=== PATIENT | female | born 1970 | race Caucasian/White ===

== ENCOUNTER 2016-11-11 06:48 | Emergency (ER) | payer OTHER ==
[2016-11-11] MEDS ORDERED: SODIUM CHLORIDE 0.9% 500 ML IV STA (07:19)
[2016-11-11] MEDS ORDERED: SODIUM CHLORIDE 0.9% 1,000 ML IV STA (07:19)
[2016-11-11 07:26] LABS: Glucose,Whole Blood 245 mg/dL (75-99)
--- NOTE | 2016-11-11 07:35 | ED ---
General Adult HPI - General Chief complaint: Altered Mental Status Stated complaint: confusion Time Seen by Provider: 11/11/16 07:14 Source: patient, RN notes reviewed, old records reviewed Mode of arrival: wheelchair Limitations: altered mental status - History of Present Illness Initial comments: This is a 46-year-old female to the ER for evaluation of altered mental status, weakness. Patient's history of CVA, new CVA versus CVA systems symptoms are greater than 2 days old patient. Patient's main complaint appears to be dizziness, lightheadedness and weakness. She states she saw her family doctor 2 days ago, symptoms persisted, she was prescribed an antibiotic but not getting a varix still complaining of drainage and pain in her ears, and just overall weakness. Episodic fevers no chills, no travel history no nausea vomiting or diarrhea. No new specific neurological deficits, no cough congestion, mild sore throat - Related Data Home Medications Medication Instructions Recorded Confirmed metFORMIN HCL 1,000 mg PO BID 05/12/14 07/30/16 Fenofibrate [Lofibra] 160 mg PO HS 03/02/15 07/30/16 Pregabalin [Lyrica] 150 mg PO BID 06/25/15 07/30/16 Atenolol [Tenormin] 50 mg PO HS 01/15/16 07/30/16 Cholecalciferol [Vitamin D3] 5,000 unit PO DAILY 01/15/16 07/30/16 INSULIN LISPRO (humaLOG) [humaLOG See Protocol SQ AC-TID 01/15/16 07/30/16 (formulary)] Insulin Glargine [Lantus] 22 unit SQ HS 01/15/16 07/30/16 ALPRAZolam 1 - 2 mg PO HS 03/24/16 07/30/16 Folic Acid 1 mg PO HS 03/24/16 07/30/16 Aspirin 81 mg PO HS 03/25/16 07/30/16 Atorvastatin [Lipitor] 20 mg PO HS 03/25/16 07/30/16 DULoxetine HCL [Cymbalta] 60 mg PO DAILY 04/13/16 07/30/16 Clopidogrel [Plavix] 75 mg PO HS 07/30/16 07/30/16 HYDROcodone/APAP 10-325MG [[place] 1 tab PO HS PRN 07/30/16 07/30/16 10-325] HYDROcodone/APAP 5-325MG [[place] 5] 1 tab PO TID PRN 07/30/16 07/30/16 Hydrochlorothiazide 25 mg PO DAILY 07/30/16 07/30/16 lamoTRIgine 200 mg PO BID 07/30/16 07/30/16 Previous Rx's Medication Instructions Recorded Citalopram Hydrobromide [CeleXA] 40 mg PO DAILY #1 tab 03/10/15 Lisinopril [Zestril] 5 mg PO DAILY #30 tablet 04/18/16 Amoxic-Pot Clav 875-125Mg 1 tab PO Q12HR #14 tablet 11/11/16 [Augmentin 875-125] Allergies Allergy/AdvReac Type Severity Reaction Status Date / Time Fish Containing Products Allergy Unknown Verified 11/11/16 06:59 Iodinated Contrast Media - Allergy throat Verified 11/11/16 06:59 Oral and swelling [Iodinated Contrast Media - IV Dye] Sulfa (Sulfonamide Allergy throat Verified 11/11/16 06:59 Antibiotics) swelling sulfamethoxazole Allergy throat Verified 11/11/16 06:59 [From Septra] swelling trimethoprim [From Junra] Allergy throat Verified 11/11/16 06:59 swelling NUTS Allergy Unknown Uncoded 11/11/16 06:59 Review of Systems ROS Statement: Those systems with pertinent positive or pertinent negative responses have been documented in the HPI. ROS Other: All systems not noted in ROS Statement are negative. 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 and the patient apparently has been ambulatory, diabetes mellitus insulin-dependent, hypertension, hyperlipidemia, fibromyalgia, obstructive sleep apnea, MS, questionable hypercoagulable disease, anxiety, depression, obesity History of Any Multi-Drug Resistant Organisms: None Reported Past Surgical History: Section, Cholecystectomy, Heart Catheterization With Stent, Hysterectomy, Tubal Ligation, Uterine Ablation Additional Past Surgical History / Comment(s): vein stripping right leg, radio frequency ablation of right back-02/22/2015, four stents on 04/03/16 and one on march 05 Past Anesthesia/Blood Transfusion Reactions: No Reported Reaction Date of Last Stent Placement:: 2003 Past Psychological History: Anxiety, Depression Additional Psychological History / Comment(s): pt. states that she sees a counselor for her depression Smoking Status: Current every day smoker Past Alcohol Use History: None Reported Additional Past Alcohol Use History / Comment(s): Patient is a smoker of a half a pack of cigarettes per day for 25 years. She denies any medical marijuana, marijuana, street drug or alcohol use. Patient is on disability. She lives at home with her and 2 children. She does have a dog in the home. No recent travel. Past Drug Use History: None Reported - Past Family History Father Family Medical History: Congestive Heart Failure (CHF), Coronary Artery Disease (CAD), Diabetes Mellitus Mother Family Medical History: Cancer, Hypertension, Respiratory Disorder Additional Family Medical History / Comment(s): emphysema, colon CA General Exam Limitations: altered mental status General appearance: alert, in no apparent distress Head exam: Present: atraumatic, normocephalic, normal inspection Eye exam: Present: normal appearance, PERRL, EOMI. Absent: scleral icterus, conjunctival injection, periorbital swelling ENT exam: Present: normal exam, mucous membranes moist Neck exam: Present: normal inspection. Absent: tenderness, meningismus, lymphadenopathy Respiratory exam: Present: normal lung sounds bilaterally. Absent: respiratory distress, wheezes, rales, rhonchi, stridor Cardiovascular Exam: Present: regular rate, normal rhythm, normal heart sounds. Absent: systolic murmur, diastolic murmur, rubs, gallop, clicks GI/Abdominal exam: Present: soft, normal bowel sounds. Absent: distended, tenderness, guarding, rebound, rigid Extremities exam: Present: normal inspection, full ROM, normal capillary refill. Absent: tenderness, pedal edema, joint swelling, calf tenderness Back exam: Present: normal inspection Neurological exam: Present: alert, oriented X3, CN II-XII intact Psychiatric exam: Present: normal affect, normal mood Skin exam: Present: warm, dry, intact, normal color. Absent: rash Course Vital Signs 11/11/16 11/11/16 11/11/16 06:53 07:10 08:08 Temperature 98.4 F Pulse Rate 69 64 62 Respiratory 16 18 16 Rate Blood Pressure 180/89 176/86 162/86 O2 Sat by Pulse 99 95 96 Oximetry - Reevaluation(s) Reevaluation #1: 11/11/16 07:35 Patient is not candidate for TPA secondary to CVA symptoms greater than one day Reevaluation #2: 11/11/16 08:55 Patient this time is feeling better EKG Findings - EKG Comments: EKG Findings:: EKG shows normal sinus rhythm rate 67, IN 136; QRS 134, QTc 458 Medical Decision Making - Medical Decision Making 46 female here for evaluation regarding multiple nonspecific symptoms. Patient appears to viral versus possible upper respiratory infection. No new neurological deficit. Patient be discharged home - Lab Data Result diagrams: 11/11/16 07:20 11/11/16 07:20 Lab Results 11/11/16 11/11/16 11/11/16 Range/Units 07:20 07:20 07:20 WBC 11.4 H (3.8-10.6) k/uL RBC 4.73 (3.80-5.40) m/uL Hgb 15.1 (11.4-16.0) gm/dL Hct 44.4 (34.0-46.0) % MCV 93.8 (80.0-100.0) fL MCH 32.0 (25.0-35.0) pg MCHC 34.1 (31.0-37.0) g/dL RDW 13.4 (11.5-15.5) % Plt Count 204 (150-450) k/uL Neutrophils % 64 % Lymphocytes % 27 % Monocytes % 4 % Eosinophils % 1 % Basophils % 2 % Neutrophils # 7.3 (1.3-7.7) k/uL Lymphocytes # 3.1 (1.0-4.8) k/uL Monocytes # 0.5 (0-1.0) k/uL Eosinophils # 0.2 (0-0.7) k/uL Basophils # 0.2 (0-0.2) k/uL PT (9.0-12.0) sec INR (<1.1) APTT (22.0-30.0) sec Sodium 138 (137-145) mmol/L Potassium 4.2 (3.5-5.1) mmol/L Chloride 100 (98-107) mmol/L Carbon Dioxide 23 (22-30) mmol/L Anion Gap 15 mmol/L BUN 18 H (7-17) mg/dL Creatinine 0.88 (0.52-1.04) mg/dL Est GFR (MDRD) Af Amer >60 (>60 ml/min/1.73 sqM) Est GFR (MDRD) Non-Af >60 (>60 ml/min/1.73 sqM) Glucose 258 H (74-99) mg/dL POC Glucose (mg/dL) (75-99) mg/dL POC Glu Rag [place]ow Operator ID Calcium 10.2 (8.4-10.2) mg/dL Phosphorus 3.3 (2.5-4.5) mg/dL Magnesium 1.4 L (1.6-2.3) mg/dL Total Bilirubin 0.4 (0.2-1.3) mg/dL AST 20 (14-36) U/L ALT 27 (9-52) U/L Alkaline Phosphatase 112 (38-126) U/L Total Creatine Kinase 56 (30-135) U/L CK-MB (CK-2) 1.2 (0.0-2.4) ng/mL CK-MB (CK-2) Rel Index 2.1 Troponin I <0.012 (0.000-0.034) ng/mL Total Protein 7.2 (6.3-8.2) g/dL Albumin 4.5 (3.5-5.0) g/dL Urine Color Urine Appearance (Clear) Urine pH (5.0-8.0) Ur Specific [place] (1.001-1.035) Urine Protein (Negative) Urine Glucose (UA) (Negative) Urine Ketones (Negative) Urine Blood (Negative) Urine Nitrate (Negative) Urine Bilirubin (Negative) Urine Urobilinogen (<2.0) mg/dL Ur Leukocyte Esterase (Negative) Urine RBC (0-5) /hpf Urine WBC (0-5) /hpf Ur Squamous Epith Cells (0-4) /hpf Urine Bacteria (None) /hpf Urine Mucus (None) /hpf 11/11/16 11/11/16 11/11/16 Range/Units 07:20 07:21 08:10 WBC (3.8-10.6) k/uL RBC (3.80-5.40) m/uL Hgb (11.4-16.0) gm/dL Hct (34.0-46.0) % MCV (80.0-100.0) fL MCH (25.0-35.0) pg MCHC (31.0-37.0) g/dL RDW (11.5-15.5) % Plt Count (150-450) k/uL Neutrophils % % Lymphocytes % % Monocytes % % Eosinophils % % Basophils % % Neutrophils # (1.3-7.7) k/uL Lymphocytes # (1.0-4.8) k/uL Monocytes # (0-1.0) k/uL Eosinophils # (0-0.7) k/uL Basophils # (0-0.2) k/uL PT 10.8 (9.0-12.0) sec INR 1.1 (<1.1) APTT 29.0 (22.0-30.0) sec Sodium (137-145) mmol/L Potassium (3.5-5.1) mmol/L Chloride (98-107) mmol/L Carbon Dioxide (22-30) mmol/L Anion Gap mmol/L BUN (7-17) mg/dL Creatinine (0.52-1.04) mg/dL Est GFR (MDRD) Af Amer (>60 ml/min/1.73 sqM) Est GFR (MDRD) Non-Af (>60 ml/min/1.73 sqM) Glucose (74-99) mg/dL POC Glucose (mg/dL) 245 H (75-99) mg/dL POC Glu Rag Willow Operator ID Fela, Veronica Calcium (8.4-10.2) mg/dL Phosphorus (2.5-4.5) mg/dL Magnesium (1.6-2.3) mg/dL Total Bilirubin (0.2-1.3) mg/dL AST (14-36) U/L ALT (9-52) U/L Alkaline Phosphatase (38-126) U/L Total Creatine Kinase (30-135) U/L CK-MB (CK-2) (0.0-2.4) ng/mL CK-MB (CK-2) Rel Index Troponin I (0.000-0.034) ng/mL Total Protein (6.3-8.2) g/dL Albumin (3.5-5.0) g/dL Urine Color Yellow Urine Appearance Cloudy H (Clear) Urine pH 5.5 (5.0-8.0) Ur Specific [place] 1.017 (1.001-1.035) Urine Protein Trace H (Negative) Urine Glucose (UA) 4+ H (Negative) Urine Ketones Negative (Negative) Urine Blood Moderate H (Negative) Urine Nitrate Negative (Negative) Urine Bilirubin Negative (Negative) Urine Urobilinogen <2.0 (<2.0) mg/dL Ur Leukocyte Esterase Large H (Negative) Urine RBC 164 H (0-5) /hpf Urine WBC >182 H (0-5) /hpf Ur Squamous Epith Cells 3 (0-4) /hpf Urine Bacteria Rare H (None) /hpf Urine Mucus Rare H (None) /hpf - Radiology Data Radiology results: report reviewed (CT brain, chest x-ray 2 view negative for acute disease), image reviewed Disposition Clinical Impression: URI (upper respiratory infection), Altered mental status, Weakness Disposition: HOME SELF-CARE Condition: Good Instructions: Weakness (ED), Upper Respiratory Infection (ED), Dizziness (ED) Prescriptions: Amoxic-Pot Clav 875-125Mg [Augmentin 875-125] 1 tab PO Q12HR #14 tablet Referrals: Dagmar Hennessy MD [Primary Care Provider] - 1-2 days
[2016-11-11 07:36] LABS: Basophils # (A) 0.2 k/uL (0-0.2); Basophils % (A) 2 %; CH 32.2; CHCM 34.5; Eosinophils # (A) 0.2 k/uL (0-0.7); Eosinophils % (A) 1 %; HCT 44.4 % (34.0-46.0); HDW 2.57; HGB 15.1 gm/dL (11.4-16.0); Luc # (Auto) 0.09; Luc % (Auto) 1; Lymphocytes # (A) 3.1 k/uL (1.0-4.8); Lymphocytes % (A) 27 %; MCHC 34.1 g/dL (31.0-37.0); MCV 93.8 fL (80.0-100.0); Mean Platelet Volume 8.3; Monocytes # (A) 0.5 k/uL (0-1.0); Monocytes % (A) 4 %; Neutrophils # (A) 7.3 k/uL (1.3-7.7); Neutrophils % (A) 64 %; RBC 4.73 m/uL (3.80-5.40); RDW 13.4 % (11.5-15.5); WBC 11.4 k/uL (3.8-10.6); WBC (Perox) 11.42
[2016-11-11 07:44] LABS: INR 1.1 (<1.1); Prothrombin Time 10.8 sec (9.0-12.0)
[2016-11-11 07:46] LABS: ALT 27 U/L (9-52); AST 20 U/L (14-36); Alkaline Phosphatase 112 U/L (38-126); Anion Gap 15 mmol/L; Blood Urea Nitrogen 18 mg/dL (7-17); Calcium 10.2 mg/dL (8.4-10.2); Carbon Dioxide 23 mmol/L (22-30); Chloride 100 mmol/L (98-107); Glucose 258 mg/dL (74-99); Magnesium 1.4 mg/dL (1.6-2.3); Non-African American GFR(MDRD) >60 (>60 ml/min/1.73 sqM); Phosphorous 3.3 mg/dL (2.5-4.5); Potassium 4.2 mmol/L (3.5-5.1); Sodium 138 mmol/L (137-145); Total Bilirubin 0.4 mg/dL (0.2-1.3); Total Protein 7.2 g/dL (6.3-8.2)
--- NOTE | 2016-11-11 07:54 | CT ---
EXAMINATION TYPE: CT brain wo con DATE OF EXAM: 11/11/2016 7:48 AM COMPARISON: 04/13/2016 HISTORY: 46-year-old female with weakness and Confusion TECHNIQUE: Examination was done in axial plane without intravenous contrast. Coronal and sagittal reconstructio ns performed. CT DLP: 1121 mGycm Automated exposure control for dose reduction was used. FINDINGS: There is no evidence of acute intracranial hemorrhage, acute ischemic changes, mass, mass-effect, or extra-axial fluid collection. There is no effacement of cerebral sulci or basal subarachnoid cister ns. There is no hydrocephalus. There is no midline shift. Castro-white matter distinction is preserv ed. Redemonstrated empty sella and slight ex vacuo enlargement of the left lateral ventricle secondary to previous deep white matter infarct on the left. Paranasal sinuses and mastoid air cells are well pneumatized. Orbits and globes are intact. IMPRESSION: No acute intracranial abnormality seen. Old deep white matter infarct on the left.
[2016-11-11 07:55] LABS: Creatine Kinase 56 U/L (30-135)
--- NOTE | 2016-11-11 07:55 | XR ---
EXAMINATION TYPE: XR chest 2V DATE OF EXAM: 11/11/2016 7:48 AM COMPARISON: 04/16/2016 HISTORY: 46-year-old female with weakness TECHNIQUE: Frontal and lateral views FINDINGS: Heart remains upper limits of normal in size. Aorta is within normal limits. Mild interstitial promin ence appears chronic. Some strandy atelectasis of the left base. No consolidation or pleural effusion . IMPRESSION: Chronic changes without acute cardiopulmonary process.
[2016-11-11 08:07] LABS: Creatine Kinase MB 1.2 ng/mL (0.0-2.4); Troponin I <0.012 ng/mL (0.000-0.034)
[2016-11-11 08:50] LABS: Appearance,Urine Cloudy (Clear); Bacteria,Urine Rare /hpf; Bilirubin,Urine Negative (Negative); Glucose,Urine (UA) 4+ (Negative); Ketones,Urine Negative (Negative); Leukocyte Esterase,Urine Large (Negative); Mucus,Urine Rare /hpf; Nitrite,Urine Negative (Negative); PH, Urine 5.5 (5.0-8.0); Particle Count 2017; Protein,Urine Trace (Negative); RBC,Urine 164 /hpf (0-5); Specific Gravity,Urine 1.017 (1.001-1.035); Squamous Epithelial Cell,Urine 3 /hpf (0-4); UA Billing (MACRO vs. MICRO) MICRO; Urobilinogen,Urine <2.0 mg/dL (<2.0); WBC,Urine >182 /hpf (0-5)
[2016-11-11] MEDS ORDERED: AMOXIC-POT CLAV 875-125MG 1 EACH TAB PO STA (08:53)
[2016-11-11] MEDS ORDERED: AMOXIC-POT CLAV 875MG STARTER 2 EACH TABLET PO STA (09:00)
[2016-11-11 09:04] VITALS: BP 180/99; PULSE 68; RESP 17; TEMP 97.4
== END 2016-11-11 09:07 | disposition home or self-care (01) ==
LOC: EC 06:48
DX: J06.9 Acute upper respiratory infection, unspecified (principal); R41.82 Altered mental status, unspecified; R53.1 Weakness; F17.210 Nicotine dependence, cigarettes, uncomplicated; I10 Essential (primary) hypertension; E11.9 Type 2 diabetes mellitus without complications; G35 Multiple sclerosis; I69.351 Hemiplegia and hemiparesis following cerebral infarction affecting right dominant side; M79.7 Fibromyalgia; G25.81 Restless legs syndrome; E78.5 Hyperlipidemia, unspecified; G47.33 Obstructive sleep apnea (adult) (pediatric); I25.10 Atherosclerotic heart disease of native coronary artery without angina pectoris; F32.9 Major depressive disorder, single episode, unspecified; F41.9 Anxiety disorder, unspecified; Z95.5 Presence of coronary angioplasty implant and graft; Z99.89 Dependence on other enabling machines and devices; Z79.02 Long term (current) use of antithrombotics/antiplatelets; Z79.82 Long term (current) use of aspirin; Z79.4 Long term (current) use of insulin; Z79.84 Long term (current) use of oral hypoglycemic drugs; Z88.2 Allergy status to sulfonamides; Z88.1 Allergy status to other antibiotic agents; Z91.041 Radiographic dye allergy status
CPT/HCPCS: 36415; 70450; 71020; 80053; 81001; 82550; 82553; 83735; 84100; 84484; 85025; 85610; 85730; 87086; 93005; 96360; 99285

== ENCOUNTER 2016-11-25 01:49 | Emergency (ER) | payer OTHER ==
[2016-11-25] MEDS ORDERED: FAMOTIDINE 20 MG/2 ML VIAL IV STA (02:00)
[2016-11-25 02:08] VITALS: RESP 16; TEMP 97
[2016-11-25] MEDS ORDERED: RX INFO: IV CONTRAST WAS GIVEN 1 EACH MISC MISCELLANE PRN (02:09)
[2016-11-25 02:10] LABS: Glucose,Whole Blood 197 mg/dL (75-99)
[2016-11-25] MEDS ORDERED: tPA (Alteplase) PER PHARMACY 1 EACH MISC MISCELLANE PRN (02:10)
--- NOTE | 2016-11-25 02:30 | CT ---
EXAMINATION TYPE: CT brain wo con DATE OF EXAM: 11/25/2016 2:23 AM COMPARISON: 11/11/2016 HISTORY: code stroke CT DLP: mGycm Automated exposure control for dose reduction was used. FINDINGS: The ventricles are of normal size. There is no mass effect or midline shift. There is no sign of intr acranial hemorrhage. There is mild hypodensity in the left internal capsule. Calvarium is intact. IMPRESSION: There is evidence of some chronic small vessel ischemia with hypodensity in the left internal capsule that is similar to old exam. No hemorrhage.
[2016-11-25 02:33] LABS: ALT 36 U/L (9-52); AST 39 U/L (14-36); Alkaline Phosphatase 90 U/L (38-126); Anion Gap 13 mmol/L; Blood Urea Nitrogen 13 mg/dL (7-17); Calcium 9.6 mg/dL (8.4-10.2); Carbon Dioxide 22 mmol/L (22-30); Chloride 104 mmol/L (98-107); Glucose 207 mg/dL (74-99); Non-African American GFR(MDRD) >60 (>60 ml/min/1.73 sqM); Potassium 4.7 mmol/L (3.5-5.1); Sodium 139 mmol/L (137-145); Total Bilirubin 0.6 mg/dL (0.2-1.3); Total Protein 7.3 g/dL (6.3-8.2)
--- NOTE | 2016-11-25 02:33 | ED ---
Neuro HPI - General Chief Complaint: Neuro Symptoms/Deficit Stated Complaint: stroke symptoms Time Seen by Provider: 11/25/16 01:49 Source: patient, family, RN notes reviewed Mode of arrival: EMS Limitations: physical limitation - History of Present Illness Is the patient presenting with stroke symptoms?: Yes Last Known Well Date: 11/24/16 Last Known Well Time: 23:45 Initial Comments: This is a 46-year-old female with a prior history of strokes this past year the last one being in June 2016 who had a sudden onset at around 11:45 PM past evening of some left facial droop and right upper or lower extremity weakness. No headache she also did have some chest pain. No other complaints at this time. No trauma no fevers chills sweats - Related Data Home Medications: Home Medications Medication Instructions Recorded Confirmed metFORMIN HCL 1,000 mg PO BID 05/12/14 07/30/16 Fenofibrate [Lofibra] 160 mg PO HS 03/02/15 07/30/16 Pregabalin [Lyrica] 150 mg PO BID 06/25/15 07/30/16 Atenolol [Tenormin] 50 mg PO HS 01/15/16 07/30/16 Cholecalciferol [Vitamin D3] 5,000 unit PO DAILY 01/15/16 07/30/16 INSULIN LISPRO (humaLOG) [humaLOG See Protocol SQ AC-TID 01/15/16 07/30/16 (formulary)] Insulin Glargine [Lantus] 22 unit SQ HS 01/15/16 07/30/16 ALPRAZolam 1 - 2 mg PO HS 03/24/16 07/30/16 Folic Acid 1 mg PO HS 03/24/16 07/30/16 Aspirin 81 mg PO HS 03/25/16 07/30/16 Atorvastatin [Lipitor] 20 mg PO HS 03/25/16 07/30/16 DULoxetine HCL [Cymbalta] 60 mg PO DAILY 04/13/16 07/30/16 Clopidogrel [Plavix] 75 mg PO HS 07/30/16 07/30/16 HYDROcodone/APAP 10-325MG [[place] 1 tab PO HS PRN 07/30/16 07/30/16 10-325] HYDROcodone/APAP 5-325MG [[place] 5] 1 tab PO TID PRN 07/30/16 07/30/16 Hydrochlorothiazide 25 mg PO DAILY 07/30/16 07/30/16 lamoTRIgine 200 mg PO BID 07/30/16 07/30/16 Previous Rx's Medication Instructions Recorded Citalopram Hydrobromide [CeleXA] 40 mg PO DAILY #1 tab 03/10/15 Lisinopril [Zestril] 5 mg PO DAILY #30 tablet 04/18/16 Amoxic-Pot Clav 875-125Mg 1 tab PO Q12HR #14 tablet 11/11/16 [Augmentin 875-125] Allergies/Adverse Reactions: Allergies Allergy/AdvReac Type Severity Reaction Status Date / Time Fish Containing Products Allergy Unknown Verified 11/11/16 06:59 Iodinated Contrast Media - Allergy throat Verified 11/11/16 06:59 Oral and swelling [Iodinated Contrast Media - IV Dye] Sulfa (Sulfonamide Allergy throat Verified 11/11/16 06:59 Antibiotics) swelling sulfamethoxazole Allergy throat Verified 11/11/16 06:59 [From Septra] swelling trimethoprim [From Junra] Allergy throat Verified 11/11/16 06:59 swelling NUTS Allergy Unknown Uncoded 11/11/16 06:59 Review of Systems ROS Statement: Those systems with pertinent positive or pertinent negative responses have been documented in the HPI. ROS Other: All systems not noted in ROS Statement are negative. General Exam - General Exam Comments Initial Comments: This is a well-developed well-nourished awake alert oriented 3 female Limitations: physical limitation General appearance: alert, anxious Head exam: Present: atraumatic, normocephalic Eye exam: Present: normal appearance, PERRL, EOMI. Absent: scleral icterus, conjunctival injection, periorbital swelling ENT exam: Present: TM's normal bilaterally, other Neck exam: Present: normal inspection. Absent: tenderness, meningismus, lymphadenopathy Respiratory exam: Present: normal lung sounds bilaterally. Absent: respiratory distress, wheezes, rales, rhonchi, stridor Cardiovascular Exam: Present: regular rate, normal rhythm, normal heart sounds. Absent: systolic murmur, diastolic murmur, rubs, gallop, clicks GI/Abdominal exam: Present: soft, normal bowel sounds. Absent: distended, tenderness, guarding, rebound, rigid Back exam: Present: normal inspection Neurological exam: Present: alert, oriented X3, motor sensory deficit. Absent: CN II-XII intact Psychiatric exam: Present: normal affect, normal mood Skin exam: Present: warm, dry, intact, normal color. Absent: rash Stroke MDM - Lab Data Result diagrams: 11/25/16 01:58 11/25/16 01:58 Lab Results 11/25/16 11/25/16 11/25/16 Range/Units 01:58 01:58 01:58 WBC 10.8 H (3.8-10.6) k/uL RBC 5.01 (3.80-5.40) m/uL Hgb 15.9 (11.4-16.0) gm/dL Hct 47.2 H (34.0-46.0) % MCV 94.3 (80.0-100.0) fL MCH 31.8 (25.0-35.0) pg MCHC 33.7 (31.0-37.0) g/dL RDW 13.3 (11.5-15.5) % Plt Count 245 (150-450) k/uL Neutrophils % 65 % Lymphocytes % 28 % Monocytes % 4 % Eosinophils % 1 % Basophils % 0 % Neutrophils # 7.0 (1.3-7.7) k/uL Lymphocytes # 3.1 (1.0-4.8) k/uL Monocytes # 0.4 (0-1.0) k/uL Eosinophils # 0.1 (0-0.7) k/uL Basophils # 0.0 (0-0.2) k/uL PT (9.0-12.0) sec INR (<1.1) APTT (22.0-30.0) sec Sodium 139 (137-145) mmol/L Potassium 4.7 (3.5-5.1) mmol/L Chloride 104 (98-107) mmol/L Carbon Dioxide 22 (22-30) mmol/L Anion Gap 13 mmol/L BUN 13 (7-17) mg/dL Creatinine 0.70 (0.52-1.04) mg/dL Est GFR (MDRD) Af Amer >60 (>60 ml/min/1.73 sqM) Est GFR (MDRD) Non-Af >60 (>60 ml/min/1.73 sqM) Glucose 207 H (74-99) mg/dL POC Glucose (mg/dL) (75-99) mg/dL POC Glu Percolator Operator ID Calcium 9.6 (8.4-10.2) mg/dL Total Bilirubin 0.6 (0.2-1.3) mg/dL AST 39 H (14-36) U/L ALT 36 (9-52) U/L Alkaline Phosphatase 90 (38-126) U/L Total Creatine Kinase 71 (30-135) U/L CK-MB (CK-2) 1.1 (0.0-2.4) ng/mL CK-MB (CK-2) Rel Index 1.5 Troponin I 0.019 (0.000-0.034) ng/mL Total Protein 7.3 (6.3-8.2) g/dL Albumin 4.5 (3.5-5.0) g/dL 11/25/16 11/25/16 Range/Units 01:58 02:09 WBC (3.8-10.6) k/uL RBC (3.80-5.40) m/uL Hgb (11.4-16.0) gm/dL Hct (34.0-46.0) % MCV (80.0-100.0) fL MCH (25.0-35.0) pg MCHC (31.0-37.0) g/dL RDW (11.5-15.5) % Plt Count (150-450) k/uL Neutrophils % % Lymphocytes % % Monocytes % % Eosinophils % % Basophils % % Neutrophils # (1.3-7.7) k/uL Lymphocytes # (1.0-4.8) k/uL Monocytes # (0-1.0) k/uL Eosinophils # (0-0.7) k/uL Basophils # (0-0.2) k/uL PT 11.3 (9.0-12.0) sec INR 1.1 (<1.1) APTT 27.0 (22.0-30.0) sec Sodium (137-145) mmol/L Potassium (3.5-5.1) mmol/L Chloride (98-107) mmol/L Carbon Dioxide (22-30) mmol/L Anion Gap mmol/L BUN (7-17) mg/dL Creatinine (0.52-1.04) mg/dL Est GFR (MDRD) Af Amer (>60 ml/min/1.73 sqM) Est GFR (MDRD) Non-Af (>60 ml/min/1.73 sqM) Glucose (74-99) mg/dL POC Glucose (mg/dL) 197 H (75-99) mg/dL POC Glu Percolator Operator ID Maribell Wiggins Calcium (8.4-10.2) mg/dL Total Bilirubin (0.2-1.3) mg/dL AST (14-36) U/L ALT (9-52) U/L Alkaline Phosphatase (38-126) U/L Total Creatine Kinase (30-135) U/L CK-MB (CK-2) (0.0-2.4) ng/mL CK-MB (CK-2) Rel Index Troponin I (0.000-0.034) ng/mL Total Protein (6.3-8.2) g/dL Albumin (3.5-5.0) g/dL - NIH Stroke Scale 1a. Level of Consciousness: (0) alert 1b. LOC Questions: (0) answers correctly 1c. LOC Commands: (1) performs 1 task correctly 2. Best Gaze: (0) normal 3. Visual: (0) no visual loss 4. Facial Palsy: (0) normal symmetrical movement 5a. Motor Arm Left: (0) no drift 5b. Motor Arm Right: (3) no gravity effort 6a. Motor Leg Left: (0) no drift 6b. Motor Leg Right: (3) no gravity effort 7. Limb Ataxia: (1) present 1 limb 8. Sensory: (1) mild/moderate sensory loss 9. Best Language: (0) no aphasia 10. Dysarthria: (0) normal 11. Extinction/Inattention: (0) no abnormality - Thrombolytic Inclusion/Exclusion Thrombolytic Inclusion Criteria: Ischemic Stroke Onset< 3h, Age 18 or Older - Medical Decision Making Patient was a candidate for TPA we did discuss the findings and the patient was evaluated by Dr. Pickard. Patient will be transferred to [facility]. I did discuss the case with Dr. Cabrera who is the accepting ER physician. - EKG Data -: EKG Interpreted by Me EKG shows normal: sinus rhythm (Sinus rhythm a rate of 58 [place] interval 176. 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 and the patient apparently has been ambulatory, diabetes mellitus insulin-dependent, hypertension, hyperlipidemia, fibromyalgia, obstructive sleep apnea, MS, questionable hypercoagulable disease, anxiety, depression, obesity History of Any Multi-Drug Resistant Organisms: None Reported Past Surgical History: Section, Cholecystectomy, Heart Catheterization With Stent, Hysterectomy, Tubal Ligation, Uterine Ablation Additional Past Surgical History / Comment(s): vein stripping right leg, radio frequency ablation of right back-02/22/2015, four stents on 04/03/16 and one on march 05 Past Anesthesia/Blood Transfusion Reactions: No Reported Reaction Date of Last Stent Placement:: 2003 Past Psychological History: Anxiety, Depression Additional Psychological History / Comment(s): pt. states that she sees a counselor for her depression Smoking Status: Current every day smoker Past Alcohol Use History: None Reported Additional Past Alcohol Use History / Comment(s): Patient is a smoker of a half a pack of cigarettes per day for 25 years. She denies any medical marijuana, marijuana, street drug or alcohol use. Patient is on disability. She lives at home with her and 2 children. She does have a dog in the home. No recent travel. Past Drug Use History: None Reported - Past Family History Father Family Medical History: Congestive Heart Failure (CHF), Coronary Artery Disease (CAD), Diabetes Mellitus Mother Family Medical History: Cancer, Hypertension, Respiratory Disorder Additional Family Medical History / Comment(s): emphysema, colon CA Course Vital Signs 11/25/16 02:05 Temperature 97 F L Pulse Rate 62 Respiratory 16 Rate Blood Pressure 213/100 - Reevaluation(s) Reevaluation #1: 11/25/16 03:23 CT showed no major obstruction no evidence of bleed. Patient initially had uncontrolled hypertension which needed IV medication to improve. There is some delay and TPA secondary to the blood pressure. Critical Care Time Critical Care Time: Yes Critical Care Time: 43 minutes which included the initial EMS prehospital report and discussed with paramedics. History physical lab and x-rays as well as CAT scans on the patient. Reevaluation of the patient after returning from CAT scan. Discussion with the patient family regarding the findings and the need for TPA. Discussion with the interventional neurologist. Discussion with the receiving facility. Documentation of the above. Disposition Clinical Impression: Cerebrovascular accident Disposition: OTHER INSTITUTION NOT DEFINED Condition: Serious - Out of Hospital Transfer - Req. Specs Out of Hospital Transfer - Requested Specifics: Other Emergency Center
[2016-11-25 02:36] LABS: INR 1.1 (<1.1); Prothrombin Time 11.3 sec (9.0-12.0)
[2016-11-25 02:39] LABS: Basophils % (A) 0 %; CH 32.3; CHCM 34.4; Eosinophils # (A) 0.1 k/uL (0-0.7); Eosinophils % (A) 1 %; HCT 47.2 % (34.0-46.0); HDW 2.52; HGB 15.9 gm/dL (11.4-16.0); Luc # (Auto) 0.15; Luc % (Auto) 1; Lymphocytes # (A) 3.1 k/uL (1.0-4.8); Lymphocytes % (A) 28 %; MCH 31.8 pg (25.0-35.0); MCHC 33.7 g/dL (31.0-37.0); MCV 94.3 fL (80.0-100.0); Mean Platelet Volume 7.6; Monocytes # (A) 0.4 k/uL (0-1.0); Monocytes % (A) 4 %; Neutrophils % (A) 65 %; RBC 5.01 m/uL (3.80-5.40); RDW 13.3 % (11.5-15.5); WBC 10.8 k/uL (3.8-10.6); WBC (Perox) 10.68
[2016-11-25] MEDS ORDERED: ALTEPLASE BOLUS 9 MG in EMPTY BAG 1 BAG IV STA (02:47)
[2016-11-25] MEDS ORDERED: ALTEPLASE 81 MG in EMPTY BAG 1 BAG IV STA (02:47)
[2016-11-25 02:49] LABS: Creatine Kinase MB 1.1 ng/mL (0.0-2.4); Troponin I 0.019 ng/mL (0.000-0.034)
[2016-11-25] MEDS ORDERED: LABETALOL SYRINGE 5 MG/ML IVP STA (03:00)
--- NOTE | 2016-11-25 03:13 | CT ---
EXAMINATION TYPE: CT angio head neck DATE OF EXAM: 11/25/2016 3:02 AM COMPARISON: NONE HISTORY: code stroke CT DLP: head:1098.80 body:401.20 mGycm Automated exposure control for dose reduction was used. TECHNIQUE: Performed with IV Contrast, patient injected with 100 mL of Omnipaque 350. . Multiple axial sections were obtained from the aortic arch to the vertex of the brain with intraven ous contrast. There are 3-D post processed images. FINDINGS: There is bilateral contrast opacification of the vertebral arteries. There is normal branching patter n of the great vessels on the aortic arch. There is bilateral patency of the common internal and exte rnal carotid arteries. There is patency of the vertebral arteries. There is 25% stenosis at the origi n of the left internal carotid artery. The right internal carotid artery is widely patent. There is patency of the vertebrobasilar artery system. There is arterial flow in the anterior middle and posterior cerebral arteries. There is no evidence of an aneurysm. There is no mass effect. There is normal appearance of the venous sinuses. IMPRESSION: NO SIGNIFICANT ABNORMALITY. THERE IS 25% STENOSIS AT THE ORIGIN OF THE LEFT INTERNAL CAROTID ARTERY. NO DEMONSTRATED INTRACRANIAL ABNORMALITY.
[2016-11-25] MEDS ORDERED: methylPREDNISolone SOD SUCCI 125 MG/2 ML VIAL IV STA (03:14)
[2016-11-25] MEDS ORDERED: diphenhydrAMINE 50 MG/ML 1 ML VIAL IVP STA (03:15)
[2016-11-25 03:48] VITALS: BP 179/87; PULSE 69
--- NOTE | 2016-11-25 03:54 | XR ---
EXAMINATION TYPE: XR chest 1V portable DATE OF EXAM: 11/25/2016 3:24 AM COMPARISON: 11/11/2016 HISTORY: Cough TECHNIQUE: Single frontal view of the chest is obtained. FINDINGS: Heart and mediastinum are normal. Lungs are clear. Diaphragm is normal. There are chest le ads. IMPRESSION: Normal chest. No change.
== END 2016-11-25 04:05 | disposition other institution (70) ==
LOC: EC 01:49
DX: I63.9 Cerebral infarction, unspecified (principal); R53.1 Weakness; R29.810 Facial weakness; I10 Essential (primary) hypertension; Z79.899 Other long term (current) drug therapy; Z79.4 Long term (current) use of insulin; Z91.041 Radiographic dye allergy status; Z85.41 Personal history of malignant neoplasm of cervix uteri; Z95.5 Presence of coronary angioplasty implant and graft; M79.7 Fibromyalgia; I25.10 Atherosclerotic heart disease of native coronary artery without angina pectoris; G47.33 Obstructive sleep apnea (adult) (pediatric); G25.81 Restless legs syndrome; E78.5 Hyperlipidemia, unspecified; E11.9 Type 2 diabetes mellitus without complications; F17.210 Nicotine dependence, cigarettes, uncomplicated; F41.9 Anxiety disorder, unspecified; F32.9 Major depressive disorder, single episode, unspecified; Z86.73 Personal history of transient ischemic attack (TIA), and cerebral infarction without residual deficits; Z79.82 Long term (current) use of aspirin; Z88.2 Allergy status to sulfonamides; Z88.1 Allergy status to other antibiotic agents
CPT/HCPCS: 36415; 93005; 80053; 82550; 82553; 84484; 85025; 85610; 85730; 71010; 70496; 70450; 70498; 99291; 96374; 96375; 96376; J2997; J1200; J2930; Q9967

== ENCOUNTER → 2016-12-17 | Outpatient (CLI) | payer OTHER ==
[2016-12-17 11:16] LABS: Appearance,Urine Clear (Clear); Bilirubin,Urine Negative (Negative); Glucose,Urine (UA) Trace (Negative); Ketones,Urine Negative (Negative); Leukocyte Esterase,Urine Negative (Negative); Nitrite,Urine Negative (Negative); PH, Urine 5.5 (5.0-8.0); Protein,Urine Negative (Negative); Specific Gravity,Urine 1.008 (1.001-1.035); UA Billing (MACRO vs. MICRO) CHEM; Urobilinogen,Urine <2.0 mg/dL (<2.0)
[2016-12-17 11:17] LABS: CH 32.4; HCT 48.5 % (34.0-46.0); HDW 2.76; HGB 15.8 gm/dL (11.4-16.0); MCH 31.3 pg (25.0-35.0); MCHC 32.6 g/dL (31.0-37.0); MCV 95.8 fL (80.0-100.0); Mean Platelet Volume 7.8; RBC 5.07 m/uL (3.80-5.40); RDW 13.4 % (11.5-15.5); WBC 9.6 k/uL (3.8-10.6)
[2016-12-17 11:56] LABS: Anion Gap 13 mmol/L; Blood Urea Nitrogen 16 mg/dL (7-17); Calcium 10.1 mg/dL (8.4-10.2); Carbon Dioxide 25 mmol/L (22-30); Chloride 102 mmol/L (98-107); Glucose 206 mg/dL (74-99); Iron 98 ug/dL (37-170); Magnesium 1.5 mg/dL (1.6-2.3); Non-African American GFR(MDRD) >60 (>60 ml/min/1.73 sqM); Phosphorous 3.8 mg/dL (2.5-4.5); Potassium 4.6 mmol/L (3.5-5.1); Sodium 140 mmol/L (137-145); Uric Acid 3.4 mg/dL (3.7-7.4)
[2016-12-17 12:05] LABS: % Iron Saturation 24.9 % (20-50); Total Iron Binding Capacity 394 ug/dL (265-497)
== END | disposition home or self-care (01) ==
LOC: LABWHC1 10:54
PROVIDERS: ATTEND Nurse Practitioner Family
DX: N17.9 Acute kidney failure, unspecified (principal); G81.91 Hemiplegia, unspecified affecting right dominant side; D64.9 Anemia, unspecified; N39.0 Urinary tract infection, site not specified; E83.42 Hypomagnesemia; E21.3 Hyperparathyroidism, unspecified; E55.9 Vitamin D deficiency, unspecified; M10.9 Gout, unspecified; I67.9 Cerebrovascular disease, unspecified; E11.9 Type 2 diabetes mellitus without complications; R73.9 Hyperglycemia, unspecified; I10 Essential (primary) hypertension
CPT/HCPCS: 36415; 80048; 81003; 82306; 82728; 83540; 83550; 83735; 83970; 84100; 84550; 84681; 85027

== ENCOUNTER 2017-03-27 10:49 | Observation (INO) | payer OTHER ==
[2017-03-27] MEDS ORDERED: ASPIRIN 81 MG CHEW PO STA (11:30)
[2017-03-27] MEDS ORDERED: NITROGLYCERIN OINT 1 INCH/GM PACKET TOPICAL STA (11:30)
--- NOTE | 2017-03-27 12:00 | XR ---
EXAMINATION TYPE: XR chest 2V DATE OF EXAM: 03/27/2017 COMPARISON: Chest x-ray November 25, 2016 HISTORY: Chest pain and shortness of breath TECHNIQUE: Frontal and lateral views of the chest are obtained. FINDINGS: There is no focal air space opacity, pleural effusion, or pneumothorax seen. The cardiac silhouette size is upper limits of normal. The osseous structures are intact. IMPRESSION: No acute cardiopulmonary process.
--- NOTE | 2017-03-27 12:05 | ED ---
General Adult HPI - General Chief complaint: Chest Pain Stated complaint: CHEST PAIN Time Seen by Provider: 03/27/17 10:50 Source: patient, RN notes reviewed Mode of arrival: wheelchair Limitations: no limitations - History of Present Illness Initial comments: This is a 46-year-old female who presents to the emergency department with past medical history significant for diabetes hypertension high cholesterol. Patient also has a history of coronary artery disease to heart attacks and 5 stents. Patient presents today with 45 minutes of chest pain. Patient states it radiates down the left arm. Patient states that she also had some soreness shortness of breath and nausea. Patient denies any diaphoresis patient denies any vomiting. Patient denies abdominal pain patient denies any recent history of fever chills or cough. Patient denies being lightheaded dizzy or having a near-syncopal episode. Patient denies headache patient denies numbness weakness. Patient denies any back pain or neck pain. Patient denies any swelling to her legs or calf pain. - Related Data Home Medications Medication Instructions Recorded Confirmed metFORMIN HCL 1,000 mg PO BID 05/12/14 03/27/17 Fenofibrate [Lofibra] 160 mg PO HS 03/02/15 03/27/17 Pregabalin [Lyrica] 150 mg PO BID 06/25/15 03/27/17 Atenolol [Tenormin] 50 mg PO HS 01/15/16 03/27/17 Cholecalciferol [Vitamin D3] 5,000 unit PO DAILY 01/15/16 03/27/17 INSULIN LISPRO (humaLOG) [humaLOG See Protocol SQ AC-TID 01/15/16 03/27/17 (formulary)] Insulin Glargine [Lantus] 22 unit SQ HS 01/15/16 03/27/17 Folic Acid 1 mg PO HS 03/24/16 03/27/17 Atorvastatin [Lipitor] 20 mg PO HS 03/25/16 03/27/17 DULoxetine HCL [Cymbalta] 60 mg PO DAILY 04/13/16 03/27/17 Clopidogrel [Plavix] 75 mg PO HS 07/30/16 03/27/17 lamoTRIgine 200 mg PO BID 07/30/16 03/27/17 ALPRAZolam [Xanax] 0.5 mg PO DAILY PRN 03/27/17 03/27/17 Albuterol Nebulized [Ventolin 2.5 mg INHALATION RT-Q4H PRN 03/27/17 03/27/17 Nebulized] Aspirin EC [Ecotrin] 325 mg PO DAILY 03/27/17 03/27/17 Cyanocobalamin (Vitamin B-12) 1,000 mcg PO DAILY 03/27/17 03/27/17 [Vitamin B-12] Hydrocodone/Acetaminophen [[place] 1 tab PO Q6H PRN 03/27/17 03/27/17 7.5-325 Tablet] Isosorbide Mononitrate ER [Imdur] 30 mg PO DAILY 03/27/17 03/27/17 Lisinopril [Prinivil] 20 mg PO DAILY 03/27/17 03/27/17 Magnesium Gluconate [Magonate] 500 mg PO DAILY 03/27/17 03/27/17 Vitamin B Complex 1 cap PO DAILY 03/27/17 03/27/17 Previous Rx's Medication Instructions Recorded Citalopram Hydrobromide [CeleXA] 40 mg PO DAILY #1 tab 03/10/15 Allergies Allergy/AdvReac Type Severity Reaction Status Date / Time Fish Containing Products Allergy Unknown Verified 03/27/17 12:08 Iodinated Contrast Media - Allergy throat Verified 03/27/17 12:08 Oral and swelling [Iodinated Contrast Media - IV Dye] Sulfa (Sulfonamide Allergy throat Verified 03/27/17 12:08 Antibiotics) swelling sulfamethoxazole Allergy throat Verified 03/27/17 12:08 [From Septra] swelling trimethoprim [From Junra] Allergy throat Verified 03/27/17 12:08 swelling NUTS Allergy Unknown Uncoded 03/27/17 11:09 Review of Systems ROS Statement: Those systems with pertinent positive or pertinent negative responses have been documented in the HPI. ROS Other: All systems not noted in ROS Statement are negative. 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 and the patient apparently has been ambulatory, diabetes mellitus insulin-dependent, hypertension, hyperlipidemia, fibromyalgia, obstructive sleep apnea, MS, questionable hypercoagulable disease, anxiety, depression, obesity History of Any Multi-Drug Resistant Organisms: None Reported Past Surgical History: Section, Cholecystectomy, Heart Catheterization With Stent, Hysterectomy, Tubal Ligation, Uterine Ablation Additional Past Surgical History / Comment(s): vein stripping right leg, radio frequency ablation of right back-02/22/2015, four stents on 04/03/16 and one on march 05 Past Anesthesia/Blood Transfusion Reactions: No Reported Reaction Date of Last Stent Placement:: 2003 Past Psychological History: Anxiety, Depression Additional Psychological History / Comment(s): pt. states that she sees a counselor for her depression Smoking Status: Current every day smoker Past Alcohol Use History: None Reported Additional Past Alcohol Use History / Comment(s): Patient is a smoker of a half a pack of cigarettes per day for 25 years. She denies any medical marijuana, marijuana, street drug or alcohol use. Patient is on disability. She lives at home with her and 2 children. She does have a dog in the home. No recent travel. Past Drug Use History: None Reported - Past Family History Father Family Medical History: Congestive Heart Failure (CHF), Coronary Artery Disease (CAD), Diabetes Mellitus Mother Family Medical History: Cancer, Hypertension, Respiratory Disorder Additional Family Medical History / Comment(s): emphysema, colon CA General Exam - General Exam Comments Initial Comments: GENERAL: Patient is well-developed and well-nourished. Patient is nontoxic and well- hydrated and is in mild distress. ENT: Neck is soft and supple. No significant lymphadenopathy is noted. Oropharynx is clear. Moist mucous membranes. Neck has full range of motion without eliciting any pain. EYES: The sclera were anicteric and conjunctiva were pink and moist. Extraocular movements were intact and pupils were equal round and reactive to light. Eyelids were unremarkable. PULMONARY: Unlabored respirations. Good breath sounds bilaterally. No audible rales rhonchi or wheezing was noted. CARDIOVASCULAR: There is a regular rate and rhythm without any murmurs gallops or rubs. ABDOMEN: Soft and nontender with normal bowel sounds. No palpable organomegaly was noted. There is no palpable pulsatile mass. SKIN: Skin is clear with no lesions or rashes and otherwise unremarkable. NEUROLOGIC: Patient is alert and oriented x3. Cranial nerves II through XII are grossly intact. Motor and sensory are also intact. Normal speech, volume and content. Symmetrical smile. MUSCULOSKELETAL: Normal extremities with adequate strength and full range of motion. LYMPHATICS: No significant lymphadenopathy is noted PSYCHIATRIC: Normal psychiatric evaluation. Normal interpersonal interactions appears functionally intact in deals appropriately with others. No signs of depression. No signs of anxiety. Limitations: no limitations Course Vital Signs 03/27/17 03/27/17 03/27/17 11:08 12:14 12:50 Temperature 98.6 F Pulse Rate 74 63 72 Respiratory 20 18 18 Rate Blood Pressure 138/77 139/78 135/66 O2 Sat by Pulse 99 95 98 Oximetry Medical Decision Making - Medical Decision Making EKG shows normal sinus rhythm at 72 bpm OR interval is 186 QRS is under 26 QT interval 4:30 QTC is 470. Patient's EKG compared to an old EKG shows no acute changes. Patient has a left bundle branch block. Patient's chest x-ray shows no acute abnormality. I started the patient on heparin because of her significant symptoms past medical history in the diagnosis of unstable angina. I spoke with Dr. Sanchez admitted the patient I wrote a being orders consult for cardiology and continue the heparin Nitropaste and aspirin on the floor. - Lab Data Result diagrams: 03/27/17 11:35 Lab Results 03/27/17 03/27/17 03/27/17 Range/Units 11:35 11:35 11:35 PT 12.0 (9.0-12.0) sec INR 1.2 (<1.1) APTT 27.8 (22.0-30.0) sec Sodium 136 L (137-145) mmol/L Potassium 5.0 (3.5-5.1) mmol/L Chloride 102 (98-107) mmol/L Carbon Dioxide 22 (22-30) mmol/L Anion Gap 12 mmol/L BUN 15 (7-17) mg/dL Creatinine 0.70 (0.52-1.04) mg/dL Est GFR (MDRD) Af Amer >60 (>60 ml/min/1.73 sqM) Est GFR (MDRD) Non-Af >60 (>60 ml/min/1.73 sqM) Glucose 261 H (74-99) mg/dL Calcium 10.0 (8.4-10.2) mg/dL Magnesium 1.3 L (1.6-2.3) mg/dL Total Bilirubin 0.9 (0.2-1.3) mg/dL AST 41 H (14-36) U/L ALT 33 (9-52) U/L Alkaline Phosphatase 96 (38-126) U/L Total Creatine Kinase 71 (30-135) U/L CK-MB (CK-2) 1.3 (0.0-2.4) ng/mL CK-MB (CK-2) Rel Index 1.8 Troponin I <0.012 (0.000-0.034) ng/mL Total Protein 7.4 (6.3-8.2) g/dL Albumin 4.6 (3.5-5.0) g/dL Critical Care Time Critical Care Time: Yes Total Critical Care Time: 35 Disposition Clinical Impression: Unstable angina Disposition: ADMITTED IP TO THIS HOSP Referrals: Dagmar Hennessy MD [Primary Care Provider] - 1-2 days Time of Disposition: 13:44
[2017-03-27 12:06] LABS: ALT 33 U/L (9-52); AST 41 U/L (14-36); Alkaline Phosphatase 96 U/L (38-126); Anion Gap 12 mmol/L; Blood Urea Nitrogen 15 mg/dL (7-17); Carbon Dioxide 22 mmol/L (22-30); Chloride 102 mmol/L (98-107); Glucose 261 mg/dL (74-99); Magnesium 1.3 mg/dL (1.6-2.3); Non-African American GFR(MDRD) >60 (>60 ml/min/1.73 sqM); Sodium 136 mmol/L (137-145); Total Bilirubin 0.9 mg/dL (0.2-1.3); Total Protein 7.4 g/dL (6.3-8.2)
[2017-03-27 12:27] LABS: Creatine Kinase 71 U/L (30-135)
[2017-03-27 12:38] LABS: Creatine Kinase MB 1.3 ng/mL (0.0-2.4); Troponin I <0.012 ng/mL (0.000-0.034)
[2017-03-27 13:14] LABS: INR 1.2 (<1.1); Partial Thromboplastin Time 27.8 sec (22.0-30.0)
[2017-03-27] MEDS ORDERED: HEPARIN SODIUM,PORCINE 5,000 UNIT/ML 1 ML VIAL IV ONE (13:42)
[2017-03-27] MEDS ORDERED: NITROGLYCERIN SL TABS 0.4 MG TAB SUBLINGUAL PRN (13:44)
[2017-03-27] MEDS ORDERED: HEPARIN SODIUM,PORCINE/D5W PMX 25,000 UNIT in DEXTROSE/WATER 1 500ML.BAG IV SCH (13:45)
[2017-03-27 14:19] LABS: Basophils # (A) 0.1 k/uL (0-0.2); Basophils % (A) 1 %; CH 32.7; CHCM 34.9; Eosinophils # (A) 0.1 k/uL (0-0.7); Eosinophils % (A) 1 %; HCT 42.5 % (34.0-46.0); HDW 2.66; HGB 14.7 gm/dL (11.4-16.0); Luc # (Auto) 0.13; Luc % (Auto) 1; Lymphocytes % (A) 26 %; MCH 32.7 pg (25.0-35.0); MCHC 34.7 g/dL (31.0-37.0); MCV 94.2 fL (80.0-100.0); Monocytes # (A) 0.4 k/uL (0-1.0); Monocytes % (A) 4 %; Neutrophils # (A) 7.6 k/uL (1.3-7.7); Neutrophils % (A) 67 %; RBC 4.51 m/uL (3.80-5.40); RDW 13.7 % (11.5-15.5); WBC 11.4 k/uL (3.8-10.6); WBC (Perox) 10.88
[2017-03-27] MEDS ORDERED: ALPRAZolam 0.5 MG TAB PO PRN (16:03)
[2017-03-27] MEDS ORDERED: HYDROcodone/APAP 7.5-325MG 1 EACH TAB PO PRN (16:03)
[2017-03-27] MEDS ORDERED: ALBUTEROL NEBULIZED 2.5 MG/3 ML INHALATION PRN (16:03)
[2017-03-27] MEDS: INSULIN LISPRO (humaLOG) 300 UNIT/3 ML VIAL SQ SCH ×2 (17:39→21:17)
[2017-03-27] MEDS: metFORMIN 500 MG TAB PO SCH (18:01)
[2017-03-27] MEDS: NITROGLYCERIN OINT 1 INCH/GM PACKET TOPICAL SCH (18:02)
[2017-03-27 18:18] LABS: Creatine Kinase 53 U/L (30-135)
[2017-03-27 18:31] LABS: Creatine Kinase MB 0.9 ng/mL (0.0-2.4); Troponin I <0.012 ng/mL (0.000-0.034)
[2017-03-27] MEDS: FOLIC ACID 1 MG TAB PO SCH (20:05)
[2017-03-27] MEDS: ATENOLOL 50 MG TAB PO SCH (20:05)
[2017-03-27] MEDS: FENOFIBRATE 160 MG TAB PO SCH (20:06)
[2017-03-27] MEDS: CLOPIDOGREL 75 MG TAB PO SCH (20:06)
[2017-03-27] MEDS: lamoTRIgine 100 MG TAB PO SCH (20:06)
[2017-03-27 20:43] LABS: Glucose,Whole Blood 179 mg/dL (75-99)
[2017-03-27] MEDS ORDERED: INSULIN GLARGINE 100 UNIT/ML 10 ML VIAL SQ SCH ×2 (21:00→21:44)
[2017-03-27] MEDS ORDERED: ATORVASTATIN 20 MG TAB PO SCH (21:00)
[2017-03-27] MEDS: PREGABALIN 75 MG CAP PO SCH (21:17)
[2017-03-27 23:22] LABS: Creatine Kinase 57 U/L (30-135)
[2017-03-27 23:33] LABS: Creatine Kinase MB 1.1 ng/mL (0.0-2.4); Troponin I <0.012 ng/mL (0.000-0.034)
[2017-03-28] MEDS: NITROGLYCERIN OINT 1 INCH/GM PACKET TOPICAL SCH ×4 (00:22→18:33)
[2017-03-28 07:01] LABS: Glucose,Whole Blood 130 mg/dL (75-99)
[2017-03-28 07:44] LABS: Cholesterol 130 mg/dL (<200); HDL Cholesterol 32 mg/dL (40-60); Triglycerides 300 mg/dL (<150)
[2017-03-28] MEDS ORDERED: DOBUTamine DRIP for NUC MED 500 MG in DEXTROSE/WATER 1 250ML.BAG IV ONE (08:15)
--- NOTE | 2017-03-28 08:45 | CONS ---
DATE OF CONSULTATION: CHIEF COMPLAINT: Chest pain. Leticia is a 46-year-old lady with history of coronary artery disease, status post prior angioplasty, hypertension, dyslipidemia, insulin-requiring diabetes, who sees a internal controls manager in [place], came to hospital complaining of chest pain. She describes it as a precordial chest pressure that did not radiate to neck, arm or back, was somewhat short of breath, but did not have any diaphoresis. Since admission, the pain had gradually resolved. EKG does not reveal ischemic changes and cardiac enzymes have been negative. Given the known CAD and her symptoms, I advised her to undergo invasive angiography for further evaluation. Understanding risks and benefits, she wishes to have a stress test done and if the stress test is abnormal, then consider cardiac catheterization. Past medical history is significant for CAD, status post angioplasty, hypertension, dyslipidemia, [id number] diabetes. Medications at home include aspirin, Tenormin, Lipitor, Celexa, Plavix, Cymbalta, Lofibra, insulin, Imdur, Prinivil, Lyrica, metformin, vitamin B, Xanax, Ventolin, [place], insulin. MULTIPLE ALLERGIES: They are charted and I noted them. FAMILY HISTORY: Significant for premature coronary artery disease. SOCIAL HISTORY: Negative for current smoking, EtOH abuse, or drug abuse. REVIEW OF SYSTEMS: HEENT is unremarkable. CARDIAC: As described above. RESPIRATORY: Negative. GI: Negative. GENITOURINARY: Negative. ALLERGY/IMMUNOLOGY: Negative. MUSCULOSKELETAL: Significant for arthritis. PSYCHOSOCIAL: Negative. DERMATOLOGY: Negative. CONSTITUTIONAL: Negative. ONCOLOGICAL: Negative. The rest of the system review is not relevant. On exam, patient is comfortable at rest. Vital signs are stable. There is no jugular venous distention. Carotid upstroke is normal. There is no bruit. Her blood pressure is elevated at 185/89. There is no jugular venous distension, carotid upstroke is normal. There is no bruit. Chest exam reveals good air entry bilaterally. Heart exam reveals first and second heart sounds. No gallop. No murmur. Abdomen is soft. Exam of the extremities did not reveal any edema. Peripheral pulses are palpable. ASSESSMENT: 1. Chest pain, rule out ischemia in a patient with known coronary artery disease, status post prior angioplasty. 2. Uncontrolled hypertension. 3. Insulin-requiring diabetes. PLAN: I am going to add Norvasc 10 mg daily and Catapres 0.5 t.i.d. for more optimal control of her blood pressure and do a stress test on her as per her wishes.
[2017-03-28] MEDS ORDERED: ISOSORBIDE MONONITRATE ER 30 MG TAB.ER.24H PO SCH (09:00)
[2017-03-28] MEDS ORDERED: ASPIRIN 325 MG TAB PO SCH (09:00)
[2017-03-28] MEDS: INSULIN LISPRO (humaLOG) 300 UNIT/3 ML VIAL SQ SCH ×4 (09:11→20:59)
[2017-03-28] MEDS: amLODIPine 10 MG TAB PO SCH (09:12)
[2017-03-28] MEDS: hydrALAZINE HCL 50 MG TAB PO SCH ×3 (09:12→19:41)
--- NOTE | 2017-03-28 10:24 | ECHOF ---
Referral Reason:cp MEASUREMENTS -------- HEIGHT: 167.6 cm WEIGHT: 103.9 kg BP: 144/84 RVIDd: 3.1 cm (< 3.3) IVSd: 1.9 cm (0.6 - 1.1) LVIDd: 5.0 cm (3.9 - 5.3) LVPWd: 1.5 cm (0.6 - 1.1) IVSs: 2.2 cm LVIDs: 4.2 cm LVPWs: 1.7 cm LA Diam: 3.6 cm (2.7 - 3.8) LAESV Index (A-L): 35.23 ml/m Ao Diam: 3.8 cm (2.0 - 3.7) AV Cusp: 2.6 cm (1.5 - 2.6) MV EXCURSION: 16.312 mm (> 18.000) MV EF SLOPE: 69 mm/s (70 - 150) EPSS: 1.1 cm MV E Cali: 0.79 m/s MV DecT: 318 ms MV A Cali: 0.84 m/s MV E/A Ratio: 0.94 FINDINGS -------- Sinus rhythm. This was a technically good study. The left ventricular size is normal. There is severe concentric left ventricular hypertrophy. Overall left ventricular systolic function is normal with, an EF between 60 - 65 %. The right ventricle is normal in size and function. LA is midly dilated 29-33ml/m2. The right atrium is normal in size. The aortic valve is trileaflet and appears structurally normal. There is trace mitral regurgitation. Trace tricuspid regurgitation present. The pulmonic valve was not well visualized. The aortic root is dilated measuring 3.8cm. Normal inferior vena cava with normal inspiratory collapse consistent with estimated right atrial pressure of 5 mmHg. The pericardium is normal. CONCLUSIONS -------- 1. Sinus rhythm. 2. There is trace mitral regurgitation. 3. Trace tricuspid regurgitation present. 4. The pulmonic valve was not well visualized. 5. The aortic root is dilated measuring 3.8cm. 6. Normal inferior vena cava with normal inspiratory collapse consistent with estimated right atrial pressure of 5 mmHg. 7. The pericardium is normal. 8. This was a technically good study. 9. The left ventricular size is normal. 10. There is severe concentric left ventricular hypertrophy. 11. Overall left ventricular systolic function is normal with, an EF between 60 - 65 %. 12. The right ventricle is normal in size and function. 13. LA is midly dilated 29-33ml/m2. 14. The right atrium is normal in size. 15. The aortic valve is trileaflet and appears structurally normal. LOCAL SALES ASSOCIATE: Reema Crow RDCS
[2017-03-28] MEDS ORDERED: ATROPINE SULFATE 0.1 MG/ML 10ML SYRINGE ONE ×2 (12:39→12:45)
[2017-03-28] MEDS ORDERED: METOPROLOL TARTRATE 5 MG/5 ML VIAL IVP ONE (12:45)
[2017-03-28 13:04] LABS: Glucose,Whole Blood 146 mg/dL (75-99)
--- NOTE | 2017-03-28 13:23 | P.HPIM ---
History of Present Illness H&P Date: 03/28/17 Chief Complaint: Chest pain This is a 46-year-old female with past medical history significant for underlying coronary artery disease with prior angioplasty and stent placement last in April 2016, essential hypertension, type 2 diabetes mellitus, and hyperlipidemia who presented to the emergency room with chest pain. Patient said that the pain was mostly on the left side of her chest radiating to her neck and arm. Her pain started all of a sudden. She felt slightly short of breath. She was evaluated in the emergency room and 12-lead EKG showed no acute ischemic changes. Initial troponin was negative. She was noted to have uncontrolled blood pressure. She was seen and evaluated by cardiology and her regimen was adjusted. Plan is to obtain stress test. She is currently chest pain-free Review of Systems Review of system: 14 points review of systems were obtained and were negative except to what were mentioned in the HPI. 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 andper pt' s spouse- slight foot drag when tired.diabetes mellitus insulin-dependent, hypertension, hyperlipidemia, fibromyalgia, obstructive sleep apnea, MS, questionable hypercoagulable disease, anxiety, depression, obesity Last Myocardial Infarction Date:: unk History of Any Multi-Drug Resistant Organisms: None Reported Past Surgical History: Section, Cholecystectomy, Heart Catheterization With Stent, Hysterectomy, Tubal Ligation, Uterine Ablation Additional Past Surgical History / Comment(s): vein stripping right leg, radio frequency ablation of right back-02/22/2015, four stents on 04/03/16 and one on march 05 Past Anesthesia/Blood Transfusion Reactions: Motion Sickness Additional Past Anesthesia/Blood Transfusion Reaction / Comment(s): mild clausterphobia Date of Last Stent Placement:: 2003 Past Psychological History: Anxiety, Depression Additional Psychological History / Comment(s): at time of s charting pt denies any thoughts of wanting to harm self. pt lives with her spouse. pets: 1 dog. lives in a single story home that has 3 front steps , 2 back steps. pt has a cane.walker, w/c uses as needed. denies any recent falls. Smoking Status: Current every day smoker Past Alcohol Use History: None Reported Additional Past Alcohol Use History / Comment(s): Patient is a smoker of a half a pack of cigarettes per day for 25 years. She denies any medical marijuana, marijuana, street drug or alcohol use. Patient is on disability. She lives at home with her and 2 children. She does have a dog in the home. No recent travel. Past Drug Use History: None Reported - Past Family History Father Family Medical History: Congestive Heart Failure (CHF), Coronary Artery Disease (CAD), Diabetes Mellitus Mother Family Medical History: Cancer, Hypertension, Respiratory Disorder Additional Family Medical History / Comment(s): emphysema, colon CA Medications and Allergies Home Medications Medication Instructions Recorded Confirmed Type metFORMIN HCL 1,000 mg PO BID 05/12/14 03/27/17 History Fenofibrate [Lofibra] 160 mg PO HS 03/02/15 03/27/17 History Pregabalin [Lyrica] 150 mg PO BID 06/25/15 03/27/17 History Atenolol [Tenormin] 50 mg PO HS 01/15/16 03/27/17 History Cholecalciferol [Vitamin D3] 5,000 unit PO DAILY 01/15/16 03/27/17 History INSULIN LISPRO (humaLOG) [humaLOG See Protocol SQ AC-TID 01/15/16 03/27/17 History (formulary)] Insulin Glargine [Lantus] 38 unit SQ HS 01/15/16 03/27/17 History Folic Acid 1 mg PO HS 03/24/16 03/27/17 History Atorvastatin [Lipitor] 20 mg PO HS 03/25/16 03/27/17 History DULoxetine HCL [Cymbalta] 60 mg PO DAILY 04/13/16 03/27/17 History Clopidogrel [Plavix] 75 mg PO HS 07/30/16 03/27/17 History lamoTRIgine 200 mg PO BID 07/30/16 03/27/17 History ALPRAZolam [Xanax] 0.5 mg PO DAILY PRN 03/27/17 03/27/17 History Albuterol Nebulized [Ventolin 2.5 mg INHALATION RT-Q4H PRN 03/27/17 03/27/17 History Nebulized] Aspirin EC [Ecotrin] 325 mg PO DAILY 03/27/17 03/27/17 History Cyanocobalamin (Vitamin B-12) 1,000 mcg PO DAILY 03/27/17 03/27/17 History [Vitamin B-12] Hydrocodone/Acetaminophen [[place] 1 tab PO Q6H PRN 03/27/17 03/27/17 History 7.5-325 Tablet] Isosorbide Mononitrate ER [Imdur] 30 mg PO DAILY 03/27/17 03/27/17 History Lisinopril [Prinivil] 20 mg PO DAILY 03/27/17 03/27/17 History Magnesium Gluconate [Magonate] 500 mg PO DAILY 03/27/17 03/27/17 History Vitamin B Complex 1 cap PO DAILY 03/27/17 03/27/17 History Allergies Allergy/AdvReac Type Severity Reaction Status Date / Time Fish Containing Products Allergy Unknown Verified 03/27/17 12:08 Iodinated Contrast Media - Allergy throat Verified 03/27/17 12:08 Oral and swelling [Iodinated Contrast Media - IV Dye] Sulfa (Sulfonamide Allergy throat Verified 03/27/17 12:08 Antibiotics) swelling sulfamethoxazole Allergy throat Verified 03/27/17 12:08 [From ] swelling trimethoprim [From ] Allergy throat Verified 03/27/17 12:08 swelling NUTS Allergy Unknown Uncoded 03/27/17 11:09 Physical Exam Vitals: Vital Signs Temp Pulse Pulse Pulse Resp BP BP 03/28/17 12:00 97.5 F L 68 16 142/71 03/28/17 08:00 97.9 F 65 18 185/89 03/28/17 04:00 97.8 F 65 18 144/84 03/28/17 03:02 67 18 03/27/17 23:49 98 F 68 18 161/79 03/27/17 23:40 65 18 03/27/17 20:00 66 18 03/27/17 19:42 97.9 F 79 18 142/80 03/27/17 18:08 71 18 03/27/17 17:47 97.9 F 71 18 137/78 03/27/17 17:34 98.3 F 72 18 140/73 03/27/17 15:02 68 18 127/71 03/27/17 14:15 97.7 F 66 16 137/80 Pulse Ox 03/28/17 12:00 91 L 03/28/17 08:00 93 L 03/28/17 04:00 98 03/28/17 03:02 03/27/17 23:49 95 03/27/17 23:40 03/27/17 20:00 03/27/17 19:42 97 03/27/17 18:08 03/27/17 17:47 93 L 03/27/17 17:34 99 03/27/17 15:02 97 03/27/17 14:15 92 L Intake and Output 03/27/17 03/28/17 03/28/17 22:59 06:59 14:59 Intake Total 154 Balance 154 Intake: Intake, IV Titration 154 Amount Heparin Sodium,Porcine/ 154 D5w Pmx 25,000 unit In Dextrose/Water 1 500ml. bag @ 8.9 UNITS/KG/HR 20. 02 mls/hr IV .Q24H [facility] Rx #:[id number] Other: Voiding Method Toilet Toilet Toilet # Voids 2 Weight 104.2 kg General: The patient is awake and alert, in no distress Eye: there is normal conjunctiva bilaterally. Neck: The neck is supple, there is no JVD. Cardiovascular: Normal S1-S2, no S3-S4, no murmurs. Respiratory: Lungs clear to auscultation bilaterally Gastrointestinal: Abdomen is soft, nontender Musculoskeletal: There is no pedal edema. Neurological:. Speech is normal. Skin: Skin is warm and dry Results CBC & Chem 7: 03/27/17 14:05 03/27/17 11:35 Labs: Abnormal Lab Results - Last 24 Hours (Table) 03/27/17 03/27/17 03/27/17 Range/Units 14:05 20:36 22:22 WBC 11.4 H (3.8-10.6) k/uL APTT 32.3 H (22.0-30.0) sec POC Glucose (mg/dL) 179 H (75-99) mg/dL Triglycerides (<150) mg/dL HDL Cholesterol (40-60) mg/dL 03/28/17 03/28/17 03/28/17 Range/Units 06:58 06:58 06:59 WBC (3.8-10.6) k/uL APTT 36.6 H (22.0-30.0) sec POC Glucose (mg/dL) 130 H (75-99) mg/dL Triglycerides 300 H (<150) mg/dL HDL Cholesterol 32 L (40-60) mg/dL 03/28/17 Range/Units 13:00 WBC (3.8-10.6) k/uL APTT (22.0-30.0) sec POC Glucose (mg/dL) 146 H (75-99) mg/dL Triglycerides (<150) mg/dL HDL Cholesterol (40-60) mg/dL Thrombosis Risk Factor Assmnt - Choose All That Apply Any of the Below Risk Factors Present?: Yes Each Factor Represents 1 point: Age 41-60 years, Obesity (BMI >25) Other Risk Factors: Yes Each Risk Factor Represents 2 Points: Malignancy Other congenital or acquired thrombophilia - If yes, enter type in comment: No Thrombosis Risk Factor Assessment Total Risk Factor Score: 4 Thrombosis Risk Factor Assessment Level: Moderate Risk Assessment and Plan Plan: This is a 46-year-old female with past medical history significant for underlying coronary artery disease with prior angioplasty and stent placement last in April 2016, essential hypertension, type 2 diabetes mellitus, and hyperlipidemia who presented to the emergency room with chest pain. Patient said that the pain was mostly on the left side of her chest radiating to her neck and arm. Her pain started all of a sudden. She felt slightly short of breath. She was evaluated in the emergency room and 12-lead EKG showed no acute ischemic changes. Initial troponin was negative. She was noted to have uncontrolled blood pressure. She was seen and evaluated by cardiology and her regimen was adjusted. Plan is to obtain stress test. She is currently chest pain-free
[2017-03-28] MEDS ORDERED: ASPIRIN 325 MG TAB PO STA (13:42)
[2017-03-28] MEDS ORDERED: ALPRAZolam 0.5 MG TAB PO PRN (13:42)
[2017-03-28] MEDS ORDERED: NITROGLYCERIN SL TABS 0.4 MG TAB SUBLINGUAL PRN (13:42)
[2017-03-28] MEDS ORDERED: SODIUM CHLORIDE 0.9% 1,000 ML in EMPTY BAG 1 BAG IV ONE (13:42)
[2017-03-28] MEDS ORDERED: ATORVASTATIN 80 MG TAB PO STA (13:42)
[2017-03-28] MEDS ORDERED: ALPRAZolam 0.25 MG TAB PO PRN (13:42)
[2017-03-28] MEDS: CITALOPRAM HYDROBROMIDE 20 MG TAB PO SCH (13:49)
[2017-03-28] MEDS: DULoxetine HCL 60 MG CAPSULE.DR PO SCH (13:49)
[2017-03-28] MEDS: CYANOCOBALAMIN 500 MCG TAB PO SCH (13:49)
[2017-03-28] MEDS: lamoTRIgine 100 MG TAB PO SCH ×2 (13:49→19:40)
[2017-03-28] MEDS: MAGNESIUM OXIDE 400 MG TAB PO SCH (13:49)
[2017-03-28] MEDS: B COMPLEX-VIT C-VIT E-ZINC 1 EACH TAB PO SCH (13:50)
[2017-03-28] MEDS: CHOLECALCIFEROL 1,000 UNIT TAB PO SCH (13:50)
[2017-03-28] MEDS: ASPIRIN 325 MG TAB PO SCH (13:50)
[2017-03-28] MEDS: LISINOPRIL 20 MG TAB PO SCH (13:50)
--- NOTE | 2017-03-28 14:13 | ECHOS ---
DATE OF SERVICE: 03/28/2017 AGE: 46Y SEX: F HT: 66" WT: 229 lbs. Protocol Dave: Others: Dobutamine Stress Echo Stage: 4 Dur. of Exercise: 10:00 *Heart Rate Blood Pressure *Rest: 69 Rest: 121/69 * *Max. Achieved: 130 Maximum BP: 178/91 85% PMHR: 149 100% PMHR: 175 *METS: - INDICATIONS: Chest pain. MEDICATIONS: - STRESS DATA: Pretesting physical examination showed a heart rate of 69, pressure is 121/69 mmHg. Baseline EKG showed sinus rhythm. Dobutamine infusion at the dose of 10 mcg/kg per minute was initiated and increased to 40 mcg/kg per minute. We gave the patient 2 mg of atropine to enhance the heart rate. With dobutamine and Atropine, the patient achieved a max heart rate of 130, which is 74% of maximum predicted heart rate. Maximum blood pressure was 178/91 mmHg. Clinically, the patient did not report any symptoms of chest pain or discomfort during the testing or in the recovery time. The EKG did not show any significant ST or T-wave abnormalities consistent with ischemia or meeting the criteria for ischemia. ECHOCARDIOGRAM IMAGES: On echocardiogram images from parasternal long axis view, parasternal short axis view, apical 4 chamber view, apical 2 chamber view were obtained as the baseline images, at low-dose dobutamine infusion, at peak heart rate, as well as on recovery. The echocardiogram images showed that the basal septal seems to be slightly hypokinetic at the peak of the heart rate, as well as on the recovery. CONCLUSION: 1. Nondiagnostic dobutamine stress echocardiogram due to the patient not achieving 74% of maximum predicted heart. 2. To the level of the heart rate was achieved, the patient had some wall motion abnormalities in the basal septum. 3. Clinical correlation is recommended and the patient might benefit from different modality of stress testing or coronary angiogram.
[2017-03-28] MEDS ORDERED: diphenhydrAMINE 50 MG/ML 1 ML VIAL ONE (14:22)
[2017-03-28] MEDS ORDERED: methylPREDNISolone SOD SUCCI 125 MG/2 ML VIAL ONE (14:22)
[2017-03-28] MEDS ORDERED: diphenhydrAMINE 50 MG/ML 1 ML VIAL IVP ONE (14:24)
[2017-03-28] MEDS ORDERED: methylPREDNISolone SOD SUCCI 125 MG/2 ML VIAL IV ONE (14:25)
[2017-03-28] MEDS ORDERED: LIDOCAINE 2% INJ 20 MG/ML SQ ONE (14:26)
[2017-03-28 14:27] VITALS: BMI 37.0
[2017-03-28] MEDS ORDERED: IODIXANOL 320 MG/ML 100 ML INTRAARTER ONE (14:35)
[2017-03-28] MEDS ORDERED: SODIUM CHLORIDE 0.9% 1,000 ML IV ONE (14:35)
[2017-03-28] MEDS ORDERED: NITROGLYCERIN OINT 1 INCH/GM PACKET TOPICAL ONE ×2 (14:38→14:42)
[2017-03-28] MEDS ORDERED: ENALAPRILAT 1.25 MG/ML 1 ML VIAL ONE (14:41)
[2017-03-28] MEDS ORDERED: RX INFO: IV CONTRAST WAS GIVEN 1 EACH MISC MISCELLANE PRN (14:42)
[2017-03-28] MEDS ORDERED: ENALAPRILAT 1.25 MG/ML 1 ML VIAL IV ONE (14:43)
[2017-03-28] MEDS ORDERED: SODIUM CHLORIDE 0.9% 1,000 ML IV SCH (14:45)
[2017-03-28] MEDS ORDERED: hydrALAZINE HCL 20 MG/ML 1 ML VIAL ONE (14:46)
[2017-03-28] MEDS ORDERED: predniSONE 10 MG TAB PO STA (14:47)
[2017-03-28] MEDS ORDERED: hydrALAZINE HCL 20 MG/ML 1 ML VIAL IV ONE (14:48)
[2017-03-28] MEDS ORDERED: LABETALOL SYRINGE 5 MG/ML IV ONE (15:07)
[2017-03-28] MEDS ORDERED: NITROGLYCERIN-D5W PMX 50 MG in DEXTROSE/WATER 1 250ML.BAG IV ONE (15:11)
--- NOTE | 2017-03-28 15:12 | CC ---
DATE OF SERVICE: A 46-year-old lady with known case of coronary artery disease, status post multivessel angioplasty, who presented to hospital with unstable angina, ruled out for myocardial infarction, had a dobutamine echo that was abnormal due to which was advised to undergo cardiac catheterization. The patient has a history of IV DYE ALLERGY. We prepped her with Solu-Medrol and Benadryl, tolerated the procedure well without any obvious problems. FINDINGS: 1. HEMODYNAMICS: Left ventricular end-diastolic pressure is 14 mm. There is no significant gradient across the aortic valve. 2. ANGIOGRAPHIC DATA: LEFT MAIN CORONARY ARTERY: Left main coronary artery is a normal-sized vessel with a history of stenosis. It divides into left anterior descending coronary artery and circumflex coronary artery. Circumflex coronary artery is a nondominant vessel, shows mild atherosclerotic plaque. LAD gives off a large-caliber diagonal branch. There is a stent both within the LAD and the diag. Ostial diag shows a 40% to 50% stenosis. Right coronary artery is a large dominant vessel and was previously stented. The stent appears patent and the proximal RCA shows mild atherosclerotic plaque about 30% to 40% stenosis. CONCLUSION: Patent stents within the left anterior descending artery, diagonal and right coronary artery with a 30% to 40% stenosis involving proximal right coronary artery. PLAN: I reviewed angiographic data with the patient and advised her on medical therapy.
[2017-03-28] MEDS: metFORMIN 500 MG TAB PO SCH ×2 (16:08→17:32)
[2017-03-28] MEDS: PREGABALIN 75 MG CAP PO SCH ×2 (16:11→19:40)
[2017-03-28 16:12] LABS: Glucose,Whole Blood 199 mg/dL (75-99)
[2017-03-28 16:55] LABS: Glucose,Whole Blood 202 mg/dL (75-99)
[2017-03-28] MEDS: cloNIDine HCL 0.2 MG TAB PO SCH ×2 (17:24→23:09)
[2017-03-28] MEDS: FOLIC ACID 1 MG TAB PO SCH (19:40)
[2017-03-28] MEDS: CLOPIDOGREL 75 MG TAB PO SCH (19:40)
[2017-03-28] MEDS: ATENOLOL 50 MG TAB PO SCH (19:40)
[2017-03-28] MEDS: FENOFIBRATE 160 MG TAB PO SCH (19:40)
[2017-03-28 20:56] LABS: Glucose,Whole Blood 265 mg/dL (75-99)
[2017-03-29] MEDS: NITROGLYCERIN OINT 1 INCH/GM PACKET TOPICAL SCH ×3 (03:48→11:22)
[2017-03-29 07:04] LABS: Glucose,Whole Blood 251 mg/dL (75-99)
[2017-03-29] MEDS: metFORMIN 500 MG TAB PO SCH (07:39)
[2017-03-29] MEDS: INSULIN LISPRO (humaLOG) 300 UNIT/3 ML VIAL SQ SCH ×2 (07:51→12:36)
[2017-03-29] MEDS: CHOLECALCIFEROL 1,000 UNIT TAB PO SCH (07:54)
[2017-03-29] MEDS: CYANOCOBALAMIN 500 MCG TAB PO SCH (07:55)
[2017-03-29] MEDS: DULoxetine HCL 60 MG CAPSULE.DR PO SCH (07:55)
[2017-03-29] MEDS: hydrALAZINE HCL 50 MG TAB PO SCH (07:55)
[2017-03-29] MEDS: CITALOPRAM HYDROBROMIDE 20 MG TAB PO SCH (07:55)
[2017-03-29] MEDS: amLODIPine 10 MG TAB PO SCH (07:55)
[2017-03-29] MEDS: B COMPLEX-VIT C-VIT E-ZINC 1 EACH TAB PO SCH (07:55)
[2017-03-29] MEDS: PREGABALIN 75 MG CAP PO SCH (07:56)
[2017-03-29] MEDS: cloNIDine HCL 0.2 MG TAB PO SCH (07:56)
[2017-03-29] MEDS: MAGNESIUM OXIDE 400 MG TAB PO SCH (07:57)
[2017-03-29] MEDS: LISINOPRIL 20 MG TAB PO SCH (07:57)
[2017-03-29] MEDS: lamoTRIgine 100 MG TAB PO SCH (07:57)
--- NOTE | 2017-03-29 08:39 | PN ---
Leticia is a 46-year-old lady with a history of coronary artery disease, status post multivessel angioplasty, who presented to hospital with unstable angina. Underwent stress echo that was abnormal due to which she was advised to undergo cardiac catheterization. Her cardiac catheterization revealed patent stents and she was advised optimal medical therapy. On exam this morning, she is comfortable at rest. Blood pressure is elevated at 167/84. Respiratory rate is 18. Chest exam reveals good air entry bilaterally. Heart exam reveals first and second heart sounds. No gallop. Groin is free of bleeding, bruit, hematoma. Foot pulses are intact. Blood pressure is somewhat poorly controlled on amlodipine 10 mg daily, Tenormin 50 mg daily, Apresoline 50 mg t.i.d. and Catapres. ASSESSMENT: 1. Uncontrolled hypertension. I increased the dose of hydralazine to 75 t.i.d. 2. Status post cath. I advised medical therapy. PLAN: Patient is stable to be discharged home. Please hold the metformin for 48 hours.
[2017-03-29] MEDS: ASPIRIN 325 MG TAB PO SCH (11:22)
[2017-03-29 12:02] LABS: Glucose,Whole Blood 320 mg/dL (75-99)
[2017-03-29 12:15] VITALS: BP 112/61; PULSE 64; RESP 16; TEMP 97.9
[2017-03-29 14:15] LABS: Hemoglobin A1C 9.1 % (4.2-6.1)
--- NOTE | 2017-03-29 14:32 | P.DS ---
Providers Date of admission: 03/27/17 13:46 Expected date of discharge: 03/29/17 Attending physician: Evin Sanchez Consults: 03/27/17 13:44 Consult Physician Urgent Consulting Provider: [facility] Reason/Comments: Unstable angina Do you want consulting provider notified?: Yes Primary care physician: Dagmar Hennessy Hospital Course: Discharge diagnosis 1. Chest pain: RI ruled out. 12-lead EKG no acute changes. Troponins negative 3 sets. Patient had abnormal stress test. Therefore, underwent heart catheterization yesterday which showed patent stents and a 30-40% stenosis in the proximal RCA. Cardiology recommended medical treatment. I have cleared her for discharge. 2. Uncontrolled blood pressure with episodes of accelerated hypertension: Blood pressure medications adjusted during this admission Norvasc, Catapres and hydralazine 3. Diabetes mellitus type 2: Slightly elevated blood sugars due to holding metformin. Metformin has to be held for a total 48 hours after heart catheterization 4. History of coronary artery disease with previous cardiac stents placed in April 2016 Hospital course This is a 46-year-old female with past medical history significant for underlying coronary artery disease with prior angioplasty and stent placement last in April 2016, essential hypertension, type 2 diabetes mellitus, and hyperlipidemia who presented to the emergency room with chest pain. Patient said that the pain was mostly on the left side of her chest radiating to her neck and arm. Her pain started all of a sudden. She felt slightly short of breath. She was evaluated in the emergency room and 12-lead EKG showed no acute ischemic changes. Troponins negative 3 sets. She was noted to have uncontrolled blood pressure. She was seen and evaluated by cardiology and her regimen was adjusted. Patient underwent stress test which came back abnormal. Therefore she proceeded to have a heart catheterization. Heart catheterization had shown patent stents with a 30-40% stenosis in the proximal RCA. Cardiology recommended medical treatment and cleared her for discharge. They've also recommended hydralazine at 75 mg 3 times a day the Norvasc and Catapres. Patient's blood pressures have shown improvement in the chest pain has resolved. Patient was complaining of some pain in the right foot and this AM leg that she had the heart cath procedure completed. She was reevaluated by cardiology and again they have cleared her for discharge. After the reevaluation patient has now stated the pain has been chronically there and it' s old pain no new pain no bruising or discoloration to that leg or foot. She has good pulses 2+ dorsalis pedis pulse. She is medically in cardiac cleared for discharge. She'll follow-up with her PCP in 1 week. Also have her follow- up with cardiology in 1 week. Patient Condition at Discharge: Stable Plan - Discharge Summary New Discharge Prescriptions: New amLODIPine [Norvasc] 10 mg PO DAILY #30 tab cloNIDine HCL [Catapres] 0.2 mg PO TID #90 tab hydrALAZINE HCL [Apresoline] 50 mg PO TID #90 tab Continue Fenofibrate [Lofibra] 160 mg PO HS Citalopram Hydrobromide [CeleXA] 40 mg PO DAILY #1 tab Pregabalin [Lyrica] 150 mg PO BID Insulin Glargine [Lantus] 38 unit SQ HS INSULIN LISPRO (humaLOG) [humaLOG (formulary)] See Protocol SQ AC-TID Cholecalciferol [Vitamin D3] 5,000 unit PO DAILY Atenolol [Tenormin] 50 mg PO HS Folic Acid 1 mg PO HS Atorvastatin [Lipitor] 20 mg PO HS DULoxetine HCL [Cymbalta] 60 mg PO DAILY Clopidogrel [Plavix] 75 mg PO HS lamoTRIgine 200 mg PO BID Vitamin B Complex 1 cap PO DAILY Magnesium Gluconate [Magonate] 500 mg PO DAILY Lisinopril [Prinivil] 20 mg PO DAILY Isosorbide Mononitrate ER [Imdur] 30 mg PO DAILY Hydrocodone/Acetaminophen [[place] 7.5-325 Tablet] 1 tab PO Q6H PRN PRN Reason: Pain Aspirin EC [Ecotrin] 325 mg PO DAILY Albuterol Nebulized [Ventolin Nebulized] 2.5 mg INHALATION RT-Q4H PRN PRN Reason: Shortness Of Breath ALPRAZolam [Xanax] 0.5 mg PO DAILY PRN PRN Reason: Anxiety Cyanocobalamin (Vitamin B-12) [Vitamin B-12] 1,000 mcg PO DAILY metFORMIN HCL 1,000 mg PO BID #0 Discharge Medication List Fenofibrate [Lofibra] 160 mg PO HS 03/02/15 [History] Citalopram Hydrobromide [CeleXA] 40 mg PO DAILY #1 tab 05/14/15 [Rx] Pregabalin [Lyrica] 150 mg PO BID 06/25/15 [History] Atenolol [Tenormin] 50 mg PO HS 01/15/16 [History] Cholecalciferol [Vitamin D3] 5,000 unit PO DAILY 01/15/16 [History] INSULIN LISPRO (humaLOG) [humaLOG (formulary)] See Protocol SQ AC-TID 01/15/16 [ History] Insulin Glargine [Lantus] 38 unit SQ HS 01/15/16 [History] Folic Acid 1 mg PO HS 03/24/16 [History] Atorvastatin [Lipitor] 20 mg PO HS 03/25/16 [History] DULoxetine HCL [Cymbalta] 60 mg PO DAILY 04/13/16 [History] Clopidogrel [Plavix] 75 mg PO HS 07/30/16 [History] lamoTRIgine 200 mg PO BID 07/30/16 [History] ALPRAZolam [Xanax] 0.5 mg PO DAILY PRN 03/27/17 [History] Albuterol Nebulized [Ventolin Nebulized] 2.5 mg INHALATION RT-Q4H PRN 03/27/17 [ History] Aspirin EC [Ecotrin] 325 mg PO DAILY 03/27/17 [History] Cyanocobalamin (Vitamin B-12) [Vitamin B-12] 1,000 mcg PO DAILY 03/27/17 [ History] Hydrocodone/Acetaminophen [[place] 7.5-325 Tablet] 1 tab PO Q6H PRN 03/27/17 [ History] Isosorbide Mononitrate ER [Imdur] 30 mg PO DAILY 03/27/17 [History] Lisinopril [Prinivil] 20 mg PO DAILY 03/27/17 [History] Magnesium Gluconate [Magonate] 500 mg PO DAILY 03/27/17 [History] Vitamin B Complex 1 cap PO DAILY 03/27/17 [History] amLODIPine [Norvasc] 10 mg PO DAILY #30 tab 03/29/17 [Rx] cloNIDine HCL [Catapres] 0.2 mg PO TID #90 tab 03/29/17 [Rx] hydrALAZINE HCL [Apresoline] 50 mg PO TID #90 tab 03/29/17 [Rx] metFORMIN HCL 1,000 mg PO BID #0 03/29/17 [Rx] Follow up Appointment(s)/Referral(s): Jax Jean DO [REFERRING] - 1 Week Dagmar Hennessy MD [Primary Care Provider] - 1 Week Activity/Diet/Wound Care/Special Instructions: Diet: Cardiac, diabetic Activity as tolerated Patient is to hold taking metformin for 48 hours Discharge Disposition: HOME SELF-CARE
[2017-03-29] MEDS ORDERED: ATORVASTATIN 20 MG TAB PO SCH (21:00)
== END 2017-03-29 14:45 | disposition home or self-care (01) ==
LOC: EC 10:49 → 3OBS 13:46
PROVIDERS: ADMIT Internal Medicine; ATTEND Internal Medicine
DX: I25.110 Atherosclerotic heart disease of native coronary artery with unstable angina pectoris (principal); I10 Essential (primary) hypertension; E11.65 Type 2 diabetes mellitus with hyperglycemia; E78.5 Hyperlipidemia, unspecified; G47.33 Obstructive sleep apnea (adult) (pediatric); G25.81 Restless legs syndrome; F41.9 Anxiety disorder, unspecified; F32.9 Major depressive disorder, single episode, unspecified; Z82.49 Family history of ischemic heart disease and other diseases of the circulatory system; F17.210 Nicotine dependence, cigarettes, uncomplicated; E66.9 Obesity, unspecified; G35 Multiple sclerosis; M79.7 Fibromyalgia; I25.2 Old myocardial infarction; I69.351 Hemiplegia and hemiparesis following cerebral infarction affecting right dominant side; Z85.41 Personal history of malignant neoplasm of cervix uteri; Z91.041 Radiographic dye allergy status; Z95.5 Presence of coronary angioplasty implant and graft; Z79.84 Long term (current) use of oral hypoglycemic drugs; Z79.4 Long term (current) use of insulin; Z79.899 Other long term (current) drug therapy; Z79.02 Long term (current) use of antithrombotics/antiplatelets; Z79.82 Long term (current) use of aspirin; Z88.2 Allergy status to sulfonamides; Z88.8 Allergy status to other drugs, medicaments and biological substances; Z91.018 Allergy to other foods; Z91.013 Allergy to seafood; Z68.37 Body mass index [BMI] 37.0-37.9, adult
CPT/HCPCS: 96366 ×3; 96376; 96365; 99291; 36415; 93005; 93017; 93306; 93350; 93458; 80061; 80053; 83036; 82550; 82553; 83735; 84484; 85025; 85610; 85730 ×2; 71020; G0378 ×3; C1894; C1769; J2001; J1250; J0360; J1200; J1644 ×2; J2930; Q9967; J0461

== ENCOUNTER → 2017-06-18 | Outpatient (CLI) | payer OTHER ==
[2017-06-18 11:55] LABS: CH 33.4; CHCM 34.6; HCT 46.2 % (34.0-46.0); HDW 2.78; HGB 15.6 gm/dL (11.4-16.0); MCH 32.8 pg (25.0-35.0); MCHC 33.7 g/dL (31.0-37.0); MCV 97.4 fL (80.0-100.0); Mean Platelet Volume 8.8; RBC 4.74 m/uL (3.80-5.40); RDW 14.7 % (11.5-15.5); WBC 11.9 k/uL (3.8-10.6)
[2017-06-18 12:10] LABS: Anion Gap 12 mmol/L; Blood Urea Nitrogen 13 mg/dL (7-17); Calcium 10.3 mg/dL (8.4-10.2); Carbon Dioxide 25 mmol/L (22-30); Chloride 102 mmol/L (98-107); Glucose 170 mg/dL (74-99); Iron 69 ug/dL (37-170); Magnesium 1.5 mg/dL (1.6-2.3); Non-African American GFR(MDRD) >60 (>60 ml/min/1.73 sqM); Phosphorous 3.2 mg/dL (2.5-4.5); Potassium 4.5 mmol/L (3.5-5.1); Sodium 139 mmol/L (137-145); Uric Acid 3.6 mg/dL (3.7-7.4)
[2017-06-18 12:19] LABS: % Iron Saturation 19.1 % (20-50); Total Iron Binding Capacity 362 ug/dL (265-497)
[2017-06-18 12:21] LABS: Appearance,Urine Clear (Clear); Bacteria,Urine Rare /hpf; Bilirubin,Urine Negative (Negative); Glucose,Urine (UA) 4+ (Negative); Ketones,Urine Negative (Negative); Leukocyte Esterase,Urine Negative (Negative); Nitrite,Urine Negative (Negative); PH, Urine 5.5 (5.0-8.0); Particle Count 4409; Protein,Urine 1+ (Negative); RBC,Urine <1 /hpf (0-5); Specific Gravity,Urine 1.022 (1.001-1.035); Squamous Epithelial Cell,Urine 5 /hpf (0-4); UA Billing (MACRO vs. MICRO) MICRO; Urobilinogen,Urine <2.0 mg/dL (<2.0); WBC,Urine 2 /hpf (0-5)
== END | disposition home or self-care (01) ==
LOC: LABWHC1 11:34
PROVIDERS: ATTEND Psychiatry & Neurology Pain Medicine
DX: E55.9 Vitamin D deficiency, unspecified (principal); E21.3 Hyperparathyroidism, unspecified; M10.9 Gout, unspecified; D50.9 Iron deficiency anemia, unspecified; N17.9 Acute kidney failure, unspecified
CPT/HCPCS: 36415; 80048; 81001; 82306; 82728; 83540; 83550; 83735; 83970; 84100; 84550; 85027

== ENCOUNTER → 2017-06-27 | Outpatient (CLI) | payer OTHER ==
--- NOTE | 2017-06-28 08:10 | MR ---
EXAMINATION TYPE: MR brain wo con DATE OF EXAM: 06/27/2017 COMPARISON: CT brain 11/25/2016, MRI brain 01/12/2016 HISTORY: Poss TIA, hx stroke 2 years ago T1-weighted sagittal, T2, FLAIR, and diffusion axial, and T2 coronal coronal views of the brain are s ubmitted. There is no evidence of acute ischemia. The ventricles, basal cisterns, and sulci overlying the conv exities are consistent with the patient's age. There is no mass effect. Craniocervical junction maintained. Sella turcica has a normal appearance. No cerebellopontine angle mass. Changes of chronic sinusitis noted. Abnormal signal within the basal ganglia and thalamus may be on the basis of previous infarct. Abnormal signal throughout the nieves is noted. This is stable. Benign-appearing cyst within the nasopharynx. There is an area of abnormal signal within the left estevez radiata stable compatible with previous in farct. White matter: Approximately 40 white matter lesions which are stable. A couple lesions may be perpend icular to the ventricular system. Abnormal signal within the corpus callosum suggested. IMPRESSION: 1. Diffuse white matter changes. Differential diagnosis would include demyelinating process such as M S, vasculitis, remote microvascular ischemia, or sarcoidosis. 2. Abnormal signal within the nieves is nonspecific could be on the basis of remote ischemia. Demyelina ting process also in the differential. Correlate clinically.
== END | disposition home or self-care (01) ==
LOC: RADMRIMAIN 20:40
PROVIDERS: ATTEND Psychiatry & Neurology Pain Medicine
DX: R90.89 Other abnormal findings on diagnostic imaging of central nervous system (principal); Z88.8 Allergy status to other drugs, medicaments and biological substances; Z91.041 Radiographic dye allergy status; Z91.013 Allergy to seafood
CPT/HCPCS: 70551

== ENCOUNTER → 2017-07-26 | Outpatient (CLI) | payer OTHER ==
[2017-07-26 10:29] LABS: ALT 37 U/L (9-52); AST 20 U/L (14-36); Alkaline Phosphatase 104 U/L (38-126); Anion Gap 12 mmol/L; Blood Urea Nitrogen 17 mg/dL (7-17); Calcium 10.1 mg/dL (8.4-10.2); Carbon Dioxide 21 mmol/L (22-30); Chloride 104 mmol/L (98-107); Cholesterol 118 mg/dL (<200); Glucose 271 mg/dL (74-99); HDL Cholesterol 31 mg/dL (40-60); Non-African American GFR(MDRD) >60 (>60 ml/min/1.73 sqM); Potassium 4.7 mmol/L (3.5-5.1); Sodium 137 mmol/L (137-145); Total Bilirubin 0.4 mg/dL (0.2-1.3); Total Protein 6.9 g/dL (6.3-8.2)
[2017-07-26 11:18] LABS: Vitamin B12 406 pg/mL (239-931)
[2017-07-26 14:07] LABS: Hemoglobin A1C 8.3 % (4.2-6.1)
== END | disposition home or self-care (01) ==
LOC: LABWHC1 09:33
PROVIDERS: ATTEND Psychiatry & Neurology Pain Medicine
DX: E78.2 Mixed hyperlipidemia (principal); I82.90 Acute embolism and thrombosis of unspecified vein; E72.11 Homocystinuria; E72.12 Methylenetetrahydrofolate reductase deficiency; E11.9 Type 2 diabetes mellitus without complications; I63.30 Cerebral infarction due to thrombosis of unspecified cerebral artery; I10 Essential (primary) hypertension; I25.118 Atherosclerotic heart disease of native coronary artery with other forms of angina pectoris; E83.52 Hypercalcemia; R90.82 White matter disease, unspecified; Z79.4 Long term (current) use of insulin
CPT/HCPCS: 36415; 80053; 80061; 82607; 82746; 83036; 83090

== ENCOUNTER → 2017-09-26 | Outpatient (CLI) | payer OTHER ==
[2017-09-26 12:43] LABS: Anion Gap 15 mmol/L; Blood Urea Nitrogen 25 mg/dL (7-17); Calcium 10.4 mg/dL (8.4-10.2); Carbon Dioxide 22 mmol/L (22-30); Chloride 96 mmol/L (98-107); Glucose 293 mg/dL (74-99); Non-African American GFR(MDRD) 60 (>60 ml/min/1.73 sqM); Potassium 4.9 mmol/L (3.5-5.1); Sodium 133 mmol/L (137-145)
== END | disposition home or self-care (01) ==
LOC: LABWHC1 11:24
PROVIDERS: ATTEND Nurse Practitioner Family
DX: I10 Essential (primary) hypertension (principal)
CPT/HCPCS: 36415; 80048

== ENCOUNTER → 2017-10-25 | Outpatient (CLI) | payer OTHER ==
--- NOTE | 2017-10-29 09:45 | MM ---
Reason for exam: screening (asymptomatic). Last mammogram was performed 2 years and 10 months ago. History: Patient has history of endometrial cancer at age 37. Family history of breast cancer in paternal grandmother. Physical Findings: A clinical breast exam by your physician is recommended on an annual basis and results should be correlated with mammographic findings. MG Screening Mammo w CAD Bilateral CC and MLO view(s) were taken. Prior study comparison: December 15, 2014, bilateral MG screening mammo w CAD. December 14, 2013, bilateral digital screening mammo w/CAD. The breast tissue is heterogeneously dense. This may lower the sensitivity of mammography. Stable benign calcifications. There is no discrete abnormality. No significant changes when compared with prior studies. ASSESSMENT: Benign, BI-RAD 2 RECOMMENDATION: Routine screening mammogram of both breasts in 1 year.
== END | disposition home or self-care (01) ==
LOC: RADMAMWWP 09:24
PROVIDERS: ATTEND Family Medicine
DX: Z12.31 Encounter for screening mammogram for malignant neoplasm of breast (principal)

== ENCOUNTER → 2017-11-19 | Outpatient (CLI) | payer OTHER | END | disposition home or self-care (01) | LOC: LABWHC1 10:43 | PROVIDERS: ATTEND Psychiatry & Neurology Pain Medicine | DX: Z01.818 Encounter for other preprocedural examination (principal) | CPT/HCPCS: 36415; 93005 ==

== ENCOUNTER 2017-11-26 21:39 | Emergency (ER) | payer OTHER ==
--- NOTE | 2017-11-26 22:43 | ED ---
Abdominal Pain HPI - General Chief Complaint: Abdominal Pain Stated Complaint: lower right abdominal pain Time Seen by Provider: 11/26/17 22:20 Source: patient Mode of arrival: ambulatory Limitations: no limitations - History of Present Illness Initial Comments: This patient is a 47-year-old woman who presents to be a value for right upper quadrant pain that developed 4 days ago. She states that since the pain developed it seems to have migrated towards the right lower quadrant and it has been there for the past day. She is not able to characterize the pain well as to what type pain, but she indicates that it is moderate intensity. She has not noted any worsening or relieving factors. No associated symptoms. She does have constipation but states this is been a long standing problem. The patient had started taking Metamucil a couple of days prior to the onset of the pain and wondered if this was contributing. She did stop the Metamucil to 3 days ago but did not notice improvement. No change in urination. MD Complaint: abdominal pain Onset/Timin -: days(s) Location: RUQ Radiation: none Migration to: RLQ Severity: moderate Quality: other (Unable to characterize) Consistency: constant Improves With: nothing Worsens With: nothing Associated Symptoms: constipation - Related Data LMP (females 10-50): other (Hysterectomy) Home Medications Medication Instructions Recorded Confirmed Fenofibrate [Lofibra] 160 mg PO DAILY 03/02/15 11/26/17 Pregabalin [Lyrica] 150 mg PO BID 06/25/15 11/26/17 Cholecalciferol [Vitamin D3] 2,000 unit PO DAILY 01/15/16 11/26/17 INSULIN LISPRO (humaLOG) [humaLOG] See Protocol SQ AC-TID 01/15/16 11/26/17 Insulin Glargine [Lantus] 45 unit SQ DAILY 01/15/16 11/26/17 Folic Acid 1 mg PO DAILY 03/24/16 11/26/17 DULoxetine HCL [Cymbalta] 60 mg PO DAILY 04/13/16 11/26/17 Clopidogrel [Plavix] 75 mg PO HS 07/30/16 11/26/17 lamoTRIgine 200 mg PO BID 07/30/16 11/26/17 Albuterol Nebulized [Ventolin 2.5 mg INHALATION RT-Q4H PRN 03/27/17 11/26/17 Nebulized] Hydrocodone/Acetaminophen [[place] 1 tab PO Q6H PRN 03/27/17 11/26/17 7.5-325 Tablet] Isosorbide Mononitrate ER [Imdur] 30 mg PO DAILY 03/27/17 11/26/17 Magnesium Gluconate [Magonate] 250 mg PO DAILY 03/27/17 11/26/17 Vitamin B Complex 1 cap PO DAILY 03/27/17 11/26/17 ALPRAZolam [Xanax] 2 mg PO HS 11/26/17 11/26/17 Aspirin [Adult Low Dose Aspirin EC] 81 mg PO DAILY 11/26/17 11/26/17 Atorvastatin [Lipitor] 80 mg PO DAILY 11/26/17 11/26/17 Carvedilol [Coreg] 12.5 mg PO BID 11/26/17 11/26/17 Dapagliflozin Propanediol [Farxiga] 5 mg PO DAILY 11/26/17 11/26/17 Enalapril [Vasotec] 10 mg PO BID 11/26/17 11/26/17 Nitroglycerin Sl Tabs [Nitrostat] 0.4 mg SUBLINGUAL Q5M PRN 11/26/17 11/26/17 Varenicline [Chantix Continuing 1 mg PO BID 11/26/17 11/26/17 Pack] Previous Rx's Medication Instructions Recorded Citalopram Hydrobromide [CeleXA] 40 mg PO DAILY #1 tab 03/10/15 metFORMIN HCL 1,000 mg PO BID #0 03/29/17 Allergies Allergy/AdvReac Type Severity Reaction Status Date / Time Fish Containing Products Allergy Unknown Verified 11/26/17 22:24 Iodinated Contrast- Oral and Allergy throat Verified 11/26/17 22:24 IV Dye swelling [Iodinated Contrast Media - IV Dye] Sulfa (Sulfonamide Allergy throat Verified 11/26/17 22:24 Antibiotics) swelling sulfamethoxazole Allergy throat Verified 11/26/17 22:24 [From Junra] swelling trimethoprim [From ] Allergy throat Verified 11/26/17 22:24 swelling NUTS Allergy Unknown Uncoded 11/26/17 21:46 Review of Systems ROS Statement: Those systems with pertinent positive or pertinent negative responses have been documented in the HPI. ROS Other: All systems not noted in ROS Statement are negative. Constitutional: Denies: fever, chills, weakness Respiratory: Denies: cough, dyspnea Cardiovascular: Denies: chest pain, palpitations, edema, syncope Gastrointestinal: Reports: abdominal pain, constipation. 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 andper pt' s spouse- slight foot drag when tired.diabetes mellitus insulin-dependent, hypertension, hyperlipidemia, fibromyalgia, obstructive sleep apnea, MS, questionable hypercoagulable disease, anxiety, depression, obesity Last Myocardial Infarction Date:: unk History of Any Multi-Drug Resistant Organisms: None Reported Past Surgical History: Section, Cholecystectomy, Heart Catheterization With Stent, Hysterectomy, Tubal Ligation, Uterine Ablation Additional Past Surgical History / Comment(s): vein stripping right leg, radio frequency ablation of right back-02/22/2015, four stents on 04/03/16 and one on march 05 Past Anesthesia/Blood Transfusion Reactions: Motion Sickness Additional Past Anesthesia/Blood Transfusion Reaction / Comment(s): mild clausterphobia Date of Last Stent Placement:: 2003 Past Psychological History: Anxiety, Depression Smoking Status: Current every day smoker Past Alcohol Use History: None Reported Past Drug Use History: None Reported - Past Family History Father Family Medical History: Congestive Heart Failure (CHF), Coronary Artery Disease (CAD), Diabetes Mellitus Mother Family Medical History: Cancer, Hypertension, Respiratory Disorder Additional Family Medical History / Comment(s): emphysema, colon CA General Exam Limitations: no limitations General appearance: alert, in no apparent distress Head exam: Present: atraumatic, normocephalic Eye exam: Present: normal appearance. Absent: scleral icterus, conjunctival injection ENT exam: Present: normal oropharynx Respiratory exam: Present: normal lung sounds bilaterally. Absent: respiratory distress, wheezes, rales, rhonchi, stridor Cardiovascular Exam: Present: regular rate, normal rhythm, normal heart sounds. Absent: systolic murmur, diastolic murmur, rubs, gallop GI/Abdominal exam: Present: soft, tenderness (There is mild right sided tenderness without rebound or guarding), diminished bowel sounds. Absent: distended, guarding, rebound, rigid, mass, pulsatile mass, hernia Extremities exam: Present: normal inspection, normal capillary refill. Absent: pedal edema, calf tenderness Back exam: Present: normal inspection. Absent: CVA tenderness (R), CVA tenderness (L) Neurological exam: Present: alert, motor sensory deficit (Patient has right upper extremity weakness with flexion contracture of the right hand.) Skin exam: Present: warm, dry, intact, normal color. Absent: rash Course Vital Signs 11/26/17 11/26/17 21:42 23:59 Temperature 98.0 F 97.4 F L Pulse Rate 76 60 Respiratory 18 18 Rate Blood Pressure 186/97 166/84 O2 Sat by Pulse 96 95 Oximetry Medical Decision Making - Lab Data Result diagrams: 11/26/17 22:55 11/26/17 22:55 Lab Results 11/26/17 11/26/17 11/26/17 Range/Units 22:55 22:55 23:10 WBC 11.3 H (3.8-10.6) k/uL RBC 5.12 (3.80-5.40) m/uL Hgb 16.3 H (11.4-16.0) gm/dL Hct 48.7 H (34.0-46.0) % MCV 95.0 (80.0-100.0) fL MCH 31.9 (25.0-35.0) pg MCHC 33.5 (31.0-37.0) g/dL RDW 13.4 (11.5-15.5) % Plt Count 219 (150-450) k/uL Neutrophils % 68 % Lymphocytes % 25 % Monocytes % 4 % Eosinophils % 1 % Basophils % 1 % Neutrophils # 7.7 (1.3-7.7) k/uL Lymphocytes # 2.8 (1.0-4.8) k/uL Monocytes # 0.4 (0-1.0) k/uL Eosinophils # 0.1 (0-0.7) k/uL Basophils # 0.1 (0-0.2) k/uL Sodium 138 (137-145) mmol/L Potassium 4.3 (3.5-5.1) mmol/L Chloride 104 (98-107) mmol/L Carbon Dioxide 23 (22-30) mmol/L Anion Gap 11 mmol/L BUN 17 (7-17) mg/dL Creatinine 0.80 (0.52-1.04) mg/dL Est GFR (MDRD) Af Amer >60 (>60 ml/min/1.73 sqM) Est GFR (MDRD) Non-Af >60 (>60 ml/min/1.73 sqM) Glucose 196 H (74-99) mg/dL Calcium 10.6 H (8.4-10.2) mg/dL Total Bilirubin 0.4 (0.2-1.3) mg/dL AST 17 (14-36) U/L ALT 23 (9-52) U/L Alkaline Phosphatase 86 (38-126) U/L Total Protein 7.6 (6.3-8.2) g/dL Albumin 4.7 (3.5-5.0) g/dL Amylase 44 (30-110) U/L Lipase 246 (23-300) U/L Urine Color Urine Appearance (Clear) Urine pH (5.0-8.0) Ur Specific [place] (1.001-1.035) Urine Protein (Negative) Urine Glucose (UA) (Negative) Urine Ketones (Negative) Urine Blood (Negative) Urine Nitrite (Negative) Urine Bilirubin (Negative) Urine Urobilinogen (<2.0) mg/dL Ur Leukocyte Esterase (Negative) Urine RBC (0-5) /hpf Urine WBC (0-5) /hpf Ur Squamous Epith Cells (0-4) /hpf Urine Mucus (None) /hpf Urine HCG, Qual Not Detected (Not Detectd) 11/26/17 Range/Units 23:10 WBC (3.8-10.6) k/uL RBC (3.80-5.40) m/uL Hgb (11.4-16.0) gm/dL Hct (34.0-46.0) % MCV (80.0-100.0) fL MCH (25.0-35.0) pg MCHC (31.0-37.0) g/dL RDW (11.5-15.5) % Plt Count (150-450) k/uL Neutrophils % % Lymphocytes % % Monocytes % % Eosinophils % % Basophils % % Neutrophils # (1.3-7.7) k/uL Lymphocytes # (1.0-4.8) k/uL Monocytes # (0-1.0) k/uL Eosinophils # (0-0.7) k/uL Basophils # (0-0.2) k/uL Sodium (137-145) mmol/L Potassium (3.5-5.1) mmol/L Chloride (98-107) mmol/L Carbon Dioxide (22-30) mmol/L Anion Gap mmol/L BUN (7-17) mg/dL Creatinine (0.52-1.04) mg/dL Est GFR (MDRD) Af Amer (>60 ml/min/1.73 sqM) Est GFR (MDRD) Non-Af (>60 ml/min/1.73 sqM) Glucose (74-99) mg/dL Calcium (8.4-10.2) mg/dL Total Bilirubin (0.2-1.3) mg/dL AST (14-36) U/L ALT (9-52) U/L Alkaline Phosphatase (38-126) U/L Total Protein (6.3-8.2) g/dL Albumin (3.5-5.0) g/dL Amylase (30-110) U/L Lipase (23-300) U/L Urine Color Yellow Urine Appearance Cloudy H (Clear) Urine pH 5.5 (5.0-8.0) Ur Specific [place] 1.021 (1.001-1.035) Urine Protein 1+ H (Negative) Urine Glucose (UA) 4+ H (Negative) Urine Ketones Negative (Negative) Urine Blood Negative (Negative) Urine Nitrite Negative (Negative) Urine Bilirubin Negative (Negative) Urine Urobilinogen <2.0 (<2.0) mg/dL Ur Leukocyte Esterase Negative (Negative) Urine RBC 1 (0-5) /hpf Urine WBC 2 (0-5) /hpf Ur Squamous Epith Cells 6 H (0-4) /hpf Urine Mucus Rare H (None) /hpf Urine HCG, Qual (Not Detectd) Disposition Clinical Impression: Abdominal pain, Ovarian cyst Disposition: HOME SELF-CARE Condition: Good Instructions: Ovarian Cyst (ED), Abdominal Pain (ED) Referrals: Dagmar Hennessy MD [Primary Care Provider] - 1-2 days Cassandra Winslow DO [Doctor of Osteopathic Medicine] - 1-2 days
[2017-11-26 23:17] LABS: Basophils # (A) 0.1 k/uL (0-0.2); Basophils % (A) 1 %; Eosinophils # (A) 0.1 k/uL (0-0.7); Eosinophils % (A) 1 %; HCT 48.7 % (34.0-46.0); HGB 16.3 gm/dL (11.4-16.0); Lymphocytes # (A) 2.8 k/uL (1.0-4.8); Lymphocytes % (A) 25 %; MCH 31.9 pg (25.0-35.0); MCHC 33.5 g/dL (31.0-37.0); Mean Platelet Volume 7.5; Monocytes # (A) 0.4 k/uL (0-1.0); Monocytes % (A) 4 %; Neutrophils # (A) 7.7 k/uL (1.3-7.7); Neutrophils % (A) 68 %; Platelet Count 219 k/uL (150-450); RBC 5.12 m/uL (3.80-5.40); RDW 13.4 % (11.5-15.5); WBC 11.3 k/uL (3.8-10.6)
[2017-11-26 23:24] LABS: Appearance,Urine Cloudy (Clear); Bilirubin,Urine Negative (Negative); Blood,Urine Negative (Negative); Color,Urine Yellow; Glucose,Urine (UA) 4+ (Negative); Ketones,Urine Negative (Negative); Leukocyte Esterase,Urine Negative (Negative); Mucus,Urine Rare /hpf; Nitrite,Urine Negative (Negative); PH, Urine 5.5 (5.0-8.0); Protein,Urine 1+ (Negative); RBC,Urine 1 /hpf (0-5); Specific Gravity,Urine 1.021 (1.001-1.035); Squamous Epithelial Cell,Urine 6 /hpf (0-4); Urobilinogen,Urine <2.0 mg/dL (<2.0); WBC,Urine 2 /hpf (0-5)
[2017-11-26 23:27] LABS: ALT 23 U/L (9-52); AST 17 U/L (14-36); Albumin 4.7 g/dL (3.5-5.0); Alkaline Phosphatase 86 U/L (38-126); Amylase 44 U/L (30-110); Anion Gap 11 mmol/L; Blood Urea Nitrogen 17 mg/dL (7-17); Calcium 10.6 mg/dL (8.4-10.2); Carbon Dioxide 23 mmol/L (22-30); Chloride 104 mmol/L (98-107); Glucose 196 mg/dL (74-99); Lipase 246 U/L (23-300); Potassium 4.3 mmol/L (3.5-5.1); Sodium 138 mmol/L (137-145); Total Bilirubin 0.4 mg/dL (0.2-1.3); Total Protein 7.6 g/dL (6.3-8.2)
--- NOTE | 2017-11-26 23:56 | CT ---
EXAMINATION TYPE: CT abdomen pelvis wo con DATE OF EXAM: 11/26/2017 COMPARISON: 04/13/2016 HISTORY: Right side abdominal pain. CT DLP: 1186 mGycm Automated exposure control for dose reduction was used. TECHNIQUE: Helical acquisition of images was performed from the lung bases through the pelvis. FINDINGS: The lung bases are clear of consolidation. There is no pleural effusion. Heart size is normal. Liver and spleen appear normal. There is no evidence of a pancreatic mass. There are clips from esvin cystectomy. Bile ducts are not dilated. There is no adrenal mass. Kidneys have normal size and contou r. There is no hydronephrosis. There are bilateral tiny renal calculi that measure up to 4 to 5 mm. T he ureters are not dilated. There is no retroperitoneal adenopathy. Hysterectomy is noted. There is a 4 cm cyst in the pelvis on the right side. There is no ascites. There is no sign of free air. Append ix appears normal. I see no intestinal wall thickening. Urinary bladder is almost empty. IMPRESSION: 4 CM RIGHT-SIDED PELVIC CYST IS PROBABLY OVARIAN CYST. MULTIPLE NONOBSTRUCTING SMALL RENAL CALCULI. A THEROSCLEROTIC VASCULAR DISEASE. NORMAL APPENDIX. THE PELVIC CYST IS NEW COMPARED TO OLD CT SCAN. THERE IS CLEARING OF THE BILATERAL LOWER LOBE PNEUMON IA COMPARED TO OLD EXAM.
[2017-11-27 00:43] VITALS: BP 175/84; PULSE 65; RESP 17; TEMP 98.7
== END 2017-11-27 00:43 | disposition home or self-care (01) ==
LOC: EC 21:39
DX: N83.209 Unspecified ovarian cyst, unspecified side (principal); K59.00 Constipation, unspecified; R53.1 Weakness; E78.5 Hyperlipidemia, unspecified; I10 Essential (primary) hypertension; G47.33 Obstructive sleep apnea (adult) (pediatric); F32.9 Major depressive disorder, single episode, unspecified; F41.9 Anxiety disorder, unspecified; I25.2 Old myocardial infarction; E66.9 Obesity, unspecified; F17.200 Nicotine dependence, unspecified, uncomplicated; Z79.02 Long term (current) use of antithrombotics/antiplatelets; Z79.4 Long term (current) use of insulin; Z79.82 Long term (current) use of aspirin; Z79.899 Other long term (current) drug therapy; Z88.1 Allergy status to other antibiotic agents; Z88.2 Allergy status to sulfonamides; Z91.013 Allergy to seafood; Z91.018 Allergy to other foods; Z91.041 Radiographic dye allergy status; Z86.73 Personal history of transient ischemic attack (TIA), and cerebral infarction without residual deficits; Z86.79 Personal history of other diseases of the circulatory system; Z85.41 Personal history of malignant neoplasm of cervix uteri; Z90.49 Acquired absence of other specified parts of digestive tract; Z99.89 Dependence on other enabling machines and devices; Z80.0 Family history of malignant neoplasm of digestive organs; Z90.710 Acquired absence of both cervix and uterus; Z68.35 Body mass index [BMI] 35.0-35.9, adult
CPT/HCPCS: 36415; 74176; 80053; 81001; 81025; 82150; 83690; 85025; 99284

== ENCOUNTER 2017-12-16 15:59 | Emergency (ER) | payer OTHER ==
[2017-12-16 16:50] VITALS: TEMP 98.8
[2017-12-16] MEDS ORDERED: SODIUM CHLORIDE 0.9% 500 ML IV STA (17:19)
[2017-12-16] MEDS ORDERED: HYDROmorphone 0.5 MG/0.5 ML SYRINGE IVP STA ×2 (17:25→18:55)
[2017-12-16] MEDS ORDERED: ONDANSETRON 4 MG/2 ML VIAL IVP STA (17:25)
--- NOTE | 2017-12-16 17:35 | ED ---
Abdominal Pain HPI - General Chief Complaint: Abdominal Pain Stated Complaint: Abd Pain Time Seen by Provider: 12/16/17 17:15 Source: patient, family, RN notes reviewed Mode of arrival: wheelchair Limitations: no limitations - History of Present Illness Initial Comments: This a 47 year old female presents emergency Department chief complaint right- sided abdominal pain. Patient states she was seen here approximately 3 weeks ago for similar her pain. She states is seen. Going away but last 24 are she' s had worsening pain. She states it's in same spot. Patient denies fever, chills, chest pain, shortness breath, vomiting, diarrhea constipation. She's had slight nausea. Denies any dysuria, hematuria. She's had a prior hysterectomy, and cholecystectomy. - Related Data Home Medications Medication Instructions Recorded Confirmed Fenofibrate [Lofibra] 160 mg PO DAILY 03/02/15 12/16/17 Pregabalin [Lyrica] 150 mg PO BID 06/25/15 12/16/17 Cholecalciferol [Vitamin D3] 2,000 unit PO DAILY 01/15/16 12/16/17 INSULIN LISPRO (humaLOG) [humaLOG] See Protocol SQ AC-TID 01/15/16 12/16/17 Insulin Glargine [Lantus] 45 unit SQ DAILY 01/15/16 12/16/17 Folic Acid 1 mg PO DAILY 03/24/16 12/16/17 DULoxetine HCL [Cymbalta] 60 mg PO DAILY 04/13/16 12/16/17 Clopidogrel [Plavix] 75 mg PO HS 07/30/16 12/16/17 lamoTRIgine 200 mg PO BID 07/30/16 12/16/17 Albuterol Nebulized [Ventolin 2.5 mg INHALATION RT-Q4H PRN 03/27/17 12/16/17 Nebulized] Hydrocodone/Acetaminophen [[place] 1 tab PO DAILY PRN 03/27/17 12/16/17 7.5-325 Tablet] Isosorbide Mononitrate ER [Imdur] 30 mg PO DAILY 03/27/17 12/16/17 Magnesium Gluconate [Magonate] 250 mg PO DAILY 03/27/17 12/16/17 Vitamin B Complex 1 cap PO DAILY 03/27/17 12/16/17 ALPRAZolam [Xanax] 2 mg PO HS 11/26/17 12/16/17 Aspirin [Adult Low Dose Aspirin EC] 81 mg PO DAILY 11/26/17 12/16/17 Atorvastatin [Lipitor] 80 mg PO DAILY 11/26/17 12/16/17 Carvedilol [Coreg] 12.5 mg PO BID 11/26/17 12/16/17 Dapagliflozin Propanediol [Farxiga] 5 mg PO DAILY 11/26/17 12/16/17 Enalapril [Vasotec] 10 mg PO BID 11/26/17 12/16/17 Nitroglycerin Sl Tabs [Nitrostat] 0.4 mg SUBLINGUAL Q5M PRN 11/26/17 12/16/17 Varenicline [Chantix Continuing 1 mg PO BID 11/26/17 12/16/17 Pack] Previous Rx's Medication Instructions Recorded Citalopram Hydrobromide [CeleXA] 40 mg PO DAILY #1 tab 03/10/15 metFORMIN HCL 1,000 mg PO BID #0 03/29/17 Allergies Allergy/AdvReac Type Severity Reaction Status Date / Time Fish Containing Products Allergy Unknown Verified 12/16/17 17:35 Iodinated Contrast- Oral and Allergy throat Verified 12/16/17 17:35 IV Dye swelling [Iodinated Contrast Media - IV Dye] Sulfa (Sulfonamide Allergy throat Verified 12/16/17 17:35 Antibiotics) swelling sulfamethoxazole Allergy throat Verified 12/16/17 17:35 [From Septra] swelling trimethoprim [From Junra] Allergy throat Verified 12/16/17 17:35 swelling NUTS Allergy Unknown Uncoded 12/16/17 16:50 Review of Systems ROS Statement: Those systems with pertinent positive or pertinent negative responses have been documented in the HPI. ROS Other: All systems not noted in ROS Statement are negative. 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 andper pt' s spouse- slight foot drag when tired.diabetes mellitus insulin-dependent, hypertension, hyperlipidemia, fibromyalgia, obstructive sleep apnea, MS, questionable hypercoagulable disease, anxiety, depression, obesity, ovarian cyst Last Myocardial Infarction Date:: unk History of Any Multi-Drug Resistant Organisms: None Reported Past Surgical History: Section, Cholecystectomy, Heart Catheterization With Stent, Hysterectomy, Tubal Ligation, Uterine Ablation Additional Past Surgical History / Comment(s): vein stripping right leg, radio frequency ablation of right back-02/22/2015, four stents on 04/03/16 and one on march 05 Past Anesthesia/Blood Transfusion Reactions: Motion Sickness Additional Past Anesthesia/Blood Transfusion Reaction / Comment(s): mild clausterphobia Date of Last Stent Placement:: 2003 Past Psychological History: Anxiety, Depression Smoking Status: Current every day smoker Past Alcohol Use History: None Reported Past Drug Use History: None Reported - Past Family History Father Family Medical History: Congestive Heart Failure (CHF), Coronary Artery Disease (CAD), Diabetes Mellitus Mother Family Medical History: Cancer, Hypertension, Respiratory Disorder Additional Family Medical History / Comment(s): emphysema, colon CA General Exam Limitations: no limitations General appearance: alert, in no apparent distress Head exam: Present: atraumatic, normocephalic, normal inspection Respiratory exam: Present: normal lung sounds bilaterally. Absent: respiratory distress, wheezes, rales, rhonchi, stridor Cardiovascular Exam: Present: regular rate, normal rhythm, normal heart sounds. Absent: systolic murmur, diastolic murmur, rubs, gallop, clicks GI/Abdominal exam: Present: soft, tenderness (Mild to moderate right-sided), normal bowel sounds. Absent: distended, guarding, rebound, rigid Back exam: Absent: CVA tenderness (R), CVA tenderness (L) Skin exam: Present: warm, dry, intact, normal color. Absent: rash Course Vital Signs 12/16/17 16:47 Temperature 98.8 F Pulse Rate 75 Respiratory 18 Rate Blood Pressure 117/73 O2 Sat by Pulse 98 Oximetry Medical Decision Making - Medical Decision Making 47-year-old female presented emergency Department for right-sided abdominal pain. Patient had similar pain a few weeks ago at CT which showed ovarian cyst 4 cm. She does have 5.4 cm ovarian cyst with septation. Is no evidence of torsion. Patient's labwork is unremarkable. Patient was given pain medication emergency from she states she did feel better. She is advised to try and contact her transportation services representative again for follow-up for this cyst. - Lab Data Result diagrams: 12/16/17 17:35 12/16/17 17:35 Lab Results 12/16/17 12/16/17 12/16/17 Range/Units 17:35 17:35 17:35 WBC 12.0 H (3.8-10.6) k/uL RBC 4.86 (3.80-5.40) m/uL Hgb 15.3 (11.4-16.0) gm/dL Hct 47.1 H (34.0-46.0) % MCV 96.8 (80.0-100.0) fL MCH 31.4 (25.0-35.0) pg MCHC 32.4 (31.0-37.0) g/dL RDW 13.1 (11.5-15.5) % Plt Count 254 (150-450) k/uL Neutrophils % 68 % Lymphocytes % 26 % Monocytes % 3 % Eosinophils % 1 % Basophils % 0 % Neutrophils # 8.2 H (1.3-7.7) k/uL Lymphocytes # 3.1 (1.0-4.8) k/uL Monocytes # 0.4 (0-1.0) k/uL Eosinophils # 0.2 (0-0.7) k/uL Basophils # 0.0 (0-0.2) k/uL Sodium 138 (137-145) mmol/L Potassium 4.3 (3.5-5.1) mmol/L Chloride 100 (98-107) mmol/L Carbon Dioxide 24 (22-30) mmol/L Anion Gap 14 mmol/L BUN 16 (7-17) mg/dL Creatinine 0.97 (0.52-1.04) mg/dL Est GFR (MDRD) Af Amer >60 (>60 ml/min/1.73 sqM) Est GFR (MDRD) Non-Af >60 (>60 ml/min/1.73 sqM) Glucose 151 H (74-99) mg/dL Calcium 10.3 H (8.4-10.2) mg/dL Total Bilirubin 0.5 (0.2-1.3) mg/dL AST 25 (14-36) U/L ALT 29 (9-52) U/L Alkaline Phosphatase 77 (38-126) U/L Total Protein 7.0 (6.3-8.2) g/dL Albumin 4.4 (3.5-5.0) g/dL Amylase 31 (30-110) U/L Lipase 71 (23-300) U/L Urine Color Yellow Urine Appearance Clear (Clear) Urine pH 5.0 (5.0-8.0) Ur Specific [place] 1.016 (1.001-1.035) Urine Protein Negative (Negative) Urine Glucose (UA) 4+ H (Negative) Urine Ketones Negative (Negative) Urine Blood Negative (Negative) Urine Nitrite Negative (Negative) Urine Bilirubin Negative (Negative) Urine Urobilinogen <2.0 (<2.0) mg/dL Ur Leukocyte Esterase Negative (Negative) Disposition Clinical Impression: Right ovarian cyst Disposition: HOME SELF-CARE Condition: Stable Instructions: Ovarian Cyst (ED) Additional Instructions: Please return to the Emergency Department if symptoms worsen or any other concerns. Referrals: Dagmar Hennessy MD [Primary Care Provider] - 1-2 days Time of Disposition: 19:00
[2017-12-16 17:44] LABS: Appearance,Urine Clear (Clear); Basophils % (A) 0 %; Bilirubin,Urine Negative (Negative); Blood,Urine Negative (Negative); Color,Urine Yellow; Eosinophils # (A) 0.2 k/uL (0-0.7); Eosinophils % (A) 1 %; Glucose,Urine (UA) 4+ (Negative); HCT 47.1 % (34.0-46.0); HGB 15.3 gm/dL (11.4-16.0); Ketones,Urine Negative (Negative); Leukocyte Esterase,Urine Negative (Negative); Lymphocytes # (A) 3.1 k/uL (1.0-4.8); Lymphocytes % (A) 26 %; MCH 31.4 pg (25.0-35.0); MCHC 32.4 g/dL (31.0-37.0); MCV 96.8 fL (80.0-100.0); Mean Platelet Volume 8.2; Monocytes # (A) 0.4 k/uL (0-1.0); Monocytes % (A) 3 %; Neutrophils # (A) 8.2 k/uL (1.3-7.7); Neutrophils % (A) 68 %; Nitrite,Urine Negative (Negative); Platelet Count 254 k/uL (150-450); Protein,Urine Negative (Negative); RBC 4.86 m/uL (3.80-5.40); RDW 13.1 % (11.5-15.5); Specific Gravity,Urine 1.016 (1.001-1.035); Urobilinogen,Urine <2.0 mg/dL (<2.0)
[2017-12-16 17:53] LABS: ALT 29 U/L (9-52); AST 25 U/L (14-36); Albumin 4.4 g/dL (3.5-5.0); Alkaline Phosphatase 77 U/L (38-126); Amylase 31 U/L (30-110); Anion Gap 14 mmol/L; Blood Urea Nitrogen 16 mg/dL (7-17); Calcium 10.3 mg/dL (8.4-10.2); Carbon Dioxide 24 mmol/L (22-30); Chloride 100 mmol/L (98-107); Glucose 151 mg/dL (74-99); Lipase 71 U/L (23-300); Potassium 4.3 mmol/L (3.5-5.1); Sodium 138 mmol/L (137-145); Total Bilirubin 0.5 mg/dL (0.2-1.3)
--- NOTE | 2017-12-16 18:54 | US ---
EXAMINATION TYPE: US transvaginal DATE OF EXAM: 12/16/2017 COMPARISON: NONE CLINICAL HISTORY: Pain. Pain, partial hysterectomy 2006. TECHNIQUE: Transvaginal (TV). EXAM MEASUREMENTS: Uterus: Surgically absent cm Endometrial Stripe: Surgically absent cm Right Ovary: 6.8 x 3.0 x 5.3 cm Left Ovary: Obscured by overlying bowel gas. cm 1. Uterus: Surgically absent 2. Endometrium: Surgically absent 3. Right Ovary: Two cystic areas largest measuring 5.4 x 2.5 x 3.7 cm with a septation seen. Ovary i s enlarged. 4. Left Ovary: Obscured by overlying bowel gas Spectral, color and waveform doppler imaging shows good arterial and venous flow within the right o vary; there is no evidence for right ovarian torsion. 5. Bilateral Adnexa: wnl 6. Posterior cul-de-sac: wnl Enlarged right ovary. Two cystic areas seen largest with a septation seen measuring 5.5 x 2.5 x 3.7 c m. IMPRESSION: Hysterectomy. Cystic enlargement of the right ovary with multiple cysts. No solid adnexal mass. No free fluid. No evidence of right ovarian torsion on the color Doppler images. Left ovary is not identified.
[2017-12-16 19:21] VITALS: BP 135/80; PULSE 18; RESP 116
== END 2017-12-16 19:21 | disposition home or self-care (01) ==
LOC: EC 15:59
DX: N83.201 Unspecified ovarian cyst, right side (principal); E11.9 Type 2 diabetes mellitus without complications; E78.5 Hyperlipidemia, unspecified; I25.2 Old myocardial infarction; I10 Essential (primary) hypertension; M79.7 Fibromyalgia; G25.81 Restless legs syndrome; I25.10 Atherosclerotic heart disease of native coronary artery without angina pectoris; G47.33 Obstructive sleep apnea (adult) (pediatric); E66.9 Obesity, unspecified; F32.9 Major depressive disorder, single episode, unspecified; F41.9 Anxiety disorder, unspecified; F17.200 Nicotine dependence, unspecified, uncomplicated; Z85.41 Personal history of malignant neoplasm of cervix uteri; Z86.73 Personal history of transient ischemic attack (TIA), and cerebral infarction without residual deficits; Z99.89 Dependence on other enabling machines and devices; Z90.49 Acquired absence of other specified parts of digestive tract; Z98.890 Other specified postprocedural states; Z68.34 Body mass index [BMI] 34.0-34.9, adult; Z91.041 Radiographic dye allergy status; Z88.2 Allergy status to sulfonamides; Z91.018 Allergy to other foods; Z91.013 Allergy to seafood; Z79.4 Long term (current) use of insulin; Z79.82 Long term (current) use of aspirin; Z79.02 Long term (current) use of antithrombotics/antiplatelets; Z79.899 Other long term (current) drug therapy
CPT/HCPCS: 99284; 96374; 96376; 96375; 96361; 36415; 80053; 82150; 83690; 85025; 81003; 93976; 76830; J2405; J1170

== ENCOUNTER 2017-12-28 18:20 | Observation (INO) | payer OTHER ==
[2017-12-28] MEDS ORDERED: NITROGLYCERIN OINT 1 INCH/GM PACKET TOPICAL STA (18:44)
[2017-12-28] MEDS ORDERED: MORPHINE SULFATE 4 MG/ML SYRINGE IV STA (18:44)
[2017-12-28] MEDS ORDERED: ASPIRIN 81 MG PO STA (18:44)
[2017-12-28] MEDS ORDERED: SODIUM CHLORIDE 0.9% 1,000 ML IV STA (18:44)
[2017-12-28] MEDS ORDERED: ONDANSETRON 4 MG/2 ML VIAL IVP STA (18:44)
--- NOTE | 2017-12-28 18:52 | ED ---
Chest Pain HPI - General Chief Complaint: Chest Pain Stated Complaint: CHEST PAIN, TOOK 2 NITRO Time Seen by Provider: 12/28/17 18:27 Source: patient Mode of arrival: wheelchair Limitations: no limitations - History of Present Illness Initial Comments: 37 years old female with multiple multiple comorbidities she has a history of heart disease he otherwise stents in place unfortunately she has diabetes hypertension and had a sever strokes according to her presents with the chest pain which started about 2 hours ago she tried a nitro nitro that didn't help with the pain and now pain is up to 8/10 she is short-winded deep breaths worsen the pain she denies any fever no chills she is not coughing up any phlegm. Denies any headaches no migraines no abdominal pain no frequency urgency urgency dysuria no symptoms of TIA or CVA - Related Data Home Medications Medication Instructions Recorded Confirmed Fenofibrate [Lofibra] 160 mg PO DAILY 03/02/15 12/28/17 Pregabalin [Lyrica] 150 mg PO BID 06/25/15 12/28/17 Cholecalciferol [Vitamin D3] 2,000 unit PO DAILY 01/15/16 12/28/17 INSULIN LISPRO (humaLOG) [humaLOG] See Protocol SQ AC-TID 01/15/16 12/28/17 Insulin Glargine [Lantus] 45 unit SQ DAILY 01/15/16 12/28/17 Folic Acid 1 mg PO DAILY 03/24/16 12/28/17 DULoxetine HCL [Cymbalta] 60 mg PO DAILY 04/13/16 12/28/17 Clopidogrel [Plavix] 75 mg PO HS 07/30/16 12/28/17 lamoTRIgine 200 mg PO BID 07/30/16 12/28/17 Albuterol Nebulized [Ventolin 2.5 mg INHALATION RT-Q4H PRN 03/27/17 12/28/17 Nebulized] Hydrocodone/Acetaminophen [[place] 1 tab PO DAILY PRN 03/27/17 12/28/17 7.5-325 Tablet] Isosorbide Mononitrate ER [Imdur] 30 mg PO DAILY 03/27/17 12/28/17 Magnesium Gluconate [Magonate] 250 mg PO DAILY 03/27/17 12/28/17 Vitamin B Complex 1 cap PO DAILY 03/27/17 12/28/17 ALPRAZolam [Xanax] 2 mg PO HS 11/26/17 12/28/17 Aspirin [Adult Low Dose Aspirin EC] 81 mg PO DAILY 11/26/17 12/28/17 Atorvastatin [Lipitor] 80 mg PO DAILY 11/26/17 12/28/17 Carvedilol [Coreg] 12.5 mg PO BID 11/26/17 12/28/17 Dapagliflozin Propanediol [Farxiga] 5 mg PO DAILY 11/26/17 12/28/17 Enalapril [Vasotec] 10 mg PO BID 11/26/17 12/28/17 Nitroglycerin Sl Tabs [Nitrostat] 0.4 mg SUBLINGUAL Q5M PRN 11/26/17 12/28/17 Varenicline [Chantix Continuing 1 mg PO BID 11/26/17 12/28/17 Pack] Previous Rx's Medication Instructions Recorded Citalopram Hydrobromide [CeleXA] 40 mg PO DAILY #1 tab 03/10/15 metFORMIN HCL 1,000 mg PO BID #0 03/29/17 Allergies Allergy/AdvReac Type Severity Reaction Status Date / Time Fish Containing Products Allergy Unknown Verified 12/28/17 18:52 Iodinated Contrast- Oral and Allergy throat Verified 12/28/17 18:52 IV Dye swelling [Iodinated Contrast Media - IV Dye] Sulfa (Sulfonamide Allergy throat Verified 12/28/17 18:52 Antibiotics) swelling sulfamethoxazole Allergy throat Verified 12/28/17 18:52 [From Septra] swelling trimethoprim [From Septra] Allergy throat Verified 12/28/17 18:52 swelling NUTS Allergy Unknown Uncoded 12/28/17 18:52 Review of Systems ROS Statement: Those systems with pertinent positive or pertinent negative responses have been documented in the HPI. ROS Other: All systems not noted in ROS Statement are negative. EKG Findings - EKG Comments: EKG Findings:: EKG is sinus rhythm and with ventricular rate is 72 ID interval is 170 QRS duration is 150 QT/QTc is 442/483. 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 andper pt' s spouse- slight foot drag when tired.diabetes mellitus insulin-dependent, hypertension, hyperlipidemia, fibromyalgia, obstructive sleep apnea, MS, questionable hypercoagulable disease, anxiety, depression, obesity, ovarian cyst Last Myocardial Infarction Date:: unk History of Any Multi-Drug Resistant Organisms: None Reported Past Surgical History: Section, Cholecystectomy, Heart Catheterization With Stent, Hysterectomy, Tubal Ligation, Uterine Ablation Additional Past Surgical History / Comment(s): vein stripping right leg, radio frequency ablation of right back-02/22/2015, four stents on 04/03/16 and one on march 05 Past Anesthesia/Blood Transfusion Reactions: Motion Sickness Additional Past Anesthesia/Blood Transfusion Reaction / Comment(s): mild clausterphobia Date of Last Stent Placement:: 2003 Past Psychological History: Anxiety, Depression Smoking Status: Current every day smoker Past Alcohol Use History: None Reported Past Drug Use History: None Reported - Past Family History Father Family Medical History: Congestive Heart Failure (CHF), Coronary Artery Disease (CAD), Diabetes Mellitus Mother Family Medical History: Cancer, Hypertension, Respiratory Disorder Additional Family Medical History / Comment(s): emphysema, colon CA General Exam - General Exam Comments Initial Comments: General: The patient is awake and alert, in moderate to severe distress Skin: Skin is warm and dry and no rashes or lesions are noted. Eye: Pupils are equal, round and reactive to light, extra-ocular movements are intact; there is normal conjunctiva bilaterally. Ears, nose, mouth and throat: There are moist mucous membranes and no oral lesions. Neck: The neck is supple, there is no tenderness or JVD. Cardiovascular: There is a regular rate and rhythm. No murmur, rub or gallop is appreciated. Respiratory: To auscultation bilateral, no wheezing no rhonchi no distress respiratory benitez noticed Gastrointestinal: Soft, non-distended, non-tender abdomen without masses or organomegaly noted. There is no rebound or guarding present. Bowel sounds are unremarkable. Back: There is no tenderness to palpation in the midline. There is no obvious deformity. Musculoskeletal: Normal ROM, no tenderness, There is no pedal edema. There is no calf tenderness or swelling. No cords were appreciated. Neurological: CN II-XII intact, Cranial nerves III through XII are intact. There are no obvious motor or sensory deficits. Coordination appears grossly intact. Speech is normal. Psychiatric: Cooperative, appropriate mood & affect, normal judgment. Limitations: no limitations Course Vital Signs 12/28/17 18:22 Temperature 98.3 F Pulse Rate 71 Respiratory 20 Rate Blood Pressure 147/76 O2 Sat by Pulse 99 Oximetry Critical Care Time Total Critical Care Time: 30 Critical Care Time: Patient is a 47 years O female she has a very extensive history of heart disease her showed me her stent card she had [address] and a chest pain showed up from nowhere about towards ago and it's 06/06 and she said this pain is very similar to pains pain she had in the past and she also has diabetes and history of hypertension and history of hyperlipidemia and TIA and CVAs considering this I discussed that the with the Dr. galicia, he went ahead and heparinized her this was discussed with the family as well they agreed and she be admitted as acute coronary syndrome/unstable angina to the hospital and cardiology be consulted, she had nitro she had of morphine that took the edge off but she continued to have a pain but it's better Disposition Clinical Impression: Chest pain, History of ischemic heart disease, Unstable angina Disposition: TRANSFER TO PSYCH HOSP/UNIT Condition: Good Referrals: Dagmar Hennessy MD [Primary Care Provider] - 1-2 days
[2017-12-28] MEDS ORDERED: HEPARIN SODIUM,PORCINE 5,000 UNIT/ML 1 ML VIAL IV PRN (18:53)
[2017-12-28] MEDS ORDERED: HEPARIN SODIUM,PORCINE 5,000 UNIT/ML 1 ML VIAL IV ONE (18:53)
[2017-12-28] MEDS ORDERED: HEPARIN SOD,PORK IN 0.45% NACL 25,000 UNIT in 0.45% NACL 1 500ML.BAG IV SCH (19:00)
[2017-12-28 19:05] LABS: Basophils % (A) 0 %; Eosinophils # (A) 0.1 k/uL (0-0.7); Eosinophils % (A) 1 %; HCT 44.8 % (34.0-46.0); HGB 15.1 gm/dL (11.4-16.0); Lymphocytes # (A) 3.7 k/uL (1.0-4.8); Lymphocytes % (A) 33 %; MCH 31.2 pg (25.0-35.0); MCHC 33.7 g/dL (31.0-37.0); MCV 92.7 fL (80.0-100.0); Mean Platelet Volume 8.5; Monocytes # (A) 0.5 k/uL (0-1.0); Monocytes % (A) 4 %; Neutrophils # (A) 6.6 k/uL (1.3-7.7); Neutrophils % (A) 60 %; Platelet Count 218 k/uL (150-450); RBC 4.83 m/uL (3.80-5.40); RDW 13.3 % (11.5-15.5); WBC 11.1 k/uL (3.8-10.6)
[2017-12-28 19:15] LABS: ALT 29 U/L (9-52); AST 26 U/L (14-36); Albumin 4.6 g/dL (3.5-5.0); Alkaline Phosphatase 84 U/L (38-126); Amylase 45 U/L (30-110); Anion Gap 14 mmol/L; Blood Urea Nitrogen 19 mg/dL (7-17); Calcium 10.3 mg/dL (8.4-10.2); Carbon Dioxide 22 mmol/L (22-30); Chloride 101 mmol/L (98-107); Glucose 196 mg/dL (74-99); Lipase 150 U/L (23-300); Magnesium 1.5 mg/dL (1.6-2.3); Potassium 4.4 mmol/L (3.5-5.1); Sodium 137 mmol/L (137-145); Total Bilirubin 0.6 mg/dL (0.2-1.3); Total Protein 7.2 g/dL (6.3-8.2)
[2017-12-28 19:16] LABS: D-Dimer 0.26 mg/L FEU (<0.60)
[2017-12-28 19:21] LABS: INR 1.1 (<1.2); Prothrombin Time 11.1 sec (9.0-12.0)
--- NOTE | 2017-12-28 19:28 | XR ---
EXAMINATION TYPE: XR chest 2V DATE OF EXAM: 12/28/2017 COMPARISON: 03/27/2017 INDICATION: Chest pain TECHNIQUE: Frontal and lateral views of the chest are obtained. FINDINGS: The heart size is normal. The pulmonary vasculature is normal. The lungs are clear. IMPRESSION: 1. No acute pulmonary process.
[2017-12-28 19:34] LABS: Creatine Kinase 55 U/L (30-135)
[2017-12-28 19:47] LABS: Creatine Kinase MB 0.9 ng/mL (0.0-2.4); Troponin I <0.012 ng/mL (0.000-0.034)
[2017-12-28] MEDS ORDERED: MORPHINE SULFATE 4 MG/ML SYRINGE IV PRN (19:56)
[2017-12-28] MEDS ORDERED: NITROGLYCERIN SL TABS 0.4 MG TAB SUBLINGUAL PRN (19:56)
[2017-12-28] MEDS ORDERED: ALBUTEROL NEBULIZED 2.5 MG/3 ML INHALATION PRN (20:01)
[2017-12-28 21:16] LABS: Glucose,Whole Blood 158 mg/dL (75-99)
[2017-12-28] MEDS: CLOPIDOGREL 75 MG TAB PO SCH ×2 (21:39→21:48)
[2017-12-28] MEDS: CARVEDILOL 12.5 MG TAB PO SCH (21:45)
[2017-12-28] MEDS: lamoTRIgine 100 MG TAB PO SCH (21:45)
[2017-12-28] MEDS: ALPRAZolam 1 MG TAB PO SCH (21:45)
[2017-12-28] MEDS: VARENICLINE 1 MG TAB PO SCH (21:46)
[2017-12-28] MEDS: PREGABALIN 75 MG CAP PO SCH (21:46)
[2017-12-28] MEDS: metFORMIN 500 MG TAB PO SCH (21:46)
[2017-12-28] MEDS: LISINOPRIL 20 MG TAB PO SCH (21:46)
[2017-12-29 01:53] LABS: Creatine Kinase 47 U/L (30-135)
[2017-12-29 02:07] LABS: Troponin I <0.012 ng/mL (0.000-0.034)
[2017-12-29 02:12] LABS: Creatine Kinase MB 0.7 ng/mL (0.0-2.4)
[2017-12-29 06:02] LABS: Glucose,Whole Blood 241 mg/dL (75-99)
[2017-12-29] MEDS: metFORMIN 500 MG TAB PO SCH ×2 (06:24→17:28)
[2017-12-29] MEDS: INSULIN ASPART 100 UNIT/ML 1 ML 10 ML VIAL SQ SCH ×4 (06:30→20:42)
[2017-12-29] MEDS: CARVEDILOL 12.5 MG TAB PO SCH ×2 (06:30→17:28)
[2017-12-29 08:10] LABS: Basophils # (A) 0.1 k/uL (0-0.2); Basophils % (A) 1 %; Eosinophils # (A) 0.2 k/uL (0-0.7); Eosinophils % (A) 2 %; HCT 43.1 % (34.0-46.0); HGB 14.6 gm/dL (11.4-16.0); Lymphocytes # (A) 3.3 k/uL (1.0-4.8); Lymphocytes % (A) 34 %; MCH 32.2 pg (25.0-35.0); MCHC 33.8 g/dL (31.0-37.0); MCV 95.4 fL (80.0-100.0); Mean Platelet Volume 7.8; Monocytes # (A) 0.4 k/uL (0-1.0); Monocytes % (A) 4 %; Neutrophils # (A) 5.7 k/uL (1.3-7.7); Neutrophils % (A) 58 %; Platelet Count 183 k/uL (150-450); RBC 4.52 m/uL (3.80-5.40); RDW 13.4 % (11.5-15.5); WBC 9.7 k/uL (3.8-10.6)
[2017-12-29 08:29] LABS: Creatine Kinase 44 U/L (30-135)
[2017-12-29 08:42] LABS: Creatine Kinase MB 0.6 ng/mL (0.0-2.4); Troponin I <0.012 ng/mL (0.000-0.034)
[2017-12-29 08:43] LABS: Anion Gap 11 mmol/L; Blood Urea Nitrogen 18 mg/dL (7-17); Calcium 9.8 mg/dL (8.4-10.2); Carbon Dioxide 23 mmol/L (22-30); Chloride 103 mmol/L (98-107); Cholesterol 124 mg/dL (<200); Glucose 180 mg/dL (74-99); HDL Cholesterol 28 mg/dL (40-60); Potassium 3.7 mmol/L (3.5-5.1); Sodium 137 mmol/L (137-145); Triglycerides 478 mg/dL (<150)
[2017-12-29] MEDS ORDERED: ATORVASTATIN 80 MG TAB PO SCH (09:00)
--- NOTE | 2017-12-29 09:21 | P.CRDCN ---
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 Subsequent to her stent placement the patient did undergo a cardiac catheterization in February 2017 which revealed patent stents within the LAD, diagonal and right coronary artery with 30-40% stenosis involving the proximal right. Patient states they were driving home from [place] last evening when she developed a dull ache in her chest, as the drive continued the ache in the chest and tightness significantly worsened and patient became quite short of breath. She did take 2 sublingual nitroglycerin on route here. According to the patient she has been using nitroglycerin off and on at home for intermittent chest discomfort. Her EKG on arrival here showed a normal sinus rhythm with minimal ST-T wave changes in the lateral leads. Chest x-ray does not reveal any acute pulmonary process. Blood pressure 128/78, heart rate in the 60s, 92% on room air. White blood cell count on admission 11.1, hemoglobin 14.6, platelet count 183. D-dimer 0.26. Troponins have been negative 3. Magnesium level on admission 1.5. Cholesterol 124, triglycerides 478, HDL 28. Patient was initiated on IV heparin on arrival here, continues to be on IV heparin along with aspirin, Lipitor 80, Coreg, Plavix, Fenofibrate, lisinopril 20 mg twice a day Chantix. At the time of my examination this morning she is currently chest pain-free. 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 andper pt' s spouse- slight foot drag when tired.diabetes mellitus insulin-dependent, hypertension, hyperlipidemia, fibromyalgia, obstructive sleep apnea, MS, questionable hypercoagulable disease, anxiety, depression, obesity, ovarian cyst Last Myocardial Infarction Date:: unk History of Any Multi-Drug Resistant Organisms: None Reported Past Surgical History: Section, Cholecystectomy, Heart Catheterization With Stent, Hysterectomy, Tubal Ligation, Uterine Ablation Additional Past Surgical History / Comment(s): vein stripping right leg, radio frequency ablation of right back-02/22/2015, four stents on 04/03/16 and one on march 05 Past Anesthesia/Blood Transfusion Reactions: Motion Sickness Additional Past Anesthesia/Blood Transfusion Reaction / Comment(s): mild clausterphobia Date of Last Stent Placement:: 2003 Past Psychological History: Anxiety, Depression Smoking Status: Current every day smoker Past Alcohol Use History: None Reported Additional Past Alcohol Use History / Comment(s): Patient is a smoker of a half a pack of cigarettes per day for 25 years. She denies any medical marijuana, marijuana, street drug or alcohol use. Patient is on disability. She lives at home with her and 2 children. She does have a dog in the home. No recent travel. Past Drug Use History: None Reported - Past Family History Father Family Medical History: Congestive Heart Failure (CHF), Coronary Artery Disease (CAD), Diabetes Mellitus Mother Family Medical History: Cancer, Hypertension, Respiratory Disorder Additional Family Medical History / Comment(s): emphysema, colon CA Medications and Allergies Home Medications Medication Instructions Recorded Confirmed Type Fenofibrate [Lofibra] 160 mg PO DAILY 03/02/15 12/28/17 History Citalopram Hydrobromide [CeleXA] 40 mg PO DAILY #1 tab 03/10/15 12/28/17 Rx Pregabalin [Lyrica] 150 mg PO BID 06/25/15 12/28/17 History Cholecalciferol [Vitamin D3] 2,000 unit PO DAILY 01/15/16 12/28/17 History INSULIN LISPRO (humaLOG) [humaLOG] See Protocol SQ AC-TID 01/15/16 12/28/17 History Insulin Glargine [Lantus] 45 unit SQ DAILY 01/15/16 12/28/17 History Folic Acid 1 mg PO DAILY 03/24/16 12/28/17 History DULoxetine HCL [Cymbalta] 60 mg PO DAILY 04/13/16 12/28/17 History Clopidogrel [Plavix] 75 mg PO HS 07/30/16 12/28/17 History lamoTRIgine 200 mg PO BID 07/30/16 12/28/17 History Albuterol Nebulized [Ventolin 2.5 mg INHALATION RT-Q4H PRN 03/27/17 12/28/17 History Nebulized] Hydrocodone/Acetaminophen [[place] 1 tab PO DAILY PRN 03/27/17 12/28/17 History 7.5-325 Tablet] Isosorbide Mononitrate ER [Imdur] 30 mg PO DAILY 03/27/17 12/28/17 History Magnesium Gluconate [Magonate] 250 mg PO DAILY 03/27/17 12/28/17 History Vitamin B Complex 1 cap PO DAILY 03/27/17 12/28/17 History metFORMIN HCL 1,000 mg PO BID #0 03/29/17 12/28/17 Rx ALPRAZolam [Xanax] 2 mg PO HS 11/26/17 12/28/17 History Aspirin [Adult Low Dose Aspirin EC] 81 mg PO DAILY 11/26/17 12/28/17 History Atorvastatin [Lipitor] 80 mg PO DAILY 11/26/17 12/28/17 History Carvedilol [Coreg] 12.5 mg PO BID 11/26/17 12/28/17 History Dapagliflozin Propanediol [Farxiga] 5 mg PO DAILY 11/26/17 12/28/17 History Enalapril [Vasotec] 10 mg PO BID 11/26/17 12/28/17 History Nitroglycerin Sl Tabs [Nitrostat] 0.4 mg SUBLINGUAL Q5M PRN 11/26/17 12/28/17 History Varenicline [Chantix Continuing 1 mg PO BID 11/26/17 12/28/17 History Pack] Insulin Aspart [NovoLOG] 5 units SQ HS 12/29/17 12/29/17 History Insulin Aspart [NovoLOG] 11 units SQ AC-BRKFST 12/29/17 12/29/17 History Insulin Aspart [NovoLOG] 22 units SQ AC-LUNCH 12/29/17 12/29/17 History Insulin Aspart [NovoLOG] 25 units SQ AC-SUPPER 12/29/17 12/29/17 History Allergies Allergy/AdvReac Type Severity Reaction Status Date / Time Fish Containing Products Allergy Unknown Verified 12/28/17 18:52 Iodinated Contrast- Oral and Allergy throat Verified 12/28/17 18:52 IV Dye swelling [Iodinated Contrast Media - IV Dye] Sulfa (Sulfonamide Allergy throat Verified 12/28/17 18:52 Antibiotics) swelling sulfamethoxazole Allergy throat Verified 12/28/17 18:52 [From ] swelling trimethoprim [From ] Allergy throat Verified 12/28/17 18:52 swelling NUTS Allergy Unknown Uncoded 12/28/17 18:52 Physical Exam Vitals: Vital Signs Temp Pulse Pulse Resp BP BP Pulse Ox 12/29/17 03:21 97.6 F 68 16 128/78 92 L 12/29/17 00:00 97.2 F L 62 16 110/58 91 L 12/28/17 19:55 97.9 F 67 18 148/83 97 12/28/17 18:22 98.3 F 71 20 147/76 99 Intake and Output 12/28/17 12/29/17 12/29/17 22:59 06:59 14:59 Intake Total 481.484 169.376 Balance 481.484 169.376 Intake: IV 360 Heparin Sod,Pork in 0.45% 200 NaCl 25,000 unit In 0.45 % NaCl 1 500ml.bag @ 10.9 UNITS/KG/HR 19.97 mls/hr IV .Q24H SARAH[facility] Rx#: [id number] Sodium Chloride 0.9% 1, 160 000 ml @ 100 mls/hr IV . Q10H STA Rx#:[id number] Intake, IV Titration 121.484 169.376 Amount Heparin Sod,Pork in 0.45% 121.484 169.376 NaCl 25,000 unit In 0.45 % NaCl 1 500ml.bag @ 10.9 UNITS/KG/HR 19.97 mls/hr IV .Q24H SARAH[facility] Rx#: [id number] Other: Weight 91.626 kg 100.1 kg PHYSICAL EXAMINATION: HEENT: Head is atraumatic, normocephalic. Pupils equal, round. Neck is supple. There is no elevated jugular venous pressure. HEART EXAMINATION: Heart S1, S2 normal. No murmur or gallop heard. CHEST EXAMINATION: Lungs are clear to auscultation and precussion. No chest wall tenderness is noted on palpation or with deep breathing. ABDOMEN: Soft, nontender. Bowel sounds are heard. No organomegaly noted. EXTREMITIES: 2+ peripheral pulses with no evidence of peripheral edema and no calf tenderness noted. NEUROLOGIC patient is awake, alert and oriented -3. . Results 12/29/17 07:52 12/29/17 07:52 Cardiac Enzymes 12/28/17 12/28/17 12/29/17 Range/Units 18:53 18:53 01:13 AST 26 (14-36) U/L CK-MB (CK-2) 0.9 0.7 (0.0-2.4) ng/mL Troponin I <0.012 <0.012 (0.000-0.034) ng/mL 12/29/17 Range/Units 07:52 AST (14-36) U/L CK-MB (CK-2) 0.6 (0.0-2.4) ng/mL Troponin I <0.012 (0.000-0.034) ng/mL Coagulation 12/28/17 12/29/17 12/29/17 Range/Units 18:53 01:13 07:52 PT 11.1 (9.0-12.0) sec APTT 31.0 H 35.0 H 41.0 H (22.0-30.0) sec Lipids 12/29/17 Range/Units 07:52 Triglycerides 478 H (<150) mg/dL Cholesterol 124 (<200) mg/dL HDL Cholesterol 28 L (40-60) mg/dL CBC 12/28/17 12/29/17 Range/Units 18:53 07:52 WBC 11.1 H 9.7 (3.8-10.6) k/uL RBC 4.83 4.52 (3.80-5.40) m/uL Hgb 15.1 14.6 (11.4-16.0) gm/dL Hct 44.8 43.1 (34.0-46.0) % Plt Count 218 183 (150-450) k/uL Comprehensive Metabolic Panel 12/28/17 12/29/17 Range/Units 18:53 07:52 Sodium 137 137 (137-145) mmol/L Potassium 4.4 3.7 (3.5-5.1) mmol/L Chloride 101 103 (98-107) mmol/L Carbon Dioxide 22 23 (22-30) mmol/L BUN 19 H 18 H (7-17) mg/dL Creatinine 0.81 0.80 (0.52-1.04) mg/dL Glucose 196 H 180 H (74-99) mg/dL Calcium 10.3 H 9.8 (8.4-10.2) mg/dL AST 26 (14-36) U/L ALT 29 (9-52) U/L Alkaline Phosphatase 84 (38-126) U/L Total Protein 7.2 (6.3-8.2) g/dL Albumin 4.6 (3.5-5.0) g/dL Current Medications Generic Name Dose Route Start Last Admin Trade Name Freq PRN Reason Stop Dose Admin Hydrocodone Bitart/Acetaminophen 1 each 12/28/17 20:01 [place] 7.5-325 PO DAILY PRN Moderate Pain Albuterol Sulfate 2.5 mg 12/28/17 20:01 Ventolin Nebulized INHALATION RT-Q4H PRN Shortness Of Breath Alprazolam 2 mg 12/28/17 21:00 12/28/17 21:45 Xanax PO 2 mg HS [facility] Administration Aspirin 325 mg 12/29/17 09:00 Aspirin PO DAILY [facility] Atorvastatin Calcium 80 mg 12/29/17 09:00 Lipitor PO DAILY [facility] Carvedilol 12.5 mg 12/28/17 21:00 12/29/17 06:30 Coreg PO 12.5 mg BID-W/MEALS [facility] Administration Cholecalciferol 2,000 unit 12/29/17 12:00 Vitamin D3 PO 1200 [facility] Citalopram Hydrobromide 40 mg 12/29/17 09:00 Celexa PO DAILY [facility] Clopidogrel Bisulfate 75 mg 12/28/17 21:00 12/28/17 21:48 Plavix PO 75 mg HS [facility] Administration Duloxetine HCl 60 mg 12/29/17 09:00 Cymbalta PO DAILY [facility] Fenofibrate 160 mg 12/29/17 09:00 Lofibra PO DAILY [facility] Folic Acid 1 mg 12/29/17 12:00 Folic Acid PO 1200 [facility] Heparin Sodium (Porcine) 0 unit 12/28/17 18:53 12/29/17 02:06 Heparin IV 4,000 unit PER PROTOCOL PRN Administration Low PTT Protocol Heparin Sodium/Sodium Chloride 500 mls @ 19.97 mls/hr 12/28/17 19:00 08:43 25,000 unit/ Sodium Chloride IV 15.9 units/kg/hr .Q24H SARAH[facility] 29.13 mls/hr Protocol Titration 10.9 UNITS/KG/HR Insulin Aspart 0 unit 12/29/17 07:30 12/29/17 06:30 Novolog SQ 3 unit ACHS [facility] Administration Protocol Insulin Detemir 45 unit 12/29/17 09:00 Levemir SQ DAILY [facility] Isosorbide Mononitrate 30 mg 12/29/17 09:00 Imdur PO DAILY [facility] Lamotrigine 200 mg 12/28/17 21:00 12/28/17 21:45 Lamictal PO 200 mg BID [facility] Administration Lisinopril 20 mg 12/28/17 21:00 12/28/17 21:46 Zestril PO 20 mg BID [facility] Administration Magnesium Oxide 400 mg 12/29/17 09:00 Mag-Ox PO DAILY [facility] Metformin HCl 1,000 mg 12/28/17 21:00 12/29/17 06:24 Glucophage PO Not Given BID-W/MEALS [facility] Morphine Sulfate 4 mg 12/28/17 19:56 Morphine Sulfate (Inj) IV Q5M PRN Chest Pain Nitroglycerin 0.4 mg 12/28/17 19:56 Nitrostat SUBLINGUAL Q5M PRN Chest Pain Non-Formulary Medication 5 mg 12/29/17 09:00 Dapagliflozin Propanediol [Farxiga] PO DAILY [facility] Pregabalin 150 mg 12/28/17 21:00 12/28/17 21:46 Lyrica PO 150 mg BID [facility] Administration Varenicline 1 mg 12/28/17 21:00 12/28/17 21:46 Chantix PO 1 mg BID [facility] Administration Vitamin B Complex/Vit C/Vit E/Zinc 1 each 12/29/17 12:00 Z-Bec PO DAILY@1200 [facility] Intake and Output 12/28/17 12/29/17 12/29/17 22:59 06:59 14:59 Intake Total 481.484 169.376 Balance 481.484 169.376 Intake: IV 360 Heparin Sod,Pork in 0.45% 200 NaCl 25,000 unit In 0.45 % NaCl 1 500ml.bag @ 10.9 UNITS/KG/HR 19.97 mls/hr IV .Q24H [facility] Rx#: [id number] Sodium Chloride 0.9% 1, 160 000 ml @ 100 mls/hr IV . Q10H [facility] Rx#:[id number] Intake, IV Titration 121.484 169.376 Amount Heparin Sod,Pork in 0.45% 121.484 169.376 NaCl 25,000 unit In 0.45 % NaCl 1 500ml.bag @ 10.9 UNITS/KG/HR 19.97 mls/hr IV .Q24H [facility] Rx#: [id number] Other: Weight 91.626 kg 100.1 kg 12/29/17 07:52 12/29/17 07:52 EKG Interpretations (text) EKG shows normal sinus rhythm with minimal ST-T wave changes in the lateral leads. Assessment and Plan Plan: Assessment and plan #1 Atypical chest pain. Troponins negative 3. EKG shows normal sinus rhythm with no acute changes. #2 history of coronary artery disease with prior stent placement of the LAD, RCA , and diagonal in 2015. Patient did have a heart cath performed in February 2017 which revealed patent stents within the LAD diagonal and RCA with a 30-40% stenosis in the proximal RCA #3 hypertension #4 hyperlipidemia #5 diabetes #6 nicotine dependence Plan Patient had a stress test a couple of weeks ago at [facility], we will obtain a record of that. Discontinue IV heparin. Further recommendations will be based on that. DNP note has been reviewed, I agree with a documented findings and plan of care. Patient was seen and examined.
[2017-12-29] MEDS: DULoxetine HCL 60 MG CAPSULE.DR PO SCH (10:12)
[2017-12-29] MEDS: FENOFIBRATE 160 MG TAB PO SCH (10:12)
[2017-12-29] MEDS: MAGNESIUM OXIDE 400 MG TAB PO SCH (10:12)
[2017-12-29] MEDS: ASPIRIN 325 MG TAB PO SCH (10:12)
[2017-12-29] MEDS: CITALOPRAM HYDROBROMIDE 20 MG TAB PO SCH (10:12)
[2017-12-29] MEDS: lamoTRIgine 100 MG TAB PO SCH ×2 (10:12→20:28)
[2017-12-29] MEDS: LISINOPRIL 20 MG TAB PO SCH ×2 (10:13→20:28)
[2017-12-29] MEDS: ISOSORBIDE MONONITRATE ER 30 MG TAB.ER.24H PO SCH (10:13)
[2017-12-29] MEDS: VARENICLINE 1 MG TAB PO SCH ×2 (10:13→20:28)
[2017-12-29] MEDS: INSULIN DETEMIR 100 UNIT/ML 10 ML VIAL SQ SCH (10:20)
[2017-12-29] MEDS: PREGABALIN 75 MG CAP PO SCH ×2 (10:20→20:41)
[2017-12-29] MEDS ORDERED: CHOLECALCIFEROL 1,000 UNIT TAB PO SCH (12:00)
[2017-12-29] MEDS ORDERED: FOLIC ACID 1 MG TAB PO SCH (12:00)
[2017-12-29] MEDS ORDERED: B COMPLEX-VIT C-VIT E-ZINC 1 EACH TAB PO SCH (12:00)
[2017-12-29 12:03] LABS: Glucose,Whole Blood 201 mg/dL (75-99)
[2017-12-29] MEDS: NON-FORMULARY DRUG (Dapagliflozin Propanediol [Farxiga] 5 MG) PO SCH (12:25)
--- NOTE | 2017-12-29 13:51 | P.HPIM ---
History of Present Illness H&P Date: 12/29/17 This is a 47-year-old female with complex past medical history noted below significant for coronary artery disease with prior stent placement who presented to the emergency room with chest pain. Patient said that the pain was achy in nature and felt like a tightness across her chest. She felt also short of breath. She took 2 sublingual nitroglycerin with some relief. She was evaluated in the emergency room and 12 leads EKG showed no acute ischemic changes. Serial troponin are negative. Patient was admitted to telemetry floor. She was seen and evaluated by cardiology. She is currently chest pain- free. Review of Systems Review of system: 14 points review of systems were obtained and were negative except to what were mentioned in the HPI. 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 andper pt' s spouse- slight foot drag when tired.diabetes mellitus insulin-dependent, hypertension, hyperlipidemia, fibromyalgia, obstructive sleep apnea, MS, questionable hypercoagulable disease, anxiety, depression, obesity, ovarian cyst Last Myocardial Infarction Date:: unk History of Any Multi-Drug Resistant Organisms: None Reported Past Surgical History: Section, Cholecystectomy, Heart Catheterization With Stent, Hysterectomy, Tubal Ligation, Uterine Ablation Additional Past Surgical History / Comment(s): vein stripping right leg, radio frequency ablation of right back-02/22/2015, four stents on 04/03/16 and one on march 05 Past Anesthesia/Blood Transfusion Reactions: Motion Sickness Additional Past Anesthesia/Blood Transfusion Reaction / Comment(s): mild clausterphobia Date of Last Stent Placement:: 2003 Past Psychological History: Anxiety, Depression Smoking Status: Current every day smoker Past Alcohol Use History: None Reported Additional Past Alcohol Use History / Comment(s): Patient is a smoker of a half a pack of cigarettes per day for 25 years. She denies any medical marijuana, marijuana, street drug or alcohol use. Patient is on disability. She lives at home with her and 2 children. She does have a dog in the home. No recent travel. Past Drug Use History: None Reported - Past Family History Father Family Medical History: Congestive Heart Failure (CHF), Coronary Artery Disease (CAD), Diabetes Mellitus Mother Family Medical History: Cancer, Hypertension, Respiratory Disorder Additional Family Medical History / Comment(s): emphysema, colon CA Medications and Allergies Home Medications Medication Instructions Recorded Confirmed Type Fenofibrate [Lofibra] 160 mg PO DAILY 03/02/15 12/28/17 History Citalopram Hydrobromide [CeleXA] 40 mg PO DAILY #1 tab 03/10/15 12/28/17 Rx Pregabalin [Lyrica] 150 mg PO BID 06/25/15 12/28/17 History Cholecalciferol [Vitamin D3] 2,000 unit PO DAILY 01/15/16 12/28/17 History INSULIN LISPRO (humaLOG) [humaLOG] See Protocol SQ AC-TID 01/15/16 12/28/17 History Insulin Glargine [Lantus] 45 unit SQ DAILY 01/15/16 12/28/17 History Folic Acid 1 mg PO DAILY 03/24/16 12/28/17 History DULoxetine HCL [Cymbalta] 60 mg PO DAILY 04/13/16 12/28/17 History Clopidogrel [Plavix] 75 mg PO HS 07/30/16 12/28/17 History lamoTRIgine 200 mg PO BID 07/30/16 12/28/17 History Albuterol Nebulized [Ventolin 2.5 mg INHALATION RT-Q4H PRN 03/27/17 12/28/17 History Nebulized] Hydrocodone/Acetaminophen [[place] 1 tab PO DAILY PRN 03/27/17 12/28/17 History 7.5-325 Tablet] Isosorbide Mononitrate ER [Imdur] 30 mg PO DAILY 03/27/17 12/28/17 History Magnesium Gluconate [Magonate] 250 mg PO DAILY 03/27/17 12/28/17 History Vitamin B Complex 1 cap PO DAILY 03/27/17 12/28/17 History metFORMIN HCL 1,000 mg PO BID #0 03/29/17 12/28/17 Rx ALPRAZolam [Xanax] 2 mg PO HS 11/26/17 12/28/17 History Aspirin [Adult Low Dose Aspirin EC] 81 mg PO DAILY 11/26/17 12/28/17 History Atorvastatin [Lipitor] 80 mg PO DAILY 11/26/17 12/28/17 History Carvedilol [Coreg] 12.5 mg PO BID 11/26/17 12/28/17 History Dapagliflozin Propanediol [Farxiga] 5 mg PO DAILY 11/26/17 12/28/17 History Enalapril [Vasotec] 10 mg PO BID 11/26/17 12/28/17 History Nitroglycerin Sl Tabs [Nitrostat] 0.4 mg SUBLINGUAL Q5M PRN 11/26/17 12/28/17 History Varenicline [Chantix Continuing 1 mg PO BID 11/26/17 12/28/17 History Pack] Insulin Aspart [NovoLOG] 5 units SQ HS 12/29/17 12/29/17 History Insulin Aspart [NovoLOG] 11 units SQ AC-BRKFST 12/29/17 12/29/17 History Insulin Aspart [NovoLOG] 22 units SQ AC-LUNCH 12/29/17 12/29/17 History Insulin Aspart [NovoLOG] 25 units SQ AC-SUPPER 12/29/17 12/29/17 History Allergies Allergy/AdvReac Type Severity Reaction Status Date / Time Fish Containing Products Allergy Unknown Verified 12/28/17 18:52 Iodinated Contrast- Oral and Allergy throat Verified 12/28/17 18:52 IV Dye swelling [Iodinated Contrast Media - IV Dye] Sulfa (Sulfonamide Allergy throat Verified 12/28/17 18:52 Antibiotics) swelling sulfamethoxazole Allergy throat Verified 12/28/17 18:52 [From ] swelling trimethoprim [From ] Allergy throat Verified 12/28/17 18:52 swelling NUTS Allergy Unknown Uncoded 12/28/17 18:52 Physical Exam Vitals: Vital Signs Temp Pulse Pulse Resp BP BP Pulse Ox 12/29/17 12:00 97.0 F L 72 16 123/75 95 12/29/17 08:00 97.0 F L 80 16 126/72 92 L 12/29/17 03:21 97.6 F 68 16 128/78 92 L 12/29/17 00:00 97.2 F L 62 16 110/58 91 L 12/28/17 19:55 97.9 F 67 18 148/83 97 03/03/18 18:22 98.3 F 71 20 147/76 99 Intake and Output 12/28/17 12/29/17 12/29/17 22:59 06:59 14:59 Intake Total 481.484 809.376 Balance 481.484 809.376 Intake: IV 360 440 Heparin Sod,Pork in 0.45% 200 40 NaCl 25,000 unit In 0.45 % NaCl 1 500ml.bag @ 10.9 UNITS/KG/HR 19.97 mls/hr IV .Q24H SARAHY Rx#: [id number] Sodium Chloride 0.9% 1, 160 400 000 ml @ 100 mls/hr IV . Q10H STA Rx#:[id number] Intake, IV Titration 121.484 169.376 Amount Heparin Sod,Pork in 0.45% 121.484 169.376 NaCl 25,000 unit In 0.45 % NaCl 1 500ml.bag @ 10.9 UNITS/KG/HR 19.97 mls/hr IV .Q24H SARAHY Rx#: [id number] Oral 200 Other: Weight 91.626 kg 100.1 kg General: The patient is awake and alert, in no distress Eye: there is normal conjunctiva bilaterally. Neck: The neck is supple, there is no JVD. Cardiovascular: Normal S1-S2, no S3-S4, no murmurs. Respiratory: Lungs clear to auscultation bilaterally Gastrointestinal: Abdomen is soft, nontender Musculoskeletal: There is no pedal edema. Neurological:. Speech is normal. Skin: Skin is warm and dry Results CBC & Chem 7: 12/29/17 07:52 12/29/17 07:52 Labs: Abnormal Lab Results - Last 24 Hours (Table) 12/28/17 12/28/17 12/28/17 Range/Units 18:53 18:53 18:53 WBC 11.1 H (3.8-10.6) k/uL APTT 31.0 H (22.0-30.0) sec BUN 19 H (7-17) mg/dL Glucose 196 H (74-99) mg/dL POC Glucose (mg/dL) (75-99) mg/dL Calcium 10.3 H (8.4-10.2) mg/dL Magnesium 1.5 L (1.6-2.3) mg/dL Triglycerides (<150) mg/dL HDL Cholesterol (40-60) mg/dL 12/28/17 12/29/17 12/29/17 Range/Units 21:06 01:13 06:00 WBC (3.8-10.6) k/uL APTT 35.0 H (22.0-30.0) sec BUN (7-17) mg/dL Glucose (74-99) mg/dL POC Glucose (mg/dL) 158 H 241 H (75-99) mg/dL Calcium (8.4-10.2) mg/dL Magnesium (1.6-2.3) mg/dL Triglycerides (<150) mg/dL HDL Cholesterol (40-60) mg/dL 12/29/17 12/29/17 12/29/17 Range/Units 07:52 07:52 11:11 WBC (3.8-10.6) k/uL APTT 41.0 H (22.0-30.0) sec BUN 18 H (7-17) mg/dL Glucose 180 H (74-99) mg/dL POC Glucose (mg/dL) 201 H (75-99) mg/dL Calcium (8.4-10.2) mg/dL Magnesium (1.6-2.3) mg/dL Triglycerides 478 H (<150) mg/dL HDL Cholesterol 28 L (40-60) mg/dL Thrombosis Risk Factor Assmnt - Choose All That Apply Any of the Below Risk Factors Present?: Yes Each Factor Represents 1 point: Age 41-60 years, Medical pt on bed rest, Obesity (BMI >25) Thrombosis Risk Factor Assessment Total Risk Factor Score: 3 Thrombosis Risk Factor Assessment Level: Moderate Risk Assessment and Plan Assessment: 1. Chest pain, with typical and atypical features. 12 leads EKG showed no acute ischemic changes. Serial troponin are negative 3 sets. Patient was seen and evaluated by cardiology. Plan for possible stress test in the morning. 2. Coronary artery disease with prior stent placement to LAD and RCA. Patient follow-up with a breastfeeding program coordinator out of town. 3. Essential hypertension, blood pressure well-controlled 4. Type 2 diabetes we will continue home insulin regimen Patient was seen and evaluated by cardiology. Awaiting further recommendations.
[2017-12-29 17:15] LABS: Glucose,Whole Blood 241 mg/dL (75-99)
[2017-12-29] MEDS: CLOPIDOGREL 75 MG TAB PO SCH (20:27)
[2017-12-29] MEDS: ALPRAZolam 1 MG TAB PO SCH (20:41)
[2017-12-29] MEDS: HYDROcodone/APAP 7.5-325MG 1 EACH TAB PO PRN (20:42)
[2017-12-29 20:47] LABS: Glucose,Whole Blood 240 mg/dL (75-99)
[2017-12-30 06:13] LABS: Glucose,Whole Blood 138 mg/dL (75-99)
[2017-12-30 06:39] LABS: Basophils % (A) 0 %; Eosinophils # (A) 0.1 k/uL (0-0.7); Eosinophils % (A) 1 %; HCT 45.9 % (34.0-46.0); Lymphocytes # (A) 2.9 k/uL (1.0-4.8); Lymphocytes % (A) 33 %; MCH 31.3 pg (25.0-35.0); MCHC 32.6 g/dL (31.0-37.0); MCV 96.2 fL (80.0-100.0); Mean Platelet Volume 7.8; Monocytes # (A) 0.3 k/uL (0-1.0); Monocytes % (A) 4 %; Neutrophils # (A) 5.4 k/uL (1.3-7.7); Neutrophils % (A) 61 %; Platelet Count 193 k/uL (150-450); RBC 4.77 m/uL (3.80-5.40); RDW 13.3 % (11.5-15.5); WBC 8.8 k/uL (3.8-10.6)
[2017-12-30] MEDS: metFORMIN 500 MG TAB PO SCH (06:48)
[2017-12-30] MEDS: CARVEDILOL 12.5 MG TAB PO SCH (06:48)
[2017-12-30] MEDS: INSULIN ASPART 100 UNIT/ML 1 ML 10 ML VIAL SQ SCH ×2 (06:48→13:23)
[2017-12-30] MEDS: ASPIRIN 325 MG TAB PO SCH (08:29)
[2017-12-30] MEDS: CITALOPRAM HYDROBROMIDE 20 MG TAB PO SCH (08:29)
[2017-12-30] MEDS: DULoxetine HCL 60 MG CAPSULE.DR PO SCH (08:30)
[2017-12-30] MEDS: LISINOPRIL 20 MG TAB PO SCH (08:31)
[2017-12-30] MEDS: MAGNESIUM OXIDE 400 MG TAB PO SCH (08:31)
[2017-12-30] MEDS: lamoTRIgine 100 MG TAB PO SCH (08:31)
[2017-12-30] MEDS: ISOSORBIDE MONONITRATE ER 30 MG TAB.ER.24H PO SCH (08:31)
[2017-12-30] MEDS: FENOFIBRATE 160 MG TAB PO SCH (08:31)
[2017-12-30] MEDS: PREGABALIN 75 MG CAP PO SCH (08:34)
[2017-12-30] MEDS: INSULIN DETEMIR 100 UNIT/ML 10 ML VIAL SQ SCH (08:34)
[2017-12-30] MEDS: NON-FORMULARY DRUG (Dapagliflozin Propanediol [Farxiga] 5 MG) PO SCH (08:38)
[2017-12-30] MEDS: VARENICLINE 1 MG TAB PO SCH (09:10)
[2017-12-30 10:02] VITALS: BP 132/84; PULSE 72; RESP 18; TEMP 97.4
[2017-12-30] MEDS: HYDROcodone/APAP 7.5-325MG 1 EACH TAB PO PRN (10:46)
--- NOTE | 2017-12-30 11:40 | P.PN ---
Subjective Progress Note Date: 12/30/17 This is a pleasant 47-year-old female with known history of coronary artery disease and prior LAD, RCA and diag stenting in 2015, she also has history of hypertension, diabetes, hyperlipidemia, she follows with Dr. Jean as her educational program assistant. Subsequent to her stent placement the patient did undergo a cardiac catheterization in February 2017 which revealed patent stents within the LAD, diagonal and right coronary artery with 30-40% stenosis involving the proximal right. Patient states they were driving home from [place] last evening when she developed a dull ache in her chest, as the drive continued the ache in the chest and tightness significantly worsened and patient became quite short of breath. She did take 2 sublingual nitroglycerin on route here. According to the patient she has been using nitroglycerin off and on at home for intermittent chest discomfort. Her EKG on arrival here showed a normal sinus rhythm with minimal ST-T wave changes in the lateral leads. Chest x-ray does not reveal any acute pulmonary process. Blood pressure 128/78, heart rate in the 60s, 92% on room air. White blood cell count on admission 11.1, hemoglobin 14.6, platelet count 183. D-dimer 0.26. Troponins have been negative 3. Magnesium level on admission 1.5. Cholesterol 124, triglycerides 478, HDL 28. Patient was initiated on IV heparin on arrival here, continues to be on IV heparin along with aspirin, Lipitor 80, Coreg, Plavix, Fenofibrate, lisinopril 20 mg twice a day Chantix. At the time of my examination this morning she is currently chest pain-free. 12/30/2017 Patient was seen and examined this morning, denies any further chest discomfort. Recent stress test done as an outpatient was reviewed and did not reveal any evidence of reversible ischemia. The pressure 132/80 with a heart rate in the 70s, pain was very pleuritic in nature overall. Troponins negative. She may be able to be discharged home today from cardiology's perspective, she can follow-up with her educational program assistant discharge. Objective - Vital Signs Vital signs: Vital Signs Temp 97.4 F L 12/30/17 10:01 Pulse 72 12/30/17 10:01 Resp 18 12/30/17 10:01 BP 132/84 12/30/17 10:01 Pulse Ox 98 12/30/17 10:01 Intake & Output 12/29/17 12/30/17 12/30/17 18:59 06:59 18:59 Intake Total 809.376 20 Balance 809.376 20 Weight 103.2 kg Intake: IV 440 20 0.9 20 Heparin Sod,Pork in 0.45% 40 NaCl 25,000 unit In 0.45 % NaCl 1 500ml.bag @ 10.9 UNITS/KG/HR 19.97 mls/hr IV .Q24H SARAHY Rx#: [id number] Sodium Chloride 0.9% 1, 400 000 ml @ 100 mls/hr IV . Q10H STA Rx#:[id number] Intake, IV Titration 169.376 Amount Heparin Sod,Pork in 0.45% 169.376 NaCl 25,000 unit In 0.45 % NaCl 1 500ml.bag @ 10.9 UNITS/KG/HR 19.97 mls/hr IV .Q24H SARAHY Rx#: [id number] Oral 200 Other: # Voids 2 - Exam PHYSICAL EXAMINATION: HEENT: Head is atraumatic, normocephalic. Pupils equal, round. Neck is supple. There is no elevated jugular venous pressure. HEART EXAMINATION: Heart S1, S2 normal. No murmur or gallop heard. CHEST EXAMINATION: Lungs are clear to auscultation and precussion. No chest wall tenderness is noted on palpation or with deep breathing. ABDOMEN: Soft, nontender. Bowel sounds are heard. No organomegaly noted. EXTREMITIES: 2+ peripheral pulses with no evidence of peripheral edema and no calf tenderness noted. NEUROLOGIC patient is awake, alert and oriented -3. - Labs CBC & Chem 7: 12/30/17 05:10 12/29/17 07:52 Labs: Abnormal Lab Results - Last 24 Hours (Table) 12/29/17 12/29/17 12/29/17 Range/Units 01:13 11:11 17:03 POC Glucose (mg/dL) 201 H 241 H (75-99) mg/dL Hemoglobin A1c 9.0 H (4.0-6.0) % 12/29/17 12/30/17 Range/Units 20:35 06:06 POC Glucose (mg/dL) 240 H 138 H (75-99) mg/dL Hemoglobin A1c (4.0-6.0) % Assessment and Plan Plan: Assessment and plan #1 Atypical chest pain. Troponins negative 3. EKG shows normal sinus rhythm with no acute changes. #2 history of coronary artery disease with prior stent placement of the LAD, RCA , and diagonal in 2015. Patient did have a heart cath performed in February 2017 which revealed patent stents within the LAD diagonal and RCA with a 30-40% stenosis in the proximal RCA #3 hypertension #4 hyperlipidemia #5 diabetes #6 nicotine dependence Plan Recent stress test performed at [facility] was negative for any reversible ischemia. From cardiology's perspective, she may be able to be discharged home today to follow-up with her educational program assistant, Dr. Jean, post discharge. DNP note has been reviewed, I agree with a documented findings and plan of care. Patient was seen and examined.
[2017-12-30 12:04] LABS: Glucose,Whole Blood 188 mg/dL (75-99)
--- NOTE | 2017-12-30 12:25 | P.DS ---
Providers Date of admission: 12/28/17 20:01 Expected date of discharge: 12/30/17 Attending physician: Melquiades Lee Consults: 12/28/17 19:56 Consult Physician Urgent Consulting Provider: Royce Becerra Consult Reason/Comments: Chest pain Do you want consulting provider notified?: Yes Primary care physician: Dagmar Hennessy Hospital Course: 1. Chest pain, with typical and atypical features. 12 leads EKG showed no acute ischemic changes. Serial troponin are negative 3 sets. Patient was seen and evaluated by cardiology. She had a recent stress test performed with coughing and hospital that was reviewed by cardiology and was negative. Patient was cleared for discharge. She is not having any chest pain anymore. 2. Coronary artery disease with prior stent placement to LAD and RCA. Patient follow-up with a armature varnisher out of town. 3. Essential hypertension, blood pressure well-controlled 4. Type 2 diabetes we will continue home insulin regimen Patient Condition at Discharge: Good Plan - Discharge Summary Discharge Rx Participant: No New Discharge Prescriptions: No Action Fenofibrate [Lofibra] 160 mg PO DAILY Citalopram Hydrobromide [CeleXA] 40 mg PO DAILY #1 tab Pregabalin [Lyrica] 150 mg PO BID Insulin Glargine [Lantus] 45 unit SQ DAILY INSULIN LISPRO (humaLOG) [humaLOG] See Protocol SQ AC-TID Cholecalciferol [Vitamin D3] 2,000 unit PO DAILY Folic Acid 1 mg PO DAILY DULoxetine HCL [Cymbalta] 60 mg PO DAILY Clopidogrel [Plavix] 75 mg PO HS lamoTRIgine 200 mg PO BID Vitamin B Complex 1 cap PO DAILY Magnesium Gluconate [Magonate] 250 mg PO DAILY Isosorbide Mononitrate ER [Imdur] 30 mg PO DAILY Hydrocodone/Acetaminophen [[place] 7.5-325 Tablet] 1 tab PO DAILY PRN PRN Reason: Pain Albuterol Nebulized [Ventolin Nebulized] 2.5 mg INHALATION RT-Q4H PRN PRN Reason: Shortness Of Breath metFORMIN HCL 1,000 mg PO BID #0 Varenicline [Chantix Continuing Pack] 1 mg PO BID Nitroglycerin Sl Tabs [Nitrostat] 0.4 mg SUBLINGUAL Q5M PRN PRN Reason: Chest Pain Enalapril [Vasotec] 10 mg PO BID ALPRAZolam [Xanax] 2 mg PO HS Atorvastatin [Lipitor] 80 mg PO DAILY Dapagliflozin Propanediol [Farxiga] 5 mg PO DAILY Carvedilol [Coreg] 12.5 mg PO BID Aspirin [Adult Low Dose Aspirin EC] 81 mg PO DAILY Insulin Aspart [NovoLOG] 5 units SQ HS Insulin Aspart [NovoLOG] 25 units SQ AC-SUPPER Insulin Aspart [NovoLOG] 22 units SQ AC-LUNCH Insulin Aspart [NovoLOG] 11 units SQ AC-BRKFST Discharge Medication List Fenofibrate [Lofibra] 160 mg PO DAILY 03/02/15 [History] Citalopram Hydrobromide [CeleXA] 40 mg PO DAILY #1 tab 03/10/15 [Rx] Pregabalin [Lyrica] 150 mg PO BID 06/25/15 [History] Cholecalciferol [Vitamin D3] 2,000 unit PO DAILY 01/15/16 [History] INSULIN LISPRO (humaLOG) [humaLOG] See Protocol SQ AC-TID 01/15/16 [History] Insulin Glargine [Lantus] 45 unit SQ DAILY 01/15/16 [History] Folic Acid 1 mg PO DAILY 03/24/16 [History] DULoxetine HCL [Cymbalta] 60 mg PO DAILY 04/13/16 [History] Clopidogrel [Plavix] 75 mg PO HS 07/30/16 [History] lamoTRIgine 200 mg PO BID 07/30/16 [History] Albuterol Nebulized [Ventolin Nebulized] 2.5 mg INHALATION RT-Q4H PRN 03/27/17 [ History] Hydrocodone/Acetaminophen [[place] 7.5-325 Tablet] 1 tab PO DAILY PRN 03/27/17 [ History] Isosorbide Mononitrate ER [Imdur] 30 mg PO DAILY 03/27/17 [History] Magnesium Gluconate [Magonate] 250 mg PO DAILY 03/27/17 [History] Vitamin B Complex 1 cap PO DAILY 03/27/17 [History] metFORMIN HCL 1,000 mg PO BID #0 03/29/17 [Rx] ALPRAZolam [Xanax] 2 mg PO HS 11/26/17 [History] Aspirin [Adult Low Dose Aspirin EC] 81 mg PO DAILY 11/26/17 [History] Atorvastatin [Lipitor] 80 mg PO DAILY 11/26/17 [History] Carvedilol [Coreg] 12.5 mg PO BID 11/26/17 [History] Dapagliflozin Propanediol [Farxiga] 5 mg PO DAILY 11/26/17 [History] Enalapril [Vasotec] 10 mg PO BID 11/26/17 [History] Nitroglycerin Sl Tabs [Nitrostat] 0.4 mg SUBLINGUAL Q5M PRN 11/26/17 [History] Varenicline [Chantix Continuing Pack] 1 mg PO BID 11/26/17 [History] Insulin Aspart [NovoLOG] 5 units SQ HS 12/29/17 [History] Insulin Aspart [NovoLOG] 11 units SQ AC-BRKFST 12/29/17 [History] Insulin Aspart [NovoLOG] 22 units SQ AC-LUNCH 12/29/17 [History] Insulin Aspart [NovoLOG] 25 units SQ AC-SUPPER 12/29/17 [History] Follow up Appointment(s)/Referral(s): Dagmar Hennessy MD [Primary Care Provider] - 1-2 days Discharge Disposition: HOME SELF-CARE
--- NOTE | 2017-12-30 19:06 | ECHOF ---
Referral Reason:chest pain MEASUREMENTS -------- HEIGHT: 167.6 cm WEIGHT: 99.8 kg BP: 162/81 RVIDd: 3.3 cm (< 3.3) IVSd: 1.4 cm (0.6 - 1.1) LVIDd: 4.7 cm (3.9 - 5.3) LVPWd: 1.4 cm (0.6 - 1.1) IVSs: 1.9 cm LVIDs: 3.3 cm LVPWs: 1.8 cm LA Diam: 3.6 cm (2.7 - 3.8) LAESV Index (A-L): 20.38 ml/m Ao Diam: 3.5 cm (2.0 - 3.7) AV Cusp: 2.2 cm (1.5 - 2.6) MV EXCURSION: 17.245 mm (> 18.000) MV EF SLOPE: 68 mm/s (70 - 150) EPSS: 0.6 cm MV E [place]: 0.67 m/s MV DecT: 309 ms MV A [place]: 0.70 m/s MV E/A Ratio: 0.97 FINDINGS -------- Sinus rhythm. This was a technically adequate study. The left ventricular size is normal. There is moderate concentric left ventricular hypertrophy. O verall left ventricular systolic function is normal with, an EF between 60 - 65 %. The right ventricle is mildly enlarged. Normal LA size by volume 22+/-6 ml/m2. The right atrium is normal in size. There is mild aortic valve sclerosis. The mitral valve leaflets are mildly thickened. Mild mitral annular calcification present. The tricuspid valve appears structurally normal. There is no pulmonic regurgitation present. The aortic root size is normal. Normal inferior vena cava with normal inspiratory collapse consistent with estimated right atrial pre ssure of 5 mmHg. There is no pericardial effusion. CONCLUSIONS -------- 1. Sinus rhythm. 2. This was a technically adequate study. 3. The left ventricular size is normal. 4. There is moderate concentric left ventricular hypertrophy. 5. Overall left ventricular systolic function is normal with, an EF between 60 - 65 %. 6. The right ventricle is mildly enlarged. 7. Normal LA size by volume 22+/-6 ml/m2. 8. The right atrium is normal in size. 9. There is mild aortic valve sclerosis. 10. The mitral valve leaflets are mildly thickened. 11. Mild mitral annular calcification present. 12. The tricuspid valve appears structurally normal. 13. There is no pulmonic regurgitation present. 14. The aortic root size is normal. 15. Normal inferior vena cava with normal inspiratory collapse consistent with estimated right atrial pressure of 5 mmHg. 16. There is no pericardial effusion. HAND STRIPER: Reema Crow RDCS
== END 2017-12-30 13:50 | disposition home or self-care (01) ==
LOC: EC 18:20 → 6SEL 20:01 → 3OBS 12-30 09:44
PROVIDERS: ADMIT Internal Medicine; ATTEND Internal Medicine
DX: R07.89 Other chest pain (principal); I25.10 Atherosclerotic heart disease of native coronary artery without angina pectoris; Z95.5 Presence of coronary angioplasty implant and graft; I10 Essential (primary) hypertension; E11.9 Type 2 diabetes mellitus without complications; E78.5 Hyperlipidemia, unspecified; R06.02 Shortness of breath; E66.9 Obesity, unspecified; Z68.36 Body mass index [BMI] 36.0-36.9, adult; F17.210 Nicotine dependence, cigarettes, uncomplicated; F41.9 Anxiety disorder, unspecified; F32.9 Major depressive disorder, single episode, unspecified; I69.351 Hemiplegia and hemiparesis following cerebral infarction affecting right dominant side; M79.7 Fibromyalgia; I25.2 Old myocardial infarction; Z88.1 Allergy status to other antibiotic agents; Z88.2 Allergy status to sulfonamides; Z91.013 Allergy to seafood; Z91.041 Radiographic dye allergy status; Z91.018 Allergy to other foods; Z82.5 Family history of asthma and other chronic lower respiratory diseases; Z80.0 Family history of malignant neoplasm of digestive organs; Z79.899 Other long term (current) drug therapy; Z79.4 Long term (current) use of insulin; Z79.84 Long term (current) use of oral hypoglycemic drugs; Z79.82 Long term (current) use of aspirin; Z79.02 Long term (current) use of antithrombotics/antiplatelets; Z99.89 Dependence on other enabling machines and devices; Z85.41 Personal history of malignant neoplasm of cervix uteri; G25.81 Restless legs syndrome; G47.33 Obstructive sleep apnea (adult) (pediatric); G35 Multiple sclerosis
CPT/HCPCS: 99291; 96375 ×3; 96361 ×2; 96376 ×3; 96365 ×2; 96366 ×2; 36415; 93005; 93306; 85379; 83880; 80061; 80053; 80048; 82150; 82550 ×2; 82553 ×2; 83690; 83735; 84484 ×2; 85025 ×3; 85610; 85730 ×2; 83036; 71046; G0378 ×3; J2270; J1644 ×3; J2405

== ENCOUNTER 2018-03-25 01:29 | Observation (INO) | payer OTHER ==
--- NOTE | 2018-03-25 02:14 | ED ---
Chest Pain HPI - General Chief Complaint: Chest Pain Stated Complaint: Chest Pain Time Seen by Provider: 03/25/18 01:41 Source: patient Mode of arrival: EMS Limitations: no limitations - History of Present Illness Initial Comments: This patient is a 47-year-old woman who presents to be evaluated for chest pain and a feeling that her right side is heavy. She states that the symptoms came on at 3 PM. After few minutes she took a nitroglycerin, followed by another which did relieve the symptoms and she remained at home area after she had eaten her dinner the symptoms came back tonight, and as they were not fully resolving she decided to be seen here. MD Complaint: chest pain Onset/Timin -: hour(s) Onset: during rest Pain Location: right chest Pain Radiation: RUE Severity: moderate Quality: heaviness Consistency: intermittent Improves With: nitroglycerin Worsens With: nothing Anginal Symptoms: nausea Treatments Prior to Arrival: nitroglycerin - Related Data Home Medications Medication Instructions Recorded Confirmed Fenofibrate [Lofibra] 160 mg PO DAILY 03/02/15 03/25/18 Pregabalin [Lyrica] 150 mg PO BID 06/25/15 03/25/18 Cholecalciferol [Vitamin D3] 2,000 unit PO DAILY 01/15/16 03/25/18 INSULIN LISPRO (humaLOG) [humaLOG] See Protocol SQ AC-TID 01/15/16 03/25/18 Insulin Glargine [Lantus] 45 unit SQ DAILY 01/15/16 03/25/18 Folic Acid 1 mg PO DAILY 03/24/16 03/25/18 DULoxetine HCL [Cymbalta] 60 mg PO DAILY 04/13/16 03/25/18 Clopidogrel [Plavix] 75 mg PO HS 07/30/16 03/25/18 lamoTRIgine 200 mg PO BID 07/30/16 03/25/18 Albuterol Nebulized [Ventolin 2.5 mg INHALATION RT-Q4H PRN 03/27/17 03/25/18 Nebulized] Hydrocodone/Acetaminophen [[place] 1 tab PO DAILY PRN 03/27/17 03/25/18 7.5-325 Tablet] Magnesium Gluconate [Magonate] 250 mg PO DAILY 03/27/17 03/25/18 Vitamin B Complex 1 cap PO DAILY 03/27/17 03/25/18 ALPRAZolam [Xanax] 2 mg PO HS 11/26/17 03/25/18 Aspirin [Adult Low Dose Aspirin EC] 81 mg PO DAILY 11/26/17 03/25/18 Atorvastatin [Lipitor] 80 mg PO DAILY 11/26/17 03/25/18 Carvedilol [Coreg*] 12.5 mg PO BID 11/26/17 03/25/18 Dapagliflozin Propanediol [Farxiga] 5 mg PO DAILY 11/26/17 03/25/18 Enalapril [Vasotec] 10 mg PO BID 11/26/17 03/25/18 Nitroglycerin Sl Tabs [Nitrostat] 0.4 mg SUBLINGUAL Q5M PRN 11/26/17 03/25/18 Varenicline [Chantix Continuing 1 mg PO BID 11/26/17 03/25/18 Pack] Previous Rx's Medication Instructions Recorded Citalopram Hydrobromide [CeleXA] 40 mg PO DAILY #1 tab 03/10/15 metFORMIN HCL 1,000 mg PO BID #0 03/29/17 Isosorbide Mononitrate ER [Imdur] 60 mg PO DAILY #30 tab.er.24h 03/25/18 Allergies Allergy/AdvReac Type Severity Reaction Status Date / Time Fish Containing Products Allergy Unknown Verified 03/25/18 09:18 Iodinated Contrast- Oral and Allergy throat Verified 03/25/18 09:18 IV Dye swelling [Iodinated Contrast Media - IV Dye] Sulfa (Sulfonamide Allergy throat Verified 03/25/18 09:18 Antibiotics) swelling sulfamethoxazole Allergy throat Verified 03/25/18 09:18 [From ] swelling trimethoprim [From Junra] Allergy throat Verified 03/25/18 09:18 swelling NUTS Allergy Unknown Uncoded 03/25/18 06:59 Review of Systems ROS Statement: Those systems with pertinent positive or pertinent negative responses have been documented in the HPI. ROS Other: All systems not noted in ROS Statement are negative. Constitutional: Denies: fever, chills, weakness Respiratory: Denies: cough, dyspnea, wheezes Cardiovascular: Reports: chest pain Gastrointestinal: Reports: nausea. Denies: abdominal pain, vomiting Genitourinary: Denies: dysuria, hematuria Musculoskeletal: Denies: back pain Skin: Denies: rash Neurological: Reports: weakness (Right arm). Denies: headache, numbness EKG Findings - EKG Results: EKG: interpreted by ERMD, sinus rhythm (Rate proximal to 72 bpm), normal ST/T - Blocks, [place], Hypertrophy, ST Abn: AV and intraventricular conduction: left bundle branch block (fixed/intermittent , complete/incomplete) QRS axis and voltage: left axis deviation (-30 to -90) Past Medical History Past Medical History: Cancer, Chest Pain / Angina, CVA/TIA, Diabetes Mellitus, Fibromyalgia, Hyperlipidemia, Hypertension, Myocardial Infarction ([place]), Musculoskeletal Disorder, Sleep Apnea/CPAP/BIPAP Additional Past Medical History / Comment(s): 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, 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 andper pt' s spouse- slight foot drag when tired.diabetes mellitus insulin-dependent, hypertension, hyperlipidemia, fibromyalgia, obstructive sleep apnea, MS, questionable hypercoagulable disease, anxiety, depression, obesity, ovarian cyst Last Myocardial Infarction Date:: unk History of Any Multi-Drug Resistant Organisms: None Reported Past Surgical History: Section, Cholecystectomy, Heart Catheterization With Stent, Hysterectomy, Tubal Ligation, Uterine Ablation Additional Past Surgical History / Comment(s): vein stripping right leg, radio frequency ablation of right back-02/22/2015, four stents on 04/03/16 and one on march 05 Past Anesthesia/Blood Transfusion Reactions: Motion Sickness Additional Past Anesthesia/Blood Transfusion Reaction / Comment(s): mild clausterphobia Date of Last Stent Placement:: 2003 Past Psychological History: Anxiety, Depression Smoking Status: Current every day smoker Past Alcohol Use History: None Reported Past Drug Use History: None Reported - Past Family History Father Family Medical History: Congestive Heart Failure (CHF), Coronary Artery Disease (CAD), Diabetes Mellitus Mother Family Medical History: Cancer, Hypertension, Respiratory Disorder Additional Family Medical History / Comment(s): emphysema, colon CA General Exam Limitations: no limitations General appearance: alert, in no apparent distress Head exam: Present: atraumatic, normocephalic Eye exam: Present: normal appearance. Absent: scleral icterus, conjunctival injection ENT exam: Present: normal oropharynx Neck exam: Present: normal inspection Respiratory exam: Present: normal lung sounds bilaterally. Absent: respiratory distress, wheezes, rales, rhonchi, stridor, chest wall tenderness Cardiovascular Exam: Present: regular rate, normal rhythm, systolic murmur. Absent: diastolic murmur, rubs, gallop GI/Abdominal exam: Present: soft. Absent: distended, tenderness, guarding, rebound, mass Extremities exam: Present: normal inspection, normal capillary refill. Absent: pedal edema, calf tenderness Neurological exam: Present: alert, oriented X3, motor sensory deficit (Patient does have some right sided weakness versus a contralateral side, but states that some of this is a residual of previous stroke) Skin exam: Present: warm, dry, intact, normal color. Absent: rash Course Vital Signs 03/25/18 03/25/18 03/25/18 01:38 02:05 03:33 Temperature 98.0 F Pulse Rate 72 75 Respiratory 18 20 17 Rate Blood Pressure 181/86 160/82 O2 Sat by Pulse 92 L 96 Oximetry 03/25/18 03/25/18 04:00 05:36 Temperature 98.5 F Pulse Rate 69 88 Respiratory 20 18 Rate Blood Pressure 158/75 154/79 O2 Sat by Pulse 97 97 Oximetry Disposition Clinical Impression: Chest pain Disposition: ADMITTED IP TO THIS HOSP Condition: Fair
[2018-03-25 02:57] LABS: Basophils # (A) 0.1 k/uL (0-0.2); Basophils % (A) 1 %; Eosinophils # (A) 0.1 k/uL (0-0.7); Eosinophils % (A) 1 %; HCT 45.7 % (34.0-46.0); HGB 15.5 gm/dL (11.4-16.0); Lymphocytes % (A) 29 %; MCH 31.7 pg (25.0-35.0); MCV 93.2 fL (80.0-100.0); Mean Platelet Volume 7.5; Monocytes # (A) 0.4 k/uL (0-1.0); Monocytes % (A) 4 %; Neutrophils # (A) 6.6 k/uL (1.3-7.7); Neutrophils % (A) 64 %; Platelet Count 217 k/uL (150-450); RDW 13.2 % (11.5-15.5); WBC 10.3 k/uL (3.8-10.6)
[2018-03-25 03:06] LABS: ALT 29 U/L (9-52); AST 22 U/L (14-36); Albumin 4.3 g/dL (3.5-5.0); Alkaline Phosphatase 141 U/L (38-126); Anion Gap 17 mmol/L; Blood Urea Nitrogen 18 mg/dL (7-17); Calcium 10.1 mg/dL (8.4-10.2); Carbon Dioxide 21 mmol/L (22-30); Chloride 98 mmol/L (98-107); Glucose 343 mg/dL (74-99); Magnesium 1.5 mg/dL (1.6-2.3); Potassium 4.2 mmol/L (3.5-5.1); Sodium 136 mmol/L (137-145); Total Bilirubin 0.4 mg/dL (0.2-1.3); Total Protein 6.6 g/dL (6.3-8.2)
[2018-03-25 03:09] LABS: D-Dimer 0.3 mg/L FEU (<0.60); INR 1.1 (<1.2); Partial Thromboplastin Time 30.6 sec (22.0-30.0); Prothrombin Time 10.5 sec (9.0-12.0)
[2018-03-25 03:16] LABS: Creatine Kinase 48 U/L (30-135)
--- NOTE | 2018-03-25 03:21 | XR ---
EXAMINATION TYPE: XR chest 1V portable DATE OF EXAM: 03/25/2018 COMPARISON: 12/28/2017 HISTORY: Chest pain TECHNIQUE: Single frontal view of the chest is obtained. FINDINGS: Heart and mediastinum are normal. Lungs are clear. Diaphragm is normal. There are chest le ads. Bony thorax is intact. IMPRESSION: Normal chest. No change.
[2018-03-25] MEDS ORDERED: ONDANSETRON 4 MG/2 ML VIAL IVP STA (03:28)
[2018-03-25 03:29] LABS: Troponin I <0.012 ng/mL (0.000-0.034)
[2018-03-25] MEDS ORDERED: NITROGLYCERIN SL TABS 0.4 MG TAB SUBLINGUAL PRN (04:20)
[2018-03-25] MEDS ORDERED: ALBUTEROL NEBULIZED 2.5 MG/3 ML INHALATION PRN (04:22)
[2018-03-25] MEDS ORDERED: HYDROcodone/APAP 7.5-325MG 1 EACH TAB PO PRN (04:22)
[2018-03-25] MEDS ORDERED: INSULIN REGULAR 100 UNIT/ML VIAL SQ STA (04:24)
[2018-03-25 07:14] LABS: Glucose,Whole Blood 277 mg/dL (75-99)
[2018-03-25] MEDS ORDERED: metFORMIN 500 MG TAB PO SCH (07:30)
[2018-03-25] MEDS ORDERED: CARVEDILOL 12.5 MG TAB PO SCH (07:30)
[2018-03-25 07:58] LABS: Creatine Kinase 49 U/L (30-135)
--- NOTE | 2018-03-25 08:04 | CONS ---
CONSULTATION CHIEF COMPLAINT: Chest pain. Leticia is a 47-year-old lady with history of known coronary artery disease, status post multivessel angioplasty, who presented to hospital complaining of chest pain. She describes it as precordial chest pain that she has had 2 of these episodes yesterday. Took nitroglycerin following which became pain-free. She was here with similar symptoms back in December and was discharged home. Just prior to December, she was at [facility] and had a negative stress test. The patient came in with symptoms of unstable angina in March of last year and underwent cardiac catheterization by me and I reviewed the records. She had patent stent within the LAD and mild disease involving right coronary artery. EKG on this admission does not reveal acute ischemic changes. One set of troponin is negative. Patient's symptoms are somewhat atypical. PAST MEDICAL HISTORY: Past medical history is significant for coronary artery disease, status post multivessel angioplasty, hypertension, diabetes, dyslipidemia, and COPD. MEDICATIONS: Medications at home include aspirin, albuterol, Xanax, Cymbalta, Plavix, Celexa, Coreg, Lipitor, insulin, [place], Lofibra, Vasotec, insulin, Imdur, and metformin. ALLERGIES: She has multiple drug allergies including BACTRIM, IV DYE and FISH. FAMILY HISTORY: Negative for premature coronary artery disease. SOCIAL HISTORY: Negative for smoking, EtOH abuse, or drug abuse. REVIEW OF SYSTEMS: HEENT is unremarkable. CARDIAC: As described above. RESPIRATORY: Negative. GI: Negative. GENITOURINARY: Negative. ALLERGY/IMMUNOLOGY: Negative. SKIN: Negative. MUSCULOSKELETAL: Significant for arthritis. PSYCHOSOCIAL: Negative. ENDOCRINE: Negative. HEMATOLOGICAL: Negative. DERM: Negative. CONSTITUTIONAL: Negative. ONCOLOGICAL: Negative. CUT AND PRINT MACHINE OPERATOR: Negative. The rest of the system review is not relevant. PHYSICAL EXAMINATION: ENDOCRINE: Negative. Allergy none skin negative. Musculoskeletal significant for arthritis psychosocial negative. ONCOLOGICAL: Negative. CONSTITUTIONAL: Negative. ONCOLOGICAL: Negative. CUT AND PRINT MACHINE OPERATOR negative rest of the system review is not relevant. PHYSICAL EXAMINATION: On exam, comfortable at rest. Vital signs are stable. There is no jugular venous distention. Carotid upstroke is normal. There is no bruit. Chest exam reveals good air entry bilaterally. Heart exam reveals first and second heart sounds. No gallop. No murmur. No rub. Abdomen is soft, nontender. Exam of extremities did not reveal any edema. Peripheral pulses are palpable. Onset of troponin is negative. D-dimer is normal at 0.3. EKG shows sinus rhythm with left bundle branch block. Prior cardiac catheterization data had been reviewed. ASSESSMENT: 1. Precordial chest pain. 2. Coronary artery disease, status post prior angioplasty. 3. Hypertension. 4. Dyslipidemia. PLAN: The patient's chest discomfort is atypical. She is pain-free now. We will obtain further troponins. If they are negative given the negative stress test within the last 6 months and within the negative cardiac cath within the last 1 year, we can continue to treat her with medical therapy. Blood pressure is somewhat elevated. Will keep an eye on her. If necessary, we will adjust the antihypertensive she is on. The patient is currently on Imdur 30 mg daily. I will increase it to 60 mg to deal with possible vasospasm. MMODL / IJN: [id number] /
[2018-03-25 08:10] LABS: Creatine Kinase MB 0.9 ng/mL (0.0-2.4); Troponin I <0.012 ng/mL (0.000-0.034)
[2018-03-25] MEDS ORDERED: DULoxetine HCL 60 MG CAPSULE.DR PO SCH (09:00)
[2018-03-25] MEDS ORDERED: ATORVASTATIN 80 MG TAB PO SCH (09:00)
[2018-03-25] MEDS ORDERED: lamoTRIgine 100 MG TAB PO SCH (09:00)
[2018-03-25] MEDS ORDERED: ISOSORBIDE MONONITRATE ER 30 MG TAB.ER.24H PO SCH ×2 (09:00)
[2018-03-25] MEDS ORDERED: LISINOPRIL 20 MG TAB PO SCH (09:00)
[2018-03-25] MEDS ORDERED: NON-FORMULARY DRUG (Dapagliflozin Propanediol [Farxiga] 5 MG) PO SCH (09:00)
[2018-03-25] MEDS ORDERED: MAGNESIUM OXIDE 400 MG TAB PO SCH (09:00)
[2018-03-25] MEDS ORDERED: FOLIC ACID 1 MG TAB PO SCH (09:00)
[2018-03-25] MEDS ORDERED: PREGABALIN 75 MG CAP PO SCH (09:00)
[2018-03-25] MEDS ORDERED: CHOLECALCIFEROL 1,000 UNIT TAB PO SCH (09:00)
[2018-03-25] MEDS ORDERED: ASPIRIN 325 MG TAB PO SCH (09:00)
[2018-03-25] MEDS ORDERED: FENOFIBRATE 160 MG TAB PO SCH (09:00)
[2018-03-25] MEDS ORDERED: CITALOPRAM HYDROBROMIDE 20 MG TAB PO SCH (09:00)
[2018-03-25] MEDS ORDERED: VARENICLINE 1 MG TAB PO SCH (09:00)
[2018-03-25] MEDS ORDERED: INSULIN DETEMIR 100 UNIT/ML 10 ML VIAL SQ SCH (09:00)
[2018-03-25] MEDS: INSULIN ASPART 100 UNIT/ML 1 ML 10 ML VIAL SQ SCH ×2 (09:18→13:42)
[2018-03-25 09:23] VITALS: RESP 16; TEMP 97.6
[2018-03-25 11:18] VITALS: BP 95/48; PULSE 61
[2018-03-25 12:12] LABS: Glucose,Whole Blood 257 mg/dL (75-99)
[2018-03-25] MEDS ORDERED: MAGNESIUM OXIDE 400 MG TAB PO STA (12:15)
--- NOTE | 2018-03-25 12:18 | P.HPIM ---
History of Present Illness H&P Date: 03/25/18 Chief Complaint: Chest pain This is a 47-year-old female with past medical history significant for coronary artery disease, essential hypertension, hyperlipidemia, and type 2 diabetes who presented to the emergency room with chest pain. Patient said that she had 2 episodes of chest pain last night for which she took nitroglycerin. She said that her pain is mostly in the middle of her chest. No radiation. No nausea or shortness of breath associated with her pain. Since he presented to the emergency room she has been chest pain-free. Repeat EKG showed no acute ischemic changes. Troponins negative 2 sets. Patient usually follow-up in [place] and she had the stress test in December of this year that was reported negative. Last March, patient had a left heart catheterization showing evidence of patent LAD stent. Patient was placed on observation and was seen and evaluated by cardiology. Her chest pain with thought to be atypical in nature. She was cleared for discharge home. Continue medical management. Follow-up with her fly worker in the office as directed. Review of Systems Review of system: 14 points review of systems were obtained and were negative except to what were mentioned in the HPI. 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 and paralysis in right arm per pt's spouse- slight foot drag when tired.diabetes mellitus insulin -dependent, hypertension, hyperlipidemia, fibromyalgia, obstructive sleep apnea , MS, questionable hypercoagulable disease, anxiety, depression, obesity, ovarian cyst Last Myocardial Infarction Date:: unk History of Any Multi-Drug Resistant Organisms: None Reported Past Surgical History: Section, Cholecystectomy, Heart Catheterization With Stent, Hysterectomy, Tubal Ligation, Uterine Ablation Additional Past Surgical History / Comment(s): vein stripping right leg, radio frequency ablation of right back-02/22/2015, four stents on 04/03/16 and one on mar 05 2016 Past Anesthesia/Blood Transfusion Reactions: Motion Sickness Additional Past Anesthesia/Blood Transfusion Reaction / Comment(s): mild clausterphobia Date of Last Stent Placement:: 6/7/16 Past Psychological History: Anxiety, Depression Smoking Status: Current every day smoker Past Alcohol Use History: None Reported Past Drug Use History: None Reported - Past Family History Father Family Medical History: Congestive Heart Failure (CHF), Coronary Artery Disease (CAD), Diabetes Mellitus Mother Family Medical History: Cancer, Hypertension, Respiratory Disorder Additional Family Medical History / Comment(s): emphysema, colon CA Medications and Allergies Home Medications Medication Instructions Recorded Confirmed Type Fenofibrate [Lofibra] 160 mg PO DAILY 03/02/15 03/25/18 History Citalopram Hydrobromide [CeleXA] 40 mg PO DAILY #1 tab 03/10/15 03/25/18 Rx Pregabalin [Lyrica] 150 mg PO BID 06/25/15 03/25/18 History Cholecalciferol [Vitamin D3] 2,000 unit PO DAILY 01/15/16 03/25/18 History INSULIN LISPRO (humaLOG) [humaLOG] See Protocol SQ AC-TID 01/15/16 03/25/18 History Insulin Glargine [Lantus] 45 unit SQ DAILY 01/15/16 03/25/18 History Folic Acid 1 mg PO DAILY 03/24/16 03/25/18 History DULoxetine HCL [Cymbalta] 60 mg PO DAILY 04/13/16 03/25/18 History Clopidogrel [Plavix] 75 mg PO HS 07/30/16 03/25/18 History lamoTRIgine 200 mg PO BID 07/30/16 03/25/18 History Albuterol Nebulized [Ventolin 2.5 mg INHALATION RT-Q4H PRN 03/27/17 03/25/18 History Nebulized] Hydrocodone/Acetaminophen [[place] 1 tab PO DAILY PRN 03/27/17 03/25/18 History 7.5-325 Tablet] Magnesium Gluconate [Magonate] 250 mg PO DAILY 03/27/17 03/25/18 History Vitamin B Complex 1 cap PO DAILY 03/27/17 03/25/18 History metFORMIN HCL 1,000 mg PO BID #0 03/29/17 03/25/18 Rx ALPRAZolam [Xanax] 2 mg PO HS 11/26/17 03/25/18 History Aspirin [Adult Low Dose Aspirin EC] 81 mg PO DAILY 11/26/17 03/25/18 History Atorvastatin [Lipitor] 80 mg PO DAILY 11/26/17 03/25/18 History Carvedilol [Coreg] 12.5 mg PO BID 11/26/17 03/25/18 History Dapagliflozin Propanediol [Farxiga] 5 mg PO DAILY 11/26/17 03/25/18 History Enalapril [Vasotec] 10 mg PO BID 11/26/17 03/25/18 History Nitroglycerin Sl Tabs [Nitrostat] 0.4 mg SUBLINGUAL Q5M PRN 11/26/17 03/25/18 History Varenicline [Chantix Continuing 1 mg PO BID 11/26/17 03/25/18 History Pack] Isosorbide Mononitrate ER [Imdur] 60 mg PO DAILY #30 tab.er.24h 03/25/18 Rx Allergies Allergy/AdvReac Type Severity Reaction Status Date / Time Fish Containing Products Allergy Unknown Verified 03/25/18 09:18 Iodinated Contrast- Oral and Allergy throat Verified 03/25/18 09:18 IV Dye swelling [Iodinated Contrast Media - IV Dye] Sulfa (Sulfonamide Allergy throat Verified 03/25/18 09:18 Antibiotics) swelling sulfamethoxazole Allergy throat Verified 03/25/18 09:18 [From ] swelling trimethoprim [From ] Allergy throat Verified 03/25/18 09:18 swelling NUTS Allergy Unknown Uncoded 03/25/18 06:59 Physical Exam Vitals: Vital Signs Temp Pulse Pulse Resp BP BP Pulse Ox 03/25/18 11:17 61 16 95/48 90 L 03/25/18 08:00 97.6 F 74 16 154/80 97 03/25/18 05:36 98.5 F 88 18 154/79 97 03/25/18 04:00 69 20 158/75 97 03/25/18 03:33 75 17 160/82 96 03/25/18 02:05 20 03/25/18 01:38 98.0 F 72 18 181/86 92 L Intake and Output 03/24/18 03/25/18 03/25/18 22:59 06:59 14:59 Intake Total 236 Balance 236 Intake: Oral 236 Other: Voiding Method Toilet Weight 89.811 kg General: The patient is awake and alert, in no distress Eye: there is normal conjunctiva bilaterally. Neck: The neck is supple, there is no JVD. Cardiovascular: Normal S1-S2, no S3-S4, no murmurs. Respiratory: Lungs clear to auscultation bilaterally Gastrointestinal: Abdomen is soft, nontender Musculoskeletal: There is no pedal edema. Neurological:. Speech is normal. Skin: Skin is warm and dry Results CBC & Chem 7: 03/25/18 01:45 03/25/18 01:45 Labs: Abnormal Lab Results - Last 24 Hours (Table) 03/25/18 03/25/18 03/25/18 Range/Units 01:45 01:45 07:12 APTT 30.6 H (22.0-30.0) sec Sodium 136 L (137-145) mmol/L Carbon Dioxide 21 L (22-30) mmol/L BUN 18 H (7-17) mg/dL Glucose 343 H (74-99) mg/dL POC Glucose (mg/dL) 277 H (75-99) mg/dL Magnesium 1.5 L (1.6-2.3) mg/dL Alkaline Phosphatase 141 H (38-126) U/L 03/25/18 Range/Units 11:59 APTT (22.0-30.0) sec Sodium (137-145) mmol/L Carbon Dioxide (22-30) mmol/L BUN (7-17) mg/dL Glucose (74-99) mg/dL POC Glucose (mg/dL) 257 H (75-99) mg/dL Magnesium (1.6-2.3) mg/dL Alkaline Phosphatase (38-126) U/L Thrombosis Risk Factor Assmnt - Choose All That Apply Any of the Below Risk Factors Present?: Yes Each Factor Represents 1 point: Age 41-60 years, Obesity (BMI >25), Swollen legs (current), Varicose veins Other Risk Factors: Yes (unknown clotting disorder) Other congenital or acquired thrombophilia - If yes, enter type in comment: No Thrombosis Risk Factor Assessment Total Risk Factor Score: 4 Thrombosis Risk Factor Assessment Level: Moderate Risk Assessment and Plan Assessment: This is a 47-year-old female with past medical history significant for coronary artery disease, essential hypertension, hyperlipidemia, and type 2 diabetes who presented to the emergency room with chest pain. Patient said that she had 2 episodes of chest pain last night for which she took nitroglycerin. She said that her pain is mostly in the middle of her chest. No radiation. No nausea or shortness of breath associated with her pain. Since he presented to the emergency room she has been chest pain-free. Repeat EKG showed no acute ischemic changes. Troponins negative 2 sets. Patient usually follow-up in [place] and she had the stress test in December of this year that was reported negative. Last March, patient had a left heart catheterization showing evidence of patent LAD stent. Patient was placed on observation and was seen and evaluated by cardiology. Her chest pain with thought to be atypical in nature. She was cleared for discharge home. Continue medical management. Follow-up with her fly worker in the office as directed.
--- NOTE | 2018-03-25 12:21 | P.DS ---
Providers Date of admission: 03/25/18 04:20 Expected date of discharge: 03/25/18 Attending physician: Melquiades Lee Consults: 03/25/18 04:20 Consult Physician Routine Consulting Provider: Curt Jasso Consult Reason/Comments: chest pain Do you want consulting provider notified?: Yes Primary care physician: [facility] Course: This is a 47-year-old female with past medical history significant for coronary artery disease, essential hypertension, hyperlipidemia, and type 2 diabetes who presented to the emergency room with chest pain. Patient said that she had 2 episodes of chest pain last night for which she took nitroglycerin. She said that her pain is mostly in the middle of her chest. No radiation. No nausea or shortness of breath associated with her pain. Since he presented to the emergency room she has been chest pain-free. Repeat EKG showed no acute ischemic changes. Troponins negative 2 sets. Patient usually follow-up in [place] and she had the stress test in December of this year that was reported negative. Last March, patient had a left heart catheterization showing evidence of patent LAD stent. Patient was placed on observation and was seen and evaluated by cardiology. Her chest pain with thought to be atypical in nature. She was cleared for discharge home. Continue medical management. Imdur dose was increased to 60 mg daily. Follow-up with her stockroom supervisor in the office as directed. Patient Condition at Discharge: Fair Plan - Discharge Summary New Discharge Prescriptions: New Isosorbide Mononitrate ER [Imdur] 60 mg PO DAILY #30 tab.er.24h Continue Fenofibrate [Lofibra] 160 mg PO DAILY Citalopram Hydrobromide [CeleXA] 40 mg PO DAILY #1 tab Pregabalin [Lyrica] 150 mg PO BID Insulin Glargine [Lantus] 45 unit SQ DAILY INSULIN LISPRO (humaLOG) [humaLOG] See Protocol SQ AC-TID Cholecalciferol [Vitamin D3] 2,000 unit PO DAILY Folic Acid 1 mg PO DAILY DULoxetine HCL [Cymbalta] 60 mg PO DAILY Clopidogrel [Plavix] 75 mg PO HS lamoTRIgine 200 mg PO BID Vitamin B Complex 1 cap PO DAILY Magnesium Gluconate [Magonate] 250 mg PO DAILY Hydrocodone/Acetaminophen [[place] 7.5-325 Tablet] 1 tab PO DAILY PRN PRN Reason: Pain Albuterol Nebulized [Ventolin Nebulized] 2.5 mg INHALATION RT-Q4H PRN PRN Reason: Shortness Of Breath metFORMIN HCL 1,000 mg PO BID #0 Varenicline [Chantix Continuing Pack] 1 mg PO BID Nitroglycerin Sl Tabs [Nitrostat] 0.4 mg SUBLINGUAL Q5M PRN PRN Reason: Chest Pain Enalapril [Vasotec] 10 mg PO BID ALPRAZolam [Xanax] 2 mg PO HS Atorvastatin [Lipitor] 80 mg PO DAILY Dapagliflozin Propanediol [Farxiga] 5 mg PO DAILY Carvedilol [Coreg*] 12.5 mg PO BID Aspirin [Adult Low Dose Aspirin EC] 81 mg PO DAILY Discontinued Isosorbide Mononitrate ER [Imdur] 30 mg PO DAILY Discharge Medication List Fenofibrate [Lofibra] 160 mg PO DAILY 03/02/15 [History] Citalopram Hydrobromide [CeleXA] 40 mg PO DAILY #1 tab 03/10/15 [Rx] Pregabalin [Lyrica] 150 mg PO BID 06/25/15 [History] Cholecalciferol [Vitamin D3] 2,000 unit PO DAILY 01/15/16 [History] INSULIN LISPRO (humaLOG) [humaLOG] See Protocol SQ AC-TID 01/15/16 [History] Insulin Glargine [Lantus] 45 unit SQ DAILY 01/15/16 [History] Folic Acid 1 mg PO DAILY 03/24/16 [History] DULoxetine HCL [Cymbalta] 60 mg PO DAILY 04/13/16 [History] Clopidogrel [Plavix] 75 mg PO HS 07/30/16 [History] lamoTRIgine 200 mg PO BID 07/30/16 [History] Albuterol Nebulized [Ventolin Nebulized] 2.5 mg INHALATION RT-Q4H PRN 03/27/17 [ History] Hydrocodone/Acetaminophen [[place] 7.5-325 Tablet] 1 tab PO DAILY PRN 03/27/17 [ History] Magnesium Gluconate [Magonate] 250 mg PO DAILY 03/27/17 [History] Vitamin B Complex 1 cap PO DAILY 03/27/17 [History] metFORMIN HCL 1,000 mg PO BID #0 03/29/17 [Rx] ALPRAZolam [Xanax] 2 mg PO HS 11/26/17 [History] Aspirin [Adult Low Dose Aspirin EC] 81 mg PO DAILY 11/26/17 [History] Atorvastatin [Lipitor] 80 mg PO DAILY 11/26/17 [History] Carvedilol [Coreg*] 12.5 mg PO BID 11/26/17 [History] Dapagliflozin Propanediol [Farxiga] 5 mg PO DAILY 11/26/17 [History] Enalapril [Vasotec] 10 mg PO BID 11/26/17 [History] Nitroglycerin Sl Tabs [Nitrostat] 0.4 mg SUBLINGUAL Q5M PRN 11/26/17 [History] Varenicline [Chantix Continuing Pack] 1 mg PO BID 11/26/17 [History] Isosorbide Mononitrate ER [Imdur] 60 mg PO DAILY #30 tab.er.24h 03/25/18 [Rx] Follow up Appointment(s)/Referral(s): Dagmar Hennessy MD [Primary Care Provider] - 1-2 days Curt Jasso MD [STAFF PHYSICIAN] - 2 Weeks Discharge Disposition: HOME SELF-CARE
[2018-03-25] MEDS ORDERED: ALPRAZolam 1 MG TAB PO SCH (21:00)
[2018-03-25] MEDS ORDERED: CLOPIDOGREL 75 MG TAB PO SCH (21:00)
== END 2018-03-25 13:48 | disposition home or self-care (01) ==
LOC: EC 01:29 → 3OBS 04:20
PROVIDERS: ADMIT Internal Medicine; ATTEND Internal Medicine
DX: R07.89 Other chest pain (principal); R11.0 Nausea; R07.2 Precordial pain; I25.10 Atherosclerotic heart disease of native coronary artery without angina pectoris; E11.9 Type 2 diabetes mellitus without complications; E78.5 Hyperlipidemia, unspecified; I10 Essential (primary) hypertension; J44.9 Chronic obstructive pulmonary disease, unspecified; Z95.5 Presence of coronary angioplasty implant and graft; M19.90 Unspecified osteoarthritis, unspecified site; F41.9 Anxiety disorder, unspecified; F17.200 Nicotine dependence, unspecified, uncomplicated; F32.9 Major depressive disorder, single episode, unspecified; Z79.899 Other long term (current) drug therapy; E66.9 Obesity, unspecified; Z68.32 Body mass index [BMI] 32.0-32.9, adult; I83.90 Asymptomatic varicose veins of unspecified lower extremity; M79.89 Other specified soft tissue disorders; M79.7 Fibromyalgia; I25.2 Old myocardial infarction; Z99.89 Dependence on other enabling machines and devices; G47.33 Obstructive sleep apnea (adult) (pediatric); G35 Multiple sclerosis; I69.351 Hemiplegia and hemiparesis following cerebral infarction affecting right dominant side; G25.81 Restless legs syndrome; Z79.4 Long term (current) use of insulin; Z79.02 Long term (current) use of antithrombotics/antiplatelets; Z79.82 Long term (current) use of aspirin; Z79.84 Long term (current) use of oral hypoglycemic drugs; Z88.2 Allergy status to sulfonamides; Z88.1 Allergy status to other antibiotic agents; Z91.041 Radiographic dye allergy status; Z91.018 Allergy to other foods; Z91.013 Allergy to seafood; Z80.0 Family history of malignant neoplasm of digestive organs; Z85.41 Personal history of malignant neoplasm of cervix uteri; Z85.42 Personal history of malignant neoplasm of other parts of uterus
CPT/HCPCS: 99285; 96374 ×2; 36415; 93005; 85379; 80053; 82550; 82553; 83735; 84484; 85025; 85610; 85730; 71045; G0378; J2405

== ENCOUNTER 2018-06-10 16:33 | Observation (INO) | payer OTHER ==
[2018-06-10] MEDS ORDERED: diphenhydrAMINE 50 MG/ML 1 ML VIAL IVP STA (17:03)
[2018-06-10] MEDS ORDERED: methylPREDNISolone SOD SUCCI 125 MG/2 ML VIAL IV STA (17:03)
[2018-06-10] MEDS ORDERED: FAMOTIDINE 20 MG/2 ML VIAL IV STA (17:03)
[2018-06-10] MEDS ORDERED: SODIUM CHLORIDE 0.9% 500 ML IV STA (17:03)
[2018-06-10] MEDS ORDERED: SODIUM CHLORIDE 0.9% 1,000 ML IV STA (17:03)
--- NOTE | 2018-06-10 17:05 | ED ---
General Adult HPI - General Chief complaint: Chest Pain Stated complaint: Chest Pain Time Seen by Provider: 06/10/18 16:57 Source: patient, RN notes reviewed, old records reviewed Mode of arrival: ambulatory Limitations: no limitations - History of Present Illness Initial comments: This is a 47-year-old female the ER for evaluation. Patient resents today for evaluation of increased fatigue increased chest pain. Patient is calm. Medical history including CVA CVA CAD. Patient has no recent travel history no known sick contacts. No fevers no cough or congestion. Patient states that she is feels very fatigued. states patient did not get so tired and lethargic and somnolent to coming to the emergency room today. He does admit that she is complaining of chest pain all day. - Related Data Home Medications Medication Instructions Recorded Confirmed Fenofibrate [Lofibra] 160 mg PO DAILY 03/02/15 06/10/18 Pregabalin [Lyrica] 150 mg PO BID 06/25/15 06/10/18 Cholecalciferol [Vitamin D3] 2,000 unit PO DAILY 01/15/16 06/10/18 INSULIN LISPRO (humaLOG) [humaLOG] See Protocol SQ AC-TID 01/15/16 06/10/18 Insulin Glargine [Lantus] 45 unit SQ DAILY 01/15/16 06/10/18 Folic Acid 1 mg PO DAILY 03/24/16 06/10/18 Clopidogrel [Plavix] 75 mg PO HS 07/30/16 06/10/18 lamoTRIgine 200 mg PO BID 07/30/16 06/10/18 Albuterol Nebulized [Ventolin 2.5 mg INHALATION RT-Q4H PRN 03/27/17 06/10/18 Nebulized] Magnesium Gluconate [Magonate] 250 mg PO DAILY 03/27/17 06/10/18 ALPRAZolam [Xanax] 2 mg PO HS 11/26/17 06/10/18 Aspirin [Adult Low Dose Aspirin EC] 81 mg PO DAILY 11/26/17 06/10/18 Atorvastatin [Lipitor] 80 mg PO DAILY 11/26/17 06/10/18 Carvedilol [Coreg*] 12.5 mg PO BID 11/26/17 06/10/18 Dapagliflozin Propanediol [Farxiga] 5 mg PO DAILY 11/26/17 06/10/18 Enalapril [Vasotec] 10 mg PO BID 11/26/17 06/10/18 Nitroglycerin Sl Tabs [Nitrostat] 0.4 mg SUBLINGUAL Q5M PRN 11/26/17 06/10/18 Varenicline [Chantix Continuing 1 mg PO BID 11/26/17 06/10/18 Pack] Previous Rx's Medication Instructions Recorded Citalopram Hydrobromide [CeleXA] 40 mg PO DAILY #1 tab 03/10/15 metFORMIN HCL 1,000 mg PO BID #0 03/29/17 Isosorbide Mononitrate ER [Imdur] 60 mg PO DAILY #30 tab.er.24h 03/25/18 Allergies Allergy/AdvReac Type Severity Reaction Status Date / Time Fish Containing Products Allergy Unknown Verified 06/10/18 17:41 Iodinated Contrast- Oral and Allergy throat Verified 06/10/18 17:41 IV Dye swelling [Iodinated Contrast Media - IV Dye] Sulfa (Sulfonamide Allergy throat Verified 06/10/18 17:41 Antibiotics) swelling sulfamethoxazole Allergy throat Verified 06/10/18 17:41 [From Septra] swelling trimethoprim [From Septra] Allergy throat Verified 06/10/18 17:41 swelling NUTS Allergy Unknown Uncoded 03/25/18 06:59 Review of Systems ROS Statement: Those systems with pertinent positive or pertinent negative responses have been documented in the HPI. ROS Other: All systems not noted in ROS Statement are negative. 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 andper pt' s spouse- slight foot drag when tired.diabetes mellitus insulin-dependent, hypertension, hyperlipidemia, fibromyalgia, obstructive sleep apnea, MS, questionable hypercoagulable disease, anxiety, depression, obesity, ovarian cyst Last Myocardial Infarction Date:: unk History of Any Multi-Drug Resistant Organisms: None Reported Past Surgical History: Section, Cholecystectomy, Heart Catheterization With Stent, Hysterectomy, Tubal Ligation, Uterine Ablation Additional Past Surgical History / Comment(s): vein stripping right leg, radio frequency ablation of right back-02/22/2015, four stents on 04/03/16 and one on march 05 Past Anesthesia/Blood Transfusion Reactions: Motion Sickness Additional Past Anesthesia/Blood Transfusion Reaction / Comment(s): mild clausterphobia Date of Last Stent Placement:: 2003 Past Psychological History: Anxiety, Depression Smoking Status: Current every day smoker Past Alcohol Use History: None Reported Past Drug Use History: None Reported - Past Family History Father Family Medical History: Congestive Heart Failure (CHF), Coronary Artery Disease (CAD), Diabetes Mellitus Mother Family Medical History: Cancer, Hypertension, Respiratory Disorder Additional Family Medical History / Comment(s): emphysema, colon CA General Exam Limitations: no limitations General appearance: alert, in no apparent distress Head exam: Present: atraumatic, normocephalic, normal inspection Eye exam: Present: normal appearance, PERRL, EOMI. Absent: scleral icterus, conjunctival injection, periorbital swelling ENT exam: Present: normal exam, mucous membranes moist Neck exam: Present: normal inspection. Absent: tenderness, meningismus, lymphadenopathy Respiratory exam: Present: normal lung sounds bilaterally. Absent: respiratory distress, wheezes, rales, rhonchi, stridor Cardiovascular Exam: Present: regular rate, normal rhythm, normal heart sounds. Absent: systolic murmur, diastolic murmur, rubs, gallop, clicks GI/Abdominal exam: Present: soft, normal bowel sounds. Absent: distended, tenderness, guarding, rebound, rigid Extremities exam: Present: normal inspection, full ROM, normal capillary refill. Absent: tenderness, pedal edema, joint swelling, calf tenderness Back exam: Present: normal inspection Neurological exam: Present: alert, oriented X3, CN II-XII intact Psychiatric exam: Present: normal affect, normal mood Skin exam: Present: warm, dry, intact, normal color. Absent: rash Course Vital Signs 06/10/18 06/10/18 16:43 18:46 Temperature 97.9 F Pulse Rate 74 68 Respiratory 16 18 Rate Blood Pressure 174/91 187/84 O2 Sat by Pulse 96 94 L Oximetry - Reevaluation(s) Reevaluation #1: 06/10/18 19:54 Medical records thoroughly reviewed Reevaluation #2: 06/10/18 19:54 Patient remains fatigued with chest pain EKG Findings - EKG Comments: EKG Findings:: EKG shows sinus rhythm rate of 71, WI 166, QRS 140, QTc 465 Medical Decision Making - Medical Decision Making 47 female the ER for evaluation chest pain. History of significant heart disease coming in with continued chest pain and fatigue. Patient has normal CAT scan of chest and will be admitted for cardiac observation - Lab Data Result diagrams: 06/10/18 17:00 06/10/18 17:00 Lab Results 06/10/18 06/10/18 06/10/18 Range/Units 17:00 17:00 17:00 WBC 9.8 (3.8-10.6) k/uL RBC 4.78 (3.80-5.40) m/uL Hgb 15.2 (11.4-16.0) gm/dL Hct 43.1 (34.0-46.0) % MCV 90.2 (80.0-100.0) fL MCH 31.7 (25.0-35.0) pg MCHC 35.2 (31.0-37.0) g/dL RDW 13.4 (11.5-15.5) % Plt Count 254 (150-450) k/uL Neutrophils % 63 % Lymphocytes % 30 % Monocytes % 4 % Eosinophils % 1 % Basophils % 0 % Neutrophils # 6.2 (1.3-7.7) k/uL Lymphocytes # 3.0 (1.0-4.8) k/uL Monocytes # 0.4 (0-1.0) k/uL Eosinophils # 0.1 (0-0.7) k/uL Basophils # 0.0 (0-0.2) k/uL PT (9.0-12.0) sec INR (<1.2) APTT (22.0-30.0) sec D-Dimer (<0.60) mg/L FEU Sodium 135 L (137-145) mmol/L Potassium 4.1 (3.5-5.1) mmol/L Chloride 101 (98-107) mmol/L Carbon Dioxide 23 (22-30) mmol/L Anion Gap 11 mmol/L BUN 14 (7-17) mg/dL Creatinine 0.64 (0.52-1.04) mg/dL Est GFR (CKD-EPI)AfAm >90 (>60 ml/min/1.73 sqM) Est GFR (CKD-EPI)NonAf >90 (>60 ml/min/1.73 sqM) Glucose 320 H (74-99) mg/dL Calcium 9.8 (8.4-10.2) mg/dL Magnesium 1.4 L (1.6-2.3) mg/dL Total Bilirubin 0.6 (0.2-1.3) mg/dL AST 14 (14-36) U/L ALT 23 (9-52) U/L Alkaline Phosphatase 131 H (38-126) U/L Total Creatine Kinase 72 (30-135) U/L CK-MB (CK-2) 1.5 (0.0-2.4) ng/mL CK-MB (CK-2) Rel Index 2.1 Troponin I <0.012 (0.000-0.034) ng/mL Total Protein 6.7 (6.3-8.2) g/dL Albumin 4.2 (3.5-5.0) g/dL Lipase 68 (23-300) U/L 06/10/18 Range/Units 17:00 WBC (3.8-10.6) k/uL RBC (3.80-5.40) m/uL Hgb (11.4-16.0) gm/dL Hct (34.0-46.0) % MCV (80.0-100.0) fL MCH (25.0-35.0) pg MCHC (31.0-37.0) g/dL RDW (11.5-15.5) % Plt Count (150-450) k/uL Neutrophils % % Lymphocytes % % Monocytes % % Eosinophils % % Basophils % % Neutrophils # (1.3-7.7) k/uL Lymphocytes # (1.0-4.8) k/uL Monocytes # (0-1.0) k/uL Eosinophils # (0-0.7) k/uL Basophils # (0-0.2) k/uL PT 10.8 (9.0-12.0) sec INR 1.1 (<1.2) APTT 30.5 H (22.0-30.0) sec D-Dimer 0.30 (<0.60) mg/L FEU Sodium (137-145) mmol/L Potassium (3.5-5.1) mmol/L Chloride (98-107) mmol/L Carbon Dioxide (22-30) mmol/L Anion Gap mmol/L BUN (7-17) mg/dL Creatinine (0.52-1.04) mg/dL Est GFR (CKD-EPI)AfAm (>60 ml/min/1.73 sqM) Est GFR (CKD-EPI)NonAf (>60 ml/min/1.73 sqM) Glucose (74-99) mg/dL Calcium (8.4-10.2) mg/dL Magnesium (1.6-2.3) mg/dL Total Bilirubin (0.2-1.3) mg/dL AST (14-36) U/L ALT (9-52) U/L Alkaline Phosphatase (38-126) U/L Total Creatine Kinase (30-135) U/L CK-MB (CK-2) (0.0-2.4) ng/mL CK-MB (CK-2) Rel Index Troponin I (0.000-0.034) ng/mL Total Protein (6.3-8.2) g/dL Albumin (3.5-5.0) g/dL Lipase (23-300) U/L - Radiology Data Radiology results: report reviewed (CTA chest is negative), image reviewed Critical Care Time Critical Care Time: Yes Total Critical Care Time: 31 Disposition Clinical Impression: Unstable angina pectoris, Chest pain Disposition: ADMITTED IP TO THIS [facility] Condition: Undetermined Instructions: Chest Pain (ED) Is patient prescribed a controlled substance at d/c from ED?: No Referrals: Dagmar Hennessy MD [Primary Care Provider] - 1-2 days
[2018-06-10 17:11] LABS: Basophils % (A) 0 %; Eosinophils # (A) 0.1 k/uL (0-0.7); Eosinophils % (A) 1 %; HCT 43.1 % (34.0-46.0); HGB 15.2 gm/dL (11.4-16.0); Lymphocytes % (A) 30 %; MCH 31.7 pg (25.0-35.0); MCHC 35.2 g/dL (31.0-37.0); MCV 90.2 fL (80.0-100.0); Mean Platelet Volume 8.1; Monocytes # (A) 0.4 k/uL (0-1.0); Monocytes % (A) 4 %; Neutrophils # (A) 6.2 k/uL (1.3-7.7); Neutrophils % (A) 63 %; Platelet Count 254 k/uL (150-450); RBC 4.78 m/uL (3.80-5.40); RDW 13.4 % (11.5-15.5); WBC 9.8 k/uL (3.8-10.6)
[2018-06-10 17:20] LABS: ALT 23 U/L (9-52); AST 14 U/L (14-36); Albumin 4.2 g/dL (3.5-5.0); Alkaline Phosphatase 131 U/L (38-126); Anion Gap 11 mmol/L; Blood Urea Nitrogen 14 mg/dL (7-17); Calcium 9.8 mg/dL (8.4-10.2); Carbon Dioxide 23 mmol/L (22-30); Chloride 101 mmol/L (98-107); Glucose 320 mg/dL (74-99); Lipase 68 U/L (23-300); Magnesium 1.4 mg/dL (1.6-2.3); Potassium 4.1 mmol/L (3.5-5.1); Sodium 135 mmol/L (137-145); Total Bilirubin 0.6 mg/dL (0.2-1.3); Total Protein 6.7 g/dL (6.3-8.2)
[2018-06-10 17:29] LABS: D-Dimer 0.3 mg/L FEU (<0.60); INR 1.1 (<1.2); Prothrombin Time 10.8 sec (9.0-12.0)
[2018-06-10 17:30] LABS: Partial Thromboplastin Time 30.5 sec (22.0-30.0)
[2018-06-10 17:34] LABS: Creatine Kinase 72 U/L (30-135)
[2018-06-10 17:48] LABS: Creatine Kinase MB 1.5 ng/mL (0.0-2.4); Troponin I <0.012 ng/mL (0.000-0.034)
--- NOTE | 2018-06-10 18:55 | CT ---
EXAMINATION TYPE: CT angio chest DATE OF EXAM: 06/10/2018 6:39 PM COMPARISON: None HISTORY: Left sided chest pain. CT DLP: 506.7 mGycm Automated exposure control for dose reduction was used. CONTRAST: CTA scan of the thorax is performed with IV Contrast, patient injected with 70 mL of Isovue 370, pulm onary embolism protocol. There are 3-D post processed images.. FINDINGS: The lungs are clear of consolidation. There is no evidence of a pulmonary mass. There is wedge-shaped area of interstitial infiltrate in the superior segment left lower lobe. There is coarse interstitia l infiltrate at the posterior lung bases. Heart size is normal. There is no pericardial effusion. There is mild aneurysm of the ascending aorta.. The ascending aorta measures 4.1 cm. There are no filling defects in the pulmonary arteries. There is no mediastinal adenopathy. There are no hilar masses. IMPRESSION: INTERSTITIAL PULMONARY INFILTRATES. NO EVIDENCE OF PULMONARY EMBOLISM. MILD THORACIC AORTIC ANEURYSM.
[2018-06-10] MEDS ORDERED: HEPARIN SODIUM,PORCINE 5,000 UNIT/ML 1 ML VIAL IV PRN (19:52)
[2018-06-10] MEDS ORDERED: HEPARIN SODIUM,PORCINE 5,000 UNIT/ML 1 ML VIAL IV ONE (19:52)
[2018-06-10] MEDS ORDERED: ASPIRIN 81 MG PO STA (19:52)
[2018-06-10] MEDS ORDERED: NITROGLYCERIN SL TABS 0.4 MG TAB SUBLINGUAL PRN (19:52)
[2018-06-10] MEDS ORDERED: HEPARIN SOD,PORK IN 0.45% NACL 25,000 UNIT in 0.45% NACL 1 500ML.BAG IV SCH (20:00)
[2018-06-10 20:14] VITALS: RESP 16
[2018-06-10] MEDS ORDERED: METOPROLOL TARTRATE 25 MG TAB PO SCH (21:00)
[2018-06-10 22:08] VITALS: BMI 31.9
[2018-06-10 23:44] LABS: Creatine Kinase 61 U/L (30-135)
[2018-06-10] MEDS ORDERED: ENALAPRILAT 1.25 MG/ML 1 ML VIAL IVP PRN (23:50)
[2018-06-10 23:58] LABS: Creatine Kinase MB 1.5 ng/mL (0.0-2.4); Troponin I <0.012 ng/mL (0.000-0.034)
[2018-06-11] MEDS: CARVEDILOL 12.5 MG TAB PO SCH ×2 (01:02→08:43)
[2018-06-11 04:44] LABS: Mean Platelet Volume 7.4; Platelet Count 225 k/uL (150-450)
[2018-06-11 05:03] LABS: Cholesterol 143 mg/dL (<200); HDL Cholesterol 44 mg/dL (40-60); LDL Cholesterol,Calculated 58 mg/dL (0-99); Triglycerides 204 mg/dL (<150)
[2018-06-11 05:05] LABS: Creatine Kinase 65 U/L (30-135)
[2018-06-11 05:18] LABS: Creatine Kinase MB 1.4 ng/mL (0.0-2.4); Troponin I <0.012 ng/mL (0.000-0.034)
[2018-06-11 07:44] LABS: Glucose,Whole Blood 351 mg/dL (75-99)
[2018-06-11] MEDS ORDERED: ASPIRIN 81 MG PO SCH (09:00)
[2018-06-11] MEDS ORDERED: ATORVASTATIN 80 MG TAB PO SCH (09:00)
[2018-06-11] MEDS ORDERED: ISOSORBIDE MONONITRATE ER 60 MG TAB.ER.24H PO SCH (09:00)
[2018-06-11] MEDS ORDERED: FENOFIBRATE 160 MG TAB PO SCH (09:00)
[2018-06-11] MEDS ORDERED: LISINOPRIL 20 MG TAB PO SCH (09:00)
[2018-06-11] MEDS ORDERED: ASPIRIN 325 MG TAB PO SCH (09:00)
[2018-06-11 09:22] LABS: Basophils % (A) 0 %; Eosinophils # (A) 0.2 k/uL (0-0.7); Eosinophils % (A) 2 %; HCT 49.5 % (34.0-46.0); HGB 16.7 gm/dL (11.4-16.0); Lymphocytes # (A) 1.3 k/uL (1.0-4.8); Lymphocytes % (A) 9 %; MCH 30.8 pg (25.0-35.0); MCHC 33.6 g/dL (31.0-37.0); MCV 91.5 fL (80.0-100.0); Mean Platelet Volume 7.5; Monocytes # (A) 0.2 k/uL (0-1.0); Monocytes % (A) 1 %; Neutrophils % (A) 88 %; Platelet Count 256 k/uL (150-450); RBC 5.41 m/uL (3.80-5.40); RDW 13.5 % (11.5-15.5); WBC 14.8 k/uL (3.8-10.6)
[2018-06-11 09:52] LABS: ALT 27 U/L (9-52); AST 27 U/L (14-36); Albumin 4.5 g/dL (3.5-5.0); Alkaline Phosphatase 118 U/L (38-126); Anion Gap 13 mmol/L; Blood Urea Nitrogen 16 mg/dL (7-17); Carbon Dioxide 22 mmol/L (22-30); Chloride 101 mmol/L (98-107); Glucose 384 mg/dL (74-99); Potassium 4.4 mmol/L (3.5-5.1); Sodium 136 mmol/L (137-145); Total Bilirubin 0.8 mg/dL (0.2-1.3); Total Protein 7.2 g/dL (6.3-8.2)
[2018-06-11] MEDS ORDERED: ALBUTEROL NEBULIZED 2.5 MG/3 ML INHALATION PRN (10:34)
[2018-06-11] MEDS ORDERED: INSULIN DETEMIR 100 UNIT/ML 10 ML VIAL SQ SCH (10:38)
[2018-06-11] MEDS ORDERED: CITALOPRAM HYDROBROMIDE 20 MG TAB PO SCH (10:45)
[2018-06-11] MEDS ORDERED: PREGABALIN 75 MG CAP PO SCH (10:45)
--- NOTE | 2018-06-11 11:02 | P.CRDCN ---
History of Present Illness History of present illness: Mrs. Langley is a pleasant 47-year-old female past medical history significant for coronary artery disease, hypertension, dyslipidemia, diabetes mellitus, obstructive sleep apnea and chronic nicotine dependence. She follows with Dr. Jasso in the office. We have been asked to see her in consultation for chest pain. She states she has been feeling discomfort in the left precordial region starting in the mid-sternal region and radiating under her left breast. The discomfort is associated with deep inspiration and mild shortness of breath. She feels as though she can't take a deep breath due to the pain. She denies palpitations, nausea, vomiting, dizziness or diaphoresis. She is seen resting comfortably and laying flat in bed. She denies PND, orthopnea, fever/ chills or cough. Most recent cardiac catheterization February 2017 revealed patent stents within the LAD and diagonal branch. RCA with a 30-40% stenosis proximally. Since then she has undergone stress testing and [facility] in June 2017 which was negative for stress-induced cardiac ischemia. EKG reveals sinus mechanism with non-specific abnormalities. No acute findings when compared to old EKG's. CTA reveals interstitial pulmonary infiltrates with no evidence of pulmonary embolism and a mild thoracic aortic aneurysm measuring 4.1 cm. Laboratory data reviewed, WBC 14.8, hemoglobin 16.7, platelets 256, d-dimer 0.3 , sodium 136, potassium 4.4, magnesium 1.4, creatinine 0.64, cardiac enzymes negative 3, LDL 58, HDL 44. Current cardiac medications include Imdur 60 mg daily, enalapril 10 mg twice a day, Plavix 75 mg daily, carvedilol 12.5 mg twice a day, atorvastatin 80 mg daily and aspirin 81 mg daily. She also takes metformin, Lamictal, Lyrica, Lantus, Humalog, Celexa, Ventolin and Xanax. Review of Systems At the time of my exam: CONSTITUTIONAL: Denies fever. Denies chills. EYES: Denies blurred vision. Denies vision changes. Denies eye pain. EARS, NOSE, MOUTH & THROAT: Denies headache. Denies sore throat. Denies ear pain. CARDIOVASCULAR: Denies chest pain. Denies shortness of breath. Denies orthopnea. Denies PND. Denies palpitations. RESPIRATORY: Denies cough. GASTROINTESTINAL: Denies abdominal pain. Denies diarrhea. Denies constipation. Denies nausea. Denies vomiting. MUSCULOSKELETAL: Complains of pleuritic chest pain. INTEGUMENTARY: Denies pruitis. Denies rash. NEUROLOGIC: Denies numbness. Denies tingling. Denies weakness. PSYCHIATRIC: Denies anxiety. Denies depression. ENDOCRINE: Denies fatigue. Denies weight change. Denies polydipsia. Denies polyurina. GENITOURINARY: Denies burning, hematuria or urgency with micturation. HEMATOLOGIC: Denies history of anemia. Denies bleeding. Past Medical History Past Medical History: Cancer, Chest Pain / Angina, CVA/TIA, Diabetes Mellitus, Fibromyalgia, Hyperlipidemia, Hypertension, Myocardial Infarction (PR), Musculoskeletal Disorder, Sleep Apnea/CPAP/BIPAP Additional Past Medical History / Comment(s): 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 andper pt' s spouse- slight foot drag when tired.diabetes mellitus insulin-dependent, hypertension, hyperlipidemia, fibromyalgia, obstructive sleep apnea, MS, questionable hypercoagulable disease, anxiety, depression, obesity, ovarian cyst , MIX5 Last Myocardial Infarction Date:: unk History of Any Multi-Drug Resistant Organisms: None Reported Past Surgical History: Section, Cholecystectomy, Heart Catheterization With Stent, Hysterectomy, Tubal Ligation, Uterine Ablation Additional Past Surgical History / Comment(s): vein stripping right leg, radio frequency ablation of right back-02/22/2015, four stents on 04/03/16 and one on march 05 Past Anesthesia/Blood Transfusion Reactions: Motion Sickness Additional Past Anesthesia/Blood Transfusion Reaction / Comment(s): mild clausterphobia Date of Last Stent Placement:: 2003 Smoking Status: Current every day smoker - Past Family History Father Family Medical History: Congestive Heart Failure (CHF), Coronary Artery Disease (CAD), Diabetes Mellitus Mother Family Medical History: Cancer, Hypertension, Respiratory Disorder Additional Family Medical History / Comment(s): emphysema, colon CA Medications and Allergies Home Medications Medication Instructions Recorded Confirmed Type Fenofibrate [Lofibra] 160 mg PO DAILY 03/02/15 06/10/18 History Citalopram Hydrobromide [CeleXA] 40 mg PO DAILY #1 tab 03/10/15 06/10/18 Rx Pregabalin [Lyrica] 150 mg PO BID 06/25/15 06/10/18 History Cholecalciferol [Vitamin D3] 2,000 unit PO DAILY 01/15/16 06/10/18 History INSULIN LISPRO (humaLOG) [humaLOG] See Protocol SQ AC-TID 01/15/16 06/10/18 History Insulin Glargine [Lantus] 45 unit SQ DAILY 01/15/16 06/10/18 History Folic Acid 2 mg PO DAILY 03/24/16 06/10/18 History Clopidogrel [Plavix] 75 mg PO HS 07/30/16 06/10/18 History lamoTRIgine 200 mg PO BID 07/30/16 06/10/18 History Albuterol Nebulized [Ventolin 2.5 mg INHALATION RT-Q4H PRN 03/27/17 06/10/18 History Nebulized] Magnesium Gluconate [Magonate] 250 mg PO DAILY 03/27/17 06/10/18 History metFORMIN HCL 1,000 mg PO BID #0 03/29/17 06/10/18 Rx ALPRAZolam [Xanax] 2 mg PO HS 11/26/17 06/10/18 History Aspirin [Adult Low Dose Aspirin EC] 81 mg PO DAILY 11/26/17 06/10/18 History Atorvastatin [Lipitor] 80 mg PO DAILY 11/26/17 06/10/18 History Carvedilol [Coreg*] 12.5 mg PO BID 11/26/17 06/10/18 History Enalapril [Vasotec] 10 mg PO BID 11/26/17 06/10/18 History Nitroglycerin Sl Tabs [Nitrostat] 0.4 mg SUBLINGUAL Q5M PRN 11/26/17 06/10/18 History Varenicline [Chantix Continuing 1 mg PO BID 11/26/17 06/10/18 History Pack] Isosorbide Mononitrate ER [Imdur] 60 mg PO DAILY #30 tab.er.24h 03/25/18 Rx Allergies Allergy/AdvReac Type Severity Reaction Status Date / Time Fish Containing Products Allergy Unknown Verified 06/10/18 21:53 Iodinated Contrast- Oral and Allergy throat Verified 06/10/18 21:53 IV Dye swelling [Iodinated Contrast Media - IV Dye] Sulfa (Sulfonamide Allergy throat Verified 06/10/18 21:53 Antibiotics) swelling sulfamethoxazole Allergy throat Verified 06/10/18 21:53 [From ] swelling trimethoprim [From ] Allergy throat Verified 06/10/18 21:53 swelling NUTS Allergy Unknown Uncoded 06/10/18 21:53 Physical Exam Vitals: Vital Signs Temp Pulse Pulse Resp BP BP Pulse Ox 06/11/18 08:00 69 16 06/11/18 07:53 98.4 F 69 16 170/80 93 L 06/11/18 04:00 16 06/11/18 03:58 98.0 F 65 16 191/96 94 L 06/10/18 23:56 16 06/10/18 23:25 63 16 195/89 97 06/10/18 22:00 16 06/10/18 21:55 98.2 F 65 16 174/97 94 L 06/10/18 20:14 67 16 174/82 92 L 06/10/18 18:46 68 18 187/84 94 L 06/10/18 16:43 97.9 F 74 16 174/91 96 Intake and Output 06/10/18 06/11/18 06/11/18 22:59 06:59 14:59 Intake Total 165 Balance 165 Intake: Intake, IV Titration 165 Amount Heparin Sod,Pork in 0.45% 165 NaCl 25,000 unit In 0.45 % NaCl 1 500ml.bag @ 11. 14 UNITS/KG/HR 20 mls/hr IV .Q24H [facility] Rx#: [id number] Other: Voiding Method Toilet # Voids 1 Weight 89.9 kg Blood pressure 170/80 heart rate 69 afebrile maintaining oxygen saturation on room air GENERAL: This is a 47-year-old female in no apparent distress at the time of my examination. Obese. HEENT: Head is atraumatic, normocephalic. Pupils are equal, round. Sclerae anicteric. Conjunctivae are clear. Mucous membranes of the mouth are moist. Neck is supple. There is no jugular venous distention. No carotid bruit is heard. LUNGS: Clear to auscultation no wheezes, rales or rhonchi. No chest wall tenderness is noted on palpation or with deep breathing. HEART: Regular rate and rhythm without murmurs, rubs or gallops. S1 and S2 heard. ABDOMEN: Soft, nontender. Bowel sounds are heard. No organomegaly noted. EXTREMITIES: No evidence of peripheral edema and no calf tenderness noted. VASCULAR: Radial and dorsalis pedis pulses palpated, no evidence of clubbing. NEUROLOGIC: Patient is awake, alert and oriented x3. Results 06/11/18 09:09 06/11/18 09:09 Cardiac Enzymes 06/10/18 06/10/18 06/10/18 Range/Units 17:00 17:00 23:11 AST 14 (14-36) U/L CK-MB (CK-2) 1.5 1.5 (0.0-2.4) ng/mL Troponin I <0.012 <0.012 (0.000-0.034) ng/mL 06/11/18 06/11/18 Range/Units 04:31 09:09 AST 27 (14-36) U/L CK-MB (CK-2) 1.4 (0.0-2.4) ng/mL Troponin I <0.012 (0.000-0.034) ng/mL Coagulation 06/10/18 06/11/18 Range/Units 17:00 04:31 PT 10.8 (9.0-12.0) sec APTT 30.5 H 37.7 H (22.0-30.0) sec Lipids 06/11/18 Range/Units 04:31 Triglycerides 204 H (<150) mg/dL Cholesterol 143 (<200) mg/dL HDL Cholesterol 44 (40-60) mg/dL CBC 06/10/18 06/11/18 06/11/18 Range/Units 17:00 04:31 09:09 WBC 9.8 14.8 H (3.8-10.6) k/uL RBC 4.78 5.41 H (3.80-5.40) m/uL Hgb 15.2 16.7 H (11.4-16.0) gm/dL Hct 43.1 49.5 H (34.0-46.0) % Plt Count 254 225 256 (150-450) k/uL Comprehensive Metabolic Panel 06/10/18 06/11/18 Range/Units 17:00 09:09 Sodium 135 L 136 L (137-145) mmol/L Potassium 4.1 4.4 (3.5-5.1) mmol/L Chloride 101 101 (98-107) mmol/L Carbon Dioxide 23 22 (22-30) mmol/L BUN 14 16 (7-17) mg/dL Creatinine 0.64 0.64 (0.52-1.04) mg/dL Glucose 320 H 384 H (74-99) mg/dL Calcium 9.8 10.0 (8.4-10.2) mg/dL AST 14 27 (14-36) U/L ALT 23 27 (9-52) U/L Alkaline Phosphatase 131 H 118 (38-126) U/L Total Protein 6.7 7.2 (6.3-8.2) g/dL Albumin 4.2 4.5 (3.5-5.0) g/dL Current Medications Generic Name Dose Route Start Last Admin Trade Name Freq PRN Reason Stop Dose Admin Albuterol Sulfate 2.5 mg 06/11/18 10:34 Ventolin Nebulized INHALATION RT-Q4H PRN Shortness Of Breath Alprazolam 2 mg 06/11/18 21:00 Xanax PO HS [facility] Aspirin 81 mg 06/11/18 09:00 06/11/18 08:42 Aspirin PO 81 mg DAILY [facility] Administration Atorvastatin Calcium 80 mg 06/11/18 09:00 06/11/18 08:42 Lipitor PO 80 mg DAILY [facility] Administration Carvedilol 12.5 mg 06/10/18 23:45 06/11/18 08:43 Coreg PO 12.5 mg BID [facility] Administration Cholecalciferol 2,000 unit 06/12/18 09:00 Vitamin D3 PO DAILY [facility] Citalopram Hydrobromide 40 mg 06/11/18 10:45 Celexa PO DAILY [facility] Clopidogrel Bisulfate 75 mg 06/11/18 21:00 Plavix PO HS [facility] Enalaprilat 1.25 mg 06/10/18 23:50 06/11/18 03:57 Vasotec IVP 1.25 mg Q6HR PRN Administration Blood Pressure - High Fenofibrate 160 mg 06/11/18 09:00 Lofibra PO DAILY [facility] Folic Acid 2 mg 06/12/18 09:00 Folic Acid PO DAILY [facility] Heparin Sodium (Porcine) 0 unit 06/10/18 19:52 Heparin IV Q6HR PRN Low PTT Protocol Insulin Aspart 0 unit 06/11/18 12:30 Novolog SQ ACHS [facility] Protocol Insulin Detemir 45 unit 06/11/18 10:38 Levemir SQ DAILY [facility] Isosorbide Mononitrate 60 mg 06/11/18 09:00 Imdur PO DAILY [facility] Lisinopril 40 mg 06/11/18 09:00 06/11/18 08:43 Zestril PO 40 mg DAILY [facility] Administration Magnesium Oxide 400 mg 06/12/18 09:00 Mag-Ox PO DAILY [facility] Metformin HCl 1,000 mg 06/11/18 21:00 Glucophage PO BID [facility] Nitroglycerin 0.4 mg 06/10/18 19:52 Nitrostat SUBLINGUAL Q5M PRN Chest Pain Pregabalin 150 mg 06/11/18 10:45 Lyrica PO BID [facility] Intake and Output 06/10/18 06/11/18 06/11/18 22:59 06:59 14:59 Intake Total 165 Balance 165 Intake: Intake, IV Titration 165 Amount Heparin Sod,Pork in 0.45% 165 NaCl 25,000 unit In 0.45 % NaCl 1 500ml.bag @ 11. 14 UNITS/KG/HR 20 mls/hr IV .Q24H [facility] Rx#: [id number] Other: Voiding Method Toilet # Voids 1 Weight 89.9 kg 06/11/18 09:09 06/11/18 09:09 Assessment and Plan Assessment: ASSESSMENT Pleuritic chest pain. Acute coronary event has been ruled out. History of coronary artery disease, most recent catheterization performed February 2017 revealed patent stents of the LAD and diagonal branch. Mild 30-40% proximal RCA disease noted at that time. Hypertension, uncontrolled Dyslipidemia Diabetes mellitus Chronic nicotine dependence Obesity PLAN Obtain 2D echocardiogram and doppler study to assess for pericardial effusion or pericarditis. If normal she is stable from a cardiac perspective. Increase carvedilol to 25 mg BID for better blood pressure control. An acute coronary event has been ruled out with negative cardiac enzymes and no EKG evidence of acute ischemia. Ongoing medical management of possible underlying pulmonary disease. Follow up with Dr. Jasso in 2-3 weeks. Thank you kindly for this consultation. Nurse Practitioner note has been reviewed, I agree with a documented findings and plan of care. Patient was seen and examined.
--- NOTE | 2018-06-11 11:22 | P.HPIM ---
History of Present Illness H&P Date: 06/11/18 Chief Complaint: chest pain This is a 48-year-old patient of Dr. so. Patient presented to the emergency room with complaints of increased chest pain and fatigue. The known past medical history of chest pain, CVA with right residual, fibromyalgia, hyperlipidemia, hypertension, myocardial infarction, musculoskeletal disorder, sleep apnea, uterine and cervical cancer, diabetes mellitus, anxiety, depression and obesity. Patient does state that she often gets chest pain that seems to correlate with anxiety and that she usually smokes cigarettes but hopes to alleviate her pain. Patient stated that chest pain occurred and she had 2 cigarettes and the pain did not diminish and patient was brought into the hospital by her spouse. The chest completed showing interstitial pulmonary infiltrates. No evidence of pulmonary embolism. Mild thoracic aortic aneurysm. EKG completed showing normal sinus rhythm. Left axis deviation. Left ventricular hypertrophy with QRS widening. [facility] Cardiology services have been consulted. Denies shortness of breath at this time. Patient does state she still has minimal chest pain. Patient denies nausea vomiting or diarrhea. Denies any urinary symptoms. Review of Systems please refer to HPI otherwise unremarkable Past Medical History Past Medical History: Cancer, Chest Pain / Angina, CVA/TIA, Diabetes Mellitus, Fibromyalgia, Hyperlipidemia, Hypertension, Myocardial Infarction (PR), Musculoskeletal Disorder, Sleep Apnea/CPAP/BIPAP Additional Past Medical History / Comment(s): 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 andper pt' s spouse- slight foot drag when tired.diabetes mellitus insulin-dependent, hypertension, hyperlipidemia, fibromyalgia, obstructive sleep apnea, MS, questionable hypercoagulable disease, anxiety, depression, obesity, ovarian cyst , [id number] Last Myocardial Infarction Date:: unk History of Any Multi-Drug Resistant Organisms: None Reported Past Surgical History: Section, Cholecystectomy, Heart Catheterization With Stent, Hysterectomy, Tubal Ligation, Uterine Ablation Additional Past Surgical History / Comment(s): vein stripping right leg, radio frequency ablation of right back-02/22/2015, four stents on 04/03/16 and one on march 05 Past Anesthesia/Blood Transfusion Reactions: Motion Sickness Additional Past Anesthesia/Blood Transfusion Reaction / Comment(s): mild clausterphobia Date of Last Stent Placement:: 2003 Smoking Status: Current every day smoker - Past Family History Father Family Medical History: Congestive Heart Failure (CHF), Coronary Artery Disease (CAD), Diabetes Mellitus Mother Family Medical History: Cancer, Hypertension, Respiratory Disorder Additional Family Medical History / Comment(s): emphysema, colon CA Medications and Allergies Home Medications Medication Instructions Recorded Confirmed Type Fenofibrate [Lofibra] 160 mg PO DAILY 03/02/15 06/10/18 History Citalopram Hydrobromide [CeleXA] 40 mg PO DAILY #1 tab 03/10/15 06/10/18 Rx Pregabalin [Lyrica] 150 mg PO BID 06/25/15 06/10/18 History Cholecalciferol [Vitamin D3] 2,000 unit PO DAILY 01/15/16 06/10/18 History INSULIN LISPRO (humaLOG) [humaLOG] See Protocol SQ AC-TID 01/15/16 06/10/18 History Insulin Glargine [Lantus] 45 unit SQ DAILY 01/15/16 06/10/18 History Folic Acid 2 mg PO DAILY 03/24/16 06/10/18 History Clopidogrel [Plavix] 75 mg PO HS 07/30/16 06/10/18 History lamoTRIgine 200 mg PO BID 07/30/16 06/10/18 History Albuterol Nebulized [Ventolin 2.5 mg INHALATION RT-Q4H PRN 03/27/17 06/10/18 History Nebulized] Magnesium Gluconate [Magonate] 250 mg PO DAILY 03/27/17 06/10/18 History metFORMIN HCL 1,000 mg PO BID #0 03/29/17 06/10/18 Rx ALPRAZolam [Xanax] 2 mg PO HS 11/26/17 06/10/18 History Aspirin [Adult Low Dose Aspirin EC] 81 mg PO DAILY 11/26/17 06/10/18 History Atorvastatin [Lipitor] 80 mg PO DAILY 11/26/17 06/10/18 History Carvedilol [Coreg*] 12.5 mg PO BID 11/26/17 06/10/18 History Enalapril [Vasotec] 10 mg PO BID 11/26/17 06/10/18 History Nitroglycerin Sl Tabs [Nitrostat] 0.4 mg SUBLINGUAL Q5M PRN 11/26/17 06/10/18 History Varenicline [Chantix Continuing 1 mg PO BID 11/26/17 06/10/18 History Pack] Isosorbide Mononitrate ER [Imdur] 60 mg PO DAILY #30 tab.er.24h 03/25/18 Rx Allergies Allergy/AdvReac Type Severity Reaction Status Date / Time Fish Containing Products Allergy Unknown Verified 06/10/18 21:53 Iodinated Contrast- Oral and Allergy throat Verified 06/10/18 21:53 IV Dye swelling [Iodinated Contrast Media - IV Dye] Sulfa (Sulfonamide Allergy throat Verified 06/10/18 21:53 Antibiotics) swelling sulfamethoxazole Allergy throat Verified 06/10/18 21:53 [From ] swelling trimethoprim [From ] Allergy throat Verified 06/10/18 21:53 swelling NUTS Allergy Unknown Uncoded 06/10/18 21:53 Physical Exam Vitals: Vital Signs Temp Pulse Pulse Resp BP BP Pulse Ox 06/11/18 08:00 69 16 06/11/18 07:53 98.4 F 69 16 170/80 93 L 06/11/18 04:00 16 06/11/18 03:58 98.0 F 65 16 191/96 94 L 06/10/18 23:56 16 06/10/18 23:25 63 16 195/89 97 06/10/18 22:00 16 06/10/18 21:55 98.2 F 65 16 174/97 94 L 06/10/18 20:14 67 16 174/82 92 L 06/10/18 18:46 68 18 187/84 94 L 06/10/18 16:43 97.9 F 74 16 174/91 96 Intake and Output 06/10/18 06/11/18 06/11/18 22:59 06:59 14:59 Intake Total 165 Balance 165 Intake: Intake, IV Titration 165 Amount Heparin Sod,Pork in 0.45% 165 NaCl 25,000 unit In 0.45 % NaCl 1 500ml.bag @ 11. 14 UNITS/KG/HR 20 mls/hr IV .Q24H [facility] Rx#: [id number] Other: Voiding Method Toilet # Voids 1 Weight 89.9 kg Head normocephalic Neck supple Lungs dimished bilaterally Heart regular rate and rhythm S1-S2, no rub or gallop Abdomen is soft nontender nondistended positive bowel sounds no hepatosplenomegaly. Extremities no edema Neuro alert and orientated to 3 Results CBC & Chem 7: 06/11/18 09:09 06/11/18 09:09 Labs: Abnormal Lab Results - Last 24 Hours (Table) 06/10/18 06/10/18 06/11/18 Range/Units 17:00 17:00 04:31 WBC (3.8-10.6) k/uL RBC (3.80-5.40) m/uL Hgb (11.4-16.0) gm/dL Hct (34.0-46.0) % Neutrophils # (1.3-7.7) k/uL APTT 30.5 H (22.0-30.0) sec Sodium 135 L (137-145) mmol/L Glucose 320 H (74-99) mg/dL POC Glucose (mg/dL) (75-99) mg/dL Magnesium 1.4 L (1.6-2.3) mg/dL Alkaline Phosphatase 131 H (38-126) U/L Triglycerides 204 H (<150) mg/dL 06/11/18 06/11/18 06/11/18 Range/Units 04:31 07:21 09:09 WBC 14.8 H (3.8-10.6) k/uL RBC 5.41 H (3.80-5.40) m/uL Hgb 16.7 H (11.4-16.0) gm/dL Hct 49.5 H (34.0-46.0) % Neutrophils # 13.0 H (1.3-7.7) k/uL APTT 37.7 H (22.0-30.0) sec Sodium (137-145) mmol/L Glucose (74-99) mg/dL POC Glucose (mg/dL) 351 H (75-99) mg/dL Magnesium (1.6-2.3) mg/dL Alkaline Phosphatase (38-126) U/L Triglycerides (<150) mg/dL 06/11/18 Range/Units 09:09 WBC (3.8-10.6) k/uL RBC (3.80-5.40) m/uL Hgb (11.4-16.0) gm/dL Hct (34.0-46.0) % Neutrophils # (1.3-7.7) k/uL APTT (22.0-30.0) sec Sodium 136 L (137-145) mmol/L Glucose 384 H (74-99) mg/dL POC Glucose (mg/dL) (75-99) mg/dL Magnesium (1.6-2.3) mg/dL Alkaline Phosphatase (38-126) U/L Triglycerides (<150) mg/dL Thrombosis Risk Factor Assmnt - Choose All That Apply Each Factor Represents 1 point: Age 41-60 years Thrombosis Risk Factor Assessment Total Risk Factor Score: 1 Thrombosis Risk Factor Assessment Level: Low Risk Assessment and Plan Assessment: 1. Chest pain. CTA completed in emergency room showing interstitial pulmonary infiltrates. No evidence of pulmonary embolism. Mild thoracic aortic aneurysm. EKG completed showing normal sinus rhythm. Left axis deviation. Left ventricular hypertrophy with QRS widening. Troponin levels have been negative. Cardiology services have been consulted. 2-D echo has been ordered. 2. History of coronary artery disease 3. History of essential hypertension. Home medication of Imdur, Coreg 4. History of hyperlipidemia. Continue Lipitor and Lofibra 5. History of type 2 diabetes mellitus. Continue Home medication and sliding scale insulin. 11 A1c has been ordered 6. History of CVA. Right-sided residual from previous stroke. Continue Plavix 7. History of depression and anxiety continue Celexa and lyrica 8. History of myocardial infarction. DVT prophylaxis Lovenox. GI prophylaxis Pepcid Time with Patient: Greater than 30 (Greater than 60% of the total time spent in counseling and coordination of care. I have reviewed the Nurse Practitioner's notes and agree with the documented findings and plan of care.)
[2018-06-11 11:59] LABS: Glucose,Whole Blood 451 mg/dL (75-99)
[2018-06-11] MEDS ORDERED: INSULIN ASPART 100 UNIT/ML 1 ML 10 ML VIAL SQ SCH (12:30)
--- NOTE | 2018-06-11 14:01 | ECHOF ---
Referral Reason:cp, assess for effusion MEASUREMENTS -------- HEIGHT: 167.6 cm WEIGHT: 89.8 kg BP: 170/80 IVSd: 1.9 cm (0.6 - 1.1) LVIDd: 4.3 cm (3.9 - 5.3) LVPWd: 1.9 cm (0.6 - 1.1) IVSs: 2.5 cm LVIDs: 2.2 cm LVPWs: 2.2 cm Ao Diam: 4.0 cm (2.0 - 3.7) AV Cusp: 2.6 cm (1.5 - 2.6) LA Diam: 3.6 cm (2.7 - 3.8) MV EXCURSION: 17.701 mm (> 18.000) MV EF SLOPE: 60 mm/s (70 - 150) EPSS: 0.6 cm MV E Cali: 0.90 m/s MV DecT: 233 ms MV A Cali: 0.86 m/s MV E/A Ratio: 1.05 RAP: 5.00 mmHg RVSP: 13.38 mmHg FINDINGS -------- Sinus rhythm. This was a technically difficult study with suboptimal views. The left ventricular size is normal. There is severe concentric left ventricular hypertrophy. Ove rall left ventricular systolic function is normal with, an EF between 60 - 65 %. The right ventricle is normal in size and function. The left atrium is normal in size. The right atrium is normal in size. Lumason used The aortic valve is trileaflet, and appears structurally normal. No aortic stenosis or regurgitation. There is trace mitral regurgitation. Trace tricuspid regurgitation present. The right ventricular systolic pressure, as measured by Dopp ler, is 13.38mmHg. Pulmonic valve appears structurally normal. The aortic root is dilated measuring 4.0 cm The pericardium is normal. CONCLUSIONS -------- 1. Sinus rhythm. 2. This was a technically difficult study with suboptimal views. 3. The left ventricular size is normal. 4. There is severe concentric left ventricular hypertrophy. 5. Overall left ventricular systolic function is normal with, an EF between 60 - 65 %. 6. The right ventricle is normal in size and function. 7. The left atrium is normal in size. 8. The right atrium is normal in size. 9. Lumason used 10. The aortic valve is trileaflet, and appears structurally normal. No aortic stenosis or regurgitat ion. 11. There is trace mitral regurgitation. 12. Trace tricuspid regurgitation present. 13. The right ventricular systolic pressure, as measured by Doppler, is 13.38mmHg. 14. Pulmonic valve appears structurally normal. 15. The aortic root is dilated measuring 4.0 cm 16. The pericardium is normal. MECHANICAL OPERATOR: Griselda Graf RDCS
[2018-06-11 17:29] LABS: Glucose,Whole Blood 468 mg/dL (75-99)
[2018-06-11] MEDS ORDERED: CARVEDILOL 12.5 MG TAB PO SCH (17:30)
[2018-06-11] MEDS ORDERED: INSULIN REGULAR BOLUS (FROM DRIP BAG) IV ONE ×2 (17:35→17:49)
[2018-06-11] MEDS ORDERED: INSULIN REGULAR 100 UNIT in SODIUM CHLORIDE 0.9% 100 ML IV SCH (18:00)
[2018-06-11 19:06] LABS: Glucose,Whole Blood 478 mg/dL (75-99)
[2018-06-11 19:28] VITALS: BP 134/64; PULSE 64; TEMP 97.8
[2018-06-11] MEDS ORDERED: metFORMIN 500 MG TAB PO SCH (21:00)
[2018-06-11] MEDS ORDERED: ALPRAZolam 1 MG TAB PO SCH (21:00)
[2018-06-11] MEDS ORDERED: lamoTRIgine 100 MG TAB PO SCH (21:00)
[2018-06-11] MEDS ORDERED: CLOPIDOGREL 75 MG TAB PO SCH (21:00)
[2018-06-12] MEDS ORDERED: INSULIN ASPART 100 UNIT/ML 1 ML 10 ML VIAL SQ SCH ×2 (07:30)
[2018-06-12] MEDS ORDERED: MAGNESIUM OXIDE 400 MG TAB PO SCH (09:00)
[2018-06-12] MEDS ORDERED: ENOXAPARIN 40 MG/0.4 ML SYRINGE SQ SCH (09:00)
[2018-06-12] MEDS ORDERED: FAMOTIDINE 20 MG TAB PO SCH (09:00)
[2018-06-12] MEDS ORDERED: NON-FORMULARY DRUG (Insulin Glargine 45 UNIT) SQ SCH (09:00)
[2018-06-12] MEDS ORDERED: CHOLECALCIFEROL 1,000 UNIT TAB PO SCH (09:00)
[2018-06-12] MEDS ORDERED: FOLIC ACID 1 MG TAB PO SCH (09:00)
--- NOTE | 2018-06-12 15:20 | P.DS ---
Providers Date of admission: 06/10/18 19:52 Expected date of discharge: 06/11/18 Attending physician: Evin Sanchez Consults: 06/10/18 19:52 Consult Physician Urgent Consulting Provider: Iraida Gusman Consult Reason/Comments: cp Do you want consulting provider notified?: Yes 06/11/18 15:48 Consult Physician Routine Consulting Provider: Jose Figueredo Consult Reason/Comments: Intersitial pulmonary infiltrates Do you want consulting provider notified?: Yes Primary care physician: Dagmar Hennessy Hospital Course: Patient left AGAINST MEDICAL ADVICE Discharge diagnosis 1. Chest pain. CTA completed in emergency room showing interstitial pulmonary infiltrates. No evidence of pulmonary embolism. Mild thoracic aortic aneurysm. EKG completed showing normal sinus rhythm. Left axis deviation. Left ventricular hypertrophy with QRS widening. Troponin levels have been negative. Cardiology services have been consulted. 2-D echo has been ordered. Cardiology services requesting follow-up outpatient 2-3 weeks. Pulmonary services were ordered for further workup from pulmonary standpoint the patient left AGAINST MEDICAL ADVICE before further workup could be completed. 2. History of coronary artery disease 3. History of essential hypertension. Home medication of Imdur, Coreg 4. History of hyperlipidemia. Continue Lipitor and Lofibra 5. History of type 2 diabetes mellitus. Continue Home medication and sliding scale insulin. 11 A1c has been ordered. Blood sugars remained quite elevated. Patient was placed on insulin drip but decided to leave AGAINST MEDICAL ADVICE. 6. History of CVA. Right-sided residual from previous stroke. Continue Plavix 7. History of depression and anxiety continue Celexa and lyrica 8. Nicotine dependence. Counseled patient greater than 3 minutes on smoking cessation. Patient declined any assistance with quitting at this time Hospital course This is a 48-year-old patient of Dr. hennessy. Patient presented to the emergency room with complaints of increased chest pain and fatigue. The known past medical history of chest pain, CVA with right residual, fibromyalgia, hyperlipidemia, hypertension, myocardial infarction, musculoskeletal disorder, sleep apnea, uterine and cervical cancer, diabetes mellitus, anxiety, depression and obesity. Patient does state that she often gets chest pain that seems to correlate with anxiety and that she usually smokes cigarettes but hopes to alleviate her pain. Patient stated that chest pain occurred and she had 2 cigarettes and the pain did not diminish and patient was brought into the hospital by her spouse. The chest completed showing interstitial pulmonary infiltrates. No evidence of pulmonary embolism. Mild thoracic aortic aneurysm. EKG completed showing normal sinus rhythm. Left axis deviation. Left ventricular hypertrophy with QRS widening. Homans negative Cardiology services have been consulted. Denies shortness of breath at this time. Patient does state she still has minimal chest pain. Patient denies nausea vomiting or diarrhea. Denies any urinary symptoms. patient had been cleared for discharge from cardiology standpoint but request for pulmonary consult was requested for further workup. Patient was on an insulin drip due to elevated blood sugars. Patient left AGAINST MEDICAL ADVICE. I performed an examination of the patient and discussed their management with the Nurse Practitioner. I have reviewed the Nurse Practitioner's notes and agree with the documented findings and plan of care Patient Condition at Discharge: Undetermined Plan - Discharge Summary New Discharge Prescriptions: No Action Fenofibrate [Lofibra] 160 mg PO DAILY Citalopram Hydrobromide [CeleXA] 40 mg PO DAILY #1 tab Pregabalin [Lyrica] 150 mg PO BID Insulin Glargine [Lantus] 45 unit SQ DAILY INSULIN LISPRO (humaLOG) [humaLOG] See Protocol SQ AC-TID Cholecalciferol [Vitamin D3] 2,000 unit PO DAILY Folic Acid 2 mg PO DAILY Clopidogrel [Plavix] 75 mg PO HS lamoTRIgine 200 mg PO BID Magnesium Gluconate [Magonate] 250 mg PO DAILY Albuterol Nebulized [Ventolin Nebulized] 2.5 mg INHALATION RT-Q4H PRN PRN Reason: Shortness Of Breath metFORMIN HCL 1,000 mg PO BID #0 Varenicline [Chantix Continuing Pack] 1 mg PO BID Nitroglycerin Sl Tabs [Nitrostat] 0.4 mg SUBLINGUAL Q5M PRN PRN Reason: Chest Pain Enalapril [Vasotec] 10 mg PO BID ALPRAZolam [Xanax] 2 mg PO HS Atorvastatin [Lipitor] 80 mg PO DAILY Carvedilol [Coreg*] 12.5 mg PO BID Aspirin [Adult Low Dose Aspirin EC] 81 mg PO DAILY Isosorbide Mononitrate ER [Imdur] 60 mg PO DAILY #30 tab.er.24h Discharge Medication List Fenofibrate [Lofibra] 160 mg PO DAILY 03/02/15 [History] Citalopram Hydrobromide [CeleXA] 40 mg PO DAILY #1 tab 05/14/15 [Rx] Pregabalin [Lyrica] 150 mg PO BID 06/25/15 [History] Cholecalciferol [Vitamin D3] 2,000 unit PO DAILY 01/15/16 [History] INSULIN LISPRO (humaLOG) [humaLOG] See Protocol SQ AC-TID 01/15/16 [History] Insulin Glargine [Lantus] 45 unit SQ DAILY 01/15/16 [History] Folic Acid 2 mg PO DAILY 03/24/16 [History] Clopidogrel [Plavix] 75 mg PO HS 07/30/16 [History] lamoTRIgine 200 mg PO BID 07/30/16 [History] Albuterol Nebulized [Ventolin Nebulized] 2.5 mg INHALATION RT-Q4H PRN 03/27/17 [ History] Magnesium Gluconate [Magonate] 250 mg PO DAILY 03/27/17 [History] metFORMIN HCL 1,000 mg PO BID #0 03/29/17 [Rx] ALPRAZolam [Xanax] 2 mg PO HS 11/26/17 [History] Aspirin [Adult Low Dose Aspirin EC] 81 mg PO DAILY 11/26/17 [History] Atorvastatin [Lipitor] 80 mg PO DAILY 11/26/17 [History] Carvedilol [Coreg*] 12.5 mg PO BID 11/26/17 [History] Enalapril [Vasotec] 10 mg PO BID 11/26/17 [History] Nitroglycerin Sl Tabs [Nitrostat] 0.4 mg SUBLINGUAL Q5M PRN 11/26/17 [History] Varenicline [Chantix Continuing Pack] 1 mg PO BID 11/26/17 [History] Isosorbide Mononitrate ER [Imdur] 60 mg PO DAILY #30 tab.er.24h 03/25/18 [Rx] Follow up Appointment(s)/Referral(s): Dagmar Hennessy MD [Primary Care Provider] - 1-2 days Curt Jasso MD [STAFF PHYSICIAN] - 07/02/18 3:00 pm Patient Instructions/Handouts: Chest Pain (ED) Discharge Disposition: Left Against Medical Advice
== END 2018-06-11 19:38 | disposition left against medical advice (07) ==
LOC: EC 16:33 → 3OBS 19:52
PROVIDERS: ADMIT Internal Medicine; ATTEND Internal Medicine
DX: R07.89 Other chest pain (principal); R91.8 Other nonspecific abnormal finding of lung field; R07.81 Pleurodynia; E11.65 Type 2 diabetes mellitus with hyperglycemia; I11.9 Hypertensive heart disease without heart failure; I25.10 Atherosclerotic heart disease of native coronary artery without angina pectoris; G35 Multiple sclerosis; I69.351 Hemiplegia and hemiparesis following cerebral infarction affecting right dominant side; I71.2 Thoracic aortic aneurysm, without rupture; M79.7 Fibromyalgia; I25.2 Old myocardial infarction; G47.33 Obstructive sleep apnea (adult) (pediatric); E78.5 Hyperlipidemia, unspecified; G25.81 Restless legs syndrome; F41.9 Anxiety disorder, unspecified; F32.9 Major depressive disorder, single episode, unspecified; F17.210 Nicotine dependence, cigarettes, uncomplicated; E66.9 Obesity, unspecified; Z68.32 Body mass index [BMI] 32.0-32.9, adult; Z99.89 Dependence on other enabling machines and devices; Z95.5 Presence of coronary angioplasty implant and graft; Z79.82 Long term (current) use of aspirin; Z79.899 Other long term (current) drug therapy; Z79.4 Long term (current) use of insulin; Z79.02 Long term (current) use of antithrombotics/antiplatelets; Z88.1 Allergy status to other antibiotic agents; Z91.041 Radiographic dye allergy status; Z91.018 Allergy to other foods; Z88.2 Allergy status to sulfonamides; Z90.49 Acquired absence of other specified parts of digestive tract; Z90.710 Acquired absence of both cervix and uterus; Z85.41 Personal history of malignant neoplasm of cervix uteri; Z82.49 Family history of ischemic heart disease and other diseases of the circulatory system; Z83.3 Family history of diabetes mellitus; Z82.5 Family history of asthma and other chronic lower respiratory diseases; Z80.0 Family history of malignant neoplasm of digestive organs
CPT/HCPCS: 99291 ×2; 96365 ×2; 96375 ×5; 96376 ×2; 96361 ×4; 96366 ×2; 36415; 93005; 85379; 80061; 80053 ×2; 82550 ×2; 82553 ×2; 83690; 83735; 84484 ×2; 85025 ×2; 85049; 85610; 85730 ×2; 71275; G0378 ×2; C8929; J1200; J1644 ×2; J2930; Q9950; Q9967; 93306

== ENCOUNTER 2018-08-02 11:42 | Emergency (ER) | payer OTHER ==
[2018-08-02] MEDS ORDERED: SODIUM CHLORIDE 0.9% 500 ML 500 ML IV ONE (12:02)
--- NOTE | 2018-08-02 12:04 | ED ---
General Adult HPI - General Chief complaint: Neuro Symptoms/Deficit Stated complaint: Chest pain Time Seen by Provider: 08/02/18 11:45 Source: patient, RN notes reviewed Mode of arrival: wheelchair Limitations: no limitations - History of Present Illness Initial comments: This is a 47-year-old female who presents to the emergency department complaining of feeling foggy and tired. Patient states she was fine when she woke up and she was playing games and then she just all of a sudden started feeling foggy. Patient knows where she is who she is and everybody around her she just states she doesn't feel like she is thinking as quickly as normal. Patient denies any headache patient denies any numbness or weakness. Patient denies any blurred vision or slurred speech. Patient denies any lightheadedness or dizziness. Patient denies chest pain difficulty breathing or shortness of breath. Patient denies any abdominal pain patient denies nausea vomiting diarrhea. Patient denies any recent fever chills or cough. Patient is a very poor historian. - Related Data Home Medications Medication Instructions Recorded Confirmed Fenofibrate [Lofibra] 160 mg PO DAILY 03/02/15 08/02/18 Pregabalin [Lyrica] 150 mg PO BID 06/25/15 08/02/18 Cholecalciferol [Vitamin D3] 2,000 unit PO DAILY 01/15/16 08/02/18 INSULIN LISPRO (humaLOG) [humaLOG] See Protocol SQ AC-TID 01/15/16 08/02/18 Insulin Glargine [Lantus] 45 unit SQ DAILY 01/15/16 08/02/18 Folic Acid 2 mg PO DAILY 03/24/16 08/02/18 Clopidogrel [Plavix] 75 mg PO HS 07/30/16 08/02/18 lamoTRIgine 200 mg PO BID 07/30/16 08/02/18 Albuterol Nebulized [Ventolin 2.5 mg INHALATION RT-Q4H PRN 03/27/17 08/02/18 Nebulized] Magnesium Gluconate [Magonate] 250 mg PO DAILY 03/27/17 08/02/18 ALPRAZolam [Xanax] 2 mg PO HS 11/26/17 08/02/18 Aspirin [Adult Low Dose Aspirin EC] 81 mg PO DAILY 11/26/17 08/02/18 Atorvastatin [Lipitor] 80 mg PO DAILY 11/26/17 08/02/18 Carvedilol [Coreg*] 12.5 mg PO BID 11/26/17 08/02/18 Enalapril [Vasotec] 10 mg PO BID 11/26/17 08/02/18 Nitroglycerin Sl Tabs [Nitrostat] 0.4 mg SUBLINGUAL Q5M PRN 11/26/17 08/02/18 Umeclidinium Brm/Vilanterol Tr 2 puff INHALATION RT-BID 08/02/18 08/02/18 [Anoro Ellipta 62.5-25 Mcg INH] Previous Rx's Medication Instructions Recorded Citalopram Hydrobromide [CeleXA] 40 mg PO DAILY #1 tab 03/10/15 metFORMIN HCL 1,000 mg PO BID #0 03/29/17 Isosorbide Mononitrate ER [Imdur] 60 mg PO DAILY #30 tab.er.24h 03/25/18 Allergies Allergy/AdvReac Type Severity Reaction Status Date / Time Fish Containing Products Allergy Unknown Verified 08/02/18 13:36 Iodinated Contrast- Oral and Allergy throat Verified 08/02/18 13:36 IV Dye swelling [Iodinated Contrast Media - IV Dye] Sulfa (Sulfonamide Allergy throat Verified 08/02/18 13:36 Antibiotics) swelling sulfamethoxazole Allergy throat Verified 08/02/18 13:36 [From Septra] swelling trimethoprim [From Junra] Allergy throat Verified 08/02/18 13:36 swelling NUTS Allergy Unknown Uncoded 08/02/18 11:46 Review of Systems ROS Statement: Those systems with pertinent positive or pertinent negative responses have been documented in the HPI. ROS Other: All systems not noted in ROS Statement are negative. 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 andper pt' s spouse- slight foot drag when tired.diabetes mellitus insulin-dependent, hypertension, hyperlipidemia, fibromyalgia, obstructive sleep apnea, MS, questionable hypercoagulable disease, anxiety, depression, obesity, ovarian cyst , MIX5 Last Myocardial Infarction Date:: unk History of Any Multi-Drug Resistant Organisms: None Reported Past Surgical History: Section, Cholecystectomy, Heart Catheterization With Stent, Hysterectomy, Tubal Ligation, Uterine Ablation Additional Past Surgical History / Comment(s): vein stripping right leg, radio frequency ablation of right back-02/22/2015, four stents on 04/03/16 and one on march 05 Past Anesthesia/Blood Transfusion Reactions: Motion Sickness Additional Past Anesthesia/Blood Transfusion Reaction / Comment(s): mild clausterphobia Date of Last Stent Placement:: 2003 Past Psychological History: Anxiety, Depression Smoking Status: Current every day smoker Past Alcohol Use History: None Reported Past Drug Use History: None Reported - Past Family History Father Family Medical History: Congestive Heart Failure (CHF), Coronary Artery Disease (CAD), Diabetes Mellitus Mother Family Medical History: Cancer, Hypertension, Respiratory Disorder Additional Family Medical History / Comment(s): emphysema, colon CA General Exam - General Exam Comments Initial Comments: GENERAL: Patient is well-developed and well-nourished. Patient is nontoxic and well- hydrated and is in no acute distress. ENT: Neck is soft and supple. No significant lymphadenopathy is noted. Oropharynx is clear. Moist mucous membranes. Neck has full range of motion without eliciting any pain. EYES: The sclera were anicteric and conjunctiva were pink and moist. Extraocular movements were intact and pupils were equal round and reactive to light. Eyelids were unremarkable. PULMONARY: Unlabored respirations. Good breath sounds bilaterally. No audible rales rhonchi or wheezing was noted. CARDIOVASCULAR: There is a regular rate and rhythm without any murmurs gallops or rubs. Femoral pulses are equal bilaterally ABDOMEN: Soft and nontender with normal bowel sounds. No palpable organomegaly was noted. There is no palpable pulsatile mass. SKIN: Skin is clear with no lesions or rashes and otherwise unremarkable. NEUROLOGIC: Patient is alert and oriented x3. Cranial nerves II through XII are grossly intact. His right side is slightly weaker and crit and leg raise but patient states this is completely normal for her. Normal speech, volume and content. Symmetrical smile. MUSCULOSKELETAL: Normal extremities with adequate strength and full range of motion. No lower extremity swelling or edema. No calf tenderness. LYMPHATICS: No significant lymphadenopathy is noted PSYCHIATRIC: Normal psychiatric evaluation. Limitations: no limitations Course Vital Signs 08/02/18 08/02/18 11:44 12:30 Temperature 98.0 F Pulse Rate 75 71 Respiratory 20 18 Rate Blood Pressure 129/76 141/68 O2 Sat by Pulse 98 92 L Oximetry Medical Decision Making - Medical Decision Making EKG shows normal sinus rhythm at 73 bpm SC interval 207 2 QRS is 144 QTC is 446 QTC is 491. Patient's EKG shows no ST segment elevation or depression or T wave abnormalities are noted. Patient was in no distress throughout the ED stay. Patient was resting comfortably throughout ED stay. Patient received NovoLog in the emergency department prior to discharge - Lab Data Result diagrams: 08/02/18 12:24 08/02/18 12:24 Lab Results 08/02/18 08/02/18 08/02/18 Range/Units 12:03 12:24 12:24 WBC 9.1 (3.8-10.6) k/uL RBC 4.68 (3.80-5.40) m/uL Hgb 14.7 (11.4-16.0) gm/dL Hct 43.6 (34.0-46.0) % MCV 93.2 (80.0-100.0) fL MCH 31.4 (25.0-35.0) pg MCHC 33.7 (31.0-37.0) g/dL RDW 13.4 (11.5-15.5) % Plt Count 198 (150-450) k/uL Neutrophils % 65 % Lymphocytes % 28 % Monocytes % 4 % Eosinophils % 2 % Basophils % 1 % Neutrophils # 5.9 (1.3-7.7) k/uL Lymphocytes # 2.5 (1.0-4.8) k/uL Monocytes # 0.3 (0-1.0) k/uL Eosinophils # 0.2 (0-0.7) k/uL Basophils # 0.0 (0-0.2) k/uL PT (9.0-12.0) sec INR (<1.2) APTT (22.0-30.0) sec Sodium (137-145) mmol/L Potassium (3.5-5.1) mmol/L Chloride (98-107) mmol/L Carbon Dioxide (22-30) mmol/L Anion Gap mmol/L BUN (7-17) mg/dL Creatinine (0.52-1.04) mg/dL Est GFR (CKD-EPI)AfAm (>60 ml/min/1.73 sqM) Est GFR (CKD-EPI)NonAf (>60 ml/min/1.73 sqM) Glucose (74-99) mg/dL POC Glucose (mg/dL) 417 H (75-99) mg/dL POC Glu Agent Producer ID Salgat, Felicia Calcium (8.4-10.2) mg/dL Total Bilirubin (0.2-1.3) mg/dL AST (14-36) U/L ALT (9-52) U/L Alkaline Phosphatase (38-126) U/L Total Creatine Kinase 29 L (30-135) U/L CK-MB (CK-2) 0.8 (0.0-2.4) ng/mL CK-MB (CK-2) Rel Index 2.8 Troponin I <0.012 (0.000-0.034) ng/mL NT-Pro-B Natriuret Pep pg/mL Total Protein (6.3-8.2) g/dL Albumin (3.5-5.0) g/dL Urine Color Urine Appearance (Clear) Urine pH (5.0-8.0) Ur Specific Woodman (1.001-1.035) Urine Protein (Negative) Urine Glucose (UA) (Negative) Urine Ketones (Negative) Urine Blood (Negative) Urine Nitrite (Negative) Urine Bilirubin (Negative) Urine Urobilinogen (<2.0) mg/dL Ur Leukocyte Esterase (Negative) Urine Opiates Screen (NotDetected) Ur Oxycodone Screen (NotDetected) Urine Methadone Screen (NotDetected) Ur Propoxyphene Screen (NotDetected) Ur Barbiturates Screen (NotDetected) U Tricyclic Antidepress (NotDetected) Ur Phencyclidine Scrn (NotDetected) Ur Amphetamines Screen (NotDetected) U Methamphetamines Scrn (NotDetected) U Benzodiazepines Scrn (NotDetected) Urine Cocaine Screen (NotDetected) U Marijuana (THC) Screen (NotDetected) Acetone, Qual (Negative) 08/02/18 08/02/18 08/02/18 Range/Units 12:24 12:24 12:24 WBC (3.8-10.6) k/uL RBC (3.80-5.40) m/uL Hgb (11.4-16.0) gm/dL Hct (34.0-46.0) % MCV (80.0-100.0) fL MCH (25.0-35.0) pg MCHC (31.0-37.0) g/dL RDW (11.5-15.5) % Plt Count (150-450) k/uL Neutrophils % % Lymphocytes % % Monocytes % % Eosinophils % % Basophils % % Neutrophils # (1.3-7.7) k/uL Lymphocytes # (1.0-4.8) k/uL Monocytes # (0-1.0) k/uL Eosinophils # (0-0.7) k/uL Basophils # (0-0.2) k/uL PT 10.7 (9.0-12.0) sec INR 1.1 (<1.2) APTT 29.0 (22.0-30.0) sec Sodium 134 L (137-145) mmol/L Potassium 4.0 (3.5-5.1) mmol/L Chloride 99 (98-107) mmol/L Carbon Dioxide 23 (22-30) mmol/L Anion Gap 12 mmol/L BUN 15 (7-17) mg/dL Creatinine 0.54 (0.52-1.04) mg/dL Est GFR (CKD-EPI)AfAm >90 (>60 ml/min/1.73 sqM) Est GFR (CKD-EPI)NonAf >90 (>60 ml/min/1.73 sqM) Glucose 433 H (74-99) mg/dL POC Glucose (mg/dL) (75-99) mg/dL POC Glu Agent Producer ID Calcium 9.4 (8.4-10.2) mg/dL Total Bilirubin 0.5 (0.2-1.3) mg/dL AST 17 (14-36) U/L ALT 19 (9-52) U/L Alkaline Phosphatase 116 (38-126) U/L Total Creatine Kinase (30-135) U/L CK-MB (CK-2) (0.0-2.4) ng/mL CK-MB (CK-2) Rel Index Troponin I (0.000-0.034) ng/mL NT-Pro-B Natriuret Pep 62 pg/mL Total Protein 6.2 L (6.3-8.2) g/dL Albumin 3.7 (3.5-5.0) g/dL Urine Color Urine Appearance (Clear) Urine pH (5.0-8.0) Ur Specific Woodman (1.001-1.035) Urine Protein (Negative) Urine Glucose (UA) (Negative) Urine Ketones (Negative) Urine Blood (Negative) Urine Nitrite (Negative) Urine Bilirubin (Negative) Urine Urobilinogen (<2.0) mg/dL Ur Leukocyte Esterase (Negative) Urine Opiates Screen (NotDetected) Ur Oxycodone Screen (NotDetected) Urine Methadone Screen (NotDetected) Ur Propoxyphene Screen (NotDetected) Ur Barbiturates Screen (NotDetected) U Tricyclic Antidepress (NotDetected) Ur Phencyclidine Scrn (NotDetected) Ur Amphetamines Screen (NotDetected) U Methamphetamines Scrn (NotDetected) U Benzodiazepines Scrn (NotDetected) Urine Cocaine Screen (NotDetected) U Marijuana (THC) Screen (NotDetected) Acetone, Qual Negative (Negative) 08/02/18 08/02/18 Range/Units 13:36 14:06 WBC (3.8-10.6) k/uL RBC (3.80-5.40) m/uL Hgb (11.4-16.0) gm/dL Hct (34.0-46.0) % MCV (80.0-100.0) fL MCH (25.0-35.0) pg MCHC (31.0-37.0) g/dL RDW (11.5-15.5) % Plt Count (150-450) k/uL Neutrophils % % Lymphocytes % % Monocytes % % Eosinophils % % Basophils % % Neutrophils # (1.3-7.7) k/uL Lymphocytes # (1.0-4.8) k/uL Monocytes # (0-1.0) k/uL Eosinophils # (0-0.7) k/uL Basophils # (0-0.2) k/uL PT (9.0-12.0) sec INR (<1.2) APTT (22.0-30.0) sec Sodium (137-145) mmol/L Potassium (3.5-5.1) mmol/L Chloride (98-107) mmol/L Carbon Dioxide (22-30) mmol/L Anion Gap mmol/L BUN (7-17) mg/dL Creatinine (0.52-1.04) mg/dL Est GFR (CKD-EPI)AfAm (>60 ml/min/1.73 sqM) Est GFR (CKD-EPI)NonAf (>60 ml/min/1.73 sqM) Glucose (74-99) mg/dL POC Glucose (mg/dL) 389 H (75-99) mg/dL POC Glu Agent Producer ID January Calcium (8.4-10.2) mg/dL Total Bilirubin (0.2-1.3) mg/dL AST (14-36) U/L ALT (9-52) U/L Alkaline Phosphatase (38-126) U/L Total Creatine Kinase (30-135) U/L CK-MB (CK-2) (0.0-2.4) ng/mL CK-MB (CK-2) Rel Index Troponin I (0.000-0.034) ng/mL NT-Pro-B Natriuret Pep pg/mL Total Protein (6.3-8.2) g/dL Albumin (3.5-5.0) g/dL Urine Color Yellow Urine Appearance Clear (Clear) Urine pH 5.5 (5.0-8.0) Ur Specific Woodman 1.028 (1.001-1.035) Urine Protein Trace H (Negative) Urine Glucose (UA) 4+ H (Negative) Urine Ketones Negative (Negative) Urine Blood Negative (Negative) Urine Nitrite Negative (Negative) Urine Bilirubin Negative (Negative) Urine Urobilinogen <2.0 (<2.0) mg/dL Ur Leukocyte Esterase Negative (Negative) Urine Opiates Screen Detected H (NotDetected) Ur Oxycodone Screen Not Detected (NotDetected) Urine Methadone Screen Not Detected (NotDetected) Ur Propoxyphene Screen Not Detected (NotDetected) Ur Barbiturates Screen Not Detected (NotDetected) U Tricyclic Antidepress Not Detected (NotDetected) Ur Phencyclidine Scrn Not Detected (NotDetected) Ur Amphetamines Screen Not Detected (NotDetected) U Methamphetamines Scrn Not Detected (NotDetected) U Benzodiazepines Scrn Detected H (NotDetected) Urine Cocaine Screen Not Detected (NotDetected) U Marijuana (THC) Screen Not Detected (NotDetected) Acetone, Qual (Negative) Disposition Clinical Impression: Fatigue, Hyperglycemia Disposition: HOME SELF-CARE Instructions: Fatigue (ED), Diabetic Hyperglycemia (ED) Is patient prescribed a controlled substance at d/c from ED?: No Referrals: Dagmar Hennessy MD [Primary Care Provider] - 1-2 days Time of Disposition: 15:18
[2018-08-02 12:14] LABS: Glucose,Whole Blood 417 mg/dL (75-99)
[2018-08-02 12:31] VITALS: RESP 18
[2018-08-02 12:39] LABS: Basophils % (A) 1 %; Eosinophils # (A) 0.2 k/uL (0-0.7); Eosinophils % (A) 2 %; HCT 43.6 % (34.0-46.0); HGB 14.7 gm/dL (11.4-16.0); Lymphocytes # (A) 2.5 k/uL (1.0-4.8); Lymphocytes % (A) 28 %; MCH 31.4 pg (25.0-35.0); MCHC 33.7 g/dL (31.0-37.0); MCV 93.2 fL (80.0-100.0); Mean Platelet Volume 8.1; Monocytes # (A) 0.3 k/uL (0-1.0); Monocytes % (A) 4 %; Neutrophils # (A) 5.9 k/uL (1.3-7.7); Neutrophils % (A) 65 %; Platelet Count 198 k/uL (150-450); RBC 4.68 m/uL (3.80-5.40); RDW 13.4 % (11.5-15.5); WBC 9.1 k/uL (3.8-10.6)
[2018-08-02 12:46] LABS: INR 1.1 (<1.2); Prothrombin Time 10.7 sec (9.0-12.0)
--- NOTE | 2018-08-02 13:06 | XR ---
EXAMINATION TYPE: XR chest 2V DATE OF EXAM: 08/02/2018 HISTORY: altered mental status. REFERENCE: Previous study dated 03/25/2018. FINDINGS: The heart is not enlarged. There is mild vascular congestion and mild interstitial change. Pleural spaces are clear. IMPRESSION: I CANNOT EXCLUDE SOME EARLY HEART FAILURE.
[2018-08-02 13:08] LABS: ALT 19 U/L (9-52); AST 17 U/L (14-36); Albumin 3.7 g/dL (3.5-5.0); Alkaline Phosphatase 116 U/L (38-126); Anion Gap 12 mmol/L; Blood Urea Nitrogen 15 mg/dL (7-17); Calcium 9.4 mg/dL (8.4-10.2); Carbon Dioxide 23 mmol/L (22-30); Chloride 99 mmol/L (98-107); Glucose 433 mg/dL (74-99); Sodium 134 mmol/L (137-145); Total Bilirubin 0.5 mg/dL (0.2-1.3); Total Protein 6.2 g/dL (6.3-8.2)
[2018-08-02 13:28] LABS: Creatine Kinase 29 U/L (30-135)
[2018-08-02 13:40] LABS: Creatine Kinase MB 0.8 ng/mL (0.0-2.4); Troponin I <0.012 ng/mL (0.000-0.034)
[2018-08-02] MEDS ORDERED: INSULIN ASPART 100 UNIT/ML 1 ML 10 ML VIAL SQ ONE (13:45)
[2018-08-02 13:52] LABS: Glucose,Whole Blood 389 mg/dL (75-99)
[2018-08-02 14:27] LABS: Appearance,Urine Clear (Clear); Bilirubin,Urine Negative (Negative); Blood,Urine Negative (Negative); Color,Urine Yellow; Glucose,Urine (UA) 4+ (Negative); Ketones,Urine Negative (Negative); Leukocyte Esterase,Urine Negative (Negative); Nitrite,Urine Negative (Negative); PH, Urine 5.5 (5.0-8.0); Protein,Urine Trace (Negative); Specific Gravity,Urine 1.028 (1.001-1.035); Urobilinogen,Urine <2.0 mg/dL (<2.0)
[2018-08-02 14:36] LABS: Amphetamine Screen,Urine Not Detected (NotDetected); Barbiturate Screen,Urine Not Detected (NotDetected); Benzodiazepines Screen,Urine Detected (NotDetected); Cocaine Screen,Urine Not Detected (NotDetected); Methadone Screen, Urine Not Detected (NotDetected); Opiate Screen,Urine Detected (NotDetected); Oxycodone Screen, Urine Not Detected (NotDetected); Phencyclidine Screen,Urine Not Detected (NotDetected); Tricyclic Antidepressant,Urine Not Detected (NotDetected); Urn Cannabinoid Scrn Not Detected (NotDetected)
[2018-08-02 15:19] LABS: Glucose,Whole Blood 385 mg/dL (75-99)
[2018-08-02 16:21] VITALS: BP 175/89; PULSE 68; TEMP 97.5
== END 2018-08-02 16:21 | disposition home or self-care (01) ==
LOC: EC 11:42
DX: E11.65 Type 2 diabetes mellitus with hyperglycemia (principal); E78.5 Hyperlipidemia, unspecified; I10 Essential (primary) hypertension; I25.10 Atherosclerotic heart disease of native coronary artery without angina pectoris; I69.351 Hemiplegia and hemiparesis following cerebral infarction affecting right dominant side; M79.7 Fibromyalgia; G47.33 Obstructive sleep apnea (adult) (pediatric); F32.9 Major depressive disorder, single episode, unspecified; F41.9 Anxiety disorder, unspecified; I25.2 Old myocardial infarction; F17.200 Nicotine dependence, unspecified, uncomplicated; Z88.2 Allergy status to sulfonamides; Z91.013 Allergy to seafood; Z91.018 Allergy to other foods; Z91.041 Radiographic dye allergy status; Z79.02 Long term (current) use of antithrombotics/antiplatelets; Z79.4 Long term (current) use of insulin; Z79.82 Long term (current) use of aspirin; Z79.899 Other long term (current) drug therapy; Z99.89 Dependence on other enabling machines and devices; Z95.5 Presence of coronary angioplasty implant and graft; Z83.3 Family history of diabetes mellitus; Z85.41 Personal history of malignant neoplasm of cervix uteri; Z90.710 Acquired absence of both cervix and uterus
CPT/HCPCS: 36415; 71046; 80053; 80306; 81003; 82009; 82550; 82553; 83880; 84484; 85025; 85610; 85730; 93005; 99285

== ENCOUNTER 2018-08-25 19:44 | Emergency (ER) | payer OTHER ==
[2018-08-25 19:49] VITALS: TEMP 98.2
[2018-08-25] MEDS ORDERED: SODIUM CHLORIDE 0.9% 1,000 ML IV STA ×2 (20:10)
[2018-08-25] MEDS ORDERED: IPRATROPIUM-ALBUTEROL 3 ML NEB INHALATION STA (20:10)
--- NOTE | 2018-08-25 20:12 | ED ---
SOB HPI - General Chief Complaint: Shortness of Breath Stated Complaint: SOB/Chest tightness Time Seen by Provider: 08/25/18 20:01 Source: patient, RN notes reviewed, old records reviewed Mode of arrival: wheelchair Limitations: no limitations - History of Present Illness Initial Comments: 48-year-old female presents emergency department today with chief complaint of shortness of breath for the past 2 days and complains of chest tightness heaviness for the past 2 days. Patient reports that she had an outpatient CT of her chest scheduled for tomorrow due to abdominal wall finding when she was last year. Patient has been admitted multiple times for chest pain within seen multiple times past few months for this. She does report that she is coughing. She's been using an inhaler. She denies any abdominal pain nausea or vomiting. - Related Data Home Medications Medication Instructions Recorded Confirmed Fenofibrate [Lofibra] 160 mg PO DAILY 03/02/15 08/25/18 Pregabalin [Lyrica] 150 mg PO BID 06/25/15 08/25/18 Cholecalciferol [Vitamin D3] 2,000 unit PO DAILY 01/15/16 08/25/18 INSULIN LISPRO (humaLOG) [humaLOG] See Protocol SQ AC-TID 01/15/16 08/25/18 Insulin Glargine [Lantus] 45 unit SQ DAILY 01/15/16 08/25/18 Folic Acid 2 mg PO DAILY 03/24/16 08/25/18 Clopidogrel [Plavix] 75 mg PO HS 07/30/16 08/25/18 lamoTRIgine 200 mg PO BID 07/30/16 08/25/18 Albuterol Nebulized [Ventolin 2.5 mg INHALATION RT-Q4H PRN 03/27/17 08/25/18 Nebulized] Magnesium Gluconate [Magonate] 250 mg PO DAILY 03/27/17 08/25/18 ALPRAZolam [Xanax] 2 mg PO HS 11/26/17 08/25/18 Aspirin [Adult Low Dose Aspirin EC] 81 mg PO DAILY 11/26/17 08/25/18 Atorvastatin [Lipitor] 80 mg PO DAILY 11/26/17 08/25/18 Carvedilol [Coreg*] 12.5 mg PO BID 11/26/17 08/25/18 Enalapril [Vasotec] 10 mg PO BID 11/26/17 08/25/18 Nitroglycerin Sl Tabs [Nitrostat] 0.4 mg SUBLINGUAL Q5M PRN 11/26/17 08/25/18 Umeclidinium Brm/Vilanterol Tr 2 puff INHALATION RT-BID 08/02/18 08/25/18 [Anoro Ellipta 62.5-25 Mcg INH] B Complex-Vit C-Vit E-Zinc [Z-Bec] 1 tab PO DAILY 08/25/18 08/25/18 DULoxetine HCL [Cymbalta] 60 mg PO DAILY 08/25/18 08/25/18 INSULIN LISPRO (humaLOG) [humaLOG] 5 unit SQ HS 08/25/18 08/25/18 INSULIN LISPRO (humaLOG) [humaLOG] 11 unit SQ AC-BRKFST 08/25/18 08/25/18 INSULIN LISPRO (humaLOG) [humaLOG] 22 unit SQ AC-LUNCH 08/25/18 08/25/18 INSULIN LISPRO (humaLOG) [humaLOG] 25 unit SQ AC-SUPPER 08/25/18 08/25/18 Previous Rx's Medication Instructions Recorded Citalopram Hydrobromide [CeleXA] 40 mg PO DAILY #1 tab 03/10/15 metFORMIN HCL 1,000 mg PO BID #0 03/29/17 predniSONE 10 mg PO DAILY #15 tab 08/25/18 Allergies Allergy/AdvReac Type Severity Reaction Status Date / Time Fish Containing Products Allergy Unknown Verified 08/25/18 20:25 Iodinated Contrast- Oral and Allergy throat Verified 08/25/18 20:25 IV Dye swelling [Iodinated Contrast Media - IV Dye] Sulfa (Sulfonamide Allergy throat Verified 08/25/18 20:25 Antibiotics) swelling sulfamethoxazole Allergy throat Verified 08/25/18 20:25 [From Septra] swelling trimethoprim [From Junra] Allergy throat Verified 08/25/18 20:25 swelling NUTS Allergy Unknown Uncoded 08/25/18 19:49 Review of Systems ROS Statement: Those systems with pertinent positive or pertinent negative responses have been documented in the HPI. ROS Other: All systems not noted in ROS Statement are negative. 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 andper pt' s spouse- slight foot drag when tired.diabetes mellitus insulin-dependent, hypertension, hyperlipidemia, fibromyalgia, obstructive sleep apnea, MS, questionable hypercoagulable disease, anxiety, depression, obesity, ovarian cyst , MIX5 Last Myocardial Infarction Date:: unk History of Any Multi-Drug Resistant Organisms: None Reported Past Surgical History: Section, Cholecystectomy, Heart Catheterization With Stent, Hysterectomy, Tubal Ligation, Uterine Ablation Additional Past Surgical History / Comment(s): vein stripping right leg, radio frequency ablation of right back-02/22/2015, four stents on 04/03/16 and one on march 05 Past Anesthesia/Blood Transfusion Reactions: Motion Sickness Additional Past Anesthesia/Blood Transfusion Reaction / Comment(s): mild clausterphobia Date of Last Stent Placement:: 2003 Past Psychological History: Anxiety, Depression Smoking Status: Former smoker Past Alcohol Use History: None Reported Past Drug Use History: None Reported - Past Family History Father Family Medical History: Congestive Heart Failure (CHF), Coronary Artery Disease (CAD), Diabetes Mellitus Mother Family Medical History: Cancer, Hypertension, Respiratory Disorder Additional Family Medical History / Comment(s): emphysema, colon CA General Exam - General Exam Comments Initial Comments: 48-year-old female. Alert and oriented 3. Patient appears in no acute distress. Limitations: no limitations General appearance: alert Head exam: Present: atraumatic Eye exam: Present: normal appearance, PERRL, EOMI. Absent: scleral icterus, conjunctival injection, periorbital swelling ENT exam: Present: normal exam, mucous membranes moist Neck exam: Present: normal inspection. Absent: tenderness, meningismus, lymphadenopathy Respiratory exam: Present: wheezes. Absent: normal lung sounds bilaterally, respiratory distress, rales, rhonchi, stridor Cardiovascular Exam: Present: regular rate, normal rhythm, normal heart sounds. Absent: systolic murmur, diastolic murmur, rubs, gallop, clicks GI/Abdominal exam: Present: soft Extremities exam: Present: normal inspection, full ROM, normal capillary refill. Absent: tenderness, pedal edema, joint swelling, calf tenderness Back exam: Present: normal inspection Neurological exam: Present: alert, oriented X3, CN II-XII intact Psychiatric exam: Present: normal affect, normal mood Skin exam: Present: warm, dry, intact, normal color. Absent: rash Course Vital Signs 08/25/18 08/25/18 08/25/18 19:46 20:42 20:49 Temperature 98.2 F Pulse Rate 72 62 52 L Respiratory 18 14 14 Rate Blood Pressure 142/88 O2 Sat by Pulse 99 Oximetry Medical Decision Making - Medical Decision Making Patient is a 48-year-old female who presents the emergency department today with chief complaint of shortness of breath and chest discomfort for the past 2 days. She has history of COPD. She reports she is scheduled to have an outpatient CAT scan tomorrow but was unable to make it. She didn't get it done today. Patient reports that she has had a cough. She has been doing a lot of work around her house lately and exposed to dust and pains. Patient did have some wheezing on exam. Given DuoNeb treatment. At this time patient's labwork was reviewed and unremarkable. EKG shows no significant change at this time. Chest x-ray was clear. She is have her outpatient CT with contrast today which was clearing of the previous infiltrate. There is evidence of chronic interstitial lung disease noted. Patient is likely having a acute COPD exacerbation. We'll do a short burst of steroids and continuing her at-home inhalers. Discussed following up with pulmonology. She also relates that some of her chest pain is likely related to anxiety. I discussed with 2 days of pain and normal troponin and no significant changes in EKG and not concerned for cardiac origin at this time. Patient agrees to treatment plan will comply. Return parameters were discussed. - Lab Data Result diagrams: 08/25/18 20:29 08/25/18 20:29 Lab Results 08/25/18 08/25/18 08/25/18 Range/Units 20: 20: 20:29 WBC 9.7 (3.8-10.6) k/uL RBC 5.11 (3.80-5.40) m/uL Hgb 15.9 (11.4-16.0) gm/dL Hct 47.5 H (34.0-46.0) % MCV 93.1 (80.0-100.0) fL MCH 31.2 (25.0-35.0) pg MCHC 33.5 (31.0-37.0) g/dL RDW 13.1 (11.5-15.5) % Plt Count 213 (150-450) k/uL Neutrophils % 64 % Lymphocytes % 30 % Monocytes % 3 % Eosinophils % 1 % Basophils % 1 % Neutrophils # 6.3 (1.3-7.7) k/uL Lymphocytes # 2.9 (1.0-4.8) k/uL Monocytes # 0.3 (0-1.0) k/uL Eosinophils # 0.1 (0-0.7) k/uL Basophils # 0.1 (0-0.2) k/uL PT (9.0-12.0) sec INR (<1.2) APTT (22.0-30.0) sec Sodium 136 L (137-145) mmol/L Potassium 4.5 (3.5-5.1) mmol/L Chloride 102 (98-107) mmol/L Carbon Dioxide 23 (22-30) mmol/L Anion Gap 11 mmol/L BUN 15 (7-17) mg/dL Creatinine 0.69 (0.52-1.04) mg/dL Est GFR (CKD-EPI)AfAm >90 (>60 ml/min/1.73 sqM) Est GFR (CKD-EPI)NonAf >90 (>60 ml/min/1.73 sqM) Glucose 380 H (74-99) mg/dL Calcium 10.0 (8.4-10.2) mg/dL Total Bilirubin 0.5 (0.2-1.3) mg/dL AST 20 (14-36) U/L ALT 21 (9-52) U/L Alkaline Phosphatase 127 H (38-126) U/L Total Creatine Kinase 41 (30-135) U/L CK-MB (CK-2) 0.9 (0.0-2.4) ng/mL CK-MB (CK-2) Rel Index 2.2 Troponin I <0.012 (0.000-0.034) ng/mL Total Protein 7.1 (6.3-8.2) g/dL Albumin 4.3 (3.5-5.0) g/dL 08/25/18 Range/Units 20:29 WBC (3.8-10.6) k/uL RBC (3.80-5.40) m/uL Hgb (11.4-16.0) gm/dL Hct (34.0-46.0) % MCV (80.0-100.0) fL MCH (25.0-35.0) pg MCHC (31.0-37.0) g/dL RDW (11.5-15.5) % Plt Count (150-450) k/uL Neutrophils % % Lymphocytes % % Monocytes % % Eosinophils % % Basophils % % Neutrophils # (1.3-7.7) k/uL Lymphocytes # (1.0-4.8) k/uL Monocytes # (0-1.0) k/uL Eosinophils # (0-0.7) k/uL Basophils # (0-0.2) k/uL PT 11.1 (9.0-12.0) sec INR 1.2 H (<1.2) APTT 30.7 H (22.0-30.0) sec Sodium (137-145) mmol/L Potassium (3.5-5.1) mmol/L Chloride (98-107) mmol/L Carbon Dioxide (22-30) mmol/L Anion Gap mmol/L BUN (7-17) mg/dL Creatinine (0.52-1.04) mg/dL Est GFR (CKD-EPI)AfAm (>60 ml/min/1.73 sqM) Est GFR (CKD-EPI)NonAf (>60 ml/min/1.73 sqM) Glucose (74-99) mg/dL Calcium (8.4-10.2) mg/dL Total Bilirubin (0.2-1.3) mg/dL AST (14-36) U/L ALT (9-52) U/L Alkaline Phosphatase (38-126) U/L Total Creatine Kinase (30-135) U/L CK-MB (CK-2) (0.0-2.4) ng/mL CK-MB (CK-2) Rel Index Troponin I (0.000-0.034) ng/mL Total Protein (6.3-8.2) g/dL Albumin (3.5-5.0) g/dL 08/25/18 22:59 EKG shows normal sinus rhythm left axis deviation left bundle branch block. Abnormal EKG noted. Ventricular rate of 66 bpm. LA interval is 162 ms. QRS duration 144 ms. QT QTc is 440/461 ms. - Radiology Data Radiology results: report reviewed Minimal interstitial density at the left lung base. Pulmonary infiltrates are mostly cleared compared old exam. Disposition Clinical Impression: COPD exacerbation Disposition: HOME SELF-CARE Condition: Stable Instructions: Bronchiectasis in Children (ED) Additional Instructions: Patient advised to rest, increase fluid intake. Follow-up with primary care provider. Return to emergency department if any alarming signs or symptoms occur. Prescriptions: predniSONE 10 mg PO DAILY #15 tab Is patient prescribed a controlled substance at d/c from ED?: No Referrals: Dagmar Hennessy MD [Primary Care Provider] - 1-2 days Time of Disposition: 23:02
[2018-08-25 20:45] LABS: Basophils # (A) 0.1 k/uL (0-0.2); Basophils % (A) 1 %; Eosinophils # (A) 0.1 k/uL (0-0.7); Eosinophils % (A) 1 %; HCT 47.5 % (34.0-46.0); HGB 15.9 gm/dL (11.4-16.0); Lymphocytes # (A) 2.9 k/uL (1.0-4.8); Lymphocytes % (A) 30 %; MCH 31.2 pg (25.0-35.0); MCHC 33.5 g/dL (31.0-37.0); MCV 93.1 fL (80.0-100.0); Mean Platelet Volume 7.4; Monocytes # (A) 0.3 k/uL (0-1.0); Monocytes % (A) 3 %; Neutrophils # (A) 6.3 k/uL (1.3-7.7); Neutrophils % (A) 64 %; Platelet Count 213 k/uL (150-450); RBC 5.11 m/uL (3.80-5.40); RDW 13.1 % (11.5-15.5); WBC 9.7 k/uL (3.8-10.6)
[2018-08-25 20:54] LABS: INR 1.2 (<1.2); Partial Thromboplastin Time 30.7 sec (22.0-30.0); Prothrombin Time 11.1 sec (9.0-12.0)
[2018-08-25 20:56] LABS: ALT 21 U/L (9-52); AST 20 U/L (14-36); Albumin 4.3 g/dL (3.5-5.0); Alkaline Phosphatase 127 U/L (38-126); Anion Gap 11 mmol/L; Blood Urea Nitrogen 15 mg/dL (7-17); Carbon Dioxide 23 mmol/L (22-30); Chloride 102 mmol/L (98-107); Glucose 380 mg/dL (74-99); Potassium 4.5 mmol/L (3.5-5.1); Sodium 136 mmol/L (137-145); Total Bilirubin 0.5 mg/dL (0.2-1.3); Total Protein 7.1 g/dL (6.3-8.2)
[2018-08-25 21:13] LABS: Creatine Kinase 41 U/L (30-135)
[2018-08-25 21:26] LABS: Creatine Kinase MB 0.9 ng/mL (0.0-2.4); Troponin I <0.012 ng/mL (0.000-0.034)
--- NOTE | 2018-08-25 21:27 | XR ---
EXAMINATION: XR chest 2V DATE AND TIME: 08/25/2018 9:03 PM CLINICAL INDICATION: difficulty breathing TECHNIQUE: PA and lateral COMPARISON: 08/02/2018 FINDINGS: The lungs are clear. The pleural spaces are negative. The cardiac silhouette is not enlarged. The remainder of the mediastinal silhouette is unremarkable. The skeletal structures and soft tissues are negative for acute findings. IMPRESSION: NO ACUTE PROCESS.
--- NOTE | 2018-08-25 22:37 | CT ---
EXAMINATION TYPE: CT chest wo con DATE OF EXAM: 08/25/2018 COMPARISON: 06/10/2018 HISTORY: Short of breath and chest pain CT DLP: mGycm. Automated Exposure Control for Dose Reduction was Utilized. TECHNIQUE: CT scan of the thorax is performed without IV contrast. FINDINGS: There is minimal groundglass interstitial density in the left lung base. The other lung li are cl ear. Heart size is normal. There is apparent coronary artery calcification. Correlate for stents. The re is no pericardial effusion. There are no hilar masses. There is no mediastinal adenopathy. There i s no evidence of thoracic aortic aneurysm. There is no pleural effusion. There are some spondylotic c hanges in the thoracic spine. IMPRESSION: Minimal interstitial density at the left lung base. Pulmonary infiltrates are mostly diana red compared to old exam.
[2018-08-25 23:07] VITALS: BP 191/88; PULSE 65; RESP 18
== END 2018-08-25 23:18 | disposition home or self-care (01) ==
LOC: EC 19:44
DX: J44.1 Chronic obstructive pulmonary disease with (acute) exacerbation (principal); E11.9 Type 2 diabetes mellitus without complications; M79.7 Fibromyalgia; E78.5 Hyperlipidemia, unspecified; I10 Essential (primary) hypertension; I25.2 Old myocardial infarction; G25.81 Restless legs syndrome; I25.10 Atherosclerotic heart disease of native coronary artery without angina pectoris; F41.9 Anxiety disorder, unspecified; F32.9 Major depressive disorder, single episode, unspecified; G47.33 Obstructive sleep apnea (adult) (pediatric); Z99.89 Dependence on other enabling machines and devices; Z86.73 Personal history of transient ischemic attack (TIA), and cerebral infarction without residual deficits; Z85.42 Personal history of malignant neoplasm of other parts of uterus; Z85.41 Personal history of malignant neoplasm of cervix uteri; Z95.5 Presence of coronary angioplasty implant and graft; Z87.891 Personal history of nicotine dependence; Z82.49 Family history of ischemic heart disease and other diseases of the circulatory system; Z79.4 Long term (current) use of insulin; Z79.02 Long term (current) use of antithrombotics/antiplatelets; Z79.82 Long term (current) use of aspirin; Z79.899 Other long term (current) drug therapy; Z91.013 Allergy to seafood; Z91.041 Radiographic dye allergy status; Z88.2 Allergy status to sulfonamides; Z91.018 Allergy to other foods
CPT/HCPCS: 36415; 71046; 71250; 80053; 82550; 82553; 84484; 85025; 85610; 85730; 93005; 94640; 96360; 96361; 99285

== ENCOUNTER → 2018-09-05 | Outpatient (CLI) | payer OTHER | LOC: LABPAT 11:28 | PROVIDERS: ATTEND Psychiatry & Neurology Pain Medicine | DX: Z01.818 Encounter for other preprocedural examination (principal) | CPT/HCPCS: 93005 ==

== ENCOUNTER → 2018-10-08 | Outpatient (CLI) | payer OTHER | END | disposition home or self-care (01) | LOC: LABWHC1 12:45 | PROVIDERS: ATTEND Family Medicine | DX: E11.40 Type 2 diabetes mellitus with diabetic neuropathy, unspecified (principal) | CPT/HCPCS: 36415; 84681 ==

== ENCOUNTER → 2018-11-18 | Outpatient (CLI) | payer OTHER ==
--- NOTE | 2018-11-22 09:31 | MM ---
Reason for exam: screening (asymptomatic). Last mammogram was performed 1 year and 1 month ago. History: Patient has history of endometrial cancer at age 37. Family history of breast cancer in paternal grandmother. Took hormonal contraceptives for 7 years. MG Screening Mammo w CAD Bilateral CC and MLO view(s) were taken. Prior study comparison: October 25, 2017, bilateral MG screening mammo w CAD. December 15, 2014, bilateral MG screening mammo w CAD. The breast tissue is heterogeneously dense. This may lower the sensitivity of mammography. Stable benign calcifications. No discrete abnormality. No significant changes when compared with prior studies. ASSESSMENT: Benign, BI-RAD 2 RECOMMENDATION: Routine screening mammogram of both breasts in 1 year.
== END ==
LOC: RADMAMWWP 13:06
PROVIDERS: ATTEND Family Medicine
DX: Z12.31 Encounter for screening mammogram for malignant neoplasm of breast (principal)
CPT/HCPCS: 77067

== ENCOUNTER 2018-12-28 02:12 | Emergency (ER) | payer OTHER ==
[2018-12-28] MEDS ORDERED: SODIUM CHLORIDE 0.9% 1,000 ML IV STA (02:25)
[2018-12-28 02:56] LABS: Basophils # (A) 0.1 k/uL (0-0.2); Basophils % (A) 1 %; Eosinophils # (A) 0.2 k/uL (0-0.7); Eosinophils % (A) 2 %; HCT 47.8 % (34.0-46.0); HGB 15.9 gm/dL (11.4-16.0); Lymphocytes # (A) 3.4 k/uL (1.0-4.8); Lymphocytes % (A) 28 %; MCH 31.3 pg (25.0-35.0); MCHC 33.2 g/dL (31.0-37.0); MCV 94.1 fL (80.0-100.0); Mean Platelet Volume 7.1; Monocytes # (A) 0.6 k/uL (0-1.0); Monocytes % (A) 5 %; Neutrophils # (A) 7.8 k/uL (1.3-7.7); Neutrophils % (A) 64 %; Platelet Count 243 k/uL (150-450); RBC 5.08 m/uL (3.80-5.40); RDW 13.4 % (11.5-15.5); WBC 12.1 k/uL (3.8-10.6)
[2018-12-28 02:58] LABS: ALT 27 U/L (9-52); AST 14 U/L (14-36); Albumin 4.4 g/dL (3.5-5.0); Alkaline Phosphatase 129 U/L (38-126); Amylase 53 U/L (30-110); Anion Gap 16 mmol/L; Blood Urea Nitrogen 16 mg/dL (7-17); Calcium 10.6 mg/dL (8.4-10.2); Carbon Dioxide 23 mmol/L (22-30); Chloride 98 mmol/L (98-107); Glucose 496 mg/dL (74-99); Lipase 365 U/L (23-300); Potassium 4.3 mmol/L (3.5-5.1); Sodium 137 mmol/L (137-145); Total Bilirubin 0.6 mg/dL (0.2-1.3); Total Protein 7.2 g/dL (6.3-8.2)
--- NOTE | 2018-12-28 02:58 | XR ---
EXAM: XR Abdomen, 1 View CLINICAL HISTORY: ITS.REASON XR Reason: abdominal pain TECHNIQUE: Frontal supine view of the abdomen/pelvis. COMPARISON: No relevant prior studies available. FINDINGS: Gastrointestinal tract: Unremarkable. No dilation. Bones/joints: No acute fracture. No dislocation. IMPRESSION: No acute findings.
[2018-12-28 03:03] LABS: Appearance,Urine Clear (Clear); Bacteria,Urine Rare /hpf; Bilirubin,Urine Negative (Negative); Blood,Urine Trace (Negative); Color,Urine Light Yellow; Glucose,Urine (UA) 4+ (Negative); Ketones,Urine Negative (Negative); Leukocyte Esterase,Urine Negative (Negative); Nitrite,Urine Negative (Negative); PH, Urine 6.5 (5.0-8.0); Protein,Urine 1+ (Negative); RBC,Urine 1 /hpf (0-5); Specific Gravity,Urine 1.023 (1.001-1.035); Squamous Epithelial Cell,Urine <1 /hpf (0-4); Urobilinogen,Urine <2.0 mg/dL (<2.0)
[2018-12-28] MEDS ORDERED: INSULIN REGULAR 100 UNIT/ML VIAL SQ ONE (03:16)
[2018-12-28] MEDS ORDERED: SODIUM CHLORIDE 0.9% 1,000 ML IV ONE (03:17)
--- NOTE | 2018-12-28 03:17 | ED ---
Abdominal Pain HPI - General Chief Complaint: Abdominal Pain Stated Complaint: ABD PAIN Time Seen by Provider: 12/28/18 02:25 Source: patient, family Mode of arrival: ambulatory Limitations: no limitations - History of Present Illness Initial Comments: Leticia is a 48-year-old female with extensive past medical history most significant for poorly controlled diabetes and chronic constipation. Patient presents the emergency department this morning for evaluation of abdominal pain , constipation. Patient reports that for the past week she's had intermittent epigastric abdominal pain and fullness. She reports she's had decreased appetite. She reports she has not had a good bowel movement and number of days. She states that she is on a stool softener but despite being compliant with this medication she is continued to have persistent constipation. Patient denies any history of pancreatitis she denies any alcohol use she does not have gallbladder placed. She denies any associated fevers, chills, nausea, vomiting, chest pain or palpitations. Patient states that because she was not feeling well she ate this evening she has not taken her [place] insulin. - Related Data Home Medications Medication Instructions Recorded Confirmed Fenofibrate [Lofibra] 160 mg PO DAILY 03/02/15 09/08/18 Pregabalin [Lyrica] 150 mg PO BID 06/25/15 09/08/18 Cholecalciferol [Vitamin D3] 5,000 unit PO DAILY 01/15/16 09/08/18 Folic Acid 2 mg PO DAILY 03/24/16 09/08/18 Clopidogrel [Plavix] 75 mg PO DAILY 07/30/16 09/08/18 lamoTRIgine 200 mg PO BID 07/30/16 09/08/18 Albuterol Nebulized [Ventolin 2.5 mg INHALATION RT-QID PRN 03/27/17 09/08/18 Nebulized] Magnesium Gluconate [Magonate] 500 mg PO DAILY 03/27/17 09/08/18 Aspirin [Adult Low Dose Aspirin EC] 81 mg PO DAILY 11/26/17 09/08/18 Atorvastatin [Lipitor] 80 mg PO DAILY 11/26/17 09/08/18 Enalapril [Vasotec] 10 mg PO BID 11/26/17 09/08/18 Nitroglycerin Sl Tabs [Nitrostat] 0.4 mg SUBLINGUAL Q5M PRN 11/26/17 09/08/18 DULoxetine HCL [Cymbalta] 60 mg PO DAILY 08/25/18 09/08/18 INSULIN LISPRO (humaLOG) [humaLOG] 11 unit SQ AC-BRKFST 08/25/18 09/08/18 INSULIN LISPRO (humaLOG) [humaLOG] 22 unit SQ AC-LUNCH 08/25/18 09/08/18 INSULIN LISPRO (humaLOG) [humaLOG] 25 unit SQ AC-SUPPER 08/25/18 09/08/18 ALPRAZolam [Xanax] 1 mg PO HS 09/08/18 09/08/18 Dapagliflozin Propanediol [Farxiga] 5 mg PO DAILY 09/08/18 09/08/18 Hydrocodone/Acetaminophen [[place] 1 tab PO HS 09/08/18 09/08/18 7.5-325] Isosorbide Mononitrate ER [Imdur] 60 mg PO DAILY 09/08/18 09/08/18 Thiamine [Vitamin B-1] 100 mg PO DAILY 09/08/18 09/08/18 Varenicline [Chantix Continuing 1 mg PO BID 09/08/18 09/08/18 Pack] Previous Rx's Medication Instructions Recorded Citalopram Hydrobromide [CeleXA] 40 mg PO DAILY #1 tab 03/10/15 Carvedilol [Coreg*] 25 mg PO BID-W/MEALS #60 tab 09/09/18 Insulin Glargine [Lantus] 60 unit SQ DAILY #0 09/09/18 Pantoprazole [Protonix] 40 mg PO -[facility] #30 tablet. 09/09/18 metFORMIN HCL 1,000 mg PO BID #0 09/09/18 Polyethylene Glycol 3350 [Miralax] 17 gm PO BID #527 gm 12/28/18 Allergies Allergy/AdvReac Type Severity Reaction Status Date / Time Fish Containing Products Allergy Unknown Verified 12/28/18 02:20 Iodinated Contrast- Oral and Allergy throat Verified 12/28/18 02:20 IV Dye swelling [Iodinated Contrast Media - IV Dye] Sulfa (Sulfonamide Allergy throat Verified 12/28/18 02:20 Antibiotics) swelling sulfamethoxazole Allergy throat Verified 12/28/18 02:20 [From ] swelling trimethoprim [From ] Allergy throat Verified 12/28/18 02:20 swelling NUTS Allergy Unknown Uncoded 12/28/18 02:20 Review of Systems ROS Statement: Those systems with pertinent positive or pertinent negative responses have been documented in the HPI. ROS Other: All systems not noted in ROS Statement are negative. 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 andper pt' s spouse- slight foot drag when tired.diabetes mellitus insulin-dependent, hypertension, hyperlipidemia, fibromyalgia, obstructive sleep apnea, MS, questionable hypercoagulable disease, anxiety, depression, obesity, ovarian cyst , MIX5 Last Myocardial Infarction Date:: unk History of Any Multi-Drug Resistant Organisms: None Reported Past Surgical History: Section, Cholecystectomy, Heart Catheterization With Stent, Hysterectomy, Tubal Ligation, Uterine Ablation Additional Past Surgical History / Comment(s): vein stripping right leg, radio frequency ablation of right back-02/22/2015, four stents on 04/03/16 and one on march 05 Past Anesthesia/Blood Transfusion Reactions: Motion Sickness Additional Past Anesthesia/Blood Transfusion Reaction / Comment(s): mild clausterphobia Date of Last Stent Placement:: 2003 Past Psychological History: Anxiety, Depression Smoking Status: Former smoker Past Alcohol Use History: None Reported Past Drug Use History: None Reported - Past Family History Father Family Medical History: Congestive Heart Failure (CHF), Coronary Artery Disease (CAD), Diabetes Mellitus Mother Family Medical History: Cancer, Hypertension, Respiratory Disorder Additional Family Medical History / Comment(s): emphysema, colon CA General Exam - General Exam Comments Initial Comments: Physical Exam GENERAL: Patient is well-developed and well-nourished. Patient is nontoxic and well- hydrated and is in no distress. HENT: Normocephalic, Atraumatic. EYES: PERRL, EOMI PULMONARY: Unlabored respirations. No audible rales rhonchi or wheezing was noted. CARDIOVASCULAR: There is a regular rate and rhythm without any murmurs gallops or rubs. ABDOMEN: Obese, Soft and nontender with normal bowel sounds. SKIN: Skin is clear with no lesions or rashes and otherwise unremarkable. : Deferred NEUROLOGIC: Patient is alert and oriented x3. Moving all extremities spontaneously MUSCULOSKELETAL: Normal extremities with adequate strength and full range of motion. No lower extremity swelling or edema. No calf tenderness. PSYCHIATRIC: Normal psychiatric evaluation. Limitations: no limitations Limitations: no limitations Course Vital Signs 12/28/18 12/28/18 12/28/18 02:15 04:46 05:40 Temperature 97.9 F Pulse Rate 81 67 70 Respiratory 20 18 18 Rate Blood Pressure 199/102 189/93 153/70 O2 Sat by Pulse 95 96 97 Oximetry 12/28/18 06:03 Temperature 97.8 F Pulse Rate Respiratory Rate Blood Pressure O2 Sat by Pulse Oximetry Medical Decision Making - Medical Decision Making Patient was seen and evaluated, history is obtained from patient Patient with abdominal pain, decreased appetite and constipation Labs and imaging were ordered X-ray with no acute findings no free air, no overwhelming stool. Labs were reviewed, lipase is minimally elevated, glucose elevated labs otherwise unremarkable Discussed the minimal lipase elevation of the patient this could be related to alcohol the patient denies, unlikely to be related to gallstones as patient has no other transaminitis and elevated bilirubin and she has no gallbladder in place, I advised the patient this could be related to medications. I recommended that she maintain hydration and follow up outpatient for reevaluation or if her pain worsens she should return to the ER for reevaluation. Patient's breast understanding of this plan. Patient was noted to be for glycemic and insulin was ordered. Patient received IV fluids. X-ray reveals no acute findings and these results were discussed with patient who expresses relief. Patient was reevaluated her glucose is improving. Advised the patient will give her additional insulin at this time. Patient states that her morning dose of insulin is both Lantus 60 units and sliding scale NovoLog. Patient states that her sliding scales much higher than hours that she takes 11 units at baseline and she would feel comfortable administering her own home insulin if she could be discharged this time. All questions pertaining to care were answered I had a long discussion with the patient regarding her constipation I did advise her to start MiraLAX as I do feel this would benefit her significantly. All questions pertaining care were answered return parameters were discussed the patient was discharged home in stable condition - Lab Data Result diagrams: 12/28/18 02:27 12/28/18 02:27 Lab Results 12/28/18 12/28/18 12/28/18 Range/Units 02:27 02:27 02:27 WBC 12.1 H (3.8-10.6) k/uL RBC 5.08 (3.80-5.40) m/uL Hgb 15.9 (11.4-16.0) gm/dL Hct 47.8 H (34.0-46.0) % MCV 94.1 (80.0-100.0) fL MCH 31.3 (25.0-35.0) pg MCHC 33.2 (31.0-37.0) g/dL RDW 13.4 (11.5-15.5) % Plt Count 243 (150-450) k/uL Neutrophils % 64 % Lymphocytes % 28 % Monocytes % 5 % Eosinophils % 2 % Basophils % 1 % Neutrophils # 7.8 H (1.3-7.7) k/uL Lymphocytes # 3.4 (1.0-4.8) k/uL Monocytes # 0.6 (0-1.0) k/uL Eosinophils # 0.2 (0-0.7) k/uL Basophils # 0.1 (0-0.2) k/uL Sodium 137 (137-145) mmol/L Potassium 4.3 (3.5-5.1) mmol/L Chloride 98 (98-107) mmol/L Carbon Dioxide 23 (22-30) mmol/L Anion Gap 16 mmol/L BUN 16 (7-17) mg/dL Creatinine 0.69 (0.52-1.04) mg/dL Est GFR (CKD-EPI)AfAm >90 (>60 ml/min/1.73 sqM) Est GFR (CKD-EPI)NonAf >90 (>60 ml/min/1.73 sqM) Glucose 496 H (74-99) mg/dL POC Glucose (mg/dL) (75-99) mg/dL POC Glu Baby Formula Mixer ID Calcium 10.6 H (8.4-10.2) mg/dL Total Bilirubin 0.6 (0.2-1.3) mg/dL AST 14 (14-36) U/L ALT 27 (9-52) U/L Alkaline Phosphatase 129 H (38-126) U/L Total Protein 7.2 (6.3-8.2) g/dL Albumin 4.4 (3.5-5.0) g/dL Amylase 53 (30-110) U/L Lipase 365 H (23-300) U/L Urine Color Urine Appearance (Clear) Urine pH (5.0-8.0) Ur Specific [place] (1.001-1.035) Urine Protein (Negative) Urine Glucose (UA) (Negative) Urine Ketones (Negative) Urine Blood (Negative) Urine Nitrite (Negative) Urine Bilirubin (Negative) Urine Urobilinogen (<2.0) mg/dL Ur Leukocyte Esterase (Negative) Urine RBC (0-5) /hpf Urine WBC (0-5) /hpf Ur Squamous Epith Cells (0-4) /hpf Urine Bacteria (None) /hpf Urine HCG, Qual Not Detected (Not Detectd) 12/28/18 12/28/18 Range/Units 02:27 04:19 WBC (3.8-10.6) k/uL RBC (3.80-5.40) m/uL Hgb (11.4-16.0) gm/dL Hct (34.0-46.0) % MCV (80.0-100.0) fL MCH (25.0-35.0) pg MCHC (31.0-37.0) g/dL RDW (11.5-15.5) % Plt Count (150-450) k/uL Neutrophils % % Lymphocytes % % Monocytes % % Eosinophils % % Basophils % % Neutrophils # (1.3-7.7) k/uL Lymphocytes # (1.0-4.8) k/uL Monocytes # (0-1.0) k/uL Eosinophils # (0-0.7) k/uL Basophils # (0-0.2) k/uL Sodium (137-145) mmol/L Potassium (3.5-5.1) mmol/L Chloride (98-107) mmol/L Carbon Dioxide (22-30) mmol/L Anion Gap mmol/L BUN (7-17) mg/dL Creatinine (0.52-1.04) mg/dL Est GFR (CKD-EPI)AfAm (>60 ml/min/1.73 sqM) Est GFR (CKD-EPI)NonAf (>60 ml/min/1.73 sqM) Glucose (74-99) mg/dL POC Glucose (mg/dL) 409 H (75-99) mg/dL POC Glu Baby Formula Mixer ID Maribell Wiggins Calcium (8.4-10.2) mg/dL Total Bilirubin (0.2-1.3) mg/dL AST (14-36) U/L ALT (9-52) U/L Alkaline Phosphatase (38-126) U/L Total Protein (6.3-8.2) g/dL Albumin (3.5-5.0) g/dL Amylase (30-110) U/L Lipase (23-300) U/L Urine Color Light Yellow Urine Appearance Clear (Clear) Urine pH 6.5 (5.0-8.0) Ur Specific [place] 1.023 (1.001-1.035) Urine Protein 1+ H (Negative) Urine Glucose (UA) 4+ H (Negative) Urine Ketones Negative (Negative) Urine Blood Trace H (Negative) Urine Nitrite Negative (Negative) Urine Bilirubin Negative (Negative) Urine Urobilinogen <2.0 (<2.0) mg/dL Ur Leukocyte Esterase Negative (Negative) Urine RBC 1 (0-5) /hpf Urine WBC <1 (0-5) /hpf Ur Squamous Epith Cells <1 (0-4) /hpf Urine Bacteria Rare H (None) /hpf Urine HCG, Qual (Not Detectd) Disposition Clinical Impression: Abdominal pain, Elevated lipase, Hyperglycemia due to type 2 diabetes mellitus Disposition: ADMITTED IP TO THIS [facility] Condition: Critical Instructions (If sedation given, give patient instructions): Abdominal Pain in Children (ED) Prescriptions: Polyethylene Glycol 3350 [Miralax] 17 gm PO BID #527 gm Referrals: Dagmar Hennessy MD [Primary Care Provider] - 1-2 days
[2018-12-28 04:21] LABS: Glucose,Whole Blood 409 mg/dL (75-99)
[2018-12-28 04:47] VITALS: RESP 18
[2018-12-28 05:41] VITALS: BP 153/70; PULSE 70
[2018-12-28 06:08] VITALS: TEMP 97.8
== END 2018-12-28 06:08 | disposition home or self-care (01) ==
LOC: EC 02:12
DX: E11.65 Type 2 diabetes mellitus with hyperglycemia (principal); R10.13 Epigastric pain; R74.8 Abnormal levels of other serum enzymes; M79.7 Fibromyalgia; E78.5 Hyperlipidemia, unspecified; I10 Essential (primary) hypertension; I25.2 Old myocardial infarction; K59.09 Other constipation; G47.33 Obstructive sleep apnea (adult) (pediatric); Z99.89 Dependence on other enabling machines and devices; F32.9 Major depressive disorder, single episode, unspecified; F41.9 Anxiety disorder, unspecified; I25.119 Atherosclerotic heart disease of native coronary artery with unspecified angina pectoris; G25.81 Restless legs syndrome; E66.9 Obesity, unspecified; Z68.32 Body mass index [BMI] 32.0-32.9, adult; Z86.73 Personal history of transient ischemic attack (TIA), and cerebral infarction without residual deficits; Z87.891 Personal history of nicotine dependence; Z85.41 Personal history of malignant neoplasm of cervix uteri; Z79.4 Long term (current) use of insulin; Z79.01 Long term (current) use of anticoagulants; Z79.891 Long term (current) use of opiate analgesic; Z79.82 Long term (current) use of aspirin; Z91.013 Allergy to seafood; Z91.041 Radiographic dye allergy status; Z88.2 Allergy status to sulfonamides; Z91.018 Allergy to other foods; Z88.1 Allergy status to other antibiotic agents; Z95.5 Presence of coronary angioplasty implant and graft; Z90.49 Acquired absence of other specified parts of digestive tract; Z82.49 Family history of ischemic heart disease and other diseases of the circulatory system; Z79.899 Other long term (current) drug therapy
CPT/HCPCS: 36415; 74018; 80053; 81001; 81025; 82150; 83690; 85025; 96360; 96361; 99284

== ENCOUNTER 2019-01-16 00:37 | Emergency (ER) | payer OTHER ==
[2019-01-16 00:44] VITALS: TEMP 98.3
--- NOTE | 2019-01-16 01:29 | ED ---
Abdominal Pain HPI - General Source: patient Mode of arrival: ambulatory Limitations: no limitations <Kim Marshall - Last Filed: 01/16/19 03:35> <Khushboo Maravilla - Last Filed: 01/17/19 21:11> - General Chief Complaint: Abdominal Pain Stated Complaint: Constipation Time Seen by Provider: 01/16/19 00:52 - History of Present Illness Initial Comments: 48-year-old female patient with multiple chronic medical conditions presents to the emergency department today for evaluation of constipation. Patient states that she does have chronic constipation for which she takes a stool softener. Patient states that she was seen and evaluated in the emergency department 2 weeks ago for constipation. States that she has not had a bowel movement since prior to that visit. States that she occasionally will pass gas but has had no stool output at all. Patient states that her abdomen is becoming more 4. Patient states she is having a lot of rectal pain and pressure. States she feels that she cannot sit down because of this. She is also reporting nausea and she's had 3 episodes of vomiting today. Patient states she has been taking MiraLAX, stool softeners, and has tried an enema which has not helped. Patient does admit to taking an opiate pain medication on a nightly basis. Patient denies any recent rash, fever, chills, shortness breath, chest pain, back pain, numbness, tingling, dizziness, weakness, hematuria, dysuria, urinary urgency, urinary frequency, headache, visual changes, or any other complaints. (Kim Marshall) - Related Data Home Medications Medication Instructions Recorded Confirmed Fenofibrate [Lofibra] 160 mg PO DAILY 03/02/15 09/08/18 Pregabalin [Lyrica] 150 mg PO BID 06/25/15 09/08/18 Cholecalciferol [Vitamin D3] 5,000 unit PO DAILY 01/15/16 09/08/18 Folic Acid 2 mg PO DAILY 03/24/16 09/08/18 Clopidogrel [Plavix] 75 mg PO DAILY 07/30/16 09/08/18 lamoTRIgine 200 mg PO BID 07/30/16 09/08/18 Albuterol Nebulized [Ventolin 2.5 mg INHALATION RT-QID PRN 03/27/17 09/08/18 Nebulized] Magnesium Gluconate [Magonate] 500 mg PO DAILY 03/27/17 09/08/18 Aspirin [Adult Low Dose Aspirin EC] 81 mg PO DAILY 11/26/17 09/08/18 Atorvastatin [Lipitor] 80 mg PO DAILY 11/26/17 09/08/18 Enalapril [Vasotec] 10 mg PO BID 11/26/17 09/08/18 Nitroglycerin Sl Tabs [Nitrostat] 0.4 mg SUBLINGUAL Q5M PRN 11/26/17 09/08/18 DULoxetine HCL [Cymbalta] 60 mg PO DAILY 08/25/18 09/08/18 INSULIN LISPRO (humaLOG) [humaLOG] 11 unit SQ AC-BRKFST 08/25/18 09/08/18 INSULIN LISPRO (humaLOG) [humaLOG] 22 unit SQ AC-LUNCH 08/25/18 09/08/18 INSULIN LISPRO (humaLOG) [humaLOG] 25 unit SQ AC-SUPPER 08/25/18 09/08/18 ALPRAZolam [Xanax] 1 mg PO HS 09/08/18 09/08/18 Dapagliflozin Propanediol [Farxiga] 5 mg PO DAILY 09/08/18 09/08/18 Hydrocodone/Acetaminophen [[place] 1 tab PO HS 09/08/18 09/08/18 7.5-325] Isosorbide Mononitrate ER [Imdur] 60 mg PO DAILY 09/08/18 09/08/18 Thiamine [Vitamin B-1] 100 mg PO DAILY 09/08/18 09/08/18 Varenicline [Chantix Continuing 1 mg PO BID 09/08/18 09/08/18 Pack] Previous Rx's Medication Instructions Recorded Citalopram Hydrobromide [CeleXA] 40 mg PO DAILY #1 tab 03/10/15 Carvedilol [Coreg*] 25 mg PO BID-W/MEALS #60 tab 09/09/18 Insulin Glargine [Lantus] 60 unit SQ DAILY #0 09/09/18 Pantoprazole [Protonix] 40 mg PO AC-BRKFST #30 tablet. 09/09/18 metFORMIN HCL 1,000 mg PO BID #0 09/09/18 Polyethylene Glycol 3350 [Miralax] 17 gm PO BID #527 gm 12/28/18 Allergies Allergy/AdvReac Type Severity Reaction Status Date / Time Fish Containing Products Allergy Unknown Verified 01/16/19 00:44 Iodinated Contrast- Oral and Allergy throat Verified 01/16/19 00:44 IV Dye swelling [Iodinated Contrast Media - IV Dye] Sulfa (Sulfonamide Allergy throat Verified 01/16/19 00:44 Antibiotics) swelling sulfamethoxazole Allergy throat Verified 01/16/19 00:44 [From Junra] swelling trimethoprim [From Junra] Allergy throat Verified 01/16/19 00:44 swelling NUTS Allergy Unknown Uncoded 01/16/19 00:44 Review of Systems ROS Other: All systems not noted in ROS Statement are negative. <Kim Marshall - Last Filed: 01/16/19 03:35> ROS Other: All systems not noted in ROS Statement are negative. <Khushboo Maravilla - Last Filed: 01/17/19 21:11> ROS Statement: Those systems with pertinent positive or pertinent negative responses have been documented in the HPI. 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 andper pt's spouse- slight foot drag when tired.diabetes mellitus insulin-dependent, hypertension, hyperlipidemia, fibromyalgia, obstructive sleep apnea, MS, questionable hypercoagulable disease, anxiety, depression, obesity, ovarian cyst, MIX5 Last Myocardial Infarction Date:: unk History of Any Multi-Drug Resistant Organisms: None Reported Past Surgical History: Section, Cholecystectomy, Heart Catheterization With Stent, Hysterectomy, Tubal Ligation, Uterine Ablation Additional Past Surgical History / Comment(s): vein stripping right leg, radio frequency ablation of right back-02/22/2015, four stents on 04/03/16 and one on march 05 Past Anesthesia/Blood Transfusion Reactions: Motion Sickness Additional Past Anesthesia/Blood Transfusion Reaction / Comment(s): mild clausterphobia Date of Last Stent Placement:: 2003 Past Psychological History: Anxiety, Depression Smoking Status: Current every day smoker Past Alcohol Use History: None Reported Past Drug Use History: None Reported - Past Family History Father Family Medical History: Congestive Heart Failure (CHF), Coronary Artery Disease (CAD), Diabetes Mellitus Mother Family Medical History: Cancer, Hypertension, Respiratory Disorder Additional Family Medical History / Comment(s): emphysema, colon CA <Kim Marshall - Last Filed: 01/16/19 03:35> General Exam Limitations: no limitations General appearance: alert, in no apparent distress, other (This is a well- developed, well-nourished adult female patient in no acute distress. Vital signs upon presentation are temperature 98.3F, pulse 72, respirations 18, blood pressure 195/93, pulse ox 97% on room air.) Eye exam: Present: normal appearance, PERRL, EOMI. Absent: scleral icterus, conjunctival injection, periorbital swelling ENT exam: Present: normal exam, normal oropharynx, mucous membranes moist Respiratory exam: Present: normal lung sounds bilaterally. Absent: respiratory distress, wheezes, rales, rhonchi, stridor Cardiovascular Exam: Present: regular rate, normal rhythm, normal heart sounds. Absent: systolic murmur, diastolic murmur, rubs, gallop, clicks GI/Abdominal exam: Present: soft, tenderness (Generalized), normal bowel sounds. Absent: distended, guarding, rebound, rigid Neurological exam: Present: alert, oriented X3, CN II-XII intact Psychiatric exam: Present: normal affect, normal mood Skin exam: Present: warm, dry, intact, normal color. Absent: rash <Kim Marshall M - Last Filed: 01/16/19 03:35> Course Vital Signs 01/16/19 01/16/19 00:42 03:48 Temperature 98.3 F Pulse Rate 72 74 Respiratory 18 16 Rate Blood Pressure 195/93 201/115 O2 Sat by Pulse 97 95 Oximetry Medical Decision Making - Radiology Data Radiology results: report reviewed, image reviewed <Kim Marshall M - Last Filed: 01/16/19 03:35> <Khushboo Maravilla - Last Filed: 01/17/19 21:11> - Medical Decision Making 48-year-old female patient presents to the emergency department today for evaluation of constipation. Patient is reporting abdominal fullness and rectal pressure. Patient states she is not had a bowel movement in 14 days. Physical examination does reveal mildly tender lower abdomen. KUB x-ray did show evidence for stool burden. I did attempt to perform digital disimpaction, there was a large amount of stool in the colon however no soft. We did perform a milk of molasses enema. Upon reevaluation patient states she did have 7 large bowel movements since receiving enema. States she feels much better. Patient denies any current abdominal pain. She'll be discharged at this time to continue home medications. She is instructed to follow-up with her primary care physician for recheck in 1-2 days. Return parameters were discussed in detail. She verbalizes understanding and agrees with this plan. (Kim Marshall) I was available for consultation in the emergency department. The history and physical exam were done by the midlevel provider. I was consulted for this patient's care. I reviewed the case with the midlevel provider and based on t heir presentation of the patient, I agree with the assessment, medical decision making and plan of care as documented. (Khushboo Maravilla) - Radiology Data 3 views of the abdomen are obtained. Report was reviewed in its entirety. Impression by Dr. Talley shows no acute findings. (Kim aMrshall) Disposition Is patient prescribed a controlled substance at d/c from ED?: No Time of Disposition: 03:34 <Kim Marshall - Last Filed: 01/16/19 03:35> <Khushboo Maravilla - Last Filed: 01/17/19 21:11> Clinical Impression: Abdominal pain Disposition: HOME SELF-CARE Condition: Good Instructions (If sedation given, give patient instructions): Constipation (ED), Abdominal Pain (ED) Additional Instructions: Continue stool softeners. Follow up with your primary care physician for recheck in 1-2 days. Return to the emergency department for any new, worsening, or concerning symptoms. Referrals: Dagmar Hennessy MD [Primary Care Provider] - 1-2 days
--- NOTE | 2019-01-16 01:42 | XR ---
EXAM: XR Abdomen, 3 or More Views CLINICAL HISTORY: Pain TECHNIQUE: Frontal view of the abdomen/pelvis with upright view of the abdomen and one or more additional views. COMPARISON: Abdominal x-rays dated 12/28/2017 FINDINGS: Intraperitoneal space: No free air. Gastrointestinal tract: Unremarkable. No dilation. Organs: Evidence of prior cholecystectomy. Bones/joints: Unremarkable. IMPRESSION: No acute findings.
[2019-01-16] MEDS ORDERED: MAGNESIUM CITRATE 296 ML BOTTLE PO ONE (03:32)
[2019-01-16] MEDS ORDERED: cloNIDine HCL 0.1 MG TAB PO STA (03:56)
[2019-01-16 03:57] VITALS: BP 201/115; PULSE 74; RESP 16
== END 2019-01-16 04:00 | disposition home or self-care (01) ==
LOC: EC 00:37
DX: K59.00 Constipation, unspecified (principal); R11.2 Nausea with vomiting, unspecified; E11.9 Type 2 diabetes mellitus without complications; M79.7 Fibromyalgia; E78.5 Hyperlipidemia, unspecified; I10 Essential (primary) hypertension; I25.2 Old myocardial infarction; G25.81 Restless legs syndrome; I25.10 Atherosclerotic heart disease of native coronary artery without angina pectoris; F41.9 Anxiety disorder, unspecified; F32.9 Major depressive disorder, single episode, unspecified; F17.200 Nicotine dependence, unspecified, uncomplicated; G47.33 Obstructive sleep apnea (adult) (pediatric); Z99.89 Dependence on other enabling machines and devices; E66.9 Obesity, unspecified; Z68.32 Body mass index [BMI] 32.0-32.9, adult; Z85.41 Personal history of malignant neoplasm of cervix uteri; Z85.42 Personal history of malignant neoplasm of other parts of uterus; Z86.73 Personal history of transient ischemic attack (TIA), and cerebral infarction without residual deficits; Z95.5 Presence of coronary angioplasty implant and graft; Z90.49 Acquired absence of other specified parts of digestive tract; Z90.710 Acquired absence of both cervix and uterus; Z98.51 Tubal ligation status; Z98.890 Other specified postprocedural states; Z79.02 Long term (current) use of antithrombotics/antiplatelets; Z79.82 Long term (current) use of aspirin; Z79.4 Long term (current) use of insulin; Z79.891 Long term (current) use of opiate analgesic; Z79.899 Other long term (current) drug therapy; Z91.013 Allergy to seafood; Z91.041 Radiographic dye allergy status; Z88.2 Allergy status to sulfonamides; Z91.018 Allergy to other foods
CPT/HCPCS: 74018; 99283

== ENCOUNTER 2019-01-22 21:04 | Emergency (ER) | payer OTHER ==
[2019-01-22 21:29] VITALS: RESP 18
[2019-01-22] MEDS ORDERED: SODIUM CHLORIDE 0.9% 500 ML 500 ML IV STA (22:04)
[2019-01-22 22:58] LABS: Basophils % (A) 0 %; Eosinophils # (A) 0.1 k/uL (0-0.7); Eosinophils % (A) 1 %; HCT 46.9 % (34.0-46.0); HGB 16.1 gm/dL (11.4-16.0); Lymphocytes # (A) 2.4 k/uL (1.0-4.8); Lymphocytes % (A) 26 %; MCH 31.2 pg (25.0-35.0); MCHC 34.4 g/dL (31.0-37.0); MCV 90.5 fL (80.0-100.0); Mean Platelet Volume 7.6; Monocytes # (A) 0.4 k/uL (0-1.0); Monocytes % (A) 4 %; Neutrophils # (A) 6.2 k/uL (1.3-7.7); Neutrophils % (A) 66 %; Platelet Count 207 k/uL (150-450); RBC 5.18 m/uL (3.80-5.40); WBC 9.4 k/uL (3.8-10.6)
[2019-01-22 23:07] LABS: ALT 28 U/L (9-52); AST 17 U/L (14-36); Albumin 4.2 g/dL (3.5-5.0); Alkaline Phosphatase 131 U/L (38-126); Amylase 39 U/L (30-110); Anion Gap 11 mmol/L; Blood Urea Nitrogen 15 mg/dL (7-17); Calcium 10.2 mg/dL (8.4-10.2); Carbon Dioxide 24 mmol/L (22-30); Chloride 99 mmol/L (98-107); Glucose 407 mg/dL (74-99); Lipase 132 U/L (23-300); Potassium 4.7 mmol/L (3.5-5.1); Sodium 134 mmol/L (137-145); Total Bilirubin 0.7 mg/dL (0.2-1.3); Total Protein 6.9 g/dL (6.3-8.2)
[2019-01-22] MEDS ORDERED: diphenhydrAMINE 50 MG/ML 1 ML VIAL IVP STA (23:39)
[2019-01-22] MEDS ORDERED: FAMOTIDINE 20 MG/2 ML VIAL IV STA (23:39)
[2019-01-22] MEDS ORDERED: methylPREDNISolone SOD SUCCI 125 MG/2 ML VIAL IV STA (23:39)
[2019-01-23 00:10] LABS: Appearance,Urine Clear (Clear); Bilirubin,Urine Negative (Negative); Blood,Urine Negative (Negative); Budding Yeast,Urine Moderate /hpf; Color,Urine Light Yellow; Glucose,Urine (UA) 4+ (Negative); Ketones,Urine Negative (Negative); Leukocyte Esterase,Urine Negative (Negative); Mucus,Urine Rare /hpf; Nitrite,Urine Negative (Negative); PH, Urine 5.5 (5.0-8.0); Protein,Urine 1+ (Negative); RBC,Urine 2 /hpf (0-5); Specific Gravity,Urine 1.036 (1.001-1.035); Squamous Epithelial Cell,Urine 1 /hpf (0-4); Urobilinogen,Urine <2.0 mg/dL (<2.0); WBC,Urine <1 /hpf (0-5)
[2019-01-23] MEDS ORDERED: INSULIN REGULAR 100 UNIT/ML VIAL SQ ONE ×2 (00:31→02:04)
--- NOTE | 2019-01-23 01:49 | ED ---
Abdominal Pain HPI - General Source: patient Mode of arrival: ambulatory Limitations: no limitations <Rochelle Cosby - Last Filed: 01/23/19 02:31> <Khushboo Maravilla - Last Filed: 01/23/19 02:50> - General Chief Complaint: Abdominal Pain Stated Complaint: Abd pain Time Seen by Provider: 01/22/19 22:04 - History of Present Illness Initial Comments: 48-year-old female with insulin lives independent type 2 diabetes, hypertension presents today for abdominal pain. Patient states that she was seen on for abdominal pain, she states she was constipated that time and given enema, she states that since discharge she has had normal bowel movements. Patient states she has had continuous abdominal and occasional episodes of vomiting. Patient denies melena hematochezia. Patient states she discussed concerns with primary doctor who recommended evaluation emergency department with possible CT imaging study. Patient denies any chest pain, dyspnea, dyspnea on exertion she denies any leg swelling recent travel history of cancer. Remaining review of systems negative, patient denies any recent fever, chills, back pain, numbness or tingling, dysuria or hematuria, diarrhea, headaches or visual changes, or any other complaints. (Rochelle Cosby) - Related Data Home Medications Medication Instructions Recorded Confirmed Fenofibrate [Lofibra] 160 mg PO DAILY 03/02/15 01/22/19 Pregabalin [Lyrica] 150 mg PO BID 06/25/15 01/22/19 Cholecalciferol [Vitamin D3] 5,000 unit PO DAILY 01/15/16 01/22/19 Folic Acid 2 mg PO DAILY 03/24/16 01/22/19 Clopidogrel [Plavix] 75 mg PO DAILY 07/30/16 01/22/19 lamoTRIgine 200 mg PO BID 07/30/16 01/22/19 Albuterol Nebulized [Ventolin 2.5 mg INHALATION RT-QID PRN 03/27/17 01/22/19 Nebulized] Magnesium Gluconate [Magonate] 500 mg PO DAILY 03/27/17 01/22/19 Aspirin [Adult Low Dose Aspirin EC] 81 mg PO DAILY 11/26/17 01/22/19 Atorvastatin [Lipitor] 80 mg PO DAILY 11/26/17 01/22/19 Enalapril [Vasotec] 10 mg PO BID 11/26/17 01/22/19 Nitroglycerin Sl Tabs [Nitrostat] 0.4 mg SUBLINGUAL Q5M PRN 11/26/17 01/22/19 DULoxetine HCL [Cymbalta] 60 mg PO DAILY 08/25/18 01/22/19 ALPRAZolam [Xanax] 1 mg PO HS 09/08/18 01/22/19 Hydrocodone/Acetaminophen [Metaline 1 tab PO HS 09/08/18 01/22/19 7.5-325] Isosorbide Mononitrate ER [Imdur] 60 mg PO DAILY 09/08/18 01/22/19 Thiamine [Vitamin B-1] 100 mg PO DAILY 09/08/18 01/22/19 Carvedilol [Coreg] 25 mg PO BID 01/22/19 01/22/19 Docusate [Colace] 100 mg PO Q48H 01/22/19 01/22/19 Insulin Lispro [Admelog] 5 unit SQ HS 01/22/19 01/22/19 Insulin Lispro [Admelog] 11 unit SQ AC-BRKFST 01/22/19 01/22/19 Insulin Lispro [Admelog] 22 unit SQ AC-LUNCH 01/22/19 01/22/19 Insulin Lispro [Admelog] 25 unit SQ AC-SUPPER 01/22/19 01/22/19 Insulin Lispro [Admelog] See Protocol SQ ACHS 01/22/19 01/22/19 Psyllium Husk [Metamucil] 0.4 mg PO DAILY 01/22/19 01/22/19 Previous Rx's Medication Instructions Recorded Citalopram Hydrobromide [CeleXA] 40 mg PO DAILY #1 tab 03/10/15 Insulin Glargine [Lantus] 60 unit SQ DAILY #0 09/09/18 Pantoprazole [Protonix] 40 mg PO AC-BRKFST #30 tablet. 09/09/18 metFORMIN HCL 1,000 mg PO BID #0 09/09/18 Allergies Allergy/AdvReac Type Severity Reaction Status Date / Time Fish Containing Products Allergy Unknown Verified 01/22/19 22:14 Iodinated Contrast- Oral and Allergy throat Verified 01/22/19 22:14 IV Dye swelling [Iodinated Contrast Media - IV Dye] Sulfa (Sulfonamide Allergy throat Verified 01/22/19 22:14 Antibiotics) swelling sulfamethoxazole Allergy throat Verified 01/22/19 22:14 [From Septra] swelling trimethoprim [From Septra] Allergy throat Verified 01/22/19 22:14 swelling NUTS Allergy Unknown Uncoded 01/22/19 21:29 Review of Systems ROS Other: All systems not noted in ROS Statement are negative. <Rochelle Cosby L - Last Filed: 01/23/19 02:31> ROS Other: All systems not noted in ROS Statement are negative. <Khushboo Maravilla P - Last Filed: 01/23/19 02:50> ROS Statement: Those systems with pertinent positive or pertinent negative responses have been documented in the HPI. 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 andper pt's spouse- slight foot drag when tired.diabetes mellitus insulin-dependent, hypertension, hyperlipidemia, fibromyalgia, obstructive sleep apnea, MS, questionable hypercoagulable disease, anxiety, depression, obesity, ovarian cyst, MIX5 Last Myocardial Infarction Date:: unk History of Any Multi-Drug Resistant Organisms: None Reported Past Surgical History: Section, Cholecystectomy, Heart Catheterization With Stent, Hysterectomy, Tubal Ligation, Uterine Ablation Additional Past Surgical History / Comment(s): vein stripping right leg, radio frequency ablation of right back-02/22/2015, four stents on 04/03/16 and one on march 05 Past Anesthesia/Blood Transfusion Reactions: Motion Sickness Additional Past Anesthesia/Blood Transfusion Reaction / Comment(s): mild clausterphobia Date of Last Stent Placement:: 2003 Past Psychological History: Anxiety, Depression Smoking Status: Current every day smoker Past Alcohol Use History: None Reported Past Drug Use History: None Reported - Past Family History Father Family Medical History: Congestive Heart Failure (CHF), Coronary Artery Disease (CAD), Diabetes Mellitus Mother Family Medical History: Cancer, Hypertension, Respiratory Disorder Additional Family Medical History / Comment(s): emphysema, colon CA <Rochelle Cosby - Last Filed: 01/23/19 02:31> General Exam Limitations: no limitations <Rochelle Cosby - Last Filed: 01/23/19 02:31> - General Exam Comments Initial Comments: General: The patient is awake and alert, in no distress, and does not appear a cutely ill. Eye: Pupils are equal, round and reactive to light, extra-ocular movements are intact. No nystagmus. There is normal conjunctiva bilaterally. No signs of icterus. Ears, nose, mouth and throat: There are moist mucous membranes and no oral lesions. Neck: The neck is supple, there is no tenderness or JVD. Cardiovascular: There is a regular rate and rhythm. No murmur, rub or gallop is appreciated. Respiratory: Lungs are clear to auscultation, respirations are non-labored, breath sounds are equal. No wheezes, stridor, rales, or rhonchi. Gastrointestinal: Soft, non-distended, mild diffuse tenderness to palpation of abdomen without masses or organomegaly noted. There is no rebound or guarding present. No CVA tenderness. Bowel sounds are unremarkable. Musculoskeletal: Normal ROM, no tenderness. Strength 5/5. Sensation intact. Pulses equal bilaterally 2+. Neurological: A&O x 3. CN II-XII intact, There are no obvious motor or sensory deficits. Coordination appears grossly intact. Speech is normal. Skin: Skin is warm and dry and no rashes or lesions are noted. Psychiatric: Cooperative, appropriate mood & affect, normal judgment. (Rochelle Cosby) Course Vital Signs 01/22/19 01/23/19 21:26 02:48 Temperature 98.6 F 98.3 F Pulse Rate 78 70 Respiratory 18 18 Rate Blood Pressure 169/96 149/87 O2 Sat by Pulse 96 98 Oximetry Medical Decision Making - Lab Data Result diagrams: 01/22/19 22:03 01/22/19 22:03 <Rochelle Cosby - Last Filed: 01/23/19 02:31> - Lab Data Result diagrams: 01/22/19 22:03 01/22/19 22:03 <Khushboo Maravilla - Last Filed: 01/23/19 02:50> - Medical Decision Making 48-year-old feel presenting for diffuse abdominal pain. Patient cannot point localized pain. No rigidity guarding. Heel jar negative. No signs of peritoneal irritation. Patient recently discharged for constipation. Patient states she has had regular bowel movements. There were noted moderate retention of fecal matter on KUB. CT revealed no acute intra-abdominal process at this time. Patient appears well to acute distress. repeat serial abdominal exams continue to be benign no signs of peritoneal irritation or significant pain. patient's blood glucose elevated, patient given subcutaneous insulin. patient usually on a sliding scale at home. in addition patient is getting iv fluids. after 8 mg subcutaneous regular insulin patient glucose remains elevated, negative ketones in urine. anion gap within normal limits no signs concerning for DKA at this time. patient was given additional 5 mg subcutaneously. Patient states she will repeat glucose at home. At this time it is unclear the exact etiology of abdominal pain however at this time I do not feel there is life threatening etiology. Patient states she is ready for discharge. I discussed the case the time provider Dr. Maravilla at this time we feel patient is stable for discharge with strict return parameters for increasing or worsening abdominal pain. Patient verbalized understanding patient is to follow-up with primary care provider in the next 1-2 days. (Rochelle Cosby) I was available for consultation in the emergency department. The history and physical exam were done by the midlevel provider. I was consulted for this patient's care. I reviewed the case with the midlevel provider and based on their presentation of the patient, I agree with the assessment, medical decision making and plan of care as documented. (Khushboo Maravilla) - Lab Data Lab Results 01/22/19 01/22/19 01/22/19 Range/Units 22:03 22:03 23:20 WBC 9.4 (3.8-10.6) k/uL RBC 5.18 (3.80-5.40) m/uL Hgb 16.1 H (11.4-16.0) gm/dL Hct 46.9 H (34.0-46.0) % MCV 90.5 (80.0-100.0) fL MCH 31.2 (25.0-35.0) pg MCHC 34.4 (31.0-37.0) g/dL RDW 13.0 (11.5-15.5) % Plt Count 207 (150-450) k/uL Neutrophils % 66 % Lymphocytes % 26 % Monocytes % 4 % Eosinophils % 1 % Basophils % 0 % Neutrophils # 6.2 (1.3-7.7) k/uL Lymphocytes # 2.4 (1.0-4.8) k/uL Monocytes # 0.4 (0-1.0) k/uL Eosinophils # 0.1 (0-0.7) k/uL Basophils # 0.0 (0-0.2) k/uL Sodium 134 L (137-145) mmol/L Potassium 4.7 (3.5-5.1) mmol/L Chloride 99 (98-107) mmol/L Carbon Dioxide 24 (22-30) mmol/L Anion Gap 11 mmol/L BUN 15 (7-17) mg/dL Creatinine 0.60 (0.52-1.04) mg/dL Est GFR (CKD-EPI)AfAm >90 (>60 ml/min/1.73 sqM) Est GFR (CKD-EPI)NonAf >90 (>60 ml/min/1.73 sqM) Glucose 407 H (74-99) mg/dL POC Glucose (mg/dL) (75-99) mg/dL POC Glu Computer Networker ID Calcium 10.2 (8.4-10.2) mg/dL Total Bilirubin 0.7 (0.2-1.3) mg/dL AST 17 (14-36) U/L ALT 28 (9-52) U/L Alkaline Phosphatase 131 H (38-126) U/L Total Protein 6.9 (6.3-8.2) g/dL Albumin 4.2 (3.5-5.0) g/dL Amylase 39 (30-110) U/L Lipase 132 (23-300) U/L Urine Color Light Yellow Urine Appearance Clear (Clear) Urine pH 5.5 (5.0-8.0) Ur Specific [place] 1.036 H (1.001-1.035) Urine Protein 1+ H (Negative) Urine Glucose (UA) 4+ H (Negative) Urine Ketones Negative (Negative) Urine Blood Negative (Negative) Urine Nitrite Negative (Negative) Urine Bilirubin Negative (Negative) Urine Urobilinogen <2.0 (<2.0) mg/dL Ur Leukocyte Esterase Negative (Negative) Urine RBC 2 (0-5) /hpf Urine WBC <1 (0-5) /hpf Ur Squamous Epith Cells 1 (0-4) /hpf Urine Mucus Rare H (None) /hpf Urine Yeast (Budding) Moderate H (None) /hpf 01/23/19 Range/Units 02:01 WBC (3.8-10.6) k/uL RBC (3.80-5.40) m/uL Hgb (11.4-16.0) gm/dL Hct (34.0-46.0) % MCV (80.0-100.0) fL MCH (25.0-35.0) pg MCHC (31.0-37.0) g/dL RDW (11.5-15.5) % Plt Count (150-450) k/uL Neutrophils % % Lymphocytes % % Monocytes % % Eosinophils % % Basophils % % Neutrophils # (1.3-7.7) k/uL Lymphocytes # (1.0-4.8) k/uL Monocytes # (0-1.0) k/uL Eosinophils # (0-0.7) k/uL Basophils # (0-0.2) k/uL Sodium (137-145) mmol/L Potassium (3.5-5.1) mmol/L Chloride (98-107) mmol/L Carbon Dioxide (22-30) mmol/L Anion Gap mmol/L BUN (7-17) mg/dL Creatinine (0.52-1.04) mg/dL Est GFR (CKD-EPI)AfAm (>60 ml/min/1.73 sqM) Est GFR (CKD-EPI)NonAf (>60 ml/min/1.73 sqM) Glucose (74-99) mg/dL POC Glucose (mg/dL) 317 H (75-99) mg/dL POC Glu Computer Networker ID Santiago, Birgit Calcium (8.4-10.2) mg/dL Total Bilirubin (0.2-1.3) mg/dL AST (14-36) U/L ALT (9-52) U/L Alkaline Phosphatase (38-126) U/L Total Protein (6.3-8.2) g/dL Albumin (3.5-5.0) g/dL Amylase (30-110) U/L Lipase (23-300) U/L Urine Color Urine Appearance (Clear) Urine pH (5.0-8.0) Ur Specific [place] (1.001-1.035) Urine Protein (Negative) Urine Glucose (UA) (Negative) Urine Ketones (Negative) Urine Blood (Negative) Urine Nitrite (Negative) Urine Bilirubin (Negative) Urine Urobilinogen (<2.0) mg/dL Ur Leukocyte Esterase (Negative) Urine RBC (0-5) /hpf Urine WBC (0-5) /hpf Ur Squamous Epith Cells (0-4) /hpf Urine Mucus (None) /hpf Urine Yeast (Budding) (None) /hpf Disposition Is patient prescribed a controlled substance at d/c from ED?: No Time of Disposition: 01:49 <Rochelle Cosby L - Last Filed: 01/23/19 02:31> <Khushboo Maravilla P - Last Filed: 01/23/19 02:50> Clinical Impression: Abdominal pain Disposition: HOME SELF-CARE Condition: Good Instructions (If sedation given, give patient instructions): Abdominal Pain (ED) Additional Instructions: Please use medication as discussed. Please follow-up with family doctor in the next 2 days of symptoms have not improved. Please return to emergency room if the symptoms increase or worsen or for any other concerns. Referrals: Dagmar Hennessy MD [Primary Care Provider] - 1-2 days
[2019-01-23 02:27] LABS: Glucose,Whole Blood 317 mg/dL (75-99)
[2019-01-23 02:48] VITALS: BP 149/87; PULSE 70; TEMP 98.3
--- NOTE | 2019-01-23 07:42 | XR ---
EXAMINATION TYPE: XR KUB DATE OF EXAM: 01/23/2019 2:22 AM CLINICAL HISTORY: Abdominal pain TECHNIQUE: Single upright image of the abdomen is obtained. COMPARISON: None. FINDINGS: Scattered gas is seen in nondilated small bowel loops. Gas and fecal material is seen in no ndilated colon. Liver is elongated extending to the iliac crest suggesting hepatomegaly. Cholecystect nicolasa clips are seen. No pneumoperitoneum is noted. Degenerative changes are seen of the lumbar spine o verall mild to moderate degree. The lung bases are clear and the osseous structures are intact. IMPRESSION: Nonobstructive bowel gas pattern.
--- NOTE | 2019-01-23 09:29 | CT ---
EXAMINATION TYPE: CT abdomen pelvis w con DATE OF EXAM: 01/23/2019 HISTORY: Abdominal Pain not further specified. CT DLP: 1371mGycm Automated Exposure Control for Dose Reduction was Utilized. CONTRAST: CT scan of the abdomen and pelvis is performed without oral but with IV Contrast, patient injected wi th 100 mL mL of Isovue 300. COMPARISON: CT abdomen and pelvis November 26, 2017 FINDINGS: LUNG BASES: Three-vessel Coronary artery calcification and/or stents are present. LIVER/GB: Cholecystectomy clips are redemonstrated. Liver is heterogeneously hypodense suggesting dif fuse fatty infiltration. PANCREAS: No significant abnormality is seen. SPLEEN: There is 1.3 cm splenule in splenic hilum redemonstrated. Splenomegaly is seen measuring 16.1 cm long axis coronal image 59 similar to prior. ADRENALS: Low dense thickening to both adrenal glands favors benign hyperplasia. KIDNEYS: Small bilateral renal calculi measuring 3 mm or smaller are redemonstrated bilaterally. They are seen better on prior noncontrast CT with 2-4 in both kidneys redemonstrated. BOWEL: Evaluation of bowel is suboptimal secondary to lack of enteric contrast. Stomach is poorly dis tended and thus suboptimally evaluated. No suspicious small or large bowel dilatation is seen. A 1.0 cm diverticulum medial second portion of duodenum coronal image 45 is redemonstrated. UTERUS/ADNEXA: Uterus is surgically absent or markedly atrophic. Previously visualized 4 cm right pel benigno cystic lesion is not clearly seen is either diminish in size or resolved since prior CT. It is di fficult to identify adjacent to nonopacified bowel loops. LYMPH NODES: No greater than 1cm abdominal or pelvic lymph nodes are appreciated. OSSEOUS STRUCTURES: No significant abnormality is seen. OTHER: Moderate calcified plaque of aortic stents into branch vessels. Small fat-containing umbilical hernia is redemonstrated IMPRESSION: No significant acute finding is seen to account for patient's clinical symptoms. Preliminary report for this study was provided by [employer]
== END 2019-01-23 02:48 | disposition home or self-care (01) ==
LOC: EC 21:04
DX: R10.84 Generalized abdominal pain (principal); R11.10 Vomiting, unspecified; E11.9 Type 2 diabetes mellitus without complications; M79.7 Fibromyalgia; E78.5 Hyperlipidemia, unspecified; I10 Essential (primary) hypertension; I25.2 Old myocardial infarction; G47.33 Obstructive sleep apnea (adult) (pediatric); Z99.89 Dependence on other enabling machines and devices; F32.9 Major depressive disorder, single episode, unspecified; F41.9 Anxiety disorder, unspecified; G25.81 Restless legs syndrome; I25.119 Atherosclerotic heart disease of native coronary artery with unspecified angina pectoris; F17.200 Nicotine dependence, unspecified, uncomplicated; Z86.73 Personal history of transient ischemic attack (TIA), and cerebral infarction without residual deficits; Z85.41 Personal history of malignant neoplasm of cervix uteri; E66.9 Obesity, unspecified; Z68.32 Body mass index [BMI] 32.0-32.9, adult; Z79.4 Long term (current) use of insulin; Z79.891 Long term (current) use of opiate analgesic; Z79.01 Long term (current) use of anticoagulants; Z79.899 Other long term (current) drug therapy; Z79.82 Long term (current) use of aspirin; Z91.013 Allergy to seafood; Z91.041 Radiographic dye allergy status; Z88.2 Allergy status to sulfonamides; Z91.010 Allergy to peanuts; Z88.1 Allergy status to other antibiotic agents; Z88.8 Allergy status to other drugs, medicaments and biological substances; Z95.5 Presence of coronary angioplasty implant and graft; Z90.49 Acquired absence of other specified parts of digestive tract; Z98.51 Tubal ligation status; Z53.8 Procedure and treatment not carried out for other reasons
CPT/HCPCS: 36415; 74018; 74177; 80053; 81001; 82150; 83690; 85025; 96374; 96375; 99284

== ENCOUNTER 2019-03-03 14:52 | Emergency (ER) | payer OTHER ==
[2019-03-03] MEDS ORDERED: SODIUM CHLORIDE 0.9% 1,000 ML IV ONE (15:32)
[2019-03-03] MEDS ORDERED: MORPHINE SULFATE 4 MG/ML SYRINGE IVP STA (15:37)
--- NOTE | 2019-03-03 16:50 | US ---
EXAMINATION TYPE: US pelvis complete transvag DATE OF EXAM: 03/03/2019 COMPARISON: CT scan 01/23/2019 CLINICAL HISTORY: Pain. Severe pelvic pain; patient stated has known ovarian cysts; hysterectomy due to CA TECHNIQUE: Transabdominal sonographic images of the pelvis were acquired. Transvaginal sonographic images were medically necessary to better assess the following anatomy: ovary characteristics Date of LMP: 2006 EXAM MEASUREMENTS: Uterus: surgically removed Endometrial Stripe: surgically removed Right Ovary: 6.9 x 4.5 x 3.6 cm Left Ovary: 5.2 x 3.6 x 3.3 cm 1. Right Ovary: abnormally enlarged with multiple follicular cysts with largest simple cyst = 1.9 x 2.0 x 1.8cm and largest complex cyst = 3.7 x 2.7 x 3.2cm. 2. Left Ovary: enlarged with couple of follicular cysts and largest =3.0 x 2.2 x 2.3cm. Spectral, color and waveform Doppler imaging shows good arterial and venous flow within the ovaries ; there is no evidence for ovarian torsion. 3. Bilateral Adnexa: free fluid noted medial to rt ovary = 4.4 x 2.2 x 1.6cm 4. Posterior cul-de-sac: wnl IMPRESSION: Hysterectomy. Multiple bilateral ovarian cysts and some are complex. No evidence of ovari an torsion. Ovarian cysts appear increased compared to the CT scan of 01/23/2019. Free fluid appears n ew compared to old CT scan.
[2019-03-03 16:51] LABS: Basophils # (A) 0.1 k/uL (0-0.2); Basophils % (A) 1 %; Eosinophils # (A) 0.1 k/uL (0-0.7); Eosinophils % (A) 1 %; HCT 46.7 % (34.0-46.0); HGB 15.7 gm/dL (11.4-16.0); Lymphocytes # (A) 2.6 k/uL (1.0-4.8); Lymphocytes % (A) 28 %; MCH 31.8 pg (25.0-35.0); MCHC 33.6 g/dL (31.0-37.0); MCV 94.5 fL (80.0-100.0); Mean Platelet Volume 7.6; Monocytes # (A) 0.4 k/uL (0-1.0); Monocytes % (A) 4 %; Neutrophils % (A) 65 %; Platelet Count 208 k/uL (150-450); RBC 4.94 m/uL (3.80-5.40); RDW 13.7 % (11.5-15.5); WBC 9.3 k/uL (3.8-10.6)
[2019-03-03 17:02] LABS: ALT 26 U/L (9-52); AST 14 U/L (14-36); Albumin 4.5 g/dL (3.5-5.0); Alkaline Phosphatase 128 U/L (38-126); Anion Gap 11 mmol/L; Blood Urea Nitrogen 11 mg/dL (7-17); Calcium 10.1 mg/dL (8.4-10.2); Carbon Dioxide 24 mmol/L (22-30); Chloride 101 mmol/L (98-107); Glucose 372 mg/dL (74-99); Potassium 4.3 mmol/L (3.5-5.1); Sodium 136 mmol/L (137-145); Total Bilirubin 0.7 mg/dL (0.2-1.3); Total Protein 7.1 g/dL (6.3-8.2)
[2019-03-03] MEDS ORDERED: hydrALAZINE HCL 20 MG/ML 1 ML VIAL IVP STA (17:38)
[2019-03-03] MEDS ORDERED: INSULIN REGULAR 100 UNIT/ML VIAL SQ ONE (17:47)
[2019-03-03 18:08] VITALS: RESP 20
[2019-03-03 18:22] LABS: Appearance,Urine Clear (Clear); Bilirubin,Urine Negative (Negative); Blood,Urine Negative (Negative); Color,Urine Light Yellow; Glucose,Urine (UA) 4+ (Negative); Ketones,Urine Negative (Negative); Leukocyte Esterase,Urine Negative (Negative); Nitrite,Urine Negative (Negative); PH, Urine 6.5 (5.0-8.0); Protein,Urine Trace (Negative); Specific Gravity,Urine 1.013 (1.001-1.035); Urobilinogen,Urine <2.0 mg/dL (<2.0)
--- NOTE | 2019-03-03 18:37 | ED ---
Abdominal Pain HPI - General Chief Complaint: Abdominal Pain Stated Complaint: Abd pain Source: patient Mode of arrival: ambulatory Limitations: no limitations - History of Present Illness Initial Comments: 48-year-old female with past medical history of recent diagnosis of left-sided ovarian mass presenting today for chief complaint of left pelvic pain. She states she has had pelvic pain on and off for the past few months. She states she was diagnosed with ovarian masses following [employer]ARD [employer]TER. States pain comes and goes and is sharp in nature. She states she is awaiting a CEA 125. Patient states the pain increased today and she presented for dilation. Patient denies nausea vomiting diarrhea fever chills night sweats chest pain shortness of breath. Patient states she takes [place] at home and has not been helping. Patient presents for pain management. Patient states she believes this is related to the left sided ovarian mass. Remaining ROS (-). - Related Data Home Medications Medication Instructions Recorded Confirmed Fenofibrate [Lofibra] 160 mg PO DAILY 03/02/15 03/03/19 Pregabalin [Lyrica] 150 mg PO BID 06/25/15 03/03/19 Cholecalciferol [Vitamin D3 (25 5,000 unit PO DAILY 01/15/16 03/03/19 Mcg = 1000 Iu)] Folic Acid 2 mg PO DAILY 03/24/16 03/03/19 Clopidogrel [Plavix] 75 mg PO DAILY 07/30/16 03/03/19 lamoTRIgine 200 mg PO BID 07/30/16 03/03/19 Albuterol Nebulized [Ventolin 2.5 mg INHALATION RT-QID PRN 03/27/17 03/03/19 Nebulized] Magnesium Gluconate [Magonate] 500 mg PO DAILY 03/27/17 03/03/19 Aspirin [Adult Low Dose Aspirin EC] 81 mg PO DAILY 11/26/17 03/03/19 Atorvastatin [Lipitor] 80 mg PO DAILY 11/26/17 03/03/19 Enalapril [Vasotec] 10 mg PO BID 11/26/17 03/03/19 Nitroglycerin Sl Tabs [Nitrostat] 0.4 mg SUBLINGUAL Q5M PRN 11/26/17 03/03/19 DULoxetine HCL [Cymbalta] 60 mg PO DAILY 08/25/18 03/03/19 ALPRAZolam [Xanax] 1 mg PO HS 11/12/18 05/07/19 Hydrocodone/Acetaminophen [[place] 1 tab PO HS 09/08/18 03/03/19 7.5-325] Isosorbide Mononitrate ER [Imdur] 60 mg PO DAILY 09/08/18 03/03/19 Thiamine [Vitamin B-1] 100 mg PO DAILY 09/08/18 03/03/19 Carvedilol [Coreg] 25 mg PO BID 01/22/19 03/03/19 Insulin Lispro [Admelog] 5 unit SQ HS 01/22/19 03/03/19 Insulin Lispro [Admelog] 11 unit SQ AC-BRKFST 01/22/19 03/03/19 Insulin Lispro [Admelog] 22 unit SQ AC-LUNCH 01/22/19 03/03/19 Insulin Lispro [Admelog] 25 unit SQ AC-SUPPER 01/22/19 03/03/19 Insulin Lispro [Admelog] See Protocol SQ ACHS 01/22/19 03/03/19 Previous Rx's Medication Instructions Recorded Citalopram Hydrobromide [CeleXA] 40 mg PO DAILY #1 tab 03/10/15 Insulin Glargine [Lantus] 60 unit SQ DAILY #0 09/09/18 Pantoprazole [Protonix] 40 mg PO AC-BRKFST #30 tablet. 09/09/18 metFORMIN HCL 1,000 mg PO BID #0 09/09/18 Allergies Allergy/AdvReac Type Severity Reaction Status Date / Time Fish Containing Products Allergy Unknown Verified 03/03/19 15:22 Iodinated Contrast- Oral and Allergy throat Verified 03/03/19 15:22 IV Dye swelling [Iodinated Contrast Media - IV Dye] Sulfa (Sulfonamide Allergy throat Verified 03/03/19 15:22 Antibiotics) swelling sulfamethoxazole Allergy throat Verified 03/03/19 15:22 [From ] swelling trimethoprim [From ] Allergy throat Verified 03/03/19 15:22 swelling NUTS Allergy Unknown Uncoded 03/03/19 14:58 Review of Systems ROS Statement: Those systems with pertinent positive or pertinent negative responses have been documented in the HPI. ROS Other: All systems not noted in ROS Statement are negative. 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 andper pt's spouse- slight foot drag when tired.diabetes mellitus insulin-dependent, hypertension, hyperlipidemia, fibromyalgia, obstructive sleep apnea, MS, questionable hypercoagulable disease, anxiety, depression, obesity, ovarian cyst, MIX5 Last Myocardial Infarction Date:: unk History of Any Multi-Drug Resistant Organisms: None Reported Past Surgical History: Section, Cholecystectomy, Heart Catheterization With Stent, Hysterectomy, Tubal Ligation, Uterine Ablation Additional Past Surgical History / Comment(s): vein stripping right leg, radio frequency ablation of right back-02/22/2015, four stents on 04/03/16 and one on march 05 Past Anesthesia/Blood Transfusion Reactions: Motion Sickness Additional Past Anesthesia/Blood Transfusion Reaction / Comment(s): mild clausterphobia Date of Last Stent Placement:: 2003 Past Psychological History: Anxiety, Depression Smoking Status: Current every day smoker Past Alcohol Use History: None Reported Past Drug Use History: None Reported - Past Family History Father Family Medical History: Congestive Heart Failure (CHF), Coronary Artery Disease (CAD), Diabetes Mellitus Mother Family Medical History: Cancer, Hypertension, Respiratory Disorder Additional Family Medical History / Comment(s): emphysema, colon CA General Exam - General Exam Comments Initial Comments: General: The patient is awake and alert, in no distress, and does not appear acutely ill. Eye: Pupils are equal, round and reactive to light, extra-ocular movements are intact. No nystagmus. There is normal conjunctiva bilaterally. No signs of icterus. Ears, nose, mouth and throat: There are moist mucous membranes and no oral lesions. Neck: The neck is supple, there is no tenderness or JVD. Cardiovascular: There is a regular rate and rhythm. No murmur, rub or gallop is appreciated. Respiratory: Lungs are clear to auscultation, respirations are non-labored, breath sounds are equal. No wheezes, stridor, rales, or rhonchi. Gastrointestinal: Soft, non-distended, left lowe pelvic pain to deep palpation abdomen without masses or organomegaly noted. There is no rebound or guarding present. Musculoskeletal: Normal ROM, no tenderness. Strength 5/5. Sensation intact. Pulses equal bilaterally 2+. Neurological: A&O x 3. CN II-XII intact, There are no obvious motor or sensory deficits. Coordination appears grossly intact. Speech is normal. Skin: Skin is warm and dry and no rashes or lesions are noted. Psychiatric: Cooperative, appropriate mood & affect, normal judgment. Limitations: no limitations Course Vital Signs 03/03/19 03/03/19 03/03/19 14:56 15:30 17:30 Temperature 98.3 F Pulse Rate 71 77 62 Respiratory 20 20 18 Rate Blood Pressure 181/94 165/99 204/101 O2 Sat by Pulse 99 99 96 Oximetry 03/03/19 03/03/19 18:00 18:30 Temperature Pulse Rate 76 71 Respiratory 20 20 Rate Blood Pressure 177/74 168/56 O2 Sat by Pulse 99 Oximetry Medical Decision Making - Medical Decision Making 48-year-old female presenting today for chief complaint of left lower pelvic pain. Patient states she is recently diagnosed with left ovarian mass. Patient's history of hysterectomy however this was partial not total. Patient states pain increased today however it has been ongoing on and off for weeks. Patient denies vaginal bleeding. Patient denies fever or other symptoms. Patient denies any upper abdominal pain or left-sided abdominal pain. Patient states it feels like it is in the pelvis. Patient is tender in the left pelvic region on examination no rigidity no guarding. Patient shows no signs of peritoneal irritation. She laboratory studies reveal elevated blood glucose. There is no evidence of DKA. Patient given SQ insulin regular. Pain had subsided upon reevaluation. At this time feel patient is symptom-free, with stable laboratory vital signs. The patient still for discharge. Patient does not take blood pressure medications today she is instructed to do so and follow up with primary care provider. Discussed case with attending provider Dr. Stein was agreeable to plan discharge today. - Lab Data Result diagrams: 03/03/19 16:30 03/03/19 16:30 Lab Results 03/03/19 03/03/19 03/03/19 Range/Units 16:28 16:30 16:30 WBC 9.3 (3.8-10.6) k/uL RBC 4.94 (3.80-5.40) m/uL Hgb 15.7 (11.4-16.0) gm/dL Hct 46.7 H (34.0-46.0) % MCV 94.5 (80.0-100.0) fL MCH 31.8 (25.0-35.0) pg MCHC 33.6 (31.0-37.0) g/dL RDW 13.7 (11.5-15.5) % Plt Count 208 (150-450) k/uL Neutrophils % 65 % Lymphocytes % 28 % Monocytes % 4 % Eosinophils % 1 % Basophils % 1 % Neutrophils # 6.0 (1.3-7.7) k/uL Lymphocytes # 2.6 (1.0-4.8) k/uL Monocytes # 0.4 (0-1.0) k/uL Eosinophils # 0.1 (0-0.7) k/uL Basophils # 0.1 (0-0.2) k/uL Sodium 136 L (137-145) mmol/L Potassium 4.3 (3.5-5.1) mmol/L Chloride 101 (98-107) mmol/L Carbon Dioxide 24 (22-30) mmol/L Anion Gap 11 mmol/L BUN 11 (7-17) mg/dL Creatinine 0.53 (0.52-1.04) mg/dL Est GFR (CKD-EPI)AfAm >90 (>60 ml/min/1.73 sqM) Est GFR (CKD-EPI)NonAf >90 (>60 ml/min/1.73 sqM) Glucose 372 H (74-99) mg/dL Plasma Lactic Acid Faheem (0.7-2.0) mmol/L Calcium 10.1 (8.4-10.2) mg/dL Total Bilirubin 0.7 (0.2-1.3) mg/dL AST 14 (14-36) U/L ALT 26 (9-52) U/L Alkaline Phosphatase 128 H (38-126) U/L Total Protein 7.1 (6.3-8.2) g/dL Albumin 4.5 (3.5-5.0) g/dL Urine Color Urine Appearance (Clear) Urine pH (5.0-8.0) Ur Specific [place] (1.001-1.035) Urine Protein (Negative) Urine Glucose (UA) (Negative) Urine Ketones (Negative) Urine Blood (Negative) Urine Nitrite (Negative) Urine Bilirubin (Negative) Urine Urobilinogen (<2.0) mg/dL Ur Leukocyte Esterase (Negative) Acetone, Qual Negative (Negative) 03/03/19 03/03/19 Range/Units 16:30 18:00 WBC (3.8-10.6) k/uL RBC (3.80-5.40) m/uL Hgb (11.4-16.0) gm/dL Hct (34.0-46.0) % MCV (80.0-100.0) fL MCH (25.0-35.0) pg MCHC (31.0-37.0) g/dL RDW (11.5-15.5) % Plt Count (150-450) k/uL Neutrophils % % Lymphocytes % % Monocytes % % Eosinophils % % Basophils % % Neutrophils # (1.3-7.7) k/uL Lymphocytes # (1.0-4.8) k/uL Monocytes # (0-1.0) k/uL Eosinophils # (0-0.7) k/uL Basophils # (0-0.2) k/uL Sodium (137-145) mmol/L Potassium (3.5-5.1) mmol/L Chloride (98-107) mmol/L Carbon Dioxide (22-30) mmol/L Anion Gap mmol/L BUN (7-17) mg/dL Creatinine (0.52-1.04) mg/dL Est GFR (CKD-EPI)AfAm (>60 ml/min/1.73 sqM) Est GFR (CKD-EPI)NonAf (>60 ml/min/1.73 sqM) Glucose (74-99) mg/dL Plasma Lactic Acid Faheem 1.7 (0.7-2.0) mmol/L Calcium (8.4-10.2) mg/dL Total Bilirubin (0.2-1.3) mg/dL AST (14-36) U/L ALT (9-52) U/L Alkaline Phosphatase (38-126) U/L Total Protein (6.3-8.2) g/dL Albumin (3.5-5.0) g/dL Urine Color Light Yellow Urine Appearance Clear (Clear) Urine pH 6.5 (5.0-8.0) Ur Specific [place] 1.013 (1.001-1.035) Urine Protein Trace H (Negative) Urine Glucose (UA) 4+ H (Negative) Urine Ketones Negative (Negative) Urine Blood Negative (Negative) Urine Nitrite Negative (Negative) Urine Bilirubin Negative (Negative) Urine Urobilinogen <2.0 (<2.0) mg/dL Ur Leukocyte Esterase Negative (Negative) Acetone, Qual (Negative) Disposition Clinical Impression: Pelvic pain Disposition: HOME SELF-CARE Condition: Good Additional Instructions: Please use medication as discussed. Please follow-up with family doctor in the next 2 days, and OBGYN as scheduled. Please return to emergency room if the symptoms increase or worsen or for any other concerns. Is patient prescribed a controlled substance at d/c from ED?: No Referrals: Dagmar Hennessy MD [Primary Care Provider] - 1-2 days Time of Disposition: 18:37
[2019-03-03] MEDS ORDERED: MORPHINE SULFATE 2 MG/ML SYRINGE IVP STA (19:02)
[2019-03-03 19:40] VITALS: BP 166/78; PULSE 81; TEMP 97.8
== END 2019-03-03 19:15 | disposition home or self-care (01) ==
LOC: EC 14:52
DX: R10.2 Pelvic and perineal pain (principal); R10.9 Unspecified abdominal pain; N83.201 Unspecified ovarian cyst, right side; N83.202 Unspecified ovarian cyst, left side; E11.9 Type 2 diabetes mellitus without complications; E78.5 Hyperlipidemia, unspecified; I10 Essential (primary) hypertension; I25.2 Old myocardial infarction; I25.10 Atherosclerotic heart disease of native coronary artery without angina pectoris; G47.33 Obstructive sleep apnea (adult) (pediatric); M79.7 Fibromyalgia; F41.9 Anxiety disorder, unspecified; F32.9 Major depressive disorder, single episode, unspecified; F17.200 Nicotine dependence, unspecified, uncomplicated; Z79.82 Long term (current) use of aspirin; Z79.02 Long term (current) use of antithrombotics/antiplatelets; Z79.4 Long term (current) use of insulin; Z79.899 Other long term (current) drug therapy; Z91.013 Allergy to seafood; Z88.2 Allergy status to sulfonamides; Z91.041 Radiographic dye allergy status; Z91.018 Allergy to other foods; Z90.710 Acquired absence of both cervix and uterus; Z90.49 Acquired absence of other specified parts of digestive tract; Z95.5 Presence of coronary angioplasty implant and graft
CPT/HCPCS: 99284; 96374; 96375; 96376; 96361; 36415; 80053; 82009; 83605; 85025; 81003; 93975; 76856; 76830; J2270 ×2; J0360

== ENCOUNTER 2019-06-09 18:12 | Emergency (ER) | payer OTHER ==
[2019-06-09] MEDS ORDERED: SODIUM CHLORIDE 0.9% 500 ML 500 ML IV STA (18:35)
[2019-06-09] MEDS ORDERED: ONDANSETRON 4 MG/2 ML VIAL IVP STA (18:35)
[2019-06-09] MEDS ORDERED: MORPHINE SULFATE 4 MG/ML SYRINGE IV STA (18:35)
[2019-06-09] MEDS ORDERED: diphenhydrAMINE 50 MG/ML 1 ML VIAL IVP STA (18:36)
[2019-06-09] MEDS ORDERED: methylPREDNISolone SOD SUCCI 125 MG/2 ML VIAL IV STA (18:36)
[2019-06-09] MEDS ORDERED: FAMOTIDINE 20 MG/2 ML VIAL IV STA (18:36)
--- NOTE | 2019-06-09 18:53 | ED ---
Abdominal Pain HPI - General Chief Complaint: Abdominal Pain Stated Complaint: Female /pain Time Seen by Provider: 06/09/19 18:23 Source: patient Mode of arrival: ambulatory Limitations: no limitations - History of Present Illness Initial Comments: 48-year-old female patient who is status post removal of ovaries and fallopian tubes 2 weeks ago presents to the emergency department today for evaluation of periumbilical abdominal pain. Patient states that for the last 3 days she has been having increasing pain over the periumbilical region. Patient states this started when she turned over in bed. Patient states the pain is radiating through to her back. States she is having hot and cold flashes however is menopausal. States that she has been nauseated since her procedure. She denies any constipation with states she has been having frequent loose bowel movements after taking milk of magnesia. She denies any hematochezia or melena with this. Patient has had several other abdominal surgeries including and hysterectomy. Patient denies any pain or drainage around her incision sites. Patient denies any recent rash, shortness breath, chest pain, nausea, vomiting, diarrhea, constipation, back pain, numbness, tingling, dizziness, weakness, hematuria, dysuria, urinary urgency, urinary frequency, headache, visual changes, or any other complaints. - Related Data Home Medications Medication Instructions Recorded Confirmed Fenofibrate [Lofibra] 160 mg PO DAILY 03/02/15 03/03/19 Pregabalin [Lyrica] 150 mg PO BID 06/25/15 03/03/19 Cholecalciferol [Vitamin D3 (25 5,000 unit PO DAILY 01/15/16 03/03/19 Mcg = 1000 Iu)] Folic Acid 2 mg PO DAILY 03/24/16 03/03/19 Clopidogrel [Plavix] 75 mg PO DAILY 07/30/16 03/03/19 lamoTRIgine 200 mg PO BID 07/30/16 03/03/19 Albuterol Nebulized [Ventolin 2.5 mg INHALATION RT-QID PRN 03/27/17 03/03/19 Nebulized] Magnesium Gluconate [Magonate] 500 mg PO DAILY 03/27/17 03/03/19 Aspirin [Adult Low Dose Aspirin EC] 81 mg PO DAILY 11/26/17 03/03/19 Atorvastatin [Lipitor] 80 mg PO DAILY 11/26/17 03/03/19 Enalapril [Vasotec] 10 mg PO BID 11/26/17 03/03/19 Nitroglycerin Sl Tabs [Nitrostat] 0.4 mg SUBLINGUAL Q5M PRN 11/26/17 03/03/19 DULoxetine HCL [Cymbalta] 60 mg PO DAILY 08/25/18 03/03/19 ALPRAZolam [Xanax] 1 mg PO HS 09/08/18 03/03/19 Hydrocodone/Acetaminophen [[place] 1 tab PO HS 09/08/18 03/03/19 7.5-325] Isosorbide Mononitrate ER [Imdur] 60 mg PO DAILY 09/08/18 03/03/19 Thiamine [Vitamin B-1] 100 mg PO DAILY 09/08/18 03/03/19 Carvedilol [Coreg] 25 mg PO BID 01/22/19 03/03/19 Insulin Lispro [Admelog] 5 unit SQ HS 01/22/19 03/03/19 Insulin Lispro [Admelog] 11 unit SQ AC-BRKFST 01/22/19 03/03/19 Insulin Lispro [Admelog] 22 unit SQ AC-LUNCH 01/22/19 03/03/19 Insulin Lispro [Admelog] 25 unit SQ AC-SUPPER 01/22/19 03/03/19 Insulin Lispro [Admelog] See Protocol SQ ACHS 01/22/19 03/03/19 Previous Rx's Medication Instructions Recorded Citalopram Hydrobromide [CeleXA] 40 mg PO DAILY #1 tab 03/10/15 Insulin Glargine [Lantus] 60 unit SQ DAILY #0 09/09/18 Pantoprazole [Protonix] 40 mg PO AC-BRKFST #30 tablet. 09/09/18 metFORMIN HCL 1,000 mg PO BID #0 09/09/18 Allergies Allergy/AdvReac Type Severity Reaction Status Date / Time Fish Containing Products Allergy Unknown Verified 06/09/19 18:18 Iodinated Contrast- Oral and Allergy throat Verified 06/09/19 18:18 IV Dye swelling [Iodinated Contrast Media - IV Dye] Sulfa (Sulfonamide Allergy throat Verified 06/09/19 18:18 Antibiotics) swelling sulfamethoxazole Allergy throat Verified 06/09/19 18:18 [From ] swelling trimethoprim [From ] Allergy throat Verified 06/09/19 18:18 swelling NUTS Allergy Unknown Uncoded 06/09/19 18:18 Review of Systems ROS Statement: Those systems with pertinent positive or pertinent negative responses have been documented in the HPI. ROS Other: All systems not noted in ROS Statement are negative. 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 andper pt's spouse- slight foot drag when tired.diabetes mellitus insulin-dependent, hypertension, hyperlipidemia, fibromyalgia, obstructive sleep apnea, MS, questionable hypercoagulable disease, anxiety, depression, obesity, ovarian cyst, MIX5 Last Myocardial Infarction Date:: unk History of Any Multi-Drug Resistant Organisms: None Reported Past Surgical History: Section, Cholecystectomy, Heart Catheterization With Stent, Hysterectomy, Tubal Ligation, Uterine Ablation Additional Past Surgical History / Comment(s): vein stripping right leg, radio frequency ablation of right back-02/22/2015, four stents on 04/03/16 and one on march 05 Past Anesthesia/Blood Transfusion Reactions: Motion Sickness Additional Past Anesthesia/Blood Transfusion Reaction / Comment(s): mild clausterphobia Date of Last Stent Placement:: 2003 Past Psychological History: Anxiety, Depression Smoking Status: Current every day smoker Past Alcohol Use History: None Reported Past Drug Use History: None Reported - Past Family History Father Family Medical History: Congestive Heart Failure (CHF), Coronary Artery Disease (CAD), Diabetes Mellitus Mother Family Medical History: Cancer, Hypertension, Respiratory Disorder Additional Family Medical History / Comment(s): emphysema, colon CA General Exam Limitations: no limitations General appearance: alert, in no apparent distress, other (Physical well- developed, well-nourished adult female patient in no acute distress. Vital signs upon presentation are temperature 98.4F, pulse 74, respiration 16, blood pressure 177/98, pulse ox 98% on room air.) Eye exam: Present: normal appearance, PERRL, EOMI. Absent: scleral icterus, conjunctival injection, periorbital swelling ENT exam: Present: normal exam, normal oropharynx, mucous membranes moist Respiratory exam: Present: normal lung sounds bilaterally. Absent: respiratory distress, wheezes, rales, rhonchi, stridor Cardiovascular Exam: Present: regular rate, normal rhythm, normal heart sounds. Absent: systolic murmur, diastolic murmur, rubs, gallop, clicks GI/Abdominal exam: Present: soft, tenderness (Parent periumbilical tenderness), normal bowel sounds, other (Several small incisions, right lower quadrant she does have some mild surrounding erythema and warmth. No drainage.). Absent: distended, guarding, rebound, rigid Neurological exam: Present: alert, oriented X3, CN II-XII intact Psychiatric exam: Present: normal affect, normal mood Skin exam: Present: warm, dry, intact, normal color. Absent: rash Course Vital Signs 06/09/19 06/09/19 06/09/19 18:15 19:14 20:01 Temperature 98.4 F 97.8 F Pulse Rate 74 67 68 Respiratory 16 18 18 Rate Blood Pressure 177/98 176/91 200/96 O2 Sat by Pulse 98 97 97 Oximetry 06/09/19 06/09/19 21:18 22:14 Temperature 98.3 F 97.9 F Pulse Rate 62 66 Respiratory 16 17 Rate Blood Pressure 207/102 196/98 O2 Sat by Pulse 95 93 L Oximetry Medical Decision Making - Medical Decision Making 48-year-old female patient presents to the emergency department today for ev aluation of abdominal pain. She is status post removal of fallopian tubes and ovaries two weeks ago. Physical examination did reveal some mild periumbilical tenderness. Labs reviewed and were unremarkable. CT abdomen and pelvis was obtained and showed no acute abnormalities. I did discuss findings and results with the patient. We did discuss that her CT scan does show excessive colonic stool burden. She has milk of magnesia from her doctor. She is instructed take this as directed. She is instructed to increase fluids. She is instructed to follow-up with her surgeon for recheck as soon as possible. She is instructed to follow-up with her primary care physician for recheck in 1-2 days. Return parameters were discussed in detail. She verbalizes understanding and agrees with this plan. - Lab Data Result diagrams: 06/09/19 18:49 06/09/19 18:49 Lab Results 06/09/19 06/09/19 06/09/19 Range/Units 18:49 18:49 18:49 WBC 8.9 (3.8-10.6) k/uL RBC 4.94 (3.80-5.40) m/uL Hgb 15.7 (11.4-16.0) gm/dL Hct 46.0 (34.0-46.0) % MCV 93.1 (80.0-100.0) fL MCH 31.8 (25.0-35.0) pg MCHC 34.1 (31.0-37.0) g/dL RDW 13.3 (11.5-15.5) % Plt Count 222 (150-450) k/uL Neutrophils % 59 % Lymphocytes % 31 % Monocytes % 3 % Eosinophils % 4 % Basophils % 1 % Neutrophils # 5.3 (1.3-7.7) k/uL Lymphocytes # 2.8 (1.0-4.8) k/uL Monocytes # 0.3 (0-1.0) k/uL Eosinophils # 0.4 (0-0.7) k/uL Basophils # 0.1 (0-0.2) k/uL Sodium 136 L (137-145) mmol/L Potassium 4.2 (3.5-5.1) mmol/L Chloride 101 (98-107) mmol/L Carbon Dioxide 27 (22-30) mmol/L Anion Gap 8 mmol/L BUN 12 (7-17) mg/dL Creatinine 0.59 (0.52-1.04) mg/dL Est GFR (CKD-EPI)AfAm >90 (>60 ml/min/1.73 sqM) Est GFR (CKD-EPI)NonAf >90 (>60 ml/min/1.73 sqM) Glucose 335 H (74-99) mg/dL Plasma Lactic Acid Faheem 1.5 (0.7-2.0) mmol/L Calcium 9.8 (8.4-10.2) mg/dL Total Bilirubin 0.5 (0.2-1.3) mg/dL AST 13 L (14-36) U/L ALT 24 (9-52) U/L Alkaline Phosphatase 163 H (38-126) U/L Total Protein 6.7 (6.3-8.2) g/dL Albumin 4.0 (3.5-5.0) g/dL Amylase 39 (30-110) U/L Lipase 48 (23-300) U/L Urine Color Urine Appearance (Clear) Urine pH (5.0-8.0) Ur Specific [place] (1.001-1.035) Urine Protein (Negative) Urine Glucose (UA) (Negative) Urine Ketones (Negative) Urine Blood (Negative) Urine Nitrite (Negative) Urine Bilirubin (Negative) Urine Urobilinogen (<2.0) mg/dL Ur Leukocyte Esterase (Negative) Urine RBC (0-5) /hpf Urine WBC (0-5) /hpf Ur Squamous Epith Cells (0-4) /hpf Amorphous Sediment (None) /hpf Urine Bacteria (None) /hpf Urine Yeast (Budding) (None) /hpf 06/09/19 Range/Units 19:15 WBC (3.8-10.6) k/uL RBC (3.80-5.40) m/uL Hgb (11.4-16.0) gm/dL Hct (34.0-46.0) % MCV (80.0-100.0) fL MCH (25.0-35.0) pg MCHC (31.0-37.0) g/dL RDW (11.5-15.5) % Plt Count (150-450) k/uL Neutrophils % % Lymphocytes % % Monocytes % % Eosinophils % % Basophils % % Neutrophils # (1.3-7.7) k/uL Lymphocytes # (1.0-4.8) k/uL Monocytes # (0-1.0) k/uL Eosinophils # (0-0.7) k/uL Basophils # (0-0.2) k/uL Sodium (137-145) mmol/L Potassium (3.5-5.1) mmol/L Chloride (98-107) mmol/L Carbon Dioxide (22-30) mmol/L Anion Gap mmol/L BUN (7-17) mg/dL Creatinine (0.52-1.04) mg/dL Est GFR (CKD-EPI)AfAm (>60 ml/min/1.73 sqM) Est GFR (CKD-EPI)NonAf (>60 ml/min/1.73 sqM) Glucose (74-99) mg/dL Plasma Lactic Acid Faheem (0.7-2.0) mmol/L Calcium (8.4-10.2) mg/dL Total Bilirubin (0.2-1.3) mg/dL AST (14-36) U/L ALT (9-52) U/L Alkaline Phosphatase (38-126) U/L Total Protein (6.3-8.2) g/dL Albumin (3.5-5.0) g/dL Amylase (30-110) U/L Lipase (23-300) U/L Urine Color Yellow Urine Appearance Clear (Clear) Urine pH 7.0 (5.0-8.0) Ur Specific [place] 1.031 (1.001-1.035) Urine Protein 2+ H (Negative) Urine Glucose (UA) 4+ H (Negative) Urine Ketones Negative (Negative) Urine Blood Negative (Negative) Urine Nitrite Negative (Negative) Urine Bilirubin Negative (Negative) Urine Urobilinogen <2.0 (<2.0) mg/dL Ur Leukocyte Esterase Negative (Negative) Urine RBC 2 (0-5) /hpf Urine WBC 3 (0-5) /hpf Ur Squamous Epith Cells 1 (0-4) /hpf Amorphous Sediment Rare H (None) /hpf Urine Bacteria Rare H (None) /hpf Urine Yeast (Budding) Few H (None) /hpf - Radiology Data Radiology results: report reviewed, image reviewed CT abdomen and pelvis with contrast was obtained. Report was reviewed in its entirety. Impression by Dr. Martin Simmons shows no definite acute process, excessive colonic stool noted. Mild splenomegaly. Prominent left and right coronary calcifications noted. Disposition Clinical Impression: Abdominal pain Disposition: HOME SELF-CARE Condition: Good Instructions (If sedation given, give patient instructions): Abdominal Pain (ED) Additional Instructions: Increase clear fluids. Follow-up with her primary care physician for recheck in 1-2 days. Follow-up with your surgeon for recheck as soon as possible. Keep a log of your blood pressures to take with you to your next appointment. Return to the emergency department immediately for any new, worsening, or concerning symptoms. Is patient prescribed a controlled substance at d/c from ED?: No Referrals: Dagmar Hennessy MD [Primary Care Provider] - 1-2 days Time of Disposition: 22:35
[2019-06-09 19:04] LABS: Basophils # (A) 0.1 k/uL (0-0.2); Basophils % (A) 1 %; Eosinophils # (A) 0.4 k/uL (0-0.7); Eosinophils % (A) 4 %; HGB 15.7 gm/dL (11.4-16.0); Lymphocytes # (A) 2.8 k/uL (1.0-4.8); Lymphocytes % (A) 31 %; MCH 31.8 pg (25.0-35.0); MCHC 34.1 g/dL (31.0-37.0); MCV 93.1 fL (80.0-100.0); Monocytes # (A) 0.3 k/uL (0-1.0); Monocytes % (A) 3 %; Neutrophils # (A) 5.3 k/uL (1.3-7.7); Neutrophils % (A) 59 %; Platelet Count 222 k/uL (150-450); RBC 4.94 m/uL (3.80-5.40); RDW 13.3 % (11.5-15.5); WBC 8.9 k/uL (3.8-10.6)
[2019-06-09 19:12] LABS: ALT 24 U/L (9-52); AST 13 U/L (14-36); African American GFR (CKD) >90 (>60 ml/min/1.73 sqM); Alkaline Phosphatase 163 U/L (38-126); Amylase 39 U/L (30-110); Anion Gap 8 mmol/L; Blood Urea Nitrogen 12 mg/dL (7-17); Calcium 9.8 mg/dL (8.4-10.2); Carbon Dioxide 27 mmol/L (22-30); Chloride 101 mmol/L (98-107); Glucose 335 mg/dL (74-99); Potassium 4.2 mmol/L (3.5-5.1); Sodium 136 mmol/L (137-145); Total Bilirubin 0.5 mg/dL (0.2-1.3); Total Protein 6.7 g/dL (6.3-8.2)
[2019-06-09 19:39] LABS: Amorphous Sediment,Urine Rare /hpf; Appearance,Urine Clear (Clear); Bacteria,Urine Rare /hpf; Bilirubin,Urine Negative (Negative); Blood,Urine Negative (Negative); Budding Yeast,Urine Few /hpf; Color,Urine Yellow; Glucose,Urine (UA) 4+ (Negative); Ketones,Urine Negative (Negative); Leukocyte Esterase,Urine Negative (Negative); Nitrite,Urine Negative (Negative); Protein,Urine 2+ (Negative); RBC,Urine 2 /hpf (0-5); Specific Gravity,Urine 1.031 (1.001-1.035); Squamous Epithelial Cell,Urine 1 /hpf (0-4); Urobilinogen,Urine <2.0 mg/dL (<2.0); WBC,Urine 3 /hpf (0-5)
[2019-06-09] MEDS ORDERED: SODIUM CHLORIDE 0.9% 1,000 ML IV ONE (19:42)
[2019-06-09] MEDS ORDERED: CARVEDILOL 12.5 MG TAB PO STA (20:05)
[2019-06-09] MEDS ORDERED: LISINOPRIL 20 MG TAB PO STA (20:06)
--- NOTE | 2019-06-09 21:33 | CT ---
EXAMINATION TYPE: CT abdomen pelvis w con DATE OF EXAM: 06/09/2019 COMPARISON: 01/23/2019 HISTORY: abdominal pain 2 weeks post op hysterectomy CT DLP: 1295.5 mGycm Automated exposure control for dose reduction was used. TECHNIQUE: Helical acquisition of images was performed from the lung bases through the pelvis. CONTRAST: Performed without Oral Contrast and with IV Contrast, patient injected with 100 mL of Isovu e 300. FINDINGS: LUNG BASES: No acute findings. However, prominent left and right coronary calcifications are noted. LIVER/GB: No significant abnormality is appreciated. PANCREAS: No significant abnormality is seen. SPLEEN: Spleen measures 16 x 13 x 6 cm. No focal findings. ADRENALS: No significant abnormality is seen. KIDNEYS AND URETERS AND URINARY BLADDER: There are bilateral 1-2 mm nonobstructing renal calcificatio ns. Otherwise, the kidneys and ureters and bladder are unremarkable. FREE AIR: No free air is visualized. RETROPERITONEAL ADENOPATHY: None visualized REPRODUCTIVE ORGANS: No significant abnormality is seen PELVIC ADENOPATHY: None visualized. OSSEOUS STRUCTURES: No significant abnormality is seen. BOWEL: No acute findings, but abundant volume of stool is seen throughout the colon. OTHER: No acute vascular findings. IMPRESSION: 1. No definite acute process, though excessive colonic stool noted. 2. Mild splenomegaly. 3. Prominent left and right coronary calcifications noted.
[2019-06-09 22:15] VITALS: BP 196/98; PULSE 66; RESP 17; TEMP 97.9
== END 2019-06-09 22:53 | disposition home or self-care (01) ==
LOC: EC 18:12
DX: R10.33 Periumbilical pain (principal); R10.815 Periumbilic abdominal tenderness; E11.9 Type 2 diabetes mellitus without complications; E78.5 Hyperlipidemia, unspecified; I10 Essential (primary) hypertension; I25.2 Old myocardial infarction; I25.10 Atherosclerotic heart disease of native coronary artery without angina pectoris; G47.33 Obstructive sleep apnea (adult) (pediatric); F41.9 Anxiety disorder, unspecified; F32.9 Major depressive disorder, single episode, unspecified; E66.9 Obesity, unspecified; Z68.31 Body mass index [BMI] 31.0-31.9, adult; F17.200 Nicotine dependence, unspecified, uncomplicated; Z79.02 Long term (current) use of antithrombotics/antiplatelets; Z79.4 Long term (current) use of insulin; Z79.82 Long term (current) use of aspirin; Z79.899 Other long term (current) drug therapy; Z91.013 Allergy to seafood; Z91.041 Radiographic dye allergy status; Z88.1 Allergy status to other antibiotic agents; Z88.2 Allergy status to sulfonamides; Z91.018 Allergy to other foods; Z95.5 Presence of coronary angioplasty implant and graft; Z85.41 Personal history of malignant neoplasm of cervix uteri; Z90.710 Acquired absence of both cervix and uterus; Z86.73 Personal history of transient ischemic attack (TIA), and cerebral infarction without residual deficits
CPT/HCPCS: 36415; 80053; 82150; 83605; 83690; 85025; 81001; 74177; 99284; 96374; 96375 ×4; 96361; J2270; J1200; J2930; J2405; Q9967

== ENCOUNTER 2019-06-23 17:29 | Emergency (ER) | payer OTHER ==
[2019-06-23] MEDS ORDERED: FAMOTIDINE 20 MG/2 ML VIAL IV STA (17:37)
[2019-06-23] MEDS ORDERED: methylPREDNISolone SOD SUCCI 125 MG/2 ML VIAL IV STA (17:37)
[2019-06-23] MEDS ORDERED: diphenhydrAMINE 50 MG/ML 1 ML VIAL IVP STA (17:37)
[2019-06-23 18:02] LABS: Basophils # (A) 0.1 k/uL (0-0.2); Basophils % (A) 1 %; Eosinophils # (A) 0.2 k/uL (0-0.7); Eosinophils % (A) 3 %; HCT 44.8 % (34.0-46.0); HGB 15.6 gm/dL (11.4-16.0); Lymphocytes # (A) 2.7 k/uL (1.0-4.8); Lymphocytes % (A) 34 %; MCH 32.1 pg (25.0-35.0); MCHC 34.7 g/dL (31.0-37.0); MCV 92.5 fL (80.0-100.0); Mean Platelet Volume 7.9; Monocytes # (A) 0.3 k/uL (0-1.0); Monocytes % (A) 4 %; Neutrophils # (A) 4.6 k/uL (1.3-7.7); Neutrophils % (A) 58 %; Platelet Count 189 k/uL (150-450); RBC 4.85 m/uL (3.80-5.40); RDW 15.1 % (11.5-15.5)
--- NOTE | 2019-06-23 18:08 | ED ---
General Adult HPI - General Stated complaint: Stroke symptoms Time Seen by Provider: 06/23/19 17:31 Source: patient, EMS, RN notes reviewed Mode of arrival: EMS Limitations: no limitations - History of Present Illness Initial comments: Patient is a pleasant 48-year-old female presenting to the emergency department with concerns for possible stroke. Patient has had 3 previous strokes. Patient took a nap around 2:00 and that was last known well. Patient complains of on sensation of her right face and difficulty walking. Patient originally denied any right arm weakness than later stated that her arm is actually weaker than normal. No headache or pain. Patient denies any confusion or speech problems. Patient did have surgery for ovarian cancer 6 weeks ago. Patient did have her ovaries and tubes removed. Patient had previous hysterectomy. Last stroke was approximately one year ago. - Related Data Home Medications Medication Instructions Recorded Confirmed Fenofibrate [Lofibra] 160 mg PO DAILY 03/02/15 06/23/19 Pregabalin [Lyrica] 150 mg PO BID 06/25/15 06/23/19 Cholecalciferol [Vitamin D3 (25 5,000 unit PO DAILY 01/15/16 06/23/19 Mcg = 1000 Iu)] Folic Acid 2 mg PO DAILY 03/24/16 06/23/19 lamoTRIgine 200 mg PO BID 07/30/16 06/23/19 Albuterol Nebulized [Ventolin 2.5 mg INHALATION RT-QID PRN 03/27/17 06/23/19 Nebulized] Magnesium Gluconate [Magonate] 500 mg PO DAILY 03/27/17 06/23/19 Aspirin [Adult Low Dose Aspirin EC] 81 mg PO DAILY 11/26/17 06/23/19 Atorvastatin [Lipitor] 80 mg PO DAILY 11/26/17 06/23/19 Enalapril [Vasotec] 10 mg PO BID 11/26/17 06/23/19 Nitroglycerin Sl Tabs [Nitrostat] 0.4 mg SUBLINGUAL Q5M PRN 11/26/17 06/23/19 DULoxetine HCL [Cymbalta] 60 mg PO DAILY 08/25/18 06/23/19 ALPRAZolam [Xanax] 1 mg PO HS 09/08/18 06/23/19 Hydrocodone/Acetaminophen [[place] 1 tab PO HS 09/08/18 06/23/19 7.5-325] Isosorbide Mononitrate ER [Imdur] 60 mg PO DAILY 09/08/18 06/23/19 Carvedilol [Coreg] 25 mg PO BID 01/22/19 06/23/19 Insulin Lispro [Admelog] 5 unit SQ HS 01/22/19 06/23/19 Insulin Lispro [Admelog] 11 unit SQ AC-BRKFST 01/22/19 06/23/19 Insulin Lispro [Admelog] 22 unit SQ AC-LUNCH 01/22/19 06/23/19 Insulin Lispro [Admelog] 25 unit SQ AC-SUPPER 01/22/19 06/23/19 Insulin Lispro [Admelog] See Protocol SQ ACHS 01/22/19 06/23/19 Cephalexin [Keflex] 500 mg PO BID 06/23/19 06/23/19 Ondansetron [Zofran] 4 mg PO TID PRN 06/23/19 06/23/19 Vitamin B Complex 1 cap PO DAILY 06/23/19 06/23/19 Previous Rx's Medication Instructions Recorded Citalopram Hydrobromide [CeleXA] 40 mg PO DAILY #1 tab 03/10/15 Insulin Glargine [Lantus] 60 unit SQ DAILY #0 09/09/18 Pantoprazole [Protonix] 40 mg PO AC-BRKFST #30 tablet. 09/09/18 metFORMIN HCL 1,000 mg PO BID #0 09/09/18 Allergies Allergy/AdvReac Type Severity Reaction Status Date / Time Fish Containing Products Allergy Unknown Verified 06/23/19 18:53 Iodinated Contrast- Oral and Allergy throat Verified 06/23/19 18:53 IV Dye swelling [Iodinated Contrast Media - IV Dye] Sulfa (Sulfonamide Allergy throat Verified 06/23/19 18:53 Antibiotics) swelling sulfamethoxazole Allergy throat Verified 06/23/19 18:53 [From ] swelling trimethoprim [From ] Allergy throat Verified 06/23/19 18:53 swelling NUTS Allergy Unknown Uncoded 06/23/19 18:53 Review of Systems ROS Statement: Those systems with pertinent positive or pertinent negative responses have been documented in the HPI. ROS Other: All systems not noted in ROS Statement are negative. Constitutional: Denies: fever Eyes: Denies: eye pain ENT: Denies: ear pain Respiratory: Denies: cough Cardiovascular: Denies: chest pain Endocrine: Denies: fatigue Gastrointestinal: Denies: abdominal pain Genitourinary: Denies: dysuria Musculoskeletal: Denies: back pain Skin: Denies: rash Neurological: Reports: as per HPI, weakness, paresthesias, abnormal gait. 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 andper pt's spouse- slight foot drag when tired.diabetes mellitus insulin-dependent, hy pertension, hyperlipidemia, fibromyalgia, obstructive sleep apnea, MS, questionable hypercoagulable disease, anxiety, depression, obesity, ovarian cyst, MIX5 Last Myocardial Infarction Date:: unk History of Any Multi-Drug Resistant Organisms: None Reported Past Surgical History: Section, Cholecystectomy, Heart Catheterization With Stent, Hysterectomy, Tubal Ligation, Uterine Ablation Additional Past Surgical History / Comment(s): vein stripping right leg, radio frequency ablation of right back-02/22/2015, four stents on 04/03/16 and one on march 05 Past Anesthesia/Blood Transfusion Reactions: Motion Sickness Additional Past Anesthesia/Blood Transfusion Reaction / Comment(s): mild clausterphobia Date of Last Stent Placement:: 2003 Past Psychological History: Anxiety, Depression Smoking Status: Current every day smoker Past Alcohol Use History: None Reported Past Drug Use History: None Reported - Past Family History Father Family Medical History: Congestive Heart Failure (CHF), Coronary Artery Disease (CAD), Diabetes Mellitus Mother Family Medical History: Cancer, Hypertension, Respiratory Disorder Additional Family Medical History / Comment(s): emphysema, colon CA General Exam Limitations: no limitations General appearance: alert, in no apparent distress Head exam: Present: atraumatic Eye exam: Present: normal appearance, PERRL, EOMI ENT exam: Present: normal oropharynx Neck exam: Present: normal inspection Respiratory exam: Present: normal lung sounds bilaterally Cardiovascular Exam: Present: regular rate, normal rhythm GI/Abdominal exam: Present: soft. Absent: tenderness Extremities exam: Present: normal inspection Neurological exam: Present: alert, oriented X3 Expanded Neurological exam: Present: protecting the airway Patient oriented to: Present: person, place, time Speech: Present: fluid speech Cranial nerves: EOM's Intact: Normal, Facial Sensation: Abnormal Right Sensory exam: Upper Extremity Light Touch: Normal, Lower Extremity Light Touch: Normal Motor strength exam: RUE: 0, LUE: 5, RLE: 2/1, LLE: 5 Eye Response: (4) open spontaneously Motor Response: (6) obeys commands Verbal Response: (5) oriented Psychiatric exam: Present: normal affect, normal mood Skin exam: Present: normal color Course Vital Signs 06/23/19 06/23/19 06/23/19 17:30 17:45 18:00 Temperature 98.3 F Pulse Rate 63 60 67 Respiratory 16 18 18 Rate Blood Pressure 199/90 189/90 191/99 O2 Sat by Pulse 96 99 99 Oximetry 06/23/19 19:00 Temperature Pulse Rate 61 Respiratory 14 Rate Blood Pressure 199/97 O2 Sat by Pulse 95 Oximetry - Reevaluation(s) Reevaluation #1: 06/23/19 17:53 Case was discussed with Dr. Alonso, who will review the films. Patient is not felt to be a TPA candidate secondary to last known well 2 PM. No addition patient does have recent surgery and diagnosis of questionable metastatic ovarian cancer. Surgery was 6 weeks ago. Patient does not qualify for 4.5 hour window secondary to history of both diabetes and stroke based on hospital guidelines. EKG Findings - EKG Comments: EKG Findings:: Normal sinus rhythm 64. ID 168. QRS 146. QT 436. QTc 449. Left axis. Left bundle branch block. No acute ST change. Medical Decision Making - Medical Decision Making Patient reevaluated and slightly improved. Patient is able to move her toes mo re than previously. Patient updated on results and plan. Case was discussed in detail with Dr. Sanchez, who will admit For Dr. gee. - Lab Data Result diagrams: 06/23/19 17:48 06/23/19 17:48 Lab Results 06/23/19 06/23/19 06/23/19 Range/Units 17:48 17:48 17:48 WBC 8.0 (3.8-10.6) k/uL RBC 4.85 (3.80-5.40) m/uL Hgb 15.6 (11.4-16.0) gm/dL Hct 44.8 (34.0-46.0) % MCV 92.5 (80.0-100.0) fL MCH 32.1 (25.0-35.0) pg MCHC 34.7 (31.0-37.0) g/dL RDW 15.1 (11.5-15.5) % Plt Count 189 (150-450) k/uL Neutrophils % 58 % Lymphocytes % 34 % Monocytes % 4 % Eosinophils % 3 % Basophils % 1 % Neutrophils # 4.6 (1.3-7.7) k/uL Lymphocytes # 2.7 (1.0-4.8) k/uL Monocytes # 0.3 (0-1.0) k/uL Eosinophils # 0.2 (0-0.7) k/uL Basophils # 0.1 (0-0.2) k/uL PT 10.7 (9.0-12.0) sec INR 1.0 (<1.2) APTT 31.5 H (22.0-30.0) sec Sodium 136 L (137-145) mmol/L Potassium 4.5 (3.5-5.1) mmol/L Chloride 101 (98-107) mmol/L Carbon Dioxide 24 (22-30) mmol/L Anion Gap 11 mmol/L BUN 18 H (7-17) mg/dL Creatinine 0.59 (0.52-1.04) mg/dL Est GFR (CKD-EPI)AfAm >90 (>60 ml/min/1.73 sqM) Est GFR (CKD-EPI)NonAf >90 (>60 ml/min/1.73 sqM) Glucose 402 H (74-99) mg/dL Calcium 10.1 (8.4-10.2) mg/dL Total Bilirubin 0.6 (0.2-1.3) mg/dL AST 21 (14-36) U/L ALT 31 (9-52) U/L Alkaline Phosphatase 152 H (38-126) U/L Troponin I (0.000-0.034) ng/mL Total Protein 7.1 (6.3-8.2) g/dL Albumin 4.4 (3.5-5.0) g/dL 06/23/19 Range/Units 17:48 WBC (3.8-10.6) k/uL RBC (3.80-5.40) m/uL Hgb (11.4-16.0) gm/dL Hct (34.0-46.0) % MCV (80.0-100.0) fL MCH (25.0-35.0) pg MCHC (31.0-37.0) g/dL RDW (11.5-15.5) % Plt Count (150-450) k/uL Neutrophils % % Lymphocytes % % Monocytes % % Eosinophils % % Basophils % % Neutrophils # (1.3-7.7) k/uL Lymphocytes # (1.0-4.8) k/uL Monocytes # (0-1.0) k/uL Eosinophils # (0-0.7) k/uL Basophils # (0-0.2) k/uL PT (9.0-12.0) sec INR (<1.2) APTT (22.0-30.0) sec Sodium (137-145) mmol/L Potassium (3.5-5.1) mmol/L Chloride (98-107) mmol/L Carbon Dioxide (22-30) mmol/L Anion Gap mmol/L BUN (7-17) mg/dL Creatinine (0.52-1.04) mg/dL Est GFR (CKD-EPI)AfAm (>60 ml/min/1.73 sqM) Est GFR (CKD-EPI)NonAf (>60 ml/min/1.73 sqM) Glucose (74-99) mg/dL Calcium (8.4-10.2) mg/dL Total Bilirubin (0.2-1.3) mg/dL AST (14-36) U/L ALT (9-52) U/L Alkaline Phosphatase (38-126) U/L Troponin I <0.012 (0.000-0.034) ng/mL Total Protein (6.3-8.2) g/dL Albumin (3.5-5.0) g/dL - Radiology Data Radiology results: report reviewed (T scan of the brain and CTA show no acute process) Disposition Clinical Impression: Cerebrovascular accident Disposition: ADMITTED IP TO THIS [facility] Is patient prescribed a controlled substance at d/c from ED?: No Referrals: Dagmar Hennessy MD [Primary Care Provider] - 1-2 days Decision Time: 19:27
[2019-06-23 18:11] LABS: Partial Thromboplastin Time 31.5 sec (22.0-30.0); Prothrombin Time 10.7 sec (9.0-12.0)
[2019-06-23 18:16] LABS: ALT 31 U/L (9-52); AST 21 U/L (14-36); African American GFR (CKD) >90 (>60 ml/min/1.73 sqM); Albumin 4.4 g/dL (3.5-5.0); Alkaline Phosphatase 152 U/L (38-126); Anion Gap 11 mmol/L; Blood Urea Nitrogen 18 mg/dL (7-17); Calcium 10.1 mg/dL (8.4-10.2); Carbon Dioxide 24 mmol/L (22-30); Chloride 101 mmol/L (98-107); Glucose 402 mg/dL (74-99); Potassium 4.5 mmol/L (3.5-5.1); Sodium 136 mmol/L (137-145); Total Bilirubin 0.6 mg/dL (0.2-1.3); Total Protein 7.1 g/dL (6.3-8.2)
--- NOTE | 2019-06-23 18:34 | CT ---
EXAMINATION: CT brain wo con for TPA DATE AND TIME: 06/23/2019 6:02 PM CLINICAL INDICATION: PHH; Neuro Deficits TECHNIQUE: Standard departmental protocol.; 1088; COMPARISON: 11/25/2016 FINDINGS: The calvarium is intact. There is no intracranial hemorrhage. There is no intracranial mass or mass effect. No definite new intra-axial attenuation defect. The previously seen left estevez radiata low attenuati on is redemonstrated, lateral to the left lateral ventricle. The paranasal sinuses, middle ear cavities, and mastoid sinus air cells are clear. The orbits are unremarkable. IMPRESSION: No acute CT process.
--- NOTE | 2019-06-23 18:39 | CT ---
EXAMINATION TYPE: CT angio head neck contrast and with 3-D reconstruction renderings. DATE OF EXAM: 06/23/2019 HISTORY: Right sided weakness COMPARISON: CT 11/25/2016 CT DLP: 566.5 mGycm. Automated Exposure Control for Dose Reduction was Utilized. TECHNIQUE: CTA scan of the neck is performed with IV Contrast, patient injected with 50 mL of Isovue 370, axial images are obtained, coronal and sagittal reformatted images are reviewed. Three-D recons tructed images are created on an independent workstation and reviewed. FINDINGS: The bilateral carotid and vertebral arterial systems are patent throughout their cervical c ourse, without hemodynamically significant stenoses. There is prominent left ICA tortuosity. Intracranial anterior circulation and posterior circulation are widely patent and symmetric, without significant stenoses. The dural venous sinuses and the venous structures of the neck are unremarkable. No incidental intracranial or soft tissue neck findings. No focal skeletal lesions. IMPRESSION: No significant abnormality is seen.
[2019-06-23] MEDS ORDERED: ASPIRIN 325 MG TAB PO STA (19:27)
[2019-06-23] MEDS ORDERED: SODIUM CHLORIDE 0.9% 1,000 ML IV SCH (19:30)
--- NOTE | 2019-06-23 20:16 | XR ---
EXAMINATION: XR chest 1V portable DATE AND TIME: 06/23/2019 7:28 PM CLINICAL INDICATION: PHH; altered mental status TECHNIQUE: AP upright portable COMPARISON: 09/08/2018 FINDINGS: The lungs are clear. The pleural spaces are negative. The cardiac silhouette is not enlarged. The remainder of the mediastinal silhouette is unremarkable. The skeletal structures and soft tissues are negative for acute findings. IMPRESSION: NO ACUTE PROCESS.
--- NOTE | 2019-06-23 20:29 | P.CNNES ---
History of Present Illness Consult date: 06/23/19 Requesting physician: Myron Saeed Reason for Consult: CVA Chief complaint: worsened right-sided weakness History of Present Illness: This is a 48 RH female h/o copious vascular risk factors including suboptimally controlled HTN, DMII (most recent hga1c 12) and HL. Patient states she had 4 strokes since 02/2015. All affected her right arm and leg with motor and sensory symptoms. She did develop spasticity that has not been successfully treated despite muscle relaxants and Botox that she gets at Dr. [facility]. Also h/o ovarian cancer s/p surgery 6 weeks ago. Her last MRI Brain done within our system was on 06/27/17 that showed severe vascular burden, almost confluent in the subcortical white matter extending into the nieves. Her LKN today was at 2pm. She presented with worsening right-sided numbness and weakness. Teleneurology was consulted and did not deem her an acute intervention candidate based on ECASSIII exclusion of DM+h/o CVA. t-PA was not administered. CTA did not show LVO for acute endovascular intervention. Her BS in the ER was 402. Patient was once on DAPT, but she recently saw her shipping services sales representative who told her her heart was doing better and that she could go off of Plavix, and she did. She does remain compliant with aspirin monotherapy. Review of Systems 14-point ROS performed and as per HPI. Neurologically, patient denies decreased level or loss of consciousness, headache, seizure, changes in vision, diplopia, amaurosis, changes in hearing, facial droop, ptosis, vertigo, hearing loss, tinnitus, dysarthria, dysphagia, aphasia, other focal numbness/weakness not mentioned above, tremors, bowel/bladder incontinence or ataxia. 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 andper p t's spouse- slight foot drag when tired.diabetes mellitus insulin-dependent, hypertension, hyperlipidemia, fibromyalgia, obstructive sleep apnea, MS, questionable hypercoagulable disease, anxiety, depression, obesity, ovarian cyst, MIX5 Last Myocardial Infarction Date:: unk History of Any Multi-Drug Resistant Organisms: None Reported Past Surgical History: Section, Cholecystectomy, Heart Catheterization With Stent, Hysterectomy, Tubal Ligation, Uterine Ablation Additional Past Surgical History / Comment(s): vein stripping right leg, radio frequency ablation of right back-02/22/2015, four stents on 04/03/16 and one on march 05 Past Anesthesia/Blood Transfusion Reactions: Motion Sickness Additional Past Anesthesia/Blood Transfusion Reaction / Comment(s): mild clausterphobia Date of Last Stent Placement:: 2003 Past Psychological History: Anxiety, Depression Smoking Status: Current every day smoker Past Alcohol Use History: None Reported Past Drug Use History: None Reported - Past Family History Father Family Medical History: Congestive Heart Failure (CHF), Coronary Artery Disease (CAD), Diabetes Mellitus Mother Family Medical History: Cancer, Hypertension, Respiratory Disorder Additional Family Medical History / Comment(s): emphysema, colon CA Medications and Allergies Home Medications Medication Instructions Recorded Confirmed Type Fenofibrate [Lofibra] 160 mg PO DAILY 03/02/15 06/23/19 History Citalopram Hydrobromide [CeleXA] 40 mg PO DAILY #1 tab 03/10/15 06/23/19 Rx Pregabalin [Lyrica] 150 mg PO BID 06/25/15 06/23/19 History Cholecalciferol [Vitamin D3 (25 5,000 unit PO DAILY 01/15/16 06/23/19 History Mcg = 1000 Iu)] Folic Acid 2 mg PO DAILY 03/24/16 06/23/19 History lamoTRIgine 200 mg PO BID 07/30/16 06/23/19 History Albuterol Nebulized [Ventolin 2.5 mg INHALATION RT-QID PRN 03/27/17 06/23/19 History Nebulized] Magnesium Gluconate [Magonate] 500 mg PO DAILY 03/27/17 06/23/19 History Aspirin [Adult Low Dose Aspirin EC] 81 mg PO DAILY 11/26/17 06/23/19 History Atorvastatin [Lipitor] 80 mg PO DAILY 11/26/17 06/23/19 History Enalapril [Vasotec] 10 mg PO BID 11/26/17 06/23/19 History Nitroglycerin Sl Tabs [Nitrostat] 0.4 mg SUBLINGUAL Q5M PRN 11/26/17 06/23/19 History DULoxetine HCL [Cymbalta] 60 mg PO DAILY 08/25/18 06/23/19 History ALPRAZolam [Xanax] 1 mg PO HS 09/08/18 06/23/19 History Hydrocodone/Acetaminophen [[place] 1 tab PO HS 09/08/18 06/23/19 History 7.5-325] Isosorbide Mononitrate ER [Imdur] 60 mg PO DAILY 09/08/18 06/23/19 History Insulin Glargine [Lantus] 60 unit SQ DAILY #0 09/09/18 06/23/19 Rx Pantoprazole [Protonix] 40 mg PO AC-BRKFST #30 tablet. 09/09/18 06/23/19 Rx metFORMIN HCL 1,000 mg PO BID #0 09/09/18 06/23/19 Rx Carvedilol [Coreg] 25 mg PO BID 01/22/19 06/23/19 History Insulin Lispro [Admelog] 5 unit SQ HS 01/22/19 06/23/19 History Insulin Lispro [Admelog] 11 unit SQ AC-BRKFST 01/22/19 06/23/19 History Insulin Lispro [Admelog] 22 unit SQ AC-LUNCH 01/22/19 06/23/19 History Insulin Lispro [Admelog] 25 unit SQ AC-SUPPER 01/22/19 06/23/19 History Insulin Lispro [Admelog] See Protocol SQ ACHS 01/22/19 06/23/19 History Cephalexin [Keflex] 500 mg PO BID 06/23/19 06/23/19 History Ondansetron [Zofran] 4 mg PO TID PRN 06/23/19 06/23/19 History Vitamin B Complex 1 cap PO DAILY 06/23/19 06/23/19 History Allergies Allergy/AdvReac Type Severity Reaction Status Date / Time Fish Containing Products Allergy Unknown Verified 06/23/19 18:53 Iodinated Contrast- Oral and Allergy throat Verified 06/23/19 18:53 IV Dye swelling [Iodinated Contrast Media - IV Dye] Sulfa (Sulfonamide Allergy throat Verified 06/23/19 18:53 Antibiotics) swelling sulfamethoxazole Allergy throat Verified 06/23/19 18:53 [From ] swelling trimethoprim [From ] Allergy throat Verified 06/23/19 18:53 swelling NUTS Allergy Unknown Uncoded 06/23/19 18:53 Physical Examination - Vital Signs Vital Signs: Vital Signs Temp Pulse Resp BP Pulse Ox 06/23/19 19:28 66 18 195/99 98 06/23/19 19:00 61 14 199/97 95 06/23/19 18:00 67 18 191/99 99 06/23/19 17:45 60 18 189/90 99 06/23/19 17:30 98.3 F 63 16 199/90 96 Intake and Output 06/23/19 06/23/19 06/23/19 06:59 14:59 22:59 Other: Weight 83.915 kg Gen NAD Pleasant and cooperative HEENT NCAT Sclera without icterus O/P clear Neck Supple No carotid bruit Cor RRR no m/r/g Lungs CTAB Abd Soft NTND +BS Ext Warm to touch No edema Neuro MS A+Ox4 Normal fluency Able to follow all commands Able to articulate a detailed medical history without semantic or phonemic paraphasia CN PERRL VFF no APD EOMI no nystagmus or SANDY No facial asymmetry Masseter's sy mmetric Hearing intact to normal voice bilaterally Speech not dysarthric Equal elevation of palate Tongue midline Sym shrug and SCM bilaterally Motor Normal bulk Spasticity in RU&LE Cannot lift RUE RLE with drift does not hit bed No tremors Strength 2/5 in RUE 2-3/5 in RLE 5/5 left throughout Sens Diminished to LT throughout right No neglect or extinction Coord No dysmetria on FTN on the left; cannot test right due to motor weakness DTRs 3+/4 right 2+/4 left Right Babinski Left toes downgoing no ankle clonus Gait Deferred NIHSS 5b=36b=18=1 total 5 Results - Laboratory Findings CBC and BMP: 06/23/19 17:48 06/23/19 17:48 Abnormal Lab Findings: Abnormal Labs 06/23/19 06/23/19 17:48 17:48 APTT 31.5 H Sodium 136 L BUN 18 H Glucose 402 H Alkaline Phosphatase 152 H - Diagnostic Findings Additional findings: CT Head wo cont 06/23/19. No ICH. Nil acute. CTA Head/Neck 06/23/19. No LVO or stenosis. I have reviewed neuroimages myself. Assessment and Plan Assessment: Worsened right-sided numbness and weakness h/o CVA in same distribution. 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 All questions answered. Thank you for this consultation. Please call with ?. Time with Patient: Greater than 30 (Time spent in direct patient care, greater than 50% of which was spent in [id number] counseling and coordination of care: 70 minutes)
[2019-06-23] MEDS ORDERED: CLOPIDOGREL 75 MG TAB PO SCH (20:30)
[2019-06-23] MEDS ORDERED: ATORVASTATIN 80 MG TAB PO SCH (21:00)
[2019-06-23] MEDS ORDERED: INSULIN ASPART (NovoLOG) 100 UNIT/ML VIAL SQ SCH (21:00)
[2019-06-23 22:09] LABS: Glucose,Whole Blood 399 mg/dL (75-99)
[2019-06-23 23:22] VITALS: BP 176/89; PULSE 98; RESP 18; TEMP 98.2
[2019-06-24 02:58] LABS: Cholesterol 122 mg/dL (<200)
[2019-06-24 05:35] LABS: HDL Cholesterol 29 mg/dL (40-60); LDL Cholesterol,Calculated 36 mg/dL (0-99); Triglycerides 285 mg/dL (<150)
[2019-06-24] MEDS ORDERED: ASPIRIN 325 MG TAB PO SCH (09:00)
[2019-06-24] MEDS ORDERED: ASPIRIN 81 MG PO SCH (09:00)
== END 2019-06-23 23:22 | disposition left against medical advice (07) ==
LOC: EC 17:29 → 3SCARD 19:29 → UNDOADMIN 19:29 → 3SCARD 23:06 → UNDODISIN 23:22 → EC 23:22
DX: I63.9 Cerebral infarction, unspecified (principal); R29.706 NIHSS score 6; E11.9 Type 2 diabetes mellitus without complications; M79.7 Fibromyalgia; E78.5 Hyperlipidemia, unspecified; I10 Essential (primary) hypertension; I25.2 Old myocardial infarction; I25.10 Atherosclerotic heart disease of native coronary artery without angina pectoris; F41.9 Anxiety disorder, unspecified; F32.9 Major depressive disorder, single episode, unspecified; F17.200 Nicotine dependence, unspecified, uncomplicated; G47.33 Obstructive sleep apnea (adult) (pediatric); Z99.89 Dependence on other enabling machines and devices; E66.9 Obesity, unspecified; Z68.31 Body mass index [BMI] 31.0-31.9, adult; Z85.41 Personal history of malignant neoplasm of cervix uteri; Z85.43 Personal history of malignant neoplasm of ovary; Z95.5 Presence of coronary angioplasty implant and graft; Z90.710 Acquired absence of both cervix and uterus; Z79.82 Long term (current) use of aspirin; Z79.891 Long term (current) use of opiate analgesic; Z79.4 Long term (current) use of insulin; Z79.899 Other long term (current) drug therapy; Z91.013 Allergy to seafood; Z91.041 Radiographic dye allergy status; Z88.2 Allergy status to sulfonamides; Z91.018 Allergy to other foods; Z53.8 Procedure and treatment not carried out for other reasons
CPT/HCPCS: 36415; 93005; 80061; 80053; 84484; 85025; 85610; 85730; 71045; 70496; 70450; 70498; 99285; 96374; 96375 ×2; 96361; J1200; J2930; Q9967

== ENCOUNTER 2019-08-11 12:55 | Emergency (ER) | payer OTHER ==
[2019-08-11 14:16] LABS: Basophils % (A) 0 %; Eosinophils # (A) 0.1 k/uL (0-0.7); Eosinophils % (A) 1 %; HCT 42.4 % (34.0-46.0); HGB 14.8 gm/dL (11.4-16.0); Lymphocytes # (A) 2.7 k/uL (1.0-4.8); Lymphocytes % (A) 29 %; MCH 32.6 pg (25.0-35.0); MCHC 34.9 g/dL (31.0-37.0); MCV 93.5 fL (80.0-100.0); Mean Platelet Volume 6.8; Monocytes # (A) 0.3 k/uL (0-1.0); Monocytes % (A) 3 %; Neutrophils # (A) 5.9 k/uL (1.3-7.7); Neutrophils % (A) 65 %; Platelet Count 216 k/uL (150-450); RBC 4.54 m/uL (3.80-5.40); RDW 13.3 % (11.5-15.5); WBC 9.2 k/uL (3.8-10.6)
--- NOTE | 2019-08-11 14:18 | ED ---
Abdominal Pain HPI - General Chief Complaint: Abdominal Pain Stated Complaint: poss bowel obstruction-sent by Time Seen by Provider: 08/11/19 13:15 Source: patient Mode of arrival: wheelchair Limitations: no limitations - History of Present Illness Initial Comments: The patient is a 48 year old female who presents emergency room with reported abdominal pain. States that last month she did have surgery [place] for ovarian cancer. States the [employer] did mention that she had twisting of her bowels intraoperative. Because of this she did recommend that she follow up in a GI physician's office. She was in Dr. Ye's office today and she told him she hasn't had a bowel movement in 32 days. She did have small "mckayla" approximately 2 weeks ago however no other further bowel movements. She denies any melanotic stools. Does admit to chronic on however this is the worst it's ever been. Admits to nausea without vomiting. States that she is able to hold down food. Denies any urinary changes to include dysuria, hematuria or difficulty voiding. No fevers or chills. There are no other alleviating, precipitating or modifying factors - Related Data Home Medications Medication Instructions Recorded Confirmed Fenofibrate [Lofibra] 160 mg PO HS 03/02/15 08/11/19 Pregabalin [Lyrica] 150 mg PO BID 06/25/15 08/11/19 Cholecalciferol [Vitamin D3 (25 5,000 unit PO HS 01/15/16 08/11/19 Mcg = 1000 Iu)] Folic Acid 2 mg PO DAILY 03/24/16 08/11/19 lamoTRIgine 200 mg PO BID 07/30/16 08/11/19 Albuterol Nebulized [Ventolin 2.5 mg INHALATION RT-QID PRN 03/27/17 08/11/19 Nebulized] Magnesium Gluconate [Magonate] 500 mg PO HS 03/27/17 08/11/19 Aspirin [Adult Low Dose Aspirin EC] 81 mg PO HS 11/26/17 08/11/19 Atorvastatin [Lipitor] 80 mg PO HS 11/26/17 08/11/19 Enalapril [Vasotec] 10 mg PO BID 11/26/17 08/11/19 Nitroglycerin Sl Tabs [Nitrostat] 0.4 mg SUBLINGUAL Q5M PRN 11/26/17 08/11/19 DULoxetine HCL [Cymbalta] 60 mg PO DAILY 08/25/18 08/11/19 Isosorbide Mononitrate ER [Imdur] 60 mg PO DAILY 09/08/18 08/11/19 Carvedilol [Coreg] 25 mg PO BID 01/22/19 08/11/19 Insulin Lispro [Admelog] 5 unit SQ HS 01/22/19 08/11/19 Insulin Lispro [Admelog] 11 unit SQ AC-BRKFST 01/22/19 08/11/19 Insulin Lispro [Admelog] 22 unit SQ AC-LUNCH 01/22/19 08/11/19 Insulin Lispro [Admelog] 25 unit SQ AC-SUPPER 01/22/19 08/11/19 Insulin Lispro [Admelog] See Protocol SQ ACHS 01/22/19 08/11/19 Ondansetron [Zofran] 4 mg PO TID PRN 06/23/19 08/11/19 Vitamin B Complex 1 cap PO DAILY 06/23/19 08/11/19 ALPRAZolam [Xanax] 0.5 mg PO AC-LUNCH 08/11/19 08/11/19 ALPRAZolam [Xanax] 0.5 mg PO DAILY 08/11/19 08/11/19 ALPRAZolam [Xanax] 2 mg PO HS 08/11/19 08/11/19 HYDROcodone/APAP 5-325MG [[place] 1 tab PO TID PRN 08/11/19 08/11/19 5-325] Morphine Sulfate [Ms Contin] 15 mg PO Q12HR PRN 08/11/19 08/11/19 Previous Rx's Medication Instructions Recorded Citalopram Hydrobromide [CeleXA] 40 mg PO DAILY #1 tab 03/10/15 Insulin Glargine [Lantus] 60 unit SQ DAILY #0 09/09/18 Pantoprazole [Protonix] 40 mg PO [facility] #30 tablet. 09/09/18 metFORMIN HCL 1,000 mg PO BID #0 09/09/18 Peg 3350-Na Sulf,Bicarb,Cl/KCl 4,000 ml PO DIRECTED #1 bottle 08/11/19 [Golytely Lavage] Allergies Allergy/AdvReac Type Severity Reaction Status Date / Time Fish Containing Products Allergy Unknown Verified 06/23/19 18:53 Iodinated Contrast Media Allergy throat Verified 06/23/19 18:53 [Iodinated Contrast Media - swelling IV Dye] Sulfa (Sulfonamide Allergy throat Verified 06/23/19 18:53 Antibiotics) swelling sulfamethoxazole Allergy throat Verified 06/23/19 18:53 [From Septra] swelling trimethoprim [From Junra] Allergy throat Verified 06/23/19 18:53 swelling NUTS Allergy Unknown Uncoded 06/23/19 18:53 Review of Systems ROS Statement: Those systems with pertinent positive or pertinent negative responses have been documented in the HPI. ROS Other: All systems not noted in ROS Statement are negative. 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 andper pt's spouse- slight foot drag when tired.diabetes mellitus insulin-dependent, hypertension, hyperlipidemia, fibromyalgia, obstructive sleep apnea, MS, questionable hypercoagulable disease, anxiety, depression, obesity, ovarian cyst, MIX5 Last Myocardial Infarction Date:: unk History of Any Multi-Drug Resistant Organisms: None Reported Past Surgical History: Section, Cholecystectomy, Heart Catheterization With Stent, Hysterectomy, Tubal Ligation, Uterine Ablation Additional Past Surgical History / Comment(s): vein stripping right leg, radio frequency ablation of right back-02/22/2015, four stents on 04/03/16 and one on march 05 Past Anesthesia/Blood Transfusion Reactions: Motion Sickness Additional Past Anesthesia/Blood Transfusion Reaction / Comment(s): mild clausterphobia Date of Last Stent Placement:: 2003 Past Psychological History: Anxiety, Depression Smoking Status: Current every day smoker Past Alcohol Use History: None Reported Past Drug Use History: None Reported - Past Family History Father Family Medical History: Congestive Heart Failure (CHF), Coronary Artery Disease (CAD), Diabetes Mellitus Mother Family Medical History: Cancer, Hypertension, Respiratory Disorder Additional Family Medical History / Comment(s): emphysema, colon CA General Exam Limitations: no limitations General appearance: alert, in no apparent distress Head exam: Present: atraumatic, normocephalic, normal inspection Eye exam: Present: normal appearance, PERRL, EOMI. Absent: scleral icterus, conjunctival injection, periorbital swelling ENT exam: Present: normal exam, mucous membranes moist Neck exam: Present: normal inspection. Absent: tenderness, meningismus, lymphadenopathy Respiratory exam: Present: normal lung sounds bilaterally. Absent: respiratory distress, wheezes, rales, rhonchi, stridor Cardiovascular Exam: Present: regular rate, normal rhythm, normal heart sounds. Absent: systolic murmur, diastolic murmur, rubs, gallop, clicks GI/Abdominal exam: Present: soft, distended (fullness to the abdomen with palpable stool), normal bowel sounds. Absent: tenderness, guarding, rebound, rigid Extremities exam: Present: normal inspection, full ROM, normal capillary refill. Absent: tenderness, pedal edema, joint swelling, calf tenderness Back exam: Present: normal inspection Neurological exam: Present: alert, oriented X3, CN II-XII intact Psychiatric exam: Present: normal affect, normal mood Skin exam: Present: warm, dry, intact, normal color. Absent: rash Course Vital Signs 08/11/19 08/11/19 13:10 17:56 Temperature 97.8 F 98.4 F Pulse Rate 81 89 Respiratory 20 18 Rate Blood Pressure 124/78 127/77 O2 Sat by Pulse 97 98 Oximetry Medical Decision Making - Medical Decision Making Upon arrival the patient is placed into room 15. A thorough history and physical exam was performed. Laboratory studies were conducted. CMP shows a sodium of 134. Glucose is 377. The patient is a diabetic. No signs of DKA. I did request a urine sample however the patient did not give one. CT the patient's abdomen demonstrates findings compatible with fecal stasis. I discussed these results with the patient. I attempted to call Dr. Hahn however I did not receive a call back. At this time I did recommended treating the patient with Eber. The patient agreed to this. She is to use medications as directed at home. She is to follow with Dr. Hahn for her chronic constipation and to get on a regimen. The patient does not have relief with the GoLYTELY she should come back to emergency room. The patient agreed to the treatment plan and was discharged home in stable condition - Lab Data Result diagrams: 08/11/19 14:03 08/11/19 14:03 Lab Results 08/11/19 08/11/19 08/11/19 Range/Units 14:03 14:03 14:03 WBC 9.2 (3.8-10.6) k/uL RBC 4.54 (3.80-5.40) m/uL Hgb 14.8 (11.4-16.0) gm/dL Hct 42.4 (34.0-46.0) % MCV 93.5 (80.0-100.0) fL MCH 32.6 (25.0-35.0) pg MCHC 34.9 (31.0-37.0) g/dL RDW 13.3 (11.5-15.5) % Plt Count 216 (150-450) k/uL Neutrophils % 65 % Lymphocytes % 29 % Monocytes % 3 % Eosinophils % 1 % Basophils % 0 % Neutrophils # 5.9 (1.3-7.7) k/uL Lymphocytes # 2.7 (1.0-4.8) k/uL Monocytes # 0.3 (0-1.0) k/uL Eosinophils # 0.1 (0-0.7) k/uL Basophils # 0.0 (0-0.2) k/uL Sodium 134 L (137-145) mmol/L Potassium 4.5 (3.5-5.1) mmol/L Chloride 99 (98-107) mmol/L Carbon Dioxide 24 (22-30) mmol/L Anion Gap 11 mmol/L BUN 14 (7-17) mg/dL Creatinine 0.59 (0.52-1.04) mg/dL Est GFR (CKD-EPI)AfAm >90 (>60 ml/min/1.73 sqM) Est GFR (CKD-EPI)NonAf >90 (>60 ml/min/1.73 sqM) Glucose 377 H (74-99) mg/dL Plasma Lactic Acid Faheem 1.8 (0.7-2.0) mmol/L Calcium 9.8 (8.4-10.2) mg/dL Total Bilirubin 0.7 (0.2-1.3) mg/dL AST 15 (14-36) U/L ALT 27 (9-52) U/L Alkaline Phosphatase 115 (38-126) U/L Total Protein 6.4 (6.3-8.2) g/dL Albumin 3.9 (3.5-5.0) g/dL Lipase 49 (23-300) U/L Disposition Clinical Impression: Constipation, Abdominal pain Disposition: HOME SELF-CARE Condition: Stable Instructions (If sedation given, give patient instructions): Constipation (DC) Additional Instructions: Please follow-up with Dr. Broussard regarding your chronic constipation. Take the GoLYTELY as directed. Return to the emergency room for any new or worsening symptoms Prescriptions: Peg 3350-Na Sulf,Bicarb,Cl/KCl [Golytely Lavage] 4,000 ml PO DIRECTED #1 bottle Is patient prescribed a controlled substance at d/c from ED?: No Referrals: Dagmar Hennessy MD [Primary Care Provider] - 1-2 days Time of Disposition: 17:20
[2019-08-11 14:44] LABS: Albumin 3.9 g/dL (3.5-5.0); Chloride 99 mmol/L (98-107); Glucose 377 mg/dL (74-99); Potassium 4.5 mmol/L (3.5-5.1); Sodium 134 mmol/L (137-145); Total Protein 6.4 g/dL (6.3-8.2)
[2019-08-11 14:46] LABS: ALT 27 U/L (9-52); AST 15 U/L (14-36); African American GFR (CKD) >90 (>60 ml/min/1.73 sqM); Alkaline Phosphatase 115 U/L (38-126); Anion Gap 11 mmol/L; Blood Urea Nitrogen 14 mg/dL (7-17); Calcium 9.8 mg/dL (8.4-10.2); Carbon Dioxide 24 mmol/L (22-30); Total Bilirubin 0.7 mg/dL (0.2-1.3)
[2019-08-11] MEDS ORDERED: FAMOTIDINE 20 MG/2 ML VIAL IV STA (15:50)
[2019-08-11] MEDS ORDERED: methylPREDNISolone SOD SUCCI 125 MG/2 ML VIAL IV STA (15:50)
[2019-08-11] MEDS ORDERED: diphenhydrAMINE 50 MG/ML 1 ML VIAL IVP STA (15:50)
--- NOTE | 2019-08-11 16:52 | CT ---
EXAMINATION TYPE: CT abdomen pelvis w con DATE OF EXAM: 08/11/2019 COMPARISON: Prior CT 06/09/2019 HISTORY: constipation CT DLP: 1514 mGycm Automated exposure control for dose reduction was used. TECHNIQUE: Helical acquisition of images from the lung bases through the pelvis have been completed. CONTRAST: Performed without Oral Contrast and with IV Contrast, patient injected with 100 mL of Isovue 300. FINDINGS: There are coronary artery calcifications present. Small umbilical hernia contains fat. LUNG BASES: No significant abnormality is appreciated. AORTA: Dense atheromatous calcification present within the aorta, mesenteric vessels. LIVER/GB: Patient is post cholecystectomy. Liver shows no mass, liver is enlarged. PANCREAS: No significant abnormality is seen. SPLEEN: Enlarged, cephalad to caudal dimension 16 cm. ADRENALS: No significant abnormality is seen. KIDNEYS: Probable vascular calcifications present within the kidneys. No evident hydronephrosis or ur eteral calcification. REPRODUCTIVE ORGANS: Not seen. BOWEL: Retained fecal debris present throughout the distribution of the colon. No oral contrast was administered. Appendix is normal. FREE AIR: No Free Air visible. ASCITES: None visible. PELVIC ADENOPATHY: None visualized. RETROPERITONEAL ADENOPATHY: No Retroperitoneal Adenopathy visible. URINARY BLADDER: No significant abnormality is seen. OSSEOUS STRUCTURES: Degenerative disc changes in the visualized spine, there is associated facet art hropathy.. IMPRESSION: FINDINGS COMPATIBLE WITH FECAL STASIS. HEPATOMEGALY. POSTOP CHANGES.
[2019-08-11 17:57] VITALS: BP 127/77; PULSE 89; RESP 18; TEMP 98.4
== END 2019-08-11 17:56 | disposition home or self-care (01) ==
LOC: EC 12:55
DX: K59.00 Constipation, unspecified (principal); E11.9 Type 2 diabetes mellitus without complications; I10 Essential (primary) hypertension; E78.5 Hyperlipidemia, unspecified; I25.2 Old myocardial infarction; I25.10 Atherosclerotic heart disease of native coronary artery without angina pectoris; F41.9 Anxiety disorder, unspecified; F32.9 Major depressive disorder, single episode, unspecified; G47.33 Obstructive sleep apnea (adult) (pediatric); E66.9 Obesity, unspecified; Z68.30 Body mass index [BMI] 30.0-30.9, adult; F17.200 Nicotine dependence, unspecified, uncomplicated; Z79.82 Long term (current) use of aspirin; Z79.02 Long term (current) use of antithrombotics/antiplatelets; Z79.4 Long term (current) use of insulin; Z79.899 Other long term (current) drug therapy; Z91.013 Allergy to seafood; Z91.041 Radiographic dye allergy status; Z88.2 Allergy status to sulfonamides; Z88.1 Allergy status to other antibiotic agents; Z91.018 Allergy to other foods; Z95.5 Presence of coronary angioplasty implant and graft; Z86.73 Personal history of transient ischemic attack (TIA), and cerebral infarction without residual deficits; Z85.41 Personal history of malignant neoplasm of cervix uteri
CPT/HCPCS: 36415; 80053; 83605; 83690; 85025; 74177; 99284; 96374; 96375 ×2; J1200; J2930; Q9967

== ENCOUNTER 2019-10-11 15:25 | Emergency (ER) | payer OTHER ==
[2019-10-11 15:36] VITALS: RESP 18
[2019-10-11] MEDS ORDERED: SODIUM CHLORIDE 0.9% 1,000 ML IV STA ×2 (16:11)
[2019-10-11] MEDS ORDERED: ONDANSETRON 4 MG/2 ML VIAL IVP STA (16:11)
[2019-10-11] MEDS ORDERED: KETOROLAC 30 MG/ML 1 ML VIAL IVP STA (16:11)
[2019-10-11 16:26] LABS: Basophils % (A) 1 %; Eosinophils # (A) 0.2 k/uL (0-0.7); Eosinophils % (A) 2 %; HCT 46.6 % (34.0-46.0); HGB 15.7 gm/dL (11.4-16.0); Lymphocytes # (A) 2.8 k/uL (1.0-4.8); Lymphocytes % (A) 31 %; MCH 31.4 pg (25.0-35.0); MCHC 33.7 g/dL (31.0-37.0); MCV 93.3 fL (80.0-100.0); Mean Platelet Volume 8.4; Monocytes # (A) 0.4 k/uL (0-1.0); Monocytes % (A) 4 %; Neutrophils # (A) 5.5 k/uL (1.3-7.7); Neutrophils % (A) 61 %; Platelet Count 183 k/uL (150-450); RBC 4.99 m/uL (3.80-5.40); RDW 12.9 % (11.5-15.5)
[2019-10-11 16:36] LABS: ALT 20 U/L (4-34); AST 20 U/L (14-36); African American GFR (CKD) >90 (>60 ml/min/1.73 sqM); Albumin 4.3 g/dL (3.5-5.0); Alkaline Phosphatase 132 U/L (38-126); Amylase 36 U/L (30-110); Anion Gap 10 mmol/L; Blood Urea Nitrogen 14 mg/dL (7-17); Calcium 9.9 mg/dL (8.4-10.2); Carbon Dioxide 24 mmol/L (22-30); Chloride 99 mmol/L (98-107); Glucose 339 mg/dL (74-99); Non-African American GFR(CKD) >90 (>60 ml/min/1.73 sqM); Sodium 133 mmol/L (137-145); Total Bilirubin 0.8 mg/dL (0.2-1.3)
[2019-10-11 17:03] LABS: Appearance,Urine Clear (Clear); Bilirubin,Urine Negative (Negative); Blood,Urine Negative (Negative); Color,Urine Light Yellow; Glucose,Urine (UA) 4+ (Negative); Hyaline Casts,Urine 1 /lpf (0-2); Ketones,Urine Negative (Negative); Leukocyte Esterase,Urine Negative (Negative); Nitrite,Urine Negative (Negative); Protein,Urine 1+ (Negative); RBC,Urine 1 /hpf (0-5); Specific Gravity,Urine 1.011 (1.001-1.035); Squamous Epithelial Cell,Urine 11 /hpf (0-4); Urobilinogen,Urine <2.0 mg/dL (<2.0); WBC,Urine 1 /hpf (0-5)
[2019-10-11 17:10] LABS: Partial Thromboplastin Time 30.4 sec (22.0-30.0); Prothrombin Time 10.8 sec (9.0-12.0)
--- NOTE | 2019-10-11 17:11 | XR ---
EXAMINATION TYPE: XR KUB DATE OF EXAM: 10/11/2019 COMPARISON: 01/14/2019 HISTORY: Abdominal pain TECHNIQUE: 2 views upright FINDINGS: There is no sign of intestinal obstruction or pneumoperitoneum. Fecal pattern is normal. Th ere are clips from cholecystectomy. Lung bases are clear. There is a faint 2 mm calcification over th e left kidney. IMPRESSION: Possible left renal calculus. Nonacute abdomen.
--- NOTE | 2019-10-11 17:18 | ED ---
Abdominal Pain HPI - General Source: patient, RN notes reviewed, old records reviewed Mode of arrival: wheelchair Limitations: physical limitation <Samanta Waterman - Last Filed: 10/11/19 17:43> <Gem Ortega - Last Filed: 10/12/19 14:39> - General Chief Complaint: Abdominal Pain Stated Complaint: Right Side Pain Time Seen by Provider: 10/11/19 15:48 - History of Present Illness Initial Comments: This patient's a 49-year-old female. She presents emergency Department today with chief complaint of diffuse abdominal pain worse on the right upper quadrant. She reports that she's been having hard time having bowel movements. She states that she had a colonoscopy completed approximately one to 2 weeks ago and states that since that time she's been having hard time with passing bowel movements. She reports that she had a few small stools today. She denies any fever. Patient reports that she has no changes in urination. She does have history of right-sided paralysis related to previous stroke. She denies any chest pain or shortness.vertical history includes C-sections, cholecystectomy. She states that she is concerned she is having an obstruction. She reports she's had some episodes of vomiting. (Samanta Waterman) - Related Data Home Medications Medication Instructions Recorded Confirmed Fenofibrate [Lofibra] 160 mg PO HS 03/02/15 08/11/19 Pregabalin [Lyrica] 150 mg PO BID 06/25/15 08/11/19 Cholecalciferol [Vitamin D3 (25 5,000 unit PO HS 01/15/16 08/11/19 Mcg = 1000 Iu)] Folic Acid 2 mg PO DAILY 03/24/16 08/11/19 lamoTRIgine 200 mg PO BID 07/30/16 08/11/19 Albuterol Nebulized [Ventolin 2.5 mg INHALATION RT-QID PRN 03/27/17 08/11/19 Nebulized] Magnesium Gluconate [Magonate] 500 mg PO HS 03/27/17 08/11/19 Aspirin [Adult Low Dose Aspirin EC] 81 mg PO HS 11/26/17 08/11/19 Atorvastatin [Lipitor] 80 mg PO HS 11/26/17 08/11/19 Enalapril [Vasotec] 10 mg PO BID 11/26/17 08/11/19 Nitroglycerin Sl Tabs [Nitrostat] 0.4 mg SUBLINGUAL Q5M PRN 11/26/17 08/11/19 DULoxetine HCL [Cymbalta] 60 mg PO DAILY 08/25/18 08/11/19 Isosorbide Mononitrate ER [Imdur] 60 mg PO DAILY 09/08/18 08/11/19 Carvedilol [Coreg] 25 mg PO BID 01/22/19 08/11/19 Insulin Lispro [Admelog] 5 unit SQ HS 01/22/19 08/11/19 Insulin Lispro [Admelog] 11 unit SQ AC-BRKFST 01/22/19 08/11/19 Insulin Lispro [Admelog] 22 unit SQ AC-LUNCH 01/22/19 08/11/19 Insulin Lispro [Admelog] 25 unit SQ AC-SUPPER 01/22/19 08/11/19 Insulin Lispro [Admelog] See Protocol SQ ACHS 01/22/19 08/11/19 Ondansetron [Zofran] 4 mg PO TID PRN 06/23/19 08/11/19 Vitamin B Complex 1 cap PO DAILY 06/23/19 08/11/19 ALPRAZolam [Xanax] 0.5 mg PO AC-LUNCH 08/11/19 08/11/19 ALPRAZolam [Xanax] 0.5 mg PO DAILY 08/11/19 08/11/19 ALPRAZolam [Xanax] 2 mg PO HS 08/11/19 08/11/19 HYDROcodone/APAP 5-325MG [[place] 1 tab PO TID PRN 08/11/19 08/11/19 5-325] Morphine Sulfate [Ms Contin] 15 mg PO Q12HR PRN 08/11/19 08/11/19 Previous Rx's Medication Instructions Recorded Citalopram Hydrobromide [CeleXA] 40 mg PO DAILY #1 tab 03/10/15 Insulin Glargine [Lantus] 60 unit SQ DAILY #0 09/09/18 Pantoprazole [Protonix] 40 mg PO [facility] #30 tablet. 09/09/18 metFORMIN HCL 1,000 mg PO BID #0 09/09/18 Peg 3350-Na Sulf,Bicarb,Cl/KCl 4,000 ml PO DIRECTED #1 bottle 08/11/19 [Golytely Lavage] Allergies Allergy/AdvReac Type Severity Reaction Status Date / Time Fish Containing Products Allergy Unknown Verified 06/23/19 18:53 Iodinated Contrast Media Allergy throat Verified 06/23/19 18:53 [Iodinated Contrast Media - swelling IV Dye] Sulfa (Sulfonamide Allergy throat Verified 06/23/19 18:53 Antibiotics) swelling sulfamethoxazole Allergy throat Verified 06/23/19 18:53 [From Septra] swelling trimethoprim [From ] Allergy throat Verified 06/23/19 18:53 swelling NUTS Allergy Unknown Uncoded 06/23/19 18:53 Review of Systems ROS Other: All systems not noted in ROS Statement are negative. <Samanta Waterman - Last Filed: 10/11/19 17:43> ROS Other: All systems not noted in ROS Statement are negative. <Gem Ortega - Last Filed: 10/12/19 14:39> ROS Statement: Those systems with pertinent positive or pertinent negative responses have been documented in the HPI. 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 andper pt's spouse- slight foot drag when tired.diabetes mellitus insulin-dependent, hypertension, hyperlipidemia, fibromyalgia, obstructive sleep apnea, MS, questionable hypercoagulable disease, anxiety, depression, obesity, ovarian cyst, MIX5 Last Myocardial Infarction Date:: unk History of Any Multi-Drug Resistant Organisms: None Reported Past Surgical History: Section, Cholecystectomy, Heart Catheterization With Stent, Hysterectomy, Tubal Ligation, Uterine Ablation Additional Past Surgical History / Comment(s): vein stripping right leg, radio frequency ablation of right back-02/22/2015, four stents on 04/03/16 and one on march 05, ovaries removed, colonscopy- polyp removal Past Anesthesia/Blood Transfusion Reactions: Motion Sickness Additional Past Anesthesia/Blood Transfusion Reaction / Comment(s): mild clausterphobia Date of Last Stent Placement:: 2003 Past Psychological History: Anxiety, Depression Smoking Status: Current every day smoker Past Alcohol Use History: None Reported Past Drug Use History: None Reported - Past Family History Father Family Medical History: Congestive Heart Failure (CHF), Coronary Artery Disease (CAD), Diabetes Mellitus Mother Family Medical History: Cancer, Hypertension, Respiratory Disorder Additional Family Medical History / Comment(s): emphysema, colon CA <Samanta Waterman - Last Filed: 10/11/19 17:43> General Exam Limitations: physical limitation General appearance: alert, in no apparent distress Head exam: Present: atraumatic, normocephalic, normal inspection Eye exam: Present: normal appearance, PERRL, EOMI. Absent: scleral icterus, co njunctival injection, periorbital swelling ENT exam: Present: normal exam, mucous membranes moist Neck exam: Present: normal inspection. Absent: tenderness, meningismus, lymphadenopathy Respiratory exam: Present: normal lung sounds bilaterally. Absent: respiratory distress, wheezes, rales, rhonchi, stridor Cardiovascular Exam: Present: regular rate, normal rhythm, normal heart sounds. Absent: systolic murmur, diastolic murmur, rubs, gallop, clicks GI/Abdominal exam: Present: soft, tenderness (right upper quadrant pain), normal bowel sounds. Absent: distended, guarding, rebound, rigid Extremities exam: Present: normal inspection, full ROM, normal capillary refill. Absent: tenderness, pedal edema, joint swelling, calf tenderness Back exam: Present: normal inspection Neurological exam: Present: alert, oriented X3, CN II-XII intact Psychiatric exam: Present: normal affect, normal mood Skin exam: Present: warm, dry, intact, normal color. Absent: rash <Samanta Waterman - Last Filed: 10/11/19 17:43> - General Exam Comments Initial Comments: 41-year-old female. Alert and oriented 3. No significant distress. (Samanta Waterman) Course Vital Signs 10/11/19 10/11/19 15:33 18:11 Temperature 97.5 F L 97.2 F L Pulse Rate 70 60 Respiratory 18 18 Rate Blood Pressure 155/89 178/99 O2 Sat by Pulse 100 98 Oximetry Medical Decision Making - Lab Data Result diagrams: 10/11/19 16:00 10/11/19 16:00 - Radiology Data Radiology results: report reviewed <Samanta Waterman - Last Filed: 10/11/19 17:43> - Lab Data Result diagrams: 10/11/19 16:00 10/11/19 16:00 <Gem Ortega - Last Filed: 10/12/19 14:39> - Medical Decision Making 41-year-old female presents today for right-sided abdominal pain. She admits to nausea. Lack of having bowel movement in the past 2 days. At this time patient's labwork was reviewed and unremarkable. Abdomen is relatively soft nontender. X-ray does show moderate amount of stool on the right side a.m. Discussed the Patient on him at this time. She declines. I discussed that we try mag citrate at home and she would prefer to do an enema at home. Discussed she any further pains or fevers or other complaints she does return to the ER for reevaluation. All questions answered. (Samanta Waterman) I was available for consultation in the emergency department. The history and physical exam were done by the midlevel provider. I was consulted for this patients care. I reviewed the case with the midlevel provider and based on their presentation of the patient, I agree with the assessment, medical decision making and plan of care as documented. Chart was dictated using [employer] dictation software. Attempts were made to correct any dictation errors however some typographical errors may persist. (Gem Ortega) - Lab Data Lab Results 10/11/19 10/11/19 10/11/19 Range/Units 16:00 16:00 16:22 WBC 9.0 (3.8-10.6) k/uL RBC 4.99 (3.80-5.40) m/uL Hgb 15.7 (11.4-16.0) gm/dL Hct 46.6 H (34.0-46.0) % MCV 93.3 (80.0-100.0) fL MCH 31.4 (25.0-35.0) pg MCHC 33.7 (31.0-37.0) g/dL RDW 12.9 (11.5-15.5) % Plt Count 183 (150-450) k/uL Neutrophils % 61 % Lymphocytes % 31 % Monocytes % 4 % Eosinophils % 2 % Basophils % 1 % Neutrophils # 5.5 (1.3-7.7) k/uL Lymphocytes # 2.8 (1.0-4.8) k/uL Monocytes # 0.4 (0-1.0) k/uL Eosinophils # 0.2 (0-0.7) k/uL Basophils # 0.0 (0-0.2) k/uL PT (9.0-12.0) sec INR (<1.2) APTT (22.0-30.0) sec Sodium 133 L (137-145) mmol/L Potassium 5.0 (3.5-5.1) mmol/L Chloride 99 (98-107) mmol/L Carbon Dioxide 24 (22-30) mmol/L Anion Gap 10 mmol/L BUN 14 (7-17) mg/dL Creatinine 0.69 (0.52-1.04) mg/dL Est GFR (CKD-EPI)AfAm >90 (>60 ml/min/1.73 sqM) Est GFR (CKD-EPI)NonAf >90 (>60 ml/min/1.73 sqM) Glucose 339 H (74-99) mg/dL Calcium 9.9 (8.4-10.2) mg/dL Total Bilirubin 0.8 (0.2-1.3) mg/dL AST 20 (14-36) U/L ALT 20 (4-34) U/L Alkaline Phosphatase 132 H (38-126) U/L Total Protein 7.0 (6.3-8.2) g/dL Albumin 4.3 (3.5-5.0) g/dL Amylase 36 (30-110) U/L Lipase 81 (23-300) U/L Urine Color Light Yellow Urine Appearance Clear (Clear) Urine pH 6.0 (5.0-8.0) Ur Specific [place] 1.011 (1.001-1.035) Urine Protein 1+ H (Negative) Urine Glucose (UA) 4+ H (Negative) Urine Ketones Negative (Negative) Urine Blood Negative (Negative) Urine Nitrite Negative (Negative) Urine Bilirubin Negative (Negative) Urine Urobilinogen <2.0 (<2.0) mg/dL Ur Leukocyte Esterase Negative (Negative) Urine RBC 1 (0-5) /hpf Urine WBC 1 (0-5) /hpf Ur Squamous Epith Cells 11 H (0-4) /hpf Hyaline Casts 1 (0-2) /lpf 10/11/19 Range/Units 16:25 WBC (3.8-10.6) k/uL RBC (3.80-5.40) m/uL Hgb (11.4-16.0) gm/dL Hct (34.0-46.0) % MCV (80.0-100.0) fL MCH (25.0-35.0) pg MCHC (31.0-37.0) g/dL RDW (11.5-15.5) % Plt Count (150-450) k/uL Neutrophils % % Lymphocytes % % Monocytes % % Eosinophils % % Basophils % % Neutrophils # (1.3-7.7) k/uL Lymphocytes # (1.0-4.8) k/uL Monocytes # (0-1.0) k/uL Eosinophils # (0-0.7) k/uL Basophils # (0-0.2) k/uL PT 10.8 (9.0-12.0) sec INR 1.0 (<1.2) APTT 30.4 H (22.0-30.0) sec Sodium (137-145) mmol/L Potassium (3.5-5.1) mmol/L Chloride (98-107) mmol/L Carbon Dioxide (22-30) mmol/L Anion Gap mmol/L BUN (7-17) mg/dL Creatinine (0.52-1.04) mg/dL Est GFR (CKD-EPI)AfAm (>60 ml/min/1.73 sqM) Est GFR (CKD-EPI)NonAf (>60 ml/min/1.73 sqM) Glucose (74-99) mg/dL Calcium (8.4-10.2) mg/dL Total Bilirubin (0.2-1.3) mg/dL AST (14-36) U/L ALT (4-34) U/L Alkaline Phosphatase (38-126) U/L Total Protein (6.3-8.2) g/dL Albumin (3.5-5.0) g/dL Amylase (30-110) U/L Lipase (23-300) U/L Urine Color Urine Appearance (Clear) Urine pH (5.0-8.0) Ur Specific [place] (1.001-1.035) Urine Protein (Negative) Urine Glucose (UA) (Negative) Urine Ketones (Negative) Urine Blood (Negative) Urine Nitrite (Negative) Urine Bilirubin (Negative) Urine Urobilinogen (<2.0) mg/dL Ur Leukocyte Esterase (Negative) Urine RBC (0-5) /hpf Urine WBC (0-5) /hpf Ur Squamous Epith Cells (0-4) /hpf Hyaline Casts (0-2) /lpf - Radiology Data AB shows possible left renal calculus. Nonacute abdomen. Fecal pattern appears normal. No sign of obstruction. (Samanta Waterman) Disposition Is patient prescribed a controlled substance at d/c from ED?: No Time of Disposition: 17:44 <Samanta Waterman - Last Filed: 10/11/19 17:43> <Gem Ortega - Last Filed: 10/12/19 14:39> Clinical Impression: Constipation Disposition: HOME SELF-CARE Condition: Good Instructions (If sedation given, give patient instructions): Constipation (ED) Additional Instructions: Patient has follow-up with GI specialty. Take the mag citrate at home and also use Fleet enema at home. Return to the emergency department if there is any fevers or other alarming signs or symptoms. Referrals: Dagmar Hennessy MD [Primary Care Provider] - 1-2 days
[2019-10-11] MEDS ORDERED: MAGNESIUM CITRATE 296 ML BOTTLE PO ONE (17:44)
[2019-10-11 18:25] VITALS: BP 178/99; PULSE 60; TEMP 97.2
== END 2019-10-11 18:11 | disposition home or self-care (01) ==
LOC: EC 15:25
DX: K59.00 Constipation, unspecified (principal); E11.9 Type 2 diabetes mellitus without complications; E78.5 Hyperlipidemia, unspecified; I10 Essential (primary) hypertension; I25.2 Old myocardial infarction; I25.10 Atherosclerotic heart disease of native coronary artery without angina pectoris; G47.33 Obstructive sleep apnea (adult) (pediatric); F41.9 Anxiety disorder, unspecified; I69.351 Hemiplegia and hemiparesis following cerebral infarction affecting right dominant side; F32.9 Major depressive disorder, single episode, unspecified; F17.200 Nicotine dependence, unspecified, uncomplicated; Z79.4 Long term (current) use of insulin; Z79.82 Long term (current) use of aspirin; Z79.02 Long term (current) use of antithrombotics/antiplatelets; Z79.899 Other long term (current) drug therapy; Z91.013 Allergy to seafood; Z91.041 Radiographic dye allergy status; Z88.2 Allergy status to sulfonamides; Z88.1 Allergy status to other antibiotic agents; Z91.018 Allergy to other foods; Z90.49 Acquired absence of other specified parts of digestive tract; Z85.41 Personal history of malignant neoplasm of cervix uteri; Z95.5 Presence of coronary angioplasty implant and graft
CPT/HCPCS: 36415; 80053; 82150; 83690; 85025; 85610; 85730; 81001; 74018; 99284; 96374; 96375; 96361 ×2; J2405; J1885

== ENCOUNTER 2019-10-28 16:34 | Emergency (ER) | payer OTHER ==
[2019-10-28] MEDS ORDERED: ACETAMINOPHEN TAB 325 MG TAB PO STA (17:06)
--- NOTE | 2019-10-28 17:32 | XR ---
EXAMINATION TYPE: XR sacrum coccyx DATE OF EXAM: 10/28/2019 COMPARISON: NONE HISTORY: Fall. Pain. TECHNIQUE: 3 views FINDINGS: Sacrum and coccyx segments have fairly normal alignment. I see no evidence of a fracture. T he sacroiliac joints appear intact. IMPRESSION: Negative sacrum and coccyx exam. No fracture seen.
--- NOTE | 2019-10-28 17:40 | ED ---
General Adult HPI - General Chief complaint: Fall Stated complaint: Fall Time Seen by Provider: 10/28/19 16:45 Source: patient, RN notes reviewed, old records reviewed Mode of arrival: wheelchair Limitations: no limitations - History of Present Illness Initial comments: 49-year-old female patient presents to ED for chief complaint of fall on 09/19. She reports that she was walking up the stairs and fell right on her gluteus region. Patient which is having pain in her sacrum/coccyx. She denies any use of blood thinners. Denies a trauma head or neck. Reports that she is having difficulty with walking due to the pain in this region. Patient also complains that today while she was eating her on what she felt as if she was choking a little bit on the food. Has been able tolerate liquids without difficulty. Denies any other complaints. Systemic: Pt denies fatigue, fever/chills, rash. Pt denies weakness, night sweats, weight loss. Neuro: Pt denies headache, visual disturbances, syncope or pre-syncope. HEENT: Pt denies ocular discharge or irritation, otalgia, rhinorrhea, pharyngitis or notable lymphadenopathy. Cardiopulmonary: Pt denies chest pain, SOB, heart palpitations, dyspnea on exertion. Abdominal/GI: Pt denies abdominal pain, n/v/d. : Pt denies dysuria, burning w/ urination, frequency/urgency. Denies new onset urinary or bowel incontinence. MSK: Pt denies myalgia, loss of strength or function in extremities. Neuro: Pt denies new onset weakness, paresthesias. - Related Data Home Medications Medication Instructions Recorded Confirmed Fenofibrate [Lofibra] 160 mg PO HS 03/02/15 08/11/19 Pregabalin [Lyrica] 150 mg PO BID 06/25/15 08/11/19 Cholecalciferol [Vitamin D3 (25 5,000 unit PO HS 01/15/16 08/11/19 Mcg = 1000 Iu)] Folic Acid 2 mg PO DAILY 03/24/16 08/11/19 lamoTRIgine 200 mg PO BID 07/30/16 08/11/19 Albuterol Nebulized [Ventolin 2.5 mg INHALATION RT-QID PRN 03/27/17 08/11/19 Nebulized] Magnesium Gluconate [Magonate] 500 mg PO HS 03/27/17 08/11/19 Aspirin [Adult Low Dose Aspirin EC] 81 mg PO HS 11/26/17 08/11/19 Atorvastatin [Lipitor] 80 mg PO HS 11/26/17 08/11/19 Enalapril [Vasotec] 10 mg PO BID 11/26/17 08/11/19 Nitroglycerin Sl Tabs [Nitrostat] 0.4 mg SUBLINGUAL Q5M PRN 11/26/17 08/11/19 DULoxetine HCL [Cymbalta] 60 mg PO DAILY 08/25/18 08/11/19 Isosorbide Mononitrate ER [Imdur] 60 mg PO DAILY 09/08/18 08/11/19 Carvedilol [Coreg] 25 mg PO BID 01/22/19 08/11/19 Insulin Lispro [Admelog] 5 unit SQ HS 01/22/19 08/11/19 Insulin Lispro [Admelog] 11 unit SQ AC-BRKFST 01/22/19 08/11/19 Insulin Lispro [Admelog] 22 unit SQ AC-LUNCH 01/22/19 08/11/19 Insulin Lispro [Admelog] 25 unit SQ AC-SUPPER 01/22/19 08/11/19 Insulin Lispro [Admelog] See Protocol SQ ACHS 01/22/19 08/11/19 Ondansetron [Zofran] 4 mg PO TID PRN 06/23/19 08/11/19 Vitamin B Complex 1 cap PO DAILY 06/23/19 08/11/19 ALPRAZolam [Xanax] 0.5 mg PO AC-LUNCH 08/11/19 08/11/19 ALPRAZolam [Xanax] 0.5 mg PO DAILY 08/11/19 08/11/19 ALPRAZolam [Xanax] 2 mg PO HS 08/11/19 08/11/19 HYDROcodone/APAP 5-325MG [[place] 1 tab PO TID PRN 08/11/19 08/11/19 5-325] Morphine Sulfate [Ms Contin] 15 mg PO Q12HR PRN 08/11/19 08/11/19 Previous Rx's Medication Instructions Recorded Citalopram Hydrobromide [CeleXA] 40 mg PO DAILY #1 tab 03/10/15 Insulin Glargine [Lantus] 60 unit SQ DAILY #0 09/09/18 Pantoprazole [Protonix] 40 mg PO AC-BRKFST #30 tablet. 09/09/18 metFORMIN HCL 1,000 mg PO BID #0 09/09/18 Peg 3350-Na Sulf,Bicarb,Cl/KCl 4,000 ml PO DIRECTED #1 bottle 08/11/19 [Golytely Lavage] Allergies Allergy/AdvReac Type Severity Reaction Status Date / Time Fish Containing Products Allergy Unknown Verified 10/28/19 16:39 Iodinated Contrast Media Allergy throat Verified 10/28/19 16:39 [Iodinated Contrast Media - swelling IV Dye] Sulfa (Sulfonamide Allergy throat Verified 10/28/19 16:39 Antibiotics) swelling sulfamethoxazole Allergy throat Verified 10/28/19 16:39 [From ] swelling trimethoprim [From ] Allergy throat Verified 10/28/19 16:39 swelling NUTS Allergy Unknown Uncoded 10/28/19 16:39 Review of Systems ROS Statement: Those systems with pertinent positive or pertinent negative responses have been documented in the HPI. ROS Other: All systems not noted in ROS Statement are negative. 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 andper pt's spouse- slight foot drag when tired.diabetes mellitus insulin-dependent, hypertension, hyperlipidemia, fibromyalgia, obstructive sleep apnea, MS, questionable hypercoagulable disease, anxiety, depression, obesity, ovarian cyst, MIX5 Last Myocardial Infarction Date:: unk History of Any Multi-Drug Resistant Organisms: None Reported Past Surgical History: Section, Cholecystectomy, Heart Catheterization With Stent, Hysterectomy, Tubal Ligation, Uterine Ablation Additional Past Surgical History / Comment(s): vein stripping right leg, radio frequency ablation of right back-02/22/2015, four stents on 04/03/16 and one on march 05, ovaries removed, colonscopy- polyp removal Past Anesthesia/Blood Transfusion Reactions: Motion Sickness Additional Past Anesthesia/Blood Transfusion Reaction / Comment(s): mild clausterphobia Date of Last Stent Placement:: 2003 Past Psychological History: Anxiety, Depression Smoking Status: Current every day smoker Past Alcohol Use History: None Reported Past Drug Use History: None Reported - Past Family History Father Family Medical History: Congestive Heart Failure (CHF), Coronary Artery Disease (CAD), Diabetes Mellitus Mother Family Medical History: Cancer, Hypertension, Respiratory Disorder Additional Family Medical History / Comment(s): emphysema, colon CA General Exam - General Exam Comments Initial Comments: Constitutional: NAD, AOX3, Pt has pleasant affect. HEENT: NC/AT, trachea midline, neck supple, no lymphadenopathy. Posterior pharynx non erythematous, without exudates. External ears appear normal, without discharge. Mucous membranes moist. Eyes PERRLA, EOM intact. There is no scleral icterus. No pallor noted. Cardiopulmonary: RRR, no murmurs, rubs or gallops, no JVD noted. Lungs CTAB in anterior and posterior li. No peripheral edema. Abdominal exam: Abdomen soft and non-distended. Abdomen non-tender to palpation in all 4 quadrants. Bowel sounds active in LLQ. No hepatosplenomegaly. No ecchymosis Neuro: CN II-XII intact. No nuchal rigidity. No raccon eyes, no reyes sign, no hemotympanum. No cervical spinal tenderness. MSK: coccyx region mild tenderness to palpation. Small amount of ecchymoses. No posterior calf tenderness bilaterally, homans sign negative bilaterally. Posterior tibialis and radial pulse +2 bilaterally. Sensation intact in upper and lower extremities. Full active ROM in upper and lower extremities, 5/5 stregnth. Limitations: no limitations Course Vital Signs 10/28/19 16:36 Temperature 97.8 F Pulse Rate 63 Respiratory 20 Rate Blood Pressure 164/89 O2 Sat by Pulse 97 Oximetry Medical Decision Making - Medical Decision Making 49-year-old female patient presents to ED for chief complaint of fall on 09/19. She reports that she was walking up the stairs and fell right on her gluteus region. Patient which is having pain in her sacrum/coccyx. She denies any use of blood thinners. Denies a trauma head or neck. Reports that she is having difficulty with walking due to the pain in this region. Patient also complains that today while she was eating her on what she felt as if she was choking a little bit on the food. Has been able tolerate liquids without difficulty. Denies any other complaints. Patient vital signs stable, afebrile. Physical exam displayed calyces region nontender palpation. Small amount of ecchymoses. Plain films as negative. Patient experiencing muscular skeletal pain. Patient will be discharged will follow up with primary care provider will recommend a follow-up with GI for complains of dysphagia. Neurologic exam is within normal limits. Case discussed with Dr. Ortega. Disposition Clinical Impression: Fall Disposition: HOME SELF-CARE Condition: Stable Instructions (If sedation given, give patient instructions): Fall Prevention (ED) Additional Instructions: Follow-up with primary care provider tomorrow. Follow up with GI tomorrow. Use Tylenol Motrin as needed for discomfort. Return to ER if condition worsens. Is patient prescribed a controlled substance at d/c from ED?: No Referrals: Dagmar Hennessy MD [Primary Care Provider] - 1-2 days Kaylee Jasso MD [STAFF PHYSICIAN] - 1-2 days
[2019-10-28 18:17] VITALS: BP 150/86; PULSE 60; RESP 18; TEMP 98.2
== END 2019-10-28 18:17 | disposition home or self-care (01) ==
LOC: EC 16:34
DX: S30.0XXA Contusion of lower back and pelvis, initial encounter (principal); R13.10 Dysphagia, unspecified; I25.119 Atherosclerotic heart disease of native coronary artery with unspecified angina pectoris; E11.9 Type 2 diabetes mellitus without complications; M79.7 Fibromyalgia; E78.5 Hyperlipidemia, unspecified; I10 Essential (primary) hypertension; I25.2 Old myocardial infarction; G35 Multiple sclerosis; G47.33 Obstructive sleep apnea (adult) (pediatric); F32.9 Major depressive disorder, single episode, unspecified; F41.9 Anxiety disorder, unspecified; F17.200 Nicotine dependence, unspecified, uncomplicated; Z88.2 Allergy status to sulfonamides; Z91.013 Allergy to seafood; Z91.018 Allergy to other foods; Z91.041 Radiographic dye allergy status; Z79.4 Long term (current) use of insulin; Z79.82 Long term (current) use of aspirin; Z79.899 Other long term (current) drug therapy; Z85.41 Personal history of malignant neoplasm of cervix uteri; Z90.710 Acquired absence of both cervix and uterus; Z86.73 Personal history of transient ischemic attack (TIA), and cerebral infarction without residual deficits; Z95.5 Presence of coronary angioplasty implant and graft; Z98.890 Other specified postprocedural states; Z99.89 Dependence on other enabling machines and devices; W10.9XXA Fall (on) (from) unspecified stairs and steps, initial encounter; Y93.01 Activity, walking, marching and hiking; Y92.009 Unspecified place in unspecified non-institutional (private) residence as the place of occurrence of the external cause
CPT/HCPCS: 72220; 99284

== ENCOUNTER 2019-12-29 17:16 | Emergency (ER) | payer OTHER ==
[2019-12-29 17:41] VITALS: TEMP 98.1
[2019-12-29 19:00] LABS: Basophils % (A) 0 %; Eosinophils # (A) 0.1 k/uL (0-0.7); Eosinophils % (A) 1 %; HCT 45.3 % (34.0-46.0); HGB 15.3 gm/dL (11.4-16.0); Lymphocytes # (A) 1.5 k/uL (1.0-4.8); Lymphocytes % (A) 10 %; MCH 31.2 pg (25.0-35.0); MCHC 33.7 g/dL (31.0-37.0); MCV 92.5 fL (80.0-100.0); Monocytes # (A) 0.5 k/uL (0-1.0); Monocytes % (A) 3 %; Neutrophils # (A) 12.1 k/uL (1.3-7.7); Neutrophils % (A) 85 %; Platelet Count 224 k/uL (150-450); RBC 4.89 m/uL (3.80-5.40); RDW 13.4 % (11.5-15.5); WBC 14.2 k/uL (3.8-10.6)
[2019-12-29 19:09] LABS: ALT 13 U/L (4-34); AST 16 U/L (14-36); African American GFR (CKD) >90 (>60 ml/min/1.73 sqM); Albumin 4.2 g/dL (3.5-5.0); Alkaline Phosphatase 112 U/L (38-126); Amylase <30 U/L (30-110); Anion Gap 13 mmol/L; Blood Urea Nitrogen 22 mg/dL (7-17); Calcium 9.8 mg/dL (8.4-10.2); Carbon Dioxide 22 mmol/L (22-30); Chloride 96 mmol/L (98-107); Glucose 471 mg/dL (74-99); Non-African American GFR(CKD) >90 (>60 ml/min/1.73 sqM); Potassium 4.5 mmol/L (3.5-5.1); Sodium 131 mmol/L (137-145); Total Bilirubin 0.5 mg/dL (0.2-1.3); Total Protein 6.8 g/dL (6.3-8.2)
--- NOTE | 2019-12-29 19:12 | ED ---
General Adult HPI - General Chief complaint: Nausea/Vomiting/Diarrhea Stated complaint: Fall Time Seen by Provider: 12/29/19 17:40 Source: patient, RN notes reviewed, old records reviewed Mode of arrival: ambulatory Limitations: physical limitation - History of Present Illness Initial comments: This 49-year-old female presents emergency Department stating that last night she fell and hurt her right hip and her right arm. Patient states she's had a stroke in the past so she doesn't have is the sensation she does any other side but they both hurt today. Patient also complains of having nausea vomiting and diarrhea all day today. Patient states she has a little bit of lower abdominal pain. Patient denies any fever chills per patient denies any chest pain difficult breathing shortness breath per patient denies any back pain. Patient denies any dysuria hematuria urinary frequency. - Related Data Home Medications Medication Instructions Recorded Confirmed Fenofibrate [Lofibra] 160 mg PO HS 03/02/15 08/11/19 Pregabalin [Lyrica] 150 mg PO BID 06/25/15 08/11/19 Cholecalciferol [Vitamin D3 (25 5,000 unit PO HS 01/15/16 08/11/19 Mcg = 1000 Iu)] Folic Acid 2 mg PO DAILY 03/24/16 08/11/19 lamoTRIgine 200 mg PO BID 07/30/16 08/11/19 Albuterol Nebulized [Ventolin 2.5 mg INHALATION RT-QID PRN 03/27/17 08/11/19 Nebulized] Magnesium Gluconate [Magonate] 500 mg PO HS 03/27/17 08/11/19 Aspirin [Adult Low Dose Aspirin EC] 81 mg PO HS 11/26/17 08/11/19 Atorvastatin [Lipitor] 80 mg PO HS 11/26/17 08/11/19 Enalapril [Vasotec] 10 mg PO BID 11/26/17 08/11/19 Nitroglycerin Sl Tabs [Nitrostat] 0.4 mg SUBLINGUAL Q5M PRN 11/26/17 08/11/19 DULoxetine HCL [Cymbalta] 60 mg PO DAILY 08/25/18 08/11/19 Isosorbide Mononitrate ER [Imdur] 60 mg PO DAILY 09/08/18 08/11/19 Carvedilol [Coreg] 25 mg PO BID 01/22/19 08/11/19 Insulin Lispro [Admelog] 5 unit SQ HS 01/22/19 08/11/19 Insulin Lispro [Admelog] 11 unit SQ AC-BRKFST 01/22/19 08/11/19 Insulin Lispro [Admelog] 22 unit SQ AC-LUNCH 01/22/19 08/11/19 Insulin Lispro [Admelog] 25 unit SQ AC-SUPPER 01/22/19 08/11/19 Insulin Lispro [Admelog] See Protocol SQ ACHS 01/22/19 08/11/19 Ondansetron [Zofran] 4 mg PO TID PRN 06/23/19 08/11/19 Vitamin B Complex 1 cap PO DAILY 06/23/19 08/11/19 ALPRAZolam [Xanax] 0.5 mg PO AC-LUNCH 08/11/19 08/11/19 ALPRAZolam [Xanax] 0.5 mg PO DAILY 08/11/19 08/11/19 ALPRAZolam [Xanax] 2 mg PO HS 08/11/19 08/11/19 HYDROcodone/APAP 5-325MG [[place] 1 tab PO TID PRN 08/11/19 08/11/19 5-325] Morphine Sulfate [Ms Contin] 15 mg PO Q12HR PRN 08/11/19 08/11/19 Previous Rx's Medication Instructions Recorded Citalopram Hydrobromide [CeleXA] 40 mg PO DAILY #1 tab 03/10/15 Insulin Glargine [Lantus] 60 unit SQ DAILY #0 09/09/18 Pantoprazole [Protonix] 40 mg PO [facility] #30 tablet. 09/09/18 metFORMIN HCL 1,000 mg PO BID #0 09/09/18 Peg 3350-Na Sulf,Bicarb,Cl/KCl 4,000 ml PO DIRECTED #1 bottle 08/11/19 [Golytely Lavage] Allergies Allergy/AdvReac Type Severity Reaction Status Date / Time Fish Containing Products Allergy Unknown Verified 12/29/19 17:41 Iodinated Contrast Media Allergy throat Verified 12/29/19 17:41 [Iodinated Contrast Media - swelling IV Dye] Sulfa (Sulfonamide Allergy throat Verified 12/29/19 17:41 Antibiotics) swelling sulfamethoxazole Allergy throat Verified 12/29/19 17:41 [From Junra] swelling trimethoprim [From ] Allergy throat Verified 12/29/19 17:41 swelling NUTS Allergy Unknown Uncoded 12/29/19 17:41 Review of Systems ROS Statement: Those systems with pertinent positive or pertinent negative responses have been documented in the HPI. ROS Other: All systems not noted in ROS Statement are negative. 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 andper pt's spouse- slight foot drag when tired.diabetes mellitus insulin-dependent, hypertension, hyperlipidemia, fibromyalgia, obstructive sleep apnea, MS, questionable hypercoagulable disease, anxiety, depression, obesity, ovarian cyst, MIX5 Last Myocardial Infarction Date:: unk History of Any Multi-Drug Resistant Organisms: None Reported Past Surgical History: Section, Cholecystectomy, Heart Catheterization With Stent, Hysterectomy, Tubal Ligation, Uterine Ablation Additional Past Surgical History / Comment(s): vein stripping right leg, radio frequency ablation of right back-02/22/2015, four stents on 04/03/16 and one on , ovaries removed, colonscopy- polyp removal Past Anesthesia/Blood Transfusion Reactions: Motion Sickness Additional Past Anesthesia/Blood Transfusion Reaction / Comment(s): mild clausterphobia Date of Last Stent Placement:: 2003 Past Psychological History: Anxiety, Depression Smoking Status: Current some day smoker Past Alcohol Use History: None Reported Past Drug Use History: None Reported - Past Family History Father Family Medical History: Congestive Heart Failure (CHF), Coronary Artery Disease (CAD), Diabetes Mellitus Mother Family Medical History: Cancer, Hypertension, Respiratory Disorder Additional Family Medical History / Comment(s): emphysema, colon CA General Exam - General Exam Comments Initial Comments: GENERAL: Patient is well-developed and well-nourished. Patient is nontoxic and well- hydrated and is in mild distress. ENT: Neck is soft and supple. No significant lymphadenopathy is noted. Oropharynx is clear. Moist mucous membranes. Neck has full range of motion without eliciting any pain. EYES: The sclera were anicteric and conjunctiva were pink and moist. Extraocular movements were intact and pupils were equal round and reactive to light. Eyelids were unremarkable. PULMONARY: Unlabored respirations. Good breath sounds bilaterally. No audible rales rhonchi or wheezing was noted. CARDIOVASCULAR: There is a regular rate and rhythm without any murmurs gallops or rubs. ABDOMEN: Soft and nontender with normal bowel sounds. SKIN: Skin is clear with no lesions or rashes and otherwise unremarkable. NEUROLOGIC: Patient is alert and oriented x3. Cranial nerves II through XII are grossly intact. Motor and sensory are also intact. Normal speech, volume and content. Symmetrical smile. MUSCULOSKELETAL: Patient has some mid humerus pain as well as some lateral right hip pain LYMPHATICS: No significant lymphadenopathy is noted PSYCHIATRIC: Normal psychiatric evaluation. Limitations: physical limitation Course Vital Signs 12/29/19 12/29/19 12/29/19 17:38 18:41 19:12 Temperature 98.1 F Pulse Rate 79 81 Respiratory 16 20 20 Rate Blood Pressure 143/82 138/73 O2 Sat by Pulse 97 96 Oximetry Medical Decision Making - Medical Decision Making Patient has no abdominal pain on palpation. Patient's glucose was elevated and received 10 of NovoLog Aerobic in the room to reevaluate the patient she was sleeping and had not vomited or had any diarrhea since arrival. Patient states she had not been taking her insulin today - Lab Data Result diagrams: 12/29/19 18:45 12/29/19 18:45 Lab Results 12/29/19 12/29/19 Range/Units 18:45 18:45 WBC 14.2 H (3.8-10.6) k/uL RBC 4.89 (3.80-5.40) m/uL Hgb 15.3 (11.4-16.0) gm/dL Hct 45.3 (34.0-46.0) % MCV 92.5 (80.0-100.0) fL MCH 31.2 (25.0-35.0) pg MCHC 33.7 (31.0-37.0) g/dL RDW 13.4 (11.5-15.5) % Plt Count 224 (150-450) k/uL Neutrophils % 85 % Lymphocytes % 10 % Monocytes % 3 % Eosinophils % 1 % Basophils % 0 % Neutrophils # 12.1 H (1.3-7.7) k/uL Lymphocytes # 1.5 (1.0-4.8) k/uL Monocytes # 0.5 (0-1.0) k/uL Eosinophils # 0.1 (0-0.7) k/uL Basophils # 0.0 (0-0.2) k/uL Sodium 131 L (137-145) mmol/L Potassium 4.5 (3.5-5.1) mmol/L Chloride 96 L (98-107) mmol/L Carbon Dioxide 22 (22-30) mmol/L Anion Gap 13 mmol/L BUN 22 H (7-17) mg/dL Creatinine 0.77 (0.52-1.04) mg/dL Est GFR (CKD-EPI)AfAm >90 (>60 ml/min/1.73 sqM) Est GFR (CKD-EPI)NonAf >90 (>60 ml/min/1.73 sqM) Glucose 471 H (74-99) mg/dL Calcium 9.8 (8.4-10.2) mg/dL Total Bilirubin 0.5 (0.2-1.3) mg/dL AST 16 (14-36) U/L ALT 13 (4-34) U/L Alkaline Phosphatase 112 (38-126) U/L Total Protein 6.8 (6.3-8.2) g/dL Albumin 4.2 (3.5-5.0) g/dL Amylase <30 L (30-110) U/L Lipase 64 (23-300) U/L Disposition Clinical Impression: Fall, Multiple contusions, Hyperglycemia, Gastroenteritis Disposition: HOME SELF-CARE Instructions (If sedation given, give patient instructions): Gastroenteritis (ED) Additional Instructions: Patient should monitor her glucose closely and take her insulin as prescribed and follow up tomorrow with her primary medical care doctor Is patient prescribed a controlled substance at d/c from ED?: No Referrals: Dagmar Hennessy MD [Primary Care Provider] - 1-2 days Time of Disposition: 20:19
--- NOTE | 2019-12-29 19:12 | XR ---
EXAMINATION TYPE: XR KUB DATE OF EXAM: 12/29/2019 COMPARISON: 10/11/2019 HISTORY: Right upper quadrant pain TECHNIQUE: 2 views upright FINDINGS: There is no sign of intestinal obstruction or pneumoperitoneum. Fecal pattern is normal. Th ere are no pathologic calcifications over the kidneys. Lung bases are clear. There is no sign of a ma ss. There are clips from cholecystectomy. IMPRESSION: Nonacute abdomen. No change.
--- NOTE | 2019-12-29 19:14 | XR ---
EXAMINATION TYPE: XR humerus RT DATE OF EXAM: 12/29/2019 COMPARISON: NONE HISTORY: Fall. Arm pain. TECHNIQUE: 2 views FINDINGS: Shoulder joint and elbow joint appear intact. I see no fracture nor dislocation. There are no pathologic calcifications. IMPRESSION: Negative right humerus exam.
--- NOTE | 2019-12-29 19:16 | XR ---
EXAMINATION TYPE: XR Hip RT and AP Pelvis DATE OF EXAM: 12/29/2019 COMPARISON: 03/29/2015 HISTORY: Fall. Hip pain. TECHNIQUE: 3 views FINDINGS: Pelvic ring is intact. Proximal right femur and hip joint appear intact. There is no sign o f hip dysplasia. Sacroiliac joints appear normal. IMPRESSION: No fracture seen. No change compared to old exam.
[2019-12-29] MEDS ORDERED: INSULIN ASPART (NovoLOG) 100 UNIT/ML VIAL SQ ONE (20:11)
[2019-12-29] MEDS ORDERED: ONDANSETRON 4 MG/2 ML VIAL IVP STA (20:15)
[2019-12-29 20:23] VITALS: BP 139/72; PULSE 76; RESP 18
== END 2019-12-29 20:25 | disposition home or self-care (01) ==
LOC: EC 17:16
DX: K52.9 Noninfective gastroenteritis and colitis, unspecified (principal); E11.65 Type 2 diabetes mellitus with hyperglycemia; S40.021A Contusion of right upper arm, initial encounter; S70.01XA Contusion of right hip, initial encounter; F41.9 Anxiety disorder, unspecified; F32.9 Major depressive disorder, single episode, unspecified; I25.2 Old myocardial infarction; M79.7 Fibromyalgia; E78.5 Hyperlipidemia, unspecified; I10 Essential (primary) hypertension; G25.81 Restless legs syndrome; F17.200 Nicotine dependence, unspecified, uncomplicated; I25.119 Atherosclerotic heart disease of native coronary artery with unspecified angina pectoris; I69.351 Hemiplegia and hemiparesis following cerebral infarction affecting right dominant side; G47.33 Obstructive sleep apnea (adult) (pediatric); G35 Multiple sclerosis; Z79.4 Long term (current) use of insulin; Z79.899 Other long term (current) drug therapy; Z79.82 Long term (current) use of aspirin; Z95.5 Presence of coronary angioplasty implant and graft; Z91.013 Allergy to seafood; Z91.041 Radiographic dye allergy status; Z88.2 Allergy status to sulfonamides; Z88.1 Allergy status to other antibiotic agents; Z91.010 Allergy to peanuts; Z85.41 Personal history of malignant neoplasm of cervix uteri; Z99.89 Dependence on other enabling machines and devices; Z90.49 Acquired absence of other specified parts of digestive tract; Z83.3 Family history of diabetes mellitus; W19.XXXA Unspecified fall, initial encounter; Y92.009 Unspecified place in unspecified non-institutional (private) residence as the place of occurrence of the external cause
CPT/HCPCS: 36415; 80053; 82150; 83690; 85025; 73502; 73060; 74018; 99284; 96374; J2405

== ENCOUNTER → 2020-01-06 | Outpatient (CLI) | payer OTHER ==
[2020-01-06 16:19] LABS: Basophils # (A) 0.1 k/uL (0-0.2); Basophils % (A) 1 %; Eosinophils # (A) 0.1 k/uL (0-0.7); Eosinophils % (A) 1 %; HCT 42.8 % (34.0-46.0); HGB 14.2 gm/dL (11.4-16.0); Lymphocytes % (A) 30 %; MCHC 33.3 g/dL (31.0-37.0); MCV 93.1 fL (80.0-100.0); Mean Platelet Volume 8.5; Monocytes # (A) 0.3 k/uL (0-1.0); Monocytes % (A) 3 %; Neutrophils # (A) 6.6 k/uL (1.3-7.7); Neutrophils % (A) 64 %; Platelet Count 233 k/uL (150-450); RBC 4.59 m/uL (3.80-5.40); RDW 13.4 % (11.5-15.5); WBC 10.3 k/uL (3.8-10.6)
[2020-01-07 00:41] LABS: Hemoglobin A1C 11.2 % (4.0-6.0)
[2020-01-07 01:57] LABS: African American GFR (CKD) 87.6 (60.0-200.0); Albumin 4.2 g/dL (3.80-4.90); Albumin/Globulin Ratio 2.33 (1.60-3.17); Anion Gap 10.2 mmol/L (4.00-12.00); BUN/Creat Ratio 18.89 Ratio (12.00-20.00); Calcium 9.6 mg/dL (8.7-10.3); Carbon Dioxide 24.8 mmol/L (21.6-31.8); Globulin 1.8 g/dL (1.6-3.3); Non-African American GFR(CKD) 75.6 (60.0-200.0); Potassium 4.2 mmol/L (3.5-5.5); Total Bilirubin 0.4 mg/dL (0.2-1.2)
[2020-01-07 03:24] LABS: Hepatitis B Core IgM Non-Reactive (Non-Reactive); Hepatitis B Surface AB- Quant 3.5 mIU/mL; Hepatitis B Surface Antibody Non-Reactive (Non-Reactive); Hepatitis B Surface Antigen Non-Reactive (Non-Reactive)
[2020-01-07 06:55] LABS: HIV 1 AB Non-Reactive (Non-Reactive); HIV 2 AB Non-Reactive (Non-Reactive); HIV AB P24 Non-Reactive (Non-Reactive); HIV P24 AG Non-Reactive (Non-Reactive)
[2020-01-08 07:59] LABS: Vit B1(Thiamine) 84 ug/L (38-122)
== END | disposition home or self-care (01) ==
LOC: LABWHC1 14:36
PROVIDERS: ATTEND Psychiatry & Neurology Pain Medicine
DX: Z51.81 Encounter for therapeutic drug level monitoring (principal); Z79.899 Other long term (current) drug therapy; G35 Multiple sclerosis
CPT/HCPCS: 36415; 80053; 82306; 82607; 83036; 84207; 84425; 84439; 84443; 84481; 84591; 85025; 86704; 86705; 86706; 86787; 87340; 87390

== ENCOUNTER → 2020-11-14 | Day surgery (SDC) | payer OTHER ==
[2020-11-08 14:18] VITALS: BMI 32.5
[~2020-11-14] MED LIST: INSULIN ASPART (NovoLOG) 100 UNIT/ML VIAL SQ ONE; SODIUM CHLORIDE 0.9% 1,000 ML IV SCH
[2020-11-14 08:03] VITALS: RESP 16; TEMP 97.6
[2020-11-14 08:08] LABS: Glucose,Whole Blood 258 mg/dL (75-99)
--- NOTE | 2020-11-14 10:09 | P.EPPROC ---
- EP Procedure Note Electrophysiology Procedure Note: Diagnosis Recurrent syncope Baseline 12-lead EKG shows sinus rhythm normal KS (anterior fascicular block No delta waves normal QT interval Terminal sharp signal in the QRS in lead V1 Tilt table test per protocol Baseline blood pressure elevated at 202/93 mmHg Patient tilted upright at an angle of 70 per protocol. Mild drop in blood pressure by about 15 mmHg Blood pressure remained between 180-190 mmHg and the diastolic blood pressure remained in the 90s When she was laid supine at the end of the procedure her blood pressure was 203/95 mmHg once again She felt dizzy, fuzzy in the head and she got dizzy when she was tilted upright Impression Systolic and diastolic hypertension Abnormal ECG with left anterior fascicular block and a terminal sharp deflection the end of the QRS in lead V1, possible epsilon wave
[2020-11-14 10:30] VITALS: BP 141/76; PULSE 67
== END ==
LOC: CATHEP 07:32
PROVIDERS: ATTEND Internal Medicine Clinical Cardiac Electrophysiology
DX: R55 Syncope and collapse (principal); I44.4 Left anterior fascicular block; I10 Essential (primary) hypertension
CPT/HCPCS: 93005; 93660

== ENCOUNTER 2020-12-25 14:46 | Emergency (ER) | payer OTHER ==
[2020-12-25 14:55] VITALS: BP 157/86; PULSE 67; TEMP 98.4
[2020-12-25] MEDS ORDERED: SODIUM CHLORIDE 0.9% 1,000 ML IV ONE (15:03)
--- NOTE | 2020-12-25 15:07 | ED ---
Fall HPI - General Source: patient, EMS, RN notes reviewed Mode of arrival: EMS <Paxton Goodman - Last Filed: 12/25/20 15:56> <ShannonGem Maynor - Last Filed: 12/27/20 13:40> - General Chief Complaint: Fall Stated Complaint: hip injury Time Seen by Provider: 12/25/20 14:59 - History of Present Illness Initial Comments: Patient is a 50-year-old female presents to emergency department status post fall with right hip and right elbow pain. She noted that she slipped and fell out of her wheelchair and landed on her right hip and right elbow. She denied hitting her head or losing consciousness that she stated that she lifted her head up to avoid hitting it. She stated that she is having moderate pain that is about a 6 out of 10 currently, EMS gave her 100 g of fentanyl that she noted took the edge off. She denied wanting any more pain medication at this time. Patient was unable to move right right foot or lower leg due to nonfunction from past stroke. Patient was able to move her entire right lower extremity at the hip joint minimally with good effort. She denied any new weakness, numbness, tingling chest pain shortness of breath headache nausea vomiting diarrhea constipation fever fatigue chills (Paxton Goodman) - Related Data Home Medications Medication Instructions Recorded Confirmed Fenofibrate [Lofibra] 160 mg PO DAILY 03/02/15 11/14/20 Pregabalin [Lyrica] 150 mg PO BID 06/25/15 11/14/20 Cholecalciferol [Vitamin D3 (25 2,000 unit PO HS 01/15/16 11/14/20 Mcg = 1000 Iu)] lamoTRIgine 200 mg PO BID 07/30/16 11/14/20 Albuterol Nebulized [Ventolin 2.5 mg INHALATION RT-QID PRN 03/27/17 11/08/20 Nebulized] Magnesium Gluconate [Magonate] 500 mg PO HS 03/27/17 11/14/20 Aspirin [Adult Low Dose Aspirin EC] 81 mg PO HS 11/26/17 11/14/20 Atorvastatin [Lipitor] 40 mg PO HS 11/26/17 11/14/20 Enalapril [Vasotec] 10 mg PO BID 11/26/17 11/14/20 Nitroglycerin Sl Tabs [Nitrostat] 0.4 mg SUBLINGUAL Q5M PRN 11/26/17 11/14/20 DULoxetine HCL [Cymbalta] 60 mg PO DAILY 08/25/18 11/14/20 Isosorbide Mononitrate ER [Imdur] 60 mg PO DAILY 09/08/18 11/14/20 Carvedilol [Coreg] 25 mg PO BID 01/22/19 11/14/20 Vitamin B Complex 1 cap PO HS 06/23/19 11/14/20 ALPRAZolam [Xanax] 2 mg PO HS 08/11/19 11/14/20 Morphine Sulfate [Ms Contin] 15 mg PO Q12HR PRN 08/11/19 11/14/20 ARIPiprazole [Abilify] 2 mg PO DAILY 11/08/20 11/14/20 Clopidogrel [Plavix] 75 mg PO HS 11/08/20 11/14/20 Famotidine [Pepcid] 20 mg PO DAILY 11/08/20 11/14/20 Folic Acid 1 mg PO BID 11/08/20 11/14/20 HYDROcodone/APAP 5-325MG [[place] 1 tab PO BID PRN 11/08/20 11/14/20 5-325] INSULIN LISPRO (humaLOG) [humaLOG] 0 units SQ AC-TID PRN 11/08/20 11/14/20 INSULIN LISPRO (humaLOG) [humaLOG] 25 units SQ AC-LUNCH 11/08/20 11/14/20 INSULIN LISPRO (humaLOG) [humaLOG] 35 units SQ AC-BRKFST 11/08/20 11/14/20 Insulin Glargine,Hum.rec.anlog 36 unit SQ BID 11/08/20 11/14/20 [Lantus Solostar] Insulin Lispro [humaLOG] 25 units SQ AC-SUPPER 11/08/20 11/14/20 Previous Rx's Medication Instructions Recorded Citalopram Hydrobromide [CeleXA] 40 mg PO DAILY #1 tab 03/10/15 Pantoprazole [Protonix] 40 mg PO AC-BRKFST #30 tablet 09/09/18 metFORMIN HCL 1,000 mg PO BID #0 09/09/18 Allergies Allergy/AdvReac Type Severity Reaction Status Date / Time Fish Containing Products Allergy Unknown Verified 11/08/20 13:55 Iodinated Contrast Media Allergy throat Verified 11/08/20 13:55 [Iodinated Contrast Media - swelling IV Dye] Sulfa (Sulfonamide Allergy throat Verified 11/08/20 13:55 Antibiotics) swelling sulfamethoxazole Allergy throat Verified 11/08/20 13:55 [From Septra] swelling trimethoprim [From Septra] Allergy throat Verified 11/08/20 13:55 swelling NUTS Allergy Unknown Uncoded 11/08/20 13:55 Review of Systems ROS Other: All systems not noted in ROS Statement are negative. <Paxton Goodman - Last Filed: 12/25/20 15:56> ROS Other: All systems not noted in ROS Statement are negative. <Gem Ortega - Last Filed: 12/27/20 13:40> ROS Statement: Those systems with pertinent positive or pertinent negative responses have been documented in the HPI. Past Medical History Past Medical History: Cancer, Chest Pain / Angina, CVA/TIA, Diabetes Mellitus, Fibromyalgia, Hyperlipidemia, Hypertension, Myocardial Infarction ([place]), Musculoskeletal Disorder, Neurologic Disorder, Sleep Apnea/CPAP/BIPAP Additional Past Medical History / Comment(s): See Dr Pompa's H&P. 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 - slight foot drag when tired.diabetes mellitus insulin-dependent, MS, questionable hypercoagulable disease, ovarian cyst, MIX5 has cpap, syncope Last Myocardial Infarction Date:: unk History of Any Multi-Drug Resistant Organisms: None Reported Past Surgical History: Section, Cholecystectomy, Heart Catheterization With Stent, Hysterectomy, Tubal Ligation, Uterine Ablation Additional Past Surgical History / Comment(s): vein stripping right leg, radio frequency ablation of right back-02/22/2015, four stents on 04/03/16 and one on march 05, ovaries removed, colonscopy- polyp removal Past Anesthesia/Blood Transfusion Reactions: Motion Sickness Additional Past Anesthesia/Blood Transfusion Reaction / Comment(s): mild claustrophobia Date of Last Stent Placement:: 04/03/16 Past Psychological History: Anxiety, Depression Smoking Status: Current every day smoker Past Alcohol Use History: None Reported Past Drug Use History: None Reported - Past Family History Father Family Medical History: Congestive Heart Failure (CHF), Coronary Artery Disease (CAD), Diabetes Mellitus Mother Family Medical History: Cancer, Hypertension, Respiratory Disorder Additional Family Medical History / Comment(s): emphysema, colon CA <Paxton Goodman - Last Filed: 12/25/20 15:56> General Exam Limitations: no limitations General appearance: alert, in no apparent distress Head exam: Present: atraumatic, normocephalic, normal inspection Eye exam: Present: normal appearance, PERRL, EOMI. Absent: scleral icterus, conjunctival injection, periorbital swelling Neck exam: Present: normal inspection. Absent: tenderness, meningismus, lymphadenopathy Respiratory exam: Present: normal lung sounds bilaterally. Absent: respiratory distress, wheezes, rales, rhonchi, stridor Cardiovascular Exam: Present: regular rate, normal rhythm, normal heart sounds. Absent: systolic murmur, diastolic murmur, rubs, gallop, clicks GI/Abdominal exam: Present: soft, normal bowel sounds. Absent: distended, tende rness, guarding, rebound, rigid Extremities exam: Present: normal inspection, full ROM (Decreased range of motion of right lower extremity due to past stroke.), tenderness (Over right hip and had a femur.), normal capillary refill. Absent: pedal edema, joint swelling, calf tenderness Back exam: Present: normal inspection Neurological exam: Present: alert, oriented X3, CN II-XII intact Psychiatric exam: Present: normal affect, normal mood Skin exam: Present: warm, dry, intact, normal color. Absent: rash <Paxton Goodman - Last Filed: 12/25/20 15:56> Course Vital Signs 12/25/20 12/25/20 12/25/20 14:48 15:55 16:12 Temperature 98.4 F 98.4 F Pulse Rate 67 67 Respiratory 16 18 18 Rate Blood Pressure 157/86 157/86 O2 Sat by Pulse 97 97 Oximetry Medical Decision Making - Radiology Data Radiology results: report reviewed, image reviewed <Paxton Goodman - Last Filed: 12/25/20 15:56> <Gem Ortega - Last Filed: 12/27/20 13:40> - Medical Decision Making 50-year-old female status post slip out of the wheelchair with right hip and elbow pain. Right elbow and right hip x-ray ordered, 1 L normal saline ordered. Patient able to self transfer with assistance from her which she states is normal for her at home. She has had no minimal soreness. Case discussed with Dr. Ortega, it was decided patient could discharge home. (Paxton Goodman) I was available for consultation in the emergency department. The history and physical exam were done by the midlevel provider. I was consulted for this patients care. I reviewed the case with the midlevel provider and based on their presentation of the patient, I agree with the assessment, medical decision making and plan of care as documented. Chart was dictated using [employer] dictation software. Attempts were made to correct any dictation errors however some typographical errors may persist. Patient was seen during a national state of emergency due to the Covid-19 pandemic. (Gem Ortega) - Radiology Data Acetabular spurring. No fracture of right hip. Negative right elbow exam. (Paxton Goodman) Disposition Is patient prescribed a controlled substance at d/c from ED?: No Time of Disposition: 15:49 <Paxton Goodman - Last Filed: 12/25/20 15:56> <Gem Ortega - Last Filed: 12/27/20 13:40> Clinical Impression: Fall, Right hip pain, Right elbow pain Disposition: HOME SELF-CARE Instructions (If sedation given, give patient instructions): Fall Prevention for Older Adults (ED) Additional Instructions: Please return to the Emergency Department if symptoms worsen or any other concerns. Follow-up with primary care 1-2 days. Continue to take pain medication at home as prescribed. Referrals: Dagmar Hennessy MD [Primary Care Provider] - 1-2 days
--- NOTE | 2020-12-25 15:38 | XR ---
EXAMINATION TYPE: XR Hip Complete RT DATE OF EXAM: 12/25/2020 COMPARISON: NONE HISTORY: Hip pain TECHNIQUE: 2 views FINDINGS: I see no fracture nor dislocation. There is some spurring of the acetabulum sacroiliac join t appears normal. IMPRESSION: Acetabular spurring. No fracture.
--- NOTE | 2020-12-25 15:43 | XR ---
EXAMINATION TYPE: XR elbow limited RT DATE OF EXAM: 12/25/2020 COMPARISON: NONE HISTORY: Elbow pain TECHNIQUE: 2 views FINDINGS: I see no fracture nor dislocation. Joint spaces are normal. There is no sign of elbow joint effusion. IMPRESSION: Negative right elbow exam.
[2020-12-25 16:24] VITALS: RESP 18
== END 2020-12-25 16:13 | disposition home or self-care (01) ==
LOC: EC 14:46
DX: M25.551 Pain in right hip (principal); M25.521 Pain in right elbow; I10 Essential (primary) hypertension; I25.10 Atherosclerotic heart disease of native coronary artery without angina pectoris; I25.2 Old myocardial infarction; F41.9 Anxiety disorder, unspecified; F17.200 Nicotine dependence, unspecified, uncomplicated; F32.9 Major depressive disorder, single episode, unspecified; E11.9 Type 2 diabetes mellitus without complications; E78.5 Hyperlipidemia, unspecified; Z86.73 Personal history of transient ischemic attack (TIA), and cerebral infarction without residual deficits; Z79.4 Long term (current) use of insulin; Z79.82 Long term (current) use of aspirin; W05.0XXA Fall from non-moving wheelchair, initial encounter
CPT/HCPCS: 73502

== ENCOUNTER → 2021-02-15 | Outpatient (CLI) | payer OTHER ==
--- NOTE | 2021-02-15 13:24 | CT ---
EXAMINATION TYPE: CT angio head DATE OF EXAM: 02/15/2021 1:01 PM COMPARISON: MRA brain March 03, 2015. CTA brain June 23, 2019 HISTORY: headache, history of prior strokes CT DLP: 2147 mGycm Automated exposure control for dose reduction was used. TECHNIQUE: Performed without and with IV Contrast, patient injected with 100 mL of Isovue 370. 3D reconstructed images are created on an independent workstation and reviewed.. FINDINGS: CT of brain demonstrates no acute intracranial hemorrhage . There is redemonstration of old infarct o r encephalomalacia in the left estevez radiata with inferior extension causing ex vacuo dilatation of the left lateral ventricular system versus right side and subtle midline shift. No significant change from prior CT. Mild to moderate ventricular and sulcal prominence is redemonstrated. Additional mild low attenuation in the deep and periventricular white matter. Moderate vascular calcification of the distal internal carotid arteries. Globes are intact and visualized sinuses are clear. There is codominant vertebrobasilar system. Vertebral arteries are patent to basilar junction. There is no significant focal stenosis or aneurysmal change in the posterior circulation. Hypoplastic bilat eral posterior communicating arteries is redemonstrated. Images of the anterior circulation show clos e proximity but nonvisualized or hypoplastic anterior communicating artery. There is no significant f ocal stenosis or aneurysmal change in the anterior circulation. IMPRESSION: No significant focal stenosis or aneurysm at the level of the [place]. No signif icant change from 2015 MRI.
== END | disposition home or self-care (01) ==
LOC: RADCTMAIN 11:24
PROVIDERS: ATTEND Psychiatry & Neurology Neurology
DX: R51.9 Headache, unspecified (principal); Z86.73 Personal history of transient ischemic attack (TIA), and cerebral infarction without residual deficits
CPT/HCPCS: 82565; 84520; 70496; 36415; Q9967

== ENCOUNTER 2021-07-31 12:06 | Observation (INO) | payer OTHER ==
[2021-07-31 12:55] LABS: Anisocytosis Slight; Basophils # (A) 0.1 k/uL (0-0.2); Basophils % (A) 0 %; Eosinophils # (A) 0.3 k/uL (0-0.7); Eosinophils % (A) 2 %; HCT 33.9 % (34.0-46.0); HGB 10.7 gm/dL (11.4-16.0); Hypochromasia Slight; Lymphocytes # (A) 1.5 k/uL (1.0-4.8); Lymphocytes % (A) 12 %; MCH 25.6 pg (25.0-35.0); MCHC 31.5 g/dL (31.0-37.0); MCV 81.3 fL (80.0-100.0); Mean Platelet Volume 8.9; Monocytes # (A) 0.5 k/uL (0-1.0); Monocytes % (A) 4 %; Neutrophils # (A) 9.8 k/uL (1.3-7.7); Neutrophils % (A) 80 %; Platelet Count 291 k/uL (150-450); Poikilocytosis Slight; RBC 4.17 m/uL (3.80-5.40); RDW 16.6 % (11.5-15.5); WBC 12.3 k/uL (3.8-10.6)
[2021-07-31 13:11] LABS: Partial Thromboplastin Time 27.5 sec (22.0-30.0); Prothrombin Time 11.1 sec (9.0-12.0)
[2021-07-31] MEDS ORDERED: ASPIRIN 81 MG PO STA (13:22)
[2021-07-31] MEDS ORDERED: NITROGLYCERIN OINT 1 INCH/GM PACKET TOPICAL STA (13:22)
[2021-07-31 13:24] LABS: Albumin 3.8 g/dL (3.5-5.0); Calcium 9.6 mg/dL (8.4-10.2); Potassium 4.4 mmol/L (3.5-5.1); Total Bilirubin 0.3 mg/dL (0.2-1.3); Total Protein 6.3 g/dL (6.3-8.2)
--- NOTE | 2021-07-31 13:26 | ED ---
General Adult HPI - General Chief complaint: Chest Pain Stated complaint: Chest Pain, BOOGIE Time Seen by Provider: 07/31/21 12:15 Source: patient, RN notes reviewed, old records reviewed Mode of arrival: ambulatory Limitations: no limitations - History of Present Illness Initial comments: This is a 50-year-old female presents emergency department with past medical history significant for coronary artery disease and 5 stents. Patient also has diabetes hypertension high cholesterol. Patient states the last 3 days she's been having intermittent chest pain. Patient states it typically lasts about an hour and it radiates to her right arm. Patient denies any shortness of breath or difficulty breathing. Patient states she has been diaphoretic with some episodes. Patient denies any nausea vomiting. Patient denies any recent fever chills or cough per patient denies headache patient denies numbness weakness. Patient denies abdominal pain. Patient states she has some swelling to legs but no calf tenderness. - Related Data Home Medications Medication Instructions Recorded Confirmed Fenofibrate [Lofibra] 160 mg PO DAILY 03/02/15 11/14/20 Pregabalin [Lyrica] 150 mg PO BID 06/25/15 11/14/20 Cholecalciferol [Vitamin D3 (25 2,000 unit PO HS 01/15/16 11/14/20 Mcg = 1000 Iu)] lamoTRIgine 200 mg PO BID 07/30/16 11/14/20 Albuterol Nebulized [Ventolin 2.5 mg INHALATION RT-QID PRN 03/27/17 11/08/20 Nebulized] Magnesium Gluconate [Magonate] 500 mg PO HS 03/27/17 11/14/20 Aspirin [Adult Low Dose Aspirin EC] 81 mg PO HS 11/26/17 11/14/20 Atorvastatin [Lipitor] 40 mg PO HS 11/26/17 11/14/20 Enalapril [Vasotec] 10 mg PO BID 11/26/17 11/14/20 Nitroglycerin Sl Tabs [Nitrostat] 0.4 mg SUBLINGUAL Q5M PRN 11/26/17 11/14/20 DULoxetine HCL [Cymbalta] 60 mg PO DAILY 08/25/18 11/14/20 Isosorbide Mononitrate ER [Imdur] 60 mg PO DAILY 09/08/18 11/14/20 Carvedilol [Coreg] 25 mg PO BID 01/22/19 11/14/20 Vitamin B Complex 1 cap PO HS 06/23/19 11/14/20 ALPRAZolam [Xanax] 2 mg PO HS 08/11/19 11/14/20 Morphine Sulfate [Ms Contin] 15 mg PO Q12HR PRN 08/11/19 11/14/20 ARIPiprazole [Abilify] 2 mg PO DAILY 11/08/20 11/14/20 Clopidogrel [Plavix] 75 mg PO HS 11/08/20 11/14/20 Famotidine [Pepcid] 20 mg PO DAILY 11/08/20 11/14/20 Folic Acid 1 mg PO BID 11/08/20 11/14/20 HYDROcodone/APAP 5-325MG [[place] 1 tab PO BID PRN 11/08/20 11/14/20 5-325] INSULIN LISPRO (humaLOG) [humaLOG] 0 units SQ AC-TID PRN 11/08/20 11/14/20 INSULIN LISPRO (humaLOG) [humaLOG] 25 units SQ AC-LUNCH 11/08/20 11/14/20 INSULIN LISPRO (humaLOG) [humaLOG] 35 units SQ AC-BRKFST 11/08/20 11/14/20 Insulin Glargine,Hum.rec.anlog 36 unit SQ BID 11/08/20 11/14/20 [Lantus Solostar] Insulin Lispro [humaLOG] 25 units SQ AC-SUPPER 11/08/20 11/14/20 Previous Rx's Medication Instructions Recorded Citalopram Hydrobromide [CeleXA] 40 mg PO DAILY #1 tab 03/10/15 Pantoprazole [Protonix] 40 mg PO AC-BRKFST #30 tablet. 09/09/18 metFORMIN HCL [Glucophage] 1,000 mg PO BID #0 09/09/18 Allergies Allergy/AdvReac Type Severity Reaction Status Date / Time Fish Containing Products Allergy Unknown Verified 07/31/21 12:17 Iodinated Contrast Media Allergy throat Verified 07/31/21 12:17 [Iodinated Contrast Media - swelling IV Dye] Sulfa (Sulfonamide Allergy throat Verified 07/31/21 12:17 Antibiotics) swelling sulfamethoxazole Allergy throat Verified 07/31/21 12:17 [From Septra] swelling trimethoprim [From ] Allergy throat Verified 07/31/21 12:17 swelling NUTS Allergy Unknown Uncoded 07/31/21 12:17 Review of Systems ROS Statement: Those systems with pertinent positive or pertinent negative responses have been documented in the HPI. ROS Other: All systems not noted in ROS Statement are negative. Past Medical History Past Medical History: Cancer, Chest Pain / Angina, CVA/TIA, Diabetes Mellitus, Fibromyalgia, Hyperlipidemia, Hypertension, Myocardial Infarction ([place]), Musculoskeletal Disorder, Neurologic Disorder, Sleep Apnea/CPAP/BIPAP Additional Past Medical History / Comment(s): See Dr Pompa's H&P. 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 - slight foot drag when tired.diabetes mellitus insulin-dependent, MS, questionable hypercoagulable disease, ovarian cyst, MIX5 has cpap, syncope Last Myocardial Infarction Date:: unk History of Any Multi-Drug Resistant Organisms: None Reported Past Surgical History: Section, Cholecystectomy, Heart Catheterization With Stent, Hysterectomy, Tubal Ligation, Uterine Ablation Additional Past Surgical History / Comment(s): vein stripping right leg, radio frequency ablation of right back-02/22/2015, four stents on 04/03/16 and one on march 05, ovaries removed, colonscopy- polyp removal Past Anesthesia/Blood Transfusion Reactions: Motion Sickness Additional Past Anesthesia/Blood Transfusion Reaction / Comment(s): mild claustrophobia Date of Last Stent Placement:: 04/03/16 Past Psychological History: Anxiety, Depression Smoking Status: Current every day smoker Past Alcohol Use History: None Reported Past Drug Use History: None Reported - Past Family History Father Family Medical History: Congestive Heart Failure (CHF), Coronary Artery Disease (CAD), Diabetes Mellitus Mother Family Medical History: Cancer, Hypertension, Respiratory Disorder Additional Family Medical History / Comment(s): emphysema, colon CA General Exam - General Exam Comments Initial Comments: GENERAL: Patient is well-developed and well-nourished. Patient is nontoxic and well- hydrated and is in mild distress. ENT: Neck is soft and supple. No significant lymphadenopathy is noted. Oropharynx is clear. Moist mucous membranes. Neck has full range of motion without eliciting any pain. EYES: The sclera were anicteric and conjunctiva were pink and moist. Extraocular movements were intact and pupils were equal round and reactive to light. Eyelids were unremarkable. PULMONARY: Unlabored respirations. Good breath sounds bilaterally. No audible rales rhonchi or wheezing was noted. CARDIOVASCULAR: There is a regular rate and rhythm without any murmurs gallops or rubs ABDOMEN: Soft and nontender with normal bowel sounds. SKIN: Skin is clear with no lesions or rashes and otherwise unremarkable. NEUROLOGIC: Patient is alert and oriented x3. Cranial nerves II through XII are grossly intact. Motor and sensory are also intact. Normal speech, volume and content. Symmetrical smile. MUSCULOSKELETAL: Normal extremities with adequate strength and full range of motion. 1+ edema bilaterally LYMPHATICS: No significant lymphadenopathy is noted PSYCHIATRIC: Normal psychiatric evaluation. Limitations: no limitations Course Vital Signs 07/31/21 12:14 Temperature 98.2 F Pulse Rate 73 Respiratory 18 Rate Blood Pressure 181/87 O2 Sat by Pulse 98 Oximetry Medical Decision Making - Medical Decision Making EKG shows normal sinus rhythm at 79 bpm NC interval is 166 QRS is under 64 QT interval 440 QTC is 513. Patient's EKG shows no ST segment elevation or depression. Chest x-ray shows no acute abnormality. I started the patient up to the unstable angina. I spoke with Dr. Sanchez he agreed to admit the patient admitted the patient wrote admitting orders I consult cardiology. I kept the patient on heparin after Nitropaste on the floor. - Lab Data Result diagrams: 07/31/21 12:18 07/31/21 12:18 Lab Results 07/31/21 07/31/21 07/31/21 Range/Units 12:18 12:18 12:18 WBC 12.3 H (3.8-10.6) k/uL RBC 4.17 (3.80-5.40) m/uL Hgb 10.7 L (11.4-16.0) gm/dL Hct 33.9 L (34.0-46.0) % MCV 81.3 (80.0-100.0) fL MCH 25.6 (25.0-35.0) pg MCHC 31.5 (31.0-37.0) g/dL RDW 16.6 H (11.5-15.5) % Plt Count 291 (150-450) k/uL MPV 8.9 Neutrophils % 80 % Lymphocytes % 12 % Monocytes % 4 % Eosinophils % 2 % Basophils % 0 % Neutrophils # 9.8 H (1.3-7.7) k/uL Lymphocytes # 1.5 (1.0-4.8) k/uL Monocytes # 0.5 (0-1.0) k/uL Eosinophils # 0.3 (0-0.7) k/uL Basophils # 0.1 (0-0.2) k/uL Hypochromasia Slight Poikilocytosis Slight Anisocytosis Slight PT 11.1 (9.0-12.0) sec INR 1.0 (<1.2) APTT 27.5 (22.0-30.0) sec Sodium 135 L (137-145) mmol/L Potassium 4.4 (3.5-5.1) mmol/L Chloride 98 (98-107) mmol/L Carbon Dioxide 27 (22-30) mmol/L Anion Gap 10 mmol/L BUN 18 H (7-17) mg/dL Creatinine 0.93 (0.52-1.04) mg/dL Est GFR (CKD-EPI)AfAm 84 (>60 ml/min/1.73 sqM) Est GFR (CKD-EPI)NonAf 73 (>60 ml/min/1.73 sqM) Glucose 194 H (74-99) mg/dL Calcium 9.6 (8.4-10.2) mg/dL Total Bilirubin 0.3 (0.2-1.3) mg/dL AST 18 (14-36) U/L ALT 12 (4-34) U/L Alkaline Phosphatase 137 H (38-126) U/L Troponin I (0.000-0.034) ng/mL Total Protein 6.3 (6.3-8.2) g/dL Albumin 3.8 (3.5-5.0) g/dL 07/31/21 Range/Units 12:18 WBC (3.8-10.6) k/uL RBC (3.80-5.40) m/uL Hgb (11.4-16.0) gm/dL Hct (34.0-46.0) % MCV (80.0-100.0) fL MCH (25.0-35.0) pg MCHC (31.0-37.0) g/dL RDW (11.5-15.5) % Plt Count (150-450) k/uL MPV Neutrophils % % Lymphocytes % % Monocytes % % Eosinophils % % Basophils % % Neutrophils # (1.3-7.7) k/uL Lymphocytes # (1.0-4.8) k/uL Monocytes # (0-1.0) k/uL Eosinophils # (0-0.7) k/uL Basophils # (0-0.2) k/uL Hypochromasia Poikilocytosis Anisocytosis PT (9.0-12.0) sec INR (<1.2) APTT (22.0-30.0) sec Sodium (137-145) mmol/L Potassium (3.5-5.1) mmol/L Chloride (98-107) mmol/L Carbon Dioxide (22-30) mmol/L Anion Gap mmol/L BUN (7-17) mg/dL Creatinine (0.52-1.04) mg/dL Est GFR (CKD-EPI)AfAm (>60 ml/min/1.73 sqM) Est GFR (CKD-EPI)NonAf (>60 ml/min/1.73 sqM) Glucose (74-99) mg/dL Calcium (8.4-10.2) mg/dL Total Bilirubin (0.2-1.3) mg/dL AST (14-36) U/L ALT (4-34) U/L Alkaline Phosphatase (38-126) U/L Troponin I 0.014 (0.000-0.034) ng/mL Total Protein (6.3-8.2) g/dL Albumin (3.5-5.0) g/dL Critical Care Time Critical Care Time: Yes Total Critical Care Time: 35 Disposition Clinical Impression: Unstable angina pectoris Disposition: ADMITTED IP TO THIS HOSP Referrals: Dagmar Hennessy MD [Primary Care Provider] - 1-2 days Time of Disposition: 14:36
[2021-07-31] MEDS ORDERED: HEPARIN SODIUM 1,000 UN/ML (10ML VL) IV ONE (14:30)
--- NOTE | 2021-07-31 14:37 | XR ---
EXAMINATION TYPE: XR chest 2V DATE OF EXAM: 07/31/2021 COMPARISON: 06/23/2019 HISTORY: 50-year-old female chest pain TECHNIQUE: AP and lateral views FINDINGS: The heart is mildly enlarged. Mild interstitial prominence is chronic appearance. No consolidation or pleural effusion. IMPRESSION: Mild cardiomegaly. No definite acute process.
[2021-07-31] MEDS ORDERED: NITROGLYCERIN SL TABS 0.4 MG TAB SUBLINGUAL PRN ×2 (14:40→21:27)
[2021-07-31] MEDS: HEPARIN SOD,PORK IN 0.45% NACL 25,000 UNIT in 0.45% NACL 1 250ML.BAG IV SCH (14:50)
[2021-07-31] MEDS ORDERED: NITROGLYCERIN OINT 1 INCH/GM PACKET TOPICAL SCH (18:00)
[2021-07-31 20:30] LABS: Glucose,Whole Blood 155 mg/dL (75-99)
[2021-07-31] MEDS ORDERED: PROCHLORPERAZINE 10 MG TAB PO PRN (21:27)
[2021-07-31] MEDS ORDERED: NON FORMULARY DRUG (Ketorolac 10 MG Tab) PO PRN (21:27)
[2021-07-31] MEDS ORDERED: MORPHINE SULFATE ER 15 MG TABLET PO PRN (21:27)
[2021-07-31] MEDS ORDERED: ALBUTEROL NEBULIZED 2.5 MG/3 ML INHALATION PRN (21:27)
[2021-07-31] MEDS ORDERED: METHYLFOLATE 1000 MCG PO SCH (21:30)
[2021-07-31] MEDS ORDERED: INSULIN DETEMIR (LEVEMIR) 100 UNIT/ML SYR SQ SCH (21:30)
[2021-07-31] MEDS ORDERED: NON FORMULARY DRUG (Vitamin B Complex [Vitamin B Complex] 1 EACH Capsule) PO SCH (21:45)
[2021-07-31] MEDS ORDERED: HEPARIN SODIUM 1,000 UN/ML (10ML VL) IV PRN (22:08)
[2021-07-31] MEDS: carvediloL 12.5 MG TAB PO SCH (22:22)
[2021-07-31] MEDS: CHOLECALCIFEROL 25 MCG (1000 IU) TABLET PO SCH (22:23)
[2021-07-31] MEDS: metFORMIN 500 MG TAB PO SCH (22:23)
[2021-07-31] MEDS: lamoTRIgine 100 MG TAB PO SCH (22:23)
[2021-07-31] MEDS: PREGABALIN 75 MG CAP PO SCH (22:23)
[2021-07-31] MEDS: MAGNESIUM OXIDE 400 MG TAB PO SCH (22:23)
[2021-07-31] MEDS: lisinopriL 20 MG TAB PO SCH (22:23)
[2021-07-31] MEDS: HYDROcodone/APAP 7.5-325MG 1 EACH TAB PO PRN (22:30)
[2021-07-31] MEDS: ASPIRIN 81 MG PO SCH (22:34)
[2021-08-01 07:29] LABS: Glucose,Whole Blood 107 mg/dL (75-99)
[2021-08-01] MEDS: PANTOPRAZOLE 40 MG TABLET PO SCH (08:28)
[2021-08-01] MEDS: carvediloL 12.5 MG TAB PO SCH ×2 (08:29→21:31)
[2021-08-01] MEDS: metFORMIN 500 MG TAB PO SCH ×2 (08:29→21:31)
[2021-08-01] MEDS: CITALOPRAM HYDROBROMIDE 20 MG TAB PO SCH (08:29)
[2021-08-01] MEDS: ATORVASTATIN 40 MG TAB PO SCH (08:29)
[2021-08-01] MEDS: PREGABALIN 75 MG CAP PO SCH ×2 (08:29→21:32)
[2021-08-01] MEDS: lamoTRIgine 100 MG TAB PO SCH ×2 (08:29→21:31)
[2021-08-01] MEDS: ALPRAZolam 1 MG TAB PO SCH ×2 (08:29→21:31)
[2021-08-01] MEDS: FAMOTIDINE 20 MG TAB PO SCH (08:30)
[2021-08-01] MEDS: ISOSORBIDE MONONITRATE ER 60 MG TAB.ER.24H PO SCH (08:30)
[2021-08-01] MEDS: DULoxetine HCL 60 MG CAPSULE.DR PO SCH (08:30)
[2021-08-01] MEDS: ARIPiprazole 2 MG TAB PO SCH (08:30)
[2021-08-01] MEDS ORDERED: ASPIRIN 325 MG TAB PO SCH (09:00)
[2021-08-01] MEDS: HEPARIN SOD,PORK IN 0.45% NACL 25,000 UNIT in 0.45% NACL 1 250ML.BAG IV SCH (09:11)
[2021-08-01 10:00] LABS: Chol/HDL Ratio 4.35 Ratio; HDL Cholesterol 35.4 mg/dL (40.00-60.00)
[2021-08-01 12:12] LABS: Glucose,Whole Blood 134 mg/dL (75-99)
--- NOTE | 2021-08-01 12:25 | P.CRDCN ---
History of Present Illness History of present illness: HISTORY OF PRESENTING ILLNESS This is a pleasant 50-year-old female past medical history significant for coronary artery disease status post multivessel PCI, hypertension, dyslipid emia, diabetes mellitus and chronic nicotine dependence. She follows in the office with Dr. Jasso. We have been asked to see in consultation for chest pain. The patient was seen and examined resting comfortably laying flat in bed in no acute distress. She is sleeping and not compliantly waking up to discuss the reason for her hospitalization. Her is at the bedside. She does talk but keeps her eyes closed. Apparently for the previous few days she has been struggling with her blood pressure. It has been running high at home and she was advised by her PCP to take an additional dose of enalapril at home. She had been doing that for the previous couple of days and then yesterday she had an episode of discomfort in the midsternal region prompting her to come to the emergency department. At times she feels discomfort also in the right arm. The discomfort is intermittent and not related to activity or exertion. She denies any shortness of breath. The chest discomfort is not related to deep inspiration. She denies nausea, vomiting, palpitations or diaphoresis. On exam the pain is reproducible in the midsternal region. The patient recently underwent a stress test in the office 07/24/2021 that was normal with no evidence of reversible cardiac ischemia. Most recent echocardiogram obtained 2017 revealed preserved LV systolic function with ejection fraction 60-65%. M ost recent cardiac catheterization performed in 2018 revealed a patent stent in the LAD, diagonal branch and RCA with mild nonobstructive disease noted in the RCA and LAD. DIAGNOSTICS EKG reveals sinus mechanism heart rate of 79, right bundle branch block and LVH. Chest xray negative for an acute cardiopulmonary process. Laboratory reviewed, WBC 12.3, hemoglobin 10.7, platelets 291, sodium 135, potassium 4.4, creatinine 0.93, cardiac enzymes negative 3, triglycerides 404 therefore unable to calculate LDL. Current cardiac medications include Plavix 75 mg daily, Coreg 25 mg twice a day, enalapril 10 mg twice a day, Imdur 60 mg daily, aspirin 81 mg daily and atorvastatin 40 mg daily.. REVIEW OF SYSTEMS At the time of my exam: CONSTITUTIONAL: Denies fever or chills. CARDIOVASCULAR: Complains of reproducible chest pain in the mid-sternal region. Denies exertional chest pain, shortness of breath, orthopnea, PND or palpitations. RESPIRATORY: Denies cough. GASTROINTESTINAL: Denies abdominal pain, diarrhea, constipation, nausea or vomiting. MUSCULOSKELETAL: Denies myalgias. NEUROLOGIC: Denies numbness, tingling, headache or weakness. ENDOCRINE: Denies fatigue, weight change, polydipsia or polyurina. GENITOURINARY: Denies burning, hematuria or urgency with micturation. HEMATOLOGIC: Denies history of anemia or bleeding. PHYSICAL EXAMINATION Blood pressure 158/79 heart rate 75 afebrile and maintaining oxygen saturation on room air. CONSTITUTIONAL: No apparent distress. HEENT: Head is normocephalic. Pupils are equal, round. Sclerae anicteric. Mucous membranes of the mouth are moist. No JVD. No carotid bruit. CHEST EXAMINATION: Lungs are clear to auscultation. No chest wall tenderness is noted on palpation or with deep breathing. HEART EXAMINATION: Regular rate and rhythm. S1, S2 heard. No murmurs, gallops or rub. ABDOMEN: Soft, nontender. EXTREMITIES: 2+ peripheral pulses, no lower extremity edema and no calf tenderness. NEUROLOGIC EXAMINATION: Patient is awake, alert and oriented x3. ASSESSMENT Chest pain, atypical and reproducible Hypertension, uncontrolled Leukocytosis Coronary artery disease Hypertension Dyslipidemia Chronic nicotine dependence PLAN An acute coronary event has been ruled out. Pain is reproducible with palpation, unlikely to be related from cardiac ischemia. Recent stress testing in the office reviewed. No evidence of reversibility. Obtain 2-D echocardiogram and Doppler study to assess cardiac structure and function. Discontinue heparin infusion. Add hydrochlorothiazide 25 mg daily to her regimen for optimal blood pressure control. Smoking cessation recommended. Thank you kindly for this consultation. Nurse Practitioner note has been reviewed, I agree with a documented findings and plan of care. Patient was seen and examined. Past Medical History Past Medical History: Cancer, Chest Pain / Angina, CVA/TIA, Diabetes Mellitus, Fibromyalgia, Hyperlipidemia, Hypertension, Myocardial Infarction ([place]), Musculoskeletal Disorder, Neurologic Disorder, Sleep Apnea/CPAP/BIPAP Additional Past Medical History / Comment(s): See Dr Pompa's H&P. 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 - slight foot drag when tired.diabetes mellitus insulin-dependent, MS, questionable hypercoagulable disease, ovarian cyst, MIX5 has cpap, syncope Last Myocardial Infarction Date:: unk History of Any Multi-Drug Resistant Organisms: None Reported Past Surgical History: Section, Cholecystectomy, Heart Catheterization With Stent, Hysterectomy, Tubal Ligation, Uterine Ablation Additional Past Surgical History / Comment(s): vein stripping right leg, radio frequency ablation of right back-02/22/2015, four stents on 04/03/16 and one on march 05, ovaries removed, colonscopy- polyp removal Past Anesthesia/Blood Transfusion Reactions: Motion Sickness Additional Past Anesthesia/Blood Transfusion Reaction / Comment(s): mild claustrophobia Date of Last Stent Placement:: 04/03/16 Past Psychological History: Anxiety, Depression Additional Psychological History / Comment(s): at time of ths charting pt denies any thoughts of wanting to harm self. pt lives with her spouse. pets: 1 dog. lives in a single story home that has 3 front steps , 2 back steps. pt has a cane.walker, w/c uses as needed. denies any recent falls. Smoking Status: Current every day smoker Past Alcohol Use History: None Reported Additional Past Alcohol Use History / Comment(s): Patient is a smoker of a half a pack of cigarettes per day for 25 years. Past Drug Use History: None Reported - Past Family History Father Family Medical History: Congestive Heart Failure (CHF), Coronary Artery Disease (CAD), Diabetes Mellitus Mother Family Medical History: Cancer, Hypertension, Respiratory Disorder Additional Family Medical History / Comment(s): emphysema, colon CA Medications and Allergies Home Medications Medication Instructions Recorded Confirmed Type Citalopram Hydrobromide [CeleXA] 40 mg PO DAILY #1 tab 03/10/15 07/31/21 Rx Pregabalin [Lyrica] 150 mg PO BID 06/25/15 07/31/21 History lamoTRIgine 200 mg PO BID 07/30/16 07/31/21 History Magnesium Gluconate [Magonate] 500 mg PO HS 03/27/17 07/31/21 History Aspirin [Adult Low Dose Aspirin EC] 81 mg PO HS 11/26/17 07/31/21 History Enalapril [Vasotec] 10 mg PO BID 11/26/17 07/31/21 History Nitroglycerin Sl Tabs [Nitrostat] 0.4 mg SUBLINGUAL Q5M PRN 11/26/17 07/31/21 History DULoxetine HCL [Cymbalta] 60 mg PO DAILY 08/25/18 07/31/21 History Isosorbide Mononitrate ER [Imdur] 60 mg PO DAILY 09/08/18 07/31/21 History Carvedilol [Coreg] 25 mg PO BID 01/22/19 07/31/21 History Vitamin B Complex 1 cap PO HS 06/23/19 07/31/21 History Morphine Sulfate [Ms Contin] 15 mg PO DAILY PRN 08/11/19 07/31/21 History ARIPiprazole [Abilify] 2 mg PO DAILY 11/08/20 07/31/21 History Clopidogrel [Plavix] 75 mg PO HS 11/08/20 07/31/21 History Insulin Glargine,Hum.rec.anlog 40 unit SQ DIRECTED 11/08/20 07/31/21 History [Lantus Solostar] ALPRAZolam [Xanax] 1 mg PO BID@0900,2100 07/31/21 07/31/21 History Albuterol Nebulized [Ventolin 2.5 mg INHALATION RT-QID PRN 07/31/21 07/31/21 History Nebulized] Atorvastatin [Lipitor] 40 mg PO DAILY 07/31/21 07/31/21 History Cholecalciferol (Vitamin D3) 125 mcg PO HS 07/31/21 07/31/21 History [Vitamin D3 (125 MCG = 5,000 IU)] Famotidine [Pepcid] 40 mg PO DAILY 07/31/21 07/31/21 History HYDROcodone/APAP 7.5-325MG [[place] 1 tab PO Q12HR PRN 07/31/21 07/31/21 History 7.5-325] Ketorolac [Toradol] 10 mg PO Q8H PRN 07/31/21 07/31/21 History Methylfolate 1,000mcg 1 tab PO BID 07/31/21 07/31/21 History Pantoprazole [Protonix] 40 mg PO DAILY 07/31/21 07/31/21 History Prochlorperazine [Compazine] 10 mg PO TID PRN 07/31/21 07/31/21 History metFORMIN HCL [Glucophage] 1,000 mg PO HS 07/31/21 07/31/21 History metFORMIN HCL [Glucophage] 500 mg PO DAILY 07/31/21 07/31/21 History Allergies Allergy/AdvReac Type Severity Reaction Status Date / Time Fish Containing Products Allergy Unknown Verified 07/31/21 19:43 Iodinated Contrast Media Allergy throat Verified 07/31/21 19:43 [Iodinated Contrast Media - swelling IV Dye] Sulfa (Sulfonamide Allergy throat Verified 07/31/21 19:43 Antibiotics) swelling sulfamethoxazole Allergy throat Verified 07/31/21 19:43 [From ] swelling tree nut [Nut] Allergy Unknown Verified 07/31/21 19:43 trimethoprim [From ] Allergy throat Verified 07/31/21 19:43 swelling Physical Exam Vitals: Vital Signs Temp Pulse Pulse Resp BP BP Pulse Ox 08/01/21 07:00 98.2 F 75 16 158/79 93 L 08/01/21 01:57 98.3 F 73 18 167/86 92 L 08/01/21 00:46 18 07/31/21 20:00 18 07/31/21 19:40 98.3 F 74 20 132/71 92 L 07/31/21 17:01 75 18 07/31/21 16:20 97.7 F 75 18 166/93 98 07/31/21 14:49 75 18 143/69 98 07/31/21 12:14 98.2 F 73 18 181/87 98 Intake and Output 07/31/21 08/01/21 08/01/21 22:59 06:59 14:59 Intake Total 72.5 81.677 59.981 Balance 72.5 81.677 59.981 Intake: Intake, IV Titration 72.5 81.677 59.981 Amount Heparin Sod,Pork in 0.45% 72.5 81.677 59.981 NaCl 25,000 unit In 0.45 % NaCl 1 250ml.bag @ 10. 86 UNITS/KG/HR 10 mls/hr IV .Q24H [facility] Rx#: [id number] Other: Voiding Method Toilet Toilet # Voids 2 2 Weight 92.079 kg Results 07/31/21 12:18 07/31/21 12:18 Cardiac Enzymes 07/31/21 07/31/21 07/31/21 Range/Units 12:18 12:18 15:51 AST 18 (14-36) U/L Troponin I 0.014 0.013 (0.000-0.034) ng/mL 07/31/21 Range/Units 21:13 AST (14-36) U/L Troponin I <0.012 (0.000-0.034) ng/mL Coagulation 07/31/21 07/31/21 08/01/21 Range/Units 12:18 21:13 03:42 PT 11.1 (9.0-12.0) sec APTT 27.5 33.7 H 45.1 H (22.0-30.0) sec Lipids 08/01/21 Range/Units 03:42 Triglycerides 404.00 H (0.00-149.00) mg/dL Cholesterol 154.00 (0.00-200.00) mg/dL HDL Cholesterol 35.40 L (40.00-60.00) mg/dL Cholesterol/HDL Ratio 4.35 Ratio CBC 07/31/21 Range/Units 12:18 WBC 12.3 H (3.8-10.6) k/uL RBC 4.17 (3.80-5.40) m/uL Hgb 10.7 L (11.4-16.0) gm/dL Hct 33.9 L (34.0-46.0) % Plt Count 291 (150-450) k/uL Comprehensive Metabolic Panel 07/31/21 Range/Units 12:18 Sodium 135 L (137-145) mmol/L Potassium 4.4 (3.5-5.1) mmol/L Chloride 98 (98-107) mmol/L Carbon Dioxide 27 (22-30) mmol/L BUN 18 H (7-17) mg/dL Creatinine 0.93 (0.52-1.04) mg/dL Glucose 194 H (74-99) mg/dL Calcium 9.6 (8.4-10.2) mg/dL AST 18 (14-36) U/L ALT 12 (4-34) U/L Alkaline Phosphatase 137 H (38-126) U/L Total Protein 6.3 (6.3-8.2) g/dL Albumin 3.8 (3.5-5.0) g/dL Current Medications Generic Name Dose Route Start Last Admin Trade Name Freq PRN Reason Stop Dose Admin Hydrocodone Bitart/Acetaminophen 1 each 07/31/21 21:27 07/31/21 22:30 Hydrocodone/Apap 7.5-325mg 1 Each Tab PO 1 each Q12HR PRN Administration Pain Albuterol Sulfate 2.5 mg 07/31/21 21:27 Albuterol Nebulized 2.5 Mg/3 Ml INHALATION RT-QID PRN Shortness Of Breath Alprazolam 1 mg 08/01/21 09:00 08/01/21 08:29 Alprazolam 1 Mg Tab PO 1 mg BID@0900,2100 SARAHY Administration Aripiprazole 2 mg 08/01/21 09:00 08/01/21 08:30 Aripiprazole 2 Mg Tab PO 2 mg DAILY SARAHY Administration Aspirin 325 mg 08/01/21 09:00 08/01/21 08:30 Aspirin 325 Mg Tab PO 325 mg DAILY SARAHY Administration Aspirin 81 mg 07/31/21 21:30 07/31/21 22:34 Aspirin 81 Mg PO Not Given HS SARAHY Atorvastatin Calcium 40 mg 08/01/21 09:00 08/01/21 08:29 Atorvastatin 40 Mg Tab PO 40 mg DAILY SARAHY Administration Carvedilol 25 mg 07/31/21 21:30 08/01/21 08:29 Carvedilol 12.5 Mg Tab PO 25 mg BID SARAHY Administration Cholecalciferol 125 mcg 07/31/21 21:30 07/31/21 22:23 Cholecalciferol 25 Mcg (1000 Iu) Tablet PO 125 mcg HS SARAHY Administration Citalopram Hydrobromide 40 mg 08/01/21 09:00 08/01/21 08:29 Citalopram Hydrobromide 20 Mg Tab PO 40 mg DAILY SARAHY Administration Duloxetine HCl 60 mg 08/01/21 09:00 08/01/21 08:30 Duloxetine Hcl 60 Mg Capsule.Dr PO 60 mg DAILY SARAHY Administration Famotidine 40 mg 08/01/21 09:00 08/01/21 08:30 Famotidine 20 Mg Tab PO 40 mg DAILY SARAHY Administration Heparin Sodium (Porcine) 0 unit 07/31/21 22:08 07/31/21 22:24 Heparin Sodium 1,000 Un/Ml (10ml Vl) IV 4,000 unit PER PROTOCOL PRN Administration Low PTT Protocol Heparin Sodium/Sodium Chloride 250 mls @ 10 mls/hr 07/31/21 14:30 08/01/21 09:11 25,000 unit/ Sodium Chloride IV 13.86 units/kg/hr .Q24H SARAHY 12.762 mls/hr Administration Protocol 10.86 UNITS/KG/HR Isosorbide Mononitrate 60 mg 08/01/21 09:00 08/01/21 08:30 Isosorbide Mononitrate Er 60 Mg Tab.Er.24h PO 60 mg DAILY SARAHY Administration Lamotrigine 200 mg 07/31/21 21:30 08/01/21 08:29 Lamotrigine 100 Mg Tab PO 200 mg BID SARAHY Administration Lisinopril 40 mg 07/31/21 21:30 07/31/21 22:23 Lisinopril 20 Mg Tab PO 40 mg HS SARAHY Administration Magnesium Oxide 400 mg 07/31/21 21:30 07/31/21 22:23 Magnesium Oxide 400 Mg Tab PO 400 mg HS SARAHY Administration Metformin HCl 500 mg 08/01/21 09:00 08/01/21 08:29 Metformin 500 Mg Tab PO 500 mg DAILY SARAHY Administration Metformin HCl 1,000 mg 07/31/21 21:30 07/31/21 22:23 Metformin 500 Mg Tab PO 1,000 mg HS SARAHY Administration Morphine Sulfate 15 mg 07/31/21 21:27 Morphine Sulfate Er 15 Mg Tablet PO DAILY PRN Severe Pain Protocol Nitroglycerin 0.4 mg 07/31/21 14:40 Nitroglycerin Sl Tabs 0.4 Mg Tab SUBLINGUAL Q5M PRN Chest Pain Pantoprazole Sodium 40 mg 08/01/21 07:30 08/01/21 08:28 Pantoprazole 40 Mg Tablet PO 40 mg [id number] SARAHY Administration Pregabalin 150 mg 07/31/21 21:45 08/01/21 08:29 Pregabalin 75 Mg Cap PO 150 mg BID SARAHY Administration Prochlorperazine Maleate 10 mg 07/31/21 21:27 Prochlorperazine 10 Mg Tab PO TID PRN Nausea And Vomiting Intake and Output 07/31/21 08/01/21 08/01/21 22:59 06:59 14:59 Intake Total 72.5 81.677 59.981 Balance 72.5 81.677 59.981 Intake: Intake, IV Titration 72.5 81.677 59.981 Amount Heparin Sod,Pork in 0.45% 72.5 81.677 59.981 NaCl 25,000 unit In 0.45 % NaCl 1 250ml.bag @ 10. 86 UNITS/KG/HR 10 mls/hr IV .Q24H [facility] Rx#: [id number] Other: Voiding Method Toilet Toilet # Voids 2 2 Weight 92.079 kg 07/31/21 12:18 07/31/21 12:18
[2021-08-01] MEDS: hydroCHLOROthiazide 25 MG TAB PO SCH (13:13)
[2021-08-01 15:39] LABS: Anisocytosis Slight; Basophils % (A) 0 %; Eosinophils # (A) 0.2 k/uL (0-0.7); Eosinophils % (A) 2 %; HGB 10.3 gm/dL (11.4-16.0); Hypochromasia Marked; Lymphocytes # (A) 2.5 k/uL (1.0-4.8); Lymphocytes % (A) 27 %; MCH 25.8 pg (25.0-35.0); MCHC 30.2 g/dL (31.0-37.0); MCV 85.5 fL (80.0-100.0); Mean Platelet Volume 10.8; Monocytes # (A) 0.6 k/uL (0-1.0); Monocytes % (A) 6 %; Neutrophils # (A) 5.7 k/uL (1.3-7.7); Neutrophils % (A) 62 %; Platelet Count 236 k/uL (150-450); RBC 3.98 m/uL (3.80-5.40); RDW 16.7 % (11.5-15.5); WBC 9.3 k/uL (3.8-10.6)
[2021-08-01 16:08] LABS: ALT 11 U/L (4-34); AST 34 U/L (14-36); African American GFR (CKD) 73 (>60 ml/min/1.73 sqM); Albumin 3.2 g/dL (3.5-5.0); Albumin/Globulin Ratio 1.4; Alkaline Phosphatase 119 U/L (38-126); Amylase 44 U/L (30-110); Anion Gap 11 mmol/L; Blood Urea Nitrogen 20 mg/dL (7-17); Calcium 9.2 mg/dL (8.4-10.2); Carbon Dioxide 22 mmol/L (22-30); Chloride 105 mmol/L (98-107); Globulin 2.3 g/dL; Glucose 108 mg/dL (74-99); Lipase 68 U/L (23-300); Non-African American GFR(CKD) 64 (>60 ml/min/1.73 sqM); Potassium 3.9 mmol/L (3.5-5.1); Sodium 138 mmol/L (137-145); Total Bilirubin 0.2 mg/dL (0.2-1.3); Total Protein 5.5 g/dL (6.3-8.2)
--- NOTE | 2021-08-01 17:15 | P.HPIM ---
History of Present Illness H&P Date: 08/01/21 Chief Complaint: Chest pain Leticia Langley, is a 50-year-old female who presented to [facility] emergency room with a chief complaint of chest pain. Patient stated that she started having episodes of chest pain on and off 3 days prior to presentation. Pain usually lasts about 1 hour she describes a pressure sensation in the middle of the chest radiating towards the right arm, she denies any shortness of breath or palpitation, no nausea or vomiting ,she occasionally has diaphoresis with chest pain. Patient has a known history of hypertension, hyperlipidemia, and a previous history of coronary artery disease with history of angioplasty and stent placement in the past. She was evaluated in the emergency room vital examination on presentation reve aled a temperature of 98.2 pulse 73 respiration 18 blood pressure 181/87 pulse ox 98% on room air Laboratory data revealed a white blood count of 12.3 hemoglobin 10.7 platelet count 291 sodium 135 potassium 4.4 chloride 98 CO2 27 BUN 18 creatinine 0.93 troponin level was 0.014 coronavirus PCR was negative. Testing in the emergency room revealed EKG done in the emergency room revealed normal sinus rhythm with left ventricular hypertrophy and QRS widening chest x- ray revealed mild cardiomegaly otherwise no acute abnormality. Patient was admitted to medical floor for further evaluation and treatment Past Medical History Past Medical History: Cancer, Chest Pain / Angina, CVA/TIA, Diabetes Mellitus, Fibromyalgia, Hyperlipidemia, Hypertension, Myocardial Infarction ([place]), Musculoskeletal Disorder, Neurologic Disorder, Sleep Apnea/CPAP/BIPAP Additional Past Medical History / Comment(s): See Dr Pompa's H&P. 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 - slight foot drag when tired.diabetes mellitus insulin-dependent, MS, questionable hypercoagulable disease, ovarian cyst, MIX5 has cpap, syncope Last Myocardial Infarction Date:: unk History of Any Multi-Drug Resistant Organisms: None Reported Past Surgical History: Section, Cholecystectomy, Heart Catheterization With Stent, Hysterectomy, Tubal Ligation, Uterine Ablation Additional Past Surgical History / Comment(s): vein stripping right leg, radio frequency ablation of right back-02/22/2015, four stents on 04/03/16 and one on march 05, ovaries removed, colonscopy- polyp removal Past Anesthesia/Blood Transfusion Reactions: Motion Sickness Additional Past Anesthesia/Blood Transfusion Reaction / Comment(s): mild claustrophobia Date of Last Stent Placement:: 04/03/16 Past Psychological History: Anxiety, Depression Additional Psychological History / Comment(s): at time of ths charting pt denies any thoughts of wanting to harm self. pt lives with her spouse. pets: 1 dog. lives in a single story home that has 3 front steps , 2 back steps. pt has a cane.walker, w/c uses as needed. denies any recent falls. Smoking Status: Current every day smoker Past Alcohol Use History: None Reported Additional Past Alcohol Use History / Comment(s): Patient is a smoker of a half a pack of cigarettes per day for 25 years. Past Drug Use History: None Reported - Past Family History Father Family Medical History: Congestive Heart Failure (CHF), Coronary Artery Disease (CAD), Diabetes Mellitus Mother Family Medical History: Cancer, Hypertension, Respiratory Disorder Additional Family Medical History / Comment(s): emphysema, colon CA Medications and Allergies Home Medications Medication Instructions Recorded Confirmed Type Citalopram Hydrobromide [CeleXA] 40 mg PO DAILY #1 tab 03/10/15 07/31/21 Rx Pregabalin [Lyrica] 150 mg PO BID 06/25/15 07/31/21 History lamoTRIgine 200 mg PO BID 07/30/16 07/31/21 History Magnesium Gluconate [Magonate] 500 mg PO HS 03/27/17 07/31/21 History Aspirin [Adult Low Dose Aspirin EC] 81 mg PO HS 11/26/17 07/31/21 History Enalapril [Vasotec] 10 mg PO BID 11/26/17 07/31/21 History Nitroglycerin Sl Tabs [Nitrostat] 0.4 mg SUBLINGUAL Q5M PRN 11/26/17 07/31/21 History DULoxetine HCL [Cymbalta] 60 mg PO DAILY 08/25/18 07/31/21 History Isosorbide Mononitrate ER [Imdur] 60 mg PO DAILY 09/08/18 07/31/21 History Carvedilol [Coreg] 25 mg PO BID 01/22/19 07/31/21 History Vitamin B Complex 1 cap PO HS 06/23/19 07/31/21 History Morphine Sulfate [Ms Contin] 15 mg PO DAILY PRN 08/11/19 07/31/21 History ARIPiprazole [Abilify] 2 mg PO DAILY 11/08/20 07/31/21 History Clopidogrel [Plavix] 75 mg PO HS 11/08/20 07/31/21 History Insulin Glargine,Hum.rec.anlog 40 unit SQ DIRECTED 11/08/20 07/31/21 History [Lantus Solostar] ALPRAZolam [Xanax] 1 mg PO BID@0900,2100 07/31/21 07/31/21 History Albuterol Nebulized [Ventolin 2.5 mg INHALATION RT-QID PRN 07/31/21 07/31/21 History Nebulized] Atorvastatin [Lipitor] 40 mg PO DAILY 07/31/21 07/31/21 History Cholecalciferol (Vitamin D3) 125 mcg PO HS 07/31/21 07/31/21 History [Vitamin D3 (125 MCG = 5,000 IU)] Famotidine [Pepcid] 40 mg PO DAILY 07/31/21 07/31/21 History HYDROcodone/APAP 7.5-325MG [[place] 1 tab PO Q12HR PRN 07/31/21 07/31/21 History 7.5-325] Ketorolac [Toradol] 10 mg PO Q8H PRN 07/31/21 07/31/21 History Methylfolate 1,000mcg 1 tab PO BID 07/31/21 07/31/21 History Pantoprazole [Protonix] 40 mg PO DAILY 07/31/21 07/31/21 History Prochlorperazine [Compazine] 10 mg PO TID PRN 07/31/21 07/31/21 History metFORMIN HCL [Glucophage] 1,000 mg PO HS 07/31/21 07/31/21 History metFORMIN HCL [Glucophage] 500 mg PO DAILY 07/31/21 07/31/21 History Allergies Allergy/AdvReac Type Severity Reaction Status Date / Time Fish Containing Products Allergy Unknown Verified 07/31/21 19:43 Iodinated Contrast Media Allergy throat Verified 07/31/21 19:43 [Iodinated Contrast Media - swelling IV Dye] Sulfa (Sulfonamide Allergy throat Verified 07/31/21 19:43 Antibiotics) swelling sulfamethoxazole Allergy throat Verified 07/31/21 19:43 [From ] swelling tree nut [Nut] Allergy Unknown Verified 07/31/21 19:43 trimethoprim [From Junra] Allergy throat Verified 07/31/21 19:43 swelling Physical Exam Vitals: Vital Signs Temp Pulse Pulse Resp BP BP Pulse Ox 08/01/21 01:57 98.3 F 73 18 167/86 92 L 08/01/21 00:46 18 07/31/21 20:00 18 07/31/21 19:40 98.3 F 74 20 132/71 92 L 07/31/21 17:01 75 18 07/31/21 16:20 97.7 F 75 18 166/93 98 07/31/21 14:49 75 18 143/69 98 07/31/21 12:14 98.2 F 73 18 181/87 98 Intake and Output 07/31/21 08/01/21 08/01/21 22:59 06:59 14:59 Intake Total 72.5 81.677 Balance 72.5 81.677 Intake: Intake, IV Titration 72.5 81.677 Amount Heparin Sod,Pork in 0.45% 72.5 81.677 NaCl 25,000 unit In 0.45 % NaCl 1 250ml.bag @ 10. 86 UNITS/KG/HR 10 mls/hr IV .Q24H [facility] Rx#: [id number] Other: Voiding Method Toilet Toilet # Voids 2 2 Weight 92.079 kg In general patient is alert and oriented x 3 in no distress HEENT head normocephalic and atraumatic Neck is supple no JVD no goiter no lymphadenopathy no carotid bruit Chest examination is clear to auscultation no crackles no wheezing Cardiac exam reveals regular heart sounds S1 and S2 no gallops no murmurs Abdomen is soft nontender no organomegaly with normal bowel sounds Extremity exam reveals no edema no cyanosis or clubbing Neurological examination reveals no gross focal deficits Results CBC & Chem 7: 07/31/21 12:18 07/31/21 12:18 Labs: Abnormal Lab Results - Last 24 Hours (Table) 07/31/21 07/31/21 07/31/21 Range/Units 12:18 12:18 20:29 WBC 12.3 H (3.8-10.6) k/uL Hgb 10.7 L (11.4-16.0) gm/dL Hct 33.9 L (34.0-46.0) % RDW 16.6 H (11.5-15.5) % Neutrophils # 9.8 H (1.3-7.7) k/uL APTT (22.0-30.0) sec Sodium 135 L (137-145) mmol/L BUN 18 H (7-17) mg/dL Glucose 194 H (74-99) mg/dL POC Glucose (mg/dL) 155 H (75-99) mg/dL Alkaline Phosphatase 137 H (38-126) U/L 07/31/21 08/01/21 Range/Units 21:13 03:42 WBC (3.8-10.6) k/uL Hgb (11.4-16.0) gm/dL Hct (34.0-46.0) % RDW (11.5-15.5) % Neutrophils # (1.3-7.7) k/uL APTT 33.7 H 45.1 H (22.0-30.0) sec Sodium (137-145) mmol/L BUN (7-17) mg/dL Glucose (74-99) mg/dL POC Glucose (mg/dL) (75-99) mg/dL Alkaline Phosphatase (38-126) U/L Thrombosis Risk Factor Assmnt - Choose All That Apply Any of the Below Risk Factors Present?: Yes Each Factor Represents 1 point: Age 41-60 years, Obesity (BMI >25) Other Risk Factors: No Other congenital or acquired thrombophilia - If yes, enter type in comment: No Thrombosis Risk Factor Assessment Total Risk Factor Score: 2 Thrombosis Risk Factor Assessment Level: Low Risk Assessment and Plan Plan: Recurrent episodes of chest pain Underlying history of coronary artery disease with previous history of angioplasty and stent placement Evidence of cardiomegaly on chest x-ray and EKG, will check echocardiogram Underlying history of hypertension Underlying history of hyperlipidemia At this time patient is admitted to telemetry floor she was started on IV heparin Echocardiogram ordered Cardiology consult requested Home medications reviewed and reordered Will follow closely
[2021-08-01 20:22] LABS: Glucose,Whole Blood 160 mg/dL (75-99)
[2021-08-01] MEDS: CHOLECALCIFEROL 25 MCG (1000 IU) TABLET PO SCH (21:31)
[2021-08-01] MEDS: ASPIRIN 81 MG PO SCH (21:31)
[2021-08-01] MEDS: MAGNESIUM OXIDE 400 MG TAB PO SCH (21:32)
[2021-08-01] MEDS: lisinopriL 20 MG TAB PO SCH (21:32)
[2021-08-01] MEDS: HYDROcodone/APAP 7.5-325MG 1 EACH TAB PO PRN (21:36)
[2021-08-02 07:43] LABS: ALT 12 U/L (4-34); AST 20 U/L (14-36); African American GFR (CKD) 60 (>60 ml/min/1.73 sqM); Albumin 3.4 g/dL (3.5-5.0); Albumin/Globulin Ratio 1.4; Alkaline Phosphatase 106 U/L (38-126); Anion Gap 9 mmol/L; Blood Urea Nitrogen 19 mg/dL (7-17); Calcium 9.8 mg/dL (8.4-10.2); Carbon Dioxide 28 mmol/L (22-30); Chloride 102 mmol/L (98-107); Globulin 2.4 g/dL; Glucose 112 mg/dL (74-99); Non-African American GFR(CKD) 52 (>60 ml/min/1.73 sqM); Sodium 139 mmol/L (137-145); Total Bilirubin 0.3 mg/dL (0.2-1.3); Total Protein 5.8 g/dL (6.3-8.2)
[2021-08-02 07:45] LABS: Glucose,Whole Blood 141 mg/dL (75-99)
[2021-08-02] MEDS: carvediloL 12.5 MG TAB PO SCH ×2 (08:07→20:12)
[2021-08-02] MEDS: ISOSORBIDE MONONITRATE ER 60 MG TAB.ER.24H PO SCH (08:07)
[2021-08-02] MEDS: ARIPiprazole 2 MG TAB PO SCH (08:07)
[2021-08-02] MEDS: FAMOTIDINE 20 MG TAB PO SCH (08:07)
[2021-08-02] MEDS: lamoTRIgine 100 MG TAB PO SCH ×2 (08:07→20:13)
[2021-08-02] MEDS: DULoxetine HCL 60 MG CAPSULE.DR PO SCH (08:07)
[2021-08-02] MEDS: PREGABALIN 75 MG CAP PO SCH ×2 (08:07→20:12)
[2021-08-02] MEDS: hydroCHLOROthiazide 25 MG TAB PO SCH (08:07)
[2021-08-02] MEDS: CITALOPRAM HYDROBROMIDE 20 MG TAB PO SCH (08:07)
[2021-08-02] MEDS: ALPRAZolam 1 MG TAB PO SCH ×2 (08:07→20:13)
[2021-08-02] MEDS: ATORVASTATIN 40 MG TAB PO SCH (08:07)
[2021-08-02] MEDS: metFORMIN 500 MG TAB PO SCH ×2 (08:07→20:13)
[2021-08-02 09:05] LABS: Basophils # (A) 0.06 X 10*3/uL (0.00-0.10); Basophils % (A) 0.6 %; Eosinophils # (A) 0.19 X 10*3/uL (0.04-0.35); Eosinophils % (A) 1.8 %; HCT 33.5 % (37.2-46.3); Lymphocytes # (A) 2.31 X 10*3/uL (0.90-5.00); Lymphocytes % (A) 22.1 %; MCH 23.8 pg (27.0-32.0); MCHC 29.9 g/dL (32.0-37.0); MCV 79.8 fL (80.0-97.0); Mean Platelet Volume 11.2 fL (9.5-12.2); Monocytes # (A) 0.73 X 10*3/uL (0.20-1.00); Neutrophils # (A) 7.13 X 10*3/uL (1.80-7.70); Neutrophils % (A) 68.1 %; Platelet Count 270 X 10*3/uL (140-440); RDW 16.7 % (11.5-14.5); WBC 10.46 X 10*3/uL (4.50-10.00)
--- NOTE | 2021-08-02 09:07 | US ---
EXAMINATION TYPE: US abdomen complete DATE OF EXAM: 08/02/2021 COMPARISON: NONE CLINICAL HISTORY: Epigastric pain. GB removed. EXAM MEASUREMENTS: Liver Length: 19.6 cm CBD: 1.1 cm. Spleen: 13.9 cm Right Kidney: 13.0 x 6.8 x 5.5 cm Left Kidney: 13.6 x 5.0 x 5.5 cm Pancreas: Tail obscured by overlying bowel gas Liver: Enlarged in size Gallbladder: Surgically absent Evidence for sonographic Briones's sign: neg CBD: Slightly dilated . Normal is 1.0 cm or less in a postcholecystectomy patient Spleen: Possible echogenic foci seen, could be prominent vascular up, enlarged in size Right Kidney: No hydronephrosis or masses seen Left Kidney: Echogenic foci seen Upper IVC: wnl Abd Aorta: Distal obscured by overlying bowel gas, no AAA in portions seen IMPRESSION: 1. Hepatosplenomegaly. 2. Nonobstructing left renal stones. 3. Common bile duct is slightly prominent for a postcholecystectomy patient.
[2021-08-02] MEDS: PANTOPRAZOLE 40 MG TABLET PO SCH ×2 (09:51→18:15)
--- NOTE | 2021-08-02 09:59 | P.PN ---
Subjective Progress Note Date: 08/02/21 Leticia Langley, is a 50-year-old female who presented to [facility] emergency room with a chief complaint of chest pain. Patient stated that she started having episodes of chest pain on and off 3 days prior to presentation. Pain usually lasts about 1 hour she describes a pressure sens ation in the middle of the chest radiating towards the right arm, she denies any shortness of breath or palpitation, no nausea or vomiting ,she occasionally has diaphoresis with chest pain. Patient has a known history of hypertension, hyperlipidemia, and a previous history of coronary artery disease with history of angioplasty and stent placement in the past. She was evaluated in the emergency room vital examination on presentation revealed a temperature of 98.2 pulse 73 respiration 18 blood pressure 181/87 pulse ox 98% on room air Laboratory data revealed a white blood count of 12.3 hemoglobin 10.7 platelet count 291 sodium 135 potassium 4.4 chloride 98 CO2 27 BUN 18 creatinine 0.93 troponin level was 0.014 coronavirus PCR was negative. Testing in the emergency room revealed EKG done in the emergency room revealed normal sinus rhythm with left ventricular hypertrophy and QRS widening chest x- ray revealed mild cardiomegaly otherwise no acute abnormality. Patient was admitted to medical floor for further evaluation and treatment On 08/02/2021 patient is alert and oriented 3. Patient's blood pressure elevated. Cardiology services adjusting medication. Patient still having ongo ing nausea GI service is consulted. Abdominal ultrasound ordered. 2-D echo ordered. At this time patient denies chest pain or shortness of breath. Denies any urinary burning or frequency Objective - Vital Signs Vital signs: Vital Signs Temp 97.7 F 08/02/21 07:00 Pulse 75 08/02/21 07:00 Resp 18 08/02/21 07:00 BP 201/93 08/02/21 07:00 Pulse Ox 92 L 08/02/21 07:00 Intake & Output 08/01/21 08/02/21 08/02/21 18:59 06:59 18:59 Intake Total 59.981 Balance 59.981 Intake: Intake, IV Titration 59.981 Amount Heparin Sod,Pork in 0.45% 59.981 NaCl 25,000 unit In 0.45 % NaCl 1 250ml.bag @ 10. 86 UNITS/KG/HR 10 mls/hr IV .Q24H [facility] Rx#: [id number] Other: Voiding Method Toilet # Voids 2 1 # Bowel Movements 1 - Exam In general patient is alert and oriented x 3 in no distress HEENT head normocephalic and atraumatic Neck is supple no JVD no goiter no lymphadenopathy no carotid bruit Chest examination is clear to auscultation no crackles no wheezing Cardiac exam reveals regular heart sounds S1 and S2 no gallops no murmurs Abdomen is soft nontender no organomegaly with normal bowel sounds Extremity exam reveals no edema no cyanosis or clubbing Neurological examination reveals no gross focal deficits - Labs CBC & Chem 7: 08/02/21 06:14 08/02/21 06:14 Labs: Abnormal Lab Results - Last 24 Hours (Table) 08/01/21 08/01/21 08/01/21 Range/Units 03:42 10:00 10:00 WBC (4.50-10.00) X 10*3/uL Hgb 10.3 L (11.4-16.0) gm/dL Hct (37.2-46.3) % MCV (80.0-97.0) fL MCH (27.0-32.0) pg MCHC 30.2 L (31.0-37.0) g/dL RDW 16.7 H (11.5-15.5) % BUN 20 H (7-17) mg/dL Creatinine (0.52-1.04) mg/dL Glucose 108 H (74-99) mg/dL POC Glucose (mg/dL) (75-99) mg/dL Total Protein 5.5 L (6.3-8.2) g/dL Albumin 3.2 L (3.5-5.0) g/dL Triglycerides 404.00 H (0.00-149.00) mg/dL HDL Cholesterol 35.40 L (40.00-60.00) mg/dL 08/01/21 08/01/21 08/02/21 Range/Units 12:11 20:17 06:14 WBC 10.46 H (4.50-10.00) X 10*3/uL Hgb 10.0 L (11.4-16.0) gm/dL Hct 33.5 L (37.2-46.3) % MCV 79.8 L (80.0-97.0) fL MCH 23.8 L (27.0-32.0) pg MCHC 29.9 L (31.0-37.0) g/dL RDW 16.7 H (11.5-15.5) % BUN (7-17) mg/dL Creatinine (0.52-1.04) mg/dL Glucose (74-99) mg/dL POC Glucose (mg/dL) 134 H 160 H (75-99) mg/dL Total Protein (6.3-8.2) g/dL Albumin (3.5-5.0) g/dL Triglycerides (0.00-149.00) mg/dL HDL Cholesterol (40.00-60.00) mg/dL 08/02/21 08/02/21 Range/Units 06:14 07:37 WBC (4.50-10.00) X 10*3/uL Hgb (11.4-16.0) gm/dL Hct (37.2-46.3) % MCV (80.0-97.0) fL MCH (27.0-32.0) pg MCHC (31.0-37.0) g/dL RDW (11.5-15.5) % BUN 19 H (7-17) mg/dL Creatinine 1.22 H (0.52-1.04) mg/dL Glucose 112 H (74-99) mg/dL POC Glucose (mg/dL) 141 H (75-99) mg/dL Total Protein 5.8 L (6.3-8.2) g/dL Albumin 3.4 L (3.5-5.0) g/dL Triglycerides (0.00-149.00) mg/dL HDL Cholesterol (40.00-60.00) mg/dL Assessment and Plan Plan: Recurrent episodes of chest pain Underlying history of coronary artery disease with previous history of angioplasty and stent placement Evidence of cardiomegaly on chest x-ray and EKG, will check echocardiogram Underlying history of hypertension with elevated blood pressure. Hydrochlorothiazide added per cardiology will continue to monitor Underlying history of hyperlipidemia Nausea with epigastric pain. Abdominal ultrasound ordered. 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
--- NOTE | 2021-08-02 11:51 | P.PN ---
Subjective HISTORY OF PRESENTING ILLNESS This is a pleasant 50-year-old female past medical history significant for coronary artery disease status post multivessel PCI, hypertension, dyslipidemia, diabetes mellitus and chronic nicotine dependence. She follows in the office with Dr. Jasso. We have been asked to see in consultation for chest pain. The patient was seen and examined resting comfortably laying flat in bed in no acute distress. She is sleeping and not compliantly waking up to discuss the reason for her hospitalization. Her is at the bedside. She does talk but keeps her eyes closed. Apparently for the previous few days she has been struggling with her blood pressure. It has been running high at home and she was advised by her PCP to take an additional dose of enalapril at home. She had been doing that for the previous couple of days and then yesterday she had an episode of discomfort in the midsternal region prompting her to come to the emergency department. At times she feels discomfort also in the right arm. The discomfort is intermittent and not related to activity or exertion. She denies any shortness of breath. The chest discomfort is not related to deep inspiration. She denies nausea, vomiting, palpitations or diaphoresis. On exam the pain is reproducible in the midsternal region. The patient recently underwent a stress test in the office 07/24/2021 that was normal with no evidence of reversible cardiac ischemia. Most recent echocardiogram obtained 2018 revealed preserved LV systolic function with ejection fraction 60-65%. Most recent cardiac catheterization performed in 2018 revealed a patent stent in the LAD, diagonal branch and RCA with mild nonobstructive disease noted in the RCA and LAD. 08/02/2021 Patient seen and examined resting comfortably in no acute distress. She has had no further symptoms of chest discomfort, however does feel some epigastric burning. Blood pressure 178/90 heart rate 75 afebrile maintaining oxygen saturation on room air. Laboratory data reviewed. She is scheduled for an EGD with Dr. Jasso tomorrow. PHYSICAL EXAMINATION CONSTITUTIONAL: No apparent distress. HEENT: Head is normocephalic. Pupils are equal, round. Sclerae anicteric. Mucous membranes of the mouth are moist. No JVD. No carotid bruit. CHEST EXAMINATION: Lungs are clear to auscultation. No chest wall tenderness is noted on palpation or with deep breathing. HEART EXAMINATION: Regular rate and rhythm. S1, S2 heard. No murmurs, gallops or rub. EXTREMITIES: 2+ peripheral pulses, no lower extremity edema and no calf tenderness. ASSESSMENT Chest pain, atypical and reproducible Hypertension, uncontrolled Leukocytosis Coronary artery disease Hypertension Dyslipidemia Chronic nicotine dependence PLAN Stable from a cardiac perspective. EGD tomorrow. We will follow along as needed, follow up with Dr. Jasso upon discharge. Nurse Practitioner note has been reviewed, I agree with a documented findings and plan of care. Patient was seen and examined. Objective - Vital Signs Vital signs: Vital Signs Temp 97.7 F 08/02/21 07:00 Pulse 75 08/02/21 07:00 Resp 18 08/02/21 07:00 BP 178/90 08/02/21 08:00 Pulse Ox 92 L 08/02/21 07:00 Intake & Output 08/01/21 08/02/21 08/02/21 18:59 06:59 18:59 Intake Total 59.981 Balance 59.981 Intake: Intake, IV Titration 59.981 Amount Heparin Sod,Pork in 0.45% 59.981 NaCl 25,000 unit In 0.45 % NaCl 1 250ml.bag @ 10. 86 UNITS/KG/HR 10 mls/hr IV .Q24H [facility] Rx#: [id number] Other: Voiding Method Toilet # Voids 2 1 # Bowel Movements 1 - Labs CBC & Chem 7: 08/02/21 06:14 08/02/21 06:14 Labs: Abnormal Lab Results - Last 24 Hours (Table) 08/01/21 08/01/21 08/01/21 Range/Units 10:00 10:00 12:11 WBC (4.50-10.00) X 10*3/uL Hgb 10.3 L (11.4-16.0) gm/dL Hct (37.2-46.3) % MCV (80.0-97.0) fL MCH (27.0-32.0) pg MCHC 30.2 L (31.0-37.0) g/dL RDW 16.7 H (11.5-15.5) % BUN 20 H (7-17) mg/dL Creatinine (0.52-1.04) mg/dL Glucose 108 H (74-99) mg/dL POC Glucose (mg/dL) 134 H (75-99) mg/dL Total Protein 5.5 L (6.3-8.2) g/dL Albumin 3.2 L (3.5-5.0) g/dL 08/01/21 08/02/21 08/02/21 Range/Units 20:17 06:14 06:14 WBC 10.46 H (4.50-10.00) X 10*3/uL Hgb 10.0 L (11.4-16.0) gm/dL Hct 33.5 L (37.2-46.3) % MCV 79.8 L (80.0-97.0) fL MCH 23.8 L (27.0-32.0) pg MCHC 29.9 L (31.0-37.0) g/dL RDW 16.7 H (11.5-15.5) % BUN 19 H (7-17) mg/dL Creatinine 1.22 H (0.52-1.04) mg/dL Glucose 112 H (74-99) mg/dL POC Glucose (mg/dL) 160 H (75-99) mg/dL Total Protein 5.8 L (6.3-8.2) g/dL Albumin 3.4 L (3.5-5.0) g/dL 08/02/21 Range/Units 07:37 WBC (4.50-10.00) X 10*3/uL Hgb (11.4-16.0) gm/dL Hct (37.2-46.3) % MCV (80.0-97.0) fL MCH (27.0-32.0) pg MCHC (31.0-37.0) g/dL RDW (11.5-15.5) % BUN (7-17) mg/dL Creatinine (0.52-1.04) mg/dL Glucose (74-99) mg/dL POC Glucose (mg/dL) 141 H (75-99) mg/dL Total Protein (6.3-8.2) g/dL Albumin (3.5-5.0) g/dL
[2021-08-02 12:40] LABS: Glucose,Whole Blood 195 mg/dL (75-99)
--- NOTE | 2021-08-02 13:21 | P.CONS ---
History of Present Illness - Reason for Consult Consult date: 08/02/21 Epigastric pain Requesting physician: Evin Sanchez - Chief Complaint Chest pain - History of Present Illness [id number] female who presented to the emergency department with complaints of chest pain/epigastric pain. Patient initially reported chest pain in the epigastric region that was radiating to her arm. Cardiology has seen patient and ruled out an acute coronary event. She does have a past medical history significant for coronary artery disease status post multivessel PCI, hypertension, dyslipidemia, diabetes mellitus, chronic nicotine dependence and chronic GERD. She states that she's been experiencing this epigastric discomfort for the last several months. States she takes Protonix daily with Pepcid at night. She had been following with Adalgisa Andres for recurrent GERD and abdominal pain. She had an EGD and colonoscopy in April [address] Perales for recurrent abdominal pain and vomiting. The EGD showed gastritis and a colonoscopy was significant for polypectomy. Patient states she had a recent diagnosis of MS 4 months ago [address] sees [address] Strange. States she is nauseated all the time and that she is having symptoms of dysphagia where after she takes 3-4 bites she has to wait a while before she can take the next bite get it down. Patient is currently on Plavix and aspirin with her last dose being taken on 07/30/2021. She's been afebrile, no recent vomiting, and denies any diarrhea. Review of Systems REVIEW OF SYSTEMS: CARDIOPULMONARY: Chest pain that had radiated to her arm. No shortness of breath. Gastrointestinal: Burning sensation in epigastric region with epigastric pain. Nausea, no vomiting. No hematemesis, coffee-ground emesis. No rectal bleeding, or melena. GENITOURINARY: No dysuria or hematuria. MUSCULOSKELETAL: Reports normal range of motion., Joint pain. SKIN: No rashes. No jaundice. ENDOCRINE: No chills, fevers. No excessive weight gain or loss. No polydipsia or polyuria. PSYCHIATRIC: Unremarkable. NEUROLOGY: No change in mental status. Denies dizziness, headache. ENT: Vision unremarkable. CONSTITUTIONAL: No recent weight loss. No fever, chills, night sweats. Past Medical History Past Medical History: Cancer, Chest Pain / Angina, CVA/TIA, Diabetes Mellitus, Fibromyalgia, Hyperlipidemia, Hypertension, Myocardial Infarction ([place]), Musculoskeletal Disorder, Neurologic Disorder, Sleep Apnea/CPAP/BIPAP Additional Past Medical History / Comment(s): See Dr Pompa's H&P. 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 - slight foot drag when tired.diabetes mellitus insulin-dependent, MS, questionable hypercoagulable disease, ovarian cyst, MIX5 has cpap, syncope Last Myocardial Infarction Date:: unk History of Any Multi-Drug Resistant Organisms: None Reported Past Surgical History: Section, Cholecystectomy, Heart Catheterization With Stent, Hysterectomy, Tubal Ligation, Uterine Ablation Additional Past Surgical History / Comment(s): vein stripping right leg, radio frequency ablation of right back-02/22/2015, four stents on 04/03/16 and one on march 05, ovaries removed, colonscopy- polyp removal Past Anesthesia/Blood Transfusion Reactions: Motion Sickness Additional Past Anesthesia/Blood Transfusion Reaction / Comm: mild claustrophobia Date of Last Stent Placement:: 04/03/16 Past Psychological History: Anxiety, Depression Additional Psychological History / Comment(s): at time of s charting pt denies any thoughts of wanting to harm self. pt lives with her spouse. pets: 1 dog. lives in a single story home that has 3 front steps , 2 back steps. pt has a cane.walker, w/c uses as needed. denies any recent falls. Smoking Status: Current every day smoker Past Alcohol Use History: None Reported Additional Past Alcohol Use History / Comment(s): Patient is a smoker of a half a pack of cigarettes per day for 25 years. Past Drug Use History: None Reported - Past Family History Father Family Medical History: Congestive Heart Failure (CHF), Coronary Artery Disease (CAD), Diabetes Mellitus Mother Family Medical History: Cancer, Hypertension, Respiratory Disorder Additional Family Medical History / Comment(s): emphysema, colon CA Medications and Allergies Home Medications Medication Instructions Recorded Confirmed Type Citalopram Hydrobromide [CeleXA] 40 mg PO DAILY #1 tab 03/10/15 07/31/21 Rx Pregabalin [Lyrica] 150 mg PO BID 06/25/15 07/31/21 History lamoTRIgine 200 mg PO BID 07/30/16 07/31/21 History Magnesium Gluconate [Magonate] 500 mg PO HS 03/27/17 07/31/21 History Aspirin [Adult Low Dose Aspirin EC] 81 mg PO HS 11/26/17 07/31/21 History Enalapril [Vasotec] 10 mg PO BID 11/26/17 07/31/21 History Nitroglycerin Sl Tabs [Nitrostat] 0.4 mg SUBLINGUAL Q5M PRN 11/26/17 07/31/21 History DULoxetine HCL [Cymbalta] 60 mg PO DAILY 08/25/18 07/31/21 History Isosorbide Mononitrate ER [Imdur] 60 mg PO DAILY 09/08/18 07/31/21 History Carvedilol [Coreg] 25 mg PO BID 01/22/19 07/31/21 History Vitamin B Complex 1 cap PO HS 06/23/19 07/31/21 History Morphine Sulfate [Ms Contin] 15 mg PO DAILY PRN 08/11/19 07/31/21 History ARIPiprazole [Abilify] 2 mg PO DAILY 11/08/20 07/31/21 History Clopidogrel [Plavix] 75 mg PO HS 11/08/20 07/31/21 History Insulin Glargine,Hum.rec.anlog 40 unit SQ DIRECTED 11/08/20 07/31/21 History [Lantus Solostar] ALPRAZolam [Xanax] 1 mg PO BID@0900,2100 07/31/21 07/31/21 History Albuterol Nebulized [Ventolin 2.5 mg INHALATION RT-QID PRN 07/31/21 07/31/21 History Nebulized] Atorvastatin [Lipitor] 40 mg PO DAILY 07/31/21 07/31/21 History Cholecalciferol (Vitamin D3) 125 mcg PO HS 07/31/21 07/31/21 History [Vitamin D3 (125 MCG = 5,000 IU)] Famotidine [Pepcid] 40 mg PO DAILY 07/31/21 07/31/21 History HYDROcodone/APAP 7.5-325MG [[place] 1 tab PO Q12HR PRN 07/31/21 07/31/21 History 7.5-325] Ketorolac [Toradol] 10 mg PO Q8H PRN 07/31/21 07/31/21 History Methylfolate 1,000mcg 1 tab PO BID 07/31/21 07/31/21 History Pantoprazole [Protonix] 40 mg PO DAILY 07/31/21 07/31/21 History Prochlorperazine [Compazine] 10 mg PO TID PRN 07/31/21 07/31/21 History metFORMIN HCL [Glucophage] 1,000 mg PO HS 07/31/21 07/31/21 History metFORMIN HCL [Glucophage] 500 mg PO DAILY 07/31/21 07/31/21 History Allergies Allergy/AdvReac Type Severity Reaction Status Date / Time Fish Containing Products Allergy Unknown Verified 07/31/21 19:43 Iodinated Contrast Media Allergy throat Verified 07/31/21 19:43 [Iodinated Contrast Media - swelling IV Dye] Sulfa (Sulfonamide Allergy throat Verified 07/31/21 19:43 Antibiotics) swelling sulfamethoxazole Allergy throat Verified 07/31/21 19:43 [From Septra] swelling tree nut [Nut] Allergy Unknown Verified 07/31/21 19:43 trimethoprim [From ] Allergy throat Verified 07/31/21 19:43 swelling Physical Exam Vitals: Vital Signs Temp Pulse Resp BP Pulse Ox 08/02/21 08:00 178/90 08/02/21 07:00 97.7 F 75 18 201/93 92 L 08/02/21 01:40 79 16 08/02/21 01:38 98.0 F 79 16 183/80 93 L 08/01/21 20:03 98.0 F 76 16 179/93 95 08/01/21 15:00 98.4 F 75 16 151/75 95 Intake and Output 08/01/21 08/02/21 08/02/21 22:59 06:59 14:59 Other: Voiding Method Toilet Toilet # Voids 1 1 General appearance: The patient is alert, oriented, appears in no acute distress. HET: Head is normocephalic and atraumatic. Conjunctiva pink. Sclera anicteric. Neck: Supple without lymphadenopathy. Trachea midline. Heart: S1 S2. Regular rate and rhythm. Lungs: Clear to auscultation. Abdomen: Soft, epigastric tenderness, nondistended with bowel sounds. No guarding or rigidity. Skin: No rashes. No jaundice. Extremities: Normal skin color and turgor. No pedal edema. Neurological: No focal deficits. Alert and oriented 3.. Results CBC & Chem 7: 08/02/21 06:14 08/02/21 06:14 Labs: Abnormal Lab Results - Last 24 Hours (Table) 08/01/21 08/01/21 08/01/21 Range/Units 10:00 10:00 20:17 WBC (4.50-10.00) X 10*3/uL Hgb 10.3 L (11.4-16.0) gm/dL Hct (37.2-46.3) % MCV (80.0-97.0) fL MCH (27.0-32.0) pg MCHC 30.2 L (31.0-37.0) g/dL RDW 16.7 H (11.5-15.5) % BUN 20 H (7-17) mg/dL Creatinine (0.52-1.04) mg/dL Glucose 108 H (74-99) mg/dL POC Glucose (mg/dL) 160 H (75-99) mg/dL Total Protein 5.5 L (6.3-8.2) g/dL Albumin 3.2 L (3.5-5.0) g/dL 08/02/21 08/02/21 08/02/21 Range/Units 06:14 06:14 07:37 WBC 10.46 H (4.50-10.00) X 10*3/uL Hgb 10.0 L (11.4-16.0) gm/dL Hct 33.5 L (37.2-46.3) % MCV 79.8 L (80.0-97.0) fL MCH 23.8 L (27.0-32.0) pg MCHC 29.9 L (31.0-37.0) g/dL RDW 16.7 H (11.5-15.5) % BUN 19 H (7-17) mg/dL Creatinine 1.22 H (0.52-1.04) mg/dL Glucose 112 H (74-99) mg/dL POC Glucose (mg/dL) 141 H (75-99) mg/dL Total Protein 5.8 L (6.3-8.2) g/dL Albumin 3.4 L (3.5-5.0) g/dL 08/02/21 Range/Units 12:36 WBC (4.50-10.00) X 10*3/uL Hgb (11.4-16.0) gm/dL Hct (37.2-46.3) % MCV (80.0-97.0) fL MCH (27.0-32.0) pg MCHC (31.0-37.0) g/dL RDW (11.5-15.5) % BUN (7-17) mg/dL Creatinine (0.52-1.04) mg/dL Glucose (74-99) mg/dL POC Glucose (mg/dL) 195 H (75-99) mg/dL Total Protein (6.3-8.2) g/dL Albumin (3.5-5.0) g/dL Comments: Abdominal ultrasound: Hepatosplenomegaly one nonobstructing left renal stone, common bile duct is slightly prominent for a postcholecystectomy patient Assessment and Plan (1) Epigastric abdominal pain Narrative/Plan: 50-year-old female who presented to the emergency department with complaints of chest pain that was radiating down her arm. Acute coronary event has been ruled out by cardiology. Gastroenterology was asked to see patient for epigastric pain for which she states she has had for the last several months. She has followed up in the past with Adalgisa rodriguez with gastroenterology. She was currently taking Protonix daily as well as Pepcid at bedtime. States that she is constantly nauseated, has been experiencing difficulty with swallowing. States that she will eat 2-3 bites and will have to wait before she can eat anything else as it is difficult to get down. She currently does take Plavix and aspirin for her coronary artery disease. She does have a history of abdominal pain and vomiting and underwent an EGD and colonoscopy in April [address] Perales. EGD showed gastritis and colonoscopy was significant for polypectomy. It is not having any vomiting, she denies any hematemesis or coffee-ground emesis. Bowel movements have been normal, she denies any hematochezia or melena. Last dose of Plavix taken on 07/30/2021, will continue to hold. Will increase Protonix 40 mg twice a day. Will proceed with EGD tomorrow. Current Visit: Yes Status: Acute Code(s): R10.13 - EPIGASTRIC PAIN SNOMED Code(s): 22379748 (2) Chest pain Narrative/Plan: Cardiology following patient. They've ruled out any acute coronary event. Current Visit: No Status: Acute Code(s): R07.9 - CHEST PAIN, UNSPECIFIED SNOMED Code(s): 53959961 (3) GERD (gastroesophageal reflux disease) Current Visit: Yes Status: Acute Code(s): K21.9 - GASTRO-ESOPHAGEAL REFLUX DISEASE WITHOUT ESOPHAGITIS SNOMED Code(s): 812091238 (4) Smoker Current Visit: Yes Status: Acute Code(s): F17.200 - NICOTINE DEPENDENCE, UNSPECIFIED, UNCOMPLICATED SNOMED Code(s): 52158380 (5) CAD (coronary artery disease) Current Visit: Yes Status: Acute Code(s): I25.10 - ATHSCL HEART DISEASE OF [place] CORONARY ARTERY W/O ANG PCTRS SNOMED Code(s): 33685949 Plan: 1. Continue symptomatic and supportive care 2. Antiemetics as needed 3. Will increase Protonix to 40 mg twice a day 4. Diet as tolerated, nothing by mouth after midnight 5. Continue to hold Plavix 6. Will proceed with EGD tomorrow. Procedure discussed with patient in detail including risks and benefits, patient is willing to proceed. Thank you for this consultation, we will continue to follow. Dr. Gonsalo Jasso I agree with the dictator's note, documented as a scribe by Pat Sánchez.
[2021-08-02 17:11] LABS: Glucose,Whole Blood 130 mg/dL (75-99)
[2021-08-02] MEDS: lisinopriL 20 MG TAB PO SCH (20:12)
[2021-08-02] MEDS: MAGNESIUM OXIDE 400 MG TAB PO SCH (20:13)
[2021-08-02] MEDS: ASPIRIN 81 MG PO SCH (20:13)
[2021-08-02] MEDS: CHOLECALCIFEROL 25 MCG (1000 IU) TABLET PO SCH (20:13)
[2021-08-02 20:19] LABS: Glucose,Whole Blood 158 mg/dL (75-99)
[2021-08-03 05:26] LABS: ALT 15 U/L (4-34); AST 23 U/L (14-36); African American GFR (CKD) 63 (>60 ml/min/1.73 sqM); Albumin 3.6 g/dL (3.5-5.0); Albumin/Globulin Ratio 1.4; Alkaline Phosphatase 108 U/L (38-126); Anion Gap 13 mmol/L; Blood Urea Nitrogen 24 mg/dL (7-17); Calcium 10.1 mg/dL (8.4-10.2); Carbon Dioxide 25 mmol/L (22-30); Chloride 101 mmol/L (98-107); Globulin 2.5 g/dL; Glucose 137 mg/dL (74-99); Non-African American GFR(CKD) 55 (>60 ml/min/1.73 sqM); Potassium 4.1 mmol/L (3.5-5.1); Sodium 139 mmol/L (137-145); Total Bilirubin 0.3 mg/dL (0.2-1.3); Total Protein 6.1 g/dL (6.3-8.2)
[2021-08-03 07:38] LABS: Glucose,Whole Blood 148 mg/dL (75-99)
[2021-08-03] MEDS: carvediloL 12.5 MG TAB PO SCH (08:14)
[2021-08-03] MEDS: hydroCHLOROthiazide 25 MG TAB PO SCH (08:14)
[2021-08-03] MEDS: FAMOTIDINE 20 MG TAB PO SCH (08:14)
[2021-08-03] MEDS: ISOSORBIDE MONONITRATE ER 60 MG TAB.ER.24H PO SCH (08:14)
[2021-08-03] MEDS: ARIPiprazole 2 MG TAB PO SCH (08:14)
[2021-08-03] MEDS: PREGABALIN 75 MG CAP PO SCH (08:14)
[2021-08-03] MEDS: ALPRAZolam 1 MG TAB PO SCH (08:14)
[2021-08-03] MEDS: PANTOPRAZOLE 40 MG TABLET PO SCH ×2 (08:15→17:17)
[2021-08-03] MEDS: lamoTRIgine 100 MG TAB PO SCH (08:21)
[2021-08-03 09:58] LABS: Basophils # (A) 0.07 X 10*3/uL (0.00-0.10); Basophils % (A) 0.6 %; Eosinophils # (A) 0.18 X 10*3/uL (0.04-0.35); Eosinophils % (A) 1.7 %; HCT 34.6 % (37.2-46.3); HGB 10.3 g/dL (12.0-15.0); Lymphocytes % (A) 19.4 %; MCH 24.1 pg (27.0-32.0); MCHC 29.8 g/dL (32.0-37.0); Mean Platelet Volume 11.3 fL (9.5-12.2); Monocytes # (A) 0.76 X 10*3/uL (0.20-1.00); Neutrophils # (A) 7.69 X 10*3/uL (1.80-7.70); Neutrophils % (A) 70.9 %; Platelet Count 281 X 10*3/uL (140-440); RBC 4.27 X 10*6/uL (4.10-5.20); RDW 16.5 % (11.5-14.5); WBC 10.84 X 10*3/uL (4.50-10.00)
[2021-08-03] MEDS ORDERED: amLODIPine 5 MG TAB PO SCH (10:00)
[2021-08-03] MEDS ORDERED: ENOXAPARIN 40 MG/0.4 ML SYRINGE SQ SCH (10:00)
[2021-08-03 11:28] LABS: Glucose,Whole Blood 139 mg/dL (75-99)
--- NOTE | 2021-08-03 12:44 | ECHOF ---
Referral Reason:Chest pain MEASUREMENTS -------- HEIGHT: 167.6 cm WEIGHT: 92.1 kg BP: 158/79 RVIDd: 3.2 cm (< 3.3) IVSd: 2.3 cm (0.6 - 1.1) LVIDd: 5.3 cm (3.9 - 5.3) LVPWd: 1.9 cm (0.6 - 1.1) IVSs: 2.5 cm LVIDs: 3.2 cm LVPWs: 2.8 cm LAESV Index (A-L): 34.61 ml/m Ao Diam: 3.6 cm (2.0 - 3.7) AV Cusp: 2.3 cm (1.5 - 2.6) LA Diam: 3.8 cm (2.7 - 3.8) MV EXCURSION: 18.162 mm (> 18.000) MV EF SLOPE: 177 mm/s (70 - 150) EPSS: 1.2 cm MV E Cali: 0.75 m/s MV DecT: 237 ms MV A Cali: 1.20 m/s MV E/A Ratio: 0.62 RAP: 5.00 mmHg RVSP: 13.66 mmHg FINDINGS -------- Sinus rhythm. This was a technically adequate study. The left ventricular size is normal. There is severe concentric left ventricular hypertrophy. Ove rall left ventricular systolic function is normal with, an EF between 55 - 60 %. The right ventricle is normal in size. LA is midly dilated 29-33ml/m2. The right atrial size is normal. Interatrial and interventricular septum intact. There is no evidence of aortic regurgitation. There is no evidence of aortic stenosis. Mild mitral regurgitation is present. Mild tricuspid regurgitation present. There is no evidence of pulmonary hypertension. The right v entricular systolic pressure, as measured by Doppler, is 13.66mmHg. There is no pulmonic regurgitation present. The aortic root size is normal. IVC Not well visulized. There is no pericardial effusion. CONCLUSIONS -------- 1. The left ventricular size is normal. 2. There is severe concentric left ventricular hypertrophy. 3. Overall left ventricular systolic function is normal with, an EF between 55 - 60 %. 4. LA is midly dilated 29-33ml/m2. 5. Mild mitral regurgitation is present. 6. Mild tricuspid regurgitation present. INSPECTOR TIMERS: Rachel Murillo RDCS
[2021-08-03] MEDS ORDERED: PROPOFOL 10 MG/ML 20 ML VIAL IV ONE (13:05)
[2021-08-03] MEDS ORDERED: LIDOCAINE 1% INJ 10MG/ML (20 ML MDV) ONE (13:05)
[2021-08-03] MEDS ORDERED: IV FLUID CONTINUATION 1,000 ML IV ONE ×2 (13:09)
--- NOTE | 2021-08-03 13:21 | P.PCN ---
Date of Procedure: 08/03/21 Procedure(s) Performed: BRIEF HISTORY: Patient is a 50-year-old, pleasant, at female scheduled for an upper endoscopy as a part of evaluation of persistent epigastric pain for the last 5 years duration but has been progressively getting worse in the last few months.. PROCEDURE PERFORMED: Esophagogastroduodenoscopy with biopsy. PREOPERATIVE DIAGNOSIS: Chronic persistent epigastric pain. IV sedation per anesthesia. PROCEDURE: After informed consent was obtained, the patient was brought into the endoscopy unit. IV sedation was administered by Anesthesia under continuous monitoring. Initially the Olympus GIF-140 video endoscope was inserted into the mouth. Esophagus intubated without any difficulty. It was gradually advanced into the stomach and duodenum and carefully examined. The bulb and the second part of the duodenum appeared normal. The scope at this time was withdrawn to the stomach, adequately insufflated with air, and upon careful examination, mucosa of the antrum, had mild antral gastritis and biopsies were done from this area. The body, cardia and the fundus appeared normal. The scope was then withdrawn into the esophagus. The GE junction was located at 41 cm from the incisors. The esophagus appeared normal. There were no erosions or ulcerations seen and the patient tolerated the procedure well. IMPRESSION: 1. Mild antral gastritis. 2. No evidence of esophagitis or peptic ulcer disease. RECOMMENDATIONS: The findings of this examination were discussed with the erasto quach as well as a family. She will continue with her current medications and follow antireflux measures.. Diet will be advanced as tolerated.
[2021-08-03] MEDS: CITALOPRAM HYDROBROMIDE 20 MG TAB PO SCH (14:22)
[2021-08-03] MEDS: DULoxetine HCL 60 MG CAPSULE.DR PO SCH (14:22)
[2021-08-03] MEDS: ATORVASTATIN 40 MG TAB PO SCH (14:22)
[2021-08-03] MEDS: metFORMIN 500 MG TAB PO SCH (14:22)
[2021-08-03 14:25] VITALS: TEMP 97.7
--- NOTE | 2021-08-03 17:20 | P.PN ---
Subjective Progress Note Date: 08/03/21 Leticia Langley, is a 50-year-old female who presented to [facility] emergency room with a chief complaint of chest pain. Patient stated that she started having episodes of chest pain on and off 3 days prior to presentation. Pain usually lasts about 1 hour she describes a pressure sens ation in the middle of the chest radiating towards the right arm, she denies any shortness of breath or palpitation, no nausea or vomiting ,she occasionally has diaphoresis with chest pain. Patient has a known history of hypertension, hyperlipidemia, and a previous history of coronary artery disease with history of angioplasty and stent placement in the past. She was evaluated in the emergency room vital examination on presentation revealed a temperature of 98.2 pulse 73 respiration 18 blood pressure 181/87 pulse ox 98% on room air Laboratory data revealed a white blood count of 12.3 hemoglobin 10.7 platelet count 291 sodium 135 potassium 4.4 chloride 98 CO2 27 BUN 18 creatinine 0.93 troponin level was 0.014 coronavirus PCR was negative. Testing in the emergency room revealed EKG done in the emergency room revealed normal sinus rhythm with left ventricular hypertrophy and QRS widening chest x- ray revealed mild cardiomegaly otherwise no acute abnormality. Patient was admitted to medical floor for further evaluation and treatment On 08/02/2021 patient is alert and oriented 3. Patient's blood pressure elevated. Cardiology services adjusting medication. Patient still having ongo ing nausea GI service is consulted. Abdominal ultrasound ordered. 2-D echo ordered. At this time patient denies chest pain or shortness of breath. Denies any urinary burning or frequency. On 08/03/2021 patient was seen and examined on the medical floor she is alert and oriented 3 in no apparent distress she is scheduled for EGD to today Blood pressure is still significantly elevated, she had a hypertensive emergency and was started on multiple blood pressure medications during this admission, blood pressure last night was 184/90, I will add Norvasc 5 mg by mouth daily starting now, and continue to monitor blood pressure closely Objective - Vital Signs Vital signs: Vital Signs Temp 98.0 F 08/03/21 07:00 Pulse 78 08/03/21 07:00 Resp 17 08/03/21 08:00 BP 166/92 08/03/21 07:00 Pulse Ox 99 08/03/21 07:00 Intake & Output 08/02/21 08/03/21 08/03/21 18:59 06:59 18:59 Intake Total 360 Output Total 3 Balance 360 -3 Intake: Oral 360 Output: Stool 3 Other: Voiding Method Toilet Toilet # Voids 1 2 - Exam In general patient is alert and oriented x 3 in no distress HEENT head normocephalic and atraumatic Neck is supple no JVD no goiter no lymphadenopathy no carotid bruit Chest examination is clear to auscultation no crackles no wheezing Cardiac exam reveals regular heart sounds S1 and S2 no gallops no murmurs Abdomen is soft nontender no organomegaly with normal bowel sounds Extremity exam reveals no edema no cyanosis or clubbing Neurological examination reveals no gross focal deficits - Labs CBC & Chem 7: 08/03/21 04:10 08/03/21 04:10 Labs: Abnormal Lab Results - Last 24 Hours (Table) 08/02/21 08/02/21 08/02/21 Range/Units 12:36 17:00 20:18 WBC (4.50-10.00) X 10*3/uL Hgb (12.0-15.0) g/dL Hct (37.2-46.3) % MCH (27.0-32.0) pg MCHC (32.0-37.0) g/dL RDW (11.5-14.5) % BUN (7-17) mg/dL Creatinine (0.52-1.04) mg/dL Glucose (74-99) mg/dL POC Glucose (mg/dL) 195 H 130 H 158 H (75-99) mg/dL Total Protein (6.3-8.2) g/dL 08/03/21 08/03/21 08/03/21 Range/Units 04:10 04:10 07:37 WBC 10.84 H (4.50-10.00) X 10*3/uL Hgb 10.3 L (12.0-15.0) g/dL Hct 34.6 L (37.2-46.3) % MCH 24.1 L (27.0-32.0) pg MCHC 29.8 L (32.0-37.0) g/dL RDW 16.5 H (11.5-14.5) % BUN 24 H (7-17) mg/dL Creatinine 1.17 H (0.52-1.04) mg/dL Glucose 137 H (74-99) mg/dL POC Glucose (mg/dL) 148 H (75-99) mg/dL Total Protein 6.1 L (6.3-8.2) g/dL 08/03/21 Range/Units 11:26 WBC (4.50-10.00) X 10*3/uL Hgb (12.0-15.0) g/dL Hct (37.2-46.3) % MCH (27.0-32.0) pg MCHC (32.0-37.0) g/dL RDW (11.5-14.5) % BUN (7-17) mg/dL Creatinine (0.52-1.04) mg/dL Glucose (74-99) mg/dL POC Glucose (mg/dL) 139 H (75-99) mg/dL Total Protein (6.3-8.2) g/dL Assessment and Plan Plan: Hypertensive emergency Recurrent episodes of chest pain Underlying history of coronary artery disease with previous history of angioplasty and stent placement Evidence of cardiomegaly on chest x-ray and EKG, will check echocardiogram Underlying history of hypertension with elevated blood pressure. Hydrochlorothiazide added per cardiology will continue to monitor Underlying history of hyperlipidemia Nausea with epigastric pain. Abdominal ultrasound ordered. GI service is consulted At this time patient is admitted to telemetry floor she was started on IV heparin Echocardiogram ordered [employer] in acute coronary event has been ruled out GI services following Plans for possible EGD per GI abdominal ultrasound ordered
[2021-08-03 17:21] VITALS: BP 136/81; PULSE 79; RESP 16
[2021-08-03 17:28] LABS: Glucose,Whole Blood 159 mg/dL (75-99)
--- NOTE | 2021-08-03 18:01 | P.DS ---
Providers Date of admission: 08/03/21 07:23 Expected date of discharge: 08/03/21 Attending physician: Evin Sanchez Consults: 07/31/21 14:40 Consult Physician Urgent Consulting Provider: [facility] Consult Reason/Comments: Unstable angina Do you want consulting provider notified?: Yes 08/01/21 15:00 Consult Physician Routine Consulting Provider: Kaylee Jasso Consult Reason/Comments: Epigastric pain Do you want consulting provider notified?: Yes Primary care physician: Dagmar Hennessy Hospital Course: Diagnosis on discharge: Hypertensive emergency Recurrent episodes of chest pain Underlying history of coronary artery disease with previous history of angioplasty and stent placement Evidence of cardiomegaly on chest x-ray and EKG, will check echocardiogram Underlying history of hypertension with elevated blood pressure. Hydrochlorothiazide added per cardiology will continue to monitor Underlying history of hyperlipidemia Nausea with epigastric pain. Abdominal ultrasound ordered. GI service is consulted Patient had an EGD during this admission that revealed evidence of gastritis Hospital course: Leticia Langley, is a 50-year-old female who presented to [facility] emergency room with a chief complaint of chest pain. Patient stated that she started having episodes of chest pain on and off 3 days prior to presentation. Pain usually lasts about 1 hour she describes a pressure sensation in the middle of the chest radiating towards the right arm, she denies any shortness of breath or palpitation, no nausea or vomiting ,she occasionally has diaphoresis with chest pain. Patient has a known history of hypertension, hyperlipidemia, and a previous history of coronary artery disease with history of angioplasty and stent placement in the past. She was evaluated in the emergency room vital examination on presentation revealed a temperature of 98.2 pulse 73 respiration 18 blood pressure 181/87 pulse ox 98% on room air Laboratory data revealed a white blood count of 12.3 hemoglobin 10.7 platelet count 291 sodium 135 potassium 4.4 chloride 98 CO2 27 BUN 18 creatinine 0.93 troponin level was 0.014 coronavirus PCR was negative. Testing in the emergency room revealed EKG done in the emergency room revealed normal sinus rhythm with left ventricular hypertrophy and QRS widening chest x- ray revealed mild cardiomegaly otherwise no acute abnormality. Patient was admitted to medical floor for further evaluation and treatment On 08/02/2021 patient is alert and oriented 3. Patient's blood pressure elevated. Cardiology services adjusting medication. Patient still having ongoing nausea GI service is consulted. Abdominal ultrasound ordered. 2-D echo ordered. At this time patient denies chest pain or shortness of breath. Denies any urinary burning or frequency. On 08/03/2021 patient was seen and examined on the medical floor she is alert an d oriented 3 in no apparent distress she is scheduled for EGD to today Blood pressure is still significantly elevated, she had a hypertensive emergency and was started on multiple blood pressure medications during this admission, blood pressure last night was 184/90, I will add Norvasc 5 mg by mouth daily starting now, and continue to monitor blood pressure closely. During this admission Norvasc 5 mg by mouth daily and hydrochlorothiazide 25 mg were added to medication regimen Blood pressure was well controlled at the time of discharge Follow-up with Dr. Hennessy in 2-3 days Plan - Discharge Summary Discharge Rx Participant: No New Discharge Prescriptions: New hydroCHLOROthiazide [Hydrodiuril] 25 mg PO DAILY tab amLODIPine [Norvasc] 5 mg PO DAILY tab Continue Citalopram Hydrobromide [CeleXA] 40 mg PO DAILY #1 tab Pregabalin [Lyrica] 150 mg PO BID lamoTRIgine 200 mg PO BID Magnesium Gluconate [Magonate] 500 mg PO HS Nitroglycerin Sl Tabs [Nitrostat] 0.4 mg SUBLINGUAL Q5M PRN PRN Reason: Chest Pain Enalapril [Vasotec] 10 mg PO BID Aspirin [Adult Low Dose Aspirin EC] 81 mg PO HS DULoxetine HCL [Cymbalta] 60 mg PO DAILY Isosorbide Mononitrate ER [Imdur] 60 mg PO DAILY Carvedilol [Coreg] 25 mg PO BID Vitamin B Complex 1 cap PO HS Morphine Sulfate [Ms Contin] 15 mg PO DAILY PRN PRN Reason: Severe Pain Insulin Glargine,Hum.rec.anlog [Lantus Solostar Pen] 40 unit SQ DIRECTED ARIPiprazole [Abilify] 2 mg PO DAILY Clopidogrel [Plavix] 75 mg PO HS ALPRAZolam [Xanax] 1 mg PO BID@0900,2100 metFORMIN HCL [Glucophage] 1,000 mg PO HS Pantoprazole [Protonix] 40 mg PO DAILY Atorvastatin [Lipitor] 40 mg PO DAILY Cholecalciferol (Vitamin D3) [Vitamin D3 (125 MCG = 5,000 IU)] 125 mcg PO HS Famotidine [Pepcid] 40 mg PO DAILY HYDROcodone/APAP 7.5-325MG [[place] 7.5-325] 1 tab PO Q12HR PRN PRN Reason: Pain metFORMIN HCL [Glucophage] 500 mg PO DAILY Methylfolate 1,000mcg 1 tab PO BID Ketorolac [Toradol] 10 mg PO Q8H PRN PRN Reason: Pain Prochlorperazine [Compazine] 10 mg PO TID PRN PRN Reason: Nausea And Vomiting Albuterol Nebulized [Ventolin Nebulized] 2.5 mg INHALATION RT-QID PRN PRN Reason: Shortness Of Breath Discharge Medication List Citalopram Hydrobromide [CeleXA] 40 mg PO DAILY #1 tab 03/10/15 [Rx] Pregabalin [Lyrica] 150 mg PO BID 06/25/15 [History] lamoTRIgine 200 mg PO BID 07/30/16 [History] Magnesium Gluconate [Magonate] 500 mg PO HS 03/27/17 [History] Aspirin [Adult Low Dose Aspirin EC] 81 mg PO HS 11/26/17 [History] Enalapril [Vasotec] 10 mg PO BID 11/26/17 [History] Nitroglycerin Sl Tabs [Nitrostat] 0.4 mg SUBLINGUAL Q5M PRN 11/26/17 [History] DULoxetine HCL [Cymbalta] 60 mg PO DAILY 08/25/18 [History] Isosorbide Mononitrate ER [Imdur] 60 mg PO DAILY 09/08/18 [History] Carvedilol [Coreg] 25 mg PO BID 01/22/19 [History] Vitamin B Complex 1 cap PO HS 06/23/19 [History] Morphine Sulfate [Ms Contin] 15 mg PO DAILY PRN 08/11/19 [History] ARIPiprazole [Abilify] 2 mg PO DAILY 11/08/20 [History] Clopidogrel [Plavix] 75 mg PO HS 11/08/20 [History] Insulin Glargine,Hum.rec.anlog [Lantus Solostar Pen] 40 unit SQ DIRECTED 11/08/20 [History] ALPRAZolam [Xanax] 1 mg PO BID@0900,2100 07/31/21 [History] Albuterol Nebulized [Ventolin Nebulized] 2.5 mg INHALATION RT-QID PRN 07/31/21 [History] Atorvastatin [Lipitor] 40 mg PO DAILY 07/31/21 [History] Cholecalciferol (Vitamin D3) [Vitamin D3 (125 MCG = 5,000 IU)] 125 mcg PO HS 02/15 [History] Famotidine [Pepcid] 40 mg PO DAILY 07/31/21 [History] HYDROcodone/APAP 7.5-325MG [[place] 7.5-325] 1 tab PO Q12HR PRN 07/31/21 [History] Ketorolac [Toradol] 10 mg PO Q8H PRN 07/31/21 [History] Methylfolate 1,000mcg 1 tab PO BID 07/31/21 [History] Pantoprazole [Protonix] 40 mg PO DAILY 07/31/21 [History] Prochlorperazine [Compazine] 10 mg PO TID PRN 07/31/21 [History] metFORMIN HCL [Glucophage] 1,000 mg PO HS 07/31/21 [History] metFORMIN HCL [Glucophage] 500 mg PO DAILY 07/31/21 [History] amLODIPine [Norvasc] 5 mg PO DAILY tab 08/03/21 [Rx] hydroCHLOROthiazide [Hydrodiuril] 25 mg PO DAILY tab 08/03/21 [Rx] Follow up Appointment(s)/Referral(s): Dagmar Hennessy MD [Primary Care Provider] - 1-2 days Curt Jasso MD [STAFF PHYSICIAN] - 2 Weeks Patient Instructions/Handouts: *[facility] - (Anesthesia) Endoscopy Discharge Instructions, Gastritis (DC), Upper Endoscopy (DC)
== END 2021-08-03 18:50 | disposition home or self-care (01) ==
LOC: EC 12:06 → 6NMEDSUR 14:40 → INTOOBSV 08-03 07:23 → OBSVTOIN 08-03 07:23 → UNDODISIN 08-03 18:50
PROVIDERS: ADMIT Internal Medicine; ATTEND Internal Medicine
PROC: 0DB78ZX Excision of Stomach, Pylorus, Via Natural or Artificial Opening Endoscopic, Diagnostic (ICD-10-PCS; principal; 2021-08-03 12:00)
DX: R07.89 Other chest pain (principal); I16.1 Hypertensive emergency; R10.13 Epigastric pain; K29.50 Unspecified chronic gastritis without bleeding; K21.9 Gastro-esophageal reflux disease without esophagitis; I11.9 Hypertensive heart disease without heart failure; I25.10 Atherosclerotic heart disease of native coronary artery without angina pectoris; E78.5 Hyperlipidemia, unspecified; I45.10 Unspecified right bundle-branch block; E78.00 Pure hypercholesterolemia, unspecified; I69.951 Hemiplegia and hemiparesis following unspecified cerebrovascular disease affecting right dominant side; E11.9 Type 2 diabetes mellitus without complications; G25.81 Restless legs syndrome; G35 Multiple sclerosis; N83.209 Unspecified ovarian cyst, unspecified side; R61 Generalized hyperhidrosis; F32.A Depression, unspecified; F41.9 Anxiety disorder, unspecified; F40.240 Claustrophobia; G47.30 Sleep apnea, unspecified; M79.7 Fibromyalgia; D72.829 Elevated white blood cell count, unspecified; R16.2 Hepatomegaly with splenomegaly, not elsewhere classified; I25.2 Old myocardial infarction; F17.210 Nicotine dependence, cigarettes, uncomplicated; N20.0 Calculus of kidney; E66.9 Obesity, unspecified; Z68.32 Body mass index [BMI] 32.0-32.9, adult; Z20.822 Contact with and (suspected) exposure to COVID-19; Z79.84 Long term (current) use of oral hypoglycemic drugs; Z79.82 Long term (current) use of aspirin; Z79.4 Long term (current) use of insulin; Z79.02 Long term (current) use of antithrombotics/antiplatelets; Z79.899 Other long term (current) drug therapy; Z88.1 Allergy status to other antibiotic agents; Z88.2 Allergy status to sulfonamides; Z91.041 Radiographic dye allergy status; Z91.018 Allergy to other foods; Z85.41 Personal history of malignant neoplasm of cervix uteri; Z90.49 Acquired absence of other specified parts of digestive tract; Z90.710 Acquired absence of both cervix and uterus; Z95.5 Presence of coronary angioplasty implant and graft; Z98.891 History of uterine scar from previous surgery; Z98.51 Tubal ligation status; Z86.010 Personal history of colon polyps; Z98.890 Other specified postprocedural states; Z83.3 Family history of diabetes mellitus; Z82.5 Family history of asthma and other chronic lower respiratory diseases; Z80.0 Family history of malignant neoplasm of digestive organs; Z82.49 Family history of ischemic heart disease and other diseases of the circulatory system
CPT/HCPCS: 96376 ×2; 96366 ×3; 96365; 99291; 36415; 93005; 93306; 85379; 88305; 80061; 80053 ×4; 82150; 83690; 84484; 85025 ×4; 85610; 85730 ×3; 83721; 87635; 71046; 76700; 43239; G0378 ×4; J2001; J1650; J1644 ×3; J2704

== ENCOUNTER → 2022-01-10 | Outpatient (CLI) | payer OTHER ==
--- NOTE | 2022-01-11 10:45 | MM ---
Reason for exam: screening (asymptomatic). Last mammogram was performed 3 years and 2 months ago. History: Patient is postmenopausal and has history of endometrial cancer at age 37. Family history of breast cancer in paternal grandmother. Took hormonal contraceptives for 7 years. Physical Findings: A clinical breast exam by your physician is recommended on an annual basis and results should be correlated with mammographic findings. MG Screening Mammo w CAD Bilateral CC and MLO view(s) were taken. Prior study comparison: November 18, 2018, bilateral MG screening mammo w CAD. October 25, 2017, bilateral MG screening mammo w CAD. The breast tissue is heterogeneously dense. This may lower the sensitivity of mammography. There are benign appearing round calcifications bilaterally. There is no discrete abnormality. ASSESSMENT: Benign, BI-RAD 2 RECOMMENDATION: Routine screening mammogram of both breasts in 1 year.
== END | disposition home or self-care (01) ==
LOC: RADMAMWWP 12:41
PROVIDERS: ATTEND Family Medicine
DX: Z12.31 Encounter for screening mammogram for malignant neoplasm of breast (principal); Z78.0 Asymptomatic menopausal state; Z80.3 Family history of malignant neoplasm of breast
CPT/HCPCS: 77067

== ENCOUNTER 2022-01-15 13:04 | Observation (INO) | payer OTHER ==
[2022-01-15 13:16] LABS: Glucose,Whole Blood 223 mg/dL (75-99)
[2022-01-15] MEDS ORDERED: NALOXONE 0.4 MG/ML 1 ML VIAL IVP STA (13:39)
[2022-01-15] MEDS ORDERED: SODIUM CHLORIDE 0.9% 1,000 ML IV STA (13:40)
[2022-01-15] MEDS ORDERED: ASPIRIN 81 MG PO STA (13:42)
[2022-01-15] MEDS ORDERED: NITROGLYCERIN OINT 1 INCH/GM PACKET TOPICAL STA ×2 (13:42→18:33)
--- NOTE | 2022-01-15 13:54 | ED ---
General Adult HPI - General Chief complaint: Chest Pain Stated complaint: Chest Pain Time Seen by Provider: 01/15/22 13:32 Source: patient, EMS Mode of arrival: EMS - History of Present Illness Initial comments: This 51-year-old female presents with a complaint of some chest pain. She states that is more on the left side and pressure-like in nature. It is reproducible with palpation as well. She presents obtunded. Her apparently called EMS to bring her to the hospital. She is very poor historian. She will wake up with stimulation but follows directly back to sleep. Her blood sugar was good per nursing staff. She does take [place] regularly at home. Old records reviewed that she's been on MS Contin in the past as well. She states that she did not take too much of her controlled substances. She states that she takes pain medications for her MS and fibromyalgia. She also denies any head trauma. She does relate a history of having 4 previous strokes with right-sided weakness. She also relates a history of having 5 previous myocardial infarctions. She has some right leg swelling and states that this is chronic in nature. She denies any known fevers or chills. She denies any shortness of breath or difficulty in breathing but upon evaluation she appears to be having some degree of respiratory distress with a pulse oxygenation of 91%. She is placed on oxygen. No other identifiable complaints or modifying factors but once again history is somewhat limited due to patient's obtundation and no other family members are currently present. Upon recheck, is now present. He relates that the patient was complaining of some left-sided chest pain radiating down to her left arm. She also was obtunded and seemed short of breath so he called EMS. The patient is much more alert at this time and not obtunded and able to answer questions much better. She does relate that her last stress test was this past year. She relates that she has multiple stents. She is supposed to follow-up with her automotive general manager, Dr. Serrano, in two days to be evaluated for another heart catheterization. - Related Data Home Medications Medication Instructions Recorded Confirmed Pregabalin [Lyrica] 150 mg PO BID 06/25/15 01/15/22 lamoTRIgine 200 mg PO BID 07/30/16 01/15/22 Magnesium Gluconate [Magonate] 500 mg PO HS 03/27/17 01/15/22 Aspirin [Adult Low Dose Aspirin EC] 81 mg PO HS 11/26/17 01/15/22 Enalapril [Vasotec] 10 mg PO BID 11/26/17 01/15/22 Nitroglycerin Sl Tabs [Nitrostat] 0.4 mg SL Q5M PRN 11/26/17 01/15/22 DULoxetine HCL [Cymbalta] 60 mg PO DAILY 08/25/18 01/15/22 Isosorbide Mononitrate ER [Imdur] 60 mg PO DAILY 09/08/18 01/15/22 Carvedilol [Coreg] 25 mg PO BID 01/22/19 01/15/22 Vitamin B Complex 1 cap PO HS 06/23/19 01/15/22 Morphine Sulfate [Ms Contin] 15 mg PO DAILY PRN 08/11/19 01/15/22 ARIPiprazole [Abilify] 2 mg PO DAILY 11/08/20 01/15/22 Clopidogrel [Plavix] 75 mg PO HS 11/08/20 01/15/22 Insulin Glargine,Hum.rec.anlog 45 unit SQ BID 11/08/20 01/15/22 [Lantus Solostar Pen] ALPRAZolam [Xanax] 1 mg PO BID 07/31/21 01/15/22 Albuterol Nebulized [Ventolin 2.5 mg INHALATION RT-QID PRN 07/31/21 01/15/22 Nebulized] Atorvastatin [Lipitor] 40 mg PO DAILY 07/31/21 01/15/22 Cholecalciferol (Vitamin D3) 125 mcg PO HS 07/31/21 01/15/22 [Vitamin D3 (125 MCG = 5,000 IU)] HYDROcodone/APAP 7.5-325MG [[place] 1 tab PO HS 07/31/21 01/15/22 7.5-325] Ketorolac [Toradol] 10 mg PO Q8H PRN 07/31/21 01/15/22 Prochlorperazine [Compazine] 10 mg PO TID PRN 07/31/21 01/15/22 metFORMIN HCL [Glucophage] 1,000 mg PO HS 07/31/21 01/15/22 metFORMIN HCL [Glucophage] 500 mg PO DAILY 07/31/21 01/15/22 Dulaglutide [Trulicity] 1.5 mg SQ WE 01/15/22 01/15/22 Famotidine 20 mg PO DAILY 01/15/22 01/15/22 Methyl Folate 800mcg 1 tab PO BID 01/15/22 01/15/22 Promethazine [Phenergan] 25 mg PO Q6H PRN 01/15/22 01/15/22 predniSONE See Taper PO DAILY 01/15/22 01/15/22 Previous Rx's Medication Instructions Recorded Citalopram Hydrobromide [CeleXA] 40 mg PO DAILY #1 tab 03/10/15 amLODIPine [Norvasc] 5 mg PO DAILY tab 08/03/21 hydroCHLOROthiazide [Hydrodiuril] 25 mg PO DAILY tab 08/03/21 Allergies Allergy/AdvReac Type Severity Reaction Status Date / Time Fish Containing Products Allergy Anaphylaxis Verified 01/15/22 15:20 Iodinated Contrast Media Allergy Anaphylaxis Verified 01/15/22 15:20 [Iodinated Contrast Media - IV Dye] Sulfa (Sulfonamide Allergy Anaphylaxis Verified 01/15/22 15:20 Antibiotics) sulfamethoxazole Allergy Anaphylaxis Verified 01/15/22 15:20 [From Septra] tree nut [Nut] Allergy Anaphylaxis Verified 01/15/22 15:20 trimethoprim [From Junra] Allergy Anaphylaxis Verified 01/15/22 15:20 Review of Systems ROS Statement: Those systems with pertinent positive or pertinent negative responses have been documented in the HPI. ROS Other: All systems not noted in ROS Statement are negative. Past Medical History Past Medical History: Cancer, Chest Pain / Angina, CVA/TIA, Diabetes Mellitus, Fibromyalgia, Hyperlipidemia, Hypertension, Myocardial Infarction ([place]), Musculoskeletal Disorder, Neurologic Disorder, Sleep Apnea/CPAP/BIPAP Additional Past Medical History / Comment(s): See Dr Pompa's H&P. 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 - slight foot drag when tired.diabetes mellitus insulin-dependent, MS, questionable hypercoagulable disease, ovarian cyst, MIX5 has cpap, syncope Last Myocardial Infarction Date:: unk History of Any Multi-Drug Resistant Organisms: None Reported Past Surgical History: Section, Cholecystectomy, Heart Catheterization With Stent, Hysterectomy, Tubal Ligation, Uterine Ablation Additional Past Surgical History / Comment(s): vein stripping right leg, radio frequency ablation of right back-02/22/2015, four stents on 04/03/16 and one on march 05, ovaries removed, colonscopy- polyp removal Past Anesthesia/Blood Transfusion Reactions: Motion Sickness Additional Past Anesthesia/Blood Transfusion Reaction / Comment(s): mild claustrophobia Date of Last Stent Placement:: 04/03/16 Past Psychological History: Anxiety, Depression Smoking Status: Current every day smoker Past Alcohol Use History: None Reported Past Drug Use History: None Reported - Past Family History Father Family Medical History: Congestive Heart Failure (CHF), Coronary Artery Disease (CAD), Diabetes Mellitus Mother Family Medical History: Cancer, Hypertension, Respiratory Disorder Additional Family Medical History / Comment(s): emphysema, colon CA General Exam - General Exam Comments Initial Comments: GENERAL: The patient is well nourished and well hydrated. VITAL SIGNS: Heart rate, blood pressure, respiratory rate reviewed as recorded in nurse's notes. EYES: Pupils are round and reactive. Extraocular movements are intact. No conjunctival / lid redness or swelling. ENT: No external evidence of injury, swelling, or ecchymosis. Airway is patent. Throat is clear. NECK: Nontender. No swelling or evidence of injury. No subcutaneous emphysema. Trachea is midline. No thyroid mass. HEART: Regular rate and rhythm. Good peripheral pulses. LUNGS/CHEST: Breath sounds clear and equal bilaterally. No rales, rhonchi, or wheezes. No ecchymosis, subcutaneous emphysema, with mild tenderness noted upon palpation of the left chest. ABDOMEN: Abdomen soft without tenderness. No palpable masses or organomegaly. No peritoneal signs. No abdominal wall swelling or ecchymosis. EXTREMITIES: No extremity tenderness. Normal muscle tone and function. No thoracolumbar tenderness. There is some right leg swelling but patient states that this is chronic. NEUROLOGIC: Significant right-sided weakness as compared to the left. Cranial nerve exam reveals face is symmetrical, tongue is midline, speech is clear. The patient is obtunded. She will wake up and answer questions with stimulation but fall directly back to sleep. On recheck, she has no further obtundation. SKIN: No abrasions or ecchymosis is noted. No induration or masses noted. PSYCHIATRIC: Patient is obtunded but will wake up and answer questions at times. On recheck, she is alert and oriented and in no distress. Course Vital Signs 01/15/22 01/15/22 01/15/22 13:06 13:39 13:45 Temperature 97.6 F Pulse Rate 69 60 Respiratory 18 16 16 Rate Blood Pressure 137/75 126/77 O2 Sat by Pulse 92 L 94 L Oximetry Medical Decision Making - Medical Decision Making The patient was seen and examined. All diagnostics were reviewed. EKG shows a sinus rhythm at a rate of 69. There is evidence of right bundle-branch block with associated EKG changes. No abnormalities noted with the NM, QRS, and QTC intervals. Oxygen is administered. She is placed on air sampling and monitoring. She receives 0.2 mg of Narcan without relief. ABG does show a degree of hypoxia but there is no hypercarbia. The laboratory does show evidence of anemia as well as leukocytosis. Troponin is negative. The ammonia level is negative. The remainder labs are reviewed and do not show any overt significant abnormalities. The nasal swabs for Covid, flu, and RSV are negative. The chest x-ray shows the possibility of congestive heart versus pneumonia. Patient does receive aspirin, Nitropaste, and Lasix. She also receives a DuoNeb treatment and Zithromax and Rocephin. She is remarkably improved on recheck. Her mental status is back to normal. She states that her chest pain has resolved. She also is not having any further difficulty in breathing. It is felt as though her symptomatology may have been related to some hypoxia. It is felt as though she would require admission to the hospital for further evaluation and treatment. She does have a long cardiac history and it is felt as though she may have a degree of unstable angina. Case is discussed with Dr. Sanchez and he is agreeable with admission. Cardiology will be consulted as well. - Lab Data Result diagrams: 01/15/22 13:43 01/15/22 13:43 Lab Results 01/15/22 01/15/22 01/15/22 Range/Units 13:14 13:43 13:43 WBC 12.8 H (3.8-10.6) k/uL RBC 3.73 L (3.80-5.40) m/uL Hgb 8.9 L (11.4-16.0) gm/dL Hct 29.1 L (34.0-46.0) % MCV 78.0 L (80.0-100.0) fL MCH 23.8 L (25.0-35.0) pg MCHC 30.5 L (31.0-37.0) g/dL RDW 17.4 H (11.5-15.5) % Plt Count 329 (150-450) k/uL MPV 9.0 Neutrophils % 77 % Lymphocytes % 15 % Monocytes % 5 % Eosinophils % 2 % Basophils % 0 % Neutrophils # 9.8 H (1.3-7.7) k/uL Lymphocytes # 2.0 (1.0-4.8) k/uL Monocytes # 0.7 (0-1.0) k/uL Eosinophils # 0.2 (0-0.7) k/uL Basophils # 0.0 (0-0.2) k/uL Hypochromasia Marked Poikilocytosis Slight Anisocytosis Slight Microcytosis Slight PT 11.2 (9.0-12.0) sec INR 1.0 (<1.2) APTT 23.7 (22.0-30.0) sec D-Dimer 0.21 (<0.60) mg/L FEU Sample Site ABG pH (7.35-7.45) ABG pCO2 (35-45) mmHg ABG pO2 (83-108) mmHg ABG HCO3 (21-25) mmol/L ABG Total CO2 (19-24) mmol/L ABG O2 Saturation (94-97) % ABG Base Excess mmol/L Rock Test FiO2 % Sodium (137-145) mmol/L Potassium (3.5-5.1) mmol/L Chloride (98-107) mmol/L Carbon Dioxide (22-30) mmol/L Anion Gap mmol/L BUN (7-17) mg/dL Creatinine (0.52-1.04) mg/dL Est GFR (CKD-EPI)AfAm (>60 ml/min/1.73 sqM) Est GFR (CKD-EPI)NonAf (>60 ml/min/1.73 sqM) Glucose (74-99) mg/dL POC Glucose (mg/dL) 223 H (75-99) mg/dL POC Glu Gunnery/Ordnance Officer ID Painter, Lilo Plasma Lactic Acid Faheem (0.7-2.0) mmol/L Calcium (8.4-10.2) mg/dL Phosphorus (2.5-4.5) mg/dL Magnesium (1.6-2.3) mg/dL Total Bilirubin (0.2-1.3) mg/dL AST (14-36) U/L ALT (4-34) U/L Alkaline Phosphatase (38-126) U/L Ammonia (<30) umol/L Troponin I (0.000-0.034) ng/mL NT-Pro-B Natriuret Pep pg/mL Total Protein (6.3-8.2) g/dL Albumin (3.5-5.0) g/dL TSH (0.465-4.680) mIU/L Urine Color Urine Appearance (Clear) Urine pH (5.0-8.0) Ur Specific [place] (1.001-1.035) Urine Protein (Negative) Urine Glucose (UA) (Negative) Urine Ketones (Negative) Urine Blood (Negative) Urine Nitrite (Negative) Urine Bilirubin (Negative) Urine Urobilinogen (<2.0) mg/dL Ur Leukocyte Esterase (Negative) Urine RBC (0-5) /hpf Urine WBC (0-5) /hpf Ur Squamous Epith Cells (0-4) /hpf Urine Bacteria (None) /hpf Hyaline Casts (0-2) /lpf Urine Mucus (None) /hpf Influenza Type A (PCR) (Not Detectd) Influenza Type B (PCR) (Not Detectd) RSV (PCR) (Not Detectd) SARS-CoV-2 (PCR) (Not Detectd) 01/15/22 01/15/22 01/15/22 Range/Units 13:43 13:43 13:43 WBC (3.8-10.6) k/uL RBC (3.80-5.40) m/uL Hgb (11.4-16.0) gm/dL Hct (34.0-46.0) % MCV (80.0-100.0) fL MCH (25.0-35.0) pg MCHC (31.0-37.0) g/dL RDW (11.5-15.5) % Plt Count (150-450) k/uL MPV Neutrophils % % Lymphocytes % % Monocytes % % Eosinophils % % Basophils % % Neutrophils # (1.3-7.7) k/uL Lymphocytes # (1.0-4.8) k/uL Monocytes # (0-1.0) k/uL Eosinophils # (0-0.7) k/uL Basophils # (0-0.2) k/uL Hypochromasia Poikilocytosis Anisocytosis Microcytosis PT (9.0-12.0) sec INR (<1.2) APTT (22.0-30.0) sec D-Dimer (<0.60) mg/L FEU Sample Site ABG pH (7.35-7.45) ABG pCO2 (35-45) mmHg ABG pO2 (83-108) mmHg ABG HCO3 (21-25) mmol/L ABG Total CO2 (19-24) mmol/L ABG O2 Saturation (94-97) % ABG Base Excess mmol/L Rock Test FiO2 % Sodium 135 L (137-145) mmol/L Potassium 3.9 (3.5-5.1) mmol/L Chloride 106 (98-107) mmol/L Carbon Dioxide 22 (22-30) mmol/L Anion Gap 7 mmol/L BUN 25 H (7-17) mg/dL Creatinine 0.95 (0.52-1.04) mg/dL Est GFR (CKD-EPI)AfAm 81 (>60 ml/min/1.73 sqM) Est GFR (CKD-EPI)NonAf 71 (>60 ml/min/1.73 sqM) Glucose 185 H (74-99) mg/dL POC Glucose (mg/dL) (75-99) mg/dL POC Glu Gunnery/Ordnance Officer ID Plasma Lactic Acid Faheem (0.7-2.0) mmol/L Calcium 8.8 (8.4-10.2) mg/dL Phosphorus 3.0 (2.5-4.5) mg/dL Magnesium 1.5 L (1.6-2.3) mg/dL Total Bilirubin 0.3 (0.2-1.3) mg/dL AST 18 (14-36) U/L ALT 15 (4-34) U/L Alkaline Phosphatase 108 (38-126) U/L Ammonia (<30) umol/L Troponin I <0.012 (0.000-0.034) ng/mL NT-Pro-B Natriuret Pep 347 pg/mL Total Protein 5.5 L (6.3-8.2) g/dL Albumin 3.2 L (3.5-5.0) g/dL TSH 1.080 (0.465-4.680) mIU/L Urine Color Urine Appearance (Clear) Urine pH (5.0-8.0) Ur Specific [place] (1.001-1.035) Urine Protein (Negative) Urine Glucose (UA) (Negative) Urine Ketones (Negative) Urine Blood (Negative) Urine Nitrite (Negative) Urine Bilirubin (Negative) Urine Urobilinogen (<2.0) mg/dL Ur Leukocyte Esterase (Negative) Urine RBC (0-5) /hpf Urine WBC (0-5) /hpf Ur Squamous Epith Cells (0-4) /hpf Urine Bacteria (None) /hpf Hyaline Casts (0-2) /lpf Urine Mucus (None) /hpf Influenza Type A (PCR) (Not Detectd) Influenza Type B (PCR) (Not Detectd) RSV (PCR) (Not Detectd) SARS-CoV-2 (PCR) (Not Detectd) 01/15/22 01/15/22 01/15/22 Range/Units 13:47 15:54 15:54 WBC (3.8-10.6) k/uL RBC (3.80-5.40) m/uL Hgb (11.4-16.0) gm/dL Hct (34.0-46.0) % MCV (80.0-100.0) fL MCH (25.0-35.0) pg MCHC (31.0-37.0) g/dL RDW (11.5-15.5) % Plt Count (150-450) k/uL MPV Neutrophils % % Lymphocytes % % Monocytes % % Eosinophils % % Basophils % % Neutrophils # (1.3-7.7) k/uL Lymphocytes # (1.0-4.8) k/uL Monocytes # (0-1.0) k/uL Eosinophils # (0-0.7) k/uL Basophils # (0-0.2) k/uL Hypochromasia Poikilocytosis Anisocytosis Microcytosis PT (9.0-12.0) sec INR (<1.2) APTT (22.0-30.0) sec D-Dimer (<0.60) mg/L FEU Sample Site ABG pH (7.35-7.45) ABG pCO2 (35-45) mmHg ABG pO2 (83-108) mmHg ABG HCO3 (21-25) mmol/L ABG Total CO2 (19-24) mmol/L ABG O2 Saturation (94-97) % ABG Base Excess mmol/L Rock Test FiO2 % Sodium (137-145) mmol/L Potassium (3.5-5.1) mmol/L Chloride (98-107) mmol/L Carbon Dioxide (22-30) mmol/L Anion Gap mmol/L BUN (7-17) mg/dL Creatinine (0.52-1.04) mg/dL Est GFR (CKD-EPI)AfAm (>60 ml/min/1.73 sqM) Est GFR (CKD-EPI)NonAf (>60 ml/min/1.73 sqM) Glucose (74-99) mg/dL POC Glucose (mg/dL) (75-99) mg/dL POC Glu Gunnery/Ordnance Officer ID Plasma Lactic Acid Faheem 1.7 (0.7-2.0) mmol/L Calcium (8.4-10.2) mg/dL Phosphorus (2.5-4.5) mg/dL Magnesium (1.6-2.3) mg/dL Total Bilirubin (0.2-1.3) mg/dL AST (14-36) U/L ALT (4-34) U/L Alkaline Phosphatase (38-126) U/L Ammonia <9 (<30) umol/L Troponin I (0.000-0.034) ng/mL NT-Pro-B Natriuret Pep pg/mL Total Protein (6.3-8.2) g/dL Albumin (3.5-5.0) g/dL TSH (0.465-4.680) mIU/L Urine Color Urine Appearance (Clear) Urine pH (5.0-8.0) Ur Specific [place] (1.001-1.035) Urine Protein (Negative) Urine Glucose (UA) (Negative) Urine Ketones (Negative) Urine Blood (Negative) Urine Nitrite (Negative) Urine Bilirubin (Negative) Urine Urobilinogen (<2.0) mg/dL Ur Leukocyte Esterase (Negative) Urine RBC (0-5) /hpf Urine WBC (0-5) /hpf Ur Squamous Epith Cells (0-4) /hpf Urine Bacteria (None) /hpf Hyaline Casts (0-2) /lpf Urine Mucus (None) /hpf Influenza Type A (PCR) Not Detected (Not Detectd) Influenza Type B (PCR) Not Detected (Not Detectd) RSV (PCR) Not Detected (Not Detectd) SARS-CoV-2 (PCR) Not Detected (Not Detectd) 01/15/22 01/15/22 Range/Units 15:56 17:06 WBC (3.8-10.6) k/uL RBC (3.80-5.40) m/uL Hgb (11.4-16.0) gm/dL Hct (34.0-46.0) % MCV (80.0-100.0) fL MCH (25.0-35.0) pg MCHC (31.0-37.0) g/dL RDW (11.5-15.5) % Plt Count (150-450) k/uL MPV Neutrophils % % Lymphocytes % % Monocytes % % Eosinophils % % Basophils % % Neutrophils # (1.3-7.7) k/uL Lymphocytes # (1.0-4.8) k/uL Monocytes # (0-1.0) k/uL Eosinophils # (0-0.7) k/uL Basophils # (0-0.2) k/uL Hypochromasia Poikilocytosis Anisocytosis Microcytosis PT (9.0-12.0) sec INR (<1.2) APTT (22.0-30.0) sec D-Dimer (<0.60) mg/L FEU Sample Site lbrach ABG pH 7.38 (7.35-7.45) ABG pCO2 42 (35-45) mmHg ABG pO2 61 L (83-108) mmHg ABG HCO3 25 (21-25) mmol/L ABG Total CO2 26 H (19-24) mmol/L ABG O2 Saturation 91.9 L (94-97) % ABG Base Excess 0.0 mmol/L Rock Test Yes FiO2 36 % Sodium (137-145) mmol/L Potassium (3.5-5.1) mmol/L Chloride (98-107) mmol/L Carbon Dioxide (22-30) mmol/L Anion Gap mmol/L BUN (7-17) mg/dL Creatinine (0.52-1.04) mg/dL Est GFR (CKD-EPI)AfAm (>60 ml/min/1.73 sqM) Est GFR (CKD-EPI)NonAf (>60 ml/min/1.73 sqM) Glucose (74-99) mg/dL POC Glucose (mg/dL) (75-99) mg/dL POC Glu Gunnery/Ordnance Officer ID Plasma Lactic Acid Faheem (0.7-2.0) mmol/L Calcium (8.4-10.2) mg/dL Phosphorus (2.5-4.5) mg/dL Magnesium (1.6-2.3) mg/dL Total Bilirubin (0.2-1.3) mg/dL AST (14-36) U/L ALT (4-34) U/L Alkaline Phosphatase (38-126) U/L Ammonia (<30) umol/L Troponin I (0.000-0.034) ng/mL NT-Pro-B Natriuret Pep pg/mL Total Protein (6.3-8.2) g/dL Albumin (3.5-5.0) g/dL TSH (0.465-4.680) mIU/L Urine Color Yellow Urine Appearance Clear (Clear) Urine pH 6.0 (5.0-8.0) Ur Specific [place] 1.012 (1.001-1.035) Urine Protein 2+ H (Negative) Urine Glucose (UA) 3+ H (Negative) Urine Ketones Negative (Negative) Urine Blood Negative (Negative) Urine Nitrite Negative (Negative) Urine Bilirubin Negative (Negative) Urine Urobilinogen <2.0 (<2.0) mg/dL Ur Leukocyte Esterase Negative (Negative) Urine RBC 3 (0-5) /hpf Urine WBC 2 (0-5) /hpf Ur Squamous Epith Cells <1 (0-4) /hpf Urine Bacteria Rare H (None) /hpf Hyaline Casts 1 (0-2) /lpf Urine Mucus Rare H (None) /hpf Influenza Type A (PCR) (Not Detectd) Influenza Type B (PCR) (Not Detectd) RSV (PCR) (Not Detectd) SARS-CoV-2 (PCR) (Not Detectd) Disposition Clinical Impression: Anemia, Leukocytosis, Hypoxia, Pneumonia, Altered mental status, Chest pain, Unstable angina Disposition: ADMITTED IP TO THIS HOSP Condition: Fair Is patient prescribed a controlled substance at d/c from ED?: No Time of Disposition: 18:52 Decision Date: 01/15/22 Decision Time: 18:53
[2022-01-15 14:00] LABS: Anisocytosis Slight; Basophils % (A) 0 %; Eosinophils # (A) 0.2 k/uL (0-0.7); Eosinophils % (A) 2 %; HCT 29.1 % (34.0-46.0); HGB 8.9 gm/dL (11.4-16.0); Hypochromasia Marked; Lymphocytes % (A) 15 %; MCH 23.8 pg (25.0-35.0); MCHC 30.5 g/dL (31.0-37.0); Microcytosis Slight; Monocytes # (A) 0.7 k/uL (0-1.0); Monocytes % (A) 5 %; Neutrophils # (A) 9.8 k/uL (1.3-7.7); Neutrophils % (A) 77 %; Platelet Count 329 k/uL (150-450); Poikilocytosis Slight; RBC 3.73 m/uL (3.80-5.40); RDW 17.4 % (11.5-15.5); WBC 12.8 k/uL (3.8-10.6)
[2022-01-15 14:12] LABS: Albumin 3.2 g/dL (3.5-5.0); Calcium 8.8 mg/dL (8.4-10.2); Magnesium 1.5 mg/dL (1.6-2.3); Potassium 3.9 mmol/L (3.5-5.1); Total Bilirubin 0.3 mg/dL (0.2-1.3); Total Protein 5.5 g/dL (6.3-8.2)
[2022-01-15 14:27] LABS: Partial Thromboplastin Time 23.7 sec (22.0-30.0); Prothrombin Time 11.2 sec (9.0-12.0)
--- NOTE | 2022-01-15 14:55 | CT ---
EXAMINATION TYPE: CT brain wo con DATE OF EXAM: 01/15/2022 COMPARISON: CT dated 02/15/2021 HISTORY: Altered mental status. CT DLP: 1163.4 mGycm Automated exposure control for dose reduction was used. TECHNIQUE: CT scan of the brain is performed without IV contrast administration. FINDINGS: Persistent left basal ganglia chronic infarct with left estevez radiata and left centrum semiovale whi te matter hypodensity, grossly stable. Exvacuodilatation of the left lateral ventricle, also stable. No acute intracranial hemorrhage. No gross acute cortical infarct. No midline shift, herniation or ve ntricular obstruction. Unremarkable basal cisterns, sella and CP angles. No gross space-occupying lesion, vasogenic edema or mass effect. Unremarkable orbits. Mucosal thickening of the right posterior ethmoid air cells. Hypopneumatized rig ht mastoid air cells. No aggressive bone lesion. IMPRESSION: No acute intracranial hemorrhage or gross acute cortical infarct. No gross space-occupying lesion by this unenhanced CT scan. Stable chronic findings as described above.
--- NOTE | 2022-01-15 15:15 | XR ---
EXAMINATION TYPE: XR chest 2V DATE OF EXAM: 01/15/2022 COMPARISON: 07/31/2021 HISTORY: 51-year-old female with weakness TECHNIQUE: AP and lateral views FINDINGS: Heart borderline enlarged. Aorta within normal limits. Increased interstitial density. No pleural eff usion. IMPRESSION: 1. Borderline cardiomegaly and increased diffuse interstitial densities. Correlate for possible CHF w ith developing pulmonary vascular congestion. 2. Clinical correlation will be needed to exclude developing patchy infiltrates. Follow-up can be con sidered.
[2022-01-15 16:10] LABS: Appearance,Urine Clear (Clear); Bacteria,Urine Rare /hpf; Bilirubin,Urine Negative (Negative); Blood,Urine Negative (Negative); Color,Urine Yellow; Glucose,Urine (UA) 3+ (Negative); Hyaline Casts,Urine 1 /lpf (0-2); Ketones,Urine Negative (Negative); Leukocyte Esterase,Urine Negative (Negative); Mucus,Urine Rare /hpf; Nitrite,Urine Negative (Negative); Protein,Urine 2+ (Negative); RBC,Urine 3 /hpf (0-5); Specific Gravity,Urine 1.012 (1.001-1.035); Squamous Epithelial Cell,Urine <1 /hpf (0-4); Urobilinogen,Urine <2.0 mg/dL (<2.0); WBC,Urine 2 /hpf (0-5)
[2022-01-15 17:09] LABS: ABG HCO3 25 mmol/L (21-25); ABG Oxygen Saturation 91.9 % (94-97); ABG PCO2 42 mmHg (35-45); ABG PH 7.38 (7.35-7.45); ABG PO2 61 mmHg (83-108); ABG TCO2 26 mmol/L (19-24); Allen Test Performed? Yes
[2022-01-15] MEDS ORDERED: IPRATROPIUM-ALBUTEROL 3 ML NEB INHALATION STA (18:13)
[2022-01-15] MEDS ORDERED: FUROSEMIDE 10 MG/ML 4 ML VIAL IV STA (18:33)
[2022-01-15] MEDS ORDERED: AZITHROMYCIN 500 MG in SODIUM CHLORIDE 0.9% 250 ML IVPB STA (18:37)
[2022-01-15] MEDS ORDERED: ONDANSETRON 4 MG/2 ML VIAL IVP PRN (20:54)
[2022-01-15] MEDS ORDERED: ACETAMINOPHEN TAB 325 MG TAB PO PRN (20:54)
[2022-01-15] MEDS ORDERED: NALOXONE 0.4 MG/ML 1 ML VIAL IV PRN (20:54)
[2022-01-15] MEDS ORDERED: MORPHINE SULFATE ER 15 MG TABLET PO PRN (21:00)
[2022-01-15] MEDS ORDERED: INSULIN DETEMIR (LEVEMIR) 100 UNIT/ML SYR SQ SCH (21:00)
[2022-01-15] MEDS ORDERED: PROCHLORPERAZINE 10 MG TAB PO PRN (21:00)
[2022-01-15] MEDS ORDERED: ETODOLAC 300 MG CAPSULE PO PRN (21:00)
[2022-01-15] MEDS ORDERED: PROMETHAZINE 25 MG TAB PO PRN (21:00)
[2022-01-15] MEDS ORDERED: NON FORMULARY DRUG (Vitamin B Complex [Vitamin B Complex] 1 EACH Capsule) PO SCH (21:00)
[2022-01-15] MEDS: ALPRAZolam 1 MG TAB PO SCH (22:14)
[2022-01-15] MEDS: HYDROcodone/APAP 7.5-325MG 1 EACH TAB PO SCH (22:15)
[2022-01-15] MEDS: CLOPIDOGREL 75 MG TAB PO SCH (22:27)
[2022-01-15] MEDS: carvediloL 12.5 MG TAB PO SCH (22:27)
[2022-01-15] MEDS: lisinopriL 20 MG TAB PO SCH (22:28)
[2022-01-15] MEDS: metFORMIN 500 MG TAB PO SCH (22:28)
[2022-01-15] MEDS: CHOLECALCIFEROL 125 MCG (5000 IU) TABLET PO SCH (22:28)
[2022-01-15] MEDS: NITROGLYCERIN OINT 1 INCH/GM PACKET TOPICAL SCH (22:29)
[2022-01-15] MEDS: MAGNESIUM OXIDE 400 MG TAB PO SCH (22:29)
[2022-01-15] MEDS: lamoTRIgine 100 MG TAB PO SCH (22:29)
[2022-01-15] MEDS: METHYL FOLATE PO SCH (22:30)
[2022-01-15] MEDS: methylPREDNISolone SOD SUCCI 125 MG/2 ML VIAL IV SCH (22:30)
[2022-01-15] MEDS: PREGABALIN 75 MG CAP PO SCH (23:30)
[2022-01-16] MEDS: IPRATROPIUM-ALBUTEROL 3 ML NEB INHALATION SCH ×6 (00:13→20:56)
[2022-01-16] MEDS: NITROGLYCERIN OINT 1 INCH/GM PACKET TOPICAL SCH ×4 (03:05→21:18)
[2022-01-16] MEDS ORDERED: DOBUTamine DRIP for NUC MED 500 MG in DEXTROSE/WATER 1 250ML.BAG IV PRN (07:15)
--- NOTE | 2022-01-16 07:40 | P.CRDCN ---
History of Present Illness History of present illness: 50-year-old lady with history of coronary artery disease status post prior multivessel angioplasty hypertension diabetes dyslipidemia and smoking comes to Hospital complaining of chest pain. She describes it as precordial chest discomfort sharp mild intensity unrelated to exertion and not associated with diaphoresis. It is not pleuritic. It is reproducible. Seems musculoskeletal. At the time of my evaluation she appears comfortable at rest and does not seem to be in any distress. She has normal LV systolic function. Her last stress test was in June 2021 that was negative for ischemia. An echocardiogram in the past revealed an ejection fraction of 60%. Cardiac catheterization in 2018 revealed a patent stent within the LAD diagonal RCA with mild nonobstructive disease. Cardiac enzymes have been negative. In EKG shows sinus rhythm with left right bundle branch block and secondary ST-T wave changes. Given patient's atypical chest pain I'm going to schedule her for a dobutamine stress echo and an echocardiogram if these are negative she can be discharged home and keep her follow up in my office if they're abnormal I will proceed with a cardiac catheterization Constitutional: Denies chills. Denies fever. Eyes: Denies blurred vision. Denies pain. Ears, nose, mouth and throat: Denies headache. Denies sore throat. Cardiovascular: Significant for chest pain. Denies shortness of breath. Respiratory: Denies cough. Gastrointestinal: Denies abdominal pain. Denies diarrhea. Denies nausea. Denies vomiting. Musculoskeletal: Denies myalgias. Integumentary: Denies pruritus. Denies rash. Neurological: Denies numbness. Denies weakness. Psychiatric: Denies anxiety. Denies depression. Endocrine: Denies fatigue. Denies weight change. Genitourinary: Denies burning, hematuria, frequency of urination. Hematological: No anemia or excess bleeding. General: The patient is awake and alert, in no distress, and does not appear acutely ill. Skin: Skin is warm and dry and no rashes or lesions are noted. Eye: Pupils are equal, round and reactive to light, extra-ocular movements are intact; there is normal conjunctiva bilaterally. Ears, nose, mouth and throat: There are moist mucous membranes and no oral lesions. Neck: The neck is supple, there is no tenderness or JVD. Cardiovascular: There is a regular rate and rhythm. No murmur, rub or gallop is appreciated. Respiratory: Lungs are clear to auscultation, respirations are non-labored, breath sounds are equal. Gastrointestinal: Soft, non-distended, non-tender abdomen without masses or organomegaly noted. There is no rebound or guarding present. Bowel sounds are unremarkable. Back: There is no tenderness to palpation in the midline. There is no obvious deformity. Musculoskeletal: Normal ROM, no tenderness, There is no pedal edema. There is no calf tenderness or swelling. Extremities: No edema. Vascular: Femoral pulse is normal. Posterior tibial pulses are normal .Dorsalis pedis is palpable. Neurological: CN II-XII intact. There are no obvious motor or sensory deficits. Speech is normal. Psychiatric: Cooperative, appropriate mood & affect, normal judgment. Labs: Troponins are negative hemoglobin is low at 8.9 platelet count is 329 creatinine is normal at 0.95 EKG is as described above BNP is normal TSH is normal Assessment and plan: Atypical chest pain Known CAD status post prior angioplasty I will obtain a 2-D echo and a dobutamine stress echo if these are benign she can be discharged home Past Medical History Past Medical History: Cancer, Chest Pain / Angina, CVA/TIA, Diabetes Mellitus, Fibromyalgia, Hyperlipidemia, Hypertension, Myocardial Infarction (CT), Musculoskeletal Disorder, Neurologic Disorder, Sleep Apnea/CPAP/BIPAP Additional Past Medical History / Comment(s): See Dr Pompa's H&P. 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 - slight foot drag when tired.diabetes mellitus insulin-dependent, MS, questionable hypercoagulable disease, ovarian cyst, MIX5 has cpap, syncope Last Myocardial Infarction Date:: unk History of Any Multi-Drug Resistant Organisms: None Reported Past Surgical History: Section, Cholecystectomy, Heart Catheterization With Stent, Hysterectomy, Tubal Ligation, Uterine Ablation Additional Past Surgical History / Comment(s): vein stripping right leg, radio frequency ablation of right back-02/22/2015, four stents on 04/03/16 and one on march 05, ovaries removed, colonscopy- polyp removal Past Anesthesia/Blood Transfusion Reactions: Motion Sickness Additional Past Anesthesia/Blood Transfusion Reaction / Comment(s): mild claustrophobia Date of Last Stent Placement:: 04/03/16 Past Psychological History: Anxiety, Depression Smoking Status: Current every day smoker Past Alcohol Use History: None Reported Past Drug Use History: None Reported - Past Family History Father Family Medical History: Congestive Heart Failure (CHF), Coronary Artery Disease (CAD), Diabetes Mellitus Mother Family Medical History: Cancer, Hypertension, Respiratory Disorder Additional Family Medical History / Comment(s): emphysema, colon CA Medications and Allergies Home Medications Medication Instructions Recorded Confirmed Type Citalopram Hydrobromide [CeleXA] 40 mg PO DAILY #1 tab 03/10/15 01/15/22 Rx Pregabalin [Lyrica] 150 mg PO BID 06/25/15 01/15/22 History lamoTRIgine 200 mg PO BID 07/30/16 01/15/22 History Magnesium Gluconate [Magonate] 500 mg PO HS 03/27/17 01/15/22 History Aspirin [Adult Low Dose Aspirin EC] 81 mg PO HS 11/26/17 01/15/22 History Enalapril [Vasotec] 10 mg PO BID 11/26/17 01/15/22 History Nitroglycerin Sl Tabs [Nitrostat] 0.4 mg SL Q5M PRN 11/26/17 01/15/22 History DULoxetine HCL [Cymbalta] 60 mg PO DAILY 08/25/18 01/15/22 History Isosorbide Mononitrate ER [Imdur] 60 mg PO DAILY 09/08/18 01/15/22 History Carvedilol [Coreg] 25 mg PO BID 01/22/19 01/15/22 History Vitamin B Complex 1 cap PO HS 06/23/19 01/15/22 History Morphine Sulfate [Ms Contin] 15 mg PO DAILY PRN 08/11/19 01/15/22 History ARIPiprazole [Abilify] 2 mg PO DAILY 11/08/20 01/15/22 History Clopidogrel [Plavix] 75 mg PO HS 11/08/20 01/15/22 History Insulin Glargine,Hum.rec.anlog 45 unit SQ BID 11/08/20 01/15/22 History [Lantus Solostar Pen] ALPRAZolam [Xanax] 1 mg PO BID 07/31/21 01/15/22 History Albuterol Nebulized [Ventolin 2.5 mg INHALATION RT-QID PRN 07/31/21 01/15/22 History Nebulized] Atorvastatin [Lipitor] 40 mg PO DAILY 07/31/21 01/15/22 History Cholecalciferol (Vitamin D3) 125 mcg PO HS 07/31/21 01/15/22 History [Vitamin D3 (125 MCG = 5,000 IU)] HYDROcodone/APAP 7.5-325MG [[place] 1 tab PO HS 07/31/21 01/15/22 History 7.5-325] Ketorolac [Toradol] 10 mg PO Q8H PRN 07/31/21 01/15/22 History Prochlorperazine [Compazine] 10 mg PO TID PRN 07/31/21 01/15/22 History metFORMIN HCL [Glucophage] 1,000 mg PO HS 07/31/21 01/15/22 History metFORMIN HCL [Glucophage] 500 mg PO DAILY 07/31/21 01/15/22 History amLODIPine [Norvasc] 5 mg PO DAILY tab 08/03/21 01/15/22 Rx hydroCHLOROthiazide [Hydrodiuril] 25 mg PO DAILY tab 08/03/21 01/15/22 Rx Dulaglutide [Trulicity] 1.5 mg SQ WE 01/15/22 01/15/22 History Famotidine 20 mg PO DAILY 01/15/22 01/15/22 History Methyl Folate 800mcg 1 tab PO BID 01/15/22 01/15/22 History Promethazine [Phenergan] 25 mg PO Q6H PRN 01/15/22 01/15/22 History predniSONE See Taper PO DAILY 01/15/22 01/15/22 History Allergies Allergy/AdvReac Type Severity Reaction Status Date / Time Fish Containing Products Allergy Anaphylaxis Verified 01/15/22 15:20 Iodinated Contrast Media Allergy Anaphylaxis Verified 01/15/22 15:20 [Iodinated Contrast Media - IV Dye] Sulfa (Sulfonamide Allergy Anaphylaxis Verified 01/15/22 15:20 Antibiotics) sulfamethoxazole Allergy Anaphylaxis Verified 01/15/22 15:20 [From Junra] tree nut [Nut] Allergy Anaphylaxis Verified 01/15/22 15:20 trimethoprim [From Junra] Allergy Anaphylaxis Verified 01/15/22 15:20 Physical Exam Vitals: Vital Signs Temp Pulse Resp BP Pulse Ox 01/16/22 05:00 97.9 F 79 15 165/76 94 L 01/16/22 04:00 76 16 172/85 93 L 01/16/22 03:00 97.7 F 73 18 153/83 93 L 01/16/22 00:22 72 01/16/22 00:14 71 01/16/22 00:00 77 18 156/78 01/15/22 22:00 69 20 141/77 95 01/15/22 20:11 80 01/15/22 20:02 76 01/15/22 19:00 73 18 115/60 90 L 01/15/22 15:00 73 26 H 138/66 01/15/22 13:45 60 16 126/77 94 L 01/15/22 13:39 16 01/15/22 13:06 97.6 F 69 18 137/75 92 L Intake and Output 01/15/22 01/16/22 01/16/22 22:59 06:59 14:59 Output Total 2300 Balance -2300 Output: Urine 2300 Other: # Voids 3 Results 01/15/22 13:43 01/15/22 13:43 Cardiac Enzymes 01/15/22 01/15/22 01/15/22 Range/Units 13:43 13:43 21:46 AST 18 (14-36) U/L Troponin I <0.012 <0.012 (0.000-0.034) ng/mL 01/15/22 Range/Units 23:48 AST (14-36) U/L Troponin I <0.012 (0.000-0.034) ng/mL Coagulation 01/15/22 Range/Units 13:43 PT 11.2 (9.0-12.0) sec APTT 23.7 (22.0-30.0) sec CBC 01/15/22 Range/Units 13:43 WBC 12.8 H (3.8-10.6) k/uL RBC 3.73 L (3.80-5.40) m/uL Hgb 8.9 L (11.4-16.0) gm/dL Hct 29.1 L (34.0-46.0) % Plt Count 329 (150-450) k/uL Comprehensive Metabolic Panel 01/15/22 Range/Units 13:43 Sodium 135 L (137-145) mmol/L Potassium 3.9 (3.5-5.1) mmol/L Chloride 106 (98-107) mmol/L Carbon Dioxide 22 (22-30) mmol/L BUN 25 H (7-17) mg/dL Creatinine 0.95 (0.52-1.04) mg/dL Glucose 185 H (74-99) mg/dL Calcium 8.8 (8.4-10.2) mg/dL AST 18 (14-36) U/L ALT 15 (4-34) U/L Alkaline Phosphatase 108 (38-126) U/L Total Protein 5.5 L (6.3-8.2) g/dL Albumin 3.2 L (3.5-5.0) g/dL Current Medications Generic Name Dose Route Start Last Admin Trade Name Freq PRN Reason Stop Dose Admin Acetaminophen 650 mg 01/15/22 20:54 Acetaminophen Tab 325 Mg Tab PO Q6HR PRN Mild Pain or Fever > 100.5 Hydrocodone Bitart/Acetaminophen 1 each 01/15/22 21:00 01/15/22 22:15 Hydrocodone/Apap 7.5-325mg 1 Each Tab PO Not Given HS SARAHY Albuterol/Ipratropium 3 ml 01/16/22 00:00 01/16/22 03:14 Ipratropium-Albuterol 3 Ml Neb INHALATION Not Given RT-Q4H SARAHY Alprazolam 2 mg 01/15/22 21:00 01/15/22 22:14 Alprazolam 1 Mg Tab PO Not Given BID SARAHY Amlodipine Besylate 5 mg 01/16/22 09:00 Amlodipine 5 Mg Tab PO DAILY SARAHY Aripiprazole 2 mg 01/16/22 09:00 Aripiprazole 2 Mg Tab PO DAILY SARAHY Aspirin 325 mg 01/16/22 09:00 Aspirin 325 Mg Tab PO DAILY SARAHY Atorvastatin Calcium 40 mg 01/16/22 09:00 Atorvastatin 40 Mg Tab PO DAILY SARAHY Carvedilol 25 mg 01/15/22 21:00 01/15/22 22:27 Carvedilol 12.5 Mg Tab PO 25 mg BID SARAHY Administration Cholecalciferol 125 mcg 01/15/22 21:00 01/15/22 22:28 Cholecalciferol 125 Mcg (5000 Iu) Tablet PO 125 mcg HS SARAHY Administration Citalopram Hydrobromide 40 mg 01/16/22 09:00 Citalopram Hydrobromide 20 Mg Tab PO DAILY [facility] Clopidogrel Bisulfate 75 mg 01/15/22 21:00 01/15/22 22:27 Clopidogrel 75 Mg Tab PO 75 mg HS SARAHY Administration Duloxetine HCl 60 mg 01/16/22 09:00 Duloxetine Hcl 60 Mg Capsule.Dr PO DAILY [facility] Enoxaparin Sodium 40 mg 01/16/22 09:00 Enoxaparin 40 Mg/0.4 Ml Syringe SQ DAILY [facility] Etodolac 300 mg 01/15/22 21:00 Etodolac 300 Mg Capsule PO Q8H PRN Pain Hydrochlorothiazide 25 mg 01/16/22 09:00 Hydrochlorothiazide 25 Mg Tab PO DAILY [facility] Ceftriaxone Sodium 1,000 mg/ 50 mls @ 100 mls/hr 01/16/22 09:00 Sodium Chloride IVPB DAILY [facility] Protocol Azithromycin 500 mg/ Sodium 250 mls @ 250 mls/hr 01/16/22 09:00 Chloride IVPB 01/19/22 09:01 DAILY [facility] Protocol Dobutamine HCl/Dextrose 500 mg 250 mls @ 29.801 mls/hr 01/16/22 07:15 / IV Solution IV 01/16/22 20:00 .Q8H24M PRN Per Protocol Protocol 10 MCG/KG/MIN Insulin Aspart 0 unit 01/16/22 07:30 Insulin Aspart (Novolog) 100 Unit/Ml Vial SQ ACHS [facility] Protocol Insulin Detemir 45 unit 01/15/22 21:53 Insulin Detemir (Levemir) 100 Unit/Ml Syr SQ BID [facility] Lamotrigine 200 mg 01/15/22 21:00 01/15/22 22:29 Lamotrigine 100 Mg Tab PO 200 mg BID [facility] Administration Lisinopril 40 mg 01/15/22 21:00 01/15/22 22:28 Lisinopril 20 Mg Tab PO 40 mg DAILY [facility] Administration Magnesium Oxide 400 mg 01/15/22 21:00 01/15/22 22:29 Magnesium Oxide 400 Mg Tab PO 400 mg HS [facility] Administration Metformin HCl 500 mg 01/16/22 09:00 Metformin 500 Mg Tab PO DAILY [facility] Metformin HCl 1,000 mg 01/15/22 21:00 01/15/22 22:28 Metformin 500 Mg Tab PO 1,000 mg HS [facility] Administration Methylprednisolone Sodium Succinate 60 mg 01/15/22 22:00 01/15/22 22:30 Methylprednisolone Sod Succi 125 Mg/2 Ml Vial IV 60 mg QID SARAHY Administration Morphine Sulfate 15 mg 01/15/22 21:00 Morphine Sulfate Er 15 Mg Tablet PO DAILY PRN Severe Pain Protocol Naloxone HCl 0.2 mg 01/15/22 20:54 Naloxone 0.4 Mg/Ml 1 Ml Vial IV Q2M PRN Opioid Reversal Nitroglycerin 1 inch 01/15/22 21:00 01/16/22 03:05 Nitroglycerin Oint 1 Inch/Gm Packet TOPICAL 1 inch Q6H SARAHY Administration Non-Formulary Medication 1.5 mg 01/17/22 21:00 Dulaglutide [Trulicity] SQ WE [facility] Non-Formulary Medication 1 tab 01/15/22 21:00 01/15/22 22:30 Methyl Folate 800mcg PO Not Given BID [facility] Ondansetron HCl 4 mg 01/15/22 20:54 Ondansetron 4 Mg/2 Ml Vial IVP Q8HR PRN Nausea And Vomiting Pantoprazole Sodium 40 mg 01/16/22 09:00 Pantoprazole 40 Mg/10 Ml Vial IV DAILY [facility] Pregabalin 150 mg 01/15/22 21:00 01/15/22 23:30 Pregabalin 75 Mg Cap PO 150 mg BID [facility] Administration Prochlorperazine Maleate 10 mg 01/15/22 21:00 Prochlorperazine 10 Mg Tab PO TID PRN Nausea And Vomiting Promethazine HCl 25 mg 01/15/22 21:00 Promethazine 25 Mg Tab PO Q6H PRN Nausea Intake and Output 01/15/22 01/16/22 01/16/22 22:59 06:59 14:59 Output Total 2300 Balance -2300 Output: Urine 2300 Other: # Voids 3 01/15/22 13:43 01/15/22 13:43
[2022-01-16 08:07] LABS: Glucose,Whole Blood 128 mg/dL (75-99)
[2022-01-16] MEDS: INSULIN ASPART (NovoLOG) 100 UNIT/ML VIAL SQ SCH ×4 (08:19→20:45)
[2022-01-16] MEDS: metFORMIN 500 MG TAB PO SCH ×2 (08:55→20:47)
[2022-01-16] MEDS: PANTOPRAZOLE 40 MG/10 ML VIAL IV SCH (08:55)
[2022-01-16] MEDS: ALPRAZolam 1 MG TAB PO SCH ×2 (08:55→20:46)
[2022-01-16] MEDS: carvediloL 12.5 MG TAB PO SCH ×2 (08:55→20:47)
[2022-01-16] MEDS: hydroCHLOROthiazide 25 MG TAB PO SCH ×2 (08:55→08:56)
[2022-01-16] MEDS: DULoxetine HCL 60 MG CAPSULE.DR PO SCH (08:55)
[2022-01-16] MEDS: ATORVASTATIN 40 MG TAB PO SCH (08:56)
[2022-01-16] MEDS: amLODIPine 5 MG TAB PO SCH (08:56)
[2022-01-16] MEDS: lamoTRIgine 100 MG TAB PO SCH ×2 (08:56→20:47)
[2022-01-16] MEDS: ARIPiprazole 2 MG TAB PO SCH (08:56)
[2022-01-16] MEDS: ENOXAPARIN 40 MG/0.4 ML SYRINGE SQ SCH (08:56)
[2022-01-16] MEDS: CITALOPRAM HYDROBROMIDE 20 MG TAB PO SCH (08:56)
[2022-01-16] MEDS: PREGABALIN 75 MG CAP PO SCH ×2 (08:56→20:47)
[2022-01-16] MEDS: lisinopriL 20 MG TAB PO SCH (08:56)
[2022-01-16] MEDS: methylPREDNISolone SOD SUCCI 125 MG/2 ML VIAL IV SCH ×4 (08:57→21:18)
[2022-01-16] MEDS: METHYL FOLATE PO SCH ×2 (08:57→21:18)
[2022-01-16] MEDS: INSULIN DETEMIR (LEVEMIR) 100 UNIT/ML SYR SQ SCH ×2 (08:57→20:45)
[2022-01-16] MEDS ORDERED: AZITHROMYCIN 500 MG in SODIUM CHLORIDE 0.9% 250 ML IVPB SCH (09:00)
[2022-01-16] MEDS ORDERED: ASPIRIN 325 MG TAB PO SCH (09:00)
--- NOTE | 2022-01-16 10:58 | ECHOF ---
Referral Reason:cp, sob MEASUREMENTS -------- HEIGHT: 167.6 cm WEIGHT: 99.3 kg BP: 165/76 RVIDd: 3.4 cm (< 3.3) IVSd: 1.6 cm (0.6 - 1.1) LVIDd: 5.6 cm (3.9 - 5.3) LVPWd: 1.6 cm (0.6 - 1.1) IVSs: 2.5 cm LVIDs: 2.5 cm LVPWs: 2.0 cm LA Diam: 3.9 cm (2.7 - 3.8) LAESV Index (A-L): 30.35 ml/m Ao Diam: 3.7 cm (2.0 - 3.7) AV Cusp: 2.7 cm (1.5 - 2.6) MV EXCURSION: 18.742 mm (> 18.000) MV EF SLOPE: 78 mm/s (70 - 150) EPSS: 1.0 cm MV E Cali: 0.93 m/s MV DecT: 232 ms MV A Cali: 1.17 m/s MV E/A Ratio: 0.79 FINDINGS -------- Sinus rhythm. This was a technically adequate study. The left ventricular size is normal. There is moderate concentric left ventricular hypertrophy. O verall left ventricular systolic function is normal with, an EF between 60 - 65 %. The right ventricle is mildly enlarged. LA is midly dilated 29-33ml/m2. The right atrium is normal in size. Interatrial and interventricular septum intact. The aortic valve is trileaflet, and appears structurally normal. No aortic stenosis or regurgitation. There is trace mitral regurgitation. The tricuspid valve appears structurally normal. Unable to estimate RVSP due to inadequate TR jet s pectral doppler profile. Trace/mild (physiologic) pulmonic regurgitation. The aortic root size is normal. Normal inferior vena cava with normal inspiratory collapse consistent with estimated right atrial pre ssure of 5 mmHg. There is no pericardial effusion. CONCLUSIONS -------- 1. The left ventricular size is normal. 2. There is moderate concentric left ventricular hypertrophy. 3. Overall left ventricular systolic function is normal with, an EF between 60 - 65 %. 4. The right ventricle is mildly enlarged. 5. LA is midly dilated 29-33ml/m2. 6. There is trace mitral regurgitation. 7. Trace/mild (physiologic) pulmonic regurgitation. 8. There is no pericardial effusion. CORRECTIONAL FACILITY PSYCHIATRIST: Reema Crow RDCS
[2022-01-16 11:52] LABS: Anisocytosis Slight; Basophils % (A) 0 %; Eosinophils # (A) 0.1 k/uL (0-0.7); Eosinophils % (A) 0 %; HCT 32.7 % (34.0-46.0); HGB 8.9 gm/dL (11.4-16.0); Hypochromasia Marked; Lymphocytes # (A) 0.9 k/uL (1.0-4.8); Lymphocytes % (A) 4 %; MCH 21.6 pg (25.0-35.0); MCHC 27.3 g/dL (31.0-37.0); MCV 79.3 fL (80.0-100.0); Microcytosis Slight; Monocytes # (A) 0.3 k/uL (0-1.0); Monocytes % (A) 2 %; Neutrophils # (A) 21.1 k/uL (1.3-7.7); Neutrophils % (A) 94 %; Platelet Count 356 k/uL (150-450); RBC 4.13 m/uL (3.80-5.40); RDW 17.2 % (11.5-15.5); WBC 22.4 k/uL (3.8-10.6)
[2022-01-16 12:11] LABS: ALT 17 U/L (4-34); AST 21 U/L (14-36); African American GFR (CKD) 77 (>60 ml/min/1.73 sqM); Albumin 3.5 g/dL (3.5-5.0); Albumin/Globulin Ratio 1.4; Alkaline Phosphatase 100 U/L (38-126); Anion Gap 9 mmol/L; Blood Urea Nitrogen 28 mg/dL (7-17); Calcium 9.3 mg/dL (8.4-10.2); Carbon Dioxide 21 mmol/L (22-30); Chloride 106 mmol/L (98-107); Globulin 2.5 g/dL; Glucose 186 mg/dL (74-99); Non-African American GFR(CKD) 67 (>60 ml/min/1.73 sqM); Potassium 4.6 mmol/L (3.5-5.1); Sodium 136 mmol/L (137-145); Total Bilirubin 0.3 mg/dL (0.2-1.3)
--- NOTE | 2022-01-16 12:15 | XR ---
EXAMINATION TYPE: XR chest 2V DATE OF EXAM: 01/16/2022 COMPARISON: Chest x-ray from yesterday and older studies HISTORY: Dyspnea. TECHNIQUE: Frontal and lateral views of the chest are obtained. FINDINGS: There is developing right infrahilar opacity on frontal view localized to the middle lobe on lateral images. No pleural effusion or pneumothorax seen bilaterally. The cardiac silhouette size is stable and upper limits of normal. The osseous structures are intact. IMPRESSION: New right middle lobe acute infiltrate and/or atelectasis.
[2022-01-16 12:30] LABS: Glucose,Whole Blood 203 mg/dL (75-99)
--- NOTE | 2022-01-16 13:16 | P.CNPUL ---
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 Patient presented to the emergency department yesterday on 01/15/2022 with complaints of chest pain, increased shortness of breath, and cough. She denied any fever or chills. The chest pain was more on the left side and was pressure-like in nature and was reproducible with palpation. In addition patient was noted to be obtunded on presentation, blood gas was obtained showing pO2 of 61, pCO2 42, pH is 7.38 this was done and FiO2 of 36%. Currently patient is on 4 L of oxygen pulse ox is 91%, she is not normally oxygen dependent at baseline, her EKG shows sinus rhythm with right bundle branch block. Chest x-ray showing borderline cardiomegaly and increased diffuse interstitial densities coiling for possible CHF with developing pulmonary vascular congestion. Patient tested negative for cold or to 19, influenza and B, and RSV. ProBNP was 347, troponins were negative 3. Patient was seen in consultation by cardiology and her chest pain was thought to be atypical in nature. Echocardiogram showing EF of 60-65%, moderate concentric LVH, no aortic stenosis or regurgitation, RSVP was not possible to measure due to inadequate TR jet. And there was trace mild pulmonic regurgitation and trace mitral regurgitation. There was no evidence of pericardial effusion, and normal inferior vena cava with normal inspiratory collapse. She denies increased swelling in her bilateral lower extremities, she states she has albuterol rescue inhaler at home, and nebulized albuterol which she uses infrequently. She denies any trouble swallowing, denies chronic aspiration. Today's chest x-ray showing new right middle lobe acute infiltrate. Patient was started on empiric antibiotics in the form of azithromycin and Rocephin. In addition patient received a dose of IV Lasix in the emergency department and started on nebulized bronchodilators. Patient is scheduled for dobutamine stress test with cardiology possibly today. Review of Systems All systems: negative Constitutional: Denies chills, Denies fever Eyes: denies blurred vision, denies pain Ears, nose, mouth and throat: Denies headache, Denies sore throat Cardiovascular: Reports chest pain, Denies shortness of breath Respiratory: Reports dyspnea, Denies cough Gastrointestinal: Denies abdominal pain, Denies diarrhea, Denies nausea, Denies vomiting Genitourinary: Denies dysuria, Denies hematuria Musculoskeletal: Denies myalgias Integumentary: Denies pruritus, Denies rash Neurological: Denies numbness, Denies weakness Psychiatric: Denies anxiety, Denies depression Endocrine: Denies fatigue, Denies weight change Past Medical History Past Medical History: Blood Disorder, Coronary Artery Disease (CAD), Cancer, Chest Pain / Angina, CVA/TIA, Diabetes Mellitus, Deep Vein Thrombosis (DVT), Fibromyalgia, GERD/Reflux, Hyperlipidemia, Hypertension, Myocardial Infarction ([place]), Musculoskeletal Disorder, Neurologic Disorder, Sleep Apnea/CPAP/BIPAP, Vascular Disorder Additional Past Medical History / Comment(s): IDDM type II, uterine/cervical and ovarian cancer, restless leg, Factor V blood disorder, DVT R leg, 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 - slight foot drag when tired/neuropathies, MS, [place] X 5, ABIGAIL with Cpap use, PAD/legs, R leg edema, past pancreatitis. Last Myocardial Infarction Date:: Pt thinks 2015 History of Any Multi-Drug Resistant Organisms: None Reported Past Surgical History: Section, Cholecystectomy, Heart Catheterization With Stent, Hysterectomy, Tubal Ligation, Uterine Ablation Additional Past Surgical History / Comment(s): vein stripping right leg, radio frequency ablation of right back-02/22/2015, four stents on 04/03/16 and one on march 05, ovaries removed, colonscopy- polyp removal Past Anesthesia/Blood Transfusion Reactions: Motion Sickness Additional Past Anesthesia/Blood Transfusion Reaction / Comment(s): mild claustrophobia Date of Last Stent Placement:: 04/03/16 Smoking Status: Current every day smoker - Past Family History Father Family Medical History: Congestive Heart Failure (CHF), Coronary Artery Disease (CAD), Diabetes Mellitus Mother Family Medical History: Cancer, COPD, Hypertension, Respiratory Disorder Additional Family Medical History / Comment(s): emphysema, colon CA Medications and Allergies Home Medications Medication Instructions Recorded Confirmed Type Citalopram Hydrobromide [CeleXA] 40 mg PO DAILY #1 tab 03/10/15 01/15/22 Rx Pregabalin [Lyrica] 150 mg PO BID 06/25/15 01/15/22 History lamoTRIgine 200 mg PO BID 07/30/16 01/15/22 History Magnesium Gluconate [Magonate] 500 mg PO HS 03/27/17 01/15/22 History Aspirin [Adult Low Dose Aspirin EC] 81 mg PO HS 11/26/17 01/15/22 History Enalapril [Vasotec] 10 mg PO BID 11/26/17 01/15/22 History Nitroglycerin Sl Tabs [Nitrostat] 0.4 mg SL Q5M PRN 11/26/17 01/15/22 History DULoxetine HCL [Cymbalta] 60 mg PO DAILY 08/25/18 01/15/22 History Isosorbide Mononitrate ER [Imdur] 60 mg PO DAILY 09/08/18 01/15/22 History Carvedilol [Coreg] 25 mg PO BID 01/22/19 01/15/22 History Vitamin B Complex 1 cap PO HS 06/23/19 01/15/22 History Morphine Sulfate [Ms Contin] 15 mg PO DAILY PRN 08/11/19 01/15/22 History ARIPiprazole [Abilify] 2 mg PO DAILY 11/08/20 01/15/22 History Clopidogrel [Plavix] 75 mg PO HS 11/08/20 01/15/22 History Insulin Glargine,Hum.rec.anlog 45 unit SQ BID 11/08/20 01/15/22 History [Lantus Solostar Pen] ALPRAZolam [Xanax] 1 mg PO BID 07/31/21 01/15/22 History Albuterol Nebulized [Ventolin 2.5 mg INHALATION RT-QID PRN 07/31/21 01/15/22 History Nebulized] Atorvastatin [Lipitor] 40 mg PO DAILY 07/31/21 01/15/22 History Cholecalciferol (Vitamin D3) 125 mcg PO HS 07/31/21 01/15/22 History [Vitamin D3 (125 MCG = 5,000 IU)] HYDROcodone/APAP 7.5-325MG [[place] 1 tab PO HS 07/31/21 01/15/22 History 7.5-325] Ketorolac [Toradol] 10 mg PO Q8H PRN 07/31/21 01/15/22 History Prochlorperazine [Compazine] 10 mg PO TID PRN 07/31/21 01/15/22 History metFORMIN HCL [Glucophage] 1,000 mg PO HS 07/31/21 01/15/22 History metFORMIN HCL [Glucophage] 500 mg PO DAILY 07/31/21 01/15/22 History amLODIPine [Norvasc] 5 mg PO DAILY tab 08/03/21 01/15/22 Rx hydroCHLOROthiazide [Hydrodiuril] 25 mg PO DAILY tab 08/03/21 01/15/22 Rx Dulaglutide [Trulicity] 1.5 mg SQ WE 01/15/22 01/15/22 History Famotidine 20 mg PO DAILY 01/15/22 01/15/22 History Methyl Folate 800mcg 1 tab PO BID 01/15/22 01/15/22 History Promethazine [Phenergan] 25 mg PO Q6H PRN 01/15/22 01/15/22 History predniSONE See Taper PO DAILY 01/15/22 01/15/22 History Allergies Allergy/AdvReac Type Severity Reaction Status Date / Time Fish Containing Products Allergy Anaphylaxis Verified 01/15/22 15:20 Iodinated Contrast Media Allergy Anaphylaxis Verified 01/15/22 15:20 [Iodinated Contrast Media - IV Dye] Sulfa (Sulfonamide Allergy Anaphylaxis Verified 01/15/22 15:20 Antibiotics) sulfamethoxazole Allergy Anaphylaxis Verified 01/15/22 15:20 [From Septra] tree nut [Nut] Allergy Anaphylaxis Verified 01/15/22 15:20 trimethoprim [From Septra] Allergy Anaphylaxis Verified 01/15/22 15:20 Physical Exam Vitals: Vital Signs Temp Pulse Resp BP Pulse Ox 01/16/22 12:26 77 18 140/68 95 01/16/22 09:10 81 18 01/16/22 08:59 84 18 91 L 01/16/22 07:34 79 16 155/75 90 L 01/16/22 05:00 97.9 F 79 15 165/76 94 L 01/16/22 04:00 76 16 172/85 93 L 01/16/22 03:00 97.7 F 73 18 153/83 93 L 01/16/22 00:22 72 01/16/22 00:14 71 01/16/22 00:00 77 18 156/78 01/15/22 22:00 69 20 141/77 95 01/15/22 20:11 80 01/15/22 20:02 76 01/15/22 19:00 73 18 115/60 90 L 01/15/22 15:00 73 26 H 138/66 01/15/22 13:45 60 16 126/77 94 L 01/15/22 13:39 16 01/15/22 13:06 97.6 F 69 18 137/75 92 L Intake and Output 01/15/22 01/16/22 01/16/22 22:59 06:59 14:59 Output Total 2300 Balance -2300 Output: Urine 2300 Other: # Voids 3 Weight 99.337 kg GENERAL EXAM: Alert, pleasant, 51-year-old white female, on 4 L of oxygen and the pulse ox of 91% resting on the gurney in the emergency department comfortable in no apparent distress. HEAD: Normocephalic/atraumatic. EYES: Normal reaction of pupils, equal size. Conjunctiva pink, sclera white. NOSE: Clear with pink turbinates. THROAT: No erythema or exudates. NECK: No masses, no JVD, no thyroid enlargement, no adenopathy. CHEST: No chest wall deformity. Symmetrical expansion. LUNGS: Equal air entry with diffuse crackles CVS: Regular rate and rhythm, normal S1 and S2, no gallops, no murmurs, no rubs ABDOMEN: Soft, nontender. No hepatosplenomegaly, normal bowel sounds, no guar ding or rigidity. EXTREMITIES: No clubbing, no edema, no cyanosis, 2+ pulses and upper and lower extremities. MUSCULOSKELETAL: Muscle strength and tone normal. SPINE: No scoliosis or deformity SKIN: No rashes CENTRAL NERVOUS SYSTEM: Alert and oriented -3. Patient has right-sided upper and lower extremity weakness from previous history of CVA PSYCHIATRIC: Alert and oriented -3. Appropriate affect. Intact judgment and insight. Results - Laboratory Findings CBC and BMP: 01/16/22 11:41 01/16/22 11:41 ABG ABG pH 7.38 (7.35-7.45) 01/15/22 17:06 ABG pCO2 42 mmHg (35-45) 01/15/22 17:06 ABG pO2 61 mmHg (83-108) L 01/15/22 17:06 ABG O2 Saturation 91.9 % (94-97) L 01/15/22 17:06 PT/INR, D-dimer PT 11.2 sec (9.0-12.0) 01/15/22 13:43 INR 1.0 (<1.2) 01/15/22 13:43 D-Dimer 0.21 mg/L FEU (<0.60) 01/15/22 13:43 Abnormal lab findings: Abnormal Labs 01/15/22 01/15/22 01/15/22 13:14 13:43 13:43 WBC 12.8 H RBC 3.73 L Hgb 8.9 L Hct 29.1 L MCV 78.0 L MCH 23.8 L MCHC 30.5 L RDW 17.4 H Neutrophils # 9.8 H Lymphocytes # ABG pO2 ABG Total CO2 ABG O2 Saturation Sodium 135 L Carbon Dioxide BUN 25 H Glucose 185 H POC Glucose (mg/dL) 223 H Magnesium 1.5 L Total Protein 5.5 L Albumin 3.2 L Urine Protein Urine Glucose (UA) Urine Bacteria Urine Mucus 01/15/22 01/15/22 01/16/22 15:56 17:06 08:05 WBC RBC Hgb Hct MCV MCH MCHC RDW Neutrophils # Lymphocytes # ABG pO2 61 L ABG Total CO2 26 H ABG O2 Saturation 91.9 L Sodium Carbon Dioxide BUN Glucose POC Glucose (mg/dL) 128 H Magnesium Total Protein Albumin Urine Protein 2+ H Urine Glucose (UA) 3+ H Urine Bacteria Rare H Urine Mucus Rare H 01/16/22 01/16/22 01/16/22 11:41 11:41 12:29 WBC 22.4 H RBC Hgb 8.9 L Hct 32.7 L MCV 79.3 L MCH 21.6 L MCHC 27.3 L RDW 17.2 H Neutrophils # 21.1 H Lymphocytes # 0.9 L ABG pO2 ABG Total CO2 ABG O2 Saturation Sodium 136 L Carbon Dioxide 21 L BUN 28 H Glucose 186 H POC Glucose (mg/dL) 203 H Magnesium Total Protein 6.0 L Albumin Urine Protein Urine Glucose (UA) Urine Bacteria Urine Mucus - Diagnostic Findings Chest x-ray: report reviewed, image reviewed Additional studies: Brain CT, echocardiogram, EKG, follow-up chest x-ray reviewed Assessment and Plan Plan: Assessment: #1. Acute hypoxic respiratory failure related to right middle lobe pneumonia, and mild exacerbation of COPD. Chest x-ray initially was showing pulmonary vascular congestion, follow-up chest x-ray today on 01/16/2022 showing new right middle lobe infiltrate. #2. Chronic hypercapnic respiratory failure related to history of obstructive sleep apnea and suspected COPD #3. Chest pain, thought to be atypical. Patient is awaiting dobutamine stress echo #4. Previous history of myocardial infarctions 4 #5. History of multiple previous CVAs with residual right-sided weakness #6. History of hypertension #7. Diabetes mellitus type 2 #8. Dyslipidemia #9. Suspected COPD with chronic and ongoing history of smoking #10. Previous episode of ventilator dependent acute hypoxic respiratory failure back in 2016 #11. Fibromyalgia #12. History of obstructive sleep apnea on CPAP and patient reports compliance with that on the daily basis #13. History of cervical, uterine and ovarian cancer status post total hysterectomy #14. Coronary artery disease with previous stenting #15. Anxiety and depression #16. Gait dysfunction Plan: Continue current antibiotics Today's chest x-ray and initial chest x-ray reviewed There is a new area of right middle lobe infiltrate that could be related to pneumonia We'll continue azithromycin and Rocephin We'll add breathing treatments Possibly steroids Await further recommendations from cardiology We'll continue to follow I have personally seen and examined the patient, performed the documentation and the assessment and plan as written. Number of minutes spent on the visit: [15] Time with Patient: Greater than 30
[2022-01-16 17:30] LABS: Glucose,Whole Blood 199 mg/dL (75-99)
[2022-01-16] MEDS ORDERED: ALBUTEROL NEBULIZED 2.5 MG/3 ML INHALATION PRN (18:43)
--- NOTE | 2022-01-16 18:44 | P.HPIM ---
History of Present Illness H&P Date: 01/16/22 Leticia Langley, is a 51-year-old female who presented to [facility] emergency room due to chest pain, cough and mental status changes with increased somnolence She was evaluated in the emergency room vital examination on presentation revealed a temperature of 97.6 pulse 69 respiration 18 blood pressure 137/75 pulse ox 92% on room air Laboratory data reveals a white blood count of 12.8 hemoglobin 8.9 platelet count 329 d-dimer 0.21 sodium 135 potassium 3.9 chloride 106 CO2 22 BUN 25 creatinine 0.95 magnesium 1.5 influenza A and B and COVID-19 PCR were negative Testing in the emergency room revealed computed tomography scan of the brain without contrast was done in the emergency room and revealed no acute intracranial hemorrhage or gross acute cortical infarct no gross space-occupying lesion stable chronic findings with left basal ganglia chronic infarct and left estevez radiata and left centrum semiovale hypodensity, stable from previous exam. Patient was admitted to medical floor for further evaluation and treatment, cardiology consultation and pulmonary consultation was requested. Past medical history is significant for history of hypertension, history of diabetes mellitus type 2, history of hyperlipidemia, history of coronary artery disease with myocardial infarction in the past, history of CVA, history of obstructive sleep apnea with CPAP at home, history of fibromyalgia, history of possible multiple sclerosis patient recently started seen a neurologist. History of tobacco abuse Past Medical History Past Medical History: Blood Disorder, Coronary Artery Disease (CAD), Cancer, Chest Pain / Angina, CVA/TIA, Diabetes Mellitus, Deep Vein Thrombosis (DVT), Fibromyalgia, GERD/Reflux, Hyperlipidemia, Hypertension, Myocardial Infarction ([place]), Musculoskeletal Disorder, Neurologic Disorder, Sleep Apnea/CPAP/BIPAP, V ascular Disorder Additional Past Medical History / Comment(s): IDDM type II, uterine/cervical and ovarian cancer, restless leg, Factor V blood disorder, DVT R leg, 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 - slight foot drag when tired/neuropathies, MS, [place] X 5, ABIGAIL with Cpap use, PAD/legs, R leg edema, past pancreatitis. Last Myocardial Infarction Date:: Pt thinks 2015 History of Any Multi-Drug Resistant Organisms: None Reported Past Surgical History: Section, Cholecystectomy, Heart Catheterization With Stent, Hysterectomy, Tubal Ligation, Uterine Ablation Additional Past Surgical History / Comment(s): vein stripping right leg, radio frequency ablation of right back-02/22/2015, four stents on 04/03/16 and one on march 05, ovaries removed, colonscopy- polyp removal Past Anesthesia/Blood Transfusion Reactions: Motion Sickness Additional Past Anesthesia/Blood Transfusion Reaction / Comment(s): mild chet strophobia Date of Last Stent Placement:: 04/03/16 Smoking Status: Current every day smoker - Past Family History Father Family Medical History: Congestive Heart Failure (CHF), Coronary Artery Disease (CAD), Diabetes Mellitus Mother Family Medical History: Cancer, COPD, Hypertension, Respiratory Disorder Additional Family Medical History / Comment(s): emphysema, colon CA Medications and Allergies Home Medications Medication Instructions Recorded Confirmed Type Citalopram Hydrobromide [CeleXA] 40 mg PO DAILY #1 tab 03/10/15 01/15/22 Rx Pregabalin [Lyrica] 150 mg PO BID 06/25/15 01/15/22 History lamoTRIgine 200 mg PO BID 07/30/16 01/15/22 History Magnesium Gluconate [Magonate] 500 mg PO HS 03/27/17 01/15/22 History Aspirin [Adult Low Dose Aspirin EC] 81 mg PO HS 11/26/17 01/15/22 History Enalapril [Vasotec] 10 mg PO BID 11/26/17 01/15/22 History Nitroglycerin Sl Tabs [Nitrostat] 0.4 mg SL Q5M PRN 11/26/17 01/15/22 History DULoxetine HCL [Cymbalta] 60 mg PO DAILY 08/25/18 01/15/22 History Isosorbide Mononitrate ER [Imdur] 60 mg PO DAILY 09/08/18 01/15/22 History Carvedilol [Coreg] 25 mg PO BID 01/22/19 01/15/22 History Vitamin B Complex 1 cap PO HS 06/23/19 01/15/22 History Morphine Sulfate [Ms Contin] 15 mg PO DAILY PRN 08/11/19 01/15/22 History ARIPiprazole [Abilify] 2 mg PO DAILY 11/08/20 01/15/22 History Clopidogrel [Plavix] 75 mg PO HS 11/08/20 01/15/22 History Insulin Glargine,Hum.rec.anlog 45 unit SQ BID 11/08/20 01/15/22 History [Lantus Solostar Pen] ALPRAZolam [Xanax] 1 mg PO BID 07/31/21 01/15/22 History Albuterol Nebulized [Ventolin 2.5 mg INHALATION RT-QID PRN 07/31/21 01/15/22 History Nebulized] Atorvastatin [Lipitor] 40 mg PO DAILY 07/31/21 01/15/22 History Cholecalciferol (Vitamin D3) 125 mcg PO HS 07/31/21 01/15/22 History [Vitamin D3 (125 MCG = 5,000 IU)] HYDROcodone/APAP 7.5-325MG [[place] 1 tab PO HS 07/31/21 01/15/22 History 7.5-325] Ketorolac [Toradol] 10 mg PO Q8H PRN 07/31/21 01/15/22 History Prochlorperazine [Compazine] 10 mg PO TID PRN 07/31/21 01/15/22 History metFORMIN HCL [Glucophage] 1,000 mg PO HS 07/31/21 01/15/22 History metFORMIN HCL [Glucophage] 500 mg PO DAILY 07/31/21 01/15/22 History amLODIPine [Norvasc] 5 mg PO DAILY tab 08/03/21 01/15/22 Rx hydroCHLOROthiazide [Hydrodiuril] 25 mg PO DAILY tab 08/03/21 01/15/22 Rx Dulaglutide [Trulicity] 1.5 mg SQ WE 01/15/22 01/15/22 History Famotidine 20 mg PO DAILY 01/15/22 01/15/22 History Methyl Folate 800mcg 1 tab PO BID 01/15/22 01/15/22 History Promethazine [Phenergan] 25 mg PO Q6H PRN 01/15/22 01/15/22 History predniSONE See Taper PO DAILY 01/15/22 01/15/22 History Allergies Allergy/AdvReac Type Severity Reaction Status Date / Time Fish Containing Products Allergy Anaphylaxis Verified 01/15/22 15:20 Iodinated Contrast Media Allergy Anaphylaxis Verified 01/15/22 15:20 [Iodinated Contrast Media - IV Dye] Sulfa (Sulfonamide Allergy Anaphylaxis Verified 01/15/22 15:20 Antibiotics) sulfamethoxazole Allergy Anaphylaxis Verified 01/15/22 15:20 [From ] tree nut [Nut] Allergy Anaphylaxis Verified 01/15/22 15:20 trimethoprim [From Junra] Allergy Anaphylaxis Verified 01/15/22 15:20 Physical Exam Vitals: Vital Signs Temp Pulse Resp BP Pulse Ox 01/16/22 08:59 84 18 91 L 01/16/22 07:34 79 16 155/75 90 L 01/16/22 05:00 97.9 F 79 15 165/76 94 L 01/16/22 04:00 76 16 172/85 93 L 01/16/22 03:00 97.7 F 73 18 153/83 93 L 01/16/22 00:22 72 01/16/22 00:14 71 01/16/22 00:00 77 18 156/78 01/15/22 22:00 69 20 141/77 95 01/15/22 20:11 80 01/15/22 20:02 76 01/15/22 19:00 73 18 115/60 90 L 01/15/22 15:00 73 26 H 138/66 01/15/22 13:45 60 16 126/77 94 L 01/15/22 13:39 16 01/15/22 13:06 97.6 F 69 18 137/75 92 L Intake and Output 01/15/22 01/16/22 01/16/22 22:59 06:59 14:59 Output Total 2300 Balance -2300 Output: Urine 2300 Other: # Voids 3 Weight 99.337 kg In general patient is alert and oriented x 3 in no distress HEENT head normocephalic and atraumatic Neck is supple no JVD no goiter no lymphadenopathy no carotid bruit Chest examination is clear to auscultation no crackles no wheezing Cardiac exam reveals regular heart sounds S1 and S2 no gallops no murmurs Abdomen is soft nontender no organomegaly with normal bowel sounds Extremity exam reveals no edema no cyanosis or clubbing Neurological examination reveals no gross focal deficits Results CBC & Chem 7: 01/16/22 11:41 01/16/22 11:41 Labs: Abnormal Lab Results - Last 24 Hours (Table) 01/15/22 01/15/22 01/15/22 Range/Units 13:14 13:43 13:43 WBC 12.8 H (3.8-10.6) k/uL RBC 3.73 L (3.80-5.40) m/uL Hgb 8.9 L (11.4-16.0) gm/dL Hct 29.1 L (34.0-46.0) % MCV 78.0 L (80.0-100.0) fL MCH 23.8 L (25.0-35.0) pg MCHC 30.5 L (31.0-37.0) g/dL RDW 17.4 H (11.5-15.5) % Neutrophils # 9.8 H (1.3-7.7) k/uL ABG pO2 (83-108) mmHg ABG Total CO2 (19-24) mmol/L ABG O2 Saturation (94-97) % Sodium 135 L (137-145) mmol/L BUN 25 H (7-17) mg/dL Glucose 185 H (74-99) mg/dL POC Glucose (mg/dL) 223 H (75-99) mg/dL Magnesium 1.5 L (1.6-2.3) mg/dL Total Protein 5.5 L (6.3-8.2) g/dL Albumin 3.2 L (3.5-5.0) g/dL Urine Protein (Negative) Urine Glucose (UA) (Negative) Urine Bacteria (None) /hpf Urine Mucus (None) /hpf 01/15/22 01/15/22 01/16/22 Range/Units 15:56 17:06 08:05 WBC (3.8-10.6) k/uL RBC (3.80-5.40) m/uL Hgb (11.4-16.0) gm/dL Hct (34.0-46.0) % MCV (80.0-100.0) fL MCH (25.0-35.0) pg MCHC (31.0-37.0) g/dL RDW (11.5-15.5) % Neutrophils # (1.3-7.7) k/uL ABG pO2 61 L (83-108) mmHg ABG Total CO2 26 H (19-24) mmol/L ABG O2 Saturation 91.9 L (94-97) % Sodium (137-145) mmol/L BUN (7-17) mg/dL Glucose (74-99) mg/dL POC Glucose (mg/dL) 128 H (75-99) mg/dL Magnesium (1.6-2.3) mg/dL Total Protein (6.3-8.2) g/dL Albumin (3.5-5.0) g/dL Urine Protein 2+ H (Negative) Urine Glucose (UA) 3+ H (Negative) Urine Bacteria Rare H (None) /hpf Urine Mucus Rare H (None) /hpf Thrombosis Risk Factor Assmnt - Choose All That Apply Any of the Below Risk Factors Present?: Yes Each Factor Represents 1 point: Age 41-60 years, Obesity (BMI >25) Other Risk Factors: Yes Each Risk Factor Represents 2 Points: Malignancy Each Risk Factor Represents 3 Points: Positive Factor V Leiden, History of DVT/PE Other congenital or acquired thrombophilia - If yes, enter type in comment: No Thrombosis Risk Factor Assessment Total Risk Factor Score: 10 Thrombosis Risk Factor Assessment Level: High Risk Assessment and Plan Plan: Right middle lobe infiltrate suggestive of pneumonia Acute hypoxic respiratory failure on presentation Episode of chest pain on presentation, cardiology consultation requested Underlying history of coronary artery disease with history of myocardial infarction in the past Underlying history of diabetes mellitus type 2 History of hypertension Underlying history of hyperlipidemia Underlying history of fibromyalgia Underlying history of obstructive sleep apnea maintained on CPAP at home Mental status changes on presentation with somnolence and confusion, improved at this time Underlying history of uterine and ovarian cancer status post total hysterectomy Underlying history of depression and anxiety disorder Possible multiple sclerosis, patient recently started evaluation by neurologist Dr. Strange At this time patient is admitted to medical floor She was started on IV Rocephin and Zithromax for possible community-acquired pneumonia Cardiology consultation was requested for chest pain echocardiogram was ordered Pulmonary consultation was requested for evaluation and pneumonia Home medications reviewed and reordered, will recheck labs in a.m. and follow up in am
[2022-01-16 19:55] LABS: Glucose,Whole Blood 415 mg/dL (75-99)
[2022-01-16] MEDS: CLOPIDOGREL 75 MG TAB PO SCH (20:47)
[2022-01-16] MEDS: MAGNESIUM OXIDE 400 MG TAB PO SCH (20:47)
[2022-01-16] MEDS: HYDROcodone/APAP 7.5-325MG 1 EACH TAB PO SCH (20:47)
[2022-01-16] MEDS: CHOLECALCIFEROL 125 MCG (5000 IU) TABLET PO SCH (20:47)
[2022-01-17] MEDS: IPRATROPIUM-ALBUTEROL 3 ML NEB INHALATION SCH ×5 (00:03→15:14)
[2022-01-17 07:24] LABS: Glucose,Whole Blood 201 mg/dL (75-99)
--- NOTE | 2022-01-17 08:25 | XR ---
EXAMINATION TYPE: XR chest 1V portable DATE OF EXAM: 01/17/2022 COMPARISON: 01/16/2022 INDICATION: Short of breath TECHNIQUE: Single frontal view of the chest is obtained. FINDINGS: The heart size is normal. The pulmonary vasculature is normal. The lungs are clear. Previous linear opacities have resolved likely related to atelectasis. IMPRESSION: 1. No acute pulmonary process. Resolution of previous right lung atelectasis.
[2022-01-17] MEDS ORDERED: AZITHROMYCIN 500 MG TAB PO SCH (09:00)
[2022-01-17] MEDS ORDERED: methylPREDNISolone 4 MG TAB TAPER PO SCH (09:00)
[2022-01-17] MEDS ORDERED: ISOSORBIDE MONONITRATE ER 60 MG TAB.ER.24H PO SCH (09:00)
[2022-01-17] MEDS ORDERED: FAMOTIDINE 20 MG TAB PO SCH (09:00)
[2022-01-17] MEDS: INSULIN ASPART (NovoLOG) 100 UNIT/ML VIAL SQ SCH ×2 (09:14→12:13)
[2022-01-17] MEDS: METHYL FOLATE PO SCH (09:16)
[2022-01-17 09:36] LABS: Basophils # (A) 0.02 X 10*3/uL (0.00-0.10); Basophils % (A) 0.1 %; Eosinophils # (A) 0 X 10*3/uL (0.04-0.35); Eosinophils % (A) 0 %; HCT 31.4 % (37.2-46.3); HGB 9.2 g/dL (12.0-15.0); Immature Grans, Automated 0.8 %; Lymphocytes # (A) 0.84 X 10*3/uL (0.90-5.00); Lymphocytes % (A) 4.4 %; MCHC 29.3 g/dL (32.0-37.0); MCV 75.1 fL (80.0-97.0); Mean Platelet Volume 11.3 fL (9.5-12.2); Monocytes # (A) 0.91 X 10*3/uL (0.20-1.00); Monocytes % (A) 4.7 %; NRBC Per 100 WBC 0 /100 WBCS (0.0-0.0); Neutrophils # (A) 17.24 X 10*3/uL (1.80-7.70); Platelet Count 400 X 10*3/uL (140-440); RBC 4.18 X 10*6/uL (4.10-5.20); WBC 19.17 X 10*3/uL (4.50-10.00)
[2022-01-17] MEDS: DULoxetine HCL 60 MG CAPSULE.DR PO SCH (09:37)
[2022-01-17] MEDS: ATORVASTATIN 40 MG TAB PO SCH (09:37)
[2022-01-17] MEDS: ARIPiprazole 2 MG TAB PO SCH (09:37)
[2022-01-17] MEDS: amLODIPine 5 MG TAB PO SCH (09:37)
[2022-01-17] MEDS: lisinopriL 20 MG TAB PO SCH (09:37)
[2022-01-17] MEDS: lamoTRIgine 100 MG TAB PO SCH (09:37)
[2022-01-17] MEDS: ALPRAZolam 1 MG TAB PO SCH (09:38)
[2022-01-17] MEDS: CITALOPRAM HYDROBROMIDE 20 MG TAB PO SCH (09:38)
[2022-01-17] MEDS: PREGABALIN 75 MG CAP PO SCH (09:38)
[2022-01-17] MEDS: ENOXAPARIN 40 MG/0.4 ML SYRINGE SQ SCH (09:39)
[2022-01-17] MEDS: PANTOPRAZOLE 40 MG/10 ML VIAL IV SCH (09:39)
[2022-01-17 09:49] LABS: ALT 16 U/L (8-44); AST 10 U/L (13-35); African American GFR (CKD) 64.3 (60.0-200.0); Albumin 3.8 g/dL (3.8-4.9); Alkaline Phosphatase 113 U/L (41-126); BUN/Creat Ratio 29.57 Ratio (12.00-20.00); Carbon Dioxide 22.9 mmol/L (20.0-27.5); Chloride 99 mmol/L (96-109); Glucose 191 mg/dL (70-110); Non-African American GFR(CKD) 55.4 (60.0-200.0); Potassium 4.3 mmol/L (3.5-5.5); Sodium 138 mmol/L (135-145); Total Bilirubin <0.15 mg/dL (0.30-1.20); Total Protein 5.8 g/dL (6.2-8.2)
--- NOTE | 2022-01-17 10:29 | P.PN ---
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 Patient presented to the emergency department yesterday on 01/15/2022 with complaints of chest pain, increased shortness of breath, and cough. She denied any fever or chills. The chest pain was more on the left side and was pressure-like in nature and was reproducible with palpation. In addition patient was noted to be obtunded on presentation, blood gas was obtained showing pO2 of 61, pCO2 42, pH is 7.38 this was done and FiO2 of 36%. Currently patient is on 4 L of oxygen pulse ox is 91%, she is not normally oxygen dependent at baseline, her EKG shows sinus rhythm with right bundle branch block. Chest x-ray showing borderline cardiomegaly and increased diffuse interstitial densities coiling for possible CHF with developing pulmonary vascular congestion. Patient tested negative for cold or to 19, influenza and B, and RSV. ProBNP was 347, troponins were negative 3. Patient was seen in consultation by cardiology and her chest pain was thought to be atypical in nature. Echocardiogram showing EF of 60-65%, moderate concentric LVH, no aortic stenosis or regurgitation, RSVP was not possible to measure due to inadequate TR jet. And there was trace mild pulmonic regurgitation and trace mitral regurgitation. There was no evidence of pericardial effusion, and normal inferior vena cava with normal inspiratory collapse. She denies increased swelling in her bilateral lower extremities, she states she has albuterol rescue inhaler at home, and nebulized albuterol which she uses infrequently. She denies any trouble swallowing, denies chronic aspiration. Today's chest x-ray showing new right middle lobe acute infiltrate. Patient was started on empiric antibiotics in the form of azithromycin and Rocephin. In addition patient re ceived a dose of IV Lasix in the emergency department and started on nebulized bronchodilators. Patient is scheduled for dobutamine stress test with cardiology possibly today. On 01/17/2022 patient seen in follow-up on medical surgical floor, she is breathing much easier today, she is resting comfortably in bed, she is currently on 5 L of oxygen but her sats are 100%, subsequently FiO2 has been dropped down to room air, and patient continues to saturate at 96-97%, she is breathing much easier, minimal wheezing at today's exam. Occasional cough, vital signs have been stable overnight. No fever or chills, a bit hypertensive this morning with a blood pressure 190/85. No complaints of chest pain, heart rate is controlled. Chest x-ray showing no acute pulmonary process, and resolution of the previous right lung atelectasis. Patient remains on azithromycin and Rocephin. Pro- calcitonin level was negative at 0.04. Possibility of pneumonia is thought to be less likely. Patient continues on IV Solu-Medrol, and she has developed Solu-Medrol induced hyperglycemia. Much less bronchospastic and congested on today's exam, we can discontinue the IV steroids and switch the patient to Medr ol dosepak. Cardiology has been following, and patient has been scheduled for dobutamine stress echo today. Objective - Vital Signs Vital signs: Vital Signs Temp 97.7 F 01/17/22 07:00 Pulse 79 01/17/22 07:42 Resp 16 01/17/22 07:00 BP 190/85 01/17/22 07:00 Pulse Ox 93 L 01/17/22 07:28 Intake & Output 01/16/22 01/17/22 01/17/22 18:59 06:59 18:59 Output Total 1800 Balance -1800 Weight 99.337 kg Output: Urine 1800 Other: Voiding Method Indwelling Catheter Bedside Commode # Voids 1 - Exam GENERAL EXAM: Alert, pleasant, 51-year-old white female, on 5 L of oxygen and the pulse ox of 100% resting on the gurney in the emergency department comfortable in no apparent distress. HEAD: Normocephalic/atraumatic. EYES: Normal reaction of pupils, equal size. Conjunctiva pink, sclera white. NOSE: Clear with pink turbinates. THROAT: No erythema or exudates. NECK: No masses, no JVD, no thyroid enlargement, no adenopathy. CHEST: No chest wall deformity. Symmetrical expansion. LUNGS: Equal air entry with minimal wheeze CVS: Regular rate and rhythm, normal S1 and S2, no gallops, no murmurs, no rubs ABDOMEN: Soft, nontender. No hepatosplenomegaly, normal bowel sounds, no guarding or rigidity. EXTREMITIES: No clubbing, no edema, no cyanosis, 2+ pulses and upper and lower extremities. MUSCULOSKELETAL: Muscle strength and tone normal. SPINE: No scoliosis or deformity SKIN: No rashes CENTRAL NERVOUS SYSTEM: Alert and oriented -3. Patient has right-sided upper and lower extremity weakness from previous history of CVA PSYCHIATRIC: Alert and oriented -3. Appropriate affect. Intact judgment and insight. - Labs CBC & Chem 7: 01/17/22 06:58 01/17/22 06:58 Labs: Abnormal Lab Results - Last 24 Hours (Table) 01/16/22 01/16/22 01/16/22 Range/Units 11:41 11:41 12:29 WBC 22.4 H (3.8-10.6) k/uL Hgb 8.9 L (11.4-16.0) gm/dL Hct 32.7 L (34.0-46.0) % MCV 79.3 L (80.0-100.0) fL MCH 21.6 L (25.0-35.0) pg MCHC 27.3 L (31.0-37.0) g/dL RDW 17.2 H (11.5-15.5) % Immature Gran # (0.00-0.04) X 10*3/uL Neutrophils # 21.1 H (1.3-7.7) k/uL Lymphocytes # 0.9 L (1.0-4.8) k/uL Eosinophils # (0.04-0.35) X 10*3/uL Sodium 136 L (137-145) mmol/L Carbon Dioxide 21 L (22-30) mmol/L BUN 28 H (7-17) mg/dL Est GFR (CKD-EPI)NonAf (60.0-200.0) BUN/Creatinine Ratio (12.00-20.00) Ratio Glucose 186 H (74-99) mg/dL POC Glucose (mg/dL) 203 H (75-99) mg/dL Total Bilirubin (0.30-1.20) mg/dL AST (13-35) U/L Total Protein 6.0 L (6.3-8.2) g/dL 01/16/22 01/16/22 01/17/22 Range/Units 17:28 19:53 06:58 WBC 19.17 H (3.8-10.6) k/uL Hgb 9.2 L (11.4-16.0) gm/dL Hct 31.4 L (34.0-46.0) % MCV 75.1 L (80.0-100.0) fL MCH 22.0 L (25.0-35.0) pg MCHC 29.3 L (31.0-37.0) g/dL RDW 18.0 H (11.5-15.5) % Immature Gran # 0.16 H (0.00-0.04) X 10*3/uL Neutrophils # 17.24 H (1.3-7.7) k/uL Lymphocytes # 0.84 L (1.0-4.8) k/uL Eosinophils # 0 L (0.04-0.35) X 10*3/uL Sodium (137-145) mmol/L Carbon Dioxide (22-30) mmol/L BUN (7-17) mg/dL Est GFR (CKD-EPI)NonAf (60.0-200.0) BUN/Creatinine Ratio (12.00-20.00) Ratio Glucose (74-99) mg/dL POC Glucose (mg/dL) 199 H 415 H (75-99) mg/dL Total Bilirubin (0.30-1.20) mg/dL AST (13-35) U/L Total Protein (6.3-8.2) g/dL 01/17/22 01/17/22 Range/Units 06:58 07:22 WBC (3.8-10.6) k/uL Hgb (11.4-16.0) gm/dL Hct (34.0-46.0) % MCV (80.0-100.0) fL MCH (25.0-35.0) pg MCHC (31.0-37.0) g/dL RDW (11.5-15.5) % Immature Gran # (0.00-0.04) X 10*3/uL Neutrophils # (1.3-7.7) k/uL Lymphocytes # (1.0-4.8) k/uL Eosinophils # (0.04-0.35) X 10*3/uL Sodium (137-145) mmol/L Carbon Dioxide (22-30) mmol/L BUN 34.0 H (7-17) mg/dL Est GFR (CKD-EPI)NonAf 55.4 L (60.0-200.0) BUN/Creatinine Ratio 29.57 H (12.00-20.00) Ratio Glucose 191 H (74-99) mg/dL POC Glucose (mg/dL) 201 H (75-99) mg/dL Total Bilirubin <0.15 L (0.30-1.20) mg/dL AST 10 L (13-35) U/L Total Protein 5.8 L (6.3-8.2) g/dL Microbiology - Last 24 Hours (Table) 01/15/22 16:00 Blood Culture - Preliminary Blood No Growth after 24 hours 01/15/22 15:54 Blood Culture - Preliminary Blood No Growth after 24 hours Assessment and Plan Plan: Assessment: #1. Acute hypoxic respiratory failure related to acute exacerbation of COPD, and chest x-ray showed right middle lobe infiltrate on follow-up chest x-ray on 01/16/2022 which resolved today on 01/17/2022. Procalcitonin level is negative, possibility of bacterial pneumonia is thought to be less likely. #2. Chronic hypercapnic respiratory failure related to history of obstructive sleep apnea and suspected COPD #3. Chest pain, thought to be atypical. Patient is awaiting dobutamine stress echo #4. Previous history of myocardial infarctions 4 #5. History of multiple previous CVAs with residual right-sided weakness #6. History of hypertension #7. Diabetes mellitus type 2 #8. Dyslipidemia #9. Suspected COPD with chronic and ongoing history of smoking #10. Previous episode of ventilator dependent acute hypoxic respiratory failure back in 2016 #11. Fibromyalgia #12. History of obstructive sleep apnea on CPAP and patient reports compliance with that on the daily basis #13. History of cervical, uterine and ovarian cancer status post total hysterectomy #14. Coronary artery disease with previous stenting #15. Anxiety and depression #16. Gait dysfunction Plan: Patient is clinically improving Breathing much easier, Obtain home oxygen assessment We can stop the steroids and switch the patient to a Medrol Dosepak Patient can complete 3 more days of oral azithromycin Procalcitonin level is negative Right middle lobe infiltrate resolved on today's chest x-ray Possibility of pneumonia is less likely After she has been cleared by cardiology she can be considered for discharge home on Medrol Dosepak and oral antibiotics She can resume her nebulized albuterol, and rescue inhaler Outpatient follow-up with Dr. Alcantara in the office in one week I have personally seen and examined the patient, performed the documentation and the assessment and plan as written. Number of minutes spent on the visit: [10] Time with Patient: Less than 30
--- NOTE | 2022-01-17 11:26 | P.PN ---
Subjective This is a pleasant 51-year-old female past medical history significant for coronary artery disease status post multivessel PCI, hypertension, dyslipidemia, diabetes mellitus and chronic nicotine dependence. She follows in the office with Dr. Jasso. We have been asked to see in consultation for chest pain. Acute coronary syndrome has been ruled out with negative cardiac enzymes and EKG sinus rhythm with left right bundle branch block and secondary ST-T wave changes. Patient seen and examined at bedside, no acute distress. Denies any chest pain or shortness of breath. Her vital signs are stable. Echocardiogram revealed EF of 6065 percent, RV is mildly enlarged, LA is mildly dilated. She is currently maintained on amlodipine 5 mg daily, aspirin 80 mg daily, atorvastatin 40 mg daily, carvedilol 25 mg twice a day, Plavix afebrile milligrams daily, hydrochlorothiazide 25 mg daily, Imdur 60 mg daily, lisinopril 40 mg daily PHYSICAL EXAMINATION Blood pressure 172/76 prior to her medications being given, heart rate 79, afeb rile, oxygen saturation is 93% on 5L nasal cannula CONSTITUTIONAL: No apparent distress. HEENT: Neck Supple. No JVD. CHEST EXAMINATION: Lungs are clear to auscultation. No chest wall tenderness is noted on palpation or with deep breathing. HEART EXAMINATION: Regular rate and rhythm. S1, S2 heard. No murmurs, gallops or rub. ABDOMEN: Soft, nontender. EXTREMITIES: 2+ peripheral pulses, no lower extremity edema and no calf tenderness. NEUROLOGIC EXAMINATION: Patient is awake, alert and oriented x3. ASSESSMENT Chest pain, atypical, acute coronary syndrome has been ruled out COPD exacerbation Hypertension Coronary artery disease status post multivessel PCI Hypertension Dyslipidemia Chronic nicotine dependence PLAN An acute coronary event has been ruled out. Plan for Dobutamine stress echo today, stress test had to be cancelled yesterday secondary to patient eating breakfast. From cardiology perspective, if stress test is negative okay to discharge and follow-up in the office. Nurse Practitioner note has been reviewed, I agree with a documented findings and plan of care. Patient was seen and examined. Objective - Vital Signs Vital signs: Vital Signs Temp 97.7 F 01/17/22 07:00 Pulse 79 01/17/22 07:42 Resp 16 01/17/22 07:00 BP 172/76 01/17/22 10:35 Pulse Ox 93 L 01/17/22 07:28 Intake & Output 01/16/22 01/17/22 01/17/22 18:59 06:59 18:59 Output Total 1800 Balance -1800 Weight 99.337 kg Output: Urine 1800 Other: Voiding Method Indwelling Catheter Bedside Commode # Voids 1 - Labs CBC & Chem 7: 01/17/22 06:58 01/17/22 06:58 Labs: Abnormal Lab Results - Last 24 Hours (Table) 01/16/22 01/16/22 01/16/22 Range/Units 11:41 11:41 12:29 WBC 22.4 H (3.8-10.6) k/uL Hgb 8.9 L (11.4-16.0) gm/dL Hct 32.7 L (34.0-46.0) % MCV 79.3 L (80.0-100.0) fL MCH 21.6 L (25.0-35.0) pg MCHC 27.3 L (31.0-37.0) g/dL RDW 17.2 H (11.5-15.5) % Immature Gran # (0.00-0.04) X 10*3/uL Neutrophils # 21.1 H (1.3-7.7) k/uL Lymphocytes # 0.9 L (1.0-4.8) k/uL Eosinophils # (0.04-0.35) X 10*3/uL Sodium 136 L (137-145) mmol/L Carbon Dioxide 21 L (22-30) mmol/L BUN 28 H (7-17) mg/dL Est GFR (CKD-EPI)NonAf (60.0-200.0) BUN/Creatinine Ratio (12.00-20.00) Ratio Glucose 186 H (74-99) mg/dL POC Glucose (mg/dL) 203 H (75-99) mg/dL Total Bilirubin (0.30-1.20) mg/dL AST (13-35) U/L Total Protein 6.0 L (6.3-8.2) g/dL 01/16/22 01/16/22 01/17/22 Range/Units 17:28 19:53 06:58 WBC 19.17 H (3.8-10.6) k/uL Hgb 9.2 L (11.4-16.0) gm/dL Hct 31.4 L (34.0-46.0) % MCV 75.1 L (80.0-100.0) fL MCH 22.0 L (25.0-35.0) pg MCHC 29.3 L (31.0-37.0) g/dL RDW 18.0 H (11.5-15.5) % Immature Gran # 0.16 H (0.00-0.04) X 10*3/uL Neutrophils # 17.24 H (1.3-7.7) k/uL Lymphocytes # 0.84 L (1.0-4.8) k/uL Eosinophils # 0 L (0.04-0.35) X 10*3/uL Sodium (137-145) mmol/L Carbon Dioxide (22-30) mmol/L BUN (7-17) mg/dL Est GFR (CKD-EPI)NonAf (60.0-200.0) BUN/Creatinine Ratio (12.00-20.00) Ratio Glucose (74-99) mg/dL POC Glucose (mg/dL) 199 H 415 H (75-99) mg/dL Total Bilirubin (0.30-1.20) mg/dL AST (13-35) U/L Total Protein (6.3-8.2) g/dL 01/17/22 01/17/22 Range/Units 06:58 07:22 WBC (3.8-10.6) k/uL Hgb (11.4-16.0) gm/dL Hct (34.0-46.0) % MCV (80.0-100.0) fL MCH (25.0-35.0) pg MCHC (31.0-37.0) g/dL RDW (11.5-15.5) % Immature Gran # (0.00-0.04) X 10*3/uL Neutrophils # (1.3-7.7) k/uL Lymphocytes # (1.0-4.8) k/uL Eosinophils # (0.04-0.35) X 10*3/uL Sodium (137-145) mmol/L Carbon Dioxide (22-30) mmol/L BUN 34.0 H (7-17) mg/dL Est GFR (CKD-EPI)NonAf 55.4 L (60.0-200.0) BUN/Creatinine Ratio 29.57 H (12.00-20.00) Ratio Glucose 191 H (74-99) mg/dL POC Glucose (mg/dL) 201 H (75-99) mg/dL Total Bilirubin <0.15 L (0.30-1.20) mg/dL AST 10 L (13-35) U/L Total Protein 5.8 L (6.3-8.2) g/dL Microbiology - Last 24 Hours (Table) 01/15/22 16:00 Blood Culture - Preliminary Blood No Growth after 24 hours 01/15/22 15:54 Blood Culture - Preliminary Blood No Growth after 24 hours
[2022-01-17] MEDS ORDERED: amLODIPine 5 MG TAB PO STA (12:05)
--- NOTE | 2022-01-17 12:09 | P.PN ---
Progress Note - Text Patient scheduled for Dobutamine stress echo test today. Patient with elevated blood pressures 200s/100s prior to stress test. She did not receive her morning medications. She was taken back up to 6N and given her antihypertensives besides beta d[place]ota for stress test. BP improved 172/76. Re-attempted to perform stress test, however, patient continued to have Blood pressures elevated. BP 240s/100s. Stress test stopped. Discussed with Dr. Jasso. Plan to control patient's blood pressure. We will increase amlodipine to 10mg daily. And add clonidine 0.1mg TID if BP continues to be elevated Stress test will be cancelled and further indication for completion will be done as an outpatient in the office. Nurse Practitioner note has been reviewed, I agree with a documented findings and plan of care. Patient was seen and examined.
[2022-01-17 12:11] LABS: Glucose,Whole Blood 169 mg/dL (75-99)
[2022-01-17] MEDS: carvediloL 12.5 MG TAB PO SCH (12:12)
[2022-01-17] MEDS: metFORMIN 500 MG TAB PO SCH (12:12)
[2022-01-17] MEDS: INSULIN DETEMIR (LEVEMIR) 100 UNIT/ML SYR SQ SCH (12:13)
--- NOTE | 2022-01-17 12:32 | P.PN ---
Subjective Progress Note Date: 01/17/22 Leticia Langley, is a 51-year-old female who presented to [facility] emergency room due to chest pain, cough and mental status changes with increased somnolence She was evaluated in the emergency room vital examination on presentation revealed a temperature of 97.6 pulse 69 respiration 18 blood pressure 137/75 pulse ox 92% on room air Laboratory data reveals a white blood count of 12.8 hemoglobin 8.9 platelet count 329 d-dimer 0.21 sodium 135 potassium 3.9 chloride 106 CO2 22 BUN 25 creatinine 0.95 magnesium 1.5 influenza A and B and COVID-19 PCR were negative Testing in the emergency room revealed computed tomography scan of the brain without contrast was done in the emergency room and revealed no acute intracranial hemorrhage or gross acute cortical infarct no gross space-occupying lesion stable chronic findings with left basal ganglia chronic infarct and left estevez radiata and left centrum semiovale hypodensity, stable from previous exam. Patient was admitted to medical floor for further evaluation and treatment, cardiology consultation and pulmonary consultation was requested. Past medical history is significant for history of hypertension, history of diabetes mellitus type 2, history of hyperlipidemia, history of coronary artery disease with myocardial infarction in the past, history of CVA, history of obstructive sleep apnea with CPAP at home, history of fibromyalgia, history of possible multiple sclerosis patient recently started seen a neurologist. Histo ry of tobacco abuse On 01/17/2022 patient is alert and oriented 3. Patient was supposed to undergo debridement stress test but unable to be completed due to elevated blood pressure. Blood pressure medications have been adjusted per cardiology Norvasc increased to 10 mg and clonidine 0.1 mg 3 times a day was added. We'll continue to monitor blood pressure. Patient remains on azithromycin and Medrol dosepak pulmonary cardiology services are following. At this time patient denies chest pain or shortness breath. Patient denies nausea vomiting or diarrhea. Patient denies any urinary burning or frequency Objective - Vital Signs Vital signs: Vital Signs Temp 97.7 F 01/17/22 07:00 Pulse 79 01/17/22 07:42 Resp 16 01/17/22 07:00 BP 172/76 01/17/22 10:35 Pulse Ox 93 L 01/17/22 07:28 Intake & Output 01/16/22 01/17/22 01/17/22 18:59 06:59 18:59 Output Total 1800 Balance -1800 Weight 99.337 kg Output: Urine 1800 Other: Voiding Method Indwelling Catheter Bedside Commode # Voids 1 - Exam Head normocephalic Neck supple Lungs clear to auscultation bilaterally no wheezing or crackles Heart regular rate and rhythm S1-S2, no rub or gallop Abdomen is soft nontender nondistended positive bowel sounds no hepatosplenomegaly Extremities no edema Neuro alert and orientated to 3 - Labs CBC & Chem 7: 01/17/22 06:58 01/17/22 06:58 Labs: Abnormal Lab Results - Last 24 Hours (Table) 01/16/22 01/16/22 01/16/22 Range/Units 12:29 17:28 19:53 WBC (4.50-10.00) X 10*3/uL Hgb (12.0-15.0) g/dL Hct (37.2-46.3) % MCV (80.0-97.0) fL MCH (27.0-32.0) pg MCHC (32.0-37.0) g/dL RDW (11.5-14.5) % Immature Gran # (0.00-0.04) X 10*3/uL Neutrophils # (1.80-7.70) X 10*3/uL Lymphocytes # (0.90-5.00) X 10*3/uL Eosinophils # (0.04-0.35) X 10*3/uL BUN (9.0-27.0) mg/dL Est GFR (CKD-EPI)NonAf (60.0-200.0) BUN/Creatinine Ratio (12.00-20.00) Ratio Glucose (70-110) mg/dL POC Glucose (mg/dL) 203 H 199 H 415 H (75-99) mg/dL Total Bilirubin (0.30-1.20) mg/dL AST (13-35) U/L Total Protein (6.2-8.2) g/dL 01/17/22 01/17/22 01/17/22 Range/Units 06:58 06:58 07:22 WBC 19.17 H (4.50-10.00) X 10*3/uL Hgb 9.2 L (12.0-15.0) g/dL Hct 31.4 L (37.2-46.3) % MCV 75.1 L (80.0-97.0) fL MCH 22.0 L (27.0-32.0) pg MCHC 29.3 L (32.0-37.0) g/dL RDW 18.0 H (11.5-14.5) % Immature Gran # 0.16 H (0.00-0.04) X 10*3/uL Neutrophils # 17.24 H (1.80-7.70) X 10*3/uL Lymphocytes # 0.84 L (0.90-5.00) X 10*3/uL Eosinophils # 0 L (0.04-0.35) X 10*3/uL BUN 34.0 H (9.0-27.0) mg/dL Est GFR (CKD-EPI)NonAf 55.4 L (60.0-200.0) BUN/Creatinine Ratio 29.57 H (12.00-20.00) Ratio Glucose 191 H (70-110) mg/dL POC Glucose (mg/dL) 201 H (75-99) mg/dL Total Bilirubin <0.15 L (0.30-1.20) mg/dL AST 10 L (13-35) U/L Total Protein 5.8 L (6.2-8.2) g/dL 01/17/22 Range/Units 12:10 WBC (4.50-10.00) X 10*3/uL Hgb (12.0-15.0) g/dL Hct (37.2-46.3) % MCV (80.0-97.0) fL MCH (27.0-32.0) pg MCHC (32.0-37.0) g/dL RDW (11.5-14.5) % Immature Gran # (0.00-0.04) X 10*3/uL Neutrophils # (1.80-7.70) X 10*3/uL Lymphocytes # (0.90-5.00) X 10*3/uL Eosinophils # (0.04-0.35) X 10*3/uL BUN (9.0-27.0) mg/dL Est GFR (CKD-EPI)NonAf (60.0-200.0) BUN/Creatinine Ratio (12.00-20.00) Ratio Glucose (70-110) mg/dL POC Glucose (mg/dL) 169 H (75-99) mg/dL Total Bilirubin (0.30-1.20) mg/dL AST (13-35) U/L Total Protein (6.2-8.2) g/dL Microbiology - Last 24 Hours (Table) 01/15/22 16:00 Blood Culture - Preliminary Blood No Growth after 24 hours 01/15/22 15:54 Blood Culture - Preliminary Blood No Growth after 24 hours Assessment and Plan Plan: Right middle lobe infiltrate suggestive of pneumonia Acute hypoxic respiratory failure on presentation Episode of chest pain on presentation, cardiology consultation requested Underlying history of coronary artery disease with history of myocardial infarction in the past Underlying history of diabetes mellitus type 2 History of hypertension Underlying history of hyperlipidemia Underlying history of fibromyalgia Underlying history of obstructive sleep apnea maintained on CPAP at home Mental status changes on presentation with somnolence and confusion, improved at this time Underlying history of uterine and ovarian cancer status post total hysterectomy Underlying history of depression and anxiety disorder Possible multiple sclerosis, patient recently started evaluation by neurologist Dr. Strange DVT prophylaxis Lovenox. GI prophylaxis Pepcid Pulmonary and cardiology services following Patient remains on IV antibiotics Patient maintained a Medrol Dosepak Dobutamine stress test attempted on 01/17/2022 been unable to be completed his elevated blood pressure Blood pressure medications increased per cardiology
[2022-01-17 13:11] VITALS: BMI 35.3
[2022-01-17 15:00] VITALS: BP 135/71; PULSE 80; RESP 17; TEMP 98.3
[2022-01-17] MEDS ORDERED: NON FORMULARY DRUG (Dulaglutide [Trulicity] 1.5 MG/0.5 ML Each) SQ SCH (21:00)
[2022-01-17] MEDS ORDERED: ASPIRIN 81 MG PO SCH (21:00)
[2022-01-18] MEDS ORDERED: amLODIPine 10 MG TAB PO SCH (09:00)
--- NOTE | 2022-01-24 10:44 | P.DS ---
Providers Date of admission: 01/16/22 09:19 Expected date of discharge: 01/17/22 Attending physician: Evin Sanchez Consults: 01/15/22 21:03 Consult Physician Routine Consulting Provider: Curt Jasso Consult Reason/Comments: cp, sob Do you want consulting provider notified?: Yes 01/16/22 11:38 Consult Physician Routine Consulting Provider: Isrrael Thomas Consult Reason/Comments: shortness of breath Do you want consulting provider notified?: Yes Primary care physician: Dagmar [facility] Course: Discharge diagnosis Right middle lobe infiltrate suggestive of pneumonia Acute hypoxic respiratory failure on presentation Episode of chest pain on presentation, cardiology consultation requested Underlying history of coronary artery disease with history of myocardial infarction in the past Underlying history of diabetes mellitus type 2 History of hypertension Underlying history of hyperlipidemia Underlying history of fibromyalgia Underlying history of obstructive sleep apnea maintained on CPAP at home Mental status changes on presentation with somnolence and confusion, improved at this time Underlying history of uterine and ovarian cancer status post total hysterectomy Underlying history of depression and anxiety disorder Possible multiple sclerosis, patient recently started evaluation by neurologist Dr. Strange [facility] [place] Leticia Langley, is a 51-year-old female who presented to [facility] emergency room due to chest pain, cough and mental status changes with increased somnolence She was evaluated in the emergency room vital examination on presentation revealed a temperature of 97.6 pulse 69 respiration 18 blood pressure 137/75 pulse ox 92% on room air Laboratory data reveals a white blood count of 12.8 hemoglobin 8.9 platelet count 329 d-dimer 0.21 sodium 135 potassium 3.9 chloride 106 CO2 22 BUN 25 creatinine 0.95 magnesium 1.5 influenza A and B and COVID-19 PCR were negative Testing in the emergency room revealed computed tomography scan of the brain without contrast was done in the emergency room and revealed no acute intracranial hemorrhage or gross acute cortical infarct no gross space-occupying lesion stable chronic findings with left basal ganglia chronic infarct and left estevez radiata and left centrum semiovale hypodensity, stable from previous exam. Patient was admitted to medical floor for further evaluation and treatment, cardiology consultation and pulmonary consultation was requested. Past medical history is significant for history of hypertension, history of diabetes mellitus type 2, history of hyperlipidemia, history of coronary artery disease with myocardial infarction in the past, history of CVA, history of obstructive sleep apnea with CPAP at home, history of fibromyalgia, history of possible multiple sclerosis patient recently started seen a neurologist. History of tobacco abuse On 01/17/2022 patient is alert and oriented 3. Patient was supposed to undergo debridement stress test but unable to be completed due to elevated blood pressure. Blood pressure medications have been adjusted per cardiology Norvasc increased to 10 mg and clonidine 0.1 mg 3 times a day was added. We'll continue to monitor blood pressure. Patient remains on azithromycin and Medrol dosepak pulmonary cardiology services are following. At this time patient denies chest pain or shortness breath. Patient denies nausea vomiting or diarrhea. Patient denies any urinary burning or frequency Patient has been cleared for discharge home. Patient will be DC'd on Norvasc dosepak and azithromycin patient to follow-up with PCP and consulting providers for further management Patient Condition at Discharge: Fair Plan - Discharge Summary Discharge Rx Participant: No New Discharge Prescriptions: New methylPREDNISolone Dose Pack [Medrol Dose Pack] 4 mg PO DIRECTED #21 tab Azithromycin [Zithromax] 500 mg PO DAILY 3 Days #3 tab methylPREDNISolone Dose Pack [Medrol Dose Pack] 24 mg PO DAILY tab amLODIPine [Norvasc] 10 mg PO DAILY 30 Days #30 tab Continue Citalopram Hydrobromide [CeleXA] 40 mg PO DAILY #1 tab Pregabalin [Lyrica] 150 mg PO BID lamoTRIgine 200 mg PO BID Magnesium Gluconate [Magonate] 500 mg PO HS Nitroglycerin Sl Tabs [Nitrostat] 0.4 mg SL Q5M PRN PRN Reason: Chest Pain Enalapril [Vasotec] 10 mg PO BID Aspirin [Adult Low Dose Aspirin EC] 81 mg PO HS DULoxetine HCL [Cymbalta] 60 mg PO DAILY Isosorbide Mononitrate ER [Imdur] 60 mg PO DAILY Carvedilol [Coreg] 25 mg PO BID Vitamin B Complex 1 cap PO HS Morphine Sulfate [Ms Contin] 15 mg PO DAILY PRN PRN Reason: Severe Pain Insulin Glargine,Hum.rec.anlog [Lantus Solostar Pen] 45 unit SQ BID ARIPiprazole [Abilify] 2 mg PO DAILY Clopidogrel [Plavix] 75 mg PO HS ALPRAZolam [Xanax] 1 mg PO BID metFORMIN HCL [Glucophage] 1,000 mg PO HS hydroCHLOROthiazide [Hydrodiuril] 25 mg PO DAILY tab Dulaglutide [Trulicity] 1.5 mg SQ WE Atorvastatin [Lipitor] 40 mg PO DAILY Cholecalciferol (Vitamin D3) [Vitamin D3 (125 MCG = 5,000 IU)] 125 mcg PO HS HYDROcodone/APAP 7.5-325MG [[place] 7.5-325] 1 tab PO HS metFORMIN HCL [Glucophage] 500 mg PO DAILY Ketorolac [Toradol] 10 mg PO Q8H PRN PRN Reason: Pain Prochlorperazine [Compazine] 10 mg PO TID PRN PRN Reason: Nausea And Vomiting Albuterol Nebulized [Ventolin Nebulized] 2.5 mg INHALATION RT-QID PRN PRN Reason: Shortness Of Breath Methyl Folate 800mcg 1 tab PO BID Famotidine 20 mg PO DAILY Promethazine [Phenergan] 25 mg PO Q6H PRN PRN Reason: Nausea Discontinued amLODIPine [Norvasc] 5 mg PO DAILY tab predniSONE See Taper PO DAILY Discharge Medication List Citalopram Hydrobromide [CeleXA] 40 mg PO DAILY #1 tab 03/10/15 [Rx] Pregabalin [Lyrica] 150 mg PO BID 06/25/15 [History] lamoTRIgine 200 mg PO BID 07/30/16 [History] Magnesium Gluconate [Magonate] 500 mg PO HS 03/27/17 [History] Aspirin [Adult Low Dose Aspirin EC] 81 mg PO HS 11/26/17 [History] Enalapril [Vasotec] 10 mg PO BID 11/26/17 [History] Nitroglycerin Sl Tabs [Nitrostat] 0.4 mg SL Q5M PRN 11/26/17 [History] DULoxetine HCL [Cymbalta] 60 mg PO DAILY 08/25/18 [History] Isosorbide Mononitrate ER [Imdur] 60 mg PO DAILY 09/08/18 [History] Carvedilol [Coreg] 25 mg PO BID 01/22/19 [History] Vitamin B Complex 1 cap PO HS 06/23/19 [History] Morphine Sulfate [Ms Contin] 15 mg PO DAILY PRN 08/11/19 [History] ARIPiprazole [Abilify] 2 mg PO DAILY 11/08/20 [History] Clopidogrel [Plavix] 75 mg PO HS 11/08/20 [History] Insulin Glargine,Hum.rec.anlog [Lantus Solostar Pen] 45 unit SQ BID 11/08/20 [History] ALPRAZolam [Xanax] 1 mg PO BID 07/31/21 [History] Albuterol Nebulized [Ventolin Nebulized] 2.5 mg INHALATION RT-QID PRN 07/31/21 [History] Atorvastatin [Lipitor] 40 mg PO DAILY 07/31/21 [History] Cholecalciferol (Vitamin D3) [Vitamin D3 (125 MCG = 5,000 IU)] 125 mcg PO HS 07/31/21 [History] HYDROcodone/APAP 7.5-325MG [[place] 7.5-325] 1 tab PO HS 07/31/21 [History] Ketorolac [Toradol] 10 mg PO Q8H PRN 07/31/21 [History] Prochlorperazine [Compazine] 10 mg PO TID PRN 07/31/21 [History] metFORMIN HCL [Glucophage] 1,000 mg PO HS 07/31/21 [History] metFORMIN HCL [Glucophage] 500 mg PO DAILY 07/31/21 [History] hydroCHLOROthiazide [Hydrodiuril] 25 mg PO DAILY tab 08/03/21 [Rx] Dulaglutide [Trulicity] 1.5 mg SQ WE 01/15/22 [History] Famotidine 20 mg PO DAILY 01/15/22 [History] Methyl Folate 800mcg 1 tab PO BID 01/15/22 [History] Promethazine [Phenergan] 25 mg PO Q6H PRN 01/15/22 [History] Azithromycin [Zithromax] 500 mg PO DAILY 3 Days #3 tab 01/17/22 [Rx] amLODIPine [Norvasc] 10 mg PO DAILY 30 Days #30 tab 01/17/22 [Rx] methylPREDNISolone Dose Pack [Medrol Dose Pack] 4 mg PO DIRECTED #21 tab 01/17/22 [Rx] methylPREDNISolone Dose Pack [Medrol Dose Pack] 24 mg PO DAILY tab 01/17/22 [Rx] Follow up Appointment(s)/Referral(s): Isrrael Thomas MD [STAFF PHYSICIAN] - 01/29/22 10:45 am Curt Jasso MD [STAFF PHYSICIAN] - 01/25/22 9:15 am Patient Instructions/Handouts: Chest Pain (DC), How to Stop Smoking (DC) Discharge Disposition: HOME SELF-CARE
== END 2022-01-17 16:30 | disposition home or self-care (01) ==
LOC: EC 13:04 → 6NMEDSUR 20:54 → OBSVTOIN 01-16 09:19 → INTOOBSV 01-16 09:19 → 6NMEDSUR 01-16 15:12 → UNDODISIN 01-17 16:30
PROVIDERS: ADMIT Internal Medicine; ATTEND Internal Medicine
DX: R91.8 Other nonspecific abnormal finding of lung field (principal); J96.01 Acute respiratory failure with hypoxia; I25.10 Atherosclerotic heart disease of native coronary artery without angina pectoris; I25.2 Old myocardial infarction; I10 Essential (primary) hypertension; E78.5 Hyperlipidemia, unspecified; M79.7 Fibromyalgia; G47.33 Obstructive sleep apnea (adult) (pediatric); F32.A Depression, unspecified; F41.9 Anxiety disorder, unspecified; Z20.822 Contact with and (suspected) exposure to COVID-19; Z85.43 Personal history of malignant neoplasm of ovary; Z90.710 Acquired absence of both cervix and uterus; K21.9 Gastro-esophageal reflux disease without esophagitis; F17.200 Nicotine dependence, unspecified, uncomplicated; E66.9 Obesity, unspecified; D68.51 Activated protein C resistance; Z68.35 Body mass index [BMI] 35.0-35.9, adult; R07.2 Precordial pain; I45.10 Unspecified right bundle-branch block; R07.89 Other chest pain; J44.1 Chronic obstructive pulmonary disease with (acute) exacerbation; J96.92 Respiratory failure, unspecified with hypercapnia; I69.351 Hemiplegia and hemiparesis following cerebral infarction affecting right dominant side; R26.9 Unspecified abnormalities of gait and mobility; M79.89 Other specified soft tissue disorders; D64.9 Anemia, unspecified; E11.65 Type 2 diabetes mellitus with hyperglycemia; T38.0X5A Adverse effect of glucocorticoids and synthetic analogues, initial encounter; G25.81 Restless legs syndrome; J96.12 Chronic respiratory failure with hypercapnia; Z86.718 Personal history of other venous thrombosis and embolism; Z85.41 Personal history of malignant neoplasm of cervix uteri; Z86.711 Personal history of pulmonary embolism; Z90.49 Acquired absence of other specified parts of digestive tract; Z95.5 Presence of coronary angioplasty implant and graft; Z79.899 Other long term (current) drug therapy; Z79.82 Long term (current) use of aspirin; Z79.4 Long term (current) use of insulin; Z79.84 Long term (current) use of oral hypoglycemic drugs; Z79.891 Long term (current) use of opiate analgesic; Z79.01 Long term (current) use of anticoagulants; Z88.2 Allergy status to sulfonamides; Z91.041 Radiographic dye allergy status; Z91.018 Allergy to other foods; Z91.013 Allergy to seafood; Z82.49 Family history of ischemic heart disease and other diseases of the circulatory system; Z83.3 Family history of diabetes mellitus; Z82.5 Family history of asthma and other chronic lower respiratory diseases; Z80.0 Family history of malignant neoplasm of digestive organs
CPT/HCPCS: 96376 ×3; 96372 ×2; 96368; 96361 ×2; 96365; 96366 ×2; 96367; 96375 ×2; 99285; 36415; 94640 ×4; 36600; 94760; 93005; 93306; 85379; 83880; 80053 ×3; 82140; 82805; 83605; 83735; 84100; 84443; 84484 ×2; 85025 ×3; 85610; 85730; 81001; 87040; 84145; 87636; 71045; 71046 ×2; 70450; G0378 ×3; J1940; J2310; J2930 ×2; J0456 ×2; J1650 ×2; J0696 ×2; J7509; C9113 ×2

== ENCOUNTER → 2022-02-07 | Outpatient (CLI) | payer OTHER ==
[~2022-02-07] MED LIST changes: -INSULIN ASPART (NovoLOG) 100 UNIT/ML VIAL SQ ONE; +REGADENOSON 0.4 MG/5 ML SYRINGE IV PRN; -SODIUM CHLORIDE 0.9% 1,000 ML IV SCH
--- NOTE | 2022-02-07 12:08 | P.STRESS ---
- Stress Test Note Stress Test Results/Findings: Exam Performed: NM stress lexiscan cardiolite Exam Date: 02/07/22 Reason for Exam: Chest Pain Height: 5 ft 6 in Weight: 97.976 kg Protocol: Lexiscan Stage: na Duration of Exercise: na Resting Heart Rate: 77 Resting Blood Pressure: 139/70 Maximum Achieved Heart Rate: 86 Maximum Achieved Blood Pressure: 139/70 85% PMHR: 145 100% PMHR: 170 METS: na Technologist Comment: Stress Test Results/Findings: At baseline EKG showed normal sinus rhythm, normal axis, right bundle branch block without significant ST or T-wave abnormalities. Patient recieved IV infusion of Lexiscan 0.4mg and at peak infusion EKG showed no significant change from baseline. Conclusions: 1. Normal EKG response to Lexiscan infusion 2. Nuclear imaging to be reported separately.
--- NOTE | 2022-02-07 16:25 | NM ---
EXAMINATION TYPE: NM stress lexiscan cardiolite DATE OF EXAM: 02/07/2022 COMPARISON: NONE HISTORY: R07.2 precordial pain TECHNIQUE: After the intravenous administration of 9 mCi Tc 99m Sestamibi - Cardiolite resting SPECT images acquired 50 minutes post injection. At peak stress 24.3 mCi Tc 99m Sestamibi - Stress images obtained 30 minutes post injection The patient was stressed with 0.4mg Lexiscan. FINDINGS: No fixed defects are evident No reversible stress defects on Spect images Wall motion is normal. There may be some ventriculomegaly. Ejection fraction is calculated to be 45 %, which is low. Normal greater than 50%. IMPRESSION: 1. No stress-induced ischemic changes. 2. Suggestion of ventriculomegaly with low ejection fraction of 45%.
--- NOTE | 2022-02-08 09:13 | ECHOS ---
Stress Test Results/Findings: Exam Performed: NM stress lexiscan cardiolite Exam Date: 02/07/22 Reason for Exam: Chest Pain Height: 5 ft 6 in Weight: 97.976 kg Protocol: Lexiscan Stage: na Duration of Exercise: na Resting Heart Rate: 77 Resting Blood Pressure: 139/70 Maximum Achieved Heart Rate: 86 Maximum Achieved Blood Pressure: 139/70 85% PMHR: 145 100% PMHR: 170 METS: na Technologist Comment: Stress Test Results/Findings: At baseline EKG showed normal sinus rhythm, normal axis, right bundle branch block without significant ST or T-wave abnormalities. Patient received IV infusion of Lexiscan 0.4mg and at peak infusion EKG showed no significant change from baseline. Conclusions: 1. Normal EKG response to Lexiscan infusion 2. Nuclear imaging to be reported separately. MTDD
== END | disposition home or self-care (01) ==
LOC: RADNMMAIN 08:51
PROVIDERS: ATTEND Internal Medicine Cardiovascular Disease
DX: R07.2 Precordial pain (principal); R07.9 Chest pain, unspecified
CPT/HCPCS: 93017; 78452; A9500; J2785

== ENCOUNTER 2022-03-10 14:09 | Emergency (ER) | payer OTHER ==
[2022-03-10 14:32] VITALS: TEMP 98.6
[2022-03-10] MEDS ORDERED: MORPHINE SULFATE 4 MG/ML SYRINGE IV STA (15:49)
[2022-03-10] MEDS ORDERED: ONDANSETRON 4 MG/2 ML VIAL IVP STA ×2 (15:49→19:49)
[2022-03-10] MEDS ORDERED: SODIUM CHLORIDE 0.9% 2,000 ML IV STA (15:49)
[2022-03-10] MEDS ORDERED: methylPREDNISolone SOD SUCCI 125 MG/2 ML VIAL IV STA (15:51)
[2022-03-10] MEDS ORDERED: FAMOTIDINE 20 MG/2 ML VIAL IV STA (15:51)
[2022-03-10] MEDS ORDERED: diphenhydrAMINE 50 MG/ML 1 ML VIAL IVP STA (15:51)
[2022-03-10 16:30] LABS: Anisocytosis Slight; Basophils # (A) 0.1 k/uL (0-0.2); Basophils % (A) 1 %; Eosinophils # (A) 0.2 k/uL (0-0.7); Eosinophils % (A) 2 %; HCT 32.6 % (34.0-46.0); HGB 9.8 gm/dL (11.4-16.0); Hypochromasia Marked; Lymphocytes # (A) 2.2 k/uL (1.0-4.8); Lymphocytes % (A) 20 %; MCH 22.6 pg (25.0-35.0); MCHC 30.1 g/dL (31.0-37.0); MCV 75.1 fL (80.0-100.0); Mean Platelet Volume 7.7; Microcytosis Moderate; Monocytes # (A) 0.5 k/uL (0-1.0); Monocytes % (A) 5 %; Neutrophils # (A) 7.6 k/uL (1.3-7.7); Neutrophils % (A) 71 %; Platelet Count 334 k/uL (150-450); RBC 4.34 m/uL (3.80-5.40); RDW 18.4 % (11.5-15.5); WBC 10.7 k/uL (3.8-10.6)
[2022-03-10 16:38] LABS: Potassium 3.7 mmol/L (3.5-5.1)
[2022-03-10 16:39] LABS: Albumin 3.6 g/dL (3.5-5.0); Calcium 9.5 mg/dL (8.4-10.2); Total Bilirubin 0.5 mg/dL (0.2-1.3); Total Protein 6.2 g/dL (6.3-8.2)
--- NOTE | 2022-03-10 17:24 | CT ---
EXAMINATION TYPE: CT abdomen pelvis w con DATE OF EXAM: 03/10/2022 COMPARISON: 08/11/2019 HISTORY: abdominal pain, nausea, vomiting CT DLP: 1752.4 mGycm Automated exposure control for dose reduction was used. CONTRAST: Performed with IV Contrast, patient injected with 80cc mL of Isovue 300. Images obtained from the diaphragm to the floor the pelvis with IV contrast. Lung bases are clear. No pleural effusion. Heart size is normal. No pericardial effusion. Liver splee n and stomach appear intact. Bile ducts are nondilated. There is no pancreatic mass. There are clips from cholecystectomy. Liver is enlarged and measures 21 cm. There is no adrenal mass. Kidneys show satisfactory contrast opacification. There is no hydronephrosi s. There is moderate atherosclerotic vascular calcification for the patient's age. There is no retrop eritoneal adenopathy. Ureters are not dilated. Bladder distends smoothly. No inguinal hernia. No free fluid in the pelvis. There is no mesenteric edema. No ascites or free air. Lumbar vertebra have normal alignment. Posterior elements are intact. No compression fracture. The [place] pelvis is intact. Hip joints are intact. No evidence of a bowel obstruction. Appendix extends superiorly and appears normal. No adverse change. IMPRESSION: Moderate atherosclerotic vascular disease. Hepatomegaly. No acute abnormality in the abdomen pelvis.
[2022-03-10] MEDS ORDERED: DICYCLOMINE 10 MG/ML 2 ML AMP IM STA (17:46)
[2022-03-10 18:38] LABS: Appearance,Urine Clear (Clear); Bilirubin,Urine Negative (Negative); Blood,Urine Negative (Negative); Color,Urine Light Yellow; Glucose,Urine (UA) Trace (Negative); Ketones,Urine Negative (Negative); Leukocyte Esterase,Urine Negative (Negative); Mucus,Urine Rare /hpf; Nitrite,Urine Negative (Negative); PH, Urine 6.5 (5.0-8.0); Protein,Urine 3+ (Negative); Specific Gravity,Urine 1.014 (1.001-1.035); Squamous Epithelial Cell,Urine 1 /hpf (0-4); Urobilinogen,Urine <2.0 mg/dL (<2.0); WBC,Urine 1 /hpf (0-5)
--- NOTE | 2022-03-10 19:43 | ED ---
Nausea/Vomiting/Diarrhea HPI - General Chief complaint: Nausea/Vomiting/Diarrhea Stated complaint: Vomiting Time Seen by Provider: 03/10/22 15:38 Source: patient Mode of arrival: wheelchair Limitations: no limitations - History of Present Illness Initial comments: Patient is a 51-year-old female who reports to the emergency department with a chief complaint of nausea and vomiting for one week. Patient states she is unable to tolerate food and liquid. Patient also endorses intermittent lower abdominal pain. She is having normal bowel movements, nonbloody. Last bowel movement was yesterday. She denies fever and chills. Denies upper respiratory symptoms. Denies burning with urination and blood in the urine. Denies chest pain and SOB. Reports history of cholecystectomy. Denies history of bowel obstruction. - Related Data Home Medications Medication Instructions Recorded Confirmed Pregabalin [Lyrica] 150 mg PO BID 06/25/15 01/15/22 lamoTRIgine 200 mg PO BID 07/30/16 01/15/22 Magnesium Gluconate [Magonate] 500 mg PO HS 03/27/17 01/15/22 Aspirin [Adult Low Dose Aspirin EC] 81 mg PO HS 11/26/17 01/15/22 Enalapril [Vasotec] 10 mg PO BID 11/26/17 01/15/22 DULoxetine HCL [Cymbalta] 60 mg PO DAILY 08/25/18 01/15/22 Isosorbide Mononitrate ER [Imdur] 60 mg PO DAILY 09/08/18 01/15/22 Carvedilol [Coreg] 25 mg PO BID 01/22/19 01/15/22 ARIPiprazole [Abilify] 2 mg PO DAILY 11/08/20 01/15/22 Clopidogrel [Plavix] 75 mg PO HS 11/08/20 01/15/22 Insulin Glargine,Hum.rec.anlog 45 unit SQ BID 11/08/20 01/15/22 [Lantus Solostar Pen] ALPRAZolam [Xanax] 1 mg PO BID 07/31/21 01/15/22 Atorvastatin [Lipitor] 40 mg PO DAILY 07/31/21 01/15/22 Cholecalciferol (Vitamin D3) 125 mcg PO HS 07/31/21 01/15/22 [Vitamin D3 (125 MCG = 5,000 IU)] HYDROcodone/APAP 7.5-325MG [[place] 1 tab PO HS 07/31/21 01/15/22 7.5-325] metFORMIN HCL [Glucophage] 1,000 mg PO HS 07/31/21 01/15/22 metFORMIN HCL [Glucophage] 500 mg PO DAILY 07/31/21 01/15/22 Famotidine 20 mg PO DAILY 01/15/22 01/15/22 Dulaglutide [Trulicity] 3 mg SQ WE 03/10/22 03/10/22 Insulin Aspart [NovoLOG Flexpen] See Protocol SQ DAILY PRN 03/10/22 03/10/22 Previous Rx's Medication Instructions Recorded Citalopram Hydrobromide [CeleXA] 40 mg PO DAILY #1 tab 03/10/15 hydroCHLOROthiazide [Hydrodiuril] 25 mg PO DAILY tab 08/03/21 amLODIPine [Norvasc] 10 mg PO DAILY 30 Days #30 tab 01/17/22 Ondansetron Odt [Zofran Odt] 4 mg PO Q8HR PRN #21 tab 03/10/22 Allergies Allergy/AdvReac Type Severity Reaction Status Date / Time Fish Containing Products Allergy Anaphylaxis Verified 03/10/22 17:27 Iodinated Contrast Media Allergy Anaphylaxis Verified 03/10/22 17:27 [Iodinated Contrast Media - IV Dye] Sulfa (Sulfonamide Allergy Anaphylaxis Verified 03/10/22 17:27 Antibiotics) sulfamethoxazole Allergy Anaphylaxis Verified 03/10/22 17:27 [From Septra] tree nut [Nut] Allergy Anaphylaxis Verified 03/10/22 17:27 trimethoprim [From Septra] Allergy Anaphylaxis Verified 03/10/22 17:27 Review of Systems ROS Statement: Those systems with pertinent positive or pertinent negative responses have been documented in the HPI. ROS Other: All systems not noted in ROS Statement are negative. 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 Last Myocardial Infarction Date:: Pt thinks 2015 History of Any Multi-Drug Resistant Organisms: None Reported Past Surgical History: Section, Cholecystectomy, Heart Catheterization With Stent, Hysterectomy, Tubal Ligation, Uterine Ablation Additional Past Surgical History / Comment(s): vein stripping right leg, radio frequency ablation of right back-02/22/2015, four stents on 04/03/16 and one on march 05, ovaries removed, colonscopy- polyp removal Past Anesthesia/Blood Transfusion Reactions: Motion Sickness Additional Past Anesthesia/Blood Transfusion Reaction / Comment(s): mild claustrophobia Date of Last Stent Placement:: 04/03/16 Past Psychological History: Anxiety, Depression Smoking Status: Current every day smoker Past Alcohol Use History: None Reported Past Drug Use History: None Reported - Past Family History Father Family Medical History: Congestive Heart Failure (CHF), Coronary Artery Disease (CAD), Diabetes Mellitus Mother Family Medical History: Cancer, COPD, Hypertension, Respiratory Disorder Additional Family Medical History / Comment(s): emphysema, colon CA General Exam Limitations: no limitations General appearance: alert, in no apparent distress Head exam: Present: atraumatic, normocephalic, normal inspection Eye exam: Present: normal appearance, PERRL, EOMI. Absent: scleral icterus, conjunctival injection, periorbital swelling Respiratory exam: Present: normal lung sounds bilaterally. Absent: respiratory distress, wheezes, rales, rhonchi, stridor Cardiovascular Exam: Present: regular rate, normal rhythm, normal heart sounds. Absent: systolic murmur, diastolic murmur, rubs, gallop, clicks GI/Abdominal exam: Present: soft, tenderness (Moderate in left lower quadrant and right lower quadrant), normal bowel sounds. Absent: distended, guarding, rebound, rigid Neurological exam: Present: alert, oriented X3, CN II-XII intact Psychiatric exam: Present: normal affect, normal mood Skin exam: Present: warm, dry, intact, normal color. Absent: rash Course Vital Signs 03/10/22 03/10/22 14:29 19:45 Temperature 98.6 F Pulse Rate 78 86 Respiratory 18 16 Rate Blood Pressure 128/70 153/91 O2 Sat by Pulse 99 Oximetry Medical Decision Making - Medical Decision Making This is a 51-year-old female presents with intractable nausea/vomiting and lower abdominal pain. Thorough history and examination were performed. Patient is well-appearing and in no apparent distress. She is afebrile. The abdomen is s oft. There is moderate tenderness in the left and right lower quadrant. No fever or chills. Normal bowel movements. With patient's consistent nausea and vomiting and tenderness on physical exam, acute abdominal process cannot be excluded. I will obtain laboratory studies and CT of the abdomen and pelvis with contrast. Laboratory studies are relatively unremarkable. Creatinine is mildly elevated at 1.20, likely due to dehydration. Patient given large fluid bolus. CT of the abdomen and pelvis is negative for acute process. Patient controlled with morphine and Bentyl. Patient given Zofran for nausea. She is able to tolerate crackers and peanut butter in the emergency department. This appears to be a viral gastroenteritis. Patient will be discharged with Zofran prescription. She is encouraged to increase fluid intake as tolerated and follow up with her primary care provider in one to 2 days. Return parameters discussed. Patient verbalizes understanding and is agreeable to this plan. Dr. Perkins is my attending. - Lab Data Result diagrams: 03/10/22 16:20 03/10/22 16:20 Lab Results 03/10/22 03/10/22 03/10/22 Range/Units 16:20 16:20 16:20 WBC 10.7 H (3.8-10.6) k/uL RBC 4.34 (3.80-5.40) m/uL Hgb 9.8 L (11.4-16.0) gm/dL Hct 32.6 L (34.0-46.0) % MCV 75.1 L (80.0-100.0) fL MCH 22.6 L (25.0-35.0) pg MCHC 30.1 L (31.0-37.0) g/dL RDW 18.4 H (11.5-15.5) % Plt Count 334 (150-450) k/uL MPV 7.7 Neutrophils % 71 % Lymphocytes % 20 % Monocytes % 5 % Eosinophils % 2 % Basophils % 1 % Neutrophils # 7.6 (1.3-7.7) k/uL Lymphocytes # 2.2 (1.0-4.8) k/uL Monocytes # 0.5 (0-1.0) k/uL Eosinophils # 0.2 (0-0.7) k/uL Basophils # 0.1 (0-0.2) k/uL Hypochromasia Marked Anisocytosis Slight Microcytosis Moderate Sodium 138 (137-145) mmol/L Potassium 3.7 (3.5-5.1) mmol/L Chloride 102 (98-107) mmol/L Carbon Dioxide 28 (22-30) mmol/L Anion Gap 8 mmol/L BUN 16 (7-17) mg/dL Creatinine 1.20 H (0.52-1.04) mg/dL Est GFR (CKD-EPI)AfAm 61 (>60 ml/min/1.73 sqM) Est GFR (CKD-EPI)NonAf 53 (>60 ml/min/1.73 sqM) Glucose 170 H (74-99) mg/dL Calcium 9.5 (8.4-10.2) mg/dL Total Bilirubin 0.5 (0.2-1.3) mg/dL AST 18 (14-36) U/L ALT 14 (4-34) U/L Alkaline Phosphatase 129 H (38-126) U/L Total Protein 6.2 L (6.3-8.2) g/dL Albumin 3.6 (3.5-5.0) g/dL Lipase 79 (23-300) U/L Urine Color Light Yellow Urine Appearance Clear (Clear) Urine pH 6.5 (5.0-8.0) Ur Specific [place] 1.014 (1.001-1.035) Urine Protein 3+ H (Negative) Urine Glucose (UA) Trace H (Negative) Urine Ketones Negative (Negative) Urine Blood Negative (Negative) Urine Nitrite Negative (Negative) Urine Bilirubin Negative (Negative) Urine Urobilinogen <2.0 (<2.0) mg/dL Ur Leukocyte Esterase Negative (Negative) Urine WBC 1 (0-5) /hpf Ur Squamous Epith Cells 1 (0-4) /hpf Urine Mucus Rare H (None) /hpf Disposition Clinical Impression: Lower abdominal pain, Nausea and vomiting Disposition: HOME SELF-CARE Condition: Good Instructions (If sedation given, give patient instructions): Acute Nausea and Vomiting (ED), Abdominal Pain (ED) Additional Instructions: Please take medication as directed. Follow-up with primary care provider in one to 2 days. Return to the emergency department if you experience new, con cerning, or worsening symptoms. Prescriptions: Ondansetron Odt [Zofran Odt] 4 mg PO Q8HR PRN #21 tab PRN Reason: Nausea Is patient prescribed a controlled substance at d/c from ED?: No Referrals: Dagmar Hennessy MD [Primary Care Provider] - 1-2 days Time of Disposition: 19:43
[2022-03-10 19:47] VITALS: BP 153/91; PULSE 86; RESP 16
== END 2022-03-10 20:21 | disposition home or self-care (01) ==
LOC: EC 14:09
DX: R11.2 Nausea with vomiting, unspecified (principal); I25.10 Atherosclerotic heart disease of native coronary artery without angina pectoris; Z79.1 Long term (current) use of non-steroidal anti-inflammatories (NSAID); I10 Essential (primary) hypertension; I25.2 Old myocardial infarction; K21.9 Gastro-esophageal reflux disease without esophagitis; Z91.013 Allergy to seafood; Z79.83 Long term (current) use of bisphosphonates; Z88.2 Allergy status to sulfonamides; Z88.1 Allergy status to other antibiotic agents
CPT/HCPCS: 99284; 96374; 96375; 96361; 96372; 36415; 80053; 83690; 85025; 81001; 74177; J2270; J1200; J0500; J2930; J2405; Q9967

== ENCOUNTER 2022-03-14 17:10 | Observation (INO) | payer OTHER ==
[2022-03-14 17:37] VITALS: RESP 18; TEMP 98.6
[2022-03-14] MEDS ORDERED: MORPHINE SULFATE 4 MG/ML SYRINGE IV STA (17:42)
[2022-03-14] MEDS ORDERED: SODIUM CHLORIDE 0.9% 2,000 ML IV STA (17:42)
--- NOTE | 2022-03-14 18:02 | XR ---
EXAMINATION TYPE: XR chest 2V DATE OF EXAM: 03/14/2022 COMPARISON: 01/29/2022 HISTORY: Weakness TECHNIQUE: Frontal and lateral views of the chest are obtained. FINDINGS: There is no focal air space opacity, pleural effusion, or pneumothorax seen. The cardiac silhouette size is within normal limits. The osseous structures are intact. IMPRESSION: No acute cardiopulmonary process.
[2022-03-14 18:09] LABS: Anisocytosis Slight; Basophils # (A) 0.1 k/uL (0-0.2); Basophils % (A) 1 %; Eosinophils # (A) 0.3 k/uL (0-0.7); Eosinophils % (A) 2 %; HCT 35.9 % (34.0-46.0); HGB 10.5 gm/dL (11.4-16.0); Hypochromasia Marked; Lymphocytes # (A) 1.9 k/uL (1.0-4.8); Lymphocytes % (A) 15 %; MCH 22.2 pg (25.0-35.0); MCHC 29.3 g/dL (31.0-37.0); Mean Platelet Volume 7.8; Microcytosis Slight; Monocytes # (A) 0.6 k/uL (0-1.0); Monocytes % (A) 4 %; Neutrophils # (A) 9.5 k/uL (1.3-7.7); Neutrophils % (A) 76 %; Platelet Count 328 k/uL (150-450); RBC 4.72 m/uL (3.80-5.40); WBC 12.5 k/uL (3.8-10.6)
[2022-03-14 18:16] LABS: Albumin 3.6 g/dL (3.5-5.0); Calcium 8.7 mg/dL (8.4-10.2); Potassium 3.8 mmol/L (3.5-5.1); Total Bilirubin 0.2 mg/dL (0.2-1.3); Total Protein 6.1 g/dL (6.3-8.2)
--- NOTE | 2022-03-14 19:24 | ED ---
Nausea/Vomiting/Diarrhea HPI - General Chief complaint: Nausea/Vomiting/Diarrhea Stated complaint: weakness Time Seen by Provider: 03/14/22 17:25 Source: patient, EMS Mode of arrival: EMS Limitations: no limitations - History of Present Illness Initial comments: Patient is a 51-year-old female who presents to the emergency department with a chief complaint of nausea and vomiting. Patient was evaluated by me in the emergency department on 03/10/22 for similar symptoms. At this time patient had intractable nausea and vomiting and lower abdominal pain. Patient had right lower quadrant tenderness, no fever. CT of the abdomen and pelvis was negative f or acute abdominal process including appendicitis. 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 Patient states she has continued to feel the intermittent abdominal pain, States she is still unable to tolerate food or liquid without vomiting. Patient states she has stopped eating and drinking due to the nausea and vomiting. Her last dose of Zofran was 2 days ago. Patient states she feels weak from not eating or drinking. States she was given Zofran in the ambulance. She is not nauseous currently. Denies chest pain or shortness of breath. Denies burning with urination or blood in the urine. - Related Data Home Medications Medication Instructions Recorded Confirmed Pregabalin [Lyrica] 150 mg PO BID 06/25/15 03/14/22 lamoTRIgine 200 mg PO BID 07/30/16 03/14/22 Magnesium Gluconate [Magonate] 500 mg PO HS 03/27/17 03/14/22 Aspirin [Adult Low Dose Aspirin EC] 81 mg PO HS 11/26/17 03/14/22 Enalapril [Vasotec] 10 mg PO BID 11/26/17 03/14/22 DULoxetine HCL [Cymbalta] 60 mg PO DAILY 08/25/18 03/14/22 Isosorbide Mononitrate ER [Imdur] 60 mg PO DAILY 09/08/18 03/14/22 Carvedilol [Coreg] 25 mg PO BID 01/22/19 03/14/22 ARIPiprazole [Abilify] 2 mg PO DAILY 11/08/20 03/14/22 Clopidogrel [Plavix] 75 mg PO HS 11/08/20 03/14/22 Insulin Glargine,Hum.rec.anlog 30 unit SQ BID 11/08/20 03/14/22 [Lantus Solostar Pen] ALPRAZolam [Xanax] 2 mg PO DAILY 07/31/21 03/14/22 Atorvastatin [Lipitor] 40 mg PO DAILY 07/31/21 03/14/22 Cholecalciferol (Vitamin D3) 125 mcg PO HS 07/31/21 03/14/22 [Vitamin D3 (125 MCG = 5,000 IU)] HYDROcodone/APAP 7.5-325MG [[place] 1 tab PO TID 07/31/21 03/14/22 7.5-325] metFORMIN HCL [Glucophage] 1,000 mg PO HS 07/31/21 03/14/22 metFORMIN HCL [Glucophage] 500 mg PO DAILY 07/31/21 03/14/22 Famotidine 20 mg PO BID 01/15/22 03/14/22 Dulaglutide [Trulicity] 3 mg SQ WE 03/10/22 03/14/22 Insulin Aspart [NovoLOG Flexpen] See Protocol SQ DAILY PRN 03/10/22 03/14/22 Previous Rx's Medication Instructions Recorded Citalopram Hydrobromide [CeleXA] 40 mg PO DAILY #1 tab 03/10/15 hydroCHLOROthiazide [Hydrodiuril] 25 mg PO DAILY tab 08/03/21 amLODIPine [Norvasc] 10 mg PO DAILY 30 Days #30 tab 01/17/22 Ondansetron Odt [Zofran Odt] 4 mg PO Q8HR PRN #21 tab 03/10/22 Allergies Allergy/AdvReac Type Severity Reaction Status Date / Time Fish Containing Products Allergy Anaphylaxis Verified 03/14/22 19:21 Iodinated Contrast Media Allergy Anaphylaxis Verified 03/14/22 19:21 [Iodinated Contrast Media - IV Dye] Sulfa (Sulfonamide Allergy Anaphylaxis Verified 03/14/22 19:21 Antibiotics) sulfamethoxazole Allergy Anaphylaxis Verified 03/14/22 19:21 [From Septra] tree nut [Nut] Allergy Anaphylaxis Verified 03/14/22 19:21 trimethoprim [From Septra] Allergy Anaphylaxis Verified 03/14/22 19:21 Review of Systems ROS Statement: Those systems with pertinent positive or pertinent negative responses have been documented in the HPI. ROS Other: All systems not noted in ROS Statement are negative. 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 Last Myocardial Infarction Date:: Pt thinks 2015 History of Any Multi-Drug Resistant Organisms: None Reported Past Surgical History: Section, Cholecystectomy, Heart Catheterization With Stent, Hysterectomy, Tubal Ligation, Uterine Ablation Additional Past Surgical History / Comment(s): vein stripping right leg, radio frequency ablation of right back-02/22/2015, four stents on 04/03/16 and one on march 05, ovaries removed, colonscopy- polyp removal Past Anesthesia/Blood Transfusion Reactions: Motion Sickness Additional Past Anesthesia/Blood Transfusion Reaction / Comment(s): mild claustrophobia Date of Last Stent Placement:: 04/03/16 Past Psychological History: Anxiety, Depression Smoking Status: Current every day smoker Past Alcohol Use History: None Reported Past Drug Use History: None Reported - Past Family History Father Family Medical History: Congestive Heart Failure (CHF), Coronary Artery Disease (CAD), Diabetes Mellitus Mother Family Medical History: Cancer, COPD, Hypertension, Respiratory Disorder Additional Family Medical History / Comment(s): emphysema, colon CA General Exam Limitations: no limitations General appearance: alert, in no apparent distress Head exam: Present: atraumatic, normocephalic, normal inspection Eye exam: Present: normal appearance, PERRL, EOMI. Absent: scleral icterus, conjunctival injection, periorbital swelling ENT exam: Present: normal oropharynx, mucous membranes dry Respiratory exam: Present: normal lung sounds bilaterally. Absent: respiratory distress, wheezes, rales, rhonchi, stridor Cardiovascular Exam: Present: regular rate, normal rhythm, normal heart sounds. Absent: systolic murmur, diastolic murmur, rubs, gallop, clicks GI/Abdominal exam: Present: soft, tenderness (Mild right lower quadrant), normal bowel sounds. Absent: distended, guarding, rebound, rigid Neurological exam: Present: alert, oriented X3, CN II-XII intact Psychiatric exam: Present: normal affect, normal mood Course Vital Signs 03/14/22 17:31 Temperature 98.6 F Pulse Rate 81 Respiratory 18 Rate Blood Pressure 156/88 O2 Sat by Pulse 96 Oximetry Medical Decision Making - Medical Decision Making This is a 51-year-old female presenting with intractable nausea/vomiting and lower abdominal pain, unchanged from her presentation on 03/10/22. Thorough history and examination were performed. Patient is well-appearing and in no apparent distress. She is afebrile. For the most part patient's symptoms have not changed since her last visit. The abdomen is soft. There is mild tenderness in the right lower quadrant. Patient had normal CT of the abdomen and pelvis with contrast 4 days ago. With symptoms unchanged, lack of fever, and consistent abdominal exam from her previous visit, repeat radiation exposure is not necessary before laboratory studies. I will obtain laboratory studies for further exploration of symptoms. Pain control with morphine. Laboratory studies significant for elevated white count at 12.5, increased from her previous visit at 10.7. Patient has SAIRA, consistent with her last visit. Glucose is elevated at 395. LFTs are relatively normal. COVID-19 and influenza A/B are not detected. Results discussed with patient. At this time there are no diagnostic studies to explain patient's symptoms. With recent CT being normal and stable lab values today, further imaging is not necessary. Patient informed that she can be admitted to observation for intractable nausea, vomiting, and pain or manage symptoms at home. Patient does attempt a PO test and states she feels extremely nauseous. Patient requests to stay in hospital for observation. Case discussed with Dr. Sanchez. Patient will be admitted to his service for observation and symptom management. Dr. Lopez is my attending. - Lab Data Result diagrams: 03/14/22 17:51 03/14/22 17:51 Lab Results 03/14/22 03/14/22 03/14/22 Range/Units 17:51 17:51 17:51 WBC 12.5 H (3.8-10.6) k/uL RBC 4.72 (3.80-5.40) m/uL Hgb 10.5 L (11.4-16.0) gm/dL Hct 35.9 (34.0-46.0) % MCV 76.0 L (80.0-100.0) fL MCH 22.2 L (25.0-35.0) pg MCHC 29.3 L (31.0-37.0) g/dL RDW 18.0 H (11.5-15.5) % Plt Count 328 (150-450) k/uL MPV 7.8 Neutrophils % 76 % Lymphocytes % 15 % Monocytes % 4 % Eosinophils % 2 % Basophils % 1 % Neutrophils # 9.5 H (1.3-7.7) k/uL Lymphocytes # 1.9 (1.0-4.8) k/uL Monocytes # 0.6 (0-1.0) k/uL Eosinophils # 0.3 (0-0.7) k/uL Basophils # 0.1 (0-0.2) k/uL Hypochromasia Marked Anisocytosis Slight Microcytosis Slight Sodium 132 L (137-145) mmol/L Potassium 3.8 (3.5-5.1) mmol/L Chloride 97 L (98-107) mmol/L Carbon Dioxide 28 (22-30) mmol/L Anion Gap 7 mmol/L BUN 22 H (7-17) mg/dL Creatinine 1.17 H (0.52-1.04) mg/dL Est GFR (CKD-EPI)AfAm 63 (>60 ml/min/1.73 sqM) Est GFR (CKD-EPI)NonAf 55 (>60 ml/min/1.73 sqM) Glucose 395 H (74-99) mg/dL Calcium 8.7 (8.4-10.2) mg/dL Total Bilirubin 0.2 (0.2-1.3) mg/dL AST 22 (14-36) U/L ALT 16 (4-34) U/L Alkaline Phosphatase 122 (38-126) U/L Troponin I 0.019 (0.000-0.034) ng/mL Total Protein 6.1 L (6.3-8.2) g/dL Albumin 3.6 (3.5-5.0) g/dL Lipase 132 (23-300) U/L Coronavirus (PCR) (Not Detectd) Influenza Type A RNA (Not Detectd) Influenza Type B (PCR) (Not Detectd) 03/14/22 03/14/22 Range/Units 18:50 18:50 WBC (3.8-10.6) k/uL RBC (3.80-5.40) m/uL Hgb (11.4-16.0) gm/dL Hct (34.0-46.0) % MCV (80.0-100.0) fL MCH (25.0-35.0) pg MCHC (31.0-37.0) g/dL RDW (11.5-15.5) % Plt Count (150-450) k/uL MPV Neutrophils % % Lymphocytes % % Monocytes % % Eosinophils % % Basophils % % Neutrophils # (1.3-7.7) k/uL Lymphocytes # (1.0-4.8) k/uL Monocytes # (0-1.0) k/uL Eosinophils # (0-0.7) k/uL Basophils # (0-0.2) k/uL Hypochromasia Anisocytosis Microcytosis Sodium (137-145) mmol/L Potassium (3.5-5.1) mmol/L Chloride (98-107) mmol/L Carbon Dioxide (22-30) mmol/L Anion Gap mmol/L BUN (7-17) mg/dL Creatinine (0.52-1.04) mg/dL Est GFR (CKD-EPI)AfAm (>60 ml/min/1.73 sqM) Est GFR (CKD-EPI)NonAf (>60 ml/min/1.73 sqM) Glucose (74-99) mg/dL Calcium (8.4-10.2) mg/dL Total Bilirubin (0.2-1.3) mg/dL AST (14-36) U/L ALT (4-34) U/L Alkaline Phosphatase (38-126) U/L Troponin I (0.000-0.034) ng/mL Total Protein (6.3-8.2) g/dL Albumin (3.5-5.0) g/dL Lipase (23-300) U/L Coronavirus (PCR) Not Detected (Not Detectd) Influenza Type A RNA Not Detected (Not Detectd) Influenza Type B (PCR) Not Detected (Not Detectd) - EKG Data EKG Comments: EKG taken at 18:25 Sinus rhythm, left axis deviation, right bundle branch block, possible left ventricular hypertrophy Ventricular rate 79 NV interval 142 QRS duration 176 QTC 482 Disposition Clinical Impression: Intractable nausea and vomiting, Lower abdominal pain Disposition: ADMITTED IP TO THIS HOSP Condition: Good Referrals: Dagmar Hennessy MD [Primary Care Provider] - 1-2 days Decision Time: 19:45
[2022-03-14] MEDS ORDERED: ONDANSETRON 4 MG/2 ML VIAL IVP STA (19:42)
[2022-03-14] MEDS ORDERED: NALOXONE 0.4 MG/ML 1 ML VIAL IV PRN (20:00)
[2022-03-14] MEDS ORDERED: SODIUM CHLORIDE 0.9% 1,000 ML IV SCH (20:00)
[2022-03-14] MEDS ORDERED: ACETAMINOPHEN TAB 325 MG TAB PO PRN (20:00)
[2022-03-14] MEDS ORDERED: ONDANSETRON 4 MG/2 ML VIAL IVP PRN (20:00)
[2022-03-14 23:29] LABS: Glucose,Whole Blood 218 mg/dL (75-99)
[2022-03-15 00:28] VITALS: BP 149/94; PULSE 76
--- NOTE | 2022-03-27 11:01 | P.HPIM ---
History of Present Illness H&P Date: 03/15/22 Patient was DC'd from ER patient was not personally evaluated by myself. Patient did return to ER and was admitted inpatient on 03/18/22 H&P completed at that time Past Medical History Past Medical History: Blood Disorder, Coronary Artery Disease (CAD), Cancer, Chest Pain / Angina, CVA/TIA, Diabetes Mellitus, Deep Vein Thrombosis (DVT), Fibromyalgia, GERD/Reflux, Hyperlipidemia, Hypertension, Myocardial Infarction ([place]), Musculoskeletal Disorder, Neurologic Disorder, Sleep Apnea/CPAP/BIPAP, Vascular Disorder Additional Past Medical History / Comment(s): IDDM type II, uterine/cervical and ovarian cancer, restless leg, Factor V blood disorder, DVT R leg, 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 - slight foot drag when tired/neuropathies, MS, [place] X 5, ABIGAIL with Cpap use, PAD/legs, R leg edema, past pancreatitis. Last Myocardial Infarction Date:: Pt thinks 2015 History of Any Multi-Drug Resistant Organisms: None Reported Past Surgical History: Section, Cholecystectomy, Heart Catheterization With Stent, Hysterectomy, Tubal Ligation, Uterine Ablation Additional Past Surgical History / Comment(s): vein stripping right leg, radio frequency ablation of right back-02/22/2015, four stents on 04/03/16 and one on march 05, ovaries removed, colonscopy- polyp removal Past Anesthesia/Blood Transfusion Reactions: Motion Sickness Additional Past Anesthesia/Blood Transfusion Reaction / Comment(s): mild claustrophobia Date of Last Stent Placement:: 04/03/16 Past Psychological History: Anxiety, Depression Smoking Status: Current every day smoker Past Alcohol Use History: None Reported Past Drug Use History: None Reported - Past Family History Father Family Medical History: Congestive Heart Failure (CHF), Coronary Artery Disease (CAD), Diabetes Mellitus Mother Family Medical History: Cancer, COPD, Hypertension, Respiratory Disorder Additional Family Medical History / Comment(s): emphysema, colon CA Medications and Allergies Home Medications Medication Instructions Recorded Confirmed Type Citalopram Hydrobromide [CeleXA] 40 mg PO DAILY #1 tab 03/10/15 03/18/22 Rx Pregabalin [Lyrica] 150 mg PO BID 06/25/15 03/18/22 History lamoTRIgine 200 mg PO BID 07/30/16 03/18/22 History Magnesium Gluconate [Magonate] 500 mg PO HS 03/27/17 03/18/22 History Aspirin [Adult Low Dose Aspirin EC] 81 mg PO HS 11/26/17 03/18/22 History Enalapril [Vasotec] 10 mg PO BID 11/26/17 03/18/22 History DULoxetine HCL [Cymbalta] 60 mg PO DAILY 08/25/18 03/18/22 History Isosorbide Mononitrate ER [Imdur] 60 mg PO DAILY 09/08/18 03/18/22 History Carvedilol [Coreg] 25 mg PO BID 01/22/19 03/18/22 History ARIPiprazole [Abilify] 2 mg PO DAILY 11/08/20 03/18/22 History Clopidogrel [Plavix] 75 mg PO HS 11/08/20 03/18/22 History Insulin Glargine,Hum.rec.anlog 30 unit SQ BID 11/08/20 03/18/22 History [Lantus Solostar Pen] ALPRAZolam [Xanax] 2 mg PO DAILY 07/31/21 03/18/22 History Atorvastatin [Lipitor] 40 mg PO DAILY 07/31/21 03/18/22 History Cholecalciferol (Vitamin D3) 125 mcg PO HS 07/31/21 03/18/22 History [Vitamin D3 (125 MCG = 5,000 IU)] HYDROcodone/APAP 7.5-325MG [[place] 1 tab PO TID 07/31/21 03/18/22 History 7.5-325] metFORMIN HCL [Glucophage] 1,000 mg PO HS 07/31/21 03/18/22 History metFORMIN HCL [Glucophage] 500 mg PO DAILY 07/31/21 03/18/22 History hydroCHLOROthiazide [Hydrodiuril] 25 mg PO DAILY tab 08/03/21 03/18/22 Rx amLODIPine [Norvasc] 10 mg PO DAILY 30 Days #30 tab 01/17/22 03/18/22 Rx Dulaglutide [Trulicity] 3 mg SQ WE 03/10/22 03/18/22 History Insulin Aspart [NovoLOG Flexpen] See Protocol SQ DAILY PRN 03/10/22 03/18/22 History Ondansetron Odt [Zofran ODT] 4 mg PO Q8HR PRN #21 tab 03/10/22 03/18/22 Rx Pantoprazole Sodium [Protonix] 40 mg PO DAILY 30 Days #30 tab 03/20/22 Rx Allergies Allergy/AdvReac Type Severity Reaction Status Date / Time Fish Containing Products Allergy Anaphylaxis Verified 03/18/22 01:21 Iodinated Contrast Media Allergy Anaphylaxis Verified 03/18/22 01:21 [Iodinated Contrast Media - IV Dye] Sulfa (Sulfonamide Allergy Anaphylaxis Verified 03/18/22 01:21 Antibiotics) sulfamethoxazole Allergy Anaphylaxis Verified 03/18/22 01:21 [From ] tree nut [Nut] Allergy Anaphylaxis Verified 03/18/22 01:21 trimethoprim [From Junra] Allergy Anaphylaxis Verified 03/18/22 01:21 Results CBC & Chem 7: 03/14/22 17:51 03/14/22 17:51
== END 2022-03-15 00:28 | disposition home or self-care (01) ==
LOC: EC 17:10 → 6NMEDSUR 22:46
PROVIDERS: ADMIT Internal Medicine; ATTEND Internal Medicine
DX: R11.2 Nausea with vomiting, unspecified (principal); N17.9 Acute kidney failure, unspecified; R10.30 Lower abdominal pain, unspecified; R10.813 Right lower quadrant abdominal tenderness; D72.829 Elevated white blood cell count, unspecified; I10 Essential (primary) hypertension; R53.1 Weakness; I25.10 Atherosclerotic heart disease of native coronary artery without angina pectoris; E78.5 Hyperlipidemia, unspecified; K21.9 Gastro-esophageal reflux disease without esophagitis; G25.81 Restless legs syndrome; I69.351 Hemiplegia and hemiparesis following cerebral infarction affecting right dominant side; G35 Multiple sclerosis; I25.2 Old myocardial infarction; G47.33 Obstructive sleep apnea (adult) (pediatric); I73.9 Peripheral vascular disease, unspecified; D68.51 Activated protein C resistance; E11.40 Type 2 diabetes mellitus with diabetic neuropathy, unspecified; I45.10 Unspecified right bundle-branch block; M79.7 Fibromyalgia; F40.240 Claustrophobia; F32.A Depression, unspecified; F41.9 Anxiety disorder, unspecified; F17.200 Nicotine dependence, unspecified, uncomplicated; Z20.822 Contact with and (suspected) exposure to COVID-19; Z79.82 Long term (current) use of aspirin; Z79.84 Long term (current) use of oral hypoglycemic drugs; Z79.02 Long term (current) use of antithrombotics/antiplatelets; Z79.4 Long term (current) use of insulin; Z79.899 Other long term (current) drug therapy; Z91.041 Radiographic dye allergy status; Z91.018 Allergy to other foods; Z88.2 Allergy status to sulfonamides; Z86.718 Personal history of other venous thrombosis and embolism; Z85.43 Personal history of malignant neoplasm of ovary; Z85.41 Personal history of malignant neoplasm of cervix uteri; Z90.710 Acquired absence of both cervix and uterus; Z90.49 Acquired absence of other specified parts of digestive tract; Z86.010 Personal history of colon polyps; Z87.19 Personal history of other diseases of the digestive system; Z98.891 History of uterine scar from previous surgery; Z98.51 Tubal ligation status; Z95.5 Presence of coronary angioplasty implant and graft; Z90.722 Acquired absence of ovaries, bilateral; Z98.890 Other specified postprocedural states; Z83.3 Family history of diabetes mellitus; Z82.49 Family history of ischemic heart disease and other diseases of the circulatory system; Z82.5 Family history of asthma and other chronic lower respiratory diseases; Z80.0 Family history of malignant neoplasm of digestive organs
CPT/HCPCS: 96361; 96374; 99285; 36415; 93005; 80053; 83690; 84484; 85025; 87502; 87635; 71046; G0378; J2270

== ENCOUNTER 2022-03-18 01:12 | Observation (INO) | payer OTHER ==
[2022-03-18] MEDS ORDERED: PANTOPRAZOLE 40 MG/10 ML VIAL IVP STA (04:29)
[2022-03-18] MEDS ORDERED: ONDANSETRON 4 MG/2 ML VIAL IVP STA (04:29)
[2022-03-18] MEDS ORDERED: SODIUM CHLORIDE 0.9% 1,000 ML IV STA ×2 (04:29)
[2022-03-18] MEDS ORDERED: SODIUM CHLORIDE 0.9% 500 ML 500 ML IV STA (04:29)
--- NOTE | 2022-03-18 04:30 | ED ---
Nausea/Vomiting/Diarrhea HPI - General Chief complaint: Nausea/Vomiting/Diarrhea Stated complaint: Vomiting Time Seen by Provider: 03/18/22 04:29 Source: patient, RN notes reviewed, old records reviewed, Caregiver Mode of arrival: ambulatory Limitations: no limitations - History of Present Illness Initial comments: This is a 51 female to the emergency department today. Patient sustained the emergency room today for evaluation, she is here for evaluation regarding intractable bowel pain persistent nausea vomiting occasional diarrhea. Patient is very concerned about this pain that she is having states something is wrong is abnormal to have as well as pain although she has had prior evaluations for this pain. Patient has had a history of multiple abdominal surgeries. No current fevers. MD complaint: nausea, vomiting, diarrhea, abdominal pain -: days(s) Description of Vomiting: food contents, watery, bilious Description of Diarrhea: water, mucous Associated Abdominal Pain: Yes Location: diffuse Radiation: none Severity: severe Severity scale (1-10): 10 Quality: cramping, stabbing, aching Consistency: intermittent Improves with: none Worsens with: none Context: history of abdominal surgery Associated Symptoms: loss of appetite, malaise, nausea/vomiting, weakness - Related Data Home Medications Medication Instructions Recorded Confirmed Pregabalin [Lyrica] 150 mg PO BID 06/25/15 03/18/22 lamoTRIgine 200 mg PO BID 07/30/16 03/18/22 Magnesium Gluconate [Magonate] 500 mg PO HS 03/27/17 03/18/22 Aspirin [Adult Low Dose Aspirin EC] 81 mg PO HS 11/26/17 03/18/22 Enalapril [Vasotec] 10 mg PO BID 11/26/17 03/18/22 DULoxetine HCL [Cymbalta] 60 mg PO DAILY 08/25/18 03/18/22 Isosorbide Mononitrate ER [Imdur] 60 mg PO DAILY 09/08/18 03/18/22 Carvedilol [Coreg] 25 mg PO BID 01/22/19 03/18/22 ARIPiprazole [Abilify] 2 mg PO DAILY 11/08/20 03/18/22 Clopidogrel [Plavix] 75 mg PO HS 11/08/20 03/18/22 Insulin Glargine,Hum.rec.anlog 30 unit SQ BID 11/08/20 03/18/22 [Lantus Solostar Pen] ALPRAZolam [Xanax] 2 mg PO DAILY 07/31/21 03/18/22 Atorvastatin [Lipitor] 40 mg PO DAILY 07/31/21 03/18/22 Cholecalciferol (Vitamin D3) 125 mcg PO HS 07/31/21 03/18/22 [Vitamin D3 (125 MCG = 5,000 IU)] HYDROcodone/APAP 7.5-325MG [[place] 1 tab PO TID 07/31/21 03/18/22 7.5-325] metFORMIN HCL [Glucophage] 1,000 mg PO HS 07/31/21 03/18/22 metFORMIN HCL [Glucophage] 500 mg PO DAILY 07/31/21 03/18/22 Dulaglutide [Trulicity] 3 mg SQ WE 03/10/22 03/18/22 Insulin Aspart [NovoLOG Flexpen] See Protocol SQ DAILY PRN 03/10/22 03/18/22 Previous Rx's Medication Instructions Recorded Citalopram Hydrobromide [CeleXA] 40 mg PO DAILY #1 tab 03/10/15 hydroCHLOROthiazide [Hydrodiuril] 25 mg PO DAILY tab 08/03/21 amLODIPine [Norvasc] 10 mg PO DAILY 30 Days #30 tab 01/17/22 Ondansetron Odt [Zofran ODT] 4 mg PO Q8HR PRN #21 tab 03/10/22 Pantoprazole Sodium [Protonix] 40 mg PO DAILY 30 Days #30 tab 03/20/22 Allergies Allergy/AdvReac Type Severity Reaction Status Date / Time Fish Containing Products Allergy Anaphylaxis Verified 03/18/22 01:21 Iodinated Contrast Media Allergy Anaphylaxis Verified 03/18/22 01:21 [Iodinated Contrast Media - IV Dye] Sulfa (Sulfonamide Allergy Anaphylaxis Verified 03/18/22 01:21 Antibiotics) sulfamethoxazole Allergy Anaphylaxis Verified 03/18/22 01:21 [From Septra] tree nut [Nut] Allergy Anaphylaxis Verified 03/18/22 01:21 trimethoprim [From Junra] Allergy Anaphylaxis Verified 03/18/22 01:21 Review of Systems ROS Statement: Those systems with pertinent positive or pertinent negative responses have been documented in the HPI. ROS Other: All systems not noted in ROS Statement are negative. 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 Last Myocardial Infarction Date:: Pt thinks 2015 History of Any Multi-Drug Resistant Organisms: None Reported Past Surgical History: Section, Cholecystectomy, Heart Catheterization With Stent, Hysterectomy, Tubal Ligation, Uterine Ablation Additional Past Surgical History / Comment(s): vein stripping right leg, radio frequency ablation of right back-02/22/2015, four stents on 04/03/16 and one on march 05, ovaries removed, colonscopy- polyp removal Past Anesthesia/Blood Transfusion Reactions: Motion Sickness Additional Past Anesthesia/Blood Transfusion Reaction / Comment(s): mild claustrophobia Date of Last Stent Placement:: 04/03/16 Past Psychological History: Anxiety, Depression Smoking Status: Current every day smoker Past Alcohol Use History: None Reported Past Drug Use History: None Reported - Past Family History Father Family Medical History: Congestive Heart Failure (CHF), Coronary Artery Disease (CAD), Diabetes Mellitus Mother Family Medical History: Cancer, COPD, Hypertension, Respiratory Disorder Additional Family Medical History / Comment(s): emphysema, colon CA General Exam Limitations: no limitations General appearance: alert, in no apparent distress, anxious Head exam: Present: atraumatic, normocephalic, normal inspection Eye exam: Present: normal appearance, PERRL, EOMI. Absent: scleral icterus, conjunctival injection, periorbital swelling ENT exam: Present: normal exam, mucous membranes moist Neck exam: Present: normal inspection. Absent: tenderness, meningismus, lymphadenopathy Respiratory exam: Present: normal lung sounds bilaterally. Absent: respiratory distress, wheezes, rales, rhonchi, stridor Cardiovascular Exam: Present: regular rate, normal rhythm, normal heart sounds. Absent: systolic murmur, diastolic murmur, rubs, gallop, clicks GI/Abdominal exam: Present: soft, normal bowel sounds. Absent: distended, tenderness, guarding, rebound, rigid Extremities exam: Present: normal inspection, full ROM, normal capillary refill. Absent: tenderness, pedal edema, joint swelling, calf tenderness Back exam: Present: normal inspection Neurological exam: Present: alert, oriented X3, CN II-XII intact Psychiatric exam: Present: normal affect, normal mood Skin exam: Present: warm, dry, intact, normal color. Absent: rash Course Vital Signs 03/18/22 03/18/22 03/18/22 01:18 05:41 05:51 Temperature 99.6 F 98.8 F 98.5 F Pulse Rate 84 88 79 Respiratory 18 18 20 Rate Blood Pressure 157/83 146/76 147/87 O2 Sat by Pulse 99 98 98 Oximetry - Reevaluation(s) Reevaluation #1: 03/18/22 Medical record is reviewed Patient symptoms are improved here in Patient informed results and questions have been answered Medical Decision Making - Medical Decision Making 51 female to the emergency department with intractable abdominal pain and nausea and vomiting. Patient will be admitted for further evaluation management regarding this abdominal pain and vomiting. Currently she does not fill comfor table with discharge - Lab Data Result diagrams: 03/20/22 06:18 03/20/22 06:18 Lab Results 03/18/22 03/18/22 03/18/22 Range/Units 04:41 04:41 04:41 WBC 9.3 (3.8-10.6) k/uL RBC 4.96 (3.80-5.40) m/uL Hgb 10.8 L (11.4-16.0) gm/dL Hct 37.3 (34.0-46.0) % MCV 75.1 L (80.0-100.0) fL MCH 21.8 L (25.0-35.0) pg MCHC 29.1 L (31.0-37.0) g/dL RDW 18.0 H (11.5-15.5) % Plt Count 269 (150-450) k/uL MPV 9.1 Neutrophils % 68 % Lymphocytes % 20 % Monocytes % 8 % Eosinophils % 1 % Basophils % 2 % Neutrophils # 6.3 (1.3-7.7) k/uL Lymphocytes # 1.9 (1.0-4.8) k/uL Monocytes # 0.7 (0-1.0) k/uL Eosinophils # 0.1 (0-0.7) k/uL Basophils # 0.2 (0-0.2) k/uL Hypochromasia Marked Anisocytosis Slight Microcytosis Moderate Sodium 135 L (137-145) mmol/L Potassium 3.9 (3.5-5.1) mmol/L Chloride 100 (98-107) mmol/L Carbon Dioxide 28 (22-30) mmol/L Anion Gap 7 mmol/L BUN 20 H (7-17) mg/dL Creatinine 1.35 H (0.52-1.04) mg/dL Est GFR (CKD-EPI)AfAm 53 (>60 ml/min/1.73 sqM) Est GFR (CKD-EPI)NonAf 46 (>60 ml/min/1.73 sqM) Glucose 234 H (74-99) mg/dL Plasma Lactic Acid Faheem (0.7-2.0) mmol/L Calcium 9.2 (8.4-10.2) mg/dL Total Bilirubin 0.4 (0.2-1.3) mg/dL AST 32 (14-36) U/L ALT 17 (4-34) U/L Alkaline Phosphatase 125 (38-126) U/L Total Protein 6.4 (6.3-8.2) g/dL Albumin 3.8 (3.5-5.0) g/dL Amylase 51 (30-110) U/L Lipase 139 (23-300) U/L Urine Color Colorless Urine Appearance Clear (Clear) Urine pH 6.0 (5.0-8.0) Ur Specific [place] 1.006 (1.001-1.035) Urine Protein 2+ H (Negative) Urine Glucose (UA) 2+ H (Negative) Urine Ketones Negative (Negative) Urine Blood Trace H (Negative) Urine Nitrite Negative (Negative) Urine Bilirubin Negative (Negative) Urine Urobilinogen <2.0 (<2.0) mg/dL Ur Leukocyte Esterase Negative (Negative) Urine RBC <1 (0-5) /hpf Urine WBC 1 (0-5) /hpf Ur Squamous Epith Cells <1 (0-4) /hpf Urine Mucus Rare H (None) /hpf 03/18/22 Range/Units 04:41 WBC (3.8-10.6) k/uL RBC (3.80-5.40) m/uL Hgb (11.4-16.0) gm/dL Hct (34.0-46.0) % MCV (80.0-100.0) fL MCH (25.0-35.0) pg MCHC (31.0-37.0) g/dL RDW (11.5-15.5) % Plt Count (150-450) k/uL MPV Neutrophils % % Lymphocytes % % Monocytes % % Eosinophils % % Basophils % % Neutrophils # (1.3-7.7) k/uL Lymphocytes # (1.0-4.8) k/uL Monocytes # (0-1.0) k/uL Eosinophils # (0-0.7) k/uL Basophils # (0-0.2) k/uL Hypochromasia Anisocytosis Microcytosis Sodium (137-145) mmol/L Potassium (3.5-5.1) mmol/L Chloride (98-107) mmol/L Carbon Dioxide (22-30) mmol/L Anion Gap mmol/L BUN (7-17) mg/dL Creatinine (0.52-1.04) mg/dL Est GFR (CKD-EPI)AfAm (>60 ml/min/1.73 sqM) Est GFR (CKD-EPI)NonAf (>60 ml/min/1.73 sqM) Glucose (74-99) mg/dL Plasma Lactic Acid Faheem 1.6 (0.7-2.0) mmol/L Calcium (8.4-10.2) mg/dL Total Bilirubin (0.2-1.3) mg/dL AST (14-36) U/L ALT (4-34) U/L Alkaline Phosphatase (38-126) U/L Total Protein (6.3-8.2) g/dL Albumin (3.5-5.0) g/dL Amylase (30-110) U/L Lipase (23-300) U/L Urine Color Urine Appearance (Clear) Urine pH (5.0-8.0) Ur Specific [place] (1.001-1.035) Urine Protein (Negative) Urine Glucose (UA) (Negative) Urine Ketones (Negative) Urine Blood (Negative) Urine Nitrite (Negative) Urine Bilirubin (Negative) Urine Urobilinogen (<2.0) mg/dL Ur Leukocyte Esterase (Negative) Urine RBC (0-5) /hpf Urine WBC (0-5) /hpf Ur Squamous Epith Cells (0-4) /hpf Urine Mucus (None) /hpf Disposition Clinical Impression: Dehydration, Gastroenteritis, Acute renal failure, Diabetes mellitus, Hyper glycemia, Intractable nausea and vomiting, Nausea and vomiting, Lower abdominal pain, Epigastric abdominal pain Disposition: ADMITTED IP TO THIS HOSP Condition: Fair Is patient prescribed a controlled substance at d/c from ED?: No
[2022-03-18 04:55] LABS: Anisocytosis Slight; Basophils # (A) 0.2 k/uL (0-0.2); Basophils % (A) 2 %; Eosinophils # (A) 0.1 k/uL (0-0.7); Eosinophils % (A) 1 %; HCT 37.3 % (34.0-46.0); HGB 10.8 gm/dL (11.4-16.0); Hypochromasia Marked; Lymphocytes # (A) 1.9 k/uL (1.0-4.8); Lymphocytes % (A) 20 %; MCH 21.8 pg (25.0-35.0); MCHC 29.1 g/dL (31.0-37.0); MCV 75.1 fL (80.0-100.0); Mean Platelet Volume 9.1; Microcytosis Moderate; Monocytes # (A) 0.7 k/uL (0-1.0); Monocytes % (A) 8 %; Neutrophils # (A) 6.3 k/uL (1.3-7.7); Neutrophils % (A) 68 %; Platelet Count 269 k/uL (150-450); RBC 4.96 m/uL (3.80-5.40); WBC 9.3 k/uL (3.8-10.6)
[2022-03-18 05:11] LABS: Albumin 3.8 g/dL (3.5-5.0); Calcium 9.2 mg/dL (8.4-10.2); Total Bilirubin 0.4 mg/dL (0.2-1.3); Total Protein 6.4 g/dL (6.3-8.2)
[2022-03-18 05:14] LABS: Potassium 3.9 mmol/L (3.5-5.1)
[2022-03-18] MEDS ORDERED: ONDANSETRON 4 MG/2 ML VIAL IVP PRN (05:36)
[2022-03-18] MEDS ORDERED: MORPHINE SULFATE 4 MG/ML SYRINGE IV PRN (05:36)
[2022-03-18] MEDS ORDERED: NALOXONE 0.4 MG/ML 1 ML VIAL IV PRN (05:36)
[2022-03-18] MEDS ORDERED: LORazepam 2 MG/ML INJ IV PRN (05:36)
[2022-03-18 07:15] LABS: Glucose,Whole Blood 219 mg/dL (75-99)
[2022-03-18] MEDS: PANTOPRAZOLE 40 MG/10 ML VIAL IV SCH (08:02)
[2022-03-18] MEDS: SODIUM CHLORIDE 0.9% 1,000 ML IV SCH ×3 (11:21→21:32)
[2022-03-18 12:09] LABS: Appearance,Urine Clear (Clear); Bilirubin,Urine Negative (Negative); Blood,Urine Trace (Negative); Color,Urine Colorless; Glucose,Urine (UA) 2+ (Negative); Ketones,Urine Negative (Negative); Leukocyte Esterase,Urine Negative (Negative); Mucus,Urine Rare /hpf; Nitrite,Urine Negative (Negative); Protein,Urine 2+ (Negative); RBC,Urine <1 /hpf (0-5); Specific Gravity,Urine 1.006 (1.001-1.035); Squamous Epithelial Cell,Urine <1 /hpf (0-4); Urobilinogen,Urine <2.0 mg/dL (<2.0); WBC,Urine 1 /hpf (0-5)
[2022-03-18 12:10] LABS: Glucose,Whole Blood 223 mg/dL (75-99)
--- NOTE | 2022-03-18 14:03 | P.HPIM ---
History of Present Illness H&P Date: 03/18/22 Leticia Langley, is a 51-year-old female who presented to [facility] emergency room with a chief complaint of nausea and vomiting, patient had these symptoms for about 3 weeks and had multiple visits to emergency room. She was evaluated in the emergency room vital examination on presentation revealed a temperature of 99.6 pulse 85 respiration 18 blood pressure 157/83 pulse ox 99% on room air Laboratory data revealed a white blood count of 9.3 hemoglobin 10.8 platelet count 269 sodium 135 potassium 3.9 chloride 100 CO2 28 BUN 20 creatinine 1.35 glucose level 234 urine analysis was negative for nitrate and leukocyte esterase positive for protein and glucose, amylase and lipase were normal Testing in the emergency room revealed, no testing was done in the emergency room this visit, however patient had a computed tomography scan of the abdomen and pelvis with contrast on 03/10/2022 that revealed evidence of previous cholecystectomy, evidence of hepatomegaly otherwise no acute abnormality in the abdomen and pelvis. Patient was admitted to medical floor for further evaluation and treatment. 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 Patient denies any alcohol use, she still smokes a few cigarettes per day Past Medical History Past Medical History: Blood Disorder, Coronary Artery Disease (CAD), Cancer, Chest Pain / Angina, CVA/TIA, Diabetes Mellitus, Deep Vein Thrombosis (DVT), Fibromyalgia, GERD/Reflux, Hyperlipidemia, Hypertension, Myocardial Infarction ([place]), Musculoskeletal Disorder, Neurologic Disorder, Sleep Apnea/CPAP/BIPAP, Vascular Disorder Additional Past Medical History / Comment(s): IDDM type II, uterine/cervical and ovarian cancer, restless leg, Factor V blood disorder, DVT R leg, 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 - slight foot drag when tired/neuropathies, MS, [place] X 5, ABIGAIL with Cpap use, PAD/legs, R leg edema, past pancreatitis. Last Myocardial Infarction Date:: Pt thinks 2015 History of Any Multi-Drug Resistant Organisms: None Reported Past Surgical History: Section, Cholecystectomy, Heart Catheterization With Stent, Hysterectomy, Tubal Ligation, Uterine Ablation Additional Past Surgical History / Comment(s): vein stripping right leg, radio frequency ablation of right back-02/22/2015, four stents on 04/03/16 and one on march 05, ovaries removed, colonscopy- polyp removal Past Anesthesia/Blood Transfusion Reactions: Motion Sickness Additional Past Anesthesia/Blood Transfusion Reaction / Comment(s): mild claustrophobia Date of Last Stent Placement:: 04/03/16 Past Psychological History: Anxiety, Depression Smoking Status: Current every day smoker Past Alcohol Use History: None Reported Past Drug Use History: None Reported - Past Family History Father Family Medical History: Congestive Heart Failure (CHF), Coronary Artery Disease (CAD), Diabetes Mellitus Mother Family Medical History: Cancer, COPD, Hypertension, Respiratory Disorder Additional Family Medical History / Comment(s): emphysema, colon CA Medications and Allergies Home Medications Medication Instructions Recorded Confirmed Type Citalopram Hydrobromide [CeleXA] 40 mg PO DAILY #1 tab 03/10/15 03/18/22 Rx Pregabalin [Lyrica] 150 mg PO BID 06/25/15 03/18/22 History lamoTRIgine 200 mg PO BID 07/30/16 03/18/22 History Magnesium Gluconate [Magonate] 500 mg PO HS 03/27/17 03/18/22 History Aspirin [Adult Low Dose Aspirin EC] 81 mg PO HS 11/26/17 03/18/22 History Enalapril [Vasotec] 10 mg PO BID 11/26/17 03/18/22 History DULoxetine HCL [Cymbalta] 60 mg PO DAILY 08/25/18 03/18/22 History Isosorbide Mononitrate ER [Imdur] 60 mg PO DAILY 09/08/18 03/18/22 History Carvedilol [Coreg] 25 mg PO BID 01/22/19 03/18/22 History ARIPiprazole [Abilify] 2 mg PO DAILY 11/08/20 03/18/22 History Clopidogrel [Plavix] 75 mg PO HS 11/08/20 03/18/22 History Insulin Glargine,Hum.rec.anlog 30 unit SQ BID 11/08/20 03/18/22 History [Lantus Solostar Pen] ALPRAZolam [Xanax] 2 mg PO DAILY 07/31/21 03/18/22 History Atorvastatin [Lipitor] 40 mg PO DAILY 07/31/21 03/18/22 History Cholecalciferol (Vitamin D3) 125 mcg PO HS 07/31/21 03/18/22 History [Vitamin D3 (125 MCG = 5,000 IU)] HYDROcodone/APAP 7.5-325MG [[place] 1 tab PO TID 07/31/21 03/18/22 History 7.5-325] metFORMIN HCL [Glucophage] 1,000 mg PO HS 07/31/21 03/18/22 History metFORMIN HCL [Glucophage] 500 mg PO DAILY 07/31/21 03/18/22 History hydroCHLOROthiazide [Hydrodiuril] 25 mg PO DAILY tab 08/03/21 03/18/22 Rx Famotidine 20 mg PO BID 01/15/22 03/18/22 History amLODIPine [Norvasc] 10 mg PO DAILY 30 Days #30 tab 01/17/22 03/18/22 Rx Dulaglutide [Trulicity] 3 mg SQ WE 03/10/22 03/18/22 History Insulin Aspart [NovoLOG Flexpen] See Protocol SQ DAILY PRN 03/10/22 03/18/22 History Ondansetron Odt [Zofran Odt] 4 mg PO Q8HR PRN #21 tab 03/10/22 03/18/22 Rx Allergies Allergy/AdvReac Type Severity Reaction Status Date / Time Fish Containing Products Allergy Anaphylaxis Verified 03/18/22 01:21 Iodinated Contrast Media Allergy Anaphylaxis Verified 03/18/22 01:21 [Iodinated Contrast Media - IV Dye] Sulfa (Sulfonamide Allergy Anaphylaxis Verified 03/18/22 01:21 Antibiotics) sulfamethoxazole Allergy Anaphylaxis Verified 03/18/22 01:21 [From Septra] tree nut [Nut] Allergy Anaphylaxis Verified 03/18/22 01:21 trimethoprim [From Junra] Allergy Anaphylaxis Verified 03/18/22 01:21 Physical Exam Vitals: Vital Signs Temp Pulse Pulse Resp BP BP Pulse Ox 03/18/22 08:00 70 18 03/18/22 06:16 98.9 F 70 18 175/77 95 03/18/22 05:51 98.5 F 79 20 147/87 98 03/18/22 05:41 98.8 F 88 18 146/76 98 03/18/22 01:18 99.6 F 84 18 157/83 99 Intake and Output 03/17/22 03/18/22 03/18/22 22:59 06:59 14:59 Other: Voiding Method Toilet # Voids 1 Weight 94.347 kg In general patient is alert and oriented x 3 in no distress HEENT head normocephalic and atraumatic Neck is supple no JVD no goiter no lymphadenopathy no carotid bruit Chest examination is clear to auscultation no crackles no wheezing Cardiac exam reveals regular heart sounds S1 and S2 no gallops no murmurs Abdomen is soft, with mild diffuse tenderness no organomegaly with normal bowel sounds Extremity exam reveals no edema no cyanosis or clubbing Neurological examination reveals no gross focal deficits Results CBC & Chem 7: 03/18/22 04:41 03/18/22 04:41 Labs: Abnormal Lab Results - Last 24 Hours (Table) 03/18/22 03/18/22 03/18/22 Range/Units 04:41 04:41 04:41 Hgb 10.8 L (11.4-16.0) gm/dL MCV 75.1 L (80.0-100.0) fL MCH 21.8 L (25.0-35.0) pg MCHC 29.1 L (31.0-37.0) g/dL RDW 18.0 H (11.5-15.5) % Sodium 135 L (137-145) mmol/L BUN 20 H (7-17) mg/dL Creatinine 1.35 H (0.52-1.04) mg/dL Glucose 234 H (74-99) mg/dL POC Glucose (mg/dL) (75-99) mg/dL Urine Protein 2+ H (Negative) Urine Glucose (UA) 2+ H (Negative) Urine Blood Trace H (Negative) Urine Mucus Rare H (None) /hpf 03/18/22 03/18/22 Range/Units 07:13 12:08 Hgb (11.4-16.0) gm/dL MCV (80.0-100.0) fL MCH (25.0-35.0) pg MCHC (31.0-37.0) g/dL RDW (11.5-15.5) % Sodium (137-145) mmol/L BUN (7-17) mg/dL Creatinine (0.52-1.04) mg/dL Glucose (74-99) mg/dL POC Glucose (mg/dL) 219 H 223 H (75-99) mg/dL Urine Protein (Negative) Urine Glucose (UA) (Negative) Urine Blood (Negative) Urine Mucus (None) /hpf Assessment and Plan Plan: 1. Nausea and vomiting, this time patient was started on IV Protonix Consultation for gastroenterology requested for possible EGD to rule out peptic ulcer disease Patient denies having EGD in the past Will also check stools for C. diff, check nasal swab for influenza A and B and COVID-19 2. Underlying history of insulin-dependent diabetes mellitus At this time patient is nothing by mouth, will hold home insulin and cover with sliding scale 3. Underlying history of coronary artery disease with multiple myocardial infarction in the past last one was 5-6 years ago Home medications reviewed and reordered 4. Underlying history of CVA in the past, with residual right sided weakness 5. Underlying history of tobacco abuse patient counseled in length in regard to smoking cessation 6. Underlying history of obstructive sleep apnea maintained on CPAP at home 7. History of factor V deficiency with previous history of DVT Will use Lovenox for DVT prophylaxis Consultation for gastroenterology initiated Will follow closely Recheck labs in a.m.
[2022-03-18] MEDS: carvediloL 12.5 MG TAB PO SCH (16:41)
[2022-03-18] MEDS: ENOXAPARIN 40 MG/0.4 ML SYRINGE SQ SCH (16:41)
[2022-03-18] MEDS: ALPRAZolam 1 MG TAB PO SCH (16:41)
[2022-03-18] MEDS: HYDROcodone/APAP 7.5-325MG 1 EACH TAB PO SCH ×2 (16:41→21:31)
[2022-03-18 17:18] LABS: Glucose,Whole Blood 252 mg/dL (75-99)
[2022-03-18 20:58] LABS: Glucose,Whole Blood 312 mg/dL (75-99)
[2022-03-18] MEDS ORDERED: CLOPIDOGREL 75 MG TAB PO SCH (21:00)
[2022-03-18] MEDS: ASPIRIN 81 MG PO SCH (21:31)
[2022-03-18] MEDS: CHOLECALCIFEROL 125 MCG (5000 IU) TABLET PO SCH (21:31)
[2022-03-18] MEDS: lisinopriL 20 MG TAB PO SCH (21:31)
[2022-03-18] MEDS: MAGNESIUM OXIDE 400 MG TAB PO SCH (21:31)
[2022-03-18] MEDS: lamoTRIgine 100 MG TAB PO SCH (21:31)
[2022-03-18] MEDS: INSULIN ASPART (NovoLOG) 100 UNIT/ML VIAL SQ SCH (21:34)
[2022-03-19] MEDS: SODIUM CHLORIDE 0.9% 1,000 ML IV SCH ×3 (02:28→19:55)
[2022-03-19 07:05] LABS: Glucose,Whole Blood 198 mg/dL (75-99)
[2022-03-19] MEDS: CITALOPRAM HYDROBROMIDE 20 MG TAB PO SCH (08:15)
[2022-03-19] MEDS: HYDROcodone/APAP 7.5-325MG 1 EACH TAB PO SCH ×3 (08:15→20:51)
[2022-03-19] MEDS: lisinopriL 20 MG TAB PO SCH ×2 (08:15→19:56)
[2022-03-19] MEDS: carvediloL 12.5 MG TAB PO SCH ×2 (08:15→15:34)
[2022-03-19] MEDS: DULoxetine HCL 60 MG CAPSULE.DR PO SCH (08:15)
[2022-03-19] MEDS: lamoTRIgine 100 MG TAB PO SCH ×2 (08:15→19:56)
[2022-03-19] MEDS: ATORVASTATIN 40 MG TAB PO SCH (08:15)
[2022-03-19] MEDS: amLODIPine 10 MG TAB PO SCH (08:15)
[2022-03-19] MEDS: ISOSORBIDE MONONITRATE ER 60 MG TAB.ER.24H PO SCH (08:15)
[2022-03-19] MEDS: ENOXAPARIN 40 MG/0.4 ML SYRINGE SQ SCH (08:15)
[2022-03-19] MEDS: ARIPiprazole 2 MG TAB PO SCH (08:15)
[2022-03-19] MEDS: ALPRAZolam 1 MG TAB PO SCH (08:15)
[2022-03-19] MEDS: PANTOPRAZOLE 40 MG/10 ML VIAL IV SCH (08:16)
[2022-03-19] MEDS: INSULIN ASPART (NovoLOG) 100 UNIT/ML VIAL SQ SCH ×4 (08:16→20:51)
[2022-03-19 10:43] LABS: Basophils # (A) 0.03 X 10*3/uL (0.00-0.10); Basophils % (A) 0.6 %; Eosinophils # (A) 0.12 X 10*3/uL (0.04-0.35); Eosinophils % (A) 2.5 %; HCT 30.9 % (37.2-46.3); Immature Grans, Automated 0.4 %; Lymphocytes # (A) 1.95 X 10*3/uL (0.90-5.00); Lymphocytes % (A) 41.3 %; MCH 22.4 pg (27.0-32.0); MCHC 29.1 g/dL (32.0-37.0); MCV 77.1 fL (80.0-97.0); Mean Platelet Volume 11.3 fL (9.5-12.2); Monocytes # (A) 0.45 X 10*3/uL (0.20-1.00); Monocytes % (A) 9.5 %; NRBC Per 100 WBC 0 /100 WBCS (0.0-0.0); Neutrophils # (A) 2.15 X 10*3/uL (1.80-7.70); Neutrophils % (A) 45.7 %; Platelet Count 213 X 10*3/uL (140-440); RBC 4.01 X 10*6/uL (4.10-5.20); RDW 19.9 % (11.5-14.5); WBC 4.72 X 10*3/uL (4.50-10.00)
[2022-03-19 10:59] LABS: ALT 15 U/L (8-44); AST 15 U/L (13-35); Albumin 2.9 g/dL (3.8-4.9); Albumin/Globulin Ratio 1.61 (1.60-3.17); Alkaline Phosphatase 111 U/L (41-126); BUN/Creat Ratio 10.17 Ratio (12.00-20.00); Blood Urea Nitrogen 12.2 mg/dL (9.0-27.0); Calcium 8.4 mg/dL (8.7-10.3); Chloride 107 mmol/L (96-109); Globulin 1.8 g/dL (1.6-3.3); Glucose 168 mg/dL (70-110); Lipase 51 U/L (14-63); Magnesium 1.6 mg/dL (1.5-2.4); Non-African American GFR(CKD) 52.7 (60.0-200.0); Phosphorus 3.8 mg/dL (2.4-5.1); Potassium 3.6 mmol/L (3.5-5.5); Sodium 140 mmol/L (135-145); Total Bilirubin <0.15 mg/dL (0.30-1.20); Total Protein 4.7 g/dL (6.2-8.2)
[2022-03-19 12:15] LABS: Glucose,Whole Blood 251 mg/dL (75-99)
--- NOTE | 2022-03-19 12:24 | P.GSCN ---
History of Present Illness Consult date: 03/19/22 History of present illness: CHIEF COMPLAINT: Nausea and vomiting 3 weeks HISTORY OF PRESENT ILLNESS: This is a 51-year-old female who presented to the hospital with complaints of nausea and vomiting for 3 weeks. This is her third ER visit regarding nausea and vomiting. Patient also complaining of epigastric abdominal pain. Patient reports that her last emesis was Saturday evening. She reports no hematemesis or coffee-ground emesis. Patient's last computed mathew ography scan of the abdomen was on 03/10/2022 which showed no acute abnormality in the abdomen or pelvis. Patient's last EGD was July [address] Serrano the head revealed mild antral gastritis. Patient denies any NSAID use. Patient denies any change in bowel habits. She does admit to having some chills. She is on Plavix due to history of cardiac stents and prior CVAs. Surgical service consulted for possible EGD. She denies any history of peptic ulcer disease. Prior surgical history includes cholecystectomy. PAST MEDICAL HISTORY: Coronary artery disease with 5 cardiac stents. Patient reports her last stent was over 1 year ago. Prior history of CVA 4., Gallstone pancreatitis status post cholecystectomy PAST SURGICAL HISTORY: See list. MEDICATIONS: See list. ALLERGIES: See list. SOCIAL HISTORY: No illicit drug use. REVIEW OF SYSTEMS: CONSTITUTIONAL: Denies fever or chills. HEENT: Denies blurred vision, vision changes, or eye pain. Denies hemoptysis CARDIOVASCULAR: Denies chest pain or pressure. RESPIRATORY: No shortness of breath. GASTROINTESTINAL: See HPI for pertinent findings HEMATOLOGIC: Denies bleeding disorders. GENITOURINARY: Denies any blood in urine or increased urinary frequency. SKIN: Denies pruitis. Denies rash. PHYSICAL EXAM: VITAL SIGNS: Reviewed GENERAL: Well-developed in no acute distress. HEENT: No sclera icterus. Extraocular movements grossly intact. Moist buccal mucosa. Head is atraumatic, normocephalic. No nasal drainage. ABDOMEN: Soft. Nondistended. Epigastric tenderness with palpation NEUROLOGIC: Alert and oriented. Cranial nerves II through XII grossly intact. LABORATORY DATA: WBC is 4.72, Hgb 10.8 down to 9.0 platelets 213 Sodium is 140 potassium 3.6 creatinine 1.2 Lipase 51 Stool for C. diff negative Influenza negative IMAGING: ASSESSMENT: 1. Epigastric abdominal pain with nausea and vomiting 2. History of coronary artery disease with cardiac stents and multiple CVAs on Plavix at home PLAN: -Patient scheduled for EGD tomorrow, 03/20/[address] Saldivar -Keep patient nothing by mouth after midnight -Continue IV Protonix -hold Plavix -Continue supportive care Thank you for this consultation Physician Train Controller note has been reviewed by physician. Signing provider agrees with the documented findings, assessment, and plan of care. I have personally seen and examined the patient, reviewed the POLITICAL ANTHROPOLOGIST /PAs history, exam and MDM and agree with the assessment and plan as written. Based on total visit time, I have performed more than 50% of the visit. As above: Patient with ongoing nausea and vomiting. Epigastric abdominal pain also present. We'll proceed with upper endoscopy tomorrow. Past Medical History Past Medical History: Blood Disorder, Coronary Artery Disease (CAD), Cancer, Chest Pain / Angina, CVA/TIA, Diabetes Mellitus, Deep Vein Thrombosis (DVT), Fibromyalgia, GERD/Reflux, Hyperlipidemia, Hypertension, Myocardial Infarction ([place]), Musculoskeletal Disorder, Neurologic Disorder, Sleep Apnea/CPAP/BIPAP, Vascular Disorder Additional Past Medical History / Comment(s): IDDM type II, uterine/cervical and ovarian cancer, restless leg, Factor V blood disorder, DVT R leg, 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 - slight foot drag when tired/neuropathies, MS, [place] X 5, ABIGAIL with Cpap use, PAD/legs, R leg edema, past pancreatitis. Last Myocardial Infarction Date:: Pt 2015 History of Any Multi-Drug Resistant Organisms: None Reported Past Surgical History: Section, Cholecystectomy, Heart Catheterization With Stent, Hysterectomy, Tubal Ligation, Uterine Ablation Additional Past Surgical History / Comment(s): vein stripping right leg, radio frequency ablation of right back-02/22/2015, four stents on 04/03/16 and one on march 05, ovaries removed, colonscopy- polyp removal Past Anesthesia/Blood Transfusion Reactions: Motion Sickness Additional Past Anesthesia/Blood Transfusion Reaction / Comm: mild claustrophobia Date of Last Stent Placement:: 04/03/16 Past Psychological History: Anxiety, Depression Smoking Status: Current every day smoker Past Alcohol Use History: None Reported Past Drug Use History: None Reported - Past Family History Father Family Medical History: Congestive Heart Failure (CHF), Coronary Artery Disease (CAD), Diabetes Mellitus Mother Family Medical History: Cancer, COPD, Hypertension, Respiratory Disorder Additional Family Medical History / Comment(s): emphysema, colon CA Medications and Allergies Home Medications Medication Instructions Recorded Confirmed Type Citalopram Hydrobromide [CeleXA] 40 mg PO DAILY #1 tab 03/10/15 03/18/22 Rx Pregabalin [Lyrica] 150 mg PO BID 06/25/15 03/18/22 History lamoTRIgine 200 mg PO BID 07/30/16 03/18/22 History Magnesium Gluconate [Magonate] 500 mg PO HS 03/27/17 03/18/22 History Aspirin [Adult Low Dose Aspirin EC] 81 mg PO HS 11/26/17 03/18/22 History Enalapril [Vasotec] 10 mg PO BID 11/26/17 03/18/22 History DULoxetine HCL [Cymbalta] 60 mg PO DAILY 08/25/18 03/18/22 History Isosorbide Mononitrate ER [Imdur] 60 mg PO DAILY 09/08/18 03/18/22 History Carvedilol [Coreg] 25 mg PO BID 01/22/19 03/18/22 History ARIPiprazole [Abilify] 2 mg PO DAILY 11/08/20 03/18/22 History Clopidogrel [Plavix] 75 mg PO HS 11/08/20 03/18/22 History Insulin Glargine,Hum.rec.anlog 30 unit SQ BID 11/08/20 03/18/22 History [Lantus Solostar Pen] ALPRAZolam [Xanax] 2 mg PO DAILY 07/31/21 03/18/22 History Atorvastatin [Lipitor] 40 mg PO DAILY 07/31/21 03/18/22 History Cholecalciferol (Vitamin D3) 125 mcg PO HS 07/31/21 03/18/22 History [Vitamin D3 (125 MCG = 5,000 IU)] HYDROcodone/APAP 7.5-325MG [[facility] 1 tab PO TID 07/31/21 03/18/22 History 7.5-325] metFORMIN HCL [Glucophage] 1,000 mg PO HS 07/31/21 03/18/22 History metFORMIN HCL [Glucophage] 500 mg PO DAILY 07/31/21 03/18/22 History hydroCHLOROthiazide [Hydrodiuril] 25 mg PO DAILY tab 08/03/21 03/18/22 Rx Famotidine 20 mg PO BID 01/15/22 03/18/22 History amLODIPine [Norvasc] 10 mg PO DAILY 30 Days #30 tab 01/17/22 03/18/22 Rx Dulaglutide [Trulicity] 3 mg SQ WE 03/10/22 03/18/22 History Insulin Aspart [NovoLOG Flexpen] See Protocol SQ DAILY PRN 03/10/22 03/18/22 History Ondansetron Odt [Zofran Odt] 4 mg PO Q8HR PRN #21 tab 03/10/22 03/18/22 Rx Allergies Allergy/AdvReac Type Severity Reaction Status Date / Time Fish Containing Products Allergy Anaphylaxis Verified 03/18/22 01:21 Iodinated Contrast Media Allergy Anaphylaxis Verified 03/18/22 01:21 [Iodinated Contrast Media - IV Dye] Sulfa (Sulfonamide Allergy Anaphylaxis Verified 03/18/22 01:21 Antibiotics) sulfamethoxazole Allergy Anaphylaxis Verified 03/18/22 01:21 [From Septra] tree nut [Nut] Allergy Anaphylaxis Verified 03/18/22 01:21 trimethoprim [From Junra] Allergy Anaphylaxis Verified 03/18/22 01:21 Surgical - Exam Vital Signs Temp Pulse Resp BP Pulse Ox 99.6 F 84 18 157/83 99 03/18/22 01:18 03/18/22 01:18 03/18/22 01:18 03/18/22 01:18 03/18/22 01:18 Results - Labs 03/19/22 06:21 03/19/22 06:21 Abnormal Lab Results - Last 24 Hours (Table) 03/18/22 03/18/22 03/18/22 Range/Units 04:41 12:08 17:17 POC Glucose (mg/dL) 223 H 252 H (75-99) mg/dL Urine Protein 2+ H (Negative) Urine Glucose (UA) 2+ H (Negative) Urine Blood Trace H (Negative) Urine Mucus Rare H (None) /hpf 03/18/22 03/19/22 Range/Units 20:57 07:03 POC Glucose (mg/dL) 312 H 198 H (75-99) mg/dL Urine Protein (Negative) Urine Glucose (UA) (Negative) Urine Blood (Negative) Urine Mucus (None) /hpf
[2022-03-19 17:32] LABS: Glucose,Whole Blood 218 mg/dL (75-99)
--- NOTE | 2022-03-19 18:57 | P.PN ---
Subjective Progress Note Date: 03/19/22 Leticia Langley, is a 51-year-old female who presented to [facility] emergency room with a chief complaint of nausea and vomiting, patient had these symptoms for about 3 weeks and had multiple visits to emergency room. She was evaluated in the emergency room vital examination on presentation revealed a temperature of 99.6 pulse 85 respiration 18 blood pressure 157/83 pulse ox 99% on room air Laboratory data revealed a white blood count of 9.3 hemoglobin 10.8 platelet count 269 sodium 135 potassium 3.9 chloride 100 CO2 28 BUN 20 creatinine 1.35 glucose level 234 urine analysis was negative for nitrate and leukocyte esterase positive for protein and glucose, amylase and lipase were normal Testing in the emergency room revealed, no testing was done in the emergency room this visit, however patient had a computed tomography scan of the abdomen and pelvis with contrast on 03/10/2022 that revealed evidence of previous cholecystectomy, evidence of hepatomegaly otherwise no acute abnormality in the abdomen and pelvis. Patient was admitted to medical floor for further evaluation and treatment. 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 Patient denies any alcohol use, she still smokes a few cigarettes per day. 03/19/2020 patient was seen and examined on the medical floor she is alert and oriented 3 in no apparent distress she is still complaining of nausea otherwise she denies any complaints there is no fever or chills no headache or dizziness no chest pain no shortness of breath no cough no vomiting no abdominal pain no diarrhea and no urinary symptoms. Vital exam reveals a temperature of 97.8 pulse 64 respirations 17 blood pressure 119/72 pulse ox 99% on room air white blood count is 4.72 hemoglobin 9.0 platelet count 213 BUN 12.2 creatinine 1.2. Patient is scheduled for EGD tomorrow medication reviewed continue with current regimen will follow in a.m. Objective - Vital Signs Vital signs: Vital Signs Temp 98.1 F 03/19/22 15:00 Pulse 68 05/23/22 15:00 Resp 16 03/19/22 15:00 BP 128/57 03/19/22 15:00 Pulse Ox 94 L 03/19/22 15:00 FiO2 Intake & Output 03/18/22 03/19/22 03/19/22 18:59 06:59 18:59 Intake Total 80 Output Total 800 Balance -800 80 Weight 94.347 kg Intake: Oral 80 Output: Urine 800 Other: Voiding Method Toilet Toilet Toilet # Voids 1 1 3 - Exam In general patient is alert and oriented x 3 in no distress HEENT head normocephalic and atraumatic Neck is supple no JVD no goiter no lymphadenopathy no carotid bruit Chest examination is clear to auscultation no crackles no wheezing Cardiac exam reveals regular heart sounds S1 and S2 no gallops no murmurs Abdomen is soft, with mild diffuse tenderness no organomegaly with normal bowel sounds Extremity exam reveals no edema no cyanosis or clubbing Neurological examination reveals no gross focal deficits - Labs CBC & Chem 7: 03/19/22 06:21 03/19/22 06:21 Labs: Abnormal Lab Results - Last 24 Hours (Table) 03/18/22 03/18/22 03/19/22 Range/Units 17:17 20:57 06:21 RBC 4.01 L (4.10-5.20) X 10*6/uL Hgb 9.0 L (12.0-15.0) g/dL Hct 30.9 L (37.2-46.3) % MCV 77.1 L (80.0-97.0) fL MCH 22.4 L (27.0-32.0) pg MCHC 29.1 L (32.0-37.0) g/dL RDW 19.9 H (11.5-14.5) % Anion Gap (10.00-18.00) mmol/L Est GFR (CKD-EPI)NonAf (60.0-200.0) BUN/Creatinine Ratio (12.00-20.00) Ratio Glucose (70-110) mg/dL POC Glucose (mg/dL) 252 H 312 H (75-99) mg/dL Calcium (8.7-10.3) mg/dL Total Bilirubin (0.30-1.20) mg/dL Total Protein (6.2-8.2) g/dL Albumin (3.8-4.9) g/dL 03/19/22 03/19/22 03/19/22 Range/Units 06:21 07:03 12:13 RBC (4.10-5.20) X 10*6/uL Hgb (12.0-15.0) g/dL Hct (37.2-46.3) % MCV (80.0-97.0) fL MCH (27.0-32.0) pg MCHC (32.0-37.0) g/dL RDW (11.5-14.5) % Anion Gap 7.00 L (10.00-18.00) mmol/L Est GFR (CKD-EPI)NonAf 52.7 L (60.0-200.0) BUN/Creatinine Ratio 10.17 L (12.00-20.00) Ratio Glucose 168 H (70-110) mg/dL POC Glucose (mg/dL) 198 H 251 H (75-99) mg/dL Calcium 8.4 L (8.7-10.3) mg/dL Total Bilirubin <0.15 L (0.30-1.20) mg/dL Total Protein 4.7 L (6.2-8.2) g/dL Albumin 2.9 L (3.8-4.9) g/dL Assessment and Plan Plan: 1. Nausea and vomiting, this time patient was started on IV Protonix Consultation for gastroenterology requested for possible EGD to rule out peptic ulcer disease Patient denies having EGD in the past Will also check stools for C. diff, check nasal swab for influenza A and B and COVID-19 2. Underlying history of insulin-dependent diabetes mellitus At this time patient is nothing by mouth, will hold home insulin and cover with sliding scale 3. Underlying history of coronary artery disease with multiple myocardial infarction in the past last one was 5-6 years ago Home medications reviewed and reordered 4. Underlying history of CVA in the past, with residual right sided weakness 5. Underlying history of tobacco abuse patient counseled in length in regard to smoking cessation 6. Underlying history of obstructive sleep apnea maintained on CPAP at home 7. History of factor V deficiency with previous history of DVT Will use Lovenox for DVT prophylaxis Consultation for gastroenterology initiated Will follow closely Recheck labs in a.m.
[2022-03-19] MEDS: CHOLECALCIFEROL 125 MCG (5000 IU) TABLET PO SCH (19:55)
[2022-03-19] MEDS: ASPIRIN 81 MG PO SCH (19:56)
[2022-03-19] MEDS: MAGNESIUM OXIDE 400 MG TAB PO SCH (19:56)
[2022-03-19 20:19] LABS: Glucose,Whole Blood 168 mg/dL (75-99)
[2022-03-20] MEDS: SODIUM CHLORIDE 0.9% 1,000 ML IV SCH ×2 (01:45→13:20)
[2022-03-20 02:15] LABS: % Iron Saturation 5.78 (12.00-45.00)
[2022-03-20 07:42] LABS: Glucose,Whole Blood 153 mg/dL (75-99)
[2022-03-20] MEDS: CITALOPRAM HYDROBROMIDE 20 MG TAB PO SCH (09:11)
[2022-03-20] MEDS: ALPRAZolam 1 MG TAB PO SCH (09:11)
[2022-03-20] MEDS: DULoxetine HCL 60 MG CAPSULE.DR PO SCH (09:11)
[2022-03-20] MEDS: ATORVASTATIN 40 MG TAB PO SCH (09:11)
[2022-03-20] MEDS: lisinopriL 20 MG TAB PO SCH (09:11)
[2022-03-20] MEDS: lamoTRIgine 100 MG TAB PO SCH (09:11)
[2022-03-20] MEDS: carvediloL 12.5 MG TAB PO SCH (09:12)
[2022-03-20] MEDS: HYDROcodone/APAP 7.5-325MG 1 EACH TAB PO SCH (09:12)
[2022-03-20] MEDS: ENOXAPARIN 40 MG/0.4 ML SYRINGE SQ SCH (09:13)
[2022-03-20] MEDS: PANTOPRAZOLE 40 MG/10 ML VIAL IV SCH (09:13)
[2022-03-20 09:15] LABS: Basophils # (A) 0.03 X 10*3/uL (0.00-0.10); Basophils % (A) 0.6 %; Eosinophils # (A) 0.18 X 10*3/uL (0.04-0.35); Eosinophils % (A) 3.6 %; HCT 32.3 % (37.2-46.3); HGB 9.5 g/dL (12.0-15.0); Immature Grans, Automated 0.2 %; Lymphocytes % (A) 35.6 %; MCH 22.3 pg (27.0-32.0); MCHC 29.4 g/dL (32.0-37.0); MCV 75.8 fL (80.0-97.0); Mean Platelet Volume 11.3 fL (9.5-12.2); Monocytes # (A) 0.39 X 10*3/uL (0.20-1.00); Monocytes % (A) 7.7 %; NRBC Per 100 WBC 0 /100 WBCS (0.0-0.0); Neutrophils # (A) 2.65 X 10*3/uL (1.80-7.70); Neutrophils % (A) 52.3 %; Platelet Count 238 X 10*3/uL (140-440); RBC 4.26 X 10*6/uL (4.10-5.20); RDW 19.8 % (11.5-14.5); WBC 5.06 X 10*3/uL (4.50-10.00)
[2022-03-20] MEDS: amLODIPine 10 MG TAB PO SCH (09:15)
[2022-03-20] MEDS: INSULIN ASPART (NovoLOG) 100 UNIT/ML VIAL SQ SCH ×2 (09:16→12:55)
[2022-03-20 09:50] LABS: ALT 17 U/L (8-44); AST 21 U/L (13-35); African American GFR (CKD) 68.6 (60.0-200.0); Albumin 3.5 g/dL (3.8-4.9); Albumin/Globulin Ratio 1.76 (1.60-3.17); Alkaline Phosphatase 132 U/L (41-126); BUN/Creat Ratio 7.08 Ratio (12.00-20.00); Blood Urea Nitrogen 7.7 mg/dL (9.0-27.0); Calcium 8.8 mg/dL (8.7-10.3); Carbon Dioxide 24.3 mmol/L (20.0-27.5); Chloride 107 mmol/L (96-109); Glucose 144 mg/dL (70-110); Non-African American GFR(CKD) 59.1 (60.0-200.0); Potassium 3.3 mmol/L (3.5-5.5); Sodium 142 mmol/L (135-145); Total Bilirubin <0.15 mg/dL (0.30-1.20); Total Protein 5.4 g/dL (6.2-8.2)
[2022-03-20] MEDS: ISOSORBIDE MONONITRATE ER 60 MG TAB.ER.24H PO SCH (10:29)
[2022-03-20] MEDS: ARIPiprazole 2 MG TAB PO SCH (10:29)
[2022-03-20 11:20] VITALS: BMI 33.5
[2022-03-20] MEDS ORDERED: PROPOFOL 10 MG/ML 20 ML VIAL IV ONE (11:30)
--- NOTE | 2022-03-20 11:43 | P.PCN ---
Date of Procedure: 03/20/22 Procedure(s) Performed: Preoperative Dx: Intractable vomiting, GERD Postoperative Dx: Gastritis, small hiatal hernia Procedure: EGD with Bx Anesthesia: Sedation Endoscopist: Dr. Saldivar Specimens: Antrum Endoscopic Procedure: The patient was on the endoscopy table in the left decubitus position. The Olympus gastroscope was inserted into the oropharynx and passed under direct visualization to the region of the third portion of the duodenum. From that point the scope was slowly withdrawn inspecting all surfaces carefully. There were no neoplastic inflammatory or polypoid lesions throughout the duodenum. The pylorus was widely patent. The stomach was carefully inspected. There was minimal gastritis present. A biopsy of the antrum took place to rule out H. pylori. The patient did have some retained food within the stomach. Retroflexion revealed a small sliding hiatal hernia. The esophagus was then carefully examined. There were no neoplastic inflammatory or polypoid lesions throughout the visualized esophagus. The patient was then taken to the recovery room in stable condition per anesthesia guidelines. Recommendations: Resume diet. Continue antiacids. Etiology for vomiting could be on the basis of gastroparesis. Consider gastric emptying study as outpatient.
[2022-03-20] MEDS ORDERED: IV FLUID CONTINUATION 1,000 ML IV ONE (11:44)
[2022-03-20 12:13] LABS: Glucose,Whole Blood 184 mg/dL (75-99)
--- NOTE | 2022-03-20 13:31 | P.DS ---
Providers Date of admission: 03/18/22 05:36 Expected date of discharge: 03/20/22 Attending physician: Evin Sanchez Consults: 03/18/22 14:00 Consult Physician Routine Consulting Provider: Yvan Saldivar Consult Reason/Comments: possible EGD Do you want consulting provider notified?: Yes Primary care physician: Dagmar [facility] Hospital Course: Diagnosis on discharge: 1. Nausea and vomiting, this time patient was started on IV Protonix Consultation for gastroenterology requested for possible EGD to rule out peptic ulcer disease Patient denies having EGD in the past Will also check stools for C. diff, check nasal swab for influenza A and B and COVID-19 2. Underlying history of insulin-dependent diabetes mellitus At this time patient is nothing by mouth, will hold home insulin and cover with sliding scale 3. Underlying history of coronary artery disease with multiple myocardial infarction in the past last one was 5-6 years ago Home medications reviewed and reordered 4. Underlying history of CVA in the past, with residual right sided weakness 5. Underlying history of tobacco abuse patient counseled in length in regard to smoking cessation 6. Underlying history of obstructive sleep apnea maintained on CPAP at home 7. 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 She was evaluated in the emergency room vital examination on presentation revealed a temperature of 99.6 pulse 85 respiration 18 blood pressure 157/83 pulse ox 99% on room air Laboratory data revealed a white blood count of 9.3 hemoglobin 10.8 platelet count 269 sodium 135 potassium 3.9 chloride 100 CO2 28 BUN 20 creatinine 1.35 glucose level 234 urine analysis was negative for nitrate and leukocyte esterase positive for protein and glucose, amylase and lipase were normal Testing in the emergency room revealed, no testing was done in the emergency room this visit, however patient had a computed tomography scan of the abdomen and pelvis with contrast on 03/10/2022 that revealed evidence of previous cholecystectomy, evidence of hepatomegaly otherwise no acute abnormality in the abdomen and pelvis. Patient was admitted to medical floor for further evaluation and treatment. 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 Patient denies any alcohol use, she still smokes a few cigarettes per day. 03/19/2020 patient was seen and examined on the medical floor she is alert and oriented 3 in no apparent distress she is still complaining of nausea otherwise she denies any complaints there is no fever or chills no headache or dizziness no chest pain no shortness of breath no cough no vomiting no abdominal pain no diarrhea and no urinary symptoms. Vital exam reveals a temperature of 97.8 pulse 64 respirations 17 blood pressure 119/72 pulse ox 99% on room air white blood count is 4.72 hemoglobin 9.0 platelet count 213 BUN 12.2 creatinine 1.2. Patient is scheduled for EGD tomorrow medication reviewed continue with current regimen will follow in a.m. On 03/20/2022 patient was seen and examined on the medical floor she is alert and oriented 3 in no apparent distress there is no fever or chills no headache or dizziness no chest pain no shortness of breath no cough no nausea or vomiting no abdominal pain no diarrhea no blood in the stools will burning with urination no frequency or urgency and no hematuria. Patient underwent an EGD this morning with Dr. Saldivar, and had evidence of mild gastritis with a small hiatal hernia, Pepcid was discontinued and patient was started on Protonix 40 mg by mouth daily. Patient was cleared for discharge. Recommendation from Dr. Saldivar is to proceed with gastric emptying test as outpatient to assess for gastroparesis as a cause for nausea and vomiting Patient Condition at Discharge: Fair Plan - Discharge Summary Discharge Rx Participant: No New Discharge Prescriptions: New Pantoprazole Sodium [Protonix] 40 mg PO DAILY 30 Days #30 tab Continue Citalopram Hydrobromide [CeleXA] 40 mg PO DAILY #1 tab Pregabalin [Lyrica] 150 mg PO BID lamoTRIgine 200 mg PO BID Magnesium Gluconate [Magonate] 500 mg PO HS Enalapril [Vasotec] 10 mg PO BID Aspirin [Adult Low Dose Aspirin EC] 81 mg PO HS DULoxetine HCL [Cymbalta] 60 mg PO DAILY Isosorbide Mononitrate ER [Imdur] 60 mg PO DAILY Carvedilol [Coreg] 25 mg PO BID Insulin Glargine,Hum.rec.anlog [Lantus Solostar Pen] 30 unit SQ BID ARIPiprazole [Abilify] 2 mg PO DAILY Clopidogrel [Plavix] 75 mg PO HS ALPRAZolam [Xanax] 2 mg PO DAILY metFORMIN HCL [Glucophage] 1,000 mg PO HS hydroCHLOROthiazide [Hydrodiuril] 25 mg PO DAILY tab Atorvastatin [Lipitor] 40 mg PO DAILY Cholecalciferol (Vitamin D3) [Vitamin D3 (125 MCG = 5,000 IU)] 125 mcg PO HS HYDROcodone/APAP 7.5-325MG [[place] 7.5-325] 1 tab PO TID metFORMIN HCL [Glucophage] 500 mg PO DAILY amLODIPine [Norvasc] 10 mg PO DAILY 30 Days #30 tab Insulin Aspart [NovoLOG Flexpen] See Protocol SQ DAILY PRN PRN Reason: Blood Sugar - High Dulaglutide [Trulicity] 3 mg SQ WE Ondansetron Odt [Zofran ODT] 4 mg PO Q8HR PRN #21 tab PRN Reason: Nausea Discontinued Famotidine 20 mg PO BID Discharge Medication List Citalopram Hydrobromide [CeleXA] 40 mg PO DAILY #1 tab 03/10/15 [Rx] Pregabalin [Lyrica] 150 mg PO BID 06/25/15 [History] lamoTRIgine 200 mg PO BID 07/30/16 [History] Magnesium Gluconate [Magonate] 500 mg PO HS 03/27/17 [History] Aspirin [Adult Low Dose Aspirin EC] 81 mg PO HS 11/26/17 [History] Enalapril [Vasotec] 10 mg PO BID 11/26/17 [History] DULoxetine HCL [Cymbalta] 60 mg PO DAILY 08/25/18 [History] Isosorbide Mononitrate ER [Imdur] 60 mg PO DAILY 09/08/18 [History] Carvedilol [Coreg] 25 mg PO BID 01/22/19 [History] ARIPiprazole [Abilify] 2 mg PO DAILY 11/08/20 [History] Clopidogrel [Plavix] 75 mg PO HS 11/08/20 [History] Insulin Glargine,Hum.rec.anlog [Lantus Solostar Pen] 30 unit SQ BID 11/08/20 [History] ALPRAZolam [Xanax] 2 mg PO DAILY 07/31/21 [History] Atorvastatin [Lipitor] 40 mg PO DAILY 07/31/21 [History] Cholecalciferol (Vitamin D3) [Vitamin D3 (125 MCG = 5,000 IU)] 125 mcg PO HS 07/31/21 [History] HYDROcodone/APAP 7.5-325MG [[place] 7.5-325] 1 tab PO TID 07/31/21 [History] metFORMIN HCL [Glucophage] 1,000 mg PO HS 07/31/21 [History] metFORMIN HCL [Glucophage] 500 mg PO DAILY 07/31/21 [History] hydroCHLOROthiazide [Hydrodiuril] 25 mg PO DAILY tab 08/03/21 [Rx] amLODIPine [Norvasc] 10 mg PO DAILY 30 Days #30 tab 01/17/22 [Rx] Dulaglutide [Trulicity] 3 mg SQ WE 03/10/22 [History] Insulin Aspart [NovoLOG Flexpen] See Protocol SQ DAILY PRN 03/10/22 [History] Ondansetron Odt [Zofran ODT] 4 mg PO Q8HR PRN #21 tab 03/10/22 [Rx] Pantoprazole Sodium [Protonix] 40 mg PO DAILY 30 Days #30 tab 03/20/22 [Rx] Follow up Appointment(s)/Referral(s): Dagmar Hennessy MD [Primary Care Provider] - 1-2 days
[2022-03-20 15:11] VITALS: BP 126/74; PULSE 66; RESP 16; TEMP 97.5
[2022-03-21] MEDS ORDERED: NON FORMULARY DRUG (Dulaglutide [Trulicity] 3 MG/0.5 ML Each) SQ SCH (09:00)
== END 2022-03-20 15:25 ==
LOC: EC 01:12 → 6NMEDSUR 05:36
PROVIDERS: ADMIT Internal Medicine; ATTEND Internal Medicine
DX: R11.2 Nausea with vomiting, unspecified (principal); U07.1 COVID-19; N17.9 Acute kidney failure, unspecified; E86.0 Dehydration; E11.65 Type 2 diabetes mellitus with hyperglycemia; G47.33 Obstructive sleep apnea (adult) (pediatric); K44.9 Diaphragmatic hernia without obstruction or gangrene; K29.70 Gastritis, unspecified, without bleeding; K52.9 Noninfective gastroenteritis and colitis, unspecified; I69.351 Hemiplegia and hemiparesis following cerebral infarction affecting right dominant side; D68.2 Hereditary deficiency of other clotting factors; F17.210 Nicotine dependence, cigarettes, uncomplicated; R16.0 Hepatomegaly, not elsewhere classified; I25.10 Atherosclerotic heart disease of native coronary artery without angina pectoris; I25.2 Old myocardial infarction; G25.81 Restless legs syndrome; K21.9 Gastro-esophageal reflux disease without esophagitis; E11.42 Type 2 diabetes mellitus with diabetic polyneuropathy; I10 Essential (primary) hypertension; E78.5 Hyperlipidemia, unspecified; M79.7 Fibromyalgia; G35 Multiple sclerosis; I73.9 Peripheral vascular disease, unspecified; F40.240 Claustrophobia; F32.A Depression, unspecified; F41.9 Anxiety disorder, unspecified; Z79.82 Long term (current) use of aspirin; Z79.84 Long term (current) use of oral hypoglycemic drugs; Z79.4 Long term (current) use of insulin; Z79.899 Other long term (current) drug therapy; Z79.02 Long term (current) use of antithrombotics/antiplatelets; Z88.1 Allergy status to other antibiotic agents; Z91.041 Radiographic dye allergy status; Z91.018 Allergy to other foods; Z88.2 Allergy status to sulfonamides; Z71.6 Tobacco abuse counseling; Z86.718 Personal history of other venous thrombosis and embolism; Z90.49 Acquired absence of other specified parts of digestive tract; Z85.43 Personal history of malignant neoplasm of ovary; Z87.19 Personal history of other diseases of the digestive system; Z85.41 Personal history of malignant neoplasm of cervix uteri; Z90.710 Acquired absence of both cervix and uterus; Z95.5 Presence of coronary angioplasty implant and graft; Z98.51 Tubal ligation status; Z86.010 Personal history of colon polyps; Z98.890 Other specified postprocedural states; Z83.3 Family history of diabetes mellitus; Z82.49 Family history of ischemic heart disease and other diseases of the circulatory system; Z82.5 Family history of asthma and other chronic lower respiratory diseases; Z80.0 Family history of malignant neoplasm of digestive organs
CPT/HCPCS: 96376 ×3; 96361 ×2; 96372 ×3; 96375 ×2; 96374; 99285; 36415; 88305; 80053 ×3; 82607; 82150; 82746; 83540; 83550; 83605; 83690 ×2; 83735; 84100; 85025 ×3; 81001; 87324; 87502; 83036; 43239; G0378 ×3; U0003; U0005; J2270; J2405 ×2; J1650 ×3; J2704; C9113 ×3

== ENCOUNTER 2022-07-19 17:10 | Observation (INO) | payer OTHER ==
[2022-07-19 18:06] LABS: Anisocytosis Slight; Basophils # (A) 0.1 k/uL (0-0.2); Basophils % (A) 1 %; Eosinophils # (A) 0.2 k/uL (0-0.7); Eosinophils % (A) 2 %; HCT 31.2 % (34.0-46.0); HGB 9.3 gm/dL (11.4-16.0); Hypochromasia Marked; Lymphocytes # (A) 1.6 k/uL (1.0-4.8); Lymphocytes % (A) 16 %; MCH 22.4 pg (25.0-35.0); MCHC 29.8 g/dL (31.0-37.0); MCV 75.3 fL (80.0-100.0); Mean Platelet Volume 10.8; Microcytosis Moderate; Monocytes # (A) 0.4 k/uL (0-1.0); Monocytes % (A) 4 %; Neutrophils # (A) 7.5 k/uL (1.3-7.7); Neutrophils % (A) 76 %; Platelet Count 255 k/uL (150-450); RBC 4.14 m/uL (3.80-5.40); WBC 9.8 k/uL (3.8-10.6)
[2022-07-19 18:19] LABS: Partial Thromboplastin Time 26.4 sec (22.0-30.0); Prothrombin Time 10.7 sec (9.0-12.0)
--- NOTE | 2022-07-19 18:21 | XR ---
EXAMINATION TYPE: XR chest 2V DATE OF EXAM: 07/19/2022 6:14 PM COMPARISON: Chest radiographs from 03/14/2022 TECHNIQUE: XR chest 2V Frontal and lateral views of the chest. CLINICAL INDICATION:Female, 51 years old with history of syncope; FINDINGS: Lungs/Pleura: There is no evidence of pleural effusion, focal consolidation, or pneumothorax. Left b asilar linear atelectasis. Pulmonary vascularity: Unremarkable. Heart/mediastinum: Cardiomediastinal silhouette is unremarkable. Musculoskeletal: No acute osseous pathology. IMPRESSION: Left basilar linear atelectasis otherwise no acute cardiopulmonary process.
[2022-07-19 18:29] LABS: Albumin 3.5 g/dL (3.5-5.0); Calcium 9.3 mg/dL (8.4-10.2); Potassium 4.2 mmol/L (3.5-5.1); Total Bilirubin 0.4 mg/dL (0.2-1.3); Total Protein 5.7 g/dL (6.3-8.2)
[2022-07-19] MEDS ORDERED: SODIUM CHLORIDE 0.9% 1,000 ML IV ONE (20:57)
--- NOTE | 2022-07-19 21:47 | CT ---
EXAMINATION TYPE: CT brain wo con CT DLP: 1133.4 mGycm, Automated exposure control for dose reduction was used. DATE OF EXAM: 07/19/2022 9:23 PM COMPARISON: Prior CT Brain from 01/15/2022 . CLINICAL INDICATION:Female, 51 years old with history of repeated LOC, syncope episodes. TECHNIQUE: Brain: Multiple axial CT images of the brain were obtained without IV contrast. Coronal and sagittal reformats reviewed. FINDINGS: Brain: Extra-axial spaces: No abnormal extra-axial fluid collections. Ventricular system: Ex vacuo dilatation of left lateral ventricle. Cerebral parenchyma: No acute intraparenchymal hemorrhage or mass effect. Persistent left basal gang amy chronic infarct with left estevez radiata and left centrum semiovale white matter hypodensity, sta ble. Cerebellum: Unremarkable. Mass effect: No evidence of midline shift. Intracranial vasculature: Atherosclerotic calcifications of the intracranial vessels. Soft tissues: Normal. Calvarium/osseous structures: No depressed skull fracture. Paranasal sinuses and mastoid air cells: Clear Visualized orbits: Orbital contents are intact. IMPRESSION: 1. No acute intracranial process. No significant change from prior examination. 2. Stable left-sided infarct as described above.
--- NOTE | 2022-07-19 22:26 | ED ---
General Adult HPI - General Chief complaint: Syncope Stated complaint: Syncope Time Seen by Provider: 07/19/22 20:44 Source: patient Mode of arrival: wheelchair Limitations: no limitations - History of Present Illness Initial comments: Patient is a 51-year-old female presenting with chief complaint of syncope. Patient has history of MS, has had previous strokes and MIs. Patient has had multiple syncopal episodes at home over the last 2 days. She denies any head injuries associated with these episodes. She admits to some nausea associated with the episodes. She denies any chest pain, shortness of breath, fever, chills, vomiting, URI-like symptoms, palpitations, abdominal pain, diarrhea, hematochezia, melena, dysuria, hematuria. - Related Data Home Medications Medication Instructions Recorded Confirmed Pregabalin [Lyrica] 150 mg PO BID 06/25/15 03/18/22 lamoTRIgine 200 mg PO BID 07/30/16 03/18/22 Magnesium Gluconate [Magonate] 500 mg PO HS 03/27/17 03/18/22 Aspirin [Adult Low Dose Aspirin EC] 81 mg PO HS 11/26/17 03/18/22 Enalapril [Vasotec] 10 mg PO BID 11/26/17 03/18/22 DULoxetine HCL [Cymbalta] 60 mg PO DAILY 08/25/18 03/18/22 Isosorbide Mononitrate ER [Imdur] 60 mg PO DAILY 09/08/18 03/18/22 carvediloL [Coreg] 25 mg PO BID 01/22/19 03/18/22 ARIPiprazole [Abilify] 2 mg PO DAILY 11/08/20 03/18/22 Clopidogrel [Plavix] 75 mg PO HS 11/08/20 03/18/22 Insulin Glargine,Hum.rec.anlog 30 unit SQ BID 11/08/20 03/18/22 [Lantus Solostar Pen] ALPRAZolam [Xanax] 2 mg PO DAILY 07/31/21 03/18/22 Atorvastatin [Lipitor] 40 mg PO DAILY 07/31/21 03/18/22 Cholecalciferol (Vitamin D3) 125 mcg PO HS 07/31/21 03/18/22 [Vitamin D3 (125 MCG = 5,000 IU)] HYDROcodone/APAP 7.5-325MG [[place] 1 tab PO TID 07/31/21 03/18/22 7.5-325] metFORMIN HCL [Glucophage] 1,000 mg PO HS 07/31/21 03/18/22 metFORMIN HCL [Glucophage] 500 mg PO DAILY 07/31/21 03/18/22 Dulaglutide [Trulicity] 3 mg SQ WE 03/10/22 03/18/22 Insulin Aspart [NovoLOG Flexpen] See Protocol SQ DAILY PRN 03/10/22 03/18/22 Previous Rx's Medication Instructions Recorded Citalopram Hydrobromide [CeleXA] 40 mg PO DAILY #1 tab 03/10/15 hydroCHLOROthiazide [Hydrodiuril] 25 mg PO DAILY tab 08/03/21 amLODIPine [Norvasc] 10 mg PO DAILY 30 Days #30 tab 01/17/22 Ondansetron Odt [Zofran ODT] 4 mg PO Q8HR PRN #21 tab 03/10/22 Pantoprazole Sodium [Protonix] 40 mg PO DAILY 30 Days #30 tab 03/20/22 Allergies Allergy/AdvReac Type Severity Reaction Status Date / Time Fish Containing Products Allergy Anaphylaxis Verified 07/19/22 17:34 Iodinated Contrast Media Allergy Anaphylaxis Verified 07/19/22 17:34 [Iodinated Contrast Media - IV Dye] Sulfa (Sulfonamide Allergy Anaphylaxis Verified 07/19/22 17:34 Antibiotics) sulfamethoxazole Allergy Anaphylaxis Verified 07/19/22 17:34 [From Septra] tree nut [Nut] Allergy Anaphylaxis Verified 07/19/22 17:34 trimethoprim [From Septra] Allergy Anaphylaxis Verified 07/19/22 17:34 Review of Systems ROS Statement: Those systems with pertinent positive or pertinent negative responses have been documented in the HPI. ROS Other: All systems not noted in ROS Statement are negative. Past Medical History Past Medical History: Blood Disorder, Coronary Artery Disease (CAD), Cancer, Chest Pain / Angina, CVA/TIA, Diabetes Mellitus, Deep Vein Thrombosis (DVT), Fibromyalgia, GERD/Reflux, Hyperlipidemia, Hypertension, Myocardial Infarction ([place]), Musculoskeletal Disorder, Neurologic Disorder, Sleep Apnea/CPAP/BIPAP, Vascular Disorder Additional Past Medical History / Comment(s): IDDM type II, uterine/cervical and ovarian cancer, restless leg, Factor V blood disorder, DVT R leg, 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 - slight foot drag when tired/neuropathies, MS, [place] X 5, ABIGAIL with Cpap use, PAD/legs, R leg edema, past pancreatitis. Last Myocardial Infarction Date:: Pt thinks 2015 History of Any Multi-Drug Resistant Organisms: None Reported Past Surgical History: Section, Cholecystectomy, Heart Catheterization With Stent, Hysterectomy, Tubal Ligation, Uterine Ablation Additional Past Surgical History / Comment(s): vein stripping right leg, radio frequency ablation of right back-02/22/2015, four stents on 04/03/16 and one on march 05, ovaries removed, colonscopy- polyp removal Past Anesthesia/Blood Transfusion Reactions: Motion Sickness Additional Past Anesthesia/Blood Transfusion Reaction / Comment(s): mild claustrophobia Date of Last Stent Placement:: 04/03/16 Past Psychological History: Anxiety, Depression Smoking Status: Current every day smoker Past Alcohol Use History: None Reported Past Drug Use History: None Reported - Past Family History Father Family Medical History: Congestive Heart Failure (CHF), Coronary Artery Disease (CAD), Diabetes Mellitus Mother Family Medical History: Cancer, COPD, Hypertension, Respiratory Disorder Additional Family Medical History / Comment(s): emphysema, colon CA General Exam Limitations: no limitations General appearance: alert, in no apparent distress Head exam: Present: atraumatic, normocephalic, normal inspection Eye exam: Present: normal appearance, EOMI. Absent: scleral icterus, periorbital swelling Neck exam: Present: normal inspection Respiratory exam: Present: normal lung sounds bilaterally. Absent: respiratory distress, wheezes, rales, rhonchi, stridor Cardiovascular Exam: Present: regular rate, normal rhythm, normal heart sounds. Absent: systolic murmur, diastolic murmur, rubs, gallop, clicks Neurological exam: Present: alert, oriented X3, CN II-XII intact Psychiatric exam: Present: normal affect, normal mood Skin exam: Present: warm, dry, intact, normal color. Absent: rash Course Vital Signs 07/19/22 17:29 Temperature 98.1 F Pulse Rate 70 Respiratory 20 Rate Blood Pressure 155/78 O2 Sat by Pulse 99 Oximetry Medical Decision Making - Medical Decision Making Patient is a 51-year-old female with history of NM is presenting with chief complaint of syncope. Patient has had multiple syncopal episodes at home, starting 2 days ago. On examination patient has residual right-sided deficit from previous strokes. WBC 9.8 hemoglobin 9.3. Sodium 134 BUN 20 creatinine 1.2, patient is receiving fluids. Glucose 349. Urine shows 3+ protein and 4+ glucose, urine sent for culture. CT shows no acute intracranial process and no significant change from prior exam, there is a stable left-sided infarct. Chest x-ray shows left basilar linear atelectasis otherwise no acute cardiopulmonary process. Patient will be admitted for neuro evaluation. I spoke with Dr. Sanchez who agreed to admit the patient. Patient was agreeable with this plan. I discussed this case with my attending Dr. Lewis - Lab Data Result diagrams: 07/19/22 17:52 07/19/22 17:52 Lab Results 07/19/22 07/19/22 07/19/22 Range/Units 17:52 17:52 17:52 WBC 9.8 (3.8-10.6) k/uL RBC 4.14 (3.80-5.40) m/uL Hgb 9.3 L (11.4-16.0) gm/dL Hct 31.2 L (34.0-46.0) % MCV 75.3 L (80.0-100.0) fL MCH 22.4 L (25.0-35.0) pg MCHC 29.8 L (31.0-37.0) g/dL RDW 18.0 H (11.5-15.5) % Plt Count 255 (150-450) k/uL MPV 10.8 Neutrophils % 76 % Lymphocytes % 16 % Monocytes % 4 % Eosinophils % 2 % Basophils % 1 % Neutrophils # 7.5 (1.3-7.7) k/uL Lymphocytes # 1.6 (1.0-4.8) k/uL Monocytes # 0.4 (0-1.0) k/uL Eosinophils # 0.2 (0-0.7) k/uL Basophils # 0.1 (0-0.2) k/uL Hypochromasia Marked Anisocytosis Slight Microcytosis Moderate PT 10.7 (9.0-12.0) sec INR 1.0 (<1.2) APTT 26.4 (22.0-30.0) sec Sodium 134 L (137-145) mmol/L Potassium 4.2 (3.5-5.1) mmol/L Chloride 102 (98-107) mmol/L Carbon Dioxide 24 (22-30) mmol/L Anion Gap 8 mmol/L BUN 20 H (7-17) mg/dL Creatinine 1.24 H (0.52-1.04) mg/dL Est GFR (CKD-EPI)AfAm 59 (>60 ml/min/1.73 sqM) Est GFR (CKD-EPI)NonAf 51 (>60 ml/min/1.73 sqM) Glucose 349 H (74-99) mg/dL Calcium 9.3 (8.4-10.2) mg/dL Total Bilirubin 0.4 (0.2-1.3) mg/dL AST 18 (14-36) U/L ALT 12 (4-34) U/L Alkaline Phosphatase 165 H (38-126) U/L Troponin I (0.000-0.034) ng/mL Total Protein 5.7 L (6.3-8.2) g/dL Albumin 3.5 (3.5-5.0) g/dL Urine Color Urine Appearance (Clear) Urine pH (5.0-8.0) Ur Specific [place] (1.001-1.035) Urine Protein (Negative) Urine Glucose (UA) (Negative) Urine Ketones (Negative) Urine Blood (Negative) Urine Nitrite (Negative) Urine Bilirubin (Negative) Urine Urobilinogen (<2.0) mg/dL Ur Leukocyte Esterase (Negative) Urine RBC (0-5) /hpf Urine WBC (0-5) /hpf Ur Squamous Epith Cells (0-4) /hpf Urine Bacteria (None) /hpf Hyaline Casts (0-2) /lpf 07/19/22 07/19/22 Range/Units 17:52 22:00 WBC (3.8-10.6) k/uL RBC (3.80-5.40) m/uL Hgb (11.4-16.0) gm/dL Hct (34.0-46.0) % MCV (80.0-100.0) fL MCH (25.0-35.0) pg MCHC (31.0-37.0) g/dL RDW (11.5-15.5) % Plt Count (150-450) k/uL MPV Neutrophils % % Lymphocytes % % Monocytes % % Eosinophils % % Basophils % % Neutrophils # (1.3-7.7) k/uL Lymphocytes # (1.0-4.8) k/uL Monocytes # (0-1.0) k/uL Eosinophils # (0-0.7) k/uL Basophils # (0-0.2) k/uL Hypochromasia Anisocytosis Microcytosis PT (9.0-12.0) sec INR (<1.2) APTT (22.0-30.0) sec Sodium (137-145) mmol/L Potassium (3.5-5.1) mmol/L Chloride (98-107) mmol/L Carbon Dioxide (22-30) mmol/L Anion Gap mmol/L BUN (7-17) mg/dL Creatinine (0.52-1.04) mg/dL Est GFR (CKD-EPI)AfAm (>60 ml/min/1.73 sqM) Est GFR (CKD-EPI)NonAf (>60 ml/min/1.73 sqM) Glucose (74-99) mg/dL Calcium (8.4-10.2) mg/dL Total Bilirubin (0.2-1.3) mg/dL AST (14-36) U/L ALT (4-34) U/L Alkaline Phosphatase (38-126) U/L Troponin I <0.012 (0.000-0.034) ng/mL Total Protein (6.3-8.2) g/dL Albumin (3.5-5.0) g/dL Urine Color Light Yellow Urine Appearance Clear (Clear) Urine pH 6.0 (5.0-8.0) Ur Specific [place] 1.017 (1.001-1.035) Urine Protein 3+ H (Negative) Urine Glucose (UA) 4+ H (Negative) Urine Ketones Negative (Negative) Urine Blood Negative (Negative) Urine Nitrite Negative (Negative) Urine Bilirubin Negative (Negative) Urine Urobilinogen <2.0 (<2.0) mg/dL Ur Leukocyte Esterase Negative (Negative) Urine RBC 1 (0-5) /hpf Urine WBC 1 (0-5) /hpf Ur Squamous Epith Cells 1 (0-4) /hpf Urine Bacteria Rare H (None) /hpf Hyaline Casts 1 (0-2) /lpf Disposition Clinical Impression: Syncope Disposition: ADMITTED IP TO THIS [facility] Condition: Fair Time of Disposition: 23:23 Decision to Admit Reason: Admit from EC Decision Date: 07/19/22 Decision Time: 23:23
[2022-07-19] MEDS ORDERED: NALOXONE 0.4 MG/ML 1 ML VIAL IV PRN (23:17)
[2022-07-19 23:48] LABS: Appearance,Urine Clear (Clear); Bacteria,Urine Rare /hpf; Bilirubin,Urine Negative (Negative); Blood,Urine Negative (Negative); Color,Urine Light Yellow; Glucose,Urine (UA) 4+ (Negative); Hyaline Casts,Urine 1 /lpf (0-2); Ketones,Urine Negative (Negative); Leukocyte Esterase,Urine Negative (Negative); Nitrite,Urine Negative (Negative); Protein,Urine 3+ (Negative); RBC,Urine 1 /hpf (0-5); Specific Gravity,Urine 1.017 (1.001-1.035); Squamous Epithelial Cell,Urine 1 /hpf (0-4); Urobilinogen,Urine <2.0 mg/dL (<2.0); WBC,Urine 1 /hpf (0-5)
[2022-07-20] MEDS: SODIUM CHLORIDE 0.9% 1,000 ML IV SCH ×3 (00:05→21:40)
[2022-07-20] MEDS ORDERED: ONDANSETRON ODT 4 MG TAB PO PRN (09:16)
[2022-07-20] MEDS ORDERED: DEXTROSE 50% SYRINGE 50 ML IVP PRN ×2 (09:19)
--- NOTE | 2022-07-20 10:37 | P.HPIM ---
History of Present Illness H&P Date: 07/20/22 Chief Complaint: Syncopal episodes This is a 51-year-old female patient of Dr. Hennessy who presented with concerns of syncopal episodes. Patient reports that she had multiple episodes of syncope yesterday denies any chest pain or associated head injury. Patient does report nausea with the episodes. Patient denies any recent illness. Patient does have a past medical history of MS, previous CVA, [place], diabetes mellitus, DVT, fibromyalgia, right-sided deficit from previous CVA, anxiety and depression and nicotine dependence. Chest x-ray was completed in ER showing left basilar and linear atelectasis otherwise no acute cardiopulmonary process. Head CT completed showing no acute intracranial process no significant change from prior exams stable left-sided infarct as described above. At this time patient is demented cardiology and neurology services have been consulted 2-D echo carotid Dopplers ordered. Patient is currently resting comfortably in bed. Patient c omplains of tenderness to left sabianism. Patient denies chest pain. Patient denies nausea vomiting or diarrhea. Patient denies any urinary burning or frequency Review of Systems please refer to HPI otherwise unremarkable Past Medical History Past Medical History: Blood Disorder, Coronary Artery Disease (CAD), Cancer, Chest Pain / Angina, CVA/TIA, Diabetes Mellitus, Deep Vein Thrombosis (DVT), Fibromyalgia, GERD/Reflux, Hyperlipidemia, Hypertension, Myocardial Infarction ([place]), Musculoskeletal Disorder, Neurologic Disorder, Sleep Apnea/CPAP/BIPAP, Vascular Disorder Additional Past Medical History / Comment(s): IDDM type II, uterine/cervical and ovarian cancer, restless leg, Factor V blood disorder, DVT R leg, 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 Last Myocardial Infarction Date:: Pt think2015 History of Any Multi-Drug Resistant Organisms: None Reported Past Surgical History: Section, Cholecystectomy, Heart Catheterization With Stent, Hysterectomy, Tubal Ligation, Uterine Ablation Additional Past Surgical History / Comment(s): vein stripping right leg, radio frequency ablation of right back-02/22/2015, four stents on 04/03/16 and one on march 05, ovaries removed, colonscopy- polyp removal Past Anesthesia/Blood Transfusion Reactions: Motion Sickness Additional Past Anesthesia/Blood Transfusion Reaction / Comment(s): mild claustrophobia Date of Last Stent Placement:: 04/03/16 Past Psychological History: Anxiety, Depression Smoking Status: Current every day smoker Past Alcohol Use History: None Reported Past Drug Use History: None Reported - Past Family History Father Family Medical History: Congestive Heart Failure (CHF), Coronary Artery Disease (CAD), Diabetes Mellitus Mother Family Medical History: Cancer, COPD, Hypertension, Respiratory Disorder Additional Family Medical History / Comment(s): emphysema, colon CA Medications and Allergies Home Medications Medication Instructions Recorded Confirmed Type Citalopram Hydrobromide [CeleXA] 40 mg PO DAILY #1 tab 03/10/15 07/20/22 Rx Pregabalin [Lyrica] 150 mg PO TID 06/25/15 07/20/22 History lamoTRIgine 200 mg PO BID 07/30/16 07/20/22 History Magnesium Gluconate [Magonate] 500 mg PO HS 03/27/17 07/20/22 History Aspirin [Adult Low Dose Aspirin EC] 81 mg PO HS 11/26/17 07/20/22 History Enalapril [Vasotec] 10 mg PO BID 11/26/17 07/20/22 History DULoxetine HCL [Cymbalta] 60 mg PO DAILY 08/25/18 07/20/22 History Isosorbide Mononitrate ER [Imdur] 60 mg PO DAILY 09/08/18 07/20/22 History carvediloL [Coreg] 25 mg PO BID 01/22/19 07/20/22 History ARIPiprazole [Abilify] 2 mg PO DAILY 11/08/20 07/20/22 History Insulin Glargine,Hum.rec.anlog 30 unit SQ BID 11/08/20 07/20/22 History [Lantus Solostar Pen] ALPRAZolam [Xanax] 2 mg PO DAILY 07/31/21 07/20/22 History Atorvastatin [Lipitor] 40 mg PO DAILY 07/31/21 07/20/22 History Cholecalciferol (Vitamin D3) 125 mcg PO HS 07/31/21 07/20/22 History [Vitamin D3 (125 MCG = 5,000 IU)] amLODIPine [Norvasc] 10 mg PO DAILY 30 Days #30 tab 01/17/22 07/20/22 Rx Ondansetron Odt [Zofran ODT] 4 mg PO Q8HR PRN #21 tab 03/10/22 07/20/22 Rx Pantoprazole Sodium [Protonix] 40 mg PO DAILY 30 Days #30 tab 03/20/22 07/20/22 Rx Insulin Lispro Protamin/Lispro 25 unit SQ HS 07/20/22 07/20/22 History [humaLOG Mix 75-25 Kwikpen] Insulin Lispro Protamin/Lispro 30 unit SQ QAM 07/20/22 07/20/22 History [humaLOG Mix 75-25 Kwikpen] metFORMIN HCL ER [Glucophage XR] 500 mg PO BID-W/MEALS 07/20/22 07/20/22 History Allergies Allergy/AdvReac Type Severity Reaction Status Date / Time Fish Containing Products Allergy Anaphylaxis Verified 07/19/22 17:34 Iodinated Contrast Media Allergy Anaphylaxis Verified 07/19/22 17:34 [Iodinated Contrast Media - IV Dye] Sulfa (Sulfonamide Allergy Anaphylaxis Verified 07/19/22 17:34 Antibiotics) sulfamethoxazole Allergy Anaphylaxis Verified 07/19/22 17:34 [From Junra] tree nut [Nut] Allergy Anaphylaxis Verified 07/19/22 17:34 trimethoprim [From Junra] Allergy Anaphylaxis Verified 07/19/22 17:34 Physical Exam Vitals: Vital Signs Temp Pulse Pulse Pulse Pulse Resp BP 07/20/22 07:16 76 16 07/20/22 07:00 98.1 F 77 84 76 20 07/19/22 17:29 98.1 F 70 20 155/78 BP BP BP Pulse Ox 07/20/22 07:16 95 07/20/22 07:00 192/87 141/81 190/74 94 L 07/19/22 17:29 99 Intake and Output 07/19/22 07/20/22 07/20/22 22:59 06:59 14:59 Other: Weight 91.172 kg Head normocephalic Neck supple Lungs clear to auscultation bilaterally no wheezing or crackles Heart regular rate and rhythm S1-S2, no rub or gallop Abdomen is soft nontender nondistended positive bowel sounds no hepatosplenomegaly Extremities no edema Neuro alert and orientated to 3 Results CBC & Chem 7: 07/19/22 17:52 07/19/22 17:52 Labs: Abnormal Lab Results - Last 24 Hours (Table) 07/19/22 07/19/22 07/19/22 Range/Units 17:52 17:52 22:00 Hgb 9.3 L (11.4-16.0) gm/dL Hct 31.2 L (34.0-46.0) % MCV 75.3 L (80.0-100.0) fL MCH 22.4 L (25.0-35.0) pg MCHC 29.8 L (31.0-37.0) g/dL RDW 18.0 H (11.5-15.5) % Sodium 134 L (137-145) mmol/L BUN 20 H (7-17) mg/dL Creatinine 1.24 H (0.52-1.04) mg/dL Glucose 349 H (74-99) mg/dL Alkaline Phosphatase 165 H (38-126) U/L Total Protein 5.7 L (6.3-8.2) g/dL Urine Protein 3+ H (Negative) Urine Glucose (UA) 4+ H (Negative) Urine Bacteria Rare H (None) /hpf Assessment and Plan Assessment: 1. Syncopal episodes 2. History of insulin-dependent diabetes mellitus 3. History of coronary artery disease with multiple myocardial infarctions 4. History of CVA with residual right-sided weakness 5. History of nicotine dependence. Nicotine patch will be ordered patient educated at length in regards to smoking cessation 6. 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 GI prophylaxis Protonix Cardiology and neurology service is consulted 2-D echo and carotid Doppler ordered Repeat labs ordered for a.m. Time with Patient: Greater than 30 (Greater than 60% of the total time spent in counseling and coordination of care)
[2022-07-20] MEDS: DULoxetine HCL 60 MG CAPSULE.DR PO SCH (10:56)
[2022-07-20] MEDS: lisinopriL 20 MG TAB PO SCH (10:56)
[2022-07-20] MEDS: amLODIPine 10 MG TAB PO SCH (10:57)
[2022-07-20] MEDS: lamoTRIgine 100 MG TAB PO SCH ×2 (10:57→21:39)
[2022-07-20] MEDS: PREGABALIN 75 MG CAP PO SCH ×3 (10:57→21:58)
[2022-07-20] MEDS: carvediloL 12.5 MG TAB PO SCH ×2 (10:58→18:26)
[2022-07-20] MEDS: ARIPiprazole 2 MG TAB PO SCH (10:58)
[2022-07-20] MEDS: ALPRAZolam 1 MG TAB PO SCH (11:01)
--- NOTE | 2022-07-20 11:12 | P.CRDCN ---
History of Present Illness History of present illness: This is a pleasant 51-year-old female past medical history significant for CVA , factor V deficiency, coronary artery disease status post prior PCI to LAD, diagonal and RCA, hypertension, dyslipidemia, diabetes mellitus and chronic nicotine dependence. She follows in the office with Dr. Jasso. We have been asked to see in consultation for syncope. Patient presents to the ER with complaints of episodes at home where she "passes out". She states she is sitting when these occur. Prior to passing out she has some blurry vision and lightheadedness. She then does not remember what happens and then wakes up on the couch/chair. She has no chest pain, shortness of breath, palpitations, incontinence of bowel/bladder, no focal weakness, no dizziness. She is unsure how long they last. The last episode she said her has difficulty waking her up. She has been having these episodes for the past week. She states she has had 4 episodes on Saturday. She denies her telling her she had any seizure like activity, no incontinence. On exam, patient is oriented x 3, however, somnolent, falling asleep during evaluation. DIAGNOSTICS * EKG reveals sinus rhythm, heart rate 69, right bundle-branch block, nonspecific ST- T wave abnormalities. Prior EKG in February 2022 with similar findings * Telemetry tracings indicate sinus rhythm with heart rate 6070s * Lexiscan stress test 02/07/2022 revealed no evidence of stress-induced ischemic change * Echocardiogram 01/16/2022 revealed EF of 60-65%, trace mitral regurgitation, mildly dilated left atrium * Most recent cardiac catheterization performed in 2017 revealed a patent stent in the LAD, diagonal branch and RCA with mild nonobstructive disease noted in the RCA and LAD. * Chest xray reporting left basilar atelectasis, no acute cardiopulmonary process * Brain CT revealed stable left sided infarct, no acute intracranial process, no significant change from prior exam * Laboratory reviewed, WBC 9.8, hemoglobin 9.3, platelets 255, sodium 134, potassium 4.2, BUN 20, serum creatinine 1.24, troponin negative * Current home cardiac medications include Coreg 25 mg twice a day, amlodipine 10 mg daily, Imdur 60 mg daily, lisinopril 10 mg twice a day, atorvastatin 40 mg daily, aspirin 81 mg nightly REVIEW OF SYSTEMS At the time of my exam: CONSTITUTIONAL: Denies fever or chills. CARDIOVASCULAR: Denies chest pain, shortness of breath, orthopnea, PND or palpitations. RESPIRATORY: Denies cough. GASTROINTESTINAL: Denies abdominal pain, diarrhea, constipation, nausea or vomiting. MUSCULOSKELETAL: Denies myalgias. NEUROLOGIC: Denies numbness, tingling, headacbe or weakness. ENDOCRINE: Denies fatigue, weight change, polydipsia or polyurina. GENITOURINARY: Denies burning, hematuria or urgency with micturation. HEMATOLOGIC: Denies history of anemia or bleeding. PHYSICAL EXAMINATION Blood pressure 141/81, heart rate 84, afebrile, oxygen saturation 94% on room air Patient does have positive orthostatic blood pressure from sitting to standing CONSTITUTIONAL: No apparent distress. HEENT: Head is normocephalic. Pupils are equal, round. Sclerae anicteric. Mucous membranes of the mouth are moist. No JVD. No carotid bruit. CHEST EXAMINATION: Lungs are clear to auscultation. No chest wall tenderness is noted on palpation or with deep breathing. HEART EXAMINATION: Regular rate and rhythm. S1, S2 heard. No murmurs, gallops or rub. ABDOMEN: Soft, nontender. Positive bowel sounds. EXTREMITIES: 2+ peripheral pulses, no lower extremity edema and no calf tenderness. NEUROLOGIC EXAMINATION: Patient is lethargic/somnolent. Oriented x 3. Right sided weakness from prior CVA ASSESSMENT Possible syncopal episodes,while sitting, with reports of blurry vision and difficulty to arouse Increased somnolence Acute kidney injury History of CVA with right residual weakness Coronary artery disease status post prior PCI to LAD, diagonal and RCA Hypertension Dyslipidemia Type 2 diabetes Chronic nicotine dependence History of Factor V deficiency PLAN Obtain 2D echocardiogram and doppler study to assess cardiac structure and function Restart home cardiac medications, monitor blood pressure Monitor on cardiac telemetry At this time, no obvious cardiac etiology for episodes Further recommendations based on clinical course Nurse practitioner note has been reviewed by physician. Signing provider agrees with the documented findings, assessment, and plan of care. 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 Last Myocardial Infarction Date:: Pt thinks 2015 History of Any Multi-Drug Resistant Organisms: None Reported Past Surgical History: Section, Cholecystectomy, Heart Catheterization With Stent, Hysterectomy, Tubal Ligation, Uterine Ablation Additional Past Surgical History / Comment(s): vein stripping right leg, radio frequency ablation of right back-02/22/2015, four stents on 04/03/16 and one on march 05, ovaries removed, colonscopy- polyp removal Past Anesthesia/Blood Transfusion Reactions: Motion Sickness Additional Past Anesthesia/Blood Transfusion Reaction / Comment(s): mild claustrophobia Date of Last Stent Placement:: 04/03/16 Past Psychological History: Anxiety, Depression Smoking Status: Current every day smoker Past Alcohol Use History: None Reported Past Drug Use History: None Reported - Past Family History Father Family Medical History: Congestive Heart Failure (CHF), Coronary Artery Disease (CAD), Diabetes Mellitus Mother Family Medical History: Cancer, COPD, Hypertension, Respiratory Disorder Additional Family Medical History / Comment(s): emphysema, colon CA Medications and Allergies Home Medications Medication Instructions Recorded Confirmed Type Citalopram Hydrobromide [CeleXA] 40 mg PO DAILY #1 tab 03/10/15 07/20/22 Rx Pregabalin [Lyrica] 150 mg PO TID 06/25/15 07/20/22 History lamoTRIgine 200 mg PO BID 07/30/16 07/20/22 History Magnesium Gluconate [Magonate] 500 mg PO HS 03/27/17 07/20/22 History Aspirin [Adult Low Dose Aspirin EC] 81 mg PO HS 11/26/17 07/20/22 History Enalapril [Vasotec] 10 mg PO BID 11/26/17 07/20/22 History DULoxetine HCL [Cymbalta] 60 mg PO DAILY 08/25/18 07/20/22 History Isosorbide Mononitrate ER [Imdur] 60 mg PO DAILY 09/08/18 07/20/22 History carvediloL [Coreg] 25 mg PO BID 01/22/19 07/20/22 History ARIPiprazole [Abilify] 2 mg PO DAILY 11/08/20 07/20/22 History Insulin Glargine,Hum.rec.anlog 30 unit SQ BID 11/08/20 07/20/22 History [Lantus Solostar Pen] ALPRAZolam [Xanax] 2 mg PO DAILY 07/31/21 07/20/22 History Atorvastatin [Lipitor] 40 mg PO DAILY 07/31/21 07/20/22 History Cholecalciferol (Vitamin D3) 125 mcg PO HS 07/31/21 07/20/22 History [Vitamin D3 (125 MCG = 5,000 IU)] amLODIPine [Norvasc] 10 mg PO DAILY 30 Days #30 tab 01/17/22 07/20/22 Rx Ondansetron Odt [Zofran ODT] 4 mg PO Q8HR PRN #21 tab 03/10/22 07/20/22 Rx Pantoprazole Sodium [Protonix] 40 mg PO DAILY 30 Days #30 tab 03/20/22 07/20/22 Rx Insulin Lispro Protamin/Lispro 25 unit SQ HS 07/20/22 07/20/22 History [humaLOG Mix 75-25 Kwikpen] Insulin Lispro Protamin/Lispro 30 unit SQ QAM 07/20/22 07/20/22 History [humaLOG Mix 75-25 Kwikpen] metFORMIN HCL ER [Glucophage XR] 500 mg PO BID-W/MEALS 07/20/22 07/20/22 History Allergies Allergy/AdvReac Type Severity Reaction Status Date / Time Fish Containing Products Allergy Anaphylaxis Verified 07/19/22 17:34 Iodinated Contrast Media Allergy Anaphylaxis Verified 07/19/22 17:34 [Iodinated Contrast Media - IV Dye] Sulfa (Sulfonamide Allergy Anaphylaxis Verified 07/19/22 17:34 Antibiotics) sulfamethoxazole Allergy Anaphylaxis Verified 07/19/22 17:34 [From ] tree nut [Nut] Allergy Anaphylaxis Verified 07/19/22 17:34 trimethoprim [From ] Allergy Anaphylaxis Verified 07/19/22 17:34 Physical Exam Vitals: Vital Signs Temp Pulse Pulse Pulse Pulse Resp BP 07/20/22 07:16 76 16 07/20/22 07:00 98.1 F 77 84 76 20 07/19/22 17:29 98.1 F 70 20 155/78 BP BP BP Pulse Ox 07/20/22 07:16 95 07/20/22 07:00 192/87 141/81 190/74 94 L 07/19/22 17:29 99 Intake and Output 07/19/22 07/20/22 07/20/22 22:59 06:59 14:59 Other: Weight 91.172 kg Results 07/19/22 17:52 07/19/22 17:52 Cardiac Enzymes 07/19/22 07/19/22 Range/Units 17:52 17:52 AST 18 (14-36) U/L Troponin I <0.012 (0.000-0.034) ng/mL Coagulation 07/19/22 Range/Units 17:52 PT 10.7 (9.0-12.0) sec APTT 26.4 (22.0-30.0) sec CBC 07/19/22 Range/Units 17:52 WBC 9.8 (3.8-10.6) k/uL RBC 4.14 (3.80-5.40) m/uL Hgb 9.3 L (11.4-16.0) gm/dL Hct 31.2 L (34.0-46.0) % Plt Count 255 (150-450) k/uL Comprehensive Metabolic Panel 07/19/22 Range/Units 17:52 Sodium 134 L (137-145) mmol/L Potassium 4.2 (3.5-5.1) mmol/L Chloride 102 (98-107) mmol/L Carbon Dioxide 24 (22-30) mmol/L BUN 20 H (7-17) mg/dL Creatinine 1.24 H (0.52-1.04) mg/dL Glucose 349 H (74-99) mg/dL Calcium 9.3 (8.4-10.2) mg/dL AST 18 (14-36) U/L ALT 12 (4-34) U/L Alkaline Phosphatase 165 H (38-126) U/L Total Protein 5.7 L (6.3-8.2) g/dL Albumin 3.5 (3.5-5.0) g/dL Current Medications Generic Name Dose Route Start Last Admin Trade Name Freq PRN Reason Stop Dose Admin Alprazolam 2 mg 07/20/22 09:30 Alprazolam 1 Mg Tab PO DAILY [facility] Amlodipine Besylate 10 mg 07/20/22 09:16 Amlodipine 10 Mg Tab PO DAILY [facility] Aripiprazole 2 mg 07/20/22 09:30 Aripiprazole 2 Mg Tab PO DAILY [facility] Aspirin 81 mg 07/20/22 21:00 Aspirin 81 Mg PO HS [facility] Atorvastatin Calcium 40 mg 07/21/22 09:00 Atorvastatin 40 Mg Tab PO DAILY [facility] Carvedilol 25 mg 07/20/22 09:30 Carvedilol 12.5 Mg Tab PO AC-BID [facility] Cholecalciferol 125 mcg 07/20/22 21:00 Cholecalciferol 125 Mcg (5000 Iu) Tablet PO HS [facility] Citalopram Hydrobromide 40 mg 07/21/22 09:00 Citalopram Hydrobromide 20 Mg Tab PO DAILY [facility] Dextrose/Water 25 ml 07/20/22 09:19 Dextrose 50% Syringe 50 Ml IVP PER PROTOCOL PRN Hypoglycemia Protocol Dextrose/Water 50 ml 07/20/22 09:19 Dextrose 50% Syringe 50 Ml IVP PER PROTOCOL PRN Hypoglycemia Protocol Duloxetine HCl 60 mg 07/20/22 09:30 Duloxetine Hcl 60 Mg Capsule.Dr PO DAILY [facility] Enoxaparin Sodium 40 mg 07/21/22 09:00 Enoxaparin 40 Mg/0.4 Ml Syringe SQ DAILY [facility] Sodium Chloride 1,000 mls @ 75 mls/hr 07/19/22 23:30 07/20/22 00:05 Saline 0.9% IV 75 mls/hr .[id number] [facility] Administration Insulin Aspart 0 unit 07/20/22 12:30 Insulin Aspart (Novolog) 100 Unit/Ml Vial SQ ACHS [facility] Protocol Insulin Detemir 30 unit 07/20/22 21:00 Insulin Detemir (Levemir) 100 Unit/Ml Syr SQ BID@0700,2100 [facility] Isosorbide Mononitrate 60 mg 07/21/22 09:00 Isosorbide Mononitrate Er 60 Mg Tab.Er.24h PO DAILY [facility] Lamotrigine 200 mg 07/20/22 09:30 Lamotrigine 100 Mg Tab PO BID [facility] Lisinopril 40 mg 07/20/22 09:30 Lisinopril 20 Mg Tab PO DAILY [facility] Magnesium Oxide 400 mg 07/20/22 21:00 Magnesium Oxide 400 Mg Tab PO HS [facility] Naloxone HCl 0.2 mg 07/19/22 23:17 Naloxone 0.4 Mg/Ml 1 Ml Vial IV Q2M PRN Opioid Reversal Nicotine 1 patch 07/21/22 09:00 Nicotine 14mg/24hr Patch TRANSDERM DAILY [facility] Ondansetron HCl 4 mg 07/20/22 09:16 Ondansetron Odt 4 Mg Tab PO Q8HR PRN Nausea Pantoprazole Sodium 40 mg 07/21/22 09:00 Pantoprazole 40 Mg Tablet PO DAILY [facility] Pregabalin 150 mg 07/20/22 09:30 Pregabalin 75 Mg Cap PO TID [facility] Intake and Output 07/19/22 07/20/22 07/20/22 22:59 06:59 14:59 Other: Weight 91.172 kg 07/19/22 17:52 07/19/22 17:52
[2022-07-20] MEDS: INSULIN ASPART (NovoLOG) 100 UNIT/ML VIAL SQ SCH ×3 (12:16→21:38)
--- NOTE | 2022-07-20 15:08 | US ---
EXAMINATION TYPE: US carotid duplex BILAT DATE OF EXAM: 07/20/2022 COMPARISON: Carotid ultrasound 06/26/2015 CLINICAL HISTORY: syncopal episode. TECHNIQUE: Carotid duplex ultrasound examination. Indirect Doppler criteria was utilized. FINDINGS: EXAM MEASUREMENTS: RIGHT: Peak Systolic Velocity (PSV) cm/sec ----- Right CCA: 85.1 ----- Right ICA: 94.2 ----- Right ECA: 86.4 ICA/CCA ratio: 1.11 RIGHT: End Diastole cm/sec ----- Right CCA: 17.5 ----- Right ICA: 15.6 ----- Right ECA: 7.8 LEFT: Peak Systolic Velocity (PSV) cm/sec ----- Left CCA: 86.1 ----- Left ICA: 76.9 ----- Left ECA: 110.0 ICA/CCA ratio: 0.89 LEFT: End Diastole cm/sec ----- Left CCA: 13.8 ----- Left ICA: 20.1 ----- Left ECA: 0.0 VERTEBRALS (direction of flow): Right Vertebral: Antegrade Left Vertebral: Antegrade Rhythm: Normal HEART DOCTOR NOTES: No significant stenosis seen. No elevated velocities. IMPRESSION: No hemodynamically significant carotid arterial stenosis identified. Criteria for Assigning % of Stenosis / Diameter reduction (Estimation based on the indirect measurements of the internal carotid artery velocities (ICA PSV). 1. Normal (no stenosis)=ICA PSV < 125 cm/s: ratio < 2.0: ICA EDV<40 cm/s. 2. Less than 50% stenosis=ICA PSV < 125 cm/s: ratio < 2.0: ICA EDV<40 cm/s. 3. 50 to 69% stenosis=ICA PSV of 125 to 230 cm/s: ration 2.0 ? 4.0: ICA EDV 40-100 cm/s. 4. Greater than 70% stenosis to near occlusion= ICA PSV > 230 cm/s: ratio > 4.0: ICA EDV > 100 cm/s. 5. Near occlusion= ICA PSV velocities may be low or undetectable: variable ratio and ICA EDV. 6. Total occlusion=unable to detect flow.
--- NOTE | 2022-07-20 17:17 | P.CNNES ---
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 Brooks came to the hospital yesterday at 5:10 PM for recurrent syncopal spells. Patient states that in the last few days she has been passing out. Patient lives with her . Patient is mostly wheelchair bound since she suffered from a CVA in 2014. She only walks with assistance otherwise stays in the wheelchair. Patient states that in the last few days she has been having headaches, shooting pain pointing to the temporal region and also syncopal spells. On Saturday, she passed out 3 times, Saturday 2 times and yesterday on she had 4 spells. Each time she is sitting in the wheelchair. She does not remember if she ever passed out while she was laying in the bed. Patient states with the last syncopal spell, when her came back, her hand was in the purse and she was drooling all over on the wallet. She was out for about 10-15 minutes before she woke up. She did not lose control of urine or bit her tongue. Patient states that with another syncopal spells, she would be sitting, drinking coffee with her , and her head kept on falling down "like taking a nap". She would not wake up i mmediately. Patient states that she does not remember any of those spells. Patient states that in 2013, she had similar recurrent syncopal spells that occurred off and on for a few months. She had testing done, and could not find the cause. The syncopal spells quit happening and she was fine until recently as above. Vital signs arrival blood pressure 155/78 pulse is 70 temperature 98.1. Blood test shows normal WBC hemoglobin 9.3, platelets are 255. PT/PTT normal, sodium 134 potassium 4.2, BUN 20, creatinine 1.24. Blood glucose elevated 349. Hepatic panel is normal. Troponin negative. UA is negative. Patient's last hemoglobin A1c 9.6 on 03/19/2022. Patient has diabetes at least as far as 04/01/2014 when her A1c was 9.2. It has mostly been not controlled since then. Patient had normal B12 of 1538 on 03/19/2022, and folate > 20.0. TSH is normal. B6 was very low <2. patient had Covid positive on 03/18/2022. Height JCV antibodies are +0.65. Patient has previously been seen by Dr. Pierre in neurology consultation on 06/23/2019 for worsened right-sided numbness and weakness. Patient has history of CVA in the same distribution. MRI of the brain was initiated, TTE. Patient has history of an acute stroke confirmed on MRI from 03/03/2015, which involved the left centrum semiovale and periventricular white region. I personally reviewed MRI of the date, I agree with the findings. Patient's last 2-D echo from 01/16/2022 showed normal left ventricular size, moderate concentric LVH, EF is between 60-65%. Left atrium is mildly dilated. Patient states she has history of 4 strokes in the past. She has diabetes for last 10 years, which is not controlled. She has hypertension. She also has been diagnosed with MS by Dr. Brooks, currently on Ocrevus for last 2 years. The last infusion she received was last month. She smoked half pack per day for 5 years, quit 6 months ago. Denies any alcohol or drug or marijuana use. Patient's home medications include Celexa 40 mg, Lyrica 150 mg 3 times a day, Lamictal 200 mg twice a day, enalapril, aspirin 81 mg, Cymbalta 60 mg, isosorbide, Coreg 25 mg twice a day, insulin, and Abilify 2 mg, Xanax 2 mg daily, Lipitor 40 mg, vitamin D, amlodipine 10 mg, Protonix, metformin. Review of Systems Constitutional: Denies chills, Denies fever Eyes: denies blurred vision, denies pain Ears, nose, mouth and throat: Reports headache, Denies sore throat Cardiovascular: Denies chest pain, Denies shortness of breath Respiratory: Denies cough Gastrointestinal: Denies abdominal pain, Denies diarrhea, Denies nausea, Denies vomiting Genitourinary: Denies dysuria, Denies hematuria Musculoskeletal: Reports gait dysfunction, Reports muscle weakness Integumentary: Denies pruritus, Denies rash Neurological: Reports as per HPI Psychiatric: Denies anxiety, Denies depression Endocrine: Denies fatigue, Denies weight change Hematologic/Lymphatic: Denies easy bruising Allergic/Immunologic: Denies persistent infections Past Medical History Past Medical History: Blood Disorder, Coronary Artery Disease (CAD), Cancer, Chest Pain / Angina, CVA/TIA, Diabetes Mellitus, Deep Vein Thrombosis (DVT), Fibromyalgia, GERD/Reflux, Hyperlipidemia, Hypertension, Myocardial Infarction ([place]), Musculoskeletal Disorder, Neurologic Disorder, Sleep Apnea/CPAP/BIPAP, Vascular Disorder Additional Past Medical History / Comment(s): IDDM type II, uterine/cervical and ovarian cancer, restless leg, Factor V blood disorder, DVT R leg, 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 - slight foot drag when tired/neuropathies, MS, [place] X 5, ABIGAIL with Cpap use, PAD/legs, R leg edema, past pancreatitis. Last Myocardial Infarction Date:: Pt thinks 2015 History of Any Multi-Drug Resistant Organisms: None Reported Past Surgical History: Section, Cholecystectomy, Heart Catheterization With Stent, Hysterectomy, Tubal Ligation, Uterine Ablation Additional Past Surgical History / Comment(s): vein stripping right leg, radio frequency ablation of right back-02/22/2015, four stents on 04/03/16 and one on march 05, ovaries removed, colonscopy- polyp removal Past Anesthesia/Blood Transfusion Reactions: Motion Sickness Additional Past Anesthesia/Blood Transfusion Reaction / Comment(s): mild claustrophobia Date of Last Stent Placement:: 04/03/16 Past Psychological History: Anxiety, Depression Smoking Status: Current every day smoker Past Alcohol Use History: None Reported Past Drug Use History: None Reported - Past Family History Father Family Medical History: Congestive Heart Failure (CHF), Coronary Artery Disease (CAD), Diabetes Mellitus Mother Family Medical History: Cancer, COPD, Hypertension, Respiratory Disorder Additional Family Medical History / Comment(s): emphysema, colon CA Medications and Allergies Home Medications Medication Instructions Recorded Confirmed Type Citalopram Hydrobromide [CeleXA] 40 mg PO DAILY #1 tab 03/10/15 07/20/22 Rx Pregabalin [Lyrica] 150 mg PO TID 06/25/15 07/20/22 History lamoTRIgine 200 mg PO BID 07/30/16 07/20/22 History Magnesium Gluconate [Magonate] 500 mg PO HS 03/27/17 07/20/22 History Aspirin [Adult Low Dose Aspirin EC] 81 mg PO HS 11/26/17 07/20/22 History Enalapril [Vasotec] 10 mg PO BID 11/26/17 07/20/22 History DULoxetine HCL [Cymbalta] 60 mg PO DAILY 08/25/18 07/20/22 History Isosorbide Mononitrate ER [Imdur] 60 mg PO DAILY 09/08/18 07/20/22 History carvediloL [Coreg] 25 mg PO BID 01/22/19 07/20/22 History ARIPiprazole [Abilify] 2 mg PO DAILY 11/08/20 07/20/22 History Insulin Glargine,Hum.rec.anlog 30 unit SQ BID 11/08/20 07/20/22 History [Lantus Solostar Pen] ALPRAZolam [Xanax] 2 mg PO DAILY 07/31/21 07/20/22 History Atorvastatin [Lipitor] 40 mg PO DAILY 07/31/21 07/20/22 History Cholecalciferol (Vitamin D3) 125 mcg PO HS 07/31/21 07/20/22 History [Vitamin D3 (125 MCG = 5,000 IU)] amLODIPine [Norvasc] 10 mg PO DAILY 30 Days #30 tab 01/17/22 07/20/22 Rx Ondansetron Odt [Zofran ODT] 4 mg PO Q8HR PRN #21 tab 03/10/22 07/20/22 Rx Pantoprazole Sodium [Protonix] 40 mg PO DAILY 30 Days #30 tab 03/20/22 07/20/22 Rx Insulin Lispro Protamin/Lispro 25 unit SQ HS 07/20/22 07/20/22 History [humaLOG Mix 75-25 Kwikpen] Insulin Lispro Protamin/Lispro 30 unit SQ QAM 07/20/22 07/20/22 History [humaLOG Mix 75-25 Kwikpen] metFORMIN HCL ER [Glucophage XR] 500 mg PO BID-W/MEALS 07/20/22 07/20/22 History Allergies Allergy/AdvReac Type Severity Reaction Status Date / Time Fish Containing Products Allergy Anaphylaxis Verified 07/19/22 17:34 Iodinated Contrast Media Allergy Anaphylaxis Verified 07/19/22 17:34 [Iodinated Contrast Media - IV Dye] Sulfa (Sulfonamide Allergy Anaphylaxis Verified 07/19/22 17:34 Antibiotics) sulfamethoxazole Allergy Anaphylaxis Verified 07/19/22 17:34 [From Septra] tree nut [Nut] Allergy Anaphylaxis Verified 07/19/22 17:34 trimethoprim [From Septra] Allergy Anaphylaxis Verified 07/19/22 17:34 Physical Examination - Vital Signs Vital Signs: Vital Signs Temp Pulse Resp BP Pulse Ox 07/20/22 07:16 76 16 95 07/19/22 17:29 98.1 F 70 20 155/78 99 Intake and Output 07/19/22 07/20/22 07/20/22 22:59 06:59 14:59 Other: Weight 91.172 kg Patient is a middle aged female, who appears older than her stated age. Patient is in no acute distress. Patient is alert awake oriented to time place and person. Patient knows it is June 2022 and that she is in [facility] in [place]. Speech and language functions are normal. Patient can name and repeat very well. No aphasia or dysarthria. Attention, concentration and fund of knowledge is adequate. On cranial nerve examination, pupils are equal, round and reacting to light, visual li are full on confrontation, with no neglect on double simultaneous stimulation. Extraocular muscles are intact with no nystagmus. Face is symmetric, tongue protrudes to the midline. Palatal elevation and sensation normal, hearing and shoulder shrug slightly less on the right, facial sensation normal. On muscle strength testing, the strength is normal in left arm and left leg distally and proximally. On the right side deltoid 3-, biceps 5-4+, triceps 5, liquor establishment manager 4-3+. Hip flexion 5-, ankle dorsiflexion 3+4-. Deep tendon reflexes are (right/left) biceps 3/2, brachioradialis 3/2, knee 3/2, ankles 3+/2, plantar up on the right down on the left. Sensory to touch is equal with no neglect on double simultaneous stimulation. Cerebellar function showed significant ataxia for [id number] testing on the right. Patient is very spastic on the right side with frequent clonus with any activity. Gait patient mostly nonambulatory. On general examination, there is no carotid bruit or murmur, S1-S2 audible. Chest is clear on consultation. Abdomen is soft nontender. No organomegaly, bowel sounds present. Peripheral pulses are present. No edema. Results - Laboratory Findings CBC and BMP: 07/19/22 17:52 07/19/22 17:52 Abnormal Lab Findings: Abnormal Labs 07/19/22 07/19/22 07/19/22 17:52 17:52 22:00 Hgb 9.3 L Hct 31.2 L MCV 75.3 L MCH 22.4 L MCHC 29.8 L RDW 18.0 H Sodium 134 L BUN 20 H Creatinine 1.24 H Glucose 349 H Alkaline Phosphatase 165 H Total Protein 5.7 L Urine Protein 3+ H Urine Glucose (UA) 4+ H Urine Bacteria Rare H Assessment and Plan Assessment: * Recurrent syncopal spells, less likely seizures. Rule out arrhythmia. * History of left subcortical CVA in 2014 with subsequent right spastic hemiparesis * Diabetes, uncontrolled * Hypertension * Reported history of multiple sclerosis * X tobacco use Plan: * Patient will undergo EEG to rule out epileptiform activity. Patient is on Lamictal 200 mg twice a day (for psychiatric reasons, no history of seizures). * Carotid Doppler revealed no hemodynamically significant stenosis, antegrade flow in both vertebral arteries. * 2-D echo pending. * Orthostatics were checked, which were somewhat questionable positive, as supi ne blood pressure 190/74, sitting 192/87 and standing up 141/81. Patient is mostly wheelchair bound, and all the syncopal spells occurred while she was sitting. Therefore the positive orthostatics only while standing is of unclear significance. * Consider event monitor rule out arrhythmia. Cardiology on board. Telemetry monitoring so far showing sinus rhythm. * Aggressive control of stroke risk factors. Her Hemoglobin A1c is 12.9. Recommend optimize control of diabetes to target A1c < 7.0. * Continue aspirin 81 mg daily * Lipid panel. Patient on Lipitor 40 mg daily. * Patient's B12 is normal 1538, folate > 20, B6 was <2, will B6 replacement. * Neurology will follow. Thank you for the consult. Time with Patient: Greater than 30 (Complexity high.)
[2022-07-20 17:50] LABS: Glucose,Whole Blood 382 mg/dL (70-110)
[2022-07-20] MEDS: PYRIDOXINE 50 MG TAB PO SCH (18:26)
[2022-07-20 20:52] LABS: Glucose,Whole Blood 354 mg/dL (70-110)
[2022-07-20] MEDS: INSULIN DETEMIR (LEVEMIR) 100 UNIT/ML SYR SQ SCH (21:38)
[2022-07-20] MEDS: CHOLECALCIFEROL 125 MCG (5000 IU) TABLET PO SCH (21:39)
[2022-07-20] MEDS: MAGNESIUM OXIDE 400 MG TAB PO SCH (21:39)
[2022-07-20] MEDS: ASPIRIN 81 MG PO SCH (21:39)
[2022-07-21 07:27] LABS: Glucose,Whole Blood 458 mg/dL (70-110)
[2022-07-21] MEDS: INSULIN DETEMIR (LEVEMIR) 100 UNIT/ML SYR SQ SCH ×2 (08:48→20:42)
[2022-07-21] MEDS: DULoxetine HCL 60 MG CAPSULE.DR PO SCH (08:49)
[2022-07-21] MEDS: ARIPiprazole 2 MG TAB PO SCH (08:49)
[2022-07-21] MEDS: PREGABALIN 75 MG CAP PO SCH ×3 (08:49→20:43)
[2022-07-21] MEDS: lamoTRIgine 100 MG TAB PO SCH ×2 (08:49→20:42)
[2022-07-21] MEDS: ALPRAZolam 1 MG TAB PO SCH (08:49)
[2022-07-21] MEDS: INSULIN ASPART (NovoLOG) 100 UNIT/ML VIAL SQ SCH ×4 (08:49→20:42)
[2022-07-21] MEDS: PYRIDOXINE 50 MG TAB PO SCH (08:49)
[2022-07-21] MEDS: PANTOPRAZOLE 40 MG TABLET PO SCH (08:50)
[2022-07-21] MEDS: CITALOPRAM HYDROBROMIDE 20 MG TAB PO SCH (08:50)
[2022-07-21] MEDS: lisinopriL 20 MG TAB PO SCH (08:50)
[2022-07-21] MEDS: ENOXAPARIN 40 MG/0.4 ML SYRINGE SQ SCH (08:50)
[2022-07-21] MEDS: ATORVASTATIN 40 MG TAB PO SCH (08:50)
[2022-07-21] MEDS: ISOSORBIDE MONONITRATE ER 60 MG TAB.ER.24H PO SCH (08:50)
[2022-07-21] MEDS: carvediloL 12.5 MG TAB PO SCH ×2 (08:50→17:59)
[2022-07-21] MEDS: amLODIPine 10 MG TAB PO SCH (08:50)
[2022-07-21] MEDS: NICOTINE 14MG/24HR PATCH TRANSDERM SCH (08:51)
[2022-07-21] MEDS ORDERED: ALPRAZolam 1 MG TAB PO SCH (09:00)
--- NOTE | 2022-07-21 10:01 | EEG ---
ELECTROENCEPHALOGRAM REPORT PREAMBLE: This is a 51-year-old female who has presented with recurrent syncopal spells. This study is performed to evaluate for any epileptiform activity. EEG FINDINGS: This is a 21-channel digital EEG recorded with video component, utilizing 10/20 international system with referential and bipolar montages. Background consists of well developed, well regulated moderate voltage activity in 9 hertz alpha seen better in the right hemispheric region. Some focal theta slowing was seen in the left temporal region. The patient was drowsy most of the study with presence of sleep spindles. A photic driving response was not clearly seen. Rare (2) sharp transients was seen in the left temporal region, which were not reproduced further and were not clearly epileptiform. No definitive epileptiform activity was seen. EKG channel showed no obvious arrhythmia. IMPRESSION: This is an abnormal EEG due to intermittent focal slowing in the left temporal region. This is suggestive of focal cortical neuronal dysfunction, may suggest underlying structural abnormality. No definitive epileptiform activity was seen. Normal EEG does not rule out seizure disorder. If your suspicion for seizure is high, suggest prolonged, sleep-deprived EEG. MMODL / IJN: [id number] /
[2022-07-21 11:34] LABS: Basophils # (A) 0.07 X 10*3/uL (0.00-0.10); Basophils % (A) 0.9 %; Eosinophils # (A) 0.16 X 10*3/uL (0.04-0.35); Eosinophils % (A) 2.1 %; HCT 28.8 % (37.2-46.3); HGB 8.4 g/dL (12.0-15.0); Immature Grans, Automated 0.3 %; Lymphocytes # (A) 1.97 X 10*3/uL (0.90-5.00); Lymphocytes % (A) 25.6 %; MCH 22.5 pg (27.0-32.0); MCHC 29.2 g/dL (32.0-37.0); Mean Platelet Volume 11.7 fL (9.5-12.2); Monocytes # (A) 0.53 X 10*3/uL (0.20-1.00); Monocytes % (A) 6.9 %; NRBC Per 100 WBC 0 /100 WBCS (0.0-0.0); Neutrophils # (A) 4.94 X 10*3/uL (1.80-7.70); Neutrophils % (A) 64.2 %; Platelet Count 306 X 10*3/uL (140-440); RBC 3.74 X 10*6/uL (4.10-5.20); RDW 18.7 % (11.5-14.5); WBC 7.69 X 10*3/uL (4.50-10.00)
[2022-07-21 12:12] LABS: ALT 9 U/L (8-44); AST 12 U/L (13-35); African American GFR (CKD) 61.7 (60.0-200.0); Albumin 3.3 g/dL (3.8-4.9); Albumin/Globulin Ratio 1.77 (1.60-3.17); Alkaline Phosphatase 159 U/L (41-126); BUN/Creat Ratio 15.63 Ratio (12.00-20.00); Blood Urea Nitrogen 18.6 mg/dL (9.0-27.0); Calcium 9.2 mg/dL (8.7-10.3); Carbon Dioxide 23.5 mmol/L (20.0-27.5); Chloride 104 mmol/L (96-109); Chol/HDL Ratio 4.86 Ratio; Globulin 1.9 g/dL (1.6-3.3); Glucose 447 mg/dL (70-110); LDL Cholesterol,Calculated 93.9 mg/dL (0.0-131.0); Non-African American GFR(CKD) 53.2 (60.0-200.0); Sodium 139 mmol/L (135-145); Total Bilirubin <0.15 mg/dL (0.30-1.20); Total Protein 5.2 g/dL (6.2-8.2)
[2022-07-21 12:22] LABS: Glucose,Whole Blood 299 mg/dL (70-110)
--- NOTE | 2022-07-21 14:32 | P.PN ---
Subjective Progress Note Date: 07/21/22 This is a pleasant 51-year-old female past medical history significant for CVA , factor V deficiency, coronary artery disease status post prior PCI to LAD, diagonal and RCA, hypertension, dyslipidemia, diabetes mellitus and chronic nicotine dependence. She follows in the office with Dr. Jasso. We have been asked to see in consultation for syncope. Patient presents to the ER with complaints of episodes at home where she "passes out". She states she is sitting when these occur. Prior to passing out she has some blurry vision and lightheadedness. She then does not remember what happens and then wakes up on the couch/chair. She has no chest pain, shortness of breath, palpitations, incontinence of bowel/bladder, no focal weakness, no dizziness. She is unsure how long they last. The last episode she said her has difficulty waking her up. She has been having these episodes for the past week. She states she has had 4 episodes on Saturday. She denies her telling her she had any seizure like activity, no incontinence. On exam, patient is oriented x 3, however, somnolent, falling asleep during evaluation. DIAGNOSTICS * EKG reveals sinus rhythm, heart rate 69, right bundle-branch block, nonspecific ST- T wave abnormalities. Prior EKG in February 2022 with similar findings * Telemetry tracings indicate sinus rhythm with heart rate 6070s * Lexiscan stress test 02/07/2022 revealed no evidence of stress-induced ischemic change * Echocardiogram 01/16/2022 revealed EF of 60-65%, trace mitral regurgitation, mildly dilated left atrium * Most recent cardiac catheterization performed in 2018 revealed a patent stent in the LAD, diagonal branch and RCA with mild nonobstructive disease noted in the RCA and LAD. * Chest xray reporting left basilar atelectasis, no acute cardiopulmonary process * Brain CT revealed stable left sided infarct, no acute intracranial process, no significant change from prior exam 07/21/2022 Disposition was seen and examined sitting up in a chair at bedside. Overall she's feeling quite a bit better today. She states that she is feeling back to her normal self. She's had no further episodes of blurry vision, lightheadedness or syncope. Carotid duplex study showed no hemodynamically significant carotid arterial stenosis. She underwent an EEG which was abnormal due to intermittent focal slowing in the left temporal region but no definitive epileptiform activity was seen. Labs this morning showed BUN of 18.6 and creatinine 1.2. Blood pressure has been elevated. Objective - Vital Signs Vital signs: Vital Signs Temp 97.9 F 07/21/22 07:00 Pulse 70 07/21/22 08:00 Resp 17 07/21/22 08:00 BP 178/73 07/21/22 07:00 Pulse Ox 92 L 07/21/22 07:00 FiO2 Intake & Output 07/20/22 07/21/22 07/21/22 18:59 06:59 18:59 Intake Total 300 Balance 300 Weight 91.172 kg Intake: Oral 300 Other: Voiding Method Toilet Toilet # Voids 1 2 1 - Exam CONSTITUTIONAL: No apparent distress. HEENT: Head is normocephalic. Pupils are equal, round. Sclerae anicteric. Mucous membranes of the mouth are moist. No JVD. No carotid bruit. CHEST EXAMINATION: Lungs are clear to auscultation. No chest wall tenderness is noted on palpation or with deep breathing. HEART EXAMINATION: Regular rate and rhythm. S1, S2 heard. No murmurs, gallops or rub. ABDOMEN: Soft, nontender. Positive bowel sounds. EXTREMITIES: 2+ peripheral pulses, no lower extremity edema and no calf tenderness. NEUROLOGIC EXAMINATION: Patient is awake and alert, Oriented x 3. Right sided weakness from prior CVA - Labs CBC & Chem 7: 07/21/22 06:29 07/21/22 06:29 Labs: Abnormal Lab Results - Last 24 Hours (Table) 07/19/22 07/20/22 07/20/22 Range/Units 17:52 17:48 20:50 RBC (4.10-5.20) X 10*6/uL Hgb (12.0-15.0) g/dL Hct (37.2-46.3) % MCV (80.0-97.0) fL MCH (27.0-32.0) pg MCHC (32.0-37.0) g/dL RDW (11.5-14.5) % Est GFR (CKD-EPI)NonAf (60.0-200.0) Glucose (70-110) mg/dL POC Glucose (mg/dL) 382 H 354 H (70-110) mg/dL Hemoglobin A1c 12.9 H (0.0-6.0) % Total Bilirubin (0.30-1.20) mg/dL AST (13-35) U/L Alkaline Phosphatase (41-126) U/L Total Protein (6.2-8.2) g/dL Albumin (3.8-4.9) g/dL Triglycerides (0.00-149.00) mg/dL VLDL Cholesterol, Calc (5.00-40.00) mg/dL 07/21/22 07/21/22 07/21/22 Range/Units 06:29 06:29 07:25 RBC 3.74 L (4.10-5.20) X 10*6/uL Hgb 8.4 L (12.0-15.0) g/dL Hct 28.8 L (37.2-46.3) % MCV 77.0 L (80.0-97.0) fL MCH 22.5 L (27.0-32.0) pg MCHC 29.2 L (32.0-37.0) g/dL RDW 18.7 H (11.5-14.5) % Est GFR (CKD-EPI)NonAf 53.2 L (60.0-200.0) Glucose 447 H (70-110) mg/dL POC Glucose (mg/dL) 458 H (70-110) mg/dL Hemoglobin A1c (0.0-6.0) % Total Bilirubin <0.15 L (0.30-1.20) mg/dL AST 12 L (13-35) U/L Alkaline Phosphatase 159 H (41-126) U/L Total Protein 5.2 L (6.2-8.2) g/dL Albumin 3.3 L (3.8-4.9) g/dL Triglycerides 317.00 H (0.00-149.00) mg/dL VLDL Cholesterol, Calc 63.40 H (5.00-40.00) mg/dL 07/21/22 Range/Units 12:21 RBC (4.10-5.20) X 10*6/uL Hgb (12.0-15.0) g/dL Hct (37.2-46.3) % MCV (80.0-97.0) fL MCH (27.0-32.0) pg MCHC (32.0-37.0) g/dL RDW (11.5-14.5) % Est GFR (CKD-EPI)NonAf (60.0-200.0) Glucose (70-110) mg/dL POC Glucose (mg/dL) 299 H (70-110) mg/dL Hemoglobin A1c (0.0-6.0) % Total Bilirubin (0.30-1.20) mg/dL AST (13-35) U/L Alkaline Phosphatase (41-126) U/L Total Protein (6.2-8.2) g/dL Albumin (3.8-4.9) g/dL Triglycerides (0.00-149.00) mg/dL VLDL Cholesterol, Calc (5.00-40.00) mg/dL Assessment and Plan Assessment: Possible syncopal episodes,while sitting, with reports of blurry vision and d ifficulty to arouse Increased somnolence, improved Acute kidney injury History of CVA with right residual weakness Coronary artery disease status post prior PCI to LAD, diagonal and RCA Hypertension Dyslipidemia Type 2 diabetes Chronic nicotine dependence History of Factor V deficiency Plan: From cardiology's perspective we are awaiting echocardiogram to be done. If there is no significant abnormalities noted patient will likely be discharged home and follow-up as an outpatient. she may benefit from a 30 day event monitor as an outpatient. OSTEOPATHIC NEUROLOGIST note has been reviewed, I agree with a documented findings and plan of care. Patient was seen and examined.
[2022-07-21 14:37] VITALS: BMI 32.4
--- NOTE | 2022-07-21 15:06 | P.PN ---
Subjective Progress Note Date: 07/21/22 Leticia Langley, is a 51-year-old female patient of Dr. Hennessy who presented with concerns of syncopal episodes. Patient reports that she had multiple episodes of syncope yesterday denies any chest pain or associated head injury. Patient does report nausea with the episodes. Patient denies any recent illness. Patient does have a past medical history of MS, previous CVA, AL, diabetes mellitus, DVT, fibromyalgia, right-sided deficit from previous CVA, anxiety and depression and nicotine dependence. Chest x-ray was completed in ER showing left basilar and linear atelectasis otherwise no acute cardiopulmonary process. Head CT completed showing no acute intracranial process no significant change from prior exams stable left-sided infarct as described above. At this time patient is demented cardiology and neurology services have been consulted 2-D echo carotid Dopplers ordered. Patient is currently resting comfortably in bed. Patient complains of tenderness to left caodaism. Patient denies chest pain. Patient denies nausea vomiting or diarrhea. Patient denies any urinary burning or frequency. On 07/21/2022 patient was seen and examined on the medical floor she is alert and oriented 3 in no apparent distress there is no fever or chills no headache or dizziness no chest pain no shortness of breath no cough no nausea or vomiting no abdominal pain no diarrhea and no urinary symptoms. She is feeling better she denies any blurry vision no episodes of syncope or presyncope, we are awaiting echocardiogram, and the recommendation from cardiology, also EEG is abnormal we are awaiting further recommendation from neurology, possible discharge to home tomorrow if stable. Objective - Vital Signs Vital signs: Vital Signs Temp 98.3 F 07/21/22 15:00 Pulse 65 07/21/22 15:00 Resp 18 07/21/22 15:00 BP 116/65 07/21/22 15:00 Pulse Ox 98 07/21/22 15:00 FiO2 Intake & Output 07/20/22 07/21/22 07/21/22 18:59 06:59 18:59 Intake Total 300 Balance 300 Weight 91.172 kg 91.172 kg Intake: Oral 300 Other: Voiding Method Toilet Toilet # Voids 1 2 1 - Exam In general patient is alert and oriented x 3 in no distress HEENT head normocephalic and atraumatic Neck is supple no JVD no goiter no lymphadenopathy no carotid bruit Chest examination is clear to auscultation no crackles no wheezing Cardiac exam reveals regular heart sounds S1 and S2 no gallops no murmurs Abdomen is soft nontender no organomegaly with normal bowel sounds Extremity exam reveals no edema no cyanosis or clubbing Neurological examination reveals no gross focal deficits - Labs CBC & Chem 7: 07/21/22 06:29 07/21/22 06:29 Labs: Abnormal Lab Results - Last 24 Hours (Table) 07/20/22 07/20/22 07/21/22 Range/Units 17:48 20:50 06:29 RBC (4.10-5.20) X 10*6/uL Hgb (12.0-15.0) g/dL Hct (37.2-46.3) % MCV (80.0-97.0) fL MCH (27.0-32.0) pg MCHC (32.0-37.0) g/dL RDW (11.5-14.5) % Est GFR (CKD-EPI)NonAf 53.2 L (60.0-200.0) Glucose 447 H (70-110) mg/dL POC Glucose (mg/dL) 382 H 354 H (70-110) mg/dL Total Bilirubin <0.15 L (0.30-1.20) mg/dL AST 12 L (13-35) U/L Alkaline Phosphatase 159 H (41-126) U/L Total Protein 5.2 L (6.2-8.2) g/dL Albumin 3.3 L (3.8-4.9) g/dL Triglycerides 317.00 H (0.00-149.00) mg/dL VLDL Cholesterol, Calc 63.40 H (5.00-40.00) mg/dL 07/21/22 07/21/22 07/21/22 Range/Units 06:29 07:25 12:21 RBC 3.74 L (4.10-5.20) X 10*6/uL Hgb 8.4 L (12.0-15.0) g/dL Hct 28.8 L (37.2-46.3) % MCV 77.0 L (80.0-97.0) fL MCH 22.5 L (27.0-32.0) pg MCHC 29.2 L (32.0-37.0) g/dL RDW 18.7 H (11.5-14.5) % Est GFR (CKD-EPI)NonAf (60.0-200.0) Glucose (70-110) mg/dL POC Glucose (mg/dL) 458 H 299 H (70-110) mg/dL Total Bilirubin (0.30-1.20) mg/dL AST (13-35) U/L Alkaline Phosphatase (41-126) U/L Total Protein (6.2-8.2) g/dL Albumin (3.8-4.9) g/dL Triglycerides (0.00-149.00) mg/dL VLDL Cholesterol, Calc (5.00-40.00) mg/dL Assessment and Plan Assessment: 1. Syncopal episodes 2. History of insulin-dependent diabetes mellitus 3. History of coronary artery disease with multiple myocardial infarctions 4. History of CVA with residual right-sided weakness 5. History of nicotine dependence. Nicotine patch will be ordered patient educated at length in regards to smoking cessation 6. 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 GI prophylaxis Protonix Cardiology and neurology service is consulted 2-D echo and carotid Doppler ordered Repeat labs ordered for a.m.
--- NOTE | 2022-07-21 16:55 | CA ---
Transthoracic Echo Report Name: Leticia Langley Age: 51 Gender: F : 1970 Exam Date: 07/21/2022 14:38 Exam Location: [facility] Ht (in): 66 Wt (lb): 201 Ordering Physician: Evin Sanchez MD Attending/Referring Phys: Software Client Architect Reema Crow RDCS Procedure CPT: Indications: syncopal episode Cardiac Hx: Technical Quality: Good Contrast 1: Total Dose (mL): Contrast 2: Total Dose (mL): MEASUREMENTS (Male / Female) Normal Values 2D ECHO LV Diastolic Diameter PLAX 5.3 cm 4.2 - 5.9 / 3.9 - 5.3 cm LV Systolic Diameter PLAX 3.3 cm IVS Diastolic Thickness 1.7 cm 0.6 - 1.0 / 0.6 - 0.9 cm LVPW Diastolic Thickness 1.7 cm 0.6 - 1.0 / 0.6 - 0.9 cm LV Relative Wall Thickness 0.6 RV Internal Dim ED PLAX 3.6 cm LA Systolic Diameter LX 4.2 cm 3.0 - 4.0 / 2.7 - 3.8 cm LA Volume 96.1 cm??? 18 - 58 / 22 - 52 cm??? M-MODE Aortic Root Diameter MM 4.1 cm MV E Point Septal Separation 1.2 cm AV Cusp Separation MM 3.0 cm DOPPLER AV Peak Velocity 145.8 cm/s AV Peak Gradient 8.5 mmHg MV Area PHT 2.4 cm??? Mitral E Point Velocity 95.2 cm/s Mitral A Point Velocity 90.8 cm/s Mitral E to A Ratio 1.0 MV Deceleration Time 322.7 ms MV E' Velocity 5.6 cm/s Mitral E to MV E' Ratio 16.9 TR Peak Velocity 193.7 cm/s TR Peak Gradient 15.0 mmHg Right Ventricular Systolic Press 20.0 mmHg FINDINGS Left Ventricle Left ventricular ejection fraction is estimated at 55-60 %. Severely increased septal wall thickness. Severely increased posterior wall thickness. Left ventricular cavity size uppear normal. Severe left ventricular hypertrophy Right Ventricle Mild right ventricular dilatation. Right ventricular systolic pressure within normal limits. Right Atrium Normal right atrial size. Left Atrium Mildly increased left atrial diameter. Severely increased left atrial volume. Mildly increased left atrial area. No evidence for an atrial septal defect. Mitral Valve Structurally normal mitral valve. No mitral stenosis, or prolapse. Mild mitral regurgitation Aortic Valve Trileaflet aortic valve. No aortic valve stenosis or regurgitation. Tricuspid Valve Mild tricuspid regurgitation.structurally normal tricuspid valve. Pulmonic Valve Trace pulmonic regurgitation. Pericardium No pericardial effusion. Aorta Moderate aortic dilatation at the level of the sinuses of valsalva 41 mm CONCLUSIONS 1. Normal ventricle size and systolic function with severe concentric left ventricular hypertrophy 2. Mild mitral and tricuspid regurgitation 3. Mildly dilated aortic root Previewed by: Dr. Iraida Gusman MD (Electronically Signed) Final Date: 21 July 2022 16:54
[2022-07-21 17:18] LABS: Glucose,Whole Blood 223 mg/dL (70-110)
[2022-07-21] MEDS: SODIUM CHLORIDE 0.9% 1,000 ML IV SCH (18:56)
--- NOTE | 2022-07-21 19:04 | P.PN ---
Subjective Progress Note Date: 07/21/22 This is a telemedicine neurology follow-up performed today on 07/21/2022. Patient was seen for a follow-up. Patient is laying comfortably in the bed. She states that she is feeling "much better". She denies any headache or dizziness. No further syncopal spells. Objective - Vital Signs Vital signs: Vital Signs Temp 97.9 F 07/21/22 07:00 Pulse 70 07/21/22 07:00 Resp 17 07/21/22 07:00 BP 178/73 07/21/22 07:00 Pulse Ox 92 L 07/21/22 07:00 FiO2 Intake & Output 07/20/22 07/21/22 07/21/22 18:59 06:59 18:59 Intake Total 300 Balance 300 Weight 91.172 kg Intake: Oral 300 Other: Voiding Method Toilet # Voids 1 2 1 - Exam Patient is alert and awake, in no acute distress. Examination deferred. - Labs CBC & Chem 7: 07/21/22 06:29 07/21/22 06:29 Labs: Abnormal Lab Results - Last 24 Hours (Table) 07/19/22 07/20/22 07/20/22 Range/Units 17:52 17:48 20:50 RBC (4.10-5.20) X 10*6/uL Hgb (12.0-15.0) g/dL Hct (37.2-46.3) % MCV (80.0-97.0) fL MCH (27.0-32.0) pg MCHC (32.0-37.0) g/dL RDW (11.5-14.5) % Est GFR (CKD-EPI)NonAf (60.0-200.0) Glucose (70-110) mg/dL POC Glucose (mg/dL) 382 H 354 H (70-110) mg/dL Hemoglobin A1c 12.9 H (0.0-6.0) % Total Bilirubin (0.30-1.20) mg/dL AST (13-35) U/L Alkaline Phosphatase (41-126) U/L Total Protein (6.2-8.2) g/dL Albumin (3.8-4.9) g/dL Triglycerides (0.00-149.00) mg/dL VLDL Cholesterol, Calc (5.00-40.00) mg/dL 07/21/22 07/21/22 07/21/22 Range/Units 06:29 06:29 07:25 RBC 3.74 L (4.10-5.20) X 10*6/uL Hgb 8.4 L (12.0-15.0) g/dL Hct 28.8 L (37.2-46.3) % MCV 77.0 L (80.0-97.0) fL MCH 22.5 L (27.0-32.0) pg MCHC 29.2 L (32.0-37.0) g/dL RDW 18.7 H (11.5-14.5) % Est GFR (CKD-EPI)NonAf 53.2 L (60.0-200.0) Glucose 447 H (70-110) mg/dL POC Glucose (mg/dL) 458 H (70-110) mg/dL Hemoglobin A1c (0.0-6.0) % Total Bilirubin <0.15 L (0.30-1.20) mg/dL AST 12 L (13-35) U/L Alkaline Phosphatase 159 H (41-126) U/L Total Protein 5.2 L (6.2-8.2) g/dL Albumin 3.3 L (3.8-4.9) g/dL Triglycerides 317.00 H (0.00-149.00) mg/dL VLDL Cholesterol, Calc 63.40 H (5.00-40.00) mg/dL 07/21/22 Range/Units 12:21 RBC (4.10-5.20) X 10*6/uL Hgb (12.0-15.0) g/dL Hct (37.2-46.3) % MCV (80.0-97.0) fL MCH (27.0-32.0) pg MCHC (32.0-37.0) g/dL RDW (11.5-14.5) % Est GFR (CKD-EPI)NonAf (60.0-200.0) Glucose (70-110) mg/dL POC Glucose (mg/dL) 299 H (70-110) mg/dL Hemoglobin A1c (0.0-6.0) % Total Bilirubin (0.30-1.20) mg/dL AST (13-35) U/L Alkaline Phosphatase (41-126) U/L Total Protein (6.2-8.2) g/dL Albumin (3.8-4.9) g/dL Triglycerides (0.00-149.00) mg/dL VLDL Cholesterol, Calc (5.00-40.00) mg/dL Assessment and Plan Assessment: * Recurrent syncopal spells, less likely seizures. Rule out arrhythmia. 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 This is suggestive of focal cortical neuronal dysfunction, may suggest underlying structural abnormality. No definitive epileptiform activity was seen. Normal EEG does not rule out seizure disorder. If your suspicion for seizure is high, suggest prolonged, sleep deprived EEG. Patient is on Lamictal 200 mg twice a day (for psychiatric reasons, no history of seizures). We will check Lamictal level. * Carotid Doppler revealed no hemodynamically significant stenosis, antegrade flow in both vertebral arteries. * 2-D echo revealed normal left ventricle size and systolic function with severe concentric LVH. Mild mitral and tricuspid regurgitation. Mildly dilated aortic root. EF is 55-60%. * Orthostatics were checked, which were somewhat questionable positive, as supine blood pressure 190/74, sitting 192/87 and standing up 141/81. Patient is mostly wheelchair bound, and all the syncopal spells occurred while she was sitting. Therefore the positive orthostatics only while standing is of unclear significance. * Consider event monitor rule out arrhythmia. Cardiology on board. Telemetry monitoring so far showing sinus rhythm. * Aggressive control of stroke risk factors. Her Hemoglobin A1c is 12.9. Recommend optimize control of diabetes to target A1c < 7.0. * Continue aspirin 81 mg daily * Lipid panel cholesterol 198, LDL 75, HDL 40 and triglycerides 317. LDL is wel l controlled. Patient on Lipitor 40 mg daily. * Patient's B12 is normal 1538, folate > 20, B6 was <2, will B6 replacement. * Consider follow up with neurologist as an outpatient in 2-4 weeks.
[2022-07-21 19:59] LABS: Glucose,Whole Blood 221 mg/dL (70-110)
[2022-07-21] MEDS: ASPIRIN 81 MG PO SCH (20:43)
[2022-07-21] MEDS: CHOLECALCIFEROL 125 MCG (5000 IU) TABLET PO SCH (20:43)
[2022-07-21] MEDS: MAGNESIUM OXIDE 400 MG TAB PO SCH (20:43)
[2022-07-22 03:30] VITALS: PULSE 68
[2022-07-22 07:22] LABS: Glucose,Whole Blood 108 mg/dL (70-110)
[2022-07-22 07:44] VITALS: BP 177/77; RESP 18; TEMP 98.4
[2022-07-22] MEDS: INSULIN ASPART (NovoLOG) 100 UNIT/ML VIAL SQ SCH (08:19)
[2022-07-22] MEDS: ISOSORBIDE MONONITRATE ER 60 MG TAB.ER.24H PO SCH (08:50)
[2022-07-22] MEDS: PREGABALIN 75 MG CAP PO SCH (08:50)
[2022-07-22] MEDS: ALPRAZolam 1 MG TAB PO SCH (08:50)
[2022-07-22] MEDS: ATORVASTATIN 40 MG TAB PO SCH (08:51)
[2022-07-22] MEDS: PANTOPRAZOLE 40 MG TABLET PO SCH (08:51)
[2022-07-22] MEDS: ARIPiprazole 2 MG TAB PO SCH (08:51)
[2022-07-22] MEDS: DULoxetine HCL 60 MG CAPSULE.DR PO SCH (08:51)
[2022-07-22] MEDS: lamoTRIgine 100 MG TAB PO SCH (08:51)
[2022-07-22] MEDS: PYRIDOXINE 50 MG TAB PO SCH (08:51)
[2022-07-22] MEDS: CITALOPRAM HYDROBROMIDE 20 MG TAB PO SCH (08:51)
[2022-07-22] MEDS: carvediloL 12.5 MG TAB PO SCH (08:52)
[2022-07-22] MEDS: lisinopriL 20 MG TAB PO SCH (08:52)
[2022-07-22] MEDS: NICOTINE 14MG/24HR PATCH TRANSDERM SCH (08:52)
[2022-07-22] MEDS: ENOXAPARIN 40 MG/0.4 ML SYRINGE SQ SCH (08:52)
[2022-07-22] MEDS: INSULIN DETEMIR (LEVEMIR) 100 UNIT/ML SYR SQ SCH (08:52)
[2022-07-22] MEDS: amLODIPine 10 MG TAB PO SCH (08:52)
--- NOTE | 2022-07-22 11:14 | P.DS ---
Providers Date of admission: 07/20/22 01:15 Expected date of discharge: 07/22/22 Attending physician: Evin Sanchez Consults: 07/19/22 23:17 Consult Physician Urgent Consulting Provider: Clem Mccarty Consult Reason/Comments: syncopal episodes Do you want consulting provider notified?: Yes 07/20/22 10:32 Consult Physician Urgent Consulting Provider: Iraida Gusman Consult Reason/Comments: Syncopal episode cardiac history Do you want consulting provider notified?: Yes Primary care physician: Dagmar Hennessy Hospital Course: Discharge diagnosis 1. Syncopal episodes 2. History of insulin-dependent diabetes mellitus 3. History of coronary artery disease with multiple myocardial infarctions 4. History of CVA with residual right-sided weakness 5. History of nicotine dependence. Nicotine patch will be ordered patient educated at length in regards to smoking cessation 6. 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 Hennessy who presented with concerns of syncopal episodes. Patient reports that she had multiple episodes of syncope yesterday denies any chest pain or associated head injury. Patient does report nausea with the episodes. Patient denies any recent illness. Patient does have a past medical history of MS, previous CVA, CO, diabetes mellitus, DVT, fibromyalgia, right-sided deficit from previous CVA, anxiety and depression and nicotine dependence. Chest x-ray was completed in ER showing left basilar and linear atelectasis otherwise no acute cardiopulmonary process. Head CT completed showing no acute intracranial process no significant change from prior exams stable left-sided infarct as described above. At this time patient is demented cardiology and neurology services have been consulted 2-D echo carotid Dopplers ordered. Patient is currently resting comfortably in bed. Patient complains of tenderness to left islam. Patient denies chest pain. Patient denies nausea vomiting or diarrhea. Patient denies any urinary burning or frequency. On 07/21/2022 patient was seen and examined on the medical floor she is alert and oriented 3 in no apparent distress there is no fever or chills no headache or dizziness no chest pain no shortness of breath no cough no nausea or vomiting no abdominal pain no diarrhea and no urinary symptoms. She is feeling better she denies any blurry vision no episodes of syncope or presyncope, we are awaiting echocardiogram, and the recommendation from cardiology, also EEG is abnormal we are awaiting further recommendation from neurology, possible discharge to home tomorrow if stable. On 07/22/2022 patient is alert and oriented 3. Patient is eager for discharge home. Carotid Doppler was completed showing no hemodynamically significant carotid arterial stenosis identified. Per cardiology services patient may be discharged home with possible outpatient event monitor to be arranged. Neurology services ordering Lamictal level currently pending will need follow-up outpatient patient will be discharged home. Patient to follow-up with PCP and consulting providers for further management Patient Condition at Discharge: Stable Plan - Discharge Summary Discharge Rx Participant: No New Discharge Prescriptions: New Pyridoxine [Vitamin B-6] 50 mg PO DAILY 30 Days #30 tab Continue Citalopram Hydrobromide [CeleXA] 40 mg PO DAILY #1 tab Pregabalin [Lyrica] 150 mg PO TID lamoTRIgine 200 mg PO BID Magnesium Gluconate [Magonate] 500 mg PO HS Enalapril [Vasotec] 10 mg PO BID Aspirin [Adult Low Dose Aspirin EC] 81 mg PO HS DULoxetine HCL [Cymbalta] 60 mg PO DAILY Isosorbide Mononitrate ER [Imdur] 60 mg PO DAILY carvediloL [Coreg] 25 mg PO BID Insulin Glargine,Hum.rec.anlog [Lantus Solostar Pen] 30 unit SQ BID ARIPiprazole [Abilify] 2 mg PO DAILY ALPRAZolam [Xanax] 2 mg PO DAILY Pantoprazole Sodium [Protonix] 40 mg PO DAILY 30 Days #30 tab Insulin Lispro Protamin/Lispro [humaLOG Mix 75-25 Kwikpen] 30 unit SQ QAM metFORMIN HCL ER [Glucophage XR] 500 mg PO BID-W/MEALS Insulin Lispro Protamin/Lispro [humaLOG Mix 75-25 Kwikpen] 25 unit SQ HS Atorvastatin [Lipitor] 40 mg PO DAILY Cholecalciferol (Vitamin D3) [Vitamin D3 (125 MCG = 5,000 IU)] 125 mcg PO HS amLODIPine [Norvasc] 10 mg PO DAILY 30 Days #30 tab Ondansetron Odt [Zofran ODT] 4 mg PO Q8HR PRN #21 tab PRN Reason: Nausea Discharge Medication List Citalopram Hydrobromide [CeleXA] 40 mg PO DAILY #1 tab 03/10/15 [Rx] Pregabalin [Lyrica] 150 mg PO TID 06/25/15 [History] lamoTRIgine 200 mg PO BID 07/30/16 [History] Magnesium Gluconate [Magonate] 500 mg PO HS 03/27/17 [History] Aspirin [Adult Low Dose Aspirin EC] 81 mg PO HS 11/26/17 [History] Enalapril [Vasotec] 10 mg PO BID 11/26/17 [History] DULoxetine HCL [Cymbalta] 60 mg PO DAILY 08/25/18 [History] Isosorbide Mononitrate ER [Imdur] 60 mg PO DAILY 09/08/18 [History] carvediloL [Coreg] 25 mg PO BID 01/22/19 [History] ARIPiprazole [Abilify] 2 mg PO DAILY 11/08/20 [History] Insulin Glargine,Hum.rec.anlog [Lantus Solostar Pen] 30 unit SQ BID 11/08/20 [History] ALPRAZolam [Xanax] 2 mg PO DAILY 07/31/21 [History] Atorvastatin [Lipitor] 40 mg PO DAILY 07/31/21 [History] Cholecalciferol (Vitamin D3) [Vitamin D3 (125 MCG = 5,000 IU)] 125 mcg PO HS 07/31/21 [History] amLODIPine [Norvasc] 10 mg PO DAILY 30 Days #30 tab 01/17/22 [Rx] Ondansetron Odt [Zofran ODT] 4 mg PO Q8HR PRN #21 tab 03/10/22 [Rx] Pantoprazole Sodium [Protonix] 40 mg PO DAILY 30 Days #30 tab 03/20/22 [Rx] Insulin Lispro Protamin/Lispro [humaLOG Mix 75-25 Kwikpen] 25 unit SQ HS 07/20/22 [History] Insulin Lispro Protamin/Lispro [humaLOG Mix 75-25 Kwikpen] 30 unit SQ QAM 07/20/22 [History] metFORMIN HCL ER [Glucophage XR] 500 mg PO BID-W/MEALS 07/20/22 [History] Pyridoxine [Vitamin B-6] 50 mg PO DAILY 30 Days #30 tab 07/22/22 [Rx] Follow up Appointment(s)/Referral(s): Dagmar Hennessy MD [Primary Care Provider] - 1-2 days Activity/Diet/Wound Care/Special Instructions: Activity as tolerated Diet heart healthy Discharge Disposition: HOME SELF-CARE
--- NOTE | 2022-07-22 11:45 | P.PN ---
Subjective This is a pleasant 51-year-old female past medical history significant for CVA , factor V deficiency, coronary artery disease status post prior PCI to LAD, diagonal and RCA, hypertension, dyslipidemia, diabetes mellitus and chronic nicotine dependence. She follows in the office with Dr. Jasso. We have been asked to see in consultation for syncope. Patient presents to the ER with complaints of episodes at home where she "passes out". She states she is sitting when these occur. Prior to passing out she has some blurry vision and light headedness. She then does not remember what happens and then wakes up on the couch/chair. She has no chest pain, shortness of breath, palpitations, incontinence of bowel/bladder, no focal weakness, no dizziness. She is unsure how long they last. The last episode she said her has difficulty waking her up. She has been having these episodes for the past week. She states she has had 4 episodes on Saturday. She denies her telling her she had any seizure like activity, no incontinence. On exam, patient is oriented x 3, however, somnolent, falling asleep during evaluation. DIAGNOSTICS * EKG reveals sinus rhythm, heart rate 69, right bundle-branch block, nonspecific ST- T wave abnormalities. Prior EKG in February 2022 with similar findings * Telemetry tracings indicate sinus rhythm with heart rate 6070s * Lexiscan stress test 02/07/2022 revealed no evidence of stress-induced ischemic change * Echocardiogram 01/16/2022 revealed EF of 60-65%, trace mitral regurgitation, mildly dilated left atrium * Most recent cardiac catheterization performed in 2018 revealed a patent stent in the LAD, diagonal branch and RCA with mild nonobstructive disease noted in the RCA and LAD. * Chest xray reporting left basilar atelectasis, no acute cardiopulmonary process * Brain CT revealed stable left sided infarct, no acute intracranial process, no significant change from prior exam 07/21/2022 Disposition was seen and examined sitting up in a chair at bedside. Overall she's feeling quite a bit better today. She states that she is feeling back to her normal self. She's had no further episodes of blurry vision, lightheadedness or syncope. Carotid duplex study showed no hemodynamically significant carotid arterial stenosis. She underwent an EEG which was abnormal due to intermittent focal slowing in the left temporal region but no definitive epileptiform activity was seen. Labs this morning showed BUN of 18.6 and creatinine 1.2. Blood pressure has been elevated. 07/22/2022 The patient was seen and examined resting in a chair. She is overall feeling well. She's had no further episodes of blurry vision, lightheadedness, or syncope. Objective - Vital Signs Vital signs: Vital Signs Temp 98.4 F 07/22/22 07:00 Pulse 68 07/22/22 07:00 Resp 18 07/22/22 07:00 BP 177/77 07/22/22 07:00 Pulse Ox 95 07/22/22 07:00 FiO2 Intake & Output 07/21/22 07/22/22 07/22/22 18:59 06:59 18:59 Intake Total 500 400 Balance 500 400 Weight 91.172 kg Intake: Oral 500 400 Other: Voiding Method Toilet Toilet # Voids 1 2 1 # Bowel Movements 1 - Exam CONSTITUTIONAL: No apparent distress. HEENT: Head is normocephalic. Pupils are equal, round. Sclerae anicteric. Mucous membranes of the mouth are moist. No JVD. No carotid bruit. CHEST EXAMINATION: Lungs are clear to auscultation. No chest wall tenderness is noted on palpation or with deep breathing. HEART EXAMINATION: Regular rate and rhythm. S1, S2 heard. No murmurs, gallops or rub. ABDOMEN: Soft, nontender. Positive bowel sounds. EXTREMITIES: 2+ peripheral pulses, no lower extremity edema and no calf tenderness. NEUROLOGIC EXAMINATION: Patient is awake and alert, Oriented x 3. Right sided weakness from prior CVA - Labs CBC & Chem 7: 07/21/22 06:29 07/21/22 06:29 Labs: Abnormal Lab Results - Last 24 Hours (Table) 07/21/22 07/21/22 07/21/22 Range/Units 06:29 06:29 12:21 RBC 3.74 L (4.10-5.20) X 10*6/uL Hgb 8.4 L (12.0-15.0) g/dL Hct 28.8 L (37.2-46.3) % MCV 77.0 L (80.0-97.0) fL MCH 22.5 L (27.0-32.0) pg MCHC 29.2 L (32.0-37.0) g/dL RDW 18.7 H (11.5-14.5) % Est GFR (CKD-EPI)NonAf 53.2 L (60.0-200.0) Glucose 447 H (70-110) mg/dL POC Glucose (mg/dL) 299 H (70-110) mg/dL Total Bilirubin <0.15 L (0.30-1.20) mg/dL AST 12 L (13-35) U/L Alkaline Phosphatase 159 H (41-126) U/L Total Protein 5.2 L (6.2-8.2) g/dL Albumin 3.3 L (3.8-4.9) g/dL Triglycerides 317.00 H (0.00-149.00) mg/dL VLDL Cholesterol, Calc 63.40 H (5.00-40.00) mg/dL 07/21/22 07/21/22 Range/Units 17:16 19:58 RBC (4.10-5.20) X 10*6/uL Hgb (12.0-15.0) g/dL Hct (37.2-46.3) % MCV (80.0-97.0) fL MCH (27.0-32.0) pg MCHC (32.0-37.0) g/dL RDW (11.5-14.5) % Est GFR (CKD-EPI)NonAf (60.0-200.0) Glucose (70-110) mg/dL POC Glucose (mg/dL) 223 H 221 H (70-110) mg/dL Total Bilirubin (0.30-1.20) mg/dL AST (13-35) U/L Alkaline Phosphatase (41-126) U/L Total Protein (6.2-8.2) g/dL Albumin (3.8-4.9) g/dL Triglycerides (0.00-149.00) mg/dL VLDL Cholesterol, Calc (5.00-40.00) mg/dL Assessment and Plan Assessment: Possible syncopal episodes,while sitting, with reports of blurry vision and difficulty to arouse Increased somnolence, improved Acute kidney injury History of CVA with right residual weakness Coronary artery disease status post prior PCI to LAD, diagonal and RCA Hypertension Dyslipidemia Type 2 diabetes Chronic nicotine dependence History of Factor V deficiency Plan: From cardiology's perspective she is stable for discharge home and follow-up as an outpatient. She may benefit from a 30 day event monitor as an outpatient. FOUNDRY MANAGER note has been reviewed, I agree with a documented findings and plan of care. Patient was seen and examined.
== END 2022-07-22 12:33 | disposition home or self-care (01) ==
LOC: EC 17:10 → 6NMEDSUR 07-20 01:15
PROVIDERS: ADMIT Internal Medicine; ATTEND Internal Medicine
DX: R55 Syncope and collapse (principal); G35 Multiple sclerosis; N17.9 Acute kidney failure, unspecified; I25.2 Old myocardial infarction; I25.10 Atherosclerotic heart disease of native coronary artery without angina pectoris; M79.7 Fibromyalgia; K21.9 Gastro-esophageal reflux disease without esophagitis; E78.5 Hyperlipidemia, unspecified; I10 Essential (primary) hypertension; G25.81 Restless legs syndrome; I69.351 Hemiplegia and hemiparesis following cerebral infarction affecting right dominant side; G47.33 Obstructive sleep apnea (adult) (pediatric); E11.51 Type 2 diabetes mellitus with diabetic peripheral angiopathy without gangrene; E11.40 Type 2 diabetes mellitus with diabetic neuropathy, unspecified; F32.A Depression, unspecified; D68.2 Hereditary deficiency of other clotting factors; E11.65 Type 2 diabetes mellitus with hyperglycemia; F17.200 Nicotine dependence, unspecified, uncomplicated; Z85.41 Personal history of malignant neoplasm of cervix uteri; Z85.42 Personal history of malignant neoplasm of other parts of uterus; Z85.43 Personal history of malignant neoplasm of ovary; Z86.718 Personal history of other venous thrombosis and embolism; Z98.51 Tubal ligation status; Z79.82 Long term (current) use of aspirin; Z79.4 Long term (current) use of insulin; Z79.84 Long term (current) use of oral hypoglycemic drugs; Z79.899 Other long term (current) drug therapy; Z88.1 Allergy status to other antibiotic agents; Z88.2 Allergy status to sulfonamides; Z95.5 Presence of coronary angioplasty implant and graft; Z99.3 Dependence on wheelchair; Z83.3 Family history of diabetes mellitus; Z82.49 Family history of ischemic heart disease and other diseases of the circulatory system; Z82.5 Family history of asthma and other chronic lower respiratory diseases; Z80.0 Family history of malignant neoplasm of digestive organs
CPT/HCPCS: 96360; 96361; 96372 ×3; 99285; 36415; 95819; 93005; 93306; 80061; 80053 ×2; 80175; 84484; 85025 ×2; 85610; 85730; 81001; 83036; 71046; 93880; 70450; G0378 ×3; J1650 ×2

== ENCOUNTER 2022-09-01 10:59 | Observation (INO) | payer OTHER ==
[2022-09-01 11:37] LABS: Glucose,Whole Blood 142 mg/dL (70-110)
--- NOTE | 2022-09-01 12:57 | CT ---
EXAMINATION TYPE: CT brain wo con CT DLP: 1260.8 mGycm, Automated exposure control for dose reduction was used. DATE OF EXAM: 09/01/2022 11:54 AM COMPARISON: 07/19/2022 CT brain, 01/12/2016 MRI brain CLINICAL INDICATION:Dizziness. History of CVA. TECHNIQUE: Brain: Axial CT images of the brain were obtained with coronal and sagittal reformats created and rev iewed. Contrast used: None. Oral contrast used: None. FINDINGS: Brain: Extra-axial spaces: No abnormal extra-axial fluid collections. Ventricular system: Within normal limits Cerebral parenchyma: Remote left basal ganglia/estevez radiata injury with matter changes. Mild enceph alomalacia of the left cerebral hemisphere. No acute intraparenchymal hemorrhage or mass effect. The cortez-white junction is well differentiated. Cerebellum: Unremarkable. Mass effect: No evidence of midline shift. Intracranial vasculature: Atherosclerotic calcifications of the intracranial vessels. Soft tissues: Normal. Calvarium/osseous structures: No depressed skull fracture. Paranasal sinuses and mastoid air cells: Mild scattered paranasal sinus disease. Visualized orbits: Orbital contents are intact. IMPRESSION: 1. No acute intracranial process. 2. Remote injury of the left basal ganglia extending into the estevez radiata are unchanged from prio rs. White matter changes within the right estevez radiata are also present and not significantly vela ed.
--- NOTE | 2022-09-01 13:14 | XR ---
EXAMINATION TYPE: XR chest 1V DATE OF EXAM: 09/01/2022 12:55 PM COMPARISON: Chest radiographs from 07/08/2022 TECHNIQUE: XR chest 1V Frontal view of the chest. CLINICAL INDICATION:Female, 52 years old with history of Dizziness; FINDINGS: Lungs/Pleura: There is no evidence of pleural effusion, focal consolidation, or pneumothorax. Airspa ce opacities in the bases felt to be due to low lung volumes. Pulmonary vascularity: Unremarkable. Heart/mediastinum: Cardiomediastinal silhouette is unremarkable. Musculoskeletal: No acute osseous pathology. IMPRESSION: No acute cardiopulmonary disease/process.
[2022-09-01] MEDS ORDERED: SODIUM CHLORIDE 0.9% 1,000 ML IV ONE (14:51)
[2022-09-01 16:24] LABS: ALT 14 U/L (4-34); AST 24 U/L (14-36); African American GFR (CKD) 59 (>60 ml/min/1.73 sqM); Albumin 3.4 g/dL (3.5-5.0); Albumin/Globulin Ratio 1.6; Alkaline Phosphatase 130 U/L (38-126); Anion Gap 9 mmol/L; Blood Urea Nitrogen 19 mg/dL (7-17); Calcium 9.3 mg/dL (8.4-10.2); Carbon Dioxide 25 mmol/L (22-30); Chloride 99 mmol/L (98-107); Globulin 2.1 g/dL; Glucose 130 mg/dL (74-99); Magnesium 1.8 mg/dL (1.6-2.3); Non-African American GFR(CKD) 52 (>60 ml/min/1.73 sqM); Potassium 3.8 mmol/L (3.5-5.1); Sodium 133 mmol/L (137-145); Total Bilirubin 0.2 mg/dL (0.2-1.3); Total Protein 5.5 g/dL (6.3-8.2)
[2022-09-01 16:31] LABS: Anisocytosis Slight; Basophils # (A) 0.1 k/uL (0-0.2); Basophils % (A) 1 %; Eosinophils # (A) 0.2 k/uL (0-0.7); Eosinophils % (A) 2 %; HCT 27.3 % (34.0-46.0); HGB 8.1 gm/dL (11.4-16.0); Hypochromasia Marked; Lymphocytes # (A) 2.7 k/uL (1.0-4.8); Lymphocytes % (A) 24 %; MCH 21.6 pg (25.0-35.0); MCHC 29.8 g/dL (31.0-37.0); MCV 72.6 fL (80.0-100.0); Mean Platelet Volume 9.1; Microcytosis Moderate; Monocytes # (A) 0.6 k/uL (0-1.0); Monocytes % (A) 6 %; Neutrophils # (A) 7.2 k/uL (1.3-7.7); Neutrophils % (A) 66 %; Platelet Count 266 k/uL (150-450); Poikilocytosis Slight; RBC 3.76 m/uL (3.80-5.40); RDW 16.8 % (11.5-15.5); WBC 10.9 k/uL (3.8-10.6)
[2022-09-01 16:33] LABS: Hypochromasia (M) Present; Poikilocytosis (M) Present; Polychromasia Present; Stomatocytes Present
[2022-09-01 17:43] LABS: Glucose,Whole Blood 119 mg/dL (70-110)
[2022-09-01] MEDS ORDERED: PREGABALIN 75 MG CAP PO PRN (20:20)
[2022-09-01] MEDS ORDERED: INSULIN LISPRO PROTAMIN SQ SCH (21:00)
[2022-09-01] MEDS ORDERED: NON FORMULARY DRUG (Magnesium Gluconate 500 MG Tab) PO SCH (21:00)
[2022-09-01] MEDS ORDERED: [UNRECOGNIZED DRUG - OTHER] SQ SCH (21:00)
[2022-09-01] MEDS ORDERED: LISPRO SQ SCH (21:00)
[2022-09-01] MEDS ORDERED: INSULN ASP PRT/INSULIN ASPART 100 UNIT/ML 10 ML VIAL SQ SCH (21:16)
[2022-09-01] MEDS: CHOLECALCIFEROL 125 MCG (5000 IU) TABLET PO SCH (21:27)
[2022-09-01] MEDS: lamoTRIgine 100 MG TAB PO SCH (21:27)
[2022-09-01] MEDS: carvediloL 12.5 MG TAB PO SCH (21:27)
[2022-09-01] MEDS: INSULIN DETEMIR (LEVEMIR) 100 UNIT/ML SYR SQ SCH (21:27)
[2022-09-01] MEDS: ASPIRIN 81 MG PO SCH (21:27)
[2022-09-01 21:31] LABS: Glucose,Whole Blood 191 mg/dL (70-110)
[2022-09-02] MEDS: HYDROcodone/APAP 5-325MG 1 EACH TAB PO PRN ×2 (03:02→20:53)
[2022-09-02 07:09] LABS: Glucose,Whole Blood 108 mg/dL (70-110)
[2022-09-02] MEDS: lamoTRIgine 100 MG TAB PO SCH ×2 (09:39→20:50)
[2022-09-02] MEDS: INSULIN DETEMIR (LEVEMIR) 100 UNIT/ML SYR SQ SCH ×2 (09:39→20:49)
[2022-09-02] MEDS: lisinopriL 20 MG TAB PO SCH (09:39)
[2022-09-02] MEDS: ALPRAZolam 1 MG TAB PO SCH (09:39)
[2022-09-02] MEDS: metFORMIN 500 MG TAB PO SCH ×2 (09:39→17:47)
[2022-09-02] MEDS: DULoxetine HCL 60 MG CAPSULE.DR PO SCH (09:39)
[2022-09-02] MEDS: CITALOPRAM HYDROBROMIDE 20 MG TAB PO SCH (09:39)
[2022-09-02] MEDS: amLODIPine 10 MG TAB PO SCH (09:40)
[2022-09-02] MEDS: PYRIDOXINE 50 MG TAB PO SCH (09:40)
[2022-09-02] MEDS: ATORVASTATIN 40 MG TAB PO SCH (09:40)
[2022-09-02] MEDS: PANTOPRAZOLE 40 MG TABLET PO SCH (09:40)
[2022-09-02] MEDS: carvediloL 12.5 MG TAB PO SCH ×2 (09:40→20:50)
[2022-09-02] MEDS: ISOSORBIDE MONONITRATE ER 60 MG TAB.ER.24H PO SCH (09:40)
[2022-09-02] MEDS: ARIPiprazole 2 MG TAB PO SCH (09:40)
--- NOTE | 2022-09-02 10:13 | P.HPIM ---
History of Present Illness H&P Date: 09/02/22 Leticia Langleymaren a 52 year old female who presented to [facility] with a chief complaint of numbness and tingling involving the right side of the body patient states that she was sitting at her kitchen table when she started having tingling sensation involving the right side of her head which extended down to the right upper and lower extremities, patient was brought into emergency room she was evaluated by Dr. Hernandez there was a questionable history of a syncopal episode, patient was admitted to telemetry floor for further evaluation and treatment. 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 She was evaluated in the emergency room vital examination on presentation revealed a temperature of 97.6 pulse 64 respiration 20 blood pressure 151/85 pulse ox 92% on 2 L nasal cannula Laboratory data reveals a white blood count of 10.9 hemoglobin 8.1 platelet count 266 sodium 133 potassium 3.8 BUN 19 creatinine 1.22 Testing in the emergency room revealed EKG done in the emergency room revealed sinus rhythm with right bundle branch block and left anterior fascicular block, chest x-ray revealed no acute cardiopulmonary disease, computed tomography scan of the brain revealed no acute intracranial process remote injury of the left basal ganglia extending into the estevez Portillo at the are unchanged from prior exam. Patient was admitted to medical floor for further evaluation and treatment Past Medical History Past Medical History: Blood Disorder, Coronary Artery Disease (CAD), Cancer, Chest Pain / Angina, CVA/TIA, Diabetes Mellitus, Deep Vein Thrombosis (DVT), Fibromyalgia, GERD/Reflux, Hyperlipidemia, Hypertension, Myocardial Infarction ([place]), Musculoskeletal Disorder, Neurologic Disorder, Sleep Apnea/CPAP/BIPAP, Vascular Disorder Additional Past Medical History / Comment(s): IDDM type II, uterine/cervical and ovarian cancer, restless leg, Factor V blood disorder, DVT R leg, 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 - slight foot drag when tired/neuropathies, MS, [place] X 5, ABIGAIL with Cpap use, PAD/legs, R leg edema, past pancreatitis. Last Myocardial Infarction Date:: Pt thinks 2015 History of Any Multi-Drug Resistant Organisms: None Reported Past Surgical History: Section, Cholecystectomy, Heart Catheterization With Stent, Hysterectomy, Tubal Ligation, Uterine Ablation Additional Past Surgical History / Comment(s): vein stripping right leg, radio frequency ablation of right back-02/22/2015, four stents on 04/03/16 and one on march 05, ovaries removed, colonscopy- polyp removal Past Anesthesia/Blood Transfusion Reactions: Motion Sickness Additional Past Anesthesia/Blood Transfusion Reaction / Comment(s): mild claustrophobia Date of Last Stent Placement:: 04/03/16 Past Psychological History: Anxiety, Depression Additional Psychological History / Comment(s): Pt resides with her spouse. She is mostly in her wheelchair. She has a walker and cane. She has a dexcom. Her spouse assists her with her medication organization. Spouse also drives pt. Smoking Status: Current every day smoker Past Alcohol Use History: None Reported Additional Past Alcohol Use History / Comment(s): Pt started smoking in 1988 and is alittle less than a ppd smoker. Past Drug Use History: None Reported - Past Family History Father Family Medical History: Congestive Heart Failure (CHF), Coronary Artery Disease (CAD), Diabetes Mellitus Mother Family Medical History: Cancer, COPD, Hypertension, Respiratory Disorder Additional Family Medical History / Comment(s): emphysema, colon CA Medications and Allergies Home Medications Medication Instructions Recorded Confirmed Type Pregabalin [Lyrica] 150 mg PO TID PRN 06/25/15 09/01/22 History lamoTRIgine 200 mg PO BID 07/30/16 09/01/22 History Magnesium Gluconate [Magonate] 500 mg PO HS 03/27/17 09/01/22 History Aspirin [Adult Low Dose Aspirin EC] 81 mg PO HS 11/26/17 09/01/22 History Enalapril [Vasotec] 10 mg PO BID 11/26/17 09/01/22 History DULoxetine HCL [Cymbalta] 60 mg PO DAILY 08/25/18 09/01/22 History Isosorbide Mononitrate ER [Imdur] 60 mg PO DAILY 09/08/18 09/01/22 History carvediloL [Coreg] 25 mg PO BID 01/22/19 09/01/22 History ARIPiprazole [Abilify] 2 mg PO DAILY 11/08/20 09/01/22 History Insulin Glargine,Hum.rec.anlog 30 unit SQ BID 11/08/20 09/01/22 History [Lantus Solostar Pen] ALPRAZolam [Xanax] 2 mg PO DAILY 07/31/21 09/01/22 History Atorvastatin [Lipitor] 40 mg PO DAILY 07/31/21 09/01/22 History Cholecalciferol (Vitamin D3) 125 mcg PO HS 07/31/21 09/01/22 History [Vitamin D3 (125 MCG = 5,000 IU)] amLODIPine [Norvasc] 10 mg PO DAILY 30 Days #30 tab 01/17/22 09/01/22 Rx Pantoprazole Sodium [Protonix] 40 mg PO DAILY 30 Days #30 tab 03/20/22 09/01/22 Rx Insulin Lispro Protamin/Lispro 25 unit SQ HS 07/20/22 09/01/22 History [humaLOG Mix 75-25 Kwikpen] Insulin Lispro Protamin/Lispro 30 unit SQ QAM 07/20/22 09/01/22 History [humaLOG Mix 75-25 Kwikpen] metFORMIN HCL ER [Glucophage XR] 500 mg PO BID-W/MEALS 07/20/22 09/01/22 History Pyridoxine [Vitamin B-6] 50 mg PO DAILY 30 Days #30 tab 07/22/22 09/01/22 Rx Citalopram Hydrobromide [CeleXA] 20 mg PO DAILY 09/01/22 09/01/22 History Allergies Allergy/AdvReac Type Severity Reaction Status Date / Time Fish Containing Products Allergy Anaphylaxis Verified 09/01/22 16:23 Iodinated Contrast Media Allergy Anaphylaxis Verified 09/01/22 16:23 [Iodinated Contrast Media - IV Dye] Sulfa (Sulfonamide Allergy Anaphylaxis Verified 09/01/22 16:23 Antibiotics) sulfamethoxazole Allergy Anaphylaxis Verified 09/01/22 16:23 [From Septra] tree nut [Nut] Allergy Anaphylaxis Verified 09/01/22 16:23 trimethoprim [From Junra] Allergy Anaphylaxis Verified 09/01/22 16:23 Physical Exam Vitals: Vital Signs Temp Pulse Pulse Resp BP BP BP 09/02/22 07:00 97.8 F 68 14 166/70 09/02/22 03:11 16 11/06/22 02:15 98.7 F 76 18 118/81 09/01/22 19:21 97.6 F 74 18 114/63 09/01/22 16:53 96.4 F L 70 18 167/76 09/01/22 16:07 98.1 F 69 20 151/88 09/01/22 14:34 68 20 154/62 09/01/22 14:30 97.6 F 64 20 151/85 Pulse Ox 09/02/22 07:00 92 L 09/02/22 03:11 97 09/02/22 02:15 96 09/01/22 19:21 95 09/01/22 16:53 92 L 09/01/22 16:07 95 09/01/22 14:34 96 09/01/22 14:30 92 L Intake and Output 09/01/22 09/02/22 09/02/22 23:59 06:59 14:59 Intake Total Output Total Balance Intake: Oral Output: Urine Other: Voiding Method # Voids Weight In general patient is alert and oriented x 3 in no distress HEENT head normocephalic and atraumatic Neck is supple no JVD no goiter no lymphadenopathy no carotid bruit Chest examination is clear to auscultation no crackles no wheezing Cardiac exam reveals regular heart sounds S1 and S2 no gallops no murmurs Abdomen is soft nontender no organomegaly with normal bowel sounds Extremity exam reveals no edema no cyanosis or clubbing Neurological examination reveals spastic paralysis involving the right hand and less so on the right foot, no acute deficits Results CBC & Chem 7: 09/01/22 11:04 09/01/22 11:04 Labs: Abnormal Lab Results - Last 24 Hours (Table) 09/01/22 09/01/22 09/01/22 Range/Units 11:02 11:04 11:04 WBC 10.9 H (3.8-10.6) k/uL RBC 3.76 L (3.80-5.40) m/uL Hgb 8.1 L (11.4-16.0) gm/dL Hct 27.3 L (34.0-46.0) % MCV 72.6 L (80.0-100.0) fL MCH 21.6 L (25.0-35.0) pg MCHC 29.8 L (31.0-37.0) g/dL RDW 16.8 H (11.5-15.5) % Sodium 133 L (137-145) mmol/L BUN 19 H (7-17) mg/dL Creatinine 1.22 H (0.52-1.04) mg/dL Glucose 130 H (74-99) mg/dL POC Glucose (mg/dL) 142 H (70-110) mg/dL Alkaline Phosphatase 130 H (38-126) U/L Total Protein 5.5 L (6.3-8.2) g/dL Albumin 3.4 L (3.5-5.0) g/dL 09/01/22 09/01/22 Range/Units 17:42 21:29 WBC (3.8-10.6) k/uL RBC (3.80-5.40) m/uL Hgb (11.4-16.0) gm/dL Hct (34.0-46.0) % MCV (80.0-100.0) fL MCH (25.0-35.0) pg MCHC (31.0-37.0) g/dL RDW (11.5-15.5) % Sodium (137-145) mmol/L BUN (7-17) mg/dL Creatinine (0.52-1.04) mg/dL Glucose (74-99) mg/dL POC Glucose (mg/dL) 119 H 191 H (70-110) mg/dL Alkaline Phosphatase (38-126) U/L Total Protein (6.3-8.2) g/dL Albumin (3.5-5.0) g/dL Thrombosis Risk Factor Assmnt - Choose All That Apply Any of the Below Risk Factors Present?: Yes Each Factor Represents 1 point: Age 41-60 years, Obesity (BMI >25) Other Risk Factors: No Other congenital or acquired thrombophilia - If yes, enter type in comment: No Thrombosis Risk Factor Assessment Total Risk Factor Score: 2 Thrombosis Risk Factor Assessment Level: Low Risk Assessment and Plan Plan: Numbness involving the right side over the body, cause is unclear, could be related to previous history of stroke, history of multiple sclerosis versus a new event, neurology consultation requested Questionable history of syncope, per ER physician patient had syncope however patient at this time is denying loss of consciousness Mild leukocytosis on presentation Will check urine analysis to rule out infectious process Anemia on presentation hemoglobin 8.1 Will monitor closely, will check stool Hemoccult blood Previous history of stroke in 2015 Underlying history of multiple sclerosis Underlying history of insulin-dependent diabetes mellitus Underlying history of hypertension Underlying history of hyperlipidemia Underlying history of depression with anxiety disorder Previous history of coronary artery disease with history of myocardial infar ction in the past 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 History of nicotine dependence At this time patient is admitted to telemetry floor Will monitor closely Home medications reviewed and reordered Cardiology consultation and neurology consultation requested Echocardiogram and carotid Doppler were done last month For DVT prophylaxis we will use subcu Lovenox For GI prophylaxis patient is on Protonix Will follow closely
[2022-09-02] MEDS: ENOXAPARIN 40 MG/0.4 ML SYRINGE SQ SCH (10:46)
[2022-09-02] MEDS: INSULN ASP PRT/INSULIN ASPART 100 UNIT/ML 10 ML VIAL SQ SCH (10:46)
[2022-09-02 11:56] LABS: Glucose,Whole Blood 218 mg/dL (70-110)
--- NOTE | 2022-09-02 12:37 | P.CNNES ---
History of Present Illness Consult date: 09/02/22 Requesting physician: Evin Sanchez Reason for Consult: numbness right side History of Present Illness: This is a 52-year-old woman with medical history of left subcortical CVA in 2014 and subsequent right spastic hemiparesis, diabetes, hypertension, syncope presented emergency department because of numbness and tingling involving the right side of the body. Some of the history is obtained by the patient's (who is at bedside). It seems the patient was sitting at her kitchen and finished dishes and was trying to go to bedroom but on route she passed out. Per the , she had her eyes closed, and was leaning forward but denies any jerking of extremities, foaming around the mouth and episode was brief. Prior to episode she had numbness and tingling on the right side of face and traveled down her right upper and lower extremities. She denies tongue bite, urinary or bowel incontinence. Then upon waking up she had another passing out episode and this episode lasted about 15 minutes and was similar as prior. Patient stated she is not wheel chair bound but uses the wheel chair as much as possible because of passing out. With these two episode she was in wheel chair entire time. When she does dishes she stand up and leans on left arm if needed. Per , she is having frequent passing out and more frequent as years has passed by. Patient follows-up with Dr. Strange's team and had routine EEG which was reported as normal and had other extensive work-up and was told normal. She is in the process of getting upcoming MRI Brain according to patient. Of note the patient was evaluated by Dr. Mccarty (Neuro-Hospitalist) towards the end of June 2022 for syncope and he felt less likely seizure and to rule out arrhythmia. A routine EEG was done which was abnormal and it was felt due to intermittent focal slowing in the left temporal region. And it's reported as this is suggestive of focal cortical neuronal dysfunction and may suggest underlying structural abnormality. No definite of epileptiform activity was seen. And the normal EEG does not rule out seizure disorder. If you're suspicion for seizures high suggest prolonged sleep deprived EEG. And patient was on Lamictal twice a day for psychiatric reasons and not history of seizures. He felt orthostatics were somewhat questionable positive going from sitting to standing up and that basically the patient is wheelchair bound therefore the positive orthostatic while standing up is of unclear if the significance. And he recommended to consider an event monitor to rule out arrhythmia. He is referred to his note for further details. Some of the workup during this hospital visit consisted of: CT head is reported as no acute process. Remote injury of the left basal ganglia extending into the estevez radiata are unchanged from the priors. White matter changes within the right estevez radiata also present and not significantly change. I personally could not review the CT of the head because of issues with the system. Review of Systems Review of system: The 12 point system was reviewed and apparent positive and negative per HPI. 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 Last Myocardial Infarction Date:: Pt thinks 2015 History of Any Multi-Drug Resistant Organisms: None Reported Past Surgical History: Section, Cholecystectomy, Heart Catheterization With Stent, Hysterectomy, Tubal Ligation, Uterine Ablation Additional Past Surgical History / Comment(s): vein stripping right leg, radio frequency ablation of right back-02/22/2015, four stents on 04/03/16 and one on march 05, ovaries removed, colonscopy- polyp removal Past Anesthesia/Blood Transfusion Reactions: Motion Sickness Additional Past Anesthesia/Blood Transfusion Reaction / Comment(s): mild claustrophobia Date of Last Stent Placement:: 04/03/16 Past Psychological History: Anxiety, Depression Additional Psychological History / Comment(s): Pt resides with her spouse. She is mostly in her wheelchair. She has a walker and cane. She has a dexcom. Her spouse assists her with her medication organization. Spouse also drives pt. Smoking Status: Current every day smoker Past Alcohol Use History: None Reported Additional Past Alcohol Use History / Comment(s): Pt started smoking in 1988 and is alittle less than a ppd smoker. Past Drug Use History: None Reported - Past Family History Father Family Medical History: Congestive Heart Failure (CHF), Coronary Artery Disease (CAD), Diabetes Mellitus Mother Family Medical History: Cancer, COPD, Hypertension, Respiratory Disorder Additional Family Medical History / Comment(s): emphysema, colon CA Medications and Allergies Home Medications Medication Instructions Recorded Confirmed Type Pregabalin [Lyrica] 150 mg PO TID PRN 06/25/15 09/01/22 History lamoTRIgine 200 mg PO BID 07/30/16 09/01/22 History Magnesium Gluconate [Magonate] 500 mg PO HS 03/27/17 09/01/22 History Aspirin [Adult Low Dose Aspirin EC] 81 mg PO HS 11/26/17 09/01/22 History Enalapril [Vasotec] 10 mg PO BID 11/26/17 09/01/22 History DULoxetine HCL [Cymbalta] 60 mg PO DAILY 08/25/18 09/01/22 History Isosorbide Mononitrate ER [Imdur] 60 mg PO DAILY 09/08/18 09/01/22 History carvediloL [Coreg] 25 mg PO BID 01/22/19 09/01/22 History ARIPiprazole [Abilify] 2 mg PO DAILY 11/08/20 09/01/22 History Insulin Glargine,Hum.rec.anlog 30 unit SQ BID 11/08/20 09/01/22 History [Lantus Solostar Pen] ALPRAZolam [Xanax] 2 mg PO DAILY 07/31/21 09/01/22 History Atorvastatin [Lipitor] 40 mg PO DAILY 07/31/21 09/01/22 History Cholecalciferol (Vitamin D3) 125 mcg PO HS 07/31/21 09/01/22 History [Vitamin D3 (125 MCG = 5,000 IU)] amLODIPine [Norvasc] 10 mg PO DAILY 30 Days #30 tab 01/17/22 09/01/22 Rx Pantoprazole Sodium [Protonix] 40 mg PO DAILY 30 Days #30 tab 03/20/22 09/01/22 Rx Insulin Lispro Protamin/Lispro 25 unit SQ HS 07/20/22 09/01/22 History [humaLOG Mix 75-25 Kwikpen] Insulin Lispro Protamin/Lispro 30 unit SQ QAM 07/20/22 09/01/22 History [humaLOG Mix 75-25 Kwikpen] metFORMIN HCL ER [Glucophage XR] 500 mg PO BID-W/MEALS 07/20/22 09/01/22 History Pyridoxine [Vitamin B-6] 50 mg PO DAILY 30 Days #30 tab 07/22/22 09/01/22 Rx Citalopram Hydrobromide [CeleXA] 20 mg PO DAILY 09/01/22 09/01/22 History Allergies Allergy/AdvReac Type Severity Reaction Status Date / Time Fish Containing Products Allergy Anaphylaxis Verified 09/01/22 16:23 Iodinated Contrast Media Allergy Anaphylaxis Verified 09/01/22 16:23 [Iodinated Contrast Media - IV Dye] Sulfa (Sulfonamide Allergy Anaphylaxis Verified 09/01/22 16:23 Antibiotics) sulfamethoxazole Allergy Anaphylaxis Verified 09/01/22 16:23 [From ] tree nut [Nut] Allergy Anaphylaxis Verified 09/01/22 16:23 trimethoprim [From ] Allergy Anaphylaxis Verified 09/01/22 16:23 Physical Examination - Vital Signs Vital Signs: Vital Signs Temp Pulse Pulse Resp BP BP BP 09/02/22 07:00 97.8 F 68 14 166/70 09/02/22 03:11 16 09/02/22 02:15 98.7 F 76 18 118/81 09/01/22 19:21 97.6 F 74 18 114/63 09/01/22 16:53 96.4 F L 70 18 167/76 09/01/22 16:07 98.1 F 69 20 151/88 09/01/22 14:34 68 20 154/62 09/01/22 14:30 97.6 F 64 20 151/85 Pulse Ox 09/02/22 07:00 92 L 09/02/22 03:11 97 09/02/22 02:15 96 09/01/22 19:21 95 09/01/22 16:53 92 L 09/01/22 16:07 95 09/01/22 14:34 96 09/01/22 14:30 92 L Intake and Output 09/01/22 09/02/22 09/02/22 23:59 06:59 14:59 Intake Total 118 Output Total Balance 118 Intake: Oral 118 Output: Urine Other: Voiding Method # Voids Weight GENERAL: The patient is lying in bed and is not in acute distress. CHEST: The heart rate is regular rate rhythm. No murmurs to auscultation. LUNG: Clear to auscultation bilaterally no wheezing noted throughout. Not labored breathing. ABDOMEN/GI: Bowel sounds present in all 4 quadrants. No tenderness to palpation throughout. NEUROLOGICAL: Higher mental function: The patient is awake, alert, oriented to self, place and time. Patient is following commands. No aphasia and no neglect. Cranial nerves: The pupils are round, equal and reactive to light and accommodation. Visual li are full to confrontation throughout. Extraocular movement is intact no nystagmus is noted. Facial sensation is normal to touch throughout. The facial strength is normal throughout. Hearing is normal bilaterally to hand rub. Tongue is midline and moved [id number] without any difficulty. No dysarthria is noted. Shoulder shrug is normal bilaterally. Motor: Gait is deferred. The strength is has spasticity in the right uppers (predominately distal) and able to raise above gravity. while right lower is 5- . Left is 5 over 5. Has spasticity over the right distal upper. Cerebellum: Normal finger to nose on left. Sensation: Sensation is normal to touch throughout. Reflexes (right/left): 1+ throughout. Plantars are upgoing bilaterally bilaterally. Results - Laboratory Findings CBC and BMP: 09/01/22 11:04 09/01/22 11:04 Abnormal Lab Findings: Abnormal Labs 09/01/22 09/01/22 09/01/22 11:02 11:04 11:04 WBC 10.9 H RBC 3.76 L Hgb 8.1 L Hct 27.3 L MCV 72.6 L MCH 21.6 L MCHC 29.8 L RDW 16.8 H Sodium 133 L BUN 19 H Creatinine 1.22 H Glucose 130 H POC Glucose (mg/dL) 142 H Alkaline Phosphatase 130 H Total Protein 5.5 L Albumin 3.4 L 09/01/22 09/01/22 17:42 21:29 WBC RBC Hgb Hct MCV MCH MCHC RDW Sodium BUN Creatinine Glucose POC Glucose (mg/dL) 119 H 191 H Alkaline Phosphatase Total Protein Albumin Assessment and Plan Assessment: Parestehsia over the right side with syncopal episode: Rule out seizure. Paresthesia has resolved. Recurrent passing out/Syncopal episodes. Rule out cardiac arrhythmia. Also rule out seizure because of old history of stroke (which can cause cortical irritability). Had prior EEGs and was told no seizure. 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 Reported history of Multiple Sclerosis that is reported but on current CT no mention of MS lesions Diabetes Hypertension Plan: I ordered a repeat routine EEG. If negative for seizure recommend prolonged EEG as outpatient/epilepsy monitoring unit to capture those episode. She is currently on Lamictal 200mg 1 tab bid (for psych related and not seizure) but medication has anti-epileptic benefit. If EEG is negative for seizure, notified patient and her to consider starting Vimpat 50mg 1 tab bid as prophylaxis to assess in improvement in her passing out and if so then likely seizures. I will order vitamin B12, folate, TSH for her paresthesia. She has upcoming appointment with her neurologist for upcoming MRI Brain. Cardiology is consulted for syncope. Patient had the EKG was reported as right bundle branch block, left anterior fascicular block, sinus rhythm. Will defer the rest of medical management to the primary team. Recommend the patient follow up with her neurologist (Dr. Strange's team) as an outpatient within 1-2 weeks The plan is discussed with patient, her (who is at bedside) and her nurse. Thank you for the consultation. Time with Patient: Greater than 30
--- NOTE | 2022-09-02 13:00 | P.CRDCN ---
History of Present Illness Consult date: 09/02/22 Requesting physician: Evin Sanchez Reason for Consult (text): syncope Chief complaint: right-sided tingling History of present illness: This is a pleasant 52-year-old female past medical history significant for CVA , MS, factor V deficiency, coronary artery disease status post prior PCI to LAD, diagonal and RCA most recent stress tests with a Lexiscan MPI in January of this year that showed no evidence for ischemia, hypertension, dyslipidemia, diabetes mellitus and chronic nicotine dependence. She follows in the office with Dr. Jasso. We have been asked to see in consultation for syncope. History of recent admission in June of this year for similar complaints at that time a cardiogram with Doppler study showed multiple LV systolic function with severe concentric LVH, mild MR and mild TR. He was evaluated by neurology at that time as well as our service and recommended to Undergo event monitor as an outpatient. The patient not believe this was done. During that admission her hemoglobin A1c was 12.9. Dr. Strange has an outpatient and recently underwent some testing through his office and is awaiting the results. This admission she initially developed some right sided different sensation that she described as a bolus crawling under her skin but developed initially on her right head and then down her right arm and leg. She went to her room to change her clothes and lay down and according to the she passed out in her wheelchair in the hallway, believes this is brief, came to when he said her name. He then got her into the bedroom was helping her change her clothes and when she sat down on the bed she fell back and according to the was out for 15 minutes at which time she was still breathing and had a pulse according to him. No loss of bowel or bladder control. No seizure-like activity. According to the she was out for about 15 minutes until EMS got there. Laboratory values showed hemoglobin of 8.1, white blood cell count 10.9, sodium 133, BUN 19, creatinine 1.2-3, troponin negative 1. Degenerative admission showed sinus mechanism with a right bundle branch block and left anterior fascicular block, no change com pared to EKG from June. Blood pressures have been anywhere from 118 systolic to 166. Heart rate has been in the 60s and 70s. On examination she is sitting up on the side of the bed she is overall feeling a bit better. She continues to feel the range sensation in her right leg. She's had no further syncopal episodes. Past Medical History Past Medical History: Blood Disorder, Coronary Artery Disease (CAD), Cancer, Chest Pain / Angina, CVA/TIA, Diabetes Mellitus, Deep Vein Thrombosis (DVT), Fibromyalgia, GERD/Reflux, Hyperlipidemia, Hypertension, Myocardial Infarction (ND), Musculoskeletal Disorder, Neurologic Disorder, Sleep Apnea/CPAP/BIPAP, V ascular Disorder Additional Past Medical History / Comment(s): IDDM type II, uterine/cervical and ovarian cancer, restless leg, Factor V blood disorder, DVT R leg, 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 - slight foot drag when tired/neuropathies, MS, ND X 5, ABIGAIL with Cpap use, PAD/legs, R leg edema, past pancreatitis. Last Myocardial Infarction Date:: Pt thinks 2015 History of Any Multi-Drug Resistant Organisms: None Reported Past Surgical History: Section, Cholecystectomy, Heart Catheterization With Stent, Hysterectomy, Tubal Ligation, Uterine Ablation Additional Past Surgical History / Comment(s): vein stripping right leg, radio frequency ablation of right back-02/22/2015, four stents on 04/03/16 and one on march 05, ovaries removed, colonscopy- polyp removal Past Anesthesia/Blood Transfusion Reactions: Motion Sickness Additional Past Anesthesia/Blood Transfusion Reaction / Comment(s): mild chet strophobia Date of Last Stent Placement:: 04/03/16 Past Psychological History: Anxiety, Depression Additional Psychological History / Comment(s): Pt resides with her spouse. She is mostly in her wheelchair. She has a walker and cane. She has a dexcom. Her spouse assists her with her medication organization. Spouse also drives pt. Smoking Status: Current every day smoker Past Alcohol Use History: None Reported Additional Past Alcohol Use History / Comment(s): Pt started smoking in 1988 and is alittle less than a ppd smoker. Past Drug Use History: None Reported - Past Family History Father Family Medical History: Congestive Heart Failure (CHF), Coronary Artery Disease (CAD), Diabetes Mellitus Mother Family Medical History: Cancer, COPD, Hypertension, Respiratory Disorder Additional Family Medical History / Comment(s): emphysema, colon CA Medications and Allergies Home Medications Medication Instructions Recorded Confirmed Type Pregabalin [Lyrica] 150 mg PO TID PRN 06/25/15 09/01/22 History lamoTRIgine 200 mg PO BID 07/30/16 09/01/22 History Magnesium Gluconate [Magonate] 500 mg PO HS 03/27/17 09/01/22 History Aspirin [Adult Low Dose Aspirin EC] 81 mg PO HS 11/26/17 09/01/22 History Enalapril [Vasotec] 10 mg PO BID 11/26/17 09/01/22 History DULoxetine HCL [Cymbalta] 60 mg PO DAILY 08/25/18 09/01/22 History Isosorbide Mononitrate ER [Imdur] 60 mg PO DAILY 09/08/18 09/01/22 History carvediloL [Coreg] 25 mg PO BID 01/22/19 09/01/22 History ARIPiprazole [Abilify] 2 mg PO DAILY 11/08/20 09/01/22 History Insulin Glargine,Hum.rec.anlog 30 unit SQ BID 11/08/20 09/01/22 History [Lantus Solostar Pen] ALPRAZolam [Xanax] 2 mg PO DAILY 07/31/21 09/01/22 History Atorvastatin [Lipitor] 40 mg PO DAILY 07/31/21 09/01/22 History Cholecalciferol (Vitamin D3) 125 mcg PO HS 07/31/21 09/01/22 History [Vitamin D3 (125 MCG = 5,000 IU)] amLODIPine [Norvasc] 10 mg PO DAILY 30 Days #30 tab 01/17/22 09/01/22 Rx Pantoprazole Sodium [Protonix] 40 mg PO DAILY 30 Days #30 tab 03/20/22 09/01/22 Rx Insulin Lispro Protamin/Lispro 25 unit SQ HS 07/20/22 09/01/22 History [humaLOG Mix 75-25 Kwikpen] Insulin Lispro Protamin/Lispro 30 unit SQ QAM 07/20/22 09/01/22 History [humaLOG Mix 75-25 Kwikpen] metFORMIN HCL ER [Glucophage XR] 500 mg PO BID-W/MEALS 07/20/22 09/01/22 History Pyridoxine [Vitamin B-6] 50 mg PO DAILY 30 Days #30 tab 07/22/22 09/01/22 Rx Citalopram Hydrobromide [CeleXA] 20 mg PO DAILY 09/01/22 09/01/22 History Allergies Allergy/AdvReac Type Severity Reaction Status Date / Time Fish Containing Products Allergy Anaphylaxis Verified 09/01/22 16:23 Iodinated Contrast Media Allergy Anaphylaxis Verified 09/01/22 16:23 [Iodinated Contrast Media - IV Dye] Sulfa (Sulfonamide Allergy Anaphylaxis Verified 09/01/22 16:23 Antibiotics) sulfamethoxazole Allergy Anaphylaxis Verified 09/01/22 16:23 [From Junra] tree nut [Nut] Allergy Anaphylaxis Verified 09/01/22 16:23 trimethoprim [From ] Allergy Anaphylaxis Verified 09/01/22 16:23 Physical Exam Vitals: Vital Signs Temp Pulse Pulse Resp BP BP BP 09/02/22 07:00 97.8 F 68 14 166/70 09/02/22 03:11 16 09/02/22 02:15 98.7 F 76 18 118/81 09/01/22 19:21 97.6 F 74 18 114/63 09/01/22 16:53 96.4 F L 70 18 167/76 09/01/22 16:07 98.1 F 69 20 151/88 09/01/22 14:34 68 20 154/62 09/01/22 14:30 97.6 F 64 20 151/85 Pulse Ox 09/02/22 07:00 92 L 09/02/22 03:11 97 09/02/22 02:15 96 09/01/22 19:21 95 09/01/22 16:53 92 L 09/01/22 16:07 95 09/01/22 14:34 96 09/01/22 14:30 92 L Intake and Output 09/01/22 09/02/22 09/02/22 23:59 06:59 14:59 Intake Total 118 Output Total Balance 118 Intake: Oral 118 Output: Urine Other: Voiding Method # Voids Weight CONSTITUTIONAL: No apparent distress. HEENT: Head is normocephalic. Pupils are equal, round. Sclerae anicteric. Mucous membranes of the mouth are moist. No JVD. No carotid bruit. CHEST EXAMINATION: Lungs are clear to auscultation. No chest wall tenderness is noted on palpation or with deep breathing. HEART EXAMINATION: Regular rate and rhythm. S1, S2 heard. No murmurs, gallops or rub. ABDOMEN: Soft, nontender. Positive bowel sounds. EXTREMITIES: 2+ peripheral pulses, no lower extremity edema and no calf tenderness. NEUROLOGIC EXAMINATION: Patient is awake and alert, Oriented x 3. Right sided weakness from prior CVA Results 09/01/22 11:04 09/01/22 11:04 Cardiac Enzymes 09/01/22 09/01/22 Range/Units 11:04 11:04 AST 24 (14-36) U/L Troponin I <0.012 (0.000-0.034) ng/mL CBC 09/01/22 Range/Units 11:04 WBC 10.9 H (3.8-10.6) k/uL RBC 3.76 L (3.80-5.40) m/uL Hgb 8.1 L (11.4-16.0) gm/dL Hct 27.3 L (34.0-46.0) % Plt Count 266 (150-450) k/uL Comprehensive Metabolic Panel 09/01/22 Range/Units 11:04 Sodium 133 L (137-145) mmol/L Potassium 3.8 (3.5-5.1) mmol/L Chloride 99 (98-107) mmol/L Carbon Dioxide 25 (22-30) mmol/L BUN 19 H (7-17) mg/dL Creatinine 1.22 H (0.52-1.04) mg/dL Glucose 130 H (74-99) mg/dL Calcium 9.3 (8.4-10.2) mg/dL AST 24 (14-36) U/L ALT 14 (4-34) U/L Alkaline Phosphatase 130 H (38-126) U/L Total Protein 5.5 L (6.3-8.2) g/dL Albumin 3.4 L (3.5-5.0) g/dL Current Medications Generic Name Dose Route Start Last Admin Trade Name Freq PRN Reason Stop Dose Admin Hydrocodone Bitart/Acetaminophen 1 each 09/01/22 20:23 09/02/22 03:02 Hydrocodone/Apap 5-325mg 1 Each Tab PO 1 each Q6HR PRN Administration Pain Alprazolam 2 mg 09/02/22 09:00 09/02/22 09:39 Alprazolam 1 Mg Tab PO 2 mg DAILY SARAHY Administration Amlodipine Besylate 10 mg 09/02/22 09:00 09/02/22 09:40 Amlodipine 10 Mg Tab PO 10 mg DAILY [facility] Administration Aripiprazole 2 mg 09/02/22 09:00 09/02/22 09:40 Aripiprazole 2 Mg Tab PO 2 mg DAILY [facility] Administration Aspirin 81 mg 09/01/22 21:00 09/01/22 21:27 Aspirin 81 Mg PO 81 mg HS [facility] Administration Atorvastatin Calcium 40 mg 09/02/22 09:00 09/02/22 09:40 Atorvastatin 40 Mg Tab PO 40 mg DAILY [facility] Administration Carvedilol 25 mg 09/01/22 21:00 09/02/22 09:40 Carvedilol 12.5 Mg Tab PO 25 mg BID [facility] Administration Cholecalciferol 125 mcg 09/01/22 21:00 09/01/22 21:27 Cholecalciferol 125 Mcg (5000 Iu) Tablet PO 125 mcg HS [facility] Administration Citalopram Hydrobromide 20 mg 09/02/22 09:00 09/02/22 09:39 Citalopram Hydrobromide 20 Mg Tab PO 20 mg DAILY [facility] Administration Duloxetine HCl 60 mg 09/02/22 09:00 09/02/22 09:39 Duloxetine Hcl 60 Mg Capsule.Dr PO 60 mg DAILY [facility] Administration Enoxaparin Sodium 40 mg 09/02/22 10:15 09/02/22 10:46 Enoxaparin 40 Mg/0.4 Ml Syringe SQ 40 mg DAILY [facility] Administration Insulin Aspart 30 unit 09/02/22 09:00 09/02/22 10:46 Insuln Asp Prt/Insulin Aspart 100 Unit/Ml 10 Ml Vial SQ 30 unit QAM [facility] Administration Insulin Aspart 25 unit 09/01/22 21:16 Insuln Asp Prt/Insulin Aspart 100 Unit/Ml 10 Ml Vial SQ HS [facility] Insulin Detemir 30 unit 09/01/22 21:00 09/02/22 09:39 Insulin Detemir (Levemir) 100 Unit/Ml Syr SQ 30 unit BID [facility] Administration Isosorbide Mononitrate 60 mg 09/02/22 09:00 09/02/22 09:40 Isosorbide Mononitrate Er 60 Mg Tab.Er.24h PO 60 mg DAILY [facility] Administration Lamotrigine 200 mg 09/01/22 21:00 09/02/22 09:39 Lamotrigine 100 Mg Tab PO 200 mg BID SARAHY Administration Lisinopril 40 mg 09/02/22 09:00 09/02/22 09:39 Lisinopril 20 Mg Tab PO 40 mg DAILY [facility]AHY Administration Metformin HCl 500 mg 09/02/22 08:30 09/02/22 09:39 Metformin 500 Mg Tab PO 500 mg BID-W/MEALS SARAHY Administration Pantoprazole Sodium 40 mg 09/02/22 09:00 09/02/22 09:40 Pantoprazole 40 Mg Tablet PO 40 mg DAILY [facility] Administration Pregabalin 150 mg 09/01/22 20:20 Pregabalin 75 Mg Cap PO TID PRN Pain Pyridoxine HCl 50 mg 09/02/22 09:00 09/02/22 09:40 Pyridoxine 50 Mg Tab PO 50 mg DAILY SARAHY Administration Intake and Output 09/01/22 09/02/22 09/02/22 23:59 06:59 14:59 Intake Total 118 Output Total Balance 118 Intake: Oral 118 Output: Urine Other: Voiding Method # Voids Weight 09/01/22 11:04 09/01/22 11:04 Assessment and Plan Assessment: 1 syncope, patient does not recall episodes, one episode was with standing #2 history of CVA with right-sided residual weakness and contracture #3 CAD status post prior PCI to the LAD, diagonal and RCA, MPI from January showed no evidence of ischemia #4 chronic kidney disease, stable #5 anemia with a baseline hemoglobin of around 9-10 #6 hypertension #7 hyperlipidemia #8 Type 2 diabetes, poorly controlled #9 chronic nicotine dependence #10 history of factor V deficiency #11 multiple sclerosis Plan: From cardiology's perspective no indication for further testing at this time. Monitor the patient on telemetry for 24 hours. Obtain orthostatic blood pressures. Patient would benefit from an outpatient event monitor. Await neurology eval. and anticipate the patient will be discharged home in the next 4 hours. Upon discharge she will have an event monitor put on through our office and follow-up with Dr. Jasso. PROGRAM MGR note has been reviewed, I agree with a documented findings and plan of care. Patient was seen and examined.
[2022-09-02 13:21] LABS: Anisocytosis Slight; Basophils % (A) 1 %; Eosinophils # (A) 0.1 k/uL (0-0.7); Eosinophils % (A) 1 %; HCT 27.9 % (34.0-46.0); HGB 7.9 gm/dL (11.4-16.0); Hypochromasia Marked; Lymphocytes # (A) 2.5 k/uL (1.0-4.8); Lymphocytes % (A) 28 %; MCHC 28.4 g/dL (31.0-37.0); MCV 74.1 fL (80.0-100.0); Mean Platelet Volume 10.9; Microcytosis Moderate; Monocytes # (A) 0.5 k/uL (0-1.0); Monocytes % (A) 5 %; Neutrophils # (A) 5.5 k/uL (1.3-7.7); Neutrophils % (A) 62 %; Platelet Count 245 k/uL (150-450); Poikilocytosis Slight; RBC 3.77 m/uL (3.80-5.40); RDW 16.8 % (11.5-15.5)
[2022-09-02 13:23] LABS: ALT 13 U/L (4-34); AST 17 U/L (14-36); African American GFR (CKD) 50 (>60 ml/min/1.73 sqM); Albumin 3.1 g/dL (3.5-5.0); Albumin/Globulin Ratio 1.6; Alkaline Phosphatase 107 U/L (38-126); Anion Gap 4 mmol/L; Blood Urea Nitrogen 19 mg/dL (7-17); Calcium 9.4 mg/dL (8.4-10.2); Carbon Dioxide 31 mmol/L (22-30); Chloride 105 mmol/L (98-107); Glucose 144 mg/dL (74-99); Non-African American GFR(CKD) 43 (>60 ml/min/1.73 sqM); Potassium 3.7 mmol/L (3.5-5.1); Sodium 140 mmol/L (137-145); Total Bilirubin 0.3 mg/dL (0.2-1.3); Total Protein 5.1 g/dL (6.3-8.2)
[2022-09-02 17:06] LABS: Glucose,Whole Blood 164 mg/dL (70-110)
[2022-09-02 19:09] LABS: Glucose,Whole Blood 198 mg/dL (70-110)
[2022-09-02] MEDS: ASPIRIN 81 MG PO SCH (20:50)
[2022-09-02] MEDS: CHOLECALCIFEROL 125 MCG (5000 IU) TABLET PO SCH (20:50)
[2022-09-02 23:52] LABS: Appearance,Urine Clear (Clear); Bacteria,Urine Rare /hpf; Bilirubin,Urine Negative (Negative); Blood,Urine Negative (Negative); Color,Urine Yellow; Glucose,Urine (UA) 4+ (Negative); Hyaline Casts,Urine 1 /lpf (0-2); Ketones,Urine Negative (Negative); Leukocyte Esterase,Urine Negative (Negative); Nitrite,Urine Negative (Negative); Protein,Urine 3+ (Negative); RBC,Urine 2 /hpf (0-5); Specific Gravity,Urine 1.024 (1.001-1.035); Urobilinogen,Urine <2.0 mg/dL (<2.0); WBC,Urine 1 /hpf (0-5)
[2022-09-03] MEDS: metFORMIN 500 MG TAB PO SCH (07:01)
[2022-09-03 08:09] LABS: Glucose,Whole Blood 170 mg/dL (70-110)
[2022-09-03 08:42] LABS: HCT 26.7 % (37.2-46.3); HGB 7.4 g/dL (12.0-15.0); MCH 20.4 pg (27.0-32.0); MCHC 27.7 g/dL (32.0-37.0); MCV 73.8 fL (80.0-97.0); Mean Platelet Volume 11.4 fL (9.5-12.2); NRBC Per 100 WBC 0 /100 WBCS (0.0-0.0); Platelet Count 280 X 10*3/uL (140-440); RBC 3.62 X 10*6/uL (4.10-5.20); RDW 17.4 % (11.5-14.5); WBC 10.57 X 10*3/uL (4.50-10.00)
[2022-09-03] MEDS: INSULN ASP PRT/INSULIN ASPART 100 UNIT/ML 10 ML VIAL SQ SCH (09:02)
[2022-09-03] MEDS: INSULIN DETEMIR (LEVEMIR) 100 UNIT/ML SYR SQ SCH ×2 (09:02→09:07)
[2022-09-03] MEDS: ENOXAPARIN 40 MG/0.4 ML SYRINGE SQ SCH (09:03)
[2022-09-03] MEDS: ISOSORBIDE MONONITRATE ER 60 MG TAB.ER.24H PO SCH (09:03)
[2022-09-03] MEDS: PYRIDOXINE 50 MG TAB PO SCH (09:03)
[2022-09-03] MEDS: ARIPiprazole 2 MG TAB PO SCH (09:03)
[2022-09-03] MEDS: DULoxetine HCL 60 MG CAPSULE.DR PO SCH (09:04)
[2022-09-03] MEDS: lamoTRIgine 100 MG TAB PO SCH (09:04)
[2022-09-03] MEDS: ATORVASTATIN 40 MG TAB PO SCH (09:04)
[2022-09-03] MEDS: PANTOPRAZOLE 40 MG TABLET PO SCH (09:04)
[2022-09-03] MEDS: carvediloL 12.5 MG TAB PO SCH (09:04)
[2022-09-03] MEDS: amLODIPine 10 MG TAB PO SCH (09:04)
[2022-09-03] MEDS: lisinopriL 20 MG TAB PO SCH (09:04)
[2022-09-03] MEDS: CITALOPRAM HYDROBROMIDE 20 MG TAB PO SCH (09:04)
[2022-09-03 09:08] LABS: ALT 12 U/L (8-44); AST 12 U/L (13-35); African American GFR (CKD) 46.3 (60.0-200.0); Albumin 3.4 g/dL (3.8-4.9); Alkaline Phosphatase 128 U/L (41-126); Blood Urea Nitrogen 23.1 mg/dL (9.0-27.0); Calcium 9.4 mg/dL (8.7-10.3); Carbon Dioxide 26.8 mmol/L (20.0-27.5); Chloride 102 mmol/L (96-109); Globulin 1.7 g/dL (1.6-3.3); Glucose 165 mg/dL (70-110); Non-African American GFR(CKD) 39.9 (60.0-200.0); Potassium 3.9 mmol/L (3.5-5.5); Sodium 138 mmol/L (135-145); Total Bilirubin <0.15 mg/dL (0.30-1.20); Total Protein 5.1 g/dL (6.2-8.2)
--- NOTE | 2022-09-03 09:50 | P.PN ---
Subjective Progress Note Date: 09/03/22 HISTORY OF PRESENT ILLNESS: This is a pleasant 52-year-old female past medical history significant for CVA , MS, factor V deficiency, coronary artery disease status post prior PCI to LAD, diagonal and RCA most recent stress tests with a Lexiscan MPI in January of this year that showed no evidence for ischemia, hypertension, dyslipidemia, diabetes mellitus and chronic nicotine dependence. She follows in the office with Dr. Jasso. We have been asked to see in consultation for syncope. History of recent admission in June of this year for similar complaints at that time a cardiogram with Doppler study showed multiple LV systolic function with severe concentric LVH, mild MR and mild TR. He was evaluated by neurology at that time as well as our service and recommended to Undergo event monitor as an outpatient. The patient not believe this was done. During that admission her hemoglobin A1c was 12.9. Dr. Strange has an outpatient and recently underwent some testing through his office and is awaiting the results. This admission she initially developed some right sided different sensation that she described as a bolus crawling under her skin but developed initially on her right head and then down her right arm and leg. She went to her room to change her clothes and lay down and according to the she passed out in her wheelchair in the [facility], believes this is brief, came to when he said her name. He then got her into the bedroom was helping her change her clothes and when she sat down on the bed she fell back and according to the was out for 15 minutes at which time she was still breathing and had a pulse according to him. No loss of bowel or bladder control. No seizure-like activity. According to the she was out for about 15 minutes until EMS got there. Laboratory values showed hemoglobin of 8.1, white blood cell count 10.9, sodium 133, BUN 19, creatinine 1.2-3, troponin negative 1. Degenerative admission showed sinus mechanism with a right bundle branch block and left anterior fascicular block, no change compared to EKG from June. Blood pressures have been anywhere from 118 systolic to 166. Heart rate has been in the 60s and 70s. On examination she is sitting up on the side of the bed she is overall feeling a bit better. She continues to feel the range sensation in her right leg. She's had no further syncopal episodes. 09/03/2022 Patient examined this morning at the bedside. Patient denies chest pain or pressure. She denies shortness of breath. Telemetry reveals sinus mechanism. Vital signs are stable. PHYSICAL EXAM: VITAL SIGNS: Reviewed. GENERAL: Well-developed in no acute distress. NECK: Supple. No JVD or thyromegaly LUNGS: Respirations even and unlabored. Lungs essentially clear to auscultation bilaterally. HEART: Regular rate and rhythm. S1 and S2 heard. EXTREMITIES: Normal range of motion. No clubbing or cyanosis. Peripheral pulses intact. No lower extremity edema ASSESSMENT: 1 syncope, patient does not recall episodes, one episode was with standing #2 history of CVA with right-sided residual weakness and contracture #3 CAD status post prior PCI to the LAD, diagonal and RCA, MPI from January showed no evidence of ischemia #4 chronic kidney disease, stable #5 anemia with a baseline hemoglobin of around 9-10 #6 hypertension #7 hyperlipidemia #8 Type 2 diabetes, poorly controlled #9 chronic nicotine dependence #10 history of factor V deficiency #11 multiple sclerosis PLAN: No further inpatient recommendations from a cardiac standpoint Patient may be discharged home today from a cardiology perspective She will follow up on an outpatient basis with Dr. Jasso Patient will have an event monitor placed at her follow-up appointment with Dr. Jasso Nurse practitioner note has been reviewed by physician. Signing provider agrees with the documented findings, assessment, and plan of care. Objective - Vital Signs Vital signs: Vital Signs Temp 98.0 F 09/03/22 08:51 Pulse 73 09/03/22 08:51 Resp 14 09/03/22 08:51 BP 168/78 09/03/22 08:51 Pulse Ox 96 09/03/22 08:51 FiO2 Intake & Output 09/02/22 09/03/22 09/03/22 18:59 06:59 18:59 Intake Total 476 1000 Balance 476 1000 Intake: Oral 476 1000 Other: Voiding Method External Catheter Toilet External Catheter # Voids 3 # Bowel Movements 1 - Labs CBC & Chem 7: 09/03/22 06:04 09/03/22 06:04 Labs: Abnormal Lab Results - Last 24 Hours (Table) 09/02/22 09/02/22 09/02/22 Range/Units 11:54 12:49 12:49 WBC (4.50-10.00) X 10*3/uL RBC 3.77 L (3.80-5.40) m/uL Hgb 7.9 L (11.4-16.0) gm/dL Hct 27.9 L (34.0-46.0) % MCV 74.1 L (80.0-100.0) fL MCH 21.0 L (25.0-35.0) pg MCHC 28.4 L (31.0-37.0) g/dL RDW 16.8 H (11.5-15.5) % Carbon Dioxide 31 H (22-30) mmol/L Anion Gap (10.00-18.00) mmol/L BUN 19 H (7-17) mg/dL Creatinine 1.41 H (0.52-1.04) mg/dL Est GFR (CKD-EPI)AfAm (60.0-200.0) Est GFR (CKD-EPI)NonAf (60.0-200.0) Glucose 144 H (74-99) mg/dL POC Glucose (mg/dL) 218 H (70-110) mg/dL Total Bilirubin (0.30-1.20) mg/dL AST (13-35) U/L Alkaline Phosphatase (41-126) U/L Total Protein 5.1 L (6.3-8.2) g/dL Albumin 3.1 L (3.5-5.0) g/dL Vitamin B12 1581.0 H (200.0-944.0) pg/mL Urine Protein (Negative) Urine Glucose (UA) (Negative) Urine Bacteria (None) /hpf 09/02/22 09/02/22 09/02/22 Range/Units 17:04 19:08 23:30 WBC (4.50-10.00) X 10*3/uL RBC (3.80-5.40) m/uL Hgb (11.4-16.0) gm/dL Hct (34.0-46.0) % MCV (80.0-100.0) fL MCH (25.0-35.0) pg MCHC (31.0-37.0) g/dL RDW (11.5-15.5) % Carbon Dioxide (22-30) mmol/L Anion Gap (10.00-18.00) mmol/L BUN (7-17) mg/dL Creatinine (0.52-1.04) mg/dL Est GFR (CKD-EPI)AfAm (60.0-200.0) Est GFR (CKD-EPI)NonAf (60.0-200.0) Glucose (74-99) mg/dL POC Glucose (mg/dL) 164 H 198 H (70-110) mg/dL Total Bilirubin (0.30-1.20) mg/dL AST (13-35) U/L Alkaline Phosphatase (41-126) U/L Total Protein (6.3-8.2) g/dL Albumin (3.5-5.0) g/dL Vitamin B12 (200.0-944.0) pg/mL Urine Protein 3+ H (Negative) Urine Glucose (UA) 4+ H (Negative) Urine Bacteria Rare H (None) /hpf 09/03/22 09/03/22 09/03/22 Range/Units 06:04 06:04 08:08 WBC 10.57 H (4.50-10.00) X 10*3/uL RBC 3.62 L (3.80-5.40) m/uL Hgb 7.4 L (11.4-16.0) gm/dL Hct 26.7 L (34.0-46.0) % MCV 73.8 L (80.0-100.0) fL MCH 20.4 L (25.0-35.0) pg MCHC 27.7 L (31.0-37.0) g/dL RDW 17.4 H (11.5-15.5) % Carbon Dioxide (22-30) mmol/L Anion Gap 9.20 L (10.00-18.00) mmol/L BUN (7-17) mg/dL Creatinine (0.52-1.04) mg/dL Est GFR (CKD-EPI)AfAm 46.3 L (60.0-200.0) Est GFR (CKD-EPI)NonAf 39.9 L (60.0-200.0) Glucose 165 H (74-99) mg/dL POC Glucose (mg/dL) 170 H (70-110) mg/dL Total Bilirubin <0.15 L (0.30-1.20) mg/dL AST 12 L (13-35) U/L Alkaline Phosphatase 128 H (41-126) U/L Total Protein 5.1 L (6.3-8.2) g/dL Albumin 3.4 L (3.5-5.0) g/dL Vitamin B12 (200.0-944.0) pg/mL Urine Protein (Negative) Urine Glucose (UA) (Negative) Urine Bacteria (None) /hpf
[2022-09-03 09:56] LABS: Basophils # (A) 0.08 X 10*3/uL (0.00-0.10); Basophils % (A) 0.8 %; Eosinophils # (A) 0.27 X 10*3/uL (0.04-0.35); Eosinophils % (A) 2.6 %; Hypochromasia (M) 2+; Immature Grans, Automated 0.4 %; Lymphocytes # (A) 2.28 X 10*3/uL (0.90-5.00); Lymphocytes % (A) 21.6 %; Microcytosis (M) 2+; Monocytes # (A) 0.81 X 10*3/uL (0.20-1.00); Monocytes % (A) 7.7 %; Neutrophils # (A) 7.09 X 10*3/uL (1.80-7.70); Neutrophils % (A) 66.9 %
[2022-09-03] MEDS: ALPRAZolam 1 MG TAB PO SCH (10:28)
--- NOTE | 2022-09-03 10:30 | P.PN ---
Subjective Progress Note Date: 09/03/22 The patient seen at bedside and that she states that that she's doing well. Denies of any new neurological deficit. She feels she is back to baseline. Objective - Vital Signs Vital signs: Vital Signs Temp 98.0 F 09/03/22 08:51 Pulse 73 09/03/22 08:51 Resp 14 09/03/22 08:51 BP 168/78 09/03/22 08:51 Pulse Ox 96 09/03/22 08:51 FiO2 Intake & Output 09/02/22 09/03/22 09/03/22 18:59 06:59 18:59 Intake Total 476 1000 Balance 476 1000 Intake: Oral 476 1000 Other: Voiding Method External Catheter Toilet External Catheter # Voids 3 # Bowel Movements 1 - Exam GENERAL: The patient is lying in bed and is not in acute distress. NEUROLOGICAL: Higher mental function: The patient is awake, alert, oriented to self, place and time. Patient is following commands. No aphasia and no neglect. Cranial nerves: The pupils are round, equal and reactive to light and accommodation. Visual li are full to confrontation throughout. Extraocular movement is intact no nystagmus is noted. Facial sensation is normal to touch throughout. The facial strength is normal throughout. Hearing is normal bilaterally to hand rub. Tongue is midline and moved [id number] without any difficulty. No dysarthria is noted. Shoulder shrug is normal bilaterally. Motor: Gait is deferred. The strength is has spasticity in the right uppers (predominately distal) and able to raise above gravity. while right lower is 5- . Left is 5 over 5. Has spasticity over the right distal upper. Cerebellum: Normal finger to nose on left. Sensation: Sensation is normal to touch throughout. Reflexes (right/left): 1+ throughout. Plantars are upgoing bilaterally bilaterally. Some of the workup during this hospital visit consisted of: TSH is 2.02 Folate is more than 20 Vitamin B12 is 1581 CT head is reported as no acute process. Remote injury of the left basal ganglia extending into the estevez radiata are unchanged from the priors. White matter changes within the right estevez radiata also present and not significantly change. I personally could not review the CT of the head because of issues with the system. - Labs CBC & Chem 7: 09/03/22 06:04 09/03/22 06:04 Labs: Abnormal Lab Results - Last 24 Hours (Table) 09/02/22 09/02/22 09/02/22 Range/Units 11:54 12:49 12:49 WBC (4.50-10.00) X 10*3/uL RBC 3.77 L (3.80-5.40) m/uL Hgb 7.9 L (11.4-16.0) gm/dL Hct 27.9 L (34.0-46.0) % MCV 74.1 L (80.0-100.0) fL MCH 21.0 L (25.0-35.0) pg MCHC 28.4 L (31.0-37.0) g/dL RDW 16.8 H (11.5-15.5) % Carbon Dioxide 31 H (22-30) mmol/L Anion Gap (10.00-18.00) mmol/L BUN 19 H (7-17) mg/dL Creatinine 1.41 H (0.52-1.04) mg/dL Est GFR (CKD-EPI)AfAm (60.0-200.0) Est GFR (CKD-EPI)NonAf (60.0-200.0) Glucose 144 H (74-99) mg/dL POC Glucose (mg/dL) 218 H (70-110) mg/dL Total Bilirubin (0.30-1.20) mg/dL AST (13-35) U/L Alkaline Phosphatase (41-126) U/L Total Protein 5.1 L (6.3-8.2) g/dL Albumin 3.1 L (3.5-5.0) g/dL Vitamin B12 1581.0 H (200.0-944.0) pg/mL Urine Protein (Negative) Urine Glucose (UA) (Negative) Urine Bacteria (None) /hpf 09/02/22 09/02/22 09/02/22 Range/Units 17:04 19:08 23:30 WBC (4.50-10.00) X 10*3/uL RBC (3.80-5.40) m/uL Hgb (11.4-16.0) gm/dL Hct (34.0-46.0) % MCV (80.0-100.0) fL MCH (25.0-35.0) pg MCHC (31.0-37.0) g/dL RDW (11.5-15.5) % Carbon Dioxide (22-30) mmol/L Anion Gap (10.00-18.00) mmol/L BUN (7-17) mg/dL Creatinine (0.52-1.04) mg/dL Est GFR (CKD-EPI)AfAm (60.0-200.0) Est GFR (CKD-EPI)NonAf (60.0-200.0) Glucose (74-99) mg/dL POC Glucose (mg/dL) 164 H 198 H (70-110) mg/dL Total Bilirubin (0.30-1.20) mg/dL AST (13-35) U/L Alkaline Phosphatase (41-126) U/L Total Protein (6.3-8.2) g/dL Albumin (3.5-5.0) g/dL Vitamin B12 (200.0-944.0) pg/mL Urine Protein 3+ H (Negative) Urine Glucose (UA) 4+ H (Negative) Urine Bacteria Rare H (None) /hpf 09/03/22 09/03/22 09/03/22 Range/Units 06:04 06:04 08:08 WBC 10.57 H (4.50-10.00) X 10*3/uL RBC 3.62 L (3.80-5.40) m/uL Hgb 7.4 L (11.4-16.0) gm/dL Hct 26.7 L (34.0-46.0) % MCV 73.8 L (80.0-100.0) fL MCH 20.4 L (25.0-35.0) pg MCHC 27.7 L (31.0-37.0) g/dL RDW 17.4 H (11.5-15.5) % Carbon Dioxide (22-30) mmol/L Anion Gap 9.20 L (10.00-18.00) mmol/L BUN (7-17) mg/dL Creatinine (0.52-1.04) mg/dL Est GFR (CKD-EPI)AfAm 46.3 L (60.0-200.0) Est GFR (CKD-EPI)NonAf 39.9 L (60.0-200.0) Glucose 165 H (74-99) mg/dL POC Glucose (mg/dL) 170 H (70-110) mg/dL Total Bilirubin <0.15 L (0.30-1.20) mg/dL AST 12 L (13-35) U/L Alkaline Phosphatase 128 H (41-126) U/L Total Protein 5.1 L (6.3-8.2) g/dL Albumin 3.4 L (3.5-5.0) g/dL Vitamin B12 (200.0-944.0) pg/mL Urine Protein (Negative) Urine Glucose (UA) (Negative) Urine Bacteria (None) /hpf Assessment and Plan Assessment: Transient Parestehsia over the right side with syncopal episode: Rule out seizure. Paresthesia has resolved. Recurrent passing out/Syncopal episodes. Rule out cardiac arrhythmia. Also rule out seizure because of old history of stroke (which can cause cortical irritability). Had prior EEGs and was told no seizure. 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 Reported history of Multiple Sclerosis that is reported but on current CT no mention of MS lesions Diabetes Hypertension Plan: I ordered a repeat routine EEG. If negative for seizure recommend prolonged EEG as outpatient/epilepsy monitoring unit to capture those episode. She is currently on Lamictal 200mg 1 tab bid (for psych related and not seizure) but medication has anti-epileptic benefit. If EEG is negative for seizure, notified patient to consider starting Vimpat 50mg 1 tab bid as prophylaxis to assess in improvement in her passing out and if so then likely seizures but patient wants to hold off any new antiepileptic if no seizures or discharges seen. She has upcoming appointment with her neurologist for upcoming MRI Brain. Cardiology is consulted for syncope. Patient had the EKG was reported as right bundle branch block, left anterior fascicular block, sinus rhythm. Will defer the rest of medical management to the primary team. Recommend the patient follow up with her neurologist (Dr. Strange's team) as an outpatient within 1-2 weeks If EEG is negative then no further neurological work-up and patient is clear for discharge. The plan is discussed with patient and her nurse. Time with Patient: Less than 30
[2022-09-03 13:30] LABS: Glucose,Whole Blood 197 mg/dL (70-110)
[2022-09-03 14:57] VITALS: BP 117/61; PULSE 70; RESP 16; TEMP 98.5
[2022-09-03 15:22] VITALS: BMI 34.4
--- NOTE | 2022-09-03 16:56 | P.DS ---
Providers Date of admission: 09/01/22 15:47 Expected date of discharge: 09/03/22 Attending physician: Evin Sanchez Consults: 09/02/22 09:39 Consult Physician Routine Consulting Provider: Iraida Gusman Consult Reason/Comments: Syncope, abnormal EKG Do you want consulting provider notified?: Yes 09/02/22 10:02 Consult Physician Routine Consulting Provider: Joni Figueredo Consult Reason/Comments: numbness right side Do you want consulting provider notified?: Yes 09/03/22 15:13 Consult Physician Routine Consulting Provider: Yvan Saldivar Consult Reason/Comments: anemia Do you want consulting provider notified?: Yes Primary care physician: Dagmar Hennessy [facility] Course: Diagnosis on discharge: Numbness involving the right side over the body, cause is unclear, could be related to previous history of stroke, history of multiple sclerosis versus a new event, neurology consultation requested Questionable history of syncope, per ER physician patient had syncope however patient at this time is denying loss of consciousness Mild leukocytosis on presentation Will check urine analysis to rule out infectious process Anemia on presentation hemoglobin 8.1 Will monitor closely, will check stool Hemoccult blood Previous history of stroke in 2014 Underlying history of multiple sclerosis Underlying history of insulin-dependent diabetes mellitus Underlying history of hypertension Underlying history of hyperlipidemia Underlying history of depression with anxiety disorder Previous history of coronary artery disease with history of myocardial infarction in the past 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 History of nicotine dependence Anemia, HGB at the time of discharge 7.4 patient advised to stay and have GI work up however she opted to leave the hospital [facility] course: maren Birmingham a 52 year old female who presented to [facility] with a chief complaint of numbness and tingling involving the right side of the body patient states that she was sitting at her kitchen table when she started having tingling sensation involving the right side of her head which extended down to the right upper and lower extremities, patient was brought into emergency room she was evaluated by Dr. Hernandez there was a questionable history of a syncopal episode, patient was admitted to telemetry floor for further evaluation and treatment. She has a known history of stroke in 2015 with spastic paralysis in the right upper extremity patient is unable to open her fist there is also significant weakness and spasm in the right foot, patient also stated that she has a history of multiple sclerosis, she was recently admitted to [facility] in June 2022, echocardiogram and carotid Doppler were done at that time. She was evaluated in the emergency room vital examination on presentation revealed a temperature of 97.6 pulse 64 respiration 20 blood pressure 151/85 pulse ox 92% on 2 L nasal cannula Laboratory data reveals a white blood count of 10.9 hemoglobin 8.1 platelet count 266 sodium 133 potassium 3.8 BUN 19 creatinine 1.22 Testing in the emergency room revealed EKG done in the emergency room revealed sinus rhythm with right bundle branch block and left anterior fascicular block, chest x-ray revealed no acute cardiopulmonary disease, computed tomography scan of the brain revealed no acute intracranial process remote injury of the left basal ganglia extending into the estevez Portillo at the are unchanged from prior exam. Patient was admitted to medical floor for further evaluation and treatment On 09/03/2022 patient was seen and examined on the medical floor, she is alert and oriented in no distress, she is feeling better she stated right sided, input from neurology review EEG ordered results are not available yet. Patient had anemia on presentation hemoglobin was 8.1 yesterday it is down to 7.[address] Bui was initiated in that regard , she was counseled to stay and have work up done however she decided to leave the hospital AGAINST MEDICAL ADVICE. Patient Condition at Discharge: Good Plan - Discharge Summary Discharge Rx Participant: No New Discharge Prescriptions: No Action Pregabalin [Lyrica] 150 mg PO TID PRN PRN Reason: Pain lamoTRIgine 200 mg PO BID Magnesium Gluconate [Magonate] 500 mg PO HS Enalapril [Vasotec] 10 mg PO BID Aspirin [Adult Low Dose Aspirin EC] 81 mg PO HS DULoxetine HCL [Cymbalta] 60 mg PO DAILY Isosorbide Mononitrate ER [Imdur] 60 mg PO DAILY carvediloL [Coreg] 25 mg PO BID Insulin Glargine,Hum.rec.anlog [Lantus Solostar Pen] 30 unit SQ BID ARIPiprazole [Abilify] 2 mg PO DAILY ALPRAZolam [Xanax] 2 mg PO DAILY Pantoprazole Sodium [Protonix] 40 mg PO DAILY 30 Days #30 tab Insulin Lispro Protamin/Lispro [humaLOG Mix 75-25 Kwikpen] 30 unit SQ QAM metFORMIN HCL ER [Glucophage XR] 500 mg PO BID-W/MEALS Insulin Lispro Protamin/Lispro [humaLOG Mix 75-25 Kwikpen] 25 unit SQ HS Pyridoxine [Vitamin B-6] 50 mg PO DAILY 30 Days #30 tab Citalopram Hydrobromide [CeleXA] 20 mg PO DAILY Atorvastatin [Lipitor] 40 mg PO DAILY Cholecalciferol (Vitamin D3) [Vitamin D3 (125 MCG = 5,000 IU)] 125 mcg PO HS amLODIPine [Norvasc] 10 mg PO DAILY 30 Days #30 tab Discharge Medication List Pregabalin [Lyrica] 150 mg PO TID PRN 06/25/15 [History] lamoTRIgine 200 mg PO BID 07/30/16 [History] Magnesium Gluconate [Magonate] 500 mg PO HS 03/27/17 [History] Aspirin [Adult Low Dose Aspirin EC] 81 mg PO HS 11/26/17 [History] Enalapril [Vasotec] 10 mg PO BID 11/26/17 [History] DULoxetine HCL [Cymbalta] 60 mg PO DAILY 08/25/18 [History] Isosorbide Mononitrate ER [Imdur] 60 mg PO DAILY 09/08/18 [History] carvediloL [Coreg] 25 mg PO BID 01/22/19 [History] ARIPiprazole [Abilify] 2 mg PO DAILY 11/08/20 [History] Insulin Glargine,Hum.rec.anlog [Lantus Solostar Pen] 30 unit SQ BID 11/08/20 [History] ALPRAZolam [Xanax] 2 mg PO DAILY 07/31/21 [History] Atorvastatin [Lipitor] 40 mg PO DAILY 07/31/21 [History] Cholecalciferol (Vitamin D3) [Vitamin D3 (125 MCG = 5,000 IU)] 125 mcg PO HS 07/31/21 [History] amLODIPine [Norvasc] 10 mg PO DAILY 30 Days #30 tab 01/17/22 [Rx] Pantoprazole Sodium [Protonix] 40 mg PO DAILY 30 Days #30 tab 03/20/22 [Rx] Insulin Lispro Protamin/Lispro [humaLOG Mix 75-25 Kwikpen] 25 unit SQ HS 07/20/22 [History] Insulin Lispro Protamin/Lispro [humaLOG Mix 75-25 Kwikpen] 30 unit SQ QAM 07/20/22 [History] metFORMIN HCL ER [Glucophage XR] 500 mg PO BID-W/MEALS 07/20/22 [History] Pyridoxine [Vitamin B-6] 50 mg PO DAILY 30 Days #30 tab 07/22/22 [Rx] Citalopram Hydrobromide [CeleXA] 20 mg PO DAILY 09/01/22 [History] Follow up Appointment(s)/Referral(s): Dagmar Hennessy MD [Primary Care Provider] - 1 Week Discharge Disposition: Left Against Medical Advice
[2022-09-03] MEDS ORDERED: ALPRAZolam 1 MG TAB PO SCH (21:00)
[2022-09-04 00:26] LABS: % Iron Saturation 2.52 (12.00-45.00)
--- NOTE | 2022-09-04 03:35 | EEG ---
ELECTROENCEPHALOGRAM REPORT DATE OF SERVICE: 09/03/2022. CLINICAL HISTORY: This is a 52-year-old woman with a syncopal episode. The video EEG is obtained to evaluate for seizure epileptiform activity. RELEVANT MEDICATION: Lamictal. EEG TYPE: A routine-21 channel EEG is performed with video using the 10/20 electrode placement system. DESCRIPTION: Wakefulness is only obtained. During awake state, posterior-dominant rhythm consists of low to moderate voltage of 9.5 hertz activity that is well modulated and well sustained. There is no physiological sleep architecture seen. There is some sharply contoured delta slowing over the left temporal region. Interictal and ictal is none. ACTIVATION PROCEDURE: Photic stimulation did not evoke a posterior driving response. There is no abnormality during the photic stimulation. Hyperventilation is not performed. CLINICAL INTERPRETATION: This is an abnormal routine EEG. The focal slowing over the left temporal lesion is likely due to focal cerebral dysfunction. Otherwise, the background is normal and there are no epileptiform discharges or seizure on the EEG. A normal routine EEG does not exclude underlying epilepsy. Clinical correlation is recommended. MMKIMBERLYN / KRYSTALN: [id number] / MTDD
== END 2022-09-03 15:48 | disposition left against medical advice (07) ==
LOC: EC 10:59 → 6NMEDSUR 15:47
PROVIDERS: ADMIT Internal Medicine; ATTEND Internal Medicine
DX: R20.0 Anesthesia of skin (principal); R55 Syncope and collapse; D72.829 Elevated white blood cell count, unspecified; G35 Multiple sclerosis; I25.10 Atherosclerotic heart disease of native coronary artery without angina pectoris; E78.5 Hyperlipidemia, unspecified; I69.351 Hemiplegia and hemiparesis following cerebral infarction affecting right dominant side; I12.9 Hypertensive chronic kidney disease with stage 1 through stage 4 chronic kidney disease, or unspecified chronic kidney disease; N18.9 Chronic kidney disease, unspecified; D63.1 Anemia in chronic kidney disease; E11.22 Type 2 diabetes mellitus with diabetic chronic kidney disease; D68.2 Hereditary deficiency of other clotting factors; F41.8 Other specified anxiety disorders; I25.2 Old myocardial infarction; M79.7 Fibromyalgia; K21.9 Gastro-esophageal reflux disease without esophagitis; G25.81 Restless legs syndrome; G47.33 Obstructive sleep apnea (adult) (pediatric); E11.51 Type 2 diabetes mellitus with diabetic peripheral angiopathy without gangrene; F17.200 Nicotine dependence, unspecified, uncomplicated; Z85.43 Personal history of malignant neoplasm of ovary; Z85.42 Personal history of malignant neoplasm of other parts of uterus; Z85.41 Personal history of malignant neoplasm of cervix uteri; Z86.718 Personal history of other venous thrombosis and embolism; Z95.5 Presence of coronary angioplasty implant and graft; Z53.29 Procedure and treatment not carried out because of patient's decision for other reasons; Z83.3 Family history of diabetes mellitus; Z82.49 Family history of ischemic heart disease and other diseases of the circulatory system; Z82.5 Family history of asthma and other chronic lower respiratory diseases; Z79.899 Other long term (current) drug therapy; Z79.82 Long term (current) use of aspirin; Z79.4 Long term (current) use of insulin; Z79.84 Long term (current) use of oral hypoglycemic drugs; Z88.2 Allergy status to sulfonamides
CPT/HCPCS: 96372 ×3; 99285; 36415; 95816; 80053 ×3; 84443; 82607; 82746; 83540; 83550; 83735; 84484; 85025 ×3; 81001; 71045; 70450; G0378 ×3; J1650 ×2

== ENCOUNTER 2022-10-06 13:37 | Observation (INO) | payer OTHER ==
[2022-10-06 13:50] LABS: Glucose,Whole Blood 233 mg/dL (70-110)
[2022-10-06] MEDS ORDERED: SODIUM CHLORIDE 0.9% 1,000 ML IV ONE (13:53)
--- NOTE | 2022-10-06 14:29 | CT ---
EXAMINATION TYPE: CT brain wo con CT DLP: 1178.4 mGycm, Automated exposure control for dose reduction was used. DATE OF EXAM: 10/06/2022 2:14 PM COMPARISON: CT head 09/01/2022. CLINICAL INDICATION:Female, 52 years old with history of Altered mental status, ams and lethargy TECHNIQUE: Brain: Axial CT images of the brain were obtained with coronal and sagittal reformats created and rev iewed. Contrast used: None. Oral contrast used: None. FINDINGS: Brain: Extra-axial spaces: No abnormal extra-axial fluid collections. Ventricular system: Within normal limits Cerebral parenchyma: Cerebral atrophy. No acute intraparenchymal hemorrhage or mass effect. Redemonst ration of remote injuries in the left basal ganglia and estevez radiata. The cortez-white junction is we ll differentiated. Scattered hypoattenuating areas are seen within the white matter. Cerebellum: Unremarkable. Mass effect: No evidence of midline shift. Intracranial vasculature: Atherosclerotic calcifications of the intracranial vessels. Soft tissues: Normal. Calvarium/osseous structures: No depressed skull fracture. Paranasal sinuses and mastoid air cells: Mild scattered paranasal sinus disease. Visualized orbits: Orbital contents are intact. IMPRESSION: 1. No acute intracranial process. 2. Remote injuries in the left basal ganglia and estevez radiata which are unchanged from prior. 3. Nonspecific white matter changes which are likely related to microangiopathy.
--- NOTE | 2022-10-06 14:32 | ED ---
General Adult HPI - General Chief complaint: Syncope Stated complaint: Light headed and nausea, hypertension Time Seen by Provider: 10/06/22 13:52 Source: EMS, RN notes reviewed, old records reviewed Mode of arrival: EMS Limitations: no limitations - History of Present Illness Initial comments: Patient is a 52-year-old female with past medical history remarkable for MS, recurrent syncopal episodes, fibromyalgia, hypertension, prior CVAs with residual right-sided weakness, prior MIs who presents emergency Department after having syncopal episodes at home once again. Was seen last month for similar complaints. She is been seen here multiple times this year for similar complaints. Per patient's and per patient, workup has been relatively unremarkable except for "abnormal EEG." She is receiving outpatient workup for this. 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 She states she was sitting at the couch and her called 911. She was in was because of an elevated blood pressure with systolics in the 150s. Patient states she did not take her medications today. Has been somewhat more tired throughout the day today. The patient's arrived, he states that the patient "passed out" multiple times at home. For minutes at a time. States he would shake her shoulder to try to awaken her Shortly after this, patient did have a "passing out episode" however she immediately responded to sternal rubbing. Patient's and patient are uncertain what is causing the episodes. She presents today for further evaluation at this time. Denies any trauma. Denies any headache. Denies any blurry vision. Denies any new weakness or sensory deficits. Denies any chest pain, shortness of breath, abdominal pain, nausea, vomiting. His no other acute complaints at this time. - Related Data Home Medications Medication Instructions Recorded Confirmed Pregabalin [Lyrica] 150 mg PO TID PRN 06/25/15 09/01/22 lamoTRIgine 200 mg PO BID 07/30/16 09/01/22 Magnesium Gluconate [Magonate] 500 mg PO HS 03/27/17 09/01/22 Aspirin [Adult Low Dose Aspirin EC] 81 mg PO HS 11/26/17 09/01/22 Enalapril [Vasotec] 10 mg PO BID 11/26/17 09/01/22 DULoxetine HCL [Cymbalta] 60 mg PO DAILY 08/25/18 09/01/22 Isosorbide Mononitrate ER [Imdur] 60 mg PO DAILY 09/08/18 09/01/22 carvediloL [Coreg] 25 mg PO BID 01/22/19 09/01/22 ARIPiprazole [Abilify] 2 mg PO DAILY 11/08/20 09/01/22 Insulin Glargine,Hum.rec.anlog 30 unit SQ BID 11/08/20 09/01/22 [Lantus Solostar Pen] ALPRAZolam [Xanax] 2 mg PO DAILY 07/31/21 09/01/22 Atorvastatin [Lipitor] 40 mg PO DAILY 07/31/21 09/01/22 Cholecalciferol (Vitamin D3) 125 mcg PO HS 07/31/21 09/01/22 [Vitamin D3 (125 MCG = 5,000 IU)] Insulin Lispro Protamin/Lispro 25 unit SQ HS 07/20/22 09/01/22 [humaLOG Mix 75-25 Kwikpen] Insulin Lispro Protamin/Lispro 30 unit SQ QAM 07/20/22 09/01/22 [humaLOG Mix 75-25 Kwikpen] metFORMIN HCL ER [Glucophage XR] 500 mg PO BID-W/MEALS 07/20/22 09/01/22 Citalopram Hydrobromide [CeleXA] 20 mg PO DAILY 09/01/22 09/01/22 Previous Rx's Medication Instructions Recorded amLODIPine [Norvasc] 10 mg PO DAILY 30 Days #30 tab 01/17/22 Pantoprazole Sodium [Protonix] 40 mg PO DAILY 30 Days #30 tab 03/20/22 Pyridoxine [Vitamin B-6] 50 mg PO DAILY 30 Days #30 tab 07/22/22 Allergies Allergy/AdvReac Type Severity Reaction Status Date / Time Fish Containing Products Allergy Anaphylaxis Verified 09/01/22 16:23 Iodinated Contrast Media Allergy Anaphylaxis Verified 09/01/22 16:23 [Iodinated Contrast Media - IV Dye] Sulfa (Sulfonamide Allergy Anaphylaxis Verified 09/01/22 16:23 Antibiotics) sulfamethoxazole Allergy Anaphylaxis Verified 09/01/22 16:23 [From Septra] tree nut [Nut] Allergy Anaphylaxis Verified 09/01/22 16:23 trimethoprim [From Sept] Allergy Anaphylaxis Verified 09/01/22 16:23 Review of Systems ROS Statement: Those systems with pertinent positive or pertinent negative responses have been documented in the HPI. Review of Systems: CONST: Denies fever EYES: Denies blurry vision ENT: Denies nasal congestion C/V: Denies Chest pain RESP: Denies shortness of breath GI: Denies abdominal pain : Denies dysuria SKIN: Denies rash. MSK: Denies joint pain. NEURO: Endorses generalized weakness. ROS Other: All systems not noted in ROS Statement are negative. 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 Last Myocardial Infarction Date:: Pt thinks 2015 History of Any Multi-Drug Resistant Organisms: None Reported Past Surgical History: Section, Cholecystectomy, Heart Catheterization With Stent, Hysterectomy, Tubal Ligation, Uterine Ablation Additional Past Surgical History / Comment(s): vein stripping right leg, radio frequency ablation of right back-02/22/2015, four stents on 04/03/16 and one on march 05, ovaries removed, colonscopy- polyp removal Past Anesthesia/Blood Transfusion Reactions: Motion Sickness Additional Past Anesthesia/Blood Transfusion Reaction / Comment(s): mild claustrophobia Date of Last Stent Placement:: 04/03/16 Past Psychological History: Anxiety, Depression Smoking Status: Current every day smoker Past Alcohol Use History: None Reported Past Drug Use History: None Reported - Past Family History Father Family Medical History: Congestive Heart Failure (CHF), Coronary Artery Disease (CAD), Diabetes Mellitus Mother Family Medical History: Cancer, COPD, Hypertension, Respiratory Disorder Additional Family Medical History / Comment(s): emphysema, colon CA General Exam - General Exam Comments Initial Comments: General: Appears tired, but in no acute distress. HEAD: Normal with no signs of head trauma. EYES: PERRLA, EOMI, conjunctiva normal, no discharge. Pupils are 2 mm and equal bilaterally. ENT: Hearing grossly intact, normal oropharynx. Mildly dry mucous membranes. RESPIRATORY: Clear breath sounds bilaterally. No wheezes, rales, or rhonchi. C/V: Regular rate and rhythm. S1 and S2 auscultated, no edema, peripheral pulses 2+ and intact throughout ABD: Abd is soft, nontender, nondistended EXT: Chronic right-sided weakness. Spastic paralysis of the right upper extr emity. No acute obvious deformities. SKIN: No rashes or lesions observed on exposed skin. NEURO: Alert and oriented 4. Cranial nerves II through XII are intact. No acute focal deficits. 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 NIH is 0 for new symptoms. GCS of 15. During the exam, patient will nod off but is easily arousable. Limitations: no limitations Course Vital Signs 10/06/22 13:40 Temperature 97.8 F Pulse Rate 65 Respiratory 16 Rate Blood Pressure 184/82 O2 Sat by Pulse 95 Oximetry Medical Decision Making - Medical Decision Making Based on the patient's presentation and physical exam, she is a 52-year-old female residing with somewhat acute on chronic complaints. She is having recurrent syncopal episodes again today. She is been feeling more tired and weak over the last few days. Does have a history of MS. Unknown etiology of her episodes. Has received neuro workup previously here for similar complaints. No acute neuro deficits. We will repeat altered mental status workup at this time clinically CT brain. Vital signs within acceptable limits except for mild hypertension. Patient was in agreement with this plan. Patient's was in agreement this plan. She'll be given a 1 L fluid bolus. She has no other complaints at this time. EKG revealed no evidence of acute ischemia. Chest x-ray as interpreted by myself reveals no acute cardiopulmonary process, no infiltrate. CT brain is interpreted by myself reveals no evidence of acute intracranial hemorrhage, mass effect, midline shift. Radiology does note chronic findings from prior stroke in the left basal ganglia and current radiata. No other findings. Laboratory studies returned and were remarkable for a chronic microcytic anemia with a hemoglobin of 9.7, patient is a mild hyperkalemia 5.2 with no EKG changes with a mild AK eye with an elevated BUN of 28 and creatinine of 1.43. Troponin is undetectable. UDS is positive for benzos." The labs are within acceptable limits. I updated the patient as well as her . She is somewhat more alert now but still somewhat weak and tired. As stated above, pneumonia focal deficits. I did discuss with him that I would like her to be admitted for further observation until she is back to her baseline. They were in agreement this plan. We will continue IV fluid hydration. We'll consult neurology to evaluate the patient. They were in agreement this plan. I spoke with the admitting physician, Dr. Sanchez who accepted the patient. - Lab Data Result diagrams: 10/06/22 14:19 10/06/22 14:19 Lab Results 10/06/22 10/06/22 10/06/22 Range/Units 13:48 14:19 14:19 WBC 9.3 (3.8-10.6) k/uL RBC 4.51 (3.80-5.40) m/uL Hgb 9.7 L D (11.4-16.0) gm/dL Hct 33.1 L (34.0-46.0) % MCV 73.2 L (80.0-100.0) fL MCH 21.5 L (25.0-35.0) pg MCHC 29.4 L (31.0-37.0) g/dL RDW 18.3 H (11.5-15.5) % Plt Count 245 (150-450) k/uL MPV 9.4 Neutrophils % 69 % Lymphocytes % 23 % Monocytes % 4 % Eosinophils % 2 % Basophils % 1 % Neutrophils # 6.4 (1.3-7.7) k/uL Lymphocytes # 2.1 (1.0-4.8) k/uL Monocytes # 0.3 (0-1.0) k/uL Eosinophils # 0.2 (0-0.7) k/uL Basophils # 0.1 (0-0.2) k/uL Hypochromasia Marked Poikilocytosis Slight Anisocytosis Slight Microcytosis Moderate PT 10.7 (9.0-12.0) sec INR 1.0 (<1.2) APTT 26.9 (22.0-30.0) sec Sodium (137-145) mmol/L Potassium (3.5-5.1) mmol/L Chloride (98-107) mmol/L Carbon Dioxide (22-30) mmol/L Anion Gap mmol/L BUN (7-17) mg/dL Creatinine (0.52-1.04) mg/dL Est GFR (CKD-EPI)AfAm (>60 ml/min/1.73 sqM) Est GFR (CKD-EPI)NonAf (>60 ml/min/1.73 sqM) Glucose (74-99) mg/dL POC Glucose (mg/dL) 233 H (70-110) mg/dL POC Glu Corset Fitter ID Nelia Uriostegui Calcium (8.4-10.2) mg/dL Total Bilirubin (0.2-1.3) mg/dL AST (14-36) U/L ALT (4-34) U/L Alkaline Phosphatase (38-126) U/L Ammonia (<30) umol/L Troponin I (0.000-0.034) ng/mL Total Protein (6.3-8.2) g/dL Albumin (3.5-5.0) g/dL Urine Color Urine Appearance (Clear) Urine pH (5.0-8.0) Ur Specific [place] (1.001-1.035) Urine Protein (Negative) Urine Glucose (UA) (Negative) Urine Ketones (Negative) Urine Blood (Negative) Urine Nitrite (Negative) Urine Bilirubin (Negative) Urine Urobilinogen (<2.0) mg/dL Ur Leukocyte Esterase (Negative) Urine RBC (0-5) /hpf Urine WBC (0-5) /hpf Ur Squamous Epith Cells (0-4) /hpf Urine Bacteria (None) /hpf Urine Opiates Screen (NotDetected) Ur Oxycodone Screen (NotDetected) Urine Methadone Screen (NotDetected) Ur Propoxyphene Screen (NotDetected) Ur Barbiturates Screen (NotDetected) U Tricyclic Antidepress (NotDetected) Ur Phencyclidine Scrn (NotDetected) Ur Amphetamines Screen (NotDetected) U Methamphetamines Scrn (NotDetected) U Benzodiazepines Scrn (NotDetected) Urine Cocaine Screen (NotDetected) U Marijuana (THC) Screen (NotDetected) Serum Alcohol mg/dL 10/06/22 10/06/22 10/06/22 Range/Units 14:19 14:19 14:19 WBC (3.8-10.6) k/uL RBC (3.80-5.40) m/uL Hgb (11.4-16.0) gm/dL Hct (34.0-46.0) % MCV (80.0-100.0) fL MCH (25.0-35.0) pg MCHC (31.0-37.0) g/dL RDW (11.5-15.5) % Plt Count (150-450) k/uL MPV Neutrophils % % Lymphocytes % % Monocytes % % Eosinophils % % Basophils % % Neutrophils # (1.3-7.7) k/uL Lymphocytes # (1.0-4.8) k/uL Monocytes # (0-1.0) k/uL Eosinophils # (0-0.7) k/uL Basophils # (0-0.2) k/uL Hypochromasia Poikilocytosis Anisocytosis Microcytosis PT (9.0-12.0) sec INR (<1.2) APTT (22.0-30.0) sec Sodium 136 L (137-145) mmol/L Potassium 5.2 H (3.5-5.1) mmol/L Chloride 106 (98-107) mmol/L Carbon Dioxide 22 (22-30) mmol/L Anion Gap 8 mmol/L BUN 28 H (7-17) mg/dL Creatinine 1.43 H (0.52-1.04) mg/dL Est GFR (CKD-EPI)AfAm 49 (>60 ml/min/1.73 sqM) Est GFR (CKD-EPI)NonAf 43 (>60 ml/min/1.73 sqM) Glucose 213 H (74-99) mg/dL POC Glucose (mg/dL) (70-110) mg/dL POC Glu Corset Fitter ID Calcium 9.5 (8.4-10.2) mg/dL Total Bilirubin 0.2 (0.2-1.3) mg/dL AST 20 (14-36) U/L ALT 18 (4-34) U/L Alkaline Phosphatase 133 H (38-126) U/L Ammonia <9 (<30) umol/L Troponin I (0.000-0.034) ng/mL Total Protein 5.9 L (6.3-8.2) g/dL Albumin 3.5 (3.5-5.0) g/dL Urine Color Colorless Urine Appearance Clear (Clear) Urine pH 6.0 (5.0-8.0) Ur Specific [place] 1.006 (1.001-1.035) Urine Protein 2+ H (Negative) Urine Glucose (UA) 2+ H (Negative) Urine Ketones Negative (Negative) Urine Blood Negative (Negative) Urine Nitrite Negative (Negative) Urine Bilirubin Negative (Negative) Urine Urobilinogen <2.0 (<2.0) mg/dL Ur Leukocyte Esterase Negative (Negative) Urine RBC <1 (0-5) /hpf Urine WBC <1 (0-5) /hpf Ur Squamous Epith Cells <1 (0-4) /hpf Urine Bacteria Rare H (None) /hpf Urine Opiates Screen Not Detected (NotDetected) Ur Oxycodone Screen Not Detected (NotDetected) Urine Methadone Screen Not Detected (NotDetected) Ur Propoxyphene Screen Not Detected (NotDetected) Ur Barbiturates Screen Not Detected (NotDetected) U Tricyclic Antidepress Not Detected (NotDetected) Ur Phencyclidine Scrn Not Detected (NotDetected) Ur Amphetamines Screen Not Detected (NotDetected) U Methamphetamines Scrn Not Detected (NotDetected) U Benzodiazepines Scrn Detected H (NotDetected) Urine Cocaine Screen Not Detected (NotDetected) U Marijuana (THC) Screen Not Detected (NotDetected) Serum Alcohol <10 mg/dL 10/06/22 Range/Units 14:19 WBC (3.8-10.6) k/uL RBC (3.80-5.40) m/uL Hgb (11.4-16.0) gm/dL Hct (34.0-46.0) % MCV (80.0-100.0) fL MCH (25.0-35.0) pg MCHC (31.0-37.0) g/dL RDW (11.5-15.5) % Plt Count (150-450) k/uL MPV Neutrophils % % Lymphocytes % % Monocytes % % Eosinophils % % Basophils % % Neutrophils # (1.3-7.7) k/uL Lymphocytes # (1.0-4.8) k/uL Monocytes # (0-1.0) k/uL Eosinophils # (0-0.7) k/uL Basophils # (0-0.2) k/uL Hypochromasia Poikilocytosis Anisocytosis Microcytosis PT (9.0-12.0) sec INR (<1.2) APTT (22.0-30.0) sec Sodium (137-145) mmol/L Potassium (3.5-5.1) mmol/L Chloride (98-107) mmol/L Carbon Dioxide (22-30) mmol/L Anion Gap mmol/L BUN (7-17) mg/dL Creatinine (0.52-1.04) mg/dL Est GFR (CKD-EPI)AfAm (>60 ml/min/1.73 sqM) Est GFR (CKD-EPI)NonAf (>60 ml/min/1.73 sqM) Glucose (74-99) mg/dL POC Glucose (mg/dL) (70-110) mg/dL POC Glu Corset Fitter ID Calcium (8.4-10.2) mg/dL Total Bilirubin (0.2-1.3) mg/dL AST (14-36) U/L ALT (4-34) U/L Alkaline Phosphatase (38-126) U/L Ammonia (<30) umol/L Troponin I <0.012 (0.000-0.034) ng/mL Total Protein (6.3-8.2) g/dL Albumin (3.5-5.0) g/dL Urine Color Urine Appearance (Clear) Urine pH (5.0-8.0) Ur Specific [place] (1.001-1.035) Urine Protein (Negative) Urine Glucose (UA) (Negative) Urine Ketones (Negative) Urine Blood (Negative) Urine Nitrite (Negative) Urine Bilirubin (Negative) Urine Urobilinogen (<2.0) mg/dL Ur Leukocyte Esterase (Negative) Urine RBC (0-5) /hpf Urine WBC (0-5) /hpf Ur Squamous Epith Cells (0-4) /hpf Urine Bacteria (None) /hpf Urine Opiates Screen (NotDetected) Ur Oxycodone Screen (NotDetected) Urine Methadone Screen (NotDetected) Ur Propoxyphene Screen (NotDetected) Ur Barbiturates Screen (NotDetected) U Tricyclic Antidepress (NotDetected) Ur Phencyclidine Scrn (NotDetected) Ur Amphetamines Screen (NotDetected) U Methamphetamines Scrn (NotDetected) U Benzodiazepines Scrn (NotDetected) Urine Cocaine Screen (NotDetected) U Marijuana (THC) Screen (NotDetected) Serum Alcohol mg/dL - EKG Data -: EKG Interpreted by Me EKG Comments: 12-lead Electrocardiogram Interpretation Note EKG was reviewed and interpreted by myself. 12-lead ECG performed at 1357 is interpreted by me as revealing normal sinus rhythm with a right bundle branch block. At a rate of 65 beats per minute. Left axis deviation. IN interval is 139 ms, QRS durations 165 ms, QTc is 460 ms.. There were no ST or T wave abnormalities to suggest myocardial ischemia or injury. R wave progression across the precordium was satisfactory. By my interpretation this EKG is non- diagnostic for acute ischemia. When compared with EKG from 09/01/2022, no significant change. Disposition Clinical Impression: Weakness, Dehydration Disposition: ADMITTED IP TO THIS HOSP Condition: Stable Is patient prescribed a controlled substance at d/c from ED?: No Referrals: Dagmar Hennessy MD [Primary Care Provider] - 1-2 days Time of Disposition: 15:35
--- NOTE | 2022-10-06 14:32 | XR ---
EXAMINATION TYPE: XR chest 2V DATE OF EXAM: 10/06/2022 2:24 PM COMPARISON: Chest x-ray 09/01/2022 TECHNIQUE: XR chest 2V . CLINICAL INDICATION:Female, 52 years old with history of altered mental status; FINDINGS: Lungs/Pleura: There is no evidence of pleural effusion, focal consolidation, or pneumothorax. Pulmonary vascularity: Unremarkable. Heart/mediastinum: Cardiomediastinal silhouette is unremarkable. Musculoskeletal: Multiple level degenerative disc disease changes seen throughout the spine. IMPRESSION: No acute cardiopulmonary disease/process.
[2022-10-06 14:54] LABS: Anisocytosis Slight; Basophils # (A) 0.1 k/uL (0-0.2); Basophils % (A) 1 %; Eosinophils # (A) 0.2 k/uL (0-0.7); Eosinophils % (A) 2 %; HCT 33.1 % (34.0-46.0); Hypochromasia Marked; Lymphocytes # (A) 2.1 k/uL (1.0-4.8); Lymphocytes % (A) 23 %; MCH 21.5 pg (25.0-35.0); MCHC 29.4 g/dL (31.0-37.0); MCV 73.2 fL (80.0-100.0); Mean Platelet Volume 9.4; Microcytosis Moderate; Monocytes # (A) 0.3 k/uL (0-1.0); Monocytes % (A) 4 %; Neutrophils # (A) 6.4 k/uL (1.3-7.7); Neutrophils % (A) 69 %; Platelet Count 245 k/uL (150-450); Poikilocytosis Slight; RBC 4.51 m/uL (3.80-5.40); RDW 18.3 % (11.5-15.5); WBC 9.3 k/uL (3.8-10.6)
[2022-10-06 15:00] LABS: HGB 9.7 gm/dL (11.4-16.0)
[2022-10-06 15:04] LABS: Partial Thromboplastin Time 26.9 sec (22.0-30.0); Prothrombin Time 10.7 sec (9.0-12.0)
[2022-10-06 15:07] LABS: ALT 18 U/L (4-34); AST 20 U/L (14-36); African American GFR (CKD) 49 (>60 ml/min/1.73 sqM); Albumin 3.5 g/dL (3.5-5.0); Alcohol <10 mg/dL; Alkaline Phosphatase 133 U/L (38-126); Anion Gap 8 mmol/L; Blood Urea Nitrogen 28 mg/dL (7-17); Calcium 9.5 mg/dL (8.4-10.2); Carbon Dioxide 22 mmol/L (22-30); Chloride 106 mmol/L (98-107); Glucose 213 mg/dL (74-99); Non-African American GFR(CKD) 43 (>60 ml/min/1.73 sqM); Potassium 5.2 mmol/L (3.5-5.1); Sodium 136 mmol/L (137-145); Total Bilirubin 0.2 mg/dL (0.2-1.3); Total Protein 5.9 g/dL (6.3-8.2)
[2022-10-06 15:43] LABS: Appearance,Urine Clear (Clear); Bacteria,Urine Rare /hpf; Bilirubin,Urine Negative (Negative); Blood,Urine Negative (Negative); Color,Urine Colorless; Glucose,Urine (UA) 2+ (Negative); Ketones,Urine Negative (Negative); Leukocyte Esterase,Urine Negative (Negative); Nitrite,Urine Negative (Negative); Protein,Urine 2+ (Negative); RBC,Urine <1 /hpf (0-5); Specific Gravity,Urine 1.006 (1.001-1.035); Squamous Epithelial Cell,Urine <1 /hpf (0-4); Urobilinogen,Urine <2.0 mg/dL (<2.0); WBC,Urine <1 /hpf (0-5)
[2022-10-06 15:50] LABS: Amphetamine Screen,Urine Not Detected (NotDetected); Barbiturate Screen,Urine Not Detected (NotDetected); Benzodiazepines Screen,Urine Detected (NotDetected); Cocaine Screen,Urine Not Detected (NotDetected); Methadone Screen, Urine Not Detected (NotDetected); Opiate Screen,Urine Not Detected (NotDetected); Oxycodone Screen, Urine Not Detected (NotDetected); Phencyclidine Screen,Urine Not Detected (NotDetected); Tricyclic Antidepressant,Urine Not Detected (NotDetected); Urn Cannabinoid Scrn Not Detected (NotDetected)
[2022-10-06] MEDS ORDERED: NALOXONE 0.4 MG/ML 1 ML VIAL IV PRN (15:52)
[2022-10-06] MEDS: HEPARIN SODIUM,PORCINE/PF 5,000 UNIT/0.5 ML SYRINGE SQ SCH ×2 (16:21→20:52)
[2022-10-06] MEDS: SODIUM CHLORIDE 0.9% 1,000 ML IV SCH (16:21)
[2022-10-06 17:27] LABS: Glucose,Whole Blood 156 mg/dL (70-110)
[2022-10-06] MEDS ORDERED: hydrALAZINE HCL 20 MG/ML 1 ML VIAL IVP PRN (18:49)
[2022-10-06] MEDS ORDERED: DEXTROSE 50% SYRINGE 50 ML IVP PRN ×2 (18:51)
[2022-10-06] MEDS ORDERED: ALBUTEROL NEBULIZED 2.5 MG/3 ML INHALATION PRN (18:53)
[2022-10-06] MEDS ORDERED: ONDANSETRON ODT 8 MG TAB.RAPDIS PO PRN (18:53)
[2022-10-06] MEDS ORDERED: PROMETHAZINE 25 MG TAB PO PRN (18:53)
[2022-10-06] MEDS: CHOLECALCIFEROL 125 MCG (5000 IU) TABLET PO SCH (20:27)
[2022-10-06] MEDS: MAGNESIUM OXIDE 400 MG TAB PO SCH (20:27)
[2022-10-06] MEDS: ALPRAZolam 1 MG TAB PO SCH (20:27)
[2022-10-06] MEDS: lamoTRIgine 100 MG TAB PO SCH (20:28)
[2022-10-06] MEDS: DULoxetine HCL 60 MG CAPSULE.DR PO SCH (20:28)
[2022-10-06] MEDS: carvediloL 12.5 MG TAB PO SCH (20:28)
[2022-10-06] MEDS: ASPIRIN 81 MG PO SCH (20:28)
[2022-10-06] MEDS: CITALOPRAM HYDROBROMIDE 20 MG TAB PO SCH (20:28)
[2022-10-06] MEDS: amLODIPine 10 MG TAB PO SCH (20:28)
[2022-10-06] MEDS: PREGABALIN 75 MG CAP PO SCH (20:28)
[2022-10-06] MEDS: FOLIC ACID 1 MG TAB PO SCH (20:29)
[2022-10-06] MEDS: ATORVASTATIN 40 MG TAB PO SCH (20:38)
[2022-10-06 20:40] LABS: Glucose,Whole Blood 281 mg/dL (70-110)
[2022-10-06] MEDS: INSULIN DETEMIR (LEVEMIR) 100 UNIT/ML SYR SQ SCH (20:46)
[2022-10-06] MEDS: ARIPiprazole 2 MG TAB PO SCH (20:47)
[2022-10-06] MEDS: ISOSORBIDE MONONITRATE ER 60 MG TAB.ER.24H PO SCH (20:47)
[2022-10-06] MEDS: INSULIN ASPART (NovoLOG) 100 UNIT/ML VIAL SQ SCH (20:47)
[2022-10-06] MEDS: DAPAGLIFLOZIN PROPANEDIOL 5 MG TABLET PO SCH (20:47)
[2022-10-07] MEDS: SODIUM CHLORIDE 0.9% 1,000 ML IV SCH ×3 (02:19→21:08)
[2022-10-07] MEDS: INSULIN ASPART (NovoLOG) 100 UNIT/ML VIAL SQ SCH ×4 (06:00→21:07)
[2022-10-07] MEDS: carvediloL 12.5 MG TAB PO SCH ×2 (06:01→17:50)
[2022-10-07] MEDS: PANTOPRAZOLE 40 MG TABLET PO SCH (06:01)
[2022-10-07 06:02] LABS: Glucose,Whole Blood 125 mg/dL (70-110)
--- NOTE | 2022-10-07 08:15 | P.HPIM ---
History of Present Illness H&P Date: 10/07/22 Leticia Langley, is a 52-year-old female who presented to [facility] emergency room with a chief complaint of syncopal episode and generalized weakness She was evaluated in the emergency room vital examination on presentation revealed a temperature of 97.8 pulse 65 respiration 16 blood pressure 184/82 pulse ox 95% on room air Laboratory data revealed a white blood count of 9.3 hemoglobin 9.7 platelet count 245 sodium 136 potassium 5.2 BUN 28 creatinine 1.43 urine analysis showed no evidence of urinary tract infection, toxicology screen was positive for benzodiazepine, otherwise negative and serum alcohol was less than 10 Testing in the emergency room revealed computed tomography scan of the brain done in the emergency room without contrast revealed no acute intracranial process, remote injuries in the left basal ganglia and estevez Radiata unchanged from before, and nonspecific white matter changes. EKG revealed sinus rhythm with right bundle branch block and left anterior fascicular block. 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 Last Myocardial Infarction Date:: Pt thinks 2015 History of Any Multi-Drug Resistant Organisms: None Reported Past Surgical History: Section, Cholecystectomy, Heart Catheterization With Stent, Hysterectomy, Tubal Ligation, Uterine Ablation Additional Past Surgical History / Comment(s): vein stripping right leg, radio frequency ablation of right back-02/22/2015, four stents on 04/03/16 and one on march 05, ovaries removed, colonscopy- polyp removal Past Anesthesia/Blood Transfusion Reactions: Motion Sickness Additional Past Anesthesia/Blood Transfusion Reaction / Comment(s): mild claustrophobia Date of Last Stent Placement:: 04/03/16 Past Psychological History: Anxiety, Depression Additional Psychological History / Comment(s): Pt resides with her spouse. She is mostly in her wheelchair. She has a walker and cane. She has a dexcom. Her spouse assists her with her medication organization. Spouse also drives pt. Smoking Status: Current every day smoker Past Alcohol Use History: None Reported Additional Past Alcohol Use History / Comment(s): Pt started smoking in 1988 and is alittle less than a ppd smoker. Past Drug Use History: None Reported - Past Family History Father Family Medical History: Congestive Heart Failure (CHF), Coronary Artery Disease (CAD), Diabetes Mellitus Mother Family Medical History: Cancer, COPD, Hypertension, Respiratory Disorder Additional Family Medical History / Comment(s): emphysema, colon CA Medications and Allergies Home Medications Medication Instructions Recorded Confirmed Type Pregabalin [Lyrica] 150 mg PO BID 06/25/15 10/06/22 History lamoTRIgine 200 mg PO BID 07/30/16 10/06/22 History Magnesium Gluconate [Magonate] 500 mg PO HS 03/27/17 10/06/22 History Aspirin [Adult Low Dose Aspirin EC] 81 mg PO HS 11/26/17 10/06/22 History Enalapril [Vasotec] 10 mg PO BID 11/26/17 10/06/22 History DULoxetine HCL [Cymbalta] 60 mg PO DAILY 08/25/18 10/06/22 History Isosorbide Mononitrate ER [Imdur] 60 mg PO DAILY 09/08/18 10/06/22 History carvediloL [Coreg] 25 mg PO BID 01/22/19 10/06/22 History ARIPiprazole [Abilify] 2 mg PO DAILY 11/08/20 10/06/22 History Insulin Glargine,Hum.rec.anlog 30 unit SQ BID 11/08/20 10/06/22 History [Lantus Solostar Pen] ALPRAZolam [Xanax] 2 mg PO DAILY 07/31/21 10/06/22 History Atorvastatin [Lipitor] 40 mg PO DAILY 07/31/21 10/06/22 History Cholecalciferol (Vitamin D3) 125 mcg PO HS 07/31/21 10/06/22 History [Vitamin D3 (125 MCG = 5,000 IU)] amLODIPine [Norvasc] 10 mg PO DAILY 30 Days #30 tab 01/17/22 10/06/22 Rx Pantoprazole Sodium [Protonix] 40 mg PO DAILY 30 Days #30 tab 03/20/22 10/06/22 Rx Insulin Lispro Protamin/Lispro 25 unit SQ HS 07/20/22 10/06/22 History [humaLOG Mix 75-25 Kwikpen] Insulin Lispro Protamin/Lispro 30 unit SQ DAILY 07/20/22 10/06/22 History [humaLOG Mix 75-25 Kwikpen] Citalopram Hydrobromide [CeleXA] 20 mg PO DAILY 09/01/22 10/06/22 History Albuterol Nebulized [Ventolin 2.5 mg INHALATION RT-QID PRN 10/06/22 10/06/22 History Nebulized] Empagliflozin [Jardiance] 10 mg PO DAILY 10/06/22 10/06/22 History Famotidine 20 mg PO DAILY 10/06/22 10/06/22 History Folic Acid 1.6 mg PO HS 10/06/22 10/06/22 History Nitroglycerin Sl Tabs [Nitrostat] 0.4 mg SL Q5M PRN 10/06/22 10/06/22 History Ondansetron Odt [Zofran Odt] 8 mg PO TID PRN 10/06/22 10/06/22 History Pioglitazone [Actos] 15 mg PO DAILY 10/06/22 10/06/22 History Promethazine [Phenergan] 25 mg PO Q6H PRN 10/06/22 10/06/22 History Vitamin B Complex 1 cap PO DAILY 10/06/22 10/06/22 History Allergies Allergy/AdvReac Type Severity Reaction Status Date / Time Fish Containing Products Allergy Anaphylaxis Verified 10/06/22 17:05 Iodinated Contrast Media Allergy Anaphylaxis Verified 10/06/22 17:05 [Iodinated Contrast Media - IV Dye] Sulfa (Sulfonamide Allergy Anaphylaxis Verified 10/06/22 17:05 Antibiotics) sulfamethoxazole Allergy Anaphylaxis Verified 10/06/22 17:05 [From Junra] tree nut [Nut] Allergy Anaphylaxis Verified 10/06/22 17:05 trimethoprim [From Junra] Allergy Anaphylaxis Verified 10/06/22 17:05 Physical Exam Vitals: Vital Signs Temp Pulse Pulse Resp BP BP Pulse Ox 10/07/22 02:31 98.6 F 67 16 151/65 95 10/06/22 20:40 98.1 F 71 17 155/72 94 L 10/06/22 19:44 97 10/06/22 16:43 98.0 F 67 18 189/79 98 10/06/22 16:00 98.2 F 64 18 156/75 98 10/06/22 15:00 18 179/74 96 10/06/22 14:00 16 184/82 95 10/06/22 13:50 16 184/80 96 10/06/22 13:40 97.8 F 65 16 184/82 95 Intake and Output 10/06/22 10/07/22 10/07/22 22:59 06:59 14:59 Other: # Voids 1 1 Weight 89.358 kg In general patient is alert and oriented x 3 in no distress HEENT head normocephalic and atraumatic Neck is supple no JVD no goiter no lymphadenopathy no carotid bruit Chest examination is clear to auscultation no crackles no wheezing Cardiac exam reveals regular heart sounds S1 and S2 no gallops no murmurs Abdomen is soft nontender no organomegaly with normal bowel sounds Extremity exam reveals no edema no cyanosis or clubbing Neurological examination reveals weakness with spasticity in the right upper extremity, which is chronic otherwise no acute changes Results CBC & Chem 7: 10/06/22 14:19 10/06/22 14:19 Labs: Abnormal Lab Results - Last 24 Hours (Table) 10/06/22 10/06/22 10/06/22 Range/Units 13:48 14:19 14:19 Hgb 9.7 L D (11.4-16.0) gm/dL Hct 33.1 L (34.0-46.0) % MCV 73.2 L (80.0-100.0) fL MCH 21.5 L (25.0-35.0) pg MCHC 29.4 L (31.0-37.0) g/dL RDW 18.3 H (11.5-15.5) % Sodium (137-145) mmol/L Potassium (3.5-5.1) mmol/L BUN (7-17) mg/dL Creatinine (0.52-1.04) mg/dL Glucose (74-99) mg/dL POC Glucose (mg/dL) 233 H (70-110) mg/dL Alkaline Phosphatase (38-126) U/L Total Protein (6.3-8.2) g/dL Urine Protein 2+ H (Negative) Urine Glucose (UA) 2+ H (Negative) Urine Bacteria Rare H (None) /hpf U Benzodiazepines Scrn Detected H (NotDetected) 10/06/22 10/06/22 10/06/22 Range/Units 14:19 17:26 20:39 Hgb (11.4-16.0) gm/dL Hct (34.0-46.0) % MCV (80.0-100.0) fL MCH (25.0-35.0) pg MCHC (31.0-37.0) g/dL RDW (11.5-15.5) % Sodium 136 L (137-145) mmol/L Potassium 5.2 H (3.5-5.1) mmol/L BUN 28 H (7-17) mg/dL Creatinine 1.43 H (0.52-1.04) mg/dL Glucose 213 H (74-99) mg/dL POC Glucose (mg/dL) 156 H 281 H (70-110) mg/dL Alkaline Phosphatase 133 H (38-126) U/L Total Protein 5.9 L (6.3-8.2) g/dL Urine Protein (Negative) Urine Glucose (UA) (Negative) Urine Bacteria (None) /hpf U Benzodiazepines Scrn (NotDetected) 10/07/22 Range/Units 06:00 Hgb (11.4-16.0) gm/dL Hct (34.0-46.0) % MCV (80.0-100.0) fL MCH (25.0-35.0) pg MCHC (31.0-37.0) g/dL RDW (11.5-15.5) % Sodium (137-145) mmol/L Potassium (3.5-5.1) mmol/L BUN (7-17) mg/dL Creatinine (0.52-1.04) mg/dL Glucose (74-99) mg/dL POC Glucose (mg/dL) 125 H (70-110) mg/dL Alkaline Phosphatase (38-126) U/L Total Protein (6.3-8.2) g/dL Urine Protein (Negative) Urine Glucose (UA) (Negative) Urine Bacteria (None) /hpf U Benzodiazepines Scrn (NotDetected) Assessment and Plan Plan: Syncopal episode, cause is not entirely clear, neurology consultation and cardiology consultation requested, patient had similar presentation in June of this year Generalized weakness Dehydration with acute kidney injury Hyperkalemia Anemia, will check iron profile, vitamin B12 and folate levels and replace if necessary Underlying history of multiple sclerosis Previous history of stroke with residual right upper extremity spastic paralysis Underlying history of hypertension Underlying history of insulin-dependent diabetes mellitus Underlying history of hyperlipidemia Underlying history of depression with anxiety disorder At this time patient is admitted to medical floor Home medications reviewed and reordered Patient started on IV fluid for dehydration and acute kidney injury will monitor kidney function Cardiology consultation and neurology consultation requested in regard to syncope For DVT prophylaxis patient is on subcu heparin Will continue to monitor
[2022-10-07] MEDS ORDERED: NON FORMULARY DRUG (Vitamin B Complex [Vitamin B Complex] 1 EACH Capsule) PO SCH (09:00)
--- NOTE | 2022-10-07 09:23 | P.CRDCN ---
History of Present Illness Consult date: 10/07/22 Chief complaint: Syncopal History of present illness: The patient is a very pleasant 52-year-old female patient with a past medical history significant for coronary artery disease with prior stenting of the LAD and diagonal RCA as well as history of stroke as well as hypertension and dyslipidemia and diabetes and smoking and multiple comorbid conditions. We requested to see the patient for further evaluation of syncope. The patient just was admitted to the hospital recently and she was seen by our service for syncope as well. We advise obtaining an event monitor. The patient stated that she did not have that done yet. This time she was in her usual state of health yesterday when she was sitting at home and suddenly she did have another episode of syncope. She stated that she did have some prodromal symptoms and she felt warm the 4 she lost her consciousness. No symptoms of heart racing or fluttering or dizziness or lightheadedness and no symptoms of chest pain or chest discomfort. She underwent further workup including computed tomography scan of the brain which showed no acute abnormalities. EKG showed sinus rhythm with no significant abnormalities as well. Cardiac enzymes came in to be unremarkable. The rest of workup came in to be unremarkable. The patient had no arrhythmia during her hospital stay. The most recent echocardiogram from 2021 showed normal biventricular systolic function was no significant valvular abnormalities. Recent stresses also came in to be unremarkable for ischemia. 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 Last Myocardial Infarction Date:: Pt thinks 2015 History of Any Multi-Drug Resistant Organisms: None Reported Past Surgical History: Section, Cholecystectomy, Heart Catheterization With Stent, Hysterectomy, Tubal Ligation, Uterine Ablation Additional Past Surgical History / Comment(s): vein stripping right leg, radio frequency ablation of right back-02/22/2015, four stents on 04/03/16 and one on march 05, ovaries removed, colonscopy- polyp removal Past Anesthesia/Blood Transfusion Reactions: Motion Sickness Additional Past Anesthesia/Blood Transfusion Reaction / Comment(s): mild claustrophobia Date of Last Stent Placement:: 04/03/16 Past Psychological History: Anxiety, Depression Additional Psychological History / Comment(s): Pt resides with her spouse. She is mostly in her wheelchair. She has a walker and cane. She has a dexcom. Her spouse assists her with her medication organization. Spouse also drives pt. Smoking Status: Current every day smoker Past Alcohol Use History: None Reported Additional Past Alcohol Use History / Comment(s): Pt started smoking in 1988 and is alittle less than a ppd smoker. Past Drug Use History: None Reported - Past Family History Father Family Medical History: Congestive Heart Failure (CHF), Coronary Artery Disease (CAD), Diabetes Mellitus Mother Family Medical History: Cancer, COPD, Hypertension, Respiratory Disorder Additional Family Medical History / Comment(s): emphysema, colon CA Medications and Allergies Home Medications Medication Instructions Recorded Confirmed Type Pregabalin [Lyrica] 150 mg PO BID 06/25/15 10/06/22 History lamoTRIgine 200 mg PO BID 07/30/16 10/06/22 History Magnesium Gluconate [Magonate] 500 mg PO HS 03/27/17 10/06/22 History Aspirin [Adult Low Dose Aspirin EC] 81 mg PO HS 11/26/17 10/06/22 History Enalapril [Vasotec] 10 mg PO BID 11/26/17 10/06/22 History DULoxetine HCL [Cymbalta] 60 mg PO DAILY 08/25/18 10/06/22 History Isosorbide Mononitrate ER [Imdur] 60 mg PO DAILY 09/08/18 10/06/22 History carvediloL [Coreg] 25 mg PO BID 01/22/19 10/06/22 History ARIPiprazole [Abilify] 2 mg PO DAILY 11/08/20 10/06/22 History Insulin Glargine,Hum.rec.anlog 30 unit SQ BID 11/08/20 10/06/22 History [Lantus Solostar Pen] ALPRAZolam [Xanax] 2 mg PO DAILY 07/31/21 10/06/22 History Atorvastatin [Lipitor] 40 mg PO DAILY 07/31/21 10/06/22 History Cholecalciferol (Vitamin D3) 125 mcg PO HS 07/31/21 10/06/22 History [Vitamin D3 (125 MCG = 5,000 IU)] amLODIPine [Norvasc] 10 mg PO DAILY 30 Days #30 tab 01/17/22 10/06/22 Rx Pantoprazole Sodium [Protonix] 40 mg PO DAILY 30 Days #30 tab 03/20/22 10/06/22 Rx Insulin Lispro Protamin/Lispro 25 unit SQ HS 07/20/22 10/06/22 History [humaLOG Mix 75-25 Kwikpen] Insulin Lispro Protamin/Lispro 30 unit SQ DAILY 07/20/22 10/06/22 History [humaLOG Mix 75-25 Kwikpen] Citalopram Hydrobromide [CeleXA] 20 mg PO DAILY 09/01/22 10/06/22 History Albuterol Nebulized [Ventolin 2.5 mg INHALATION RT-QID PRN 10/06/22 10/06/22 History Nebulized] Empagliflozin [Jardiance] 10 mg PO DAILY 10/06/22 10/06/22 History Famotidine 20 mg PO DAILY 10/06/22 10/06/22 History Folic Acid 1.6 mg PO HS 10/06/22 10/06/22 History Nitroglycerin Sl Tabs [Nitrostat] 0.4 mg SL Q5M PRN 10/06/22 10/06/22 History Ondansetron Odt [Zofran Odt] 8 mg PO TID PRN 10/06/22 10/06/22 History Pioglitazone [Actos] 15 mg PO DAILY 10/06/22 10/06/22 History Promethazine [Phenergan] 25 mg PO Q6H PRN 10/06/22 10/06/22 History Vitamin B Complex 1 cap PO DAILY 10/06/22 10/06/22 History Allergies Allergy/AdvReac Type Severity Reaction Status Date / Time Fish Containing Products Allergy Anaphylaxis Verified 10/06/22 17:05 Iodinated Contrast Media Allergy Anaphylaxis Verified 10/06/22 17:05 [Iodinated Contrast Media - IV Dye] Sulfa (Sulfonamide Allergy Anaphylaxis Verified 10/06/22 17:05 Antibiotics) sulfamethoxazole Allergy Anaphylaxis Verified 10/06/22 17:05 [From ] tree nut [Nut] Allergy Anaphylaxis Verified 10/06/22 17:05 trimethoprim [From ] Allergy Anaphylaxis Verified 10/06/22 17:05 Physical Exam Vitals: Vital Signs Temp Pulse Pulse Resp BP BP Pulse Ox 10/07/22 08:24 98.3 F 62 18 146/65 90 L 10/07/22 02:31 98.6 F 67 16 151/65 95 10/06/22 20:40 98.1 F 71 17 155/72 94 L 10/06/22 19:44 97 10/06/22 16:43 98.0 F 67 18 189/79 98 10/06/22 16:00 98.2 F 64 18 156/75 98 10/06/22 15:00 18 179/74 96 10/06/22 14:00 16 184/82 95 10/06/22 13:50 16 184/80 96 10/06/22 13:40 97.8 F 65 16 184/82 95 Intake and Output 10/06/22 10/07/22 10/07/22 22:59 06:59 14:59 Other: # Voids 1 1 Weight 89.358 kg - Constitutional General appearance: no acute distress - Respiratory Respiratory: bilateral: CTA - Cardiovascular Rhythm: regular Heart sounds: normal: S1, S2 Abnormal Heart Sounds: systolic murmur Results 10/06/22 14:19 10/06/22 14:19 Cardiac Enzymes 10/06/22 10/06/22 Range/Units 14:19 14:19 AST 20 (14-36) U/L Troponin I <0.012 (0.000-0.034) ng/mL Coagulation 10/06/22 Range/Units 14:19 PT 10.7 (9.0-12.0) sec APTT 26.9 (22.0-30.0) sec CBC 10/06/22 Range/Units 14:19 WBC 9.3 (3.8-10.6) k/uL RBC 4.51 (3.80-5.40) m/uL Hgb 9.7 L D (11.4-16.0) gm/dL Hct 33.1 L (34.0-46.0) % Plt Count 245 (150-450) k/uL Comprehensive Metabolic Panel 10/06/22 Range/Units 14:19 Sodium 136 L (137-145) mmol/L Potassium 5.2 H (3.5-5.1) mmol/L Chloride 106 (98-107) mmol/L Carbon Dioxide 22 (22-30) mmol/L BUN 28 H (7-17) mg/dL Creatinine 1.43 H (0.52-1.04) mg/dL Glucose 213 H (74-99) mg/dL Calcium 9.5 (8.4-10.2) mg/dL AST 20 (14-36) U/L ALT 18 (4-34) U/L Alkaline Phosphatase 133 H (38-126) U/L Total Protein 5.9 L (6.3-8.2) g/dL Albumin 3.5 (3.5-5.0) g/dL Current Medications Generic Name Dose Route Start Last Admin Trade Name Freq PRN Reason Stop Dose Admin Albuterol Sulfate 2.5 mg 10/06/22 18:53 Albuterol Nebulized 2.5 Mg/3 Ml INHALATION RT-QID PRN Shortness Of Breath Alprazolam 2 mg 10/06/22 18:53 10/06/22 20:27 Alprazolam 1 Mg Tab PO 2 mg DAILY SARAHY Administration Amlodipine Besylate 10 mg 10/06/22 19:00 10/06/22 20:28 Amlodipine 10 Mg Tab PO 10 mg DAILY SARAHY Administration Aripiprazole 2 mg 10/06/22 19:00 10/06/22 20:47 Aripiprazole 2 Mg Tab PO 2 mg DAILY SARAHY Administration Aspirin 81 mg 10/06/22 21:00 10/06/22 20:28 Aspirin 81 Mg PO 81 mg HS SARAHY Administration Atorvastatin Calcium 40 mg 10/06/22 19:00 10/06/22 20:38 Atorvastatin 40 Mg Tab PO Not Given DAILY SARAHY Carvedilol 25 mg 10/06/22 21:00 10/07/22 06:01 Carvedilol 12.5 Mg Tab PO 25 mg BID-W/MEALS SARAHY Administration Cholecalciferol 125 mcg 10/06/22 21:00 10/06/22 20:27 Cholecalciferol 125 Mcg (5000 Iu) Tablet PO 125 mcg HS SARAHY Administration Citalopram Hydrobromide 20 mg 10/06/22 19:00 10/06/22 20:28 Citalopram Hydrobromide 20 Mg Tab PO Not Given DAILY SARAHY Dapagliflozin 5 mg 10/06/22 19:00 10/06/22 20:47 Dapagliflozin Propanediol 5 Mg Tablet PO 5 mg DAILY SARAHY Administration Dextrose/Water 25 ml 10/06/22 18:51 Dextrose 50% Syringe 50 Ml IVP PER PROTOCOL PRN Hypoglycemia Protocol Dextrose/Water 50 ml 10/06/22 18:51 Dextrose 50% Syringe 50 Ml IVP PER PROTOCOL PRN Hypoglycemia Protocol Duloxetine HCl 60 mg 10/06/22 19:00 10/06/22 20:28 Duloxetine Hcl 60 Mg Capsule.Dr PO 60 mg DAILY SARAHY Administration Famotidine 20 mg 10/07/22 09:00 Famotidine 20 Mg Tab PO DAILY SARAHY Folic Acid 2 mg 10/06/22 21:00 10/06/22 20:29 Folic Acid 1 Mg Tab PO 2 mg HS SARAHY Administration Heparin Sodium (Porcine) 5,000 unit 10/06/22 16:00 10/06/22 20:52 Heparin Sodium,Porcine/Pf 5,000 Unit/0.5 Ml Syringe SQ 5,000 unit Q8HR SARAHY Administration Hydralazine HCl 10 mg 10/06/22 18:49 Hydralazine Hcl 20 Mg/Ml 1 Ml Vial IVP Q6HR PRN Blood Pressure - High Sodium Chloride 1,000 mls @ 100 mls/hr 10/06/22 16:00 10/07/22 02:19 Saline 0.9% IV 100 mls/hr .Q10H SARAHY Administration Insulin Aspart 0 unit 10/06/22 21:00 10/07/22 06:00 Insulin Aspart (Novolog) 100 Unit/Ml Vial SQ Not Given [facility]–1983 Protocol Insulin Detemir 30 unit 10/06/22 21:00 10/06/22 20:46 Insulin Detemir (Levemir) 100 Unit/Ml Syr SQ 30 unit BID SARAHY Administration Isosorbide Mononitrate 60 mg 10/06/22 19:00 10/06/22 20:47 Isosorbide Mononitrate Er 60 Mg Tab.Er.24h PO 60 mg DAILY SARAHY Administration Lamotrigine 200 mg 10/06/22 21:00 10/06/22 20:28 Lamotrigine 100 Mg Tab PO 200 mg BID SARAHY Administration Lisinopril 40 mg 10/07/22 09:00 Lisinopril 20 Mg Tab PO DAILY SARAHY Magnesium Oxide 400 mg 10/06/22 21:00 10/06/22 20:27 Magnesium Oxide 400 Mg Tab PO 400 mg HS SARAHY Administration Naloxone HCl 0.2 mg 10/06/22 15:52 Naloxone 0.4 Mg/Ml 1 Ml Vial IV Q2M PRN Opioid Reversal Ondansetron HCl 8 mg 10/06/22 18:53 Ondansetron Odt 8 Mg Tab.Rapdis PO TID PRN Nausea Pantoprazole Sodium 40 mg 10/07/22 07:30 10/07/22 06:01 Pantoprazole 40 Mg Tablet PO 40 mg [id number] SARAHY Administration Pioglitazone HCl 15 mg 10/07/22 09:00 Pioglitazone 15 Mg Tab PO DAILY SARAHY Pregabalin 150 mg 10/06/22 21:00 10/06/22 20:28 Pregabalin 75 Mg Cap PO 150 mg BID SARAHY Administration Promethazine HCl 25 mg 10/06/22 18:53 Promethazine 25 Mg Tab PO Q6H PRN Nausea Intake and Output 10/06/22 10/07/22 10/07/22 22:59 06:59 14:59 Other: # Voids 1 1 Weight 89.358 kg 10/06/22 14:19 10/06/22 14:19 Assessment and Plan Assessment: Assessment #1 recurrent syncope, etiology still unknown, differential diagnosis is reflex syncope versus cardiac syncope #2 coronary artery disease with prior revascularization #3 significant history of smoking and the patient continues to smoke #4 hypertension #5 dyslipidemia #6 diabetes #7 history of stroke #8 multiple comorbid condition Plan Obtain orthostatic hypotension. The patient did have prodromal symptoms before her episode of syncope Rule out cardiac syncope, mainly cardiac arrhythmia, giving the structural heart disease she has No need for echo or stress is at this point in the light of recent testing came in to be unremarkable Follow-up with the patient
[2022-10-07 09:45] LABS: Basophils # (A) 0.07 X 10*3/uL (0.00-0.10); Basophils % (A) 0.8 %; Eosinophils # (A) 0.17 X 10*3/uL (0.04-0.35); HCT 29.4 % (37.2-46.3); Immature Grans, Automated 0.3 %; Lymphocytes # (A) 2.69 X 10*3/uL (0.90-5.00); Lymphocytes % (A) 31.3 %; MCH 20.4 pg (27.0-32.0); MCHC 27.2 g/dL (32.0-37.0); Mean Platelet Volume 11.1 fL (9.5-12.2); Monocytes # (A) 0.48 X 10*3/uL (0.20-1.00); Monocytes % (A) 5.6 %; NRBC Per 100 WBC 0 /100 WBCS (0.0-0.0); Neutrophils # (A) 5.15 X 10*3/uL (1.80-7.70); Platelet Count 277 X 10*3/uL (140-440); RBC 3.92 X 10*6/uL (4.10-5.20); RDW 19.4 % (11.5-14.5); WBC 8.59 X 10*3/uL (4.50-10.00)
[2022-10-07 09:57] LABS: African American GFR (CKD) 50.3 (60.0-200.0); Anion Gap 9.4 mmol/L (10.00-18.00); BUN/Creat Ratio 16.21 Ratio (12.00-20.00); Blood Urea Nitrogen 22.7 mg/dL (9.0-27.0); Calcium 9.5 mg/dL (8.7-10.3); Carbon Dioxide 23.6 mmol/L (20.0-27.5); Non-African American GFR(CKD) 43.4 (60.0-200.0); Potassium 4.6 mmol/L (3.5-5.5)
[2022-10-07] MEDS: PREGABALIN 75 MG CAP PO SCH ×2 (10:02→21:07)
[2022-10-07] MEDS: INSULIN DETEMIR (LEVEMIR) 100 UNIT/ML SYR SQ SCH ×2 (10:03→21:07)
[2022-10-07] MEDS: DAPAGLIFLOZIN PROPANEDIOL 5 MG TABLET PO SCH (10:03)
[2022-10-07] MEDS: PIOGLITAZONE 15 MG TAB PO SCH (10:04)
[2022-10-07] MEDS: ISOSORBIDE MONONITRATE ER 60 MG TAB.ER.24H PO SCH (10:04)
[2022-10-07] MEDS: HEPARIN SODIUM,PORCINE/PF 5,000 UNIT/0.5 ML SYRINGE SQ SCH ×3 (10:04→21:08)
[2022-10-07] MEDS: ARIPiprazole 2 MG TAB PO SCH (10:04)
[2022-10-07] MEDS: DULoxetine HCL 60 MG CAPSULE.DR PO SCH (10:05)
[2022-10-07] MEDS: lamoTRIgine 100 MG TAB PO SCH ×2 (10:05→21:07)
[2022-10-07] MEDS: ATORVASTATIN 40 MG TAB PO SCH (10:05)
[2022-10-07] MEDS: FAMOTIDINE 20 MG TAB PO SCH (10:05)
[2022-10-07] MEDS: lisinopriL 20 MG TAB PO SCH (10:05)
[2022-10-07] MEDS: CITALOPRAM HYDROBROMIDE 20 MG TAB PO SCH (10:05)
[2022-10-07] MEDS: amLODIPine 10 MG TAB PO SCH (10:06)
[2022-10-07] MEDS: ALPRAZolam 1 MG TAB PO SCH (11:25)
[2022-10-07 12:06] LABS: Glucose,Whole Blood 193 mg/dL (70-110)
[2022-10-07 15:20] LABS: % Iron Saturation 3.18 (12.00-45.00)
--- NOTE | 2022-10-07 15:40 | P.CNNES ---
History of Present Illness Consult date: 10/07/22 Reason for Consult: possible syncope History of Present Illness: The patient is a 52-year-old female who is seen in neurologic [facility], [place] on October 07, 2022, via teleneurology. The patient is being seen because of concerns regarding loss of consciousness and possible syncope. The patient reports not recalling passing out. She s tates that she was sitting at her kitchen table, and that is the last thing she remembers. She says she did not fall out of the chair. She says the next thing she remembered was waking in her bed with a horrible pain in her left evangelical. She does not recall riding in the ambulance to the emergency department. She also does not recall being in the emergency department. The patient denies a warning that she was going to pass out. The patient denies tongue biting. She does report having an episode in the past in which she lost consciousness and lost control of her bowel and bladder. The patient reportedly has a history of multiple sclerosis. She says she is able to walk with assistance. She reports being diagnosed with MS, approximately 8 years ago. She has increased tone and weakness in her right upper extremity, at baseline. The patient has a "past medical history significant for coronary artery disease with prior stenting of the LAD and diagonal RCA as well as history of stroke as well as hypertension and dyslipidemia and diabetes and smoking and multiple comorbid conditions. We requested to see the patient for further evaluation of syncope. The patient just was admitted to the hospital recently and she was seen by our service for syncope as well. We advise obtaining an event monitor. The patient stated that she did not have that done yet". The patient has report edly been worked up on several occasions, for syncope and seizure. There have been no definitive findings to suggest an etiology for syncope, nor findings to definitively diagnose seizure. The patient denies new symptoms. She denies headache, new weakness, numbness and tingling. The patient does report her usual back pain. She also states that she has been having horizontal diplopia for the past 2 days. In the emergency department, CT scan of the brain was performed. There is no evidence of acute hemorrhage or infarct. Laboratory evaluation in the emergency department reveals a sodium of 136 and a potassium of 5.2. The BUN is elevated at 28 creatinine elevated at 1.43. According to the nurse at the bedside, the patient was able to ambulate, unassisted, to the bathroom. Her gait was reportedly "slow". 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 Last Myocardial Infarction Date:: Pt thinks 2015 History of Any Multi-Drug Resistant Organisms: None Reported Past Surgical History: Section, Cholecystectomy, Heart Catheterization With Stent, Hysterectomy, Tubal Ligation, Uterine Ablation Additional Past Surgical History / Comment(s): vein stripping right leg, radio frequency ablation of right back-02/22/2015, four stents on 04/03/16 and one on march 05, ovaries removed, colonscopy- polyp removal Past Anesthesia/Blood Transfusion Reactions: Motion Sickness Additional Past Anesthesia/Blood Transfusion Reaction / Comment(s): mild claustrophobia Date of Last Stent Placement:: 04/03/16 Past Psychological History: Anxiety, Depression Additional Psychological History / Comment(s): Pt resides with her spouse. She is mostly in her wheelchair. She has a walker and cane. She has a dexcom. Her spouse assists her with her medication organization. Spouse also drives pt. Smoking Status: Current every day smoker Past Alcohol Use History: None Reported Additional Past Alcohol Use History / Comment(s): Pt started smoking in 1988 and is alittle less than a ppd smoker. Past Drug Use History: None Reported - Past Family History Father Family Medical History: Congestive Heart Failure (CHF), Coronary Artery Disease (CAD), Diabetes Mellitus Mother Family Medical History: Cancer, COPD, Hypertension, Respiratory Disorder Additional Family Medical History / Comment(s): emphysema, colon CA Medications and Allergies Home Medications Medication Instructions Recorded Confirmed Type Pregabalin [Lyrica] 150 mg PO BID 06/25/15 10/06/22 History lamoTRIgine 200 mg PO BID 07/30/16 10/06/22 History Magnesium Gluconate [Magonate] 500 mg PO HS 03/27/17 10/06/22 History Aspirin [Adult Low Dose Aspirin EC] 81 mg PO HS 11/26/17 10/06/22 History Enalapril [Vasotec] 10 mg PO BID 11/26/17 10/06/22 History DULoxetine HCL [Cymbalta] 60 mg PO DAILY 08/25/18 10/06/22 History Isosorbide Mononitrate ER [Imdur] 60 mg PO DAILY 09/08/18 10/06/22 History carvediloL [Coreg] 25 mg PO BID 01/22/19 10/06/22 History ARIPiprazole [Abilify] 2 mg PO DAILY 11/08/20 10/06/22 History Insulin Glargine,Hum.rec.anlog 30 unit SQ BID 11/08/20 10/06/22 History [Lantus Solostar Pen] ALPRAZolam [Xanax] 2 mg PO DAILY 07/31/21 10/06/22 History Atorvastatin [Lipitor] 40 mg PO DAILY 07/31/21 10/06/22 History Cholecalciferol (Vitamin D3) 125 mcg PO HS 07/31/21 10/06/22 History [Vitamin D3 (125 MCG = 5,000 IU)] amLODIPine [Norvasc] 10 mg PO DAILY 30 Days #30 tab 01/17/22 10/06/22 Rx Pantoprazole Sodium [Protonix] 40 mg PO DAILY 30 Days #30 tab 03/20/22 10/06/22 Rx Insulin Lispro Protamin/Lispro 25 unit SQ HS 07/20/22 10/06/22 History [humaLOG Mix 75-25 Kwikpen] Insulin Lispro Protamin/Lispro 30 unit SQ DAILY 07/20/22 10/06/22 History [humaLOG Mix 75-25 Kwikpen] Citalopram Hydrobromide [CeleXA] 20 mg PO DAILY 09/01/22 10/06/22 History Albuterol Nebulized [Ventolin 2.5 mg INHALATION RT-QID PRN 10/06/22 10/06/22 History Nebulized] Empagliflozin [Jardiance] 10 mg PO DAILY 10/06/22 10/06/22 History Famotidine 20 mg PO DAILY 10/06/22 10/06/22 History Folic Acid 1.6 mg PO HS 10/06/22 10/06/22 History Nitroglycerin Sl Tabs [Nitrostat] 0.4 mg SL Q5M PRN 10/06/22 10/06/22 History Ondansetron Odt [Zofran Odt] 8 mg PO TID PRN 10/06/22 10/06/22 History Pioglitazone [Actos] 15 mg PO DAILY 10/06/22 10/06/22 History Promethazine [Phenergan] 25 mg PO Q6H PRN 10/06/22 10/06/22 History Vitamin B Complex 1 cap PO DAILY 10/06/22 10/06/22 History Allergies Allergy/AdvReac Type Severity Reaction Status Date / Time Fish Containing Products Allergy Anaphylaxis Verified 10/06/22 17:05 Iodinated Contrast Media Allergy Anaphylaxis Verified 10/06/22 17:05 [Iodinated Contrast Media - IV Dye] Sulfa (Sulfonamide Allergy Anaphylaxis Verified 10/06/22 17:05 Antibiotics) sulfamethoxazole Allergy Anaphylaxis Verified 10/06/22 17:05 [From Septra] tree nut [Nut] Allergy Anaphylaxis Verified 10/06/22 17:05 trimethoprim [From Junra] Allergy Anaphylaxis Verified 10/06/22 17:05 Physical Examination - Vital Signs Vital Signs: Vital Signs Temp Pulse Pulse Resp BP BP Pulse Ox 10/07/22 08:24 98.3 F 62 18 146/65 90 L 10/07/22 02:31 98.6 F 67 16 151/65 95 10/06/22 20:40 98.1 F 71 17 155/72 94 L 10/06/22 19:44 97 10/06/22 16:43 98.0 F 67 18 189/79 98 10/06/22 16:00 98.2 F 64 18 156/75 98 10/06/22 15:00 18 179/74 96 10/06/22 14:00 16 184/82 95 10/06/22 13:50 16 184/80 96 10/06/22 13:40 97.8 F 65 16 184/82 95 Intake and Output 10/06/22 10/07/22 10/07/22 22:59 06:59 14:59 Other: # Voids 1 1 Weight 89.358 kg Gen.: The patient is reclining in the bed. She is well-nourished. She is in no acute distress. HEENT: Head is atraumatic, normocephalic. Fundus not visualized. There is no scleral icterus. Mucous membranes are moist. Neck: Supple, without carotid bruits Heart: Regular rate and rhythm Extremities: Without edema Neurological examination Mental status: The patient is awake, alert and oriented 3. Her speech is clear. There is no dysarthria or aphasia. Cranial nerves: Pupils are equal at 3 mm and reactive. Visual li are full to confrontation. Extraocular movements are intact. There is no nystagmus. Facial sensation is intact. There is no facial asymmetry. Hearing is grossly intact. Uvula and palate are midline. Shoulder shrug is diminished on the right. Tongue protrudes midline. There is no evidence of tongue bite. Motor: Right upper extremity strength 4/5. There is increased flexor tone in the right upper extremity. Right hip flexor 4+/5. Right ankle dorsi and plantar flexors 0-1/5. Left-sided strength 5/5 throughout. Sensation: There is decreased light touch sensation in the right upper extremity. Sensation is otherwise intact throughout Coordination: Left finger to nose testing is intact. Deep tendon reflexes: 3+/4+ in the bilateral upper extremities. Right patellar reflex 3-4+/4+. Left patellar reflex 3+/4+. There 2-3 beats of clonus at the right knee. Gait: Not assessed Results - Laboratory Findings CBC and BMP: 10/07/22 06:04 10/07/22 06:04 Abnormal Lab Findings: Abnormal Labs 10/06/22 10/06/22 10/06/22 13:48 14:19 14:19 Hgb 9.7 L D Hct 33.1 L MCV 73.2 L MCH 21.5 L MCHC 29.4 L RDW 18.3 H Sodium Potassium BUN Creatinine Glucose POC Glucose (mg/dL) 233 H Alkaline Phosphatase Total Protein Urine Protein 2+ H Urine Glucose (UA) 2+ H Urine Bacteria Rare H U Benzodiazepines Scrn Detected H 10/06/22 10/06/22 10/06/22 14:19 17:26 20:39 Hgb Hct MCV MCH MCHC RDW Sodium 136 L Potassium 5.2 H BUN 28 H Creatinine 1.43 H Glucose 213 H POC Glucose (mg/dL) 156 H 281 H Alkaline Phosphatase 133 H Total Protein 5.9 L Urine Protein Urine Glucose (UA) Urine Bacteria U Benzodiazepines Scrn 10/07/22 06:00 Hgb Hct MCV MCH MCHC RDW Sodium Potassium BUN Creatinine Glucose POC Glucose (mg/dL) 125 H Alkaline Phosphatase Total Protein Urine Protein Urine Glucose (UA) Urine Bacteria U Benzodiazepines Scrn Assessment and Plan Assessment: 1. Recurrent syncopal episodes versus seizure. 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 Previous cerebral infarct and multiple sclerosis may provide an etiology for seizures 2. History of coronary artery disease 3. History of cerebral infarct 4. History of diabetes mellitus 5. History of hypertension 6. History of hyperlipidemia 7. Current tobacco abuse Plan: 1. Orthostatic vital should be assessed 2. EEG will be ordered 3. Consider tilt table testing and/or autonomic testing 4. Agree with recommendations for Holter monitor Thank you for allowing us to participate in the care of this patient. Dr. Mccarty will assume neurologic coverage of this patient as of October 08, 2022 Time with Patient: Greater than 30 (spent 35 minutes examining this highly complex patient. An additional 25 minutes was spent reviewing imaging reports, lab work, documentation from this admission and previous admissions and preparin g this note)
[2022-10-07 17:03] LABS: Glucose,Whole Blood 177 mg/dL (70-110)
[2022-10-07] MEDS ORDERED: ACETAMINOPHEN TAB 325 MG TAB PO PRN (17:31)
[2022-10-07 20:52] LABS: Glucose,Whole Blood 184 mg/dL (70-110)
[2022-10-07] MEDS ORDERED: ALPRAZolam 1 MG TAB PO SCH (21:00)
[2022-10-07] MEDS: FOLIC ACID 1 MG TAB PO SCH (21:07)
[2022-10-07] MEDS: MAGNESIUM OXIDE 400 MG TAB PO SCH (21:07)
[2022-10-07] MEDS: CHOLECALCIFEROL 125 MCG (5000 IU) TABLET PO SCH (21:07)
[2022-10-07] MEDS: ASPIRIN 81 MG PO SCH (21:07)
[2022-10-08 06:21] LABS: Glucose,Whole Blood 111 mg/dL (70-110)
[2022-10-08] MEDS: INSULIN ASPART (NovoLOG) 100 UNIT/ML VIAL SQ SCH ×3 (06:28→17:35)
[2022-10-08] MEDS: PANTOPRAZOLE 40 MG TABLET PO SCH (06:31)
[2022-10-08] MEDS: carvediloL 12.5 MG TAB PO SCH (06:31)
[2022-10-08 09:00] LABS: ALT 18 U/L (8-44); AST 15 U/L (13-35); African American GFR (CKD) 46.3 (60.0-200.0); Albumin 3.7 g/dL (3.8-4.9); Albumin/Globulin Ratio 1.76 (1.60-3.17); Alkaline Phosphatase 136 U/L (41-126); BUN/Creat Ratio 13.67 Ratio (12.00-20.00); Blood Urea Nitrogen 20.5 mg/dL (9.0-27.0); Calcium 10.1 mg/dL (8.7-10.3); Carbon Dioxide 24.3 mmol/L (20.0-27.5); Chloride 107 mmol/L (96-109); Globulin 2.1 g/dL (1.6-3.3); Glucose 121 mg/dL (70-110); Non-African American GFR(CKD) 39.9 (60.0-200.0); Potassium 4.8 mmol/L (3.5-5.5); Sodium 141 mmol/L (135-145); Total Bilirubin <0.15 mg/dL (0.30-1.20); Total Protein 5.8 g/dL (6.2-8.2)
[2022-10-08 09:19] LABS: Basophils # (A) 0.08 X 10*3/uL (0.00-0.10); Basophils % (A) 1.2 %; Eosinophils # (A) 0.17 X 10*3/uL (0.04-0.35); Eosinophils % (A) 2.5 %; HCT 31.5 % (37.2-46.3); HGB 8.6 g/dL (12.0-15.0); Immature Grans, Automated 0.3 %; Lymphocytes # (A) 2.46 X 10*3/uL (0.90-5.00); Lymphocytes % (A) 35.9 %; MCH 20.2 pg (27.0-32.0); MCHC 27.3 g/dL (32.0-37.0); MCV 74.1 fL (80.0-97.0); Mean Platelet Volume 11.2 fL (9.5-12.2); Monocytes # (A) 0.41 X 10*3/uL (0.20-1.00); NRBC Per 100 WBC 0 /100 WBCS (0.0-0.0); Neutrophils # (A) 3.72 X 10*3/uL (1.80-7.70); Neutrophils % (A) 54.1 %; Platelet Count 320 X 10*3/uL (140-440); RBC 4.25 X 10*6/uL (4.10-5.20); RDW 19.6 % (11.5-14.5); WBC 6.86 X 10*3/uL (4.50-10.00)
[2022-10-08] MEDS: lisinopriL 20 MG TAB PO SCH (09:27)
[2022-10-08] MEDS: INSULIN DETEMIR (LEVEMIR) 100 UNIT/ML SYR SQ SCH (09:27)
[2022-10-08] MEDS: PIOGLITAZONE 15 MG TAB PO SCH (09:27)
[2022-10-08] MEDS: DULoxetine HCL 60 MG CAPSULE.DR PO SCH (09:27)
[2022-10-08] MEDS: DAPAGLIFLOZIN PROPANEDIOL 5 MG TABLET PO SCH (09:27)
[2022-10-08] MEDS: ATORVASTATIN 40 MG TAB PO SCH (09:27)
[2022-10-08] MEDS: ISOSORBIDE MONONITRATE ER 60 MG TAB.ER.24H PO SCH (09:27)
[2022-10-08] MEDS: HEPARIN SODIUM,PORCINE/PF 5,000 UNIT/0.5 ML SYRINGE SQ SCH ×2 (09:27→16:41)
[2022-10-08] MEDS: CITALOPRAM HYDROBROMIDE 20 MG TAB PO SCH (09:28)
[2022-10-08] MEDS: lamoTRIgine 100 MG TAB PO SCH (09:28)
[2022-10-08] MEDS: PREGABALIN 75 MG CAP PO SCH (09:29)
[2022-10-08] MEDS: FAMOTIDINE 20 MG TAB PO SCH (09:29)
[2022-10-08] MEDS: SODIUM CHLORIDE 0.9% 1,000 ML IV SCH ×2 (09:29→17:55)
[2022-10-08] MEDS: ARIPiprazole 2 MG TAB PO SCH (09:29)
[2022-10-08] MEDS: amLODIPine 10 MG TAB PO SCH (09:29)
--- NOTE | 2022-10-08 12:21 | P.PN ---
Subjective Progress Note Date: 10/08/22 Patient was seen for a follow-up. Patient initially seen by Dr Cyr yesterday. Please refer to her note for details. Patient has presented with syncope versus seizure. As per Dr. Cyr report, patient has mentioned that she was sitting at her kitchen table and that is the last thing she remembers. She says she did not fall out of the chair. She says the next thing she remembered was waking up in her bed with the horrible pain in her left islam. She does not recall riding in the ambulance to the ER. There was no prior warning or aura. Patient however told me that after she passed out, she woke in the ambulance and then passed out again. Patient states that she has been having syncopal spell about 2-3 times a day for the last 4 months. She also gets pain in the temples, that comes and goes. Patient has diagnosis of MS about 8 years ago. Patient has history of stroke, with spastic right hemiplegia. Patient currently takes Ocrevus, and her last dose was in June 2022. Patient states that she is mostly in the wheelchair, but sometimes she does walk holding onto her and the up. Patient is a 52-year-old female with episode of loss of consciousness, possible syncope versus seizure. Patient has history of MS, follows up with Dr Brooks. Orthostatics and EEG was recommended. Objective - Vital Signs Vital signs: Vital Signs Temp 98.0 F 10/08/22 07:05 Pulse 64 10/08/22 07:05 Resp 16 10/08/22 07:05 BP 168/74 10/08/22 07:05 Pulse Ox 100 10/08/22 07:11 FiO2 Intake & Output 10/07/22 10/08/22 10/08/22 18:59 06:59 18:59 Intake Total 474 Output Total 1 Balance 473 Intake: Oral 474 Output: Urine 1 Other: Voiding Method Bedside Commode # Voids 2 2 # Bowel Movements 1 - Exam GENERAL: The patient is lying in bed and is not in acute distress. NEUROLOGICAL: Higher mental function: The patient is awake, alert,. Speech and language functions are normal.. Patient has spastic hemiparesis on the right side. - Labs CBC & Chem 7: 10/08/22 04:54 10/08/22 04:54 Labs: Abnormal Lab Results - Last 24 Hours (Table) 10/07/22 10/07/22 10/07/22 Range/Units 06:04 06:04 06:04 RBC 3.92 L (4.10-5.20) X 10*6/uL Hgb 8.0 L (12.0-15.0) g/dL Hct 29.4 L (37.2-46.3) % MCV 75.0 L (80.0-97.0) fL MCH 20.4 L (27.0-32.0) pg MCHC 27.2 L (32.0-37.0) g/dL RDW 19.4 H (11.5-14.5) % Anion Gap 9.40 L (10.00-18.00) mmol/L Est GFR (CKD-EPI)AfAm 50.3 L (60.0-200.0) Est GFR (CKD-EPI)NonAf 43.4 L (60.0-200.0) Glucose 116 H (70-110) mg/dL POC Glucose (mg/dL) (70-110) mg/dL Hemoglobin A1c (0.0-6.0) % Iron 12 L (50-170) ug/dL % Saturation 3.18 L (12.00-45.00) Total Bilirubin (0.30-1.20) mg/dL Alkaline Phosphatase (41-126) U/L Total Protein (6.2-8.2) g/dL Albumin (3.8-4.9) g/dL Vitamin B12 1748.0 H (200.0-944.0) pg/mL Folate (4.40-31.00) ng/mL 10/07/22 10/07/22 10/07/22 Range/Units 06:04 06:04 12:04 RBC (4.10-5.20) X 10*6/uL Hgb (12.0-15.0) g/dL Hct (37.2-46.3) % MCV (80.0-97.0) fL MCH (27.0-32.0) pg MCHC (32.0-37.0) g/dL RDW (11.5-14.5) % Anion Gap (10.00-18.00) mmol/L Est GFR (CKD-EPI)AfAm (60.0-200.0) Est GFR (CKD-EPI)NonAf (60.0-200.0) Glucose (70-110) mg/dL POC Glucose (mg/dL) 193 H (70-110) mg/dL Hemoglobin A1c 9.3 H (0.0-6.0) % Iron (50-170) ug/dL % Saturation (12.00-45.00) Total Bilirubin (0.30-1.20) mg/dL Alkaline Phosphatase (41-126) U/L Total Protein (6.2-8.2) g/dL Albumin (3.8-4.9) g/dL Vitamin B12 (200.0-944.0) pg/mL Folate 40.00 H (4.40-31.00) ng/mL 10/07/22 10/07/22 10/08/22 Range/Units 17:01 20:50 04:54 RBC (4.10-5.20) X 10*6/uL Hgb 8.6 L (12.0-15.0) g/dL Hct 31.5 L (37.2-46.3) % MCV 74.1 L (80.0-97.0) fL MCH 20.2 L (27.0-32.0) pg MCHC 27.3 L (32.0-37.0) g/dL RDW 19.6 H (11.5-14.5) % Anion Gap (10.00-18.00) mmol/L Est GFR (CKD-EPI)AfAm (60.0-200.0) Est GFR (CKD-EPI)NonAf (60.0-200.0) Glucose (70-110) mg/dL POC Glucose (mg/dL) 177 H 184 H (70-110) mg/dL Hemoglobin A1c (0.0-6.0) % Iron (50-170) ug/dL % Saturation (12.00-45.00) Total Bilirubin (0.30-1.20) mg/dL Alkaline Phosphatase (41-126) U/L Total Protein (6.2-8.2) g/dL Albumin (3.8-4.9) g/dL Vitamin B12 (200.0-944.0) pg/mL Folate (4.40-31.00) ng/mL 12/12/22 12/12/22 Range/Units 04:54 06:20 RBC (4.10-5.20) X 10*6/uL Hgb (12.0-15.0) g/dL Hct (37.2-46.3) % MCV (80.0-97.0) fL MCH (27.0-32.0) pg MCHC (32.0-37.0) g/dL RDW (11.5-14.5) % Anion Gap 9.70 L (10.00-18.00) mmol/L Est GFR (CKD-EPI)AfAm 46.3 L (60.0-200.0) Est GFR (CKD-EPI)NonAf 39.9 L (60.0-200.0) Glucose 121 H (70-110) mg/dL POC Glucose (mg/dL) 111 H (70-110) mg/dL Hemoglobin A1c (0.0-6.0) % Iron (50-170) ug/dL % Saturation (12.00-45.00) Total Bilirubin <0.15 L (0.30-1.20) mg/dL Alkaline Phosphatase 136 H (41-126) U/L Total Protein 5.8 L (6.2-8.2) g/dL Albumin 3.7 L (3.8-4.9) g/dL Vitamin B12 (200.0-944.0) pg/mL Folate (4.40-31.00) ng/mL Microbiology - Last 24 Hours (Table) 10/07/22 06:04 Blood Culture - Preliminary Blood No Growth after 24 hours Assessment and Plan Assessment: 1. Recurrent syncopal episodes versus seizure. 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 2. History of coronary artery disease 3. History of cerebral infarct, with spastic right hemiparesis 4. History of diabetes mellitus 5. History of hypertension 6. History of hyperlipidemia 7. Current tobacco abuse Plan: 1. Orthostatics were checked, and are quite positive. Supine blood pressure 165/70, sitting 152/68 and standing up 111/67. Pulse rate was 64, 66 and 70 respectively. Patient may need a tilt table test. Cardiology on board. Patient may benefit from midodrine, tilt table test. 2. EEG was checked, which is normal. No epileptiform activity was seen. Patient currently on Lamictal 200 mg twice a day for psychiatric reasons, which will be continued. 3. Consider tilt table testing and/or autonomic testing 4. Agree with recommendations for Holter monitor/event monitor. 5. Recommend complete tobacco cessation. 6. Continue aspirin 81 mg and Lipitor 40 mg daily. 7. Hemoglobin A1c 9.3. Recommend optimize control of diabetes to target A1c <7.0 8. Lipid panel with cholesterol 198, LDL 93, HDL 40 and triglycerides 317. Continue Lipitor 40 mg daily. 9. B12 1748, folate 40, both normal.
[2022-10-08 12:25] LABS: Glucose,Whole Blood 240 mg/dL (70-110)
--- NOTE | 2022-10-08 13:28 | P.PN ---
Subjective Progress Note Date: 10/08/22 History of present illness: The patient is a very pleasant 52-year-old female patient with a past medical history significant for coronary artery disease with prior stenting of the LAD and diagonal RCA as well as history of stroke as well as hypertension and dyslipidemia and diabetes and smoking and multiple comorbid conditions. We requested to see the patient for further evaluation of syncope. The patient just was admitted to the hospital recently and she was seen by our service for syncope as well. We advise obtaining an event monitor. The patient stated that she did not have that done yet. This time she was in her usual state of health yesterday when she was sitting at home and suddenly she did have another episode of syncope. She stated that she did have some prodromal symptoms and she felt warm the 4 she lost her consciousness. No symptoms of heart racing or fluttering or dizziness or lightheadedness and no symptoms of chest pain or chest discomfort. She underwent further workup including computed tomography scan of the brain which showed no acute abnormalities. EKG showed sinus rhythm with no significant abnormalities as well. Cardiac enzymes came in to be unremarkable. The rest of workup came in to be unremarkable. The patient had no arrhythmia during her hospital stay. The most recent echocardiogram from 2021 showed normal biventricular systolic function was no significant valvular abnormalities. Recent stresses also came in to be unremarkable for ischemia. 10/08 Patient denies any new concerns today. front desk monitor has been a sinus rhythm, no arrhythmias noted. Repeat hemoglobin 8.6, BUN 20 creatinine 1.5. Alkaline phosphatase 136. Blood pressure 168/74. Heart rate in the 50s and 60s. Physical examination: Gen: This is a 52-year-old female. She is resting comfortably and appears to be in no acute distress VS: reviewed HEENT: Head is atraumatic, normocephalic. Pupils equal, round. Sclerae is anicteric. NECK: Supple. No JVD. LUNGS: Clear to auscultation. No wheezes or rhonchi. No intercostal retractions. HEART: Regular rate and rhythm. Systolic murmur. ABDOMEN: Soft. No masses. No tenderness. EXTREMITIES: No pedal edema. No calf tenderness. NEUROLOGICAL: Patient is awake, alert and oriented x3. Assessment #1 recurrent syncope, appears to me more likely seizure activity. Neurology is ruling out seizure. #2 coronary artery disease with prior revascularization #3 significant history of smoking and the patient continues to smoke #4 hypertension #5 dyslipidemia #6 diabetes #7 history of stroke #8 multiple comorbid condition Plan Continue neurologic workup No need for echo or stress is at this point in the light of recent testing came in to be unremarkable No further cardiac workup at this time, cardiology was follow on an as-needed basis. Patient will need follow-up appointment in the office.. Nurse practitioner note has been reviewed, I agree with documented findings and plan of care. Patient was seen and examined. Objective - Vital Signs Vital signs: Vital Signs Temp 98.6 F 10/08/22 02:56 Pulse 58 L 10/08/22 02:56 Resp 18 10/08/22 02:56 BP 175/68 10/08/22 02:56 Pulse Ox 100 10/08/22 07:11 FiO2 Intake & Output 10/07/22 10/08/22 10/08/22 18:59 06:59 18:59 Intake Total 474 Output Total 1 Balance 473 Intake: Oral 474 Output: Urine 1 Other: Voiding Method Bedside Commode # Voids 2 2 # Bowel Movements 1 - Labs CBC & Chem 7: 10/08/22 04:54 10/08/22 04:54 Labs: Abnormal Lab Results - Last 24 Hours (Table) 10/07/22 10/07/22 10/07/22 Range/Units 06:04 06:04 06:04 RBC 3.92 L (4.10-5.20) X 10*6/uL Hgb 8.0 L (12.0-15.0) g/dL Hct 29.4 L (37.2-46.3) % MCV 75.0 L (80.0-97.0) fL MCH 20.4 L (27.0-32.0) pg MCHC 27.2 L (32.0-37.0) g/dL RDW 19.4 H (11.5-14.5) % Anion Gap 9.40 L (10.00-18.00) mmol/L Est GFR (CKD-EPI)AfAm 50.3 L (60.0-200.0) Est GFR (CKD-EPI)NonAf 43.4 L (60.0-200.0) Glucose 116 H (70-110) mg/dL POC Glucose (mg/dL) (70-110) mg/dL Hemoglobin A1c (0.0-6.0) % Iron 12 L (50-170) ug/dL % Saturation 3.18 L (12.00-45.00) Vitamin B12 1748.0 H (200.0-944.0) pg/mL Folate (4.40-31.00) ng/mL 10/07/22 10/07/22 10/07/22 Range/Units 06:04 06:04 12:04 RBC (4.10-5.20) X 10*6/uL Hgb (12.0-15.0) g/dL Hct (37.2-46.3) % MCV (80.0-97.0) fL MCH (27.0-32.0) pg MCHC (32.0-37.0) g/dL RDW (11.5-14.5) % Anion Gap (10.00-18.00) mmol/L Est GFR (CKD-EPI)AfAm (60.0-200.0) Est GFR (CKD-EPI)NonAf (60.0-200.0) Glucose (70-110) mg/dL POC Glucose (mg/dL) 193 H (70-110) mg/dL Hemoglobin A1c 9.3 H (0.0-6.0) % Iron (50-170) ug/dL % Saturation (12.00-45.00) Vitamin B12 (200.0-944.0) pg/mL Folate 40.00 H (4.40-31.00) ng/mL 10/07/22 10/07/22 10/08/22 Range/Units 17:01 20:50 06:20 RBC (4.10-5.20) X 10*6/uL Hgb (12.0-15.0) g/dL Hct (37.2-46.3) % MCV (80.0-97.0) fL MCH (27.0-32.0) pg MCHC (32.0-37.0) g/dL RDW (11.5-14.5) % Anion Gap (10.00-18.00) mmol/L Est GFR (CKD-EPI)AfAm (60.0-200.0) Est GFR (CKD-EPI)NonAf (60.0-200.0) Glucose (70-110) mg/dL POC Glucose (mg/dL) 177 H 184 H 111 H (70-110) mg/dL Hemoglobin A1c (0.0-6.0) % Iron (50-170) ug/dL % Saturation (12.00-45.00) Vitamin B12 (200.0-944.0) pg/mL Folate (4.40-31.00) ng/mL
[2022-10-08 17:15] LABS: Glucose,Whole Blood 186 mg/dL (70-110)
--- NOTE | 2022-10-08 19:20 | P.DS ---
Providers Date of admission: 10/06/22 15:52 Expected date of discharge: 10/08/22 Attending physician: Evin Sanchez Consults: 10/06/22 15:52 Consult Physician Routine Consulting Provider: Jeri Cyr Consult Reason/Comments: chronic weakness. possible syncope. history of ms. Do you want consulting provider notified?: Yes 10/07/22 08:11 Consult Physician Routine Consulting Provider: Javon Cano Consult Reason/Comments: syncope Do you want consulting provider notified?: Yes Primary care physician: [facility] Course: Diagnosis on Discharge: Syncopal episode, cause is not entirely clear, neurology consultation and cardiology consultation requested, patient had similar presentation in June of this year Generalized weakness Dehydration with acute kidney injury Hyperkalemia, potassium 5.2 on presentation corrected Anemia, will check iron profile, vitamin B12 and folate levels and replace if necessary. 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 Underlying history of hypertension Underlying history of insulin-dependent diabetes mellitus Underlying history of hyperlipidemia Underlying history of depression with anxiety disorder Tobacco abuse patient was counseled to quit smoking during this admission Hospital course: Leticia Langley, is a 52-year-old female who presented to [facility] emergency room with a chief complaint of syncopal episode and generalized weakness She was evaluated in the emergency room vital examination on presentation revealed a temperature of 97.8 pulse 65 respiration 16 blood pressure 184/82 pulse ox 95% on room air Laboratory data revealed a white blood count of 9.3 hemoglobin 9.7 platelet count 245 sodium 136 potassium 5.2 BUN 28 creatinine 1.43 urine analysis showed no evidence of urinary tract infection, toxicology screen was positive for benzodiazepine, otherwise negative and serum alcohol was less than 10 Testing in the emergency room revealed computed tomography scan of the brain done in the emergency room without contrast revealed no acute intracranial process, remote injuries in the left basal ganglia and estevez Radiata unchanged from before, and nonspecific white matter changes. EKG revealed sinus rhythm with right bundle branch block and left anterior fascicular block. Patient was admitted to medical floor for further evaluation and treatment On 10/08/2022 patient was seen and examined on the medical floor she is alert and oriented 3 in no apparent distress she was evaluated by cardiology and neurology and was cleared for discharge cause of her syncopal episodes is not clear no further testing was recommended by cardiology or neurology as inpatient. Neurology are recommending possible tilt table test and possible treatment with midodrine as outpatient. Patient will follow with her primary care physician Dr. Hennessy within the next week referral to cardiology for further testing as outpatient is recommended. Patient Condition at Discharge: Stable Plan - Discharge Summary New Discharge Prescriptions: New Ferrous Sulfate [Feosol] 325 mg PO DAILY 30 Days #30 tab Ferrous Sulfate [Iron (65 MG Elemental)] 325 mg PO DAILY 30 Days #30 tab Continue Pregabalin [Lyrica] 150 mg PO BID lamoTRIgine 200 mg PO BID Magnesium Gluconate [Magonate] 500 mg PO HS Enalapril [Vasotec] 10 mg PO BID Aspirin [Adult Low Dose Aspirin EC] 81 mg PO HS DULoxetine HCL [Cymbalta] 60 mg PO DAILY Isosorbide Mononitrate ER [Imdur] 60 mg PO DAILY carvediloL [Coreg] 25 mg PO BID Insulin Glargine,Hum.rec.anlog [Lantus Solostar Pen] 30 unit SQ BID ARIPiprazole [Abilify] 2 mg PO DAILY ALPRAZolam [Xanax] 2 mg PO DAILY Pantoprazole Sodium [Protonix] 40 mg PO DAILY 30 Days #30 tab Insulin Lispro Protamin/Lispro [humaLOG Mix 75-25 Kwikpen] 30 unit SQ DAILY Insulin Lispro Protamin/Lispro [humaLOG Mix 75-25 Kwikpen] 25 unit SQ HS Citalopram Hydrobromide [CeleXA] 20 mg PO DAILY Albuterol Nebulized [Ventolin Nebulized] 2.5 mg INHALATION RT-QID PRN PRN Reason: Shortness Of Breath Famotidine 20 mg PO DAILY Nitroglycerin Sl Tabs [Nitrostat] 0.4 mg SL Q5M PRN PRN Reason: Chest Pain Ondansetron Odt [Zofran ODT] 8 mg PO TID PRN PRN Reason: Nausea Pioglitazone [Actos] 15 mg PO DAILY Promethazine [Phenergan] 25 mg PO Q6H PRN PRN Reason: Nausea Atorvastatin [Lipitor] 40 mg PO DAILY Cholecalciferol (Vitamin D3) [Vitamin D3 (125 MCG = 5,000 IU)] 125 mcg PO HS amLODIPine [Norvasc] 10 mg PO DAILY 30 Days #30 tab Empagliflozin [Jardiance] 10 mg PO DAILY Discontinued Vitamin B Complex 1 cap PO DAILY Folic Acid 1.6 mg PO HS Discharge Medication List Pregabalin [Lyrica] 150 mg PO BID 06/25/15 [History] lamoTRIgine 200 mg PO BID 07/30/16 [History] Magnesium Gluconate [Magonate] 500 mg PO HS 03/27/17 [History] Aspirin [Adult Low Dose Aspirin EC] 81 mg PO HS 11/26/17 [History] Enalapril [Vasotec] 10 mg PO BID 11/26/17 [History] DULoxetine HCL [Cymbalta] 60 mg PO DAILY 08/25/18 [History] Isosorbide Mononitrate ER [Imdur] 60 mg PO DAILY 09/08/18 [History] carvediloL [Coreg] 25 mg PO BID 01/22/19 [History] ARIPiprazole [Abilify] 2 mg PO DAILY 11/08/20 [History] Insulin Glargine,Hum.rec.anlog [Lantus Solostar Pen] 30 unit SQ BID 11/08/20 [History] ALPRAZolam [Xanax] 2 mg PO DAILY 07/31/21 [History] Atorvastatin [Lipitor] 40 mg PO DAILY 07/31/21 [History] Cholecalciferol (Vitamin D3) [Vitamin D3 (125 MCG = 5,000 IU)] 125 mcg PO HS 07/31/21 [History] amLODIPine [Norvasc] 10 mg PO DAILY 30 Days #30 tab 01/17/22 [Rx] Pantoprazole Sodium [Protonix] 40 mg PO DAILY 30 Days #30 tab 03/20/22 [Rx] Insulin Lispro Protamin/Lispro [humaLOG Mix 75-25 Kwikpen] 25 unit SQ HS 07/20/22 [History] Insulin Lispro Protamin/Lispro [humaLOG Mix 75-25 Kwikpen] 30 unit SQ DAILY 07/20/22 [History] Citalopram Hydrobromide [CeleXA] 20 mg PO DAILY 09/01/22 [History] Albuterol Nebulized [Ventolin Nebulized] 2.5 mg INHALATION RT-QID PRN 10/06/22 [History] Empagliflozin [Jardiance] 10 mg PO DAILY 10/06/22 [History] Famotidine 20 mg PO DAILY 10/06/22 [History] Nitroglycerin Sl Tabs [Nitrostat] 0.4 mg SL Q5M PRN 10/06/22 [History] Ondansetron Odt [Zofran ODT] 8 mg PO TID PRN 10/06/22 [History] Pioglitazone [Actos] 15 mg PO DAILY 10/06/22 [History] Promethazine [Phenergan] 25 mg PO Q6H PRN 10/06/22 [History] Ferrous Sulfate [Feosol] 325 mg PO DAILY 30 Days #30 tab 10/08/22 [Rx] Ferrous Sulfate [Iron (65 MG Elemental)] 325 mg PO DAILY 30 Days #30 tab 10/08/22 [Rx] Follow up Appointment(s)/Referral(s): Dagmar Hennessy MD [Primary Care Provider] - 1-2 days Curt Jasso MD [STAFF PHYSICIAN] - 2 Weeks
[2022-10-08 19:47] VITALS: BP 149/75; PULSE 66; RESP 17; TEMP 97.5
--- NOTE | 2022-10-08 20:20 | EEG ---
ELECTROENCEPHALOGRAM REPORT PREAMBLE: This is a 52-year-old female with syncopal spell versus seizure. This study is performed to evaluate for any epileptiform activity. EEG FINDINGS: This is a 21-channel digital EEG recorded with video component, utilizing 10/20 international system with referential and bipolar montages. Background consists of well developed, well regulated moderate voltage activity in 8 hertz alpha. Background is posterior dominant and reactive to eye opening and closing. Photic driving response was not clearly seen. Some drowsiness and stage 2 sleep was seen with presence of bilaterally symmetric theta frequency rhythm and some sleep spindles were seen. No focal or generalized epileptiform activity was seen. IMPRESSION: This is a normal EEG during wakefulness, drowsiness, and some stage 2 sleep. No definitive epileptiform activity was seen. MMODL / IJN: [id number] /
== END 2022-10-08 19:53 | disposition home or self-care (01) ==
LOC: EC 13:37 → 6NMEDSUR 15:52
PROVIDERS: ADMIT Internal Medicine; ATTEND Internal Medicine
DX: R55 Syncope and collapse (principal); E86.0 Dehydration; N17.9 Acute kidney failure, unspecified; D50.9 Iron deficiency anemia, unspecified; E87.5 Hyperkalemia; G31.9 Degenerative disease of nervous system, unspecified; I67.2 Cerebral atherosclerosis; G35 Multiple sclerosis; M79.7 Fibromyalgia; I69.351 Hemiplegia and hemiparesis following cerebral infarction affecting right dominant side; I10 Essential (primary) hypertension; I25.2 Old myocardial infarction; I25.10 Atherosclerotic heart disease of native coronary artery without angina pectoris; E11.51 Type 2 diabetes mellitus with diabetic peripheral angiopathy without gangrene; K21.9 Gastro-esophageal reflux disease without esophagitis; G25.81 Restless legs syndrome; E78.5 Hyperlipidemia, unspecified; F17.200 Nicotine dependence, unspecified, uncomplicated; F32.A Depression, unspecified; F41.8 Other specified anxiety disorders; I45.2 Bifascicular block; Z85.43 Personal history of malignant neoplasm of ovary; Z90.49 Acquired absence of other specified parts of digestive tract; Z95.5 Presence of coronary angioplasty implant and graft; Z79.899 Other long term (current) drug therapy; Z79.82 Long term (current) use of aspirin; Z82.49 Family history of ischemic heart disease and other diseases of the circulatory system; Z79.4 Long term (current) use of insulin; Z79.84 Long term (current) use of oral hypoglycemic drugs; Z88.2 Allergy status to sulfonamides; Z90.710 Acquired absence of both cervix and uterus; Z86.718 Personal history of other venous thrombosis and embolism; Z98.51 Tubal ligation status; Z83.3 Family history of diabetes mellitus; Z82.5 Family history of asthma and other chronic lower respiratory diseases; Z80.0 Family history of malignant neoplasm of digestive organs
CPT/HCPCS: 96361 ×2; 96372 ×3; 96360; 99285; 36415; 94760 ×2; 95819; 93005; 80053 ×2; 80048; 82607; 82140; 82746; 83540; 83550; 84484; 85025 ×3; 85610; 85730; 81001; 87040; 80306; 83036; 71046; 70450; G0378 ×3; G0480; J1644 ×3; 80320

== ENCOUNTER 2022-10-16 09:13 | Observation (INO) | payer OTHER ==
[2022-10-16] MEDS ORDERED: SODIUM CHLORIDE 0.9% 500 ML 500 ML IV STA (09:26)
[2022-10-16 09:57] LABS: Anisocytosis Moderate; Basophils # (A) 0.1 k/uL (0-0.2); Basophils % (A) 1 %; Eosinophils # (A) 0.2 k/uL (0-0.7); Eosinophils % (A) 2 %; HCT 34.8 % (34.0-46.0); HGB 10.3 gm/dL (11.4-16.0); Hypochromasia Marked; Lymphocytes # (A) 3.3 k/uL (1.0-4.8); Lymphocytes % (A) 23 %; MCH 21.7 pg (25.0-35.0); MCHC 29.6 g/dL (31.0-37.0); MCV 73.3 fL (80.0-100.0); Mean Platelet Volume 8.3; Microcytosis Moderate; Monocytes # (A) 0.6 k/uL (0-1.0); Monocytes % (A) 4 %; Neutrophils # (A) 10.1 k/uL (1.3-7.7); Neutrophils % (A) 69 %; Platelet Count 336 k/uL (150-450); Poikilocytosis Slight; RBC 4.75 m/uL (3.80-5.40); RDW 20.3 % (11.5-15.5); WBC 14.6 k/uL (3.8-10.6)
--- NOTE | 2022-10-16 10:07 | XR ---
EXAMINATION TYPE: XR chest 2V DATE OF EXAM: 10/16/2022 10:02 AM COMPARISON: Chest radiographs from 10/06/2022 TECHNIQUE: XR chest 2V Frontal and lateral views of the chest. CLINICAL INDICATION:Female, 52 years old with history of Weakness; FINDINGS: Lungs/Pleura: There is no evidence of pleural effusion, focal consolidation, or pneumothorax. Pulmonary vascularity: Unremarkable. Heart/mediastinum: Cardiomediastinal silhouette is unremarkable. Musculoskeletal: Multiple level degenerative disc disease changes seen throughout the spine. IMPRESSION: No acute cardiopulmonary disease/process. No significant change from prior examination.
[2022-10-16 10:10] LABS: Albumin 3.5 g/dL (3.5-5.0); Calcium 9.4 mg/dL (8.4-10.2); Magnesium 2.2 mg/dL (1.6-2.3); Phosphorus 5.1 mg/dL (2.5-4.5); Potassium 4.3 mmol/L (3.5-5.1); Total Bilirubin 0.3 mg/dL (0.2-1.3); Total Protein 5.7 g/dL (6.3-8.2)
[2022-10-16 10:15] LABS: Partial Thromboplastin Time 27.6 sec (22.0-30.0); Prothrombin Time 10.7 sec (9.0-12.0)
[2022-10-16 10:22] LABS: Appearance,Urine Clear (Clear); Bilirubin,Urine Negative (Negative); Blood,Urine Negative (Negative); Color,Urine Yellow; Glucose,Urine (UA) 4+ (Negative); Ketones,Urine Negative (Negative); Leukocyte Esterase,Urine Negative (Negative); Mucus,Urine Rare /hpf; Nitrite,Urine Negative (Negative); PH, Urine 5.5 (5.0-8.0); Protein,Urine 2+ (Negative); RBC,Urine <1 /hpf (0-5); Specific Gravity,Urine 1.006 (1.001-1.035); Squamous Epithelial Cell,Urine <1 /hpf (0-4); Urobilinogen,Urine <2.0 mg/dL (<2.0); WBC,Urine 1 /hpf (0-5)
--- NOTE | 2022-10-16 11:24 | ED ---
Weakness HPI - General Chief complaint: Weakness Stated complaint: weakness Time Seen by Provider: 10/16/22 09:21 Source: patient, RN notes reviewed Mode of arrival: ambulatory Limitations: no limitations - History of Present Illness Initial comments: 52-year-old female presents emergency from via EMS from home chief complaint weakness. Patient has been worked up inpatient and outpatient for recurrent syncopal episodes. Patient's had an episode today in which she but arrival of EMS patient's was arousable and became alert. Patient herself states that she has no focal weakness with complaints of dizziness weak and states that she's having MS exacerbation. Patient has no complaints of headache she has right- sided deficits from prior CVA 2014. Patient denies developing doesn't nausea she states she has diffuse chronic pain. She was hospitalized and discharge of recent. - Related Data Home Medications Medication Instructions Recorded Confirmed Pregabalin [Lyrica] 150 mg PO BID 06/25/15 10/16/22 lamoTRIgine 200 mg PO BID 07/30/16 10/16/22 Magnesium Gluconate [Magonate] 500 mg PO HS 03/27/17 10/16/22 Aspirin [Adult Low Dose Aspirin EC] 81 mg PO HS 11/26/17 10/16/22 Enalapril [Vasotec] 10 mg PO BID 11/26/17 10/16/22 DULoxetine HCL [Cymbalta] 60 mg PO DAILY 08/25/18 10/16/22 Isosorbide Mononitrate ER [Imdur] 60 mg PO DAILY 09/08/18 10/16/22 carvediloL [Coreg] 25 mg PO BID 01/22/19 10/16/22 ARIPiprazole [Abilify] 2 mg PO DAILY 11/08/20 10/16/22 Insulin Glargine,Hum.rec.anlog 30 unit SQ BID 11/08/20 10/16/22 [Lantus Solostar Pen] ALPRAZolam [Xanax] 2 mg PO DAILY 07/31/21 10/16/22 Atorvastatin [Lipitor] 40 mg PO DAILY 07/31/21 10/16/22 Cholecalciferol (Vitamin D3) 125 mcg PO HS 07/31/21 10/16/22 [Vitamin D3 (125 MCG = 5,000 IU)] Insulin Lispro Protamin/Lispro 25 unit SQ HS 07/20/22 10/16/22 [humaLOG Mix 75-25 Kwikpen] Insulin Lispro Protamin/Lispro 30 unit SQ DAILY 07/20/22 10/16/22 [humaLOG Mix 75-25 Kwikpen] Citalopram Hydrobromide [CeleXA] 20 mg PO DAILY 09/01/22 10/16/22 Albuterol Nebulized [Ventolin 2.5 mg INHALATION RT-QID PRN 10/06/22 10/16/22 Nebulized] Empagliflozin [Jardiance] 10 mg PO DAILY 10/06/22 10/16/22 Famotidine 20 mg PO DAILY 10/06/22 10/16/22 Nitroglycerin Sl Tabs [Nitrostat] 0.4 mg SL Q5M PRN 10/06/22 10/16/22 Ondansetron Odt [Zofran ODT] 8 mg PO TID PRN 10/06/22 10/16/22 Pioglitazone [Actos] 15 mg PO DAILY 10/06/22 10/16/22 Promethazine [Phenergan] 25 mg PO Q6H PRN 10/06/22 10/16/22 Previous Rx's Medication Instructions Recorded amLODIPine [Norvasc] 10 mg PO DAILY 30 Days #30 tab 01/17/22 Pantoprazole Sodium [Protonix] 40 mg PO DAILY 30 Days #30 tab 03/20/22 Ferrous Sulfate [Iron (65 MG 325 mg PO DAILY 30 Days #30 tab 10/08/22 Elemental)] Allergies Allergy/AdvReac Type Severity Reaction Status Date / Time Fish Containing Products Allergy Anaphylaxis Verified 10/16/22 11:46 Iodinated Contrast Media Allergy Anaphylaxis Verified 10/16/22 11:46 [Iodinated Contrast Media - IV Dye] Sulfa (Sulfonamide Allergy Anaphylaxis Verified 10/16/22 11:46 Antibiotics) sulfamethoxazole Allergy Anaphylaxis Verified 10/16/22 11:46 [From Septra] tree nut [Nut] Allergy Anaphylaxis Verified 10/16/22 11:46 trimethoprim [From Septra] Allergy Anaphylaxis Verified 10/16/22 11:46 Review of Systems ROS Statement: Those systems with pertinent positive or pertinent negative responses have been documented in the HPI. ROS Other: All systems not noted in ROS Statement are negative. Past Medical History Past Medical History: Blood Disorder, Coronary Artery Disease (CAD), Cancer, [address] Pain / Angina, CVA/TIA, Diabetes Mellitus, Deep Vein Thrombosis (DVT), Fibromyalgia, GERD/Reflux, Hyperlipidemia, Hypertension, Myocardial Infarction (RI), Musculoskeletal Disorder, Neurologic Disorder, Sleep Apnea/CPAP/BIPAP, Vascular Disorder Additional Past Medical History / Comment(s): IDDM type II, uterine/cervical and ovarian cancer, restless leg, Factor V blood disorder, DVT R leg, 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 - slight foot drag when tired/neuropathies, MS, RI X 5, ABIGAIL with Cpap use, PAD/legs, R leg edema, past pancreatitis. Last Myocardial Infarction Date:: Pt thinks 2015 History of Any Multi-Drug Resistant Organisms: None Reported Past Surgical History: Section, Cholecystectomy, Heart Catheterization With Stent, Hysterectomy, Tubal Ligation, Uterine Ablation Additional Past Surgical History / Comment(s): vein stripping right leg, radio frequency ablation of right back-02/22/2015, four stents on 04/03/16 and one on march 05, ovaries removed, colonscopy- polyp removal Past Anesthesia/Blood Transfusion Reactions: Motion Sickness Additional Past Anesthesia/Blood Transfusion Reaction / Comment(s): mild claustrophobia Date of Last Stent Placement:: 04/03/16 Past Psychological History: Anxiety, Depression Smoking Status: Current every day smoker Past Alcohol Use History: None Reported Past Drug Use History: None Reported - Past Family History Father Family Medical History: Congestive Heart Failure (CHF), Coronary Artery Disease (CAD), Diabetes Mellitus Mother Family Medical History: Cancer, COPD, Hypertension, Respiratory Disorder Additional Family Medical History / Comment(s): emphysema, colon CA General Exam Limitations: no limitations General appearance: alert, in no apparent distress Head exam: Present: atraumatic, normocephalic, normal inspection Eye exam: Present: normal appearance, PERRL, EOMI. Absent: scleral icterus, conjunctival injection, periorbital swelling ENT exam: Present: normal exam, normal oropharynx, mucous membranes moist Neck exam: Present: normal inspection, full ROM. Absent: tenderness, meningismus, lymphadenopathy Respiratory exam: Present: normal lung sounds bilaterally. Absent: respiratory distress, wheezes, rales, rhonchi, stridor Cardiovascular Exam: Present: regular rate, normal rhythm, normal heart sounds. Absent: systolic murmur, diastolic murmur, rubs, gallop, clicks GI/Abdominal exam: Present: soft, normal bowel sounds. Absent: distended, tenderness, guarding, rebound, rigid Extremities exam: Present: other (Right arm weakness, right leg weakness this is chronic unchanged per patient) Neurological exam: Present: alert, oriented X3, CN II-XII intact, reflexes normal. Absent: motor sensory deficit Skin exam: Present: warm, dry, intact, normal color. Absent: rash Course Vital Signs 10/16/22 10/16/22 10/16/22 09:14 09:44 10:00 Temperature 98 F Pulse Rate 64 62 Respiratory 18 18 18 Rate Blood Pressure 152/73 152/73 172/85 O2 Sat by Pulse 100 97 Oximetry 10/16/22 10/16/22 10:30 11:00 Temperature Pulse Rate 62 60 Respiratory 18 18 Rate Blood Pressure 172/83 160/73 O2 Sat by Pulse 92 L 88 L Oximetry EKG Findings - EKG Comments: EKG Findings:: EKG performed at an: 29 sinus rhythm right bundle rate of 62 LA 170 QS 22 QT/QTC 448/454 - EKG Results: EKG: interpreted by GABO Medical Decision Making - Medical Decision Making 52-year-old female presented for recurrent syncopal episode patient had recent workup for this. Patient states that she's having MS exacerbation with increasing extremity weakness. Patient was given this steroids will be admitted to Dr. Sanchez with consult to neurology - Lab Data Result diagrams: 10/16/22 09:32 10/16/22 09:32 Lab Results 10/16/22 10/16/22 10/16/22 Range/Units 09:32 09:32 09:32 WBC 14.6 H (3.8-10.6) k/uL RBC 4.75 (3.80-5.40) m/uL Hgb 10.3 L (11.4-16.0) gm/dL Hct 34.8 (34.0-46.0) % MCV 73.3 L (80.0-100.0) fL MCH 21.7 L (25.0-35.0) pg MCHC 29.6 L (31.0-37.0) g/dL RDW 20.3 H (11.5-15.5) % Plt Count 336 (150-450) k/uL MPV 8.3 Neutrophils % 69 % Lymphocytes % 23 % Monocytes % 4 % Eosinophils % 2 % Basophils % 1 % Neutrophils # 10.1 H (1.3-7.7) k/uL Lymphocytes # 3.3 (1.0-4.8) k/uL Monocytes # 0.6 (0-1.0) k/uL Eosinophils # 0.2 (0-0.7) k/uL Basophils # 0.1 (0-0.2) k/uL Hypochromasia Marked Poikilocytosis Slight Anisocytosis Moderate Microcytosis Moderate PT 10.7 (9.0-12.0) sec INR 1.0 (<1.2) APTT 27.6 (22.0-30.0) sec Sodium 135 L (137-145) mmol/L Potassium 4.3 (3.5-5.1) mmol/L Chloride 104 (98-107) mmol/L Carbon Dioxide 23 (22-30) mmol/L Anion Gap 8 mmol/L BUN 37 H (7-17) mg/dL Creatinine 1.73 H (0.52-1.04) mg/dL Est GFR (CKD-EPI)AfAm 39 (>60 ml/min/1.73 sqM) Est GFR (CKD-EPI)NonAf 34 (>60 ml/min/1.73 sqM) Glucose 119 H (74-99) mg/dL POC Glucose (mg/dL) (70-110) mg/dL POC Glu Family Preservation Caseworker ID Plasma Lactic Acid Faheem (0.7-2.0) mmol/L Calcium 9.4 (8.4-10.2) mg/dL Phosphorus 5.1 H (2.5-4.5) mg/dL Magnesium 2.2 (1.6-2.3) mg/dL Total Bilirubin 0.3 (0.2-1.3) mg/dL AST 22 (14-36) U/L ALT 20 (4-34) U/L Alkaline Phosphatase 118 (38-126) U/L Troponin I (0.000-0.034) ng/mL Total Protein 5.7 L (6.3-8.2) g/dL Albumin 3.5 (3.5-5.0) g/dL Urine Color Urine Appearance (Clear) Urine pH (5.0-8.0) Ur Specific Huger (1.001-1.035) Urine Protein (Negative) Urine Glucose (UA) (Negative) Urine Ketones (Negative) Urine Blood (Negative) Urine Nitrite (Negative) Urine Bilirubin (Negative) Urine Urobilinogen (<2.0) mg/dL Ur Leukocyte Esterase (Negative) Urine RBC (0-5) /hpf Urine WBC (0-5) /hpf Ur Squamous Epith Cells (0-4) /hpf Urine Mucus (None) /hpf 10/16/22 10/16/22 10/16/22 Range/Units 09:32 09:32 10:12 WBC (3.8-10.6) k/uL RBC (3.80-5.40) m/uL Hgb (11.4-16.0) gm/dL Hct (34.0-46.0) % MCV (80.0-100.0) fL MCH (25.0-35.0) pg MCHC (31.0-37.0) g/dL RDW (11.5-15.5) % Plt Count (150-450) k/uL MPV Neutrophils % % Lymphocytes % % Monocytes % % Eosinophils % % Basophils % % Neutrophils # (1.3-7.7) k/uL Lymphocytes # (1.0-4.8) k/uL Monocytes # (0-1.0) k/uL Eosinophils # (0-0.7) k/uL Basophils # (0-0.2) k/uL Hypochromasia Poikilocytosis Anisocytosis Microcytosis PT (9.0-12.0) sec INR (<1.2) APTT (22.0-30.0) sec Sodium (137-145) mmol/L Potassium (3.5-5.1) mmol/L Chloride (98-107) mmol/L Carbon Dioxide (22-30) mmol/L Anion Gap mmol/L BUN (7-17) mg/dL Creatinine (0.52-1.04) mg/dL Est GFR (CKD-EPI)AfAm (>60 ml/min/1.73 sqM) Est GFR (CKD-EPI)NonAf (>60 ml/min/1.73 sqM) Glucose (74-99) mg/dL POC Glucose (mg/dL) (70-110) mg/dL POC Glu Family Preservation Caseworker ID Plasma Lactic Acid Faheem 1.2 (0.7-2.0) mmol/L Calcium (8.4-10.2) mg/dL Phosphorus (2.5-4.5) mg/dL Magnesium (1.6-2.3) mg/dL Total Bilirubin (0.2-1.3) mg/dL AST (14-36) U/L ALT (4-34) U/L Alkaline Phosphatase (38-126) U/L Troponin I <0.012 (0.000-0.034) ng/mL Total Protein (6.3-8.2) g/dL Albumin (3.5-5.0) g/dL Urine Color Yellow Urine Appearance Clear (Clear) Urine pH 5.5 (5.0-8.0) Ur Specific Huger 1.006 (1.001-1.035) Urine Protein 2+ H (Negative) Urine Glucose (UA) 4+ H (Negative) Urine Ketones Negative (Negative) Urine Blood Negative (Negative) Urine Nitrite Negative (Negative) Urine Bilirubin Negative (Negative) Urine Urobilinogen <2.0 (<2.0) mg/dL Ur Leukocyte Esterase Negative (Negative) Urine RBC <1 (0-5) /hpf Urine WBC 1 (0-5) /hpf Ur Squamous Epith Cells <1 (0-4) /hpf Urine Mucus Rare H (None) /hpf 10/16/22 Range/Units 11:40 WBC (3.8-10.6) k/uL RBC (3.80-5.40) m/uL Hgb (11.4-16.0) gm/dL Hct (34.0-46.0) % MCV (80.0-100.0) fL MCH (25.0-35.0) pg MCHC (31.0-37.0) g/dL RDW (11.5-15.5) % Plt Count (150-450) k/uL MPV Neutrophils % % Lymphocytes % % Monocytes % % Eosinophils % % Basophils % % Neutrophils # (1.3-7.7) k/uL Lymphocytes # (1.0-4.8) k/uL Monocytes # (0-1.0) k/uL Eosinophils # (0-0.7) k/uL Basophils # (0-0.2) k/uL Hypochromasia Poikilocytosis Anisocytosis Microcytosis PT (9.0-12.0) sec INR (<1.2) APTT (22.0-30.0) sec Sodium (137-145) mmol/L Potassium (3.5-5.1) mmol/L Chloride (98-107) mmol/L Carbon Dioxide (22-30) mmol/L Anion Gap mmol/L BUN (7-17) mg/dL Creatinine (0.52-1.04) mg/dL Est GFR (CKD-EPI)AfAm (>60 ml/min/1.73 sqM) Est GFR (CKD-EPI)NonAf (>60 ml/min/1.73 sqM) Glucose (74-99) mg/dL POC Glucose (mg/dL) 69 L (70-110) mg/dL POC Glu Family Preservation Caseworker ID Rayne Herrera Plasma Lactic Acid Faheem (0.7-2.0) mmol/L Calcium (8.4-10.2) mg/dL Phosphorus (2.5-4.5) mg/dL Magnesium (1.6-2.3) mg/dL Total Bilirubin (0.2-1.3) mg/dL AST (14-36) U/L ALT (4-34) U/L Alkaline Phosphatase (38-126) U/L Troponin I (0.000-0.034) ng/mL Total Protein (6.3-8.2) g/dL Albumin (3.5-5.0) g/dL Urine Color Urine Appearance (Clear) Urine pH (5.0-8.0) Ur Specific Huger (1.001-1.035) Urine Protein (Negative) Urine Glucose (UA) (Negative) Urine Ketones (Negative) Urine Blood (Negative) Urine Nitrite (Negative) Urine Bilirubin (Negative) Urine Urobilinogen (<2.0) mg/dL Ur Leukocyte Esterase (Negative) Urine RBC (0-5) /hpf Urine WBC (0-5) /hpf Ur Squamous Epith Cells (0-4) /hpf Urine Mucus (None) /hpf Disposition Clinical Impression: Multiple sclerosis exacerbation, Syncope, Weakness Disposition: ADMITTED IP TO THIS [facility] Condition: Poor Referrals: Dagmar Hennessy MD [Primary Care Provider] - 1-2 days Time of Disposition: 11:39
[2022-10-16 11:52] LABS: Glucose,Whole Blood 69 mg/dL (70-110)
[2022-10-16] MEDS ORDERED: methylPREDNISolone SOD SUCCIN 1,000 MG in SODIUM CHLORIDE 0.9% 250 ML IVPB STA (12:00)
[2022-10-16] MEDS ORDERED: ACETAMINOPHEN TAB 325 MG TAB PO PRN (12:13)
[2022-10-16] MEDS ORDERED: NALOXONE 0.4 MG/ML 1 ML VIAL IV PRN (12:13)
[2022-10-16] MEDS ORDERED: ONDANSETRON ODT 8 MG TAB.RAPDIS PO PRN (12:17)
[2022-10-16] MEDS ORDERED: PROMETHAZINE 25 MG TAB PO PRN (12:17)
[2022-10-16] MEDS ORDERED: ALBUTEROL NEBULIZED 2.5 MG/3 ML INHALATION PRN (12:17)
[2022-10-16] MEDS: SODIUM CHLORIDE 0.9% 1,000 ML IV SCH (14:01)
[2022-10-16 14:06] LABS: Glucose,Whole Blood 68 mg/dL (70-110)
[2022-10-16] MEDS ORDERED: DEXTROSE 50% SYRINGE 50 ML IVP STA (14:20)
[2022-10-16 14:50] LABS: Glucose,Whole Blood 188 mg/dL (70-110)
[2022-10-16 17:13] LABS: Glucose,Whole Blood 136 mg/dL (70-110)
[2022-10-16] MEDS: carvediloL 12.5 MG TAB PO SCH (17:29)
[2022-10-16] MEDS: PREGABALIN 75 MG CAP PO SCH (20:49)
[2022-10-16] MEDS: lamoTRIgine 100 MG TAB PO SCH (20:49)
[2022-10-16] MEDS: MAGNESIUM OXIDE 400 MG TAB PO SCH (20:49)
[2022-10-16] MEDS: ASPIRIN 81 MG PO SCH (20:50)
[2022-10-16 20:59] LABS: Glucose,Whole Blood 295 mg/dL (70-110)
[2022-10-16] MEDS: INSULIN DETEMIR (LEVEMIR) 100 UNIT/ML SYR SQ SCH (21:00)
[2022-10-16] MEDS: INSULN ASP PRT/INSULIN ASPART 100 UNIT/ML 10 ML VIAL SQ SCH (21:00)
[2022-10-17] MEDS: SODIUM CHLORIDE 0.9% 1,000 ML IV SCH ×2 (03:00→18:20)
[2022-10-17] MEDS: PANTOPRAZOLE 40 MG TABLET PO SCH (06:19)
[2022-10-17] MEDS: carvediloL 12.5 MG TAB PO SCH ×2 (06:19→18:24)
[2022-10-17 08:04] LABS: Glucose,Whole Blood 305 mg/dL (70-110)
[2022-10-17] MEDS: lamoTRIgine 100 MG TAB PO SCH ×2 (08:39→21:23)
[2022-10-17] MEDS: DULoxetine HCL 60 MG CAPSULE.DR PO SCH (08:39)
[2022-10-17] MEDS: lisinopriL 20 MG TAB PO SCH (08:39)
[2022-10-17] MEDS: ATORVASTATIN 40 MG TAB PO SCH (08:39)
[2022-10-17] MEDS: PREGABALIN 75 MG CAP PO SCH ×2 (08:39→21:23)
[2022-10-17] MEDS: amLODIPine 10 MG TAB PO SCH (08:39)
[2022-10-17] MEDS: FERROUS SULFATE 325 MG TAB PO SCH (08:39)
[2022-10-17] MEDS: FAMOTIDINE 20 MG TAB PO SCH (08:39)
[2022-10-17] MEDS: PIOGLITAZONE 15 MG TAB PO SCH (08:40)
[2022-10-17] MEDS: INSULIN DETEMIR (LEVEMIR) 100 UNIT/ML SYR SQ SCH ×2 (08:41→21:22)
[2022-10-17] MEDS: INSULN ASP PRT/INSULIN ASPART 100 UNIT/ML 10 ML VIAL SQ SCH ×2 (08:41→21:22)
[2022-10-17] MEDS: CITALOPRAM HYDROBROMIDE 20 MG TAB PO SCH (08:58)
[2022-10-17] MEDS ORDERED: DAPAGLIFLOZIN PROPANEDIOL 5 MG TABLET PO SCH (09:00)
[2022-10-17] MEDS ORDERED: ALPRAZolam 1 MG TAB PO SCH ×2 (09:00→21:00)
[2022-10-17 10:17] LABS: HGB 9.9 g/dL (12.0-15.0); MCH 20.7 pg (27.0-32.0); MCHC 28.3 g/dL (32.0-37.0); MCV 73.2 fL (80.0-97.0); Mean Platelet Volume 10.9 fL (9.5-12.2); NRBC Per 100 WBC 0 /100 WBCS (0.0-0.0); Platelet Count 419 X 10*3/uL (140-440); RBC 4.78 X 10*6/uL (4.10-5.20); RDW 22.6 % (11.5-14.5); WBC 16.32 X 10*3/uL (4.50-10.00)
[2022-10-17] MEDS: ARIPiprazole 2 MG TAB PO SCH (10:32)
--- NOTE | 2022-10-17 10:33 | P.HPIM ---
History of Present Illness H&P Date: 10/16/22 Leticia Langley is a 52-year-old female who presented to [facility] emergency room with a chief complaint of weakness and recurrent syncopal episodes in which patient reports that she believes is from MS exacerbation. Patient does have known right-sided deficits from CVA in 2014 She was evaluated in the emergency room vital examination on presentation revealed. Chest x-ray showing no acute cardiopulmonary disease no significant change from prior exam Patient was admitted to medical floor for further evaluation and treatment Past medical history is significant for coronary artery disease, chest pain, CVA, diabetes mellitus, DVT, fibromyalgia, GERD, hyperlipidemia, hypertension, sleep apnea, anxiety, depression and cholecystectomy On review of systems patient is currently resting comfortably in bed. Patient reports generalized weakness and dizziness. Patient denies chest pain or shortness breath. Patient denies nausea vomiting or diarrhea. Patient denies any urinary burning or frequency. Neurology services have been consulted. 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 Last Myocardial Infarction Date:: Pt thinks 2015 History of Any Multi-Drug Resistant Organisms: None Reported Past Surgical History: Section, Cholecystectomy, Heart Catheterization With Stent, Hysterectomy, Tubal Ligation, Uterine Ablation Additional Past Surgical History / Comment(s): vein stripping right leg, radio frequency ablation of right back-02/22/2015, four stents on 04/03/16 and one on march 05, ovaries removed, colonscopy- polyp removal Past Anesthesia/Blood Transfusion Reactions: Motion Sickness Additional Past Anesthesia/Blood Transfusion Reaction / Comment(s): mild claustrophobia Date of Last Stent Placement:: 04/03/16 Past Psychological History: Anxiety, Depression Additional Psychological History / Comment(s): Pt resides with her spouse. She is mostly in her wheelchair. She has a walker and cane. She has a dexcom. Her spouse assists her with her medication organization. Spouse also drives pt. Smoking Status: Current every day smoker Past Alcohol Use History: None Reported Additional Past Alcohol Use History / Comment(s): Pt started smoking in 1988 and is alittle less than a ppd smoker. Past Drug Use History: None Reported - Past Family History Father Family Medical History: Congestive Heart Failure (CHF), Coronary Artery Disease (CAD), Diabetes Mellitus Mother Family Medical History: Cancer, COPD, Hypertension, Respiratory Disorder Additional Family Medical History / Comment(s): emphysema, colon CA Medications and Allergies Home Medications Medication Instructions Recorded Confirmed Type Pregabalin [Lyrica] 150 mg PO BID 06/25/15 10/16/22 History lamoTRIgine 200 mg PO BID 07/30/16 10/16/22 History Magnesium Gluconate [Magonate] 500 mg PO HS 03/27/17 10/16/22 History Aspirin [Adult Low Dose Aspirin EC] 81 mg PO HS 11/26/17 10/16/22 History Enalapril [Vasotec] 10 mg PO BID 11/26/17 10/16/22 History DULoxetine HCL [Cymbalta] 60 mg PO DAILY 08/25/18 10/16/22 History Isosorbide Mononitrate ER [Imdur] 60 mg PO DAILY 09/08/18 10/16/22 History carvediloL [Coreg] 25 mg PO BID 01/22/19 10/16/22 History ARIPiprazole [Abilify] 2 mg PO DAILY 11/08/20 10/16/22 History Insulin Glargine,Hum.rec.anlog 30 unit SQ BID 11/08/20 10/16/22 History [Lantus Solostar Pen] ALPRAZolam [Xanax] 2 mg PO DAILY 07/31/21 10/16/22 History Atorvastatin [Lipitor] 40 mg PO DAILY 07/31/21 10/16/22 History Cholecalciferol (Vitamin D3) 125 mcg PO HS 07/31/21 10/16/22 History [Vitamin D3 (125 MCG = 5,000 IU)] amLODIPine [Norvasc] 10 mg PO DAILY 30 Days #30 tab 01/17/22 10/16/22 Rx Pantoprazole Sodium [Protonix] 40 mg PO DAILY 30 Days #30 tab 03/20/22 10/16/22 Rx Insulin Lispro Protamin/Lispro 25 unit SQ HS 07/20/22 10/16/22 History [humaLOG Mix 75-25 Kwikpen] Insulin Lispro Protamin/Lispro 30 unit SQ DAILY 07/20/22 10/16/22 History [humaLOG Mix 75-25 Kwikpen] Citalopram Hydrobromide [CeleXA] 20 mg PO DAILY 09/01/22 10/16/22 History Albuterol Nebulized [Ventolin 2.5 mg INHALATION RT-QID PRN 10/06/22 10/16/22 History Nebulized] Empagliflozin [Jardiance] 10 mg PO DAILY 10/06/22 10/16/22 History Famotidine 20 mg PO DAILY 10/06/22 10/16/22 History Nitroglycerin Sl Tabs [Nitrostat] 0.4 mg SL Q5M PRN 10/06/22 10/16/22 History Ondansetron Odt [Zofran ODT] 8 mg PO TID PRN 10/06/22 10/16/22 History Pioglitazone [Actos] 15 mg PO DAILY 10/06/22 10/16/22 History Promethazine [Phenergan] 25 mg PO Q6H PRN 10/06/22 10/16/22 History Ferrous Sulfate [Iron (65 MG 325 mg PO DAILY 30 Days #30 tab 10/08/22 10/16/22 Rx Elemental)] Allergies Allergy/AdvReac Type Severity Reaction Status Date / Time Fish Containing Products Allergy Anaphylaxis Verified 10/16/22 11:46 Iodinated Contrast Media Allergy Anaphylaxis Verified 10/16/22 11:46 [Iodinated Contrast Media - IV Dye] Sulfa (Sulfonamide Allergy Anaphylaxis Verified 10/16/22 11:46 Antibiotics) sulfamethoxazole Allergy Anaphylaxis Verified 10/16/22 11:46 [From Septra] tree nut [Nut] Allergy Anaphylaxis Verified 10/16/22 11:46 trimethoprim [From Septra] Allergy Anaphylaxis Verified 10/16/22 11:46 Physical Exam Vitals: Vital Signs Temp Pulse Pulse Resp BP BP Pulse Ox 10/16/22 15:00 98.3 F 64 16 155/77 97 10/16/22 12:52 98.9 F 84 18 155/71 94 L 10/16/22 11:00 60 18 160/73 88 L 10/16/22 10:30 62 18 172/83 92 L 10/16/22 10:00 18 172/85 10/16/22 09:44 62 18 152/73 97 10/16/22 09:14 98 F 64 18 152/73 100 Intake and Output 10/16/22 10/16/22 10/16/22 06:59 14:59 22:59 Intake Total 0 Balance 0 Intake: Oral 0 Other: Weight 94.347 kg In general patient is alert and oriented x 3 in no distress HEENT head normocephalic and atraumatic Neck is supple no JVD no goiter no lymphadenopathy no carotid bruit Chest examination is clear to auscultation no crackles no wheezing Cardiac exam reveals regular heart sounds S1 and S2 no gallops no murmurs Abdomen is soft nontender no organomegaly with normal bowel sounds Extremity exam reveals no edema no cyanosis or clubbing Neurological examination reveals no gross focal deficits Results CBC & Chem 7: 10/17/22 06:24 10/16/22 09:32 Labs: Abnormal Lab Results - Last 24 Hours (Table) 10/16/22 10/16/22 10/16/22 Range/Units 09:32 09:32 10:12 WBC 14.6 H (3.8-10.6) k/uL Hgb 10.3 L (11.4-16.0) gm/dL MCV 73.3 L (80.0-100.0) fL MCH 21.7 L (25.0-35.0) pg MCHC 29.6 L (31.0-37.0) g/dL RDW 20.3 H (11.5-15.5) % Neutrophils # 10.1 H (1.3-7.7) k/uL Sodium 135 L (137-145) mmol/L BUN 37 H (7-17) mg/dL Creatinine 1.73 H (0.52-1.04) mg/dL Glucose 119 H (74-99) mg/dL POC Glucose (mg/dL) (70-110) mg/dL Phosphorus 5.1 H (2.5-4.5) mg/dL Total Protein 5.7 L (6.3-8.2) g/dL Urine Protein 2+ H (Negative) Urine Glucose (UA) 4+ H (Negative) Urine Mucus Rare H (None) /hpf 10/16/22 10/16/22 10/16/22 Range/Units 11:40 14:04 14:48 WBC (3.8-10.6) k/uL Hgb (11.4-16.0) gm/dL MCV (80.0-100.0) fL MCH (25.0-35.0) pg MCHC (31.0-37.0) g/dL RDW (11.5-15.5) % Neutrophils # (1.3-7.7) k/uL Sodium (137-145) mmol/L BUN (7-17) mg/dL Creatinine (0.52-1.04) mg/dL Glucose (74-99) mg/dL POC Glucose (mg/dL) 69 L 68 L 188 H (70-110) mg/dL Phosphorus (2.5-4.5) mg/dL Total Protein (6.3-8.2) g/dL Urine Protein (Negative) Urine Glucose (UA) (Negative) Urine Mucus (None) /hpf 10/16/22 Range/Units 17:11 WBC (3.8-10.6) k/uL Hgb (11.4-16.0) gm/dL MCV (80.0-100.0) fL MCH (25.0-35.0) pg MCHC (31.0-37.0) g/dL RDW (11.5-15.5) % Neutrophils # (1.3-7.7) k/uL Sodium (137-145) mmol/L BUN (7-17) mg/dL Creatinine (0.52-1.04) mg/dL Glucose (74-99) mg/dL POC Glucose (mg/dL) 136 H (70-110) mg/dL Phosphorus (2.5-4.5) mg/dL Total Protein (6.3-8.2) g/dL Urine Protein (Negative) Urine Glucose (UA) (Negative) Urine Mucus (None) /hpf Thrombosis Risk Factor Assmnt - Choose All That Apply Any of the Below Risk Factors Present?: Yes Each Factor Represents 1 point: Age 41-60 years, Obesity (BMI >25) Other Risk Factors: No Other congenital or acquired thrombophilia - If yes, enter type in comment: No Thrombosis Risk Factor Assessment Total Risk Factor Score: 2 Thrombosis Risk Factor Assessment Level: Low Risk Assessment and Plan Assessment: 1. Generalized weakness possibly secondary to MS exacerbation 2. Dehydration and acute kidney injury. Repeat labs ordered 3. 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 History of essential hypertension 5. History of insulin-dependent diabetes mellitus 6. History of hyperlipidemia 7. History of depression and anxiety disorder 8. History of nicotine dependence 9. Anemia maintained on ferrous sulfate 10. History of depression and anxiety DVT prophylaxis Lovenox. GI prophylaxis Protonix Neurology services have been consulted Patient was given 1 dose of IV Solu-Medrol in emergency room Time with Patient: Greater than 30 (Greater than 60% of the total time spent in counseling and coordination of care)
--- NOTE | 2022-10-17 10:34 | P.PN ---
Subjective Progress Note Date: 10/17/22 Leticia Langley is a 52-year-old female who presented to [facility] emergency room with a chief complaint of weakness and recurrent syncopal episodes in which patient reports that she believes is from MS exacerbation. Patient does have known right-sided deficits from CVA in 2014 She was evaluated in the emergency room vital examination on presentation revealed. Chest x-ray showing no acute cardiopulmonary disease no significant change from prior exam Patient was admitted to medical floor for further evaluation and treatment Past medical history is significant for coronary artery disease, chest pain, CVA, diabetes mellitus, DVT, fibromyalgia, GERD, hyperlipidemia, hypertension, sleep apnea, anxiety, depression and cholecystectomy On review of systems patient is currently resting comfortably in bed. Patient reports generalized weakness and dizziness. Patient denies chest pain or shortness breath. Patient denies nausea vomiting or diarrhea. Patient denies any urinary burning or frequency. Neurology services have been consulted. On 10/17/2022 patient's alert and oriented 3 currently resting in bed. Patient MRI of the brain has been ordered per neurology services. Current vital signs temp 97.6, pulse rate 68, respiratory rate 18, blood pressure 138/89 satting 98% on room air Objective - Vital Signs Vital signs: Vital Signs Temp 98 F 10/17/22 07:22 Pulse 82 10/17/22 07:22 Resp 17 10/17/22 07:22 BP 177/77 10/17/22 07:22 Pulse Ox 99 10/17/22 07:22 FiO2 Intake & Output 10/16/22 10/17/22 10/17/22 18:59 06:59 18:59 Intake Total 118 750 90 Balance 118 750 90 Weight 94.347 kg Intake: Intake, IV Titration 250 Amount Sodium Chloride 0.9% 1, 250 000 ml @ 75 mls/hr IV . [id number] [facility] Rx#:[id number] Oral 118 500 90 Other: Voiding Method Bedside Commode Bedside Commode - Exam Please refer to HPI otherwise unremarkable - Labs CBC & Chem 7: 10/17/22 06:24 10/16/22 09:32 Labs: Abnormal Lab Results - Last 24 Hours (Table) 10/16/22 10/16/22 10/16/22 Range/Units 11:40 14:04 14:48 WBC (4.50-10.00) X 10*3/uL Hgb (12.0-15.0) g/dL Hct (37.2-46.3) % MCV (80.0-97.0) fL MCH (27.0-32.0) pg MCHC (32.0-37.0) g/dL RDW (11.5-14.5) % POC Glucose (mg/dL) 69 L 68 L 188 H (70-110) mg/dL Hemoglobin A1c (0.0-6.0) % 10/16/22 10/16/22 10/16/22 Range/Units 17:11 18:11 20:57 WBC (4.50-10.00) X 10*3/uL Hgb (12.0-15.0) g/dL Hct (37.2-46.3) % MCV (80.0-97.0) fL MCH (27.0-32.0) pg MCHC (32.0-37.0) g/dL RDW (11.5-14.5) % POC Glucose (mg/dL) 136 H 295 H (70-110) mg/dL Hemoglobin A1c 9.1 H (0.0-6.0) % 10/17/22 10/17/22 Range/Units 06:24 08:02 WBC 16.32 H (4.50-10.00) X 10*3/uL Hgb 9.9 L (12.0-15.0) g/dL Hct 35.0 L (37.2-46.3) % MCV 73.2 L (80.0-97.0) fL MCH 20.7 L (27.0-32.0) pg MCHC 28.3 L (32.0-37.0) g/dL RDW 22.6 H (11.5-14.5) % POC Glucose (mg/dL) 305 H (70-110) mg/dL Hemoglobin A1c (0.0-6.0) % Assessment and Plan Assessment: 1. Generalized weakness possibly secondary to MS exacerbation 2. Dehydration and acute kidney injury. Repeat labs ordered 3. 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 History of essential hypertension 5. History of insulin-dependent diabetes mellitus 6. History of hyperlipidemia 7. History of depression and anxiety disorder 8. History of nicotine dependence 9. Anemia maintained on ferrous sulfate 10. History of depression and anxiety DVT prophylaxis Lovenox. GI prophylaxis Protonix Neurology services have been consulted Patient was given 1 dose of IV Solu-Medrol in emergency room MRI of the brain has been ordered per neurology
[2022-10-17 10:40] LABS: ALT 20 U/L (8-44); AST 14 U/L (13-35); African American GFR (CKD) 38.4 (60.0-200.0); Albumin 3.8 g/dL (3.8-4.9); Albumin/Globulin Ratio 1.95 (1.60-3.17); Alkaline Phosphatase 134 U/L (41-126); BUN/Creat Ratio 21.31 Ratio (12.00-20.00); Blood Urea Nitrogen 37.3 mg/dL (9.0-27.0); Calcium 10.1 mg/dL (8.7-10.3); Carbon Dioxide 20.7 mmol/L (20.0-27.5); Chloride 103 mmol/L (96-109); Glucose 314 mg/dL (70-110); Non-African American GFR(CKD) 33.1 (60.0-200.0); Potassium 5.1 mmol/L (3.5-5.5); Sodium 137 mmol/L (135-145); Total Bilirubin <0.15 mg/dL (0.30-1.20); Total Protein 5.8 g/dL (6.2-8.2)
[2022-10-17 10:55] LABS: Basophils # (A) 0.02 X 10*3/uL (0.00-0.10); Basophils % (A) 0.1 %; Eosinophils # (A) 0 X 10*3/uL (0.04-0.35); Eosinophils % (A) 0 %; Immature Grans, Automated 0.7 %; Lymphocytes # (A) 0.79 X 10*3/uL (0.90-5.00); Lymphocytes % (A) 4.8 %; Monocytes # (A) 0.06 X 10*3/uL (0.20-1.00); Monocytes % (A) 0.4 %; Neutrophils # (A) 15.33 X 10*3/uL (1.80-7.70)
--- NOTE | 2022-10-17 12:00 | P.CNNES ---
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 Some of the history is obtained from medical records as well as the patient nurse. Patient presented to our facility on 10/16/2022 and upon presentation when the nurse had her yesterday the patient was extremely confused according to the nurse and the her notified the nurse that this happens multiple times and then she'll improve cognitively. Upon seeing the patient today she seems more awake and denied any focal weakness or numbness. Denies of any headache nausea vomiting. Any difficulty getting her words out per. Patient is following up with Dr. Strange's office and stated is on Ocrevus and last was in June and get infusion every 6 months. Patient had multiple syncopal episodes and had multiple EEGs. Patient is on Lamictal 200 mg 1 tablet twice a day for her psych not seizures according to the patient but doesn't have antiepileptic the benefit. Of note the patient is known to our neurology service and had multiple hospital admission and had multiple EEGs. Her last EEG was on 10/08/2022 and was reported as normal. She also had 2 other EEGs was reported as left temporal slowing otherwise there is no epileptiform discharges or seizure on the EEG. Some of the workup during his hospital visit consisted of: Patient is afebrile. Initial white blood cells 14.6 and repeat is 16.3 the slightly neutrophilic Creatinine is 1.73 and a BUN is 37 Initial loss serum glucose is on a 19 AST and ALT is within normal limits Urinalysis is negative for urinary tract infection Review of Systems Review of system: The 12 point system was reviewed and apparent positive and negative per HPI. Past Medical History Past Medical History: Blood Disorder, Coronary Artery Disease (CAD), Cancer, [address] st Pain / Angina, CVA/TIA, Diabetes Mellitus, Deep Vein Thrombosis (DVT), Fibromyalgia, GERD/Reflux, Hyperlipidemia, Hypertension, Myocardial Infarction (MS), Musculoskeletal Disorder, Neurologic Disorder, Sleep Apnea/CPAP/BIPAP, Vascular Disorder Additional Past Medical History / Comment(s): IDDM type II, uterine/cervical and ovarian cancer, restless leg, Factor V blood disorder, DVT R leg, 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 - slight foot drag when tired/neuropathies, MS, MS X 5, ABIGAIL with Cpap use, PAD/legs, R leg edema, past pancreatitis. Last Myocardial Infarction Date:: Pt thinks 2015 History of Any Multi-Drug Resistant Organisms: None Reported Past Surgical History: Section, Cholecystectomy, Heart Catheterization With Stent, Hysterectomy, Tubal Ligation, Uterine Ablation Additional Past Surgical History / Comment(s): vein stripping right leg, radio frequency ablation of right back-02/22/2015, four stents on 04/03/16 and one on march 05, ovaries removed, colonscopy- polyp removal Past Anesthesia/Blood Transfusion Reactions: Motion Sickness Additional Past Anesthesia/Blood Transfusion Reaction / Comment(s): mild claustrophobia Date of Last Stent Placement:: 04/03/16 Past Psychological History: Anxiety, Depression Additional Psychological History / Comment(s): Pt resides with her spouse. She is mostly in her wheelchair. She has a walker and cane. She has a dexcom. Her spouse assists her with her medication organization. Spouse also drives pt. Smoking Status: Current every day smoker Past Alcohol Use History: None Reported Additional Past Alcohol Use History / Comment(s): Pt started smoking in 1988 and is alittle less than a ppd smoker. Past Drug Use History: None Reported - Past Family History Father Family Medical History: Congestive Heart Failure (CHF), Coronary Artery Disease (CAD), Diabetes Mellitus Mother Family Medical History: Cancer, COPD, Hypertension, Respiratory Disorder Additional Family Medical History / Comment(s): emphysema, colon CA Medications and Allergies Home Medications Medication Instructions Recorded Confirmed Type Pregabalin [Lyrica] 150 mg PO BID 06/25/15 10/16/22 History lamoTRIgine 200 mg PO BID 07/30/16 10/16/22 History Magnesium Gluconate [Magonate] 500 mg PO HS 03/27/17 10/16/22 History Aspirin [Adult Low Dose Aspirin EC] 81 mg PO HS 11/26/17 10/16/22 History Enalapril [Vasotec] 10 mg PO BID 11/26/17 10/16/22 History DULoxetine HCL [Cymbalta] 60 mg PO DAILY 08/25/18 10/16/22 History Isosorbide Mononitrate ER [Imdur] 60 mg PO DAILY 09/08/18 10/16/22 History carvediloL [Coreg] 25 mg PO BID 01/22/19 10/16/22 History ARIPiprazole [Abilify] 2 mg PO DAILY 11/08/20 10/16/22 History Insulin Glargine,Hum.rec.anlog 30 unit SQ BID 11/08/20 10/16/22 History [Lantus Solostar Pen] ALPRAZolam [Xanax] 2 mg PO DAILY 07/31/21 10/16/22 History Atorvastatin [Lipitor] 40 mg PO DAILY 07/31/21 10/16/22 History Cholecalciferol (Vitamin D3) 125 mcg PO HS 07/31/21 10/16/22 History [Vitamin D3 (125 MCG = 5,000 IU)] amLODIPine [Norvasc] 10 mg PO DAILY 30 Days #30 tab 01/17/22 10/16/22 Rx Pantoprazole Sodium [Protonix] 40 mg PO DAILY 30 Days #30 tab 03/20/22 10/16/22 Rx Insulin Lispro Protamin/Lispro 25 unit SQ HS 07/20/22 10/16/22 History [humaLOG Mix 75-25 Kwikpen] Insulin Lispro Protamin/Lispro 30 unit SQ DAILY 07/20/22 10/16/22 History [humaLOG Mix 75-25 Kwikpen] Citalopram Hydrobromide [CeleXA] 20 mg PO DAILY 09/01/22 10/16/22 History Albuterol Nebulized [Ventolin 2.5 mg INHALATION RT-QID PRN 10/06/22 10/16/22 History Nebulized] Empagliflozin [Jardiance] 10 mg PO DAILY 10/06/22 10/16/22 History Famotidine 20 mg PO DAILY 10/06/22 10/16/22 History Nitroglycerin Sl Tabs [Nitrostat] 0.4 mg SL Q5M PRN 10/06/22 10/16/22 History Ondansetron Odt [Zofran ODT] 8 mg PO TID PRN 10/06/22 10/16/22 History Pioglitazone [Actos] 15 mg PO DAILY 10/06/22 10/16/22 History Promethazine [Phenergan] 25 mg PO Q6H PRN 10/06/22 10/16/22 History Ferrous Sulfate [Iron (65 MG 325 mg PO DAILY 30 Days #30 tab 10/08/22 10/16/22 Rx Elemental)] Allergies Allergy/AdvReac Type Severity Reaction Status Date / Time Fish Containing Products Allergy Anaphylaxis Verified 10/16/22 11:46 Iodinated Contrast Media Allergy Anaphylaxis Verified 10/16/22 11:46 [Iodinated Contrast Media - IV Dye] Sulfa (Sulfonamide Allergy Anaphylaxis Verified 10/16/22 11:46 Antibiotics) sulfamethoxazole Allergy Anaphylaxis Verified 10/16/22 11:46 [From Septra] tree nut [Nut] Allergy Anaphylaxis Verified 10/16/22 11:46 trimethoprim [From Junra] Allergy Anaphylaxis Verified 10/16/22 11:46 Physical Examination - Vital Signs Vital Signs: Vital Signs Temp Pulse Pulse Resp BP BP Pulse Ox 10/17/22 07:22 98 F 82 17 177/77 99 10/17/22 06:20 98 F 88 18 179/81 98 10/17/22 02:33 98.2 F 83 15 164/85 98 10/16/22 20:00 64 16 10/16/22 19:31 97.6 F 68 18 138/89 93 L 10/16/22 15:00 98.3 F 64 16 155/77 97 10/16/22 12:52 98.9 F 84 18 155/71 94 L Intake and Output 10/16/22 10/17/22 10/17/22 22:59 06:59 14:59 Intake Total 368 500 90 Balance 368 500 90 Intake: Intake, IV Titration 250 Amount Sodium Chloride 0.9% 1, 250 000 ml @ 75 mls/hr IV . [id number] [facility], [facility] Rx#:[id number] Oral 118 500 90 Other: Voiding Method Bedside Commode GENERAL: The patient is lying in bed and is not in acute distress. CHEST: The heart rate is regular rate rhythm. No murmurs to auscultation. LUNG: Clear to auscultation bilaterally no wheezing noted throughout. Not labored breathing. ABDOMEN/GI: Bowel sounds present in all 4 quadrants. No tenderness to palpation throughout. NEUROLOGICAL: Higher mental function: The patient is awake, alert, oriented to self, place and time. Patient is following commands. No aphasia and no neglect. Cranial nerves: The pupils are round, equal and reactive to light and accommodation. Visual li are full to confrontation throughout. Extraocular movement is intact no nystagmus is noted. Facial sensation is normal to touch throughout. The facial strength is right nasolabial flattening. . Hearing is normal bilaterally to hand rub. Tongue is midline and moved [id number] without any difficulty. No dysarthria is noted. Shoulder shrug is normal bilaterally. Motor: The strength is spastic over the right upper (old) but able to lift somewhat above gravity. Otherwise rest are 5 over 5 throughout. Normal bulk. Cerebellum: Normal finger to nose left. Sensation: Sensation is normal to touch throughout. Reflexes (right/left): 3+ over the right upper otherwise 2+ throughout. Plantars are mute bilaterally. Results - Laboratory Findings CBC and BMP: 10/17/22 06:24 10/17/22 06:24 Abnormal Lab Findings: Abnormal Labs 10/16/22 10/16/22 10/16/22 09:32 09:32 10:12 WBC 14.6 H Hgb 10.3 L Hct MCV 73.3 L MCH 21.7 L MCHC 29.6 L RDW 20.3 H Immature Gran # Neutrophils # 10.1 H Lymphocytes # Monocytes # Eosinophils # Sodium 135 L BUN 37 H Creatinine 1.73 H Est GFR (CKD-EPI)AfAm Est GFR (CKD-EPI)NonAf BUN/Creatinine Ratio Glucose 119 H POC Glucose (mg/dL) Hemoglobin A1c Phosphorus 5.1 H Total Bilirubin Alkaline Phosphatase Total Protein 5.7 L Urine Protein 2+ H Urine Glucose (UA) 4+ H Urine Mucus Rare H 10/16/22 10/16/22 10/16/22 11:40 14:04 14:48 WBC Hgb Hct MCV MCH MCHC RDW Immature Gran # Neutrophils # Lymphocytes # Monocytes # Eosinophils # Sodium BUN Creatinine Est GFR (CKD-EPI)AfAm Est GFR (CKD-EPI)NonAf BUN/Creatinine Ratio Glucose POC Glucose (mg/dL) 69 L 68 L 188 H Hemoglobin A1c Phosphorus Total Bilirubin Alkaline Phosphatase Total Protein Urine Protein Urine Glucose (UA) Urine Mucus 10/16/22 10/16/22 10/16/22 17:11 18:11 20:57 WBC Hgb Hct MCV MCH MCHC RDW Immature Gran # Neutrophils # Lymphocytes # Monocytes # Eosinophils # Sodium BUN Creatinine Est GFR (CKD-EPI)AfAm Est GFR (CKD-EPI)NonAf BUN/Creatinine Ratio Glucose POC Glucose (mg/dL) 136 H 295 H Hemoglobin A1c 9.1 H Phosphorus Total Bilirubin Alkaline Phosphatase Total Protein Urine Protein Urine Glucose (UA) Urine Mucus 10/17/22 10/17/22 10/17/22 06:24 06:24 08:02 WBC 16.32 H Hgb 9.9 L Hct 35.0 L MCV 73.2 L MCH 20.7 L MCHC 28.3 L RDW 22.6 H Immature Gran # 0.12 H Neutrophils # 15.33 H Lymphocytes # 0.79 L Monocytes # 0.06 L Eosinophils # 0 L Sodium BUN 37.3 H Creatinine 1.8 H Est GFR (CKD-EPI)AfAm 38.4 L Est GFR (CKD-EPI)NonAf 33.1 L BUN/Creatinine Ratio 21.31 H Glucose 314 H POC Glucose (mg/dL) 305 H Hemoglobin A1c Phosphorus Total Bilirubin <0.15 L Alkaline Phosphatase 134 H Total Protein 5.8 L Urine Protein Urine Glucose (UA) Urine Mucus Assessment and Plan Assessment: Recurrent confusion/syncopal episodes. Unknown cause. Rule out seizure especially with old history of stroke. I doubt this is Multiple Sclerosis excerbation ---Mentation has improved. Recurrent episode of loss of consciousness and syncopal episodes. Has multiple routine EEG and negative for EEG but has some left temporal slowing in past. History of strokes (basal ganglia in 2015) with residual right hemiparesis (upper extremity) History of multiple sclerosis on Ocrevus fibromyalgia Type 2 diabetes Factor V Leiden Plan: I ordered MRI Brain to rule out any new ?MS lesion. In the ED patient was given one time dose of Solu-Medrol for possible MS exa cerbation. She does not want to be on Steroid during this admission since stated not too long ago was on steroids. I high recommend prolonged EEG or epilepsy monitoring unit since has recurrent episode of passing out/syncope to rule out seizure or discharges and capture episodes as outpatient. Is on ASA 81mg daily and Lipitor 40mg daily and is sufficient for secondary stroke prophylaxis. Is on Lamictal 200mg bid for psych but has anti-epileptic benefit. Will defer the rest of medical management to primary team. Upon discharge, patient needs to follow-up with her neurologist as outpatient within 1-2 weeks. The plan is discussed with patient and her nurse. Thank you for the consultation. Time with Patient: Greater than 30
[2022-10-17 12:14] LABS: Glucose,Whole Blood 474 mg/dL (70-110)
[2022-10-17 12:31] VITALS: BMI 33.5
[2022-10-17] MEDS ORDERED: INSULIN REGULAR 100 UNIT/ML VIAL (IM/SQ) SQ ONE (14:46)
[2022-10-17] MEDS ORDERED: INSULIN ASPART (NovoLOG) 100 UNIT/ML VIAL SQ SCH (14:50)
--- NOTE | 2022-10-17 16:34 | MR ---
EXAMINATION TYPE: MR brain wo/w con DATE OF EXAM: 10/17/2022 3:56 PM CLINICAL INDICATION:Female, 52 years old with history of altered mental status. Hx MS; COMPARISON: 01/12/2016 TECHNIQUE: Multi planar, multi sequence imaging was performed through the brain including: T1, T2, In version recovery, susceptibility weighted imaging and gradient echo imaging and Diffusion weighted im aging. The patient was then given intravenous contrast and multi planar, T1 fat-saturation images wer e obtained. IV Contrast: 9 cc Gadavist FINDINGS: The cortez-white junctions, ventricular system, basal cisterns appear unremarkable. Diffusion-weighted imaging shows no evidence of restricted diffusion to suggest acute/subacute infarct. Intracranial art erial flow voids are maintained. Midline structures show no abnormality. Scattered foci and confluent areas of of high T2 signal intensity are seen within the periventricular white matter. The susceptib ility weighted images do not reveal any evidence for micro-hemorrhage. After administration of gadoli nium, no abnormal enhancement is seen. The bone marrow signal is within normal limits. Paranasal sinuses and mastoid air cells: Mild scattered paranasal sinus disease. Visualized orbits: Orbital contents are intact. IMPRESSION: 1. No evidence of active demyelination. Nonspecific white matter changes. 2. No evidence of intracranial mass, acute/subacute infarct, or abnormal enhancement.
[2022-10-17 17:46] LABS: Glucose,Whole Blood 295 mg/dL (70-110)
[2022-10-17] MEDS: INSULIN ASPART (NovoLOG) 100 UNIT/ML VIAL SQ SCH ×2 (18:21→21:23)
[2022-10-17 21:14] LABS: Glucose,Whole Blood 372 mg/dL (70-110)
[2022-10-17] MEDS: MAGNESIUM OXIDE 400 MG TAB PO SCH (21:23)
[2022-10-17] MEDS: ASPIRIN 81 MG PO SCH (21:23)
[2022-10-18] MEDS: SODIUM CHLORIDE 0.9% 1,000 ML IV SCH (05:06)
[2022-10-18 06:29] VITALS: RESP 18
[2022-10-18] MEDS: PANTOPRAZOLE 40 MG TABLET PO SCH (06:30)
[2022-10-18] MEDS: carvediloL 12.5 MG TAB PO SCH (06:30)
[2022-10-18 06:31] LABS: Glucose,Whole Blood 287 mg/dL (70-110)
[2022-10-18] MEDS: INSULIN ASPART (NovoLOG) 100 UNIT/ML VIAL SQ SCH (06:36)
[2022-10-18 07:43] VITALS: BP 182/84; PULSE 68; TEMP 97.7
[2022-10-18] MEDS: FERROUS SULFATE 325 MG TAB PO SCH (08:16)
[2022-10-18] MEDS: lisinopriL 20 MG TAB PO SCH (08:16)
[2022-10-18] MEDS: ATORVASTATIN 40 MG TAB PO SCH (08:16)
[2022-10-18] MEDS: DULoxetine HCL 60 MG CAPSULE.DR PO SCH (08:16)
[2022-10-18] MEDS: lamoTRIgine 100 MG TAB PO SCH (08:17)
[2022-10-18] MEDS: PREGABALIN 75 MG CAP PO SCH (08:17)
[2022-10-18] MEDS: amLODIPine 10 MG TAB PO SCH (08:17)
[2022-10-18] MEDS: ARIPiprazole 2 MG TAB PO SCH (08:17)
[2022-10-18] MEDS: FAMOTIDINE 20 MG TAB PO SCH (08:17)
[2022-10-18] MEDS: INSULN ASP PRT/INSULIN ASPART 100 UNIT/ML 10 ML VIAL SQ SCH (08:18)
[2022-10-18] MEDS: CITALOPRAM HYDROBROMIDE 20 MG TAB PO SCH (08:20)
[2022-10-18 08:59] LABS: Basophils # (A) 0.02 X 10*3/uL (0.00-0.10); Basophils % (A) 0.1 %; Eosinophils # (A) 0.01 X 10*3/uL (0.04-0.35); Eosinophils % (A) 0.1 %; HCT 34.7 % (37.2-46.3); HGB 9.6 g/dL (12.0-15.0); Immature Grans, Automated 0.7 %; Lymphocytes # (A) 1.72 X 10*3/uL (0.90-5.00); Lymphocytes % (A) 10.2 %; MCHC 27.7 g/dL (32.0-37.0); MCV 75.8 fL (80.0-97.0); Mean Platelet Volume 10.7 fL (9.5-12.2); Monocytes % (A) 7.1 %; NRBC Per 100 WBC 0 /100 WBCS (0.0-0.0); Neutrophils % (A) 81.8 %; Platelet Count 371 X 10*3/uL (140-440); RBC 4.58 X 10*6/uL (4.10-5.20); RDW 23.3 % (11.5-14.5); WBC 16.87 X 10*3/uL (4.50-10.00)
[2022-10-18] MEDS ORDERED: ENOXAPARIN 40 MG/0.4 ML SYRINGE SQ SCH (09:00)
[2022-10-18 09:15] LABS: ALT 18 U/L (8-44); AST 13 U/L (13-35); African American GFR (CKD) 50.3 (60.0-200.0); Albumin 3.7 g/dL (3.8-4.9); Albumin/Globulin Ratio 1.81 (1.60-3.17); Alkaline Phosphatase 134 U/L (41-126); BUN/Creat Ratio 24.57 Ratio (12.00-20.00); Blood Urea Nitrogen 34.4 mg/dL (9.0-27.0); Calcium 10.1 mg/dL (8.7-10.3); Carbon Dioxide 22.5 mmol/L (20.0-27.5); Chloride 105 mmol/L (96-109); Glucose 261 mg/dL (70-110); Non-African American GFR(CKD) 43.4 (60.0-200.0); Potassium 3.9 mmol/L (3.5-5.5); Sodium 138 mmol/L (135-145); Total Bilirubin <0.15 mg/dL (0.30-1.20); Total Protein 5.7 g/dL (6.2-8.2)
[2022-10-18] MEDS: INSULIN DETEMIR (LEVEMIR) 100 UNIT/ML SYR SQ SCH (09:26)
[2022-10-18 09:29] LABS: Glucose,Whole Blood 201 mg/dL (70-110)
[2022-10-18] MEDS ORDERED: LACOSAMIDE 50 MG TABLET PO SCH (09:45)
[2022-10-18] MEDS ORDERED: hydrALAZINE HCL 25 MG TAB PO SCH (10:00)
--- NOTE | 2022-10-18 10:03 | P.PN ---
Subjective Progress Note Date: 10/18/22 The patient is seen at bedside and feels she is at baseline. Denies any new neurological issues. Objective - Vital Signs Vital signs: Vital Signs Temp 97.7 F 10/18/22 07:42 Pulse 68 10/18/22 07:42 Resp 18 10/18/22 07:42 BP 182/84 10/18/22 07:42 Pulse Ox 100 10/18/22 07:42 FiO2 Intake & Output 10/17/22 10/18/22 10/18/22 18:59 06:59 18:59 Intake Total 390 1000 240 Balance 390 1000 240 Weight 94.347 kg Intake: Oral 390 1000 240 Other: Voiding Method Bedside Commode # Voids 3 - Exam GENERAL: The patient is lying in bed and is not in acute distress. NEUROLOGICAL: Higher mental function: The patient is awake, alert, oriented to self, place and time. Patient is following commands. No aphasia and no neglect. Cranial nerves: The pupils are round, equal and reactive to light and accommodation. Visual li are full to confrontation throughout. Extraocular movement is intact no nystagmus is noted. Facial sensation is normal to touch throughout. The facial strength is right nasolabial flattening. . Hearing is normal bilaterally to hand rub. Tongue is midline and moved [id number] without any difficulty. No dysarthria is noted. Shoulder shrug is normal bilaterally. Motor: The strength is spastic over the right upper (old) but able to lift somewhat above gravity. Otherwise rest are 5 over 5 throughout. Normal bulk. Cerebellum: Normal finger to nose left. Sensation: Sensation is normal to touch throughout. Reflexes (right/left): 3+ over the right upper otherwise 2+ throughout. Plantars are mute bilaterally. Some of the workup during his hospital visit consisted of: Patient is afebrile. Initial white blood cells 14.6 and repeat is 16.3 the slightly neutrophilic Creatinine is 1.73 and a BUN is 37 Initial loss serum glucose is on a 19 AST and ALT is within normal limits Urinalysis is negative for urinary tract infection MR the brain is reported as no evidence for active demyelinating. Nonspecific white matter changes. No evidence of intracranial mass, acute/subacute infarct or abnormal enhancement. I personally reviewed the MRI and I agree there is no acute subacute ischemic stroke patient does have old strokes over the left basal ganglia and and has hyperintense lesion on the flare over the left medial temporal/insular region as well as old changes in the pontine. - Labs CBC & Chem 7: 10/18/22 06:21 10/18/22 06:21 Labs: Abnormal Lab Results - Last 24 Hours (Table) 10/17/22 10/17/22 10/17/22 Range/Units 06:24 06:24 12:12 WBC 16.32 H (4.50-10.00) X 10*3/uL Hgb 9.9 L (12.0-15.0) g/dL Hct 35.0 L (37.2-46.3) % MCV 73.2 L (80.0-97.0) fL MCH 20.7 L (27.0-32.0) pg MCHC 28.3 L (32.0-37.0) g/dL RDW 22.6 H (11.5-14.5) % Immature Gran # 0.12 H (0.00-0.04) X 10*3/uL Neutrophils # 15.33 H (1.80-7.70) X 10*3/uL Lymphocytes # 0.79 L (0.90-5.00) X 10*3/uL Monocytes # 0.06 L (0.20-1.00) X 10*3/uL Eosinophils # 0 L (0.04-0.35) X 10*3/uL BUN 37.3 H (9.0-27.0) mg/dL Creatinine 1.8 H (0.6-1.5) mg/dL Est GFR (CKD-EPI)AfAm 38.4 L (60.0-200.0) Est GFR (CKD-EPI)NonAf 33.1 L (60.0-200.0) BUN/Creatinine Ratio 21.31 H (12.00-20.00) Ratio Glucose 314 H (70-110) mg/dL POC Glucose (mg/dL) 474 H (70-110) mg/dL Total Bilirubin <0.15 L (0.30-1.20) mg/dL Alkaline Phosphatase 134 H (41-126) U/L Total Protein 5.8 L (6.2-8.2) g/dL Albumin (3.8-4.9) g/dL 10/17/22 10/17/22 10/18/22 Range/Units 17:33 21:13 06:21 WBC 16.87 H (4.50-10.00) X 10*3/uL Hgb 9.6 L (12.0-15.0) g/dL Hct 34.7 L (37.2-46.3) % MCV 75.8 L (80.0-97.0) fL MCH 21.0 L (27.0-32.0) pg MCHC 27.7 L (32.0-37.0) g/dL RDW 23.3 H (11.5-14.5) % Immature Gran # 0.12 H (0.00-0.04) X 10*3/uL Neutrophils # 13.80 H (1.80-7.70) X 10*3/uL Lymphocytes # (0.90-5.00) X 10*3/uL Monocytes # 1.20 H (0.20-1.00) X 10*3/uL Eosinophils # 0.01 L (0.04-0.35) X 10*3/uL BUN (9.0-27.0) mg/dL Creatinine (0.6-1.5) mg/dL Est GFR (CKD-EPI)AfAm (60.0-200.0) Est GFR (CKD-EPI)NonAf (60.0-200.0) BUN/Creatinine Ratio (12.00-20.00) Ratio Glucose (70-110) mg/dL POC Glucose (mg/dL) 295 H 372 H (70-110) mg/dL Total Bilirubin (0.30-1.20) mg/dL Alkaline Phosphatase (41-126) U/L Total Protein (6.2-8.2) g/dL Albumin (3.8-4.9) g/dL 10/18/22 10/18/22 10/18/22 Range/Units 06:21 06:29 09:27 WBC (4.50-10.00) X 10*3/uL Hgb (12.0-15.0) g/dL Hct (37.2-46.3) % MCV (80.0-97.0) fL MCH (27.0-32.0) pg MCHC (32.0-37.0) g/dL RDW (11.5-14.5) % Immature Gran # (0.00-0.04) X 10*3/uL Neutrophils # (1.80-7.70) X 10*3/uL Lymphocytes # (0.90-5.00) X 10*3/uL Monocytes # (0.20-1.00) X 10*3/uL Eosinophils # (0.04-0.35) X 10*3/uL BUN 34.4 H (9.0-27.0) mg/dL Creatinine (0.6-1.5) mg/dL Est GFR (CKD-EPI)AfAm 50.3 L (60.0-200.0) Est GFR (CKD-EPI)NonAf 43.4 L (60.0-200.0) BUN/Creatinine Ratio 24.57 H (12.00-20.00) Ratio Glucose 261 H (70-110) mg/dL POC Glucose (mg/dL) 287 H 201 H (70-110) mg/dL Total Bilirubin <0.15 L (0.30-1.20) mg/dL Alkaline Phosphatase 134 H (41-126) U/L Total Protein 5.7 L (6.2-8.2) g/dL Albumin 3.7 L (3.8-4.9) g/dL Assessment and Plan Assessment: Recurrent confusion/syncopal episodes. Unknown cause. Rule out seizure especially with old history of stroke. I doubt this is Multiple Sclerosis excerbation ---Mentation has improved. Recurrent episode of loss of consciousness and syncopal episodes. Has multiple routine EEG and negative for EEG but has some left temporal slowing in past. History of strokes (basal ganglia in 2015) with residual right hemiparesis (upper extremity) History of multiple sclerosis on Ocrevus fibromyalgia Type 2 diabetes Factor V Leiden Plan: I high recommend prolonged EEG or epilepsy monitoring unit since has recurrent episode of passing out/syncope to rule out seizure or discharges and capture e pisodes as outpatient. Patient had multiple routine EEGs in our facility. Is on Lamictal 200mg bid for psych but has anti-epileptic benefit. I added Vimpat in addition 50 mg 1 tablet twice a day since I have suspicion possibly patient's syncopal episodes loss of consciousness or confusion could be due to possible seizures. Is on ASA 81mg daily and Lipitor 40mg daily and is sufficient for secondary stroke prophylaxis. No active new lesions on MRI of the brain. From the brain there is no lateral lesions for MS diagnosis but she stated she was diagnosed in past and was told has MS. In the ED patient was given one time dose of Solu-Medrol for possible MS exacerbation. She does not want to be on Steroid during this admission since stated not too long ago was on steroids. Will defer the rest of medical management to primary team. Upon discharge, patient needs to follow-up with her neurologist as outpatient within 1-2 weeks (she follows-up with Dr. Strange's team). The plan is discussed with patient and her nurse. There is no additional neurological workup and the patient is clear for discharge. Time with Patient: Less than 30
[2022-10-18] MEDS: PIOGLITAZONE 15 MG TAB PO SCH (10:05)
--- NOTE | 2022-10-18 10:31 | P.DS ---
Providers Date of admission: 10/16/22 12:08 Expected date of discharge: 10/18/22 Attending physician: Evin Sanchez Consults: 10/16/22 12:13 Consult Physician Urgent Consulting Provider: Joni Figueredo Consult Reason/Comments: MS Do you want consulting provider notified?: Yes Primary care physician: Dagmar Hennessy Hospital Course: Discharge diagnosis 1. Generalized weakness possibly secondary to MS exacerbation 2. Dehydration and acute kidney injury. Repeat labs ordered 3. 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 History of essential hypertension 5. History of insulin-dependent diabetes mellitus 6. History of hyperlipidemia 7. History of depression and anxiety disorder 8. History of nicotine dependence 9. Anemia maintained on ferrous sulfate 10. History of depression and anxiety Hospital course Leticia Langley is a 52-year-old female who presented to [facility] emergency room with a chief complaint of weakness and recurrent syncopal episodes in which patient reports that she believes is from MS exacerbation. Patient does have known right-sided deficits from CVA in 2014 She was evaluated in the emergency room vital examination on presentation revealed. Chest x-ray showing no acute cardiopulmonary disease no significant change from prior exam Patient was admitted to medical floor for further evaluation and treatment Past medical history is significant for coronary artery disease, chest pain, CVA, diabetes mellitus, DVT, fibromyalgia, GERD, hyperlipidemia, hypertension, sleep apnea, anxiety, depression and cholecystectomy On review of systems patient is currently resting comfortably in bed. Patient reports generalized weakness and dizziness. Patient denies chest pain or shortness breath. Patient denies nausea vomiting or diarrhea. Patient denies any urinary burning or frequency. Neurology services have been consulted. On 10/17/2022 patient's alert and oriented 3 currently resting in bed. Patient MRI of the brain has been ordered per neurology services. Current vital signs temp 97.6, pulse rate 68, respiratory rate 18, blood pressure 138/89 satting 98% on room air On 10/18/2022 2 patient's alert and oriented 3. Patient underwent MRI of the brain was negative. Patient evaluated by 6 neurology services and cleared for d ischarge per neurology recommended prolonged EEG or epilepsy monitoring unit patient has had multiple EEGs at our facility. Per neurology patient maintained on Lamictal but did add Vimpat 50 mg twice a day due to possible seizures patient is recommended for follow-up with her neurologist no further workup inpatient neurology. Patient denies chest pain or shortness of breath. Patient denies nausea vomiting or diarrhea. Patient denies any urinary burning or frequency. Patient's blood pressure remains elevated will add hydralazine 25 twice a day recommend continue monitoring outpatient per PCP Patient Condition at Discharge: Stable Plan - Discharge Summary Discharge Rx Participant: No New Discharge Prescriptions: New hydrALAZINE HCL [Apresoline] 25 mg PO BID 30 Days #60 tab Continue Pregabalin [Lyrica] 150 mg PO BID lamoTRIgine 200 mg PO BID Magnesium Gluconate [Magonate] 500 mg PO HS Enalapril [Vasotec] 10 mg PO BID Aspirin [Adult Low Dose Aspirin EC] 81 mg PO HS DULoxetine HCL [Cymbalta] 60 mg PO DAILY Isosorbide Mononitrate ER [Imdur] 60 mg PO DAILY carvediloL [Coreg] 25 mg PO BID Insulin Glargine,Hum.rec.anlog [Lantus Solostar Pen] 30 unit SQ BID ARIPiprazole [Abilify] 2 mg PO DAILY ALPRAZolam [Xanax] 2 mg PO DAILY Pantoprazole Sodium [Protonix] 40 mg PO DAILY 30 Days #30 tab Insulin Lispro Protamin/Lispro [humaLOG Mix 75-25 Kwikpen] 30 unit SQ DAILY Insulin Lispro Protamin/Lispro [humaLOG Mix 75-25 Kwikpen] 25 unit SQ HS Citalopram Hydrobromide [CeleXA] 20 mg PO DAILY Albuterol Nebulized [Ventolin Nebulized] 2.5 mg INHALATION RT-QID PRN PRN Reason: Shortness Of Breath Famotidine 20 mg PO DAILY Nitroglycerin Sl Tabs [Nitrostat] 0.4 mg SL Q5M PRN PRN Reason: Chest Pain Ondansetron Odt [Zofran ODT] 8 mg PO TID PRN PRN Reason: Nausea Pioglitazone [Actos] 15 mg PO DAILY Promethazine [Phenergan] 25 mg PO Q6H PRN PRN Reason: Nausea Atorvastatin [Lipitor] 40 mg PO DAILY Cholecalciferol (Vitamin D3) [Vitamin D3 (125 MCG = 5,000 IU)] 125 mcg PO HS amLODIPine [Norvasc] 10 mg PO DAILY 30 Days #30 tab Empagliflozin [Jardiance] 10 mg PO DAILY Ferrous Sulfate [Iron (65 MG Elemental)] 325 mg PO DAILY 30 Days #30 tab Discharge Medication List Pregabalin [Lyrica] 150 mg PO BID 06/25/15 [History] lamoTRIgine 200 mg PO BID 07/30/16 [History] Magnesium Gluconate [Magonate] 500 mg PO HS 03/27/17 [History] Aspirin [Adult Low Dose Aspirin EC] 81 mg PO HS 11/26/17 [History] Enalapril [Vasotec] 10 mg PO BID 11/26/17 [History] DULoxetine HCL [Cymbalta] 60 mg PO DAILY 08/25/18 [History] Isosorbide Mononitrate ER [Imdur] 60 mg PO DAILY 09/08/18 [History] carvediloL [Coreg] 25 mg PO BID 01/22/19 [History] ARIPiprazole [Abilify] 2 mg PO DAILY 11/08/20 [History] Insulin Glargine,Hum.rec.anlog [Lantus Solostar Pen] 30 unit SQ BID 11/08/20 [History] ALPRAZolam [Xanax] 2 mg PO DAILY 07/31/21 [History] Atorvastatin [Lipitor] 40 mg PO DAILY 07/31/21 [History] Cholecalciferol (Vitamin D3) [Vitamin D3 (125 MCG = 5,000 IU)] 125 mcg PO HS 07/31/21 [History] amLODIPine [Norvasc] 10 mg PO DAILY 30 Days #30 tab 01/17/22 [Rx] Pantoprazole Sodium [Protonix] 40 mg PO DAILY 30 Days #30 tab 03/20/22 [Rx] Insulin Lispro Protamin/Lispro [humaLOG Mix 75-25 Kwikpen] 25 unit SQ HS 07/20/22 [History] Insulin Lispro Protamin/Lispro [humaLOG Mix 75-25 Kwikpen] 30 unit SQ DAILY 07/20/22 [History] Citalopram Hydrobromide [CeleXA] 20 mg PO DAILY 09/01/22 [History] Albuterol Nebulized [Ventolin Nebulized] 2.5 mg INHALATION RT-QID PRN 10/06/22 [History] Empagliflozin [Jardiance] 10 mg PO DAILY 10/06/22 [History] Famotidine 20 mg PO DAILY 10/06/22 [History] Nitroglycerin Sl Tabs [Nitrostat] 0.4 mg SL Q5M PRN 10/06/22 [History] Ondansetron Odt [Zofran ODT] 8 mg PO TID PRN 10/06/22 [History] Pioglitazone [Actos] 15 mg PO DAILY 10/06/22 [History] Promethazine [Phenergan] 25 mg PO Q6H PRN 10/06/22 [History] Ferrous Sulfate [Iron (65 MG Elemental)] 325 mg PO DAILY 30 Days #30 tab 10/08/22 [Rx] hydrALAZINE HCL [Apresoline] 25 mg PO BID 30 Days #60 tab 10/18/22 [Rx] Follow up Appointment(s)/Referral(s): Dagmar Hennessy MD [Primary Care Provider] - 1-2 days
== END 2022-10-18 11:26 | disposition home or self-care (01) ==
LOC: EC 09:13 → 6NMEDSUR 12:08
PROVIDERS: ADMIT Internal Medicine; ATTEND Internal Medicine
DX: R53.1 Weakness (principal); R55 Syncope and collapse; G35 Multiple sclerosis; E86.0 Dehydration; N17.9 Acute kidney failure, unspecified; I25.10 Atherosclerotic heart disease of native coronary artery without angina pectoris; M79.7 Fibromyalgia; K21.9 Gastro-esophageal reflux disease without esophagitis; E78.5 Hyperlipidemia, unspecified; I10 Essential (primary) hypertension; I25.2 Old myocardial infarction; I69.351 Hemiplegia and hemiparesis following cerebral infarction affecting right dominant side; G25.81 Restless legs syndrome; G47.33 Obstructive sleep apnea (adult) (pediatric); E11.51 Type 2 diabetes mellitus with diabetic peripheral angiopathy without gangrene; F32.A Depression, unspecified; F41.9 Anxiety disorder, unspecified; D64.9 Anemia, unspecified; D68.51 Activated protein C resistance; F17.200 Nicotine dependence, unspecified, uncomplicated; Z85.42 Personal history of malignant neoplasm of other parts of uterus; Z85.43 Personal history of malignant neoplasm of ovary; Z86.718 Personal history of other venous thrombosis and embolism; Z95.5 Presence of coronary angioplasty implant and graft; Z79.899 Other long term (current) drug therapy; Z79.82 Long term (current) use of aspirin; Z79.4 Long term (current) use of insulin; Z79.84 Long term (current) use of oral hypoglycemic drugs; Z88.2 Allergy status to sulfonamides
CPT/HCPCS: 96361 ×3; 96366; 96372 ×3; 96365; 99285; 36415; 94760; 93005; 80053 ×3; 82140; 83605; 83735; 84100; 84484; 85025 ×3; 85610; 85730; 81001; 83036; 71046; 70553; G0378 ×3; J2930; J1650; A9585

== ENCOUNTER 2022-10-31 22:22 | Emergency (ER) | payer OTHER ==
[2022-10-31 22:35] VITALS: TEMP 98.2
--- NOTE | 2022-10-31 22:55 | ED ---
Extremity Problem HPI - General Chief complaint: Extremity Problem,Nontraumatic Stated complaint: poss blood clot Time Seen by Provider: 10/31/22 22:49 Source: patient, RN notes reviewed, old records reviewed Mode of arrival: EMS Limitations: no limitations - History of Present Illness Initial comments: This is a 52-year-old female DF for evaluation patient Dese for evaluation regards to lower extremity edema significant. Worsening than normal or pain in the left leg. Swelling is worse on the right left. History of blood clots, on aspirin. No chest pain or shortness of breath. MD Complaint: extremity pain, extremity swelling, joint swelling -: hour(s) Location: bilateral lower extremity History of Same: Yes -: Yes arthralgia Radiation: none Severity scale (1-10): 7 Quality: aching Consistency: constant Improves with: nothing Worsens with: nothing Associated Symptoms: denies other symptoms - Related Data Home Medications Medication Instructions Recorded Confirmed Pregabalin [Lyrica] 150 mg PO BID 06/25/15 10/16/22 lamoTRIgine 200 mg PO BID 07/30/16 10/16/22 Magnesium Gluconate [Magonate] 500 mg PO HS 03/27/17 10/16/22 Aspirin [Adult Low Dose Aspirin EC] 81 mg PO HS 11/26/17 10/16/22 Enalapril [Vasotec] 10 mg PO BID 11/26/17 10/16/22 DULoxetine HCL [Cymbalta] 60 mg PO DAILY 08/25/18 10/16/22 Isosorbide Mononitrate ER [Imdur] 60 mg PO DAILY 09/08/18 10/16/22 carvediloL [Coreg] 25 mg PO BID 01/22/19 10/16/22 ARIPiprazole [Abilify] 2 mg PO DAILY 11/08/20 10/16/22 Insulin Glargine,Hum.rec.anlog 30 unit SQ BID 11/08/20 10/16/22 [Lantus Solostar Pen] ALPRAZolam [Xanax] 2 mg PO DAILY 07/31/21 10/16/22 Atorvastatin [Lipitor] 40 mg PO DAILY 07/31/21 10/16/22 Cholecalciferol (Vitamin D3) 125 mcg PO HS 07/31/21 10/16/22 [Vitamin D3 (125 MCG = 5,000 IU)] Insulin Lispro Protamin/Lispro 25 unit SQ HS 07/20/22 10/16/22 [humaLOG Mix 75-25 Kwikpen] Insulin Lispro Protamin/Lispro 30 unit SQ DAILY 07/20/22 10/16/22 [humaLOG Mix 75-25 Kwikpen] Citalopram Hydrobromide [CeleXA] 20 mg PO DAILY 09/01/22 10/16/22 Albuterol Nebulized [Ventolin 2.5 mg INHALATION RT-QID PRN 10/06/22 10/16/22 Nebulized] Empagliflozin [Jardiance] 10 mg PO DAILY 10/06/22 10/16/22 Famotidine 20 mg PO DAILY 10/06/22 10/16/22 Nitroglycerin Sl Tabs [Nitrostat] 0.4 mg SL Q5M PRN 10/06/22 10/16/22 Ondansetron Odt [Zofran ODT] 8 mg PO TID PRN 10/06/22 10/16/22 Pioglitazone [Actos] 15 mg PO DAILY 10/06/22 10/16/22 Promethazine [Phenergan] 25 mg PO Q6H PRN 10/06/22 10/16/22 Previous Rx's Medication Instructions Recorded amLODIPine [Norvasc] 10 mg PO DAILY 30 Days #30 tab 01/17/22 Pantoprazole Sodium [Protonix] 40 mg PO DAILY 30 Days #30 tab 03/20/22 Ferrous Sulfate [Iron (65 MG 325 mg PO DAILY 30 Days #30 tab 10/08/22 Elemental)] Lacosamide [Vimpat] 50 mg PO BID 28 Days #14 tab 10/18/22 hydrALAZINE HCL [Apresoline] 25 mg PO BID 30 Days #60 tab 10/18/22 Allergies Allergy/AdvReac Type Severity Reaction Status Date / Time Fish Containing Products Allergy Anaphylaxis Verified 10/16/22 11:46 Iodinated Contrast Media Allergy Anaphylaxis Verified 10/16/22 11:46 [Iodinated Contrast Media - IV Dye] Sulfa (Sulfonamide Allergy Anaphylaxis Verified 10/16/22 11:46 Antibiotics) sulfamethoxazole Allergy Anaphylaxis Verified 10/16/22 11:46 [From ] tree nut [Nut] Allergy Anaphylaxis Verified 10/16/22 11:46 trimethoprim [From Septra] Allergy Anaphylaxis Verified 10/16/22 11:46 Review of Systems ROS Statement: Those systems with pertinent positive or pertinent negative responses have been documented in the HPI. ROS Other: All systems not noted in ROS Statement are negative. Past Medical History Past Medical History: Blood Disorder, Coronary Artery Disease (CAD), Cancer, Chest Pain / Angina, CVA/TIA, Diabetes Mellitus, Deep Vein Thrombosis (DVT), Fibromyalgia, GERD/Reflux, Hyperlipidemia, Hypertension, Myocardial Infarction (UT), Musculoskeletal Disorder, Neurologic Disorder, Sleep Apnea/CPAP/BIPAP, Vascular Disorder Additional Past Medical History / Comment(s): IDDM type II, uterine/cervical and ovarian cancer, restless leg, Factor V blood disorder, DVT R leg, 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 - slight foot drag when tired/neuropathies, MS, UT X 5, ABIGAIL with Cpap use, PAD/legs, R leg edema, past pancreatitis. Last Myocardial Infarction Date:: Pt thinks 2015 History of Any Multi-Drug Resistant Organisms: None Reported Past Surgical History: Section, Cholecystectomy, Heart Catheterization With Stent, Hysterectomy, Tubal Ligation, Uterine Ablation Additional Past Surgical History / Comment(s): vein stripping right leg, radio frequency ablation of right back-02/22/2015, four stents on 04/03/16 and one on march 05, ovaries removed, colonscopy- polyp removal Past Anesthesia/Blood Transfusion Reactions: Motion Sickness Additional Past Anesthesia/Blood Transfusion Reaction / Comment(s): mild claustrophobia Date of Last Stent Placement:: 04/03/16 Past Psychological History: Anxiety, Depression Additional Psychological History / Comment(s): Pt resides with her spouse. She is mostly in her wheelchair. She has a walker and cane. She has a dexcom. Her spouse assists her with her medication organization. Spouse also drives pt. Smoking Status: Current every day smoker Past Alcohol Use History: None Reported Additional Past Alcohol Use History / Comment(s): Pt started smoking in 1988 and is alittle less than a ppd smoker. Past Drug Use History: None Reported - Past Family History Father Family Medical History: Congestive Heart Failure (CHF), Coronary Artery Disease (CAD), Diabetes Mellitus Mother Family Medical History: Cancer, COPD, Hypertension, Respiratory Disorder Additional Family Medical History / Comment(s): emphysema, colon CA General Exam Limitations: no limitations General appearance: alert, in no apparent distress Head exam: Present: atraumatic, normocephalic, normal inspection Eye exam: Present: normal appearance, PERRL, EOMI. Absent: scleral icterus, conjunctival injection, periorbital swelling ENT exam: Present: normal exam, mucous membranes moist Neck exam: Present: normal inspection. Absent: tenderness, meningismus, lymphad enopathy Respiratory exam: Present: normal lung sounds bilaterally. Absent: respiratory distress, wheezes, rales, rhonchi, stridor Cardiovascular Exam: Present: regular rate, normal rhythm, normal heart sounds. Absent: systolic murmur, diastolic murmur, rubs, gallop, clicks GI/Abdominal exam: Present: soft, normal bowel sounds. Absent: distended, tenderness, guarding, rebound, rigid Extremities exam: Present: tenderness, pedal edema, other (Bilateral lower extremity edema). Absent: joint swelling, calf tenderness Back exam: Present: normal inspection Neurological exam: Present: alert, oriented X3, CN II-XII intact Psychiatric exam: Present: normal affect, normal mood Skin exam: Present: warm, dry, intact, normal color. Absent: rash Course Vital Signs 10/31/22 10/31/22 22:29 22:40 Temperature 98.2 F Pulse Rate 76 Respiratory 16 Rate Blood Pressure 166/64 O2 Sat by Pulse 93 L Oximetry - Reevaluation(s) Reevaluation #1: 11/01/22 00:43 Medical records reviewed Reevaluation #2: 11/01/22 00:43 Patient has really no change in symptoms here in the ER Reevaluation #3: 11/01/22 00:44 Patient informed results and questions answered Reevaluation #4: 11/01/22 00:44 MDM differential lower extremity edema, DVT, cellulitis, arterial occlusion, CHF Reevaluation #5: 11/01/22 00:44 Was pt. sent in by a medical professional or institution? @ -no Did you speak to anyone other than the patient for history? @ -no Did you review nursing and triage notes? @ -agree Were old charts reviewed? @ -no Differential Diagnosis? @ -prior EKG interpreted by me (3pts min.)? @ -yes X-rays interpreted by me (1pt min.)? @ -yes CT interpreted by me (1pt min.)? @ -[none] U/S interpreted by me (1pt. min.)? @ -yes What testing was considered but not performed? (CT, X-rays, U/S, labs)? Why? @ no What meds were considered but not given? Why? @ -[none] Did you discuss the management of the patient with other professionals? @ -no Did you reconcile home meds? @ -[none] Was smoking cessation discussed for >3mins.? @ -[none] Was critical care preformed (if so, how long)? @ -[none] Were there social determinants of health that impacted care today? How? (Homelessness, low income, unemployed, alcoholism, drug addiction, transportation, low edu. Level, literacy, decrease access to med. care, shelter, rehab)? @ -no Was there de-escalation of care discussed even if they declined? (Discuss DNR or withdrawal of care, Hospice)? @ -no What co-morbidities impacted this encounter? (DM, HTN, Smoking, COPD, CAD, Cancer, CVA, Hep., AIDS, mental health diagnosis, sleep apnea, morbid obesity)? @ -no Was patient admitted / discharged? @ -dc Undiagnosed new problem with uncertain prognosis? @ -[none] Drug Therapy requiring intensive monitoring for toxicity (Heparin, Nitro, Insulin, Cardizem)? @ -[none] Were any procedures done? @ -[none] Diagnosis/symptom? @ -edema Acute, or Chronic, or Acute on Chronic? @ -AoC Uncomplicated (without systemic symptoms) or Complicated (systemic symptoms)? @ -[default] Side effects of treatment? @ -[none] Exacerbation, Progression, or Severe Exacerbation] @ -[no] Poses a threat to life or bodily function? @ -[no] Medical Decision Making - Medical Decision Making 52 female to the emergency department for evaluation patient presents today for evaluation of lower extremity edema. No DVT. Patient has no other symptoms and can be discharged home - Lab Data Result diagrams: 10/31/22 22:39 10/31/22 22:38 Lab Results 10/31/22 10/31/22 10/31/22 Range/Units 22:38 22:38 22:38 WBC (3.8-10.6) k/uL RBC (3.80-5.40) m/uL Hgb (11.4-16.0) gm/dL Hct (34.0-46.0) % MCV (80.0-100.0) fL MCH (25.0-35.0) pg MCHC (31.0-37.0) g/dL RDW (11.5-15.5) % Plt Count (150-450) k/uL MPV Neutrophils % % Lymphocytes % % Monocytes % % Eosinophils % % Basophils % % Neutrophils # (1.3-7.7) k/uL Lymphocytes # (1.0-4.8) k/uL Monocytes # (0-1.0) k/uL Eosinophils # (0-0.7) k/uL Basophils # (0-0.2) k/uL Hypochromasia Anisocytosis Microcytosis PT 10.2 (9.0-12.0) sec INR 1.0 (<1.2) APTT 25.9 (22.0-30.0) sec Sodium 133 L (137-145) mmol/L Potassium 4.2 (3.5-5.1) mmol/L Chloride 103 (98-107) mmol/L Carbon Dioxide 24 (22-30) mmol/L Anion Gap 6 mmol/L BUN 18 H (7-17) mg/dL Creatinine 1.20 H (0.52-1.04) mg/dL Est GFR (CKD-EPI)AfAm 61 (>60 ml/min/1.73 sqM) Est GFR (CKD-EPI)NonAf 53 (>60 ml/min/1.73 sqM) Glucose 450 H (74-99) mg/dL Calcium 9.4 (8.4-10.2) mg/dL Magnesium 1.7 (1.6-2.3) mg/dL Total Bilirubin 0.2 (0.2-1.3) mg/dL AST 20 (14-36) U/L ALT 21 (4-34) U/L Alkaline Phosphatase 184 H (38-126) U/L Troponin I 0.023 (0.000-0.034) ng/mL NT-Pro-B Natriuret Pep pg/mL Total Protein 5.3 L (6.3-8.2) g/dL Albumin 3.1 L (3.5-5.0) g/dL 10/31/22 10/31/22 Range/Units 22:38 22:39 WBC 11.2 H (3.8-10.6) k/uL RBC 4.45 (3.80-5.40) m/uL Hgb 10.5 L (11.4-16.0) gm/dL Hct 34.4 (34.0-46.0) % MCV 77.4 L (80.0-100.0) fL MCH 23.7 L (25.0-35.0) pg MCHC 30.6 L (31.0-37.0) g/dL RDW 24.0 H (11.5-15.5) % Plt Count 290 (150-450) k/uL MPV 8.4 Neutrophils % 78 % Lymphocytes % 15 % Monocytes % 4 % Eosinophils % 2 % Basophils % 1 % Neutrophils # 8.8 H (1.3-7.7) k/uL Lymphocytes # 1.7 (1.0-4.8) k/uL Monocytes # 0.5 (0-1.0) k/uL Eosinophils # 0.2 (0-0.7) k/uL Basophils # 0.1 (0-0.2) k/uL Hypochromasia Marked Anisocytosis Marked Microcytosis Moderate PT (9.0-12.0) sec INR (<1.2) APTT (22.0-30.0) sec Sodium (137-145) mmol/L Potassium (3.5-5.1) mmol/L Chloride (98-107) mmol/L Carbon Dioxide (22-30) mmol/L Anion Gap mmol/L BUN (7-17) mg/dL Creatinine (0.52-1.04) mg/dL Est GFR (CKD-EPI)AfAm (>60 ml/min/1.73 sqM) Est GFR (CKD-EPI)NonAf (>60 ml/min/1.73 sqM) Glucose (74-99) mg/dL Calcium (8.4-10.2) mg/dL Magnesium (1.6-2.3) mg/dL Total Bilirubin (0.2-1.3) mg/dL AST (14-36) U/L ALT (4-34) U/L Alkaline Phosphatase (38-126) U/L Troponin I (0.000-0.034) ng/mL NT-Pro-B Natriuret Pep 1770 pg/mL Total Protein (6.3-8.2) g/dL Albumin (3.5-5.0) g/dL - EKG Data -: EKG Interpreted by Me (EKG is sinus 75 NJ 155 QRS 163 QTc 462) - Radiology Data Radiology results: report reviewed (Chest x-ray, us BILATERAL LOWER EXTREMITY NEGATIVE FOR ACUTE DISEASE), image reviewed Disposition Clinical Impression: Bilateral leg edema Disposition: HOME SELF-CARE Condition: Good Instructions (If sedation given, give patient instructions): Leg Edema (ED) Is patient prescribed a controlled substance at d/c from ED?: No Referrals: Dagmar Hennessy MD [Primary Care Provider] - 1-2 days Time of Disposition: 00:45
[2022-10-31 22:56] LABS: Anisocytosis Marked; Basophils # (A) 0.1 k/uL (0-0.2); Basophils % (A) 1 %; Eosinophils # (A) 0.2 k/uL (0-0.7); Eosinophils % (A) 2 %; HCT 34.4 % (34.0-46.0); HGB 10.5 gm/dL (11.4-16.0); Hypochromasia Marked; Lymphocytes # (A) 1.7 k/uL (1.0-4.8); Lymphocytes % (A) 15 %; MCH 23.7 pg (25.0-35.0); MCHC 30.6 g/dL (31.0-37.0); MCV 77.4 fL (80.0-100.0); Mean Platelet Volume 8.4; Microcytosis Moderate; Monocytes # (A) 0.5 k/uL (0-1.0); Monocytes % (A) 4 %; Neutrophils # (A) 8.8 k/uL (1.3-7.7); Neutrophils % (A) 78 %; Platelet Count 290 k/uL (150-450); RBC 4.45 m/uL (3.80-5.40); WBC 11.2 k/uL (3.8-10.6)
[2022-10-31 23:04] LABS: Partial Thromboplastin Time 25.9 sec (22.0-30.0); Prothrombin Time 10.2 sec (9.0-12.0)
--- NOTE | 2022-10-31 23:04 | XR ---
EXAMINATION TYPE: XR chest 2V DATE OF EXAM: 10/31/2022 COMPARISON: 10/16/2022 HISTORY: Chest pain TECHNIQUE: 2 views FINDINGS: Heart and mediastinum are normal. Lungs are clear. Diaphragm is normal. Bony thorax is inta ct IMPRESSION: Normal chest. There is clearing of minimal subsegmental atelectasis in the left lung comp ared to old exam.
[2022-10-31 23:20] LABS: Albumin 3.1 g/dL (3.5-5.0); Calcium 9.4 mg/dL (8.4-10.2); Magnesium 1.7 mg/dL (1.6-2.3); Potassium 4.2 mmol/L (3.5-5.1); Total Bilirubin 0.2 mg/dL (0.2-1.3); Total Protein 5.3 g/dL (6.3-8.2)
--- NOTE | 2022-10-31 23:54 | US ---
EXAMINATION TYPE: US venous doppler duplex LE DATE OF EXAM: 10/31/2022 11:26 PM COMPARISON: NONE CLINICAL HISTORY: pain. Bilateral calf redness and pain. Takes aspirin daily. Hx of DVT according to pt . SIDE PERFORMED: Bilateral TECHNIQUE: The lower extremity deep venous system is examined utilizing real time linear array sonog mahsa with graded compression, doppler sonography and color-flow sonography. VESSELS IMAGED: Common Femoral Vein Deep Femoral Vein Greater Saphenous Vein * Femoral Vein Popliteal Vein Small Saphenous Vein * Proximal Calf Veins (* superficial vessels) Right Leg: No evidence of DVT. Edema noted in knee and calf Left Leg: No evidence of DVT. Edema noted in knee and calf IMPRESSION: No evidence of deep vein thrombosis in both legs.
[2022-11-01] MEDS ORDERED: FUROSEMIDE 10 MG/ML 10 ML VIAL IV STA (00:57)
[2022-11-01 01:31] VITALS: BP 155/74; PULSE 87; RESP 15
== END 2022-11-01 01:31 | disposition home or self-care (01) ==
LOC: EC 22:22
DX: R60.0 Localized edema (principal); I11.9 Hypertensive heart disease without heart failure; I25.10 Atherosclerotic heart disease of native coronary artery without angina pectoris; E11.9 Type 2 diabetes mellitus without complications; K21.9 Gastro-esophageal reflux disease without esophagitis; E78.5 Hyperlipidemia, unspecified; I25.2 Old myocardial infarction; G47.30 Sleep apnea, unspecified; I63.9 Cerebral infarction, unspecified; F17.210 Nicotine dependence, cigarettes, uncomplicated; F41.9 Anxiety disorder, unspecified; F32.A Depression, unspecified; Z79.82 Long term (current) use of aspirin; Z79.4 Long term (current) use of insulin; Z79.84 Long term (current) use of oral hypoglycemic drugs; Z79.899 Other long term (current) drug therapy; Z91.013 Allergy to seafood; Z91.041 Radiographic dye allergy status; Z88.2 Allergy status to sulfonamides; Z88.8 Allergy status to other drugs, medicaments and biological substances; Z88.1 Allergy status to other antibiotic agents
CPT/HCPCS: 36415; 71046; 80053; 83735; 83880; 84484; 85025; 85610; 85730; 93005; 93970; 96374; 99284

== ENCOUNTER → 2022-11-28 | Outpatient (CLI) | payer OTHER ==
--- NOTE | 2022-11-28 20:33 | MR ---
EXAMINATION TYPE: MR thoracic spine wo/w con DATE OF EXAM: 11/28/2022 9:55 AM COMPARISON: CT most recently 06/10/2018 INDICATION: Patient age:Female; 52 years old; Reason for study: G35 MULTIPLE SCLEROSIS. MS, Pain TECHNIQUE: Multi planar, multi sequence imaging was performed utilizing: T1-weighted, short-tau inver kimberley recovery and T2-weighted of the thoracic spine. The patient was not given Gadolinium. IV Contrast: 10 cc Gadavist FINDINGS: The thoracic vertebral bodies have preserved heights. Mild wedging at T11 with increased kyphosis.. T he osseous structure have normal signal intensity. Thoracic spinal cord appears unremarkable. There i s no evidence of extradural defects or central spinal canal narrowing at any thoracic vertebral body level. Intervertebral discs demonstrate normal signal intensity. No abnormal postcontrast enhancemen t. IMPRESSION: 1. No evidence of demyelination or abnormal enhancement. The spinal cord signal is maintained. 2. No evidence for significant spinal canal or neural foraminal stenosis.
== END | disposition home or self-care (01) ==
LOC: RADMRIMAIN 08:40
PROVIDERS: ATTEND Psychiatry & Neurology Pain Medicine
DX: G35 Multiple sclerosis (principal)
CPT/HCPCS: 72157; A9585

== ENCOUNTER 2023-01-25 12:30 | Inpatient (IN) | payer OTHER ==
[2023-01-25] MEDS ORDERED: ASPIRIN 81 MG PO STA (12:38)
[2023-01-25] MEDS ORDERED: NITROGLYCERIN OINT 1 INCH/GM PACKET TOPICAL STA (12:38)
[2023-01-25] MEDS ORDERED: ONDANSETRON 4 MG/2 ML VIAL IVP STA (12:39)
[2023-01-25] MEDS ORDERED: hydrALAZINE HCL 20 MG/ML 1 ML VIAL IVP STA (13:12)
[2023-01-25 13:18] LABS: Anisocytosis Slight; Basophils # (A) 0.1 k/uL (0-0.2); Basophils % (A) 1 %; Eosinophils # (A) 0.3 k/uL (0-0.7); Eosinophils % (A) 3 %; HCT 46.7 % (34.0-46.0); HGB 15.2 gm/dL (11.4-16.0); Lymphocytes # (A) 2.3 k/uL (1.0-4.8); Lymphocytes % (A) 24 %; MCH 28.3 pg (25.0-35.0); MCHC 32.6 g/dL (31.0-37.0); MCV 86.8 fL (80.0-100.0); Mean Platelet Volume 9.7; Monocytes # (A) 0.4 k/uL (0-1.0); Monocytes % (A) 4 %; Neutrophils # (A) 6.4 k/uL (1.3-7.7); Neutrophils % (A) 67 %; Platelet Count 182 k/uL (150-450); RBC 5.38 m/uL (3.80-5.40); RDW 17.6 % (11.5-15.5); WBC 9.6 k/uL (3.8-10.6)
--- NOTE | 2023-01-25 13:29 | ED ---
General Adult HPI - General Chief complaint: Chest Pain Stated complaint: Chest Pain Time Seen by Provider: 01/25/23 12:30 Source: patient, RN notes reviewed, old records reviewed Mode of arrival: ambulatory Limitations: no limitations - History of Present Illness Initial comments: This is a 52-year-old female presents emergency Department with an extensive cardiac history. Patient states last 2-3 days she's been having vomiting and diarrhea. Patient states today she woke up and she had not vomited or diarrhea however she started having severe it of 10 substernal chest pain and some shortness of breath associated with it. Patient states took a nitroglycerin at home and it improved her chest pain. Patient states currently she still has some chest pain and some shortness of breath she no longer is nauseated. Patient denies any abdominal pain. Patient denies any headache patient denies lightheadedness or dizziness. Patient denies any numbness or weakness. Patient denies any swelling to the legs or calf tenderness. - Related Data Home Medications Medication Instructions Recorded Confirmed Pregabalin [Lyrica] 150 mg PO BID 06/25/15 10/16/22 lamoTRIgine 200 mg PO BID 07/30/16 10/16/22 Magnesium Gluconate [Magonate] 500 mg PO HS 03/27/17 10/16/22 Aspirin [Adult Low Dose Aspirin EC] 81 mg PO HS 11/26/17 10/16/22 Enalapril [Vasotec] 10 mg PO BID 11/26/17 10/16/22 DULoxetine HCL [Cymbalta] 60 mg PO DAILY 08/25/18 10/16/22 Isosorbide Mononitrate ER [Imdur] 60 mg PO DAILY 09/08/18 10/16/22 carvediloL [Coreg] 25 mg PO BID 01/22/19 10/16/22 ARIPiprazole [Abilify] 2 mg PO DAILY 11/08/20 10/16/22 Insulin Glargine,Hum.rec.anlog 30 unit SQ BID 11/08/20 10/16/22 [Lantus Solostar Pen] ALPRAZolam [Xanax] 2 mg PO DAILY 07/31/21 10/16/22 Atorvastatin [Lipitor] 40 mg PO DAILY 07/31/21 10/16/22 Cholecalciferol (Vitamin D3) 125 mcg PO HS 07/31/21 10/16/22 [Vitamin D3 (125 MCG = 5,000 IU)] Insulin Lispro Protamin/Lispro 25 unit SQ HS 07/20/22 10/16/22 [humaLOG MIX 75-25 Kwikpen] Insulin Lispro Protamin/Lispro 30 unit SQ DAILY 07/20/22 10/16/22 [humaLOG MIX 75-25 Kwikpen] Citalopram Hydrobromide [CeleXA] 20 mg PO DAILY 09/01/22 10/16/22 Albuterol Nebulized [Ventolin 2.5 mg INHALATION RT-QID PRN 10/06/22 10/16/22 Nebulized] Empagliflozin [Jardiance] 10 mg PO DAILY 10/06/22 10/16/22 Famotidine 20 mg PO DAILY 10/06/22 10/16/22 Nitroglycerin Sl Tabs [Nitrostat] 0.4 mg SL Q5M PRN 10/06/22 10/16/22 Ondansetron Odt [Zofran ODT] 8 mg PO TID PRN 10/06/22 10/16/22 Pioglitazone [Actos] 15 mg PO DAILY 10/06/22 10/16/22 Promethazine [Phenergan] 25 mg PO Q6H PRN 10/06/22 10/16/22 Previous Rx's Medication Instructions Recorded amLODIPine [Norvasc] 10 mg PO DAILY 30 Days #30 tab 01/17/22 Pantoprazole Sodium [Protonix] 40 mg PO DAILY 30 Days #30 tab 03/20/22 Ferrous Sulfate [Iron (65 MG 325 mg PO DAILY 30 Days #30 tab 10/08/22 Elemental)] Lacosamide [Vimpat] 50 mg PO BID 28 Days #14 tab 10/18/22 hydrALAZINE HCL [Apresoline] 25 mg PO BID 30 Days #60 tab 10/18/22 Allergies Allergy/AdvReac Type Severity Reaction Status Date / Time Fish Containing Products Allergy Anaphylaxis Verified 01/25/23 12:37 Iodinated Contrast Media Allergy Anaphylaxis Verified 01/25/23 12:37 [Iodinated Contrast Media - IV Dye] Sulfa (Sulfonamide Allergy Anaphylaxis Verified 01/25/23 12:37 Antibiotics) sulfamethoxazole Allergy Anaphylaxis Verified 01/25/23 12:37 [From Septra] tree nut [Nut] Allergy Anaphylaxis Verified 01/25/23 12:37 trimethoprim [From Junra] Allergy Anaphylaxis Verified 01/25/23 12:37 Review of Systems ROS Statement: Those systems with pertinent positive or pertinent negative responses have been documented in the HPI. ROS Other: All systems not noted in ROS Statement are negative. 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 Last Myocardial Infarction Date:: Pt thinks 2015 History of Any Multi-Drug Resistant Organisms: None Reported Past Surgical History: Section, Cholecystectomy, Heart Catheterization With Stent, Hysterectomy, Tubal Ligation, Uterine Ablation Additional Past Surgical History / Comment(s): vein stripping right leg, radio frequency ablation of right back-02/22/2015, four stents on 04/03/16 and one on march 05, ovaries removed, colonscopy- polyp removal Past Anesthesia/Blood Transfusion Reactions: Motion Sickness Additional Past Anesthesia/Blood Transfusion Reaction / Comment(s): mild claustrophobia Date of Last Stent Placement:: 04/03/16 Past Psychological History: Anxiety, Depression Smoking Status: Current every day smoker Past Alcohol Use History: None Reported Past Drug Use History: None Reported - Past Family History Father Family Medical History: Congestive Heart Failure (CHF), Coronary Artery Disease (CAD), Diabetes Mellitus Mother Family Medical History: Cancer, COPD, Hypertension, Respiratory Disorder Additional Family Medical History / Comment(s): emphysema, colon CA General Exam - General Exam Comments Initial Comments: GENERAL: Patient is well-developed and well-nourished. Patient is nontoxic and well- hydrated and is in mild distress. ENT: Neck is soft and supple. No significant lymphadenopathy is noted. Oropharynx is clear. Moist mucous membranes. Neck has full range of motion without eliciting any pain. EYES: The sclera were anicteric and conjunctiva were pink and moist. Extraocular movements were intact and pupils were equal round and reactive to light. Eyelids were unremarkable. PULMONARY: Unlabored respirations. Good breath sounds bilaterally. No audible rales rhonchi or wheezing was noted. CARDIOVASCULAR: There is a regular rate and rhythm without any murmurs gallops or rubs. ABDOMEN: Soft and nontender with normal bowel sounds. No palpable organomegaly was noted. There is no palpable pulsatile mass. SKIN: Skin is clear with no lesions or rashes and otherwise unremarkable. NEUROLOGIC: Patient is alert and oriented x3. Cranial nerves II through XII are grossly intact. Motor and sensory are also intact. Normal speech, volume and content. Symmetrical smile. MUSCULOSKELETAL: Normal extremities with adequate strength and full range of motion. LYMPHATICS: No significant lymphadenopathy is noted PSYCHIATRIC: Normal psychiatric evaluation. Limitations: no limitations Course Vital Signs 01/25/23 01/25/23 01/25/23 12:33 13:06 14:06 Temperature 98.0 F Pulse Rate 59 L 61 66 Respiratory 18 18 18 Rate Blood Pressure 202/92 225/77 188/82 O2 Sat by Pulse 92 L 94 L 94 L Oximetry Medical Decision Making - Medical Decision Making EKG was interpreted by myself shows a sinus bradycardia at 59 bpm WI interval 152 QRS is 177 QT interval is 45 QTC is 44 per patient's EKG shows a right bundle branch block. Was pt. sent in by a medical professional or institution ([facility], [employer], urgent care, hospital, or long-term...) When possible be specific @ -No Did you speak to anyone other than the patient for history (EMS, parent, family, police, friend...)? What history was obtained from this source @ -EMS gave quite a bit of the history. Did you review nursing and triage notes (agree or disagree)? Why? @ -I reviewed and agree with nursing and triage notes Were old charts reviewed (outside hosp., previous admission, EMS record, old EKG, old radiological studies, urgent care reports/EKG's, long-term records)? Report findings @ -I reviewed prior charts labs and EKGs. Differential Diagnosis (chest pain, altered mental status, abdominal pain women, abdominal pain men, vaginal bleeding, weakness, fever, dyspnea, syncope, headache, dizziness, GI bleed, back pain, seizure, CVA, palpatations, mental health, musculoskeletal)? @ -Differential Chest Pain: Stable Angina, Unstable Angina, STEMI, NSTEMI Aortic Dissection, Pneumothorax, Musculoskeletal, Esophageal Spasm GERD, Cholecystitis, Pancreatitis, Zoster, this is not meant to be an all-inclusive list. EKG interpreted by me (3pts min.). @ -As above X-rays interpreted by me (1pt min.). @ -Chest x-ray was interpreted by myself shows no acute abnormality. CT interpreted by me (1pt min.). @ -None done U/S interpreted by me (1pt. min.). @ -None done What testing was considered but not performed or refused? (CT, X-rays, U/S, labs)? Why? @ -None What meds were considered but not given or refused? Why? @ -None Did you discuss the management of the patient with other professionals (professionals i.e. , PA, [employer], lab, RT, psych nurse, social contact worker, pipe turner, teacher, drug abuse resistance education officer, [employer])? Give summary @ -Dr. Sanchez he agreed to admit the patient admitted the patient wrote admitting orders Was smoking cessation discussed for >3mins.? @ -No Was critical care preformed (if so, how long)? @ -No Were there social determinants of health that impacted care today? How? (Homelessness, low income, unemployed, alcoholism, drug addiction, transportation, low edu. Level, literacy, decrease access to med. care, long term, rehab)? @ -No Was there de-escalation of care discussed even if they declined (Discuss DNR or withdrawal of care, Hospice)? DNR status @ -No What co-morbidities impacted this encounter? (DM, HTN, Smoking, COPD, CAD, Can cer, CVA, ARF, Chemo, Hep., AIDS, mental health diagnosis, sleep apnea, morbid obesity)? @ -80s, high blood pressure, CAD Was patient admitted / discharged? Hospital course, mention meds given and route, prescriptions, significant lab abnormalities, going to OR and other pertinent info. @ -Patient came in complaining of chest pain nitroglycerin helped her pain considerably. Patient no longer was nauseated. She states she has been for the last 2 or 3 days. Patient did have high blood pressure she told me she did not take her blood pressure medications. So I gave her 20 of hydralazine emergency department she also received aspirin and Nitropaste. I spoke with Dr. Sanchez he agreed to admit the patient admitted the patient wrote admitting orders. Undiagnosed new problem with uncertain prognosis? @ -No Drug Therapy requiring intensive monitoring for toxicity (Heparin, Nitro, Insulin, Cardizem)? @ -No Were any procedures done? @ -No Diagnosis/symptom? @ -Chest pain Acute, or Chronic, or Acute on Chronic? @ -Acute Uncomplicated (without systemic symptoms) or Complicated (systemic symptoms)? @ -Complicated Side effects of treatment? @ -No Exacerbation, Progression, or Severe Exacerbation? @ -No Poses a threat to life or bodily function? How? (Chest pain, USA, AL, pneumonia, PE, COPD, DKA, ARF, appy, cholecystitis, CVA, Diverticulitis, Homicidal, Suicidal, threat to staff... and all critical care pts) @ -This could lead end organ dysfunction the patient were to have an AL. Diagnosis/symptom? @ -Hypertensive urgency Acute, or Chronic, or Acute on Chronic? @ -Acute Uncomplicated (without systemic symptoms) or Complicated (systemic symptoms)? @ -Complicated Side effects of treatment? @ -none Exacerbation, Progression, or Severe Exacerbation] @ -no Poses a threat to life or bodily function? @ -Yes this knee to hypertensive emergency Diagnosis/symptom? @ -Gastroenteritis Acute, or Chronic, or Acute on Chronic? @ -Acute Uncomplicated (without systemic symptoms) or Complicated (systemic symptoms)? @ -Uncomplicated Side effects of treatment? @ -none Exacerbation, Progression, or Severe Exacerbation] @ -no Poses a threat to life or bodily function? @ -no - Lab Data Result diagrams: 01/25/23 13:06 01/25/23 13:06 Lab Results 01/25/23 01/25/23 01/25/23 Range/Units 13:06 13:06 13:06 WBC 9.6 (3.8-10.6) k/uL RBC 5.38 (3.80-5.40) m/uL Hgb 15.2 (11.4-16.0) gm/dL Hct 46.7 H (34.0-46.0) % MCV 86.8 (80.0-100.0) fL MCH 28.3 (25.0-35.0) pg MCHC 32.6 (31.0-37.0) g/dL RDW 17.6 H (11.5-15.5) % Plt Count 182 (150-450) k/uL MPV 9.7 Neutrophils % 67 % Lymphocytes % 24 % Monocytes % 4 % Eosinophils % 3 % Basophils % 1 % Neutrophils # 6.4 (1.3-7.7) k/uL Lymphocytes # 2.3 (1.0-4.8) k/uL Monocytes # 0.4 (0-1.0) k/uL Eosinophils # 0.3 (0-0.7) k/uL Basophils # 0.1 (0-0.2) k/uL Anisocytosis Slight PT 10.7 (9.0-12.0) sec INR 1.0 (<1.2) APTT 27.5 (22.0-30.0) sec Sodium 137 (137-145) mmol/L Potassium 3.7 (3.5-5.1) mmol/L Chloride 103 (98-107) mmol/L Carbon Dioxide 26 (22-30) mmol/L Anion Gap 8 mmol/L BUN 20 H (7-17) mg/dL Creatinine 1.12 H (0.52-1.04) mg/dL Est GFR (CKD-EPI)AfAm 66 (>60 ml/min/1.73 sqM) Est GFR (CKD-EPI)NonAf 57 (>60 ml/min/1.73 sqM) Glucose 334 H (74-99) mg/dL Calcium 10.3 H (8.4-10.2) mg/dL Magnesium 1.7 (1.6-2.3) mg/dL Total Bilirubin 0.3 (0.2-1.3) mg/dL AST 23 (14-36) U/L ALT 24 (4-34) U/L Alkaline Phosphatase 153 H (38-126) U/L Troponin I (0.000-0.034) ng/mL Total Protein 5.9 L (6.3-8.2) g/dL Albumin 3.4 L (3.5-5.0) g/dL Acetone, Qual Negative (Negative) 01/25/23 Range/Units 13:06 WBC (3.8-10.6) k/uL RBC (3.80-5.40) m/uL Hgb (11.4-16.0) gm/dL Hct (34.0-46.0) % MCV (80.0-100.0) fL MCH (25.0-35.0) pg MCHC (31.0-37.0) g/dL RDW (11.5-15.5) % Plt Count (150-450) k/uL MPV Neutrophils % % Lymphocytes % % Monocytes % % Eosinophils % % Basophils % % Neutrophils # (1.3-7.7) k/uL Lymphocytes # (1.0-4.8) k/uL Monocytes # (0-1.0) k/uL Eosinophils # (0-0.7) k/uL Basophils # (0-0.2) k/uL Anisocytosis PT (9.0-12.0) sec INR (<1.2) APTT (22.0-30.0) sec Sodium (137-145) mmol/L Potassium (3.5-5.1) mmol/L Chloride (98-107) mmol/L Carbon Dioxide (22-30) mmol/L Anion Gap mmol/L BUN (7-17) mg/dL Creatinine (0.52-1.04) mg/dL Est GFR (CKD-EPI)AfAm (>60 ml/min/1.73 sqM) Est GFR (CKD-EPI)NonAf (>60 ml/min/1.73 sqM) Glucose (74-99) mg/dL Calcium (8.4-10.2) mg/dL Magnesium (1.6-2.3) mg/dL Total Bilirubin (0.2-1.3) mg/dL AST (14-36) U/L ALT (4-34) U/L Alkaline Phosphatase (38-126) U/L Troponin I 0.027 (0.000-0.034) ng/mL Total Protein (6.3-8.2) g/dL Albumin (3.5-5.0) g/dL Acetone, Qual (Negative) Disposition Clinical Impression: Chest pain, Hypertensive urgency, Gastroenteritis Disposition: ADMITTED IP TO THIS HOSP Referrals: Dagmar Hennessy MD [Primary Care Provider] - 1-2 days Time of Disposition: 14:39
--- NOTE | 2023-01-25 13:35 | XR ---
EXAMINATION TYPE: XR chest 2V DATE OF EXAM: 01/25/2023 COMPARISON: 10/31/2022 HISTORY: Shortness of breath TECHNIQUE: Frontal and lateral views of the chest are obtained. FINDINGS: Scattered senescent parenchymal changes noted. Hyperinflation compatible with COPD. No evidence for infiltrate. No evidence for atelectasis. Heart size is stable. Mediastinal structures are stable and grossly unremarkable. No evidence for hilar prominence. Degenerative changes dorsal spine. IMPRESSION: 1. No evidence for acute pulmonary disease.
[2023-01-25 13:38] LABS: ALT 24 U/L (4-34); AST 23 U/L (14-36); African American GFR (CKD) 66 (>60 ml/min/1.73 sqM); Albumin 3.4 g/dL (3.5-5.0); Alkaline Phosphatase 153 U/L (38-126); Anion Gap 8 mmol/L; Blood Urea Nitrogen 20 mg/dL (7-17); Calcium 10.3 mg/dL (8.4-10.2); Carbon Dioxide 26 mmol/L (22-30); Chloride 103 mmol/L (98-107); Glucose 334 mg/dL (74-99); Magnesium 1.7 mg/dL (1.6-2.3); Non-African American GFR(CKD) 57 (>60 ml/min/1.73 sqM); Potassium 3.7 mmol/L (3.5-5.1); Sodium 137 mmol/L (137-145); Total Bilirubin 0.3 mg/dL (0.2-1.3); Total Protein 5.9 g/dL (6.3-8.2)
[2023-01-25 13:51] LABS: Partial Thromboplastin Time 27.5 sec (22.0-30.0); Prothrombin Time 10.7 sec (9.0-12.0)
[2023-01-25] MEDS ORDERED: NITROGLYCERIN SL TABS 0.4 MG TAB SUBLINGUAL PRN (14:40)
[2023-01-25] MEDS: NITROGLYCERIN OINT 1 INCH/GM PACKET TOPICAL SCH ×2 (17:21→23:25)
[2023-01-25] MEDS ORDERED: HEPARIN SODIUM 1,000 UN/ML (10ML VL) IV ONE (18:47)
[2023-01-25] MEDS ORDERED: HEPARIN SODIUM 1,000 UN/ML (10ML VL) IV PRN (18:47)
[2023-01-25] MEDS ORDERED: HEPARIN SOD,PORK IN 0.45% NACL 25,000 UNIT in 0.45% NACL 1 250ML.BAG IV SCH (19:00)
[2023-01-25 20:23] LABS: Glucose,Whole Blood 257 mg/dL (70-110)
[2023-01-25] MEDS ORDERED: ALBUTEROL NEBULIZED 2.5 MG/3 ML INHALATION PRN (20:39)
[2023-01-25] MEDS ORDERED: ATORVASTATIN 40 MG TAB PO SCH (21:00)
[2023-01-25] MEDS: ALPRAZolam 1 MG TAB PO SCH (21:05)
[2023-01-25] MEDS: INSULN ASP PRT/INSULIN ASPART 100 UNIT/ML 10 ML VIAL SQ SCH (21:05)
[2023-01-25] MEDS: MAGNESIUM OXIDE 400 MG TAB PO SCH (21:05)
[2023-01-25] MEDS: PREGABALIN 75 MG CAP PO SCH (21:05)
[2023-01-25] MEDS: lisinopriL 20 MG TAB PO SCH (21:05)
[2023-01-25] MEDS: CHOLECALCIFEROL 25 MCG (1000 IU) TABLET PO SCH (21:05)
[2023-01-25] MEDS: LACOSAMIDE 50 MG TABLET PO SCH (21:05)
[2023-01-25] MEDS: hydrALAZINE HCL 25 MG TAB PO SCH (21:05)
[2023-01-25] MEDS: MULTIVITAMINS, THERA 1 EACH TAB PO SCH (21:05)
[2023-01-25] MEDS: carvediloL 12.5 MG TAB PO SCH (21:09)
[2023-01-25] MEDS: HYDROcodone/APAP 7.5-325MG 1 EACH TAB PO SCH (21:10)
[2023-01-26 01:43] LABS: Partial Thromboplastin Time 34.4 sec (22.0-30.0); Prothrombin Time 10.7 sec (9.0-12.0)
[2023-01-26 06:04] LABS: Glucose,Whole Blood 167 mg/dL (70-110)
[2023-01-26] MEDS: NITROGLYCERIN OINT 1 INCH/GM PACKET TOPICAL SCH (06:05)
[2023-01-26] MEDS: PANTOPRAZOLE 40 MG TABLET PO SCH (06:06)
[2023-01-26] MEDS: carvediloL 12.5 MG TAB PO SCH ×2 (06:06→16:56)
[2023-01-26] MEDS: lisinopriL 20 MG TAB PO SCH ×2 (08:59→22:25)
[2023-01-26] MEDS: DULoxetine HCL 60 MG CAPSULE.DR PO SCH (08:59)
[2023-01-26] MEDS: ISOSORBIDE MONONITRATE ER 60 MG TAB.ER.24H PO SCH (08:59)
[2023-01-26] MEDS: hydrALAZINE HCL 25 MG TAB PO SCH ×2 (08:59→22:34)
[2023-01-26] MEDS: MULTIVITAMINS, THERA 1 EACH TAB PO SCH ×2 (09:00→22:24)
[2023-01-26] MEDS ORDERED: amLODIPine 10 MG TAB PO SCH (09:00)
[2023-01-26] MEDS: NIFEdipine XL 90 MG TAB.ER.24 PO SCH (09:00)
[2023-01-26] MEDS: FENOFIBRATE 160 MG TAB PO SCH (09:00)
[2023-01-26] MEDS: FERROUS SULFATE 325 MG TAB PO SCH (09:00)
[2023-01-26] MEDS: ASPIRIN 325 MG TAB PO SCH (09:01)
[2023-01-26] MEDS: PREGABALIN 75 MG CAP PO SCH ×2 (09:01→22:23)
[2023-01-26] MEDS: lamoTRIgine 25 MG TAB PO SCH ×2 (09:01→22:34)
[2023-01-26] MEDS: lamoTRIgine 100 MG TAB PO SCH ×2 (09:01→22:34)
[2023-01-26] MEDS: CLOPIDOGREL 75 MG TAB PO SCH (09:01)
[2023-01-26] MEDS: FAMOTIDINE 20 MG TAB PO SCH (09:01)
[2023-01-26] MEDS: LACOSAMIDE 50 MG TABLET PO SCH ×2 (09:02→22:25)
[2023-01-26] MEDS: PIOGLITAZONE 15 MG TAB PO SCH (09:02)
[2023-01-26] MEDS: DAPAGLIFLOZIN PROPANEDIOL 5 MG TABLET PO SCH (09:03)
[2023-01-26] MEDS: INSULN ASP PRT/INSULIN ASPART 100 UNIT/ML 10 ML VIAL SQ SCH ×2 (09:08→22:22)
--- NOTE | 2023-01-26 11:07 | P.CRDCN ---
History of Present Illness Consult date: 01/26/23 Consult reason: chest pain (Hypertensive urgency) History of present illness: History of present illness: This is a 52-year-old female patient of Dr. Alma Delia Jasso with past medical history of coronary artery disease with prior stenting of the LAD and diagonal RCA as well as history of stroke as well as hypertension and dyslipidemia and diabetes and smoking and multiple comorbid conditions. We requested to see the patient for further evaluation of chest pain and hypertensive urgency. Patient is sleeping, she wakes only to give a 1 word answer does not open her eyes. History cannot be obtained from the patient. According to the ER records, patient has had vomiting and diarrhea for the past 2-3 days and then developed severe 10/10 chest pain with shortness of breath. [facility] which improved her chest pain. By the time she was in the emergency center she was still having chest pain and shortness of breath but no nausea or vomiting. Her initial blood pressure 202/90 200 this morning at 147/81. EKG sinus bradycardia, right bundle branch block Chest x-ray: No acute pulmonary disease WBC 9.6, hemoglobin 15.2, platelet count 182. INR 1.0. Electrolytes are normal. BUN 20 creatinine 1.12. Blood sugar 334. A1c in December 05 0.9. Alkaline phosphatase 153 otherwise liver function tests are normal. Magnesium 1.7. Acetone negative. Home cardiac medications: Aspirin 81 mg daily, Lipitor 40 mg daily, Coreg 25 mg twice daily, Plavix 75 mg daily, Jardiance 10 mg daily, fenofibrate 160 mg daily, hydralazine 25 mg daily, Imdur 60 mg daily, Nitrostat as needed Review Of Systems: At the time of my evaluation: Constitutional: No fever, no chills. No weakness, fatigue or lethargy. EENT: No headache. No dizziness. Lungs: No shortness of breath, cough, no sputum production. No wheezing. Cardiovascular: No chest pain, no lower extremity edema. No palpitations. No paroxysmal nocturnal dyspnea. No orthopnea. No lightheadedness or dizziness. No syncopal episodes. Abdominal: No abdominal pain. No nausea, vomiting. No diarrhea. No constipation. No bloody or tarry stools. Genitourinary: No dysuria.. No urinary retention. Musculoskeletal: No myalgias. No muscle weakness, no frequent falls. No back pain. No neck pain. Integumentary: No wounds. No rash. No unusual bruising. Neurologic: No aphasia. No facial droop. No change in mentation. No head injury. No headache. Physical examination: Gen: This is a 52 year old obese female. She is sleeping, makes 1 word verbalization otherwise does not wake up for evaluation VS: reviewed HEENT: Head is atraumatic, normocephalic. Pupils equal, round. Sclerae is anicteric. NECK: Supple. No JVD. LUNGS: Clear to auscultation. No wheezes or rhonchi. No intercostal retractions. HEART: Regular rate and rhythm. Systolic murmur. ABDOMEN: Soft No tenderness. EXTREMITIES: No pedal edema. No calf tenderness. NEUROLOGICAL: Patient is sleeping. Assessment: Hypertensive urgency Reported chest pain Gastroenteritis Coronary artery disease with prior stenting Stroke Hypertension Dyslipidemia Diabetes History of smoking Plan: Discontinue heparin drip Resume patient's home medications Discontinue amlodipine and start patient on Procardia 90 mg daily Increase Lipitor to 80 mg daily Obtain 2-D echocardiogram and Doppler study to assess cardiac structure and function Further recommendations to follow based upon clinical course Thank you kindly for this consultation. Nurse practitioner note has been reviewed, I agree with documented findings and plan of care. Patient was seen and examined. 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 Last Myocardial Infarction Date:: Pt thinks 2015 History of Any Multi-Drug Resistant Organisms: None Reported Past Surgical History: Section, Cholecystectomy, Heart Catheterization With Stent, Hysterectomy, Tubal Ligation, Uterine Ablation Additional Past Surgical History / Comment(s): vein stripping right leg, radio frequency ablation of right back-02/22/2015, four stents on 6/7/16 and one on march 05, ovaries removed, colonscopy- polyp removal Past Anesthesia/Blood Transfusion Reactions: Motion Sickness Additional Past Anesthesia/Blood Transfusion Reaction / Comment(s): mild claustrophobia Date of Last Stent Placement:: 04/03/16 Past Psychological History: Anxiety, Depression Additional Psychological History / Comment(s): Pt resides with her spouse. She is mostly in her wheelchair. She has a walker and cane. She has a dexcom. Her spouse assists her with her medication organization. Spouse also drives pt. Smoking Status: Current every day smoker Past Alcohol Use History: None Reported Additional Past Alcohol Use History / Comment(s): Pt started smoking in 1988 and is alittle less than a ppd smoker. Past Drug Use History: None Reported - Past Family History Father Family Medical History: Congestive Heart Failure (CHF), Coronary Artery Disease (CAD), Diabetes Mellitus Mother Family Medical History: Cancer, COPD, Hypertension, Respiratory Disorder Additional Family Medical History / Comment(s): emphysema, colon CA Medications and Allergies Home Medications Medication Instructions Recorded Confirmed Type Pregabalin [Lyrica] 150 mg PO BID 06/25/15 01/25/23 History Magnesium Gluconate [Magonate] 500 mg PO HS 03/27/17 01/25/23 History Aspirin [Adult Low Dose Aspirin EC] 81 mg PO HS 11/26/17 01/25/23 History DULoxetine HCL [Cymbalta] 60 mg PO DAILY 08/25/18 01/25/23 History Isosorbide Mononitrate ER [Imdur] 60 mg PO DAILY 09/08/18 01/25/23 History carvediloL [Coreg] 25 mg PO BID 01/22/19 01/25/23 History ARIPiprazole [Abilify] 2 mg PO DAILY 11/08/20 01/25/23 History ALPRAZolam [Xanax] 2 mg PO HS 07/31/21 01/25/23 History Atorvastatin [Lipitor] 40 mg PO HS 07/31/21 01/25/23 History Pantoprazole Sodium [Protonix] 40 mg PO DAILY 30 Days #30 tab 03/20/22 01/25/23 Rx Insulin Lispro Protamin/Lispro 45 unit SQ HS 07/20/22 01/25/23 History [humaLOG MIX 75-25 Kwikpen] Insulin Lispro Protamin/Lispro 50 unit SQ DAILY 07/20/22 01/25/23 History [humaLOG MIX 75-25 Kwikpen] Albuterol Nebulized [Ventolin 2.5 mg INHALATION RT-QID PRN 10/06/22 01/25/23 History Nebulized] Empagliflozin [Jardiance] 10 mg PO DAILY 10/06/22 01/25/23 History Famotidine 20 mg PO DAILY 10/06/22 01/25/23 History Nitroglycerin Sl Tabs [Nitrostat] 0.4 mg SL Q5M PRN 10/06/22 01/25/23 History Pioglitazone [Actos] 15 mg PO DAILY 10/06/22 01/25/23 History Promethazine [Phenergan] 25 mg PO Q6H PRN 10/06/22 01/25/23 History Ferrous Sulfate [Iron (65 MG 325 mg PO DAILY 30 Days #30 tab 10/08/22 01/25/23 Rx Elemental)] Lacosamide [Vimpat] 50 mg PO BID 28 Days #14 tab 10/18/22 01/25/23 Rx Cholecalciferol [Vitamin D3 (25 25 mcg PO HS 01/25/23 01/25/23 History Mcg = 1000 Iu)] Clopidogrel [Plavix] 75 mg PO DAILY 01/25/23 01/25/23 History Fenofibrate [Lofibra] 160 mg PO DAILY 01/25/23 01/25/23 History HYDROcodone/APAP 7.5-325MG [Hobbs 1 tab PO HS 01/25/23 01/25/23 History 7.5-325] Ketorolac [Toradol] 10 mg PO DIRECTED PRN 01/25/23 01/25/23 History Multivit-Min/Folic Acid/Wof150 1 tab PO BID 01/25/23 01/25/23 History [Alive Premium Adult Multivit] Rimegepant Sulfate [Nurtec Odt] 75 mg PO DAILY PRN 01/25/23 01/25/23 History hydrALAZINE HCL [Apresoline] 25 mg PO DAILY 01/25/23 01/25/23 History lamoTRIgine [LaMICtal Xr] 250 mg PO DAILY 01/25/23 01/25/23 History Allergies Allergy/AdvReac Type Severity Reaction Status Date / Time Fish Containing Products Allergy Anaphylaxis Verified 01/25/23 15:50 Iodinated Contrast Media Allergy Anaphylaxis Verified 01/25/23 15:50 [Iodinated Contrast Media - IV Dye] Sulfa (Sulfonamide Allergy Anaphylaxis Verified 01/25/23 15:50 Antibiotics) sulfamethoxazole Allergy Anaphylaxis Verified 01/25/23 15:50 [From ] tree nut [Nut] Allergy Anaphylaxis Verified 01/25/23 15:50 trimethoprim [From ] Allergy Anaphylaxis Verified 01/25/23 15:50 Physical Exam Vitals: Vital Signs Temp Pulse Pulse Resp BP BP Pulse Ox 01/26/23 03:12 98.7 F 66 15 147/81 92 L 01/25/23 23:31 97.9 F 70 18 152/75 93 L 01/25/23 20:20 97.9 F 71 18 147/81 93 L 01/25/23 19:28 98.8 F 69 16 141/80 97 01/25/23 17:22 95 01/25/23 17:17 66 18 159/70 84 L 01/25/23 15:16 67 18 171/83 97 01/25/23 14:06 66 18 188/82 94 L 01/25/23 13:06 61 18 225/77 94 L 01/25/23 12:33 98.0 F 59 L 18 202/92 92 L Intake and Output 01/25/23 01/26/23 01/26/23 22:59 06:59 14:59 Intake Total 64.5 Output Total 400 Balance -335.5 Intake: Intake, IV Titration 64.5 Amount Heparin Sod,Pork in 0.45% 64.5 NaCl 25,000 unit In 0.45 % NaCl 1 250ml.bag @ 10. 599 UNITS/KG/HR 10 mls/hr IV .Q24H [facility] Rx#: [id number] Output: Stool 400 Other: # Voids 1 Weight 94.347 kg Results 01/25/23 13:06 01/25/23 13:06 Cardiac Enzymes 01/25/23 01/25/23 01/25/23 Range/Units 13:06 13:06 16:21 AST 23 (14-36) U/L Troponin I 0.027 0.039 H* (0.000-0.034) ng/mL 01/25/23 Range/Units 19:45 AST (14-36) U/L Troponin I 0.026 (0.000-0.034) ng/mL Coagulation 01/25/23 01/26/23 Range/Units 13:06 00:42 PT 10.7 10.7 (9.0-12.0) sec APTT 27.5 34.4 H (22.0-30.0) sec CBC 01/25/23 Range/Units 13:06 WBC 9.6 (3.8-10.6) k/uL RBC 5.38 (3.80-5.40) m/uL Hgb 15.2 (11.4-16.0) gm/dL Hct 46.7 H (34.0-46.0) % Plt Count 182 (150-450) k/uL Comprehensive Metabolic Panel 01/25/23 Range/Units 13:06 Sodium 137 (137-145) mmol/L Potassium 3.7 (3.5-5.1) mmol/L Chloride 103 (98-107) mmol/L Carbon Dioxide 26 (22-30) mmol/L BUN 20 H (7-17) mg/dL Creatinine 1.12 H (0.52-1.04) mg/dL Glucose 334 H (74-99) mg/dL Calcium 10.3 H (8.4-10.2) mg/dL AST 23 (14-36) U/L ALT 24 (4-34) U/L Alkaline Phosphatase 153 H (38-126) U/L Total Protein 5.9 L (6.3-8.2) g/dL Albumin 3.4 L (3.5-5.0) g/dL Current Medications Generic Name Dose Route Start Last Admin Trade Name Freq PRN Reason Stop Dose Admin Hydrocodone Bitart/Acetaminophen 1 each 01/25/23 21:00 01/25/23 21:10 Hydrocodone/Apap 7.5-325mg 1 Each Tab PO Not Given HS SARAHY Albuterol Sulfate 2.5 mg 01/25/23 20:39 Albuterol Nebulized 2.5 Mg/3 Ml INHALATION RT-QID PRN Shortness Of Breath Alprazolam 2 mg 01/25/23 21:00 01/25/23 21:05 Alprazolam 1 Mg Tab PO 2 mg HS SARAHY Administration Amlodipine Besylate 10 mg 04/01/23 09:00 Amlodipine 10 Mg Tab PO DAILY [facility] Aripiprazole 2 mg 01/26/23 09:00 Aripiprazole 2 Mg Tab PO DAILY [facility] Aspirin 325 mg 01/26/23 09:00 Aspirin 325 Mg Tab PO DAILY [facility] Atorvastatin Calcium 40 mg 01/25/23 21:00 01/25/23 21:05 Atorvastatin 40 Mg Tab PO 40 mg HS [facility] Administration Carvedilol 25 mg 01/25/23 21:00 01/26/23 06:06 Carvedilol 12.5 Mg Tab PO 25 mg BID-W/MEALS [facility] Administration Cholecalciferol 25 mcg 01/25/23 21:00 01/25/23 21:05 Cholecalciferol 25 Mcg (1000 Iu) Tablet PO 25 mcg HS [facility] Administration Clopidogrel Bisulfate 75 mg 01/26/23 09:00 Clopidogrel 75 Mg Tab PO DAILY [facility] Dapagliflozin 5 mg 01/26/23 09:00 Dapagliflozin Propanediol 5 Mg Tablet PO DAILY [facility] Duloxetine HCl 60 mg 01/26/23 09:00 Duloxetine Hcl 60 Mg Capsule.Dr PO DAILY [facility] Famotidine 20 mg 01/26/23 09:00 Famotidine 20 Mg Tab PO DAILY [facility] Fenofibrate 160 mg 01/26/23 09:00 Fenofibrate 160 Mg Tab PO DAILY [facility] Ferrous Sulfate 325 mg 01/26/23 09:00 Ferrous Sulfate 325 Mg Tab PO DAILY [facility] Heparin Sodium (Porcine) 0 unit 01/25/23 18:47 01/26/23 01:50 Heparin Sodium 1,000 Un/Ml (10ml Vl) IV 2,300 unit PER PROTOCOL PRN Administration Low PTT Protocol Hydralazine HCl 25 mg 01/25/23 21:00 01/25/23 21:05 Hydralazine Hcl 25 Mg Tab PO 25 mg BID [facility] Administration Heparin Sodium/Sodium Chloride 250 mls @ 10 mls/hr 01/25/23 19:00 01/26/23 01:51 25,000 unit/ Sodium Chloride IV 12.599 units/kg/hr .Q24H [facility] 11.887 mls/hr Titration Protocol 10.599 UNITS/KG/HR Insulin Aspart 45 unit 01/25/23 21:00 01/25/23 21:05 Insuln Asp Prt/Insulin Aspart 100 Unit/Ml 10 Ml Vial SQ 45 unit HS [facility] Administration Insulin Aspart 50 unit 01/26/23 09:00 Insuln Asp Prt/Insulin Aspart 100 Unit/Ml 10 Ml Vial SQ DAILY SARAHY Isosorbide Mononitrate 60 mg 01/26/23 09:00 Isosorbide Mononitrate Er 60 Mg Tab.Er.24h PO DAILY SARAHY Lacosamide 50 mg 01/25/23 21:00 01/25/23 21:05 Lacosamide 50 Mg Tablet PO 50 mg BID SARAHY Administration Lamotrigine 200 mg 01/26/23 09:00 Lamotrigine 100 Mg Tab PO BID SARAHY Lamotrigine 25 mg 01/26/23 09:00 Lamotrigine 25 Mg Tab PO BID SARAHY Lisinopril 20 mg 01/25/23 21:00 01/25/23 21:05 Lisinopril 20 Mg Tab PO 20 mg BID SARAHY Administration Magnesium Oxide 400 mg 01/25/23 21:00 01/25/23 21:05 Magnesium Oxide 400 Mg Tab PO 400 mg HS [facility] Administration Multivitamins 1 each 01/25/23 21:00 01/25/23 21:05 Multivitamins, Thera 1 Each Tab PO 1 each BID [facility] Administration Nitroglycerin 0.4 mg 01/25/23 14:40 Nitroglycerin Sl Tabs 0.4 Mg Tab SUBLINGUAL Q5M PRN Chest Pain Pantoprazole Sodium 40 mg 01/26/23 07:30 01/26/23 06:06 Pantoprazole 40 Mg Tablet PO 40 mg AC-BRKFST [facility] Administration Pioglitazone HCl 15 mg 01/26/23 09:00 Pioglitazone 15 Mg Tab PO DAILY [facility] Pregabalin 150 mg 01/25/23 21:00 01/25/23 21:05 Pregabalin 75 Mg Cap PO 150 mg BID SARAHY Administration Intake and Output 01/25/23 01/26/23 01/26/23 22:59 06:59 14:59 Intake Total 64.5 Output Total 400 Balance -335.5 Intake: Intake, IV Titration 64.5 Amount Heparin Sod,Pork in 0.45% 64.5 NaCl 25,000 unit In 0.45 % NaCl 1 250ml.bag @ 10. 599 UNITS/KG/HR 10 mls/hr IV .Q24H [facility] Rx#: [id number] Output: Stool 400 Other: # Voids 1 Weight 94.347 kg 01/25/23 13:06 01/25/23 13:06
[2023-01-26 11:38] LABS: Glucose,Whole Blood 223 mg/dL (70-110)
[2023-01-26 11:38] LABS: HDL Cholesterol 37.9 mg/dL (40.00-60.00)
[2023-01-26 11:57] LABS: Chol/HDL Ratio 4.64 Ratio
[2023-01-26] MEDS: ARIPiprazole 2 MG TAB PO SCH (12:55)
--- NOTE | 2023-01-26 13:28 | P.HPIM ---
History of Present Illness H&P Date: 01/26/23 Leticia Langley, is a 52-year-old female who presented to [facility] emergency room with a chief complaint of nausea vomiting and diarrhea for the last 3 days patient subsequently had an episode of chest pain which she described as severe as 10 out of 10 pain in the substernal area with shortness of breath, patient has a known history of extensive coronary artery disease, she took sublingual nitroglycerin and chest pain improved, subsequently EMS were called and patient was brought into emergency room. She was evaluated in the emergency room vital examination on presentation revealed a temperature of 98 pulse 59 respiration 18 blood pressure 202/92 pulse ox 92% on room air Laboratory data revealed a white blood count of 9.6 hemoglobin 15.2 platelet count 182 BUN 20 creatinine 1.12 glucose 334 triglyceride 461 cholesterol 176 acetone negative, troponin level 0.026 and 0.039 Testing in the emergency room revealed AKC down in the emergency room revealed sinus bradycardia with right bundle branch block and left anterior fascicular block, chest x-ray done in the emergency room revealed no evidence for acute pulmonary disease. Patient was admitted to medical floor for further evaluation and treatment, she was started on IV heparin cardiology consultation was requested. Past medical history is significant for history of hypertension, history of hyperlipidemia, history of diabetes mellitus, history of coronary artery disease with previous history of angioplasty and stent placement, history of stroke, and history of continued tobacco abuse. On review of systems patient is somnolent responsive in no apparent distress, at this time she has no chest pain, there is no fever or chills no headache or dizziness, no shortness of breath no cough no nausea or vomiting no abdominal pain no diarrhea no blood in the stools no burning with urination no frequency or urgency and no hematuria, there is no new neurological deficit, there is no numbness or weakness in any of the extremities, there is no change in vision or speech, gait was not tested at this time. 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 Last Myocardial Infarction Date:: Pt thinks 2015 History of Any Multi-Drug Resistant Organisms: None Reported Past Surgical History: Section, Cholecystectomy, Heart Catheterization With Stent, Hysterectomy, Tubal Ligation, Uterine Ablation Additional Past Surgical History / Comment(s): vein stripping right leg, radio frequency ablation of right back-02/22/2015, four stents on 04/03/16 and one on march 05, ovaries removed, colonscopy- polyp removal Past Anesthesia/Blood Transfusion Reactions: Motion Sickness Additional Past Anesthesia/Blood Transfusion Reaction / Comment(s): mild claustrophobia Date of Last Stent Placement:: 04/03/16 Past Psychological History: Anxiety, Depression Additional Psychological History / Comment(s): Pt resides with her spouse. She is mostly in her wheelchair. She has a walker and cane. She has a dexcom. Her spouse assists her with her medication organization. Spouse also drives pt. Smoking Status: Current every day smoker Past Alcohol Use History: None Reported Additional Past Alcohol Use History / Comment(s): Pt started smoking in 1988 and is alittle less than a ppd smoker. Past Drug Use History: None Reported - Past Family History Father Family Medical History: Congestive Heart Failure (CHF), Coronary Artery Disease (CAD), Diabetes Mellitus Mother Family Medical History: Cancer, COPD, Hypertension, Respiratory Disorder Additional Family Medical History / Comment(s): emphysema, colon CA Medications and Allergies Home Medications Medication Instructions Recorded Confirmed Type Pregabalin [Lyrica] 150 mg PO BID 06/25/15 01/25/23 History Magnesium Gluconate [Magonate] 500 mg PO HS 03/27/17 01/25/23 History Aspirin [Adult Low Dose Aspirin EC] 81 mg PO HS 11/26/17 01/25/23 History DULoxetine HCL [Cymbalta] 60 mg PO DAILY 08/25/18 01/25/23 History Isosorbide Mononitrate ER [Imdur] 60 mg PO DAILY 09/08/18 01/25/23 History carvediloL [Coreg] 25 mg PO BID 01/22/19 01/25/23 History ARIPiprazole [Abilify] 2 mg PO DAILY 11/08/20 01/25/23 History ALPRAZolam [Xanax] 2 mg PO HS 07/31/21 01/25/23 History Atorvastatin [Lipitor] 40 mg PO HS 07/31/21 01/25/23 History Pantoprazole Sodium [Protonix] 40 mg PO DAILY 30 Days #30 tab 03/20/22 01/25/23 Rx Insulin Lispro Protamin/Lispro 45 unit SQ HS 07/20/22 01/25/23 History [humaLOG MIX 75-25 Kwikpen] Insulin Lispro Protamin/Lispro 50 unit SQ DAILY 07/20/22 01/25/23 History [humaLOG MIX 75-25 Kwikpen] Albuterol Nebulized [Ventolin 2.5 mg INHALATION RT-QID PRN 10/06/22 01/25/23 History Nebulized] Empagliflozin [Jardiance] 10 mg PO DAILY 10/06/22 01/25/23 History Famotidine 20 mg PO DAILY 10/06/22 01/25/23 History Nitroglycerin Sl Tabs [Nitrostat] 0.4 mg SL Q5M PRN 10/06/22 01/25/23 History Pioglitazone [Actos] 15 mg PO DAILY 10/06/22 01/25/23 History Promethazine [Phenergan] 25 mg PO Q6H PRN 10/06/22 01/25/23 History Ferrous Sulfate [Iron (65 MG 325 mg PO DAILY 30 Days #30 tab 10/08/22 01/25/23 Rx Elemental)] Lacosamide [Vimpat] 50 mg PO BID 28 Days #14 tab 10/18/22 01/25/23 Rx Cholecalciferol [Vitamin D3 (25 25 mcg PO HS 01/25/23 01/25/23 History Mcg = 1000 Iu)] Clopidogrel [Plavix] 75 mg PO DAILY 01/25/23 01/25/23 History Fenofibrate [Lofibra] 160 mg PO DAILY 01/25/23 01/25/23 History HYDROcodone/APAP 7.5-325MG [[place] 1 tab PO HS 01/25/23 01/25/23 History 7.5-325] Ketorolac [Toradol] 10 mg PO DIRECTED PRN 01/25/23 01/25/23 History Multivit-Min/Folic Acid/Wnv778 1 tab PO BID 01/25/23 01/25/23 History [Alive Premium Adult Multivit] Rimegepant Sulfate [Nurtec Odt] 75 mg PO DAILY PRN 01/25/23 01/25/23 History hydrALAZINE HCL [Apresoline] 25 mg PO DAILY 01/25/23 01/25/23 History lamoTRIgine [LaMICtal Xr] 250 mg PO DAILY 01/25/23 01/25/23 History Allergies Allergy/AdvReac Type Severity Reaction Status Date / Time Fish Containing Products Allergy Anaphylaxis Verified 01/25/23 15:50 Iodinated Contrast Media Allergy Anaphylaxis Verified 01/25/23 15:50 [Iodinated Contrast Media - IV Dye] Sulfa (Sulfonamide Allergy Anaphylaxis Verified 01/25/23 15:50 Antibiotics) sulfamethoxazole Allergy Anaphylaxis Verified 01/25/23 15:50 [From ] tree nut [Nut] Allergy Anaphylaxis Verified 01/25/23 15:50 trimethoprim [From ] Allergy Anaphylaxis Verified 01/25/23 15:50 Physical Exam Vitals: Vital Signs Temp Pulse Pulse Resp BP BP Pulse Ox 01/26/23 08:25 95 01/26/23 03:12 98.7 F 66 15 147/81 92 L 01/25/23 23:31 97.9 F 70 18 152/75 93 L 01/25/23 20:20 97.9 F 71 18 147/81 93 L 01/25/23 19:28 98.8 F 69 16 141/80 97 01/25/23 17:22 95 01/25/23 17:17 66 18 159/70 84 L 01/25/23 15:16 67 18 171/83 97 01/25/23 14:06 66 18 188/82 94 L 01/25/23 13:06 61 18 225/77 94 L 01/25/23 12:33 98.0 F 59 L 18 202/92 92 L Intake and Output 01/25/23 01/26/23 01/26/23 22:59 06:59 14:59 Intake Total 64.5 Output Total 400 Balance -335.5 Intake: Intake, IV Titration 64.5 Amount Heparin Sod,Pork in 0.45% 64.5 NaCl 25,000 unit In 0.45 % NaCl 1 250ml.bag @ 10. 599 UNITS/KG/HR 10 mls/hr IV .Q24H [facility] Rx#: [id number] Output: Stool 400 Other: # Voids 1 Weight 94.347 kg In general patient is alert and oriented x 3 in no distress HEENT head normocephalic and atraumatic Neck is supple no JVD no goiter no lymphadenopathy no carotid bruit Chest examination is clear to auscultation no crackles no wheezing Cardiac exam reveals regular heart sounds S1 and S2 no gallops no murmurs Abdomen is soft nontender no organomegaly with normal bowel sounds Extremity exam reveals no edema no cyanosis or clubbing Neurological examination reveals no gross focal deficits Results CBC & Chem 7: 01/25/23 13:06 01/25/23 13:06 Labs: Abnormal Lab Results - Last 24 Hours (Table) 01/25/23 01/25/23 01/25/23 Range/Units 13:06 13:06 16:21 Hct 46.7 H (34.0-46.0) % RDW 17.6 H (11.5-15.5) % APTT (22.0-30.0) sec BUN 20 H (7-17) mg/dL Creatinine 1.12 H (0.52-1.04) mg/dL Glucose 334 H (74-99) mg/dL POC Glucose (mg/dL) (70-110) mg/dL Calcium 10.3 H (8.4-10.2) mg/dL Alkaline Phosphatase 153 H (38-126) U/L Troponin I 0.039 H* (0.000-0.034) ng/mL Total Protein 5.9 L (6.3-8.2) g/dL Albumin 3.4 L (3.5-5.0) g/dL 01/25/23 01/26/23 01/26/23 Range/Units 20:22 00:42 06:03 Hct (34.0-46.0) % RDW (11.5-15.5) % APTT 34.4 H (22.0-30.0) sec BUN (7-17) mg/dL Creatinine (0.52-1.04) mg/dL Glucose (74-99) mg/dL POC Glucose (mg/dL) 257 H 167 H (70-110) mg/dL Calcium (8.4-10.2) mg/dL Alkaline Phosphatase (38-126) U/L Troponin I (0.000-0.034) ng/mL Total Protein (6.3-8.2) g/dL Albumin (3.5-5.0) g/dL Thrombosis Risk Factor Assmnt - Choose All That Apply Each Factor Represents 1 point: Abnormal pulmonary function (COPD), Age 41-60 years, Medical pt on bed rest, Obesity (BMI >25) Other Risk Factors: Yes Each Risk Factor Represents 3 Points: Positive Factor V Leiden Other congenital or acquired thrombophilia - If yes, enter type in comment: No Thrombosis Risk Factor Assessment Total Risk Factor Score: 7 Thrombosis Risk Factor Assessment Level: High Risk Assessment and Plan Assessment: Hypertensive emergency Episode of chest pain Gastroenteritis with nausea vomiting and diarrhea Dehydration was acute kidney injury Underlying history of coronary artery disease, with previous history of angioplasty and stent placement Underlying history of hypertension Underlying history of hyperlipidemia Underlying history of diabetes mellitus Previous history of stroke Continued history of smoking At this time patient was admitted to telemetry floor She was started on IV heparin Cardiology consultation was requested Home medications reviewed and reordered Will follow closely
[2023-01-26 16:27] LABS: Glucose,Whole Blood 245 mg/dL (70-110)
[2023-01-26 20:14] LABS: Glucose,Whole Blood 264 mg/dL (70-110)
[2023-01-26] MEDS: ALPRAZolam 1 MG TAB PO SCH (22:23)
[2023-01-26] MEDS: CHOLECALCIFEROL 25 MCG (1000 IU) TABLET PO SCH (22:24)
[2023-01-26] MEDS: MAGNESIUM OXIDE 400 MG TAB PO SCH (22:24)
[2023-01-26] MEDS: HYDROcodone/APAP 7.5-325MG 1 EACH TAB PO SCH (22:25)
[2023-01-26] MEDS: ATORVASTATIN 80 MG TAB PO SCH (22:27)
[2023-01-27] MEDS: carvediloL 12.5 MG TAB PO SCH ×2 (06:22→17:38)
[2023-01-27] MEDS: PANTOPRAZOLE 40 MG TABLET PO SCH (06:23)
[2023-01-27 07:25] LABS: Glucose,Whole Blood 159 mg/dL (70-110)
[2023-01-27 09:11] LABS: Anisocytosis Slight; Basophils # (A) 0.1 k/uL (0-0.2); Basophils % (A) 1 %; Eosinophils # (A) 0.3 k/uL (0-0.7); Eosinophils % (A) 2 %; HGB 13.7 gm/dL (11.4-16.0); Lymphocytes # (A) 2.3 k/uL (1.0-4.8); Lymphocytes % (A) 16 %; MCH 28.5 pg (25.0-35.0); MCHC 32.7 g/dL (31.0-37.0); MCV 87.1 fL (80.0-100.0); Monocytes # (A) 0.6 k/uL (0-1.0); Monocytes % (A) 5 %; Neutrophils # (A) 10.7 k/uL (1.3-7.7); Neutrophils % (A) 75 %; Platelet Count 179 k/uL (150-450); RBC 4.82 m/uL (3.80-5.40); RDW 17.7 % (11.5-15.5); WBC 14.2 k/uL (3.8-10.6)
[2023-01-27] MEDS: lamoTRIgine 25 MG TAB PO SCH ×2 (09:16→20:54)
[2023-01-27] MEDS: DULoxetine HCL 60 MG CAPSULE.DR PO SCH (09:16)
[2023-01-27] MEDS: FERROUS SULFATE 325 MG TAB PO SCH (09:16)
[2023-01-27] MEDS: PREGABALIN 75 MG CAP PO SCH ×2 (09:16→20:54)
[2023-01-27] MEDS: MULTIVITAMINS, THERA 1 EACH TAB PO SCH ×2 (09:16→20:54)
[2023-01-27] MEDS: NIFEdipine XL 90 MG TAB.ER.24 PO SCH (09:16)
[2023-01-27] MEDS: LACOSAMIDE 50 MG TABLET PO SCH ×2 (09:16→20:54)
[2023-01-27] MEDS: FENOFIBRATE 160 MG TAB PO SCH (09:17)
[2023-01-27] MEDS: ASPIRIN 325 MG TAB PO SCH (09:17)
[2023-01-27] MEDS: CLOPIDOGREL 75 MG TAB PO SCH (09:17)
[2023-01-27] MEDS: hydrALAZINE HCL 25 MG TAB PO SCH ×2 (09:17→20:56)
[2023-01-27] MEDS: lisinopriL 20 MG TAB PO SCH ×2 (09:17→20:56)
[2023-01-27] MEDS: DAPAGLIFLOZIN PROPANEDIOL 5 MG TABLET PO SCH (09:17)
[2023-01-27] MEDS: FAMOTIDINE 20 MG TAB PO SCH (09:17)
[2023-01-27] MEDS: lamoTRIgine 100 MG TAB PO SCH ×2 (09:17→20:55)
[2023-01-27] MEDS: ISOSORBIDE MONONITRATE ER 60 MG TAB.ER.24H PO SCH (09:17)
[2023-01-27] MEDS: ARIPiprazole 2 MG TAB PO SCH (09:17)
[2023-01-27] MEDS: PIOGLITAZONE 15 MG TAB PO SCH (09:18)
[2023-01-27] MEDS: INSULN ASP PRT/INSULIN ASPART 100 UNIT/ML 10 ML VIAL SQ SCH ×2 (09:27→20:56)
[2023-01-27 09:30] LABS: Albumin 2.9 g/dL (3.5-5.0); Potassium 3.9 mmol/L (3.5-5.1); Total Bilirubin 0.3 mg/dL (0.2-1.3); Total Protein 5.2 g/dL (6.3-8.2)
--- NOTE | 2023-01-27 10:30 | P.PN ---
Subjective Progress Note Date: 01/27/23 Leticia Langley, is a 52-year-old female who presented to [facility] emergency room with a chief complaint of nausea vomiting and diarrhea for the last 3 days patient subsequently had an episode of chest pain which she described as severe as 10 out of 10 pain in the substernal area with shortness of breath, patient has a known history of extensive coronary artery disease, she took sublingual nitroglycerin and chest pain improved, subsequently EMS were called and patient was brought into emergency room. She was evaluated in the emergency room vital examination on presentation reveal ed a temperature of 98 pulse 59 respiration 18 blood pressure 202/92 pulse ox 92% on room air Laboratory data revealed a white blood count of 9.6 hemoglobin 15.2 platelet count 182 BUN 20 creatinine 1.12 glucose 334 triglyceride 461 cholesterol 176 acetone negative, troponin level 0.026 and 0.039 Testing in the emergency room revealed [facility]C down in the emergency room revealed sinus bradycardia with right bundle branch block and left anterior fascicular block, chest x-ray done in the emergency room revealed no evidence for acute pulmonary disease. Patient was admitted to medical floor for further evaluation and treatment, she was started on IV heparin cardiology consultation was requested. Past medical history is significant for history of hypertension, history of hyperlipidemia, history of diabetes mellitus, history of coronary artery disease with previous history of angioplasty and stent placement, history of stroke, and history of continued tobacco abuse. On review of systems patient is somnolent responsive in no apparent distress, at this time she has no chest pain, there is no fever or chills no headache or dizziness, no shortness of breath no cough no nausea or vomiting no abdominal pain no diarrhea no blood in the stools no burning with urination no frequency or urgency and no hematuria, there is no new neurological deficit, there is no numbness or weakness in any of the extremities, there is no change in vision or speech, gait was not tested at this time. On 01/27/2023 patient is alert and oriented 3. Patient planning of cough with some shortness of breath. Patient also noted to have elevated white blood cell count will test patient for COVID and influenza. Will also check UA and chest x-ray. 2-D echo ordered per cardiology. Current vital signs temp 97.7, heart rate 64, respiratory 16, blood pressure 130/60 with a pulse ox of 95% on 4 L. Objective - Vital Signs Vital signs: Vital Signs Temp 98 F 01/27/23 04:00 Pulse 69 01/27/23 04:00 Resp 20 01/27/23 04:00 BP 150/65 01/27/23 04:00 Pulse Ox 90 L 01/27/23 04:00 FiO2 Intake & Output 01/26/23 01/27/23 01/27/23 18:59 06:59 18:59 Intake Total 236 Output Total 200 Balance 236 -200 Intake: Oral 236 Output: Urine 200 Other: # Voids 1 - Exam In general patient is alert and oriented x 3 in no distress HEENT head normocephalic and atraumatic Neck is supple no JVD no goiter no lymphadenopathy no carotid bruit Chest examination is clear to auscultation no crackles no wheezing Cardiac exam reveals regular heart sounds S1 and S2 no gallops no murmurs Abdomen is soft nontender no organomegaly with normal bowel sounds Extremity exam reveals no edema no cyanosis or clubbing Neurological examination reveals no gross focal deficits - Labs CBC & Chem 7: 01/27/23 08:28 01/27/23 08:28 Labs: Abnormal Lab Results - Last 24 Hours (Table) 01/26/23 01/26/23 01/26/23 Range/Units 07:53 07:53 11:36 APTT 38.6 H (22.0-30.0) sec POC Glucose (mg/dL) 223 H (70-110) mg/dL Triglycerides 461.00 H (0.00-149.00) mg/dL HDL Cholesterol 37.90 L (40.00-60.00) mg/dL 01/26/23 01/26/23 01/27/23 Range/Units 16:26 20:10 07:24 APTT (22.0-30.0) sec POC Glucose (mg/dL) 245 H 264 H 159 H (70-110) mg/dL Triglycerides (0.00-149.00) mg/dL HDL Cholesterol (40.00-60.00) mg/dL Assessment and Plan Assessment: Hypertensive emergency Episode of chest pain Gastroenteritis with nausea vomiting and diarrhea Leukocytosis. Will check COVID-19, influenza, urinary analysis and chest x-ray Dehydration was acute kidney injury Underlying history of coronary artery disease, with previous history of angioplasty and stent placement Underlying history of hypertension Underlying history of hyperlipidemia Underlying history of diabetes mellitus Previous history of stroke Continued history of smoking At this time patient was admitted to telemetry floor She was started on IV heparin Cardiology consultation was requested Home medications reviewed and reordered Will follow closely
--- NOTE | 2023-01-27 11:10 | XR ---
EXAMINATION TYPE: XR chest 2V DATE OF EXAM: 01/27/2023 COMPARISON: Chest x-ray 2 days ago HISTORY: Shortness of breath TECHNIQUE: Frontal and lateral views of the chest are obtained. FINDINGS: Cardiomegaly redemonstrated with increasing central vascular congestion and interstitial e fredi. No pleural effusion or pneumothorax present. No new focal airspace opacity. The osseous struct ures are intact. IMPRESSION: Findings consistent with CHF exacerbation as detailed above. Correlate clinically.
--- NOTE | 2023-01-27 11:30 | CA ---
Transthoracic Echo Report Name: Leticia Langley Age: 52 Gender: F : 1970 Exam Date: 01/26/2023 09:00 Exam Location: [place] [facility] Ht (in): 66 Wt (lb): 208 Ordering Physician: Cori Caba Attending/Referring Phys: [id number], Gertrudis [employer] Rachel Murillo RDCS Procedure CPT: Indications: LVF Cardiac Hx: Technical Quality: Fair Contrast 1: Total Dose (mL): Contrast 2: Total Dose (mL): MEASUREMENTS (Male / Female) Normal Values 2D ECHO LV Diastolic Diameter PLAX 4.7 cm 4.2 - 5.9 / 3.9 - 5.3 cm LV Systolic Diameter PLAX 3.5 cm IVS Diastolic Thickness 1.8 cm 0.6 - 1.0 / 0.6 - 0.9 cm LVPW Diastolic Thickness 1.9 cm 0.6 - 1.0 / 0.6 - 0.9 cm LV Relative Wall Thickness 0.8 RV Internal Dim ED PLAX 3.7 cm LA Volume 78.6 cm??? 18 - 58 / 22 - 52 cm??? M-MODE Aortic Root Diameter MM 3.6 cm LA Systolic Diameter MM 3.4 cm LA Ao Ratio MM 0.9 AV Cusp Separation MM 1.7 cm DOPPLER AV Peak Velocity 147.3 cm/s AV Peak Gradient 8.7 mmHg AV Mean Velocity 97.2 cm/s AV Mean Gradient 4.3 mmHg AV Velocity Time Integral 28.5 cm LVOT Peak Velocity 135.9 cm/s LVOT Peak Gradient 7.4 mmHg LVOT Velocity Time Integral 29.5 cm MV Area PHT 2.6 cm??? Mitral E Point Velocity 72.0 cm/s Mitral A Point Velocity 91.5 cm/s Mitral E to A Ratio 0.8 MV Deceleration Time 295.3 ms MV E' Velocity 4.0 cm/s Mitral E to MV E' Ratio 18.2 TR Peak Velocity 146.1 cm/s TR Peak Gradient 8.5 mmHg Right Ventricular Systolic Press 13.5 mmHg FINDINGS Left Ventricle Left ventricular cavity size normal. Severely increased left ventricular wall thickness. Normal left ventricular systolic function with no obvious regional wall motion abnormalities. Left ventricular ejection fraction is estimated at 55-60 %. Severely increased septal wall thickness. Right Ventricle Mild right ventricular dilatation. Right ventricular systolic pressure within normal limits. Right Atrium Normal right atrial size. Left Atrium Severely increased left atrial volume. Mildly increased left atrial area. Mitral Valve Structurally normal mitral valve. Mild mitral regurgitation. Aortic Valve No aortic valve stenosis or regurgitation. Tricuspid Valve Mild tricuspid regurgitation. Pulmonic Valve Trace pulmonic regurgitation. Pericardium No pericardial effusion. Aorta Normal size aortic root and proximal ascending aorta. CONCLUSIONS Severe LVH with ejection fraction of 55% Severe left atrial enlargement Mild RV enlargement Previewed by: Dr. Luis F Pompa MD (Electronically Signed) Final Date: 27 January 2023 11:30
--- NOTE | 2023-01-27 11:38 | P.PN ---
Subjective Progress Note Date: 01/27/23 History of present illness: This is a 52-year-old female patient of Dr. Alma Delia Jasso with past medical history of coronary artery disease with prior stenting of the LAD and diagonal RCA as well as history of stroke as well as hypertension and dyslipidemia and diabetes and smoking and multiple comorbid conditions. We requested to see the patient for further evaluation of chest pain and hypertensive urgency. Patient is sleeping, she wakes only to give a 1 word answer does not open her eyes. History cannot be obtained from the patient. According to the ER records, patient has had vomiting and diarrhea for the past 2-3 days and then developed severe 10/10 chest pain with shortness of breath. [facility] which improved her chest pain. By the time she was in the emergency center she was still having chest pain and shortness of breath but no nausea or vomiting. Her initial blood pressure 202/90 200 this morning at 147/81. EKG sinus bradycardia, right bundle branch block Chest x-ray: No acute pulmonary disease WBC 9.6, hemoglobin 15.2, platelet count 182. INR 1.0. Electrolytes are normal. BUN 20 creatinine 1.12. Blood sugar 334. A1c in December 05 0.9. Alkaline phosphatase 153 otherwise liver function tests are normal. Magnesium 1.7. Acetone negative. Home cardiac medications: Aspirin 81 mg daily, Lipitor 40 mg daily, Coreg 25 mg twice daily, Plavix 75 mg daily, Jardiance 10 mg daily, fenofibrate 160 mg daily, hydralazine 25 mg daily, Imdur 60 mg daily, Nitrostat as needed 4/2 Patient is seen today in follow-up. Yesterday we had discontinued her heparin drip and resumed her home medications, discontinued amlodipine and start Procardia and increase Lipitor. Today patient states that she is feeling fine but again will not stay awake for full interview. Patient remains very drowsy. Blood pressure is improved at 130/60, heart rate in the 60s. Repeat blood work reveals WBC 14.2, hemoglobin 13.7. Potassium 3.9, BUN 25 and creatinine 1.42. Echocardiogram reveals EF of 55% with severe left atrial enlargement, mild RV enlargement. Physical examination: Gen: This is a 52 year old obese female. She is sleeping, makes 1 word verbalization otherwise does not wake up for evaluation VS: reviewed HEENT: Head is atraumatic, normocephalic. Pupils equal, round. Sclerae is anicteric. NECK: Supple. No JVD. LUNGS: Clear to auscultation. No wheezes or rhonchi. No intercostal retractions. HEART: Regular rate and rhythm. Systolic murmur. ABDOMEN: Soft No tenderness. EXTREMITIES: No pedal edema. No calf tenderness. NEUROLOGICAL: Patient is sleeping. Assessment: Hypertensive urgency Reported chest pain Gastroenteritis Coronary artery disease with prior stenting Stroke Hypertension Dyslipidemia Diabetes History of smoking Acute kidney injury Plan: Continue patient's current cardiac medications Cardiology will sign off and follow on an as-needed basis. Please reconsult for any new concerns. Patient may follow-up with Dr. Alma Delia Jasso in the office in 2 weeks. Nurse practitioner note has been reviewed, I agree with documented findings and plan of care. Patient was seen and examined. Objective - Vital Signs Vital signs: Vital Signs Temp 97.7 F 01/27/23 09:08 Pulse 64 01/27/23 09:08 Resp 16 01/27/23 09:08 BP 130/60 01/27/23 09:08 Pulse Ox 95 01/27/23 09:08 FiO2 Intake & Output 01/26/23 01/27/23 01/27/23 18:59 06:59 18:59 Intake Total 236 540 Output Total 200 Balance 236 -200 540 Intake: Oral 236 540 Output: Urine 200 Other: # Voids 1 - Labs CBC & Chem 7: 01/27/23 08:28 01/27/23 08:28 Labs: Abnormal Lab Results - Last 24 Hours (Table) 01/26/23 01/26/23 01/26/23 Range/Units 07:53 11:36 16:26 WBC (3.8-10.6) k/uL RDW (11.5-15.5) % Neutrophils # (1.3-7.7) k/uL BUN (7-17) mg/dL Creatinine (0.52-1.04) mg/dL Glucose (74-99) mg/dL POC Glucose (mg/dL) 223 H 245 H (70-110) mg/dL Total Protein (6.3-8.2) g/dL Albumin (3.5-5.0) g/dL Triglycerides 461.00 H (0.00-149.00) mg/dL HDL Cholesterol 37.90 L (40.00-60.00) mg/dL 01/26/23 01/27/23 01/27/23 Range/Units 20:10 07:24 08:28 WBC 14.2 H (3.8-10.6) k/uL RDW 17.7 H (11.5-15.5) % Neutrophils # 10.7 H (1.3-7.7) k/uL BUN (7-17) mg/dL Creatinine (0.52-1.04) mg/dL Glucose (74-99) mg/dL POC Glucose (mg/dL) 264 H 159 H (70-110) mg/dL Total Protein (6.3-8.2) g/dL Albumin (3.5-5.0) g/dL Triglycerides (0.00-149.00) mg/dL HDL Cholesterol (40.00-60.00) mg/dL 01/27/23 Range/Units 08:28 WBC (3.8-10.6) k/uL RDW (11.5-15.5) % Neutrophils # (1.3-7.7) k/uL BUN 25 H (7-17) mg/dL Creatinine 1.42 H (0.52-1.04) mg/dL Glucose 207 H (74-99) mg/dL POC Glucose (mg/dL) (70-110) mg/dL Total Protein 5.2 L (6.3-8.2) g/dL Albumin 2.9 L (3.5-5.0) g/dL Triglycerides (0.00-149.00) mg/dL HDL Cholesterol (40.00-60.00) mg/dL
[2023-01-27 11:41] LABS: Glucose,Whole Blood 175 mg/dL (70-110)
[2023-01-27 14:00] LABS: Appearance,Urine Clear (Clear); Bacteria,Urine Rare /hpf; Bilirubin,Urine Negative (Negative); Blood,Urine Negative (Negative); Color,Urine Yellow; Glucose,Urine (UA) 4+ (Negative); Ketones,Urine Negative (Negative); Leukocyte Esterase,Urine Negative (Negative); Mucus,Urine Rare /hpf; Nitrite,Urine Negative (Negative); Protein,Urine 3+ (Negative); RBC,Urine 1 /hpf (0-5); Specific Gravity,Urine 1.023 (1.001-1.035); Squamous Epithelial Cell,Urine 2 /hpf (0-4); Urobilinogen,Urine <2.0 mg/dL (<2.0); WBC,Urine 11 /hpf (0-5)
[2023-01-27 16:37] LABS: Glucose,Whole Blood 213 mg/dL (70-110)
[2023-01-27 20:07] LABS: Glucose,Whole Blood 283 mg/dL (70-110)
[2023-01-27] MEDS: HYDROcodone/APAP 7.5-325MG 1 EACH TAB PO SCH (20:54)
[2023-01-27] MEDS: CHOLECALCIFEROL 25 MCG (1000 IU) TABLET PO SCH (20:54)
[2023-01-27] MEDS: MAGNESIUM OXIDE 400 MG TAB PO SCH (20:54)
[2023-01-27] MEDS: ATORVASTATIN 80 MG TAB PO SCH (20:55)
[2023-01-27] MEDS: ALPRAZolam 1 MG TAB PO SCH (20:56)
[2023-01-28 06:15] LABS: Glucose,Whole Blood 93 mg/dL (70-110)
[2023-01-28] MEDS: carvediloL 12.5 MG TAB PO SCH ×2 (06:38→18:02)
[2023-01-28] MEDS: PANTOPRAZOLE 40 MG TABLET PO SCH (06:38)
[2023-01-28] MEDS: INSULN ASP PRT/INSULIN ASPART 100 UNIT/ML 10 ML VIAL SQ SCH ×2 (08:20→22:21)
[2023-01-28] MEDS: CLOPIDOGREL 75 MG TAB PO SCH (08:20)
[2023-01-28] MEDS: hydrALAZINE HCL 25 MG TAB PO SCH (08:21)
[2023-01-28] MEDS: LACOSAMIDE 50 MG TABLET PO SCH ×2 (08:21→22:21)
[2023-01-28] MEDS: ISOSORBIDE MONONITRATE ER 60 MG TAB.ER.24H PO SCH (08:21)
[2023-01-28] MEDS: FENOFIBRATE 160 MG TAB PO SCH (08:21)
[2023-01-28] MEDS: NIFEdipine XL 90 MG TAB.ER.24 PO SCH (08:21)
[2023-01-28] MEDS: lamoTRIgine 25 MG TAB PO SCH ×2 (08:21→18:21)
[2023-01-28] MEDS: FERROUS SULFATE 325 MG TAB PO SCH (08:21)
[2023-01-28] MEDS: ASPIRIN 325 MG TAB PO SCH (08:21)
[2023-01-28] MEDS: FAMOTIDINE 20 MG TAB PO SCH (08:21)
[2023-01-28] MEDS: lamoTRIgine 100 MG TAB PO SCH ×2 (08:21→18:22)
[2023-01-28] MEDS: DULoxetine HCL 60 MG CAPSULE.DR PO SCH (08:21)
[2023-01-28] MEDS: MULTIVITAMINS, THERA 1 EACH TAB PO SCH ×2 (08:21→22:22)
[2023-01-28] MEDS: lisinopriL 20 MG TAB PO SCH ×2 (08:21→22:22)
[2023-01-28] MEDS: PREGABALIN 75 MG CAP PO SCH ×2 (08:21→22:22)
[2023-01-28] MEDS: DAPAGLIFLOZIN PROPANEDIOL 5 MG TABLET PO SCH (08:22)
[2023-01-28] MEDS: ARIPiprazole 2 MG TAB PO SCH (08:22)
[2023-01-28] MEDS: PIOGLITAZONE 15 MG TAB PO SCH (08:22)
[2023-01-28 11:05] LABS: Anisocytosis Slight; Basophils # (A) 0.1 k/uL (0-0.2); Basophils % (A) 0 %; Eosinophils # (A) 0.2 k/uL (0-0.7); Eosinophils % (A) 1 %; HCT 45.6 % (34.0-46.0); HGB 14.6 gm/dL (11.4-16.0); Lymphocytes % (A) 12 %; MCH 28.1 pg (25.0-35.0); MCHC 31.9 g/dL (31.0-37.0); MCV 88.2 fL (80.0-100.0); Mean Platelet Volume 10.7; Monocytes # (A) 0.5 k/uL (0-1.0); Monocytes % (A) 3 %; Neutrophils # (A) 14.5 k/uL (1.3-7.7); Neutrophils % (A) 83 %; Platelet Count 216 k/uL (150-450); RBC 5.18 m/uL (3.80-5.40); RDW 17.7 % (11.5-15.5); WBC 17.4 k/uL (3.8-10.6)
[2023-01-28 11:15] LABS: Albumin 3.2 g/dL (3.5-5.0); Calcium 10.1 mg/dL (8.4-10.2); Potassium 3.9 mmol/L (3.5-5.1); Total Bilirubin 0.2 mg/dL (0.2-1.3); Total Protein 5.5 g/dL (6.3-8.2)
[2023-01-28 11:48] LABS: Glucose,Whole Blood 114 mg/dL (70-110)
[2023-01-28] MEDS ORDERED: FUROSEMIDE 10 MG/ML 4 ML VIAL IV SCH (13:30)
--- NOTE | 2023-01-28 14:23 | PN ---
PROGRESS NOTE SUBJECTIVE: This 52-year-old woman was admitted with multiple medical problems and significant shortness of breath. The patient is on Airvo at this time. The patient is hypoxic. The patient's chest x-ray showed possible CHF. The patient was admitted with hypertensive urgency. The patient was also complaining of weakness. The viral titers were negative. Had detailed discussion with the patient and her at the bedside. PAST MEDICAL HISTORY: Reviewed. REVIEW OF SYSTEMS: A 14-point review is negative except as mentioned earlier. CURRENT MEDICATIONS: Reviewed include Abilify, rest of other medications and doses were reviewed. PHYSICAL EXAMINATION: VITAL SIGNS: Pulse is 69, blood pressure 101/60, and respirations 20. HEENT: Conjunctivae normal. CARDIOVASCULAR: S1, S2. RESPIRATIONS: Scattered rhonchi. ABDOMEN: Soft, nontender. NERVOUS SYSTEM: No focal deficits. LEGS: No swelling, no edema. LABORATORY DATA: Reviewed. ASSESSMENT: 1. Congestive heart failure acute exacerbation, acute on chronic diastolic dysfunction, ejection fraction 50%. 2. Elevated LA diameter. 3. Hypertensive urgency on admission. 4. Diabetes mellitus, type 2. 5. Generalized weakness and deconditioning, gait dysfunction. RECOMMENDATIONS AND DISCUSSION: This 52-year-old woman who presented with multiple complex medical issues, we will monitor the patient closely. Continue the current medications, continue symptomatic treatment. I recommend intensive bronchodilator treatment, otherwise I would also recommend careful Lasix and follow closely with Cardiology and pulmonology. Ensure oxygenation. Once again, the prognosis is extremely guarded because of multiple complex medical issues. See orders for further details, further recommendations to follow. MMODL / IJN: [id number] /
[2023-01-28 16:43] LABS: Glucose,Whole Blood 179 mg/dL (70-110)
[2023-01-28 20:34] LABS: Glucose,Whole Blood 148 mg/dL (70-110)
[2023-01-28] MEDS: MAGNESIUM OXIDE 400 MG TAB PO SCH (22:22)
[2023-01-28] MEDS: ATORVASTATIN 80 MG TAB PO SCH (22:22)
[2023-01-28] MEDS: CHOLECALCIFEROL 25 MCG (1000 IU) TABLET PO SCH (22:23)
[2023-01-29] MEDS ORDERED: IPRATROPIUM-ALBUTEROL 3 ML NEB INHALATION PRN (05:25)
--- NOTE | 2023-01-29 05:30 | P.CNPUL ---
History of Present Illness Consult date: 01/29/23 Requesting physician: Khushboo Patel Reason for consult: dyspnea Chief complaint: Chest pain History of present illness: I am seeing this patient in new consultation today 01/29/2023 for increased shortness of breath and oxygen demands on the general medical floor. 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 Patient was originally admitted back on December for substernal chest pain that radiated down her left chest. At that time, it was rated severe substernal 10 out of 10 and improved with nitroglycerin tabs. She was hypertensive on arrival and short of breath. Patient also had some nausea and diarrhea that started 2-3 days earlier. Chest x-ray on arrival showed no acute cardiopulmonary process. A echocardiogram done on January showed a preserved ejection fraction of 55-60% with severe LVH. A follow-up chest x-ray done yesterday showed findings consistent with acute CHF exacerbation. Patient is currently being diuresed with Lasix 40 mg daily. Follow up NT BNP only 259. D-dimer was low at 0.32. Troponin was only mildly elevated and peaked at 0.039. ECG done on arrival showed normal sinus rhythm without any obvious acute ischemic changes. Most recent CBC done yesterday shows a elevated WBC count of 17.4, hemoglobin 14.6, hematocrit 45.6, platelets 216,000. BMP shows sodium 140, potassium 3.9, chloride 106, serum CO2 27, BUN 32, creatinine 1.76, glucose 130. Patient was negative for influenza, RSV, COVID-19. Patient is currently resting in bed, on AIRVO 60 L and 50%, in no acute distress. Her chest pain is reproducible. She's had admissions in the past for an atypical chest pain. Vital signs are stable. Review of Systems REVIEW OF SYSTEMS: CONSTITUTIONAL: Denies any recent significant weight loss or weight gain. EYES: Denies change in vision. EARS, NOSE, MOUTH, THROAT: Denies headaches, denies sore throat. CARDIOVASCULAR: Denies palpitations or syncopal episodes. Reports chest pain RESPIRATORY: See HPI GASTROINTESTINAL: See HPI GENITOURINARY: Denies hematuria, denies infections. MUSKULOSKELETAL: Denies pain, denies swelling. INTEGUMENTARY: Denies rash, denies eczema. NEUROLOGICAL: Denies recent memory loss, no recent seizure activity. PSYCHIATRIC: Denies anxiety, denies depression. HEMATOLOGIC/LYMPHATIC: Denies anemia, denies enlarged lymph node Past Medical History Past Medical History: Blood Disorder, Coronary Artery Disease (CAD), Cancer, Chest Pain / Angina, CVA/TIA, Diabetes Mellitus, Deep Vein Thrombosis (DVT), Fibromyalgia, GERD/Reflux, Hyperlipidemia, Hypertension, Myocardial Infarction (NV), Musculoskeletal Disorder, Neurologic Disorder, Sleep Apnea/CPAP/BIPAP, Vascular Disorder Additional Past Medical History / Comment(s): IDDM type II, uterine/cervical and ovarian cancer, restless leg, Factor V blood disorder, DVT R leg, 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 - slight foot drag when tired/neuropathies, MS, NV X 5, ABIGAIL with Cpap use, PAD/legs, R leg edema, past pancreatitis. Last Myocardial Infarction Date:: Pt thinks 2015 History of Any Multi-Drug Resistant Organisms: None Reported Past Surgical History: Section, Cholecystectomy, Heart Catheterization With Stent, Hysterectomy, Tubal Ligation, Uterine Ablation Additional Past Surgical History / Comment(s): vein stripping right leg, radio frequency ablation of right back-02/22/2015, four stents on 04/03/16 and one on march 05, ovaries removed, colonscopy- polyp removal Past Anesthesia/Blood Transfusion Reactions: Motion Sickness Additional Past Anesthesia/Blood Transfusion Reaction / Comment(s): mild claustrophobia Date of Last Stent Placement:: 04/03/16 Past Psychological History: Anxiety, Depression Additional Psychological History / Comment(s): Pt resides with her spouse. She is mostly in her wheelchair. She has a walker and cane. She has a dexcom. Her spouse assists her with her medication organization. Spouse also drives pt. Smoking Status: Current every day smoker Past Alcohol Use History: None Reported Additional Past Alcohol Use History / Comment(s): Pt started smoking in 1988 and is alittle less than a ppd smoker. Past Drug Use History: None Reported - Past Family History Father Family Medical History: Congestive Heart Failure (CHF), Coronary Artery Disease (CAD), Diabetes Mellitus Mother Family Medical History: Cancer, COPD, Hypertension, Respiratory Disorder Additional Family Medical History / Comment(s): emphysema, colon CA Medications and Allergies Home Medications Medication Instructions Recorded Confirmed Type Pregabalin [Lyrica] 150 mg PO BID 06/25/15 01/25/23 History Magnesium Gluconate [Magonate] 500 mg PO HS 03/27/17 01/25/23 History Aspirin [Adult Low Dose Aspirin EC] 81 mg PO HS 11/26/17 01/25/23 History DULoxetine HCL [Cymbalta] 60 mg PO DAILY 08/25/18 01/25/23 History Isosorbide Mononitrate ER [Imdur] 60 mg PO DAILY 09/08/18 01/25/23 History carvediloL [Coreg] 25 mg PO BID 01/22/19 01/25/23 History ARIPiprazole [Abilify] 2 mg PO DAILY 11/08/20 01/25/23 History ALPRAZolam [Xanax] 2 mg PO HS 07/31/21 01/25/23 History Atorvastatin [Lipitor] 40 mg PO HS 07/31/21 01/25/23 History Pantoprazole Sodium [Protonix] 40 mg PO DAILY 30 Days #30 tab 03/20/22 01/25/23 Rx Insulin Lispro Protamin/Lispro 45 unit SQ HS 07/20/22 01/25/23 History [humaLOG MIX 75-25 Kwikpen] Insulin Lispro Protamin/Lispro 50 unit SQ DAILY 07/20/22 01/25/23 History [humaLOG MIX 75-25 Kwikpen] Albuterol Nebulized [Ventolin 2.5 mg INHALATION RT-QID PRN 10/06/22 01/25/23 History Nebulized] Empagliflozin [Jardiance] 10 mg PO DAILY 10/06/22 01/25/23 History Famotidine 20 mg PO DAILY 10/06/22 01/25/23 History Nitroglycerin Sl Tabs [Nitrostat] 0.4 mg SL Q5M PRN 10/06/22 01/25/23 History Pioglitazone [Actos] 15 mg PO DAILY 10/06/22 01/25/23 History Promethazine [Phenergan] 25 mg PO Q6H PRN 10/06/22 01/25/23 History Ferrous Sulfate [Iron (65 MG 325 mg PO DAILY 30 Days #30 tab 10/08/22 01/25/23 Rx Elemental)] Lacosamide [Vimpat] 50 mg PO BID 28 Days #14 tab 10/18/22 01/25/23 Rx Cholecalciferol [Vitamin D3 (25 25 mcg PO HS 01/25/23 01/25/23 History Mcg = 1000 Iu)] Clopidogrel [Plavix] 75 mg PO DAILY 01/25/23 01/25/23 History Fenofibrate [Lofibra] 160 mg PO DAILY 01/25/23 01/25/23 History HYDROcodone/APAP 7.5-325MG [Warren 1 tab PO HS 01/25/23 01/25/23 History 7.5-325] Ketorolac [Toradol] 10 mg PO DIRECTED PRN 01/25/23 01/25/23 History Multivit-Min/Folic Acid/Cyz249 1 tab PO BID 01/25/23 01/25/23 History [Alive Premium Adult Multivit] Rimegepant Sulfate [Nurtec Odt] 75 mg PO DAILY PRN 01/25/23 01/25/23 History hydrALAZINE HCL [Apresoline] 25 mg PO DAILY 01/25/23 01/25/23 History lamoTRIgine [LaMICtal Xr] 250 mg PO DAILY 01/25/23 01/25/23 History Allergies Allergy/AdvReac Type Severity Reaction Status Date / Time Fish Containing Products Allergy Anaphylaxis Verified 01/25/23 15:50 Iodinated Contrast Media Allergy Anaphylaxis Verified 01/25/23 15:50 [Iodinated Contrast Media - IV Dye] Sulfa (Sulfonamide Allergy Anaphylaxis Verified 01/25/23 15:50 Antibiotics) sulfamethoxazole Allergy Anaphylaxis Verified 01/25/23 15:50 [From Septra] tree nut [Nut] Allergy Anaphylaxis Verified 01/25/23 15:50 trimethoprim [From Junra] Allergy Anaphylaxis Verified 01/25/23 15:50 Physical Exam Vitals: Vital Signs Temp Pulse Pulse Resp BP Pulse Ox FiO2 01/29/23 03:43 97.8 F 64 20 130/69 96 60 01/29/23 01:45 90 L 50 01/29/23 01:00 22 01/28/23 23:05 97.6 F 67 22 132/71 95 60 01/28/23 22:15 22 01/28/23 21:37 97.5 F L 69 22 130/69 93 L 60 01/28/23 21:09 51 01/28/23 16:00 65 18 92/52 92 L 60 01/28/23 15:36 60 01/28/23 12:35 98.3 F 69 20 101/62 93 L 50 01/28/23 11:45 97 50 01/28/23 08:20 97.6 F 69 18 133/71 94 L 60 01/28/23 08:10 64 94 L 60 01/28/23 07:42 68 01/28/23 07:03 18 94 L Intake and Output 01/28/23 01/28/23 01/29/23 14:59 22:59 06:59 Intake Total 328 598 Output Total 100 400 Balance 228 198 Intake: IV 10 Invasive Line 2 10 Oral 318 598 Output: Urine 100 400 Other: # Voids 2 1 # Bowel Movements 1 GENERAL EXAM: Alert, 52-year-old white female, morbidly obese, comfortable in no apparent distress. HEAD: Normocephalic and atraumatic EYES: Normal reaction of pupils, equal size. NOSE: Clear with pink turbinates. THROAT: No erythema or exudates. NECK: No masses, no JVD. CHEST: No chest wall deformity. LUNGS: Equal air entry with minimal inspiratory bibasilar crackles. No wheeze, rhonchi or dullness. On AIRVO. No conversational dyspnea or accessory muscle use. CVS: S1 and S2 normal with no audible murmur, regular rhythm. No extra heart sounds ABDOMEN: Obese abdomen. No hepatosplenomegaly, active bowel sounds, no guarding or rigidity. SPINE: No scoliosis or deformity SKIN: No rashes CENTRAL NERVOUS SYSTEM: No focal deficits, tone is normal in all 4 extremities. EXTREMITIES: There is minimal 1+ edema bilaterally in the lower extremities. No clubbing, or cyanosis. Peripheral pulses are intact. Results - Laboratory Findings CBC and BMP: 01/28/23 09:54 01/28/23 09:54 PT/INR, D-dimer PT 10.7 sec (9.0-12.0) 01/26/23 00:42 INR 1.0 (<1.2) 04/01/23 00:42 D-Dimer 0.32 mg/L FEU (<0.60) 01/28/23 14:48 Abnormal lab findings: Abnormal Labs 01/25/23 01/25/23 01/25/23 13:06 13:06 16:21 WBC Hct 46.7 H RDW 17.6 H Neutrophils # APTT BUN 20 H Creatinine 1.12 H Glucose 334 H POC Glucose (mg/dL) Calcium 10.3 H Alkaline Phosphatase 153 H Troponin I 0.039 H* Total Protein 5.9 L Albumin 3.4 L Triglycerides HDL Cholesterol Urine Protein Urine Glucose (UA) Urine WBC Urine Bacteria Urine Mucus 01/25/23 01/26/23 01/26/23 20:22 00:42 06:03 WBC Hct RDW Neutrophils # APTT 34.4 H BUN Creatinine Glucose POC Glucose (mg/dL) 257 H 167 H Calcium Alkaline Phosphatase Troponin I Total Protein Albumin Triglycerides HDL Cholesterol Urine Protein Urine Glucose (UA) Urine WBC Urine Bacteria Urine Mucus 01/26/23 01/26/23 01/26/23 07:53 07:53 11:36 WBC Hct RDW Neutrophils # APTT 38.6 H BUN Creatinine Glucose POC Glucose (mg/dL) 223 H Calcium Alkaline Phosphatase Troponin I Total Protein Albumin Triglycerides 461.00 H HDL Cholesterol 37.90 L Urine Protein Urine Glucose (UA) Urine WBC Urine Bacteria Urine Mucus 01/26/23 01/26/23 01/27/23 16:26 20:10 07:24 WBC Hct RDW Neutrophils # APTT BUN Creatinine Glucose POC Glucose (mg/dL) 245 H 264 H 159 H Calcium Alkaline Phosphatase Troponin I Total Protein Albumin Triglycerides HDL Cholesterol Urine Protein Urine Glucose (UA) Urine WBC Urine Bacteria Urine Mucus 01/27/23 01/27/23 01/27/23 08:28 08:28 11:40 WBC 14.2 H Hct RDW 17.7 H Neutrophils # 10.7 H APTT BUN 25 H Creatinine 1.42 H Glucose 207 H POC Glucose (mg/dL) 175 H Calcium Alkaline Phosphatase Troponin I Total Protein 5.2 L Albumin 2.9 L Triglycerides HDL Cholesterol Urine Protein Urine Glucose (UA) Urine WBC Urine Bacteria Urine Mucus 01/27/23 01/27/23 01/27/23 13:30 16:36 20:06 WBC Hct RDW Neutrophils # APTT BUN Creatinine Glucose POC Glucose (mg/dL) 213 H 283 H Calcium Alkaline Phosphatase Troponin I Total Protein Albumin Triglycerides HDL Cholesterol Urine Protein 3+ H Urine Glucose (UA) 4+ H Urine WBC 11 H Urine Bacteria Rare H Urine Mucus Rare H 01/28/23 01/28/23 01/28/23 09:54 09:54 11:44 WBC 17.4 H Hct RDW 17.7 H Neutrophils # 14.5 H APTT BUN 32 H Creatinine 1.76 H Glucose 130 H POC Glucose (mg/dL) 114 H Calcium Alkaline Phosphatase Troponin I Total Protein 5.5 L Albumin 3.2 L Triglycerides HDL Cholesterol Urine Protein Urine Glucose (UA) Urine WBC Urine Bacteria Urine Mucus 01/28/23 01/28/23 16:41 20:32 WBC Hct RDW Neutrophils # APTT BUN Creatinine Glucose POC Glucose (mg/dL) 179 H 148 H Calcium Alkaline Phosphatase Troponin I Total Protein Albumin Triglycerides HDL Cholesterol Urine Protein Urine Glucose (UA) Urine WBC Urine Bacteria Urine Mucus - Diagnostic Findings Chest x-ray: image reviewed Assessment and Plan Assessment: Acute hypoxemic respiratory failure possibly multifactorial related to an exacerbation of diastolic congestive heart failure and mild exacerbation of COPD. Chest x-ray from yesterday shows some pulmonary vascular congestion. Currently on AIRVO 60 L and 50%. Hypertensive urgency on arrival, currently improved Atypical chest pain that is reproducible. Troponins were only mildly elevated on arrival. Not felt to be related to ischemia by cardiology. Acute on chronic kidney disease. Creatinine is currently 1.76 Coronary artery disease with previous myocardial infarctions and PCI History of previous CVAs with residual right-sided weakness Diabetes mellitus type 2 Hyperlipidemia Previous ventilator-dependent acute hypoxic respiratory failure Fibromyalgia History of cervical, uterine and ovarian cancer status post total hysterectomy Reported ex-smoker Plan: Medications medications, labs, chest x-ray reviewed Patient requiring AIRVO 60 L and 50%. Increase Lasix to 40 mg twice a day Repeat chest x-ray in the morning Will add bronchodilators Will start patient on Symbicort inhaler We will continue to follow I have personally seen and examined the patient, performed the documentation and the assessment and plan as written. Number of minutes spent on the visit:20 Time with Patient: Greater than 30
[2023-01-29 06:16] LABS: Glucose,Whole Blood 62 mg/dL (70-110)
[2023-01-29] MEDS: PANTOPRAZOLE 40 MG TABLET PO SCH (06:29)
[2023-01-29] MEDS: carvediloL 12.5 MG TAB PO SCH ×2 (06:30→16:53)
[2023-01-29 06:33] LABS: Glucose,Whole Blood 68 mg/dL (70-110)
[2023-01-29 06:47] LABS: Glucose,Whole Blood 101 mg/dL (70-110)
[2023-01-29] MEDS: SYMBICORT 160-4.5 MCG INHALER INHALATION SCH ×2 (07:54→22:11)
[2023-01-29] MEDS: IPRATROPIUM-ALBUTEROL 3 ML NEB INHALATION SCH ×4 (07:54→22:11)
--- NOTE | 2023-01-29 08:11 | XR ---
EXAMINATION TYPE: XR chest 1V portable DATE OF EXAM: 01/29/2023 HISTORY: Shortness of breath. COMPARISON: EXAMINATION TYPE: XR chest 1V portable DATE OF EXAM: 01/29/2023 HISTORY: Shortness of breath. COMPARISON: 01/27/2023 TECHNIQUE: Single view of the chest is submitted. FINDINGS: Demonstrated are scattered senescent parenchymal change. Increased basilar markings appear to be chronic in nature. Correlate clinically and consider progress studies. The heart is stable. Hilar and mediastinal structures are within normal limits. Degenerative changes are seen of the dorsal spine. IMPRESSION: 1. Chronic changes without evidence for acute pulmonary disease. TECHNIQUE: Single view of the chest is submitted. FINDINGS: Demonstrated are scattered senescent parenchymal change. There is no evidence for focal infiltrate. The heart is stable. Hilar and mediastinal structures are within normal limits. Degenerative changes are seen of the dorsal spine. IMPRESSION: 1. Increased basilar markings appear to be chronic in nature. Correlate clinically and consider prog ress studies.
[2023-01-29] MEDS: LACOSAMIDE 50 MG TABLET PO SCH ×2 (08:54→20:44)
[2023-01-29] MEDS: PREGABALIN 75 MG CAP PO SCH ×2 (08:54→20:42)
[2023-01-29] MEDS: lisinopriL 20 MG TAB PO SCH ×2 (08:55→20:41)
[2023-01-29] MEDS: FERROUS SULFATE 325 MG TAB PO SCH (08:55)
[2023-01-29] MEDS: DULoxetine HCL 60 MG CAPSULE.DR PO SCH (08:55)
[2023-01-29] MEDS: NIFEdipine XL 90 MG TAB.ER.24 PO SCH (08:55)
[2023-01-29] MEDS: FUROSEMIDE 10 MG/ML 4 ML VIAL IV SCH ×2 (08:55→20:41)
[2023-01-29] MEDS: FENOFIBRATE 160 MG TAB PO SCH (08:55)
[2023-01-29] MEDS: hydrALAZINE HCL 25 MG TAB PO SCH (08:55)
[2023-01-29] MEDS: CLOPIDOGREL 75 MG TAB PO SCH (08:55)
[2023-01-29] MEDS: lamoTRIgine 25 MG TAB PO SCH ×2 (08:55→20:41)
[2023-01-29] MEDS: ISOSORBIDE MONONITRATE ER 60 MG TAB.ER.24H PO SCH (08:55)
[2023-01-29] MEDS: MULTIVITAMINS, THERA 1 EACH TAB PO SCH ×2 (08:55→20:42)
[2023-01-29] MEDS: lamoTRIgine 100 MG TAB PO SCH ×2 (08:55→20:44)
[2023-01-29] MEDS: ASPIRIN 325 MG TAB PO SCH (08:55)
[2023-01-29] MEDS: DAPAGLIFLOZIN PROPANEDIOL 5 MG TABLET PO SCH (08:56)
[2023-01-29] MEDS: ARIPiprazole 2 MG TAB PO SCH (08:56)
[2023-01-29] MEDS: INSULN ASP PRT/INSULIN ASPART 100 UNIT/ML 10 ML VIAL SQ SCH ×2 (08:56→20:44)
[2023-01-29] MEDS: PIOGLITAZONE 15 MG TAB PO SCH (08:57)
[2023-01-29 08:58] LABS: Anisocytosis Slight; Basophils % (A) 0 %; Eosinophils # (A) 0.2 k/uL (0-0.7); Eosinophils % (A) 2 %; HCT 44.7 % (34.0-46.0); HGB 14.4 gm/dL (11.4-16.0); Lymphocytes # (A) 2.1 k/uL (1.0-4.8); Lymphocytes % (A) 18 %; MCH 28.1 pg (25.0-35.0); MCHC 32.1 g/dL (31.0-37.0); MCV 87.6 fL (80.0-100.0); Mean Platelet Volume 10.4; Monocytes # (A) 0.4 k/uL (0-1.0); Monocytes % (A) 3 %; Neutrophils # (A) 8.7 k/uL (1.3-7.7); Neutrophils % (A) 75 %; Platelet Count 210 k/uL (150-450); WBC 11.6 k/uL (3.8-10.6)
[2023-01-29 09:03] LABS: Calcium 9.9 mg/dL (8.4-10.2); Total Bilirubin 0.2 mg/dL (0.2-1.3); Total Protein 5.4 g/dL (6.3-8.2)
[2023-01-29 11:59] LABS: Glucose,Whole Blood 79 mg/dL (70-110)
[2023-01-29 12:38] VITALS: BMI 33.7
[2023-01-29 16:34] LABS: Glucose,Whole Blood 129 mg/dL (70-110)
[2023-01-29] MEDS: methylPREDNISolone SOD SUCCI 40 MG/ML 1 ML VIAL IV SCH ×2 (16:54→23:27)
[2023-01-29 20:13] LABS: Glucose,Whole Blood 208 mg/dL (70-110)
[2023-01-29] MEDS: CHOLECALCIFEROL 25 MCG (1000 IU) TABLET PO SCH (20:42)
[2023-01-29] MEDS: ATORVASTATIN 80 MG TAB PO SCH (20:42)
[2023-01-29] MEDS: MAGNESIUM OXIDE 400 MG TAB PO SCH (20:43)
--- NOTE | 2023-01-29 23:12 | PN ---
PROGRESS NOTE DATE OF SERVICE: 01/29/2023 SUBJECTIVE: This is a 52-year-old woman, who was admitted with CHF acute exacerbation, also had elevated Lamictal levels. The patient also had a chest x-ray, which showed possible infiltrate and pneumonia. The patient is being closely monitored. The patient also had significant hypoxia. Multiple consultants are following the patient closely. PAST MEDICAL HISTORY: Reviewed. REVIEW OF SYSTEMS: A 14-point review is negative except as mentioned earlier. PHYSICAL EXAMINATION: VITAL SIGNS: Pulse is 72, blood pressure is 130/60, respirations 18 HEENT: Conjunctive normal. NECK: No JVD. CARDIOVASCULAR: S1, S2. RESPIRATIONS: A few scattered rhonchi. ABDOMEN: Soft. NERVOUS SYSTEM: Nonfocal. LABORATORY DATA: Creatinine 1.7. The rest of the labs are noted. ASSESSMENT: 1. Congestive heart failure acute exacerbation with acute on chronic diastolic dysfunction, ejection fraction 50%. 2. Possible chronic obstructive pulmonary disease acute exacerbation with pneumonia. 3. Elevated LA diameter. RECOMMENDATIONS AND DISCUSSION: We will continue to monitor. Prognosis guarded. Check Lamictal level and further recommendations to follow. See orders for further details. Short course empiric antibiotics and steroids and increase ambulation. Further recommendations to follow. MMODL / IJN: [id number] /
[2023-01-30 06:20] LABS: Glucose,Whole Blood 194 mg/dL (70-110)
[2023-01-30] MEDS: PANTOPRAZOLE 40 MG TABLET PO SCH (06:27)
[2023-01-30] MEDS: carvediloL 12.5 MG TAB PO SCH (06:27)
[2023-01-30 07:46] LABS: Anisocytosis Slight; Basophils % (A) 0 %; Eosinophils % (A) 0 %; HCT 44.8 % (34.0-46.0); HGB 14.7 gm/dL (11.4-16.0); Lymphocytes # (A) 1.1 k/uL (1.0-4.8); Lymphocytes % (A) 9 %; MCH 28.5 pg (25.0-35.0); MCHC 32.7 g/dL (31.0-37.0); Mean Platelet Volume 9.9; Monocytes # (A) 0.1 k/uL (0-1.0); Monocytes % (A) 1 %; Neutrophils # (A) 11.1 k/uL (1.3-7.7); Neutrophils % (A) 90 %; Platelet Count 256 k/uL (150-450); RBC 5.15 m/uL (3.80-5.40); RDW 17.6 % (11.5-15.5); WBC 12.3 k/uL (3.8-10.6)
[2023-01-30] MEDS: IPRATROPIUM-ALBUTEROL 3 ML NEB INHALATION SCH ×3 (07:53→15:41)
[2023-01-30] MEDS: SYMBICORT 160-4.5 MCG INHALER INHALATION SCH (07:53)
[2023-01-30 08:18] LABS: Albumin 3.5 g/dL (3.5-5.0); Calcium 10.6 mg/dL (8.4-10.2); Potassium 4.4 mmol/L (3.5-5.1); Total Bilirubin 0.4 mg/dL (0.2-1.3); Total Protein 5.9 g/dL (6.3-8.2)
[2023-01-30 08:42] VITALS: RESP 18
[2023-01-30] MEDS: FENOFIBRATE 160 MG TAB PO SCH (08:44)
[2023-01-30] MEDS: ISOSORBIDE MONONITRATE ER 60 MG TAB.ER.24H PO SCH (08:44)
[2023-01-30] MEDS: PIOGLITAZONE 15 MG TAB PO SCH (08:44)
[2023-01-30] MEDS: FERROUS SULFATE 325 MG TAB PO SCH (08:44)
[2023-01-30] MEDS: NIFEdipine XL 90 MG TAB.ER.24 PO SCH (08:44)
[2023-01-30] MEDS: methylPREDNISolone SOD SUCCI 40 MG/ML 1 ML VIAL IV SCH (08:44)
[2023-01-30] MEDS: FUROSEMIDE 10 MG/ML 4 ML VIAL IV SCH (08:44)
[2023-01-30] MEDS: ASPIRIN 325 MG TAB PO SCH (08:44)
[2023-01-30] MEDS: lamoTRIgine 100 MG TAB PO SCH (08:44)
[2023-01-30] MEDS: DULoxetine HCL 60 MG CAPSULE.DR PO SCH (08:44)
[2023-01-30] MEDS: lisinopriL 20 MG TAB PO SCH (08:45)
[2023-01-30] MEDS: hydrALAZINE HCL 25 MG TAB PO SCH (08:45)
[2023-01-30] MEDS: DAPAGLIFLOZIN PROPANEDIOL 5 MG TABLET PO SCH (08:45)
[2023-01-30] MEDS: PREGABALIN 75 MG CAP PO SCH (08:45)
[2023-01-30] MEDS: CLOPIDOGREL 75 MG TAB PO SCH (08:45)
[2023-01-30] MEDS: MULTIVITAMINS, THERA 1 EACH TAB PO SCH (08:45)
[2023-01-30] MEDS: ARIPiprazole 2 MG TAB PO SCH (08:45)
[2023-01-30] MEDS: LACOSAMIDE 50 MG TABLET PO SCH (08:45)
[2023-01-30] MEDS: lamoTRIgine 25 MG TAB PO SCH (08:45)
[2023-01-30] MEDS: INSULN ASP PRT/INSULIN ASPART 100 UNIT/ML 10 ML VIAL SQ SCH (08:46)
--- NOTE | 2023-01-30 09:39 | P.CNNES ---
History of Present Illness Consult date: 01/29/23 Requesting physician: Tiffanie Perez Reason for Consult: Lethargy History of Present Illness: Patient is a 52-year-old left-handed female with history of previous strokes, possible MS, hypertension, came to the hospital for chest pain and hypertensive urgency on 01/25/2023 at 12:30 PM. Patient tells me that she came because she was choking on the water, took a drink of water and started choking, couldn't breathe for 45 minutes to an hour. She states that she came here and they found "all kind of stuff". Her vital signs on arrival was blood pressure 202/92, which went up to 225/77, pulse rate 59 temperature 98.0. Patient also has history of seizure disorder, on multiple psychoactive medications including AEDs . Patient apparently takes Lamictal XR 250 mg daily. As this bed was not available, patient was switched to 225 mg twice a day in the hospital. Apparently patient started becoming drowsy and lethargic day by day while in the hospital. It was later realized that patient was on higher dose of Lamictal. Patient was switched to Lamictal 125 mg twice a day and she is improved. Patient is also on Vimpat, Lyrica Xanax and [place]. Patient has been admitted for congestive heart failure with acute exacerbation with acute on chronic diastolic dysfunction with EF 50%. Possible COPD with mild acute exacerbation with pneumonia. Patient also has acute on chronic renal disease. Patient has been seen by pulmonary medicine, and is being treated for mild exacerbation of COPD, exacerbation of diastolic congestive heart failure, acute on chronic renal disease. Patient states that she uses cane for last 2 years, but when she goes out somewhere, she uses a scooter. Patient has diabetes for last 10 years. She has history of 4 strokes in the past, affected right side. Patient also carries a diagnosis of MS for last 3 years. Patient has smoked half pack per day for 12 years, quit 4-5 months ago denies any alcohol use MRI of the cervical spine from 12/10/2022 showed multilevel disc degeneration with associated osteoarthritic changes resulting in at least mild spinal canal stenosis at C5-C6 and C6-C7 level and moderate bilateral neural foraminal stenosis at C5-C6. MRI of the brain 12/10/2022 revealed remote left basal ganglia/left estevez radiata injury versus tumefactive multiple sclerosis which has mildly increased in size when compared to the prior in 2015. Additional more nonspecific white matter changes which have progressed from 2015. No evidence for active demyelination. MRI of the thoracic spine to 11/16/2022 revealed no evidence of demyelination or abnormal enhancement. No spinal stenosis. Patient has previously been seen by Dr. Pierre in neurology consultation on 06/23/2019 for worsened right-sided numbness and weakness. Patient has history of CVA in the same distribution. MRI of the brain was initiated, TTE. Patient has history of an acute stroke confirmed on MRI from 03/03/2015, which involved the left centrum semiovale and periventricular white region. I personally reviewed MRI of the date, I agree with the findings. She also has been diagnosed with MS by Dr. Brooks, currently on Ocrevus for last 2-3 years. Patient follows up with Mat Mauricio PA-C in [facility]. Review of Systems Constitutional: Reports weight loss, Denies chills, Denies fever Eyes: denies blurred vision, denies pain Ears: deny: decreased hearing, ear discharge, earache Ears, nose, mouth and throat: Denies headache, Denies sore throat Cardiovascular: Reports chest pain, Reports shortness of breath Respiratory: Denies cough, Denies excessive sputum Gastrointestinal: Reports diarrhea, Denies abdominal pain, Denies nausea, Denies vomiting Genitourinary: Reports urge incontinence, Reports urgency Musculoskeletal: Reports gait dysfunction, Reports muscle weakness, Reports myalgias Integumentary: Denies pruritus, Denies rash Neurological: Reports as per HPI Psychiatric: Reports anxiety, Reports depression Endocrine: Reports fatigue, Reports weight change Past Medical History Past Medical History: Blood Disorder, Coronary Artery Disease (CAD), Cancer, Chest Pain / Angina, CVA/TIA, Diabetes Mellitus, Deep Vein Thrombosis (DVT), Fibromyalgia, GERD/Reflux, Hyperlipidemia, Hypertension, Myocardial Infarction (NE), Musculoskeletal Disorder, Neurologic Disorder, Sleep Apnea/CPAP/BIPAP, Vascular Disorder Additional Past Medical History / Comment(s): IDDM type II, uterine/cervical and ovarian cancer, restless leg, Factor V blood disorder, DVT R leg, 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 - slight foot drag when tired/neuropathies, MS, NE X 5, ABIGAIL with Cpap use, PAD/legs, R leg edema, past pancreatitis. Last Myocardial Infarction Date:: Pt thinks 2015 History of Any Multi-Drug Resistant Organisms: None Reported Past Surgical History: Section, Cholecystectomy, Heart Catheterization With Stent, Hysterectomy, Tubal Ligation, Uterine Ablation Additional Past Surgical History / Comment(s): vein stripping right leg, radio frequency ablation of right back-02/22/2015, four stents on 04/03/16 and one on march 05, ovaries removed, colonscopy- polyp removal Past Anesthesia/Blood Transfusion Reactions: Motion Sickness Additional Past Anesthesia/Blood Transfusion Reaction / Comment(s): mild claustrophobia Date of Last Stent Placement:: 04/03/16 Past Psychological History: Anxiety, Depression Additional Psychological History / Comment(s): Pt resides with her spouse. She is mostly in her wheelchair. She has a walker and cane. She has a dexcom. Her spouse assists her with her medication organization. Spouse also drives pt. Smoking Status: Current every day smoker Past Alcohol Use History: None Reported Additional Past Alcohol Use History / Comment(s): Pt started smoking in 1988 and is alittle less than a ppd smoker. Past Drug Use History: None Reported - Past Family History Father Family Medical History: Congestive Heart Failure (CHF), Coronary Artery Disease (CAD), Diabetes Mellitus Mother Family Medical History: Cancer, COPD, Hypertension, Respiratory Disorder Additional Family Medical History / Comment(s): emphysema, colon CA Medications and Allergies Home Medications Medication Instructions Recorded Confirmed Type Pregabalin [Lyrica] 150 mg PO BID 06/25/15 01/25/23 History Magnesium Gluconate [Magonate] 500 mg PO HS 03/27/17 01/25/23 History Aspirin [Adult Low Dose Aspirin EC] 81 mg PO HS 11/26/17 01/25/23 History DULoxetine HCL [Cymbalta] 60 mg PO DAILY 08/25/18 01/25/23 History Isosorbide Mononitrate ER [Imdur] 60 mg PO DAILY 09/08/18 01/25/23 History carvediloL [Coreg] 25 mg PO BID 01/22/19 01/25/23 History ARIPiprazole [Abilify] 2 mg PO DAILY 11/08/20 01/25/23 History ALPRAZolam [Xanax] 2 mg PO HS 07/31/21 01/25/23 History Atorvastatin [Lipitor] 40 mg PO HS 07/31/21 01/25/23 History Pantoprazole Sodium [Protonix] 40 mg PO DAILY 30 Days #30 tab 03/20/22 01/25/23 Rx Insulin Lispro Protamin/Lispro 45 unit SQ HS 07/20/22 01/25/23 History [humaLOG MIX 75-25 Kwikpen] Insulin Lispro Protamin/Lispro 50 unit SQ DAILY 07/20/22 01/25/23 History [humaLOG MIX 75-25 Kwikpen] Albuterol Nebulized [Ventolin 2.5 mg INHALATION RT-QID PRN 10/06/22 01/25/23 History Nebulized] Empagliflozin [Jardiance] 10 mg PO DAILY 10/06/22 01/25/23 History Famotidine 20 mg PO DAILY 10/06/22 01/25/23 History Nitroglycerin Sl Tabs [Nitrostat] 0.4 mg SL Q5M PRN 10/06/22 01/25/23 History Pioglitazone [Actos] 15 mg PO DAILY 10/06/22 01/25/23 History Promethazine [Phenergan] 25 mg PO Q6H PRN 10/06/22 01/25/23 History Ferrous Sulfate [Iron (65 MG 325 mg PO DAILY 30 Days #30 tab 10/08/22 01/25/23 Rx Elemental)] Lacosamide [Vimpat] 50 mg PO BID 28 Days #14 tab 10/18/22 01/25/23 Rx Cholecalciferol [Vitamin D3 (25 25 mcg PO HS 01/25/23 01/25/23 History Mcg = 1000 Iu)] Clopidogrel [Plavix] 75 mg PO DAILY 01/25/23 01/25/23 History Fenofibrate [Lofibra] 160 mg PO DAILY 01/25/23 01/25/23 History HYDROcodone/APAP 7.5-325MG [[place] 1 tab PO HS 01/25/23 01/25/23 History 7.5-325] Ketorolac [Toradol] 10 mg PO DIRECTED PRN 01/25/23 01/25/23 History Multivit-Min/Folic Acid/Pbn515 1 tab PO BID 01/25/23 01/25/23 History [Alive Premium Adult Multivit] Rimegepant Sulfate [Nurtec Odt] 75 mg PO DAILY PRN 01/25/23 01/25/23 History hydrALAZINE HCL [Apresoline] 25 mg PO DAILY 01/25/23 01/25/23 History lamoTRIgine [LaMICtal Xr] 250 mg PO DAILY 01/25/23 01/25/23 History Allergies Allergy/AdvReac Type Severity Reaction Status Date / Time Fish Containing Products Allergy Anaphylaxis Verified 01/25/23 15:50 Iodinated Contrast Media Allergy Anaphylaxis Verified 01/25/23 15:50 [Iodinated Contrast Media - IV Dye] Sulfa (Sulfonamide Allergy Anaphylaxis Verified 01/25/23 15:50 Antibiotics) sulfamethoxazole Allergy Anaphylaxis Verified 01/25/23 15:50 [From ] tree nut [Nut] Allergy Anaphylaxis Verified 01/25/23 15:50 trimethoprim [From ] Allergy Anaphylaxis Verified 01/25/23 15:50 Physical Examination - Vital Signs Vital Signs: Vital Signs Temp Pulse Pulse Resp BP Pulse Ox FiO2 01/29/23 15:54 70 16 01/29/23 15:43 70 18 01/29/23 13:10 98 F 68 18 136/83 92 L 01/29/23 11:43 92 L 01/29/23 11:41 99 40 01/29/23 11:34 70 01/29/23 11:24 70 01/29/23 11:12 40 01/29/23 08:50 97.7 F 72 20 135/65 99 60 01/29/23 08:08 70 01/29/23 07:53 70 98 50 01/29/23 05:29 91 L 50 01/29/23 03:43 97.8 F 64 20 130/69 96 60 01/29/23 01:45 90 L 50 01/29/23 01:00 22 01/28/23 23:05 97.6 F 67 22 132/71 95 60 01/28/23 22:15 22 01/28/23 21:37 97.5 F L 69 22 130/69 93 L 60 01/28/23 21:09 51 Intake and Output 01/29/23 01/29/23 01/29/23 06:59 14:59 22:59 Intake Total 236 Output Total 250 Balance 236 -250 Intake: Oral 236 Output: Urine 250 Other: # Voids 1 # Bowel Movements 1 2 Weight 95 kg 95 kg Patient is a middle aged female, in no acute distress. Patient is currently using Airv Patient is slightly groggy, but does wake up and is fairly well oriented. Patient believes it is December and the year is 2022. She knows that she is in [facility] and name of the current president. Speech and language functions are normal. Patient can name and repeat very well. No aphasia or dysarthria. Attention, concentration and fund of knowledge is adequate. On cranial nerve examination, pupils are equal, round and reacting to light, visual li are full on confrontation, with no neglect on double simultaneous stimulation. Extraocular muscles are intact with no nystagmus. Face is symmetric, tongue protrudes to the midline. Palatal elevation and sensation normal, hearing is normal and shoulder shrug decreased on the right, facial sensation normal. On muscle strength testing, the strength is normal in left arm and left leg distally and proximally. On the right side, deltoid trace, biceps 4, triceps 4, construction grip 2, hip flexion 3+, ankle dorsiflexion 2. Deep tendon reflexes are (right/left) biceps 3+/2+, brachioradialis 3+/2+, knees 3+/3, ankles 3+/1+ and plantar is up on the right, down on the left. Sensory to touch is equal with no neglect on double simultaneous stimulation. Cerebellar function showed no ataxia for hkzlen-ab-rdom testing on the left, cannot perform another on the right. No dysdiadochokinesia. Tone is severely increased on the right side. Gait deferred.. On general examination, there is no carotid bruit or murmur, S1-S2 audible. Chest is clear on consultation. Abdomen is soft nontender. No organomegaly, bowel sounds present. Peripheral pulses are present. No edema. Results - Laboratory Findings CBC and BMP: 01/30/23 06:42 01/30/23 06:42 Abnormal Lab Findings: Abnormal Labs 01/25/23 01/25/23 01/25/23 13:06 13:06 16:21 WBC Hct 46.7 H RDW 17.6 H Neutrophils # APTT BUN 20 H Creatinine 1.12 H Glucose 334 H POC Glucose (mg/dL) Calcium 10.3 H Alkaline Phosphatase 153 H Troponin I 0.039 H* Total Protein 5.9 L Albumin 3.4 L Triglycerides HDL Cholesterol Urine Protein Urine Glucose (UA) Urine WBC Urine Bacteria Urine Mucus 01/25/23 01/26/23 01/26/23 20:22 00:42 06:03 WBC Hct RDW Neutrophils # APTT 34.4 H BUN Creatinine Glucose POC Glucose (mg/dL) 257 H 167 H Calcium Alkaline Phosphatase Troponin I Total Protein Albumin Triglycerides HDL Cholesterol Urine Protein Urine Glucose (UA) Urine WBC Urine Bacteria Urine Mucus 01/26/23 01/26/23 01/26/23 07:53 07:53 11:36 WBC Hct RDW Neutrophils # APTT 38.6 H BUN Creatinine Glucose POC Glucose (mg/dL) 223 H Calcium Alkaline Phosphatase Troponin I Total Protein Albumin Triglycerides 461.00 H HDL Cholesterol 37.90 L Urine Protein Urine Glucose (UA) Urine WBC Urine Bacteria Urine Mucus 01/26/23 01/26/23 01/27/23 16:26 20:10 07:24 WBC Hct RDW Neutrophils # APTT BUN Creatinine Glucose POC Glucose (mg/dL) 245 H 264 H 159 H Calcium Alkaline Phosphatase Troponin I Total Protein Albumin Triglycerides HDL Cholesterol Urine Protein Urine Glucose (UA) Urine WBC Urine Bacteria Urine Mucus 01/27/23 01/27/23 01/27/23 08:28 08:28 11:40 WBC 14.2 H Hct RDW 17.7 H Neutrophils # 10.7 H APTT BUN 25 H Creatinine 1.42 H Glucose 207 H POC Glucose (mg/dL) 175 H Calcium Alkaline Phosphatase Troponin I Total Protein 5.2 L Albumin 2.9 L Triglycerides HDL Cholesterol Urine Protein Urine Glucose (UA) Urine WBC Urine Bacteria Urine Mucus 01/27/23 01/27/23 01/27/23 13:30 16:36 20:06 WBC Hct RDW Neutrophils # APTT BUN Creatinine Glucose POC Glucose (mg/dL) 213 H 283 H Calcium Alkaline Phosphatase Troponin I Total Protein Albumin Triglycerides HDL Cholesterol Urine Protein 3+ H Urine Glucose (UA) 4+ H Urine WBC 11 H Urine Bacteria Rare H Urine Mucus Rare H 01/28/23 01/28/23 01/28/23 09:54 09:54 11:44 WBC 17.4 H Hct RDW 17.7 H Neutrophils # 14.5 H APTT BUN 32 H Creatinine 1.76 H Glucose 130 H POC Glucose (mg/dL) 114 H Calcium Alkaline Phosphatase Troponin I Total Protein 5.5 L Albumin 3.2 L Triglycerides HDL Cholesterol Urine Protein Urine Glucose (UA) Urine WBC Urine Bacteria Urine Mucus 01/28/23 01/28/23 01/29/23 16:41 20:32 06:15 WBC Hct RDW Neutrophils # APTT BUN Creatinine Glucose POC Glucose (mg/dL) 179 H 148 H 62 L Calcium Alkaline Phosphatase Troponin I Total Protein Albumin Triglycerides HDL Cholesterol Urine Protein Urine Glucose (UA) Urine WBC Urine Bacteria Urine Mucus 01/29/23 01/29/23 01/29/23 06:30 08:04 08:04 WBC 11.6 H Hct RDW 18.0 H Neutrophils # 8.7 H APTT BUN 32 H Creatinine 1.76 H Glucose 169 H POC Glucose (mg/dL) 68 L Calcium Alkaline Phosphatase Troponin I Total Protein 5.4 L Albumin 3.0 L Triglycerides HDL Cholesterol Urine Protein Urine Glucose (UA) Urine WBC Urine Bacteria Urine Mucus Assessment and Plan Assessment: * Altered mental status, likely due to metabolic encephalopathy. Possible medication side effect. * Acute exacerbation of diastolic congestive heart failure * Mild exacerbation of COPD with some pulmonary vascular congestion * Hypertensive urgency improved * Possible MS * Acute on chronic renal disease * CAD * Previous history of CVA with residual right hemiplegia * Type 2 diabetes * Hyperlipidemia * Fibromyalgia Plan: * Patient's mentation is improving since her dose of Lamictal has been optimized to her home dose. * Continue Lamictal 125 mg twice a day, and Vimpat 50 mg twice a day. * Await Lamictal level. * Patient's mentation will further improve with treatment of her underlying cardiopulmonary condition. Pulmonary medicine on board. * 2-D echo with severe LVH with EF of 55%. Severe left atrial enlargement. Mild RV enlargement. Cardiology on board. * Carotid Doppler from 07/20/2022 revealed no hemodynamically significant stenosis with antegrade flow in both vertebral arteries. No need to repeat. * Continue dual antiplatelet medications and high intensity statins with Lipitor 80 mg. * Hemoglobin A1c 8.9 on 12/10/2022. Recommend optimize control of diabetes to target A1c <7.0 * Lipid panel with cholesterol 176, LDL 69, HDL 37 and triglycerides 461. Continue Lipitor 80 mg. Recommend treatment for hypertriglyceridemia. * B12 1748, folate 40.0 on 10/07/2022. TSH is normal. * Neurologically, no other workup indicated. Patient is clear otherwise. Time with Patient: Greater than 30
[2023-01-30 11:36] LABS: Glucose,Whole Blood 424 mg/dL (70-110)
[2023-01-30] MEDS ORDERED: INSULIN ASPART (NovoLOG) 100 UNIT/ML VIAL SQ ONE (12:32)
[2023-01-30 12:52] LABS: Glucose,Whole Blood 381 mg/dL (70-110)
[2023-01-30 14:04] LABS: Glucose,Whole Blood 386 mg/dL (70-110)
--- NOTE | 2023-01-30 14:09 | P.PN ---
Subjective Progress Note Date: 01/30/23 Principal diagnosis: acute hypoxic respiratory failure, acute diastolic congestive heart failure, mild COPD water aspiration while swallowing I am seeing this patient in new consultation today 01/29/2023 for increased shortness of breath and oxygen demands on the general medical floor. This is a 52-year-old white female with past medical history of morbid obesity, mild COPD, obstructive sleep apnea with CPAP use, ex-smoker, type 2 diabetes, coronary artery disease with previous IL and stenting, peripheral arterial disease, pancreatitis, fibromyalgia, hyperlipidemia, hypertension, reported factor V 5 leiden blood disorder, multiple previous CVAs, multiple sclerosis, uter ine/cervical and ovarian cancer. Patient was originally admitted back on December for substernal chest pain that radiated down her left chest. At that time, it was rated severe substernal 10 out of 10 and improved with nitroglycerin tabs. She was hypertensive on arrival and short of breath. Jonh quach also had some nausea and diarrhea that started 2-3 days earlier. Chest x- ray on arrival showed no acute cardiopulmonary process. A echocardiogram done on January showed a preserved ejection fraction of 55-60% with severe LVH. A follow-up chest x-ray done yesterday showed findings consistent with acute CHF exacerbation. Patient is currently being diuresed with Lasix 40 mg daily. Follow up NT BNP only 259. D-dimer was low at 0.32. Troponin was only mildly elevated and peaked at 0.039. ECG done on arrival showed normal sinus rhythm without any obvious acute ischemic changes. Most recent CBC done yesterday shows a elevated WBC count of 17.4, hemoglobin 14.6, hematocrit 45.6, platelets 216,000. BMP shows sodium 140, potassium 3.9, chloride 106, serum CO2 27, BUN 32, creatinine 1.76, glucose 130. Patient was negative for influenza, RSV, COVID-19. Patient is currently resting in bed, on AIRVO 60 L and 50%, in no acute distress. Her chest pain is reproducible. She's had admissions in the past for an atypical chest pain. Vital signs are stable. Reevaluated today on 01/30/2023, patient is doing much better,patient is on room air, O2 sats is 97%. Overall the patient has made a significant improvement over the last 2 days.her labs are basically unremarkable renal profile remains abnormal with a BUN of 35 creatinine 1.92, baseline creatinine is 1.12 hence I believe the patient would be better off with lower dose of diuretics are possibly discontinue diuretics.we will also transition to oral prednisone replaced methylprednisolone. Objective - Vital Signs Vital signs: Vital Signs Temp 98.0 F 01/30/23 08:00 Pulse 88 01/30/23 11:39 Resp 18 01/30/23 08:00 BP 132/77 01/30/23 08:00 Pulse Ox 97 01/30/23 08:00 FiO2 40 01/29/23 11:41 Intake & Output 01/29/23 01/30/23 01/30/23 18:59 06:59 18:59 Intake Total 716 20 347 Output Total 250 1350 950 Balance 466 -1330 -603 Weight 95 kg 96 kg Intake: IV 20 10 Invasive Line 2 20 10 Oral 716 337 Output: Urine 250 950 950 Stool 400 Other: # Bowel Movements 2 - Exam Physical Exam: Revealed a 52-year-old female in no distress.on room air Head: Atraumatic, normocephalic. HEENT:[Neck is supple.] [No neck masses.] [No thyromegaly.] [No JVD.] Chest: [Clear throughout, no crackles, no rhonchi, no wheezes.] Cardiac Exam: [Normal S1 and S2, no S3 gallop, no murmur.] Abdomen: [Soft, nontender, no megaly, no rebound, no guarding, normal bowel sounds.] Extremities: [No clubbing, trace of bipedal edema, no cyanosis.] Neurological Exam: right-sided upper extremity weakness noted related to previous CVA. psychiatric: Normal mood affect and normal mental status examination. Skin: No rashes. - Labs CBC & Chem 7: 01/30/23 06:42 01/30/23 06:42 Labs: Abnormal Lab Results - Last 24 Hours (Table) 01/29/23 01/29/23 01/29/23 Range/Units 08:04 16:30 20:11 WBC (3.8-10.6) k/uL RDW (11.5-15.5) % Neutrophils # (1.3-7.7) k/uL BUN (7-17) mg/dL Creatinine (0.52-1.04) mg/dL Glucose (74-99) mg/dL POC Glucose (mg/dL) 129 H 208 H (70-110) mg/dL Calcium (8.4-10.2) mg/dL Total Protein (6.3-8.2) g/dL Procalcitonin 0.11 H (0.02-0.09) ng/mL 01/30/23 01/30/23 01/30/23 Range/Units 06:19 06:42 06:42 WBC 12.3 H (3.8-10.6) k/uL RDW 17.6 H (11.5-15.5) % Neutrophils # 11.1 H (1.3-7.7) k/uL BUN 35 H (7-17) mg/dL Creatinine 1.92 H (0.52-1.04) mg/dL Glucose 209 H (74-99) mg/dL POC Glucose (mg/dL) 194 H (70-110) mg/dL Calcium 10.6 H (8.4-10.2) mg/dL Total Protein 5.9 L (6.3-8.2) g/dL Procalcitonin (0.02-0.09) ng/mL 01/30/23 01/30/23 Range/Units 11:33 12:51 WBC (3.8-10.6) k/uL RDW (11.5-15.5) % Neutrophils # (1.3-7.7) k/uL BUN (7-17) mg/dL Creatinine (0.52-1.04) mg/dL Glucose (74-99) mg/dL POC Glucose (mg/dL) 424 H 381 H (70-110) mg/dL Calcium (8.4-10.2) mg/dL Total Protein (6.3-8.2) g/dL Procalcitonin (0.02-0.09) ng/mL Microbiology - Last 24 Hours (Table) 01/27/23 11:03 Blood Culture - Preliminary Blood No Growth after 72 hours 01/29/23 18:00 Sputum Culture - Preliminary Sputum Assessment and Plan Assessment: impression: Acute hypoxic respiratory failure, multifactorial patient has underlying COPD, she also had hypertensive urgency with interstitial edema on presentation, and she clearly stated to me that she had a history of aspirating and choking on w ater causing significant cough and shortness of breath Hypertensive urgency on arrival, currently improved Atypical chest pain that is reproducible. Troponins were only mildly elevated on arrival. Not felt to be related to ischemia by cardiology. Acute on chronic kidney disease. Creatinine is currently 1.76 Coronary artery disease with previous myocardial infarctions and PCI History of previous CVAs with residual right-sided weakness Diabetes mellitus type 2 Hyperlipidemia Previous ventilator-dependent acute hypoxic respiratory failure Fibromyalgia History of cervical, uterine and ovarian cancer status post total hysterectomy Reported ex-smoker recommendation: Discontinue Lasix Transition to oral prednisone at 30 mg daily from methylprednisolone Patient is now off oxygen completely Continue bronchodilators Will clear the patient for discharge home if cleared by other consultants Time with Patient: Less than 30
[2023-01-30] MEDS ORDERED: predniSONE 10 MG TAB PO SCH (14:15)
[2023-01-30 17:00] VITALS: BP 124/72; PULSE 77; TEMP 98.2
--- NOTE | 2023-02-02 06:19 | P.DS ---
Providers Date of admission: 01/28/23 12:53 Expected date of discharge: 01/30/23 Attending physician: Evin Sanchez Consults: 01/25/23 14:41 Consult Physician Urgent Consulting Provider: [facility] Consult Reason/Comments: Chest pain, hypertensive urgency, gastroenteritis Do you want consulting provider notified?: Yes 01/28/23 12:51 Consult Physician Urgent Consulting Provider: Isrrael Thomas Consult Reason/Comments: shortness of breath, on airvo Do you want consulting provider notified?: Yes 01/29/23 07:11 Consult Physician Routine Consulting Provider: Clem Mccarty Consult Reason/Comments: lethargy Do you want consulting provider notified?: Yes Primary care physician: Dagmar Hennessy Hospital Course: Final diagnosis Congestive heart failure, acute exacerbation with acute on chronic diastolic dysfunction, EF is 50% Chronic obstructive pulmonary disease, acute exacerbation with pneumonia Acute hypoxic respiratory failure secondary to above Coronary artery disease history Diabetes mellitus, type II, uncontrolled hyperglycemia, insulin-dependent History of CVA/TIA Hypertension Hyperlipidemia Sleep apnea Discharge disposition Patient is being discharged in a stable condition with guarded prognosis to home. Patient will follow-up with Dr. Hennessy in the outpatient setting upon discharge. Patient is to continue current medications and close outpatient follow-up with pulmonary and cardiology as scheduled. Patient is to continue prednisone taper along with antibiotics breathing treatments on discharge. Total time taken is greater than 35 minutes. Hospital course This is a 52-year-old female who was recently admitted with shortness of breath mental status changes being closely monitored with multiple medical consultations. Concerns for pneumonia as well requiring high flow oxygen. Mentation has improved and patient was also noted to have an elevated Lamictal level informs of metabolic/toxic encephalopathy due to medication effects. Patient has been cleared by consultations for close outpatient follow-up and will follow-up with cardiology as well as pulmonary. Please refer to other consultation notes for further HPI. Patient does have been controlled blood sugars and is insulin-dependent and has been instructed to monitor glucose levels before meals and at bedtime keep a diary of all readings and follow-up with primary care provider this week. Family would like to take the patient home as opposed to rehab. Currently no reports of chest pain, worsening shortness of breath, or palpitations. Patient is afebrile. No reports of nausea or vomiting and patient is tolerating diet. Patient will be discharged home today. Guarded prognosis and high risk for readmission. Physical exam: Gen: This is a 52-year-old female who is awake, alert and oriented 3, well- developed, well-nourished, obese HEENT: Head is atraumatic, normocephalic. Pupils equal, round. Sclerae is anicteric. NECK: Supple. No JVD. No lymphadenopathy. No thyromegaly. LUNGS: Diminished breath sounds bilaterally with some scattered rhonchi. No intercostal retractions. HEART: S1, S2 are muffled ABDOMEN: Soft. Bowel sounds are present. No masses. No tenderness. EXTREMITIES: No pedal edema. No calf tenderness. NEUROLOGICAL: Patient is awake, alert and oriented x3. Cranial nerves 2 through 12 are grossly intact. Please refer to medication reconciliation sheet for a list of medications. The impression and plan of care has been dictated by Khushboo Patel, Nurse Practitioner as directed. Dr. Phillip MD I have performed a history and examination and MDM of this patient, discussed the same with the dictator, and agree with the dictator's assessment and plan as written ,documented as a scribe. Based on total visit time, I have performed more than 50% of the visit. Patient Condition at Discharge: Fair Plan - Discharge Summary Discharge Rx Participant: No New Discharge Prescriptions: New carvediloL [Coreg*] 12.5 mg PO BID-W/MEALS #60 tab Ipratropium-Albuterol Nebulize [Duoneb 0.5 mg-3 mg/3 ml Soln] 3 ml INHALATION RT-QID #100 each Ipratropium-Albuterol Nebulize [Duoneb 0.5 mg-3 mg/3 ml Soln] 3 ml INHALATION RT-Q2H PRN each PRN Reason: Shortness Of Breath Or Wheezing NIFEdipine XL [Procardia XL] 90 mg PO DAILY #30 tab lisinopriL [Zestril] 20 mg PO BID #60 tab Pregabalin [Lyrica] 75 mg PO BID 3 Days #6 cap cefUROXime axetiL [Ceftin] 500 mg PO BID 3 Days #6 tab predniSONE 10 mg PO DIRECTED #30 tab Budesonide-Formot 160-4.5 Mcg [Symbicort 160-4.5 Mcg Inhaler] 2 puff INHALATION RT-BID 30 Days #1 each Continue Magnesium Gluconate [Magonate] 500 mg PO HS Aspirin [Adult Low Dose Aspirin EC] 81 mg PO HS DULoxetine HCL [Cymbalta] 60 mg PO DAILY Isosorbide Mononitrate ER [Imdur] 60 mg PO DAILY ARIPiprazole [Abilify] 2 mg PO DAILY Pantoprazole Sodium [Protonix] 40 mg PO DAILY 30 Days #30 tab Insulin Lispro Protamin/Lispro [humaLOG MIX 75-25 Kwikpen] 50 unit SQ DAILY Insulin Lispro Protamin/Lispro [humaLOG MIX 75-25 Kwikpen] 45 unit SQ HS Albuterol Nebulized [Ventolin Nebulized] 2.5 mg INHALATION RT-QID PRN PRN Reason: Shortness Of Breath Famotidine 20 mg PO DAILY Nitroglycerin Sl Tabs [Nitrostat] 0.4 mg SL Q5M PRN PRN Reason: Chest Pain Pioglitazone [Actos] 15 mg PO DAILY Promethazine [Phenergan] 25 mg PO Q6H PRN PRN Reason: Nausea Clopidogrel [Plavix] 75 mg PO DAILY Ketorolac [Toradol] 10 mg PO DIRECTED PRN PRN Reason: Pain Atorvastatin [Lipitor] 40 mg PO HS Empagliflozin [Jardiance] 10 mg PO DAILY Ferrous Sulfate [Iron (65 MG Elemental)] 325 mg PO DAILY 30 Days #30 tab Lacosamide [Vimpat] 50 mg PO BID 28 Days #14 tab Cholecalciferol [Vitamin D3 (25 Mcg = 1000 Iu)] 25 mcg PO HS Fenofibrate [Lofibra] 160 mg PO DAILY hydrALAZINE HCL [Apresoline] 25 mg PO DAILY HYDROcodone/APAP 7.5-325MG [[place] 7.5-325] 1 tab PO HS lamoTRIgine [LaMICtal Xr] 250 mg PO DAILY Multivit-Min/Folic Acid/[id number] [Alive Premium Adult Multivit] 1 tab PO BID Rimegepant Sulfate [Nurtec Odt] 75 mg PO DAILY PRN PRN Reason: Migraine Headache Discontinued Pregabalin [Lyrica] 150 mg PO BID carvediloL [Coreg] 25 mg PO BID ALPRAZolam [Xanax] 2 mg PO HS Discharge Medication List Magnesium Gluconate [Magonate] 500 mg PO HS 05/31/17 [History] Aspirin [Adult Low Dose Aspirin EC] 81 mg PO HS 11/26/17 [History] DULoxetine HCL [Cymbalta] 60 mg PO DAILY 08/25/18 [History] Isosorbide Mononitrate ER [Imdur] 60 mg PO DAILY 09/08/18 [History] ARIPiprazole [Abilify] 2 mg PO DAILY 11/08/20 [History] Atorvastatin [Lipitor] 40 mg PO HS 07/31/21 [History] Pantoprazole Sodium [Protonix] 40 mg PO DAILY 30 Days #30 tab 03/20/22 [Rx] Insulin Lispro Protamin/Lispro [humaLOG MIX 75-25 Kwikpen] 45 unit SQ HS [History] Insulin Lispro Protamin/Lispro [humaLOG MIX 75-25 Kwikpen] 50 unit SQ DAILY 07/20/22 [History] Albuterol Nebulized [Ventolin Nebulized] 2.5 mg INHALATION RT-QID PRN 10/06/22 [History] Empagliflozin [Jardiance] 10 mg PO DAILY 10/06/22 [History] Famotidine 20 mg PO DAILY 10/06/22 [History] Nitroglycerin Sl Tabs [Nitrostat] 0.4 mg SL Q5M PRN 10/06/22 [History] Pioglitazone [Actos] 15 mg PO DAILY 10/06/22 [History] Promethazine [Phenergan] 25 mg PO Q6H PRN 10/06/22 [History] Ferrous Sulfate [Iron (65 MG Elemental)] 325 mg PO DAILY 30 Days #30 tab 10/08/22 [Rx] Lacosamide [Vimpat] 50 mg PO BID 28 Days #14 tab 10/18/22 [Rx] Cholecalciferol [Vitamin D3 (25 Mcg = 1000 Iu)] 25 mcg PO HS 01/25/23 [History] Clopidogrel [Plavix] 75 mg PO DAILY 01/25/23 [History] Fenofibrate [Lofibra] 160 mg PO DAILY 01/25/23 [History] HYDROcodone/APAP 7.5-325MG [[place] 7.5-325] 1 tab PO HS 01/25/23 [History] Ketorolac [Toradol] 10 mg PO DIRECTED PRN 01/25/23 [History] Multivit-Min/Folic Acid/[id number] [Alive Premium Adult Multivit] 1 tab PO BID 01/25/23 [History] Rimegepant Sulfate [Nurtec Odt] 75 mg PO DAILY PRN 01/25/23 [History] hydrALAZINE HCL [Apresoline] 25 mg PO DAILY 01/25/23 [History] lamoTRIgine [LaMICtal Xr] 250 mg PO DAILY 01/25/23 [History] Budesonide-Formot 160-4.5 Mcg [Symbicort 160-4.5 Mcg Inhaler] 2 puff INHALATION RT-BID 30 Days #1 each 01/30/23 [Rx] Ipratropium-Albuterol Nebulize [Duoneb 0.5 mg-3 mg/3 ml Soln] 3 ml INHALATION RT-Q2H PRN each 01/30/23 [Rx] Ipratropium-Albuterol Nebulize [Duoneb 0.5 mg-3 mg/3 ml Soln] 3 ml INHALATION RT-QID #100 each 01/30/23 [Rx] NIFEdipine XL [Procardia XL] 90 mg PO DAILY #30 tab 01/30/23 [Rx] Pregabalin [Lyrica] 75 mg PO BID 3 Days #6 cap 01/30/23 [Rx] carvediloL [Coreg*] 12.5 mg PO BID-W/MEALS #60 tab 01/30/23 [Rx] cefUROXime axetiL [Ceftin] 500 mg PO BID 3 Days #6 tab 01/30/23 [Rx] lisinopriL [Zestril] 20 mg PO BID #60 tab 01/30/23 [Rx] predniSONE 10 mg PO DIRECTED #30 tab 01/30/23 [Rx] Follow up Appointment(s)/Referral(s): [facility] [NON-STAFF] - Dagmar Hennessy MD [Primary Care Provider] - 1-2 days Jose Figueredo DO [Doctor of Osteopathic Medicine] - 1 Week Ambulatory/Diagnostic Orders: Complete Blood Count w/diff [LAB.AMB] Time Frame: 3 Days, Location: None Selected Patient Instructions/Handouts: Chest Pain (DC), Heart Healthy Diet (ED), Seasoning Without Salt (GEN), Aspiration Pneumonia (DC), COPD (Chronic Obstructive Pulmonary Disease) (DC), Low-Sodium Diet (ED), Hypertensive Crisis (ED), Hypertension (ED), Chronic Respiratory Failure (DC), Acute Respiratory Failure (ED) Activity/Diet/Wound Care/Special Instructions: Activity Limited until follow-up follow-up with primary care provider on discharge follow-up with pulmonary outpatient Follow-up with cardiology outpatient 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
== END 2023-01-30 16:38 | disposition home or self-care (01) | DRG 199 ==
LOC: EC 12:30 → INTOOBSV 14:41 → 3SCARD 14:41 → OBSVTOIN 01-28 12:53
PROVIDERS: ADMIT Internal Medicine; ATTEND Internal Medicine
DX: I16.1 Hypertensive emergency (principal); E78.5 Hyperlipidemia, unspecified; E86.0 Dehydration; F32.A Depression, unspecified; F40.240 Claustrophobia; Z20.822 Contact with and (suspected) exposure to COVID-19; G35 Multiple sclerosis; G93.41 Metabolic encephalopathy; I13.0 Hypertensive heart and chronic kidney disease with heart failure and stage 1 through stage 4 chronic kidney disease, or unspecified chronic kidney disease; I50.33 Acute on chronic diastolic (congestive) heart failure; E11.22 Type 2 diabetes mellitus with diabetic chronic kidney disease; E11.51 Type 2 diabetes mellitus with diabetic peripheral angiopathy without gangrene; E66.01 Morbid (severe) obesity due to excess calories; J96.01 Acute respiratory failure with hypoxia; F17.210 Nicotine dependence, cigarettes, uncomplicated; G25.81 Restless legs syndrome; M79.7 Fibromyalgia; K21.9 Gastro-esophageal reflux disease without esophagitis; I16.0 Hypertensive urgency; J44.1 Chronic obstructive pulmonary disease with (acute) exacerbation; I45.10 Unspecified right bundle-branch block; N18.9 Chronic kidney disease, unspecified; N17.9 Acute kidney failure, unspecified; F41.9 Anxiety disorder, unspecified; I69.351 Hemiplegia and hemiparesis following cerebral infarction affecting right dominant side; E11.42 Type 2 diabetes mellitus with diabetic polyneuropathy; E11.65 Type 2 diabetes mellitus with hyperglycemia; D68.51 Activated protein C resistance; G47.33 Obstructive sleep apnea (adult) (pediatric); J69.0 Pneumonitis due to inhalation of food and vomit; G40.909 Epilepsy, unspecified, not intractable, without status epilepticus; R07.89 Other chest pain; R00.1 Bradycardia, unspecified; Z87.19 Personal history of other diseases of the digestive system; I25.10 Atherosclerotic heart disease of native coronary artery without angina pectoris; I45.2 Bifascicular block; K52.9 Noninfective gastroenteritis and colitis, unspecified; Z79.02 Long term (current) use of antithrombotics/antiplatelets; Z79.4 Long term (current) use of insulin; Z79.82 Long term (current) use of aspirin; Z79.84 Long term (current) use of oral hypoglycemic drugs; Z79.899 Other long term (current) drug therapy; Z68.34 Body mass index [BMI] 34.0-34.9, adult; Z85.43 Personal history of malignant neoplasm of ovary; Z95.5 Presence of coronary angioplasty implant and graft; Z99.11 Dependence on respirator [ventilator] status; Z91.013 Allergy to seafood; Z91.041 Radiographic dye allergy status; Z90.710 Acquired absence of both cervix and uterus; Z98.51 Tubal ligation status; Z90.49 Acquired absence of other specified parts of digestive tract; Z91.018 Allergy to other foods; Z88.2 Allergy status to sulfonamides
CPT/HCPCS: 36415; 71045; 71046; 80053; 80061; 80175; 81001; 82009; 83721; 83735; 83880; 84145; 84484; 85025; 85379; 85610; 85730; 87040; 87070; 87205; 87636; 93005; 93306; 94640; 94660; 94760; 96365; 96375; 99285

== ENCOUNTER 2023-02-05 10:17 | Emergency (ER) | payer OTHER ==
[2023-02-05] MEDS ORDERED: SODIUM CHLORIDE 0.9% 500 ML 500 ML IV STA (10:43)
[2023-02-05 10:45] VITALS: TEMP 97.6
--- NOTE | 2023-02-05 10:52 | ED ---
General Adult HPI - General Chief complaint: Dizziness Stated complaint: dizziness Time Seen by Provider: 02/05/23 10:22 Source: patient, EMS, RN notes reviewed, old records reviewed Mode of arrival: EMS Limitations: no limitations - History of Present Illness Initial comments: Patient presents to the emergency room with complaints of feeling weak and d ami. Worse with position changes. States that she got up this morning and was unable to take her medications or drink her cup of coffee due to her weakness. was just discharged from the hospital on January 30 after admitted on January 25. She denies any fevers. No abdominal pain. States she does have a history of multiple strokes and has weakness. Gets around at home with assistance from her and her wheelchair. She denies any falls. She has a history of MS, hypertension, fibromyalgia, diabetes, seizure disorder and coronary artery disease. -: hour(s) (3) Severity scale (1-10): 4 Quality: aching (geneneralized) Associated Symptoms: other (dizziness, "foggy") - Related Data Home Medications Medication Instructions Recorded Confirmed Magnesium Gluconate [Magonate] 500 mg PO HS 03/27/17 02/05/23 Aspirin [Adult Low Dose Aspirin EC] 81 mg PO HS 11/26/17 02/05/23 DULoxetine HCL [Cymbalta] 60 mg PO DAILY 08/25/18 02/05/23 Isosorbide Mononitrate ER [Imdur] 60 mg PO DAILY 09/08/18 02/05/23 ARIPiprazole [Abilify] 2 mg PO DAILY 11/08/20 02/05/23 Atorvastatin [Lipitor] 40 mg PO HS 07/31/21 02/05/23 Insulin Lispro Protamin/Lispro 45 unit SQ HS 07/20/22 02/05/23 [humaLOG MIX 75-25 Kwikpen] Insulin Lispro Protamin/Lispro 50 unit SQ DAILY 07/20/22 02/05/23 [humaLOG MIX 75-25 Kwikpen] Albuterol Nebulized [Ventolin 2.5 mg INHALATION RT-QID PRN 10/06/22 02/05/23 Nebulized] Empagliflozin [Jardiance] 10 mg PO DAILY 10/06/22 02/05/23 Famotidine 20 mg PO DAILY 10/06/22 02/05/23 Nitroglycerin Sl Tabs [Nitrostat] 0.4 mg SL Q5M PRN 10/06/22 02/05/23 Pioglitazone [Actos] 15 mg PO DAILY 10/06/22 02/05/23 Cholecalciferol [Vitamin D3 (25 25 mcg PO HS 01/25/23 02/05/23 Mcg = 1000 Iu)] Fenofibrate [Lofibra] 160 mg PO DAILY 01/25/23 02/05/23 HYDROcodone/APAP 7.5-325MG [[place] 1 tab PO HS 01/25/23 02/05/23 7.5-325] Multivit-Min/Folic Acid/Nmt612 1 tab PO BID 01/25/23 02/05/23 [Alive Premium Adult Multivit] Rimegepant Sulfate [Nurtec Odt] 75 mg PO DAILY PRN 01/25/23 02/05/23 hydrALAZINE HCL [Apresoline] 25 mg PO DAILY 01/25/23 02/05/23 lamoTRIgine [LaMICtal Xr] 250 mg PO DAILY 01/25/23 02/05/23 ALPRAZolam [Xanax] 2 mg PO HS 02/05/23 02/05/23 Pregabalin [Lyrica] 150 mg PO BID 02/05/23 02/05/23 carvediloL [Coreg] 25 mg PO BID 02/05/23 02/05/23 Previous Rx's Medication Instructions Recorded Pantoprazole Sodium [Protonix] 40 mg PO DAILY 30 Days #30 tab 03/20/22 Ferrous Sulfate [Iron (65 MG 325 mg PO DAILY 30 Days #30 tab 10/08/22 Elemental)] Lacosamide [Vimpat] 50 mg PO BID 28 Days #14 tab 10/18/22 Allergies Allergy/AdvReac Type Severity Reaction Status Date / Time Fish Containing Products Allergy Anaphylaxis Verified 02/05/23 11:25 Iodinated Contrast Media Allergy Anaphylaxis Verified 02/05/23 11:25 [Iodinated Contrast Media - IV Dye] Sulfa (Sulfonamide Allergy Anaphylaxis Verified 02/05/23 11:25 Antibiotics) sulfamethoxazole Allergy Anaphylaxis Verified 02/05/23 11:25 [From Septra] tree nut [Nut] Allergy Anaphylaxis Verified 02/05/23 11:25 trimethoprim [From Junra] Allergy Anaphylaxis Verified 02/05/23 11:25 Patient : No Review of Systems ROS Statement: Those systems with pertinent positive or pertinent negative responses have been documented in the HPI. ROS Other: All systems not noted in ROS Statement are negative. 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 Last Myocardial Infarction Date:: Pt thinks 2015 History of Any Multi-Drug Resistant Organisms: None Reported Past Surgical History: Section, Cholecystectomy, Heart Catheterization With Stent, Hysterectomy, Tubal Ligation, Uterine Ablation Additional Past Surgical History / Comment(s): vein stripping right leg, radio frequency ablation of right back-02/22/2015, four stents on 04/03/16 and one on march 05, ovaries removed, colonscopy- polyp removal Past Anesthesia/Blood Transfusion Reactions: Motion Sickness Additional Past Anesthesia/Blood Transfusion Reaction / Comment(s): mild claustrophobia Date of Last Stent Placement:: 04/03/16 Past Psychological History: Anxiety, Depression Smoking Status: Current every day smoker Past Alcohol Use History: None Reported Past Drug Use History: None Reported - Past Family History Father Family Medical History: Congestive Heart Failure (CHF), Coronary Artery Disease (CAD), Diabetes Mellitus Mother Family Medical History: Cancer, COPD, Hypertension, Respiratory Disorder Additional Family Medical History / Comment(s): emphysema, colon CA General Exam Limitations: no limitations General appearance: alert, in no apparent distress Head exam: Present: atraumatic, normocephalic, normal inspection Eye exam: Present: other (No nystagmus). Absent: scleral icterus, conjunctival injection, periorbital swelling ENT exam: Present: mucous membranes moist Expanded Mouth exam: Present: tongue normal, tongue elevation. Absent: drooling, trismus, muffled voice Neck exam: Present: full ROM. Absent: tenderness, meningismus, lymphadenopathy Respiratory exam: Present: normal lung sounds bilaterally. Absent: respiratory distress, accessory muscle use Cardiovascular Exam: Present: regular rate GI/Abdominal exam: Present: soft Extremities exam: Present: normal capillary refill. Absent: pedal edema Back exam: Absent: tenderness, CVA tenderness (R), CVA tenderness (L), rash noted Neurological exam: Present: alert, oriented X3 Psychiatric exam: Present: normal affect, normal mood Skin exam: Present: warm, dry, normal color. Absent: cyanosis, diaphoretic, petechiae, pallor Course Vital Signs 02/05/23 02/05/23 02/05/23 10:39 11:30 12:22 Temperature 97.6 F Pulse Rate 64 67 67 Respiratory 18 18 16 Rate Blood Pressure 188/81 193/84 184/90 O2 Sat by Pulse 96 97 96 Oximetry 02/05/23 13:39 Temperature Pulse Rate 67 Respiratory 16 Rate Blood Pressure 180/97 O2 Sat by Pulse 97 Oximetry EKG Findings - EKG Results: EKG: sinus rhythm (Ventricular rate of 66, W[place] interval 0.168, QRS 0.172, QTC 0.4 55, left axis deviation, old EKG 01/31/2023 showed acute MS) Medical Decision Making - Medical Decision Making 52-year-old female, alert and oriented 4, presents to the emergency room with complaints of feeling dizzy this morning. was just discharged from the hospital after a 5 day stay from January 25 to January 30. States yesterday she felt fine and today she was feeling dizzy and not well. was unable to drink her coffee or take her medications. dizziness resolves when she closes her eyes. Denies any chest pain or difficulty breathing. Does have history of coronary artery disease, multiple CVA's with residual right-sided weakness, hypertension, fibromyalgia, insulin-dependent diabetes, MS. elevated creatinine of 1.76, patient was transitioned to oral prednisone 30 mg a day just to continue bronchodilators Medical records reviewed from her last admission show she was seen by neurology. She is taking Vimpat, Lyrica, Xanax and [place]. Diagnosed with MS by Dr. Strange 2-D echo was performed with severe left ventricular hypertrophy with EF of 55%. Severe left atrial enlargement. Mild right ventricular enlargement. EKG shows sinus rhythm with a ventricular rate of 66, [place] interval 0.168, QRS 0.172, QTC 0.455, left axis deviation, this EKG was compared to EKG 01/31/2023 CT brain performed today as Dr Lopez stated EMS reported patient was unresponsive upon their arrival. CT interpreted by me shows no evidence of midline shift or mass. Radiologist impression age-related atrophic and chronic small vessel ischemic change without acute intracranial process at this time. Labs were reviewed and compared to last week's discharge labs with no concerning values. Patient states did not take her medications this morning, states that she does not know the names of her medications. She was offered admission for dizziness and weakness and declined. She is requesting to be discharged home states has appointment with her doctors tomorrow. She was given Antivert in the emergency room. She states that she gets around the house via wheelchair with her 's assistance. They're both comfortab le being discharged home and returning with any new or concerning symptoms. Patient and were offered admission and declined. Case discussed with Dr. Lopez Was pt. sent in by a medical professional or institution (, PA, DAY GUARD, urgent care, hospital, or fci...) When possible be specific @ -No Did you speak to anyone other than the patient for history (EMS, parent, family, police, friend...)? What history was obtained from this source @ - Did you review nursing and triage notes (agree or disagree)? Why? @ -I reviewed and agree with nursing and triage notes Were old charts reviewed (outside hosp., previous admission, EMS record, old EKG, old radiological studies, urgent care reports/EKG's, fci records)? Report findings @ -Yes previous labs, last week's admission, old EKG Differential Diagnosis (chest pain, altered mental status, abdominal pain women, abdominal pain men, vaginal bleeding, weakness, fever, dyspnea, syncope, headache, dizziness, GI bleed, back pain, seizure, CVA, palpatations, mental health, musculoskeletal)? @ -Differential Dizziness: Benign paroxysmal positional Vertigo, Menieres disease, otitis media, acoustic neuroma, vertebrobasilar insufficiency, cerebellar stroke, encephalitis, hypovolemic, arrhythmia, coronary artery syndrome, anemia, this is not meant to be an all-inclusive list Differential Altered Mental Status: Hypoglycemia, DKA, hypercapnia, ETOH, overdose, CO poisoning, trauma, myxedema coma, HTN encephalopathy, infection, encephalitis, psychosis, intercranial hemorrhage, hepatic encephalopathy, meningitis, CVA, this is not meant to be an all-inclusive list EKG interpreted by me (3pts min.). @ -As above X-rays interpreted by me (1pt min.). @ -None done CT interpreted by me (1pt min.). @ -Yes as above U/S interpreted by me (1pt. min.). @ -None done What testing was considered but not performed or refused? (CT, X-rays, U/S, labs)? Why? @ -None What meds were considered but not given or refused? Why? @ -Daily medications were offered and patient declined stating she will take when she gets home. Did you discuss the management of the patient with other professionals (professionals i.e. , PA, DAY GUARD, lab, RT, psych nurse, foster care social worker, artist suspect, teacher, complaint investigations officer, social work case manager)? Give summary @ -No Was smoking cessation discussed for >3mins.? @ -No Was critical care preformed (if so, how long)? @ -No Were there social determinants of health that impacted care today? How? (Homelessness, low income, unemployed, alcoholism, drug addiction, transportation, low edu. Level, literacy, decrease access to med. care, halfway, rehab)? @ -No Was there de-escalation of care discussed even if they declined (Discuss DNR or withdrawal of care, Hospice)? DNR status @ -No What co-morbidities impacted this encounter? (DM, HTN, Smoking, COPD, CAD, Cancer, CVA, ARF, Chemo, Hep., AIDS, mental health diagnosis, sleep apnea, morbid obesity)? @ -CVA, diabetes, fibromyalgia, hypertension, coronary artery disease Was patient admitted / discharged? Hospital course, mention meds given and route, prescriptions, significant lab abnormalities, going to OR and other pertinent info. @ -discharged Undiagnosed new problem with uncertain prognosis? @ -No Drug Therapy requiring intensive monitoring for toxicity (Heparin, Nitro, Insulin, Cardizem)? @ -No Were any procedures done? @ -No Diagnosis/symptom? @ -Dizziness, weakness Acute, or Chronic, or Acute on Chronic? @ -Acute Uncomplicated (without systemic symptoms) or Complicated (systemic symptoms)? @ -Uncomplicated Side effects of treatment? @ -No Exacerbation, Progression, or Severe Exacerbation? @ -No Poses a threat to life or bodily function? How? (Chest pain, USA, MS, pneumonia, PE, COPD, DKA, ARF, appy, cholecystitis, CVA, Diverticulitis, Homicidal, Suicidal, threat to staff... and all critical care pts) @ -No - Lab Data Result diagrams: 02/05/23 11:02/05/23 11: Lab Results 02/05/23 02/05/23 02/05/23 Range/Units 11: 11: 11: WBC 12.9 H (3.8-10.6) k/uL RBC 5.00 (3.80-5.40) m/uL Hgb 14.2 (11.4-16.0) gm/dL Hct 44.1 (34.0-46.0) % MCV 88.3 (80.0-100.0) fL MCH 28.3 (25.0-35.0) pg MCHC 32.1 (31.0-37.0) g/dL RDW 17.1 H (11.5-15.5) % Plt Count 177 (150-450) k/uL MPV 10.0 Neutrophils % 77 % Lymphocytes % 16 % Monocytes % 5 % Eosinophils % 2 % Basophils % 0 % Neutrophils # 9.9 H (1.3-7.7) k/uL Lymphocytes # 2.0 (1.0-4.8) k/uL Monocytes # 0.6 (0-1.0) k/uL Eosinophils # 0.2 (0-0.7) k/uL Basophils # 0.0 (0-0.2) k/uL Anisocytosis Slight PT 10.8 (9.0-12.0) sec INR 1.0 (<1.2) Sodium 136 L (137-145) mmol/L Potassium 4.7 (3.5-5.1) mmol/L Chloride 104 (98-107) mmol/L Carbon Dioxide 27 (22-30) mmol/L Anion Gap 5 mmol/L BUN 33 H (7-17) mg/dL Creatinine 1.39 H (0.52-1.04) mg/dL Est GFR (CKD-EPI)AfAm 51 (>60 ml/min/1.73 sqM) Est GFR (CKD-EPI)NonAf 44 (>60 ml/min/1.73 sqM) Glucose 260 H (74-99) mg/dL POC Glucose (mg/dL) (70-110) mg/dL POC Glu Side Show Entertainer ID Calcium 9.6 (8.4-10.2) mg/dL Total Bilirubin 0.3 (0.2-1.3) mg/dL AST 22 (14-36) U/L ALT 21 (4-34) U/L Alkaline Phosphatase 108 (38-126) U/L Troponin I (0.000-0.034) ng/mL Total Protein 5.6 L (6.3-8.2) g/dL Albumin 3.2 L (3.5-5.0) g/dL 02/05/23 02/05/23 Range/Units 11:01 11:52 WBC (3.8-10.6) k/uL RBC (3.80-5.40) m/uL Hgb (11.4-16.0) gm/dL Hct (34.0-46.0) % MCV (80.0-100.0) fL MCH (25.0-35.0) pg MCHC (31.0-37.0) g/dL RDW (11.5-15.5) % Plt Count (150-450) k/uL MPV Neutrophils % % Lymphocytes % % Monocytes % % Eosinophils % % Basophils % % Neutrophils # (1.3-7.7) k/uL Lymphocytes # (1.0-4.8) k/uL Monocytes # (0-1.0) k/uL Eosinophils # (0-0.7) k/uL Basophils # (0-0.2) k/uL Anisocytosis PT (9.0-12.0) sec INR (<1.2) Sodium (137-145) mmol/L Potassium (3.5-5.1) mmol/L Chloride (98-107) mmol/L Carbon Dioxide (22-30) mmol/L Anion Gap mmol/L BUN (7-17) mg/dL Creatinine (0.52-1.04) mg/dL Est GFR (CKD-EPI)AfAm (>60 ml/min/1.73 sqM) Est GFR (CKD-EPI)NonAf (>60 ml/min/1.73 sqM) Glucose (74-99) mg/dL POC Glucose (mg/dL) 226 H (70-110) mg/dL POC Glu Side Show Entertainer Ania Olson Calcium (8.4-10.2) mg/dL Total Bilirubin (0.2-1.3) mg/dL AST (14-36) U/L ALT (4-34) U/L Alkaline Phosphatase (38-126) U/L Troponin I 0.012 (0.000-0.034) ng/mL Total Protein (6.3-8.2) g/dL Albumin (3.5-5.0) g/dL Disposition Clinical Impression: Weakness, Dizziness Disposition: HOME SELF-CARE Condition: Good Instructions (If sedation given, give patient instructions): Weakness (ED), Dizziness (ED) Additional Instructions: Take your daily medications when you get home. Keep your appointments as scheduled with your doctors tomorrow. Return to the emergency room with any new or concerning symptoms. Is patient prescribed a controlled substance at d/c from ED?: No Referrals: Dagmar Hennessy MD [Primary Care Provider] - 1-2 days Time of Disposition: 13:13
[2023-02-05 11:31] VITALS: PULSE 67
[2023-02-05 11:44] LABS: Anisocytosis Slight; Basophils % (A) 0 %; Eosinophils # (A) 0.2 k/uL (0-0.7); Eosinophils % (A) 2 %; HCT 44.1 % (34.0-46.0); HGB 14.2 gm/dL (11.4-16.0); Lymphocytes % (A) 16 %; MCH 28.3 pg (25.0-35.0); MCHC 32.1 g/dL (31.0-37.0); MCV 88.3 fL (80.0-100.0); Monocytes # (A) 0.6 k/uL (0-1.0); Monocytes % (A) 5 %; Neutrophils # (A) 9.9 k/uL (1.3-7.7); Neutrophils % (A) 77 %; Platelet Count 177 k/uL (150-450); RDW 17.1 % (11.5-15.5); WBC 12.9 k/uL (3.8-10.6)
[2023-02-05 11:52] LABS: Prothrombin Time 10.8 sec (9.0-12.0)
[2023-02-05 11:53] LABS: Albumin 3.2 g/dL (3.5-5.0); Calcium 9.6 mg/dL (8.4-10.2); Potassium 4.7 mmol/L (3.5-5.1); Total Bilirubin 0.3 mg/dL (0.2-1.3); Total Protein 5.6 g/dL (6.3-8.2)
[2023-02-05 11:54] LABS: Glucose,Whole Blood 226 mg/dL (70-110)
[2023-02-05 12:24] VITALS: RESP 16
--- NOTE | 2023-02-05 12:48 | CT ---
EXAMINATION TYPE: CT brain wo con DATE OF EXAM: 02/05/2023 COMPARISON: 10/06/2022 HISTORY: Dizziness CT DLP: 1158.[address] of the brain was performed. The ventricles, basal cisterns and sulci overlying the cerebral convexities demonstrate mild enlargem ent. There is no evidence for intracranial hemorrhage or sulcal effacement. Remote insult to the posterio r left internal capsule. Also decreased attenuation stable in appearance left centrum semioval bilate rally. There is decreased attenuation about the periventricular white matter and deep white matter of both c erebral hemispheres, compatible with chronic small vessel ischemia. Differential diagnosis does inclu de demyelination. No mass effects are seen.No midline shift. Osseous calvarium is intact. If symptoms persist consider MRI. IMPRESSION: 1. Age related atrophic and chronic small vessel ischemic change without acute intracranial process s een at this time.
[2023-02-05] MEDS ORDERED: MECLIZINE 12.5 MG TAB PO STA (13:11)
[2023-02-05 13:41] VITALS: BP 180/97
== END 2023-02-05 13:41 | disposition home or self-care (01) ==
LOC: EC 10:17
DX: R42 Dizziness and giddiness (principal); R53.1 Weakness; I25.10 Atherosclerotic heart disease of native coronary artery without angina pectoris; E78.5 Hyperlipidemia, unspecified; E11.9 Type 2 diabetes mellitus without complications; I10 Essential (primary) hypertension; K21.9 Gastro-esophageal reflux disease without esophagitis; I25.2 Old myocardial infarction; Z86.718 Personal history of other venous thrombosis and embolism; Z86.73 Personal history of transient ischemic attack (TIA), and cerebral infarction without residual deficits; F41.9 Anxiety disorder, unspecified; F32.A Depression, unspecified; F17.200 Nicotine dependence, unspecified, uncomplicated; Z88.2 Allergy status to sulfonamides; Z88.1 Allergy status to other antibiotic agents; Z91.041 Radiographic dye allergy status; Z91.013 Allergy to seafood; Z91.018 Allergy to other foods; Z79.82 Long term (current) use of aspirin; Z79.4 Long term (current) use of insulin; Z79.84 Long term (current) use of oral hypoglycemic drugs; Z79.899 Other long term (current) drug therapy
CPT/HCPCS: 36415; 70450; 80053; 84484; 85025; 85610; 93005; 99285

== ENCOUNTER 2023-03-23 15:43 | Emergency (ER) | payer OTHER ==
[2023-03-23 15:49] VITALS: RESP 18; TEMP 97.8
--- NOTE | 2023-03-23 15:52 | ED ---
General Adult HPI - General Chief complaint: Extremity Problem,Nontraumatic Stated complaint: Weakness Time Seen by Provider: 03/23/23 15:50 Source: patient, EMS Mode of arrival: EMS Limitations: no limitations - History of Present Illness Initial comments: Patient presents to the ED by ambulance for evaluation with her at the bedside. Patient states that about 2-1/2 hours ago, she was getting ready for a nap when she developed increasing right-sided facial/body "tingling". Patient states that she has had chronic right-sided facial/body tingling ever since her stroke in 2014. Patient states that she also has chronic right upper extremity weakness since this prior stroke. Patient states that her right-sided tingling waxes and wanes from time to time, and she states that it increased this afternoon, but has now returned to its normal level of tingling. Patient states that she was discussing these symptoms with her son who lives in [place], and he is the one that called for an ambulance for her. She states that she is not sure why she is here in the emergency room right now. She states that she feels back to normal at this time. Patient denies any new area of numbness/tingling/weakness, any pain, fever or chills, headache, visual changes, speech difficulty, neck/back/extremity pain, chest pain, dyspnea, palpitations, dizziness, abdominal pain, nausea/vomiting/diarrhea, bloody or melanotic stool, dysuria or urinary symptoms, or any other symptoms or complaints. Patient denies medication abuse or overdose. Patient denies illicit drug use or alcohol use. Patient states that she has multiple sclerosis, and she is 3 months past due for her Ocrevus shot. - Related Data Home Medications Medication Instructions Recorded Confirmed Magnesium Gluconate [Magonate] 500 mg PO HS 03/27/17 02/05/23 Aspirin [Adult Low Dose Aspirin EC] 81 mg PO HS 11/26/17 02/05/23 DULoxetine HCL [Cymbalta] 60 mg PO DAILY 08/25/18 02/05/23 Isosorbide Mononitrate ER [Imdur] 60 mg PO DAILY 09/08/18 02/05/23 ARIPiprazole [Abilify] 2 mg PO DAILY 11/08/20 02/05/23 Atorvastatin [Lipitor] 40 mg PO HS 07/31/21 02/05/23 Insulin Lispro Protamin/Lispro 45 unit SQ HS 07/20/22 02/05/23 [humaLOG MIX 75-25 Kwikpen] Insulin Lispro Protamin/Lispro 50 unit SQ DAILY 07/20/22 02/05/23 [humaLOG MIX 75-25 Kwikpen] Albuterol Nebulized [Ventolin 2.5 mg INHALATION RT-QID PRN 10/06/22 02/05/23 Nebulized] Empagliflozin [Jardiance] 10 mg PO DAILY 10/06/22 02/05/23 Famotidine 20 mg PO DAILY 10/06/22 02/05/23 Nitroglycerin Sl Tabs [Nitrostat] 0.4 mg SL Q5M PRN 10/06/22 02/05/23 Pioglitazone [Actos] 15 mg PO DAILY 10/06/22 02/05/23 Cholecalciferol [Vitamin D3 (25 25 mcg PO HS 01/25/23 02/05/23 Mcg = 1000 Iu)] Fenofibrate [Lofibra] 160 mg PO DAILY 01/25/23 02/05/23 HYDROcodone/APAP 7.5-325MG [[place] 1 tab PO HS 01/25/23 02/05/23 7.5-325] Multivit-Min/Folic Acid/Uer234 1 tab PO BID 01/25/23 02/05/23 [Alive Premium Adult Multivit] Rimegepant Sulfate [Nurtec Odt] 75 mg PO DAILY PRN 01/25/23 02/05/23 hydrALAZINE HCL [Apresoline] 25 mg PO DAILY 01/25/23 02/05/23 lamoTRIgine [LaMICtal Xr] 250 mg PO DAILY 01/25/23 02/05/23 ALPRAZolam [Xanax] 2 mg PO HS 02/05/23 02/05/23 Pregabalin [Lyrica] 150 mg PO BID 02/05/23 02/05/23 carvediloL [Coreg] 25 mg PO BID 02/05/23 02/05/23 Previous Rx's Medication Instructions Recorded Pantoprazole Sodium [Protonix] 40 mg PO DAILY 30 Days #30 tab 03/20/22 Ferrous Sulfate [Iron (65 MG 325 mg PO DAILY 30 Days #30 tab 10/08/22 Elemental)] Lacosamide [Vimpat] 50 mg PO BID 28 Days #14 tab 10/18/22 Allergies Allergy/AdvReac Type Severity Reaction Status Date / Time Fish Containing Products Allergy Anaphylaxis Verified 02/05/23 11:25 Iodinated Contrast Media Allergy Anaphylaxis Verified 02/05/23 11:25 [Iodinated Contrast Media - IV Dye] Sulfa (Sulfonamide Allergy Anaphylaxis Verified 02/05/23 11:25 Antibiotics) sulfamethoxazole Allergy Anaphylaxis Verified 02/05/23 11:25 [From Septra] tree nut [Nut] Allergy Anaphylaxis Verified 02/05/23 11:25 trimethoprim [From Junra] Allergy Anaphylaxis Verified 02/05/23 11:25 Review of Systems ROS Statement: Those systems with pertinent positive or pertinent negative responses have been documented in the HPI. ROS Other: All systems not noted in ROS Statement are negative. 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 Last Myocardial Infarction Date:: Pt thinks 2015 History of Any Multi-Drug Resistant Organisms: None Reported Past Surgical History: Section, Cholecystectomy, Heart Catheterization With Stent, Hysterectomy, Tubal Ligation, Uterine Ablation Additional Past Surgical History / Comment(s): vein stripping right leg, radio frequency ablation of right back-02/22/2015, four stents on 04/03/16 and one on march 05, ovaries removed, colonscopy- polyp removal Past Anesthesia/Blood Transfusion Reactions: Motion Sickness Additional Past Anesthesia/Blood Transfusion Reaction / Comment(s): mild claustrophobia Date of Last Stent Placement:: 04/03/16 Past Psychological History: Anxiety, Depression Smoking Status: Current every day smoker Past Alcohol Use History: None Reported Past Drug Use History: None Reported - Past Family History Father Family Medical History: Congestive Heart Failure (CHF), Coronary Artery Disease (CAD), Diabetes Mellitus Mother Family Medical History: Cancer, COPD, Hypertension, Respiratory Disorder Additional Family Medical History / Comment(s): emphysema, colon CA General Exam Limitations: no limitations General appearance: alert, in no apparent distress Head exam: Present: atraumatic, normocephalic Eye exam: Present: normal appearance, PERRL, EOMI ENT exam: Present: mucous membranes moist Neck exam: Absent: tenderness, meningismus Respiratory exam: Present: normal lung sounds bilaterally. Absent: respiratory distress, wheezes, rales, rhonchi, stridor Cardiovascular Exam: Present: regular rate, normal rhythm, normal heart sounds, other (Normal radial pulses bilaterally) GI/Abdominal exam: Present: soft. Absent: distended, tenderness, guarding Extremities exam: Absent: tenderness, pedal edema, calf tenderness Back exam: Absent: tenderness Neurological exam: Present: alert, oriented X3, other (Decreased sensation to light touch along right-sided face, right upper extremity and right lower extremity-> this is chronic per patient; 2/5 strength in right upper extremity-> this is chronic per patient; 5/5 strength in all other extremities; sensation and cranial nerves are otherwise intact) Psychiatric exam: Present: normal affect, normal mood Skin exam: Present: warm, dry, intact, normal color Course Vital Signs 03/23/23 15:44 Temperature 97.8 F Pulse Rate 67 Respiratory 18 Rate Blood Pressure 204/94 O2 Sat by Pulse 97 Oximetry - Reevaluation(s) Reevaluation #1: 03/23/23 17:31 Patient continues to state that she is back to her baseline, and she denies development of any new symptoms while in the ED. Patient's neurological exam is unchanged. Patient's blood pressure reading has now improved. Patient and are aware the patient's test results, and patient feels comfortable being discharged home with her at this time. Patient was counseled about paresthesias, and she was clearly explained return and follow-up instructions. Patient was instructed to follow up closely with her primary care provider. Patient feels comfortable with this plan. EKG Findings - EKG Comments: EKG Findings:: ED physician interpretation (interpreted by me): Normal sinus rhythm, ventricular rate of 66 bpm, right bundle branch block, left anterior fascicular block, normal PA interval, QRS duration of 173 ms, normal QT interval, normal axis, no significant change when compared to 02/05/2023 EKG Medical Decision Making - Medical Decision Making Was pt. sent in by a medical professional or institution (, [facility]NIS, RN TRANSITIONAL CARE, urgent care, hospital, or shelter...) When possible be specific @ -No Did you speak to anyone other than the patient for history (EMS, parent, family, police, friend...)? What history was obtained from this source @ -No Did you review nursing and triage notes (agree or disagree)? Why? @ -I reviewed and agree with nursing and triage notes Were old charts reviewed (outside hosp., previous admission, EMS record, old EKG, old radiological studies, urgent care reports/EKG's, shelter records)? Report findings @ -No old charts were reviewed Differential Diagnosis (chest pain, altered mental status, abdominal pain women, abdominal pain men, vaginal bleeding, weakness, fever, dyspnea, syncope, headache, dizziness, GI bleed, back pain, seizure, CVA, palpatations, mental health, musculoskeletal)? @ -Paresthesias, multiple sclerosis, CVA, TIA, intracranial hemorrhage, intracranial mass, electrolyte abnormality, neurological disease, hypertension, medication reaction, hyperglycemia, hypoglycemia EKG interpreted by me (3pts min.). @ -As above X-rays interpreted by me (1pt min.). @ -Chest x-ray was reviewed myself and shows no acute abnormality. I agree with the radiologist's interpretation as above. CT interpreted by me (1pt min.). @ -Noncontrast head CT was reviewed myself and shows no acute abnormality. I a gree with the radiologist's interpretation as above. U/S interpreted by me (1pt. min.). @ -None done What testing was considered but not performed or refused? (CT, X-rays, U/S, labs)? Why? @ -None What meds were considered but not given or refused? Why? @ -None Did you discuss the management of the patient with other professionals (professionals i.e. DENNIS Mayo, RN TRANSITIONAL CARE, lab, RT, psych nurse, director of social media marketing, boom tender, teacher, aerospace engineer officer armament, mental health case manager)? Give summary @ -No Was smoking cessation discussed for >3mins.? @ -No Was critical care preformed (if so, how long)? @ -No Were there social determinants of health that impacted care today? How? (Homeles sness, low income, unemployed, alcoholism, drug addiction, transportation, low edu. Level, literacy, decrease access to med. care, prison, rehab)? @ -No Was there de-escalation of care discussed even if they declined (Discuss DNR or withdrawal of care, Hospice)? DNR status @ -No What co-morbidities impacted this encounter? (DM, HTN, Smoking, COPD, CAD, Cancer, CVA, ARF, Chemo, Hep., AIDS, mental health diagnosis, sleep apnea, morbid obesity)? @ -Multiple sclerosis, history of CVA Was patient admitted / discharged? Hospital course, mention meds given and route, prescriptions, significant lab abnormalities, going to OR and other pertinent info. @ -Patient reports having waxing and waning right-sided paresthesias since suffering a stroke in 2014. Patient reports that her paresthesias are currently back to baseline. Patient's ED workup is fairly unremarkable, including a negative noncontrast head CT and fairly unremarkable labs. Patient and are aware the patient's test results, and patient feels comfortable being discharged home at this time. Patient was instructed to follow up closely with her primary care provider. Patient feels comfortable with this plan. Undiagnosed new problem with uncertain prognosis? @ -No Drug Therapy requiring intensive monitoring for toxicity (Heparin, Nitro, Insulin, Cardizem)? @ -No Were any procedures done? @ -No Diagnosis/symptom? @ -Right-sided paresthesias Acute, or Chronic, or Acute on Chronic? @ -Chronic Uncomplicated (without systemic symptoms) or Complicated (systemic symptoms)? @ -default Side effects of treatment? @ -No Exacerbation, Progression, or Severe Exacerbation? @ -default Poses a threat to life or bodily function? How? (Chest pain, USA, GA, pneumonia, PE, COPD, DKA, ARF, appy, cholecystitis, CVA, Diverticulitis, Homicidal, Suicidal, threat to staff... and all critical care pts) @ -No - Lab Data Result diagrams: 03/23/23 16:13 03/23/23 16:13 Lab Results 03/23/23 03/23/23 03/23/23 Range/Units 16:13 16:13 16:13 WBC 8.4 (3.8-10.6) k/uL RBC 5.13 (3.80-5.40) m/uL Hgb 15.1 (11.4-16.0) gm/dL Hct 46.5 H (34.0-46.0) % MCV 90.6 (80.0-100.0) fL MCH 29.4 (25.0-35.0) pg MCHC 32.5 (31.0-37.0) g/dL RDW 16.1 H (11.5-15.5) % Plt Count 240 (150-450) k/uL MPV 9.9 Neutrophils % 61 % Lymphocytes % 29 % Monocytes % 5 % Eosinophils % 2 % Basophils % 1 % Neutrophils # 5.1 (1.3-7.7) k/uL Lymphocytes # 2.5 (1.0-4.8) k/uL Monocytes # 0.4 (0-1.0) k/uL Eosinophils # 0.2 (0-0.7) k/uL Basophils # 0.0 (0-0.2) k/uL Anisocytosis Slight PT 10.6 (9.0-12.0) sec INR 1.0 (<1.2) APTT 27.9 (22.0-30.0) sec Sodium (137-145) mmol/L Potassium (3.5-5.1) mmol/L Chloride (98-107) mmol/L Carbon Dioxide (22-30) mmol/L Anion Gap mmol/L BUN (7-17) mg/dL Creatinine (0.52-1.04) mg/dL Est GFR (CKD-EPI)AfAm (>60 ml/min/1.73 sqM) Est GFR (CKD-EPI)NonAf (>60 ml/min/1.73 sqM) Glucose (74-99) mg/dL Calcium (8.4-10.2) mg/dL Total Bilirubin (0.2-1.3) mg/dL AST (14-36) U/L ALT (4-34) U/L Alkaline Phosphatase (38-126) U/L Creatine Kinase (30-135) U/L Troponin I (0.000-0.034) ng/mL Total Protein (6.3-8.2) g/dL Albumin (3.5-5.0) g/dL Urine Opiates Screen Not Detected (NotDetected) Ur Oxycodone Screen Not Detected (NotDetected) Urine Methadone Screen Not Detected (NotDetected) Ur Propoxyphene Screen Not Detected (NotDetected) Ur Barbiturates Screen Not Detected (NotDetected) U Tricyclic Antidepress Not Detected (NotDetected) Ur Phencyclidine Scrn Not Detected (NotDetected) Ur Amphetamines Screen Not Detected (NotDetected) U Methamphetamines Scrn Not Detected (NotDetected) U Benzodiazepines Scrn Not Detected (NotDetected) Urine Cocaine Screen Not Detected (NotDetected) U Marijuana (THC) Screen Not Detected (NotDetected) Serum Alcohol mg/dL 03/23/23 03/23/23 Range/Units 16:13 16:13 WBC (3.8-10.6) k/uL RBC (3.80-5.40) m/uL Hgb (11.4-16.0) gm/dL Hct (34.0-46.0) % MCV (80.0-100.0) fL MCH (25.0-35.0) pg MCHC (31.0-37.0) g/dL RDW (11.5-15.5) % Plt Count (150-450) k/uL MPV Neutrophils % % Lymphocytes % % Monocytes % % Eosinophils % % Basophils % % Neutrophils # (1.3-7.7) k/uL Lymphocytes # (1.0-4.8) k/uL Monocytes # (0-1.0) k/uL Eosinophils # (0-0.7) k/uL Basophils # (0-0.2) k/uL Anisocytosis PT (9.0-12.0) sec INR (<1.2) APTT (22.0-30.0) sec Sodium 138 (137-145) mmol/L Potassium 3.9 (3.5-5.1) mmol/L Chloride 105 (98-107) mmol/L Carbon Dioxide 27 (22-30) mmol/L Anion Gap 6 mmol/L BUN 32 H (7-17) mg/dL Creatinine 1.62 H (0.52-1.04) mg/dL Est GFR (CKD-EPI)AfAm 42 (>60 ml/min/1.73 sqM) Est GFR (CKD-EPI)NonAf 37 (>60 ml/min/1.73 sqM) Glucose 175 H (74-99) mg/dL Calcium 10.4 H (8.4-10.2) mg/dL Total Bilirubin 0.2 (0.2-1.3) mg/dL AST 26 (14-36) U/L ALT 26 (4-34) U/L Alkaline Phosphatase 108 (38-126) U/L Creatine Kinase 236 H (30-135) U/L Troponin I 0.020 (0.000-0.034) ng/mL Total Protein 5.8 L (6.3-8.2) g/dL Albumin 3.5 (3.5-5.0) g/dL Urine Opiates Screen (NotDetected) Ur Oxycodone Screen (NotDetected) Urine Methadone Screen (NotDetected) Ur Propoxyphene Screen (NotDetected) Ur Barbiturates Screen (NotDetected) U Tricyclic Antidepress (NotDetected) Ur Phencyclidine Scrn (NotDetected) Ur Amphetamines Screen (NotDetected) U Methamphetamines Scrn (NotDetected) U Benzodiazepines Scrn (NotDetected) Urine Cocaine Screen (NotDetected) U Marijuana (THC) Screen (NotDetected) Serum Alcohol <10 mg/dL - Radiology Data Chest x-ray: No acute cardiopulmonary disease/process. Noncontrast head CT: 1. No acute intracranial process or significant change from prior. 2. Remote lacunar injury in the left internal capsule, along with nonspecific white matter changes likely secondary to chronic microangiopathy. Disposition Clinical Impression: Paresthesias Disposition: HOME SELF-CARE Condition: Stable Instructions (If sedation given, give patient instructions): Paresthesia (ED) Additional Instructions: Return to the ER immediately should he develop new or worsening numbness/tingling, a new area of weakness, any significant pain, a severe hea dache, chest pain, visual changes, speech difficulty, a fever, shortness of breath, feeling dizzy or faint, or new or worsening symptoms. Follow up closely with your primary care provider. Is patient prescribed a controlled substance at d/c from ED?: No Referrals: Dagmar Hennessy MD [Primary Care Provider] - 1-2 days Time of Disposition: 17:36
[2023-03-23 16:31] LABS: Anisocytosis Slight; Basophils % (A) 1 %; Eosinophils # (A) 0.2 k/uL (0-0.7); Eosinophils % (A) 2 %; HCT 46.5 % (34.0-46.0); HGB 15.1 gm/dL (11.4-16.0); Lymphocytes # (A) 2.5 k/uL (1.0-4.8); Lymphocytes % (A) 29 %; MCH 29.4 pg (25.0-35.0); MCHC 32.5 g/dL (31.0-37.0); MCV 90.6 fL (80.0-100.0); Mean Platelet Volume 9.9; Monocytes # (A) 0.4 k/uL (0-1.0); Monocytes % (A) 5 %; Neutrophils # (A) 5.1 k/uL (1.3-7.7); Neutrophils % (A) 61 %; Platelet Count 240 k/uL (150-450); RBC 5.13 m/uL (3.80-5.40); RDW 16.1 % (11.5-15.5); WBC 8.4 k/uL (3.8-10.6)
[2023-03-23 16:37] LABS: Partial Thromboplastin Time 27.9 sec (22.0-30.0); Prothrombin Time 10.6 sec (9.0-12.0)
[2023-03-23 16:42] LABS: ALT 26 U/L (4-34); AST 26 U/L (14-36); African American GFR (CKD) 42 (>60 ml/min/1.73 sqM); Albumin 3.5 g/dL (3.5-5.0); Alcohol <10 mg/dL; Alkaline Phosphatase 108 U/L (38-126); Anion Gap 6 mmol/L; Blood Urea Nitrogen 32 mg/dL (7-17); Calcium 10.4 mg/dL (8.4-10.2); Carbon Dioxide 27 mmol/L (22-30); Chloride 105 mmol/L (98-107); Creatine Kinase 236 U/L (30-135); Glucose 175 mg/dL (74-99); Non-African American GFR(CKD) 37 (>60 ml/min/1.73 sqM); Potassium 3.9 mmol/L (3.5-5.1); Sodium 138 mmol/L (137-145); Total Bilirubin 0.2 mg/dL (0.2-1.3); Total Protein 5.8 g/dL (6.3-8.2)
[2023-03-23 16:45] LABS: Amphetamine Screen,Urine Not Detected (NotDetected); Barbiturate Screen,Urine Not Detected (NotDetected); Benzodiazepines Screen,Urine Not Detected (NotDetected); Cocaine Screen,Urine Not Detected (NotDetected); Methadone Screen, Urine Not Detected (NotDetected); Opiate Screen,Urine Not Detected (NotDetected); Oxycodone Screen, Urine Not Detected (NotDetected); Phencyclidine Screen,Urine Not Detected (NotDetected); Tricyclic Antidepressant,Urine Not Detected (NotDetected); Urn Cannabinoid Scrn Not Detected (NotDetected)
--- NOTE | 2023-03-23 17:06 | XR ---
EXAMINATION TYPE: XR chest 1V portable DATE OF EXAM: 03/23/2023 4:36 PM COMPARISON: Chest radiographs from 01/29/2023 TECHNIQUE: XR chest 1V portable Frontal view of the chest. CLINICAL INDICATION:Female, 52 years old with history of altered mental status; FINDINGS: Lungs/Pleura: There is no evidence of pleural effusion, focal consolidation, or pneumothorax. Pulmonary vascularity: Unremarkable. Heart/mediastinum: Cardiomediastinal silhouette is unremarkable. Musculoskeletal: No acute osseous pathology. IMPRESSION: No acute cardiopulmonary disease/process.
--- NOTE | 2023-03-23 17:07 | CT ---
EXAMINATION TYPE: CT brain wo con CT DLP: 1221.6 mGycm, Automated exposure control for dose reduction was used. DATE OF EXAM: 03/23/2023 4:33 PM COMPARISON: CT brain 02/05/2023. CLINICAL INDICATION:Female, 52 years old with history of Neuro deficit, acute, stroke suspected, Neur o deficit, acute, stroke suspected. Rt side facial tingling. Hx of strokes x4. TECHNIQUE: Brain: Axial CT images of the brain were obtained with coronal and sagittal reformats created and rev iewed. Contrast used: None. Oral contrast used: None. FINDINGS: Brain: Extra-axial spaces: No abnormal extra-axial fluid collections. Ventricular system: Within normal limits Cerebral parenchyma: Cerebral atrophy. No acute intraparenchymal hemorrhage or mass effect. The cortez -white junction is well differentiated. Scattered hypoattenuating areas are seen within the white mat ter. Remote lacunar injury of the left internal capsule. Cerebellum: Unremarkable. Mass effect: No evidence of midline shift. Intracranial vasculature: Atherosclerotic calcifications of the intracranial vessels. Soft tissues: Normal. Calvarium/osseous structures: No depressed skull fracture. Paranasal sinuses and mastoid air cells: Clear. Mastoid air cells are Clear Visualized orbits: Orbital contents are intact. IMPRESSION: 1. No acute intracranial process or significant change from prior. 2. Remote lacunar injury in the left internal capsule, along with nonspecific white matter changes li carmen secondary to chronic microangiopathy.
[2023-03-23 18:09] VITALS: BP 168/106; PULSE 74
== END 2023-03-23 18:09 | disposition home or self-care (01) ==
LOC: EC 15:43
DX: R20.2 Paresthesia of skin (principal); I25.10 Atherosclerotic heart disease of native coronary artery without angina pectoris; E11.9 Type 2 diabetes mellitus without complications; K21.9 Gastro-esophageal reflux disease without esophagitis; E78.5 Hyperlipidemia, unspecified; I10 Essential (primary) hypertension; I25.2 Old myocardial infarction; G47.30 Sleep apnea, unspecified; F41.9 Anxiety disorder, unspecified; F32.A Depression, unspecified; F17.200 Nicotine dependence, unspecified, uncomplicated; Z86.73 Personal history of transient ischemic attack (TIA), and cerebral infarction without residual deficits; Z79.82 Long term (current) use of aspirin; Z79.84 Long term (current) use of oral hypoglycemic drugs; Z79.4 Long term (current) use of insulin; Z79.899 Other long term (current) drug therapy; Z88.1 Allergy status to other antibiotic agents; Z91.014 Allergy to mammalian meats; Z88.2 Allergy status to sulfonamides; Z91.010 Allergy to peanuts; Z91.013 Allergy to seafood
CPT/HCPCS: 36415; 80053; 82550; 84484; 85025; 85610; 85730; 80306; 71045; 70450; 99284; G0480; 80320

== ENCOUNTER 2023-05-13 15:17 | Emergency (ER) | payer OTHER ==
[2023-05-13 15:39] VITALS: TEMP 98.7
[2023-05-13] MEDS ORDERED: LIDOCAINE 5% PATCH TOPICAL STA (16:40)
[2023-05-13] MEDS ORDERED: MORPHINE SULFATE 2 MG/ML SYRINGE IM STA (16:42)
--- NOTE | 2023-05-13 17:15 | XR ---
EXAMINATION TYPE: XR lumbosacral spine min 4V DATE OF EXAM: 05/13/2023 4:58 PM INDICATION: Patient age:Female; 52 years old; Reason for study: pain; COMPARISON: 03/29/2015 TECHNIQUE: Frontal, lateral , bilateral oblique and coned in L5-S1 lateral views of the spine. FINDINGS: No evidence of any acute osseous pathology. No evidence of loss of vertebral body height i s seen. There is normal alignment of the lumbar vertebral bodies. Mild scattered disc space narrowing . Multilevel marginal osteophyte formation throughout the visualized spine. There is facet joint arth ropathy throughout the spine. Scattered at least mild neural foraminal stenosis worse at L5-S1. Ather osclerosis of the arterial vasculature. Right upper quadrant cholecystectomy clips. IMPRESSION: 1. No acute fracture. 2. Mild multilevel disc degeneration.
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
[2023-05-13 17:47] VITALS: BP 192/79; PULSE 75; RESP 18
== END 2023-05-13 17:47 | disposition home or self-care (01) ==
LOC: EC 15:17
DX: S39.012A Strain of muscle, fascia and tendon of lower back, initial encounter (principal); I10 Essential (primary) hypertension; E11.9 Type 2 diabetes mellitus without complications; K21.9 Gastro-esophageal reflux disease without esophagitis; E78.5 Hyperlipidemia, unspecified; I25.2 Old myocardial infarction; G47.30 Sleep apnea, unspecified; F41.9 Anxiety disorder, unspecified; F32.A Depression, unspecified; F17.200 Nicotine dependence, unspecified, uncomplicated; Z79.82 Long term (current) use of aspirin; Z79.4 Long term (current) use of insulin; Z79.899 Other long term (current) drug therapy; Z91.013 Allergy to seafood; Z91.018 Allergy to other foods; Z88.2 Allergy status to sulfonamides; Z88.8 Allergy status to other drugs, medicaments and biological substances; X58.XXXA Exposure to other specified factors, initial encounter
CPT/HCPCS: 72110; 99283; 96372; J2270

== ENCOUNTER → 2023-06-05 | Outpatient (CLI) | payer OTHER ==
--- NOTE | 2023-06-05 13:31 | XR ---
EXAMINATION TYPE: XR sacrum coccyx DATE OF EXAM: 06/05/2023 CLINICAL HISTORY: pain TECHNIQUE: Three views of the sacrum and coccyx are submitted. COMPARISON: None Sacral alae appear symmetric. No evidence for fracture or bony lesion. Sacroiliac joints are within normal limits. Visualized coccygeal segments are free of fracture or lesion. IMPRESSION: Normal study
== END | disposition home or self-care (01) ==
LOC: RADXRMAIN 11:11
PROVIDERS: ATTEND Psychiatry & Neurology Pain Medicine
DX: M53.3 Sacrococcygeal disorders, not elsewhere classified (principal); Z91.81 History of falling
CPT/HCPCS: 72220

== ENCOUNTER 2023-08-19 11:14 | Emergency (ER) | payer OTHER ==
[2023-08-19] MEDS ORDERED: BARIUM SULFATE 450 ML ORAL.SUSP BOTTLE PO PRN (13:11)
[2023-08-19] MEDS ORDERED: ONDANSETRON 4 MG/2 ML VIAL IVP STA (13:11)
[2023-08-19] MEDS ORDERED: HYDROmorphone 1 MG/ML 1 ML SYRINGE IVP STA (13:12)
[2023-08-19] MEDS ORDERED: SODIUM CHLORIDE 0.9% 500 ML 500 ML IV ONE (13:12)
--- NOTE | 2023-08-19 13:17 | ED ---
General Adult HPI - General Chief complaint: Abdominal Pain Stated complaint: referal - ruptured hernia Time Seen by Provider: 08/19/23 13:03 Source: patient, RN notes reviewed, old records reviewed Mode of arrival: ambulatory Limitations: no limitations - History of Present Illness Initial comments: 53-year-old female presenting for evaluation of epigastric abdominal pain. Pain is worse with eating. She does have associated vomiting also after eating. She states she was evaluated by her primary care physician who stated that this may be related to her hiatal hernia. She was sent to the emergency department for evaluation. She reports subjective fever and chills. Pain is almost entirely epigastric. No chest pain. Pain has been present for the past one week - Related Data Home Medications Medication Instructions Recorded Confirmed Magnesium Gluconate [Magonate] 500 mg PO HS 03/27/17 07/17/23 Aspirin [Adult Low Dose Aspirin EC] 81 mg PO HS 11/26/17 07/17/23 DULoxetine HCL [Cymbalta] 60 mg PO DAILY 08/25/18 07/17/23 Isosorbide Mononitrate ER [Imdur] 60 mg PO DAILY 09/08/18 07/17/23 ARIPiprazole [Abilify] 2 mg PO DAILY 11/08/20 07/17/23 Albuterol Nebulized [Ventolin 2.5 mg INHALATION RT-QID PRN 10/06/22 07/17/23 Nebulized] Empagliflozin [Jardiance] 10 mg PO DAILY 10/06/22 07/17/23 Famotidine 20 mg PO DAILY 10/06/22 07/17/23 Nitroglycerin Sl Tabs [Nitrostat] 0.4 mg SL Q5M PRN 10/06/22 07/17/23 Pioglitazone [Actos] 15 mg PO DAILY 10/06/22 07/17/23 Fenofibrate [Lofibra] 160 mg PO DAILY 01/25/23 07/17/23 HYDROcodone/APAP 7.5-325MG [[place] 1 tab PO HS 01/25/23 07/17/23 7.5-325] Multivit-Min/Folic Acid/[id number] 1 tab PO BID 01/25/23 07/17/23 [Alive Premium Adult Multivit] Rimegepant Sulfate [Nurtec Odt] 75 mg PO DAILY PRN 01/25/23 07/17/23 hydrALAZINE HCL [Apresoline] 25 mg PO DAILY 01/25/23 07/17/23 lamoTRIgine [LaMICtal Xr] 250 mg PO DAILY 01/25/23 07/17/23 ALPRAZolam [Xanax] 2 mg PO HS PRN 02/05/23 07/17/23 Pregabalin [Lyrica] 150 mg PO BID 02/05/23 07/17/23 carvediloL [Coreg] 25 mg PO BID 02/05/23 07/17/23 Atorvastatin [Lipitor] 20 mg PO HS 07/17/23 07/17/23 Budesonide/Formoterol Fumarate 2 puff INHALATION RT-BID 07/17/23 07/17/23 [Symbicort 160-4.5 Mcg Inhaler] Furosemide [Lasix] 20 mg PO DAILY 07/17/23 07/17/23 HYDROcodone/APAP 7.5-325MG [[place] 1 tab PO TID PRN 07/17/23 07/17/23 7.5-325] INSULIN LISPRO (For Pump) [humaLOG 0.01 units SQ-PUMP CONTINUOUS 07/17/23 07/17/23 (For Pump)] Promethazine/Dextromethorphan 5 ml PO Q6H PRN 07/17/23 07/17/23 [Promethazine-Dm 6.25-15 mg/5Ml] cloNIDine 0.1 MG/24HR PATCH 0.1 mg TRANSDERM Q7D 07/17/23 07/17/23 [Catapres-TTS] predniSONE [Deltasone] 20 mg PO BID 07/17/23 07/17/23 Previous Rx's Medication Instructions Recorded Ferrous Sulfate [Iron (65 MG 325 mg PO DAILY 30 Days #30 tab 10/08/22 Elemental)] Lacosamide [Vimpat] 50 mg PO BID 28 Days #14 tab 10/18/22 Lidocaine 5% Patch [Lidoderm 5% 1 patch TOPICAL DAILY #30 patch 05/13/23 Patch] cefUROXime axetiL [Cefuroxime] 500 mg PO BID 7 Days #14 tab 07/18/23 Allergies Allergy/AdvReac Type Severity Reaction Status Date / Time Fish Containing Products Allergy Anaphylaxis Verified 08/19/23 11:41 Iodinated Contrast Media Allergy Anaphylaxis Verified 08/19/23 11:41 [Iodinated Contrast Media - IV Dye] Sulfa (Sulfonamide Allergy Anaphylaxis Verified 08/19/23 11:41 Antibiotics) sulfamethoxazole Allergy Anaphylaxis Verified 08/19/23 11:41 [From Septra] tree nut [Nut] Allergy Anaphylaxis Verified 08/19/23 11:41 trimethoprim [From Septra] Allergy Anaphylaxis Verified 08/19/23 11:41 Review of Systems ROS Statement: Those systems with pertinent positive or pertinent negative responses have been documented in the HPI. ROS Other: All systems not noted in ROS Statement are negative. 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 Last Myocardial Infarction Date:: Pt thinks 2015 History of Any Multi-Drug Resistant Organisms: None Reported Past Surgical History: Section, Cholecystectomy, Heart Catheterization With Stent, Hysterectomy, Tubal Ligation, Uterine Ablation Additional Past Surgical History / Comment(s): vein stripping right leg, radio frequency ablation of right back-02/22/2015, four stents on 04/03/16 and one on march 05, ovaries removed, colonscopy- polyp removal Past Anesthesia/Blood Transfusion Reactions: Motion Sickness Additional Past Anesthesia/Blood Transfusion Reaction / Comment(s): mild claustrophobia Date of Last Stent Placement:: 04/03/16 Past Psychological History: Anxiety, Depression Smoking Status: Current every day smoker Past Alcohol Use History: None Reported Past Drug Use History: None Reported - Past Family History Father Family Medical History: Congestive Heart Failure (CHF), Coronary Artery Disease (CAD), Diabetes Mellitus Mother Family Medical History: Cancer, COPD, Hypertension, Respiratory Disorder Additional Family Medical History / Comment(s): emphysema, colon CA General Exam Limitations: no limitations General appearance: alert, in no apparent distress Head exam: Present: atraumatic, normocephalic Eye exam: Present: normal appearance, PERRL ENT exam: Present: normal exam Neck exam: Present: normal inspection Respiratory exam: Present: normal lung sounds bilaterally. Absent: respiratory distress, wheezes Cardiovascular Exam: Present: regular rate, normal rhythm GI/Abdominal exam: Present: distended, tenderness (Epigastric). Absent: guarding, rebound Extremities exam: Present: normal inspection Neurological exam: Present: alert, oriented X3, CN II-XII intact. Absent: motor sensory deficit Psychiatric exam: Present: normal affect, normal mood Skin exam: Present: warm, dry. Absent: cyanosis, diaphoretic Course Vital Signs 08/19/23 08/19/23 11:39 14:25 Temperature 98.4 F Pulse Rate 75 65 Respiratory 20 18 Rate Blood Pressure 204/75 173/72 O2 Sat by Pulse 96 92 L Oximetry - Reevaluation(s) Reevaluation #1: 08/19/23 15:50 I did offer admission for IV hydration, symptom control. Patient declines. States she feels better and prefers to be discharged. Medical Decision Making - Medical Decision Making Was pt. sent in by a medical professional or institution (, PA, BEVEL MILL OPERATOR, urgent care, hospital, or fdc...) When possible be specific @ -No Did you speak to anyone other than the patient for history (EMS, parent, family, police, friend...)? What history was obtained from this source @ -No Did you review nursing and triage notes (agree or disagree)? Why? @ -I reviewed and agree with nursing and triage notes Were old charts reviewed (outside hosp., previous admission, EMS record, old EKG, old radiological studies, urgent care reports/EKG's, fdc records)? Report findings @ -No old charts were reviewed Differential Diagnosis (chest pain, altered mental status, abdominal pain women, abdominal pain men, vaginal bleeding, weakness, fever, dyspnea, syncope, headache, dizziness, GI bleed, back pain, seizure, CVA, palpatations, mental health, musculoskeletal)? @ Differential Abdominal Pain Women: Appendicitis, Cholecystitis, diverticulosis, ischemic bowel, pancreatitis, hepatitis, UTI, gastroenteritis, AAA, incarcerated hernia, bowel obstruction, constipation, inflammatory bowel, hepatitis, peptic ulcer disease, splenic infarction, perforated viscus, vulvitis, ovarian torsion, PID, kidney stone, placenta abruption, this is not meant to be an all-inclusive list EKG interpreted by me (3pts min.). @ -As above X-rays interpreted by me (1pt min.). @ -None done CT interpreted by me (1pt min.). @ -CT of the abdomen pelvis, negative for acute intra-abdominal pathology. U/S interpreted by me (1pt. min.). @ -None done What testing was considered but not performed or refused? (CT, X-rays, U/S, labs)? Why? @ -None What meds were considered but not given or refused? Why? @ -None Did you discuss the management of the patient with other professionals (professionals i.e. , PA, BEVEL MILL OPERATOR, lab, RT, psych nurse, rn social work, boiler riveter, teacher, neighborhood conservation officer, telephonic nurse case manager)? Give summary @ -No Was smoking cessation discussed for >3mins.? @ -No Was critical care preformed (if so, how long)? @ -No Were there social determinants of health that impacted care today? How? (Homelessness, low income, unemployed, alcoholism, drug addiction, transportation, low edu. Level, literacy, decrease access to med. care, retirement, rehab)? @ -No Was there de-escalation of care discussed even if they declined (Discuss DNR or withdrawal of care, Hospice)? DNR status @ -No What co-morbidities impacted this encounter? (DM, HTN, Smoking, COPD, CAD, Cancer, CVA, ARF, Chemo, Hep., AIDS, mental health diagnosis, sleep apnea, morbid obesity)? @ -Hiatal hernia, chronic abdominal pain. Was patient admitted / discharged? Hospital course, mention meds given and route, prescriptions, significant lab abnormalities, going to OR and other pertinent info. @ 53-year-old female presented for epigastric abdominal pain. Symptoms by primary care physician. Workup reveals normal CBC without leukocytosis, no anemia. She has a mild hyponatremia, mild acute kidney injury at 2.29. Normal urinalysis. CT is negative for acute intra-abdominal pathology. I did offer observation for hydration and symptomatic control the patient declines. She states she will drink more fluids at home she will follow-up with her primary care provider per she states she has Spanaway at home for pain control. Undiagnosed new problem with uncertain prognosis? @ -No Drug Therapy requiring intensive monitoring for toxicity (Heparin, Nitro, Insuli n, Cardizem)? @ -No Were any procedures done? @ -No Diagnosis/symptom? @ -Abdominal pain Acute, or Chronic, or Acute on Chronic? @ -Acute Uncomplicated (without systemic symptoms) or Complicated (systemic symptoms)? @ -default Side effects of treatment? @ -No Exacerbation, Progression, or Severe Exacerbation? @ -No Poses a threat to life or bodily function? How? (Chest pain, USA, NE, pneumonia, PE, COPD, DKA, ARF, appy, cholecystitis, CVA, Diverticulitis, Homicidal, Suicidal, threat to staff... and all critical care pts) @ -[Low risk at this time - Lab Data Result diagrams: 08/19/23 13:15 08/19/23 13:15 Lab Results 08/19/23 08/19/23 08/19/23 Range/Units 13:15 13:15 13:15 WBC 9.7 (3.8-10.6) k/uL RBC 4.68 (3.80-5.40) m/uL Hgb 15.0 (11.4-16.0) gm/dL Hct 46.7 H (34.0-46.0) % MCV 99.9 (80.0-100.0) fL MCH 32.0 (25.0-35.0) pg MCHC 32.1 (31.0-37.0) g/dL RDW 13.7 (11.5-15.5) % Plt Count 209 (150-450) k/uL MPV 9.9 Neutrophils % 71 % Lymphocytes % 21 % Monocytes % 5 % Eosinophils % 2 % Basophils % 0 % Neutrophils # 6.8 (1.3-7.7) k/uL Lymphocytes # 2.0 (1.0-4.8) k/uL Monocytes # 0.5 (0-1.0) k/uL Eosinophils # 0.2 (0-0.7) k/uL Basophils # 0.0 (0-0.2) k/uL PT 11.3 (10.0-12.5) sec INR 1.0 (<1.2) APTT 26.7 (22.0-30.0) sec Sodium (137-145) mmol/L Potassium (3.5-5.1) mmol/L Chloride (98-107) mmol/L Carbon Dioxide (22-30) mmol/L Anion Gap mmol/L BUN (7-17) mg/dL Creatinine (0.52-1.04) mg/dL Est GFR (CKD-EPI)AfAm (>60 ml/min/1.73 sqM) Est GFR (CKD-EPI)NonAf (>60 ml/min/1.73 sqM) Glucose (74-99) mg/dL Plasma Lactic Acid Faheem (0.7-2.0) mmol/L Calcium (8.4-10.2) mg/dL Total Bilirubin (0.2-1.3) mg/dL AST (14-36) U/L ALT (4-34) U/L Alkaline Phosphatase (38-126) U/L Total Protein (6.3-8.2) g/dL Albumin (3.5-5.0) g/dL Amylase (30-110) U/L Lipase (23-300) U/L Urine Color Light Yellow Urine Appearance Clear (Clear) Urine pH 6.5 (5.0-8.0) Ur Specific Sedley 1.020 (1.001-1.035) Urine Protein 3+ (Negative) Urine Glucose (UA) 4+ (Negative) Urine Ketones Negative (Negative) Urine Blood Negative (Negative) Urine Nitrite Negative (Negative) Urine Bilirubin Negative (Negative) Urine Urobilinogen <2.0 (<2.0) mg/dL Ur Leukocyte Esterase Negative (Negative) Urine WBC 1 (0-5) /hpf 08/19/23 08/19/23 Range/Units 13:15 13:15 WBC (3.8-10.6) k/uL RBC (3.80-5.40) m/uL Hgb (11.4-16.0) gm/dL Hct (34.0-46.0) % MCV (80.0-100.0) fL MCH (25.0-35.0) pg MCHC (31.0-37.0) g/dL RDW (11.5-15.5) % Plt Count (150-450) k/uL MPV Neutrophils % % Lymphocytes % % Monocytes % % Eosinophils % % Basophils % % Neutrophils # (1.3-7.7) k/uL Lymphocytes # (1.0-4.8) k/uL Monocytes # (0-1.0) k/uL Eosinophils # (0-0.7) k/uL Basophils # (0-0.2) k/uL PT (10.0-12.5) sec INR (<1.2) APTT (22.0-30.0) sec Sodium 133 L (137-145) mmol/L Potassium 4.4 (3.5-5.1) mmol/L Chloride 102 (98-107) mmol/L Carbon Dioxide 24 (22-30) mmol/L Anion Gap 7 mmol/L BUN 35 H (7-17) mg/dL Creatinine 2.29 H (0.52-1.04) mg/dL Est GFR (CKD-EPI)AfAm 28 (>60 ml/min/1.73 sqM) Est GFR (CKD-EPI)NonAf 24 (>60 ml/min/1.73 sqM) Glucose 372 H (74-99) mg/dL Plasma Lactic Acid Faheem 1.3 (0.7-2.0) mmol/L Calcium 10.4 H (8.4-10.2) mg/dL Total Bilirubin 0.5 (0.2-1.3) mg/dL AST 20 (14-36) U/L ALT 20 (4-34) U/L Alkaline Phosphatase 126 (38-126) U/L Total Protein 5.8 L (6.3-8.2) g/dL Albumin 3.4 L (3.5-5.0) g/dL Amylase 36 (30-110) U/L Lipase 171 (23-300) U/L Urine Color Urine Appearance (Clear) Urine pH (5.0-8.0) Ur Specific [place] (1.001-1.035) Urine Protein (Negative) Urine Glucose (UA) (Negative) Urine Ketones (Negative) Urine Blood (Negative) Urine Nitrite (Negative) Urine Bilirubin (Negative) Urine Urobilinogen (<2.0) mg/dL Ur Leukocyte Esterase (Negative) Urine WBC (0-5) /hpf Disposition Clinical Impression: Abdominal pain Disposition: HOME SELF-CARE Condition: Fair Instructions (If sedation given, give patient instructions): Abdominal Pain (ED) Is patient prescribed a controlled substance at d/c from ED?: No Referrals: Dagmar Hennessy MD [Primary Care Provider] - 1-2 days Time of Disposition: 15:53
[2023-08-19 13:25] LABS: Basophils % (A) 0 %; Eosinophils # (A) 0.2 k/uL (0-0.7); Eosinophils % (A) 2 %; HCT 46.7 % (34.0-46.0); Lymphocytes % (A) 21 %; MCHC 32.1 g/dL (31.0-37.0); MCV 99.9 fL (80.0-100.0); Mean Platelet Volume 9.9; Monocytes # (A) 0.5 k/uL (0-1.0); Monocytes % (A) 5 %; Neutrophils # (A) 6.8 k/uL (1.3-7.7); Neutrophils % (A) 71 %; Platelet Count 209 k/uL (150-450); RBC 4.68 m/uL (3.80-5.40); RDW 13.7 % (11.5-15.5); WBC 9.7 k/uL (3.8-10.6)
[2023-08-19 13:35] LABS: ALT 20 U/L (4-34); AST 20 U/L (14-36); African American GFR (CKD) 28 (>60 ml/min/1.73 sqM); Albumin 3.4 g/dL (3.5-5.0); Alkaline Phosphatase 126 U/L (38-126); Amylase 36 U/L (30-110); Anion Gap 7 mmol/L; Blood Urea Nitrogen 35 mg/dL (7-17); Calcium 10.4 mg/dL (8.4-10.2); Carbon Dioxide 24 mmol/L (22-30); Chloride 102 mmol/L (98-107); Glucose 372 mg/dL (74-99); Lipase 171 U/L (23-300); Non-African American GFR(CKD) 24 (>60 ml/min/1.73 sqM); Potassium 4.4 mmol/L (3.5-5.1); Sodium 133 mmol/L (137-145); Total Bilirubin 0.5 mg/dL (0.2-1.3); Total Protein 5.8 g/dL (6.3-8.2)
[2023-08-19 13:36] LABS: Partial Thromboplastin Time 26.7 sec (22.0-30.0); Prothrombin Time 11.3 sec (10.0-12.5)
--- NOTE | 2023-08-19 14:09 | CT ---
EXAMINATION TYPE: CT abdomen pelvis wo con CT DLP: 1187.4 mGycm, Automated exposure control for dose reduction was used. DATE OF EXAM: 08/19/2023 1:28 PM COMPARISON: CT abdomen pelvis 03/10/2022 CLINICAL INDICATION:Female, 53 years old with history of abdominal pain; abd pain TECHNIQUE: Standard CT of the abdomen and pelvis following the administration of oral contrast. Cor onal and sagittal reformats were performed. FINDINGS: Evaluation is limited due to lack of intravenous contrast. LOWER CHEST: Visualized lung bases are clear. Arterial calcifications. ABDOMEN LIVER: Few scattered punctate calcified granulomas GALLBLADDER AND BILE DUCTS: The gallbladder is surgically absent. PANCREAS: Unremarkable. SPLEEN: Scattered calcified granulomas. ADRENAL GLANDS: Unremarkable. KIDNEYS AND URETERS: No evidence of hydronephrosis or renal calculus. Renal vascular calcifications b ilaterally. PELVIS BLADDER: Under distended, limiting evaluation. REPRODUCTIVE: The uterus is surgically absent. ABDOMEN & PELVIS STOMACH AND BOWEL: Limited evaluation of the stomach due to retained food/debris. Hyperdense material is identified in the stomach related to given contrast. No obvious hiatal hernia. No focal wall thic kening or surrounding inflammatory changes. The appendix is within normal limits. No evidence of viktor l obstruction. PERITONEUM: No evidence of pneumoperitoneum or free fluid. VASCULATURE: Moderate atherosclerotic calcifications are present throughout the abdominal aorta and i ts branches. No evidence of aortic aneurysm. MUSCULOSKELETAL: No acute osseous abnormalities. Mild disc degeneration changes are present throughou t the thoracolumbar spine. LYMPH NODES: No gross evidence for lymphadenopathy. SOFT TISSUE/ABDOMINAL WALL: Small fat filled umbilical hernia. IMPRESSION: 1. No acute abdominal/process. 2. Sequelae of prior granulomatous disease.
[2023-08-19 14:41] VITALS: PULSE 65
[2023-08-19 15:02] LABS: WBC,Urine 1 /hpf (0-5)
[2023-08-19 15:10] LABS: Appearance,Urine Clear (Clear); Bilirubin,Urine Negative (Negative); Color,Urine Light Yellow; Glucose,Urine (UA) 4+ (Negative); Ketones,Urine Negative (Negative); PH, Urine 6.5 (5.0-8.0); Protein,Urine 3+ (Negative)
[2023-08-19 15:11] LABS: Blood,Urine Negative (Negative); Leukocyte Esterase,Urine Negative (Negative); Nitrite,Urine Negative (Negative); Urobilinogen,Urine <2.0 mg/dL (<2.0)
[2023-08-19 16:39] VITALS: BP 172/80; RESP 76; TEMP 98.2
== END 2023-08-19 16:26 | disposition home or self-care (01) ==
LOC: EC 11:14
DX: R10.13 Epigastric pain (principal); E11.9 Type 2 diabetes mellitus without complications; I25.10 Atherosclerotic heart disease of native coronary artery without angina pectoris; I10 Essential (primary) hypertension; I25.2 Old myocardial infarction; K21.9 Gastro-esophageal reflux disease without esophagitis; E78.5 Hyperlipidemia, unspecified; F32.A Depression, unspecified; F41.9 Anxiety disorder, unspecified; F17.200 Nicotine dependence, unspecified, uncomplicated; Z86.73 Personal history of transient ischemic attack (TIA), and cerebral infarction without residual deficits; Z86.718 Personal history of other venous thrombosis and embolism; Z88.2 Allergy status to sulfonamides; Z88.8 Allergy status to other drugs, medicaments and biological substances; Z91.013 Allergy to seafood; Z91.041 Radiographic dye allergy status; Z79.82 Long term (current) use of aspirin; Z79.4 Long term (current) use of insulin; Z79.899 Other long term (current) drug therapy; Z79.51 Long term (current) use of inhaled steroids; Z79.84 Long term (current) use of oral hypoglycemic drugs; Z90.49 Acquired absence of other specified parts of digestive tract
CPT/HCPCS: 36415; 80053; 82150; 83605; 83690; 85025; 85610; 85730; 81001; 74176; 99284; 96374; 96375; J2405; J1170

== ENCOUNTER 2023-10-27 10:37 | Inpatient (IN) | payer OTHER ==
--- NOTE | 2023-10-27 10:55 | ED ---
General Adult HPI - General Chief complaint: Weakness Stated complaint: Weakness Time Seen by Provider: 10/27/23 10:45 Source: patient, EMS, RN notes reviewed, old records reviewed Mode of arrival: EMS Limitations: no limitations - History of Present Illness Initial comments: This is a 53-year-old female presents emergency Department complaining of gene ralized weakness and chest pain that radiates to her left arm. Patient also states she somewhat short of breath. Patient states she's had 5 stents in the past as well as diabetes and high blood pressure. Patient states she did take her medications. Patient states he continues currently. Patient denies any headache patient denies numbness weakness. Patient denies any abdominal pain patient denies nausea vomiting diarrhea. - Related Data Home Medications Medication Instructions Recorded Confirmed Magnesium Gluconate [Magonate] 500 mg PO HS 03/27/17 07/17/23 Aspirin [Adult Low Dose Aspirin EC] 81 mg PO HS 11/26/17 07/17/23 DULoxetine HCL [Cymbalta] 60 mg PO DAILY 08/25/18 07/17/23 Isosorbide Mononitrate ER [Imdur] 60 mg PO DAILY 09/08/18 07/17/23 ARIPiprazole [Abilify] 2 mg PO DAILY 11/08/20 07/17/23 Albuterol Nebulized [Ventolin 2.5 mg INHALATION RT-QID PRN 10/06/22 07/17/23 Nebulized] Empagliflozin [Jardiance] 10 mg PO DAILY 10/06/22 07/17/23 Famotidine 20 mg PO DAILY 10/06/22 07/17/23 Nitroglycerin Sl Tabs [Nitrostat] 0.4 mg SL Q5M PRN 10/06/22 07/17/23 Pioglitazone [Actos] 15 mg PO DAILY 10/06/22 07/17/23 Fenofibrate [Lofibra] 160 mg PO DAILY 01/25/23 07/17/23 HYDROcodone/APAP 7.5-325MG [Demotte 1 tab PO HS 01/25/23 07/17/23 7.5-325] Multivit-Min/Folic Acid/Ilg735 1 tab PO BID 01/25/23 07/17/23 [Alive Premium Adult Multivit] Rimegepant Sulfate [Nurtec Odt] 75 mg PO DAILY PRN 01/25/23 07/17/23 hydrALAZINE HCL [Apresoline] 25 mg PO DAILY 01/25/23 07/17/23 lamoTRIgine [LaMICtal Xr] 250 mg PO DAILY 01/25/23 07/17/23 ALPRAZolam [Xanax] 2 mg PO HS PRN 02/05/23 07/17/23 Pregabalin [Lyrica] 150 mg PO BID 02/05/23 07/17/23 carvediloL [Coreg] 25 mg PO BID 02/05/23 07/17/23 Atorvastatin [Lipitor] 20 mg PO HS 07/17/23 07/17/23 Budesonide/Formoterol Fumarate 2 puff INHALATION RT-BID 07/17/23 07/17/23 [Symbicort 160-4.5 Mcg Inhaler] Furosemide [Lasix] 20 mg PO DAILY 07/17/23 07/17/23 HYDROcodone/APAP 7.5-325MG [Demotte 1 tab PO TID PRN 07/17/23 07/17/23 7.5-325] INSULIN LISPRO (For Pump) [humaLOG 0.01 units SQ-PUMP CONTINUOUS 07/17/23 07/17/23 (For Pump)] Promethazine/Dextromethorphan 5 ml PO Q6H PRN 07/17/23 07/17/23 [Promethazine-Dm 6.25-15 mg/5Ml] cloNIDine 0.1 MG/24HR PATCH 0.1 mg TRANSDERM Q7D 07/17/23 07/17/23 [Catapres-TTS] predniSONE [Deltasone] 20 mg PO BID 07/17/23 07/17/23 Previous Rx's Medication Instructions Recorded Ferrous Sulfate [Iron (65 MG 325 mg PO DAILY 30 Days #30 tab 10/08/22 Elemental)] Lacosamide [Vimpat] 50 mg PO BID 28 Days #14 tab 10/18/22 Lidocaine 5% Patch [Lidoderm 5% 1 patch TOPICAL DAILY #30 patch 05/13/23 Patch] cefUROXime axetiL [Cefuroxime] 500 mg PO BID 7 Days #14 tab 07/18/23 Allergies Allergy/AdvReac Type Severity Reaction Status Date / Time Fish Containing Products Allergy Anaphylaxis Verified 10/27/23 10:41 Iodinated Contrast Media Allergy Anaphylaxis Verified 10/27/23 10:41 [Iodinated Contrast Media - IV Dye] Sulfa (Sulfonamide Allergy Anaphylaxis Verified 10/27/23 10:41 Antibiotics) sulfamethoxazole Allergy Anaphylaxis Verified 10/27/23 10:41 [From Septra] tree nut [Nut] Allergy Anaphylaxis Verified 10/27/23 10:41 trimethoprim [From Septra] Allergy Anaphylaxis Verified 10/27/23 10:41 Review of Systems ROS Statement: Those systems with pertinent positive or pertinent negative responses have been documented in the HPI. ROS Other: All systems not noted in ROS Statement are negative. 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 Last Myocardial Infarction Date:: Pt thinks 2015 History of Any Multi-Drug Resistant Organisms: None Reported Past Surgical History: Section, Cholecystectomy, Heart Catheterization With Stent, Hysterectomy, Tubal Ligation, Uterine Ablation Additional Past Surgical History / Comment(s): vein stripping right leg, radio frequency ablation of right back-02/22/2015, four stents on 04/03/16 and one on march 05, ovaries removed, colonscopy- polyp removal Past Anesthesia/Blood Transfusion Reactions: Motion Sickness Additional Past Anesthesia/Blood Transfusion Reaction / Comment(s): mild claustrophobia Date of Last Stent Placement:: 04/03/16 Past Psychological History: Anxiety, Depression Smoking Status: Current every day smoker Past Alcohol Use History: None Reported Past Drug Use History: None Reported - Past Family History Father Family Medical History: Congestive Heart Failure (CHF), Coronary Artery Disease (CAD), Diabetes Mellitus Mother Family Medical History: Cancer, COPD, Hypertension, Respiratory Disorder Additional Family Medical History / Comment(s): emphysema, colon CA General Exam - General Exam Comments Initial Comments: GENERAL: Patient is well-developed and well-nourished. Patient is nontoxic and well- hydrated and is in mild distress. ENT: Neck is soft and supple. No significant lymphadenopathy is noted. Oropharynx is clear. Moist mucous membranes. Neck has full range of motion without elicit ing any pain. EYES: The sclera were anicteric and conjunctiva were pink and moist. Extraocular m ovements were intact and pupils were equal round and reactive to light. Eyelids were unremarkable. PULMONARY: Unlabored respirations. Good breath sounds bilaterally. No audible rales rhonchi or wheezing was noted. CARDIOVASCULAR: There is a regular rate and rhythm without any murmurs gallops or rubs. ABDOMEN: Soft and nontender with normal bowel sounds. SKIN: Skin is clear with no lesions or rashes and otherwise unremarkable. NEUROLOGIC: Patient is alert and oriented x3. Cranial nerves II through XII are grossly intact. Motor and sensory are also intact. Normal speech, volume and content. Symmetrical smile. MUSCULOSKELETAL: Normal extremities with adequate strength and full range of motion. No lower extremity swelling or edema. No calf tenderness. LYMPHATICS: No significant lymphadenopathy is noted PSYCHIATRIC: Normal psychiatric evaluation. Limitations: no limitations Course Vital Signs 10/27/23 10/27/23 10/27/23 10:41 10:44 10:46 Temperature 98.3 F Pulse Rate 79 Respiratory 18 Rate Blood Pressure 213/89 213/89 218/105 O2 Sat by Pulse 96 96 Oximetry 10/27/23 10/27/23 11:00 12:00 Temperature Pulse Rate 74 75 Respiratory 18 18 Rate Blood Pressure 218/105 206/93 O2 Sat by Pulse 97 97 Oximetry Medical Decision Making - Medical Decision Making EKG is interpreted by myself. EKG shows a sinus rhythm at 76 bpm. Patient's AR interval is 156 QRS is 161 Q-T intervals 429 2 QTC is 461. Patient's EKG shows a right bundle branch block. I compared his EKG changes. Was pt. sent in by a medical professional or institution (, PA, MANUFACTURING COST ESTIMATOR, urgent care, hospital, or detention...) When possible be specific @ -No Did you speak to anyone other than the patient for history (EMS, parent, family, police, friend...)? What history was obtained from this source @ -No Did you review nursing and triage notes (agree or disagree)? Why? @ -I reviewed and agree with nursing and triage notes Were old charts reviewed (outside hosp., previous admission, EMS record, old EKG, old radiological studies, urgent care reports/EKG's, detention records)? Report findings @ -I reviewed prior lab work in prior charts on this patient Differential Diagnosis (chest pain, altered mental status, abdominal pain women, abdominal pain men, vaginal bleeding, weakness, fever, dyspnea, syncope, headache, dizziness, GI bleed, back pain, seizure, CVA, palpatations, mental health, musculoskeletal)? @ -Differential Chest Pain: Stable Angina, Unstable Angina, STEMI, NSTEMI Aortic Dissection, Pneumothorax, Musculoskeletal, Esophageal Spasm GERD, Cholecystitis, Pancreatitis, Zoster, this is not meant to be an all-inclusive list. EKG interpreted by me (3pts min.). @ -As above X-rays interpreted by me (1pt min.). @ -Chest x-ray shows no acute abnormality CT interpreted by me (1pt min.). @ -None done U/S interpreted by me (1pt. min.). @ -None done What testing was considered but not performed or refused? (CT, X-rays, U/S, labs)? Why? @ -None What meds were considered but not given or refused? Why? @ -None Did you discuss the management of the patient with other professionals (professionals i.e. , PA, MANUFACTURING COST ESTIMATOR, lab, RT, psych nurse, sexual assault social worker, u.s. commissioner, teacher, executive vice president and chief operating officer, business case analyst)? Give summary @ -I spoke with Dr. leyva he agreed to admit the patient admitted the patient wrote admitting orders. I spoke with Dr. Horowitz the annealing operator and I placed him on consult Was smoking cessation discussed for >3mins.? @ -No Was critical care preformed (if so, how long)? @ -35 minutes Were there social determinants of health that impacted care today? How? (Homelessness, low income, unemployed, alcoholism, drug addiction, transportation, low edu. Level, literacy, decrease access to med. care, detention, rehab)? @ -No Was there de-escalation of care discussed even if they declined (Discuss DNR or withdrawal of care, Hospice)? DNR status @ -No What co-morbidities impacted this encounter? (DM, HTN, Smoking, COPD, CAD, Cancer, CVA, ARF, Chemo, Hep., AIDS, mental health diagnosis, sleep apnea, morbid obesity)? @ -None Was patient admitted / discharged? Hospital course, mention meds given and route, prescriptions, significant lab abnormalities, going to OR and other pertinent info. @ -Patient's troponin was elevated. Patient was given heparin. Patient was given aspirin patient was given Lipitor and nitroglycerin. I spoke with the admitting doctor Dr. leyva and he agreed to admit the patient. I spoke with Dr. Horowitz and he agreed to see the patient consult Undiagnosed new problem with uncertain prognosis? @ -No Drug Therapy requiring intensive monitoring for toxicity (Heparin, Nitro, Insulin, Cardizem)? @ -No Were any procedures done? @ -No Diagnosis/symptom? @ -Non-STEMI Acute, or Chronic, or Acute on Chronic? @ -Acute Uncomplicated (without systemic symptoms) or Complicated (systemic symptoms)? @ -Complicated Side effects of treatment? @ -No Exacerbation, Progression, or Severe Exacerbation? @ -No Poses a threat to life or bodily function? How? (Chest pain, USA, OR, pneumonia, PE, COPD, DKA, ARF, appy, cholecystitis, CVA, Diverticulitis, Homicidal, Suicidal, threat to staff... and all critical care pts) @ -Yes this could lead to lower ejection fraction and and organ dysfunction - Lab Data Result diagrams: 10/27/23 11:34 10/27/23 11:34 Lab Results 10/27/23 10/27/23 10/27/23 Range/Units 11:34 11:34 11:34 WBC 13.1 H (3.8-10.6) k/uL RBC 4.67 (3.80-5.40) m/uL Hgb 15.4 (11.4-16.0) gm/dL Hct 45.8 (34.0-46.0) % MCV 98.1 (80.0-100.0) fL MCH 33.0 (25.0-35.0) pg MCHC 33.6 (31.0-37.0) g/dL RDW 13.7 (11.5-15.5) % Plt Count 254 (150-450) k/uL MPV 10.2 Neutrophils % 79 % Lymphocytes % 14 % Monocytes % 4 % Eosinophils % 2 % Basophils % 0 % Neutrophils # 10.3 H (1.3-7.7) k/uL Lymphocytes # 1.9 (1.0-4.8) k/uL Monocytes # 0.6 (0-1.0) k/uL Eosinophils # 0.2 (0-0.7) k/uL Basophils # 0.1 (0-0.2) k/uL PT 10.4 (10.0-12.5) sec INR 0.9 (<1.2) APTT 26.5 (22.0-30.0) sec Sodium (137-145) mmol/L Potassium (3.5-5.1) mmol/L Chloride (98-107) mmol/L Carbon Dioxide (22-30) mmol/L Anion Gap mmol/L BUN (7-17) mg/dL Creatinine (0.52-1.04) mg/dL Est GFR (CKD-EPI)AfAm (>60 ml/min/1.73 sqM) Est GFR (CKD-EPI)NonAf (>60 ml/min/1.73 sqM) Glucose (74-99) mg/dL Calcium (8.4-10.2) mg/dL Magnesium (1.6-2.3) mg/dL Total Bilirubin (0.2-1.3) mg/dL AST (14-36) U/L ALT (4-34) U/L Alkaline Phosphatase (38-126) U/L Troponin I (0.000-0.034) ng/mL Total Protein (6.3-8.2) g/dL Albumin (3.5-5.0) g/dL Urine Color Colorless Urine Appearance Clear (Clear) Urine pH 6.5 (5.0-8.0) Ur Specific Viper 1.015 (1.001-1.035) Urine Protein 3+ H (Negative) Urine Glucose (UA) 4+ H (Negative) Urine Ketones Negative (Negative) Urine Blood Small H (Negative) Urine Nitrite Negative (Negative) Urine Bilirubin Negative (Negative) Urine Urobilinogen <2.0 (<2.0) mg/dL Ur Leukocyte Esterase Negative (Negative) Urine RBC 1 (0-5) /hpf Urine WBC 1 (0-5) /hpf Ur Squamous Epith Cells <1 (0-4) /hpf Hyaline Casts 1 (0-2) /lpf Urine Mucus Rare H (None) /hpf 10/27/23 10/27/23 Range/Units 11:34 11:34 WBC (3.8-10.6) k/uL RBC (3.80-5.40) m/uL Hgb (11.4-16.0) gm/dL Hct (34.0-46.0) % MCV (80.0-100.0) fL MCH (25.0-35.0) pg MCHC (31.0-37.0) g/dL RDW (11.5-15.5) % Plt Count (150-450) k/uL MPV Neutrophils % % Lymphocytes % % Monocytes % % Eosinophils % % Basophils % % Neutrophils # (1.3-7.7) k/uL Lymphocytes # (1.0-4.8) k/uL Monocytes # (0-1.0) k/uL Eosinophils # (0-0.7) k/uL Basophils # (0-0.2) k/uL PT (10.0-12.5) sec INR (<1.2) APTT (22.0-30.0) sec Sodium 137 (137-145) mmol/L Potassium 4.4 (3.5-5.1) mmol/L Chloride 109 H (98-107) mmol/L Carbon Dioxide 19 L (22-30) mmol/L Anion Gap 9 mmol/L BUN 16 (7-17) mg/dL Creatinine 1.18 H (0.52-1.04) mg/dL Est GFR (CKD-EPI)AfAm 62 (>60 ml/min/1.73 sqM) Est GFR (CKD-EPI)NonAf 53 (>60 ml/min/1.73 sqM) Glucose 316 H (74-99) mg/dL Calcium 9.9 (8.4-10.2) mg/dL Magnesium 1.6 (1.6-2.3) mg/dL Total Bilirubin 0.4 (0.2-1.3) mg/dL AST 23 (14-36) U/L ALT 20 (4-34) U/L Alkaline Phosphatase 187 H (38-126) U/L Troponin I 0.153 H* (0.000-0.034) ng/mL Total Protein 5.5 L (6.3-8.2) g/dL Albumin 3.1 L (3.5-5.0) g/dL Urine Color Urine Appearance (Clear) Urine pH (5.0-8.0) Ur Specific Viper (1.001-1.035) Urine Protein (Negative) Urine Glucose (UA) (Negative) Urine Ketones (Negative) Urine Blood (Negative) Urine Nitrite (Negative) Urine Bilirubin (Negative) Urine Urobilinogen (<2.0) mg/dL Ur Leukocyte Esterase (Negative) Urine RBC (0-5) /hpf Urine WBC (0-5) /hpf Ur Squamous Epith Cells (0-4) /hpf Hyaline Casts (0-2) /lpf Urine Mucus (None) /hpf Critical Care Time Critical Care Time: Yes Total Critical Care Time: 35 Disposition Clinical Impression: Non-STEMI (non-ST elevated myocardial infarction) Disposition: ADMITTED IP TO THIS HOSP Referrals: Dagmar Hennessy MD [Primary Care Provider] - 1-2 days Time of Disposition: 14:01
[2023-10-27] MEDS ORDERED: NITROGLYCERIN OINT 1 INCH/GM PACKET TOPICAL STA (11:19)
[2023-10-27] MEDS ORDERED: ASPIRIN 81 MG PO STA (11:19)
[2023-10-27 11:43] LABS: Basophils # (A) 0.1 k/uL (0-0.2); Basophils % (A) 0 %; Eosinophils # (A) 0.2 k/uL (0-0.7); Eosinophils % (A) 2 %; HCT 45.8 % (34.0-46.0); HGB 15.4 gm/dL (11.4-16.0); Lymphocytes # (A) 1.9 k/uL (1.0-4.8); Lymphocytes % (A) 14 %; MCHC 33.6 g/dL (31.0-37.0); MCV 98.1 fL (80.0-100.0); Mean Platelet Volume 10.2; Monocytes # (A) 0.6 k/uL (0-1.0); Monocytes % (A) 4 %; Neutrophils # (A) 10.3 k/uL (1.3-7.7); Neutrophils % (A) 79 %; Platelet Count 254 k/uL (150-450); RBC 4.67 m/uL (3.80-5.40); RDW 13.7 % (11.5-15.5); WBC 13.1 k/uL (3.8-10.6)
--- NOTE | 2023-10-27 11:57 | XR ---
EXAMINATION TYPE: XR chest 2V DATE OF EXAM: 10/27/2023 11:30 AM CLINICAL INDICATION:Female, 53 years old with history of Chest Pain; COMPARISON: Chest radiographs from 07/17/2023 TECHNIQUE: XR chest 2V Frontal and lateral views of the chest. FINDINGS: Lungs/Pleura: There is no evidence of pleural effusion, focal consolidation, or pneumothorax. Pulmonary vascularity: Unremarkable. Heart/mediastinum: Cardiomediastinal silhouette is unremarkable. Musculoskeletal: No acute osseous pathology. IMPRESSION: No acute cardiopulmonary disease/process.
[2023-10-27 11:58] LABS: ALT 20 U/L (4-34); AST 23 U/L (14-36); African American GFR (CKD) 62 (>60 ml/min/1.73 sqM); Albumin 3.1 g/dL (3.5-5.0); Alkaline Phosphatase 187 U/L (38-126); Anion Gap 9 mmol/L; Blood Urea Nitrogen 16 mg/dL (7-17); Calcium 9.9 mg/dL (8.4-10.2); Carbon Dioxide 19 mmol/L (22-30); Chloride 109 mmol/L (98-107); Glucose 316 mg/dL (74-99); Magnesium 1.6 mg/dL (1.6-2.3); Non-African American GFR(CKD) 53 (>60 ml/min/1.73 sqM); Potassium 4.4 mmol/L (3.5-5.1); Sodium 137 mmol/L (137-145); Total Bilirubin 0.4 mg/dL (0.2-1.3); Total Protein 5.5 g/dL (6.3-8.2)
[2023-10-27 12:09] LABS: INR 0.9 (<1.2); Partial Thromboplastin Time 26.5 sec (22.0-30.0); Prothrombin Time 10.4 sec (10.0-12.5)
[2023-10-27 12:20] LABS: Appearance,Urine Clear (Clear); Bilirubin,Urine Negative (Negative); Blood,Urine Small (Negative); Color,Urine Colorless; Glucose,Urine (UA) 4+ (Negative); Hyaline Casts,Urine 1 /lpf (0-2); Ketones,Urine Negative (Negative); Leukocyte Esterase,Urine Negative (Negative); Mucus,Urine Rare /hpf; Nitrite,Urine Negative (Negative); PH, Urine 6.5 (5.0-8.0); Protein,Urine 3+ (Negative); RBC,Urine 1 /hpf (0-5); Specific Gravity,Urine 1.015 (1.001-1.035); Squamous Epithelial Cell,Urine <1 /hpf (0-4); Urobilinogen,Urine <2.0 mg/dL (<2.0); WBC,Urine 1 /hpf (0-5)
[2023-10-27] MEDS ORDERED: HEPARIN SODIUM 1,000 UN/ML (10ML VL) IV ONE (12:23)
[2023-10-27] MEDS ORDERED: NITROGLYCERIN SL TABS 0.4 MG TAB SUBLINGUAL STA (12:40)
[2023-10-27] MEDS: HEPARIN SOD,PORK IN 0.45% NACL 25,000 UNIT in 0.45% NACL 1 250ML.BAG IV SCH (12:45)
[2023-10-27] MEDS ORDERED: NITROGLYCERIN SL TABS 0.4 MG TAB SUBLINGUAL PRN (14:01)
[2023-10-27] MEDS ORDERED: ALPRAZolam 1 MG TAB PO PRN (14:45)
[2023-10-27] MEDS ORDERED: ALBUTEROL NEBULIZED 2.5 MG/3 ML INHALATION PRN (14:45)
[2023-10-27] MEDS ORDERED: DEXTROSE 50% SYRINGE 50 ML IVP PRN ×2 (14:47)
[2023-10-27] MEDS: NITROGLYCERIN-D5W PMX 50 MG in DEXTROSE/WATER 1 250ML.BAG IV SCH (15:02)
[2023-10-27] MEDS: INSULIN LISPRO (For Pump) 100 UNIT/ML VIAL SQ-PUMP SCH (15:26)
[2023-10-27] MEDS: HYDROcodone/APAP 5-325MG 1 EACH TAB PO PRN (15:30)
--- NOTE | 2023-10-27 15:53 | P.CRDCN ---
History of Present Illness Consult date: 10/27/23 History of present illness: HISTORY OF PRESENTING ILLNESS 53-year-old female with past medical history of CAD status post PCI to LAD, diagonal and RCA. She is known to Dr. Serrano. She is also a smoker. Morbid obesity She also has a prior history of CVA, hypertension, dyslipidemia, type 2 diabetes, morbid obesity. This time she present to the hospital because of 4 days of worsening shortness of breath and substernal chest heaviness. Next this morning patient reported significant chest pain which was 10 over 10 in severity along with shortness of breath therefore she came to the hospital On admission she was noticed to be hypertensive with a SBP in the range of 200s. Her labs showed a creatinine of 1.18, troponin of 0.1, 0.3. Hemoglobin 15 Bedside echocardiogram showed possible anteroseptal wall hypokinesia with EF of 45-50% Last echo from January 2023 shows an EF of 55% with severe left atrial dilatation ECG shows sinus rhythm with right bundle branch block, , LVH, left axis deviation REVIEW OF SYSTEMS 14 point review of system is negative except what is mentioned above in HPI. PHYSICAL EXAMINATION Vital signs reviewed. Head: Normocephalic. Eyes: Sclerae nonicteric. Neck: Brisk carotid upstroke, no jugular venous distention. Lungs: Clear to auscultation. Heart: Regular rate and rhythm, S1-S2, no S3, no murmur or rub. Abdomen: Soft nontender, positive bowel sounds no organomegaly. Extremities: No edema, intact distal pulses. Neuro: Alert, oritented, no focal deficits ASSESSMENT NSTEMI Prior CAD status post PCI to LAD, RCA, diagonal Prior history of CVA Hypertensive urgency on admission, but controlled now Morbid obesity Type II Diabetes Noncompliance Tobacco smoker PLAN Continue aspirin, atorvastatin. Continue Coreg 25 mg twice a day Start IV heparin intravenous and start IV nitroglycerin drip Plan for cardiac catheterization Saturday with Dr. 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 Last Myocardial Infarction Date:: Pt thinks 2015 History of Any Multi-Drug Resistant Organisms: None Reported Past Surgical History: Section, Cholecystectomy, Heart Catheterization With Stent, Hysterectomy, Tubal Ligation, Uterine Ablation Additional Past Surgical History / Comment(s): vein stripping right leg, radio frequency ablation of right back-02/22/2015, four stents on 04/03/16 and one on march 05, ovaries removed, colonscopy- polyp removal Past Anesthesia/Blood Transfusion Reactions: Motion Sickness Additional Past Anesthesia/Blood Transfusion Reaction / Comment(s): mild claustrophobia Date of Last Stent Placement:: 04/03/16 Past Psychological History: Anxiety, Depression Additional Psychological History / Comment(s): Pt resides with her spouse. She is mostly in her wheelchair. She has a walker and cane. She has a dexcom. Her spouse assists her with her medication organization. Spouse also drives pt. Smoking Status: Current every day smoker Past Alcohol Use History: None Reported Additional Past Alcohol Use History / Comment(s): Pt started smoking in 1988 and is alittle less than a ppd smoker. Past Drug Use History: None Reported - Past Family History Father Family Medical History: Congestive Heart Failure (CHF), Coronary Artery Disease (CAD), Diabetes Mellitus Mother Family Medical History: Cancer, COPD, Hypertension, Respiratory Disorder Additional Family Medical History / Comment(s): emphysema, colon CA Medications and Allergies Home Medications Medication Instructions Recorded Confirmed Type Aspirin [Adult Low Dose Aspirin EC] 81 mg PO DAILY 11/26/17 10/27/23 History DULoxetine HCL [Cymbalta] 60 mg PO DAILY 08/25/18 10/27/23 History Isosorbide Mononitrate ER [Imdur] 60 mg PO DAILY 09/08/18 10/27/23 History ARIPiprazole [Abilify] 2 mg PO HS 11/08/20 10/27/23 History Albuterol Nebulized [Ventolin 2.5 mg INHALATION RT-QID PRN 10/06/22 10/27/23 History Nebulized] Empagliflozin [Jardiance] 10 mg PO DAILY 10/06/22 10/27/23 History Famotidine 20 mg PO BID 10/06/22 10/27/23 History Nitroglycerin Sl Tabs [Nitrostat] 0.4 mg SL Q5M PRN 10/06/22 10/27/23 History Pioglitazone [Actos] 15 mg PO DAILY 10/06/22 10/27/23 History Lacosamide [Vimpat] 50 mg PO BID 28 Days #14 tab 10/18/22 10/27/23 Rx Fenofibrate [Lofibra] 160 mg PO DAILY 01/25/23 10/27/23 History Multivit-Min/Folic Acid/Epa082 1 tab PO DAILY 01/25/23 10/27/23 History [Alive Premium Adult Multivit] Rimegepant Sulfate [Nurtec Odt] 75 mg PO DAILY PRN 01/25/23 10/27/23 History lamoTRIgine [LaMICtal Xr] 250 mg PO DAILY 01/25/23 10/27/23 History ALPRAZolam [Xanax] 2 mg PO HS PRN 02/05/23 10/27/23 History Pregabalin [Lyrica] 150 mg PO BID 02/05/23 10/27/23 History carvediloL [Coreg] 25 mg PO BID 02/05/23 10/27/23 History Atorvastatin [Lipitor] 20 mg PO HS 07/17/23 10/27/23 History Budesonide/Formoterol Fumarate 2 puff INHALATION RT-BID 07/17/23 10/27/23 History [Symbicort 160-4.5 Mcg Inhaler] Furosemide [Lasix] 20 mg PO DAILY PRN 07/17/23 10/27/23 History INSULIN LISPRO (For Pump) [humaLOG 0.01 units SQ-PUMP CONTINUOUS 07/17/23 10/27/23 History (For Pump)] Promethazine/Dextromethorphan 5 ml PO Q6H PRN 07/17/23 10/27/23 History [Promethazine-Dm 6.25-15 mg/5Ml] cloNIDine 0.1 MG/24HR PATCH 0.1 mg TRANSDERM TH 07/17/23 10/27/23 History [Catapres-TTS] HYDROmorphone [Dilaudid] 2 mg PO BID PRN 10/27/23 10/27/23 History Sucralfate [Carafate] 1 gm PO ACHS 10/27/23 10/27/23 History Allergies Allergy/AdvReac Type Severity Reaction Status Date / Time Fish Containing Products Allergy Anaphylaxis Verified 10/27/23 14:31 Iodinated Contrast Media Allergy Anaphylaxis Verified 10/27/23 14:31 [Iodinated Contrast Media - IV Dye] Sulfa (Sulfonamide Allergy Anaphylaxis Verified 10/27/23 14:31 Antibiotics) sulfamethoxazole Allergy Anaphylaxis Verified 10/27/23 14:31 [From ] tree nut [Nut] Allergy Anaphylaxis Verified 10/27/23 14:31 trimethoprim [From ] Allergy Anaphylaxis Verified 10/27/23 14:31 Physical Exam Vitals: Vital Signs Temp Pulse Pulse Resp BP BP Pulse Ox 10/27/23 15:35 190/111 10/27/23 15:25 97.9 F 78 18 205/100 97 10/27/23 15:22 147/76 10/27/23 14:00 75 18 168/92 96 10/27/23 12:00 75 18 206/93 97 10/27/23 11:00 74 18 218/105 97 10/27/23 10:46 218/105 10/27/23 10:44 213/89 96 10/27/23 10:41 98.3 F 79 18 213/89 96 Intake and Output 10/27/23 10/27/23 10/27/23 06:59 14:59 22:59 Other: Weight 96.615 kg 96.615 kg Results 10/27/23 11:34 10/27/23 11:34 Cardiac Enzymes 10/27/23 10/27/23 10/27/23 Range/Units 11:34 11:34 14:42 AST 23 (14-36) U/L Troponin I 0.153 H* 0.319 H* (0.000-0.034) ng/mL Coagulation 10/27/23 Range/Units 11:34 PT 10.4 (10.0-12.5) sec APTT 26.5 (22.0-30.0) sec CBC 10/27/23 Range/Units 11:34 WBC 13.1 H (3.8-10.6) k/uL RBC 4.67 (3.80-5.40) m/uL Hgb 15.4 (11.4-16.0) gm/dL Hct 45.8 (34.0-46.0) % Plt Count 254 (150-450) k/uL Comprehensive Metabolic Panel 10/27/23 Range/Units 11:34 Sodium 137 (137-145) mmol/L Potassium 4.4 (3.5-5.1) mmol/L Chloride 109 H (98-107) mmol/L Carbon Dioxide 19 L (22-30) mmol/L BUN 16 (7-17) mg/dL Creatinine 1.18 H (0.52-1.04) mg/dL Glucose 316 H (74-99) mg/dL Calcium 9.9 (8.4-10.2) mg/dL AST 23 (14-36) U/L ALT 20 (4-34) U/L Alkaline Phosphatase 187 H (38-126) U/L Total Protein 5.5 L (6.3-8.2) g/dL Albumin 3.1 L (3.5-5.0) g/dL Current Medications Generic Name Dose Route Start Last Admin Trade Name Freq PRN Reason Stop Dose Admin Hydrocodone Bitart/Acetaminophen 1 each 10/27/23 14:58 10/27/23 15:30 Hydrocodone/Apap 5-325mg 1 Each Tab PO 1 each Q6HR PRN Administration Pain Albuterol Sulfate 2.5 mg 10/27/23 14:45 Albuterol Nebulized 2.5 Mg/3 Ml INHALATION RT-QID PRN Shortness Of Breath Alprazolam 2 mg 10/27/23 14:45 Alprazolam 1 Mg Tab PO HS PRN Anxiety Aripiprazole 2 mg 10/27/23 21:00 Aripiprazole 2 Mg Tab PO HS SARAHY Aspirin 325 mg 10/28/23 09:00 Aspirin 325 Mg Tab PO DAILY SARAHY Atorvastatin Calcium 40 mg 10/28/23 09:00 Atorvastatin 40 Mg Tab PO DAILY SARAHY Budesonide/Formoterol Fumarate 2 puff 10/27/23 20:00 Symbicort 160-4.5 Mcg Inhaler INHALATION RT-BID SARAHY Carvedilol 25 mg 10/27/23 17:30 Carvedilol 12.5 Mg Tab PO BID-W/MEALS SARAHY Dextrose/Water 25 ml 10/27/23 14:47 Dextrose 50% Syringe 50 Ml IVP PER PROTOCOL PRN Hypoglycemia Protocol Dextrose/Water 50 ml 10/27/23 14:47 Dextrose 50% Syringe 50 Ml IVP PER PROTOCOL PRN Hypoglycemia Protocol Famotidine 20 mg 10/27/23 21:00 Famotidine 20 Mg Tab PO BID FOR[facility], [facility]1983 Heparin Sodium (Porcine) 0 unit 10/27/23 12:30 Heparin Sodium 1,000 Un/Ml (10ml Vl) IV PER PROTOCOL PRN Low PTT Protocol Heparin Sodium/Sodium Chloride 250 mls @ 10 mls/hr 10/27/23 12:30 10/27/23 12:45 25,000 unit/ Sodium Chloride IV 10.35 units/kg/hr .Q24H SARAHY 10 mls/hr Administration Protocol 10.35 UNITS/KG/HR Nitroglycerin/Dextrose 50 mg/ 250 mls @ 1.5 mls/hr 10/27/23 15:00 10/27/23 15:02 IV Solution IV 5 mcg/min .Q24H SARAHY 1.5 mls/hr Administration Protocol 5 MCG/MIN Insulin Aspart 0 unit 10/27/23 17:30 Insulin Aspart (Novolog) 100 Unit/Ml Vial SQ ACHS FOR[facility], [facility]1983 Protocol Insulin Human Lispro 0.01 unit 10/27/23 14:45 10/27/23 15:26 Insulin Lispro (For Pump) 100 Unit/Ml Vial SQ-PUMP Not Given CONTINUOUS [facility], [facility]–1983 Lacosamide 50 mg 10/27/23 21:00 Lacosamide 50 Mg Tablet PO BID [facility], [facility]–1983 Lamotrigine 100 mg 10/28/23 09:00 Lamotrigine 100 Mg Tab PO BID [facility]1983 Nitroglycerin 0.4 mg 10/27/23 14:01 Nitroglycerin Sl Tabs 0.4 Mg Tab SUBLINGUAL Q5M PRN Chest Pain Nitroglycerin 1 inch 10/27/23 18:00 Nitroglycerin Oint 1 Inch/Gm Packet TOPICAL Q6HR [facility], [facility]1983 Intake and Output 10/27/23 10/27/23 10/27/23 06:59 14:59 22:59 Other: Weight 96.615 kg 96.615 kg Patient Weight 10/28/23 06:59 Weight 96.615 kg 10/27/23 11:34 10/27/23 11:34
[2023-10-27] MEDS: carvediloL 12.5 MG TAB PO SCH (16:23)
[2023-10-27 16:28] LABS: Glucose,Whole Blood 265 mg/dL (70-110)
[2023-10-27] MEDS ORDERED: NITROGLYCERIN OINT 1 INCH/GM PACKET TOPICAL SCH (18:00)
[2023-10-27] MEDS: HYDROmorphone 2 MG TAB PO PRN (18:23)
[2023-10-27] MEDS: HEPARIN SODIUM 1,000 UN/ML (10ML VL) IV PRN (18:24)
[2023-10-27] MEDS: INSULIN ASPART (NovoLOG) 100 UNIT/ML VIAL SQ SCH ×2 (18:46→20:50)
[2023-10-27 20:04] LABS: Glucose,Whole Blood 452 mg/dL (70-110)
--- NOTE | 2023-10-27 20:07 | P.HPIM ---
History of Present Illness H&P Date: 10/27/23 Chief Complaint: Chest pain Patient is a 53-year-old female with a past medical history of coronary artery disease with stent placement x 5, history VA x 5 hypertension, diabetes on insulin pump, history of DVT, fibromyalgia, hypertension, hyperlipidemia, obstructive sleep apnea on CPAP, history of cervical/ovarian cancer, factor V Leiden blood disorder with history of DVTs, CVA with residual right-sided weakness, diabetic peripheral neuropathy, anxiety/depression currently everyday smoker. Patient presented to ER with complaints of chest pain mainly across the arms, upper chest. Pain started last night and was on and off for about 15 minutes. Patient states that pain along the upper arms and felt heaviness in the chest. Patient was able to get back to bed last night and started having pain again this morning. Pain was associated with shortness of breath and nausea. Patient states that she was also diaphoretic. Patient's took blood pressure and was told it was elevated. Did take nitroglycerin without much help. Patient presented to ER for further evaluation. EKG showed sinus rhythm with right bundle branch block, LVH. Chest x-ray showed no acute cardiopulmonary process/disease. Patient otherwise denies any cough or sputum production. No fever no chills. Denies any recent major illnesses. Abdominal pain or diarrhea. No vomiting episodes. Laboratory showed WBC 13.1 hemoglobin 15.4 and platelets 254 Sodium 137 potassium 4.4 chloride 109 bicarb is 19 BUN 16 and creatinine 1.18 and blood sugar is 316 Magnesium 1.6 Troponin 0.153, 0.319 and 0.355 Albumin 3.1 Urinalysis showed 3+ protein 4+ glucose and small blood. Review of Systems Constitutional: Patient denies any fever or chills . no Generalized weakness. Abdomen: Patient denied any nausea or vomiting or abd. pain Cardiovascular: Patient was complaining of chest pain associated with r short of breath no palpitations. No leg swelling. Respiratory: patient denied any cough . no sputum production. No shortness of breath Neurologic: Patient denied any numbness or tingling or headache. Musculoskeletal: Patient denies any complaints of joint swelling or deformity. Skin: Negative Psychiatric: Negative Endocrine: No heat or cold intolerance. No recent weight gain. Genitourinary: No dysuria or hematuria. 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 Last Myocardial Infarction Date:: Pt thinks 2015 History of Any Multi-Drug Resistant Organisms: None Reported Past Surgical History: Section, Cholecystectomy, Heart Catheterization With Stent, Hysterectomy, Tubal Ligation, Uterine Ablation Additional Past Surgical History / Comment(s): vein stripping right leg, radio frequency ablation of right back-02/22/2015, four stents on 04/03/16 and one on march 05, ovaries removed, colonscopy- polyp removal Past Anesthesia/Blood Transfusion Reactions: Motion Sickness Additional Past Anesthesia/Blood Transfusion Reaction / Comment(s): mild claustrophobia Date of Last Stent Placement:: 04/03/16 Past Psychological History: Anxiety, Depression Smoking Status: Current every day smoker Past Alcohol Use History: None Reported Past Drug Use History: None Reported - Past Family History Father Family Medical History: Congestive Heart Failure (CHF), Coronary Artery Disease (CAD), Diabetes Mellitus Mother Family Medical History: Cancer, COPD, Hypertension, Respiratory Disorder Additional Family Medical History / Comment(s): emphysema, colon CA Medications and Allergies Home Medications Medication Instructions Recorded Confirmed Type Aspirin [Adult Low Dose Aspirin EC] 81 mg PO DAILY 11/26/17 10/27/23 History DULoxetine HCL [Cymbalta] 60 mg PO DAILY 08/25/18 10/27/23 History Isosorbide Mononitrate ER [Imdur] 60 mg PO DAILY 09/08/18 10/27/23 History ARIPiprazole [Abilify] 2 mg PO HS 11/08/20 10/27/23 History Albuterol Nebulized [Ventolin 2.5 mg INHALATION RT-QID PRN 10/06/22 10/27/23 History Nebulized] Empagliflozin [Jardiance] 10 mg PO DAILY 10/06/22 10/27/23 History Famotidine 20 mg PO BID 10/06/22 10/27/23 History Nitroglycerin Sl Tabs [Nitrostat] 0.4 mg SL Q5M PRN 10/06/22 10/27/23 History Pioglitazone [Actos] 15 mg PO DAILY 10/06/22 10/27/23 History Lacosamide [Vimpat] 50 mg PO BID 28 Days #14 tab 10/18/22 10/27/23 Rx Fenofibrate [Lofibra] 160 mg PO DAILY 01/25/23 10/27/23 History Multivit-Min/Folic Acid/Ayy680 1 tab PO DAILY 01/25/23 10/27/23 History [Alive Premium Adult Multivit] Rimegepant Sulfate [Nurtec Odt] 75 mg PO DAILY PRN 01/25/23 10/27/23 History lamoTRIgine [LaMICtal Xr] 250 mg PO DAILY 01/25/23 10/27/23 History ALPRAZolam [Xanax] 2 mg PO HS PRN 02/05/23 10/27/23 History Pregabalin [Lyrica] 150 mg PO BID 02/05/23 10/27/23 History carvediloL [Coreg] 25 mg PO BID 02/05/23 10/27/23 History Atorvastatin [Lipitor] 20 mg PO HS 07/17/23 10/27/23 History Budesonide/Formoterol Fumarate 2 puff INHALATION RT-BID 07/17/23 10/27/23 History [Symbicort 160-4.5 Mcg Inhaler] Furosemide [Lasix] 20 mg PO DAILY PRN 07/17/23 10/27/23 History INSULIN LISPRO (For Pump) [humaLOG 0.01 units SQ-PUMP CONTINUOUS 07/17/23 10/27/23 History (For Pump)] Promethazine/Dextromethorphan 5 ml PO Q6H PRN 07/17/23 10/27/23 History [Promethazine-Dm 6.25-15 mg/5Ml] cloNIDine 0.1 MG/24HR PATCH 0.1 mg TRANSDERM TH 07/17/23 10/27/23 History [Catapres-TTS] HYDROmorphone [Dilaudid] 2 mg PO BID PRN 10/27/23 10/27/23 History Sucralfate [Carafate] 1 gm PO ACHS 10/27/23 10/27/23 History Allergies Allergy/AdvReac Type Severity Reaction Status Date / Time Fish Containing Products Allergy Anaphylaxis Verified 10/27/23 14:31 Iodinated Contrast Media Allergy Anaphylaxis Verified 10/27/23 14:31 [Iodinated Contrast Media - IV Dye] Sulfa (Sulfonamide Allergy Anaphylaxis Verified 10/27/23 14:31 Antibiotics) sulfamethoxazole Allergy Anaphylaxis Verified 10/27/23 14:31 [From Septra] tree nut [Nut] Allergy Anaphylaxis Verified 10/27/23 14:31 trimethoprim [From ] Allergy Anaphylaxis Verified 10/27/23 14:31 Physical Exam Vitals: Vital Signs Temp Pulse Resp BP Pulse Ox 10/27/23 14:00 75 18 168/92 96 10/27/23 12:00 75 18 206/93 97 10/27/23 11:00 74 18 218/105 97 10/27/23 10:46 218/105 10/27/23 10:44 213/89 96 10/27/23 10:41 98.3 F 79 18 213/89 96 Intake and Output 10/26/23 10/27/23 10/27/23 22:59 06:59 14:59 Other: Weight 96.615 kg PHYSICAL EXAMINATION: Patient is lying in the bed comfortably, no acute distress, awake alert and oriented. obese. HEENT: Normocephalic. Neck is supple. Pupils reactive. Nostrils clear. Oral cavity is moist. Neck reveals no JVD, carotid bruits, or thyromegaly. CHEST EXAMINATION: Trachea is central. Symmetrical expansion. Bibasilar diminished sounds and scattered coarse sounds.. CARDIAC: Normal S1, S2 with no gallops. No murmurs ABDOMEN: Soft. Bowel sounds present. Nontender. No organomegaly. No abdominal bruits. Extremities: reveal no edema. No clubbing or cyanosis Neurologically awake, alert, oriented x3 with well-coordinated movements. No focal deficits noted Skin: No rash or skin lesions. Psychiatric: Coperative. Nonsuicidal, Musculoskeletal: No joint swelling or deformity. Normal range of motion. Results CBC & Chem 7: 10/27/23 11:34 10/27/23 11:34 Labs: Abnormal Lab Results - Last 24 Hours (Table) 10/27/23 10/27/23 10/27/23 Range/Units 11:34 11:34 11:34 WBC 13.1 H (3.8-10.6) k/uL Neutrophils # 10.3 H (1.3-7.7) k/uL Chloride 109 H (98-107) mmol/L Carbon Dioxide 19 L (22-30) mmol/L Creatinine 1.18 H (0.52-1.04) mg/dL Glucose 316 H (74-99) mg/dL Alkaline Phosphatase 187 H (38-126) U/L Troponin I (0.000-0.034) ng/mL Total Protein 5.5 L (6.3-8.2) g/dL Albumin 3.1 L (3.5-5.0) g/dL Urine Protein 3+ H (Negative) Urine Glucose (UA) 4+ H (Negative) Urine Blood Small H (Negative) Urine Mucus Rare H (None) /hpf 10/27/23 Range/Units 11:34 WBC (3.8-10.6) k/uL Neutrophils # (1.3-7.7) k/uL Chloride (98-107) mmol/L Carbon Dioxide (22-30) mmol/L Creatinine (0.52-1.04) mg/dL Glucose (74-99) mg/dL Alkaline Phosphatase (38-126) U/L Troponin I 0.153 H* (0.000-0.034) ng/mL Total Protein (6.3-8.2) g/dL Albumin (3.5-5.0) g/dL Urine Protein (Negative) Urine Glucose (UA) (Negative) Urine Blood (Negative) Urine Mucus (None) /hpf Thrombosis Risk Factor Assmnt - DVT/VTE Prophylaxis DVT/VTE Prophylaxis: Pharmacologic Prophylaxis ordered Assessment and Plan Assessment: Acute non-ST elevated VA Hypertensive emergency on admission blood pressure 213/89 Hyperglycemia with uncontrolled diabetes. Patient is on insulin pump Coronary artery disease with prior history of stent placement x 5 History of VA x 5 Factor V Leyden disorder with prior history of DVTs on anticoagulation Fibromyalgia Chronic pain History of CVA with right-sided residual weakness Hyperlipidemia GERD Bilateral peripheral diabetic neuropathy Obstructive sleep apnea on CPAP at home Peripheral artery disease History of ovarian/cervical/uterine cancer Ongoing nicotine addiction Obesity with a BMI of 34.4 GI prophylaxis. DVT prophylaxis patient is already on Eliquis Plan: Patient will be continued on telemonitoring. Continue with serial EKG and troponin x 3. Patient was started on heparin drip and also nitroglycerin drip. Continue with aspirin, statin and Coreg. Patient is also on clonidine patch q. 7-day. Start back on home blood pressure medications and also insulin pump. Continue with insulin sliding scale. Chronic pain management with Dilaudid 2 mg twice daily as per her home regimen. Cardiology is on board. Plan for catheterization likely on Saturday. Prognosis is guarded. Discussed with the patient and her at bedside in detail. Time with Patient: Greater than 30
[2023-10-27] MEDS: FAMOTIDINE 20 MG TAB PO SCH (20:50)
[2023-10-27] MEDS: LACOSAMIDE 50 MG TABLET PO SCH (20:50)
[2023-10-27] MEDS: MAGNESIUM SULFATE-D5W PMX 1 GM in DEXTROSE/WATER 1 100ML.BAG IVPB SCH ×2 (20:51→21:53)
[2023-10-27] MEDS: ARIPiprazole 2 MG TAB PO SCH (21:06)
[2023-10-27] MEDS: SYMBICORT 160-4.5 MCG INHALER INHALATION SCH (21:16)
[2023-10-28 05:51] LABS: Glucose,Whole Blood 298 mg/dL (70-110)
[2023-10-28] MEDS: HEPARIN SOD,PORK IN 0.45% NACL 25,000 UNIT in 0.45% NACL 1 250ML.BAG IV SCH ×2 (06:01→21:44)
[2023-10-28] MEDS: INSULIN ASPART (NovoLOG) 100 UNIT/ML VIAL SQ SCH (06:02)
[2023-10-28] MEDS: carvediloL 12.5 MG TAB PO SCH ×2 (06:02→16:29)
[2023-10-28 08:23] LABS: Basophils # (A) 0.1 k/uL (0-0.2); Basophils % (A) 1 %; Eosinophils # (A) 0.2 k/uL (0-0.7); Eosinophils % (A) 2 %; HCT 47.9 % (34.0-46.0); HGB 15.9 gm/dL (11.4-16.0); Lymphocytes # (A) 2.2 k/uL (1.0-4.8); Lymphocytes % (A) 20 %; MCH 32.5 pg (25.0-35.0); MCHC 33.3 g/dL (31.0-37.0); MCV 97.7 fL (80.0-100.0); Mean Platelet Volume 9.9; Monocytes # (A) 0.4 k/uL (0-1.0); Monocytes % (A) 4 %; Neutrophils # (A) 7.7 k/uL (1.3-7.7); Neutrophils % (A) 72 %; Platelet Count 222 k/uL (150-450); RDW 13.6 % (11.5-15.5); WBC 10.7 k/uL (3.8-10.6)
[2023-10-28 08:36] LABS: African American GFR (CKD) 54 (>60 ml/min/1.73 sqM); Anion Gap 9 mmol/L; Blood Urea Nitrogen 21 mg/dL (7-17); Calcium 10.2 mg/dL (8.4-10.2); Carbon Dioxide 19 mmol/L (22-30); Chloride 108 mmol/L (98-107); Glucose 300 mg/dL (74-99); Non-African American GFR(CKD) 47 (>60 ml/min/1.73 sqM); Potassium 4.2 mmol/L (3.5-5.1); Sodium 136 mmol/L (137-145)
[2023-10-28] MEDS: LACOSAMIDE 50 MG TABLET PO SCH ×2 (08:55→23:46)
[2023-10-28] MEDS: lamoTRIgine 100 MG TAB PO SCH ×2 (08:55→23:46)
[2023-10-28] MEDS: FAMOTIDINE 20 MG TAB PO SCH (08:55)
[2023-10-28] MEDS: ATORVASTATIN 40 MG TAB PO SCH (08:56)
[2023-10-28] MEDS ORDERED: ASPIRIN 325 MG TAB PO SCH (09:00)
[2023-10-28] MEDS: SYMBICORT 160-4.5 MCG INHALER INHALATION SCH ×2 (09:04→21:26)
[2023-10-28] MEDS: HYDROmorphone 2 MG TAB PO PRN (09:04)
[2023-10-28 11:10] LABS: Glucose,Whole Blood 274 mg/dL (70-110)
[2023-10-28] MEDS: INSULIN LISPRO (For Pump) 100 UNIT/ML VIAL SQ-PUMP SCH (11:11)
[2023-10-28] MEDS ORDERED: INSULIN PUMP BASAL RATES 1 EACH MISC MISCELLANE PRN (11:12)
[2023-10-28] MEDS ORDERED: INSULIN ASPART (NovoLOG) 100 UNIT/ML VIAL SQ PRN (11:12)
[2023-10-28] MEDS ORDERED: INSPUCOR MISCELLANE PRN (11:12)
[2023-10-28] MEDS: INSULIN PUMP MEAL BOLUS 1 UNIT MISC MISCELLANE SCH ×3 (11:16→22:57)
[2023-10-28] MEDS: LOSARTAN 50 MG TAB PO SCH (12:13)
[2023-10-28] MEDS ORDERED: Insulin Aspart (For Pump) 100 UNIT/ML VIAL SQ-PUMP SCH (12:30)
[2023-10-28] MEDS: NITROGLYCERIN-D5W PMX 50 MG in DEXTROSE/WATER 1 250ML.BAG IV SCH (12:53)
--- NOTE | 2023-10-28 13:52 | P.PN ---
Subjective Progress Note Date: 10/28/23 Progress note Patient is currently stable from cardiac vessel standpoint. She is still hypertensive. BP 175/84 Heart rate 63 beats a minute HISTORY OF PRESENTING ILLNESS 53-year-old female with past medical history of CAD status post PCI to LAD, diagonal and RCA. She is known to Dr. Serrano. She is also a smoker. Morbid obesity She also has a prior history of CVA, hypertension, dyslipidemia, type 2 diabetes, morbid obesity. This time she present to the hospital because of 4 days of worsening shortness of breath and substernal chest heaviness. Next this morning patient reported significant chest pain which was 10 over 10 in severity along with shortness of breath therefore she came to the hospital On admission she was noticed to be hypertensive with a SBP in the range of 200s. Her labs showed a creatinine of 1.18, troponin of 0.1, 0.3. Hemoglobin 15 Bedside echocardiogram showed possible anteroseptal wall hypokinesia with EF of 45-50% Last echo from January 2023 shows an EF of 55% with severe left atrial dilatation ECG shows sinus rhythm with right bundle branch block, , LVH, left axis deviation REVIEW OF SYSTEMS 14 point review of system is negative except what is mentioned above in HPI. PHYSICAL EXAMINATION Vital signs reviewed. Head: Normocephalic. Eyes: Sclerae nonicteric. Neck: Brisk carotid upstroke, no jugular venous distention. Lungs: Clear to auscultation. Heart: Regular rate and rhythm, S1-S2, no S3, no murmur or rub. Abdomen: Soft nontender, positive bowel sounds no organomegaly. Extremities: No edema, intact distal pulses. Neuro: Alert, oritented, no focal deficits ASSESSMENT NSTEMI Prior CAD status post PCI to LAD, RCA, diagonal Prior history of CVA Hypertensive urgency on admission, but controlled now Morbid obesity Type II Diabetes Noncompliance Tobacco smoker PLAN Continue aspirin, atorvastatin. Continue Coreg 25 mg twice a day Start losartan 50 mg Start amlodipine 5 mg daily Start IV heparin intravenous and start IV nitroglycerin drip Plan for cardiac catheterization Saturday with Dr. Serrano Objective - Vital Signs Vital signs: Vital Signs Temp 97.9 F 10/28/23 12:00 Pulse 63 10/28/23 12:00 Resp 18 10/28/23 12:00 BP 210/92 10/28/23 12:00 Pulse Ox 96 10/28/23 12:00 FiO2 Intake & Output 10/27/23 10/28/23 10/28/23 18:59 06:59 18:59 Intake Total 174.667 698.440 432.285 Output Total 950 Balance 174.667 -251.560 432.285 Weight 96.615 kg Intake: Intake, IV Titration 56.667 158.440 74.285 Amount Heparin Sod,Pork in 0.45% 56.667 158.440 40.535 NaCl 25,000 unit In 0.45 % NaCl 1 250ml.bag @ 10. 35 UNITS/KG/HR 10 mls/hr IV .Q24H SARAHY Rx#: [id number] Nitroglycerin-D5w Pmx 50 33.75 mg In Dextrose/Water 1 250ml.bag @ 5 MCG/MIN 1.5 mls/hr IV .Q24H SARAHY Rx#: [id number] Oral 118 540 358 Output: Urine 950 Other: Voiding Method Bedside Commode Bedside Commode Bedside Commode # Voids 1 1 - Labs CBC & Chem 7: 10/28/23 07:41 10/28/23 07:41 Labs: Abnormal Lab Results - Last 24 Hours (Table) 10/27/23 10/27/23 10/27/23 Range/Units 14:42 16:27 17:46 WBC (3.8-10.6) k/uL Hct (34.0-46.0) % APTT 30.7 H (22.0-30.0) sec Sodium (137-145) mmol/L Chloride (98-107) mmol/L Carbon Dioxide (22-30) mmol/L BUN (7-17) mg/dL Creatinine (0.52-1.04) mg/dL Glucose (74-99) mg/dL POC Glucose (mg/dL) 265 H (70-110) mg/dL Hemoglobin A1c (<=6.0) % Troponin I 0.319 H* (0.000-0.034) ng/mL 10/27/23 10/27/23 10/27/23 Range/Units 17:46 17:46 20:01 WBC (3.8-10.6) k/uL Hct (34.0-46.0) % APTT (22.0-30.0) sec Sodium (137-145) mmol/L Chloride (98-107) mmol/L Carbon Dioxide (22-30) mmol/L BUN (7-17) mg/dL Creatinine (0.52-1.04) mg/dL Glucose (74-99) mg/dL POC Glucose (mg/dL) 452 H (70-110) mg/dL Hemoglobin A1c 9.3 H (<=6.0) % Troponin I 0.355 H* (0.000-0.034) ng/mL 10/28/23 10/28/23 10/28/23 Range/Units 00:33 05:49 07:41 WBC (3.8-10.6) k/uL Hct (34.0-46.0) % APTT 35.7 H (22.0-30.0) sec Sodium 136 L (137-145) mmol/L Chloride 108 H (98-107) mmol/L Carbon Dioxide 19 L (22-30) mmol/L BUN 21 H (7-17) mg/dL Creatinine 1.32 H (0.52-1.04) mg/dL Glucose 300 H (74-99) mg/dL POC Glucose (mg/dL) 298 H (70-110) mg/dL Hemoglobin A1c (<=6.0) % Troponin I (0.000-0.034) ng/mL 10/28/23 10/28/23 10/28/23 Range/Units 07:41 07:41 11:08 WBC 10.7 H (3.8-10.6) k/uL Hct 47.9 H (34.0-46.0) % APTT 37.6 H (22.0-30.0) sec Sodium (137-145) mmol/L Chloride (98-107) mmol/L Carbon Dioxide (22-30) mmol/L BUN (7-17) mg/dL Creatinine (0.52-1.04) mg/dL Glucose (74-99) mg/dL POC Glucose (mg/dL) 274 H (70-110) mg/dL Hemoglobin A1c (<=6.0) % Troponin I (0.000-0.034) ng/mL
[2023-10-28] MEDS: amLODIPine 5 MG TAB PO SCH (14:00)
[2023-10-28 14:37] LABS: Chol/HDL Ratio 6.54 Ratio
[2023-10-28 16:06] LABS: Glucose,Whole Blood 279 mg/dL (70-110)
--- NOTE | 2023-10-28 16:57 | CA ---
Transthoracic Echo Report Name: Leticia Langley Age: 53 Gender: F : 1970 Exam Date: 10/28/2023 12:14 Exam Location: [facility] Ht (in): 66 Wt (lb): 213 Ordering Physician: Sudhir Hernandez MD Attending/Referring Phys: Concession Supervisor Reema Crow RDCS Procedure CPT: Indications: Chest pain, + trop Cardiac Hx: Technical Quality: Fair Contrast 1: Total Dose (mL): Contrast 2: Total Dose (mL): MEASUREMENTS (Male / Female) Normal Values 2D ECHO LV Diastolic Diameter PLAX 5.0 cm 4.2 - 5.9 / 3.9 - 5.3 cm LV Systolic Diameter PLAX 4.1 cm IVS Diastolic Thickness 1.9 cm 0.6 - 1.0 / 0.6 - 0.9 cm LVPW Diastolic Thickness 1.7 cm 0.6 - 1.0 / 0.6 - 0.9 cm LV Relative Wall Thickness 0.7 RV Internal Dim ED PLAX 3.2 cm LA Systolic Diameter LX 4.1 cm 3.0 - 4.0 / 2.7 - 3.8 cm LV Diastolic Volume MOD BP 113.3 cm??? 67 - 155 / 56 - 104 cm??? LV Systolic Volume MOD BP 54.4 cm??? 22 - 58 / 19 - 49 cm??? LV Ejection Fraction MOD BP 52.0 % >= 55 % LV Cardiac Index MOD BP 1636.3 cm???/min???m??? LV Diastolic Volume MOD 4C 111.3 cm??? LV Systolic Volume MOD 4C 49.9 cm??? LV Ejection Fraction MOD 4C 55.2 % LV Cardiac Index MOD 4C 1707.3 cm???/min???m??? LV Diastolic Length 4C 8.8 cm LV Systolic Length 4C 8.7 cm LV Diastolic Volume MOD 2C 113.9 cm??? LV Systolic Volume MOD 2C 58.7 cm??? LV Ejection Fraction MOD 2C 48.5 % LV Cardiac Index MOD 2C 1533.8 cm???/min???m??? LV Diastolic Length 2C 9.8 cm LV Systolic Length 2C 8.3 cm LA Volume 72.5 cm??? 18 - 58 / 22 - 52 cm??? LA Volume Index 33.6 cm???/m??? 16 - 28 cm???/m??? M-MODE Aortic Root Diameter MM 3.6 cm MV E Point Septal Separation 1.0 cm AV Cusp Separation MM 2.0 cm DOPPLER AV Peak Velocity 125.1 cm/s AV Peak Gradient 6.3 mmHg MV Area PHT 1.9 cm??? Mitral E Point Velocity 55.3 cm/s Mitral A Point Velocity 88.3 cm/s Mitral E to A Ratio 0.6 MV Deceleration Time 403.2 ms MV E' Velocity 2.5 cm/s Mitral E to MV E' Ratio 21.8 FINDINGS Left Ventricle Left ventricular ejection fraction is estimated at 50-55 %. Severe concentric LVH. No concerns of LVOT obstructions. Inferior wall hypokinesia Right Ventricle Normal right ventricular size. Unable to estimate the right ventricular systolic pressure. Right Atrium Normal right atrial size. Left Atrium Mildly increased left atrial diameter. Mildly increased left atrial volume. Mildly increased left atrial area. Mitral Valve Structurally normal mitral valve. No mitral stenosis, regurgitation or prolapse. Aortic Valve Trileaflet aortic valve. No aortic valve stenosis or regurgitation. Tricuspid Valve Structurally normal tricuspid valve. No tricuspid regurgitation. Pulmonic Valve Structurally normal pulmonic valve. No pulmonic regurgitation. Pericardium No pericardial effusion. Aorta Normal size aortic root and proximal ascending aorta. CONCLUSIONS Left ventricular ejection fraction is estimated at 50-55 %. Severe concentric LVH, no LVOT obstruction Inferior wall hypokinesia Mild left atrial dilatation dilatation No significant valvular dysfunction Previewed by: Dr Julian Briones (Electronically Signed) Final Date: 28 October 2023 16:56
[2023-10-28 20:12] LABS: Glucose,Whole Blood 353 mg/dL (70-110)
[2023-10-28] MEDS ORDERED: LABETALOL 5 MG/ML VIAL MDV IVP STA (20:25)
--- NOTE | 2023-10-28 21:41 | XR ---
EXAMINATION TYPE: XR abdomen acute w cxr DATE OF EXAM: 10/28/2023 9:03 PM CLINICAL INDICATION:Female, 53 years old with history of abdominal pain and nausea; PHH COMPARISON: None. TECHNIQUE: Two radiographic views of the abdomen (upright and supine) and a frontal chest radiograph were obtained. FINDINGS CHEST: Lungs/Pleura: The lungs are clear. There is no evidence of pleural effusion, focal consolidation or p neumothorax. Mediastinum: Unremarkable. Vasculature: Normal. Heart: Normal in size. Musculoskeletal: The osseous structures are intact. Other findings: No significant. FINDINGS ABDOMEN: Bowel gas pattern: Normal without dilated loops of small or large bowel. Fecal material and gas are d emonstrated throughout the colon and rectum. Abnormal calcifications: None. Musculoskeletal: Normal. Other: Atherosclerosis of the arterial vasculature. Right upper quadrant cholecystectomy clips. IMPRESSION: 1. No radiographic evidence for acute abdominal process. 2. No acute cardiopulmonary process
[2023-10-28] MEDS ORDERED: hydrALAZINE HCL 50 MG TAB PO SCH (22:00)
[2023-10-28] MEDS ORDERED: hydrALAZINE HCL 20 MG/ML 1 ML VIAL IVP PRN (22:03)
[2023-10-28] MEDS: ONDANSETRON 4 MG/2 ML VIAL IVP PRN (22:42)
[2023-10-28] MEDS: HEPARIN SODIUM 1,000 UN/ML (10ML VL) IV PRN (22:43)
[2023-10-28] MEDS: SENNOSIDES 8.6 MG TAB PO SCH (22:58)
[2023-10-28] MEDS: ARIPiprazole 2 MG TAB PO SCH (23:38)
[2023-10-29] MEDS ORDERED: BARIUM SULFATE 2% - 450 ML ORAL.SUSP BOTTLE PO PRN (03:00)
[2023-10-29 03:16] LABS: HCT 49.3 % (34.0-46.0); HGB 16.8 gm/dL (11.4-16.0); MCV 97.1 fL (80.0-100.0); Mean Platelet Volume 10.8; Platelet Count 269 k/uL (150-450); RBC 5.08 m/uL (3.80-5.40); RDW 13.8 % (11.5-15.5); WBC 17.5 k/uL (3.8-10.6)
[2023-10-29] MEDS: hydrALAZINE HCL 20 MG/ML 1 ML VIAL IVP PRN ×2 (03:40→11:27)
[2023-10-29] MEDS ORDERED: SODIUM CHLORIDE 0.9% 1,000 ML in EMPTY BAG 1 BAG IV SCH (04:00)
[2023-10-29] MEDS ORDERED: methylPREDNISolone SOD SUCCI 125 MG/2 ML VIAL IV STA (04:00)
[2023-10-29] MEDS ORDERED: diphenhydrAMINE 50 MG/ML 1 ML VIAL IVP STA (04:00)
[2023-10-29] MEDS ORDERED: FAMOTIDINE 20 MG/2 ML VIAL IV STA (04:07)
[2023-10-29 05:54] LABS: Glucose,Whole Blood 343 mg/dL (70-110)
[2023-10-29] MEDS: HYDROcodone/APAP 5-325MG 1 EACH TAB PO PRN (06:39)
[2023-10-29] MEDS: carvediloL 12.5 MG TAB PO SCH ×2 (06:40→16:44)
[2023-10-29] MEDS: INSULIN PUMP MEAL BOLUS 1 UNIT MISC MISCELLANE SCH ×4 (06:43→20:12)
[2023-10-29] MEDS ORDERED: HEPARIN SODIUM,PORCINE (1 ML) 2,500 UNIT in SODIUM CHLORIDE 0.9% 250 ML IRRIGATION PRN (07:00)
[2023-10-29] MEDS ORDERED: HEPARIN SODIUM,PORCINE 10,000 UNIT in SODIUM CHLORIDE 0.9% 1,000 ML IRRIGATION PRN (07:00)
[2023-10-29] MEDS: ASPIRIN 81 MG PO SCH (07:37)
[2023-10-29] MEDS: SENNOSIDES 8.6 MG TAB PO SCH ×2 (07:37→19:56)
[2023-10-29 07:46] LABS: Basophils % (A) 0 %; Eosinophils % (A) 0 %; HCT 52.5 % (34.0-46.0); HGB 17.4 gm/dL (11.4-16.0); Lymphocytes % (A) 5 %; MCH 32.1 pg (25.0-35.0); MCHC 33.2 g/dL (31.0-37.0); MCV 96.8 fL (80.0-100.0); Mean Platelet Volume 11.5; Monocytes # (A) 0.4 k/uL (0-1.0); Monocytes % (A) 2 %; Neutrophils # (A) 17.4 k/uL (1.3-7.7); Neutrophils % (A) 92 %; Platelet Count 348 k/uL (150-450); RBC 5.43 m/uL (3.80-5.40); RDW 13.9 % (11.5-15.5); WBC 18.9 k/uL (3.8-10.6)
[2023-10-29] MEDS: LOSARTAN 50 MG TAB PO SCH (07:51)
[2023-10-29] MEDS: ATORVASTATIN 40 MG TAB PO SCH (07:51)
[2023-10-29] MEDS: LACOSAMIDE 50 MG TABLET PO SCH ×2 (07:51→19:56)
--- NOTE | 2023-10-29 07:51 | CT ---
EXAMINATION TYPE: CT abdomen pelvis w con DATE OF EXAM: 10/29/2023 COMPARISON: 08/19/2023 INDICATION: possible blood in vomit DLP: 1972.8 mGycm, Automated exposure control for dose reduction was used. CONTRAST: 100 ml mL of Isovue 300. Study performed without Oral Contrast TECHNIQUE: Axial images were obtained from above the diaphragm to the pubic rami in the axial plane a t 5 mm thick sections. Reconstructed images are reviewed on the computer in the coronal plane. FINDINGS: Limited CT sections are obtained the lung bases. The lung bases are clear. CT ABDOMEN: Liver: Normal Spleen: Normal. Splenule is spine hilum. Pancreas: Normal Adrenal glands: The adrenal glands are normal. Gallbladder: Surgically absent Kidneys: No masses are evident. No hydronephrosis is present. No cysts are present. Delayed images were obtained through the kidneys, which remain unremarkable. Aorta: Vascular calcification is within the aorta. Inferior vena cava: Normal. CT PELVIS: Loops of bowel within the abdomen and pelvis are normal. The study is without oral contrast limit ing pathology evaluation. Appendix: Normal as visualized. Urinary bladder: Normal. Genitourinary structures: Uterus and ovaries are not identified Osseous structures: No suspicious lytic or sclerotic lesions. Facet degenerative changes lumbar spine IMPRESSION: 1. No suspicious acute changes
[2023-10-29] MEDS: amLODIPine 5 MG TAB PO SCH (07:52)
[2023-10-29] MEDS: ONDANSETRON 4 MG/2 ML VIAL IVP PRN (07:52)
[2023-10-29] MEDS: PANTOPRAZOLE 40 MG/10 ML VIAL IVP SCH ×2 (07:52→19:55)
[2023-10-29] MEDS: lamoTRIgine 100 MG TAB PO SCH ×2 (07:52→19:56)
[2023-10-29 08:38] LABS: African American GFR (CKD) 51 (>60 ml/min/1.73 sqM); Anion Gap 15 mmol/L; Blood Urea Nitrogen 23 mg/dL (7-17); Calcium 10.9 mg/dL (8.4-10.2); Carbon Dioxide 20 mmol/L (22-30); Chloride 102 mmol/L (98-107); Glucose 353 mg/dL (74-99); Non-African American GFR(CKD) 44 (>60 ml/min/1.73 sqM); Potassium 4.1 mmol/L (3.5-5.1); Sodium 137 mmol/L (137-145)
[2023-10-29] MEDS ORDERED: cloNIDine 0.3 MG/24HR PATCH TRANSDERM SCH (09:00)
[2023-10-29] MEDS ORDERED: FAMOTIDINE 20 MG TAB PO SCH (09:00)
[2023-10-29] MEDS: SYMBICORT 160-4.5 MCG INHALER INHALATION SCH ×2 (09:02→21:36)
[2023-10-29] MEDS: INSULIN LISPRO (For Pump) 100 UNIT/ML VIAL SQ-PUMP SCH (11:16)
[2023-10-29] MEDS: HYDROmorphone 2 MG TAB PO PRN (11:25)
[2023-10-29 11:34] LABS: Glucose,Whole Blood 375 mg/dL (70-110)
[2023-10-29 12:10] VITALS: BMI 29.2
--- NOTE | 2023-10-29 12:12 | P.PN ---
Subjective Progress Note Date: 10/29/23 Progress note Patient is currently stable from cardiac vessel standpoint. She is still hypertensive. BP 175/84 Heart rate 63 beats a minute HISTORY OF PRESENTING ILLNESS 53-year-old female with past medical history of CAD status post PCI to LAD, diagonal and RCA. She is known to Dr. Serrano. She is also a smoker. Morbid obesity She also has a prior history of CVA, hypertension, dyslipidemia, type 2 diabetes, morbid obesity. This time she present to the hospital because of 4 days of worsening shortness of breath and substernal chest heaviness. Next this morning patient reported significant chest pain which was 10 over 10 in severity along with shortness of breath therefore she came to the hospital On admission she was noticed to be hypertensive with a SBP in the range of 200s. Her labs showed a creatinine of 1.18, troponin of 0.1, 0.3. Hemoglobin 15 Bedside echocardiogram showed possible anteroseptal wall hypokinesia with EF of 45-50% Last echo from January 2023 shows an EF of 55% with severe left atrial dilatation ECG shows sinus rhythm with right bundle branch block, , LVH, left axis deviation 1/2 This morning, patient developed coffee-ground emesis and high blood pressure readings. She was scheduled for cardiac catheterization today with Dr. Moseley, which was canceled. Heparin was discontinued and patient has been on a nitroglycerin drip since 10/27. Patient denies having any chest pain. Last evening, patient received IV hydralazine, IV labetalol. Hemoglobin this morning is at 17.4 and WBC 18.9. BUN 23 creatinine 1.38. Triglycerides 375, cholesterol 248, LDL 121 and HDL 37. TSH was 2.82. Heart rate is between 89 and 101, blood pressure 195/96. PHYSICAL EXAMINATION Vital signs reviewed. Head: Normocephalic. Eyes: Sclerae nonicteric. Neck: Brisk carotid upstroke, no jugular venous distention. Lungs: Clear to auscultation. Heart: Regular rate and rhythm, S1-S2, no S3, no murmur or rub. Abdomen: Soft nontender, positive bowel sounds no organomegaly. Extremities: No edema, intact distal pulses. Neuro: Alert, oritented, no focal deficits ASSESSMENT NSTEMI Prior CAD status post PCI to LAD, RCA, diagonal Prior history of CVA Hypertensive urgency on admission, but controlled now Morbid obesity Type II Diabetes Noncompliance Tobacco smoker Acute GI bleed PLAN Continue aspirin, atorvastatin. Continue Coreg 25 mg twice a day Continue losartan 50 mg and amlodipine 5 mg daily Discontinue IV nitroglycerin Start patient on clonidine patch 0.3 mg per 24-hour as patient may not be keeping her medications down Heparin drip has been discontinued due to GI bleed Cancel cardiac catheterization scheduled for today GI bleed workup per attending. Nurse practitioner note has been reviewed, I agree with the documented findings and plan of care. Patient was seen and examined. Objective - Vital Signs Vital signs: Vital Signs Temp 98.5 F 10/29/23 04:00 Pulse 89 10/29/23 04:00 Resp 18 10/29/23 04:00 BP 179/72 10/29/23 04:33 Pulse Ox 94 L 10/29/23 04:00 FiO2 Intake & Output 10/28/23 10/29/23 10/29/23 18:59 06:59 18:59 Intake Total 672.096 217.391 70.476 Output Total 250 Balance 672.096 -32.609 70.476 Weight 82 kg Intake: Intake, IV Titration 196.096 217.391 70.476 Amount Heparin Sod,Pork in 0.45% 162.346 217.391 70.476 NaCl 25,000 unit In 0.45 % NaCl 1 250ml.bag @ 10. 35 UNITS/KG/HR 10 mls/hr IV .Q24H [facility] Rx#: [id number] Nitroglycerin-D5w Pmx 50 33.75 mg In Dextrose/Water 1 250ml.bag @ 5 MCG/MIN 1.5 mls/hr IV .Q24H SARAHY Rx#: [id number] Oral 476 Output: Emesis 250 Other: Voiding Method Bedside Commode Bedside Commode # Voids 1 1 1 # Bowel Movements 1 1 1 - Labs CBC & Chem 7: 10/29/23 06:48 10/29/23 06:48 Labs: Abnormal Lab Results - Last 24 Hours (Table) 10/28/23 10/28/23 10/28/23 Range/Units 07:41 11:08 15:10 WBC (3.8-10.6) k/uL RBC (3.80-5.40) m/uL Hgb (11.4-16.0) gm/dL Hct (34.0-46.0) % Neutrophils # (1.3-7.7) k/uL APTT 40.6 H (22.0-30.0) sec Sodium 136 L (137-145) mmol/L Chloride 108 H (98-107) mmol/L Carbon Dioxide 19 L (22-30) mmol/L BUN 21 H (7-17) mg/dL Creatinine 1.32 H (0.52-1.04) mg/dL Glucose 300 H (74-99) mg/dL POC Glucose (mg/dL) 274 H (70-110) mg/dL Calcium (8.4-10.2) mg/dL Triglycerides 675.00 H (0.00-149.00) mg/dL Cholesterol 248.00 H (0.00-200.00) mg/dL VLDL Cholesterol, Calc 135.00 H (5.00-40.00) mg/dL HDL Cholesterol 37.90 L (40.00-60.00) mg/dL 10/28/23 10/28/23 10/28/23 Range/Units 16:04 20:11 22:08 WBC (3.8-10.6) k/uL RBC (3.80-5.40) m/uL Hgb (11.4-16.0) gm/dL Hct (34.0-46.0) % Neutrophils # (1.3-7.7) k/uL APTT 38.4 H (22.0-30.0) sec Sodium (137-145) mmol/L Chloride (98-107) mmol/L Carbon Dioxide (22-30) mmol/L BUN (7-17) mg/dL Creatinine (0.52-1.04) mg/dL Glucose (74-99) mg/dL POC Glucose (mg/dL) 279 H 353 H (70-110) mg/dL Calcium (8.4-10.2) mg/dL Triglycerides (0.00-149.00) mg/dL Cholesterol (0.00-200.00) mg/dL VLDL Cholesterol, Calc (5.00-40.00) mg/dL HDL Cholesterol (40.00-60.00) mg/dL 10/29/23 10/29/23 10/29/23 Range/Units 02:47 02:47 05:52 WBC 17.5 H (3.8-10.6) k/uL RBC (3.80-5.40) m/uL Hgb 16.8 H (11.4-16.0) gm/dL Hct 49.3 H (34.0-46.0) % Neutrophils # (1.3-7.7) k/uL APTT 54.0 H (22.0-30.0) sec Sodium (137-145) mmol/L Chloride (98-107) mmol/L Carbon Dioxide (22-30) mmol/L BUN (7-17) mg/dL Creatinine (0.52-1.04) mg/dL Glucose (74-99) mg/dL POC Glucose (mg/dL) 343 H (70-110) mg/dL Calcium (8.4-10.2) mg/dL Triglycerides (0.00-149.00) mg/dL Cholesterol (0.00-200.00) mg/dL VLDL Cholesterol, Calc (5.00-40.00) mg/dL HDL Cholesterol (40.00-60.00) mg/dL 10/29/23 10/29/23 Range/Units 06:48 06:48 WBC 18.9 H (3.8-10.6) k/uL RBC 5.43 H (3.80-5.40) m/uL Hgb 17.4 H (11.4-16.0) gm/dL Hct 52.5 H (34.0-46.0) % Neutrophils # 17.4 H (1.3-7.7) k/uL APTT (22.0-30.0) sec Sodium (137-145) mmol/L Chloride (98-107) mmol/L Carbon Dioxide 20 L (22-30) mmol/L BUN 23 H (7-17) mg/dL Creatinine 1.38 H (0.52-1.04) mg/dL Glucose 353 H (74-99) mg/dL POC Glucose (mg/dL) (70-110) mg/dL Calcium 10.9 H (8.4-10.2) mg/dL Triglycerides (0.00-149.00) mg/dL Cholesterol (0.00-200.00) mg/dL VLDL Cholesterol, Calc (5.00-40.00) mg/dL HDL Cholesterol (40.00-60.00) mg/dL
--- NOTE | 2023-10-29 15:37 | P.GSCN ---
History of Present Illness Consult date: 10/29/23 History of present illness: CHIEF COMPLAINT: Chest pain Reason for consult: Coffee-ground emesis HISTORY OF PRESENT ILLNESS: This is a 53-year-old female who presented with chest pain that radiated to the left arm. She was diagnosed with an non-STEMI and started on IV heparin. Patient had been having vomiting for 2 days and then after starting on the IV heparin patient's emesis became very dark coffee ground and appearance. Hemoglobin has remained stable and in fact has gone up from 16- 17. She does report taking naproxen daily at home. Her last EGD was in February 2022 with evidence of hiatal hernia and gastritis. Patient's heart catheterization was canceled today. IV heparin has been placed on hold. And cardiology has adjusted medications for her elevated blood pressure. Patient does report pain above the umbilicus area. 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 PAST SURGICAL HISTORY: Section, Cholecystectomy, Heart Catheterization With Stent, Hysterectomy, Tubal Ligation, Uterine Ablation MEDICATIONS: See below ALLERGIES: See below SOCIAL HISTORY: No illicit drug use. REVIEW OF SYSTEMS: CONSTITUTIONAL: Denies fever or chills. HEENT: Denies blurred vision, vision changes, or eye pain. Denies hemoptysis CARDIOVASCULAR: Denies chest pain or pressure. RESPIRATORY: No shortness of breath. GASTROINTESTINAL: See HPI for pertinent findings HEMATOLOGIC: Denies bleeding disorders. GENITOURINARY: Denies any blood in urine or increased urinary frequency. SKIN: Denies pruitis. Denies rash. PHYSICAL EXAM: VITAL SIGNS: Reviewed GENERAL: Well-developed in no acute distress. ABDOMEN: Soft. Nondistended. Diffuse tenderness but more tender about the umbilicus area and mid lower abdomen NEUROLOGIC: Alert and oriented. Cranial nerves II through XII grossly intact. LABORATORY DATA: WBC elevated from 17.5 -18.9 Hgb 16.8-17.4 platelets 348 Sodium 137 potassium 4.1 creatinine 1.38 glucose 375 Elevated troponins IMAGING: Computed tomography scan abdomen and pelvis negative ASSESSMENT: 1. Coffee ground emesis 2. NSTEMI 3. Daily NSAID use 4. History of gastritis and hiatal hernia PLAN: -If needed will plan for EGD on with Dr. Jennings -Hold IV Heparin -No NSAIDS -Continue IV Protonix twice a day -Continue monitor hemoglobin -Continue to monitor for any signs or symptoms of bleeding Thank you for this consultation Physician Graduate Student note has been reviewed by physician. Signing provider agrees with the documented findings, assessment, and plan of care. 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 Last Myocardial Infarction Date:: Pt thinks 2015 History of Any Multi-Drug Resistant Organisms: None Reported Past Surgical History: Section, Cholecystectomy, Heart Catheterization With Stent, Hysterectomy, Tubal Ligation, Uterine Ablation Additional Past Surgical History / Comment(s): vein stripping right leg, radio frequency ablation of right back-02/22/2015, four stents on 04/03/16 and one on march 05, ovaries removed, colonscopy- polyp removal Past Anesthesia/Blood Transfusion Reactions: Motion Sickness Additional Past Anesthesia/Blood Transfusion Reaction / Comm: mild claustrophobia Date of Last Stent Placement:: 04/03/16 Past Psychological History: Anxiety, Depression Smoking Status: Current every day smoker Past Alcohol Use History: None Reported Past Drug Use History: None Reported - Past Family History Father Family Medical History: Congestive Heart Failure (CHF), Coronary Artery Disease (CAD), Diabetes Mellitus Mother Family Medical History: Cancer, COPD, Hypertension, Respiratory Disorder Additional Family Medical History / Comment(s): emphysema, colon CA Medications and Allergies Home Medications Medication Instructions Recorded Confirmed Type Aspirin [Adult Low Dose Aspirin EC] 81 mg PO DAILY 11/26/17 10/27/23 History DULoxetine HCL [Cymbalta] 60 mg PO DAILY 08/25/18 10/27/23 History Isosorbide Mononitrate ER [Imdur] 60 mg PO DAILY 09/08/18 10/27/23 History ARIPiprazole [Abilify] 2 mg PO HS 11/08/20 10/27/23 History Albuterol Nebulized [Ventolin 2.5 mg INHALATION RT-QID PRN 10/06/22 10/27/23 History Nebulized] Empagliflozin [Jardiance] 10 mg PO DAILY 10/06/22 10/27/23 History Famotidine 20 mg PO BID 10/06/22 10/27/23 History Nitroglycerin Sl Tabs [Nitrostat] 0.4 mg SL Q5M PRN 10/06/22 10/27/23 History Pioglitazone [Actos] 15 mg PO DAILY 10/06/22 10/27/23 History Lacosamide [Vimpat] 50 mg PO BID 28 Days #14 tab 10/18/22 10/27/23 Rx Fenofibrate [Lofibra] 160 mg PO DAILY 01/25/23 10/27/23 History Multivit-Min/Folic Acid/Zhk162 1 tab PO DAILY 01/25/23 10/27/23 History [Alive Premium Adult Multivit] Rimegepant Sulfate [Nurtec Odt] 75 mg PO DAILY PRN 01/25/23 10/27/23 History lamoTRIgine [LaMICtal Xr] 250 mg PO DAILY 01/25/23 10/27/23 History ALPRAZolam [Xanax] 2 mg PO HS PRN 02/05/23 10/27/23 History Pregabalin [Lyrica] 150 mg PO BID 02/05/23 10/27/23 History carvediloL [Coreg] 25 mg PO BID 02/05/23 10/27/23 History Atorvastatin [Lipitor] 20 mg PO HS 07/17/23 10/27/23 History Budesonide/Formoterol Fumarate 2 puff INHALATION RT-BID 07/17/23 10/27/23 History [Symbicort 160-4.5 Mcg Inhaler] Furosemide [Lasix] 20 mg PO DAILY PRN 07/17/23 10/27/23 History INSULIN LISPRO (For Pump) [humaLOG 0.01 units SQ-PUMP CONTINUOUS 07/17/23 10/27/23 History (For Pump)] Promethazine/Dextromethorphan 5 ml PO Q6H PRN 07/17/23 10/27/23 History [Promethazine-Dm 6.25-15 mg/5Ml] cloNIDine 0.1 MG/24HR PATCH 0.1 mg TRANSDERM TH 07/17/23 10/27/23 History [Catapres-TTS] HYDROmorphone [Dilaudid] 2 mg PO BID PRN 10/27/23 10/27/23 History Sucralfate [Carafate] 1 gm PO ACHS 10/27/23 10/27/23 History Allergies Allergy/AdvReac Type Severity Reaction Status Date / Time Fish Containing Products Allergy Anaphylaxis Verified 10/27/23 14:31 Iodinated Contrast Media Allergy Anaphylaxis Verified 10/27/23 14:31 [Iodinated Contrast Media - IV Dye] Sulfa (Sulfonamide Allergy Anaphylaxis Verified 10/27/23 14:31 Antibiotics) sulfamethoxazole Allergy Anaphylaxis Verified 10/27/23 14:31 [From Septra] tree nut [Nut] Allergy Anaphylaxis Verified 10/27/23 14:31 trimethoprim [From Junra] Allergy Anaphylaxis Verified 10/27/23 14:31 Surgical - Exam Vital Signs Temp Pulse Resp BP Pulse Ox 98.3 F 79 18 213/89 96 10/27/23 10:41 10/27/23 10:41 10/27/23 10:41 10/27/23 10:41 10/27/23 10:41 Results - Labs 10/29/23 06:48 10/29/23 06:48 Abnormal Lab Results - Last 24 Hours (Table) 10/28/23 10/28/23 10/28/23 Range/Units 07:41 15:10 16:04 WBC (3.8-10.6) k/uL RBC (3.80-5.40) m/uL Hgb (11.4-16.0) gm/dL Hct (34.0-46.0) % Neutrophils # (1.3-7.7) k/uL APTT 40.6 H (22.0-30.0) sec Sodium 136 L (137-145) mmol/L Chloride 108 H (98-107) mmol/L Carbon Dioxide 19 L (22-30) mmol/L BUN 21 H (7-17) mg/dL Creatinine 1.32 H (0.52-1.04) mg/dL Glucose 300 H (74-99) mg/dL POC Glucose (mg/dL) 279 H (70-110) mg/dL Calcium (8.4-10.2) mg/dL Triglycerides 675.00 H (0.00-149.00) mg/dL Cholesterol 248.00 H (0.00-200.00) mg/dL VLDL Cholesterol, Calc 135.00 H (5.00-40.00) mg/dL HDL Cholesterol 37.90 L (40.00-60.00) mg/dL 10/28/23 10/28/23 10/29/23 Range/Units 20:11 22:08 02:47 WBC (3.8-10.6) k/uL RBC (3.80-5.40) m/uL Hgb (11.4-16.0) gm/dL Hct (34.0-46.0) % Neutrophils # (1.3-7.7) k/uL APTT 38.4 H 54.0 H (22.0-30.0) sec Sodium (137-145) mmol/L Chloride (98-107) mmol/L Carbon Dioxide (22-30) mmol/L BUN (7-17) mg/dL Creatinine (0.52-1.04) mg/dL Glucose (74-99) mg/dL POC Glucose (mg/dL) 353 H (70-110) mg/dL Calcium (8.4-10.2) mg/dL Triglycerides (0.00-149.00) mg/dL Cholesterol (0.00-200.00) mg/dL VLDL Cholesterol, Calc (5.00-40.00) mg/dL HDL Cholesterol (40.00-60.00) mg/dL 10/29/23 10/29/23 10/29/23 Range/Units 02:47 05:52 06:48 WBC 17.5 H 18.9 H (3.8-10.6) k/uL RBC 5.43 H (3.80-5.40) m/uL Hgb 16.8 H 17.4 H (11.4-16.0) gm/dL Hct 49.3 H 52.5 H (34.0-46.0) % Neutrophils # 17.4 H (1.3-7.7) k/uL APTT (22.0-30.0) sec Sodium (137-145) mmol/L Chloride (98-107) mmol/L Carbon Dioxide (22-30) mmol/L BUN (7-17) mg/dL Creatinine (0.52-1.04) mg/dL Glucose (74-99) mg/dL POC Glucose (mg/dL) 343 H (70-110) mg/dL Calcium (8.4-10.2) mg/dL Triglycerides (0.00-149.00) mg/dL Cholesterol (0.00-200.00) mg/dL VLDL Cholesterol, Calc (5.00-40.00) mg/dL HDL Cholesterol (40.00-60.00) mg/dL 10/29/23 10/29/23 Range/Units 06:48 11:24 WBC (3.8-10.6) k/uL RBC (3.80-5.40) m/uL Hgb (11.4-16.0) gm/dL Hct (34.0-46.0) % Neutrophils # (1.3-7.7) k/uL APTT (22.0-30.0) sec Sodium (137-145) mmol/L Chloride (98-107) mmol/L Carbon Dioxide 20 L (22-30) mmol/L BUN 23 H (7-17) mg/dL Creatinine 1.38 H (0.52-1.04) mg/dL Glucose 353 H (74-99) mg/dL POC Glucose (mg/dL) 375 H (70-110) mg/dL Calcium 10.9 H (8.4-10.2) mg/dL Triglycerides (0.00-149.00) mg/dL Cholesterol (0.00-200.00) mg/dL VLDL Cholesterol, Calc (5.00-40.00) mg/dL HDL Cholesterol (40.00-60.00) mg/dL Diabetes panel 10/28/23 10/29/23 Range/Units 07:41 06:48 Sodium 136 L 137 (137-145) mmol/L Potassium 4.2 4.1 (3.5-5.1) mmol/L Chloride 108 H 102 (98-107) mmol/L Carbon Dioxide 19 L 20 L (22-30) mmol/L BUN 21 H 23 H (7-17) mg/dL Creatinine 1.32 H 1.38 H (0.52-1.04) mg/dL Glucose 300 H 353 H (74-99) mg/dL Calcium 10.2 10.9 H (8.4-10.2) mg/dL Triglycerides 675.00 H (0.00-149.00) mg/dL HDL Cholesterol 37.90 L (40.00-60.00) mg/dL Thyroid panel 10/28/23 Range/Units 07:41 TSH 2.820 (0.465-4.680) mIU/L Calcium panel 10/28/23 10/29/23 Range/Units 07:41 06:48 Calcium 10.2 10.9 H (8.4-10.2) mg/dL Pituitary panel 10/28/23 10/29/23 Range/Units 07:41 06:48 Sodium 136 L 137 (137-145) mmol/L Potassium 4.2 4.1 (3.5-5.1) mmol/L Chloride 108 H 102 (98-107) mmol/L Carbon Dioxide 19 L 20 L (22-30) mmol/L BUN 21 H 23 H (7-17) mg/dL Creatinine 1.32 H 1.38 H (0.52-1.04) mg/dL Glucose 300 H 353 H (74-99) mg/dL Calcium 10.2 10.9 H (8.4-10.2) mg/dL TSH 2.820 (0.465-4.680) mIU/L Adrenal panel 10/28/23 10/29/23 Range/Units 07:41 06:48 Sodium 136 L 137 (137-145) mmol/L Potassium 4.2 4.1 (3.5-5.1) mmol/L Chloride 108 H 102 (98-107) mmol/L Carbon Dioxide 19 L 20 L (22-30) mmol/L BUN 21 H 23 H (7-17) mg/dL Creatinine 1.32 H 1.38 H (0.52-1.04) mg/dL Glucose 300 H 353 H (74-99) mg/dL Calcium 10.2 10.9 H (8.4-10.2) mg/dL
--- NOTE | 2023-10-29 16:15 | P.PN ---
Subjective Progress Note Date: 10/29/23 Patient is a 53-year-old female with a past medical history of coronary artery disease with stent placement x 5, history MA x 5 hypertension, diabetes on insulin pump, history of DVT, fibromyalgia, hypertension, hyperlipidemia, obstructive sleep apnea on CPAP, history of cervical/ovarian cancer, factor V Leiden blood disorder with history of DVTs, CVA with residual right-sided weakness, diabetic peripheral neuropathy, anxiety/depression currently everyday smoker. Patient presented to ER with complaints of chest pain mainly across the arms, upper chest. Pain started last night and was on and off for about 15 minutes. Patient states that pain along the upper arms and felt heaviness in the chest. Patient was able to get back to bed last night and started having pain again this morning. Pain was associated with shortness of breath and nausea. Patient states that she was also diaphoretic. Patient's took blood pressure and was told it was elevated. Did take nitroglycerin without much help. Patient presented to ER for further evaluation. EKG showed sinus rhythm with right bundle branch block, LVH. Chest x-ray showed no acute cardiopulmonary process/disease. Patient otherwise denies any cough or sputum production. No fever no chills. Denies any recent major illnesses. Abdominal pain or diarrhea. No vomiting episodes. Laboratory showed WBC 13.1 hemoglobin 15.4 and platelets 254 Sodium 137 potassium 4.4 chloride 109 bicarb is 19 BUN 16 and creatinine 1.18 and blood sugar is 316 Magnesium 1.6 Troponin 0.153, 0.319 and 0.355 Albumin 3.1 Urinalysis showed 3+ protein 4+ glucose and small blood. 10/29/2023 Patient is seen in follow-up this morning was admitted for chest pain being followed by cardiology and also had found to have accelerated hypertension, present on admission. General surgery was consulted as patient was having some abdominal pain underwent CT abdomen as well as ultrasound which have been negative for any acute findings. Patient was scheduled initially to have cardiac catheterization possibly today although blood pressures continue to remain extremely high and uncontrolled. Medication adjustments being made and possibly being planned for cardiac catheterization in the a.m. Patient reports to feeling improved and denies any chest pain currently. Blood sugars remain elevated as well and patient appears uncontrolled. Will adjust medications appropriately and continue monitoring Accu-Cheks before meals and at bedtime Review of systems: Constitutional: No reports of fatigue, fever, or chills Cardiovascular: No reports of chest pain or palpitations Respiratory: No reports of shortness of breath or cough GI: No reports of nausea, vomiting, or diarrhea : No reports of dysuria or retention Neurovascular: reports of generalized weakness All medications have been reviewed PHYSICAL EXAMINATION: Patient is lying in the bed comfortably, no acute distress, awake alert and oriented. obese. HEENT: Normocephalic. Neck is supple. Pupils reactive. Nostrils clear. Oral cavity is moist. Neck reveals no JVD, carotid bruits, or thyromegaly. CHEST EXAMINATION: Trachea is central. Symmetrical expansion. Bibasilar diminished sounds and scattered coarse sounds.. CARDIAC: Normal S1, S2 with no gallops. No murmurs ABDOMEN: Soft. Bowel sounds present. Nontender. No organomegaly. No abdominal bruits. Extremities: reveal no edema. No clubbing or cyanosis Neurologically awake, alert, oriented x3 with well-coordinated movements. No focal deficits noted Skin: No rash or skin lesions. Psychiatric: Cooperative. Non-suicidal, Musculoskeletal: No joint swelling or deformity. Normal range of motion. Assessment: Acute non-ST elevated MA Hypertensive emergency on admission blood pressure 213/89 Hyperglycemia with uncontrolled diabetes. Patient is on insulin pump Coronary artery disease with prior history of stent placement x 5 History of MA x 5 Factor V Leyden disorder with prior history of DVTs on anticoagulation Fibromyalgia Chronic pain History of CVA with right-sided residual weakness Hyperlipidemia GERD Bilateral peripheral diabetic neuropathy Obstructive sleep apnea on CPAP at home Peripheral artery disease History of ovarian/cervical/uterine cancer Ongoing nicotine addiction Obesity with a BMI of 34.4 GI prophylaxis. DVT prophylaxis patient is already on Eliquis Plan: Patient will be continued on telemonitoring. Continue with serial EKG and troponin x 3. Patient was started on heparin drip and also nitroglycerin drip. Cardiology following leaking adjustments to medications with blood pressures co ntinue to be completely uncontrolled and was scheduled initially for possible cardiac catheterization today and will reevaluate after adjustments to medications have been made with possible catheterization in the a.m. Continue with aspirin, statin and Coreg. Patient is also on clonidine patch q. 7-day. Continue monitoring Accu-Cheks before meals and at bedtime and patient is maintained on insulin pump. Need tighter glycemic control Chronic pain management with Dilaudid 2 mg twice daily as per her home regimen. Due to multiple complex medical issues, prognosis is guarded The impression and plan of care has been dictated by Khushboo Patel, Nurse Practitioner as directed. Dr. Annalee MD I have performed a history and examination and MDM of this patient, discussed the same with the dictator, and agree with the dictator's assessment and plan as written ,documented as a scribe. Based on total visit time, I have performed more than 50% of the visit. Objective - Vital Signs Vital signs: Vital Signs Temp 98.3 F 10/29/23 07:30 Pulse 101 H 10/29/23 07:30 Resp 18 10/29/23 07:30 BP 195/96 10/29/23 07:30 Pulse Ox 89 L 10/29/23 07:30 FiO2 Intake & Output 10/28/23 10/29/23 10/29/23 18:59 06:59 18:59 Intake Total 672.096 217.391 70.476 Output Total 250 Balance 672.096 -32.609 70.476 Weight 82 kg Intake: Intake, IV Titration 196.096 217.391 70.476 Amount Heparin Sod,Pork in 0.45% 162.346 217.391 70.476 NaCl 25,000 unit In 0.45 % NaCl 1 250ml.bag @ 10. 35 UNITS/KG/HR 10 mls/hr IV .Q24H SARAHY Rx#: [id number] Nitroglycerin-D5w Pmx 50 33.75 mg In Dextrose/Water 1 250ml.bag @ 5 MCG/MIN 1.5 mls/hr IV .Q24H SARAHY Rx#: [id number] Oral 476 Output: Emesis 250 Other: Voiding Method Bedside Commode Bedside Commode # Voids 1 1 1 # Bowel Movements 1 1 1 - Labs CBC & Chem 7: 10/29/23 06:48 10/29/23 06:48 Labs: Abnormal Lab Results - Last 24 Hours (Table) 10/28/23 10/28/23 10/28/23 Range/Units 07:41 11:08 15:10 WBC (3.8-10.6) k/uL RBC (3.80-5.40) m/uL Hgb (11.4-16.0) gm/dL Hct (34.0-46.0) % Neutrophils # (1.3-7.7) k/uL APTT 40.6 H (22.0-30.0) sec Sodium 136 L (137-145) mmol/L Chloride 108 H (98-107) mmol/L Carbon Dioxide 19 L (22-30) mmol/L BUN 21 H (7-17) mg/dL Creatinine 1.32 H (0.52-1.04) mg/dL Glucose 300 H (74-99) mg/dL POC Glucose (mg/dL) 274 H (70-110) mg/dL Calcium (8.4-10.2) mg/dL Triglycerides 675.00 H (0.00-149.00) mg/dL Cholesterol 248.00 H (0.00-200.00) mg/dL VLDL Cholesterol, Calc 135.00 H (5.00-40.00) mg/dL HDL Cholesterol 37.90 L (40.00-60.00) mg/dL 10/28/23 10/28/23 10/28/23 Range/Units 16:04 20:11 22:08 WBC (3.8-10.6) k/uL RBC (3.80-5.40) m/uL Hgb (11.4-16.0) gm/dL Hct (34.0-46.0) % Neutrophils # (1.3-7.7) k/uL APTT 38.4 H (22.0-30.0) sec Sodium (137-145) mmol/L Chloride (98-107) mmol/L Carbon Dioxide (22-30) mmol/L BUN (7-17) mg/dL Creatinine (0.52-1.04) mg/dL Glucose (74-99) mg/dL POC Glucose (mg/dL) 279 H 353 H (70-110) mg/dL Calcium (8.4-10.2) mg/dL Triglycerides (0.00-149.00) mg/dL Cholesterol (0.00-200.00) mg/dL VLDL Cholesterol, Calc (5.00-40.00) mg/dL HDL Cholesterol (40.00-60.00) mg/dL 10/29/23 10/29/23 10/29/23 Range/Units 02:47 02:47 05:52 WBC 17.5 H (3.8-10.6) k/uL RBC (3.80-5.40) m/uL Hgb 16.8 H (11.4-16.0) gm/dL Hct 49.3 H (34.0-46.0) % Neutrophils # (1.3-7.7) k/uL APTT 54.0 H (22.0-30.0) sec Sodium (137-145) mmol/L Chloride (98-107) mmol/L Carbon Dioxide (22-30) mmol/L BUN (7-17) mg/dL Creatinine (0.52-1.04) mg/dL Glucose (74-99) mg/dL POC Glucose (mg/dL) 343 H (70-110) mg/dL Calcium (8.4-10.2) mg/dL Triglycerides (0.00-149.00) mg/dL Cholesterol (0.00-200.00) mg/dL VLDL Cholesterol, Calc (5.00-40.00) mg/dL HDL Cholesterol (40.00-60.00) mg/dL 10/29/23 10/29/23 Range/Units 06:48 06:48 WBC 18.9 H (3.8-10.6) k/uL RBC 5.43 H (3.80-5.40) m/uL Hgb 17.4 H (11.4-16.0) gm/dL Hct 52.5 H (34.0-46.0) % Neutrophils # 17.4 H (1.3-7.7) k/uL APTT (22.0-30.0) sec Sodium (137-145) mmol/L Chloride (98-107) mmol/L Carbon Dioxide 20 L (22-30) mmol/L BUN 23 H (7-17) mg/dL Creatinine 1.38 H (0.52-1.04) mg/dL Glucose 353 H (74-99) mg/dL POC Glucose (mg/dL) (70-110) mg/dL Calcium 10.9 H (8.4-10.2) mg/dL Triglycerides (0.00-149.00) mg/dL Cholesterol (0.00-200.00) mg/dL VLDL Cholesterol, Calc (5.00-40.00) mg/dL HDL Cholesterol (40.00-60.00) mg/dL
[2023-10-29 16:43] LABS: Glucose,Whole Blood 417 mg/dL (70-110)
[2023-10-29 19:52] LABS: Glucose,Whole Blood 354 mg/dL (70-110)
[2023-10-29] MEDS: ARIPiprazole 2 MG TAB PO SCH (19:56)
[2023-10-30] MEDS: HYDROcodone/APAP 5-325MG 1 EACH TAB PO PRN ×2 (03:43→22:34)
[2023-10-30] MEDS: hydrALAZINE HCL 20 MG/ML 1 ML VIAL IVP PRN (03:45)
[2023-10-30 04:04] LABS: Glucose,Whole Blood 352 mg/dL (70-110)
[2023-10-30 05:53] LABS: Glucose,Whole Blood 254 mg/dL (70-110)
[2023-10-30] MEDS: INSULIN PUMP MEAL BOLUS 1 UNIT MISC MISCELLANE SCH ×4 (06:17→21:02)
[2023-10-30 06:50] LABS: African American GFR (CKD) 32 (>60 ml/min/1.73 sqM); Anion Gap 9 mmol/L; Blood Urea Nitrogen 35 mg/dL (7-17); Calcium 10.3 mg/dL (8.4-10.2); Carbon Dioxide 21 mmol/L (22-30); Chloride 100 mmol/L (98-107); Glucose 269 mg/dL (74-99); Non-African American GFR(CKD) 27 (>60 ml/min/1.73 sqM); Potassium 3.7 mmol/L (3.5-5.1); Sodium 130 mmol/L (137-145)
[2023-10-30 06:54] LABS: Basophils % (A) 0 %; Eosinophils % (A) 0 %; HCT 46.8 % (34.0-46.0); HGB 15.9 gm/dL (11.4-16.0); Lymphocytes # (A) 1.3 k/uL (1.0-4.8); Lymphocytes % (A) 6 %; MCH 32.9 pg (25.0-35.0); MCV 96.9 fL (80.0-100.0); Mean Platelet Volume 10.6; Monocytes # (A) 1.1 k/uL (0-1.0); Monocytes % (A) 5 %; Neutrophils % (A) 89 %; Platelet Count 288 k/uL (150-450); RBC 4.82 m/uL (3.80-5.40); RDW 14.2 % (11.5-15.5); WBC 22.5 k/uL (3.8-10.6)
[2023-10-30] MEDS: SYMBICORT 160-4.5 MCG INHALER INHALATION SCH ×2 (08:14→20:57)
[2023-10-30] MEDS: LOSARTAN 50 MG TAB PO SCH (09:42)
[2023-10-30] MEDS: carvediloL 12.5 MG TAB PO SCH ×2 (09:42→17:18)
[2023-10-30] MEDS: ASPIRIN 81 MG PO SCH (09:42)
[2023-10-30] MEDS: ATORVASTATIN 40 MG TAB PO SCH (09:43)
[2023-10-30] MEDS: LACOSAMIDE 50 MG TABLET PO SCH ×2 (09:43→20:20)
[2023-10-30] MEDS: amLODIPine 5 MG TAB PO SCH ×3 (09:43→20:21)
[2023-10-30] MEDS: lamoTRIgine 100 MG TAB PO SCH ×2 (09:43→20:21)
[2023-10-30] MEDS: PANTOPRAZOLE 40 MG/10 ML VIAL IVP SCH ×2 (09:43→20:21)
[2023-10-30] MEDS: SENNOSIDES 8.6 MG TAB PO SCH ×2 (09:43→20:20)
[2023-10-30 11:37] LABS: Glucose,Whole Blood 277 mg/dL (70-110)
--- NOTE | 2023-10-30 11:54 | P.PN ---
Subjective Progress Note Date: 10/30/23 Dr Fisher's group was covering 10/24/2023 through 10/30/2023 We are resuming care patient Patient originally presented to the hospital on 10/27/2023 with complaints of chest pain. Has a significant past medical history of coronary artery disease with stent placement 5, hypertension, diabetes on insulin pump, DVT, fibromyalgia, hypertension, hyperlipidemia, obstructive sleep apnea, and ovarian cancer, factor V disorder, CVA, DVTs anxiety and depression.. Patient is also a current every day smoker. Upon arrival patient was noted to have elevated troponins 0.0153, 0.3198 0.355 patient's is also noted to have significantly elevated blood pressure. Patient was started on heparin drip and cardiology services were consulted On 10/29/2023 patient started complaining of abdominal pain patient also started to have acoffee-ground emesis. Per records heparin drip was DC'd. Surgical services following tentative plans for EGD. On 10/30/2023 patient alert and oriented 3. Discussed case with cardiology services per cardiology plans for EGD. Creatinine increasing to 2.04 bun 35 we'll consult nephrology services. White blood cell also elevated at 22.5 but it does appear patient received 1 time dose of IV steroids. Will repeat labs patient is afebrile at this time. Hemoglobin stable at 15.9. This time patient denies chest pain or shortness of breath. Patient denies nausea vomiting or diarrhea. Patient denies urinary burning or frequency. Cardiology, surgical nephrology service is consulted current vital signs temp 97.8, heart rate 76, respiratory rate 18, blood pressure 116/63 with a pulse ox 93% on room air Objective - Vital Signs Vital signs: Vital Signs Temp 97.8 F 10/30/23 08:00 Pulse 76 10/30/23 08:00 Resp 18 10/30/23 08:00 BP 161/76 10/30/23 08:00 Pulse Ox 93 L 10/30/23 08:00 FiO2 Intake & Output 10/29/23 10/30/23 10/30/23 18:59 06:59 18:59 Intake Total 970.476 240 Output Total 50 Balance 970.476 -50 240 Weight 82 kg 83 kg Intake: Intake, IV Titration 70.476 Amount Heparin Sod,Pork in 0.45% 70.476 NaCl 25,000 unit In 0.45 % NaCl 1 250ml.bag @ 10. 35 UNITS/KG/HR 10 mls/hr IV .Q24H [facility] Rx#: [id number] Oral 900 240 Output: Emesis 50 Other: Voiding Method Bedside Commode Bedside Commode Bedside Commode # Voids 1 2 # Bowel Movements 1 - Exam Head normocephalic Neck supple Lungs clear to auscultation bilaterally no wheezing or crackles Heart regular rate and rhythm S1-S2, no rub or gallop Abdomen is soft nontender nondistended positive bowel sounds no hepatosplenomegaly Extremities no edema Neuro alert and orientated to 3 - Labs CBC & Chem 7: 10/30/23 05:52 10/30/23 05:52 Labs: Abnormal Lab Results - Last 24 Hours (Table) 10/29/23 10/29/23 10/30/23 Range/Units 16:42 19:50 04:00 WBC (3.8-10.6) k/uL Hct (34.0-46.0) % Neutrophils # (1.3-7.7) k/uL Monocytes # (0-1.0) k/uL Sodium (137-145) mmol/L Carbon Dioxide (22-30) mmol/L BUN (7-17) mg/dL Creatinine (0.52-1.04) mg/dL Glucose (74-99) mg/dL POC Glucose (mg/dL) 417 H 354 H 352 H (70-110) mg/dL Calcium (8.4-10.2) mg/dL 10/30/23 10/30/23 10/30/23 Range/Units 05:51 05:52 05:52 WBC 22.5 H (3.8-10.6) k/uL Hct 46.8 H (34.0-46.0) % Neutrophils # 20.0 H (1.3-7.7) k/uL Monocytes # 1.1 H (0-1.0) k/uL Sodium 130 L (137-145) mmol/L Carbon Dioxide 21 L (22-30) mmol/L BUN 35 H (7-17) mg/dL Creatinine 2.04 H (0.52-1.04) mg/dL Glucose 269 H (74-99) mg/dL POC Glucose (mg/dL) 254 H (70-110) mg/dL Calcium 10.3 H (8.4-10.2) mg/dL 10/30/23 Range/Units 11:35 WBC (3.8-10.6) k/uL Hct (34.0-46.0) % Neutrophils # (1.3-7.7) k/uL Monocytes # (0-1.0) k/uL Sodium (137-145) mmol/L Carbon Dioxide (22-30) mmol/L BUN (7-17) mg/dL Creatinine (0.52-1.04) mg/dL Glucose (74-99) mg/dL POC Glucose (mg/dL) 277 H (70-110) mg/dL Calcium (8.4-10.2) mg/dL Assessment and Plan Assessment: Acute non-ST elevated [place] Hypertensive emergency and admission Episode of Coffee-ground emesis. Heparin drip DC'd Acute kidney injury. 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
[2023-10-30] MEDS: HYDROmorphone 2 MG TAB PO PRN (12:36)
--- NOTE | 2023-10-30 13:48 | P.PN ---
Subjective Progress Note Date: 10/30/23 Progress note Patient is currently stable from cardiac vessel standpoint. She is still hypertensive. BP 175/84 Heart rate 63 beats a minute HISTORY OF PRESENTING ILLNESS 53-year-old female with past medical history of CAD status post PCI to LAD, diagonal and RCA. She is known to Dr. Serrano. She is also a smoker. Morbid obesity She also has a prior history of CVA, hypertension, dyslipidemia, type 2 diabetes, morbid obesity. This time she present to the hospital because of 4 days of worsening shortness of breath and substernal chest heaviness. Next this morning patient reported significant chest pain which was 10 over 10 in severity along with shortness of breath therefore she came to the hospital On admission she was noticed to be hypertensive with a SBP in the range of 200s. Her labs showed a creatinine of 1.18, troponin of 0.1, 0.3. Hemoglobin 15 Bedside echocardiogram showed possible anteroseptal wall hypokinesia with EF of 45-50% Last echo from January 2023 shows an EF of 55% with severe left atrial dilatation ECG shows sinus rhythm with right bundle branch block, , LVH, left axis deviation 1/2 This morning, patient developed coffee-ground emesis and high blood pressure readings. She was scheduled for cardiac catheterization today with Dr. Moseley, which was canceled. Heparin was discontinued and patient has been on a nitroglycerin drip since 10/27. Patient denies having any chest pain. Last evening, patient received IV hydralazine, IV labetalol. Hemoglobin this morning is at 17.4 and WBC 18.9. BUN 23 creatinine 1.38. Triglycerides 375, cholesterol 248, LDL 121 and HDL 37. TSH was 2.82. Heart rate is between 89 and 101, blood pressure 195/96. 1/ Patient is scheduled for EGD tomorrow for GI bleed. Heparin was discontinued yesterday as well as nitroglycerin was discontinued. Patient was started on a clonidine patch just to maintain blood pressure control while she is unable to keep pills down. Patient is able to take her oral medications today. Blood pressure 148/73, heart rate 67, pulse ox 96% on room air. Repeat blood work reveals WBC PHYSICAL EXAMINATION Vital signs reviewed. Head: Normocephalic. Eyes: Sclerae nonicteric. Neck: Brisk carotid upstroke, no jugular venous distention. Lungs: Clear to auscultation. Heart: Regular rate and rhythm, S1-S2, no S3, no murmur or rub. Abdomen: Soft nontender, positive bowel sounds no organomegaly. Extremities: No edema, intact distal pulses. Neuro: Alert, oritented, no focal deficits ASSESSMENT NSTEMI Prior CAD status post PCI to LAD, RCA, diagonal Prior history of CVA Hypertensive urgency on admission, but controlled now Morbid obesity Type II Diabetes Noncompliance Tobacco smoker Acute GI bleed PLAN Continue aspirin, atorvastatin. Continue Coreg 25 mg twice a day Continue losartan 50 mg and amlodipine 5 mg daily One clonidine patch 0.3 mg per 24-hour on 10/29 Heparin drip has been discontinued due to GI bleed Cancel cardiac catheterization with no plan to reschedule at this point GI bleed workup with EGD scheduled for tomorrow Nurse practitioner note has been reviewed, I agree with the documented findings and plan of care. Patient was seen and examined. Objective - Vital Signs Vital signs: Vital Signs Temp 97.8 F 10/30/23 08:00 Pulse 76 10/30/23 08:00 Resp 18 10/30/23 08:00 BP 161/76 10/30/23 08:00 Pulse Ox 93 L 10/30/23 08:00 FiO2 Intake & Output 10/29/23 10/30/23 10/30/23 18:59 06:59 18:59 Intake Total 970.476 Output Total 50 Balance 970.476 -50 Weight 82 kg 83 kg Intake: Intake, IV Titration 70.476 Amount Heparin Sod,Pork in 0.45% 70.476 NaCl 25,000 unit In 0.45 % NaCl 1 250ml.bag @ 10. 35 UNITS/KG/HR 10 mls/hr IV .Q24H [facility] Rx#: [id number] Oral 900 Output: Emesis 50 Other: Voiding Method Bedside Commode Bedside Commode Bedside Commode # Voids 1 2 # Bowel Movements 1 - Labs CBC & Chem 7: 10/30/23 05:52 10/30/23 05:52 Labs: Abnormal Lab Results - Last 24 Hours (Table) 10/29/23 10/29/23 10/29/23 Range/Units 11:24 16:42 19:50 WBC (3.8-10.6) k/uL Hct (34.0-46.0) % Neutrophils # (1.3-7.7) k/uL Monocytes # (0-1.0) k/uL Sodium (137-145) mmol/L Carbon Dioxide (22-30) mmol/L BUN (7-17) mg/dL Creatinine (0.52-1.04) mg/dL Glucose (74-99) mg/dL POC Glucose (mg/dL) 375 H 417 H 354 H (70-110) mg/dL Calcium (8.4-10.2) mg/dL 10/30/23 10/30/23 10/30/23 Range/Units 04:00 05:51 05:52 WBC 22.5 H (3.8-10.6) k/uL Hct 46.8 H (34.0-46.0) % Neutrophils # 20.0 H (1.3-7.7) k/uL Monocytes # 1.1 H (0-1.0) k/uL Sodium (137-145) mmol/L Carbon Dioxide (22-30) mmol/L BUN (7-17) mg/dL Creatinine (0.52-1.04) mg/dL Glucose (74-99) mg/dL POC Glucose (mg/dL) 352 H 254 H (70-110) mg/dL Calcium (8.4-10.2) mg/dL 10/30/23 Range/Units 05:52 WBC (3.8-10.6) k/uL Hct (34.0-46.0) % Neutrophils # (1.3-7.7) k/uL Monocytes # (0-1.0) k/uL Sodium 130 L (137-145) mmol/L Carbon Dioxide 21 L (22-30) mmol/L BUN 35 H (7-17) mg/dL Creatinine 2.04 H (0.52-1.04) mg/dL Glucose 269 H (74-99) mg/dL POC Glucose (mg/dL) (70-110) mg/dL Calcium 10.3 H (8.4-10.2) mg/dL
--- NOTE | 2023-10-30 14:49 | P.PN ---
Subjective Progress Note Date: 10/30/23 CHIEF COMPLAINT: Coffee-ground emesis HISTORY OF PRESENT ILLNESS: Per at bedside patient had an episode of dark emesis yesterday evening and again early this morning. Patient continues to complain of epigastric abdominal pain. Hemoglobin has strep 17.4-15.9 WBC 22.5 sodium is 1:30 creatinine is up 2.04 PHYSICAL EXAM: VITAL SIGNS: Reviewed. GENERAL: Well-developed in no acute distress. ABDOMEN: Soft. Nondistended. Epigastric tenderness NEUROLOGIC: Alert and oriented. Cranial nerves II through XII grossly intact. ASSESSMENT: 1. Coffee ground emesis 2. NSTEMI 3. Daily NSAID use 4. History of gastritis and hiatal hernia PLAN: -Patient scheduled for EGD tomorrow, 10/31/[address] Jennings -Nothing by mouth after midnight -Continue IV Protonix -Continue to hold IV heparin and NSAIDs -Continue to monitor for any signs or symptoms of bleeding -Case discussed with cardiology service and they have cleared patient to proceed with EGD tomorrow Physician Fisher Eel note has been reviewed by physician. Signing provider agrees with the documented findings, assessment, and plan of care. Objective - Vital Signs Vital signs: Vital Signs Temp 98 F 10/30/23 12:00 Pulse 67 10/30/23 12:00 Resp 18 10/30/23 12:00 BP 148/73 10/30/23 12:00 Pulse Ox 96 10/30/23 12:00 FiO2 Intake & Output 10/29/23 10/30/23 10/30/23 18:59 06:59 18:59 Intake Total 970.476 240 Output Total 50 Balance 970.476 -50 240 Weight 82 kg 83 kg Intake: Intake, IV Titration 70.476 Amount Heparin Sod,Pork in 0.45% 70.476 NaCl 25,000 unit In 0.45 % NaCl 1 250ml.bag @ 10. 35 UNITS/KG/HR 10 mls/hr IV .Q24H [facility] Rx#: [id number] Oral 900 240 Output: Emesis 50 Other: Voiding Method Bedside Commode Bedside Commode Bedside Commode # Voids 1 2 # Bowel Movements 1 - Labs CBC & Chem 7: 10/30/23 05:52 10/30/23 05:52 Labs: Abnormal Lab Results - Last 24 Hours (Table) 10/29/23 10/29/23 10/30/23 Range/Units 16:42 19:50 04:00 WBC (3.8-10.6) k/uL Hct (34.0-46.0) % Neutrophils # (1.3-7.7) k/uL Monocytes # (0-1.0) k/uL Sodium (137-145) mmol/L Carbon Dioxide (22-30) mmol/L BUN (7-17) mg/dL Creatinine (0.52-1.04) mg/dL Glucose (74-99) mg/dL POC Glucose (mg/dL) 417 H 354 H 352 H (70-110) mg/dL Calcium (8.4-10.2) mg/dL 10/30/23 10/30/23 10/30/23 Range/Units 05:51 05:52 05:52 WBC 22.5 H (3.8-10.6) k/uL Hct 46.8 H (34.0-46.0) % Neutrophils # 20.0 H (1.3-7.7) k/uL Monocytes # 1.1 H (0-1.0) k/uL Sodium 130 L (137-145) mmol/L Carbon Dioxide 21 L (22-30) mmol/L BUN 35 H (7-17) mg/dL Creatinine 2.04 H (0.52-1.04) mg/dL Glucose 269 H (74-99) mg/dL POC Glucose (mg/dL) 254 H (70-110) mg/dL Calcium 10.3 H (8.4-10.2) mg/dL 10/30/23 Range/Units 11:35 WBC (3.8-10.6) k/uL Hct (34.0-46.0) % Neutrophils # (1.3-7.7) k/uL Monocytes # (0-1.0) k/uL Sodium (137-145) mmol/L Carbon Dioxide (22-30) mmol/L BUN (7-17) mg/dL Creatinine (0.52-1.04) mg/dL Glucose (74-99) mg/dL POC Glucose (mg/dL) 277 H (70-110) mg/dL Calcium (8.4-10.2) mg/dL
[2023-10-30 16:31] LABS: Glucose,Whole Blood 255 mg/dL (70-110)
[2023-10-30] MEDS: hydrALAZINE HCL 25 MG TAB PO SCH ×2 (17:18→20:18)
[2023-10-30] MEDS: INSULIN LISPRO (For Pump) 100 UNIT/ML VIAL SQ-PUMP SCH (17:19)
[2023-10-30] MEDS: HEPARIN SOD,PORK IN 0.45% NACL 25,000 UNIT in 0.45% NACL 1 250ML.BAG IV SCH (17:22)
[2023-10-30 19:43] LABS: Glucose,Whole Blood 246 mg/dL (70-110)
[2023-10-30] MEDS: ARIPiprazole 2 MG TAB PO SCH (20:20)
[2023-10-31 03:03] LABS: Glucose,Whole Blood 216 mg/dL (70-110)
[2023-10-31] MEDS: INSULIN PUMP MEAL BOLUS 1 UNIT MISC MISCELLANE SCH ×2 (06:09→15:33)
[2023-10-31 06:11] LABS: Glucose,Whole Blood 196 mg/dL (70-110)
[2023-10-31] MEDS: carvediloL 12.5 MG TAB PO SCH ×2 (06:22→16:45)
[2023-10-31 07:57] LABS: Basophils % (A) 0 %; Eosinophils # (A) 0.1 k/uL (0-0.7); Eosinophils % (A) 1 %; HCT 45.5 % (34.0-46.0); Lymphocytes # (A) 2.6 k/uL (1.0-4.8); Lymphocytes % (A) 23 %; MCH 32.1 pg (25.0-35.0); MCHC 32.9 g/dL (31.0-37.0); MCV 97.6 fL (80.0-100.0); Monocytes # (A) 0.6 k/uL (0-1.0); Monocytes % (A) 5 %; Neutrophils # (A) 8.2 k/uL (1.3-7.7); Neutrophils % (A) 71 %; Platelet Count 221 k/uL (150-450); RBC 4.67 m/uL (3.80-5.40); RDW 13.7 % (11.5-15.5); WBC 11.5 k/uL (3.8-10.6)
[2023-10-31 08:22] LABS: ALT 25 U/L (4-34); AST 30 U/L (14-36); African American GFR (CKD) 25 (>60 ml/min/1.73 sqM); Albumin 2.9 g/dL (3.5-5.0); Alkaline Phosphatase 134 U/L (38-126); Anion Gap 11 mmol/L; Blood Urea Nitrogen 46 mg/dL (7-17); Calcium 9.8 mg/dL (8.4-10.2); Carbon Dioxide 24 mmol/L (22-30); Chloride 99 mmol/L (98-107); Glucose 185 mg/dL (74-99); Non-African American GFR(CKD) 21 (>60 ml/min/1.73 sqM); Potassium 3.5 mmol/L (3.5-5.1); Sodium 134 mmol/L (137-145); Total Bilirubin 0.4 mg/dL (0.2-1.3); Total Protein 5.1 g/dL (6.3-8.2)
[2023-10-31] MEDS: HYDROcodone/APAP 5-325MG 1 EACH TAB PO PRN (08:27)
[2023-10-31] MEDS: lamoTRIgine 100 MG TAB PO SCH ×2 (08:27→22:31)
[2023-10-31] MEDS: amLODIPine 5 MG TAB PO SCH ×2 (08:27→22:30)
[2023-10-31] MEDS: ASPIRIN 81 MG PO SCH (08:28)
[2023-10-31] MEDS: SENNOSIDES 8.6 MG TAB PO SCH (08:28)
[2023-10-31] MEDS: LACOSAMIDE 50 MG TABLET PO SCH ×2 (08:28→22:30)
[2023-10-31] MEDS: hydrALAZINE HCL 25 MG TAB PO SCH ×3 (08:28→22:30)
[2023-10-31] MEDS: ATORVASTATIN 40 MG TAB PO SCH (08:28)
[2023-10-31] MEDS: PANTOPRAZOLE 40 MG/10 ML VIAL IVP SCH ×2 (08:28→22:28)
[2023-10-31] MEDS: SODIUM CHLORIDE 0.9% 1,000 ML IV SCH (08:35)
--- NOTE | 2023-10-31 08:57 | P.PN ---
Subjective Progress Note Date: 10/31/23 Dr. Fisher prescription covering 10/24/2023 through 10/30/2023 We are resuming care patient Patient originally presented to the hospital on 10/27/2023 with complaints of chest pain. Has a significant past medical history of coronary artery disease with stent placement 5, hypertension, diabetes on insulin pump, DVT, fibromyalgia, hypertension, hyperlipidemia, obstructive sleep apnea, and ovarian cancer, factor V disorder, CVA, DVTs anxiety and depression.. Patient is also a current every day smoker. Upon arrival patient was noted to have elevated troponins 0.0153, 0.3198 0.355 patient's is also noted to have significantly elevated blood pressure. Patient was started on heparin drip and cardiology services were consulted On 10/29/2023 patient started complaining of abdominal pain patient also started to have acoffee-ground emesis. Per records heparin drip was DC'd. Surgical services following tentative plans for EGD. On 10/30/2023 patient alert and oriented 3. Discussed case with cardiology services per cardiology plans for EGD. Creatinine increasing to 2.04 bun 35 we'll consult nephrology services. White blood cell also elevated at 22.5 but it does appear patient received 1 time dose of IV steroids. Will repeat labs patient is afebrile at this time. Hemoglobin stable at 15.9. This time patient denies chest pain or shortness of breath. Patient denies nausea vomiting or diarrhea. Patient denies urinary burning or frequency. Cardiology, surgical nephrology service is consulted current vital signs temp 97.8, heart rate 76, respiratory rate 18, blood pressure 116/63 with a pulse ox 93% on room air 10/31/2023 patient's alert and oriented 3. Plans for EGD today. Awaiting nephrology input for acute kidney injury. Patient was started on normal saline at 50 per cardiology. White blood cell improving to 11.5. Creatinine 2.51 and bun 46. Current vital signs temp 98.1, heart rate 52, blood pressure 122/69 with a pulse ox 94% on room air Objective - Vital Signs Vital signs: Vital Signs Temp 98.1 F 10/31/23 03:57 Pulse 52 L 10/31/23 03:57 Resp 19 10/31/23 03:57 BP 122/69 10/31/23 03:57 Pulse Ox 94 L 10/31/23 03:57 FiO2 Intake & Output 10/30/23 10/31/23 10/31/23 18:59 06:59 18:59 Intake Total 718 Balance 718 Weight 85 kg Intake: Oral 718 Other: Voiding Method Bedside Commode Bedside Commode # Voids 4 1 - Exam Head normocephalic Neck supple Lungs clear to auscultation bilaterally no wheezing or crackles Heart regular rate and rhythm S1-S2, no rub or gallop Abdomen is soft nontender nondistended positive bowel sounds no hepatosplenomegaly Extremities no edema Neuro alert and orientated to 3 - Labs CBC & Chem 7: 10/31/23 06:43 10/31/23 06:43 Labs: Abnormal Lab Results - Last 24 Hours (Table) 10/30/23 10/30/23 10/30/23 Range/Units 11:35 16:27 19:42 WBC (3.8-10.6) k/uL Neutrophils # (1.3-7.7) k/uL Sodium (137-145) mmol/L BUN (7-17) mg/dL Creatinine (0.52-1.04) mg/dL Glucose (74-99) mg/dL POC Glucose (mg/dL) 277 H 255 H 246 H (70-110) mg/dL Alkaline Phosphatase (38-126) U/L Total Protein (6.3-8.2) g/dL Albumin (3.5-5.0) g/dL 10/31/23 10/31/23 10/31/23 Range/Units 03:01 06:09 06:43 WBC 11.5 H (3.8-10.6) k/uL Neutrophils # 8.2 H (1.3-7.7) k/uL Sodium (137-145) mmol/L BUN (7-17) mg/dL Creatinine (0.52-1.04) mg/dL Glucose (74-99) mg/dL POC Glucose (mg/dL) 216 H 196 H (70-110) mg/dL Alkaline Phosphatase (38-126) U/L Total Protein (6.3-8.2) g/dL Albumin (3.5-5.0) g/dL 10/31/23 Range/Units 06:43 WBC (3.8-10.6) k/uL Neutrophils # (1.3-7.7) k/uL Sodium 134 L (137-145) mmol/L BUN 46 H (7-17) mg/dL Creatinine 2.51 H (0.52-1.04) mg/dL Glucose 185 H (74-99) mg/dL POC Glucose (mg/dL) (70-110) mg/dL Alkaline Phosphatase 134 H (38-126) U/L Total Protein 5.1 L (6.3-8.2) g/dL Albumin 2.9 L (3.5-5.0) g/dL Assessment and Plan Assessment: Acute non-ST elevated [place] Hypertensive emergency and admission Episode of Coffee-ground emesis. Heparin drip DC'd Acute kidney injury. 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
[2023-10-31] MEDS ORDERED: cloNIDine 0.1 MG/24HR PATCH TRANSDERM SCH (09:00)
[2023-10-31] MEDS: SYMBICORT 160-4.5 MCG INHALER INHALATION SCH ×2 (09:45→21:18)
--- NOTE | 2023-10-31 10:25 | P.PN ---
Subjective Progress Note Date: 10/31/23 CHIEF COMPLAINT: Coffee-ground emesis HISTORY OF PRESENT ILLNESS: Patient scheduled for EGD today. Per nursing staff no further episodes of coffee-ground emesis. Afebrile. Vitals stable. WBC 11.5 Hgb 15 creatinine 2.51 PHYSICAL EXAM: VITAL SIGNS: Reviewed. GENERAL: Well-developed in no acute distress. ABDOMEN: Soft. Nondistended. Epigastric tenderness NEUROLOGIC: Alert and oriented. Cranial nerves II through XII grossly intact. ASSESSMENT: 1. Coffee ground emesis 2. NSTEMI followed by cardiology 3. Daily NSAID use 4. History of gastritis and hiatal hernia PLAN: -Patient scheduled for EGD today -Continue IV Protonix -Continue to hold IV heparin and NSAIDs Physician Media [employer] Professor note has been reviewed by physician. Signing provider agrees with the documented findings, assessment, and plan of care. Objective - Vital Signs Vital signs: Vital Signs Temp 98.1 F 10/31/23 03:57 Pulse 52 L 10/31/23 03:57 Resp 19 10/31/23 03:57 BP 122/69 10/31/23 03:57 Pulse Ox 95 10/31/23 09:46 FiO2 Intake & Output 10/30/23 10/31/23 10/31/23 18:59 06:59 18:59 Intake Total 718 Balance 718 Weight 85 kg Intake: Oral 718 Other: Voiding Method Bedside Commode Bedside Commode # Voids 4 1 - Labs CBC & Chem 7: 10/31/23 06:43 10/31/23 06:43 Labs: Abnormal Lab Results - Last 24 Hours (Table) 10/30/23 10/30/23 10/30/23 Range/Units 11:35 16:27 19:42 WBC (3.8-10.6) k/uL Neutrophils # (1.3-7.7) k/uL Sodium (137-145) mmol/L BUN (7-17) mg/dL Creatinine (0.52-1.04) mg/dL Glucose (74-99) mg/dL POC Glucose (mg/dL) 277 H 255 H 246 H (70-110) mg/dL Alkaline Phosphatase (38-126) U/L Total Protein (6.3-8.2) g/dL Albumin (3.5-5.0) g/dL 10/31/23 10/31/2324 Range/Units 03:01 06:09 06:43 WBC 11.5 H (3.8-10.6) k/uL Neutrophils # 8.2 H (1.3-7.7) k/uL Sodium (137-145) mmol/L BUN (7-17) mg/dL Creatinine (0.52-1.04) mg/dL Glucose (74-99) mg/dL POC Glucose (mg/dL) 216 H 196 H (70-110) mg/dL Alkaline Phosphatase (38-126) U/L Total Protein (6.3-8.2) g/dL Albumin (3.5-5.0) g/dL 10/31/23 Range/Units 06:43 WBC (3.8-10.6) k/uL Neutrophils # (1.3-7.7) k/uL Sodium 134 L (137-145) mmol/L BUN 46 H (7-17) mg/dL Creatinine 2.51 H (0.52-1.04) mg/dL Glucose 185 H (74-99) mg/dL POC Glucose (mg/dL) (70-110) mg/dL Alkaline Phosphatase 134 H (38-126) U/L Total Protein 5.1 L (6.3-8.2) g/dL Albumin 2.9 L (3.5-5.0) g/dL
--- NOTE | 2023-10-31 11:04 | P.NPCON ---
History of Present Illness - Reason for Consult acute renal failure, chronic renal failure - History of Present Illness Reason for consultation: Acute kidney injury on chronic kidney disease History of present illness: Patient is a 53-year-old female seen in renal consultation for acute kidney injury on chronic kidney disease. Patient has chronic kidney disease stage IIIB with baseline creatinine 1.6-1.7 secondary to diabetic kidney disease. Creatinine this admission was as low as 1.18 and is up to 2.5 today. Patient came to the hospital on 10/27/2023 with chest pain that was radiating to her lef t arm. Patient does have history of coronary artery disease with multiple stents. She was diagnosed with non-ST elevated myocardial infarction is being followed by cardiology. Patient has a long-standing history of diabetes. Admits to using NSAIDs outpatient. Chest x-ray showed no acute cardiopulmonary process. Echocardiogram showed ejection fraction of 50-55%. She has been waiting. Denies gross hematuria or dysuria. Patient did receive IV contrast for CT of the abdomen and pelvis on 10/29/2023 which also showed no acute process. Patient has also been receiving valsartan. She's been having episodes of vomiting and is scheduled to undergo EGD today. Cardiac catheterization is also being considered. She's currently receiving IV fluids. Per nurse, she did receive IV Lasix this admission earlier. Patient's blood pressure this admission was high in the systolic 200s and diastolic above 100. It is now well controlled. Patient was on nitroglycerin drip on admission. Vital signs are stable. General: No acute distress. HEENT: Head exam is unremarkable. LUNGS: No audible rhonchi or wheezes. HEART: Rate and Rhythm are regular. ABDOMEN: Nontender. EXTREMITITES: No edema. 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 Last Myocardial Infarction Date:: Pt thinks 2015 History of Any Multi-Drug Resistant Organisms: None Reported Past Surgical History: Section, Cholecystectomy, Heart Catheterization With Stent, Hysterectomy, Tubal Ligation, Uterine Ablation Additional Past Surgical History / Comment(s): vein stripping right leg, radio frequency ablation of right back-02/22/2015, four stents on 04/03/16 and one on march 05, ovaries removed, colonscopy- polyp removal Past Anesthesia/Blood Transfusion Reactions: Motion Sickness Additional Past Anesthesia/Blood Transfusion Reaction / Comment(s): mild claustrophobia Date of Last Stent Placement:: 04/03/16 Past Psychological History: Anxiety, Depression Smoking Status: Current every day smoker Past Alcohol Use History: None Reported Past Drug Use History: None Reported - Past Family History Father Family Medical History: Congestive Heart Failure (CHF), Coronary Artery Disease (CAD), Diabetes Mellitus Mother Family Medical History: Cancer, COPD, Hypertension, Respiratory Disorder Additional Family Medical History / Comment(s): emphysema, colon CA Medications and Allergies Home Medications Medication Instructions Recorded Confirmed Type Aspirin [Adult Low Dose Aspirin EC] 81 mg PO DAILY 11/26/17 10/27/23 History DULoxetine HCL [Cymbalta] 60 mg PO DAILY 08/25/18 10/27/23 History Isosorbide Mononitrate ER [Imdur] 60 mg PO DAILY 09/08/18 10/27/23 History ARIPiprazole [Abilify] 2 mg PO HS 11/08/20 10/27/23 History Albuterol Nebulized [Ventolin 2.5 mg INHALATION RT-QID PRN 10/06/22 10/27/23 History Nebulized] Empagliflozin [Jardiance] 10 mg PO DAILY 10/06/22 10/27/23 History Famotidine 20 mg PO BID 10/06/22 10/27/23 History Nitroglycerin Sl Tabs [Nitrostat] 0.4 mg SL Q5M PRN 10/06/22 10/27/23 History Pioglitazone [Actos] 15 mg PO DAILY 10/06/22 10/27/23 History Lacosamide [Vimpat] 50 mg PO BID 28 Days #14 tab 10/18/22 10/27/23 Rx Fenofibrate [Lofibra] 160 mg PO DAILY 01/25/23 10/27/23 History Multivit-Min/Folic Acid/Hkh675 1 tab PO DAILY 01/25/23 10/27/23 History [Alive Premium Adult Multivit] Rimegepant Sulfate [Nurtec Odt] 75 mg PO DAILY PRN 01/25/23 10/27/23 History lamoTRIgine [LaMICtal Xr] 250 mg PO DAILY 01/25/23 10/27/23 History ALPRAZolam [Xanax] 2 mg PO HS PRN 02/05/23 10/27/23 History Pregabalin [Lyrica] 150 mg PO BID 02/05/23 10/27/23 History carvediloL [Coreg] 25 mg PO BID 02/05/23 10/27/23 History Atorvastatin [Lipitor] 20 mg PO HS 07/17/23 10/27/23 History Budesonide/Formoterol Fumarate 2 puff INHALATION RT-BID 07/17/23 10/27/23 History [Symbicort 160-4.5 Mcg Inhaler] Furosemide [Lasix] 20 mg PO DAILY PRN 07/17/23 10/27/23 History INSULIN LISPRO (For Pump) [humaLOG 0.01 units SQ-PUMP CONTINUOUS 07/17/23 10/27/23 History (For Pump)] Promethazine/Dextromethorphan 5 ml PO Q6H PRN 07/17/23 10/27/23 History [Promethazine-Dm 6.25-15 mg/5Ml] cloNIDine 0.1 MG/24HR PATCH 0.1 mg TRANSDERM TH 07/17/23 10/27/23 History [Catapres-TTS] HYDROmorphone [Dilaudid] 2 mg PO BID PRN 10/27/23 10/27/23 History Sucralfate [Carafate] 1 gm PO ACHS 10/27/23 10/27/23 History Allergies Allergy/AdvReac Type Severity Reaction Status Date / Time Fish Containing Products Allergy Anaphylaxis Verified 10/27/23 14:31 Iodinated Contrast Media Allergy Anaphylaxis Verified 10/27/23 14:31 [Iodinated Contrast Media - IV Dye] Sulfa (Sulfonamide Allergy Anaphylaxis Verified 10/27/23 14:31 Antibiotics) sulfamethoxazole Allergy Anaphylaxis Verified 10/27/23 14:31 [From ] tree nut [Nut] Allergy Anaphylaxis Verified 10/27/23 14:31 trimethoprim [From ] Allergy Anaphylaxis Verified 10/27/23 14:31 Physical Exam Vitals: Vital Signs Temp Pulse Resp BP Pulse Ox 10/31/23 09:46 95 10/31/23 03:57 98.1 F 52 L 19 122/69 94 L 10/31/23 00:01 97.8 F 58 L 19 104/61 94 L 10/30/23 22:00 98.0 F 58 L 18 121/65 96 10/30/23 20:00 97.8 F 58 L 19 98/60 10/30/23 16:00 97.8 F 64 18 118/63 94 L 10/30/23 12:00 98 F 67 18 148/73 96 Intake and Output 10/30/23 10/31/23 10/31/23 22:59 06:59 14:59 Intake Total 360 Balance 360 Intake: Oral 360 Other: Voiding Method Bedside Commode Bedside Commode # Voids 4 1 Weight 85 kg Results - Lab Results Most recent lab results Calcium 9.8 mg/dL (8.4-10.2) 10/31/23 06:43 Magnesium 1.6 mg/dL (1.6-2.3) 10/27/23 11:34 10/31/23 06:43 10/31/23 06:43 Assessment and Plan Plan: Assessment: 1. Acute kidney injury secondary to hemodynamic ATN, IV contrast which was given 10/29/2023 as well as losartan. Was also taking NSAIDs outpatient. Creatinine is low as 1.18 this admission and up to 2.5 today. No hydronephrosis noted on CAT scan. Rule out urinary retention. 2. Non-ST elevated myocardial infarction. Cardiology following. Cardiac catheterization be considered. 3. Chronic kidney disease stage IIIB with baseline creatinine 1.6-1.7. UA with 3+ protein and no blood. Suspect diabetic kidney disease. 4. Coffee-ground emesis being followed by surgery. EGD this afternoon. 5. Hypertensive urgency. Improved. 6. Diabetes mellitus. 7. Coronary artery disease with multiple stents. Plan: Maintain gentle IV hydration. Avoid nephrotoxins. Check bladder scan to rule out urinary retention. Hold hydralazine and amlodipine for systolic blood pressure less than 120. EGD today. May need cardiac catheterization this admission. Discussed risk of worsening renal function, potentially requiring renal replacement therapy, post-IV contrast exposure. She understands. Thank you for the consultation. I will continue to follow the patient with you during her hospital stay.
[2023-10-31 11:18] LABS: Glucose,Whole Blood 201 mg/dL (70-110)
--- NOTE | 2023-10-31 12:14 | P.PN ---
Subjective Progress Note Date: 10/31/23 Progress note Patient is currently stable from cardiac vessel standpoint. She is still hypertensive. BP 175/84 Heart rate 63 beats a minute HISTORY OF PRESENTING ILLNESS 53-year-old female with past medical history of CAD status post PCI to LAD, diagonal and RCA. She is known to Dr. Serrano. She is also a smoker. Morbid obesity She also has a prior history of CVA, hypertension, dyslipidemia, type 2 diabetes, morbid obesity. This time she present to the hospital because of 4 days of worsening shortness of breath and substernal chest heaviness. Next this morning patient reported significant chest pain which was 10 over 10 in severity along with shortness of breath therefore she came to the hospital On admission she was noticed to be hypertensive with a SBP in the range of 200s. Her labs showed a creatinine of 1.18, troponin of 0.1, 0.3. Hemoglobin 15 Bedside echocardiogram showed possible anteroseptal wall hypokinesia with EF of 45-50% Last echo from January 2023 shows an EF of 55% with severe left atrial dilatation ECG shows sinus rhythm with right bundle branch block, , LVH, left axis deviation 1/2 This morning, patient developed coffee-ground emesis and high blood pressure readings. She was scheduled for cardiac catheterization today with Dr. Moseley, which was canceled. Heparin was discontinued and patient has been on a nitroglycerin drip since 10/27. Patient denies having any chest pain. Last evening, patient received IV hydralazine, IV labetalol. Hemoglobin this morning is at 17.4 and WBC 18.9. BUN 23 creatinine 1.38. Triglycerides 375, cholesterol 248, LDL 121 and HDL 37. TSH was 2.82. Heart rate is between 89 and 101, blood pressure 195/96. 1/3 Patient is scheduled for EGD tomorrow for GI bleed. Heparin was discontinued yesterday as well as nitroglycerin was discontinued. Patient was started on a clonidine patch just to maintain blood pressure control while she is unable to keep pills down. Patient is able to take her oral medications today. Blood pressure 148/73, heart rate 67, pulse ox 96% on room air. Repeat blood work reveals WBC 1/4 Patient is scheduled for EGD today. Yesterday losartan was discontinued due to worsening creatinine. Patient again has elevated creatinine and a consult with nephrology was added. BUN 46 creatinine 2.51. Sodium 134, potassium 3.5, WBC 11.5, hemoglobin 15. Alkaline phosphatase 134. Patient has been afebrile, heart rate in the 50s, blood pressure 143/72, pulse ox 95% on room air. PHYSICAL EXAMINATION Vital signs reviewed. Head: Normocephalic. Eyes: Sclerae nonicteric. Neck: Brisk carotid upstroke, no jugular venous distention. Lungs: Clear to auscultation. Heart: Regular rate and rhythm, S1-S2, no S3, no murmur or rub. Abdomen: Soft nontender, positive bowel sounds no organomegaly. Extremities: No edema, intact distal pulses. Neuro: Alert, oritented, no focal deficits ASSESSMENT NSTEMI Prior CAD status post PCI to LAD, RCA, diagonal Prior history of CVA Hypertensive urgency on admission, but controlled now Morbid obesity Type II Diabetes Noncompliance Tobacco smoker Acute GI bleed Acute kidney injury PLAN Continue aspirin, atorvastatin. Continue Coreg 25 mg twice a day Continue amlodipine 5 mg increased frequency to twice daily by nephrology Status post clonidine patch 0.3 mg per 24-hour on 10/29 Heparin drip has been discontinued due to GI bleed Cancel cardiac catheterization with no plan to reschedule at this point GI bleed workup with EGD scheduled for this afternoon Start IV fluids 0.9 normal saline at 50 mL per hour Nurse practitioner note has been reviewed, I agree with the documented findings and plan of care. Patient was seen and examined. Objective - Vital Signs Vital signs: Vital Signs Temp 98.1 F 10/31/23 03:57 Pulse 52 L 10/31/23 03:57 Resp 19 10/31/23 03:57 BP 122/69 10/31/23 03:57 Pulse Ox 94 L 10/31/23 03:57 FiO2 Intake & Output 10/30/23 10/31/23 10/31/23 18:59 06:59 18:59 Intake Total 718 Balance 718 Weight 85 kg Intake: Oral 718 Other: Voiding Method Bedside Commode Bedside Commode # Voids 4 1 - Labs CBC & Chem 7: 10/31/23 06:43 10/31/23 06:43 Labs: Abnormal Lab Results - Last 24 Hours (Table) 10/30/23 10/30/23 10/30/23 Range/Units 11:35 16:27 19:42 WBC (3.8-10.6) k/uL Neutrophils # (1.3-7.7) k/uL Sodium (137-145) mmol/L BUN (7-17) mg/dL Creatinine (0.52-1.04) mg/dL Glucose (74-99) mg/dL POC Glucose (mg/dL) 277 H 255 H 246 H (70-110) mg/dL Alkaline Phosphatase (38-126) U/L Total Protein (6.3-8.2) g/dL Albumin (3.5-5.0) g/dL 10/31/23 10/31/23 10/31/23 Range/Units 03:01 06:09 06:43 WBC 11.5 H (3.8-10.6) k/uL Neutrophils # 8.2 H (1.3-7.7) k/uL Sodium (137-145) mmol/L BUN (7-17) mg/dL Creatinine (0.52-1.04) mg/dL Glucose (74-99) mg/dL POC Glucose (mg/dL) 216 H 196 H (70-110) mg/dL Alkaline Phosphatase (38-126) U/L Total Protein (6.3-8.2) g/dL Albumin (3.5-5.0) g/dL 10/31/23 Range/Units 06:43 WBC (3.8-10.6) k/uL Neutrophils # (1.3-7.7) k/uL Sodium 134 L (137-145) mmol/L BUN 46 H (7-17) mg/dL Creatinine 2.51 H (0.52-1.04) mg/dL Glucose 185 H (74-99) mg/dL POC Glucose (mg/dL) (70-110) mg/dL Alkaline Phosphatase 134 H (38-126) U/L Total Protein 5.1 L (6.3-8.2) g/dL Albumin 2.9 L (3.5-5.0) g/dL
[2023-10-31] MEDS: HYDROmorphone 2 MG TAB PO PRN ×2 (12:36→23:27)
[2023-10-31] MEDS ORDERED: PROPOFOL 10 MG/ML 20 ML VIAL IV ONE (13:54)
[2023-10-31] MEDS ORDERED: IV FLUID CONTINUATION 1,000 ML IV ONE (14:04)
--- NOTE | 2023-10-31 14:06 | P.OP ---
Date of Procedure: 10/31/23 Preoperative Diagnosis: Gastritis Postoperative Diagnosis: Mild antral gastritis Procedure(s) Performed: EGD Anesthesia: MAC Surgeon: Lencho Jennings Pathology: other (Antrum) Condition: stable Disposition: PACU Description of Procedure: The patient's placed on the endoscopy table in the lateral position. She received IV sedation. The gastroscope was placed oropharynx passed in the esophagus and stomach. Scope was then placed through the pylorus. The first and second portion of the duodenum appeared normal. The scope was then brought back the antrum was mildly inflamed. A biopsies performed. Scope was unretroflexed and remainder the stomach appeared normal. The GE junction was at 40 cm centimeters.. The distal esophagus appeared normal. The proximal esophagus. Scope withdrawn for patient.
[2023-10-31] MEDS: INSULIN LISPRO (For Pump) 100 UNIT/ML VIAL SQ-PUMP SCH (15:34)
[2023-10-31 16:22] LABS: Glucose,Whole Blood 337 mg/dL (70-110)
[2023-10-31] MEDS: INSULIN ASPART (NovoLOG) 100 UNIT/ML VIAL SQ SCH ×2 (16:45→22:28)
[2023-10-31 19:24] LABS: Glucose,Whole Blood 381 mg/dL (70-110)
[2023-10-31] MEDS: ARIPiprazole 2 MG TAB PO SCH (22:31)
[2023-11-01] MEDS: ONDANSETRON 4 MG/2 ML VIAL IVP PRN (01:28)
[2023-11-01] MEDS: hydrALAZINE HCL 20 MG/ML 1 ML VIAL IVP PRN (05:40)
[2023-11-01 06:03] LABS: Glucose,Whole Blood 333 mg/dL (70-110)
[2023-11-01] MEDS: SENNOSIDES 8.6 MG TAB PO SCH ×3 (06:55→20:18)
[2023-11-01] MEDS: carvediloL 12.5 MG TAB PO SCH ×2 (06:59→15:57)
[2023-11-01] MEDS: INSULIN ASPART (NovoLOG) 100 UNIT/ML VIAL SQ SCH ×4 (06:59→20:19)
[2023-11-01] MEDS: SYMBICORT 160-4.5 MCG INHALER INHALATION SCH ×2 (08:03→22:00)
[2023-11-01] MEDS: hydrALAZINE HCL 25 MG TAB PO SCH (09:13)
[2023-11-01] MEDS: amLODIPine 5 MG TAB PO SCH ×2 (09:13→20:18)
[2023-11-01] MEDS: lamoTRIgine 100 MG TAB PO SCH ×2 (09:13→20:18)
[2023-11-01] MEDS: PANTOPRAZOLE 40 MG/10 ML VIAL IVP SCH ×2 (09:13→20:18)
[2023-11-01] MEDS: ATORVASTATIN 40 MG TAB PO SCH (09:13)
[2023-11-01] MEDS: LACOSAMIDE 50 MG TABLET PO SCH ×2 (09:13→20:18)
[2023-11-01] MEDS: ASPIRIN 81 MG PO SCH (09:13)
[2023-11-01] MEDS ORDERED: hydrALAZINE HCL 25 MG TAB PO STA (10:06)
[2023-11-01] MEDS: SODIUM CHLORIDE 0.9% 1,000 ML IV SCH ×2 (10:21→23:57)
--- NOTE | 2023-11-01 10:42 | P.PN ---
Subjective Progress Note Date: 11/01/23 Dr Fisher's group was covering 10/24/2023 through 10/30/2023 We are resuming care patient Patient originally presented to the hospital on 10/27/2023 with complaints of chest pain. Has a significant past medical history of coronary artery disease with stent placement 5, hypertension, diabetes on insulin pump, DVT, fibromyalgia, hypertension, hyperlipidemia, obstructive sleep apnea, and ovarian cancer, factor V disorder, CVA, DVTs anxiety and depression.. Patient is also a current every day smoker. Upon arrival patient was noted to have elevated troponins 0.0153, 0.3198 0.355 patient's is also noted to have significantly elevated blood pressure. Patient was started on heparin drip and cardiology services were consulted On 10/29/2023 patient started complaining of abdominal pain patient also started to have acoffee-ground emesis. Per records heparin drip was DC'd. Surgical services following tentative plans for EGD. On 10/30/2023 patient alert and oriented 3. Discussed case with cardiology services per cardiology plans for EGD. Creatinine increasing to 2.04 bun 35 we'll consult nephrology services. White blood cell also elevated at 22.5 but it does appear patient received 1 time dose of IV steroids. Will repeat labs patient is afebrile at this time. Hemoglobin stable at 15.9. This time patient denies chest pain or shortness of breath. Patient denies nausea vomiting or diarrhea. Patient denies urinary burning or frequency. Cardiology, surgical nephrology service is consulted current vital signs temp 97.8, heart rate 76, respiratory rate 18, blood pressure 116/63 with a pulse ox 93% on room air 10/31/2023 patient's alert and oriented 3. Plans for EGD today. Awaiting nephrology input for acute kidney injury. Patient was started on normal saline at 50 per cardiology. White blood cell improving to 11.5. Creatinine 2.51 and bun 46. Current vital signs temp 98.1, heart rate 52, blood pressure 122/69 with a pulse ox 94% on room air On 11/01/2023 patient's alert and oriented 3. Status post EGD showing antral gastritis. Creatinine increased history 2.5 1.46 nephrology services are following. Vital signs temp 98.6, heart rate 83, respiratory rate 18, blood pressure 142/76 with pulse of 93% on room air. Patient denies chest pain or shortness of breath. Patient denies nausea vomiting or diarrhea. Patient denies any urinary burning or frequency Objective - Vital Signs Vital signs: Vital Signs Temp 98.6 F 11/01/23 09:10 Pulse 83 11/01/23 09:10 Resp 18 11/01/23 09:10 BP 142/76 11/01/23 09:10 Pulse Ox 93 L 11/01/23 09:10 FiO2 Intake & Output 10/31/23 11/01/23 11/01/23 18:59 06:59 18:59 Intake Total 278 240 Output Total 254 Balance 24 240 Weight 82.5 kg Intake: IV 100 Oral 178 240 Output: Post Void Residual 254 Other: Voiding Method Bedside Commode Bedside Commode Bedside Commode # Voids 3 1 - Exam Head normocephalic Neck supple Lungs clear to auscultation bilaterally no wheezing or crackles Heart regular rate and rhythm S1-S2, no rub or gallop Abdomen is soft nontender nondistended positive bowel sounds no hepatosplenomegaly Extremities no edema Neuro alert and orientated to 3 - Labs CBC & Chem 7: 10/31/23 06:43 10/31/23 06:43 Labs: Abnormal Lab Results - Last 24 Hours (Table) 10/31/23 10/31/23 10/31/23 Range/Units 11:16 16:20 19:21 POC Glucose (mg/dL) 201 H 337 H 381 H (70-110) mg/dL 11/01/23 Range/Units 06:00 POC Glucose (mg/dL) 333 H (70-110) mg/dL Assessment and Plan Assessment: Acute non-ST elevated UT Hypertensive emergency and admission Episode of Coffee-ground emesis. Heparin drip DC'd Acute kidney injury. Nephrology service is consulted Leukocytosis likely secondary from steroid will repeat WBC level History of coronary artery disease with prior history of stent placement 5 Factor V Leyden disorder with prior history of DVTs Diabetes mellitus patient maintained on insulin pump Fibromyalgia History of chronic pain History of CVA with right-sided residual weakness History of hyperlipidemia History of GERD History of bilateral peripheral diabetic neuropathy History of obstructive sleep apnea History of peripheral arterial disease History of ovarian cervical uterine cancer Ongoing nicotine dependence Cardiology, surgery nephrology service is consulted Heparin drip has been DC'd secondary to coffee-ground emesis Status post EGD on 10/31/2023 showing mild antral gastritis Patient maintained on her insulin pump Repeat labs ordered
--- NOTE | 2023-11-01 10:52 | P.PN ---
Subjective Progress Note Date: 11/01/23 CHIEF COMPLAINT: Coffee-ground emesis HISTORY OF PRESENT ILLNESS: Patient is status post EGD which showed mild antral gastritis. Patient has had no further vomiting. No coffee-ground emesis. Denies any nausea vomiting. Hemoglobin stable at 15 PHYSICAL EXAM: VITAL SIGNS: Reviewed. GENERAL: Well-developed in no acute distress. ABDOMEN: Soft. Nondistended. Epigastric tenderness NEUROLOGIC: Alert and oriented. Cranial nerves II through XII grossly intact. ASSESSMENT: 1. Coffee ground emesis resolves. Status post EGD revealing mild antral gastritis 2. NSTEMI followed by cardiology 3. Daily NSAID use 4. History of gastritis and hiatal hernia PLAN: -Continue Protonix -Continue to hold IV heparin and NSAIDs Physician [employer] Scheduler note has been reviewed by physician. Signing provider agrees with the documented findings, assessment, and plan of care. Objective - Vital Signs Vital signs: Vital Signs Temp 97.9 F 11/01/23 04:00 Pulse 78 11/01/23 04:00 Resp 18 11/01/23 04:00 BP 185/100 11/01/23 04:00 Pulse Ox 96 11/01/23 04:00 FiO2 Intake & Output 10/31/23 11/01/23 11/01/23 18:59 06:59 18:59 Intake Total 278 240 Output Total 254 Balance 24 240 Weight 82.5 kg Intake: IV 100 Oral 178 240 Output: Post Void Residual 254 Other: Voiding Method Bedside Commode Bedside Commode # Voids 3 1 - Labs CBC & Chem 7: 10/31/23 06:43 10/31/23 06:43 Labs: Abnormal Lab Results - Last 24 Hours (Table) 10/31/23 10/31/23 10/31/23 Range/Units 11:16 16:20 19:21 POC Glucose (mg/dL) 201 H 337 H 381 H (70-110) mg/dL 11/01/23 Range/Units 06:00 POC Glucose (mg/dL) 333 H (70-110) mg/dL
--- NOTE | 2023-11-01 10:58 | P.PN ---
Subjective Patient is seen in follow-up for acute kidney injury on chronic kidney disease. Creatinine 2.5 yesterday. Currently on IV fluids. Dose of hydralazine increased this morning by cardiology. Has been voiding. Tolerating oral intake. Vital signs are stable. General: No acute distress. HEENT: Head exam is unremarkable. LUNGS: No audible rhonchi or wheezes. HEART: Rate and Rhythm are regular. ABDOMEN: Nontender. EXTREMITITES: No edema. Objective - Vital Signs Vital signs: Vital Signs Temp 98.6 F 11/01/23 09:10 Pulse 83 11/01/23 09:10 Resp 18 11/01/23 09:10 BP 142/76 11/01/23 09:10 Pulse Ox 93 L 11/01/23 09:10 FiO2 Intake & Output 10/31/23 11/01/23 11/01/23 18:59 06:59 18:59 Intake Total 278 240 Output Total 254 Balance 24 240 Weight 82.5 kg Intake: IV 100 Oral 178 240 Output: Post Void Residual 254 Other: Voiding Method Bedside Commode Bedside Commode Bedside Commode # Voids 3 1 - Labs CBC & Chem 7: 10/31/23 06:43 10/31/23 06:43 Labs: Abnormal Lab Results - Last 24 Hours (Table) 10/31/23 10/31/23 10/31/23 Range/Units 11:16 16:20 19:21 POC Glucose (mg/dL) 201 H 337 H 381 H (70-110) mg/dL 11/01/23 Range/Units 06:00 POC Glucose (mg/dL) 333 H (70-110) mg/dL Assessment and Plan Plan: Assessment: 1. Acute kidney injury secondary to hemodynamic ATN, IV contrast which was given 10/29/2023 as well as losartan. Was also taking NSAIDs outpatient. Creatinine is low as 1.18 this admission and up to 2.5 dated 10/31/2023. No hydronephrosis noted on CAT scan. 2. Non-ST elevated myocardial infarction. Cardiology following. Cardiac catheterization will be done outpatient. 3. Chronic kidney disease stage IIIB with baseline creatinine 1.6-1.7. UA with 3+ protein and no blood. Suspect diabetic kidney disease. 4. Coffee-ground emesis being followed by surgery. EGD showed gastritis. 5. Hypertensive urgency. Improved. 6. Diabetes mellitus. 7. Coronary artery disease with multiple stents. Plan: Maintain gentle IV hydration. Avoid nephrotoxins. Continue to hold losartan for now. Hold hydralazine and amlodipine for systolic blood pressure less than 120. Follow-up morning labs. May need cardiac catheterization in the near future. Discussed risk of worsening renal function, potentially requiring renal replacement therapy, post- IV contrast exposure. She understands. Follow up outpatient in 1 week post discharge. Patient will need IV hydration pre-and post IV contrast exposure as a preventative measure to avoid kidney injury.
[2023-11-01 11:25] LABS: Glucose,Whole Blood 338 mg/dL (70-110)
[2023-11-01 12:00] LABS: African American GFR (CKD) 31 (>60 ml/min/1.73 sqM); Anion Gap 10 mmol/L; Blood Urea Nitrogen 42 mg/dL (7-17); Calcium 9.5 mg/dL (8.4-10.2); Carbon Dioxide 20 mmol/L (22-30); Chloride 101 mmol/L (98-107); Glucose 322 mg/dL (74-99); Magnesium 1.7 mg/dL (1.6-2.3); Non-African American GFR(CKD) 27 (>60 ml/min/1.73 sqM); Potassium 3.9 mmol/L (3.5-5.1); Sodium 131 mmol/L (137-145)
--- NOTE | 2023-11-01 12:16 | P.PN ---
Subjective Progress Note Date: 11/01/23 Progress note Patient is currently stable from cardiac vessel standpoint. She is still hypertensive. BP 175/84 Heart rate 63 beats a minute HISTORY OF PRESENTING ILLNESS 53-year-old female with past medical history of CAD status post PCI to LAD, diagonal and RCA. She is known to Dr. Serrano. She is also a smoker. Morbid obesity She also has a prior history of CVA, hypertension, dyslipidemia, type 2 diabetes, morbid obesity. This time she present to the hospital because of 4 days of worsening shortness of breath and substernal chest heaviness. Next this morning patient reported significant chest pain which was 10 over 10 in severity along with shortness of breath therefore she came to the hospital On admission she was noticed to be hypertensive with a SBP in the range of 200s. Her labs showed a creatinine of 1.18, troponin of 0.1, 0.3. Hemoglobin 15 Bedside echocardiogram showed possible anteroseptal wall hypokinesia with EF of 45-50% Last echo from January 2023 shows an EF of 55% with severe left atrial dilatation ECG shows sinus rhythm with right bundle branch block, , LVH, left axis deviation 1/2 This morning, patient developed coffee-ground emesis and high blood pressure readings. She was scheduled for cardiac catheterization today with Dr. Moseley, which was canceled. Heparin was discontinued and patient has been on a nitroglycerin drip since 10/27. Patient denies having any chest pain. Last evening, patient received IV hydralazine, IV labetalol. Hemoglobin this morning is at 17.4 and WBC 18.9. BUN 23 creatinine 1.38. Triglycerides 375, cholesterol 248, LDL 121 and HDL 37. TSH was 2.82. Heart rate is between 89 and 101, blood pressure 195/96. 1/3 Patient is scheduled for EGD tomorrow for GI bleed. Heparin was discontinued yesterday as well as nitroglycerin was discontinued. Patient was started on a clonidine patch just to maintain blood pressure control while she is unable to keep pills down. Patient is able to take her oral medications today. Blood pressure 148/73, heart rate 67, pulse ox 96% on room air. Repeat blood work reveals WBC 1/4 Patient is scheduled for EGD today. Yesterday losartan was discontinued due to worsening creatinine. Patient again has elevated creatinine and a consult with nephrology was added. BUN 46 creatinine 2.51. Sodium 134, potassium 3.5, WBC 11.5, hemoglobin 15. Alkaline phosphatase 134. Patient has been afebrile, heart rate in the 50s, blood pressure 143/72, pulse ox 95% on room air. 11/01 EGD performed yesterday revealed mild antral gastritis. Patient denies complaints of chest pain. PHYSICAL EXAMINATION Vital signs reviewed. Lungs: Clear to auscultation. Heart: Regular rate and rhythm, S1-S2, no S3, no murmur or rub. Extremities: No edema, intact distal pulses. ASSESSMENT NSTEMI Prior CAD status post PCI to LAD, RCA, diagonal Prior history of CVA Hypertensive urgency on admission, but controlled now Morbid obesity Type II Diabetes Noncompliance Tobacco smoker Acute GI bleed Acute kidney injury PLAN Continue aspirin, atorvastatin. Continue Coreg 25 mg twice a day Continue amlodipine 5 mg increased frequency to twice daily by nephrology Increase hydralazine to 50 mg 3 times daily No plan for cardiac catheterization during this hospitalization. Patient will follow-up in the office and this will be scheduled as an outpatient once his anemia and gastritis are resolved. Continue IV fluids 0.9 normal saline at 50 mL per hour Nurse practitioner note has been reviewed, I agree with the documented findings and plan of care. Patient was seen and examined. Objective - Vital Signs Vital signs: Vital Signs Temp 97.9 F 11/01/23 04:00 Pulse 78 11/01/23 04:00 Resp 18 11/01/23 04:00 BP 185/100 11/01/23 04:00 Pulse Ox 96 11/01/23 04:00 FiO2 Intake & Output 10/31/23 11/01/23 11/01/23 18:59 06:59 18:59 Intake Total 278 240 Output Total 254 Balance 24 240 Weight 82.5 kg Intake: IV 100 Oral 178 240 Output: Post Void Residual 254 Other: Voiding Method Bedside Commode Bedside Commode # Voids 3 1 - Labs CBC & Chem 7: 10/31/23 06:43 11/01/23 11:18 Labs: Abnormal Lab Results - Last 24 Hours (Table) 10/31/23 10/31/23 10/31/23 Range/Units 11:16 16:20 19:21 POC Glucose (mg/dL) 201 H 337 H 381 H (70-110) mg/dL 01/05/24 Range/Units 06:00 POC Glucose (mg/dL) 333 H (70-110) mg/dL
[2023-11-01] MEDS: SODIUM BICARBONATE TAB 650 MG TAB PO SCH (12:28)
[2023-11-01] MEDS: hydrALAZINE HCL 50 MG TAB PO SCH ×2 (15:57→20:18)
[2023-11-01 16:31] LABS: Glucose,Whole Blood 345 mg/dL (70-110)
[2023-11-01 20:11] LABS: Glucose,Whole Blood 366 mg/dL (70-110)
[2023-11-01] MEDS: ARIPiprazole 2 MG TAB PO SCH (21:10)
[2023-11-02 06:13] LABS: Glucose,Whole Blood 339 mg/dL (70-110)
[2023-11-02] MEDS: INSULIN ASPART (NovoLOG) 100 UNIT/ML VIAL SQ SCH ×2 (06:16→11:59)
[2023-11-02] MEDS: carvediloL 12.5 MG TAB PO SCH (06:16)
[2023-11-02] MEDS: SYMBICORT 160-4.5 MCG INHALER INHALATION SCH (08:53)
[2023-11-02 09:02] LABS: Basophils % (A) 0 %; Eosinophils # (A) 0.1 k/uL (0-0.7); Eosinophils % (A) 1 %; HCT 41.5 % (34.0-46.0); HGB 14.2 gm/dL (11.4-16.0); Lymphocytes # (A) 2.3 k/uL (1.0-4.8); Lymphocytes % (A) 25 %; MCH 33.5 pg (25.0-35.0); MCHC 34.1 g/dL (31.0-37.0); MCV 98.1 fL (80.0-100.0); Mean Platelet Volume 10.3; Monocytes # (A) 0.5 k/uL (0-1.0); Monocytes % (A) 5 %; Neutrophils # (A) 6.2 k/uL (1.3-7.7); Neutrophils % (A) 67 %; Platelet Count 181 k/uL (150-450); RBC 4.23 m/uL (3.80-5.40); RDW 13.4 % (11.5-15.5); WBC 9.2 k/uL (3.8-10.6)
[2023-11-02] MEDS: LACOSAMIDE 50 MG TABLET PO SCH (09:24)
[2023-11-02] MEDS: ASPIRIN 81 MG PO SCH (09:24)
[2023-11-02] MEDS: lamoTRIgine 100 MG TAB PO SCH (09:24)
[2023-11-02] MEDS: PANTOPRAZOLE 40 MG/10 ML VIAL IVP SCH (09:24)
[2023-11-02] MEDS: ATORVASTATIN 40 MG TAB PO SCH (09:24)
[2023-11-02] MEDS: hydrALAZINE HCL 50 MG TAB PO SCH (09:24)
[2023-11-02] MEDS: SODIUM BICARBONATE TAB 650 MG TAB PO SCH (09:24)
[2023-11-02] MEDS: SENNOSIDES 8.6 MG TAB PO SCH (09:24)
[2023-11-02] MEDS: amLODIPine 5 MG TAB PO SCH (09:24)
[2023-11-02 09:32] LABS: ALT 19 U/L (4-34); AST 21 U/L (14-36); African American GFR (CKD) 30 (>60 ml/min/1.73 sqM); Albumin 2.5 g/dL (3.5-5.0); Alkaline Phosphatase 117 U/L (38-126); Anion Gap 8 mmol/L; Blood Urea Nitrogen 40 mg/dL (7-17); Calcium 9.5 mg/dL (8.4-10.2); Carbon Dioxide 22 mmol/L (22-30); Chloride 101 mmol/L (98-107); Glucose 302 mg/dL (74-99); Non-African American GFR(CKD) 26 (>60 ml/min/1.73 sqM); Potassium 3.7 mmol/L (3.5-5.1); Sodium 131 mmol/L (137-145); Total Bilirubin 0.4 mg/dL (0.2-1.3); Total Protein 4.6 g/dL (6.3-8.2)
--- NOTE | 2023-11-02 10:27 | P.PN ---
Subjective Progress Note Date: 11/02/22 (Surgery) CHIEF COMPLAINT: Coffee-ground emesis HISTORY OF PRESENT ILLNESS: Patient is status post EGD which showed mild antral gastritis. Patient has had no further vomiting. No coffee-ground emesis. Denies any nausea vomiting. Hemoglobin stable at 15 PHYSICAL EXAM: VITAL SIGNS: Reviewed. GENERAL: Well-developed in no acute distress. ABDOMEN: Soft. Nondistended. Epigastric tenderness NEUROLOGIC: Alert and oriented. Cranial nerves II through XII grossly intact. ASSESSMENT: 1. Coffee ground emesis resolved. Status post EGD revealing mild antral gastritis 2. NSTEMI followed by cardiology 3. Daily NSAID use 4. History of gastritis and hiatal hernia PLAN: -Continue Protonix Objective - Vital Signs Vital signs: Vital Signs Temp 98 F 11/01/23 20:00 Pulse 63 11/02/23 04:00 Resp 16 11/02/23 04:00 BP 156/71 11/02/23 04:00 Pulse Ox 95 11/02/23 04:00 FiO2 Intake & Output 11/01/23 11/02/23 11/02/23 18:59 06:59 18:59 Intake Total 180 0 Balance 180 0 Weight 101.8 kg Intake: Oral 180 0 Other: Voiding Method Bedside Commode Bedside Commode # Voids 1 - Labs CBC & Chem 7: 11/02/23 07:35 11/02/23 07:35 Labs: Abnormal Lab Results - Last 24 Hours (Table) 11/01/23 11/01/23 11/01/23 Range/Units 11:18 11:24 16:29 Sodium 131 L (137-145) mmol/L Carbon Dioxide 20 L (22-30) mmol/L BUN 42 H (7-17) mg/dL Creatinine 2.06 H (0.52-1.04) mg/dL Glucose 322 H (74-99) mg/dL POC Glucose (mg/dL) 338 H 345 H (70-110) mg/dL Total Protein (6.3-8.2) g/dL Albumin (3.5-5.0) g/dL 11/01/23 11/02/23 11/02/23 Range/Units 20:09 06:11 07:35 Sodium 131 L (137-145) mmol/L Carbon Dioxide (22-30) mmol/L BUN 40 H (7-17) mg/dL Creatinine 2.11 H (0.52-1.04) mg/dL Glucose 302 H (74-99) mg/dL POC Glucose (mg/dL) 366 H 339 H (70-110) mg/dL Total Protein 4.6 L (6.3-8.2) g/dL Albumin 2.5 L (3.5-5.0) g/dL
[2023-11-02 10:40] VITALS: BP 128/60; PULSE 59; RESP 18; TEMP 97.9
[2023-11-02 11:27] LABS: Glucose,Whole Blood 333 mg/dL (70-110)
--- NOTE | 2023-11-02 11:27 | P.PN ---
Subjective Patient is seen in follow-up for acute kidney injury on chronic kidney disease. Renal function stable. Currently on IV fluids. Has been voiding. Tolerating oral intake. Blood pressure well controlled this morning. Vital signs are stable. General: No acute distress. HEENT: Head exam is unremarkable. On room air. LUNGS: No audible rhonchi or wheezes. HEART: Rate and Rhythm are regular. ABDOMEN: Nontender. EXTREMITITES: No edema. Objective - Vital Signs Vital signs: Vital Signs Temp 97.9 F 11/02/23 09:20 Pulse 59 L 11/02/23 09:20 Resp 18 11/02/23 09:20 BP 128/60 11/02/23 09:20 Pulse Ox 99 11/02/23 09:20 FiO2 Intake & Output 11/01/23 11/02/23 11/02/23 18:59 06:59 18:59 Intake Total 180 0 Balance 180 0 Weight 101.8 kg Intake: Oral 180 0 Other: Voiding Method Bedside Commode Bedside Commode Bedside Commode # Voids 1 - Labs CBC & Chem 7: 11/02/23 07:35 11/02/23 07:35 Labs: Abnormal Lab Results - Last 24 Hours (Table) 11/01/23 11/01/23 11/01/23 Range/Units 11:18 11:24 16:29 Sodium 131 L (137-145) mmol/L Carbon Dioxide 20 L (22-30) mmol/L BUN 42 H (7-17) mg/dL Creatinine 2.06 H (0.52-1.04) mg/dL Glucose 322 H (74-99) mg/dL POC Glucose (mg/dL) 338 H 345 H (70-110) mg/dL Total Protein (6.3-8.2) g/dL Albumin (3.5-5.0) g/dL 11/01/23 11/02/23 11/02/23 Range/Units 20:09 06:11 07:35 Sodium 131 L (137-145) mmol/L Carbon Dioxide (22-30) mmol/L BUN 40 H (7-17) mg/dL Creatinine 2.11 H (0.52-1.04) mg/dL Glucose 302 H (74-99) mg/dL POC Glucose (mg/dL) 366 H 339 H (70-110) mg/dL Total Protein 4.6 L (6.3-8.2) g/dL Albumin 2.5 L (3.5-5.0) g/dL Assessment and Plan Plan: Assessment: 1. Acute kidney injury secondary to hemodynamic ATN, IV contrast which was given 10/29/2023 as well as losartan. Was also taking NSAIDs outpatient. Creatinine is low as 1.18 this admission and up to 2.5 dated 10/31/2023 - 2.11 today. No hydronephrosis noted on CAT scan. 2. Non-ST elevated myocardial infarction. Cardiology following. Cardiac catheterization will be done outpatient. 3. Chronic kidney disease stage IIIB with baseline creatinine 1.6-1.7. UA with 3+ protein and no blood. Suspect diabetic kidney disease. 4. Coffee-ground emesis being followed by surgery. EGD showed gastritis. 5. Hypertensive urgency. Improved. 6. Diabetes mellitus. 7. Coronary artery disease with multiple stents. 8. Hypertonic hyponatremia secondary to hyperglycemia. 9. Metabolic acidosis secondary to acute kidney injury. On oral bicarbonate. Better. Plan: Maintain gentle IV hydration. Avoid nephrotoxins. Continue to hold losartan for now. Hold hydralazine and amlodipine for systolic blood pressure less than 120. May need cardiac catheterization in the near future. Discussed risk of worsening renal function, potentially requiring renal replacement therapy, post- IV contrast exposure. She understands. Follow up outpatient in 1 week post discharge. Patient will need IV hydration pre-and post IV contrast exposure as a preventative measure to avoid kidney injury. Repeat BMP and magnesium level 2-3 days postdischarge. Blood sugar control.
--- NOTE | 2023-11-02 11:53 | P.DS ---
Providers Date of admission: 10/27/23 14:01 Expected date of discharge: 11/02/23 Attending physician: Evin Sanchez Consults: 10/27/23 14:01 Consult Physician Urgent Consulting Provider: Julian Briones Consult Reason/Comments: Non-STEMI Do you want consulting provider notified?: Yes 10/29/23 09:27 Consult Physician Routine Consulting Provider: Lencho Jennings Consult Reason/Comments: coffee ground emesis Do you want consulting provider notified?: Yes 10/30/23 11:43 Consult Physician Routine Consulting Provider: Marlyn Kirkland Consult Reason/Comments: SAIRA Do you want consulting provider notified?: Yes Primary care physician: Dagmar Hennessy [facility] Course: Diagnosis on discharge: Acute non-ST elevated IN Hypertensive emergency and admission Episode of Coffee-ground emesis. Heparin drip DC'd Acute kidney injury. 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 Has a significant past medical history of coronary artery disease with stent placement 5, hypertension, diabetes on insulin pump, DVT, fibromyalgia, hypertension, hyperlipidemia, obstructive sleep apnea, and ovarian cancer, factor V disorder, CVA, DVTs anxiety and depression.. Patient is also a current every day smoker. Upon arrival patient was noted to have elevated troponins 0.0153, 0.3198 0.355 patient's is also noted to have significantly elevated blood pressure. Patient was started on heparin drip and cardiology services were consulted On 10/29/2023 patient started complaining of abdominal pain patient also started to have acoffee-ground emesis. Per records heparin drip was DC'd. Surgical services following tentative plans for EGD. On 10/30/2023 patient alert and oriented 3. Discussed case with cardiology services per cardiology plans for EGD. Creatinine increasing to 2.04 bun 35 we'll consult nephrology services. White blood cell also elevated at 22.5 but it does appear patient received 1 time dose of IV steroids. Will repeat labs patient is afebrile at this time. Hemoglobin stable at 15.9. This time patient denies chest pain or shortness of breath. Patient denies nausea vomiting or diarrhea. Patient denies urinary burning or frequency. Cardiology, surgical nephrology service is consulted current vital signs temp 97.8, heart rate 76, respiratory rate 18, blood pressure 116/63 with a pulse ox 93% on room air 10/31/2023 patient's alert and oriented 3. Plans for EGD today. Awaiting nephrology input for acute kidney injury. Patient was started on normal saline at 50 per cardiology. White blood cell improving to 11.5. Creatinine 2.51 and bun 46. Current vital signs temp 98.1, heart rate 52, blood pressure 122/69 with a pulse ox 94% on room air On 11/01/2023 patient's alert and oriented 3. Status post EGD showing antral gastritis. Creatinine increased history 2.5 1.46 nephrology services are following. Vital signs temp 98.6, heart rate 83, respiratory rate 18, blood pressure 142/76 with pulse of 93% on room air. Patient denies chest pain or shortness of breath. Patient denies nausea vomiting or diarrhea. Patient denies any urinary burning or frequency On 11/02/2023 patient was seen and examined on the telemetry floor, she is alert and oriented 3 in no apparent distress, there is no fever or chills no headache or dizziness, no chest pain no shortness of breath no cough no nausea or vomiting no abdominal pain no diarrhea and no urinary symptoms. BUN today is 40 and creatinine 2.11 patient states that she is feeling much better and insisting on going home. She was cleared for discharge by cardiology, plan is for cardiac catheterization in the next few weeks as outpatient. I spoke with Dr. Mara sánchez about this patient, and he cleared her for discharge. Patient will be discharged to home today. Importance of following up with nephrology and cardiology was emphasized repeatedly, patient will also follow-up with her primary care physician Dr. Hennessy. Plan - Discharge Summary Discharge Rx Participant: No New Discharge Prescriptions: New Sodium Bicarbonate Tab 650 mg PO DAILY 30 Days #30 tab hydrALAZINE HCL [Apresoline] 50 mg PO TID 90 Days #30 tab Atorvastatin [Lipitor] 40 mg PO DAILY 30 Days #30 tab amLODIPine [Norvasc] 5 mg PO BID 60 Days #30 tab Continue Aspirin [Adult Low Dose Aspirin EC] 81 mg PO DAILY DULoxetine HCL [Cymbalta] 60 mg PO DAILY Isosorbide Mononitrate ER [Imdur] 60 mg PO DAILY ARIPiprazole [Abilify] 2 mg PO HS Albuterol Nebulized [Ventolin Nebulized] 2.5 mg INHALATION RT-QID PRN PRN Reason: Shortness Of Breath Famotidine 20 mg PO BID Nitroglycerin Sl Tabs [Nitrostat] 0.4 mg SL Q5M PRN PRN Reason: Chest Pain Pioglitazone [Actos] 15 mg PO DAILY Pregabalin [Lyrica] 150 mg PO BID Furosemide [Lasix] 20 mg PO DAILY PRN PRN Reason: Edema INSULIN LISPRO (For Pump) [humaLOG (For Pump)] 0.01 units SQ-PUMP CONTINUOUS HYDROmorphone [Dilaudid] 2 mg PO BID PRN PRN Reason: Pain Empagliflozin [Jardiance] 10 mg PO DAILY Lacosamide [Vimpat] 50 mg PO BID 28 Days #14 tab Fenofibrate [Lofibra] 160 mg PO DAILY lamoTRIgine [LaMICtal Xr] 250 mg PO DAILY Multivit-Min/Folic Acid/[id number] [Alive Premium Adult Multivit] 1 tab PO DAILY Rimegepant Sulfate [Nurtec Odt] 75 mg PO DAILY PRN PRN Reason: Migraine Headache ALPRAZolam [Xanax] 2 mg PO HS PRN PRN Reason: Anxiety carvediloL [Coreg] 25 mg PO BID Budesonide/Formoterol Fumarate [Symbicort 160-4.5 Mcg Inhaler] 2 puff INHALATION RT-BID Promethazine/Dextromethorphan [Promethazine-Dm 6.25-15 mg/5Ml] 5 ml PO Q6H PRN PRN Reason: Cough Sucralfate [Carafate] 1 gm PO ACHS Discontinued Atorvastatin [Lipitor] 20 mg PO HS cloNIDine 0.1 MG/24HR PATCH [Catapres-TTS] 0.1 mg TRANSDERM TH Discharge Medication List Aspirin [Adult Low Dose Aspirin EC] 81 mg PO DAILY 11/26/17 [History] DULoxetine HCL [Cymbalta] 60 mg PO DAILY 08/25/18 [History] Isosorbide Mononitrate ER [Imdur] 60 mg PO DAILY 09/08/18 [History] ARIPiprazole [Abilify] 2 mg PO HS 11/08/20 [History] Albuterol Nebulized [Ventolin Nebulized] 2.5 mg INHALATION RT-QID PRN 10/06/22 [History] Empagliflozin [Jardiance] 10 mg PO DAILY 10/06/22 [History] Famotidine 20 mg PO BID 10/06/22 [History] Nitroglycerin Sl Tabs [Nitrostat] 0.4 mg SL Q5M PRN 10/06/22 [History] Pioglitazone [Actos] 15 mg PO DAILY 10/06/22 [History] Lacosamide [Vimpat] 50 mg PO BID 28 Days #14 tab 10/18/22 [Rx] Fenofibrate [Lofibra] 160 mg PO DAILY 01/25/23 [History] Multivit-Min/Folic Acid/[id number] [Alive Premium Adult Multivit] 1 tab PO DAILY 01/25/23 [History] Rimegepant Sulfate [Nurtec Odt] 75 mg PO DAILY PRN 01/25/23 [History] lamoTRIgine [LaMICtal Xr] 250 mg PO DAILY 01/25/23 [History] ALPRAZolam [Xanax] 2 mg PO HS PRN 02/05/23 [History] Pregabalin [Lyrica] 150 mg PO BID 02/05/23 [History] carvediloL [Coreg] 25 mg PO BID 02/05/23 [History] Budesonide/Formoterol Fumarate [Symbicort 160-4.5 Mcg Inhaler] 2 puff INHALATION RT-BID 07/17/23 [History] Furosemide [Lasix] 20 mg PO DAILY PRN 07/17/23 [History] INSULIN LISPRO (For Pump) [humaLOG (For Pump)] 0.01 units SQ-PUMP CONTINUOUS 07/17/23 [History] Promethazine/Dextromethorphan [Promethazine-Dm 6.25-15 mg/5Ml] 5 ml PO Q6H PRN 07/17/23 [History] HYDROmorphone [Dilaudid] 2 mg PO BID PRN 10/27/23 [History] Sucralfate [Carafate] 1 gm PO ACHS 10/27/23 [History] Atorvastatin [Lipitor] 40 mg PO DAILY 30 Days #30 tab 11/02/23 [Rx] Sodium Bicarbonate Tab 650 mg PO DAILY 30 Days #30 tab 11/02/23 [Rx] amLODIPine [Norvasc] 5 mg PO BID 60 Days #30 tab 11/02/23 [Rx] hydrALAZINE HCL [Apresoline] 50 mg PO TID 90 Days #30 tab 11/02/23 [Rx] Follow up Appointment(s)/Referral(s): Dagmar Hennessy MD [Primary Care Provider] - 1-2 days
--- NOTE | 2023-11-02 13:15 | P.PN ---
Subjective Progress Note Date: 11/02/23 The patient is a 53-year-old female who presented to the hospital with worsening shortness of breath and chest discomfort. At the time of arrival she was noted to be in hypertensive crisis and had mildly elevated troponins. Thereafter the patient had coffee ground emesis and continued elevated blood pressure readings.. Plans for coronary intervention were canceled and patient underwent EGD, which revealed mild antral gastritis. The patient has done well since her EGD. Yesterday her blood pressure regimen was adjusted for hypertension and she remains reasonably well controlled. She denies any current cardiac symptoms including chest pain and shortness of breath. GENERAL: Well-appearing, well-nourished and in no acute distress. NECK: Supple without JVD or thyromegaly. LUNGS: Breath sounds clear to auscultation bilaterally. Respiration equal and unlabored. No wheezes, rales or rhonchi. HEART: Regular rate and rhythm without murmurs, rubs or gallops. S1 and S2 heard. EXTREMITIES: Normal range of motion, no edema. No clubbing or cyanosis. Peripheral pulses intact and strong. TELEMETRY: Sinus rhythm overnight IMPRESSION: NSTEMI Prior CAD status post PCI to LAD, RCA, diagonal Prior history of CVA Hypertensive urgency on admission, but controlled now Morbid obesity Type II Diabetes Noncompliance Tobacco smoker Acute GI bleed Acute kidney injury PLAN: Continue current cardiac regimen Patient may be discharged from the cardiac standpoint Outpatient follow-up with primary outpatient services director Dr. Jasso I am dictating on behalf of Dr Luis F Pompa's history/physical and assessment/plan. Objective - Vital Signs Vital signs: Vital Signs Temp 97.9 F 11/02/23 09:20 Pulse 59 L 11/02/23 09:20 Resp 18 11/02/23 09:20 BP 128/60 11/02/23 09:20 Pulse Ox 99 11/02/23 09:20 FiO2 Intake & Output 11/01/23 11/02/23 11/02/23 18:59 06:59 18:59 Intake Total 180 0 Balance 180 0 Weight 101.8 kg Intake: Oral 180 0 Other: Voiding Method Bedside Commode Bedside Commode Bedside Commode # Voids 1 - Labs CBC & Chem 7: 11/02/23 07:35 11/02/23 07:35 Labs: Abnormal Lab Results - Last 24 Hours (Table) 11/01/23 11/01/23 11/02/23 Range/Units 16:29 20:09 06:11 Sodium (137-145) mmol/L BUN (7-17) mg/dL Creatinine (0.52-1.04) mg/dL Glucose (74-99) mg/dL POC Glucose (mg/dL) 345 H 366 H 339 H (70-110) mg/dL Total Protein (6.3-8.2) g/dL Albumin (3.5-5.0) g/dL 11/02/23 11/02/23 Range/Units 07:35 11:26 Sodium 131 L (137-145) mmol/L BUN 40 H (7-17) mg/dL Creatinine 2.11 H (0.52-1.04) mg/dL Glucose 302 H (74-99) mg/dL POC Glucose (mg/dL) 333 H (70-110) mg/dL Total Protein 4.6 L (6.3-8.2) g/dL Albumin 2.5 L (3.5-5.0) g/dL
== END 2023-11-02 12:40 | disposition home or self-care (01) | DRG 190 ==
LOC: EC 10:37 → 3SCARD 14:01
PROVIDERS: ADMIT Internal Medicine; ATTEND Internal Medicine
PROC: 0DB78ZX Excision of Stomach, Pylorus, Via Natural or Artificial Opening Endoscopic, Diagnostic (ICD-10-PCS; principal; 2023-10-27)
DX: I21.3 ST elevation (STEMI) myocardial infarction of unspecified site (principal); I16.1 Hypertensive emergency; Z79.4 Long term (current) use of insulin; Z96.41 Presence of insulin pump (external) (internal); I25.110 Atherosclerotic heart disease of native coronary artery with unstable angina pectoris; E11.65 Type 2 diabetes mellitus with hyperglycemia; Z86.718 Personal history of other venous thrombosis and embolism; Z79.01 Long term (current) use of anticoagulants; M79.7 Fibromyalgia; G89.29 Other chronic pain; E78.5 Hyperlipidemia, unspecified; K21.9 Gastro-esophageal reflux disease without esophagitis; I69.351 Hemiplegia and hemiparesis following cerebral infarction affecting right dominant side; G47.33 Obstructive sleep apnea (adult) (pediatric); E11.42 Type 2 diabetes mellitus with diabetic polyneuropathy; E11.51 Type 2 diabetes mellitus with diabetic peripheral angiopathy without gangrene; F17.210 Nicotine dependence, cigarettes, uncomplicated; Z91.199 Patient's noncompliance with other medical treatment and regimen due to unspecified reason; N17.0 Acute kidney failure with tubular necrosis; N18.32 Chronic kidney disease, stage 3b; E11.22 Type 2 diabetes mellitus with diabetic chronic kidney disease; D68.51 Activated protein C resistance; E66.01 Morbid (severe) obesity due to excess calories; E87.1 Hypo-osmolality and hyponatremia; E87.20 Acidosis, unspecified; I16.0 Hypertensive urgency; F32.A Depression, unspecified; F40.240 Claustrophobia; G25.81 Restless legs syndrome; I25.2 Old myocardial infarction; I45.10 Unspecified right bundle-branch block; K44.9 Diaphragmatic hernia without obstruction or gangrene; Z79.51 Long term (current) use of inhaled steroids; Z79.82 Long term (current) use of aspirin; Z79.84 Long term (current) use of oral hypoglycemic drugs; Z79.891 Long term (current) use of opiate analgesic; Z79.899 Other long term (current) drug therapy; Z82.49 Family history of ischemic heart disease and other diseases of the circulatory system; Z85.41 Personal history of malignant neoplasm of cervix uteri; Z85.42 Personal history of malignant neoplasm of other parts of uterus; Z85.43 Personal history of malignant neoplasm of ovary; Z90.710 Acquired absence of both cervix and uterus; Z95.5 Presence of coronary angioplasty implant and graft; Z91.041 Radiographic dye allergy status; Z91.013 Allergy to seafood; K92.0 Hematemesis; K29.70 Gastritis, unspecified, without bleeding; Z90.49 Acquired absence of other specified parts of digestive tract; Z98.51 Tubal ligation status
CPT/HCPCS: 36415; 43239; 71046; 74022; 74177; 80048; 80053; 80061; 81001; 83036; 83721; 83735; 84443; 84484; 85025; 85027; 85610; 85730; 88305; 93005; 93306; 94640; 94760; 96365; 96366; 96367; 96375; 99291

== ENCOUNTER 2023-12-11 06:13 | Day surgery (SDC) | payer OTHER ==
[2023-12-09 09:04] VITALS: BMI 22.6
[~2023-12-11 06:13] MED LIST changes: +ALPRAZolam 0.25 MG TAB PO PRN; +ALPRAZolam 0.5 MG TAB PO PRN; +HEPARIN SODIUM,PORCINE (1 ML) 2,500 UNIT in SODIUM CHLORIDE 0.9% 250 ML IRRIGATION PRN; +HEPARIN SODIUM,PORCINE 10,000 UNIT in SODIUM CHLORIDE 0.9% 1,000 ML IRRIGATION PRN; +NITROGLYCERIN SL TABS 0.4 MG TAB SUBLINGUAL PRN; -REGADENOSON 0.4 MG/5 ML SYRINGE IV PRN
[2023-12-11] MEDS: SODIUM CHLORIDE 0.9% 1,000 ML IV ONE (06:41)
[2023-12-11 07:05] LABS: Glucose,Whole Blood 177 mg/dL (70-110)
[2023-12-11] MEDS: methylPREDNISolone SOD SUCCI 125 MG/2 ML VIAL ONE (07:12)
[2023-12-11] MEDS: FAMOTIDINE 20 MG/2 ML VIAL ONE (07:12)
[2023-12-11] MEDS: diphenhydrAMINE 50 MG/ML 1 ML VIAL ONE (07:13)
[2023-12-11 07:23] LABS: Basophils # (A) 0.1 k/uL (0-0.2); Basophils % (A) 1 %; Eosinophils # (A) 0.2 k/uL (0-0.7); Eosinophils % (A) 1 %; HGB 13.2 gm/dL (11.4-16.0); Lymphocytes # (A) 2.5 k/uL (1.0-4.8); Lymphocytes % (A) 19 %; MCH 32.9 pg (25.0-35.0); MCHC 33.8 g/dL (31.0-37.0); MCV 97.3 fL (80.0-100.0); Mean Platelet Volume 9.7; Monocytes # (A) 0.5 k/uL (0-1.0); Monocytes % (A) 4 %; Neutrophils # (A) 9.8 k/uL (1.3-7.7); Neutrophils % (A) 74 %; Platelet Count 293 k/uL (150-450); RBC 4.01 m/uL (3.80-5.40); RDW 13.8 % (11.5-15.5); WBC 13.2 k/uL (3.8-10.6)
[2023-12-11] MEDS ORDERED: LIDOCAINE 1% INJ 10MG/ML (20 ML MDV) ONE (09:54)
[2023-12-11] MEDS ORDERED: VERAPAMIL 2.5 MG/ML 2 ML AMP ONE (09:54)
[2023-12-11] MEDS: MIDAZOLAM 2 MG/2 ML VIAL IVP ONE (10:48)
[2023-12-11] MEDS: LIDOCAINE 1% INJ 10MG/ML (30 ML VIAL-PF) SQ ONE (10:48)
[2023-12-11] MEDS: fentaNYL (PF) 50 MCG/ML 2 ML AMP IVP ONE (10:49)
[2023-12-11] MEDS: FUROSEMIDE 10 MG/ML 4 ML VIAL IV ONE (11:14)
[2023-12-11] MEDS: SODIUM CHLORIDE 0.9% 1,000 ML in EMPTY BAG 1 BAG IV SCH (17:26)
[2023-12-11] MEDS: ATORVASTATIN 80 MG TAB PO ONE (17:27)
[2023-12-11] MEDS: ASPIRIN 325 MG TAB PO ONE (17:27)
[2023-12-11 19:07] VITALS: BP 159/77; PULSE 82; RESP 18; TEMP 97.3
--- NOTE | 2023-12-11 20:10 | CC ---
CARDIAC CATHETERIZATION REPORT INDICATIONS: [id number] elevation MD. This is a 53-year-old lady with history of CAD status post multivessel angioplasty who had an episode of [id number] elevation MD in September. Continues to have exertional shortness of breath and was advised to undergo cardiac catheterization for further evaluation. She has renal insufficiency with a creatinine of 1.8, her contrast threshold is 76 mL. She understands contrast nephropathy and the risks associated with it. PROCEDURE NOTE: After obtaining informed consent, left heart catheterization and coronary angiogram were performed via the right femoral artery using standard Nidhi catheters. The patient tolerated the procedure well without any obvious immediate complications. Manual hemostasis will be obtained at the end of the procedure. I could not do radial catheter. Her radial pulses are very feeble, on the right side were barely palpated. The patient received moderate conscious sedation. Total sedation time was 25 minutes. FINDINGS: 1. Hemodynamics: Left ventricular end-diastolic pressure is 30 mm. There is no significant gradient across the aortic valve. 2. Left Ventriculogram: Left ventriculogram is not performed. 3. Angiographic Data: a.Right Coronary Artery: Right coronary artery is a large dominant vessel and was stented extensively in the mid RCA portion. There is 50% to 60% in-stent restenosis noted. b.Left main coronary artery is calcified but is free of stenosis, divides into left anterior descending coronary artery and circumflex coronary artery. Circumflex coronary artery shows mild nonobstructive disease with calcified LAD and the diagonal previously stented in the mid LAD. There is moderate nonobstructive disease. The ostial portion of the diagonal branch shows a 40% to 50% stenosis. CONCLUSION: 1. 60% mid RCA stenosis involving the previously stented segment. 2. Patent stents within the RCA, LAD, and the diagonal with moderate nonobstructive disease involving the LAD in the ostial portion of the diagonal branch. PLAN: I am going to have Dr. Mckeon, the on-call business administration instructor perform an FFR of the right coronary artery lesion and if this is significant, bring her back at a later date and perform angioplasty of the same. MMODL / IJN: [id number] /
--- NOTE | 2023-12-11 22:54 | P.PCN ---
Description of Procedure: Procedures performed: iFR RCA Procedure performed by: Dr Eligio Mckeon DO Indications: NSTEMI, SOB Conscious sedation: Conscious sedation was performed under the direct supervion of myself using Versed and Fentanyl for a total of 10 mins. Description of procedure: The risks, benefits and alternatives of heart catheterization and PCI were explained in detail to the patient before the procedure and informed consent was obtained. Patient had diagnostic coronary angiography performed by my partner and was left on the catheterization table. Patient had been prepped and draped in the usual fashion and a 6Fr sheath had been placed in the right femoral artery by my partner. A decision was made to perform iFR on the RCA. Heparin was given. A 6Fr FR5 guide was used to engage the RCA. A 0.014 pressure wire was inserted into the proximal artery then normalized. The wire was then placed 1cm distal to the mid lesion and iFR was performed and was abnormal at 0.84. Given contrast threshold, no intervention was recommended at this setting. The wire was removed. The right femoral sheath had been felt best pulled with manual pressure to avoid more contrast. The patient tolerated the procedure well. The patient was transferred to the post catheterization holding area in stable condition. Conclusions: 1. iFR proximal to mid RCA abnormal at 0.84 Plan: 1. Aggressive risk factor modifications per most recent ACC/AHA guidelines. 2. Given long area with prior stents with increased parts puller risk of reste nosis, may consider medical therapy. If patient having consistent angina, would recommend a staged PCI of the RCA.
== END 2023-12-11 21:42 | disposition home or self-care (01) ==
LOC: CATHCVL 06:13 → 6NMEDSUR 14:14 → CATHCVL 21:42
PROVIDERS: ATTEND Internal Medicine Cardiovascular Disease
DX: I25.10 Atherosclerotic heart disease of native coronary artery without angina pectoris (principal); I21.4 Non-ST elevation (NSTEMI) myocardial infarction; E11.9 Type 2 diabetes mellitus without complications; I10 Essential (primary) hypertension; F17.210 Nicotine dependence, cigarettes, uncomplicated; Z79.82 Long term (current) use of aspirin; Z79.02 Long term (current) use of antithrombotics/antiplatelets; Z79.899 Other long term (current) drug therapy; Z79.84 Long term (current) use of oral hypoglycemic drugs; Z79.4 Long term (current) use of insulin; Z91.041 Radiographic dye allergy status; Z95.5 Presence of coronary angioplasty implant and graft; Z88.2 Allergy status to sulfonamides
CPT/HCPCS: 99152; 93458; 93799; 85025; C1769 ×3; C1894 ×2; C1887; J2250; J1200; J1940; J2930; J2001; J3010; J3490; J1644

== ENCOUNTER 2023-12-21 15:55 | Emergency (ER) | payer OTHER ==
[2023-12-21 16:20] VITALS: BP 148/81; PULSE 78; RESP 18; TEMP 98.5
--- NOTE | 2023-12-21 16:28 | ED ---
URI HPI - General Chief Complaint: Upper Respiratory Infection Stated Complaint: Cough/headache Time Seen by Provider: 12/21/23 16:27 Source: patient Mode of arrival: ambulatory Limitations: no limitations - History of Present Illness Initial Comments: 53-year-old female presenting with chief complaint of cough congestion and headache for the last 4 days. Patient is a current smoker, states that she has been having some difficulty breathing. She has been using her albuterol nebulizer at home. She denies chest pain. No nausea, vomiting, abdominal pain, diarrhea. She admits to sinus pressure and runny nose. No numbness, tingling, weakness, dizziness, palpitations. Cough is productive. - Related Data Home Medications Medication Instructions Recorded Confirmed Aspirin [Adult Low Dose Aspirin EC] 81 mg PO DAILY 11/26/17 12/11/23 DULoxetine HCL [Cymbalta] 60 mg PO DAILY 08/25/18 12/11/23 Isosorbide Mononitrate ER [Imdur] 60 mg PO DAILY 09/08/18 12/11/23 ARIPiprazole [Abilify] 2 mg PO HS 11/08/20 12/11/23 Albuterol Nebulized [Ventolin 2.5 mg INHALATION RT-QID PRN 10/06/22 12/09/23 Nebulized] Empagliflozin [Jardiance] 10 mg PO DAILY 10/06/22 12/11/23 Famotidine 20 mg PO BID 10/06/22 12/11/23 Nitroglycerin Sl Tabs [Nitrostat] 0.4 mg SL Q5M PRN 10/06/22 12/09/23 Fenofibrate [Lofibra] 160 mg PO DAILY 01/25/23 12/11/23 Multivit-Min/Folic Acid/Ank877 1 tab PO DAILY 01/25/23 12/11/23 [Alive Premium Adult Multivit] Rimegepant Sulfate [Nurtec Odt] 75 mg PO DAILY PRN 01/25/23 12/11/23 lamoTRIgine [LaMICtal Xr] 250 mg PO DAILY 01/25/23 12/11/23 ALPRAZolam [Xanax] 2 mg PO HS PRN 02/05/23 12/11/23 Pregabalin [Lyrica] 150 mg PO BID 02/05/23 12/11/23 carvediloL [Coreg] 25 mg PO BID 02/05/23 12/11/23 Budesonide/Formoterol Fumarate 2 puff INHALATION RT-BID 07/17/23 12/11/23 [Symbicort 160-4.5 Mcg Inhaler] INSULIN LISPRO (For Pump) [humaLOG 0.01 units SQ-PUMP CONTINUOUS 07/17/23 12/09/23 (For Pump)] Promethazine/Dextromethorphan 5 ml PO Q6H PRN 07/17/23 12/09/23 [Promethazine-Dm 6.25-15 mg/5Ml] HYDROmorphone [Dilaudid] 2 mg PO BID PRN 10/27/23 12/11/23 Sucralfate [Carafate] 1 gm PO ACHS 10/27/23 12/11/23 Atorvastatin [Lipitor] 40 mg PO HS 12/11/23 12/11/23 Previous Rx's Medication Instructions Recorded Lacosamide [Vimpat] 50 mg PO BID 28 Days #14 tab 10/18/22 Sodium Bicarbonate Tab 650 mg PO DAILY 30 Days #30 tab 11/02/23 amLODIPine [Norvasc] 5 mg PO BID 60 Days #30 tab 11/02/23 hydrALAZINE HCL [Apresoline] 50 mg PO TID 90 Days #30 tab 11/02/23 Azithromycin [Zithromax Z Pack] 1 tab PO DIRECTED #6 tab 12/21/23 Allergies Allergy/AdvReac Type Severity Reaction Status Date / Time Fish Containing Products Allergy Anaphylaxis Verified 12/21/23 16:09 Iodinated Contrast Media Allergy Anaphylaxis Verified 12/21/23 16:09 [Iodinated Contrast Media - IV Dye] Sulfa (Sulfonamide Allergy Anaphylaxis Verified 12/21/23 16:09 Antibiotics) sulfamethoxazole Allergy Anaphylaxis Verified 12/21/23 16:09 [From Septra] tree nut [Nut] Allergy Anaphylaxis Verified 12/21/23 16:09 trimethoprim [From Junra] Allergy Anaphylaxis Verified 12/21/23 16:09 Review of Systems ROS Statement: Those systems with pertinent positive or pertinent negative responses have been documented in the HPI. ROS Other: All systems not noted in ROS Statement are negative. 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 HAD DE 10/27/23 Last Myocardial Infarction Date:: LAST ONE 10/27/23 History of Any Multi-Drug Resistant Organisms: None Reported Past Surgical History: Section, Cholecystectomy, Heart Catheterization With Stent, Hysterectomy, Tubal Ligation, Uterine Ablation Additional Past Surgical History / Comment(s): vein stripping right leg, radio frequency ablation of right back-02/22/2015, four stents on 04/03/16 and one on march 05, ovaries removed, colonscopy- polyp removal Past Anesthesia/Blood Transfusion Reactions: Motion Sickness Additional Past Anesthesia/Blood Transfusion Reaction / Comment(s): mild claustrophobia Date of Last Stent Placement:: 04/03/16 Past Psychological History: Anxiety, Depression Smoking Status: Current every day smoker Past Alcohol Use History: None Reported Past Drug Use History: None Reported - Past Family History Father Family Medical History: Congestive Heart Failure (CHF), Coronary Artery Disease (CAD), Diabetes Mellitus Mother Family Medical History: Cancer, COPD, Hypertension, Respiratory Disorder Additional Family Medical History / Comment(s): emphysema, colon CA General Exam - General Exam Comments Initial Comments: Visual Physical Exam Vital signs reviewed General: Well-appearing, nontoxic, no acute distress. Head: Normocephalic, atraumatic Eyes: PERRLA, EOMI ENT: Airway patent Chest: Nonlabored breathing Skin: No visual rash, normal skin tone Neuro: Alert and oriented 3 Musculoskeletal: No gross abnormalities Limitations: no limitations General appearance: alert, in no apparent distress Head exam: Present: atraumatic, normocephalic Eye exam: Present: normal appearance ENT exam: Present: mucous membranes moist Neck exam: Present: normal inspection Respiratory exam: Present: wheezes (Minor expiratory wheezes). Absent: respiratory distress, rales, rhonchi, stridor, accessory muscle use Cardiovascular Exam: Present: regular rate, normal rhythm, normal heart sounds. Absent: systolic murmur, diastolic murmur, rubs, gallop, clicks Neurological exam: Present: alert, oriented X3 Psychiatric exam: Present: normal affect, normal mood Skin exam: Present: warm, dry Course Vital Signs 12/21/23 16:04 Temperature 98.5 F Pulse Rate 78 Respiratory 18 Rate Blood Pressure 148/81 O2 Sat by Pulse 96 Oximetry Medical Decision Making - Medical Decision Making Was pt. sent in by a medical professional or institution (, PA, [facility], urgent care, hospital, or residential...) When possible be specific @ -No Did you speak to anyone other than the patient for history (EMS, parent, family, police, friend...)? What history was obtained from this source @ -No Did you review nursing and triage notes (agree or disagree)? Why? @ -I reviewed and agree with nursing and triage notes Were old charts reviewed (outside hosp., previous admission, EMS record, old EKG, old radiological studies, urgent care reports/EKG's, residential records)? Report findings @ -No old charts were reviewed Differential Diagnosis (chest pain, altered mental status, abdominal pain women, abdominal pain men, vaginal bleeding, weakness, fever, dyspnea, syncope, headache, dizziness, GI bleed, back pain, seizure, CVA, palpatations, mental health, musculoskeletal)? @ -Differential includes influenza, RSV, COVID, pneumonia, bronchitis, COPD, asthma, this is not an all-inclusive list EKG interpreted by me (3pts min.). @ -As above X-rays interpreted by me (1pt min.). @ -Chest x-ray shows right lower lung hazy and reticular opacities which may be mildly increased from prior. Correlate for signs and symptoms of pneumonia. CT interpreted by me (1pt min.). @ -None done U/S interpreted by me (1pt. min.). @ -None done What testing was considered but not performed or refused? (CT, X-rays, U/S, labs)? Why? @ -None What meds were considered but not given or refused? Why? @ -None Did you discuss the management of the patient with other professionals (professionals i.e. , PA, [facility], lab, RT, psych nurse, social service technician, personnel training officer, teacher, personnel training officer, upper caser)? Give summary @ -No Was smoking cessation discussed for >3mins.? @ -No Was critical care preformed (if so, how long)? @ -No Were there social determinants of health that impacted care today? How? (Ho melessness, low income, unemployed, alcoholism, drug addiction, transportation, low edu. Level, literacy, decrease access to med. care, long-term, rehab)? @ -No Was there de-escalation of care discussed even if they declined (Discuss DNR or withdrawal of care, Hospice)? DNR status @ -No What co-morbidities impacted this encounter? (DM, HTN, Smoking, COPD, CAD, Cancer, CVA, ARF, Chemo, Hep., AIDS, mental health diagnosis, sleep apnea, morbid obesity)? @ -None Was patient admitted / discharged? Hospital course, mention meds given and route, prescriptions, significant lab abnormalities, going to OR and other pertinent info. @ -53-year-old female presenting with chief complaint of cough congestion and headache ongoing for the last 4 days. History and physical exam are conducted. Patient does have some expiratory wheezes heard on auscultation. She is positive for COVID. Chest x-ray is concerning for right lower lobe pneumonia. Patient will be treated with azithromycin. She is given IM Solu-Medrol and albuterol inhaler here in the ER. She is instructed to continue her albuterol nebulizers at home. Follow-up with PCP. Discharged home. Follow-up with PCP. Report back to ER with any new or worsening symptoms. Discussed return parameters and answered all questions. Patient conveyed verbal understanding and agreed to the plan. I discussed this case in detail with my attending Dr. Lopez Undiagnosed new problem with uncertain prognosis? @ -No Drug Therapy requiring intensive monitoring for toxicity (Heparin, Nitro, Insulin, Cardizem)? @ -No Were any procedures done? @ -No Diagnosis/symptom? @ -COVID, pneumonia Acute, or Chronic, or Acute on Chronic? @ -Acute Uncomplicated (without systemic symptoms) or Complicated (systemic symptoms)? @ -Uncomplicated Side effects of treatment? @ -No Exacerbation, Progression, or Severe Exacerbation? @ -No Poses a threat to life or bodily function? How? (Chest pain, USA, DE, pneumonia, PE, COPD, DKA, ARF, appy, cholecystitis, CVA, Diverticulitis, Homicidal, Suicidal, threat to staff... and all critical care pts) @ -No - Lab Data Lab Results 12/21/23 Range/Units 16:41 Influenza Type A (PCR) Not Detected (Not Detectd) Influenza Type B (PCR) Not Detected (Not Detectd) RSV (PCR) Not Detected (Not Detectd) SARS-CoV-2 (PCR) Detected A (Not Detectd) Disposition Clinical Impression: COVID-19, Pneumonia Disposition: HOME SELF-CARE Condition: Fair Instructions (If sedation given, give patient instructions): Viral Pneumonia (ED), COVID-19 (Coronavirus Disease 2019) (ED) Additional Instructions: Follow-up with PCP. Report back to ER with any new or worsening symptoms. Prescriptions: Azithromycin [Zithromax Z Pack] 1 tab PO DIRECTED #6 tab Is patient prescribed a controlled substance at d/c from ED?: No Referrals: Dagmar Hennessy MD [Primary Care Provider] - 1-2 days Time of Disposition: 17:39
--- NOTE | 2023-12-21 16:58 | XR ---
EXAMINATION TYPE: XR chest 2V DATE OF EXAM: 12/21/2023 4:52 PM CLINICAL INDICATION:Female, 53 years old with history of cough; [facility] COMPARISON: Chest radiographs from 10/27/2023 TECHNIQUE: XR chest 2V Frontal and lateral views of the chest. FINDINGS: Lungs/Pleura: Increased reticular and hazy opacities in the right lung base. There is no evidence of pleural effusion, focal consolidation, or pneumothorax. Pulmonary vascularity: Unremarkable. Heart/mediastinum: Cardiomediastinal silhouette is unremarkable. Musculoskeletal: No acute osseous pathology. IMPRESSION: Right lower lung hazy and reticular opacities which may be mildly increased from prior. Correlate for signs and symptoms of pneumonia.
[2023-12-21] MEDS: ALBUTEROL HFA INHALER INHALATION STA (17:58)
[2023-12-21] MEDS: ACETAMINOPHEN TAB 325 MG TAB PO STA (17:58)
[2023-12-21] MEDS: IBUPROFEN 600 MG TAB PO STA (17:59)
[2023-12-21] MEDS: methylPREDNISolone SOD SUCCI 125 MG/2 ML VIAL IM ONE (18:05)
== END 2023-12-21 18:28 | disposition home or self-care (01) ==
LOC: EC 15:55
DX: U07.1 COVID-19 (principal); J12.82 Pneumonia due to coronavirus disease 2019; I25.10 Atherosclerotic heart disease of native coronary artery without angina pectoris; E11.9 Type 2 diabetes mellitus without complications; I10 Essential (primary) hypertension; I25.2 Old myocardial infarction; G47.30 Sleep apnea, unspecified; E78.5 Hyperlipidemia, unspecified; F41.9 Anxiety disorder, unspecified; F32.A Depression, unspecified; F17.200 Nicotine dependence, unspecified, uncomplicated; Z79.82 Long term (current) use of aspirin; Z79.84 Long term (current) use of oral hypoglycemic drugs; Z79.4 Long term (current) use of insulin; Z79.899 Other long term (current) drug therapy; Z91.013 Allergy to seafood; Z91.041 Radiographic dye allergy status; Z88.2 Allergy status to sulfonamides; Z88.1 Allergy status to other antibiotic agents; Z91.010 Allergy to peanuts
CPT/HCPCS: 87636; 71046; 99284; 96372; J2930

== ENCOUNTER → 2024-02-26 | Outpatient (CLI) | payer OTHER ==
[2024-02-26 19:02] LABS: HCT 43.2 % (37.2-46.3); HGB 13.9 g/dL (12.0-15.0); MCH 30.8 pg (27.0-32.0); MCHC 32.2 g/dL (32.0-37.0); MCV 95.6 FL (80.0-97.0); Mean Platelet Volume 12.2 FL (9.5-12.2); NRBC Per 100 WBC 0 X 10*3/uL (0.00-0.01); Platelet Count 246 X 10*3/uL (140-440); RBC 4.52 X 10*6/uL (4.10-5.20); RDW 14.3 % (11.5-14.5); WBC 10.48 X 10*3/uL (4.50-10.00)
[2024-02-26 19:43] LABS: Hepatitis A Antibody IgM Nonreactive (Nonreactive); Hepatitis B Core IgM Nonreactive (Nonreactive); Hepatitis B Surface Antigen Nonreactive (Nonreactive); Hepatitis C IgG Antibody Nonreactive (Nonreactive)
[2024-02-26 19:48] LABS: % Iron Saturation 14.18 (12.00-45.00); ALT 15 U/L (8-44); AST 15 U/L (13-35); Albumin 3.8 g/dL (3.8-4.9); Alkaline Phosphatase 146 U/L (41-126); BUN/Creat Ratio 9.45 Ratio (12.00-20.00); Blood Urea Nitrogen 20.8 mg/dL (9.0-27.0); Calcium 10.2 mg/dL (8.7-10.3); Carbon Dioxide 22.8 mmol/L (21.6-31.8); Chloride 100 mmol/L (96-109); Ferritin 41.6 ng/mL (10.0-291.0); Globulin 1.9 g/dL (1.6-3.3); Glucose 418 mg/dL (70-110); Iron 58 UG/DL (50-170); Magnesium 2.1 mg/dL (1.5-2.4); Phosphorus 3.3 mg/dL (2.4-5.1); Sodium 135 mmol/L (135-145); Total Bilirubin 0.2 mg/dL (0.3-1.2); Total Iron Binding Capacity 409 UG/DL (228-460); Total Protein 5.7 g/dL (6.2-8.2); Uric Acid 5.1 mg/dL (2.9-7.7)
[2024-02-26 20:00] LABS: Appearance,Urine Clear (Clear); Bilirubin,Urine Negative (Negative); Blood,Urine Negative (Negative); Color,Urine Yellow (Yellow); Ketones,Urine Negative (Negative); Nitrite,Urine Negative (Negative); Specific Gravity,Urine 1.025 (1.001-1.030); Urobilinogen,Urine 0.2 E.U./DL
[2024-02-26 20:07] LABS: Urine Creatinine 33.2 mg/dL (28.0-217.0)
[2024-02-26 20:43] LABS: Bacteria,Urine None Seen (None Seen); Yeast (UA) Present (None Seen)
[2024-02-26 22:39] LABS: DNA Double-Stranded Negative (Negative)
[2024-02-27 10:53] LABS: Angiotensin-1 Converting Enz. 66 U/L (8-52)
[2024-02-27 14:01] LABS: C-ANCA <1:20 Titer (<1:20)
[2024-02-27 21:16] LABS: Vitamin D, 1, 25-Dihydroxy 12 pg/mL (20 - 79)
== END | disposition home or self-care (01) ==
LOC: LABWHC1 12:46
PROVIDERS: ATTEND Internal Medicine
DX: E55.9 Vitamin D deficiency, unspecified (principal); E11.65 Type 2 diabetes mellitus with hyperglycemia; E11.22 Type 2 diabetes mellitus with diabetic chronic kidney disease; N39.0 Urinary tract infection, site not specified; N25.81 Secondary hyperparathyroidism of renal origin; M10.9 Gout, unspecified; N18.32 Chronic kidney disease, stage 3b; D63.1 Anemia in chronic kidney disease; R80.9 Proteinuria, unspecified
CPT/HCPCS: 36415; 80053; 80074; 81001; 82043; 82164; 82306; 82570; 82652; 82728; 83036; 83516; 83540; 83550; 83735; 83883; 83970; 84100; 84166; 84550; 85027; 86038; 86160; 86225; 86255; 86334

== ENCOUNTER → 2024-03-03 | Outpatient (CLI) | payer OTHER ==
--- NOTE | 2024-03-03 10:38 | US ---
EXAMINATION TYPE: US kidneys/renal and bladder DATE OF EXAM: 03/03/2024 COMPARISON: 08/02/2021 CLINICAL INDICATION: Female, 53 years old with history of N18.3 CHRONIC KIDNEY DISEASE, STAGE 3 UNSPE CIFIED; CKD 4 EXAM MEASUREMENTS: Right Kidney: 13.8 x 4.7 x 4.4 cm Left Kidney: 13.3 x 5.7 x 4.0 cm Right Kidney: No hydronephrosis or masses seen Left Kidney: No hydronephrosis or masses seen Bladder: Anechoic Bilateral Jets seen: no There is no evidence for hydronephrosis at this point in time. No nephrolithiasis is seen. No beba s are identified. The urinary bladder is anechoic. Bilateral ureteral jets are seen. IMPRESSION: No evidence for obstructive uropathy.
== END | disposition home or self-care (01) ==
LOC: RADUSWWP 07:58
PROVIDERS: ATTEND Internal Medicine
DX: N18.4 Chronic kidney disease, stage 4 (severe) (principal)
CPT/HCPCS: 76770

== ENCOUNTER 2024-03-07 19:41 | Emergency (ER) | payer OTHER ==
--- NOTE | 2024-03-07 19:50 | ED ---
Extremity Problem HPI - General Chief complaint: Extremity Problem,Nontraumatic Stated complaint: R leg pain, swelling, redness Time Seen by Provider: 03/07/24 19:50 Source: patient, RN notes reviewed Mode of arrival: wheelchair Limitations: no limitations - History of Present Illness Initial comments: This is a 53-year-old female with a history of chronic kidney disease and DVT who presents to the emergency department chief complaint of right lower ex tremity erythema, edema, and tightness over the past week. Patient states that she went to her primary care provider over a week ago where she was diagnosed with cellulitis and given an outpatient prescription for Keflex. Patient states that the redness subsided, but since 03/05 through today her leg has been increasingly more painful, feelings of tightness, erythema has worsened. She a lso endorses feelings of nausea and 2 episodes of emesis today. Endorses mild fevers. Denies history of PE or [place], no current blood thinners. - Related Data Home Medications Medication Instructions Recorded Confirmed Aspirin [Adult Low Dose Aspirin EC] 81 mg PO DAILY 11/26/17 12/11/23 DULoxetine HCL [Cymbalta] 60 mg PO DAILY 08/25/18 12/11/23 Isosorbide Mononitrate ER [Imdur] 60 mg PO DAILY 09/08/18 12/11/23 ARIPiprazole [Abilify] 2 mg PO HS 11/08/20 12/11/23 Albuterol Nebulized [Ventolin 2.5 mg INHALATION RT-QID PRN 10/06/22 12/09/23 Nebulized] Empagliflozin [Jardiance] 10 mg PO DAILY 10/06/22 12/11/23 Famotidine 20 mg PO BID 10/06/22 12/11/23 Nitroglycerin Sl Tabs [Nitrostat] 0.4 mg SL Q5M PRN 10/06/22 12/09/23 Fenofibrate [Lofibra] 160 mg PO DAILY 01/25/23 12/11/23 Multivit-Min/Folic Acid/Bcr335 1 tab PO DAILY 01/25/23 12/11/23 [Alive Premium Adult Multivit] Rimegepant Sulfate [Nurtec Odt] 75 mg PO DAILY PRN 01/25/23 12/11/23 lamoTRIgine [LaMICtal Xr] 250 mg PO DAILY 01/25/23 12/11/23 ALPRAZolam [Xanax] 2 mg PO HS PRN 02/05/23 12/11/23 Pregabalin [Lyrica] 150 mg PO BID 02/05/23 12/11/23 carvediloL [Coreg] 25 mg PO BID 02/05/23 12/11/23 Budesonide/Formoterol Fumarate 2 puff INHALATION RT-BID 07/17/23 12/11/23 [Symbicort 160-4.5 Mcg Inhaler] INSULIN LISPRO (For Pump) [humaLOG 0.01 units SQ-PUMP CONTINUOUS 07/17/23 12/09/23 (For Pump)] Promethazine/Dextromethorphan 5 ml PO Q6H PRN 07/17/23 12/09/23 [Promethazine-Dm 6.25-15 mg/5Ml] HYDROmorphone [Dilaudid] 2 mg PO BID PRN 10/27/23 12/11/23 Sucralfate [Carafate] 1 gm PO ACHS 10/27/23 12/11/23 Atorvastatin [Lipitor] 40 mg PO HS 12/11/23 12/11/23 Previous Rx's Medication Instructions Recorded Lacosamide [Vimpat] 50 mg PO BID 28 Days #14 tab 10/18/22 Sodium Bicarbonate Tab 650 mg PO DAILY 30 Days #30 tab 11/02/23 amLODIPine [Norvasc] 5 mg PO BID 60 Days #30 tab 11/02/23 hydrALAZINE HCL [Apresoline] 50 mg PO TID 90 Days #30 tab 11/02/23 Azithromycin [Zithromax Z Pack] 1 tab PO DIRECTED #6 tab 12/21/23 clindamycin HCL 300 mg PO QID #40 cap 03/07/24 Allergies Allergy/AdvReac Type Severity Reaction Status Date / Time Fish Containing Products Allergy Anaphylaxis Verified 12/21/23 16:09 Iodinated Contrast Media Allergy Anaphylaxis Verified 12/21/23 16:09 [Iodinated Contrast Media - IV Dye] Sulfa (Sulfonamide Allergy Anaphylaxis Verified 12/21/23 16:09 Antibiotics) sulfamethoxazole Allergy Anaphylaxis Verified 12/21/23 16:09 [From Septra] tree nut [Nut] Allergy Anaphylaxis Verified 12/21/23 16:09 trimethoprim [From Septra] Allergy Anaphylaxis Verified 12/21/23 16:09 Review of Systems ROS Statement: Those systems with pertinent positive or pertinent negative responses have been documented in the HPI. ROS Other: All systems not noted in ROS Statement are negative. 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 HAD [place] 10/27/23 Last Myocardial Infarction Date:: LAST ONE 10/27/23 History of Any Multi-Drug Resistant Organisms: None Reported Past Surgical History: Section, Cholecystectomy, Heart Catheterization With Stent, Hysterectomy, Tubal Ligation, Uterine Ablation Additional Past Surgical History / Comment(s): vein stripping right leg, radio frequency ablation of right back-02/22/2015, four stents on 04/03/16 and one on march 05, ovaries removed, colonscopy- polyp removal Past Anesthesia/Blood Transfusion Reactions: Motion Sickness Additional Past Anesthesia/Blood Transfusion Reaction / Comment(s): mild claustrophobia Date of Last Stent Placement:: 04/03/16 Past Psychological History: Anxiety, Depression Smoking Status: Current every day smoker Past Alcohol Use History: None Reported Past Drug Use History: None Reported - Past Family History Father Family Medical History: Congestive Heart Failure (CHF), Coronary Artery Disease (CAD), Diabetes Mellitus Mother Family Medical History: Cancer, COPD, Hypertension, Respiratory Disorder Additional Family Medical History / Comment(s): emphysema, colon CA General Exam Limitations: no limitations General appearance: alert, in no apparent distress Head exam: Present: atraumatic, normocephalic, normal inspection Eye exam: Present: normal appearance, PERRL, EOMI. Absent: scleral icterus, conjunctival injection, periorbital swelling ENT exam: Present: normal exam, mucous membranes moist Neck exam: Present: normal inspection. Absent: tenderness, meningismus, lymphadenopathy Respiratory exam: Present: normal lung sounds bilaterally. Absent: respiratory distress, wheezes, rales, rhonchi, stridor Cardiovascular Exam: Present: regular rate, normal rhythm, normal heart sounds. Absent: systolic murmur, diastolic murmur, rubs, gallop, clicks GI/Abdominal exam: Present: soft, normal bowel sounds. Absent: distended, t enderness, guarding, rebound, rigid Left Lower Leg exam: Present: tenderness, swelling, erythema (anterior leg) Back exam: Present: normal inspection Neurological exam: Present: alert, oriented X3, CN II-XII intact Psychiatric exam: Present: normal affect, normal mood Skin exam: Present: warm, dry, intact, normal color, other (see above). Absent: rash Course Vital Signs 03/07/24 03/07/24 19:43 21:36 Temperature 98.5 F 98.1 F Pulse Rate 77 85 Respiratory 16 16 Rate Blood Pressure 188/97 199/72 O2 Sat by Pulse 99 94 L Oximetry Medical Decision Making - Medical Decision Making Was pt. sent in by a medical professional or institution (, PA, CENTRAL COMMUNICATIONS SPECIALIST, urgent care, hospital, or detention...) When possible be specific @ -No Did you speak to anyone other than the patient for history (EMS, parent, family, police, friend...)? What history was obtained from this source @ -No Did you review nursing and triage notes (agree or disagree)? Why? @ -I reviewed and agree with nursing and triage notes Were old charts reviewed (outside hosp., previous admission, EMS record, old EKG, old radiological studies, urgent care reports/EKG's, detention records)? Report findings @ -No old charts were reviewed Differential Diagnosis (chest pain, altered mental status, abdominal pain women, abdominal pain men, vaginal bleeding, weakness, fever, dyspnea, syncope, headache, dizziness, GI bleed, back pain, seizure, CVA, palpatations, mental health, musculoskeletal)? @ -Cellulitis, deep vein thrombosis, superficial thrombophlebitis, venous insufficiency, this list is not all inclusive. EKG interpreted by me (3pts min.). @ -None X-rays interpreted by me (1pt min.). @ -None done CT interpreted by me (1pt min.). @ -None done U/S interpreted by me (1pt. min.). @ -duplex ultrasound of the right lower extremity no evidence for DVT. What testing was considered but not performed or refused? (CT, X-rays, U/S, labs)? Why? @ -None What meds were considered but not given or refused? Why? @ -None Did you discuss the management of the patient with other professionals (professionals i.e. , PA, CENTRAL COMMUNICATIONS SPECIALIST, lab, RT, psych nurse, social sciences professor, csr technician, teacher, correctional probation officer, embedded case manager)? Give summary @ -No Was smoking cessation discussed for >3mins.? @ -No Was critical care preformed (if so, how long)? @ -No Were there social determinants of health that impacted care today? How? (Homelessness, low income, unemployed, alcoholism, drug addiction, transpo rtation, low edu. Level, literacy, decrease access to med. care, alf, rehab)? @ -No Was there de-escalation of care discussed even if they declined (Discuss DNR or withdrawal of care, Hospice)? DNR status @ -No What co-morbidities impacted this encounter? (DM, HTN, Smoking, COPD, CAD, Cancer, CVA, ARF, Chemo, Hep., AIDS, mental health diagnosis, sleep apnea, morbid obesity)? @ -Kidney disease, diabetes. Was patient admitted / discharged? Hospital course, mention meds given and route, prescriptions, significant lab abnormalities, going to OR and other pertinent info. @ -Discharge. 53-year-old female chief complaint of right lower extremity erythema and edema. On examination patient noted to have mild erythema of the right lower extremity and 1+ pitting edema. She is afebrile on examination, vitals within normal limits. There are no obvious signs of infection present. At this time infectious workup obtained addition to ultrasound of the extremity to rule out DVT. Blood work result negative for leukocytosis or acute infection. CMP revealed a mildly elevated lactate of 2.6 and elevated glucose of 415. Discussion with patient at bedside laboratory findings and ultrasound, patient will be discharged home on oral antibiotics instructed follow-up with her primary care provider next week for further evaluation. Strict return parameters discussed with the patient. Patient's vitals are stable for discharge. Patient does not meet criteria for admission for IV antibiotics as her vitals are stable, no signs of fever or tachycardia. Patient's respiratory rate equal and nonlabored additionally no signs of leukocytosis. Patient will be sent home with antibiotics. Case discussed with Dr. Lewis Undiagnosed new problem with uncertain prognosis? @ -No Drug Therapy requiring intensive monitoring for toxicity (Heparin, Nitro, Insulin, Cardizem)? @ -No Were any procedures done? @ -No Diagnosis/symptom? @ -Cellulitis Acute, or Chronic, or Acute on Chronic? @ -Acute Uncomplicated (without systemic symptoms) or Complicated (systemic symptoms)? @ -uncomplicated Side effects of treatment? @ -No Exacerbation, Progression, or Severe Exacerbation? @ -No Poses a threat to life or bodily function? How? (Chest pain, [place], [place], pneumonia, PE, COPD, DKA, ARF, appy, cholecystitis, CVA, Diverticulitis, Homicidal, Suicidal, threat to staff... and all critical care pts) @ -No - Lab Data Result diagrams: 03/07/24 20:11 03/07/24 20:11 Lab Results 03/07/24 03/07/24 03/07/24 Range/Units 20:11 20:11 20:11 WBC 10.4 (3.8-10.6) k/uL RBC 4.53 (3.80-5.40) m/uL Hgb 14.0 (11.4-16.0) gm/dL Hct 44.9 (34.0-46.0) % MCV 98.9 (80.0-100.0) fL MCH 31.0 (25.0-35.0) pg MCHC 31.3 (31.0-37.0) g/dL RDW 14.4 (11.5-15.5) % Plt Count 253 (150-450) k/uL MPV 9.9 Neutrophils % 70 % Lymphocytes % 21 % Monocytes % 6 % Eosinophils % 2 % Basophils % 1 % Neutrophils # 7.3 (1.3-7.7) k/uL Lymphocytes # 2.2 (1.0-4.8) k/uL Monocytes # 0.6 (0-1.0) k/uL Eosinophils # 0.2 (0-0.7) k/uL Basophils # 0.1 (0-0.2) k/uL Sodium 134 L (137-145) mmol/L Potassium 5.3 H (3.5-5.1) mmol/L Chloride 107 (98-107) mmol/L Carbon Dioxide 18 L (22-30) mmol/L Anion Gap 9 mmol/L BUN 27 H (7-17) mg/dL Creatinine 1.83 H (0.52-1.04) mg/dL Est GFR (CKD-EPI)AfAm 36 (>60 ml/min/1.73 sqM) Est GFR (CKD-EPI)NonAf 31 (>60 ml/min/1.73 sqM) Glucose 415 H (74-99) mg/dL Plasma Lactic Acid Faheem 2.6 H* (0.7-2.0) mmol/L Calcium 9.9 (8.4-10.2) mg/dL Total Bilirubin 0.8 (0.2-1.3) mg/dL AST 40 H (14-36) U/L ALT 19 (4-34) U/L Alkaline Phosphatase 119 (38-126) U/L Total Protein 6.4 (6.3-8.2) g/dL Albumin 3.7 (3.5-5.0) g/dL Disposition Clinical Impression: Cellulitis of leg, right Narrative: Please return to the Emergency Department if symptoms worsen or any other concerns. Complete full course of antibiotics as prescribed. Follow-up with your primary care provider next week for further evaluation. Disposition: HOME SELF-CARE Condition: Good Instructions (If sedation given, give patient instructions): Cellulitis (ED) Prescriptions: clindamycin HCL 300 mg PO QID #40 cap Is patient prescribed a controlled substance at d/c from ED?: No Referrals: Dagmar Hennessy MD [Primary Care Provider] - 1-2 days Time of Disposition: 21:56
[2024-03-07 19:57] VITALS: RESP 16
[2024-03-07 20:32] LABS: ALT 19 U/L (4-34); AST 40 U/L (14-36); African American GFR (CKD) 36 (>60 ml/min/1.73 sqM); Albumin 3.7 g/dL (3.5-5.0); Alkaline Phosphatase 119 U/L (38-126); Anion Gap 9 mmol/L; Blood Urea Nitrogen 27 mg/dL (7-17); Calcium 9.9 mg/dL (8.4-10.2); Carbon Dioxide 18 mmol/L (22-30); Chloride 107 mmol/L (98-107); Glucose 415 mg/dL (74-99); Non-African American GFR(CKD) 31 (>60 ml/min/1.73 sqM); Sodium 134 mmol/L (137-145); Total Bilirubin 0.8 mg/dL (0.2-1.3); Total Protein 6.4 g/dL (6.3-8.2)
[2024-03-07 20:37] LABS: Basophils # (A) 0.1 k/uL (0-0.2); Basophils % (A) 1 %; Eosinophils # (A) 0.2 k/uL (0-0.7); Eosinophils % (A) 2 %; HCT 44.9 % (34.0-46.0); Lymphocytes # (A) 2.2 k/uL (1.0-4.8); Lymphocytes % (A) 21 %; MCHC 31.3 g/dL (31.0-37.0); MCV 98.9 fL (80.0-100.0); Mean Platelet Volume 9.9; Monocytes # (A) 0.6 k/uL (0-1.0); Monocytes % (A) 6 %; Neutrophils # (A) 7.3 k/uL (1.3-7.7); Neutrophils % (A) 70 %; Platelet Count 253 k/uL (150-450); RBC 4.53 m/uL (3.80-5.40); RDW 14.4 % (11.5-15.5); WBC 10.4 k/uL (3.8-10.6)
[2024-03-07 20:38] LABS: Potassium 5.3 mmol/L (3.5-5.1)
--- NOTE | 2024-03-07 21:47 | US ---
EXAMINATION TYPE: US venous doppler duplex LE RT DATE OF EXAM: 03/07/2024 8:37 PM COMPARISON: NONE CLINICAL INDICATION: Female, 53 years old with history of pain, redness, swelling; possible right leg infection, no h/o dvt SIDE PERFORMED: Right TECHNIQUE: The lower extremity deep venous system is examined utilizing real time linear array sonog mahsa with graded compression, doppler sonography and color-flow sonography. VESSELS IMAGED: Common Femoral Vein Deep Femoral Vein Greater Saphenous Vein * Femoral Vein Popliteal Vein Small Saphenous Vein * Proximal Calf Veins (* superficial vessels) There is normal flow, compressibility, vascular waveforms. Right Leg: Negative for DVT IMPRESSION: No evidence of DVT right lower extremity.
[2024-03-07 21:57] VITALS: BP 199/72; PULSE 85; TEMP 98.1
== END 2024-03-07 22:11 | disposition home or self-care (01) ==
LOC: EC 19:41
DX: L03.115 Cellulitis of right lower limb (principal); F17.200 Nicotine dependence, unspecified, uncomplicated; Z91.013 Allergy to seafood; Z91.041 Radiographic dye allergy status; Z88.2 Allergy status to sulfonamides; Z88.8 Allergy status to other drugs, medicaments and biological substances; Z88.1 Allergy status to other antibiotic agents
CPT/HCPCS: 36415; 80053; 83605; 85025; 99284

== ENCOUNTER → 2024-03-09 | Outpatient (CLI) | payer OTHER | END | disposition home or self-care (01) | LOC: LABWHC1 14:58 | PROVIDERS: ATTEND Internal Medicine | DX: E55.9 Vitamin D deficiency, unspecified (principal); N39.0 Urinary tract infection, site not specified; N25.81 Secondary hyperparathyroidism of renal origin; M10.9 Gout, unspecified; N18.32 Chronic kidney disease, stage 3b; D63.1 Anemia in chronic kidney disease; R80.9 Proteinuria, unspecified | CPT/HCPCS: 36415; 86162 ==

== ENCOUNTER → 2024-03-16 | Outpatient (CLI) | payer OTHER ==
[2024-03-16 10:23] LABS: Basophils # (A) 0.1 k/uL (0-0.2); Basophils % (A) 1 %; Eosinophils # (A) 0.2 k/uL (0-0.7); Eosinophils % (A) 2 %; HCT 44.9 % (34.0-46.0); HGB 14.1 gm/dL (11.4-16.0); Lymphocytes # (A) 1.9 k/uL (1.0-4.8); Lymphocytes % (A) 17 %; MCH 30.9 pg (25.0-35.0); MCHC 31.5 g/dL (31.0-37.0); MCV 97.9 fL (80.0-100.0); Mean Platelet Volume 9.5; Monocytes # (A) 0.5 k/uL (0-1.0); Monocytes % (A) 4 %; Neutrophils # (A) 8.7 k/uL (1.3-7.7); Neutrophils % (A) 75 %; Platelet Count 307 k/uL (150-450); RBC 4.59 m/uL (3.80-5.40); RDW 14.2 % (11.5-15.5); WBC 11.5 k/uL (3.8-10.6)
[2024-03-16 10:35] LABS: INR 0.9 (<1.2); Partial Thromboplastin Time 27.5 sec (22.0-30.0); Prothrombin Time 10.4 sec (10.0-12.5)
[2024-03-16 10:37] LABS: Potassium 4.4 mmol/L (3.5-5.1)
== END | disposition home or self-care (01) ==
LOC: LABPAT 09:46
PROVIDERS: ATTEND Internal Medicine Nephrology
DX: N18.32 Chronic kidney disease, stage 3b (principal)
CPT/HCPCS: 36415; 80051; 85025; 85610; 85730; 86850; 86900; 86901

== ENCOUNTER 2024-03-18 07:58 | Day surgery (SDC) | payer OTHER ==
[2024-03-18 08:47] VITALS: TEMP 97.8
[2024-03-18] MEDS ORDERED: DESMOPRESSIN ACETATE 32 MCG in SODIUM CHLORIDE 0.9% 50 ML IVPB ONE (09:00)
[2024-03-18] MEDS: DESMOPRESSIN ACETATE IVPB ONE (09:23)
[2024-03-18] MEDS: SODIUM CHLORIDE 0.9% IVPB ONE (09:23)
--- NOTE | 2024-03-18 11:20 | CT ---
EXAMINATION TYPE: CT biopsy renal LT DATE OF EXAM: 03/18/2024 11:15 AM CLINICAL INDICATION:Female, 53 years old with history of N18.32 CHRONIC KIDNEY DISEASE, STAGE 3B; lef t renal biopsy COMPARISON: 10/29/2023 CT DLP: 1840 mGycm, Automated exposure control for dose reduction was used. Contrast used: mL of , none Oral contrast used: none ATTENDING: Dr. Jose Betancourt TECHNIQUE: CT guided percutaneous random kidney cortex using coaxial method. One or more CT dose reduction strat egies were utilized during this examination. Total CT dose 1840 mGycm . FINDINGS: The procedure was explained to the patient including risks of bleeding, bruising, infection, damage t o nearby organs and need for additional therapy including potential surgery. All questions were answ ered and consent was obtained. The previous studies were reviewed. The patient was placed on the CT couch in the prone position Th e overlying skin was marked and prepped using sterile method. Timeout was taken per protocol. Followi ng administration of local anesthesia a 19 gauge coaxial needle was introduced on the left kidney cor brianna. The coaxial needle tip was directed into the left kidney cortex with CT guidance. Multiple 20 gauge coaxial biopsies were then obtained. Following the procedure the needle was removed and ster ile dressing was applied to the percutaneous site. Post biopsy imaging demonstrated small perinephri c hematoma. Patient was taken for postprocedure observation in stable condition. IMPRESSIONS: Status post percutaneous left kidney cortex biopsy as described above. Pathology results pending.
[2024-03-18 17:14] VITALS: BP 136/66; PULSE 69; RESP 16
== END 2024-03-18 14:29 | disposition home or self-care (01) ==
LOC: RADPROMAIN 07:58
PROVIDERS: ATTEND Internal Medicine Nephrology
DX: N18.32 Chronic kidney disease, stage 3b (principal)
CPT/HCPCS: 96365; 36415; 50200; 77012; J2597

== ENCOUNTER 2024-03-28 12:04 | Observation (INO) | payer OTHER ==
--- NOTE | 2024-03-28 12:26 | ED ---
General Adult HPI - General Chief complaint: Chest Pain Stated complaint: chest pain Time Seen by Provider: 03/28/24 12:10 Source: patient, EMS, RN notes reviewed, old records reviewed Mode of arrival: EMS Limitations: no limitations - History of Present Illness Initial comments: This is a 53-year-old female with a past medical history significant for c oronary artery disease with multiple heart attacks and multiple stent placements. Patient also has diabetes hypertension and was a previous smoker. Patient comes in today because she is having chest pain since 530 this morning. Patient states that also made her short of breath. Patient denies any diaphoretic episode. Patient denies any radiation of the pain. Patient states the pain was similar to her previous heart attack. Patient denies headache patient denies numbness weakness. Patient has any abdominal pain patient has nausea vomiting diarrhea - Related Data Home Medications Medication Instructions Recorded Confirmed Aspirin [Adult Low Dose Aspirin EC] 81 mg PO HS 11/26/17 03/28/24 DULoxetine HCL [Cymbalta] 60 mg PO DAILY 08/25/18 03/28/24 Isosorbide Mononitrate ER [Imdur] 60 mg PO DAILY 09/08/18 03/28/24 Empagliflozin [Jardiance] 10 mg PO DAILY 10/06/22 03/28/24 Famotidine 20 mg PO BID 10/06/22 03/28/24 Nitroglycerin Sl Tabs [Nitrostat] 0.4 mg SL Q5M PRN 10/06/22 03/28/24 Fenofibrate [Lofibra] 160 mg PO DAILY 01/25/23 03/28/24 lamoTRIgine [LaMICtal Xr] 250 mg PO DAILY 01/25/23 03/28/24 Pregabalin [Lyrica] 150 mg PO BID 02/05/23 03/28/24 carvediloL [Coreg] 25 mg PO BID 02/05/23 03/28/24 Budesonide/Formoterol Fumarate 2 puff INHALATION RT-BID 07/17/23 03/28/24 [Symbicort 160-4.5 Mcg Inhaler] INSULIN LISPRO (For Pump) [humaLOG 0.01 units SQ-PUMP CONTINUOUS 07/17/23 03/28/24 (For Pump)] HYDROmorphone [Dilaudid] 2 mg PO BID PRN 10/27/23 03/28/24 Atorvastatin [Lipitor] 40 mg PO HS 12/11/23 03/28/24 Magnesium Oxide [Mag-Ox] 400 mg PO BID 03/10/24 03/28/24 hydrALAZINE HCL [Apresoline] 50 mg PO TID 03/10/24 03/28/24 ALPRAZolam [Xanax] 1 mg PO TID PRN 03/28/24 03/28/24 ARIPiprazole [Abilify] 5 mg PO HS 03/28/24 03/28/24 Cinacalcet [Sensipar] 30 mg PO DIRECTED 03/28/24 03/28/24 Sodium Bicarbonate 650 mg PO DAILY 03/28/24 03/28/24 amLODIPine [Norvasc] 10 mg PO DAILY 03/28/24 03/28/24 Allergies Allergy/AdvReac Type Severity Reaction Status Date / Time Fish Containing Products Allergy Anaphylaxis Verified 03/28/24 12:11 Iodinated Contrast Media Allergy Anaphylaxis Verified 03/28/24 12:11 [Iodinated Contrast Media - IV Dye] Sulfa (Sulfonamide Allergy Anaphylaxis Verified 03/28/24 12:11 Antibiotics) sulfamethoxazole Allergy Anaphylaxis Verified 03/28/24 12:11 [From Septra] tree nut [Nut] Allergy Anaphylaxis Verified 03/28/24 12:11 trimethoprim [From Septra] Allergy Anaphylaxis Verified 03/28/24 12:11 Review of Systems ROS Statement: Those systems with pertinent positive or pertinent negative responses have been documented in the HPI. ROS Other: All systems not noted in ROS Statement are negative. 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 HAD TN 10/27/23 Last Myocardial Infarction Date:: LAST ONE 10/27/23 History of Any Multi-Drug Resistant Organisms: None Reported Past Surgical History: Section, Cholecystectomy, Heart Catheterization With Stent, Hysterectomy, Tubal Ligation, Uterine Ablation Additional Past Surgical History / Comment(s): vein stripping right leg, radio frequency ablation of right back-02/22/2015, four stents on 04/03/16 and one on march 05, ovaries removed, colonscopy- polyp removal Past Anesthesia/Blood Transfusion Reactions: Motion Sickness Additional Past Anesthesia/Blood Transfusion Reaction / Comment(s): mild claustrophobia Date of Last Stent Placement:: 04/03/16 Past Psychological History: Anxiety, Depression Smoking Status: Current every day smoker Past Alcohol Use History: None Reported Past Drug Use History: None Reported - Past Family History Father Family Medical History: Congestive Heart Failure (CHF), Coronary Artery Disease (CAD), Diabetes Mellitus Mother Family Medical History: Cancer, COPD, Hypertension, Respiratory Disorder Additional Family Medical History / Comment(s): emphysema, colon CA General Exam - General Exam Comments Initial Comments: GENERAL: Patient is well-developed and well-nourished. Patient is nontoxic and well- hydrated and is in mild distress. ENT: Neck is soft and supple. No significant lymphadenopathy is noted. Oropharynx is clear. Moist mucous membranes. Neck has full range of motion without eliciting any pain. EYES: The sclera were anicteric and conjunctiva were pink and moist. Extraocular movements were intact and pupils were equal round and reactive to light. Eyelids were unremarkable. PULMONARY: Unlabored respirations. Good breath sounds bilaterally. No audible rales rhonchi or wheezing was noted. CARDIOVASCULAR: There is a regular rate and rhythm without any murmurs gallops or rubs. ABDOMEN: Soft and nontender with normal bowel sounds. SKIN: Skin is clear with no lesions or rashes and otherwise unremarkable. NEUROLOGIC: Patient is alert and oriented x3. Cranial nerves II through XII are grossly intact. Motor and sensory are also intact. Normal speech, volume and content. Symmetrical smile. MUSCULOSKELETAL: Normal extremities with adequate strength and full range of motion. LYMPHATICS: No significant lymphadenopathy is noted PSYCHIATRIC: Normal psychiatric evaluation. Limitations: no limitations Course Vital Signs 03/28/24 03/28/24 03/28/24 12:08 12:40 14:38 Temperature 98.3 F Pulse Rate 82 75 84 Respiratory 18 18 18 Rate Blood Pressure 190/97 153/84 147/86 O2 Sat by Pulse 97 97 95 Oximetry Medical Decision Making - Medical Decision Making EKG is interpreted by myself. EKG shows a sinus rhythm at 82 bpm VA 155 QRS 173 QT interval is 437 QTc is 475. Patient has a right bundle branch block. There is no significant ST segment elevation. Was pt. sent in by a medical professional or institution ([facility], CUSTOMER SUPPORT PROFESSIONAL, urgent care, hospital, or fci...) When possible be specific @ -No Did you speak to anyone other than the patient for history (EMS, parent, family, police, friend...)? What history was obtained from this source @ -No Did you review nursing and triage notes (agree or disagree)? Why? @ -I reviewed and agree with nursing and triage notes Were old charts reviewed (outside hosp., previous admission, EMS record, old EKG, old radiological studies, urgent care reports/EKG's, fci records)? Report findings @ -I compared previous admissions with today's lab work patient's troponin was elevated higher than today's troponin elevation in the previous lab work. Differential Diagnosis (chest pain, altered mental status, abdominal pain women, abdominal pain men, vaginal bleeding, weakness, fever, dyspnea, syncope, headache, dizziness, GI bleed, back pain, seizure, CVA, palpatations, mental health, musculoskeletal)? @ -MDM differential chest EKG interpreted by me (3pts min.). @ -As above X-rays interpreted by me (1pt min.). @ -Chest x-ray shows no acute abnormality. CT interpreted by me (1pt min.). @ -None done U/S interpreted by me (1pt. min.). @ -None done What testing was considered but not performed or refused? (CT, X-rays, U/S, labs )? Why? @ -None What meds were considered but not given or refused? Why? @ -None Did you discuss the management of the patient with other professionals (professionals i.e. DENN[facility] Mayo, CUSTOMER SUPPORT PROFESSIONAL, lab, RT, psych nurse, social service technician, chief of planning, teacher, food safety officer, director case)? Give summary @ -I spoke with Dr. Sanchez he agreed to admit the patient but the patient wrote admitting orders Was smoking cessation discussed for >3mins.? @ -No Was critical care preformed (if so, how long)? @ -No Were there social determinants of health that impacted care today? How? (Homelessness, low income, unemployed, alcoholism, drug addiction, transportation, low edu. Level, literacy, decrease access to med. care, nursing home, rehab)? @ -No Was there de-escalation of care discussed even if they declined (Discuss DNR or withdrawal of care, Hospice)? DNR status @ -No What co-morbidities impacted this encounter? (DM, HTN, Smoking, COPD, CAD, Cancer, CVA, ARF, Chemo, Hep., AIDS, mental health diagnosis, sleep apnea, morbid obesity)? @ -None Was patient admitted / discharged? Hospital course, mention meds given and route, prescriptions, significant lab abnormalities, going to OR and other pertinent info. @ -Patient continued to have some chest pain that was improved from earlier today. I spoke with Dr. Sanchez he agreed to admit the patient I admitted the patient and consult cardiology. Patient's initial troponin was elevated to 0.081. Undiagnosed new problem with uncertain prognosis? @ -No Drug Therapy requiring intensive monitoring for toxicity (Heparin, Nitro, Insulin, Cardizem)? @ -No Were any procedures done? @ -No Diagnosis/symptom? @ -Chest Acute, or Chronic, or Acute on Chronic? @ -Acute Uncomplicated (without systemic symptoms) or Complicated (systemic symptoms)? @ -Default Side effects of treatment? @ -No Exacerbation, Progression, or Severe Exacerbation? @ -No Poses a threat to life or bodily function? How? (Chest pain, USA, TN, pneumonia, PE, COPD, DKA, ARF, appy, cholecystitis, CVA, Diverticulitis, Homicidal, Suicidal, threat to staff... and all critical care pts) @ -Yes this can lead to an TN and they can lead to poor perfusion and endorgan dysfunction - Lab Data Result diagrams: 03/28/24 12:26 03/28/24 12:26 Lab Results 03/28/24 03/28/24 03/28/24 Range/Units 12:26 12:26 12:26 WBC 10.5 (3.8-10.6) k/uL RBC 4.86 (3.80-5.40) m/uL Hgb 14.9 (11.4-16.0) gm/dL Hct 45.7 (34.0-46.0) % MCV 93.9 (80.0-100.0) fL MCH 30.7 (25.0-35.0) pg MCHC 32.7 (31.0-37.0) g/dL RDW 13.7 (11.5-15.5) % Plt Count 277 (150-450) k/uL MPV 9.7 Neutrophils % 71 % Lymphocytes % 22 % Monocytes % 3 % Eosinophils % 2 % Basophils % 1 % Neutrophils # 7.5 (1.3-7.7) k/uL Lymphocytes # 2.3 (1.0-4.8) k/uL Monocytes # 0.3 (0-1.0) k/uL Eosinophils # 0.2 (0-0.7) k/uL Basophils # 0.1 (0-0.2) k/uL PT 10.6 (10.0-12.5) sec INR 1.0 (<1.2) APTT 25.7 (22.0-30.0) sec Sodium 132 L (137-145) mmol/L Potassium 4.1 (3.5-5.1) mmol/L Chloride 106 (98-107) mmol/L Carbon Dioxide 21 L (22-30) mmol/L Anion Gap 5 mmol/L BUN 24 H (7-17) mg/dL Creatinine 1.66 H (0.52-1.04) mg/dL Est GFR (CKD-EPI)AfAm 41 (>60 ml/min/1.73 sqM) Est GFR (CKD-EPI)NonAf 35 (>60 ml/min/1.73 sqM) Glucose 366 H (74-99) mg/dL Calcium 10.2 (8.4-10.2) mg/dL Magnesium 1.6 (1.6-2.3) mg/dL Total Bilirubin 0.5 (0.2-1.3) mg/dL AST 23 (14-36) U/L ALT 20 (4-34) U/L Alkaline Phosphatase 189 H (38-126) U/L Troponin I (0.000-0.034) ng/mL Total Protein 5.7 L (6.3-8.2) g/dL Albumin 3.4 L (3.5-5.0) g/dL 03/28/24 Range/Units 12:26 WBC (3.8-10.6) k/uL RBC (3.80-5.40) m/uL Hgb (11.4-16.0) gm/dL Hct (34.0-46.0) % MCV (80.0-100.0) fL MCH (25.0-35.0) pg MCHC (31.0-37.0) g/dL RDW (11.5-15.5) % Plt Count (150-450) k/uL MPV Neutrophils % % Lymphocytes % % Monocytes % % Eosinophils % % Basophils % % Neutrophils # (1.3-7.7) k/uL Lymphocytes # (1.0-4.8) k/uL Monocytes # (0-1.0) k/uL Eosinophils # (0-0.7) k/uL Basophils # (0-0.2) k/uL PT (10.0-12.5) sec INR (<1.2) APTT (22.0-30.0) sec Sodium (137-145) mmol/L Potassium (3.5-5.1) mmol/L Chloride (98-107) mmol/L Carbon Dioxide (22-30) mmol/L Anion Gap mmol/L BUN (7-17) mg/dL Creatinine (0.52-1.04) mg/dL Est GFR (CKD-EPI)AfAm (>60 ml/min/1.73 sqM) Est GFR (CKD-EPI)NonAf (>60 ml/min/1.73 sqM) Glucose (74-99) mg/dL Calcium (8.4-10.2) mg/dL Magnesium (1.6-2.3) mg/dL Total Bilirubin (0.2-1.3) mg/dL AST (14-36) U/L ALT (4-34) U/L Alkaline Phosphatase (38-126) U/L Troponin I 0.081 H* (0.000-0.034) ng/mL Total Protein (6.3-8.2) g/dL Albumin (3.5-5.0) g/dL Critical Care Time Critical Care Time: Yes Total Critical Care Time: 35 Disposition Clinical Impression: Chest pain Disposition: ADMITTED IP TO THIS HOSP Time of Disposition: 14:14
[2024-03-28 12:32] LABS: Basophils # (A) 0.1 k/uL (0-0.2); Basophils % (A) 1 %; Eosinophils # (A) 0.2 k/uL (0-0.7); Eosinophils % (A) 2 %; HCT 45.7 % (34.0-46.0); HGB 14.9 gm/dL (11.4-16.0); Lymphocytes # (A) 2.3 k/uL (1.0-4.8); Lymphocytes % (A) 22 %; MCH 30.7 pg (25.0-35.0); MCHC 32.7 g/dL (31.0-37.0); MCV 93.9 fL (80.0-100.0); Mean Platelet Volume 9.7; Monocytes # (A) 0.3 k/uL (0-1.0); Monocytes % (A) 3 %; Neutrophils # (A) 7.5 k/uL (1.3-7.7); Neutrophils % (A) 71 %; Platelet Count 277 k/uL (150-450); RBC 4.86 m/uL (3.80-5.40); RDW 13.7 % (11.5-15.5); WBC 10.5 k/uL (3.8-10.6)
[2024-03-28 12:34] VITALS: RESP 18; TEMP 98.3
[2024-03-28] MEDS: ASPIRIN 81 MG PO STA (12:37)
[2024-03-28] MEDS: SODIUM CHLORIDE 0.9% 500 ML 500 ML IV STA (12:37)
[2024-03-28] MEDS: NITROGLYCERIN OINT 1 INCH/GM PACKET TOPICAL STA (12:39)
[2024-03-28 12:43] LABS: ALT 20 U/L (4-34); AST 23 U/L (14-36); African American GFR (CKD) 41 (>60 ml/min/1.73 sqM); Albumin 3.4 g/dL (3.5-5.0); Alkaline Phosphatase 189 U/L (38-126); Anion Gap 5 mmol/L; Blood Urea Nitrogen 24 mg/dL (7-17); Calcium 10.2 mg/dL (8.4-10.2); Carbon Dioxide 21 mmol/L (22-30); Chloride 106 mmol/L (98-107); Glucose 366 mg/dL (74-99); Magnesium 1.6 mg/dL (1.6-2.3); Non-African American GFR(CKD) 35 (>60 ml/min/1.73 sqM); Partial Thromboplastin Time 25.7 sec (22.0-30.0); Potassium 4.1 mmol/L (3.5-5.1); Prothrombin Time 10.6 sec (10.0-12.5); Sodium 132 mmol/L (137-145); Total Bilirubin 0.5 mg/dL (0.2-1.3); Total Protein 5.7 g/dL (6.3-8.2)
--- NOTE | 2024-03-28 13:28 | XR ---
EXAMINATION TYPE: XR chest 2V DATE OF EXAM: 03/28/2024 COMPARISON: 12/21/2023 HISTORY: Chest pain TECHNIQUE: Frontal and lateral views of the chest are obtained. FINDINGS: There is no focal air space opacity, pleural effusion, or pneumothorax seen. The cardiac silhouette size is within normal limits. The osseous structures are intact. IMPRESSION: No acute cardiopulmonary process.
[2024-03-28] MEDS ORDERED: NITROGLYCERIN SL TABS 0.4 MG TAB SUBLINGUAL PRN (14:15)
[2024-03-28] MEDS ORDERED: ALPRAZolam 1 MG TAB PO PRN (14:16)
[2024-03-28] MEDS ORDERED: INSULIN LISPRO (For Pump) 100 UNIT/ML VIAL SQ-PUMP SCH (14:30)
[2024-03-28] MEDS: HEPARIN SOD,PORK IN 0.45% NACL 25,000 UNIT in 0.45% NACL 1 250ML.BAG IV SCH (14:57)
[2024-03-28] MEDS: HEPARIN SODIUM 1,000 UN/ML (10ML VL) IV ONE (14:57)
[2024-03-28] MEDS: hydrALAZINE HCL 50 MG TAB PO SCH (16:21)
[2024-03-28 16:36] VITALS: PULSE 72
[2024-03-28 16:56] LABS: Glucose,Whole Blood 168 mg/dL (70-110)
[2024-03-28 17:24] VITALS: BP 140/78
[2024-03-28] MEDS ORDERED: carvediloL 12.5 MG TAB PO SCH (17:30)
[2024-03-28] MEDS ORDERED: NITROGLYCERIN OINT 1 INCH/GM PACKET TOPICAL SCH (18:00)
[2024-03-28] MEDS ORDERED: SYMBICORT 160-4.5 MCG INHALER INHALATION SCH (20:00)
[2024-03-28] MEDS ORDERED: PREGABALIN 75 MG CAP PO SCH (21:00)
[2024-03-28] MEDS ORDERED: FAMOTIDINE 20 MG TAB PO SCH (21:00)
[2024-03-28] MEDS ORDERED: MAGNESIUM OXIDE 400 MG TAB PO SCH (21:00)
[2024-03-28] MEDS ORDERED: ARIPiprazole 5 MG TAB PO SCH (21:00)
[2024-03-28] MEDS ORDERED: ATORVASTATIN 40 MG TAB PO SCH (21:00)
[2024-03-29] MEDS ORDERED: SODIUM BICARBONATE TAB 650 MG TAB PO SCH (09:00)
[2024-03-29] MEDS ORDERED: lamoTRIgine 100 MG TAB PO SCH (09:00)
[2024-03-29] MEDS ORDERED: ASPIRIN 325 MG TAB PO SCH (09:00)
[2024-03-29] MEDS ORDERED: amLODIPine 10 MG TAB PO SCH (09:00)
[2024-03-29] MEDS ORDERED: DULoxetine HCL 60 MG CAPSULE.DR PO SCH (09:00)
[2024-03-29] MEDS ORDERED: lamoTRIgine 25 MG TAB PO SCH (09:00)
[2024-03-29] MEDS ORDERED: FENOFIBRATE 160 MG TAB PO SCH (09:00)
[2024-03-29] MEDS ORDERED: ISOSORBIDE MONONITRATE ER 60 MG TAB.ER.24H PO SCH (09:00)
[2024-03-29] MEDS ORDERED: DAPAGLIFLOZIN PROPANEDIOL 5 MG TABLET PO SCH (09:00)
[2024-03-30] MEDS ORDERED: CINACALCET 30 MG TAB PO SCH (09:00)
== END 2024-03-28 18:48 | disposition left against medical advice (07) ==
LOC: SUPCPDRO 12:04 → EC 12:04 → 3SCARD 14:18
PROVIDERS: ADMIT Internal Medicine; ATTEND Internal Medicine
DX: R07.89 Other chest pain (principal); R79.89 Other specified abnormal findings of blood chemistry; I45.10 Unspecified right bundle-branch block; I25.10 Atherosclerotic heart disease of native coronary artery without angina pectoris; I10 Essential (primary) hypertension; E11.9 Type 2 diabetes mellitus without complications; I25.2 Old myocardial infarction; F17.200 Nicotine dependence, unspecified, uncomplicated; R10.9 Unspecified abdominal pain; R11.2 Nausea with vomiting, unspecified; R19.7 Diarrhea, unspecified; Z79.82 Long term (current) use of aspirin; Z79.84 Long term (current) use of oral hypoglycemic drugs; Z79.51 Long term (current) use of inhaled steroids; Z79.4 Long term (current) use of insulin; Z79.899 Other long term (current) drug therapy; Z88.1 Allergy status to other antibiotic agents; Z88.2 Allergy status to sulfonamides; Z91.041 Radiographic dye allergy status; Z91.018 Allergy to other foods; Z95.5 Presence of coronary angioplasty implant and graft; Z96.41 Presence of insulin pump (external) (internal); Z53.29 Procedure and treatment not carried out because of patient's decision for other reasons
CPT/HCPCS: 96361; 96374; 99291; 36415; 93005; 80053; 83735; 84484; 85025; 85610; 85730; 71046; G0378; J1644 ×2

== ENCOUNTER → 2024-04-06 | Outpatient (CLI) | payer OTHER ==
--- NOTE | 2024-04-07 07:42 | NM ---
EXAMINATION TYPE: NM parathyroid w/spect DATE OF EXAM: 04/06/2024 COMPARISON: NONE CLINICAL INDICATION: Female, 53 years old with history of E83.52 hypercalcemia; TECHNIQUE: Following administration of 22.6 mCi Tc99m Sestamibi. Anterior projection images of the neck and ches t were obtained 5 minutes and 3 hours post injection. SPECT images of the neck and chest were obtain ed and reconstructed in three axes. FINDINGS: Thyroid tracer washout: Delayed images demonstrate near-complete tracer washout from the thyroid. Parathyroid uptake: None. The two-hour delayed images do not demonstrate any focal abnormal persisten t uptake in the region of the parathyroid glands to suggest parathyroid adenoma. Normal uptake: There is physiological tracer uptake in the myocardium, liver, salivary glands, and th yroid gland. IMPRESSION: Normal parathyroid imaging study. No evidence for mediastinal uptake to suggest mediastinal parathyro id adenoma
== END | disposition home or self-care (01) ==
LOC: RADNMMAIN 11:30
PROVIDERS: ATTEND Internal Medicine Nephrology
DX: E83.52 Hypercalcemia (principal)
CPT/HCPCS: 78071; A9500

== ENCOUNTER 2024-05-03 21:41 | Inpatient (IN) | payer OTHER ==
[2024-05-03 22:36] LABS: Basophils # (A) 0.1 k/uL (0-0.2); Basophils % (A) 1 %; Eosinophils # (A) 0.2 k/uL (0-0.7); Eosinophils % (A) 2 %; HCT 43.1 % (34.0-46.0); HGB 13.7 gm/dL (11.4-16.0); Lymphocytes # (A) 3.3 k/uL (1.0-4.8); Lymphocytes % (A) 29 %; MCH 30.3 pg (25.0-35.0); MCHC 31.8 g/dL (31.0-37.0); MCV 95.1 fL (80.0-100.0); Mean Platelet Volume 10.2; Monocytes # (A) 0.4 k/uL (0-1.0); Monocytes % (A) 4 %; Neutrophils # (A) 7.2 k/uL (1.3-7.7); Neutrophils % (A) 64 %; Platelet Count 267 k/uL (150-450); RBC 4.53 m/uL (3.80-5.40); RDW 13.9 % (11.5-15.5); WBC 11.4 k/uL (3.8-10.6)
--- NOTE | 2024-05-03 22:45 | ED ---
General Adult HPI - General Chief complaint: Chest Pain Stated complaint: chest pain Time Seen by Provider: 05/03/24 21:58 Source: patient, family, EMS, RN notes reviewed, old records reviewed Mode of arrival: EMS Limitations: no limitations - History of Present Illness Initial comments: 53 old female with coronary artery disease presents for evaluation of chest pain. Patient had taken nitroglycerin prior to arrival as well as aspirin. She did have some relief. She has history of ischemic heart disease and multiple stents. She denies associated nausea or vomiting. Pain is central chest, described as a pressure sensation. - Related Data Home Medications Medication Instructions Recorded Confirmed Aspirin [Adult Low Dose Aspirin EC] 81 mg PO HS 11/26/17 03/28/24 DULoxetine HCL [Cymbalta] 60 mg PO DAILY 08/25/18 03/28/24 Isosorbide Mononitrate ER [Imdur] 60 mg PO DAILY 09/08/18 03/28/24 Empagliflozin [Jardiance] 10 mg PO DAILY 10/06/22 03/28/24 Famotidine 20 mg PO BID 10/06/22 03/28/24 Nitroglycerin Sl Tabs [Nitrostat] 0.4 mg SL Q5M PRN 10/06/22 03/28/24 Fenofibrate [Lofibra] 160 mg PO DAILY 01/25/23 03/28/24 lamoTRIgine [LaMICtal Xr] 250 mg PO DAILY 01/25/23 03/28/24 Pregabalin [Lyrica] 150 mg PO BID 02/05/23 03/28/24 carvediloL [Coreg] 25 mg PO BID 02/05/23 03/28/24 Budesonide/Formoterol Fumarate 2 puff INHALATION RT-BID 07/17/23 03/28/24 [Symbicort 160-4.5 Mcg Inhaler] INSULIN LISPRO (For Pump) [humaLOG 0.01 units SQ-PUMP CONTINUOUS 07/17/23 03/28/24 (For Pump)] HYDROmorphone [Dilaudid] 2 mg PO BID PRN 10/27/23 03/28/24 Atorvastatin [Lipitor] 40 mg PO HS 12/11/23 03/28/24 Magnesium Oxide [Mag-Ox] 400 mg PO BID 03/10/24 03/28/24 hydrALAZINE HCL [Apresoline] 50 mg PO TID 03/10/24 03/28/24 ALPRAZolam [Xanax] 1 mg PO TID PRN 03/28/24 03/28/24 ARIPiprazole [Abilify] 5 mg PO HS 03/28/24 03/28/24 Cinacalcet [Sensipar] 30 mg PO DIRECTED 03/28/24 03/28/24 Sodium Bicarbonate 650 mg PO DAILY 03/28/24 03/28/24 amLODIPine [Norvasc] 10 mg PO DAILY 03/28/24 03/28/24 Allergies Allergy/AdvReac Type Severity Reaction Status Date / Time Fish Containing Products Allergy Anaphylaxis Verified 03/28/24 12:11 Iodinated Contrast Media Allergy Anaphylaxis Verified 03/28/24 12:11 [Iodinated Contrast Media - IV Dye] Sulfa (Sulfonamide Allergy Anaphylaxis Verified 03/28/24 12:11 Antibiotics) sulfamethoxazole Allergy Anaphylaxis Verified 03/28/24 12:11 [From Septra] tree nut [Nut] Allergy Anaphylaxis Verified 03/28/24 12:11 trimethoprim [From Junra] Allergy Anaphylaxis Verified 03/28/24 12:11 Review of Systems ROS Statement: Those systems with pertinent positive or pertinent negative responses have been documented in the HPI. ROS Other: All systems not noted in ROS Statement are negative. 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 HAD [place] 10/27/23 Last Myocardial Infarction Date:: LAST ONE 10/27/23 History of Any Multi-Drug Resistant Organisms: None Reported Past Surgical History: Section, Cholecystectomy, Heart Catheterization With Stent, Hysterectomy, Tubal Ligation, Uterine Ablation Additional Past Surgical History / Comment(s): vein stripping right leg, radio frequency ablation of right back-02/22/2015, four stents on 04/03/16 and one on march 05, ovaries removed, colonscopy- polyp removal Past Anesthesia/Blood Transfusion Reactions: Motion Sickness Additional Past Anesthesia/Blood Transfusion Reaction / Comment(s): mild claustrophobia Date of Last Stent Placement:: 04/03/16 Past Psychological History: Anxiety, Depression Smoking Status: Current every day smoker Past Alcohol Use History: None Reported Past Drug Use History: None Reported - Past Family History Father Family Medical History: Congestive Heart Failure (CHF), Coronary Artery Disease (CAD), Diabetes Mellitus Mother Family Medical History: Cancer, COPD, Hypertension, Respiratory Disorder Additional Family Medical History / Comment(s): emphysema, colon CA General Exam General appearance: alert, in no apparent distress Head exam: Present: atraumatic, normocephalic Eye exam: Present: normal appearance, PERRL ENT exam: Present: normal exam Neck exam: Present: normal inspection Respiratory exam: Present: normal lung sounds bilaterally. Absent: respiratory distress, wheezes Cardiovascular Exam: Present: regular rate, normal rhythm GI/Abdominal exam: Present: soft. Absent: distended, tenderness, guarding Extremities exam: Present: normal inspection, normal capillary refill. Absent: pedal edema Neurological exam: Present: alert, oriented X3 Psychiatric exam: Present: normal affect, normal mood Skin exam: Present: warm, dry, intact Course Vital Signs 05/03/24 21:44 Pulse Rate 77 Respiratory 18 Rate Blood Pressure 173/81 O2 Sat by Pulse 100 Oximetry Medical Decision Making - Medical Decision Making Was pt. sent in by a medical professional or institution (, PA, NIGHTCLUB MANAGER, urgent care, hospital, or skilled nursing...) When possible be specific @ -No Did you speak to anyone other than the patient for history (EMS, parent, family, police, friend...)? What history was obtained from this source @ -[Patient's Did you review nursing and triage notes (agree or disagree)? Why? @ -I reviewed and agree with nursing and triage notes Were old charts reviewed (outside hosp., previous admission, EMS record, old EKG, old radiological studies, urgent care reports/EKG's, skilled nursing records)? Report findings @ -No old charts were reviewed Differential Chest Pain: Stable Angina, Unstable Angina, STEMI, NSTEMI Aortic Dissection, Pneumothorax, Musculoskeletal, Esophageal Spasm GERD, Cholecystitis, Pancreatitis, Zoster, this is not meant to be an all-inclusive list. EKG interpreted by me (3pts min.). @ -Sinus rhythm left anterior fascicular block, right bundle branch block, rate of 78, MT interval 150, QRS duration 169, QTc 477 X-rays interpreted by me (1pt min.). @ -Chest x-ray negative for acute cardiopulmonary findings CT interpreted by me (1pt min.). @ -None done U/S interpreted by me (1pt. min.). @ -None done What testing was considered but not performed or refused? (CT, X-rays, U/S, labs)? Why? @ -None What meds were considered but not given or refused? Why? @ -None Did you discuss the management of the patient with other professionals (professionals i.e. , PA, NIGHTCLUB MANAGER, lab, RT, psych nurse, social service technician, director prospect, teacher, founder and chief technical officer, manager rn case)? Give summary @ -[EMH Was smoking cessation discussed for >3mins.? @ -No Was critical care preformed (if so, how long)? @Yes, 35 minutes Were there social determinants of health that impacted care today? How? (Homelessness, low income, unemployed, alcoholism, drug addiction, transportation, low edu. Level, literacy, decrease access to med. care, fdc, rehab)? @ -No Was there de-escalation of care discussed even if they declined (Discuss DNR or withdrawal of care, Hospice)? DNR status @ -No What co-morbidities impacted this encounter? (DM, HTN, Smoking, COPD, CAD, Cancer, CVA, ARF, Chemo, Hep., AIDS, mental health diagnosis, sleep apnea, morbid obesity)? @Diabetes, CVA, CAD Was patient admitted / discharged? Hospital course, mention meds given and route, prescriptions, significant lab abnormalities, going to OR and other pertinent info. @53-year-old female presenting with central chest pain relieved by nitroglycerin. EKG is sinus rhythm without ST segment elevation, QRS morphology similar to previous EKG. Patient has chronic kidney disease and does have an elevated troponin which has been elevated in the recent past. Given the onset of chest pain with elevated troponin I did initiate heparin awaiting serial cardiac enzymes and cardiology consultation. The patient will be admitted to internal medicine with cardiology on consultation. Undiagnosed new problem with uncertain prognosis? @ -No Drug Therapy requiring intensive monitoring for toxicity (Heparin, Nitro, Insu marcos, Cardizem)? @ -No Were any procedures done? @ -No Diagnosis/symptom? @ -Non-ST segment elevated SC Acute, or Chronic, or Acute on Chronic? @ -Acute Uncomplicated (without systemic symptoms) or Complicated (systemic symptoms)? @ -Default Side effects of treatment? @ -No Exacerbation, Progression, or Severe Exacerbation? @ -No Poses a threat to life or bodily function? How? (Chest pain, USA, SC, pneumonia, PE, COPD, DKA, ARF, appy, cholecystitis, CVA, Diverticulitis, Homicidal, Suicidal, threat to staff... and all critical care pts) @ -[Yes, ACS - Lab Data Result diagrams: 05/03/24 22:00 05/03/24 22:00 Lab Results 05/03/24 05/03/24 05/03/24 Range/Units 22:00 22:00 22:00 WBC 11.4 H (3.8-10.6) k/uL RBC 4.53 (3.80-5.40) m/uL Hgb 13.7 (11.4-16.0) gm/dL Hct 43.1 (34.0-46.0) % MCV 95.1 (80.0-100.0) fL MCH 30.3 (25.0-35.0) pg MCHC 31.8 (31.0-37.0) g/dL RDW 13.9 (11.5-15.5) % Plt Count 267 (150-450) k/uL MPV 10.2 Neutrophils % 64 % Lymphocytes % 29 % Monocytes % 4 % Eosinophils % 2 % Basophils % 1 % Neutrophils # 7.2 (1.3-7.7) k/uL Lymphocytes # 3.3 (1.0-4.8) k/uL Monocytes # 0.4 (0-1.0) k/uL Eosinophils # 0.2 (0-0.7) k/uL Basophils # 0.1 (0-0.2) k/uL PT (10.0-12.5) sec INR (<1.2) APTT (22.0-30.0) sec Sodium 134 L (137-145) mmol/L Potassium 3.8 (3.5-5.1) mmol/L Chloride 105 (98-107) mmol/L Carbon Dioxide 22 (22-30) mmol/L Anion Gap 7 mmol/L BUN 22 H (7-17) mg/dL Creatinine 1.75 H (0.52-1.04) mg/dL Est GFR (CKD-EPI)AfAm 38 (>60 ml/min/1.73 sqM) Est GFR (CKD-EPI)NonAf 33 (>60 ml/min/1.73 sqM) Glucose 290 H (74-99) mg/dL Calcium 9.7 (8.4-10.2) mg/dL Magnesium 1.8 (1.6-2.3) mg/dL Total Bilirubin 0.4 (0.2-1.3) mg/dL AST 19 (14-36) U/L ALT 16 (4-34) U/L Alkaline Phosphatase 152 H (38-126) U/L Troponin I 0.081 H* (0.000-0.034) ng/mL Total Protein 5.3 L (6.3-8.2) g/dL Albumin 3.1 L (3.5-5.0) g/dL 05/03/24 Range/Units 22:02 WBC (3.8-10.6) k/uL RBC (3.80-5.40) m/uL Hgb (11.4-16.0) gm/dL Hct (34.0-46.0) % MCV (80.0-100.0) fL MCH (25.0-35.0) pg MCHC (31.0-37.0) g/dL RDW (11.5-15.5) % Plt Count (150-450) k/uL MPV Neutrophils % % Lymphocytes % % Monocytes % % Eosinophils % % Basophils % % Neutrophils # (1.3-7.7) k/uL Lymphocytes # (1.0-4.8) k/uL Monocytes # (0-1.0) k/uL Eosinophils # (0-0.7) k/uL Basophils # (0-0.2) k/uL PT 10.3 (10.0-12.5) sec INR 0.9 (<1.2) APTT 25.5 (22.0-30.0) sec Sodium (137-145) mmol/L Potassium (3.5-5.1) mmol/L Chloride (98-107) mmol/L Carbon Dioxide (22-30) mmol/L Anion Gap mmol/L BUN (7-17) mg/dL Creatinine (0.52-1.04) mg/dL Est GFR (CKD-EPI)AfAm (>60 ml/min/1.73 sqM) Est GFR (CKD-EPI)NonAf (>60 ml/min/1.73 sqM) Glucose (74-99) mg/dL Calcium (8.4-10.2) mg/dL Magnesium (1.6-2.3) mg/dL Total Bilirubin (0.2-1.3) mg/dL AST (14-36) U/L ALT (4-34) U/L Alkaline Phosphatase (38-126) U/L Troponin I (0.000-0.034) ng/mL Total Protein (6.3-8.2) g/dL Albumin (3.5-5.0) g/dL Critical Care Time Critical Care Time: Yes Total Critical Care Time: 35 Disposition Clinical Impression: Non-STEMI (non-ST elevated myocardial infarction) Disposition: ADMITTED IP TO THIS HOSP Condition: Stable Is patient prescribed a controlled substance at d/c from ED?: No Referrals: Dagmar Hennessy MD [Primary Care Provider] - 1-2 days Time of Disposition: 01:49
[2024-05-03 22:46] LABS: INR 0.9 (<1.2); Partial Thromboplastin Time 25.5 sec (22.0-30.0); Prothrombin Time 10.3 sec (10.0-12.5)
[2024-05-03 22:52] LABS: ALT 16 U/L (4-34); AST 19 U/L (14-36); African American GFR (CKD) 38 (>60 ml/min/1.73 sqM); Albumin 3.1 g/dL (3.5-5.0); Alkaline Phosphatase 152 U/L (38-126); Anion Gap 7 mmol/L; Blood Urea Nitrogen 22 mg/dL (7-17); Calcium 9.7 mg/dL (8.4-10.2); Carbon Dioxide 22 mmol/L (22-30); Chloride 105 mmol/L (98-107); Glucose 290 mg/dL (74-99); Magnesium 1.8 mg/dL (1.6-2.3); Non-African American GFR(CKD) 33 (>60 ml/min/1.73 sqM); Potassium 3.8 mmol/L (3.5-5.1); Sodium 134 mmol/L (137-145); Total Bilirubin 0.4 mg/dL (0.2-1.3); Total Protein 5.3 g/dL (6.3-8.2)
--- NOTE | 2024-05-04 00:36 | XR ---
EXAM: XR Chest, 2 Views CLINICAL HISTORY: ITS.REASON XR Reason: Chest Pain TECHNIQUE: Frontal and lateral views of the chest. COMPARISON: No relevant prior studies available. FINDINGS: Lungs: Unremarkable. No consolidation. Pleural space: Unremarkable. No pneumothorax. Heart: Unremarkable. No cardiomegaly. Mediastinum: Unremarkable. Normal mediastinal contour. Bones/joints: Unremarkable. No acute fracture. IMPRESSION: No consolidation.
[2024-05-04] MEDS: HEPARIN SOD,PORK IN 0.45% NACL 25,000 UNIT in 0.45% NACL 1 250ML.BAG IV SCH (01:10)
[2024-05-04] MEDS: HEPARIN SODIUM 1,000 UN/ML (10ML VL) IV ONE (01:11)
[2024-05-04] MEDS ORDERED: MORPHINE SULFATE 4 MG/ML SYRINGE IV PRN (01:44)
[2024-05-04] MEDS ORDERED: NALOXONE 0.4 MG/ML 1 ML VIAL IV PRN (01:44)
[2024-05-04] MEDS ORDERED: ONDANSETRON 4 MG/2 ML VIAL IVP PRN (01:44)
[2024-05-04] MEDS ORDERED: NITROGLYCERIN SL TABS 0.4 MG TAB SUBLINGUAL PRN ×2 (01:44→10:05)
[2024-05-04] MEDS ORDERED: ACETAMINOPHEN TAB 325 MG TAB PO PRN (01:44)
[2024-05-04] MEDS: carvediloL 12.5 MG TAB PO SCH ×2 (08:57→16:54)
[2024-05-04] MEDS: amLODIPine 10 MG TAB PO SCH ×2 (08:57→12:21)
[2024-05-04] MEDS: NITROGLYCERIN OINT 1 INCH/GM PACKET TOPICAL SCH (08:57)
[2024-05-04] MEDS: ASPIRIN 81 MG PO SCH ×2 (08:57→20:02)
--- NOTE | 2024-05-04 09:46 | P.CRDCN ---
History of Present Illness History of present illness: HISTORY OF PRESENT ILLNESS: This is a 53-year-old female with a past medical history significant for coronary artery disease with previous stenting, LVH, hypertension, hyperlipidemia, diabetes, anxiety, depression, and nicotine dependence. Patient follows in the office with Dr. Jasso. We have been asked to see the patient in consultation for chest pain. Patient examined at the bedside in the emergency room. Patient states yesterday she began having some pain in the middle of her chest and also on the left side of her chest. She states that it felt like a pinching type sensation. Patient does state that she recently had her Abilify increased and she thinks some of her symptoms started since her medication was changed. She also reports she has not been eating much at home for the past week so she has not been taking some of her medications due to nausea and episodes of vomiting when eating. DIAGNOSTICS: - EKG reveals sinus mechanism with right bundle branch block. LVH.. - Chest xray negative for acute process. - Laboratory data: WBC 11.4. Hemoglobin 13.7. Platelet count 267. Sodium 134. Potassium 3.8. BUN 22. Creatinine 1.75. Magnesium 1.8. Troponin 0.081. 0.090. 0.079. - Current home cardiac medications include Jardiance 10 mg daily, carvedilol 25 mg twice a day, amlodipine 10 mg daily, fenofibrate 160 mg daily, Imdur 60 mg daily, aspirin 81 mg at night, and Lipitor 40 mg at night. - Most recent echocardiogram obtained in October 2023 revealed ejection fraction 50 to 55% with severe concentric LVH - Cardiac catheterization history: November 2023 revealing 60% mid RCA stenosis involving the previously stented segment. Patent stents within the RCA LAD and diagonal with moderate nonobstructive disease involving the LAD and the ostial portion of the diagonal branch. Patient underwent IFR of the proximal to mid RCA which was abnormal at 0.84. Given long area with prior stents with increased long-term risk of restenosis, medical management was recommended. REVIEW OF SYSTEMS: At the time of my exam: CONSTITUTIONAL: Denies fever or chills. HEENT: Denies blurred vision, vision changes, or eye pain. Denies hemoptysis CARDIOVASCULAR: Denies chest pain. Denies orthopnea. Denies PND. Denies palpitations RESPIRATORY: Denies shortness of breath. GASTROINTESTINAL: Denies abdominal pain. Denies nausea or vomiting. HEMATOLOGIC: Denies bleeding disorders. GENITOURINARY: Denies any blood in urine. SKIN: Denies pruitis. Denies rash. PHYSICAL EXAM: VITAL SIGNS: Reviewed. GENERAL: Well-developed in no acute distress. HEENT: Head is normocephalic. Pupils are equal, round. Sclerae anicteric. Mucous membranes of the mouth are moist. Neck supple. No JVD or thyromegaly LUNGS: Respirations even and unlabored. Lungs essentially clear to auscultation bilaterally. HEART: Regular rate and rhythm. S1 and S2 heard. ABDOMEN: Soft. Nondistended. Nontender. EXTREMITIES: Normal range of motion. No clubbing or cyanosis. Peripheral pulses intact. No lower extremity edema NEUROLOGIC: Awake and alert. Oriented x 3. ASSESSMENT: Chest pain with minimally elevated troponins Nausea and vomiting with decreased oral intake at home Chronic kidney disease Abnormal troponins, flat, chronically elevated from CKD, less likely Type I [place] Coronary artery disease with previous stenting Hypertension Hyperlipidemia Diabetes Severe concentric LVH Anxiety Depression Nicotine dependence Obesity: BMI 30.7 PLAN: We will continue IV heparin for an additional 24 hours Obtain 2D echo to assess cardiac structure and function Resume home cardiac medications No plans for cardiac catheterization at this time Abstinence from smoking recommended. Patient to be referred to [place] quit line upon discharge Further recommendations pending patient course Nurse practitioner note has been reviewed by physician. Signing provider agrees with the documented findings, assessment, and plan of care documented by OCEANOLOGY TEACHER as a scribe. 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 HAD [place] 10/27/23 Last Myocardial Infarction Date:: LAST ONE 10/27/23 History of Any Multi-Drug Resistant Organisms: None Reported Past Surgical History: Section, Cholecystectomy, Heart Catheterization With Stent, Hysterectomy, Tubal Ligation, Uterine Ablation Additional Past Surgical History / Comment(s): vein stripping right leg, radio frequency ablation of right back-02/22/2015, four stents on 04/03/16 and one on march 05, ovaries removed, colonscopy- polyp removal Past Anesthesia/Blood Transfusion Reactions: Motion Sickness Additional Past Anesthesia/Blood Transfusion Reaction / Comment(s): mild claustrophobia Date of Last Stent Placement:: 04/03/16 Past Psychological History: Anxiety, Depression Smoking Status: Current every day smoker Past Alcohol Use History: None Reported Past Drug Use History: None Reported - Past Family History Father Family Medical History: Congestive Heart Failure (CHF), Coronary Artery Disease (CAD), Diabetes Mellitus Mother Family Medical History: Cancer, COPD, Hypertension, Respiratory Disorder Additional Family Medical History / Comment(s): emphysema, colon CA Medications and Allergies Home Medications Medication Instructions Recorded Confirmed Type Aspirin [Adult Low Dose Aspirin EC] 81 mg PO HS 11/26/17 05/04/24 History DULoxetine HCL [Cymbalta] 60 mg PO DAILY 08/25/18 05/04/24 History Isosorbide Mononitrate ER [Imdur] 60 mg PO DAILY 09/08/18 05/04/24 History Empagliflozin [Jardiance] 10 mg PO DAILY 10/06/22 05/04/24 History Famotidine 20 mg PO BID PRN 10/06/22 05/04/24 History Nitroglycerin Sl Tabs [Nitrostat] 0.4 mg SL Q5M PRN 10/06/22 05/04/24 History Fenofibrate [Lofibra] 160 mg PO DAILY 01/25/23 05/04/24 History Pregabalin [Lyrica] 150 mg PO BID 02/05/23 05/04/24 History carvediloL [Coreg] 25 mg PO BID 02/05/23 05/04/24 History Budesonide/Formoterol Fumarate 2 puff INHALATION RT-BID PRN 07/17/23 05/04/24 History [Symbicort 160-4.5 Mcg Inhaler] INSULIN LISPRO (For Pump) [humaLOG 0.01 units SQ-PUMP CONTINUOUS 07/17/23 05/04/24 History (For Pump)] Atorvastatin [Lipitor] 40 mg PO HS 12/11/23 05/04/24 History Magnesium Oxide [Mag-Ox] 400 mg PO BID 03/10/24 05/04/24 History ALPRAZolam [Xanax] 1 mg PO DAILY 03/28/24 05/04/24 History Cinacalcet [Sensipar] 30 mg PO MOTH 03/28/24 05/04/24 History Sodium Bicarbonate 325 mg PO BID 03/28/24 05/04/24 History amLODIPine [Norvasc] 10 mg PO DAILY 03/28/24 05/04/24 History ALPRAZolam [Xanax] 2 mg PO HS 05/04/24 05/04/24 History ARIPiprazole [Abilify] 10 mg PO HS 05/04/24 05/04/24 History Ondansetron Odt [Zofran Odt] 8 mg PO Q12HR 05/04/24 05/04/24 History Allergies Allergy/AdvReac Type Severity Reaction Status Date / Time Fish Containing Products Allergy Anaphylaxis Verified 05/04/24 09:17 Iodinated Contrast Media Allergy Anaphylaxis Verified 05/04/24 09:17 [Iodinated Contrast Media - IV Dye] Sulfa (Sulfonamide Allergy Anaphylaxis Verified 05/04/24 09:17 Antibiotics) sulfamethoxazole Allergy Anaphylaxis Verified 05/04/24 09:17 [From Septra] tree nut [Nut] Allergy Anaphylaxis Verified 05/04/24 09:17 trimethoprim [From Junra] Allergy Anaphylaxis Verified 05/04/24 09:17 Physical Exam Vitals: Vital Signs Pulse Resp BP Pulse Ox 05/04/24 06:00 62 16 148/65 93 L 05/04/24 04:00 67 19 154/78 96 05/04/24 02:00 62 16 175/84 98 05/04/24 01:10 67 15 180/90 99 05/03/24 21:44 77 18 173/81 100 Intake and Output 05/03/24 05/04/24 05/04/24 22:59 06:59 14:59 Intake Total 65.98 Balance 65.98 Intake: Intake, IV Titration 65.98 Amount Heparin Sod,Pork in 0.45% 65.98 NaCl 25,000 unit In 0.45 % NaCl 1 250ml.bag @ 11.6 UNITS/KG/HR 9.997 mls/hr IV .Q24H [facility] Rx#: [id number] Other: Weight 86.183 kg Results 05/03/24 22:00 05/03/24 22:00 Cardiac Enzymes 05/03/24 05/03/24 05/04/24 Range/Units 22:00 22:00 02:59 AST 19 (14-36) U/L Troponin I 0.081 H* 0.090 H* (0.000-0.034) ng/mL 05/04/24 Range/Units 06:13 AST (14-36) U/L Troponin I 0.079 H* (0.000-0.034) ng/mL Coagulation 05/03/24 05/04/24 Range/Units 22:02 06:13 PT 10.3 (10.0-12.5) sec APTT 25.5 30.7 H (22.0-30.0) sec CBC 05/03/24 Range/Units 22:00 WBC 11.4 H (3.8-10.6) k/uL RBC 4.53 (3.80-5.40) m/uL Hgb 13.7 (11.4-16.0) gm/dL Hct 43.1 (34.0-46.0) % Plt Count 267 (150-450) k/uL Comprehensive Metabolic Panel 05/03/24 Range/Units 22:00 Sodium 134 L (137-145) mmol/L Potassium 3.8 (3.5-5.1) mmol/L Chloride 105 (98-107) mmol/L Carbon Dioxide 22 (22-30) mmol/L BUN 22 H (7-17) mg/dL Creatinine 1.75 H (0.52-1.04) mg/dL Glucose 290 H (74-99) mg/dL Calcium 9.7 (8.4-10.2) mg/dL AST 19 (14-36) U/L ALT 16 (4-34) U/L Alkaline Phosphatase 152 H (38-126) U/L Total Protein 5.3 L (6.3-8.2) g/dL Albumin 3.1 L (3.5-5.0) g/dL Current Medications Generic Name Dose Route Start Last Admin Trade Name Freq PRN Reason Stop Dose Admin Acetaminophen 650 mg 05/04/24 01:44 Acetaminophen Tab 325 Mg Tab PO Q6HR PRN Mild Pain or Fever > 100.5 Amlodipine Besylate 10 mg 05/04/24 09:00 05/04/24 08:57 Amlodipine 10 Mg Tab PO 10 mg DAILY [facility] Administration Aspirin 81 mg 05/04/24 09:00 05/04/24 08:57 Aspirin 81 Mg PO 81 mg DAILY [facility] Administration Atorvastatin Calcium 80 mg 05/04/24 21:00 Atorvastatin 80 Mg Tab PO HS [facility] Carvedilol 12.5 mg 05/04/24 08:30 05/04/24 08:57 Carvedilol 12.5 Mg Tab PO 12.5 mg BID-W/MEALS [facility] Administration Heparin Sodium (Porcine) 0 unit 05/04/24 00:03 Heparin Sodium 1,000 Un/Ml (10ml Vl) IV PER PROTOCOL PRN Low PTT Protocol Heparin Sodium/Sodium Chloride 250 mls @ 9.997 mls/hr 05/04/24 00:15 05/04/24 07:46 25,000 unit/ Sodium Chloride IV 14.6 units/kg/hr .Q24H [facility] 12.583 mls/hr Titration Protocol 11.6 UNITS/KG/HR Morphine Sulfate 4 mg 05/04/24 01:44 Morphine Sulfate 4 Mg/Ml Syringe IV Q4HR PRN Severe Pain (Scale 7 to 10) Naloxone HCl 0.2 mg 05/04/24 01:44 Naloxone 0.4 Mg/Ml 1 Ml Vial IV Q2M PRN Opioid Reversal Nitroglycerin 0.4 mg 05/04/24 01:44 Nitroglycerin Sl Tabs 0.4 Mg Tab SUBLINGUAL Q5M PRN Chest Pain Nitroglycerin 1 inch 05/04/24 08:30 05/04/24 08:57 Nitroglycerin Oint 1 Inch/Gm Packet TOPICAL 1 inch Q8HR [facility] Administration Ondansetron HCl 4 mg 05/04/24 01:44 Ondansetron 4 Mg/2 Ml Vial IVP Q8HR PRN Nausea And Vomiting Intake and Output 05/03/24 05/04/24 05/04/24 22:59 06:59 14:59 Intake Total 65.98 Balance 65.98 Intake: Intake, IV Titration 65.98 Amount Heparin Sod,Pork in 0.45% 65.98 NaCl 25,000 unit In 0.45 % NaCl 1 250ml.bag @ 11.6 UNITS/KG/HR 9.997 mls/hr IV .Q24H [facility] Rx#: [id number] Other: Weight 86.183 kg 05/03/24 22:00 05/03/24 22:00
[2024-05-04] MEDS ORDERED: SYMBICORT 160-4.5 MCG INHALER INHALATION PRN (10:05)
[2024-05-04] MEDS ORDERED: FAMOTIDINE 20 MG TAB PO PRN (10:05)
[2024-05-04] MEDS: INSULIN LISPRO (For Pump) 100 UNIT/ML VIAL SQ-PUMP SCH (11:02)
[2024-05-04] MEDS: ISOSORBIDE MONONITRATE ER 60 MG TAB.ER.24H PO SCH (11:03)
[2024-05-04] MEDS: DULoxetine HCL 60 MG CAPSULE.DR PO SCH (11:14)
[2024-05-04] MEDS: ALPRAZolam 1 MG TAB PO SCH ×2 (11:14→23:36)
[2024-05-04] MEDS: MAGNESIUM OXIDE 400 MG TAB PO SCH (11:14)
[2024-05-04] MEDS: CINACALCET 30 MG TAB PO SCH (11:14)
[2024-05-04] MEDS: DAPAGLIFLOZIN PROPANEDIOL 5 MG TABLET PO SCH (11:14)
[2024-05-04] MEDS: FENOFIBRATE 160 MG TAB PO SCH (11:14)
[2024-05-04] MEDS: NON FORMULARY DRUG (Carvedilol [Coreg] 25 MG Tablet) PO SCH (12:21)
[2024-05-04 16:02] LABS: Glucose,Whole Blood 271 mg/dL (70-110)
[2024-05-04] MEDS: ONDANSETRON ODT 8 MG TAB.RAPDIS PO SCH (19:59)
[2024-05-04] MEDS: ARIPiprazole 10 MG TAB PO SCH (20:01)
[2024-05-04] MEDS: ATORVASTATIN 40 MG TAB PO SCH (20:02)
[2024-05-04] MEDS: PREGABALIN 75 MG CAP PO SCH (20:04)
[2024-05-04] MEDS: SODIUM BICARBONATE TAB 650 MG TAB PO SCH (20:04)
[2024-05-04] MEDS: HEPARIN SODIUM 1,000 UN/ML (10ML VL) IV PRN (20:30)
[2024-05-04] MEDS ORDERED: ATORVASTATIN 80 MG TAB PO SCH (21:00)
[2024-05-04] MEDS: hydrALAZINE HCL 20 MG/ML 1 ML VIAL IVP PRN (23:55)
[2024-05-05 01:38] LABS: Basophils # (A) 0.1 k/uL (0-0.2); Basophils % (A) 1 %; Eosinophils # (A) 0.2 k/uL (0-0.7); Eosinophils % (A) 1 %; HGB 13.4 gm/dL (11.4-16.0); Lymphocytes # (A) 3.3 k/uL (1.0-4.8); Lymphocytes % (A) 30 %; MCH 31.2 pg (25.0-35.0); MCHC 32.8 g/dL (31.0-37.0); MCV 95.1 fL (80.0-100.0); Mean Platelet Volume 9.8; Monocytes # (A) 0.5 k/uL (0-1.0); Monocytes % (A) 4 %; Neutrophils % (A) 63 %; Platelet Count 239 k/uL (150-450); RBC 4.31 m/uL (3.80-5.40); RDW 13.7 % (11.5-15.5)
[2024-05-05 02:11] LABS: Prothrombin Time 10.5 sec (10.0-12.5)
[2024-05-05] MEDS: HEPARIN SODIUM,PORCINE 5,000 UNIT/ML 1 ML VIAL SQ SCH (08:40)
[2024-05-05] MEDS: hydrALAZINE HCL 50 MG TAB PO SCH (08:41)
--- NOTE | 2024-05-05 08:42 | PN ---
PROGRESS NOTE SUBJECTIVE: Leticia is a 53-year-old lady, who is admitted to hospital with chest discomfort that seemed more related to her underlying anxiety. This morning, she is free of chest pain, stable hemodynamically. Her troponins were flat at 0.08, 0.09, and 0.07 and is probably related to underlying renal failure. EKG showed sinus rhythm with right bundle branch block, left anterior fascicular block, and changes of left ventricular hypertrophy. OBJECTIVE: VITAL SIGNS: Heart rate is 67 beats per minute, blood pressure is 146/72, respiratory rate is 14, O2 saturation is 95% on room air. NECK: There is no jugular venous distention. Carotid upstroke is normal. There is no bruit. CHEST: Reveals good air entry bilaterally. HEART: Reveals first and second heart sounds. An S4 is heard. ABDOMEN: Soft. EXTREMITIES: Did not reveal any edema. Peripheral pulses are felt. ASSESSMENT: 1. Elevated troponin, not consistent with acute myocardial ischemia and is probably related to chronic renal failure. 2. Coronary artery disease, status post prior stenting. 3. Severe uncontrolled hypertension. PLAN: I am going to stop the IV heparin this morning. Start her on subcu heparin. Add hydralazine for blood pressure control. MMODL / IJN: [id number] /
--- NOTE | 2024-05-05 08:58 | P.HPIM ---
History of Present Illness H&P Date: 05/04/24 Leticia Langley, is a 53-year-old female who presented to [facility] emergency room with a chief complaint of chest pain, patient states that she started having episodes of chest pain on and off 4 days prior to admission, she stated that she thought it was related to acid reflux, and recent increase in her psychiatric medications, however she continued to have episodes of chest pain and decided to come to emergency room. She was evaluated in the emergency room vital examination on presentation revealed pulse 77 respiration 18 blood pressure 173/81 pulse ox 100% on room air Laboratory data revealed a white blood count of 11.4 hemoglobin 13.7 platelet count 267 BUN 22 creatinine 1.75 troponin level 0.081 Testing in the emergency room revealed EKG done in the emergency room revealed sinus rhythm with possible left atrial enlargement, right bundle branch block, left anterior fascicular block, and left ventricular hypertrophy. Chest x-ray done in the emergency room revealed no acute consolidation. Patient was admitted to medical floor for further evaluation and treatment Past medical history is significant for history of hypertension, history of hyperlipidemia, history of insulin-dependent diabetes mellitus maintained on insulin pump, history of coronary artery disease with previous history of myocardial infarction, history of chronic kidney disease, history of factor V Leiden disorder with prior history of DVT, history of CVA with right-sided weakness, history of peripheral neuropathy, history of obstructive sleep apnea, history of peripheral arterial disease, history of continued tobacco use, history of gastroesophageal reflux disease, patient underwent EGD in October 2023 which revealed mild antral gastritis. History of bipolar disorder. And history of ovarian cancer. On review of systems patient is alert and oriented, she is complaining of episo ronaldo of chest pain, otherwise she denies any complaints at this time, there is no fever or chills no headache or dizziness, no shortness of breath no cough no nausea or vomiting no abdominal pain no diarrhea and no urinary symptoms. Past Medical History Past Medical History: Blood Disorder, Coronary Artery Disease (CAD), Cancer, Chest Pain / Angina, CVA/TIA, Diabetes Mellitus, Deep Vein Thrombosis (DVT), Fibromyalgia, GERD/Reflux, Hyperlipidemia, Hypertension, Myocardial Infarction (MO), Musculoskeletal Disorder, Neurologic Disorder, Renal Disease, Sleep Apnea/CPAP/BIPAP, Vascular Disorder Additional Past Medical History / Comment(s): IDDM type II, uterine/cervical and ovarian cancer, restless leg, Factor V blood disorder, DVT R leg, 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 - slight foot drag when tired/neuropathies, M S, MO X 5, ABIGAIL with Cpap use, PAD/legs, R leg edema, past pancreatitis. HAD MO 10/27/23 Last Myocardial Infarction Date:: LAST ONE 10/27/23 History of Any Multi-Drug Resistant Organisms: None Reported Past Surgical History: Section, Cholecystectomy, Heart Catheterization With Stent, Hysterectomy, Tubal Ligation, Uterine Ablation Additional Past Surgical History / Comment(s): vein stripping right leg, radio frequency ablation of right back-02/22/2015, four stents on 04/03/16 and one on , ovaries removed, colonscopy- polyp removal Past Anesthesia/Blood Transfusion Reactions: Motion Sickness Additional Past Anesthesia/Blood Transfusion Reaction / Comment(s): mild claustrophobia Date of Last Stent Placement:: 04/03/16 Past Psychological History: Anxiety, Depression Smoking Status: Current every day smoker Past Alcohol Use History: None Reported Past Drug Use History: None Reported - Past Family History Father Family Medical History: Congestive Heart Failure (CHF), Coronary Artery Disease (CAD), Diabetes Mellitus Mother Family Medical History: Cancer, COPD, Hypertension, Respiratory Disorder Additional Family Medical History / Comment(s): emphysema, colon CA Medications and Allergies Home Medications Medication Instructions Recorded Confirmed Type Aspirin [Adult Low Dose Aspirin EC] 81 mg PO HS 11/26/17 05/04/24 History DULoxetine HCL [Cymbalta] 60 mg PO DAILY 08/25/18 05/04/24 History Isosorbide Mononitrate ER [Imdur] 60 mg PO DAILY 09/08/18 05/04/24 History Empagliflozin [Jardiance] 10 mg PO DAILY 10/06/22 05/04/24 History Famotidine 20 mg PO BID PRN 10/06/22 05/04/24 History Nitroglycerin Sl Tabs [Nitrostat] 0.4 mg SL Q5M PRN 10/06/22 05/04/24 History Fenofibrate [Lofibra] 160 mg PO DAILY 01/25/23 05/04/24 History Pregabalin [Lyrica] 150 mg PO BID 02/05/23 05/04/24 History carvediloL [Coreg] 25 mg PO BID 02/05/23 05/04/24 History Budesonide/Formoterol Fumarate 2 puff INHALATION RT-BID PRN 07/17/23 05/04/24 History [Symbicort 160-4.5 Mcg Inhaler] INSULIN LISPRO (For Pump) [humaLOG 0.01 units SQ-PUMP CONTINUOUS 07/17/23 05/04/24 History (For Pump)] Atorvastatin [Lipitor] 40 mg PO HS 12/11/23 05/04/24 History Magnesium Oxide [Mag-Ox] 400 mg PO BID 03/10/24 05/04/24 History ALPRAZolam [Xanax] 1 mg PO DAILY 03/28/24 05/04/24 History Cinacalcet [Sensipar] 30 mg PO MOTH 03/28/24 05/04/24 History Sodium Bicarbonate 325 mg PO BID 03/28/24 05/04/24 History amLODIPine [Norvasc] 10 mg PO DAILY 03/28/24 05/04/24 History ALPRAZolam [Xanax] 2 mg PO HS 05/04/24 05/04/24 History ARIPiprazole [Abilify] 10 mg PO HS 05/04/24 05/04/24 History Ondansetron Odt [Zofran Odt] 8 mg PO Q12HR 05/04/24 05/04/24 History Allergies Allergy/AdvReac Type Severity Reaction Status Date / Time Fish Containing Products Allergy Anaphylaxis Verified 05/04/24 09:17 Iodinated Contrast Media Allergy Anaphylaxis Verified 05/04/24 09:17 [Iodinated Contrast Media - IV Dye] Sulfa (Sulfonamide Allergy Anaphylaxis Verified 05/04/24 09:17 Antibiotics) sulfamethoxazole Allergy Anaphylaxis Verified 05/04/24 09:17 [From Septra] tree nut [Nut] Allergy Anaphylaxis Verified 05/04/24 09:17 trimethoprim [From Junra] Allergy Anaphylaxis Verified 05/04/24 09:17 Physical Exam Vitals: Vital Signs Pulse Resp BP Pulse Ox 05/04/24 06:00 62 16 148/65 93 L 05/04/24 04:00 67 19 154/78 96 05/04/24 02:00 62 16 175/84 98 05/04/24 01:10 67 15 180/90 99 05/03/24 21:44 77 18 173/81 100 Intake and Output 05/03/24 05/04/24 05/04/24 22:59 06:59 14:59 Intake Total 65.98 Balance 65.98 Intake: Intake, IV Titration 65.98 Amount Heparin Sod,Pork in 0.45% 65.98 NaCl 25,000 unit In 0.45 % NaCl 1 250ml.bag @ 11.6 UNITS/KG/HR 9.997 mls/hr IV .Q24H [facility] Rx#: [id number] Other: Weight 86.183 kg In general patient is alert and oriented x 3 in no distress HEENT head normocephalic and atraumatic Neck is supple no JVD no goiter no lymphadenopathy no carotid bruit Chest examination is clear to auscultation no crackles no wheezing Cardiac exam reveals regular heart sounds S1 and S2 no gallops no murmurs Abdomen is soft nontender no organomegaly with normal bowel sounds Extremity exam reveals no edema no cyanosis or clubbing Neurological examination reveals no gross focal deficits Results CBC & Chem 7: 05/03/24 22:00 05/03/24 22:00 Labs: Abnormal Lab Results - Last 24 Hours (Table) 05/03/24 05/03/24 05/03/24 Range/Units 22:00 22:00 22:00 WBC 11.4 H (3.8-10.6) k/uL APTT (22.0-30.0) sec Sodium 134 L (137-145) mmol/L BUN 22 H (7-17) mg/dL Creatinine 1.75 H (0.52-1.04) mg/dL Glucose 290 H (74-99) mg/dL Alkaline Phosphatase 152 H (38-126) U/L Troponin I 0.081 H* (0.000-0.034) ng/mL Total Protein 5.3 L (6.3-8.2) g/dL Albumin 3.1 L (3.5-5.0) g/dL 05/04/24 05/04/24 05/04/24 Range/Units 02:59 06:13 06:13 WBC (3.8-10.6) k/uL APTT 30.7 H (22.0-30.0) sec Sodium (137-145) mmol/L BUN (7-17) mg/dL Creatinine (0.52-1.04) mg/dL Glucose (74-99) mg/dL Alkaline Phosphatase (38-126) U/L Troponin I 0.090 H* 0.079 H* (0.000-0.034) ng/mL Total Protein (6.3-8.2) g/dL Albumin (3.5-5.0) g/dL Assessment and Plan Plan: Episode of chest pain, with mild elevation in troponin level Underlying history of coronary artery disease Previous history of stroke Underlying history of chronic kidney disease Underlying history of diabetes mellitus on insulin pump Underlying history of hypertension Underlying history of hyperlipidemia Underlying history of peripheral neuropathy Underlying history of peripheral arterial disease Previous history of ovarian cancer Ongoing tobacco abuse History of bipolar disorder followed by psychiatry At this time patient was seen and examined in emergency room Home medications reviewed and reordered Patient was started on IV heparin in the emergency room Cardiology consultation was requested Patient was counseled regarding tobacco cessation
--- NOTE | 2024-05-05 10:07 | P.PN ---
Subjective Progress Note Date: 05/05/24 Leticia Langley, is a 53-year-old female who presented to [facility] emergency room with a chief complaint of chest pain, patient states that she started having episodes of chest pain on and off 4 days prior to admission, she stated that she thought it was related to acid reflux, and recent increase in her psychiatric medications, however she continued to have episodes of chest pain and decided to come to emergency room. She was evaluated in the emergency room vital examination on presentation revealed pulse 77 respiration 18 blood pressure 173/81 pulse ox 100% on room air Laboratory data revealed a white blood count of 11.4 hemoglobin 13.7 platelet count 267 BUN 22 creatinine 1.75 troponin level 0.081 Testing in the emergency room revealed EKG done in the emergency room revealed sinus rhythm with possible left atrial enlargement, right bundle branch block, left anterior fascicular block, and left ventricular hypertrophy. Chest x-ray done in the emergency room revealed no acute consolidation. Patient was admitted to medical floor for further evaluation and treatment Past medical history is significant for history of hypertension, history of hyperlipidemia, history of insulin-dependent diabetes mellitus maintained on insulin pump, history of coronary artery disease with previous history of myocardial infarction, history of chronic kidney disease, history of factor V Leiden disorder with prior history of DVT, history of CVA with right-sided weakness, history of peripheral neuropathy, history of obstructive sleep apnea, history of peripheral arterial disease, history of continued tobacco use, history of gastroesophageal reflux disease, patient underwent EGD in October 2023 which revealed mild antral gastritis. History of bipolar disorder. And history of ovarian cancer. On review of systems patient is alert and oriented, she is complaining of episodes of chest pain, otherwise she denies any complaints at this time, there is no fever or chills no headache or dizziness, no shortness of breath no cough no nausea or vomiting no abdominal pain no diarrhea and no urinary symptoms. On 05/05/2024 for patient's alert and oriented 3. Patient remains as overflow patient in the intensive care unit.Heparin drip has been DC'd per cardiology. Current vital signs temp 98.2, heart rate 66, respiratory rate 18, blood pressure 133/68 with pulse ox of 94% on room air. Patient denies any chest pain. Patient denies nausea vomiting or diarrhea. Patient denies any urinary burning or frequency Objective - Vital Signs Vital signs: Vital Signs Temp 98.2 F 05/05/24 03:48 Pulse 67 05/05/24 03:48 Resp 14 05/05/24 03:48 BP 146/72 05/05/24 06:48 Pulse Ox 95 05/05/24 03:48 FiO2 Intake & Output 05/04/24 05/05/24 05/05/24 18:59 06:59 18:59 Intake Total 128.056 116.288 Output Total 300 800 Balance -171.944 -683.712 Weight 86.183 kg 101.3 kg Intake: Intake, IV Titration 128.056 116.288 Amount Heparin Sod,Pork in 0.45% 128.056 116.288 NaCl 25,000 unit In 0.45 % NaCl 1 250ml.bag @ 11.6 UNITS/KG/HR 9.997 mls/hr IV .Q24H [facility] Rx#: [id number] Output: Urine 300 800 Other: Voiding Method Bedpan Bedside Commode # Voids 1 - Exam In general patient is alert and oriented x 3 in no distress HEENT head normocephalic and atraumatic Neck is supple no JVD no goiter no lymphadenopathy no carotid bruit Chest examination is clear to auscultation no crackles no wheezing Cardiac exam reveals regular heart sounds S1 and S2 no gallops no murmurs Abdomen is soft nontender no organomegaly with normal bowel sounds Extremity exam reveals no edema no cyanosis or clubbing Neurological examination reveals no gross focal deficits - Labs CBC & Chem 7: 05/05/24 01:15 05/03/24 22:00 Labs: Abnormal Lab Results - Last 24 Hours (Table) 05/04/24 05/04/24 05/04/24 Range/Units 12:08 16:01 18:43 WBC (3.8-10.6) k/uL APTT 32.5 H 35.8 H (22.0-30.0) sec POC Glucose (mg/dL) 271 H (70-110) mg/dL 05/05/24 05/05/24 05/05/24 Range/Units 01:15 01:15 05:55 WBC 11.0 H (3.8-10.6) k/uL APTT 45.7 H 42.1 H (22.0-30.0) sec POC Glucose (mg/dL) (70-110) mg/dL Assessment and Plan Plan: Episode of chest pain, with mild elevation in troponin level Underlying history of coronary artery disease Previous history of stroke Underlying history of chronic kidney disease Underlying history of diabetes mellitus on insulin pump Underlying history of hypertension Underlying history of hyperlipidemia Underlying history of peripheral neuropathy Underlying history of peripheral arterial disease Previous history of ovarian cancer Ongoing tobacco abuse History of bipolar disorder followed by psychiatry At this time patient was seen and examined in emergency room Home medications reviewed and reordered Patient was started on IV heparin in the emergency room Cardiology consultation was requested Patient was counseled regarding tobacco cessation
--- NOTE | 2024-05-05 11:46 | CA ---
Transthoracic Echo Report Name: Leticia Langley Age: 53 Gender: F : 1970 Exam Date: 05/04/2024 17:25 Exam Location: [place] [facility] Ht (in): 66 Wt (lb): 190 Ordering Physician: Perla Farr Attending/Referring Phys: [id number], Yordan [employer] Reema Crow RDCS Procedure CPT: Indications: LV function, CP Cardiac Hx: Technical Quality: Good Contrast 1: Total Dose (mL): Contrast 2: Total Dose (mL): MEASUREMENTS (Male / Female) Normal Values 2D ECHO LV Diastolic Diameter PLAX 4.9 cm 4.2 - 5.9 / 3.9 - 5.3 cm LV Systolic Diameter PLAX 3.9 cm IVS Diastolic Thickness 1.9 cm 0.6 - 1.0 / 0.6 - 0.9 cm LVPW Diastolic Thickness 1.8 cm 0.6 - 1.0 / 0.6 - 0.9 cm LV Relative Wall Thickness 0.7 RV Internal Dim ED PLAX 3.5 cm LA Systolic Diameter LX 3.5 cm 3.0 - 4.0 / 2.7 - 3.8 cm LV Diastolic Volume MOD 4C 149.2 cm??? LV Systolic Volume MOD 4C 84.8 cm??? LV Ejection Fraction MOD 4C 43.2 % LV Cardiac Index MOD 4C 2127.6 cm???/min???m??? LV Diastolic Length 4C 8.5 cm LV Systolic Length 4C 7.3 cm LV Diastolic Volume MOD 2C 200.9 cm??? LV Systolic Volume MOD 2C 118.7 cm??? LV Ejection Fraction MOD 2C 40.9 % LV Cardiac Index MOD 2C 2712.7 cm???/min???m??? LV Diastolic Length 2C 9.5 cm LV Systolic Length 2C 8.4 cm LA Volume 68.6 cm??? 18 - 58 / 22 - 52 cm??? LA Volume Index 33.8 cm???/m??? 16 - 28 cm???/m??? M-MODE Aortic Root Diameter MM 3.8 cm AV Cusp Separation MM 2.8 cm DOPPLER AV Peak Velocity 143.1 cm/s AV Peak Gradient 8.2 mmHg MV Area PHT 2.2 cm??? Mitral E Point Velocity 68.6 cm/s Mitral A Point Velocity 105.2 cm/s Mitral E to A Ratio 0.7 MV Deceleration Time 340.0 ms FINDINGS Left Ventricle Left ventricular ejection fraction is estimated at 40-45 %. Left ventricular cavity size normal. Severely increased septal wall thickness. Severely increased posterior wall thickness. No obvious regional wall motion abnormalities. Right Ventricle Mild right ventricular dilatation. Unable to estimate the right ventricular systolic pressure. Right Atrium Normal right atrial size. No right atrial thrombus or mass seen. Left Atrium Mildly increased left atrial volume. Mildly increased left atrial area. Mitral Valve Mitral valve thickened. Trace mitral regurgitation. No evidence for mitral valve prolapse. No mitral stenosis. Aortic Valve Trileaflet aortic valve. No aortic valve stenosis or regurgitation. Tricuspid Valve Structurally normal tricuspid valve. No tricuspid stenosis, regurgitation or prolapse. Pulmonic Valve Structurally normal pulmonic valve. No pulmonic regurgitation. Pericardium No pericardial effusion. Aorta Mild aortic dilatation at the level of the sinuses of valsalva 38 mm CONCLUSIONS Left ventricular ejection fraction 40-45% Severely increased left ventricular wall thickness measuring 1.9 cm. Consider infiltrative workup Mildly dilated left atrium Trace mitral regurgitation No pericardial Previewed by: Dr. Eligio Mckeon DO (Electronically Signed) Final Date: 05 May 2024 11:45
[2024-05-06 04:59] VITALS: PULSE 71
[2024-05-06 06:42] LABS: Basophils # (A) 0.1 k/uL (0-0.2); Basophils % (A) 1 %; Eosinophils # (A) 0.1 k/uL (0-0.7); Eosinophils % (A) 1 %; HCT 43.4 % (34.0-46.0); HGB 13.8 gm/dL (11.4-16.0); Lymphocytes # (A) 2.3 k/uL (1.0-4.8); Lymphocytes % (A) 23 %; MCH 30.9 pg (25.0-35.0); MCHC 31.8 g/dL (31.0-37.0); MCV 97.4 fL (80.0-100.0); Mean Platelet Volume 9.7; Monocytes # (A) 0.5 k/uL (0-1.0); Monocytes % (A) 5 %; Neutrophils # (A) 6.8 k/uL (1.3-7.7); Neutrophils % (A) 69 %; Platelet Count 268 k/uL (150-450); RBC 4.46 m/uL (3.80-5.40); RDW 13.9 % (11.5-15.5); WBC 9.8 k/uL (3.8-10.6)
[2024-05-06 07:05] LABS: ALT 14 U/L (4-34); AST 16 U/L (14-36); African American GFR (CKD) 30 (>60 ml/min/1.73 sqM); Alkaline Phosphatase 145 U/L (38-126); Anion Gap 4 mmol/L; Blood Urea Nitrogen 21 mg/dL (7-17); Calcium 9.8 mg/dL (8.4-10.2); Carbon Dioxide 25 mmol/L (22-30); Chloride 106 mmol/L (98-107); Glucose 213 mg/dL (74-99); Non-African American GFR(CKD) 26 (>60 ml/min/1.73 sqM); Sodium 135 mmol/L (137-145); Total Bilirubin 0.4 mg/dL (0.2-1.3); Total Protein 5.1 g/dL (6.3-8.2)
[2024-05-06 09:43] VITALS: BP 123/69; RESP 14; TEMP 98.7
--- NOTE | 2024-05-06 10:26 | P.DS ---
Providers Date of admission: 05/04/24 01:44 Expected date of discharge: 05/06/24 Attending physician: Evin Sanchez Consults: 05/04/24 01:44 Consult Physician Routine Consulting Provider: Iraida Gusman Consult Reason/Comments: NSTEMI Do you want consulting provider notified?: Yes Primary care physician: [facility] Course: discharge diagnosis Episode of chest pain, with mild elevation in troponin level Underlying history of coronary artery disease Previous history of stroke Underlying history of chronic kidney disease Underlying history of diabetes mellitus on insulin pump Underlying history of hypertension Underlying history of hyperlipidemia Underlying history of peripheral neuropathy Underlying history of peripheral arterial disease Previous history of ovarian cancer Ongoing tobacco abuse History of bipolar disorder followed by psychiatry Hospital course Leticia Langley, is a 53-year-old female who presented to [facility] emergency room with a chief complaint of chest pain, patient states that she started having episodes of chest pain on and off 4 days prior to adm ission, she stated that she thought it was related to acid reflux, and recent increase in her psychiatric medications, however she continued to have episodes of chest pain and decided to come to emergency room. She was evaluated in the emergency room vital examination on presentation revealed pulse 77 respiration 18 blood pressure 173/81 pulse ox 100% on room air Laboratory data revealed a white blood count of 11.4 hemoglobin 13.7 platelet count 267 BUN 22 creatinine 1.75 troponin level 0.081 Testing in the emergency room revealed EKG done in the emergency room revealed sinus rhythm with possible left atrial enlargement, right bundle branch block, left anterior fascicular block, and left ventricular hypertrophy. Chest x-ray done in the emergency room revealed no acute consolidation. Patient was admitted to medical floor for further evaluation and treatment Past medical history is significant for history of hypertension, history of hyperlipidemia, history of insulin-dependent diabetes mellitus maintained on insulin pump, history of coronary artery disease with previous history of myocardial infarction, history of chronic kidney disease, history of factor V Leiden disorder with prior history of DVT, history of CVA with right-sided weakness, history of peripheral neuropathy, history of obstructive sleep apnea, history of peripheral arterial disease, history of continued tobacco use, history of gastroesophageal reflux disease, patient underwent EGD in October 2023 which revealed mild antral gastritis. History of bipolar disorder. And history of ovarian cancer. On review of systems patient is alert and oriented, she is complaining of episodes of chest pain, otherwise she denies any complaints at this time, there is no fever or chills no headache or dizziness, no shortness of breath no cough no nausea or vomiting no abdominal pain no diarrhea and no urinary symptoms. On 05/05/2024 for patient's alert and oriented 3. Patient remains as overflow patient in the intensive care unit.Heparin drip has been DC'd per cardiology. Current vital signs temp 98.2, heart rate 66, respiratory rate 18, blood pressure 133/68 with pulse ox of 94% on room air. Patient denies any chest pain. Patient denies nausea vomiting or diarrhea. Patient denies any urinary burning or frequency on 05/06/2024 patient is alert and oriented 3. Per nursing staff patient has been cleared for discharge from cardiology standpoint will follow up outpatient for medical management patient to continue to take home medications hydralazine added for blood pressure control. Patient denies chest pain or shortness of breath. Patient denies nausea vomiting or diarrhea. Patient denies any urinary burning or frequency. Current vital signs temp 98.7, heart rate 71, respiratory rate 14, blood pressure 123/69 with pulse ox 95% Patient Condition at Discharge: Stable Plan - Discharge Summary Discharge Rx Participant: Yes New Discharge Prescriptions: New hydrALAZINE HCL [Apresoline] 50 mg PO TID 30 Days #90 tab Continue Aspirin [Adult Low Dose Aspirin EC] 81 mg PO HS DULoxetine HCL [Cymbalta] 60 mg PO DAILY Isosorbide Mononitrate ER [Imdur] 60 mg PO DAILY Famotidine 20 mg PO BID PRN PRN Reason: acid reflux Nitroglycerin Sl Tabs [Nitrostat] 0.4 mg SL Q5M PRN PRN Reason: Chest Pain Pregabalin [Lyrica] 150 mg PO BID INSULIN LISPRO (For Pump) [humaLOG (For Pump)] 0.01 units SQ-PUMP CONTINUOUS Atorvastatin [Lipitor] 40 mg PO HS amLODIPine [Norvasc] 10 mg PO DAILY ALPRAZolam [Xanax] 1 mg PO DAILY Ondansetron Odt [Zofran ODT] 8 mg PO Q12HR Empagliflozin [Jardiance] 10 mg PO DAILY Fenofibrate [Lofibra] 160 mg PO DAILY carvediloL [Coreg] 25 mg PO BID Budesonide/Formoterol Fumarate [Symbicort 160-4.5 Mcg Inhaler] 2 puff INHALATION RT-BID PRN PRN Reason: COPD Magnesium Oxide [Mag-Ox] 400 mg PO BID Sodium Bicarbonate 325 mg PO BID Cinacalcet [Sensipar] 30 mg PO MOTH ALPRAZolam [Xanax] 2 mg PO HS ARIPiprazole [Abilify] 10 mg PO HS Discharge Medication List Aspirin [Adult Low Dose Aspirin EC] 81 mg PO HS 11/26/17 [History] DULoxetine HCL [Cymbalta] 60 mg PO DAILY 08/25/18 [History] Isosorbide Mononitrate ER [Imdur] 60 mg PO DAILY 09/08/18 [History] Empagliflozin [Jardiance] 10 mg PO DAILY 10/06/22 [History] Famotidine 20 mg PO BID PRN 10/06/22 [History] Nitroglycerin Sl Tabs [Nitrostat] 0.4 mg SL Q5M PRN 10/06/22 [History] Fenofibrate [Lofibra] 160 mg PO DAILY 01/25/23 [History] Pregabalin [Lyrica] 150 mg PO BID 02/05/23 [History] carvediloL [Coreg] 25 mg PO BID 02/05/23 [History] Budesonide/Formoterol Fumarate [Symbicort 160-4.5 Mcg Inhaler] 2 puff INHALATION RT-BID PRN 07/17/23 [History] INSULIN LISPRO (For Pump) [humaLOG (For Pump)] 0.01 units SQ-PUMP CONTINUOUS 07/17/23 [History] Atorvastatin [Lipitor] 40 mg PO HS 12/11/23 [History] Magnesium Oxide [Mag-Ox] 400 mg PO BID 03/10/24 [History] ALPRAZolam [Xanax] 1 mg PO DAILY 03/28/24 [History] Cinacalcet [Sensipar] 30 mg PO MOTH 03/28/24 [History] Sodium Bicarbonate 325 mg PO BID 03/28/24 [History] amLODIPine [Norvasc] 10 mg PO DAILY 03/28/24 [History] ALPRAZolam [Xanax] 2 mg PO HS 05/04/24 [History] ARIPiprazole [Abilify] 10 mg PO HS 05/04/24 [History] Ondansetron Odt [Zofran ODT] 8 mg PO Q12HR 05/04/24 [History] hydrALAZINE HCL [Apresoline] 50 mg PO TID 30 Days #90 tab 05/06/24 [Rx] Follow up Appointment(s)/Referral(s): Dagmar Hennessy MD [Primary Care Provider] - 1-2 days Kaylee Jasso MD [STAFF PHYSICIAN] - 1 Week Activity/Diet/Wound Care/Special Instructions: Activity as tolerated Diet heart healthy
--- NOTE | 2024-05-06 11:24 | PN ---
PROGRESS NOTE SUBJECTIVE: Melina is a 53-year-old lady who is admitted to the hospital with atypical chest pain and palpitations, had mild troponin elevation of unclear clinical significance. An echocardiogram did not reveal wall motion abnormalities. There is mild LV systolic dysfunction. She is doing well and nausea, vomiting that she had has resolved and she does not have any other symptoms and is eager to go home. She has renal failure with a creatinine over 2. Both the patient and I have opted not to perform any invasive procedures unless we absolutely have to. MEDICATIONS: She is currently on, 1. Norvasc. 2. Aspirin. 3. Lipitor. 4. Coreg. 5. . 6. Imdur. OBJECTIVE: GENERAL: Comfortable at rest. VITAL SIGNS: Stable. CHEST: Reveals good air entry bilaterally. HEART: Reveals first and second heart sounds. No gallop. ABDOMEN: Soft. EXTREMITIES: Did not reveal any edema. Peripheral pulses are palpable. ASSESSMENT: 1. Elevated troponin probably secondary to renal failure. 2. CAD, status post angioplasty. 3. Hypertension. 4. Chronic renal failure. PLAN: The patient will continue with current medical therapy. I will treat the patient with optimal medical therapy for her underlying CAD and avoid cardiac catheterization unless we absolutely have to given the renal failure. MMODL / IJN: [id number] /
== END 2024-05-06 11:13 | disposition home or self-care (01) | DRG 198 ==
LOC: EC 21:41 → 3SCARD 05-04 01:44 → 2SICU 05-04 15:04
PROVIDERS: ADMIT Internal Medicine; ATTEND Internal Medicine
DX: R07.9 Chest pain, unspecified (principal); E11.22 Type 2 diabetes mellitus with diabetic chronic kidney disease; E11.51 Type 2 diabetes mellitus with diabetic peripheral angiopathy without gangrene; E66.9 Obesity, unspecified; E78.5 Hyperlipidemia, unspecified; F17.200 Nicotine dependence, unspecified, uncomplicated; F31.9 Bipolar disorder, unspecified; F40.240 Claustrophobia; G25.81 Restless legs syndrome; I69.351 Hemiplegia and hemiparesis following cerebral infarction affecting right dominant side; I12.9 Hypertensive chronic kidney disease with stage 1 through stage 4 chronic kidney disease, or unspecified chronic kidney disease; I25.10 Atherosclerotic heart disease of native coronary artery without angina pectoris; G47.33 Obstructive sleep apnea (adult) (pediatric); I25.2 Old myocardial infarction; I45.2 Bifascicular block; R79.89 Other specified abnormal findings of blood chemistry; M21.371 Foot drop, right foot; K21.9 Gastro-esophageal reflux disease without esophagitis; M79.7 Fibromyalgia; N18.9 Chronic kidney disease, unspecified; Z68.30 Body mass index [BMI] 30.0-30.9, adult; Z79.4 Long term (current) use of insulin; Z95.5 Presence of coronary angioplasty implant and graft; Z79.51 Long term (current) use of inhaled steroids; Z79.82 Long term (current) use of aspirin; Z79.84 Long term (current) use of oral hypoglycemic drugs; Z79.899 Other long term (current) drug therapy; Z85.43 Personal history of malignant neoplasm of ovary; Z86.718 Personal history of other venous thrombosis and embolism; Z96.41 Presence of insulin pump (external) (internal); Z91.041 Radiographic dye allergy status; Z88.2 Allergy status to sulfonamides
CPT/HCPCS: 36415; 71046; 80053; 83735; 84484; 85025; 85610; 85730; 93005; 93306; 96365; 96366; 99291

== ENCOUNTER 2024-05-09 20:27 | Inpatient (IN) | payer OTHER ==
[2024-05-09 20:33] LABS: Glucose,Whole Blood 361 mg/dL (70-110)
--- NOTE | 2024-05-09 20:36 | ED ---
Neuro HPI - General Chief Complaint: Neuro Symptoms/Deficit Stated Complaint: Stroke Time Seen by Provider: 05/09/24 20:31 Source: patient, EMS, RN notes reviewed, old records reviewed Mode of arrival: EMS - History of Present Illness Is the patient presenting with stroke symptoms?: Yes -: hour(s) (1) Initial Comments: This is a 53-year-old female to ER for weakness and numbness concerning for CVA history of recent MD. Patient has persistent symptoms here in the emergency department on arrival with no headache no fevers no other complaints Location: right arm, right leg, ataxia Place: home Severity: severe Quality: weak, numb, tingling Improves With: none Worsens With: none On Anticoagulants: Yes Context: sudden onset Associated Symptoms: confusion Treatments Prior to Arrival: none - Related Data Home Medications: Home Medications Medication Instructions Recorded Confirmed Aspirin [Adult Low Dose Aspirin EC] 81 mg PO HS 11/26/17 05/10/24 DULoxetine HCL [Cymbalta] 60 mg PO DAILY 08/25/18 05/10/24 Isosorbide Mononitrate ER [Imdur] 60 mg PO DAILY 09/08/18 05/10/24 Empagliflozin [Jardiance] 10 mg PO DAILY 10/06/22 05/10/24 Famotidine 20 mg PO BID PRN 10/06/22 05/10/24 Nitroglycerin Sl Tabs [Nitrostat] 0.4 mg SL Q5M PRN 10/06/22 05/10/24 Fenofibrate [Lofibra] 160 mg PO DAILY 01/25/23 05/10/24 Pregabalin [Lyrica] 150 mg PO BID 02/05/23 05/10/24 carvediloL [Coreg] 25 mg PO BID 02/05/23 05/10/24 Budesonide/Formoterol Fumarate 2 puff INHALATION RT-BID PRN 07/17/23 05/10/24 [Symbicort 160-4.5 Mcg Inhaler] INSULIN LISPRO (For Pump) [humaLOG 0.01 units SQ-PUMP CONTINUOUS 07/17/23 05/10/24 (For Pump)] Atorvastatin [Lipitor] 40 mg PO HS 12/11/23 05/10/24 Magnesium Oxide [Mag-Ox] 400 mg PO BID 03/10/24 05/10/24 ALPRAZolam [Xanax] 1 mg PO DAILY 03/28/24 05/10/24 Cinacalcet [Sensipar] 30 mg PO MOTH 03/28/24 05/10/24 Sodium Bicarbonate 325 mg PO BID 03/28/24 05/10/24 amLODIPine [Norvasc] 10 mg PO DAILY 03/28/24 05/10/24 ALPRAZolam [Xanax] 2 mg PO HS 05/04/24 05/10/24 ARIPiprazole [Abilify] 10 mg PO HS 05/04/24 05/10/24 Ondansetron Odt [Zofran ODT] 8 mg PO Q12HR 05/04/24 05/10/24 Previous Rx's Medication Instructions Recorded Clopidogrel [Plavix] 75 mg PO DAILY 30 Days #30 tab 05/13/24 cefUROXime axetiL [Ceftin] 500 mg PO BID 7 Days #14 tab 05/13/24 hydrALAZINE HCL [Apresoline] 75 mg PO TID 30 Days #180 tab 05/13/24 Allergies/Adverse Reactions: Allergies Allergy/AdvReac Type Severity Reaction Status Date / Time Fish Containing Products Allergy Anaphylaxis Verified 05/10/24 10:36 Iodinated Contrast Media Allergy Anaphylaxis Verified 05/10/24 10:36 [Iodinated Contrast Media - IV Dye] Sulfa (Sulfonamide Allergy Anaphylaxis Verified 05/10/24 10:36 Antibiotics) sulfamethoxazole Allergy Anaphylaxis Verified 05/10/24 10:36 [From Septra] tree nut [Nut] Allergy Anaphylaxis Verified 05/10/24 10:36 trimethoprim [From Junra] Allergy Anaphylaxis Verified 05/10/24 10:36 Review of Systems ROS Statement: Those systems with pertinent positive or pertinent negative responses have been documented in the HPI. ROS Other: All systems not noted in ROS Statement are negative. General Exam General appearance: alert, in no apparent distress Head exam: Present: atraumatic, normocephalic, normal inspection Eye exam: Present: normal appearance, PERRL, EOMI. Absent: scleral icterus, conjunctival injection, periorbital swelling ENT exam: Present: normal exam, mucous membranes moist Neck exam: Present: normal inspection. Absent: tenderness, meningismus, lymphadenopathy Respiratory exam: Present: normal lung sounds bilaterally. Absent: respiratory distress, wheezes, rales, rhonchi, stridor Cardiovascular Exam: Present: regular rate, normal rhythm, normal heart sounds. Absent: systolic murmur, diastolic murmur, rubs, gallop, clicks GI/Abdominal exam: Present: soft, normal bowel sounds. Absent: distended, tenderness, guarding, rebound, rigid Extremities exam: Present: normal inspection, full ROM, normal capillary refill. Absent: tenderness, pedal edema, joint swelling, calf tenderness Back exam: Present: normal inspection Neurological exam: Present: alert, oriented X3, CN II-XII intact Psychiatric exam: Present: normal affect, normal mood Skin exam: Present: warm, dry, intact, normal color. Absent: rash Stroke MDM - Lab Data Result diagrams: 05/13/24 10:00 05/13/24 10:00 Lab Results 05/09/24 05/09/24 05/09/24 Range/Units 20:31 20:32 20:32 WBC 13.1 H (3.8-10.6) k/uL RBC 4.31 (3.80-5.40) m/uL Hgb 13.8 (11.4-16.0) gm/dL Hct 42.6 (34.0-46.0) % MCV 98.7 (80.0-100.0) fL MCH 31.9 (25.0-35.0) pg MCHC 32.4 (31.0-37.0) g/dL RDW 13.9 (11.5-15.5) % Plt Count 256 (150-450) k/uL MPV 9.8 Neutrophils % 73 % Lymphocytes % 21 % Monocytes % 3 % Eosinophils % 2 % Basophils % 0 % Neutrophils # 9.5 H (1.3-7.7) k/uL Lymphocytes # 2.8 (1.0-4.8) k/uL Monocytes # 0.4 (0-1.0) k/uL Eosinophils # 0.2 (0-0.7) k/uL Basophils # 0.1 (0-0.2) k/uL PT 10.4 (10.0-12.5) sec INR 0.9 (<1.2) APTT 26.6 (22.0-30.0) sec Sodium (137-145) mmol/L Potassium (3.5-5.1) mmol/L Chloride (98-107) mmol/L Carbon Dioxide (22-30) mmol/L Anion Gap mmol/L BUN (7-17) mg/dL Creatinine (0.52-1.04) mg/dL Est GFR (CKD-EPI)AfAm (>60 ml/min/1.73 sqM) Est GFR (CKD-EPI)NonAf (>60 ml/min/1.73 sqM) Glucose (74-99) mg/dL POC Glucose (mg/dL) 361 H (70-110) mg/dL POC Glu Furniture Restorer ID Aleksey Tim Calcium (8.4-10.2) mg/dL Total Bilirubin (0.2-1.3) mg/dL AST (14-36) U/L ALT (4-34) U/L Alkaline Phosphatase (38-126) U/L Creatine Kinase (30-135) U/L Troponin I (0.000-0.034) ng/mL Total Protein (6.3-8.2) g/dL Albumin (3.5-5.0) g/dL 05/09/24 05/09/24 Range/Units 20:32 20:32 WBC (3.8-10.6) k/uL RBC (3.80-5.40) m/uL Hgb (11.4-16.0) gm/dL Hct (34.0-46.0) % MCV (80.0-100.0) fL MCH (25.0-35.0) pg MCHC (31.0-37.0) g/dL RDW (11.5-15.5) % Plt Count (150-450) k/uL MPV Neutrophils % % Lymphocytes % % Monocytes % % Eosinophils % % Basophils % % Neutrophils # (1.3-7.7) k/uL Lymphocytes # (1.0-4.8) k/uL Monocytes # (0-1.0) k/uL Eosinophils # (0-0.7) k/uL Basophils # (0-0.2) k/uL PT (10.0-12.5) sec INR (<1.2) APTT (22.0-30.0) sec Sodium 134 L (137-145) mmol/L Potassium 4.4 (3.5-5.1) mmol/L Chloride 105 (98-107) mmol/L Carbon Dioxide 22 (22-30) mmol/L Anion Gap 7 mmol/L BUN 31 H (7-17) mg/dL Creatinine 2.15 H (0.52-1.04) mg/dL Est GFR (CKD-EPI)AfAm 30 (>60 ml/min/1.73 sqM) Est GFR (CKD-EPI)NonAf 26 (>60 ml/min/1.73 sqM) Glucose 354 H (74-99) mg/dL POC Glucose (mg/dL) (70-110) mg/dL POC Glu Furniture Restorer ID Calcium 9.9 (8.4-10.2) mg/dL Total Bilirubin 0.5 (0.2-1.3) mg/dL AST 18 (14-36) U/L ALT 16 (4-34) U/L Alkaline Phosphatase 153 H (38-126) U/L Creatine Kinase 93 (30-135) U/L Troponin I 0.030 (0.000-0.034) ng/mL Total Protein 5.4 L (6.3-8.2) g/dL Albumin 3.3 L (3.5-5.0) g/dL - NIH Stroke Scale 1a. Level of Consciousness: (1) not alert, arousable 1c. LOC Commands: (0) performs tasks correctly 2. Best Gaze: (0) normal 3. Visual: (0) no visual loss 4. Facial Palsy: (0) normal symmetrical movement 5a. Motor Arm Left: (3) no gravity effort 5b. Motor Arm Right: (0) no drift 6a. Motor Leg Left: (3) no gravity effort 6b. Motor Leg Right: (0) no drift 7. Limb Ataxia: (1) present 1 limb 8. Sensory: (0) normal 9. Best Language: (0) no aphasia 10. Dysarthria: (0) normal 11. Extinction/Inattention: (0) no abnormality - Thrombolytic Inclusion/Exclusion Thrombolytic Inclusion Criteria: Symptom Onset < 4.5 h, NIH Stroke Scale Deficit (8) - Core Measures AMI Core Measures Followed: Yes Measure Exclusions: contraindicated (Family refusal and improving symptoms) - Medical Decision Making 53 female to ER with acute CVA, significant symptoms with improving symptoms here in the ER, no repeat tPA was given secondary to family refusal, code stroke was paged on patient arrival - Radiology Data Radiology results: report reviewed (CT brain and CTA head neck negative for acute disease), image reviewed - EKG Data -: EKG Interpreted by Me (EKG is sinus 74 MA 167 QRS 171 QTc 480) Past Medical History Past Medical History: Blood Disorder, Coronary Artery Disease (CAD), Cancer, Chest Pain / Angina, CVA/TIA, Diabetes Mellitus, Deep Vein Thrombosis (DVT), Fibromyalgia, GERD/Reflux, Hyperlipidemia, Hypertension, Myocardial Infarction (MD), Musculoskeletal Disorder, Neurologic Disorder, Renal Disease, Sleep Apnea/CPAP/BIPAP, Vascular Disorder Additional Past Medical History / Comment(s): IDDM type II, uterine/cervical and ovarian cancer, restless leg, Factor V blood disorder, DVT R leg, 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 - slight foot drag when tired/neuropathies, MS, MD X 5, ABIGAIL with Cpap use, PAD/legs, R leg edema, past pancreatitis. HAD MD 10/27/23 Last Myocardial Infarction Date:: LAST ONE 10/27/23 History of Any Multi-Drug Resistant Organisms: None Reported Past Surgical History: Section, Cholecystectomy, Heart Catheterization With Stent, Hysterectomy, Tubal Ligation, Uterine Ablation Additional Past Surgical History / Comment(s): vein stripping right leg, radio frequency ablation of right back-02/22/2015, four stents on 04/03/16 and one on march 05, ovaries removed, colonscopy- polyp removal Past Anesthesia/Blood Transfusion Reactions: Motion Sickness Additional Past Anesthesia/Blood Transfusion Reaction / Comment(s): mild claustrophobia Date of Last Stent Placement:: 04/03/16 Past Psychological History: Anxiety, Depression Smoking Status: Current every day smoker Past Alcohol Use History: None Reported Past Drug Use History: None Reported - Past Family History Father Family Medical History: Congestive Heart Failure (CHF), Coronary Artery Disease (CAD), Diabetes Mellitus Mother Family Medical History: Cancer, COPD, Hypertension, Respiratory Disorder Additional Family Medical History / Comment(s): emphysema, colon CA Course Vital Signs 05/09/24 05/09/24 05/09/24 20:33 21:02 21:17 Temperature 97.9 F 98.1 F Pulse Rate 72 74 75 Respiratory 16 26 H 18 Rate Blood Pressure 169/80 182/88 188/85 O2 Sat by Pulse 89 L 98 97 Oximetry 05/09/24 21:25 Temperature Pulse Rate 76 Respiratory 18 Rate Blood Pressure 188/85 O2 Sat by Pulse 96 Oximetry - Reevaluation(s) Reevaluation #1: 05/09/24 21:13 Records reviewed 05/09/24 21:13 Code stroke was called on patient arrival Reevaluation #2: 05/09/24 21:13 Patient begins to show improvement in symptoms no tPA secondary improvement in symptoms family does refuse tPA when spoken with In regards to pros and cons risk and benefit Reevaluation #3: 05/09/24 21:14 Patient and family informed of results and questions answered Reevaluation #4: Was pt. sent in by a medical professional or institution (, DENNIS, BULK CLERK, urgent care, hospital, or longterm...) When possible be specific @ -no Did you speak to anyone other than the patient for history (EMS, parent, family, police, friend...)? What history was obtained from this source @ -no Did you review nursing and triage notes (agree or disagree)? Why? @ -agree Are old charts reviewed (outside hosp., previous admission, EMS record, old EKG, old radiological studies, urgent care reports/EKG's, longterm records)? Report findings @ -yes Differential Diagnosis (chest pain, altered mental status, abdominal pain women, abdominal pain men, vaginal bleeding, weakness, fever, dyspnea, syncope, headache, dizziness, GI bleed, back pain, seizure, CVA, palpatations, mental health, musculoskeletal)? @ -prior EKG interpreted by me (3pts min.). @ -yes X-rays interpreted by me (1pt min.). @ -yes negative for acute disease CT interpreted by me (1pt min.). @ -Yes negative for acute disease U/S interpreted by me (1pt. min.). @ -no What testing was considered but not performed or refused? (CT, X-rays, U/S, labs)? Why? @ -none What meds were considered but not given or refused? Why? @ -none Did you discuss the management of the patient with other professionals (professionals i.e. DENNIS Mayo, BULK CLERK, lab, RT, psych nurse, social media analyst, skiver machine, teacher, toxics program officer, dependency case manager)? Give summary @ -no Was smoking cessation discussed for >3mins.? @ -no Was critical care preformed (if so, how long)? @ -yes31 Were there social determinants of health that impacted care today? How? (Homelessness, low income, unemployed, alcoholism, drug addiction, transportation, low edu. Level, literacy, decrease access to med. care, longterm, rehab)? @ -none Was there de-escalation of care discussed even if they declined (Discuss DNR or withdrawal of care, Hospice)? DNR status @ -no What co-morbidities impacted this encounter? (DM, HTN, Smoking, COPD, CAD, Cancer, CVA, ARF, Chemo, Hep., AIDS, mental health diagnosis, sleep apnea, morbid obesity)? @ -none Was patient admitted / discharged? Hospital course, mention meds given and route, prescriptions, significant lab abnormalities, going to OR and other p ertinent info. @ - 53 female to ER with acute CVA, significant symptoms with improving symptoms here in the ER, no repeat tPA was given secondary to family refusal, code stroke was paged on patient arrival Admitted Undiagnosed new problem with uncertain prognosis? @ -no Drug Therapy requiring intensive monitoring for toxicity (Heparin, Nitro, Insulin, Cardizem)? @ -no Were any procedures done? @ -no Diagnosis/symptom? @ -CVA Acute, or Chronic, or Acute on Chronic? @ -Acute Uncomplicated (without systemic symptoms) or Complicated (systemic symptoms)? @ -Complicated Side effects of treatment? @ -no Exacerbation, Progression, or Severe Exacerbation? @ -exacerbation Poses a threat to life or bodily function? How? (Chest pain, USA, MD, pneumonia, PE, COPD, DKA, ARF, appy, cholecystitis, CVA, Diverticulitis, Homicidal, Suicidal, threat to staff... and all critical care pts) @ -yes acute CVA Reevaluation #5: Differential CVA Ischemic stroke, hemorrhagic stroke, brain tumor, atypical migraine, Wernicke's encephalopathy, seizure, multiple sclerosis, meningitis, encephalitis, hypoglycemia, Guillain-Knapp, electrolytes disturbance, myasthenia gravis.... Th is is not meant to be an all-inclusive list - Consultations Consultation #1: Spoke with [facility] who agrees to admit this patient Critical Care Time Critical Care Time: Yes Total Critical Care Time: 31 Disposition Clinical Impression: Cerebrovascular accident (CVA) Disposition: ADMITTED IP TO THIS HOSP Condition: Stable Is patient prescribed a controlled substance at d/c from ED?: No Time of Disposition: 21:10
[2024-05-09] MEDS: FAMOTIDINE 20 MG/2 ML VIAL IV STA (20:38)
[2024-05-09] MEDS: diphenhydrAMINE 50 MG/ML 1 ML VIAL IVP STA (20:39)
[2024-05-09] MEDS: methylPREDNISolone SOD SUCCI 125 MG/2 ML VIAL IV STA (20:39)
[2024-05-09 20:51] LABS: Basophils # (A) 0.1 k/uL (0-0.2); Basophils % (A) 0 %; Eosinophils # (A) 0.2 k/uL (0-0.7); Eosinophils % (A) 2 %; HCT 42.6 % (34.0-46.0); HGB 13.8 gm/dL (11.4-16.0); Lymphocytes # (A) 2.8 k/uL (1.0-4.8); Lymphocytes % (A) 21 %; MCH 31.9 pg (25.0-35.0); MCHC 32.4 g/dL (31.0-37.0); MCV 98.7 fL (80.0-100.0); Mean Platelet Volume 9.8; Monocytes # (A) 0.4 k/uL (0-1.0); Monocytes % (A) 3 %; Neutrophils # (A) 9.5 k/uL (1.3-7.7); Neutrophils % (A) 73 %; Platelet Count 256 k/uL (150-450); RBC 4.31 m/uL (3.80-5.40); RDW 13.9 % (11.5-15.5); WBC 13.1 k/uL (3.8-10.6)
[2024-05-09] MEDS: SODIUM CHLORIDE 0.9% 1,000 ML IV STA (20:56)
[2024-05-09 21:05] LABS: INR 0.9 (<1.2); Partial Thromboplastin Time 26.6 sec (22.0-30.0); Prothrombin Time 10.4 sec (10.0-12.5)
[2024-05-09] MEDS: T.ENECTEPLASE 5 MG/ML VIAL IVP STA (21:12)
--- NOTE | 2024-05-09 21:17 | CT ---
EXAMINATION TYPE: CODE STROKE: CT brain wo contr DATE OF EXAM: 05/09/2024 COMPARISON: None HISTORY: Hx of stroke in 2017. CT DLP: 1180.[address] of the brain was performed. The ventricles, basal cisterns and sulci overlying the cerebral convexities demonstrate mild enlargem ent. There is no evidence for intracranial hemorrhage or sulcal effacement. There is decreased attenuation about the periventricular white matter and deep white matter of both c erebral hemispheres, compatible with chronic small vessel ischemia. Differential diagnosis does inclu de demyelination. No mass effects are seen.No midline shift. Osseous calvarium is intact. If symptoms persist consider MRI. IMPRESSION: 1. Age related atrophic and chronic small vessel ischemic change without acute intracranial process s een at this time.
--- NOTE | 2024-05-09 21:18 | CT ---
EXAMINATION TYPE: CT angio head neck DATE OF EXAM: 05/09/2024 COMPARISON: HISTORY: acute stroke CT DLP: 670.3 mGycm CONTRAST: Performed with IV Contrast, patient injected with 65 cc mL of Isovue 370. Combination Contrast CTA cervical carotids and [place] of [place] CTA cervical carotids with 3-D recons truction Contrast CTA of the cervical carotids was performed 3-D reconstruction imaging obtained at a separate workstation. Right carotid system: Mild plaque is seen of the right common carotid artery. There is mild plaque a lso noted at the carotid bulb and proximal ICA. No significant diameter reduction. ECA is patent. Right vertebral artery appears unremarkable. Left carotid system: Mild plaque is seen of the left common carotid artery. There is mild plaque als o noted at the carotid bulb and proximal ICA. No significant diameter reduction. ECA is patent. Lef t vertebral artery appears unremarkable. IMPRESSION: 1. No significant diameter reduction to account for the patient's symptoms. CTA hug[place] of [place] with 3-D reconstruction Contrast CTA of the hughes of [place] was performed 3-D reconstruction imaging obtained at a separate workstation. Vertebrobasilar system as well as intracranial portions of the internal carotid arteries and their [place] tributaries are patent. I do not see evidence for sizable aneurysm or vascular malformation. Pl ease note MRI provides greater sensitivity and specificity. Visualized brain appears grossly unremar kable. IMPRESSION: 1. No siginificant abnormality. NASCET criteria was used in interpretation of this exam?
[2024-05-09 21:22] LABS: ALT 16 U/L (4-34); AST 18 U/L (14-36); African American GFR (CKD) 30 (>60 ml/min/1.73 sqM); Albumin 3.3 g/dL (3.5-5.0); Alkaline Phosphatase 153 U/L (38-126); Anion Gap 7 mmol/L; Blood Urea Nitrogen 31 mg/dL (7-17); Calcium 9.9 mg/dL (8.4-10.2); Carbon Dioxide 22 mmol/L (22-30); Chloride 105 mmol/L (98-107); Creatine Kinase 93 U/L (30-135); Glucose 354 mg/dL (74-99); Non-African American GFR(CKD) 26 (>60 ml/min/1.73 sqM); Potassium 4.4 mmol/L (3.5-5.1); Sodium 134 mmol/L (137-145); Total Bilirubin 0.5 mg/dL (0.2-1.3); Total Protein 5.4 g/dL (6.3-8.2)
[2024-05-09] MEDS: ASPIRIN 325 MG TAB PO STA (21:25)
[2024-05-09 23:02] LABS: Glucose,Whole Blood 395 mg/dL (70-110)
[2024-05-09] MEDS ORDERED: FAMOTIDINE 20 MG TAB PO PRN (23:24)
[2024-05-09] MEDS ORDERED: SYMBICORT 160-4.5 MCG INHALER INHALATION PRN (23:24)
[2024-05-09] MEDS ORDERED: DEXTROSE 50% SYRINGE 50 ML IVP PRN ×2 (23:27)
[2024-05-09] MEDS ORDERED: hydrALAZINE HCL 20 MG/ML 1 ML VIAL IVP PRN (23:28)
[2024-05-09] MEDS: INSULIN ASPART (NovoLOG) 100 UNIT/ML VIAL SQ SCH (23:47)
--- NOTE | 2024-05-10 01:16 | XR ---
EXAM: XR Chest, 2 Views CLINICAL HISTORY: altered mental status TECHNIQUE: Frontal and lateral views of the chest. COMPARISON: 01-29-23 FINDINGS: Lungs: Mild diffuse airspace opacities in both lungs with central distribution. Pleural space: Unremarkable. Mediastinum: Unremarkable. Normal mediastinal contour. Bones/joints: Osteopenia. IMPRESSION: Mild diffuse airspace opacities in both lungs with central distribution may represent atelectasis and/or pneumonia versus mild pulmonary edema.
[2024-05-10 01:51] LABS: Glucose,Whole Blood 432 mg/dL (70-110)
[2024-05-10 06:11] LABS: Glucose,Whole Blood 447 mg/dL (70-110)
[2024-05-10] MEDS: carvediloL 12.5 MG TAB PO SCH (06:15)
[2024-05-10] MEDS ORDERED: ASPIRIN 325 MG TAB PO SCH (09:00)
[2024-05-10] MEDS: PREGABALIN 75 MG CAP PO SCH (09:19)
[2024-05-10] MEDS: SODIUM BICARBONATE TAB 650 MG TAB PO SCH (09:19)
[2024-05-10] MEDS: hydrALAZINE HCL 50 MG TAB PO SCH (09:19)
[2024-05-10] MEDS: DAPAGLIFLOZIN PROPANEDIOL 5 MG TABLET PO SCH (09:19)
[2024-05-10] MEDS: MAGNESIUM OXIDE 400 MG TAB PO SCH (09:19)
[2024-05-10] MEDS: amLODIPine 10 MG TAB PO SCH (09:19)
[2024-05-10] MEDS: DULoxetine HCL 60 MG CAPSULE.DR PO SCH (09:19)
[2024-05-10] MEDS: FENOFIBRATE 160 MG TAB PO SCH (09:19)
[2024-05-10] MEDS: ISOSORBIDE MONONITRATE ER 60 MG TAB.ER.24H PO SCH (09:19)
[2024-05-10] MEDS: ALPRAZolam 1 MG TAB PO SCH (09:19)
--- NOTE | 2024-05-10 10:26 | P.HPIM ---
History of Present Illness H&P Date: 05/10/24 This is a 53-year-old female patient of Dr. Lima who presented with concerns of right sided numbness. Patient reports that she was just watching TV yesterday when she became very weak and had tingling on her right arm and leg. Patient denies slurred speech or loss of consciousness. Patient does have a history of previous CVA with significant right-sided weakness. Patient reports that symptoms are improving but she still has some numbness to that right side patient was recently here and treated for non-STEMI. Patient reports she has a significant history of coronary artery disease with multiple stents, stroke, chronic kidney disease, diabetes mellitus on insulin pump, hypertension, hy perlipidemia, peripheral neuropathy, peripheral artery disease, ovarian cancer and ongoing tobacco use. Head CT was completed showing age-related atrophic and chronic small vessel ischemic changes without acute intracranial process seen at this time. CTA performed showing no significant abnormality. Chest x-ray completed showing mild diffuse airspace opacities in both lungs with central considered may represent atelectasis and/or pneumonia versus mild pulmonary edema. Patient denies any respiratory symptoms will order 2 view chest x-ray to follow-up. At this time cardiology and neurology services will be consulted PT OT services consulted. Current vital signs Temp 98.1, heart rate 75, respiratory rate 18, blood pressure 137/71 with a pulse ox of 98% on 2 L Review of Systems Please refer to HPI otherwise unremarkable Past Medical History Past Medical History: Blood Disorder, Coronary Artery Disease (CAD), Cancer, Chest Pain / Angina, CVA/TIA, Diabetes Mellitus, Deep Vein Thrombosis (DVT), Fibromyalgia, GERD/Reflux, Hyperlipidemia, Hypertension, Myocardial Infarction (CA), Musculoskeletal Disorder, Neurologic Disorder, Renal Disease, Sleep Apnea/CPAP/BIPAP, Vascular Disorder Additional Past Medical History / Comment(s): IDDM type II, uterine/cervical and ovarian cancer, restless leg, Factor V blood disorder, DVT R leg, 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 HAD CA 10/27/23 Last Myocardial Infarction Date:: LAST ONE 10/27/23 History of Any Multi-Drug Resistant Organisms: None Reported Past Surgical History: Section, Cholecystectomy, Heart Catheterization With Stent, Hysterectomy, Tubal Ligation, Uterine Ablation Additional Past Surgical History / Comment(s): vein stripping right leg, radio frequency ablation of right back-02/22/2015, four stents on 04/03/16 and one on march 05, ovaries removed, colonscopy- polyp removal Past Anesthesia/Blood Transfusion Reactions: Motion Sickness Additional Past Anesthesia/Blood Transfusion Reaction / Comment(s): mild claustrophobia Date of Last Stent Placement:: 04/03/16 Past Psychological History: Anxiety, Depression Additional Psychological History / Comment(s): Pt resides with her spouse. She is mostly in her wheelchair. She has a walker and cane. She has a dexcom. Her spouse assists her with her medication organization. Spouse also drives pt. Smoking Status: Former smoker Past Alcohol Use History: None Reported Additional Past Alcohol Use History / Comment(s): Pt started smoking in 1988 and quit recently Past Drug Use History: None Reported - Past Family History Father Family Medical History: Congestive Heart Failure (CHF), Coronary Artery Disease (CAD), Diabetes Mellitus Mother Family Medical History: Cancer, COPD, Hypertension, Respiratory Disorder Additional Family Medical History / Comment(s): emphysema, colon CA Medications and Allergies Home Medications Medication Instructions Recorded Confirmed Type Aspirin [Adult Low Dose Aspirin EC] 81 mg PO HS 11/26/17 05/09/24 History DULoxetine HCL [Cymbalta] 60 mg PO DAILY 08/25/18 05/09/24 History Isosorbide Mononitrate ER [Imdur] 60 mg PO DAILY 09/08/18 05/09/24 History Empagliflozin [Jardiance] 10 mg PO DAILY 10/06/22 05/09/24 History Famotidine 20 mg PO BID PRN 10/06/22 05/09/24 History Nitroglycerin Sl Tabs [Nitrostat] 0.4 mg SL Q5M PRN 10/06/22 05/09/24 History Fenofibrate [Lofibra] 160 mg PO DAILY 01/25/23 05/09/24 History Pregabalin [Lyrica] 150 mg PO BID 02/05/23 05/09/24 History carvediloL [Coreg] 25 mg PO BID 02/05/23 05/09/24 History Budesonide/Formoterol Fumarate 2 puff INHALATION RT-BID PRN 07/17/23 05/09/24 History [Symbicort 160-4.5 Mcg Inhaler] INSULIN LISPRO (For Pump) [humaLOG 0.01 units SQ-PUMP CONTINUOUS 07/17/23 05/09/24 History (For Pump)] Atorvastatin [Lipitor] 40 mg PO HS 12/11/23 05/09/24 History Magnesium Oxide [Mag-Ox] 400 mg PO BID 03/10/24 05/09/24 History ALPRAZolam [Xanax] 1 mg PO DAILY 03/28/24 05/09/24 History Cinacalcet [Sensipar] 30 mg PO MOTH 03/28/24 05/09/24 History Sodium Bicarbonate 325 mg PO BID 03/28/24 05/09/24 History amLODIPine [Norvasc] 10 mg PO DAILY 03/28/24 05/09/24 History ALPRAZolam [Xanax] 2 mg PO HS 05/04/24 05/09/24 History ARIPiprazole [Abilify] 10 mg PO HS 05/04/24 05/09/24 History Ondansetron Odt [Zofran ODT] 8 mg PO Q12HR 05/04/24 05/09/24 History hydrALAZINE HCL [Apresoline] 50 mg PO TID 30 Days #90 tab 05/06/24 05/09/24 Rx Allergies Allergy/AdvReac Type Severity Reaction Status Date / Time Fish Containing Products Allergy Anaphylaxis Verified 05/09/24 20:35 Iodinated Contrast Media Allergy Anaphylaxis Verified 05/09/24 20:35 [Iodinated Contrast Media - IV Dye] Sulfa (Sulfonamide Allergy Anaphylaxis Verified 05/09/24 20:35 Antibiotics) sulfamethoxazole Allergy Anaphylaxis Verified 05/09/24 20:35 [From Junra] tree nut [Nut] Allergy Anaphylaxis Verified 05/09/24 20:35 trimethoprim [From Junra] Allergy Anaphylaxis Verified 05/09/24 20:35 Physical Exam Vitals: Vital Signs Temp Pulse Pulse Resp BP BP Pulse Ox 05/10/24 08:00 98.1 F 75 18 166/81 98 05/10/24 03:41 98.3 F 74 18 137/71 96 05/10/24 00:00 97.9 F 74 19 166/78 96 05/09/24 21:25 76 18 188/85 96 05/09/24 21:17 75 18 188/85 97 05/09/24 21:02 98.1 F 74 26 H 182/88 98 05/09/24 20:33 97.9 F 72 16 169/80 89 L Intake and Output 05/09/24 05/10/24 05/10/24 22:59 06:59 14:59 Output Total 500 Balance -500 Output: Urine 500 Other: Voiding Method External Catheter Weight 94.12 kg 86.5 kg Head normocephalic Neck supple Lungs clear to auscultation bilaterally no wheezing or crackles Heart regular rate and rhythm S1-S2, no rub or gallop Abdomen is soft nontender nondistended positive bowel sounds no hepatosplenomegaly Extremities no edema Neuro alert and orientated to 3. Patient has chronic right arm and right leg weakness secondary to previous stroke Results CBC & Chem 7: 05/09/24 20:32 05/09/24 20:32 Labs: Abnormal Lab Results - Last 24 Hours (Table) 05/09/24 05/09/24 05/09/24 Range/Units 20:31 20:32 20:32 WBC 13.1 H (3.8-10.6) k/uL Neutrophils # 9.5 H (1.3-7.7) k/uL Sodium 134 L (137-145) mmol/L BUN 31 H (7-17) mg/dL Creatinine 2.15 H (0.52-1.04) mg/dL Glucose 354 H (74-99) mg/dL POC Glucose (mg/dL) 361 H (70-110) mg/dL Alkaline Phosphatase 153 H (38-126) U/L Total Protein 5.4 L (6.3-8.2) g/dL Albumin 3.3 L (3.5-5.0) g/dL 05/09/24 05/10/24 05/10/24 Range/Units 23:00 01:49 06:07 WBC (3.8-10.6) k/uL Neutrophils # (1.3-7.7) k/uL Sodium (137-145) mmol/L BUN (7-17) mg/dL Creatinine (0.52-1.04) mg/dL Glucose (74-99) mg/dL POC Glucose (mg/dL) 395 H 432 H 447 H (70-110) mg/dL Alkaline Phosphatase (38-126) U/L Total Protein (6.3-8.2) g/dL Albumin (3.5-5.0) g/dL Thrombosis Risk Factor Assmnt - Choose All That Apply Any of the Below Risk Factors Present?: Yes Each Factor Represents 1 point: Age 41-60 years, Obesity (BMI >25) Thrombosis Risk Factor Assessment Total Risk Factor Score: 2 Thrombosis Risk Factor Assessment Level: Low Risk Assessment and Plan Assessment: 1. Right sided numbness and tingling possible CVA 2. Recent admission for non-STEMI 3. History of CVA with right-sided weakness in 2017 4. History of MS patient reports he follows with neurology services 5. History of significant coronary artery disease with multiple stent placement 6. History of diabetes mellitus 7. History of essential hypertension 8. History of hyperlipidemia 9. History of peripheral neuropathy 10. History of peripheral arterial disease 11. History of ovarian cancer 12. History of bipolar disorder followed by psychiatry DVT prophylaxis Lovenox. GI prophylaxis Protonix Neurology and cardiology services consulted Repeat labs ordered PT OT services consulted Time with Patient: Greater than 30 (Greater than 60% of the total time spent in counseling and coordination of care)
[2024-05-10 12:04] LABS: Glucose,Whole Blood 558 mg/dL (70-110)
[2024-05-10 12:04] LABS: Glucose,Whole Blood >600 mg/dL (70-110)
--- NOTE | 2024-05-10 12:36 | XR ---
EXAMINATION TYPE: XR chest 2V DATE OF EXAM: 05/10/2024 COMPARISON: NONE HISTORY: Shortness of breath TECHNIQUE: Frontal and lateral views of the chest are obtained. FINDINGS: Scattered senescent parenchymal changes noted. Hyperinflation compatible with COPD. No evidence for infiltrate. No evidence for atelectasis. Heart size is stable. Mediastinal structures are stable and grossly unremarkable. No evidence for hilar prominence. Degenerative changes dorsal spine. IMPRESSION: 1. No evidence for acute pulmonary disease.
[2024-05-10 12:47] LABS: Glucose,Whole Blood 579 mg/dL (70-110)
[2024-05-10 13:19] LABS: Chol/HDL Ratio 5.86 Ratio; LDL Cholesterol,Calculated 173.1 mg/dL (0.0-131.0)
[2024-05-10 14:20] LABS: Glucose,Whole Blood 549 mg/dL (70-110)
--- NOTE | 2024-05-10 15:59 | P.CNNES ---
History of Present Illness Consult date: 05/10/24 History of Present Illness: The patient is a 53-year-old female who was seen in neurologic consultation on May 10, 2024, in collaboration with Gaby Basurto, via teleneurology. History is obtained from the patient as well as review of the chart. The patient reports coming into the emergency department because yesterday, she had sudden onset of numbness involving the right side of her body. She says the whole right side became numb. She was unable to move it. She reportedly had no difficulty with speech. She reports blurring of her vision, involving her left eye. She did have an associated headache. Patient denied difficulty swallowing. Patient has a significant past medical history of hypertension, hyperlipidemia, multiple sclerosis, diabetes mellitus, coronary artery disease, myocardial infarction, chronic kidney disease, factor V Leiden deficiency, DVT, previous stroke, peripheral neuropathy, peripheral arterial disease, obstructive sleep apnea, bipolar disorder and fibromyalgia. In the emergency department, CT scan of the brain was performed. There is no reported evidence of acute hemorrhage or infarct. CT angiogram of the head and neck was performed. There is no reported significant stenosis or large vessel occlusion. The patient reports that her symptoms lasted for approximately 2 and half hours. They have nearly, completely resolved. The only symptom she reports is still remaining is "tenderness of my right leg". The patient wonders if her symptoms may be secondary to an exacerbation of her multiple sclerosis. The patient states that she was scheduled to receive her Ocrevus infusion in February and was unable to make it. She has been receiving Ocrevus for the past 4 years. She reportedly is doing well with this medication. The patient states normally she is able to ambulate with the use of a cane and/or very slowly. The patient reports that she has an appointment scheduled with her neurologist for July and will have follow-up with us at that time. In regards to her previous strokes, the patient reports residual right upper extremity weakness with contracture. Because of this, the patient has had to teach herself to use her left hand for daily activities. Past Medical History Past Medical History: Blood Disorder, Coronary Artery Disease (CAD), Cancer, Chest Pain / Angina, CVA/TIA, Diabetes Mellitus, Deep Vein Thrombosis (DVT), Fibromyalgia, GERD/Reflux, Hyperlipidemia, Hypertension, Myocardial Infarction (AL), Musculoskeletal Disorder, Neurologic Disorder, Renal Disease, Sleep Apnea/CPAP/BIPAP, Vascular Disorder Additional Past Medical History / Comment(s): IDDM type II, uterine/cervical and ovarian cancer, restless leg, Factor V blood disorder, DVT R leg, 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 - slight foot drag when tired/neuropathies, MS, AL X 5, ABIGAIL with Cpap use, PAD/legs, R leg edema, past pancreatitis. HAD AL 10/27/23 Last Myocardial Infarction Date:: LAST ONE 10/27/23 History of Any Multi-Drug Resistant Organisms: None Reported Past Surgical History: Section, Cholecystectomy, Heart Catheterization With Stent, Hysterectomy, Tubal Ligation, Uterine Ablation Additional Past Surgical History / Comment(s): vein stripping right leg, radio frequency ablation of right back-02/22/2015, four stents on 04/03/16 and one on march 05, ovaries removed, colonscopy- polyp removal Past Anesthesia/Blood Transfusion Reactions: Motion Sickness Additional Past Anesthesia/Blood Transfusion Reaction / Comment(s): mild claustrophobia Date of Last Stent Placement:: 04/03/16 Past Psychological History: Anxiety, Depression Additional Psychological History / Comment(s): Pt resides with her spouse. She is mostly in her wheelchair. She has a walker and cane. She has a dexcom. Her spouse assists her with her medication organization. Spouse also drives pt. Smoking Status: Former smoker Past Alcohol Use History: None Reported Additional Past Alcohol Use History / Comment(s): Pt started smoking in 1988 and quit recently Past Drug Use History: None Reported - Past Family History Father Family Medical History: Congestive Heart Failure (CHF), Coronary Artery Disease (CAD), Diabetes Mellitus Mother Family Medical History: Cancer, COPD, Hypertension, Respiratory Disorder Additional Family Medical History / Comment(s): emphysema, colon CA Medications and Allergies Home Medications Medication Instructions Recorded Confirmed Type Aspirin [Adult Low Dose Aspirin EC] 81 mg PO HS 11/26/17 05/10/24 History DULoxetine HCL [Cymbalta] 60 mg PO DAILY 08/25/18 05/10/24 History Isosorbide Mononitrate ER [Imdur] 60 mg PO DAILY 09/08/18 05/10/24 History Empagliflozin [Jardiance] 10 mg PO DAILY 10/06/22 05/10/24 History Famotidine 20 mg PO BID PRN 10/06/22 05/10/24 History Nitroglycerin Sl Tabs [Nitrostat] 0.4 mg SL Q5M PRN 10/06/22 05/10/24 History Fenofibrate [Lofibra] 160 mg PO DAILY 01/25/23 05/10/24 History Pregabalin [Lyrica] 150 mg PO BID 02/05/23 05/10/24 History carvediloL [Coreg] 25 mg PO BID 02/05/23 05/10/24 History Budesonide/Formoterol Fumarate 2 puff INHALATION RT-BID PRN 07/17/23 05/10/24 H istory [Symbicort 160-4.5 Mcg Inhaler] INSULIN LISPRO (For Pump) [humaLOG 0.01 units SQ-PUMP CONTINUOUS 07/17/23 05/10/24 History (For Pump)] Atorvastatin [Lipitor] 40 mg PO HS 12/11/23 05/10/24 History Magnesium Oxide [Mag-Ox] 400 mg PO BID 03/10/24 05/10/24 History ALPRAZolam [Xanax] 1 mg PO DAILY 03/28/24 05/10/24 History Cinacalcet [Sensipar] 30 mg PO MOTH 03/28/24 05/10/24 History Sodium Bicarbonate 325 mg PO BID 03/28/24 05/10/24 History amLODIPine [Norvasc] 10 mg PO DAILY 03/28/24 05/10/24 History ALPRAZolam [Xanax] 2 mg PO HS 05/04/24 05/10/24 History ARIPiprazole [Abilify] 10 mg PO HS 05/04/24 05/10/24 History Ondansetron Odt [Zofran ODT] 8 mg PO Q12HR 05/04/24 05/10/24 History hydrALAZINE HCL [Apresoline] 50 mg PO TID 30 Days #90 tab 05/06/24 05/10/24 Rx Allergies Allergy/AdvReac Type Severity Reaction Status Date / Time Fish Containing Products Allergy Anaphylaxis Verified 05/10/24 10:36 Iodinated Contrast Media Allergy Anaphylaxis Verified 05/10/24 10:36 [Iodinated Contrast Media - IV Dye] Sulfa (Sulfonamide Allergy Anaphylaxis Verified 05/10/24 10:36 Antibiotics) sulfamethoxazole Allergy Anaphylaxis Verified 05/10/24 10:36 [From ] tree nut [Nut] Allergy Anaphylaxis Verified 05/10/24 10:36 trimethoprim [From Septra] Allergy Anaphylaxis Verified 05/10/24 10:36 Physical Examination - Vital Signs Vital Signs: Vital Signs Temp Pulse Pulse Resp BP BP Pulse Ox 05/10/24 08:00 98.1 F 75 18 166/81 98 05/10/24 03:41 98.3 F 74 18 137/71 96 05/10/24 00:00 97.9 F 74 19 166/78 96 05/09/24 21:25 76 18 188/85 96 05/09/24 21:17 75 18 188/85 97 05/09/24 21:02 98.1 F 74 26 H 182/88 98 05/09/24 20:33 97.9 F 72 16 169/80 89 L Intake and Output 05/09/24 05/10/24 05/10/24 22:59 06:59 14:59 Output Total 500 Balance -500 Output: Urine 500 Other: Voiding Method External Catheter Weight 94.12 kg 86.5 kg General: The patient is well-nourished well-developed and in no acute distress. She is sitting on the edge of the bed. HEENT: Head is atraumatic, normocephalic. Fundus not visualized. There is no scleral icterus. Mucous membranes are moist. Neck: Supple without carotid bruits Heart: Regular rate and rhythm Lungs: Essentially clear to auscultation Extremities: There is mild edema of the ankles bilaterally, right greater than left Neurological examination Mental status: The patient is awake, alert and oriented x 3. Speech is clear. There is no dysarthria or aphasia. Patient is able to accurately repeat phrases and name objects. Cranial nerves: Pupils are equal, round and reactive at 3 mm. Visual li are full to confrontation. Extraocular movements are intact. There is no nystagmus. Facial sensation is intact. There is no facial asymmetry. Hearing is grossly intact. Uvula and palate are midline. Shoulder shrug is symmetric. Tongue protrudes midline. Motor: Strength (right/left): Branch Coordinator 1/5, triceps 3/5, biceps 3/5, quadriceps 4/5, ankle plantar flexors 3/5, ankle dorsiflexors 1/5. There is increased tone in the right upper extremity Sensation: There is decreased touch to the left upper extremity, right thigh and left foot. There is no extinction with double simultaneous stimulation. Coordination: Difficult to assess on the right secondary to weakness. Left [id number] testing is intact. Deep tendon reflexes: 3+/4+ throughout. Plantar responses are not assessed. Gait: Not assessed Results - Laboratory Findings CBC and BMP: 05/09/24 20:32 05/09/24 20:32 Abnormal Lab Findings: Abnormal Labs 05/09/24 05/09/24 05/09/24 20:31 20:32 20:32 WBC 13.1 H Neutrophils # 9.5 H Sodium 134 L BUN 31 H Creatinine 2.15 H Glucose 354 H POC Glucose (mg/dL) 361 H Alkaline Phosphatase 153 H Total Protein 5.4 L Albumin 3.3 L 05/09/24 05/10/24 05/10/24 23:00 01:49 06:07 WBC Neutrophils # Sodium BUN Creatinine Glucose POC Glucose (mg/dL) 395 H 432 H 447 H Alkaline Phosphatase Total Protein Albumin Assessment and Plan Assessment: 1. The patient is a 53-year-old female who presents with sudden onset of right- sided weakness. Likely the symptoms which are vastly resolved at this point, are secondary to transient ischemic attack. Exacerbation of MS would be less likely as the symptoms typically do not occur suddenly and do not resolve this quickly. The patient has a significant past medical history which markedly increases her risk for stroke 2. History of hypertension 3. History of factor V Leiden deficiency 4. History of previous stroke 5. History of hyperlipidemia 6. History of diabetes mellitus 7. History of coronary artery disease Plan: 1. Stroke order set has been placed 2. MRI of the brain has been ordered 3. Physical and Occupational Therapy evaluations 4. Consider rehab consultation for inpatient rehab placement 5. High intensity statin 6. Dual antiplatelet therapy for 21 days, then discontinue aspirin and continue Plavix monotherapy Thank you for allowing us to participate in the care of this patient Dr. Mccarty will assume neurologic coverage of this patient as of May 11, 2024 Time with Patient: Greater than 30 (60 minutes were spent caring for this patient today including, obtaining a history, examining the patient, reviewing imaging, chart documentation, labs, placing orders and creating this note)
[2024-05-10 17:04] LABS: Glucose,Whole Blood 452 mg/dL (70-110)
[2024-05-10] MEDS ORDERED: ONDANSETRON 4 MG/2 ML VIAL IVP PRN (17:08)
[2024-05-10] MEDS: SODIUM CHLORIDE 0.9% 1,000 ML IV SCH (17:25)
[2024-05-10 20:23] LABS: Glucose,Whole Blood 435 mg/dL (70-110)
[2024-05-10] MEDS: ATORVASTATIN 80 MG TAB PO SCH (20:38)
[2024-05-10] MEDS: ARIPiprazole 10 MG TAB PO SCH (20:38)
[2024-05-10] MEDS: ASPIRIN 81 MG PO SCH (20:39)
[2024-05-10] MEDS: INSULIN DETEMIR (LEVEMIR) 100 UNIT/ML SYR SQ SCH (20:39)
[2024-05-10] MEDS ORDERED: ATORVASTATIN 40 MG TAB PO SCH (21:00)
[2024-05-11 06:33] LABS: Glucose,Whole Blood 280 mg/dL (70-110)
[2024-05-11] MEDS: INSULIN ASPART (NovoLOG) 100 UNIT/ML VIAL SQ SCH (06:37)
[2024-05-11 07:23] LABS: ALT 13 U/L (4-34); AST 14 U/L (14-36); African American GFR (CKD) 29 (>60 ml/min/1.73 sqM); Alkaline Phosphatase 129 U/L (38-126); Anion Gap 4 mmol/L; Blood Urea Nitrogen 37 mg/dL (7-17); Calcium 10.1 mg/dL (8.4-10.2); Carbon Dioxide 24 mmol/L (22-30); Chloride 106 mmol/L (98-107); Glucose 280 mg/dL (74-99); Non-African American GFR(CKD) 25 (>60 ml/min/1.73 sqM); Potassium 4.8 mmol/L (3.5-5.1); Sodium 134 mmol/L (137-145); Total Bilirubin 0.3 mg/dL (0.2-1.3); Total Protein 5.1 g/dL (6.3-8.2)
[2024-05-11 07:35] LABS: Basophils % (A) 0 %; Eosinophils % (A) 0 %; HGB 12.6 gm/dL (11.4-16.0); Lymphocytes # (A) 1.9 k/uL (1.0-4.8); Lymphocytes % (A) 10 %; MCH 31.8 pg (25.0-35.0); MCHC 32.4 g/dL (31.0-37.0); MCV 98.2 fL (80.0-100.0); Mean Platelet Volume 9.8; Monocytes # (A) 0.5 k/uL (0-1.0); Monocytes % (A) 3 %; Neutrophils # (A) 15.8 k/uL (1.3-7.7); Neutrophils % (A) 86 %; Platelet Count 259 k/uL (150-450); RBC 3.97 m/uL (3.80-5.40); WBC 18.3 k/uL (3.8-10.6)
[2024-05-11] MEDS: ENOXAPARIN 30 MG/0.3 ML SYRINGE SQ SCH (07:45)
[2024-05-11] MEDS: CLOPIDOGREL 75 MG TAB PO SCH (07:46)
[2024-05-11 08:19] LABS: RBC Morphology Normal
[2024-05-11] MEDS: hydrALAZINE HCL 25 MG TAB PO STA (10:25)
[2024-05-11 11:49] LABS: Glucose,Whole Blood 511 mg/dL (70-110)
--- NOTE | 2024-05-11 12:18 | P.NPCON ---
History of Present Illness - Reason for Consult acute renal failure, chronic renal failure - History of Present Illness Reason for consultation: Acute kidney injury on chronic kidney disease History of present illness: Patient is a 53-year-old female seen in renal consultation for chronic kidney disease. Patient has chronic kidney disease stage IV with baseline creatinine 1.8-2.2. Etiology is biopsy-proven diabetic kidney disease. GFR is near baseline. Patient came to the hospital due to right-sided numbness. Patient states she developed tingling in her head which then radiated down through her right side. She currently feels better. Patient did receive IV contrast dye on May 09, [address] angiogram of the head and neck which showed no acute changes. Blood pressures have been on the higher side. Denies gross hematuria or dysuria. No vomiting or diarrhea. Denies use of nonsteroidals. Patient does have history of coronary disease with multiple stents. Patient has longstanding history of diabetes. Denies use of nonsteroidals. Denies family history of renal disease. Denies personal history of malignancy. Denies taking any calcium or vitamin D supplementation. Patient also has history of hypercalcemia. She is maintained on Sensipar outpatient. Vital signs are stable. General: No acute distress. HEENT: Head exam is unremarkable. LUNGS: No audible rhonchi or wheezes. HEART: Rate and Rhythm are regular. ABDOMEN: Nontender. EXTREMITITES: No edema. 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 HAD [place] 10/27/23 Last Myocardial Infarction Date:: LAST ONE 10/27/23 History of Any Multi-Drug Resistant Organisms: None Reported Past Surgical History: Section, Cholecystectomy, Heart Catheterization With Stent, Hysterectomy, Tubal Ligation, Uterine Ablation Additional Past Surgical History / Comment(s): vein stripping right leg, radio frequency ablation of right back-02/22/2015, four stents on 04/03/16 and one on march 05, ovaries removed, colonscopy- polyp removal Past Anesthesia/Blood Transfusion Reactions: Motion Sickness Additional Past Anesthesia/Blood Transfusion Reaction / Comment(s): mild claustrophobia Date of Last Stent Placement:: 04/03/16 Past Psychological History: Anxiety, Depression Additional Psychological History / Comment(s): Pt resides with her spouse. She is mostly in her wheelchair. She has a walker and cane. She has a dexcom. Her spouse assists her with her medication organization. Spouse also drives pt. Smoking Status: Former smoker Past Alcohol Use History: None Reported Additional Past Alcohol Use History / Comment(s): Pt started smoking in 1988 and quit recently Past Drug Use History: None Reported - Past Family History Father Family Medical History: Congestive Heart Failure (CHF), Coronary Artery Disease (CAD), Diabetes Mellitus Mother Family Medical History: Cancer, COPD, Hypertension, Respiratory Disorder Additional Family Medical History / Comment(s): emphysema, colon CA Medications and Allergies Home Medications Medication Instructions Recorded Confirmed Type Aspirin [Adult Low Dose Aspirin EC] 81 mg PO HS 11/26/17 05/10/24 History DULoxetine HCL [Cymbalta] 60 mg PO DAILY 08/25/18 05/10/24 History Isosorbide Mononitrate ER [Imdur] 60 mg PO DAILY 09/08/18 05/10/24 History Empagliflozin [Jardiance] 10 mg PO DAILY 10/06/22 05/10/24 History Famotidine 20 mg PO BID PRN 10/06/22 05/10/24 History Nitroglycerin Sl Tabs [Nitrostat] 0.4 mg SL Q5M PRN 10/06/22 05/10/24 History Fenofibrate [Lofibra] 160 mg PO DAILY 01/25/23 05/10/24 History Pregabalin [Lyrica] 150 mg PO BID 02/05/23 05/10/24 History carvediloL [Coreg] 25 mg PO BID 02/05/23 05/10/24 History Budesonide/Formoterol Fumarate 2 puff INHALATION RT-BID PRN 07/17/23 05/10/24 History [Symbicort 160-4.5 Mcg Inhaler] INSULIN LISPRO (For Pump) [humaLOG 0.01 units SQ-PUMP CONTINUOUS 07/17/23 05/10/24 History (For Pump)] Atorvastatin [Lipitor] 40 mg PO HS 12/11/23 05/10/24 History Magnesium Oxide [Mag-Ox] 400 mg PO BID 03/10/24 05/10/24 History ALPRAZolam [Xanax] 1 mg PO DAILY 03/28/24 05/10/24 History Cinacalcet [Sensipar] 30 mg PO MOTH 03/28/24 05/10/24 History Sodium Bicarbonate 325 mg PO BID 03/28/24 05/10/24 History amLODIPine [Norvasc] 10 mg PO DAILY 03/28/24 05/10/24 History ALPRAZolam [Xanax] 2 mg PO HS 05/04/24 05/10/24 History ARIPiprazole [Abilify] 10 mg PO HS 05/04/24 05/10/24 History Ondansetron Odt [Zofran ODT] 8 mg PO Q12HR 05/04/24 05/10/24 History hydrALAZINE HCL [Apresoline] 50 mg PO TID 30 Days #90 tab 05/06/24 05/10/24 Rx Allergies Allergy/AdvReac Type Severity Reaction Status Date / Time Fish Containing Products Allergy Anaphylaxis Verified 05/10/24 10:36 Iodinated Contrast Media Allergy Anaphylaxis Verified 05/10/24 10:36 [Iodinated Contrast Media - IV Dye] Sulfa (Sulfonamide Allergy Anaphylaxis Verified 05/10/24 10:36 Antibiotics) sulfamethoxazole Allergy Anaphylaxis Verified 05/10/24 10:36 [From Junra] tree nut [Nut] Allergy Anaphylaxis Verified 05/10/24 10:36 trimethoprim [From Junra] Allergy Anaphylaxis Verified 05/10/24 10:36 Physical Exam Vitals: Vital Signs Temp Pulse Resp BP Pulse Ox 05/11/24 11:02 66 16 164/75 94 L 05/11/24 07:35 97.8 F 69 16 177/76 93 L 05/11/24 04:00 97.7 F 18 171/71 96 05/11/24 01:33 18 05/11/24 00:00 98.1 F 66 16 144/77 95 05/10/24 19:58 97.9 F 69 18 138/71 95 05/10/24 19:57 18 05/10/24 16:00 79 18 160/81 95 05/10/24 13:02 18 Intake and Output 05/10/24 05/11/24 05/11/24 22:59 06:59 14:59 Intake Total 118 Balance 118 Intake: Oral 118 Other: Voiding Method External Catheter External Catheter Bedside Commode # Voids 1 Weight 104.9 kg Results - Lab Results Most recent lab results Calcium 10.1 mg/dL (8.4-10.2) 05/11/24 06:59 05/11/24 06:59 05/11/24 06:59 Assessment and Plan Plan: Assessment: 1. Chronic kidney disease stage IV baseline creatinine 1.8-2.2 secondary to biopsy-proven diabetic kidney disease. 2. Hypercalcemia. Workup from February 2024 showed PTH of 154, vitamin D level of 6.3 and a Calcitrol level of 12. DORA level was slightly elevated at 66. No monoclonality noted on serum immunofixation. Parathyroid nuclear scan showed no evidence of parathyroid adenoma. Calcium level 10.1 today with albumin of 3. Corrected calcium near 10.9. 3. Right-sided weakness. Possibly TIA. Neurology following. 4. History of MS. 5. Diabetes mellitus. 6. Coronary artery disease multiple stents. 7. Hypertension with chronic kidney disease. Plan: Hep-Lock IV fluids. Encouraged oral intake. Dose of hydralazine increased this morning. Also on SGLT2 inhibitor. Resume Sensipar - 30 mg three times a week. Avoid nephrotoxins. Continue to monitor renal function and urine output. Patient has been referred to pulmonology outpatient due to elevated DORA level and to hematology oncology due to mildly elevated light chains. Thank you for the consultation. I will continue to follow the patient with you during her hospital stay.
[2024-05-11] MEDS: CINACALCET 30 MG TAB PO SCH (12:32)
--- NOTE | 2024-05-11 12:44 | P.CRDCN ---
History of Present Illness Consult date: 05/11/24 Reason for Consult (text): CVA History of present illness: This is a 53-year-old female patient of Dr. 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 We have been asked to evaluate the patient for CVA. Patient states that she presented to the hospital as her face was feeling funny on the right side and then the sensation seem to go down her body. Patient denies having any chest pain. She has been seen by neurology and started on Plavix and continued on aspirin and statin. Blood pressure 177/76, heart rate 69, afebrile, pulse ox 93% on room air. EKG: Sinus rhythm with a right bundle branch block Chest x-ray: No acute process CTA of the head and neck was negative CT of the brain revealed age-related atrophy and chronic small vessel ischemic change without acute intracranial process. Laboratory studies: WBC 18.3, hemoglobin 12.6. Sodium 134, potassium 4.8, BUN 37 creatinine 2.22. Troponin negative x 1. Triglycerides 254, cholesterol 270, LDL 173, HDL 46. Home cardiac medications: Amlodipine 10 mg daily, atorvastatin 40 mg daily, aspirin 81 mg daily, Coreg 25 mg twice daily, Jardiance 10 mg daily, fenofibrate 160 mg daily, hydralazine 50 mg 3 times daily, Imdur 60 mg daily, magnesium oxi de 400 mg twice daily, Nitrostat as needed. Cardiac catheterization history: 12/11/2023 revealed 60% mid RCA stenosis involving the previous stented segment. Patent stents within the RCA, LAD diagonal with moderate nonobstructive disease involving the LAD and the ostial portion of the diagonal branch. Event monitor performed 11/21/2022 revealed sinus rhythm 79 bpm heart rate varied between 64 and 92. No episodes of tachycardia or bradycardia. Lexiscan Cardiolite stress test performed on 02/07/2022 revealed no stress- induced ischemia. EF 45%. Echocardiogram performed in the office 06/06/2015 revealed normal LV size and function. Mild concentric hypertrophy. JUANITA performed 02/2015 revealed no intracardiac thrombus, no shunting across intra-atrial septum. 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 Review Of Systems: At the time of my exam: CONSTITUTIONAL: Denies fever or chills. HEENT: Denies blurred vision, vision changes, or eye pain. Denies hemoptysis CARDIOVASCULAR: Denies chest pain. Denies orthopnea. Denies PND. Denies palpitations RESPIRATORY: Denies shortness of breath. GASTROINTESTINAL: Denies abdominal pain. Denies nausea or vomiting. HEMATOLOGIC: Denies bleeding disorders. GENITOURINARY: Denies any blood in urine. SKIN: Denies puritis. Denies rash. Physical examination: Gen: This is a obese 53-year-old female in no acute distress VS: reviewed HEENT: Head is atraumatic, normocephalic. Pupils equal, round. Sclerae is anic teric. NECK: Supple. No JVD. LUNGS: Clear to auscultation. No wheezes or rhonchi. No intercostal retractions. HEART: Regular rate and rhythm. No murmur. ABDOMEN: Soft No tenderness. EXTREMITIES: No pedal edema. No calf tenderness. NEUROLOGICAL: Patient is awake, alert and oriented x3. Assessment: TIA Diabetes mellitus type 2 Hypertension uncontrolled Dyslipidemia History of tobacco use and dependence Plan: Continue patient's home cardiac medications Increase hydralazine to 75 mg 3 times daily Obtain 2-D echocardiogram and Doppler study with bubble study Further recommendations to follow based upon clinical course Thank you kindly for this consultation. Nurse practitioner note has been reviewed, I agree with documented findings and plan of care. Patient was seen and examined. 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 HAD [place] 10/27/23 Last Myocardial Infarction Date:: LAST ONE 10/27/23 History of Any Multi-Drug Resistant Organisms: None Reported Past Surgical History: Section, Cholecystectomy, Heart Catheterization With Stent, Hysterectomy, Tubal Ligation, Uterine Ablation Additional Past Surgical History / Comment(s): vein stripping right leg, radio frequency ablation of right back-02/22/2015, four stents on 04/03/16 and one on march 05, ovaries removed, colonscopy- polyp removal Past Anesthesia/Blood Transfusion Reactions: Motion Sickness Additional Past Anesthesia/Blood Transfusion Reaction / Comment(s): mild claustrophobia Date of Last Stent Placement:: 04/03/16 Past Psychological History: Anxiety, Depression Additional Psychological History / Comment(s): Pt resides with her spouse. She is mostly in her wheelchair. She has a walker and cane. She has a dexcom. Her spouse assists her with her medication organization. Spouse also drives pt. Smoking Status: Former smoker Past Alcohol Use History: None Reported Additional Past Alcohol Use History / Comment(s): Pt started smoking in 1988 and quit recently Past Drug Use History: None Reported - Past Family History Father Family Medical History: Congestive Heart Failure (CHF), Coronary Artery Disease (CAD), Diabetes Mellitus Mother Family Medical History: Cancer, COPD, Hypertension, Respiratory Disorder Additional Family Medical History / Comment(s): emphysema, colon CA Medications and Allergies Home Medications Medication Instructions Recorded Confirmed Type Aspirin [Adult Low Dose Aspirin EC] 81 mg PO HS 11/26/17 05/10/24 History DULoxetine HCL [Cymbalta] 60 mg PO DAILY 08/25/18 05/10/24 History Isosorbide Mononitrate ER [Imdur] 60 mg PO DAILY 09/08/18 05/10/24 History Empagliflozin [Jardiance] 10 mg PO DAILY 10/06/22 05/10/24 History Famotidine 20 mg PO BID PRN 10/06/22 05/10/24 History Nitroglycerin Sl Tabs [Nitrostat] 0.4 mg SL Q5M PRN 10/06/22 05/10/24 History Fenofibrate [Lofibra] 160 mg PO DAILY 01/25/23 05/10/24 History Pregabalin [Lyrica] 150 mg PO BID 02/05/23 05/10/24 History carvediloL [Coreg] 25 mg PO BID 02/05/23 05/10/24 History Budesonide/Formoterol Fumarate 2 puff INHALATION RT-BID PRN 07/17/23 05/10/24 History [Symbicort 160-4.5 Mcg Inhaler] INSULIN LISPRO (For Pump) [humaLOG 0.01 units SQ-PUMP CONTINUOUS 07/17/23 05/10/24 History (For Pump)] Atorvastatin [Lipitor] 40 mg PO HS 12/11/23 05/10/24 History Magnesium Oxide [Mag-Ox] 400 mg PO BID 03/10/24 05/10/24 History ALPRAZolam [Xanax] 1 mg PO DAILY 03/28/24 05/10/24 History Cinacalcet [Sensipar] 30 mg PO MOTH 03/28/24 05/10/24 History Sodium Bicarbonate 325 mg PO BID 03/28/24 05/10/24 History amLODIPine [Norvasc] 10 mg PO DAILY 03/28/24 05/10/24 History ALPRAZolam [Xanax] 2 mg PO HS 05/04/24 05/10/24 History ARIPiprazole [Abilify] 10 mg PO HS 05/04/24 05/10/24 History Ondansetron Odt [Zofran ODT] 8 mg PO Q12HR 05/04/24 05/10/24 History hydrALAZINE HCL [Apresoline] 50 mg PO TID 30 Days #90 tab 05/06/24 05/10/24 Rx Allergies Allergy/AdvReac Type Severity Reaction Status Date / Time Fish Containing Products Allergy Anaphylaxis Verified 05/10/24 10:36 Iodinated Contrast Media Allergy Anaphylaxis Verified 05/10/24 10:36 [Iodinated Contrast Media - IV Dye] Sulfa (Sulfonamide Allergy Anaphylaxis Verified 05/10/24 10:36 Antibiotics) sulfamethoxazole Allergy Anaphylaxis Verified 05/10/24 10:36 [From Junra] tree nut [Nut] Allergy Anaphylaxis Verified 05/10/24 10:36 trimethoprim [From Junra] Allergy Anaphylaxis Verified 05/10/24 10:36 Physical Exam Vitals: Vital Signs Temp Pulse Resp BP Pulse Ox 05/11/24 07:35 97.8 F 69 16 177/76 93 L 05/11/24 04:00 97.7 F 18 171/71 96 05/11/24 01:33 18 05/11/24 00:00 98.1 F 66 16 144/77 95 05/10/24 19:58 97.9 F 69 18 138/71 95 05/10/24 19:57 18 05/10/24 16:00 79 18 160/81 95 05/10/24 13:02 18 05/10/24 12:00 97.9 F 74 18 149/77 97 Intake and Output 05/10/24 05/11/24 05/11/24 22:59 06:59 14:59 Intake Total 118 Balance 118 Intake: Oral 118 Other: Voiding Method External Catheter External Catheter Bedside Commode Weight 104.9 kg Results 05/11/24 06:59 05/11/24 06:59 Cardiac Enzymes 05/11/24 Range/Units 06:59 AST 14 (14-36) U/L Lipids 05/10/24 Range/Units 06:53 Triglycerides 254.00 H (0.00-149.00) mg/dL Cholesterol 270.00 H (0.00-200.00) mg/dL HDL Cholesterol 46.10 (40.00-60.00) mg/dL Cholesterol/HDL Ratio 5.86 Ratio CBC 05/11/24 Range/Units 06:59 WBC 18.3 H (3.8-10.6) k/uL RBC 3.97 (3.80-5.40) m/uL Hgb 12.6 (11.4-16.0) gm/dL Hct 39.0 (34.0-46.0) % Plt Count 259 (150-450) k/uL Comprehensive Metabolic Panel 05/11/24 Range/Units 06:59 Sodium 134 L (137-145) mmol/L Potassium 4.8 (3.5-5.1) mmol/L Chloride 106 (98-107) mmol/L Carbon Dioxide 24 (22-30) mmol/L BUN 37 H (7-17) mg/dL Creatinine 2.22 H (0.52-1.04) mg/dL Glucose 280 H (74-99) mg/dL Calcium 10.1 (8.4-10.2) mg/dL AST 14 (14-36) U/L ALT 13 (4-34) U/L Alkaline Phosphatase 129 H (38-126) U/L Total Protein 5.1 L (6.3-8.2) g/dL Albumin 3.0 L (3.5-5.0) g/dL Current Medications Generic Name Dose Route Start Last Admin Trade Name Gianni PRN Reason Stop Dose Admin Alprazolam 1 mg 05/10/24 09:00 05/11/24 07:46 Alprazolam 1 Mg Tab PO 1 mg DAILY SARAHY Administration Amlodipine Besylate 10 mg 05/10/24 09:00 05/11/24 07:45 Amlodipine 10 Mg Tab PO 10 mg DAILY SARAHY Administration Aripiprazole 10 mg 05/10/24 21:00 05/10/24 20:38 Aripiprazole 10 Mg Tab PO 10 mg HS SARAHY Administration Aspirin 81 mg 05/10/24 21:00 05/10/24 20:39 Aspirin 81 Mg PO 81 mg HS SARAHY Administration Atorvastatin Calcium 80 mg 05/10/24 21:00 05/10/24 20:38 Atorvastatin 80 Mg Tab PO 80 mg HS SARAHY Administration Budesonide/Formoterol Fumarate 2 puff 05/09/24 23:24 Symbicort 160-4.5 Mcg Inhaler INHALATION RT-BID PRN COPD Carvedilol 25 mg 05/10/24 07:30 05/11/24 06:37 Carvedilol 12.5 Mg Tab PO 25 mg BID-W/MEALS SARAHY Administration Clopidogrel Bisulfate 75 mg 05/11/24 09:00 05/11/24 07:46 Clopidogrel 75 Mg Tab PO 75 mg DAILY SARAHY Administration Dapagliflozin 5 mg 05/10/24 09:00 05/11/24 07:46 Dapagliflozin Propanediol 5 Mg Tablet PO 5 mg DAILY SARAHY Administration Dextrose/Water 25 ml 05/09/24 23:27 Dextrose 50% Syringe 50 Ml IVP PER PROTOCOL PRN Hypoglycemia Protocol Dextrose/Water 50 ml 05/09/24 23:27 Dextrose 50% Syringe 50 Ml IVP PER PROTOCOL PRN Hypoglycemia Protocol Duloxetine HCl 60 mg 05/10/24 09:00 05/11/24 07:45 Duloxetine Hcl 60 Mg Capsule.Dr PO 60 mg DAILY SARAHY Administration Enoxaparin Sodium 30 mg 05/11/24 09:00 05/11/24 07:45 Enoxaparin 30 Mg/0.3 Ml Syringe SQ 30 mg DAILY SARAHY Administration Famotidine 20 mg 05/09/24 23:24 Famotidine 20 Mg Tab PO BID PRN acid reflux Fenofibrate 160 mg 05/10/24 09:00 05/11/24 07:46 Fenofibrate 160 Mg Tab PO 160 mg DAILY SARAHY Administration Hydralazine HCl 50 mg 05/10/24 09:00 05/11/24 07:45 Hydralazine Hcl 50 Mg Tab PO 50 mg TID SARAHY Administration Hydralazine HCl 10 mg 05/09/24 23:28 Hydralazine Hcl 20 Mg/Ml 1 Ml Vial IVP Q6HR PRN Blood Pressure - High Sodium Chloride 1,000 mls @ 50 mls/hr 05/10/24 14:45 05/11/24 07:46 Saline 0.9% IV 50 mls/hr .Q20H SARAHY Administration Insulin Aspart 0 unit 05/09/24 23:45 05/11/24 06:38 Insulin Aspart (Novolog) 100 Unit/Ml Vial SQ 9 unit ACHS SARAHY Administration Protocol Insulin Detemir 20 unit 05/10/24 21:00 05/10/24 20:39 Insulin Detemir (Levemir) 100 Unit/Ml Syr SQ 20 unit HS SARAHY Administration Isosorbide Mononitrate 60 mg 05/10/24 09:00 05/11/24 07:45 Isosorbide Mononitrate Er 60 Mg Tab.Er.24h PO 60 mg DAILY SARAHY Administration Magnesium Oxide 400 mg 05/10/24 09:00 05/11/24 07:46 Magnesium Oxide 400 Mg Tab PO 400 mg BID SARAHY Administration Ondansetron HCl 4 mg 05/10/24 17:08 Ondansetron 4 Mg/2 Ml Vial IVP Q6HR PRN Nausea And Vomiting Pregabalin 150 mg 05/10/24 09:00 05/11/24 07:45 Pregabalin 75 Mg Cap PO 150 mg BID SARAHY Administration Sodium Bicarbonate 325 mg 05/10/24 09:00 05/11/24 07:46 Sodium Bicarbonate Tab 650 Mg Tab PO 325 mg BID SARAHY Administration Intake and Output 05/10/24 05/11/24 05/11/24 22:59 06:59 14:59 Intake Total 118 Balance 118 Intake: Oral 118 Other: Voiding Method External Catheter External Catheter Bedside Commode Weight 104.9 kg 05/11/24 06:59 05/11/24 06:59
[2024-05-11 14:48] VITALS: BMI 37.3
[2024-05-11] MEDS: hydrALAZINE HCL 25 MG TAB PO SCH (15:13)
[2024-05-11 16:42] LABS: Glucose,Whole Blood 409 mg/dL (70-110)
--- NOTE | 2024-05-11 17:03 | P.PN ---
Subjective Progress Note Date: 05/11/24 This is a 53-year-old female patient of Dr. Lima who presented with concerns of right sided numbness. Patient reports that she was just watching TV yesterday when she became very weak and had tingling on her right arm and leg. Patient denies slurred speech or loss of consciousness. Patient does have a history of previous CVA with significant right-sided weakness. Patient reports that symptoms are improving but she still has some numbness to that right side patient was recently here and treated for non-STEMI. Patient reports she has a significant history of coronary artery disease with multiple stents, stroke, chronic kidney disease, diabetes mellitus on insulin pump, hypertension, hyperl ipidemia, peripheral neuropathy, peripheral artery disease, ovarian cancer and ongoing tobacco use. Head CT was completed showing age-related atrophic and chronic small vessel ischemic changes without acute intracranial process seen at this time. CTA performed showing no significant abnormality. Chest x-ray completed showing mild diffuse airspace opacities in both lungs with central considered may represent atelectasis and/or pneumonia versus mild pulmonary edema. Patient denies any respiratory symptoms will order 2 view chest x-ray to follow-up. At this time cardiology and neurology services will be consulted PT OT services consulted. Current vital signs Temp 98.1, heart rate 75, resp iratory rate 18, blood pressure 137/71 with a pulse ox of 98% on 2 L On 05/11/2024 patient was seen and examined on the medical floor she is alert and oriented x 3 in no apparent distress she is still complaining of right-sided weakness and difficulty ambulating, otherwise she denies any complaints there is no fever or chills no headache or dizziness no chest pain no shortness of breath no cough no nausea or vomiting no abdominal pain no diarrhea and no urinary symptoms. Today white blood count is elevated up to 18,000, no clear source of infection is identified, chest x-ray is within normal limits, will obtain urine analysis. At this time we are still awaiting MRI of the brain and further recommendation from neurology, continue with physical therapy and Occupational Therapy, a consult was placed for inpatient rehab for potential admission. Objective - Vital Signs Vital signs: Vital Signs Temp 98.0 F 05/11/24 15:11 Pulse 69 05/11/24 15:11 Resp 16 05/11/24 15:11 BP 146/64 05/11/24 15:11 Pulse Ox 93 L 05/11/24 15:11 FiO2 Intake & Output 05/10/24 05/11/24 05/11/24 18:59 06:59 18:59 Intake Total 118 478 Output Total 500 Balance -382 478 Weight 104.9 kg 104.9 kg Intake: Oral 118 478 Output: Urine 500 Other: Voiding Method External Catheter External Catheter Bedside Commode # Voids 1 - Exam Head normocephalic Neck supple Lungs clear to auscultation bilaterally no wheezing or crackles Heart regular rate and rhythm S1-S2, no rub or gallop Abdomen is soft nontender nondistended positive bowel sounds no hepatosplenomegaly Extremities no edema Neuro alert and orientated to 3. Patient has chronic right arm and right leg weakness secondary to previous stroke - Labs CBC & Chem 7: 05/11/24 06:59 05/11/24 06:59 Labs: Abnormal Lab Results - Last 24 Hours (Table) 05/10/24 05/10/24 05/11/24 Range/Units 17:03 20:16 06:28 WBC (3.8-10.6) k/uL Neutrophils # (1.3-7.7) k/uL Sodium (137-145) mmol/L BUN (7-17) mg/dL Creatinine (0.52-1.04) mg/dL Glucose (74-99) mg/dL POC Glucose (mg/dL) 452 H 435 H 280 H (70-110) mg/dL Alkaline Phosphatase (38-126) U/L Total Protein (6.3-8.2) g/dL Albumin (3.5-5.0) g/dL 05/11/24 05/11/24 05/11/24 Range/Units 06:59 06:59 11:47 WBC 18.3 H (3.8-10.6) k/uL Neutrophils # 15.8 H (1.3-7.7) k/uL Sodium 134 L (137-145) mmol/L BUN 37 H (7-17) mg/dL Creatinine 2.22 H (0.52-1.04) mg/dL Glucose 280 H (74-99) mg/dL POC Glucose (mg/dL) 511 H* (70-110) mg/dL Alkaline Phosphatase 129 H (38-126) U/L Total Protein 5.1 L (6.3-8.2) g/dL Albumin 3.0 L (3.5-5.0) g/dL Assessment and Plan Assessment: 1. Right sided numbness and tingling possible CVA 2. Recent admission for non-STEMI 3. History of CVA with right-sided weakness in 2017 4. History of MS patient reports he follows with neurology services 5. History of significant coronary artery disease with multiple stent placement 6. History of diabetes mellitus 7. History of essential hypertension 8. History of hyperlipidemia 9. History of peripheral neuropathy 10. History of peripheral arterial disease 11. History of ovarian cancer 12. History of bipolar disorder followed by psychiatry DVT prophylaxis Lovenox. GI prophylaxis Protonix Neurology and cardiology services consulted Repeat labs ordered PT OT services consulted
--- NOTE | 2024-05-11 17:53 | P.PN ---
Subjective Progress Note Date: 05/11/24 Patient was initially seen by Dr. Cyr. Please refer to her note for details. Patient is a 53-year-old female came for TIA versus CVA. Patient states that she was watching TV, when her face bit felt funny, and she could not move her right arm. There was sudden onset of right-sided weakness/numbness. Symptoms lasted about 4 hours. Patient has history of factor V Leiden, multiple sclerosis, previous strokes. Objective - Vital Signs Vital signs: Vital Signs Temp 98.0 F 05/11/24 15:11 Pulse 69 05/11/24 15:11 Resp 16 05/11/24 15:11 BP 146/64 05/11/24 15:11 Pulse Ox 93 L 05/11/24 15:11 FiO2 Intake & Output 05/10/24 05/11/24 05/11/24 18:59 06:59 18:59 Intake Total 118 478 Output Total 500 Balance -382 478 Weight 104.9 kg 104.9 kg Intake: Oral 118 478 Output: Urine 500 Other: Voiding Method External Catheter External Catheter Bedside Commode # Voids 1 - Exam Patient's mental status, speech and language functions are normal. Cranial nerves are normal. Visual li are full, face is symmetric and tongue protrudes midline. Patient has spasticity of the right arm and right leg, which is chronic. - Labs CBC & Chem 7: 05/11/24 06:59 05/11/24 06:59 Labs: Abnormal Lab Results - Last 24 Hours (Table) 05/10/24 05/11/24 05/11/24 Range/Units 20:16 06:28 06:59 WBC 18.3 H (3.8-10.6) k/uL Neutrophils # 15.8 H (1.3-7.7) k/uL Sodium (137-145) mmol/L BUN (7-17) mg/dL Creatinine (0.52-1.04) mg/dL Glucose (74-99) mg/dL POC Glucose (mg/dL) 435 H 280 H (70-110) mg/dL Alkaline Phosphatase (38-126) U/L Total Protein (6.3-8.2) g/dL Albumin (3.5-5.0) g/dL 07/15/24 07/15/24 07/15/24 Range/Units 06:59 11:47 16:40 WBC (3.8-10.6) k/uL Neutrophils # (1.3-7.7) k/uL Sodium 134 L (137-145) mmol/L BUN 37 H (7-17) mg/dL Creatinine 2.22 H (0.52-1.04) mg/dL Glucose 280 H (74-99) mg/dL POC Glucose (mg/dL) 511 H* 409 H (70-110) mg/dL Alkaline Phosphatase 129 H (38-126) U/L Total Protein 5.1 L (6.3-8.2) g/dL Albumin 3.0 L (3.5-5.0) g/dL Assessment and Plan Assessment: 1. The patient is a 53-year-old female who presents with sudden onset of right- sided weakness. Likely the symptoms which are vastly resolved at this point, are secondary to transient ischemic attack. Exacerbation of MS would be less likely as the symptoms typically do not occur suddenly and do not resolve this quickly. The patient has a significant past medical history which markedly increases her risk for stroke 2. History of hypertension 3. History of factor V Leiden deficiency 4. History of previous stroke 5. History of hyperlipidemia 6. History of diabetes mellitus 7. History of coronary artery disease Plan: 1. Stroke order set has been placed. All stroke workup still pending. 2. MRI of the brain has been ordered 3. Physical and Occupational Therapy evaluations 4. Consider rehab consultation for inpatient rehab placement 5. High intensity statin 6. Dual antiplatelet therapy for 21 days, then discontinue aspirin and continue Plavix monotherapy, as per recommendation from Dr. Cry 7. Dr. Joni Figueredo to resume neurology service from the morning.
[2024-05-11 20:12] LABS: Glucose,Whole Blood 366 mg/dL (70-110)
[2024-05-11] MEDS: INSULIN DETEMIR (LEVEMIR) 100 UNIT/ML SYR SQ SCH (20:51)
[2024-05-12 04:32] VITALS: RESP 16
[2024-05-12 05:44] LABS: Glucose,Whole Blood 201 mg/dL (70-110)
[2024-05-12 06:12] LABS: Appearance,Urine Cloudy (Clear); Bacteria,Urine Many /hpf; Bilirubin,Urine Negative (Negative); Blood,Urine Negative (Negative); Color,Urine Colorless; Glucose,Urine (UA) 4+ (Negative); Hyaline Casts,Urine 5 /lpf (0-2); Ketones,Urine Negative (Negative); Leukocyte Esterase,Urine Large (Negative); Mucus,Urine Rare /hpf; Nitrite,Urine Negative (Negative); Protein,Urine 3+ (Negative); RBC,Urine 4 /hpf (0-5); Specific Gravity,Urine 1.018 (1.001-1.035); Squamous Epithelial Cell,Urine 2 /hpf (0-4); Urobilinogen,Urine <2.0 mg/dL (<2.0); WBC,Urine >182 /hpf (0-5)
[2024-05-12 08:49] LABS: Basophils # (A) 0.1 k/uL (0-0.2); Basophils % (A) 1 %; Eosinophils # (A) 0.2 k/uL (0-0.7); Eosinophils % (A) 1 %; HCT 41.7 % (34.0-46.0); HGB 13.1 gm/dL (11.4-16.0); Lymphocytes # (A) 2.9 k/uL (1.0-4.8); Lymphocytes % (A) 19 %; MCH 31.3 pg (25.0-35.0); MCHC 31.3 g/dL (31.0-37.0); MCV 99.9 fL (80.0-100.0); Macrocytosis Slight; Mean Platelet Volume 10.1; Monocytes # (A) 0.7 k/uL (0-1.0); Monocytes % (A) 5 %; Neutrophils # (A) 11.3 k/uL (1.3-7.7); Neutrophils % (A) 73 %; Platelet Count 260 k/uL (150-450); RBC 4.18 m/uL (3.80-5.40); RDW 14.1 % (11.5-15.5); WBC 15.4 k/uL (3.8-10.6)
[2024-05-12 09:13] LABS: ALT 13 U/L (4-34); AST 19 U/L (14-36); African American GFR (CKD) 32 (>60 ml/min/1.73 sqM); Albumin 3.2 g/dL (3.5-5.0); Alkaline Phosphatase 115 U/L (38-126); Anion Gap 7 mmol/L; Blood Urea Nitrogen 41 mg/dL (7-17); Calcium 9.3 mg/dL (8.4-10.2); Carbon Dioxide 22 mmol/L (22-30); Chloride 108 mmol/L (98-107); Glucose 148 mg/dL (74-99); Non-African American GFR(CKD) 28 (>60 ml/min/1.73 sqM); Potassium 4.6 mmol/L (3.5-5.1); Sodium 137 mmol/L (137-145); Total Bilirubin 0.4 mg/dL (0.2-1.3); Total Protein 5.5 g/dL (6.3-8.2)
[2024-05-12] MEDS: LORazepam 2 MG/ML INJ IV STA (09:15)
--- NOTE | 2024-05-12 10:49 | MR ---
EXAMINATION TYPE: MR brain wo con DATE OF EXAM: 05/12/2024 COMPARISON: 06/27/2017 HISTORY: Right sided weakness/numbness, CVA. CONTRAST: Performed utilizing 0 mL intravenous Gadavist gadolinium contrast. TECHNIQUE: Multiplanar, multiecho imaging on a 3.0 Kat magnet is performed through the brain. Stud y is performed within 24 hours of arrival to the hospital. The craniovertebral junction is normal. The pituitary is normal. Optic chiasm Diffusion-weighted imaging is performed. No abnormal hyperintensity is present to suggest an acute i ntracranial infarct or acute ischemic change. There is a large white matter change within the left centrum semiovale extending towards the posterio r basal ganglia and thalamus. Multiple periventricular and deep white matter changes are present grea ter on the left. Differential diagnosis could include microvascular ischemic change, multiple scleros is, vasculitis. Mild ex vacuo effect lateral ventricle Ventricles and sulci are mildly diffusely prominent for the patient age. There is thick mucosal thickening within the left sphenoid sinus. Remaining paranasal sinuses and mas toid air cells are clear IMPRESSION: 1. Diffuse periventricular white matter ischemic-type changes with some mild atrophy. 2. No acute intracranial process radiographically apparent. Follow-up can be performed as clinically indicated
[2024-05-12 11:52] LABS: Glucose,Whole Blood 215 mg/dL (70-110)
--- NOTE | 2024-05-12 13:05 | P.PN ---
Subjective Patient is seen in follow-up for chronic kidney disease. Renal function stable. No active complaints. Oral intake fair. Vital signs are stable. General: No acute distress. HEENT: Head exam is unremarkable. LUNGS: No audible rhonchi or wheezes. HEART: Rate and Rhythm are regular. ABDOMEN: Nontender. EXTREMITITES: No edema. Objective - Vital Signs Vital signs: Vital Signs Temp 97.7 F 05/12/24 07:32 Pulse 69 05/12/24 11:59 Resp 16 05/12/24 11:59 BP 150/70 05/12/24 11:59 Pulse Ox 93 L 05/12/24 11:59 FiO2 Intake & Output 05/11/24 05/12/24 05/12/24 18:59 06:59 18:59 Intake Total 596 118 Output Total 700 Balance 596 -700 118 Weight 104.9 kg 105.4 kg Intake: Oral 596 118 Output: Urine 700 Other: Voiding Method Bedside Commode External Catheter Bedside Commode # Voids 1 - Labs CBC & Chem 7: 05/12/24 07:53 05/12/24 07:53 Labs: Abnormal Lab Results - Last 24 Hours (Table) 05/11/24 05/11/24 05/12/24 Range/Units 16:40 20:11 05:10 WBC (3.8-10.6) k/uL Neutrophils # (1.3-7.7) k/uL Chloride (98-107) mmol/L BUN (7-17) mg/dL Creatinine (0.52-1.04) mg/dL Glucose (74-99) mg/dL POC Glucose (mg/dL) 409 H 366 H (70-110) mg/dL Total Protein (6.3-8.2) g/dL Albumin (3.5-5.0) g/dL Urine Appearance Cloudy H (Clear) Urine Protein 3+ H (Negative) Urine Glucose (UA) 4+ H (Negative) Ur Leukocyte Esterase Large H (Negative) Urine WBC >182 H (0-5) /hpf Urine WBC Clumps Many H (None) /hpf Urine Bacteria Many H (None) /hpf Hyaline Casts 5 H (0-2) /lpf Urine Mucus Rare H (None) /hpf 05/12/24 05/12/24 05/12/24 Range/Units 05:41 07:53 07:53 WBC 15.4 H (3.8-10.6) k/uL Neutrophils # 11.3 H (1.3-7.7) k/uL Chloride 108 H (98-107) mmol/L BUN 41 H (7-17) mg/dL Creatinine 2.03 H (0.52-1.04) mg/dL Glucose 148 H (74-99) mg/dL POC Glucose (mg/dL) 201 H (70-110) mg/dL Total Protein 5.5 L (6.3-8.2) g/dL Albumin 3.2 L (3.5-5.0) g/dL Urine Appearance (Clear) Urine Protein (Negative) Urine Glucose (UA) (Negative) Ur Leukocyte Esterase (Negative) Urine WBC (0-5) /hpf Urine WBC Clumps (None) /hpf Urine Bacteria (None) /hpf Hyaline Casts (0-2) /lpf Urine Mucus (None) /hpf 05/12/24 Range/Units 11:51 WBC (3.8-10.6) k/uL Neutrophils # (1.3-7.7) k/uL Chloride (98-107) mmol/L BUN (7-17) mg/dL Creatinine (0.52-1.04) mg/dL Glucose (74-99) mg/dL POC Glucose (mg/dL) 215 H (70-110) mg/dL Total Protein (6.3-8.2) g/dL Albumin (3.5-5.0) g/dL Urine Appearance (Clear) Urine Protein (Negative) Urine Glucose (UA) (Negative) Ur Leukocyte Esterase (Negative) Urine WBC (0-5) /hpf Urine WBC Clumps (None) /hpf Urine Bacteria (None) /hpf Hyaline Casts (0-2) /lpf Urine Mucus (None) /hpf Assessment and Plan Plan: Assessment: 1. Chronic kidney disease stage IV baseline creatinine 1.8-2.2 secondary to biopsy-proven diabetic kidney disease. GFR at baseline. 2. Hypercalcemia. Workup from February 2024 showed PTH of 154, vitamin D level of 6.3 and a Calcitrol level of 12. DORA level was slightly elevated at 66. No monoclonality noted on serum immunofixation. Parathyroid nuclear scan showed no evidence of parathyroid adenoma. On Sensipar. Calcium level stable. 3. Right-sided weakness. Possibly TIA. Neurology following. 4. History of MS. 5. Diabetes mellitus. 6. Coronary artery disease multiple stents. 7. Hypertension with chronic kidney disease. 8. Metabolic acidosis secondary to chronic kidney disease maintained on oral bicarb. Plan: Encouraged oral intake. Maintain SGLT2 inhibitor. Maintain Sensipar - 30 mg three times a week. Avoid nephrotoxins. Continue to monitor renal function and urine output. Patient has been referred to pulmonology outpatient due to elevated DORA level and to hematology oncology due to mildly elevated light chains. Follow-up outpatient 2 weeks postdischarge. Avoid calcium and vitamin D supplements.
--- NOTE | 2024-05-12 13:58 | P.PN ---
Subjective Progress Note Date: 05/12/24 This is a 53-year-old female patient of Dr. Lima who presented with concerns of right sided numbness. Patient reports that she was just watching TV yesterday when she became very weak and had tingling on her right arm and leg. Patient denies slurred speech or loss of consciousness. Patient does have a history of previous CVA with significant right-sided weakness. Patient reports that symptoms are improving but she still has some numbness to that right side patient was recently here and treated for non-STEMI. Patient reports she has a significant history of coronary artery disease with multiple stents, stroke, chronic kidney disease, diabetes mellitus on insulin pump, hypertension, hyperl ipidemia, peripheral neuropathy, peripheral artery disease, ovarian cancer and ongoing tobacco use. Head CT was completed showing age-related atrophic and chronic small vessel ischemic changes without acute intracranial process seen at this time. CTA performed showing no significant abnormality. Chest x-ray completed showing mild diffuse airspace opacities in both lungs with central considered may represent atelectasis and/or pneumonia versus mild pulmonary edema. Patient denies any respiratory symptoms will order 2 view chest x-ray to follow-up. At this time cardiology and neurology services will be consulted PT OT services consulted. Current vital signs Temp 98.1, heart rate 75, resp iratory rate 18, blood pressure 137/71 with a pulse ox of 98% on 2 L On 05/11/2024 patient was seen and examined on the medical floor she is alert and oriented x 3 in no apparent distress she is still complaining of right-sided weakness and difficulty ambulating, otherwise she denies any complaints there is no fever or chills no headache or dizziness no chest pain no shortness of breath no cough no nausea or vomiting no abdominal pain no diarrhea and no urinary symptoms. Today white blood count is elevated up to 18,000, no clear source of infection is identified, chest x-ray is within normal limits, will obtain urine analysis. At this time we are still awaiting MRI of the brain and further recommendation from neurology, continue with physical therapy and Occupational Therapy, a consult was placed for inpatient rehab for potential admission. On 05/12/2024 patient was seen and examined on the medical floor, she is alert and oriented x 3 in no apparent distress, she is scheduled for a brain MRI today per neurology, patient is stating that she is claustrophobic and asking to be premedicated for the MRI, she will be given Ativan 1 mg IV prior to MRI, patient is still complaining of weakness and gait disturbance, otherwise she denies any complaints at this time, there is no fever or chills no headache or dizziness no chest pain no shortness of breath no cough no nausea or vomiting no abdominal pain no diarrhea no urinary symptoms, urine analysis reveals evidence of urinary tract infection, patient has elevated white blood count, she will be started on ceftriaxone 1 g IV daily, will continue to follow closely, awaiting further recommendations from neurology. Objective - Vital Signs Vital signs: Vital Signs Temp 97.7 F 05/12/24 07:32 Pulse 60 05/12/24 07:32 Resp 16 05/12/24 07:32 BP 112/69 05/12/24 07:32 Pulse Ox 93 L 05/12/24 07:32 FiO2 Intake & Output 05/11/24 05/12/24 05/12/24 18:59 06:59 18:59 Intake Total 596 118 Output Total 700 Balance 596 -700 118 Weight 104.9 kg 105.4 kg Intake: Oral 596 118 Output: Urine 700 Other: Voiding Method Bedside Commode External Catheter Bedside Commode # Voids 1 - Exam Head normocephalic Neck supple Lungs clear to auscultation bilaterally no wheezing or crackles Heart regular rate and rhythm S1-S2, no rub or gallop Abdomen is soft nontender nondistended positive bowel sounds no hepatosplenomegaly Extremities no edema Neuro alert and orientated to 3. Patient has chronic right arm and right leg weakness secondary to previous stroke - Labs CBC & Chem 7: 05/12/24 07:53 05/12/24 07:53 Labs: Abnormal Lab Results - Last 24 Hours (Table) 05/11/24 05/11/24 05/12/24 Range/Units 16:40 20:11 05:10 WBC (3.8-10.6) k/uL Neutrophils # (1.3-7.7) k/uL Chloride (98-107) mmol/L BUN (7-17) mg/dL Creatinine (0.52-1.04) mg/dL Glucose (74-99) mg/dL POC Glucose (mg/dL) 409 H 366 H (70-110) mg/dL Total Protein (6.3-8.2) g/dL Albumin (3.5-5.0) g/dL Urine Appearance Cloudy H (Clear) Urine Protein 3+ H (Negative) Urine Glucose (UA) 4+ H (Negative) Ur Leukocyte Esterase Large H (Negative) Urine WBC >182 H (0-5) /hpf Urine WBC Clumps Many H (None) /hpf Urine Bacteria Many H (None) /hpf Hyaline Casts 5 H (0-2) /lpf Urine Mucus Rare H (None) /hpf 05/12/24 05/12/24 05/12/24 Range/Units 05:41 07:53 07:53 WBC 15.4 H (3.8-10.6) k/uL Neutrophils # 11.3 H (1.3-7.7) k/uL Chloride 108 H (98-107) mmol/L BUN 41 H (7-17) mg/dL Creatinine 2.03 H (0.52-1.04) mg/dL Glucose 148 H (74-99) mg/dL POC Glucose (mg/dL) 201 H (70-110) mg/dL Total Protein 5.5 L (6.3-8.2) g/dL Albumin 3.2 L (3.5-5.0) g/dL Urine Appearance (Clear) Urine Protein (Negative) Urine Glucose (UA) (Negative) Ur Leukocyte Esterase (Negative) Urine WBC (0-5) /hpf Urine WBC Clumps (None) /hpf Urine Bacteria (None) /hpf Hyaline Casts (0-2) /lpf Urine Mucus (None) /hpf 05/12/24 Range/Units 11:51 WBC (3.8-10.6) k/uL Neutrophils # (1.3-7.7) k/uL Chloride (98-107) mmol/L BUN (7-17) mg/dL Creatinine (0.52-1.04) mg/dL Glucose (74-99) mg/dL POC Glucose (mg/dL) 215 H (70-110) mg/dL Total Protein (6.3-8.2) g/dL Albumin (3.5-5.0) g/dL Urine Appearance (Clear) Urine Protein (Negative) Urine Glucose (UA) (Negative) Ur Leukocyte Esterase (Negative) Urine WBC (0-5) /hpf Urine WBC Clumps (None) /hpf Urine Bacteria (None) /hpf Hyaline Casts (0-2) /lpf Urine Mucus (None) /hpf Assessment and Plan Assessment: 1. Right sided numbness and tingling possible CVA 2. Recent admission for non-STEMI 3. History of CVA with right-sided weakness in 2017 4. History of MS patient reports he follows with neurology services 5. History of significant coronary artery disease with multiple stent placement 6. History of diabetes mellitus 7. History of essential hypertension 8. History of hyperlipidemia 9. History of peripheral neuropathy 10. History of peripheral arterial disease 11. History of ovarian cancer 12. History of bipolar disorder followed by psychiatry DVT prophylaxis Lovenox. GI prophylaxis Protonix Neurology and cardiology services consulted Repeat labs ordered PT OT services consulted
--- NOTE | 2024-05-12 14:53 | P.PN ---
Subjective Progress Note Date: 05/12/24 Reason for Consult (text): CVA History of present illness: This is a 53-year-old female patient of Dr. 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 We have been asked to evaluate the patient for CVA. Patient states that she presented to the hospital as her face was feeling funny on the right side and then the sensation seem to go down her body. Patient denies having any chest pain. She has been seen by neurology and started on Plavix and continued on aspirin and statin. Blood pressure 177/76, heart rate 69, afebrile, pulse ox 93% on room air. EKG: Sinus rhythm with a right bundle branch block Chest x-ray: No acute process CTA of the head and neck was negative CT of the brain revealed age-related atrophy and chronic small vessel ischemic change without acute intracranial process. Laboratory studies: WBC 18.3, hemoglobin 12.6. Sodium 134, potassium 4.8, BUN 37 creatinine 2.22. Troponin negative x 1. Triglycerides 254, cholesterol 270, LDL 173, HDL 46. Home cardiac medications: Amlodipine 10 mg daily, atorvastatin 40 mg daily, aspirin 81 mg daily, Coreg 25 mg twice daily, Jardiance 10 mg daily, fenofibrate 160 mg daily, hydralazine 50 mg 3 times daily, Imdur 60 mg daily, magnesium oxide 400 mg twice daily, Nitrostat as needed. Cardiac catheterization history: 12/11/2023 revealed 60% mid RCA stenosis involving the previous stented segment. Patent stents within the RCA, LAD diagonal with moderate nonobstructive disease involving the LAD and the ostial portion of the diagonal branch. Event monitor performed 11/21/2022 revealed sinus rhythm 79 bpm heart rate varied between 64 and 92. No episodes of tachycardia or bradycardia. Lexiscan Cardiolite stress test performed on 02/07/2022 revealed no stress- induced ischemia. EF 45%. Echocardiogram performed in the office 06/06/2015 revealed normal LV size and function. Mild concentric hypertrophy. JUANITA performed 02/2015 revealed no intracardiac thrombus, no shunting across intra-atrial septum. 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 05/12 Yesterday, we ordered echocardiogram with bubble study which is pending. Patient also underwent MRI this morning. She denies having any chest pain or shortness of breath. Blood pressure 112/69, heart rate 60, pulse ox 93% on room air. Repeat blood work reveals BUN 41 creatinine 2.03. Yesterday, we increase hydralazine to 75 mg 3 times daily. Plan to monitor blood pressure, no medication changes made today. Physical examination: Gen: This is a obese 53-year-old female in no acute distress VS: reviewed HEENT: Head is atraumatic, normocephalic. Pupils equal, round. Sclerae is anicteric. NECK: Supple. No JVD. LUNGS: Clear to auscultation. No wheezes or rhonchi. No intercostal retractions. HEART: Regular rate and rhythm. No murmur. ABDOMEN: Soft No tenderness. EXTREMITIES: No pedal edema. No calf tenderness. NEUROLOGICAL: Patient is awake, alert and oriented x3. Assessment: TIA Diabetes mellitus type 2 Hypertension uncontrolled Dyslipidemia History of tobacco use and dependence Plan: Continue patient's home cardiac medications Continue hydralazine 75 mg 3 times daily Obtain 2-D echocardiogram and Doppler study with bubble study Further recommendations to follow based upon clinical course Nurse practitioner note has been reviewed, I agree with documented findings and plan of care. Patient was seen and examined. Objective - Vital Signs Vital signs: Vital Signs Temp 97.7 F 05/12/24 07:32 Pulse 60 05/12/24 07:32 Resp 16 05/12/24 07:32 BP 112/69 05/12/24 07:32 Pulse Ox 93 L 05/12/24 07:32 FiO2 Intake & Output 05/11/24 05/12/24 05/12/24 18:59 06:59 18:59 Intake Total 596 118 Output Total 700 Balance 596 -700 118 Weight 104.9 kg 105.4 kg Intake: Oral 596 118 Output: Urine 700 Other: Voiding Method Bedside Commode External Catheter Bedside Commode # Voids 1 - Labs CBC & Chem 7: 05/12/24 07:53 05/12/24 07:53 Labs: Abnormal Lab Results - Last 24 Hours (Table) 05/11/24 05/11/24 05/11/24 Range/Units 11:47 16:40 20:11 WBC (3.8-10.6) k/uL Neutrophils # (1.3-7.7) k/uL Chloride (98-107) mmol/L BUN (7-17) mg/dL Creatinine (0.52-1.04) mg/dL Glucose (74-99) mg/dL POC Glucose (mg/dL) 511 H* 409 H 366 H (70-110) mg/dL Total Protein (6.3-8.2) g/dL Albumin (3.5-5.0) g/dL Urine Appearance (Clear) Urine Protein (Negative) Urine Glucose (UA) (Negative) Ur Leukocyte Esterase (Negative) Urine WBC (0-5) /hpf Urine WBC Clumps (None) /hpf Urine Bacteria (None) /hpf Hyaline Casts (0-2) /lpf Urine Mucus (None) /hpf 05/12/24 05/12/24 05/12/24 Range/Units 05:10 05:41 07:53 WBC (3.8-10.6) k/uL Neutrophils # (1.3-7.7) k/uL Chloride 108 H (98-107) mmol/L BUN 41 H (7-17) mg/dL Creatinine 2.03 H (0.52-1.04) mg/dL Glucose 148 H (74-99) mg/dL POC Glucose (mg/dL) 201 H (70-110) mg/dL Total Protein 5.5 L (6.3-8.2) g/dL Albumin 3.2 L (3.5-5.0) g/dL Urine Appearance Cloudy H (Clear) Urine Protein 3+ H (Negative) Urine Glucose (UA) 4+ H (Negative) Ur Leukocyte Esterase Large H (Negative) Urine WBC >182 H (0-5) /hpf Urine WBC Clumps Many H (None) /hpf Urine Bacteria Many H (None) /hpf Hyaline Casts 5 H (0-2) /lpf Urine Mucus Rare H (None) /hpf 05/12/24 Range/Units 07:53 WBC 15.4 H (3.8-10.6) k/uL Neutrophils # 11.3 H (1.3-7.7) k/uL Chloride (98-107) mmol/L BUN (7-17) mg/dL Creatinine (0.52-1.04) mg/dL Glucose (74-99) mg/dL POC Glucose (mg/dL) (70-110) mg/dL Total Protein (6.3-8.2) g/dL Albumin (3.5-5.0) g/dL Urine Appearance (Clear) Urine Protein (Negative) Urine Glucose (UA) (Negative) Ur Leukocyte Esterase (Negative) Urine WBC (0-5) /hpf Urine WBC Clumps (None) /hpf Urine Bacteria (None) /hpf Hyaline Casts (0-2) /lpf Urine Mucus (None) /hpf
--- NOTE | 2024-05-12 14:58 | P.PN ---
Subjective Progress Note Date: 05/12/24 Seeing the patient for the first time during this admission. Please refer to Dr. Cyr and Dr. Mccarty's note for further details. According to the patient she has history of stroke with right hemiparesis as well as has history of multiple sclerosis presents to the hospital because of right sided numbness including the face that started first then had worsening of the weakness. She stated her symptoms has resolved. Patient states she feels back to baseline. Objective - Vital Signs Vital signs: Vital Signs Temp 97.7 F 05/12/24 07:32 Pulse 69 05/12/24 13:27 Resp 16 05/12/24 11:59 BP 150/70 05/12/24 11:59 Pulse Ox 93 L 05/12/24 11:59 FiO2 Intake & Output 05/11/24 05/12/24 05/12/24 18:59 06:59 18:59 Intake Total 596 236 Output Total 700 Balance 596 -700 236 Weight 104.9 kg 105.4 kg Intake: Oral 596 236 Output: Urine 700 Other: Voiding Method Bedside Commode External Catheter Bedside Commode # Voids 1 - Exam General: Sitting up in bed and is not in acute distress. Neuro The patient is awake, alert, oriented to self, place and time. Is following simple commands. No aphasia or neglect. Pupils are round, equal and reactive to light. Visual li are full to confrontation. Normal facial sensation to touch. Has mild right lower facial weakness. No dysarthria. Motor: Right side is 4+ while left is 5/5. - Labs CBC & Chem 7: 05/12/24 07:53 05/12/24 07:53 Labs: Abnormal Lab Results - Last 24 Hours (Table) 05/11/24 05/11/24 05/12/24 Range/Units 16:40 20:11 05:10 WBC (3.8-10.6) k/uL Neutrophils # (1.3-7.7) k/uL Chloride (98-107) mmol/L BUN (7-17) mg/dL Creatinine (0.52-1.04) mg/dL Glucose (74-99) mg/dL POC Glucose (mg/dL) 409 H 366 H (70-110) mg/dL Total Protein (6.3-8.2) g/dL Albumin (3.5-5.0) g/dL Urine Appearance Cloudy H (Clear) Urine Protein 3+ H (Negative) Urine Glucose (UA) 4+ H (Negative) Ur Leukocyte Esterase Large H (Negative) Urine WBC >182 H (0-5) /hpf Urine WBC Clumps Many H (None) /hpf Urine Bacteria Many H (None) /hpf Hyaline Casts 5 H (0-2) /lpf Urine Mucus Rare H (None) /hpf 05/12/24 05/12/24 05/12/24 Range/Units 05:41 07:53 07:53 WBC 15.4 H (3.8-10.6) k/uL Neutrophils # 11.3 H (1.3-7.7) k/uL Chloride 108 H (98-107) mmol/L BUN 41 H (7-17) mg/dL Creatinine 2.03 H (0.52-1.04) mg/dL Glucose 148 H (74-99) mg/dL POC Glucose (mg/dL) 201 H (70-110) mg/dL Total Protein 5.5 L (6.3-8.2) g/dL Albumin 3.2 L (3.5-5.0) g/dL Urine Appearance (Clear) Urine Protein (Negative) Urine Glucose (UA) (Negative) Ur Leukocyte Esterase (Negative) Urine WBC (0-5) /hpf Urine WBC Clumps (None) /hpf Urine Bacteria (None) /hpf Hyaline Casts (0-2) /lpf Urine Mucus (None) /hpf 05/12/24 Range/Units 11:51 WBC (3.8-10.6) k/uL Neutrophils # (1.3-7.7) k/uL Chloride (98-107) mmol/L BUN (7-17) mg/dL Creatinine (0.52-1.04) mg/dL Glucose (74-99) mg/dL POC Glucose (mg/dL) 215 H (70-110) mg/dL Total Protein (6.3-8.2) g/dL Albumin (3.5-5.0) g/dL Urine Appearance (Clear) Urine Protein (Negative) Urine Glucose (UA) (Negative) Ur Leukocyte Esterase (Negative) Urine WBC (0-5) /hpf Urine WBC Clumps (None) /hpf Urine Bacteria (None) /hpf Hyaline Casts (0-2) /lpf Urine Mucus (None) /hpf Assessment and Plan Assessment: 1. The patient is a 53-year-old female who presents with sudden onset of right-sided weakness. Likely the symptoms which are vastly resolved at this point, are secondary to transient ischemic attack (especially with multiple risk factors: prior stroke, uncontrolled DM, tobacco use, hyperlipidemia, factor V leiden, history of CAD, HTN). Exacerbation of MS would be less likely as the symptoms typically do not occur suddenly and do not resolve this quickly. Possible Ischemic stroke recrudescence from acute UTI. 2. Diabetes mellitus and is uncontrolled HbA1c 10.6. Sugars during this hospital visit >600 3. Acute UTI. 4. Dyslipidema with history hyperlipidemia 5. History of hypertension 6. History of factor V Leiden deficiency 7. History of previous stroke with residual right hemiparesis. 8. History of Multipe Sclerosis. 9. History of hyperlipidemia 10. History of coronary artery disease 11. CKD 12. Tobacco use Plan: 1. MRI of the brain: Diffuse periventricular white matter ischemic type changes with some mild atrophy. No acute intracranial process radiographically apparent. Follow-up can be performed as clinically indicated. I personally reviewed the MRI and agree there is no acute or subacute ischemic stroke. 2. Dual antiplatelet therapy for 21 days, then discontinue aspirin and continue Plavix monotherapy, as per recommendation from Dr. Cyr 3. Lipid panel: triglyceride 254, cholesterol is 270, LDL is 170, HDL is 46. Is on Lipitor 80mg qhs and recommend LDL <70 in strokes. 4. Hemoglobin A1c is 10.[address] angiography of the head and neck is reported as no significant abnormality. 6. 2D echo is ordered and is pending 7. Physical and Occupational Therapy evaluations 8. Consider rehab consultation for inpatient rehab placement 9. Continue neuro checks and cardiac monitoring. 10. Recommend better control of sugar. 11. Patient was counseld on tobacco cessation. 12. Will defer the rest of medical management to primary team and other specialist. For DVT prophylaxis: Is on Lovenox. Upon discharge, recommend the patient to follow-up with neurologist as outpatient within 2 weeks. The plan is discussed with patient and her who is at bedside. If 2D echo is normal then no further neurological work-up. Time with Patient: Less than 30
--- NOTE | 2024-05-12 15:36 | CA ---
Transthoracic Echo Report Name: Leticia Langley Age: 53 Gender: F : 1970 Exam Date: 05/12/2024 08:41 Exam Location: [facility] Ht (in): 66 Wt (lb): 231 Ordering Physician: Cori Caba Attending/Referring Phys: [id number], [employer] Work[employer] Katelyn Posey RDCS Procedure CPT: Indications: CVA, w bubble study Cardiac Hx: Technical Quality: Good Contrast 1: Total Dose (mL): Contrast 2: Total Dose (mL): MEASUREMENTS (Male / Female) Normal Values 2D ECHO LV Diastolic Diameter PLAX 6.3 cm 4.2 - 5.9 / 3.9 - 5.3 cm LV Systolic Diameter PLAX 4.4 cm IVS Diastolic Thickness 1.7 cm 0.6 - 1.0 / 0.6 - 0.9 cm LVPW Diastolic Thickness 1.5 cm 0.6 - 1.0 / 0.6 - 0.9 cm LV Relative Wall Thickness 0.5 LV Diastolic Volume MOD BP 157.9 cm??? 67 - 155 / 56 - 104 cm??? LV Systolic Volume MOD BP 68.8 cm??? 22 - 58 / 19 - 49 cm??? LV Ejection Fraction MOD BP 56.4 % >= 55 % LV Cardiac Index MOD BP 2528.6 cm???/min???m??? LV Diastolic Volume MOD 4C 162.7 cm??? LV Systolic Volume MOD 4C 73.8 cm??? LV Ejection Fraction MOD 4C 54.6 % LV Cardiac Index MOD 4C 2521.8 cm???/min???m??? LV Diastolic Length 4C 10.0 cm LV Systolic Length 4C 8.0 cm LV Diastolic Volume MOD 2C 142.4 cm??? LV Systolic Volume MOD 2C 61.9 cm??? LV Ejection Fraction MOD 2C 56.6 % LV Cardiac Index MOD 2C 2285.2 cm???/min???m??? LV Diastolic Length 2C 10.9 cm LV Systolic Length 2C 8.6 cm FINDINGS Left Ventricle Left ventricular ejection fraction is estimated at 55-60 %. Severely increased septal wall thickness. Moderately increased posterior wall thickness. Severely increased left ventricular diastolic diameter. Severely increased left ventricular diastolic volume. Moderately increased left ventricular systolic volume. No obvious regional wall motion abnormalities. Negative bubble study. Right Ventricle Normal right ventricular size and function. Right Atrium Normal right atrial size by visual. Left Atrium Left atrial dilatation by visual. Mitral Valve Structurally normal mitral valve. Aortic Valve Trileaflet aortic valve. Tricuspid Valve Structurally normal tricuspid valve. Pulmonic Valve Structurally normal pulmonic valve. Pericardium No pericardial effusion. Aorta Aortic root and proximal ascending aorta not well visualized. CONCLUSIONS Left ventricular ejection fraction 55-60% Severely increased left ventricular wall thickening No pericardial effusion Suboptimal bubble study however no bubbles noted to cross, negative bubble study as visualized Previewed by: Dr. Eligio Mckeon DO (Electronically Signed) Final Date: 12 May 2024 15:36
[2024-05-12 16:57] LABS: Glucose,Whole Blood 202 mg/dL (70-110)
[2024-05-12 20:20] LABS: Glucose,Whole Blood 296 mg/dL (70-110)
[2024-05-13 04:49] VITALS: TEMP 97.7
[2024-05-13 06:15] LABS: Glucose,Whole Blood 181 mg/dL (70-110)
[2024-05-13 10:33] LABS: Basophils % (A) 0 %; Eosinophils # (A) 0.2 k/uL (0-0.7); Eosinophils % (A) 2 %; HCT 38.8 % (34.0-46.0); HGB 12.2 gm/dL (11.4-16.0); Lymphocytes # (A) 2.1 k/uL (1.0-4.8); Lymphocytes % (A) 25 %; MCH 32.2 pg (25.0-35.0); MCHC 31.5 g/dL (31.0-37.0); MCV 102.1 fL (80.0-100.0); Macrocytosis Slight; Monocytes # (A) 0.5 k/uL (0-1.0); Monocytes % (A) 5 %; Neutrophils # (A) 5.7 k/uL (1.3-7.7); Neutrophils % (A) 66 %; Platelet Count 213 k/uL (150-450); WBC 8.6 k/uL (3.8-10.6)
--- NOTE | 2024-05-13 10:54 | P.PN ---
Subjective Progress Note Date: 05/13/24 Reason for Consult (text): CVA History of present illness: This is a 53-year-old female patient of Dr. 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 We have been asked to evaluate the patient for CVA. Patient states that she presented to the hospital as her face was feeling funny on the right side and then the sensation seem to go down her body. Patient denies having any chest pain. She has been seen by neurology and started on Plavix and continued on aspirin and statin. Blood pressure 177/76, heart rate 69, afebrile, pulse ox 93% on room air. EKG: Sinus rhythm with a right bundle branch block Chest x-ray: No acute process CTA of the head and neck was negative CT of the brain revealed age-related atrophy and chronic small vessel ischemic change without acute intracranial process. Laboratory studies: WBC 18.3, hemoglobin 12.6. Sodium 134, potassium 4.8, BUN 37 creatinine 2.22. Troponin negative x 1. Triglycerides 254, cholesterol 270, LDL 173, HDL 46. Home cardiac medications: Amlodipine 10 mg daily, atorvastatin 40 mg daily, aspirin 81 mg daily, Coreg 25 mg twice daily, Jardiance 10 mg daily, fenofibrate 160 mg daily, hydralazine 50 mg 3 times daily, Imdur 60 mg daily, magnesium oxide 400 mg twice daily, Nitrostat as needed. Cardiac catheterization history: 12/11/2023 revealed 60% mid RCA stenosis involving the previous stented segment. Patent stents within the RCA, LAD diagonal with moderate nonobstructive disease involving the LAD and the ostial portion of the diagonal branch. Event monitor performed 11/21/2022 revealed sinus rhythm 79 bpm heart rate varied between 64 and 92. No episodes of tachycardia or bradycardia. Lexiscan Cardiolite stress test performed on 02/07/2022 revealed no stress- induced ischemia. EF 45%. Echocardiogram performed in the office 06/06/2015 revealed normal LV size and function. Mild concentric hypertrophy. JUANITA performed 02/2015 revealed no intracardiac thrombus, no shunting across intra-atrial septum. 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 05/12 Yesterday, we ordered echocardiogram with bubble study which is pending. Patient also underwent MRI this morning. She denies having any chest pain or shortness of breath. Blood pressure 112/69, heart rate 60, pulse ox 93% on room air. Repeat blood work reveals BUN 41 creatinine 2.03. Yesterday, we increase hydralazine to 75 mg 3 times daily. Plan to monitor blood pressure, no medication changes made today. 05/13 Patient underwent echocardiogram with bubble study which revealed EF 55 to 60%, suboptimal bubble study however no bubbles noted to cross. Negative bubble study as visualized. MRI of the brain revealed diffuse periventricular white matter ischemic changes and some mild atrophy. No acute intracranial process. Results of echocardio gram and MRI reviewed with the patient. Patient does not need to undergo JUANITA with negative MRI. Blood pressure 146/68, heart rate 60, pulse ox 98% on CPAP. Physical examination: Gen: This is a obese 53-year-old female in no acute distress VS: reviewed HEENT: Head is atraumatic, normocephalic. Pupils equal, round. Sclerae is anicteric. NECK: Supple. No JVD. LUNGS: Clear to auscultation. No wheezes or rhonchi. No intercostal retractions. HEART: Regular rate and rhythm. No murmur. ABDOMEN: Soft No tenderness. EXTREMITIES: No pedal edema. No calf tenderness. NEUROLOGICAL: Patient is awake, alert and oriented x3. Assessment: TIA Diabetes mellitus type 2 Hypertension uncontrolled Dyslipidemia History of tobacco use and dependence Plan: Continue patient's home cardiac medications Continue hydralazine 75 mg 3 times daily Patient is cleared for discharge from cardiology and may follow-up with Dr. Alma Delia Jasso in 2 weeks. Nurse practitioner note has been reviewed, I agree with documented findings and plan of care. Patient was seen and examined. Objective - Vital Signs Vital signs: Vital Signs Temp 97.7 F 05/13/24 04:00 Pulse 60 05/13/24 04:00 Resp 16 05/13/24 04:00 BP 146/68 05/13/24 04:00 Pulse Ox 98 05/13/24 04:00 FiO2 Intake & Output 05/12/24 05/13/24 05/13/24 18:59 06:59 18:59 Intake Total 736 180 Output Total 600 Balance 136 180 Weight 102.6 kg Intake: Oral 736 180 Output: Urine 600 Other: Voiding Method Bedside Commode Bedside Commode # Voids 1 # Bowel Movements 1 - Labs CBC & Chem 7: 05/13/24 10:00 05/12/24 07:53 Labs: Abnormal Lab Results - Last 24 Hours (Table) 05/12/24 05/12/24 05/12/24 Range/Units 11:51 16:55 20:11 POC Glucose (mg/dL) 215 H 202 H 296 H (70-110) mg/dL 05/13/24 Range/Units 06:11 POC Glucose (mg/dL) 181 H (70-110) mg/dL
[2024-05-13 10:59] LABS: ALT 12 U/L (4-34); AST 22 U/L (14-36); African American GFR (CKD) 33 (>60 ml/min/1.73 sqM); Albumin 2.7 g/dL (3.5-5.0); Alkaline Phosphatase 102 U/L (38-126); Anion Gap 4 mmol/L; Blood Urea Nitrogen 39 mg/dL (7-17); Calcium 8.9 mg/dL (8.4-10.2); Carbon Dioxide 23 mmol/L (22-30); Chloride 107 mmol/L (98-107); Glucose 364 mg/dL (74-99); Non-African American GFR(CKD) 29 (>60 ml/min/1.73 sqM); Potassium 4.1 mmol/L (3.5-5.1); Sodium 134 mmol/L (137-145); Total Bilirubin 0.2 mg/dL (0.2-1.3); Total Protein 4.7 g/dL (6.3-8.2)
--- NOTE | 2024-05-13 11:09 | P.PN ---
Subjective Patient is seen in follow-up for chronic kidney disease. Renal function stable. No active complaints. Oral intake fair. present at bedside. Vital signs are stable. General: No acute distress. HEENT: Head exam is unremarkable. LUNGS: No audible rhonchi or wheezes. HEART: Rate and Rhythm are regular. ABDOMEN: Nontender. EXTREMITITES: No edema. Objective - Vital Signs Vital signs: Vital Signs Temp 97.7 F 05/13/24 04:00 Pulse 60 05/13/24 04:00 Resp 16 05/13/24 04:00 BP 146/68 05/13/24 04:00 Pulse Ox 98 05/13/24 04:00 FiO2 Intake & Output 05/12/24 05/13/24 05/13/24 18:59 06:59 18:59 Intake Total 736 180 Output Total 600 Balance 136 180 Weight 102.6 kg Intake: Oral 736 180 Output: Urine 600 Other: Voiding Method Bedside Commode Bedside Commode # Voids 1 # Bowel Movements 1 - Labs CBC & Chem 7: 05/13/24 10:00 05/13/24 10:00 Labs: Abnormal Lab Results - Last 24 Hours (Table) 05/12/24 05/12/24 05/12/24 Range/Units 11:51 16:55 20:11 MCV (80.0-100.0) fL Sodium (137-145) mmol/L BUN (7-17) mg/dL Creatinine (0.52-1.04) mg/dL Glucose (74-99) mg/dL POC Glucose (mg/dL) 215 H 202 H 296 H (70-110) mg/dL Total Protein (6.3-8.2) g/dL Albumin (3.5-5.0) g/dL 05/13/24 05/13/24 05/13/24 Range/Units 06:11 10:00 10:00 MCV 102.1 H (80.0-100.0) fL Sodium 134 L (137-145) mmol/L BUN 39 H (7-17) mg/dL Creatinine 1.98 H (0.52-1.04) mg/dL Glucose 364 H (74-99) mg/dL POC Glucose (mg/dL) 181 H (70-110) mg/dL Total Protein 4.7 L (6.3-8.2) g/dL Albumin 2.7 L (3.5-5.0) g/dL Assessment and Plan Plan: Assessment: 1. Chronic kidney disease stage IV baseline creatinine 1.8-2.2 secondary to biopsy-proven diabetic kidney disease. GFR at baseline. 2. Hypercalcemia. Workup from February 2024 showed PTH of 154, vitamin D level of 6.3 and a Calcitrol level of 12. DORA level was slightly elevated at 66. No monoclonality noted on serum immunofixation. Parathyroid nuclear scan showed no evidence of parathyroid adenoma. On Sensipar. Calcium level stable. 3. Right-sided weakness. Possibly TIA. Neurology following. 4. History of MS. 5. Diabetes mellitus. 6. Coronary artery disease multiple stents. 7. Hypertension with chronic kidney disease. Stable. 8. Metabolic acidosis secondary to chronic kidney disease maintained on oral bicarb. Plan: Encouraged oral intake. Maintain SGLT2 inhibitor. Maintain Sensipar - 30 mg three times a week. Avoid nephrotoxins. Continue to monitor renal function and urine output. Patient has been referred to pulmonology outpatient due to elevated DORA level and to hematology oncology due to mildly elevated light chains. Follow-up outpatient 2 weeks postdischarge. Avoid calcium and vitamin D supplements.
[2024-05-13 11:41] LABS: Glucose,Whole Blood 433 mg/dL (70-110)
--- NOTE | 2024-05-13 12:14 | P.CONS ---
History of Present Illness - Reason for Consult Consult date: 05/13/24 rehab recommendations - Chief Complaint weakness, CVA - History of Present Illness Ms Leticia Langley is a , left handed female who lives with her . Patient was independent at wheelchair level with ADLs, able to furniture walk in the home, able to walk to bathroom. She has a scooter and a wheelchair for the community. She is unemployed, on disability. Family/ for support. Patient presented to the hospital on 05/09/24 with concerns of right sided numbness. Per records, she became very weak and had tingling on her right arm and leg while watching TV. Patient denies slurred speech or loss of consciousness. Patient does have a history of previous CVA with significant right-sided weakness and right hand contracture. Her symptoms started to improve while in the hospital, but she still has some numbness to that right side. She was apparently recently here and treated for non-STEMI. Patient reports she has a significant history of coronary artery disease with multiple stents, stroke, chronic kidney disease, diabetes mellitus on insulin pump, hypertension, hype rlipidemia, peripheral neuropathy, peripheral artery disease, ovarian cancer and ongoing tobacco use. Head CT was completed showing age-related atrophic and chronic small vessel ischemic changes without acute intracranial process seen at this time. CTA performed showing no significant abnormality. Chest x-ray completed showing mild diffuse airspace opacities in both lungs with central considered may represent atelectasis and/or pneumonia versus mild pulmonary edema. Neurology consulted, MRI brain ordered. MRI with atrophic changes, no acute process. PM&R consulted for rehab recommendations, Patient was seen by therapies: mod I with bathing, dressing, transfers and bed mobility, able to take some steps, normally uses a wheelchair for mobility. She was cleared by [facility]. Is tired, has her "normal every day pain", but tolerable. Feels back to baseline. Denies SHEARER, CP, SOB, abdominal pain. LBM this am. Review of Systems reviewed, negative unless stated above in HPI 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 - slight foot drag when tired/neuropathies, MS, PR X 5, ABIGAIL with Cpap use, PAD/legs, R leg edema, past pancreatitis. HAD PR 10/27/23 Last Myocardial Infarction Date:: LAST ONE 10/27/23 History of Any Multi-Drug Resistant Organisms: None Reported Past Surgical History: Section, Cholecystectomy, Heart Catheterization With Stent, Hysterectomy, Tubal Ligation, Uterine Ablation Additional Past Surgical History / Comment(s): vein stripping right leg, radio frequency ablation of right back-02/22/2015, four stents on 04/03/16 and one on march 05, ovaries removed, colonscopy- polyp removal Past Anesthesia/Blood Transfusion Reactions: Motion Sickness Additional Past Anesthesia/Blood Transfusion Reaction / Comm: mild claustrophobia Date of Last Stent Placement:: 04/03/16 Past Psychological History: Anxiety, Depression Additional Psychological History / Comment(s): Pt resides with her spouse. She is mostly in her wheelchair. She has a walker and cane. She has a dexcom. Her spouse assists her with her medication organization. Spouse also drives pt. Smoking Status: Former smoker Past Alcohol Use History: None Reported Additional Past Alcohol Use History / Comment(s): Pt started smoking in 1988 and quit recently Past Drug Use History: None Reported - Past Family History Father Family Medical History: Congestive Heart Failure (CHF), Coronary Artery Disease (CAD), Diabetes Mellitus Mother Family Medical History: Cancer, COPD, Hypertension, Respiratory Disorder Additional Family Medical History / Comment(s): emphysema, colon CA Medications and Allergies Home Medications Medication Instructions Recorded Confirmed Type Aspirin [Adult Low Dose Aspirin EC] 81 mg PO HS 11/26/17 05/10/24 History DULoxetine HCL [Cymbalta] 60 mg PO DAILY 08/25/18 05/10/24 History Isosorbide Mononitrate ER [Imdur] 60 mg PO DAILY 09/08/18 05/10/24 History Empagliflozin [Jardiance] 10 mg PO DAILY 10/06/22 05/10/24 History Famotidine 20 mg PO BID PRN 10/06/22 05/10/24 History Nitroglycerin Sl Tabs [Nitrostat] 0.4 mg SL Q5M PRN 10/06/22 05/10/24 History Fenofibrate [Lofibra] 160 mg PO DAILY 01/25/23 05/10/24 History Pregabalin [Lyrica] 150 mg PO BID 02/05/23 05/10/24 History carvediloL [Coreg] 25 mg PO BID 02/05/23 05/10/24 History Budesonide/Formoterol Fumarate 2 puff INHALATION RT-BID PRN 07/17/23 05/10/24 History [Symbicort 160-4.5 Mcg Inhaler] INSULIN LISPRO (For Pump) [humaLOG 0.01 units SQ-PUMP CONTINUOUS 07/17/23 05/10/24 History (For Pump)] Atorvastatin [Lipitor] 40 mg PO HS 12/11/23 05/10/24 History Magnesium Oxide [Mag-Ox] 400 mg PO BID 03/10/24 05/10/24 History ALPRAZolam [Xanax] 1 mg PO DAILY 03/28/24 05/10/24 History Cinacalcet [Sensipar] 30 mg PO MOTH 03/28/24 05/10/24 History Sodium Bicarbonate 325 mg PO BID 03/28/24 05/10/24 History amLODIPine [Norvasc] 10 mg PO DAILY 03/28/24 05/10/24 History ALPRAZolam [Xanax] 2 mg PO HS 05/04/24 05/10/24 History ARIPiprazole [Abilify] 10 mg PO HS 05/04/24 05/10/24 History Ondansetron Odt [Zofran ODT] 8 mg PO Q12HR 05/04/24 05/10/24 History hydrALAZINE HCL [Apresoline] 50 mg PO TID 30 Days #90 tab 05/06/24 05/10/24 Rx Allergies Allergy/AdvReac Type Severity Reaction Status Date / Time Fish Containing Products Allergy Anaphylaxis Verified 05/10/24 10:36 Iodinated Contrast Media Allergy Anaphylaxis Verified 05/10/24 10:36 [Iodinated Contrast Media - IV Dye] Sulfa (Sulfonamide Allergy Anaphylaxis Verified 05/10/24 10:36 Antibiotics) sulfamethoxazole Allergy Anaphylaxis Verified 05/10/24 10:36 [From ] tree nut [Nut] Allergy Anaphylaxis Verified 05/10/24 10:36 trimethoprim [From ] Allergy Anaphylaxis Verified 05/10/24 10:36 Physical Exam Vitals: Vital Signs Temp Pulse Resp BP Pulse Ox 05/13/24 04:00 97.7 F 60 16 146/68 98 05/13/24 02:00 69 05/13/24 00:00 97.1 F L 66 16 136/62 98 05/12/24 20:00 97.3 F L 67 16 127/52 97 05/12/24 15:04 97.8 F 71 16 145/65 92 L 05/12/24 13:27 69 05/12/24 11:59 69 16 150/70 93 L Intake and Output 05/12/24 05/13/24 05/13/24 22:59 06:59 14:59 Intake Total 500 180 Output Total 600 Balance -100 180 Intake: Oral 500 180 Output: Urine 600 Other: Voiding Method Bedside Commode Bedside Commode # Voids 1 # Bowel Movements 1 Weight 102.6 kg General: WDWN, female, NAD Head: Normocephalic, atraumatic. Eyes: Symmetric Ears: Symmetric. Hearing within normal limits. Mouth: Clear. Neck: Supple. Cardiac: Regular rate. Calves supple, non tender, trace LE edema Lungs: Breathing comfortably on RA. Chest symmetric. Abdomen: Soft, nontender. Extremities: Arthritic changes consistent with age. Neurological: Alert and oriented x 4. Speech is clear and fluent without paraphasic errors Cranial nerves: CN II-XII: intact. Sensation: Intact and symmetrical limbs. Musculoskeletal: ROM WFL EXCEPT: decreased right shoulder, ankle. Increased tone Right UE MMT UE Sh Abd EE EF FABD WE HG Right 2-3 2-3 trace Left 5 5 5 5 5 5 MMT LE HF KE DF EHL Right 4 4 0 0 Left 5 5 5 5 Skin: Skin intact where visible to head, neck, and bilateral upper and lower extremities Psych: Calm, cooperative Results CBC & Chem 7: 05/13/24 10:00 05/13/24 10:00 Labs: Abnormal Lab Results - Last 24 Hours (Table) 05/12/24 05/12/24 05/13/24 Range/Units 16:55 20:11 06:11 MCV (80.0-100.0) fL Sodium (137-145) mmol/L BUN (7-17) mg/dL Creatinine (0.52-1.04) mg/dL Glucose (74-99) mg/dL POC Glucose (mg/dL) 202 H 296 H 181 H (70-110) mg/dL Total Protein (6.3-8.2) g/dL Albumin (3.5-5.0) g/dL 05/13/24 05/13/24 05/13/24 Range/Units 10:00 10:00 11:40 MCV 102.1 H (80.0-100.0) fL Sodium 134 L (137-145) mmol/L BUN 39 H (7-17) mg/dL Creatinine 1.98 H (0.52-1.04) mg/dL Glucose 364 H (74-99) mg/dL POC Glucose (mg/dL) 433 H (70-110) mg/dL Total Protein 4.7 L (6.3-8.2) g/dL Albumin 2.7 L (3.5-5.0) g/dL Assessment and Plan Assessment: # Debility with acute onset right sided weakness, suspect TIA -MRI reviewed no acute process -neurology following -Therapies # History of MS # History of CVA with right hand contracture and weakness # Fibromyalgia -cymbalta per DEC #Bipolar d/o -Abilify # Pain Management -lyrica per DEC # DVT Proph- Lovenox # Bowel/Bladder -per nursing protocol # Your medical dx and mangement Dispo: Patient is too functional for IPR, appears near here baseline; recommending [facility] for continued rehab. Patient seen and examined by Dr Kaufman, note prepped by Leslie Castillo PA-C Thank you for consulting our services
--- NOTE | 2024-05-13 14:07 | P.DS ---
Providers Date of admission: 05/09/24 21:08 Expected date of discharge: 05/13/24 Attending physician: Evin Sanchez Consults: 05/09/24 21:08 Consult Physician Routine Consulting Provider: Jeri Cyr Consult Reason/Comments: cva Do you want consulting provider notified?: Yes 05/10/24 08:53 Consult Physician Routine Consulting Provider: Iraida Gusman Consult Reason/Comments: CVA Do you want consulting provider notified?: Yes 05/10/24 14:19 Consult Physician Routine Consulting Provider: Clem Terry Consult Reason/Comments: ESRD, elevated kidney function Do you want consulting provider notified?: Yes 05/11/24 17:03 Consult Physician Routine Consulting Provider: Maria Eugenia Diana Consult Reason/Comments: CVA Do you want consulting provider notified?: Yes Primary care physician: Dagmar Hennessy [facility] Course: discharge diagnosis 1. Right sided numbness and tingling possible CVA 2. Recent admission for non-STEMI 3. History of CVA with right-sided weakness in 2017 4. History of MS patient reports he follows with neurology services 5. History of significant coronary artery disease with multiple stent placement 6. History of diabetes mellitus 7. History of essential hypertension 8. History of hyperlipidemia 9. History of peripheral neuropathy 10. History of peripheral arterial disease 11. History of ovarian cancer 12. History of bipolar disorder followed by psychiatry Hospital course This is a 53-year-old female patient of Dr. Lima who presented with concerns of right sided numbness. Patient reports that she was just watching TV yesterday when she became very weak and had tingling on her right arm and leg. Patient denies slurred speech or loss of consciousness. Patient does have a history of previous CVA with significant right-sided weakness. Patient reports that symptoms are improving but she still has some numbness to that right side patient was recently here and treated for non-STEMI. Patient reports she has a significant history of coronary artery disease with multiple stents, stroke, chronic kidney disease, diabetes mellitus on insulin pump, hypertension, hyperlipidemia, peripheral neuropathy, peripheral artery disease, ovarian cancer and ongoing tobacco use. Head CT was completed showing age-related atrophic and chronic small vessel ischemic changes without acute intracranial process seen at this time. CTA performed showing no significant abnormality. Chest x-ray completed showing mild diffuse airspace opacities in both lungs with central co nsidered may represent atelectasis and/or pneumonia versus mild pulmonary edema. Patient denies any respiratory symptoms will order 2 view chest x-ray to follow-up. At this time cardiology and neurology services will be consulted PT OT services consulted. Current vital signs Temp 98.1, heart rate 75, respiratory rate 18, blood pressure 137/71 with a pulse ox of 98% on 2 L On 05/11/2024 patient was seen and examined on the medical floor she is alert and oriented x 3 in no apparent distress she is still complaining of right-sided weakness and difficulty ambulating, otherwise she denies any complaints there is no fever or chills no headache or dizziness no chest pain no shortness of breath no cough no nausea or vomiting no abdominal pain no diarrhea and no urinary symptoms. Today white blood count is elevated up to 18,000, no clear source of infection is identified, chest x-ray is within normal limits, will obtain urine analysis. At this time we are still awaiting MRI of the brain and further recommendation from neurology, continue with physical therapy and Occupational Therapy, a consult was placed for inpatient rehab for potential admission. On 05/12/2024 patient was seen and examined on the medical floor, she is alert and oriented x 3 in no apparent distress, she is scheduled for a brain MRI today per neurology, patient is stating that she is claustrophobic and asking to be premedicated for the MRI, she will be given Ativan 1 mg IV prior to MRI, patient is still complaining of weakness and gait disturbance, otherwise she denies any complaints at this time, there is no fever or chills no headache or dizziness no chest pain no shortness of breath no cough no nausea or vomiting no abdominal pain no diarrhea no urinary symptoms, urine analysis reveals evidence of urinary tract infection, patient has elevated white blood count, she will be started on ceftriaxone 1 g IV daily, will continue to follow closely, awaiting further recommendations from neurology. on 05/13/2024 patient is alert and oriented 3. Patient anxious to be DC'd home. per neurology services MRI reviewed. Recommend dual antiplatelet therapy for 21 days and discontinue aspirin and continue Plavix therapy. Patient has been cleared per cardiology services. Patient to follow up with cardiology neurology and nephrology services. Patient denies chest pain or shortness of breath. Patient denies nausea vomiting or diarrhea. Denies urinary burning or frequency Patient Condition at Discharge: Stable Plan - Discharge Summary Discharge Rx Participant: Yes New Discharge Prescriptions: New hydrALAZINE HCL [Apresoline] 75 mg PO TID 30 Days #180 tab cefUROXime axetiL [Ceftin] 500 mg PO BID 7 Days #14 tab Clopidogrel [Plavix] 75 mg PO DAILY 30 Days #30 tab Continue Aspirin [Adult Low Dose Aspirin EC] 81 mg PO HS DULoxetine HCL [Cymbalta] 60 mg PO DAILY Isosorbide Mononitrate ER [Imdur] 60 mg PO DAILY Famotidine 20 mg PO BID PRN PRN Reason: acid reflux Nitroglycerin Sl Tabs [Nitrostat] 0.4 mg SL Q5M PRN PRN Reason: Chest Pain Pregabalin [Lyrica] 150 mg PO BID Atorvastatin [Lipitor] 40 mg PO HS amLODIPine [Norvasc] 10 mg PO DAILY ALPRAZolam [Xanax] 1 mg PO DAILY Ondansetron Odt [Zofran ODT] 8 mg PO Q12HR Empagliflozin [Jardiance] 10 mg PO DAILY Fenofibrate [Lofibra] 160 mg PO DAILY carvediloL [Coreg] 25 mg PO BID Budesonide/Formoterol Fumarate [Symbicort 160-4.5 Mcg Inhaler] 2 puff INHALATION RT-BID PRN PRN Reason: COPD Magnesium Oxide [Mag-Ox] 400 mg PO BID Sodium Bicarbonate 325 mg PO BID ALPRAZolam [Xanax] 2 mg PO HS ARIPiprazole [Abilify] 10 mg PO HS Discontinued hydrALAZINE HCL [Apresoline] 50 mg PO TID 30 Days #90 tab No Action INSULIN LISPRO (For Pump) [humaLOG (For Pump)] 0.01 units SQ-PUMP CONTINUOUS Cinacalcet [Sensipar] 30 mg PO MOTH Discharge Medication List Aspirin [Adult Low Dose Aspirin EC] 81 mg PO HS 11/26/17 [History] DULoxetine HCL [Cymbalta] 60 mg PO DAILY 08/25/18 [History] Isosorbide Mononitrate ER [Imdur] 60 mg PO DAILY 09/08/18 [History] Empagliflozin [Jardiance] 10 mg PO DAILY 10/06/22 [History] Famotidine 20 mg PO BID PRN 10/06/22 [History] Nitroglycerin Sl Tabs [Nitrostat] 0.4 mg SL Q5M PRN 10/06/22 [History] Fenofibrate [Lofibra] 160 mg PO DAILY 01/25/23 [History] Pregabalin [Lyrica] 150 mg PO BID 02/05/23 [History] carvediloL [Coreg] 25 mg PO BID 02/05/23 [History] Budesonide/Formoterol Fumarate [Symbicort 160-4.5 Mcg Inhaler] 2 puff INHALATION RT-BID PRN 07/17/23 [History] INSULIN LISPRO (For Pump) [humaLOG (For Pump)] 0.01 units SQ-PUMP CONTINUOUS 07/17/23 [History] Atorvastatin [Lipitor] 40 mg PO HS 12/11/23 [History] Magnesium Oxide [Mag-Ox] 400 mg PO BID 03/10/24 [History] ALPRAZolam [Xanax] 1 mg PO DAILY 03/28/24 [History] Cinacalcet [Sensipar] 30 mg PO MOTH 03/28/24 [History] Sodium Bicarbonate 325 mg PO BID 03/28/24 [History] amLODIPine [Norvasc] 10 mg PO DAILY 03/28/24 [History] ALPRAZolam [Xanax] 2 mg PO HS 05/04/24 [History] ARIPiprazole [Abilify] 10 mg PO HS 05/04/24 [History] Ondansetron Odt [Zofran ODT] 8 mg PO Q12HR 05/04/24 [History] Clopidogrel [Plavix] 75 mg PO DAILY 30 Days #30 tab 05/13/24 [Rx] cefUROXime axetiL [Ceftin] 500 mg PO BID 7 Days #14 tab 05/13/24 [Rx] hydrALAZINE HCL [Apresoline] 75 mg PO TID 30 Days #180 tab 05/13/24 [Rx] Follow up Appointment(s)/Referral(s): Dagmar Hennessy MD [Primary Care Provider] - 1-2 days Curt Jasso MD [STAFF PHYSICIAN] - 2 Weeks
[2024-05-13 14:15] VITALS: BP 153/79; PULSE 77
--- NOTE | 2024-05-15 15:21 | CDI ---
Documentation Clarification Form Date: 05/15/2024 02:52:39 PM From: Merry Anand Admit Date: 05/09/2024 09:08:00 PM Patient Name: Leticia Langley Visit Number: [id number] Discharge Date: 05/13/2024 04:02:00 PM ATTENTION: The Clinical Documentation Specialists (CDI) and [facility] Coding Staff appreciate your assistance in clarifying documentation. Please respond to the clarification below the line at the bottom and electronically sign. The CDI & [facility] Coding staff will review the response and follow-up if needed. Please note: Queries are made part of the Legal Health Record. If you have any questions, please contact the author of this message via ITS. Doctor/Provider: Evin Sanchez Conflicting documentation has been found in the medical record. As attending physician, please provide clarification regarding TIA vs CVA. Per your discharge summary 05/13/24 patients discharging diagnosis is right sided numbness and tingling possible CVA. Per Dr Myles medical consultation 05/13/24 patients diagnosis is debility with acute onset right sided weakness, suspect TIA MRI reviewed no acute process. Per Dr Cyr neurology consultation 05/10/24 assessment: patient with sudden onset of right-sided weakness. Likely the symptoms which are vastly resolved, are secondary to transient ischemic attack. Exacerbation of MS would be less likely, as symptoms typically do no occur suddenly and do not resolve this quickly. The patient has a significant past medical history which increases her risk for stroke. History/Risk Factors: patient is a 53 year old female with a history of a previous CVA with significant right sided weakness. She has had a recent NSTEMI, CAD, and multiple stents, CKD, DM on insulin pump, HTN, HLD, Peripheral neuropathy, PAD, ovarian cancer, and nicotine dependence. Clinical Indicators: patient presented with right sided numbness. States she was watching TV and she became very weak with tingling on her right arm and leg. Brain MRI: diffuse periventricular white mater ischemic-type changes with some mild atrophy. No acute intracranial process radiographically apparent. Follow up if clinically indicated. Neurology and cardiology consulted Treatment: DVT prophylaxis Lovenox. GI prophylaxis Protonix, high intensity statin, dual antiplatelet therapy for 21 days then discontinue aspirin and continue Plavix Please clarify which diagnosis is most appropriate: [ ] CVA [ xxx ] TIA [ ] Other (please specify) [ ] Unable to determine MTDD
== END 2024-05-13 16:02 | disposition home or self-care (01) | DRG 47 ==
LOC: EC 20:27 → 3SCARD 21:08
PROVIDERS: ADMIT Internal Medicine; ATTEND Internal Medicine
DX: G45.9 Transient cerebral ischemic attack, unspecified (principal); R29.708 NIHSS score 8; I25.10 Atherosclerotic heart disease of native coronary artery without angina pectoris; Z96.41 Presence of insulin pump (external) (internal); N39.0 Urinary tract infection, site not specified; N18.4 Chronic kidney disease, stage 4 (severe); M79.7 Fibromyalgia; I69.351 Hemiplegia and hemiparesis following cerebral infarction affecting right dominant side; I45.10 Unspecified right bundle-branch block; I12.9 Hypertensive chronic kidney disease with stage 1 through stage 4 chronic kidney disease, or unspecified chronic kidney disease; E11.22 Type 2 diabetes mellitus with diabetic chronic kidney disease; E11.65 Type 2 diabetes mellitus with hyperglycemia; G35 Multiple sclerosis; G25.81 Restless legs syndrome; F40.240 Claustrophobia; F31.9 Bipolar disorder, unspecified; Z79.4 Long term (current) use of insulin; E78.5 Hyperlipidemia, unspecified; E11.51 Type 2 diabetes mellitus with diabetic peripheral angiopathy without gangrene; D68.51 Activated protein C resistance; E87.20 Acidosis, unspecified; E83.52 Hypercalcemia; F41.9 Anxiety disorder, unspecified; E11.42 Type 2 diabetes mellitus with diabetic polyneuropathy; G47.33 Obstructive sleep apnea (adult) (pediatric); E66.9 Obesity, unspecified; M24.541 Contracture, right hand; Z68.36 Body mass index [BMI] 36.0-36.9, adult; Z71.3 Dietary counseling and surveillance; Z87.891 Personal history of nicotine dependence; Z28.310 Unvaccinated for COVID-19; Z88.2 Allergy status to sulfonamides; Z91.041 Radiographic dye allergy status; Z79.82 Long term (current) use of aspirin; Z79.899 Other long term (current) drug therapy; Z99.3 Dependence on wheelchair; Z95.5 Presence of coronary angioplasty implant and graft; Z85.43 Personal history of malignant neoplasm of ovary; Z79.84 Long term (current) use of oral hypoglycemic drugs; Z79.51 Long term (current) use of inhaled steroids; Z56.0 Unemployment, unspecified; I25.2 Old myocardial infarction; Z86.718 Personal history of other venous thrombosis and embolism
CPT/HCPCS: 36415; 70450; 70496; 70498; 70551; 71046; 80053; 80061; 81001; 82550; 83036; 84484; 85025; 85610; 85730; 87086; 93005; 93308; 94660; 96374; 96375; 99291

== ENCOUNTER 2024-05-20 08:54 | Observation (INO) | payer OTHER ==
[2024-05-20 09:05] LABS: Glucose,Whole Blood 202 mg/dL (70-110)
--- NOTE | 2024-05-20 09:15 | ED ---
General Adult HPI - General Chief complaint: Syncope Stated complaint: Syncope Time Seen by Provider: 05/20/24 08:56 Source: family Mode of arrival: wheelchair Limitations: no limitations - History of Present Illness Initial comments: Dictation was produced using [employer] dictation software. please excuse any grammatical, word or spelling errors. Chief Complaint: 53-year-old female syncopal episode History of Present Illness: Patient 53-year-old female multiple comorbidities states that she has had multiple strokes multiple heart attacks. Patient has right-sided residual deficits from her stroke. States that she went to her community health promoter office for a follow-up appointment after recent hospital admission for CVA. Patient passed out in the parking lot. did end up bringing her into the community health promoter office she told community health promoter that she did not feel well brought to the emergency department. Patient does not remember being brought to the ER. Since being in the ER she complains of some fatigue but denies any other complaints. The ROS documented in this emergency department record has been reviewed and confirmed by me. Those systems with pertinent positive or negative responses have been documented in the HPI. All other systems are other negative and/or noncontributory. - Related Data Home Medications Medication Instructions Recorded Confirmed Aspirin [Adult Low Dose Aspirin EC] 81 mg PO HS 11/26/17 05/10/24 DULoxetine HCL [Cymbalta] 60 mg PO DAILY 08/25/18 05/10/24 Isosorbide Mononitrate ER [Imdur] 60 mg PO DAILY 09/08/18 05/10/24 Empagliflozin [Jardiance] 10 mg PO DAILY 10/06/22 05/10/24 Famotidine 20 mg PO BID PRN 10/06/22 05/10/24 Nitroglycerin Sl Tabs [Nitrostat] 0.4 mg SL Q5M PRN 10/06/22 05/10/24 Fenofibrate [Lofibra] 160 mg PO DAILY 01/25/23 05/10/24 Pregabalin [Lyrica] 150 mg PO BID 02/05/23 05/10/24 carvediloL [Coreg] 25 mg PO BID 02/05/23 05/10/24 Budesonide/Formoterol Fumarate 2 puff INHALATION RT-BID PRN 07/17/23 05/10/24 [Symbicort 160-4.5 Mcg Inhaler] INSULIN LISPRO (For Pump) [humaLOG 0.01 units SQ-PUMP CONTINUOUS 07/17/23 05/10/24 (For Pump)] Atorvastatin [Lipitor] 40 mg PO HS 12/11/23 05/10/24 Magnesium Oxide [Mag-Ox] 400 mg PO BID 03/10/24 05/10/24 ALPRAZolam [Xanax] 1 mg PO DAILY 03/28/24 05/10/24 Cinacalcet [Sensipar] 30 mg PO MOTH 03/28/24 05/10/24 Sodium Bicarbonate 325 mg PO BID 03/28/24 05/10/24 amLODIPine [Norvasc] 10 mg PO DAILY 03/28/24 05/10/24 ALPRAZolam [Xanax] 2 mg PO HS 05/04/24 05/10/24 ARIPiprazole [Abilify] 10 mg PO HS 05/04/24 05/10/24 Ondansetron Odt [Zofran ODT] 8 mg PO Q12HR 05/04/24 05/10/24 Previous Rx's Medication Instructions Recorded Clopidogrel [Plavix] 75 mg PO DAILY 30 Days #30 tab 05/13/24 cefUROXime axetiL [Ceftin] 500 mg PO BID 7 Days #14 tab 05/13/24 hydrALAZINE HCL [Apresoline] 75 mg PO TID 30 Days #180 tab 05/13/24 Allergies Allergy/AdvReac Type Severity Reaction Status Date / Time Fish Containing Products Allergy Anaphylaxis Verified 05/10/24 10:36 Iodinated Contrast Media Allergy Anaphylaxis Verified 05/10/24 10:36 [Iodinated Contrast Media - IV Dye] Sulfa (Sulfonamide Allergy Anaphylaxis Verified 05/10/24 10:36 Antibiotics) sulfamethoxazole Allergy Anaphylaxis Verified 05/10/24 10:36 [From Septra] tree nut [Nut] Allergy Anaphylaxis Verified 05/10/24 10:36 trimethoprim [From Junra] Allergy Anaphylaxis Verified 05/10/24 10:36 Review of Systems ROS Statement: Those systems with pertinent positive or pertinent negative responses have been documented in the HPI. ROS Other: All systems not noted in ROS Statement are negative. 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 HAD OR 10/27/23 Last Myocardial Infarction Date:: LAST ONE 10/27/23 History of Any Multi-Drug Resistant Organisms: None Reported Past Surgical History: Section, Cholecystectomy, Heart Catheterization With Stent, Hysterectomy, Tubal Ligation, Uterine Ablation Additional Past Surgical History / Comment(s): vein stripping right leg, radio frequency ablation of right back-02/22/2015, four stents on 04/03/16 and one on march 05, ovaries removed, colonscopy- polyp removal Past Anesthesia/Blood Transfusion Reactions: Motion Sickness Additional Past Anesthesia/Blood Transfusion Reaction / Comment(s): mild claustrophobia Date of Last Stent Placement:: 04/03/16 Past Psychological History: Anxiety, Depression Smoking Status: Current every day smoker Past Alcohol Use History: None Reported Past Drug Use History: None Reported - Past Family History Father Family Medical History: Congestive Heart Failure (CHF), Coronary Artery Disease (CAD), Diabetes Mellitus Mother Family Medical History: Cancer, COPD, Hypertension, Respiratory Disorder Additional Family Medical History / Comment(s): emphysema, colon CA General Exam - General Exam Comments Initial Comments: PHYSICAL EXAM: General Impression: Alert and oriented x3, not in acute distress HEENT: Normocephalic atraumatic, extra-ocular movements intact, pupils equal and reactive to light bilaterally, mucous membranes moist. Cardiovascular: Heart regular rate and rhythm Chest: Able to complete full sentences, no retractions, no tachypnea Abdomen: abdomen soft, non-tender, non-distended, no organomegaly Musculoskeletal: Pulses present and equal in all extremities, no peripheral edema Motor: no focal deficits noted Neurological: CN II-XII grossly intact, weakness to the right arm and right leg, no sensory deficits Skin: Intact with no visualized rashes Psych: Normal affect and mood Limitations: no limitations Course Vital Signs 05/20/24 05/20/24 05/20/24 09:04 10:08 11:15 Temperature 97.8 F Pulse Rate 68 68 73 Respiratory 18 17 16 Rate Blood Pressure 103/65 140/61 146/70 O2 Sat by Pulse 99 94 L 94 L Oximetry 05/20/24 11:18 Temperature Pulse Rate Respiratory Rate Blood Pressure O2 Sat by Pulse 97 Oximetry EKG Findings - EKG Comments: EKG Findings:: My EKG interpretation: Ventricular rate 67, sinus rhythm, right bundle branch block,. 154, cures 172, QTc 484. No ND prolongation, no QTC prolongation, no ST or T-wave changes noted. EKG compared to May 10, 2024 showing no changes. Overall, this EKG is unremarkable Medical Decision Making - Medical Decision Making Was pt. sent in by a medical professional or institution (, [facility], [facility], urgent care, hospital, or [facility]...) When possible be specific @ -Came from cardiology office Did you speak to anyone other than the patient for history (EMS, parent, family, police, friend...)? What history was obtained from this source @ -No Did you review nursing and triage notes (agree or disagree)? Why? @ -I reviewed and agree with nursing and triage notes Were old charts reviewed (outside hosp., previous admission, EMS record, old EKG, old radiological studies, urgent care reports/EKG's, [facility] records)? Report findings @ -No old charts were reviewed Differential Diagnosis (chest pain, altered mental status, abdominal pain women, abdominal pain men, vaginal bleeding, musculoskeletal, weakness, fever, dyspnea, syncope, headache, dizziness, GI bleed, back pain, seizure, CVA, palpatations, mental health)? @ -Differential Syncope: Valvular disease, hypertrophic cardiomyopathy, pulmonary embolism, tamponade, tachycardia, bradycardia, OR, hypovolemia, hemorrhage, dissection, anemia, intracranial hemorrhage, seizure, hypoglycemia, carbon monoxide poisoning, this is not meant to be an all-inclusive list. EKG interpreted by me (3pts min.). @ -See above X-rays interpreted by me (1pt min.). @ -None done CT interpreted by me (1pt min.). @ -None done U/S interpreted by me (1pt. min.). @ -None done What testing was considered but not performed or refused? (CT, X-rays, U/S, labs)? Why? @ -None What meds were considered but not given or refused? Why? @ -None Was smoking cessation discussed for >3mins.? @ -No Were there social determinants of health that impacted care today? How? (Homelessness, low income, unemployed, alcoholism, drug addiction, transportation, low edu. Level, literacy, decrease access to med. care, [facility], rehab)? @ -No Was there de-escalation of care discussed even if they declined (Discuss DNR or withdrawal of care, Hospice)? DNR status @ -No What co-morbidities impacted this encounter? (DM, HTN, Smoking, COPD, CAD, Cancer, CVA, ARF, Chemo, Hep., AIDS, mental health diagnosis, sleep apnea, morbid obesity)? @ -Cardiac disease, stroke Was patient admitted / discharged? Hospital course, mention meds given and route, prescriptions, significant lab abnormalities, going to OR and other perti nent info. @ -54-year-old female presents emergency department syncopal episode. Patient has extremely high risk with extensive cardiac history. Vital signs upon arrival are within acceptable limits. EKG is unremarkable. Patient asymptomatic well-appearing at the bedside. Laboratory evaluation obtained. Mild stress leukocytosis. Troponin 0.122 which is above her usual baseline. Patient not complaining of any ACS type symptoms. Given patient's high risk features along with elevated troponin concern for cardiac syncope. Patient will be admitted observation consultation to cardiology. Did you discuss the management of the patient with other professionals (professionals i.e. , PA, [facility], lab, RT, psych nurse, social media intern, flagger, teacher, naval gunfire liaison officer, caseworker protective services)? Give summary @ -Case discussed with hospitalist for admission Was critical care preformed (if so, how long)? @ -No Undiagnosed new problem with uncertain prognosis? @ -No Drug Therapy requiring intensive monitoring for toxicity (Heparin, Nitro, Insulin, Cardizem)? @ -No Were any procedures done? @ -No Diagnosis/symptom? Acute, or Chronic, or Acute on Chronic? Uncomplicated (without systemic symptoms) or Complicated (systemic symptoms)? @ -Syncope Side effects of treatment? @ -No Exacerbation, Progression, or Severe Exacerbation? @ -No Poses a threat to life or bodily function? How? (Chest pain, USA, OR, pneumonia, PE, COPD, DKA, ARF, appy, cholecystitis, CVA, Diverticulitis, Homicidal, Suicid al, threat to staff... and all critical care pts) @ -yes - Lab Data Result diagrams: 05/20/24 09:22 05/20/24 09:22 Lab Results 05/20/24 05/20/24 05/20/24 Range/Units 09:03 09:22 09:22 WBC 12.4 H (3.8-10.6) k/uL RBC 4.22 (3.80-5.40) m/uL Hgb 13.0 (11.4-16.0) gm/dL Hct 40.6 (34.0-46.0) % MCV 96.2 D (80.0-100.0) fL MCH 30.8 (25.0-35.0) pg MCHC 32.0 (31.0-37.0) g/dL RDW 14.1 (11.5-15.5) % Plt Count 270 (150-450) k/uL MPV 10.0 Neutrophils % 75 % Lymphocytes % 18 % Monocytes % 5 % Eosinophils % 1 % Basophils % 0 % Neutrophils # 9.4 H (1.3-7.7) k/uL Lymphocytes # 2.2 (1.0-4.8) k/uL Monocytes # 0.6 (0-1.0) k/uL Eosinophils # 0.2 (0-0.7) k/uL Basophils # 0.0 (0-0.2) k/uL Sodium 137 (137-145) mmol/L Potassium 4.2 (3.5-5.1) mmol/L Chloride 113 H (98-107) mmol/L Carbon Dioxide 19 L (22-30) mmol/L Anion Gap 5 mmol/L BUN 20 H (7-17) mg/dL Creatinine 1.90 H (0.52-1.04) mg/dL Est GFR (CKD-EPI)AfAm 35 (>60 ml/min/1.73 sqM) Est GFR (CKD-EPI)NonAf 30 (>60 ml/min/1.73 sqM) Glucose 199 H (74-99) mg/dL POC Glucose (mg/dL) 202 H (70-110) mg/dL POC Glu Honing Machine Operator ID Alexandra Thayer Calcium 9.9 (8.4-10.2) mg/dL Troponin I (0.000-0.034) ng/mL 05/20/24 Range/Units 09:22 WBC (3.8-10.6) k/uL RBC (3.80-5.40) m/uL Hgb (11.4-16.0) gm/dL Hct (34.0-46.0) % MCV (80.0-100.0) fL MCH (25.0-35.0) pg MCHC (31.0-37.0) g/dL RDW (11.5-15.5) % Plt Count (150-450) k/uL MPV Neutrophils % % Lymphocytes % % Monocytes % % Eosinophils % % Basophils % % Neutrophils # (1.3-7.7) k/uL Lymphocytes # (1.0-4.8) k/uL Monocytes # (0-1.0) k/uL Eosinophils # (0-0.7) k/uL Basophils # (0-0.2) k/uL Sodium (137-145) mmol/L Potassium (3.5-5.1) mmol/L Chloride (98-107) mmol/L Carbon Dioxide (22-30) mmol/L Anion Gap mmol/L BUN (7-17) mg/dL Creatinine (0.52-1.04) mg/dL Est GFR (CKD-EPI)AfAm (>60 ml/min/1.73 sqM) Est GFR (CKD-EPI)NonAf (>60 ml/min/1.73 sqM) Glucose (74-99) mg/dL POC Glucose (mg/dL) (70-110) mg/dL POC Glu Honing Machine Operator ID Calcium (8.4-10.2) mg/dL Troponin I 0.122 H* (0.000-0.034) ng/mL Disposition Clinical Impression: Syncope Disposition: ADMITTED IP TO THIS HOSP Condition: Fair Referrals: Dagmar Hennessy MD [Primary Care Provider] - 1-2 days Decision Time: 11:41
[2024-05-20 10:08] LABS: Basophils % (A) 0 %; Eosinophils # (A) 0.2 k/uL (0-0.7); Eosinophils % (A) 1 %; HCT 40.6 % (34.0-46.0); Lymphocytes # (A) 2.2 k/uL (1.0-4.8); Lymphocytes % (A) 18 %; MCH 30.8 pg (25.0-35.0); Monocytes # (A) 0.6 k/uL (0-1.0); Monocytes % (A) 5 %; Neutrophils # (A) 9.4 k/uL (1.3-7.7); Neutrophils % (A) 75 %; Platelet Count 270 k/uL (150-450); RBC 4.22 m/uL (3.80-5.40); RDW 14.1 % (11.5-15.5); WBC 12.4 k/uL (3.8-10.6)
[2024-05-20 10:13] LABS: MCV 96.2 fL (80.0-100.0)
[2024-05-20 10:24] LABS: African American GFR (CKD) 35 (>60 ml/min/1.73 sqM); Anion Gap 5 mmol/L; Blood Urea Nitrogen 20 mg/dL (7-17); Calcium 9.9 mg/dL (8.4-10.2); Carbon Dioxide 19 mmol/L (22-30); Chloride 113 mmol/L (98-107); Glucose 199 mg/dL (74-99); Non-African American GFR(CKD) 30 (>60 ml/min/1.73 sqM); Sodium 137 mmol/L (137-145)
[2024-05-20 10:29] LABS: Potassium 4.2 mmol/L (3.5-5.1)
[2024-05-20] MEDS: ASPIRIN 81 MG PO STA (11:16)
[2024-05-20] MEDS ORDERED: FAMOTIDINE 20 MG TAB PO PRN (13:39)
[2024-05-20] MEDS ORDERED: DEXTROSE 50% SYRINGE 50 ML IVP PRN ×2 (13:58)
--- NOTE | 2024-05-20 14:07 | P.HPIM ---
History of Present Illness H&P Date: 05/20/24 This is a 53-year-old female patient who presented with concerns of syncopal episode. 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 Patient has an extensive medical history including CVA with right-sided deficit, multiple stent placement, diabetes mellitus, fibromyalgia, hyperlipidemia, essential hypertension, anxiety, depression, nicotine dependence. Lab work revealing creatinine 0.90 bun 20 WBC 12.4 troponin 0.122 and 0.096. Over the past month patient had multiple admissions for non-STEMI and possible CVA. At this time patient will be admitted cardiology services consulted. Current vital signs Temp 99.0, heart rate 85, respiratory rate 18, blood pressure 138/71 with a pulse ox of 96% on room air. 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 HAD AL 10/27/23 Last Myocardial Infarction Date:: LAST ONE 10/27/23 History of Any Multi-Drug Resistant Organisms: None Reported Past Surgical History: Section, Cholecystectomy, Heart Catheterization With Stent, Hysterectomy, Tubal Ligation, Uterine Ablation Additional Past Surgical History / Comment(s): vein stripping right leg, radio frequency ablation of right back-02/22/2015, four stents on 04/03/16 and one on march 05, ovaries removed, colonscopy- polyp removal Past Anesthesia/Blood Transfusion Reactions: Motion Sickness Additional Past Anesthesia/Blood Transfusion Reaction / Comment(s): mild claustrophobia Date of Last Stent Placement:: 04/03/16 Past Psychological History: Anxiety, Depression Smoking Status: Current every day smoker Past Alcohol Use History: None Reported Past Drug Use History: None Reported - Past Family History Father Family Medical History: Congestive Heart Failure (CHF), Coronary Artery Disease (CAD), Diabetes Mellitus Mother Family Medical History: Cancer, COPD, Hypertension, Respiratory Disorder Additional Family Medical History / Comment(s): emphysema, colon CA Medications and Allergies Home Medications Medication Instructions Recorded Confirmed Type Aspirin [Adult Low Dose Aspirin EC] 81 mg PO HS 11/26/17 05/20/24 History DULoxetine HCL [Cymbalta] 60 mg PO DAILY 08/25/18 05/20/24 History Isosorbide Mononitrate ER [Imdur] 60 mg PO DAILY 09/08/18 05/20/24 History Empagliflozin [Jardiance] 10 mg PO DAILY 10/06/22 05/20/24 History Famotidine 20 mg PO BID PRN 10/06/22 05/20/24 History Nitroglycerin Sl Tabs [Nitrostat] 0.4 mg SL Q5M PRN 10/06/22 05/20/24 History Fenofibrate [Lofibra] 160 mg PO DAILY 01/25/23 05/20/24 History Pregabalin [Lyrica] 150 mg PO BID 02/05/23 05/20/24 History carvediloL [Coreg] 25 mg PO BID 02/05/23 05/20/24 History Budesonide/Formoterol Fumarate 2 puff INHALATION RT-BID PRN 07/17/23 05/20/24 History [Symbicort 160-4.5 Mcg Inhaler] INSULIN LISPRO (For Pump) [humaLOG 0.01 units SQ-PUMP CONTINUOUS 07/17/23 05/20/24 History (For Pump)] Atorvastatin [Lipitor] 40 mg PO HS 12/11/23 05/20/24 History Magnesium Oxide [Mag-Ox] 400 mg PO BID 03/10/24 05/20/24 History ALPRAZolam [Xanax] 1 mg PO DAILY 03/28/24 05/20/24 History Cinacalcet [Sensipar] 30 mg PO MOTH 03/28/24 05/20/24 History Sodium Bicarbonate 325 mg PO BID 03/28/24 05/20/24 History amLODIPine [Norvasc] 10 mg PO DAILY 03/28/24 05/20/24 History ALPRAZolam [Xanax] 2 mg PO HS 05/04/24 05/20/24 History ARIPiprazole [Abilify] 10 mg PO HS 05/04/24 05/20/24 History Ondansetron Odt [Zofran ODT] 8 mg PO Q12HR 05/04/24 05/20/24 History Clopidogrel [Plavix] 75 mg PO DAILY 30 Days #30 tab 05/13/24 05/20/24 Rx cefUROXime axetiL [Ceftin] 500 mg PO BID 7 Days #14 tab 05/13/24 05/20/24 Rx hydrALAZINE HCL [Apresoline] 75 mg PO TID 30 Days #180 tab 05/13/24 05/20/24 Rx Allergies Allergy/AdvReac Type Severity Reaction Status Date / Time Fish Containing Products Allergy Anaphylaxis Verified 05/20/24 12:06 Iodinated Contrast Media Allergy Anaphylaxis Verified 05/20/24 12:06 [Iodinated Contrast Media - IV Dye] Sulfa (Sulfonamide Allergy Anaphylaxis Verified 05/20/24 12:06 Antibiotics) sulfamethoxazole Allergy Anaphylaxis Verified 05/20/24 12:06 [From Junra] tree nut [Nut] Allergy Anaphylaxis Verified 05/20/24 12:06 trimethoprim [From ] Allergy Anaphylaxis Verified 05/20/24 12:06 Physical Exam Vitals: Vital Signs Temp Pulse Pulse Resp BP BP BP 05/20/24 13:35 99.0 F 72 18 160/73 05/20/24 12:49 97.6 F 85 18 05/20/24 12:46 147/73 05/20/24 12:43 147/70 05/20/24 11:18 05/20/24 11:15 73 16 146/70 05/20/24 10:08 68 17 140/61 05/20/24 09:04 97.8 F 68 18 103/65 BP Pulse Ox 05/20/24 13:35 98 05/20/24 12:49 138/71 96 05/20/24 12:46 05/20/24 12:43 05/20/24 11:18 97 05/20/24 11:15 94 L 05/20/24 10:08 94 L 05/20/24 09:04 99 Intake and Output 05/19/24 05/20/24 05/20/24 22:59 06:59 14:59 Other: Weight 98.883 kg Head normocephalic Neck supple Lungs clear to auscultation bilaterally no wheezing or crackles Heart regular rate and rhythm S1-S2, no rub or gallop Abdomen is soft nontender nondistended positive bowel sounds no hepatosplenomegaly Extremities no edema Neuro alert and orientated to 3 Results CBC & Chem 7: 05/20/24 09:22 05/20/24 09:22 Labs: Abnormal Lab Results - Last 24 Hours (Table) 05/20/24 05/20/24 05/20/24 Range/Units 09:03 09:22 09:22 WBC 12.4 H (3.8-10.6) k/uL Neutrophils # 9.4 H (1.3-7.7) k/uL Chloride 113 H (98-107) mmol/L Carbon Dioxide 19 L (22-30) mmol/L BUN 20 H (7-17) mg/dL Creatinine 1.90 H (0.52-1.04) mg/dL Glucose 199 H (74-99) mg/dL POC Glucose (mg/dL) 202 H (70-110) mg/dL Troponin I (0.000-0.034) ng/mL 05/20/24 05/20/24 Range/Units 09:22 12:13 WBC (3.8-10.6) k/uL Neutrophils # (1.3-7.7) k/uL Chloride (98-107) mmol/L Carbon Dioxide (22-30) mmol/L BUN (7-17) mg/dL Creatinine (0.52-1.04) mg/dL Glucose (74-99) mg/dL POC Glucose (mg/dL) (70-110) mg/dL Troponin I 0.122 H* 0.096 H* (0.000-0.034) ng/mL Assessment and Plan Assessment: 1. Syncopal episode 2. Elevated troponins 3. History of CAD with recent admission for non-STEMI 4. History of CVA with right-sided weakness in 2017 5. History of MS patient reports she follows with neurology services 6. History of diabetes mellitus. 7. History of hyperlipidemia 8. History of peripheral neuropathy 9. History of ovarian cancer 10. History of bipolar disorder At this time patient will be admitted Cardiology services consulted Urinary analysis ordered Repeat labs ordered Time with Patient: Greater than 30 (Greater than 60% of the total time spent in counseling and coordination of care)
[2024-05-20 15:04] LABS: Basophils # (A) 0.1 k/uL (0-0.2); Basophils % (A) 1 %; Eosinophils # (A) 0.1 k/uL (0-0.7); Eosinophils % (A) 1 %; HCT 39.7 % (34.0-46.0); HGB 12.8 gm/dL (11.4-16.0); Lymphocytes # (A) 2.3 k/uL (1.0-4.8); Lymphocytes % (A) 23 %; MCH 31.1 pg (25.0-35.0); MCHC 32.2 g/dL (31.0-37.0); MCV 96.6 fL (80.0-100.0); Mean Platelet Volume 10.7; Monocytes # (A) 0.4 k/uL (0-1.0); Monocytes % (A) 4 %; Neutrophils % (A) 70 %; Platelet Count 266 k/uL (150-450); RBC 4.11 m/uL (3.80-5.40); RDW 14.1 % (11.5-15.5)
[2024-05-20 15:19] LABS: Partial Thromboplastin Time 26.9 sec (22.0-30.0); Prothrombin Time 10.8 sec (10.0-12.5)
[2024-05-20] MEDS: HEPARIN SOD,PORK IN 0.45% NACL 25,000 UNIT in 0.45% NACL 1 250ML.BAG IV SCH (15:41)
[2024-05-20] MEDS: hydrALAZINE HCL 25 MG TAB PO SCH (15:42)
[2024-05-20 16:46] LABS: Glucose,Whole Blood 427 mg/dL (70-110)
[2024-05-20] MEDS: INSULIN ASPART (NovoLOG) 100 UNIT/ML VIAL SQ SCH (17:02)
[2024-05-20] MEDS: carvediloL 12.5 MG TAB PO SCH (17:02)
[2024-05-20] MEDS: INSULIN ASPART (NovoLOG) 100 UNIT/ML VIAL SQ ONE (17:17)
[2024-05-20 20:10] LABS: Glucose,Whole Blood 384 mg/dL (70-110)
[2024-05-20] MEDS ORDERED: NON FORMULARY DRUG (Aspirin [Adult Low Dose Aspirin Ec] 81 MG Tablet.Dr) PO SCH (21:00)
[2024-05-20] MEDS: ATORVASTATIN 40 MG TAB PO SCH (21:05)
[2024-05-20] MEDS: ONDANSETRON ODT 8 MG TAB.RAPDIS PO SCH (21:06)
[2024-05-20] MEDS: MAGNESIUM OXIDE 400 MG TAB PO SCH (21:06)
[2024-05-20] MEDS: ALPRAZolam 1 MG TAB PO SCH (21:06)
[2024-05-20] MEDS: PREGABALIN 75 MG CAP PO SCH (21:06)
[2024-05-20] MEDS: ARIPiprazole 10 MG TAB PO SCH (21:07)
[2024-05-20] MEDS: NITROGLYCERIN SL TABS 0.4 MG TAB SUBLINGUAL PRN (21:09)
[2024-05-20] MEDS: SYMBICORT 160-4.5 MCG INHALER INHALATION SCH (21:17)
[2024-05-20] MEDS: HEPARIN SODIUM 1,000 UN/ML (10ML VL) IV PRN (21:20)
[2024-05-20 21:39] LABS: Appearance,Urine Clear (Clear); Bilirubin,Urine Negative (Negative); Blood,Urine Negative (Negative); Color,Urine Colorless; Glucose,Urine (UA) 4+ (Negative); Ketones,Urine Negative (Negative); Leukocyte Esterase,Urine Negative (Negative); Mucus,Urine Rare /hpf; Nitrite,Urine Negative (Negative); PH, Urine 6.5 (5.0-8.0); Protein,Urine 3+ (Negative); RBC,Urine <1 /hpf (0-5); Specific Gravity,Urine 1.024 (1.001-1.035); Squamous Epithelial Cell,Urine <1 /hpf (0-4); Urobilinogen,Urine <2.0 mg/dL (<2.0); WBC,Urine 1 /hpf (0-5)
[2024-05-21 05:10] LABS: INR 0.9 (<1.2); Partial Thromboplastin Time 36.3 sec (22.0-30.0); Prothrombin Time 10.1 sec (10.0-12.5)
[2024-05-21 05:20] LABS: Basophils # (A) 0.1 k/uL (0-0.2); Basophils % (A) 1 %; Eosinophils # (A) 0.1 k/uL (0-0.7); Eosinophils % (A) 2 %; HCT 36.2 % (34.0-46.0); HGB 11.9 gm/dL (11.4-16.0); Hypochromasia Slight; Lymphocytes # (A) 2.4 k/uL (1.0-4.8); Lymphocytes % (A) 29 %; MCH 31.9 pg (25.0-35.0); MCHC 32.9 g/dL (31.0-37.0); MCV 96.9 fL (80.0-100.0); Mean Platelet Volume 9.4; Monocytes # (A) 0.4 k/uL (0-1.0); Monocytes % (A) 4 %; Neutrophils # (A) 5.4 k/uL (1.3-7.7); Neutrophils % (A) 63 %; Platelet Count 267 k/uL (150-450); RBC 3.73 m/uL (3.80-5.40); RDW 14.1 % (11.5-15.5); WBC 8.5 k/uL (3.8-10.6)
[2024-05-21 05:27] LABS: ALT 14 U/L (4-34); AST 16 U/L (14-36); African American GFR (CKD) 32 (>60 ml/min/1.73 sqM); Albumin 2.7 g/dL (3.5-5.0); Alkaline Phosphatase 122 U/L (38-126); Anion Gap 5 mmol/L; Blood Urea Nitrogen 25 mg/dL (7-17); Calcium 9.5 mg/dL (8.4-10.2); Carbon Dioxide 20 mmol/L (22-30); Chloride 112 mmol/L (98-107); Glucose 246 mg/dL (74-99); Non-African American GFR(CKD) 28 (>60 ml/min/1.73 sqM); Potassium 3.9 mmol/L (3.5-5.1); Sodium 137 mmol/L (137-145); Total Bilirubin 0.2 mg/dL (0.2-1.3); Total Protein 4.8 g/dL (6.3-8.2)
[2024-05-21 05:52] LABS: Glucose,Whole Blood 303 mg/dL (70-110)
[2024-05-21] MEDS ORDERED: ASPIRIN 325 MG TAB PO SCH (09:00)
[2024-05-21 09:07] VITALS: TEMP 98
[2024-05-21] MEDS: ISOSORBIDE MONONITRATE ER 60 MG TAB.ER.24H PO SCH (09:07)
[2024-05-21] MEDS: CLOPIDOGREL 75 MG TAB PO SCH (09:07)
[2024-05-21] MEDS: ALPRAZolam 1 MG TAB PO SCH (09:07)
[2024-05-21] MEDS: ASPIRIN 81 MG PO SCH (09:07)
[2024-05-21] MEDS: FENOFIBRATE 160 MG TAB PO SCH (09:07)
[2024-05-21] MEDS: DAPAGLIFLOZIN PROPANEDIOL 5 MG TABLET PO SCH (09:07)
[2024-05-21] MEDS: amLODIPine 10 MG TAB PO SCH (09:08)
[2024-05-21] MEDS: DULoxetine HCL 60 MG CAPSULE.DR PO SCH (09:08)
[2024-05-21] MEDS: CINACALCET 30 MG TAB PO SCH (09:08)
--- NOTE | 2024-05-21 10:41 | P.PN ---
Subjective Progress Note Date: 05/21/24 This is a 53-year-old female patient who presented with concerns of syncopal episode. Patient reports that she [facility] shift [facility] when she apparently passed out in the parking lot patient was able to go into cardiac office but was told to go to ER for further evaluation. Patient has an extensive medical history including CVA with right-sided deficit, multiple stent placement, diabetes mellitus, fibromyalgia, hyperlipidemia, essential hypertension, anxiety, depression, nicotine dependence. Lab work revealing creatinine 0.90 bun 20 WBC 12.4 troponin 0.122 and 0.096. Over the past month patient had multiple admissions for non-STEMI and possible CVA. At this time patient will be admitted cardiology services consulted. Current vital signs Temp 99.0, heart rate 85, respiratory rate 18, blood pressure 138/71 with a pulse ox of 96% on room air. On 05/21/2024 patient is alert and oriented 3. Patient reports improvement from yesterday. 2-D echo has been ordered per cardiology. Discussed case with cardiology services will keep patient for another 24-hour's with DC plan of about monitor.current vital signs temp 98.0, respiratory rate 17, heart rate 64, blood pressure 158/71 with pulse ox 96% on room air. Patient denies chest pain or shortness of breath. Patient denies nausea vomiting or diarrhea. Patient denies any urinary burning Objective - Vital Signs Vital signs: Vital Signs Temp 98.0 F 05/21/24 09:06 Pulse 64 05/21/24 09:06 Resp 16 05/21/24 09:06 BP 158/71 05/21/24 09:06 Pulse Ox 96 05/21/24 09:06 FiO2 Intake & Output 05/20/24 05/21/24 05/21/24 18:59 06:59 18:59 Intake Total 192.684 0 Output Total 301 Balance -108.316 0 Weight 98.883 kg Intake: IV 20 Invasive Line 1 20 Intake, IV Titration 172.684 Amount Heparin Sod,Pork in 0.45% 172.684 NaCl 25,000 unit In 0.45 % NaCl 1 250ml.bag @ 10. 113 UNITS/KG/HR 10 mls/hr IV .Q24H [facility] Rx#: [id number] Oral 0 Output: Urine 301 Other: Voiding Method Toilet Toilet Toilet - Exam Head normocephalic Neck supple Lungs clear to auscultation bilaterally no wheezing or crackles Heart regular rate and rhythm S1-S2, no rub or gallop Abdomen is soft nontender nondistended positive bowel sounds no hepatosplenomegaly Extremities no edema Neuro alert and orientated to 3 - Labs CBC & Chem 7: 05/21/24 04:43 05/21/24 04:43 Labs: Abnormal Lab Results - Last 24 Hours (Table) 05/20/24 05/20/24 05/20/24 Range/Units 09:22 12:13 14:53 RBC (3.80-5.40) m/uL APTT (22.0-30.0) sec Chloride (98-107) mmol/L Carbon Dioxide (22-30) mmol/L BUN (7-17) mg/dL Creatinine (0.52-1.04) mg/dL Glucose (74-99) mg/dL POC Glucose (mg/dL) (70-110) mg/dL Hemoglobin A1c (<=6.0) % Troponin I 0.122 H* 0.096 H* 0.098 H* (0.000-0.034) ng/mL Total Protein (6.3-8.2) g/dL Albumin (3.5-5.0) g/dL Urine Protein (Negative) Urine Glucose (UA) (Negative) Urine Mucus (None) /hpf 05/20/24 05/20/24 05/20/24 Range/Units 16:44 20:08 21:27 RBC (3.80-5.40) m/uL APTT (22.0-30.0) sec Chloride (98-107) mmol/L Carbon Dioxide (22-30) mmol/L BUN (7-17) mg/dL Creatinine (0.52-1.04) mg/dL Glucose (74-99) mg/dL POC Glucose (mg/dL) 427 H 384 H (70-110) mg/dL Hemoglobin A1c (<=6.0) % Troponin I (0.000-0.034) ng/mL Total Protein (6.3-8.2) g/dL Albumin (3.5-5.0) g/dL Urine Protein 3+ H (Negative) Urine Glucose (UA) 4+ H (Negative) Urine Mucus Rare H (None) /hpf 05/21/24 05/21/24 05/21/24 Range/Units 04:43 04:43 04:43 RBC 3.73 L (3.80-5.40) m/uL APTT (22.0-30.0) sec Chloride 112 H (98-107) mmol/L Carbon Dioxide 20 L (22-30) mmol/L BUN 25 H (7-17) mg/dL Creatinine 2.02 H (0.52-1.04) mg/dL Glucose 246 H (74-99) mg/dL POC Glucose (mg/dL) (70-110) mg/dL Hemoglobin A1c 10.6 H (<=6.0) % Troponin I (0.000-0.034) ng/mL Total Protein 4.8 L (6.3-8.2) g/dL Albumin 2.7 L (3.5-5.0) g/dL Urine Protein (Negative) Urine Glucose (UA) (Negative) Urine Mucus (None) /hpf 05/21/24 05/21/24 Range/Units 04:43 05:50 RBC (3.80-5.40) m/uL APTT 36.3 H (22.0-30.0) sec Chloride (98-107) mmol/L Carbon Dioxide (22-30) mmol/L BUN (7-17) mg/dL Creatinine (0.52-1.04) mg/dL Glucose (74-99) mg/dL POC Glucose (mg/dL) 303 H (70-110) mg/dL Hemoglobin A1c (<=6.0) % Troponin I (0.000-0.034) ng/mL Total Protein (6.3-8.2) g/dL Albumin (3.5-5.0) g/dL Urine Protein (Negative) Urine Glucose (UA) (Negative) Urine Mucus (None) /hpf Assessment and Plan Assessment: 1. Syncopal episode 2. Elevated troponins 3. History of CAD with recent admission for non-STEMI 4. History of CVA with right-sided weakness in 2017 5. History of MS patient reports she follows with neurology services 6. History of diabetes mellitus. 7. History of hyperlipidemia 8. History of peripheral neuropathy 9. History of ovarian cancer 10. History of bipolar disorder At this time patient will be admitted Cardiology services consulted Urinary analysis ordered Repeat labs ordered
[2024-05-21 10:51] LABS: Chol/HDL Ratio 6.13 Ratio
--- NOTE | 2024-05-21 10:51 | P.CRDCN ---
History of Present Illness History of present illness: HISTORY OF PRESENT ILLNESS: This is a 53-year-old female with a past medical history significant for coronary artery disease with previous stenting, hypertension, hyperlipidemia, diabetes, chronic kidney disease, and obesity. Patient follows in the office with Dr. Jasso. We have been asked to see the patient in consultation for elevated troponin and syncope. Patient examined at the bedside. Patient was recently hospitalized secondary to right-sided weakness. She underwent MRI whic h was negative for CVA. Neurology evaluated the patient and felt her symptoms were secondary to TIA. The patient was discharged home. She went to the cardiology office yesterday for post hospital follow-up. While she was sitting in the exam room waiting for the financial services consultant, she began to complain of dizziness and nausea and she was directed to come to the emergency room for further evaluation. Patient states she was driven over to the hospital and she believes she had a syncopal episode in her car. She reports having significant abdominal pain yesterday as well. She currently denies any chest pain or pressure. Denies any shortness of breath. Vital signs are stable. DIAGNOSTICS: - EKG reveals sinus mechanism with right bundle branch block - Laboratory data: WBC 8.5. Hemoglobin 11.9. Platelet count 267. Sodium 137. Potassium 3.9. BUN 25. Creatinine 2.02. - Current home cardiac medications include hydralazine 75 mg 3 times a day, carvedilol 25 mg twice a day, Imdur 60 mg daily, Jardiance 10 mg daily, Plavix 75 mg daily, Lipitor 40 mg at night, aspirin 81 mg daily. - Most recent echocardiogram obtained on May 04, 2024 revealed ejection fraction 40 to 45% with trace MR - Repeat echocardiogram performed on May 11, 2024 revealed ejection fraction 55 to 60% with no obvious regional wall motion abnormalities, negative bubble study - Cardiac catheterization history: November 2023 revealing 60% mid RCA stenosis involving the previously stented segment. Patent stents within the RCA, LAD, and diagonal with moderate nonobstructive disease involving the LAD and the ostial portion of the diagonal branch. Patient underwent IFR of mid RCA by Dr. Mckeon which came to be an abnormal at 0.84. Given long area of prior stenting with increased long-term risk of restenosis, consider medical therapy. If patient having consistent angina would recommend staged PCI of RCA REVIEW OF SYSTEMS: At the time of my exam: CONSTITUTIONAL: Denies fever or chills. HEENT: Denies blurred vision, vision changes, or eye pain. Denies hemoptysis CARDIOVASCULAR: Denies chest pain. Denies orthopnea. Denies PND. Denies palpitations RESPIRATORY: Denies shortness of breath. GASTROINTESTINAL: Denies abdominal pain. Denies nausea or vomiting. HEMATOLOGIC: Denies bleeding disorders. GENITOURINARY: Denies any blood in urine. SKIN: Denies pruitis. Denies rash. PHYSICAL EXAM: VITAL SIGNS: Reviewed. GENERAL: Well-developed in no acute distress. HEENT: Head is normocephalic. Pupils are equal, round. Sclerae anicteric. Mucous membranes of the mouth are moist. Neck supple. No JVD or thyromegaly LUNGS: Respirations even and unlabored. Lungs essentially clear to auscultation bilaterally. HEART: Regular rate and rhythm. S1 and S2 heard. ABDOMEN: Soft. Nondistended. Nontender. EXTREMITIES: Normal range of motion. No clubbing or cyanosis. Peripheral pulses intact. No lower extremity edema NEUROLOGIC: Awake and alert. Oriented x 3. ASSESSMENT: Syncope Recent hospitalization for TIA, MRI negative for CVA Coronary artery disease with previous multivessel stenting Chronic kidney disease Abnormal troponins, flat, secondary to poor renal clearance, no evidence of myocardial injury or ischemia, no clinical significance Hypertension Hyperlipidemia PLAN: An acute coronary but has been ruled out Obtain 2D echo to assess cardiac structure and function Continue to monitor patient for an additional 24 hours Anticipate discharge home tomorrow with event monitor Further recommendations pending patient course Nurse practitioner note has been reviewed by physician. Signing provider agrees with the documented findings, assessment, and plan of care documented by MANAGER [employer]ING as a scribe. Past Medical History Past Medical History: Blood Disorder, Coronary Artery Disease (CAD), Cancer, Chest Pain / Angina, CVA/TIA, Diabetes Mellitus, Deep Vein Thrombosis (DVT), Fibromyalgia, GERD/Reflux, Hyperlipidemia, Hypertension, Myocardial Infarction ([place]), Musculoskeletal Disorder, Neurologic Disorder, Renal Disease, Sleep Apnea/CPAP/BIPAP, Vascular Disorder Additional Past Medical History / Comment(s): IDDM type II, uterine/cervical and ovarian cancer, restless leg, Factor V blood disorder, DVT R leg, 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 - slight foot drag when tired/neuropathies, MS, [place] X 5, ABIGAIL with Cpap use, PAD/legs, R leg edema, past pancreatitis. HAD WI 10/27/23 Last Myocardial Infarction Date:: LAST ONE 10/27/23 History of Any Multi-Drug Resistant Organisms: None Reported Past Surgical History: Section, Cholecystectomy, Heart Catheterization With Stent, Hysterectomy, Tubal Ligation, Uterine Ablation Additional Past Surgical History / Comment(s): vein stripping right leg, radio frequency ablation of right back-02/22/2015, four stents on 04/03/16 and one on march 05, ovaries removed, colonscopy- polyp removal Past Anesthesia/Blood Transfusion Reactions: Motion Sickness Additional Past Anesthesia/Blood Transfusion Reaction / Comment(s): mild claustrophobia Date of Last Stent Placement:: 04/03/16 Past Psychological History: Anxiety, Depression Additional Psychological History / Comment(s): Pt resides with her spouse. She is mostly in her wheelchair. She has a walker and cane. She has a dexcom. Her spouse assists her with her medication organization. Spouse also drives pt. Smoking Status: Current every day smoker Past Alcohol Use History: None Reported Additional Past Alcohol Use History / Comment(s): Pt started smoking in 1988 and quit recently Past Drug Use History: None Reported - Past Family History Father Family Medical History: Congestive Heart Failure (CHF), Coronary Artery Disease (CAD), Diabetes Mellitus Mother Family Medical History: Cancer, COPD, Hypertension, Respiratory Disorder Additional Family Medical History / Comment(s): emphysema, colon CA Medications and Allergies Home Medications Medication Instructions Recorded Confirmed Type Aspirin [Adult Low Dose Aspirin EC] 81 mg PO HS 11/26/17 05/20/24 History DULoxetine HCL [Cymbalta] 60 mg PO DAILY 08/25/18 05/20/24 History Isosorbide Mononitrate ER [Imdur] 60 mg PO DAILY 09/08/18 05/20/24 History Empagliflozin [Jardiance] 10 mg PO DAILY 10/06/22 05/20/24 History Famotidine 20 mg PO BID PRN 10/06/22 05/20/24 History Nitroglycerin Sl Tabs [Nitrostat] 0.4 mg SL Q5M PRN 10/06/22 05/20/24 History Fenofibrate [Lofibra] 160 mg PO DAILY 01/25/23 05/20/24 History Pregabalin [Lyrica] 150 mg PO BID 02/05/23 05/20/24 History carvediloL [Coreg] 25 mg PO BID 02/05/23 05/20/24 History Budesonide/Formoterol Fumarate 2 puff INHALATION RT-BID PRN 07/17/23 05/20/24 History [Symbicort 160-4.5 Mcg Inhaler] INSULIN LISPRO (For Pump) [humaLOG 0.01 units SQ-PUMP CONTINUOUS 07/17/23 05/20/24 History (For Pump)] Atorvastatin [Lipitor] 40 mg PO HS 12/11/23 05/20/24 History Magnesium Oxide [Mag-Ox] 400 mg PO BID 03/10/24 05/20/24 History ALPRAZolam [Xanax] 1 mg PO DAILY 03/28/24 05/20/24 History Cinacalcet [Sensipar] 30 mg PO MOTH 03/28/24 05/20/24 History Sodium Bicarbonate 325 mg PO BID 03/28/24 05/20/24 History amLODIPine [Norvasc] 10 mg PO DAILY 03/28/24 05/20/24 History ALPRAZolam [Xanax] 2 mg PO HS 05/04/24 05/20/24 History ARIPiprazole [Abilify] 10 mg PO HS 05/04/24 05/20/24 History Ondansetron Odt [Zofran ODT] 8 mg PO Q12HR 05/04/24 05/20/24 History Clopidogrel [Plavix] 75 mg PO DAILY 30 Days #30 tab 05/13/24 05/20/24 Rx cefUROXime axetiL [Ceftin] 500 mg PO BID 7 Days #14 tab 05/13/24 05/20/24 Rx hydrALAZINE HCL [Apresoline] 75 mg PO TID 30 Days #180 tab 05/13/24 05/20/24 Rx Allergies Allergy/AdvReac Type Severity Reaction Status Date / Time Fish Containing Products Allergy Anaphylaxis Verified 05/20/24 12:06 Iodinated Contrast Media Allergy Anaphylaxis Verified 05/20/24 12:06 [Iodinated Contrast Media - IV Dye] Sulfa (Sulfonamide Allergy Anaphylaxis Verified 05/20/24 12:06 Antibiotics) sulfamethoxazole Allergy Anaphylaxis Verified 05/20/24 12:06 [From Septra] tree nut [Nut] Allergy Anaphylaxis Verified 05/20/24 12:06 trimethoprim [From ] Allergy Anaphylaxis Verified 05/20/24 12:06 Physical Exam Vitals: Vital Signs Temp Pulse Pulse Resp BP BP BP 05/21/24 04:41 98.1 F 69 17 05/20/24 23:30 97.8 F 68 17 150/65 05/20/24 20:40 98 F 74 17 151/67 05/20/24 16:43 16 05/20/24 15:44 75 16 156/70 05/20/24 14:20 96.9 F L 72 16 148/70 05/20/24 13:35 99.0 F 72 18 160/73 05/20/24 12:49 97.6 F 85 18 05/20/24 12:46 147/73 05/20/24 12:43 147/70 05/20/24 11:18 05/20/24 11:15 73 16 146/70 05/20/24 10:08 68 17 140/61 05/20/24 09:04 97.8 F 68 18 103/65 BP Pulse Ox 05/21/24 04:41 136/64 92 L 05/20/24 23:30 94 L 05/20/24 20:40 96 05/20/24 16:43 05/20/24 15:44 94 L 05/20/24 14:20 96 05/20/24 13:35 98 05/20/24 12:49 138/71 96 05/20/24 12:46 05/20/24 12:43 05/20/24 11:18 97 05/20/24 11:15 94 L 05/20/24 10:08 94 L 05/20/24 09:04 99 Intake and Output 05/20/24 05/21/24 05/21/24 22:59 06:59 14:59 Intake Total 65.333 127.351 Output Total 300 1 Balance -234.667 126.351 Intake: IV 10 10 Invasive Line 1 10 10 Intake, IV Titration 55.333 117.351 Amount Heparin Sod,Pork in 0.45% 55.333 117.351 NaCl 25,000 unit In 0.45 % NaCl 1 250ml.bag @ 10. 113 UNITS/KG/HR 10 mls/hr IV .Q24H [facility] [place] Rx#: [id number] Output: Urine 300 1 Other: Voiding Method Toilet Toilet Results 05/21/24 04:43 05/21/24 04:43 Cardiac Enzymes 05/20/24 05/20/24 05/20/24 Range/Units 09:22 12:13 14:53 AST (14-36) U/L Troponin I 0.122 H* 0.096 H* 0.098 H* (0.000-0.034) ng/mL 05/21/24 Range/Units 04:43 AST 16 (14-36) U/L Troponin I (0.000-0.034) ng/mL Coagulation 05/20/24 05/20/24 05/21/24 Range/Units 14:53 20:26 04:43 PT 10.8 10.1 (10.0-12.5) sec APTT 26.9 28.4 36.3 H (22.0-30.0) sec CBC 05/20/24 05/20/24 05/21/24 Range/Units 09:22 14:53 04:43 WBC 12.4 H 10.0 8.5 (3.8-10.6) k/uL RBC 4.22 4.11 3.73 L (3.80-5.40) m/uL Hgb 13.0 12.8 11.9 (11.4-16.0) gm/dL Hct 40.6 39.7 36.2 (34.0-46.0) % Plt Count 270 266 267 (150-450) k/uL Comprehensive Metabolic Panel 05/20/24 05/21/24 Range/Units 09:22 04:43 Sodium 137 137 (137-145) mmol/L Potassium 4.2 3.9 (3.5-5.1) mmol/L Chloride 113 H 112 H (98-107) mmol/L Carbon Dioxide 19 L 20 L (22-30) mmol/L BUN 20 H 25 H (7-17) mg/dL Creatinine 1.90 H 2.02 H (0.52-1.04) mg/dL Glucose 199 H 246 H (74-99) mg/dL Calcium 9.9 9.5 (8.4-10.2) mg/dL AST 16 (14-36) U/L ALT 14 (4-34) U/L Alkaline Phosphatase 122 (38-126) U/L Total Protein 4.8 L (6.3-8.2) g/dL Albumin 2.7 L (3.5-5.0) g/dL Current Medications Generic Name Dose Route Start Last Admin Trade Name Freq PRN Reason Stop Dose Admin Alprazolam 1 mg 05/21/24 09:00 Alprazolam 1 Mg Tab PO DAILY [facility] Alprazolam 2 mg 05/20/24 21:00 05/20/24 21:06 Alprazolam 1 Mg Tab PO 2 mg HS SARAHY Administration Amlodipine Besylate 10 mg 05/21/24 09:00 Amlodipine 10 Mg Tab PO DAILY [facility] [place] Aripiprazole 10 mg 05/20/24 21:00 05/20/24 21:07 Aripiprazole 10 Mg Tab PO 10 mg HS SARAHY Administration Aspirin 325 mg 05/21/24 09:00 Aspirin 325 Mg Tab PO DAILY [facility] Atorvastatin Calcium 40 mg 05/20/24 21:00 05/20/24 21:05 Atorvastatin 40 Mg Tab PO 40 mg HS [facility] [place] Administration Budesonide/Formoterol Fumarate 2 puff 05/20/24 20:00 05/20/24 21:17 Symbicort 160-4.5 Mcg Inhaler INHALATION Not Given RT-BID [facility] [place] Carvedilol 25 mg 05/20/24 17:30 05/21/24 06:13 Carvedilol 12.5 Mg Tab PO 25 mg AC-BID [facility] Administration Cinacalcet 30 mg 05/21/24 09:00 Cinacalcet 30 Mg Tab PO MOTH [facility] Clopidogrel Bisulfate 75 mg 05/21/24 09:00 Clopidogrel 75 Mg Tab PO DAILY [facility] Dapagliflozin 5 mg 05/21/24 09:00 Dapagliflozin Propanediol 5 Mg Tablet PO DAILY [facility] [place] Dextrose/Water 25 ml 05/20/24 13:58 Dextrose 50% Syringe 50 Ml IVP PER PROTOCOL PRN Hypoglycemia Protocol Dextrose/Water 50 ml 05/20/24 13:58 Dextrose 50% Syringe 50 Ml IVP PER PROTOCOL PRN Hypoglycemia Protocol Duloxetine HCl 60 mg 05/21/24 09:00 Duloxetine Hcl 60 Mg Capsule.Dr PO DAILY [facility] Famotidine 20 mg 05/20/24 13:39 Famotidine 20 Mg Tab PO DAILY PRN acid reflux Fenofibrate 160 mg 05/21/24 09:00 Fenofibrate 160 Mg Tab PO DAILY SARAHY Heparin Sodium (Porcine) 0 unit 05/20/24 14:37 05/21/24 06:13 Heparin Sodium 1,000 Un/Ml (10ml Vl) IV 2,472 unit PER PROTOCOL PRN Administration Low PTT Protocol Hydralazine HCl 75 mg 05/20/24 16:00 05/20/24 21:06 Hydralazine Hcl 25 Mg Tab PO 75 mg TID SARAHY Administration Heparin Sodium/Sodium Chloride 250 mls @ 10 mls/hr 05/20/24 14:45 05/21/24 06:16 25,000 unit/ Sodium Chloride IV 15.113 units/kg/hr .Q24H SARAHY 14.944 mls/hr Titration Protocol 10.113 UNITS/KG/HR Insulin Aspart 0 unit 05/20/24 17:30 05/21/24 06:13 Insulin Aspart (Novolog) 100 Unit/Ml Vial SQ 8 unit ACHS SARAHY Administration Protocol Isosorbide Mononitrate 60 mg 05/21/24 09:00 Isosorbide Mononitrate Er 60 Mg Tab.Er.24h PO DAILY SARAHY Magnesium Oxide 400 mg 05/20/24 21:00 05/20/24 21:06 Magnesium Oxide 400 Mg Tab PO 400 mg BID SARAHY Administration Nitroglycerin 0.4 mg 05/20/24 11:38 05/20/24 21:09 Nitroglycerin Sl Tabs 0.4 Mg Tab SUBLINGUAL 0.4 mg Q5M PRN Administration Chest Pain Ondansetron HCl 8 mg 05/20/24 21:00 05/20/24 21:06 Ondansetron Odt 8 Mg Tab.Rapdis PO 8 mg Q12HR SAARHY Administration Pregabalin 150 mg 05/20/24 21:00 05/20/24 21:06 Pregabalin 75 Mg Cap PO 150 mg BID SARAHY Administration Intake and Output 05/20/24 05/21/24 05/21/24 22:59 06:59 14:59 Intake Total 65.333 127.351 Output Total 300 1 Balance -234.667 126.351 Intake: IV 10 10 Invasive Line 1 10 10 Intake, IV Titration 55.333 117.351 Amount Heparin Sod,Pork in 0.45% 55.333 117.351 NaCl 25,000 unit In 0.45 % NaCl 1 250ml.bag @ 10. 113 UNITS/KG/HR 10 mls/hr IV .Q24H [facility] [place] Rx#: [id number] Output: Urine 300 1 Other: Voiding Method Toilet Toilet 05/21/24 04:43 05/21/24 04:43
[2024-05-21 11:37] LABS: Glucose,Whole Blood 420 mg/dL (70-110)
[2024-05-21 11:48] VITALS: BP 127/63; PULSE 67; RESP 18
== END 2024-05-21 15:40 | disposition left against medical advice (07) ==
LOC: EC 08:54 → 6NMEDSUR 11:40 → 3SCARD 12:21
PROVIDERS: ADMIT Internal Medicine; ATTEND Internal Medicine
DX: R55 Syncope and collapse (principal); R79.89 Other specified abnormal findings of blood chemistry; I25.10 Atherosclerotic heart disease of native coronary artery without angina pectoris; E11.42 Type 2 diabetes mellitus with diabetic polyneuropathy; Z86.718 Personal history of other venous thrombosis and embolism; I25.2 Old myocardial infarction; M79.7 Fibromyalgia; K21.9 Gastro-esophageal reflux disease without esophagitis; E78.5 Hyperlipidemia, unspecified; I10 Essential (primary) hypertension; I69.351 Hemiplegia and hemiparesis following cerebral infarction affecting right dominant side; I12.9 Hypertensive chronic kidney disease with stage 1 through stage 4 chronic kidney disease, or unspecified chronic kidney disease; N18.9 Chronic kidney disease, unspecified; G47.33 Obstructive sleep apnea (adult) (pediatric); F17.200 Nicotine dependence, unspecified, uncomplicated; G35 Multiple sclerosis; E11.22 Type 2 diabetes mellitus with diabetic chronic kidney disease; F31.9 Bipolar disorder, unspecified; G25.81 Restless legs syndrome; I45.10 Unspecified right bundle-branch block; F40.240 Claustrophobia; Z96.41 Presence of insulin pump (external) (internal); Z95.5 Presence of coronary angioplasty implant and graft; Z90.710 Acquired absence of both cervix and uterus; Z85.43 Personal history of malignant neoplasm of ovary; Z83.3 Family history of diabetes mellitus; Z82.5 Family history of asthma and other chronic lower respiratory diseases; Z82.49 Family history of ischemic heart disease and other diseases of the circulatory system; Z80.0 Family history of malignant neoplasm of digestive organs; Z79.899 Other long term (current) drug therapy; Z79.84 Long term (current) use of oral hypoglycemic drugs; Z79.82 Long term (current) use of aspirin; Z79.51 Long term (current) use of inhaled steroids; Z79.4 Long term (current) use of insulin; Z79.02 Long term (current) use of antithrombotics/antiplatelets
CPT/HCPCS: 96376 ×2; 96365; 96366 ×2; 99285; 36415; 93005; 80061; 80053; 80048; 84484; 85025 ×2; 85610 ×2; 85730 ×2; 81001; 83721; 83036; G0378 ×3; J1644 ×3

== ENCOUNTER 2024-06-16 02:15 | Inpatient (IN) | payer OTHER ==
[~2024-06-16 02:15] MED LIST changes: -ALPRAZolam 0.25 MG TAB PO PRN; -ALPRAZolam 0.5 MG TAB PO PRN; +ALPRAZolam 1 MG TAB ONE; +ARIPiprazole 10 MG TAB ONE; +ARIPiprazole 5 MG TAB ONE; +ASPIRIN 81 MG ONE; +ATORVASTATIN 40 MG TAB ONE; +FAMOTIDINE 20 MG TAB ONE; +HEPARIN SOD,PORK IN 0.45% NACL 250 ML IV ONE; +HEPARIN SODIUM 1,000 UN/ML (10ML VL) ONE; -HEPARIN SODIUM,PORCINE (1 ML) 2,500 UNIT in SODIUM CHLORIDE 0.9% 250 ML IRRIGATION PRN; -HEPARIN SODIUM,PORCINE 10,000 UNIT in SODIUM CHLORIDE 0.9% 1,000 ML IRRIGATION PRN; +INSULIN REGULAR 100 UNIT/ML VIAL (IV) ONE; +MAGNESIUM OXIDE 400 MG TAB ONE; +MORPHINE SULFATE 4 MG/ML SYRINGE ONE; -NITROGLYCERIN SL TABS 0.4 MG TAB SUBLINGUAL PRN; +SODIUM BICARBONATE TAB 650 MG TAB ONE; +SODIUM CHLORIDE 0.9% 1,000 ML BAG ONE; +hydrALAZINE HCL 20 MG/ML 1 ML VIAL ONE; +hydrALAZINE HCL 50 MG TAB ONE
[2024-06-16] MEDS ORDERED: INSULIN ASPART (NovoLOG) 100 UNIT/ML VIAL SQ ONE ×4 (06:31→21:27)
[2024-06-16] MEDS ORDERED: MAGNESIUM OXIDE 400 MG TAB ONE ×2 (08:47→21:25)
[2024-06-16] MEDS ORDERED: hydrALAZINE HCL 50 MG TAB ONE ×2 (08:47→21:25)
[2024-06-16] MEDS ORDERED: ALPRAZolam 1 MG TAB ONE ×2 (08:48→21:26)
[2024-06-16] MEDS ORDERED: PREGABALIN 50 MG CAP ONE (08:48)
[2024-06-16] MEDS ORDERED: ISOSORBIDE MONONITRATE ER 60 MG TAB.ER.24H PO ONE (08:49)
[2024-06-16] MEDS ORDERED: SODIUM BICARBONATE TAB 650 MG TAB ONE ×2 (08:49→21:27)
[2024-06-16] MEDS ORDERED: CLOPIDOGREL 75 MG TAB ONE (08:49)
[2024-06-16] MEDS ORDERED: FAMOTIDINE 20 MG TAB ONE ×2 (08:49→21:26)
[2024-06-16] MEDS ORDERED: PREGABALIN 100 MG CAP ONE (08:49)
[2024-06-16] MEDS ORDERED: HEPARIN SODIUM 1,000 UN/ML (10ML VL) ONE (08:49)
[2024-06-16] MEDS ORDERED: amLODIPine 10 MG TAB ONE (08:50)
[2024-06-16] MEDS ORDERED: FENOFIBRATE 160 MG TAB ONE (08:50)
[2024-06-16] MEDS ORDERED: DULoxetine HCL 60 MG CAPSULE.DR PO ONE (08:50)
[2024-06-16] MEDS ORDERED: DAPAGLIFLOZIN PROPANEDIOL 5 MG TABLET ONE (16:12)
[2024-06-16] MEDS ORDERED: HEPARIN SOD,PORK IN 0.45% NACL 250 ML IV ONE (16:21)
[2024-06-16] MEDS ORDERED: POTASSIUM CHLORIDE ER 20 MEQ TAB.ER PO ONE ×2 (18:22→21:26)
[2024-06-16] MEDS ORDERED: ASPIRIN 81 MG ONE (21:26)
[2024-06-16] MEDS ORDERED: PREGABALIN 75 MG CAP ONE (21:26)
[2024-06-16] MEDS ORDERED: ATORVASTATIN 40 MG TAB ONE (21:27)
[2024-06-17] MEDS ORDERED: ARIPiprazole 10 MG TAB ONE (00:01)
[2024-06-17] MEDS ORDERED: INSULIN ASPART (NovoLOG) 100 UNIT/ML VIAL SQ ONE ×4 (06:05→20:33)
[2024-06-17] MEDS ORDERED: PREGABALIN 75 MG CAP ONE ×2 (08:47→19:52)
[2024-06-17] MEDS ORDERED: MAGNESIUM OXIDE 400 MG TAB ONE ×2 (08:47→19:52)
[2024-06-17] MEDS ORDERED: FAMOTIDINE 20 MG TAB ONE ×2 (08:47→19:53)
[2024-06-17] MEDS ORDERED: hydrALAZINE HCL 50 MG TAB ONE ×2 (08:47→19:51)
[2024-06-17] MEDS ORDERED: ASPIRIN 81 MG ONE ×2 (08:47→19:52)
[2024-06-17] MEDS ORDERED: ISOSORBIDE MONONITRATE ER 60 MG TAB.ER.24H PO ONE (08:48)
[2024-06-17] MEDS ORDERED: CLOPIDOGREL 75 MG TAB ONE (08:48)
[2024-06-17] MEDS ORDERED: FENOFIBRATE 160 MG TAB ONE (08:48)
[2024-06-17] MEDS ORDERED: SODIUM BICARBONATE TAB 650 MG TAB ONE ×3 (08:48→19:53)
[2024-06-17] MEDS ORDERED: DULoxetine HCL 60 MG CAPSULE.DR PO ONE (08:48)
[2024-06-17] MEDS ORDERED: DAPAGLIFLOZIN PROPANEDIOL 5 MG TABLET ONE (08:48)
[2024-06-17] MEDS ORDERED: amLODIPine 10 MG TAB ONE (08:49)
[2024-06-17] MEDS ORDERED: METOPROLOL TARTRATE 25 MG TAB ONE ×2 (17:16→19:53)
[2024-06-17] MEDS ORDERED: POTASSIUM CHLORIDE ER 20 MEQ TAB.ER PO ONE (17:16)
[2024-06-17] MEDS ORDERED: ALPRAZolam 1 MG TAB ONE (19:52)
[2024-06-17] MEDS ORDERED: ATORVASTATIN 40 MG TAB ONE (19:53)
[2024-06-18] MEDS ORDERED: ARIPiprazole 10 MG TAB ONE (00:01)
[2024-06-18] MEDS ORDERED: INSULIN ASPART (NovoLOG) 100 UNIT/ML VIAL SQ ONE ×5 (06:19→20:24)
[2024-06-18] MEDS ORDERED: METOPROLOL TARTRATE 25 MG TAB ONE ×3 (06:19→20:23)
[2024-06-18] MEDS ORDERED: MAGNESIUM OXIDE 400 MG TAB ONE ×2 (08:55→20:23)
[2024-06-18] MEDS ORDERED: FAMOTIDINE 20 MG TAB ONE ×2 (08:55→20:24)
[2024-06-18] MEDS ORDERED: DULoxetine HCL 60 MG CAPSULE.DR PO ONE (08:56)
[2024-06-18] MEDS ORDERED: SODIUM BICARBONATE TAB 650 MG TAB ONE ×2 (08:56→20:24)
[2024-06-18] MEDS ORDERED: amLODIPine 10 MG TAB ONE (08:57)
[2024-06-18] MEDS ORDERED: ALPRAZolam 1 MG TAB ONE ×2 (08:57→20:23)
[2024-06-18] MEDS ORDERED: CLOPIDOGREL 75 MG TAB ONE (08:57)
[2024-06-18] MEDS ORDERED: ISOSORBIDE MONONITRATE ER 60 MG TAB.ER.24H PO ONE (08:58)
[2024-06-18] MEDS ORDERED: DAPAGLIFLOZIN PROPANEDIOL 5 MG TABLET ONE (08:59)
[2024-06-18] MEDS ORDERED: FENOFIBRATE 160 MG TAB ONE (08:59)
[2024-06-18] MEDS ORDERED: PREGABALIN 75 MG CAP ONE ×2 (09:00→20:23)
[2024-06-18] MEDS ORDERED: hydrALAZINE HCL 50 MG TAB ONE ×2 (09:00→20:23)
[2024-06-18] MEDS ORDERED: ASPIRIN 81 MG ONE (20:23)
[2024-06-18] MEDS ORDERED: ATORVASTATIN 40 MG TAB ONE (20:24)
[2024-06-18] MEDS ORDERED: hydrALAZINE HCL 20 MG/ML 1 ML VIAL ONE (23:24)
[2024-06-19] MEDS ORDERED: ARIPiprazole 10 MG TAB ONE (00:01)
[2024-06-19] MEDS ORDERED: METOPROLOL TARTRATE 25 MG TAB ONE ×3 (06:00→20:15)
[2024-06-19] MEDS ORDERED: INSULIN ASPART (NovoLOG) 100 UNIT/ML VIAL SQ ONE ×4 (06:01→20:16)
[2024-06-19] MEDS ORDERED: MAGNESIUM OXIDE 400 MG TAB ONE ×2 (08:20→20:14)
[2024-06-19] MEDS ORDERED: hydrALAZINE HCL 50 MG TAB ONE ×2 (08:20→20:14)
[2024-06-19] MEDS ORDERED: FAMOTIDINE 20 MG TAB ONE ×2 (08:21→20:15)
[2024-06-19] MEDS ORDERED: PREGABALIN 75 MG CAP ONE ×2 (08:21→20:14)
[2024-06-19] MEDS ORDERED: CLOPIDOGREL 75 MG TAB ONE (08:21)
[2024-06-19] MEDS ORDERED: SODIUM BICARBONATE TAB 650 MG TAB ONE ×2 (08:21→20:15)
[2024-06-19] MEDS ORDERED: ISOSORBIDE MONONITRATE ER 60 MG TAB.ER.24H PO ONE (08:21)
[2024-06-19] MEDS ORDERED: ALPRAZolam 1 MG TAB ONE ×2 (08:21→20:14)
[2024-06-19] MEDS ORDERED: DAPAGLIFLOZIN PROPANEDIOL 5 MG TABLET ONE (08:21)
[2024-06-19] MEDS ORDERED: amLODIPine 10 MG TAB ONE (08:22)
[2024-06-19] MEDS ORDERED: FENOFIBRATE 160 MG TAB ONE (08:22)
[2024-06-19] MEDS ORDERED: DULoxetine HCL 60 MG CAPSULE.DR PO ONE (08:22)
[2024-06-19] MEDS ORDERED: ASPIRIN 81 MG ONE ×2 (08:30→20:15)
[2024-06-19] MEDS ORDERED: ATORVASTATIN 40 MG TAB ONE (20:15)
[2024-06-20] MEDS ORDERED: ATORVASTATIN 40 MG TAB ONE (00:01)
[2024-06-20] MEDS ORDERED: hydrALAZINE HCL 50 MG TAB ONE ×2 (00:01→08:51)
[2024-06-20] MEDS ORDERED: ARIPiprazole 10 MG TAB ONE (00:01)
[2024-06-20] MEDS ORDERED: METOPROLOL TARTRATE 25 MG TAB ONE ×3 (06:11→20:58)
[2024-06-20] MEDS ORDERED: INSULIN ASPART (NovoLOG) 100 UNIT/ML VIAL SQ ONE (06:12)
[2024-06-20] MEDS ORDERED: MAGNESIUM OXIDE 400 MG TAB ONE (08:51)
[2024-06-20] MEDS ORDERED: PREGABALIN 75 MG CAP ONE ×3 (08:52→20:58)
[2024-06-20] MEDS ORDERED: ISOSORBIDE MONONITRATE ER 60 MG TAB.ER.24H PO ONE (08:52)
[2024-06-20] MEDS ORDERED: CLOPIDOGREL 75 MG TAB ONE (08:52)
[2024-06-20] MEDS ORDERED: FAMOTIDINE 20 MG TAB ONE ×2 (08:52→20:59)
[2024-06-20] MEDS ORDERED: ASPIRIN 81 MG ONE ×2 (08:52→20:58)
[2024-06-20] MEDS ORDERED: ALPRAZolam 1 MG TAB ONE (08:52)
[2024-06-20] MEDS ORDERED: DULoxetine HCL 60 MG CAPSULE.DR PO ONE (08:53)
[2024-06-20] MEDS ORDERED: amLODIPine 10 MG TAB ONE (08:53)
[2024-06-20] MEDS ORDERED: FENOFIBRATE 160 MG TAB ONE (08:53)
[2024-06-20] MEDS ORDERED: DAPAGLIFLOZIN PROPANEDIOL 5 MG TABLET ONE (08:53)
[2024-06-20] MEDS ORDERED: SODIUM BICARBONATE TAB 650 MG TAB ONE (08:53)
[2024-06-21] MEDS ORDERED: MORPHINE SULFATE 4 MG/ML SYRINGE IVP PRN
[2024-06-21] MEDS ORDERED: ALPRAZolam 0.5 MG TAB PO PRN
[2024-06-21] MEDS ORDERED: ACETAMINOPHEN TAB 325 MG TAB PO PRN
[2024-06-21] MEDS ORDERED: hydrALAZINE HCL 20 MG/ML 1 ML VIAL IVP PRN
[2024-06-21] MEDS ORDERED: NALOXONE 0.4 MG/ML 1 ML VIAL IVP PRN
[2024-06-21] MEDS ORDERED: NITROGLYCERIN SL TABS 0.4 MG TAB SUBLINGUAL PRN
[2024-06-21 05:00] LABS: HCT 41.8 % (34.0-46.0); HGB 13.5 gm/dL (11.4-16.0); Hypochromasia Slight; MCHC 32.4 g/dL (31.0-37.0); Mean Platelet Volume 10.5; Platelet Count 224 k/uL (150-450); RBC 4.22 m/uL (3.80-5.40); RDW 14.2 % (11.5-15.5)
[2024-06-21 05:33] LABS: ALT 16 U/L (4-34); AST 24 U/L (14-36); African American GFR (CKD) 29 (>60 ml/min/1.73 sqM); Alkaline Phosphatase 127 U/L (38-126); Anion Gap 4 mmol/L; Blood Urea Nitrogen 31 mg/dL (7-17); Calcium 10.2 mg/dL (8.4-10.2); Carbon Dioxide 25 mmol/L (22-30); Chloride 111 mmol/L (98-107); Glucose 167 mg/dL (74-99); Magnesium 2.3 mg/dL (1.6-2.3); Non-African American GFR(CKD) 25 (>60 ml/min/1.73 sqM); Potassium 4.3 mmol/L (3.5-5.1); Sodium 140 mmol/L (137-145); Total Bilirubin 0.4 mg/dL (0.2-1.3); Total Protein 5.2 g/dL (6.3-8.2)
[2024-06-21] MEDS: INSULIN ASPART (NovoLOG) 100 UNIT/ML VIAL SQ SCH (06:16)
[2024-06-21] MEDS: Potassium Replacement Protocol 1 EACH MISC MISCELLANE ONE (06:18)
[2024-06-21] MEDS ORDERED: ALPRAZolam 1 MG TAB PO SCH (09:00)
[2024-06-21] MEDS ORDERED: DEXTROSE 50% SYRINGE 50 ML IVP PRN ×2 (09:00)
[2024-06-21] MEDS: MAGNESIUM OXIDE 400 MG TAB PO SCH (09:20)
[2024-06-21] MEDS: CLOPIDOGREL 75 MG TAB PO SCH (09:20)
[2024-06-21] MEDS: hydrALAZINE HCL 50 MG TAB PO SCH (09:20)
[2024-06-21] MEDS: ISOSORBIDE MONONITRATE ER 60 MG TAB.ER.24H PO SCH (09:20)
[2024-06-21] MEDS: DULoxetine HCL 60 MG CAPSULE.DR PO SCH (09:20)
[2024-06-21] MEDS: amLODIPine 10 MG TAB PO SCH (09:20)
[2024-06-21] MEDS: DAPAGLIFLOZIN PROPANEDIOL 5 MG TABLET PO SCH (09:20)
[2024-06-21] MEDS: FENOFIBRATE 160 MG TAB PO SCH (09:20)
[2024-06-21] MEDS: FAMOTIDINE 20 MG TAB PO SCH (09:20)
[2024-06-21] MEDS: SODIUM BICARBONATE TAB 650 MG TAB PO SCH (09:20)
[2024-06-21] MEDS: METOPROLOL TARTRATE 25 MG TAB PO SCH (09:21)
[2024-06-21] MEDS: PREGABALIN 75 MG CAP PO SCH (09:24)
--- NOTE | 2024-06-21 10:44 | P.PN ---
Subjective Patient is seen in follow-up for chronic kidney disease. More awake and alert today. Oral intake fair. Vital signs are stable. General: No acute distress. HEENT: Head exam is unremarkable. On nasal cannula. LUNGS: No audible rhonchi or wheezes. HEART: Rate and Rhythm are regular. ABDOMEN: Nontender. EXTREMITITES: No edema. Objective - Vital Signs Vital signs: Vital Signs Temp Pulse 59 L 06/21/24 03:46 Resp 16 06/21/24 03:46 BP 177/81 06/21/24 03:46 Pulse Ox 94 L 06/21/24 03:46 FiO2 Intake & Output 06/20/24 06/21/24 06/21/24 18:59 06:59 18:59 Weight 97 kg - Labs CBC & Chem 7: 06/21/24 03:38 06/21/24 03:38 Labs: Abnormal Lab Results - Last 24 Hours (Table) 06/21/24 Range/Units 03:38 Chloride 111 H (98-107) mmol/L BUN 31 H (7-17) mg/dL Creatinine 2.18 H (0.52-1.04) mg/dL Glucose 167 H (74-99) mg/dL Alkaline Phosphatase 127 H (38-126) U/L Total Protein 5.2 L (6.3-8.2) g/dL Albumin 3.0 L (3.5-5.0) g/dL Assessment and Plan Plan: Assessment: 1. Chronic kidney disease stage IV secondary to biopsy-proven diabetic kidney disease with severe interstitial fibrosis and tubular atrophy. Creatinine 2.18 today. 2. Hypercalcemia. DORA level slightly elevated for which she was referred to pulmonology. Calcitriol level was low at 12. No monoclonality on immun ofixation. Parathyroid scan showed no evidence of parathyroid adenoma. She is also being seen by hematology oncology. On Sensipar. 3. History of CVA. 4. NSTEMI status post IV heparin. 5. Metabolic acidosis secondary to chronic kidney disease maintained on oral bicarb. Stable. 6. Hypertension with chronic kidney disease. 7. Chronic systolic CHF ejection fraction of 40 to 45%. Plan: Maintain Farxiga. Maintain Sensipar. 400 units calcitonin IM once today. Avoid nephrotoxins. Add losartan.
--- NOTE | 2024-06-21 11:18 | P.DS ---
Providers Date of admission: 06/16/24 02:15 Expected date of discharge: 06/21/24 Attending physician: Evin Sanchez Consults: 06/15/24 18:00 Consult Physician Routine Consulting Provider: Luis F Pompa Consult Reason/Comments: STEMI Do you want consulting provider notified?: Already Contacted 06/17/24 10:45 Consult Physician Routine Consulting Provider: Marlyn Kirkland Consult Reason/Comments: hypoglycemia Do you want consulting provider notified?: Already Contacted 06/19/24 15:18 Consult Physician Routine Consulting Provider: Clem Mccarty Consult Reason/Comments: AMS Do you want consulting provider notified?: Already Contacted Placement Type Exists?: Yes Primary care physician: Physician Nonstaff Hospital Course: Discharge diagnosis 1. Generalized weakness 2. Leukocytosis. Resolved 3. Elevated troponin level patient was evaluated by cardiology services 4. History of coronary artery disease 5. History of essential hypertension 6. History of insulin-dependent diabetes mellitus maintained on home insulin pump at home 7. History of hyperlipidemia 8. History of chronic kidney disease Hospital course This is a 54-year-old female patient who presented to [facility] with a chief complaint of generalized weakness fall and inability to stand up patient has a past medical history of insulin-dependent diabetes mellitus, hypertension, coronary artery disease, hyperlipidemia, peripheral neuropathy and chronic kidney disease. Chest x-ray completed showing cardiomegaly and mild pulmonary congestion. During hospital stay patient continued to to have episodes of sleepiness and weakness. Neurology, cardiology and nephrology services were consulted. Head CT was completed old CVA this was reviewed per neurology services recommendations to continue dual antiplatelet therapy along with Lipitor. On 06/21/2024 patient is alert and oriented x 3. Patient is very eager to be DC'd home along with . White blood cell 10.0. Creatinine 2.18, bun 31. Patient will be DC'd home new medications sent. Patient advised to follow-up with PCP and consulting providers for further management chronic conditions Patient Condition at Discharge: Stable Plan - Discharge Summary New Discharge Prescriptions: New Losartan [Cozaar] 25 mg PO DAILY 30 Days #30 tab Metoprolol Tartrate [Lopressor] 25 mg PO TID 30 Days #90 tab hydrALAZINE HCL [Apresoline] 50 mg PO BID 30 Days #60 tab Sodium Bicarbonate Tab 650 mg PO BID 30 Days #60 tab Continue Aspirin [Adult Low Dose Aspirin EC] 81 mg PO HS DULoxetine HCL [Cymbalta] 60 mg PO DAILY Isosorbide Mononitrate ER [Imdur] 60 mg PO DAILY Famotidine 20 mg PO BID PRN PRN Reason: acid reflux Nitroglycerin Sl Tabs [Nitrostat] 0.4 mg SL Q5M PRN PRN Reason: Chest Pain Pregabalin [Lyrica] 150 mg PO BID INSULIN LISPRO (For Pump) [humaLOG (For Pump)] 0.01 units SQ-PUMP CONTINUOUS Atorvastatin [Lipitor] 40 mg PO HS amLODIPine [Norvasc] 10 mg PO DAILY ALPRAZolam [Xanax] 1 mg PO DAILY Ondansetron Odt [Zofran ODT] 8 mg PO Q12HR Empagliflozin [Jardiance] 10 mg PO DAILY Fenofibrate [Lofibra] 160 mg PO DAILY Budesonide/Formoterol Fumarate [Symbicort 160-4.5 Mcg Inhaler] 2 puff INHALATION RT-BID PRN PRN Reason: COPD Magnesium Oxide [Mag-Ox] 400 mg PO BID Sodium Bicarbonate 325 mg PO BID Cinacalcet [Sensipar] 30 mg PO MOTH ALPRAZolam [Xanax] 2 mg PO HS ARIPiprazole [Abilify] 10 mg PO HS Clopidogrel [Plavix] 75 mg PO DAILY 30 Days #30 tab Discontinued hydrALAZINE HCL [Apresoline] 75 mg PO TID 30 Days #180 tab cefUROXime axetiL [Ceftin] 500 mg PO BID 7 Days #14 tab carvediloL [Coreg] 25 mg PO BID Discharge Medication List Aspirin [Adult Low Dose Aspirin EC] 81 mg PO HS 11/26/17 [History] DULoxetine HCL [Cymbalta] 60 mg PO DAILY 08/25/18 [History] Isosorbide Mononitrate ER [Imdur] 60 mg PO DAILY 09/08/18 [History] Empagliflozin [Jardiance] 10 mg PO DAILY 10/06/22 [History] Famotidine 20 mg PO BID PRN 10/06/22 [History] Nitroglycerin Sl Tabs [Nitrostat] 0.4 mg SL Q5M PRN 10/06/22 [History] Fenofibrate [Lofibra] 160 mg PO DAILY 01/25/23 [History] Pregabalin [Lyrica] 150 mg PO BID 02/05/23 [History] Budesonide/Formoterol Fumarate [Symbicort 160-4.5 Mcg Inhaler] 2 puff INHALATION RT-BID PRN 07/17/23 [History] INSULIN LISPRO (For Pump) [humaLOG (For Pump)] 0.01 units SQ-PUMP CONTINUOUS 07/17/23 [History] Atorvastatin [Lipitor] 40 mg PO HS 12/11/23 [History] Magnesium Oxide [Mag-Ox] 400 mg PO BID 03/10/24 [History] ALPRAZolam [Xanax] 1 mg PO DAILY 03/28/24 [History] Cinacalcet [Sensipar] 30 mg PO MOTH 03/28/24 [History] Sodium Bicarbonate 325 mg PO BID 03/28/24 [History] amLODIPine [Norvasc] 10 mg PO DAILY 03/28/24 [History] ALPRAZolam [Xanax] 2 mg PO HS 05/04/24 [History] ARIPiprazole [Abilify] 10 mg PO HS 05/04/24 [History] Ondansetron Odt [Zofran ODT] 8 mg PO Q12HR 05/04/24 [History] Clopidogrel [Plavix] 75 mg PO DAILY 30 Days #30 tab 05/13/24 [Rx] Losartan [Cozaar] 25 mg PO DAILY 30 Days #30 tab 06/21/24 [Rx] Metoprolol Tartrate [Lopressor] 25 mg PO TID 30 Days #90 tab 06/21/24 [Rx] Sodium Bicarbonate Tab 650 mg PO BID 30 Days #60 tab 06/21/24 [Rx] hydrALAZINE HCL [Apresoline] 50 mg PO BID 30 Days #60 tab 06/21/24 [Rx] Follow up Appointment(s)/Referral(s): Dagmar Hennessy MD [STAFF PHYSICIAN] - 1 Week Marlyn Kirkland MD [STAFF PHYSICIAN] - 1 Week Javon Cano MD [STAFF PHYSICIAN] - 1 Week Activity/Diet/Wound Care/Special Instructions: activity as tolerated diet heart healthy Discharge Disposition: HOME SELF-CARE
[2024-06-21] MEDS: CALCITONIN INJ 200 UNIT/ML (MDV) VIAL IM ONE (11:19)
[2024-06-21] MEDS: LOSARTAN 25 MG TAB PO SCH (11:19)
[2024-06-21 11:28] LABS: Glucose,Whole Blood 312 mg/dL (70-110)
[2024-06-21 12:25] VITALS: BP 126/74; PULSE 61; RESP 18
[2024-06-21] MEDS ORDERED: ASPIRIN 81 MG PO SCH (21:00)
[2024-06-21] MEDS ORDERED: ATORVASTATIN 40 MG TAB PO SCH (21:00)
[2024-06-21] MEDS ORDERED: ARIPiprazole 10 MG TAB PO SCH (21:00)
[2024-06-22] MEDS ORDERED: CINACALCET 30 MG TAB PO SCH ×2 (09:00)
--- NOTE | 2024-07-08 06:39 | CT ---
Patient: Leticia Langley Ordering Physician: Unknown, Unknown ID: [id number] Phone, Pager: Phone: N/A Pager: N/A : 1970 Age/Gender: 53Y, F Primary Location: N/A Procedure: CT brain wo con Study Date: 06/19/2024 2:43:00 PM EXAMINATION TYPE: CT brain wo con DATE OF EXAM: 06/19/2024 COMPARISON: 05/09/2024 HISTORY: 53-year-old female altered mental status, right-sided paraplegic, confusion TECHNIQUE: Examination was done in axial plane without intravenous contrast. Coronal and sagittal r econstructions performed. CT DLP: 1154.4 mGycm Automated exposure control for dose reduction was used. FINDINGS: Redemonstrated encephalomalacia subcortical white matter left precentral region extending down into t he periventricular white matter and posterior left basal ganglia. Unchanged asymmetric enlargement of the left lateral ventricle. Partially into sella. There is no evidence of acute intracranial hemorr robyn, acute ischemic changes, mass, mass-effect, or extra-axial fluid collection. There is no efface ment of cerebral sulci or basal subarachnoid cisterns. There is no hydrocephalus. There is no midli ne shift. Castro-white matter distinction is preserved. Paranasal sinuses and mastoid air cells are well pneumatized. Orbits and globes are intact. IMPRESSION: Redemonstrated white matter infarct anterior to the left central sulcus extending down to the left ba jesus ganglia. Unchanged asymmetric enlargement left lateral ventricle probably on an ex vacuo basis. N o acute intracranial abnormality seen.
--- NOTE | 2024-07-13 14:36 | CA ---
Transthoracic Echo Report Name: Leticia Langley Age: 53 Gender: F : 1970 Exam Date: 06/18/2024 10:39 Exam Location: [facility] Ht (in): 66 Wt (lb): 214 Ordering Physician: Attending/Referring Phys: Chro Keyona Brenner RDCS Procedure CPT: Indications: Left ventricular failure Cardiac Hx: Technical Quality: Fair Contrast 1: Total Dose (mL): Contrast 2: Total Dose (mL): MEASUREMENTS (Male / Female) Normal Values 2D ECHO LV Diastolic Diameter PLAX 4.9 cm 4.2 - 5.9 / 3.9 - 5.3 cm LV Systolic Diameter PLAX 3.6 cm IVS Diastolic Thickness 2.1 cm 0.6 - 1.0 / 0.6 - 0.9 cm LVPW Diastolic Thickness 1.9 cm 0.6 - 1.0 / 0.6 - 0.9 cm LV Relative Wall Thickness 0.8 RV Internal Dim ED PLAX 2.0 cm LA Systolic Diameter LX 3.8 cm 3.0 - 4.0 / 2.7 - 3.8 cm LV Diastolic Volume MOD BP 84.3 cm??? 67 - 155 / 56 - 104 cm??? LV Systolic Volume MOD BP 35.2 cm??? 22 - 58 / 19 - 49 cm??? LV Ejection Fraction MOD BP 58.3 % >= 55 % LV Cardiac Index MOD BP 1475.9 cm???/min???m??? LV Diastolic Volume MOD 4C 111.0 cm??? LV Systolic Volume MOD 4C 46.1 cm??? LV Ejection Fraction MOD 4C 58.5 % LV Cardiac Index MOD 4C 1950.8 cm???/min???m??? LV Diastolic Length 4C 8.7 cm LV Systolic Length 4C 6.5 cm LV Diastolic Volume MOD 2C 59.3 cm??? LV Systolic Volume MOD 2C 26.7 cm??? LV Ejection Fraction MOD 2C 54.9 % LV Cardiac Index MOD 2C 978.4 cm???/min???m??? LV Diastolic Length 2C 8.0 cm LV Systolic Length 2C 6.3 cm LA Volume 45.8 cm??? 18 - 58 / 22 - 52 cm??? LA Volume Index 21.2 cm???/m??? 16 - 28 cm???/m??? M-MODE Aortic Root Diameter MM 3.8 cm LA Systolic Diameter MM 3.4 cm LA Ao Ratio MM 0.9 AV Cusp Separation MM 2.4 cm DOPPLER MV Area PHT 2.2 cm??? Mitral E Point Velocity 68.4 cm/s Mitral A Point Velocity 100.2 cm/s Mitral E to A Ratio 0.7 MV Deceleration Time 339.5 ms TR Peak Velocity 148.3 cm/s TR Peak Gradient 8.8 mmHg FINDINGS Left Ventricle Left ventricular ejection fraction is estimated at 55-60 %. Left ventricular cavity size normal. No obvious regional wall motion abnormalities.Severely increased left ventricular wall thickness. Right Ventricle Normal right ventricular size and function. Right ventricular systolic pressure within normal limits. Right Atrium Normal right atrial size. Left Atrium Normal left atrial size. Mitral Valve Structurally normal mitral valve. mild mitral regurgitation. No mitral stenosis. Aortic Valve Trileaflet aortic valve. No aortic valve stenosis or regurgitation. Tricuspid Valve Structurally normal tricuspid valve. Mild tricuspid regurgitation. No tricuspid stenosis. Pulmonic Valve Structurally normal pulmonic valve. . No pulmonic stenosis. Pericardium No pericardial or pleural effusion. Aorta Mild aortic dilatation at the level of the sinuses of valsalva (root). CONCLUSIONS 1. Normal left ventricular size and systolic function with severe hypertrophy 2. Mild mitral and tricuspid regurgitation 3. Mildly dilated aortic root Previewed by: Dr. Iraida Gusman MD (Electronically Signed) Final Date: 18 June 2024 12:05
--- NOTE | 2024-07-14 11:11 | XR ---
Patient: Leticia Langley Ordering Physician: Unknown, Unknown ID: [id number] Phone, Pager: Phone : N/A Pager: N/A : 1970 Age/Gender: 53Y, F Primary Location: N/A Procedure: XR CHEST 2V Stud y Date: 06/15/2024 4:09:05 PM EXAMINATION TYPE: XR chest 2V DATE OF EXAM: 06/15/2024 6:38 PM CLINICAL INDICATION: Weakness hyperglycemia COMPARISON: 05/10/2024 TECHNIQUE: XR chest 2V Frontal view of the chest. FINDINGS: Lungs/Pleura: Low lung volumes are present. There is no evidence of pleural effusion, focal consolida tion, or pneumothorax. Pulmonary vascularity: Mild pulmonary vascular congestion. Heart/mediastinum: Cardiomediastinal silhouette is unremarkable. Musculoskeletal: No acute osseous pathology. Other findings: None IMPRESSION: Cardiomegaly and mild pulmonary vascular congestion. Correlate with BNP for congestive heart failure.
== END 2024-06-21 12:44 | disposition home or self-care (01) | DRG 194 ==
LOC: 3SCARD 02:15
PROVIDERS: ADMIT Internal Medicine; ATTEND Internal Medicine
DX: I13.0 Hypertensive heart and chronic kidney disease with heart failure and stage 1 through stage 4 chronic kidney disease, or unspecified chronic kidney disease (principal); I25.10 Atherosclerotic heart disease of native coronary artery without angina pectoris; E87.20 Acidosis, unspecified; E83.52 Hypercalcemia; E78.5 Hyperlipidemia, unspecified; J84.9 Interstitial pulmonary disease, unspecified; I21.4 Non-ST elevation (NSTEMI) myocardial infarction; E11.649 Type 2 diabetes mellitus with hypoglycemia without coma; D72.829 Elevated white blood cell count, unspecified; E11.22 Type 2 diabetes mellitus with diabetic chronic kidney disease; N18.4 Chronic kidney disease, stage 4 (severe); I50.22 Chronic systolic (congestive) heart failure; Z79.4 Long term (current) use of insulin; Z86.73 Personal history of transient ischemic attack (TIA), and cerebral infarction without residual deficits; Z91.041 Radiographic dye allergy status; Z91.013 Allergy to seafood
CPT/HCPCS: 70450; 71046; 80053; 83735; 85027; 93306; 94760; 96361; 96374; 99285

== ENCOUNTER 2024-07-13 13:31 | Inpatient (IN) | payer OTHER ==
--- NOTE | 2024-07-13 13:49 | ED ---
General Adult HPI - General Chief complaint: Chest Pain Stated complaint: Chest pain Time Seen by Provider: 07/13/24 13:35 Source: EMS, RN notes reviewed, old records reviewed Mode of arrival: EMS Limitations: no limitations - History of Present Illness Initial comments: This is a 53-year-old female who presents to the emergency department complaining that she started having chest pain last night and shortness of breath as well. Patient states she has had 5 stents placed and she has had multiple strokes and she is a diabetic who continues to smoke. Patient states the pain is constant. Patient states pressing on it does not make it worse. Patient states it does feel like the similar pain when she has had previous stents placed. Patient denies any fevers chills or cough patient denies any increased swelling to the legs or calf tenderness - Related Data Home Medications Medication Instructions Recorded Confirmed Aspirin [Adult Low Dose Aspirin EC] 81 mg PO HS 11/26/17 05/20/24 DULoxetine HCL [Cymbalta] 60 mg PO DAILY 08/25/18 05/20/24 Isosorbide Mononitrate ER [Imdur] 60 mg PO DAILY 09/08/18 05/20/24 Empagliflozin [Jardiance] 10 mg PO DAILY 10/06/22 05/20/24 Famotidine 20 mg PO BID PRN 10/06/22 05/20/24 Nitroglycerin Sl Tabs [Nitrostat] 0.4 mg SL Q5M PRN 10/06/22 05/20/24 Fenofibrate [Lofibra] 160 mg PO DAILY 01/25/23 05/20/24 Pregabalin [Lyrica] 150 mg PO BID 02/05/23 05/20/24 Budesonide/Formoterol Fumarate 2 puff INHALATION RT-BID PRN 07/17/23 05/20/24 [Symbicort 160-4.5 Mcg Inhaler] INSULIN LISPRO (For Pump) [humaLOG 0.01 units SQ-PUMP CONTINUOUS 07/17/23 05/20/24 (For Pump)] Atorvastatin [Lipitor] 40 mg PO HS 12/11/23 05/20/24 Magnesium Oxide [Mag-Ox] 400 mg PO BID 03/10/24 05/20/24 ALPRAZolam [Xanax] 1 mg PO DAILY 03/28/24 05/20/24 Cinacalcet [Sensipar] 30 mg PO MOTH 03/28/24 05/20/24 Sodium Bicarbonate 325 mg PO BID 03/28/24 05/20/24 amLODIPine [Norvasc] 10 mg PO DAILY 03/28/24 05/20/24 ALPRAZolam [Xanax] 2 mg PO HS 05/04/24 05/20/24 ARIPiprazole [Abilify] 10 mg PO HS 05/04/24 05/20/24 Ondansetron Odt [Zofran ODT] 8 mg PO Q12HR 05/04/24 05/20/24 Previous Rx's Medication Instructions Recorded Clopidogrel [Plavix] 75 mg PO DAILY 30 Days #30 tab 05/13/24 Losartan [Cozaar] 25 mg PO DAILY 30 Days #30 tab 06/21/24 Metoprolol Tartrate [Lopressor] 25 mg PO TID 30 Days #90 tab 06/21/24 Sodium Bicarbonate Tab 650 mg PO BID 30 Days #60 tab 06/21/24 hydrALAZINE HCL [Apresoline] 50 mg PO BID 30 Days #60 tab 06/21/24 Allergies Allergy/AdvReac Type Severity Reaction Status Date / Time Fish Containing Products Allergy Anaphylaxis Verified 07/13/24 13:39 Iodinated Contrast Media Allergy Anaphylaxis Verified 07/13/24 13:39 [Iodinated Contrast Media - IV Dye] Sulfa (Sulfonamide Allergy Anaphylaxis Verified 07/13/24 13:39 Antibiotics) sulfamethoxazole Allergy Anaphylaxis Verified 07/13/24 13:39 [From Septra] tree nut [Nut] Allergy Anaphylaxis Verified 07/13/24 13:39 trimethoprim [From Septra] Allergy Anaphylaxis Verified 07/13/24 13:39 Review of Systems ROS Statement: Those systems with pertinent positive or pertinent negative responses have been documented in the HPI. ROS Other: All systems not noted in ROS Statement are negative. 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 HAD IA 10/27/23 Last Myocardial Infarction Date:: LAST ONE 10/27/23 History of Any Multi-Drug Resistant Organisms: None Reported Past Surgical History: Section, Cholecystectomy, Heart Catheterization With Stent, Hysterectomy, Tubal Ligation, Uterine Ablation Additional Past Surgical History / Comment(s): vein stripping right leg, radio frequency ablation of right back-02/22/2015, four stents on 04/03/16 and one on march 05, ovaries removed, colonscopy- polyp removal Past Anesthesia/Blood Transfusion Reactions: Motion Sickness Additional Past Anesthesia/Blood Transfusion Reaction / Comment(s): mild claustr ophobia Date of Last Stent Placement:: 04/03/16 Past Psychological History: Anxiety, Depression Smoking Status: Current every day smoker Past Alcohol Use History: None Reported Past Drug Use History: None Reported - Past Family History Father Family Medical History: Congestive Heart Failure (CHF), Coronary Artery Disease (CAD), Diabetes Mellitus Mother Family Medical History: Cancer, COPD, Hypertension, Respiratory Disorder Additional Family Medical History / Comment(s): emphysema, colon CA General Exam - General Exam Comments Initial Comments: GENERAL: Patient is well-developed and well-nourished. Patient is nontoxic and well- hydrated and is in mild distress. ENT: Neck is soft and supple. No significant lymphadenopathy is noted. Oropharynx is clear. Moist mucous membranes. Neck has full range of motion without eliciting any pain. EYES: The sclera were anicteric and conjunctiva were pink and moist. Extraocular movements were intact and pupils were equal round and reactive to light. Eyelids were unremarkable. PULMONARY: Crackles in the left base CARDIOVASCULAR: There is a regular rate and rhythm without any murmurs gallops or rubs. ABDOMEN: Soft and nontender with normal bowel sounds. SKIN: Skin is clear with no lesions or rashes and otherwise unremarkable. NEUROLOGIC: Patient is alert and oriented x3. Cranial nerves II through XII are grossly intact. Motor and sensory are also intact. Normal speech, volume and content. Symmetrical smile. MUSCULOSKELETAL: Normal extremities with adequate strength and full range of motion. No lower extremity swelling or edema. No calf tenderness. LYMPHATICS: No significant lymphadenopathy is noted PSYCHIATRIC: Normal psychiatric evaluation. Limitations: no limitations Course Vital Signs 07/13/24 07/13/24 13:33 14:15 Temperature 98.4 F Pulse Rate 94 91 Respiratory 18 18 Rate Blood Pressure 146/81 120/78 O2 Sat by Pulse 92 L 93 L Oximetry Medical Decision Making - Medical Decision Making EKG is interpreted by myself. EKG shows a sinus rhythm at 92 bpm FL interval is 161 QRS is 158 QT interval is 390 QTc is 440. Patient's EKG shows no ST segment elevation or depression Was pt. sent in by a medical professional or institution (, [facility], HUMAN FACTORS ENGINEER, urgent care, hospital, or detention...) When possible be specific @ -No Did you speak to anyone other than the patient for history (EMS, parent, family, police, friend...)? What history was obtained from this source @ -No Did you review nursing and triage notes (agree or disagree)? Why? @ -I reviewed and agree with nursing and triage notes Were old charts reviewed (outside hosp., previous admission, EMS record, old EKG, old radiological studies, urgent care reports/EKG's, detention records)? Report findings @ -I have reviewed prior EKGs from previous admissions latest being in April and I compared today's EKG though there is slight increase Elevation some of the inferior leads not a full box is noted. Differential Diagnosis? @ -Differential Chest Pain: Stable Angina, Unstable Angina, STEMI, NSTEMI Aortic Dissection, Pneumothorax, Musculoskeletal, Esophageal Spasm GERD, Cholecystitis, Pancreatitis, Zoster, this is not meant to be an all-inclusive list. EKG interpreted by me (3pts min.). @ -As above X-rays interpreted by me (1pt min.). @ -Chest x-ray shows no acute abnormality CT interpreted by me (1pt min.). @ -None done U/S interpreted by me (1pt. min.). @ -None done What testing was considered but not performed or refused? (CT, X-rays, U/S, labs)? Why? @ -None What meds were considered but not given or refused? Why? @ -None Did you discuss the management of the patient with other professionals (professionals i.e. , [facility]NIS, HUMAN FACTORS ENGINEER, lab, RT, psych nurse, social media job titles, donor specialist, teacher, hospital chief executive officer, disease case manager rn)? Give summary @ -I spoke with Dr. Sanchez he agreed to admit the patient admit the patient I consult cardiology. I paged cardiology but they did not respond Was smoking cessation discussed for >3mins.? @ -No Was critical care preformed (if so, how long)? @ -35 minutes Were there social determinants of health that impacted care today? How? (Homelessness, low income, unemployed, alcoholism, drug addiction, transportation, low edu. Level, literacy, decrease access to med. care, senior care, rehab)? @ -No Was there de-escalation of care discussed even if they declined (Discuss DNR or withdrawal of care, Hospice)? DNR status @ -No What co-morbidities impacted this encounter? (DM, HTN, Smoking, COPD, CAD, Cancer, CVA, ARF, Chemo, Hep., AIDS, mental health diagnosis, sleep apnea, morbid obesity)? @ -None Was patient admitted / discharged? Hospital course, mention meds given and route, prescriptions, significant lab abnormalities, going to OR and other pertinent info. @ -Patient had Nitropaste in the emergency department aspirin was given in route. Patient's chest pain did seem to improve. Patient's troponin was mildly elevated and she was started on heparin. Undiagnosed new problem with uncertain prognosis? @ -No Drug Therapy requiring intensive monitoring for toxicity (Heparin, Nitro, Insulin, Cardizem)? @ -No Were any procedures done? @ -No Diagnosis/symptom? @ -Non-STEMI Acute, or Chronic, or Acute on Chronic? @ -Acute Uncomplicated (without systemic symptoms) or Complicated (systemic symptoms)? @ -Complicated Side effects of treatment? @ -No Exacerbation, Progression, or Severe Exacerbation? @ -No Poses a threat to life or bodily function? How? (Chest pain, USA, IA, pneumonia, PE, COPD, DKA, ARF, appy, cholecystitis, CVA, Diverticulitis, Homicidal, Suicidal, threat to staff... and all critical care pts) @ -Yes this could lead to significant ejection fraction problems and endorgan dysfunction - Lab Data Result diagrams: 07/13/24 13:49 07/13/24 13:49 Lab Results 07/13/24 07/13/24 07/13/24 Range/Units 13:49 13:49 13:49 WBC 14.7 H (3.8-10.6) k/uL RBC 3.75 L (3.80-5.40) m/uL Hgb 11.5 (11.4-16.0) gm/dL Hct 36.3 (34.0-46.0) % MCV 96.8 (80.0-100.0) fL MCH 30.8 (25.0-35.0) pg MCHC 31.8 (31.0-37.0) g/dL RDW 13.8 (11.5-15.5) % Plt Count 283 (150-450) k/uL MPV 9.6 Neutrophils % 77 % Lymphocytes % 16 % Monocytes % 5 % Eosinophils % 1 % Basophils % 0 % Neutrophils # 11.3 H (1.3-7.7) k/uL Lymphocytes # 2.4 (1.0-4.8) k/uL Monocytes # 0.7 (0-1.0) k/uL Eosinophils # 0.2 (0-0.7) k/uL Basophils # 0.1 (0-0.2) k/uL Hypochromasia Slight PT 10.9 (10.0-12.5) sec INR 1.0 (<1.2) APTT 26.7 (22.0-30.0) sec Sodium 134 L (137-145) mmol/L Potassium 4.2 (3.5-5.1) mmol/L Chloride 107 (98-107) mmol/L Carbon Dioxide 21 L (22-30) mmol/L Anion Gap 6 mmol/L BUN 20 H (7-17) mg/dL Creatinine 1.59 H (0.52-1.04) mg/dL Est GFR (CKD-EPI)AfAm 43 (>60 ml/min/1.73 sqM) Est GFR (CKD-EPI)NonAf 37 (>60 ml/min/1.73 sqM) Glucose 279 H (74-99) mg/dL POC Glucose (mg/dL) (70-110) mg/dL POC Glu Analytical Laboratory Technician ID Calcium 7.8 L (8.4-10.2) mg/dL Magnesium 1.5 L (1.6-2.3) mg/dL Total Bilirubin 0.4 (0.2-1.3) mg/dL AST 27 (14-36) U/L ALT 13 (4-34) U/L Alkaline Phosphatase 124 (38-126) U/L Troponin I (0.000-0.034) ng/mL Total Protein 4.4 L (6.3-8.2) g/dL Albumin 2.2 L (3.5-5.0) g/dL 07/13/24 07/13/24 Range/Units 13:49 14:45 WBC (3.8-10.6) k/uL RBC (3.80-5.40) m/uL Hgb (11.4-16.0) gm/dL Hct (34.0-46.0) % MCV (80.0-100.0) fL MCH (25.0-35.0) pg MCHC (31.0-37.0) g/dL RDW (11.5-15.5) % Plt Count (150-450) k/uL MPV Neutrophils % % Lymphocytes % % Monocytes % % Eosinophils % % Basophils % % Neutrophils # (1.3-7.7) k/uL Lymphocytes # (1.0-4.8) k/uL Monocytes # (0-1.0) k/uL Eosinophils # (0-0.7) k/uL Basophils # (0-0.2) k/uL Hypochromasia PT (10.0-12.5) sec INR (<1.2) APTT (22.0-30.0) sec Sodium (137-145) mmol/L Potassium (3.5-5.1) mmol/L Chloride (98-107) mmol/L Carbon Dioxide (22-30) mmol/L Anion Gap mmol/L BUN (7-17) mg/dL Creatinine (0.52-1.04) mg/dL Est GFR (CKD-EPI)AfAm (>60 ml/min/1.73 sqM) Est GFR (CKD-EPI)NonAf (>60 ml/min/1.73 sqM) Glucose (74-99) mg/dL POC Glucose (mg/dL) 262 H (70-110) mg/dL POC Glu Analytical Laboratory Technician ID Deborah Delcid Calcium (8.4-10.2) mg/dL Magnesium (1.6-2.3) mg/dL Total Bilirubin (0.2-1.3) mg/dL AST (14-36) U/L ALT (4-34) U/L Alkaline Phosphatase (38-126) U/L Troponin I 0.281 H* (0.000-0.034) ng/mL Total Protein (6.3-8.2) g/dL Albumin (3.5-5.0) g/dL Disposition Clinical Impression: Acute non-ST elevation myocardial infarction (NSTEMI) Disposition: ADMITTED IP TO THIS HOSP Referrals: Dagmar Hennessy MD [Primary Care Provider] - 1-2 days Time of Disposition: 15:11
[2024-07-13] MEDS: ASPIRIN 81 MG PO STA (13:50)
[2024-07-13] MEDS: NITROGLYCERIN OINT 1 INCH/GM PACKET TOPICAL STA (13:52)
[2024-07-13 14:00] LABS: Basophils # (A) 0.1 k/uL (0-0.2); Basophils % (A) 0 %; Eosinophils # (A) 0.2 k/uL (0-0.7); Eosinophils % (A) 1 %; HCT 36.3 % (34.0-46.0); HGB 11.5 gm/dL (11.4-16.0); Hypochromasia Slight; Lymphocytes # (A) 2.4 k/uL (1.0-4.8); Lymphocytes % (A) 16 %; MCH 30.8 pg (25.0-35.0); MCHC 31.8 g/dL (31.0-37.0); MCV 96.8 fL (80.0-100.0); Mean Platelet Volume 9.6; Monocytes # (A) 0.7 k/uL (0-1.0); Monocytes % (A) 5 %; Neutrophils # (A) 11.3 k/uL (1.3-7.7); Neutrophils % (A) 77 %; Platelet Count 283 k/uL (150-450); RBC 3.75 m/uL (3.80-5.40); RDW 13.8 % (11.5-15.5); WBC 14.7 k/uL (3.8-10.6)
--- NOTE | 2024-07-13 14:14 | XR ---
EXAMINATION TYPE: XR chest 2V DATE OF EXAM: 07/13/2024 COMPARISON: 06/15/2024 INDICATION: Chest pain TECHNIQUE: Frontal and lateral views of the chest are obtained. FINDINGS: The heart size is enlarged. The pulmonary vasculature is normal. The lungs are clear. IMPRESSION: 1. Cardiome[facility]aly [facility], , 07/13/2024 2:11 PM
[2024-07-13 14:16] LABS: Partial Thromboplastin Time 26.7 sec (22.0-30.0); Prothrombin Time 10.9 sec (10.0-12.5)
[2024-07-13 14:19] LABS: ALT 13 U/L (4-34); African American GFR (CKD) 43 (>60 ml/min/1.73 sqM); Albumin 2.2 g/dL (3.5-5.0); Anion Gap 6 mmol/L; Blood Urea Nitrogen 20 mg/dL (7-17); Calcium 7.8 mg/dL (8.4-10.2); Carbon Dioxide 21 mmol/L (22-30); Chloride 107 mmol/L (98-107); Glucose 279 mg/dL (74-99); Non-African American GFR(CKD) 37 (>60 ml/min/1.73 sqM); Sodium 134 mmol/L (137-145); Total Bilirubin 0.4 mg/dL (0.2-1.3); Total Protein 4.4 g/dL (6.3-8.2)
[2024-07-13 14:24] LABS: Potassium 4.2 mmol/L (3.5-5.1)
[2024-07-13 14:25] LABS: AST 27 U/L (14-36); Alkaline Phosphatase 124 U/L (38-126); Magnesium 1.5 mg/dL (1.6-2.3)
[2024-07-13 14:47] LABS: Glucose,Whole Blood 262 mg/dL (70-110)
[2024-07-13] MEDS: MAGNESIUM SULFATE-D5W PMX 1 GM in DEXTROSE/WATER 1 100ML.BAG IVPB ONE (15:07)
[2024-07-13] MEDS ORDERED: NITROGLYCERIN SL TABS 0.4 MG TAB SUBLINGUAL PRN (15:11)
[2024-07-13] MEDS: HEPARIN SOD,PORK IN 0.45% NACL 25,000 UNIT in 0.45% NACL 1 250ML.BAG IV SCH (15:16)
[2024-07-13] MEDS: HEPARIN SODIUM 1,000 UN/ML (10ML VL) IV ONE (15:19)
[2024-07-13 18:33] LABS: Glucose,Whole Blood 173 mg/dL (70-110)
[2024-07-13] MEDS: NITROGLYCERIN OINT 1 INCH/GM PACKET TOPICAL SCH (19:11)
[2024-07-13] MEDS: HEPARIN SODIUM 1,000 UN/ML (10ML VL) IV PRN (23:35)
[2024-07-13] MEDS: FUROSEMIDE 10 MG/ML 2 ML VIAL IV ONE (23:37)
[2024-07-13] MEDS: ACETAMINOPHEN TAB 500 MG TAB PO PRN (23:42)
[2024-07-14 06:24] LABS: Glucose,Whole Blood 266 mg/dL (70-110)
[2024-07-14 07:46] LABS: Basophils # (A) 0.1 k/uL (0-0.2); Basophils % (A) 0 %; Eosinophils # (A) 0.1 k/uL (0-0.7); Eosinophils % (A) 0 %; HCT 35.3 % (34.0-46.0); HGB 11.1 gm/dL (11.4-16.0); Hypochromasia Moderate; Lymphocytes # (A) 1.7 k/uL (1.0-4.8); Lymphocytes % (A) 7 %; MCHC 31.6 g/dL (31.0-37.0); MCV 98.1 fL (80.0-100.0); Mean Platelet Volume 10.2; Monocytes # (A) 1.2 k/uL (0-1.0); Monocytes % (A) 5 %; Neutrophils # (A) 21.7 k/uL (1.3-7.7); Neutrophils % (A) 87 %; Platelet Count 342 k/uL (150-450); RDW 13.9 % (11.5-15.5); WBC 25.1 k/uL (3.8-10.6)
[2024-07-14 08:11] LABS: Prothrombin Time 11.1 sec (10.0-12.5)
[2024-07-14] MEDS: ASPIRIN 325 MG TAB PO SCH (08:18)
[2024-07-14] MEDS ORDERED: ALPRAZolam 1 MG TAB PO PRN (08:29)
[2024-07-14] MEDS ORDERED: SYMBICORT 160-4.5 MCG INHALER INHALATION PRN (08:29)
[2024-07-14] MEDS ORDERED: FAMOTIDINE 20 MG TAB PO PRN (08:29)
[2024-07-14] MEDS ORDERED: DEXTROSE 50% SYRINGE 50 ML IVP PRN ×2 (08:34)
--- NOTE | 2024-07-14 09:38 | P.HPIM ---
History of Present Illness H&P Date: 07/14/24 Leticia huff a 53-year-old female patient well-known to my services who presented with concerns of chest pain that started last night and increased shortness of breath. Patient has an extensive medical history including previous stent placement x 5, CVA, diabetes mellitus and ongoing nicotine d ependence. Chest x-ray completed showing cardiomegaly. EKG completed showing right bundle branch block. Patient negative for influenza, RSV and COVID-19. Troponin elevated at 0.246. White blood cell 14.7, sodium 134, creatinine 1.59 and bun 20. Patient was started on heparin drip due to elevated troponin. Patient also noted to have elevated temp at 100.1. Patient is also lethargic will wake up and answer questions but quickly fall back to sleep right lower extremity warm and redness noted concerns for cellulitis. At this time cardiology services have been consulted due to concerns of infection will order blood culture and UA. Patient started on IV Kefzol for lower extremity celluli tis. Infectious disease services consulted. Patient also requiring 8 L high flow nasal cannula. Will consult pulmonary services. Current vital signs temp 99.1, heart rate 89, respiratory rate 23, blood pressure 108/72 and a pulse ox of 96% on high flow 8 L patient denies any chest pain. Patient does report some shortness of breath. Patient denies any nausea vomiting or diarrhea. Patient denies any urinary burning or frequency Review of Systems Please refer to HPI otherwise unremarkable Past Medical History Past Medical History: Blood Disorder, Coronary Artery Disease (CAD), Cancer, Chest Pain / Angina, CVA/TIA, Diabetes Mellitus, Deep Vein Thrombosis (DVT), Fibromyalgia, GERD/Reflux, Hyperlipidemia, Hypertension, Myocardial Infarction ([place]), Musculoskeletal Disorder, Neurologic Disorder, Renal Disease, Sleep Apnea/ CPAP/BIPAP, Vascular Disorder Additional Past Medical History / Comment(s): IDDM type II, uterine/cervical and ovarian cancer, restless leg, Factor V blood disorder, DVT R leg, 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 HAD [place] 10/27/23 Last Myocardial Infarction Date:: LAST ONE 10/27/23 History of Any Multi-Drug Resistant Organisms: None Reported Past Surgical History: Section, Cholecystectomy, Heart Catheterization With Stent, Hysterectomy, Tubal Ligation, Uterine Ablation Additional Past Surgical History / Comment(s): vein stripping right leg, radio frequency ablation of right back-02/22/2015, four stents on 04/03/16 and one on march 05, ovaries removed, colonscopy- polyp removal Past Anesthesia/Blood Transfusion Reactions: Motion Sickness Additional Past Anesthesia/Blood Transfusion Reaction / Comment(s): mild claustrophobia Date of Last Stent Placement:: 04/03/16 Past Psychological History: Anxiety, Depression Additional Psychological History / Comment(s): Pt resides with her spouse. She is mostly in her wheelchair. She has a walker and cane. She has a dexcom. Her spouse assists her with her medication organization. Spouse also drives pt. Smoking Status: Current every day smoker Past Alcohol Use History: None Reported Additional Past Alcohol Use History / Comment(s): Pt started smoking in 1988 and quit recently Past Drug Use History: None Reported - Past Family History Father Family Medical History: Congestive Heart Failure (CHF), Coronary Artery Disease (CAD), Diabetes Mellitus Mother Family Medical History: Cancer, COPD, Hypertension, Respiratory Disorder Additional Family Medical History / Comment(s): emphysema, colon CA Medications and Allergies Home Medications Medication Instructions Recorded Confirmed Type Aspirin [Adult Low Dose Aspirin EC] 81 mg PO HS 11/26/17 07/13/24 History DULoxetine HCL [Cymbalta] 60 mg PO DAILY 08/25/18 07/13/24 History Isosorbide Mononitrate ER [Imdur] 60 mg PO DAILY 09/08/18 07/13/24 History Empagliflozin [Jardiance] 10 mg PO DAILY 10/06/22 07/13/24 History Famotidine 20 mg PO BID PRN 10/06/22 07/13/24 History Nitroglycerin Sl Tabs [Nitrostat] 0.4 mg SL Q5M PRN 10/06/22 07/13/24 History Fenofibrate [Lofibra] 160 mg PO DAILY 01/25/23 07/13/24 History Pregabalin [Lyrica] 150 mg PO BID 02/05/23 07/13/24 History Budesonide/Formoterol Fumarate 2 puff INHALATION RT-BID PRN 07/17/23 07/13/24 History [Symbicort 160-4.5 Mcg Inhaler] INSULIN LISPRO (For Pump) [humaLOG 0.01 units SQ-PUMP CONTINUOUS 07/17/23 07/13/24 History (For Pump)] Atorvastatin [Lipitor] 40 mg PO HS 12/11/23 07/13/24 History Magnesium Oxide [Mag-Ox] 400 mg PO BID 03/10/24 07/13/24 History ALPRAZolam [Xanax] 1 mg PO TID PRN 03/28/24 07/13/24 History Cinacalcet [Sensipar] 30 mg PO MOTUWETHFR 03/28/24 07/13/24 History ARIPiprazole [Abilify] 10 mg PO HS 05/04/24 07/13/24 History Ondansetron Odt [Zofran ODT] 8 mg PO Q12HR 05/04/24 07/13/24 History Clopidogrel [Plavix] 75 mg PO DAILY 30 Days #30 tab 05/13/24 07/13/24 Rx Losartan [Cozaar] 25 mg PO DAILY 30 Days #30 tab 06/21/24 07/13/24 Rx Metoprolol Tartrate [Lopressor] 25 mg PO TID 30 Days #90 tab 06/21/24 07/13/24 Rx Sodium Bicarbonate Tab 650 mg PO BID 30 Days #60 tab 06/21/24 07/13/24 Rx hydrALAZINE HCL [Apresoline] 50 mg PO BID 30 Days #60 tab 06/21/24 07/13/24 Rx Allergies Allergy/AdvReac Type Severity Reaction Status Date / Time Fish Containing Products Allergy Anaphylaxis Verified 07/13/24 15:17 Iodinated Contrast Media Allergy Anaphylaxis Verified 07/13/24 15:17 [Iodinated Contrast Media - IV Dye] Sulfa (Sulfonamide Allergy Anaphylaxis Verified 07/13/24 15:17 Antibiotics) sulfamethoxazole Allergy Anaphylaxis Verified 07/13/24 15:17 [From Septra] tree nut [Nut] Allergy Anaphylaxis Verified 07/13/24 15:17 trimethoprim [From Septra] Allergy Anaphylaxis Verified 07/13/24 15:17 Physical Exam Vitals: Vital Signs Temp Pulse Pulse Resp BP BP Pulse Ox 07/14/24 04:09 07/14/24 03:49 99.1 F 89 23 108/72 96 07/14/24 03:09 99.1 F 92 23 113/53 94 L 07/14/24 00:31 100.0 F H 97 26 H 131/81 95 07/13/24 23:52 99 23 112/86 94 L 07/13/24 23:12 07/13/24 23:11 100.7 F H 98 20 120/92 91 L 07/13/24 22:21 07/13/24 21:38 99 20 144/93 90 L 07/13/24 20:37 101 H 23 141/86 90 L 07/13/24 20:36 90 L 07/13/24 20:10 90 L 07/13/24 20:09 87 L 07/13/24 19:56 96 14 119/71 92 L 07/13/24 18:13 99.2 F 97 18 126/70 94 L 07/13/24 16:23 97 18 146/88 92 L 07/13/24 14:15 91 18 120/78 93 L 07/13/24 13:33 98.4 F 94 18 146/81 92 L FiO2 07/14/24 04:09 50 07/14/24 03:49 50 07/14/24 03:09 50 07/14/24 00:31 50 07/13/24 23:52 07/13/24 23:12 50 07/13/24 23:11 07/13/24 22:21 50 07/13/24 21:38 07/13/24 20:37 07/13/24 20:36 07/13/24 20:10 07/13/24 20:09 07/13/24 19:56 07/13/24 18:13 07/13/24 16:23 07/13/24 14:15 07/13/24 13:33 Intake and Output 07/13/24 07/14/24 07/14/24 22:59 06:59 14:59 Intake Total 82.5 112.904 Output Total 450 Balance -367.5 112.904 Intake: Intake, IV Titration 82.5 112.904 Amount Heparin Sod,Pork in 0.45% 82.5 112.904 NaCl 25,000 unit In 0.45 % NaCl 1 250ml.bag @ 10. 599 UNITS/KG/HR 10 mls/hr IV .Q24H [facility] Rx#: [id number] Output: Urine 450 Other: Voiding Method External Catheter Weight 106.5 kg Head normocephalic Neck supple Lungs diminished bilaterally with expiratory wheezing Heart regular rate and rhythm S1-S2, no rub or gallop Abdomen is soft nontender nondistended positive bowel sounds no hepatosplenomegaly Extremities right lower extremity erythema Neuro alert and orientated to 3 Results CBC & Chem 7: 07/14/24 07:09 07/13/24 13:49 Labs: Abnormal Lab Results - Last 24 Hours (Table) 07/13/24 07/13/24 07/13/24 Range/Units 13:49 13:49 13:49 WBC 14.7 H (3.8-10.6) k/uL RBC 3.75 L (3.80-5.40) m/uL Hgb (11.4-16.0) gm/dL Neutrophils # 11.3 H (1.3-7.7) k/uL Monocytes # (0-1.0) k/uL APTT (22.0-30.0) sec Sodium 134 L (137-145) mmol/L Carbon Dioxide 21 L (22-30) mmol/L BUN 20 H (7-17) mg/dL Creatinine 1.59 H (0.52-1.04) mg/dL Glucose 279 H (74-99) mg/dL POC Glucose (mg/dL) (70-110) mg/dL Calcium 7.8 L (8.4-10.2) mg/dL Magnesium 1.5 L (1.6-2.3) mg/dL Troponin I 0.281 H* (0.000-0.034) ng/mL Total Protein 4.4 L (6.3-8.2) g/dL Albumin 2.2 L (3.5-5.0) g/dL 07/13/24 07/13/24 07/13/24 Range/Units 14:45 16:40 18:32 WBC (3.8-10.6) k/uL RBC (3.80-5.40) m/uL Hgb (11.4-16.0) gm/dL Neutrophils # (1.3-7.7) k/uL Monocytes # (0-1.0) k/uL APTT (22.0-30.0) sec Sodium (137-145) mmol/L Carbon Dioxide (22-30) mmol/L BUN (7-17) mg/dL Creatinine (0.52-1.04) mg/dL Glucose (74-99) mg/dL POC Glucose (mg/dL) 262 H 173 H (70-110) mg/dL Calcium (8.4-10.2) mg/dL Magnesium (1.6-2.3) mg/dL Troponin I 0.274 H* (0.000-0.034) ng/mL Total Protein (6.3-8.2) g/dL Albumin (3.5-5.0) g/dL 07/13/24 07/14/24 07/14/24 Range/Units 19:27 06:21 07:09 WBC 25.1 H (3.8-10.6) k/uL RBC 3.60 L (3.80-5.40) m/uL Hgb 11.1 L (11.4-16.0) gm/dL Neutrophils # 21.7 H (1.3-7.7) k/uL Monocytes # 1.2 H (0-1.0) k/uL APTT (22.0-30.0) sec Sodium (137-145) mmol/L Carbon Dioxide (22-30) mmol/L BUN (7-17) mg/dL Creatinine (0.52-1.04) mg/dL Glucose (74-99) mg/dL POC Glucose (mg/dL) 266 H (70-110) mg/dL Calcium (8.4-10.2) mg/dL Magnesium (1.6-2.3) mg/dL Troponin I 0.246 H* (0.000-0.034) ng/mL Total Protein (6.3-8.2) g/dL Albumin (3.5-5.0) g/dL 07/14/24 Range/Units 07:09 WBC (3.8-10.6) k/uL RBC (3.80-5.40) m/uL Hgb (11.4-16.0) gm/dL Neutrophils # (1.3-7.7) k/uL Monocytes # (0-1.0) k/uL APTT 31.0 H (22.0-30.0) sec Sodium (137-145) mmol/L Carbon Dioxide (22-30) mmol/L BUN (7-17) mg/dL Creatinine (0.52-1.04) mg/dL Glucose (74-99) mg/dL POC Glucose (mg/dL) (70-110) mg/dL Calcium (8.4-10.2) mg/dL Magnesium (1.6-2.3) mg/dL Troponin I (0.000-0.034) ng/mL Total Protein (6.3-8.2) g/dL Albumin (3.5-5.0) g/dL Thrombosis Risk Factor Assmnt - Choose All That Apply Any of the Below Risk Factors Present?: Yes Each Factor Represents 1 point: Age 41-60 years, Obesity (BMI >25) Thrombosis Risk Factor Assessment Total Risk Factor Score: 2 Thrombosis Risk Factor Assessment Level: Low Risk Assessment and Plan Assessment: 1. Chest pain with elevated troponin 2. Febrile and leukocytosis. RSV COVID and influenza negative chest x-ray negative. Blood culture and urine cultures ordered 3. Right lower extremity cellulitis patient started on IV kefzol 4. Respiratory failure requiring 8 L nasal cannula. Pulmonary services consulted 5. History of coronary artery disease with previous stent placement x 5 6. History of CVA 7. History of insulin-dependent diabetes mellitus maintained on home insulin pump this was DC'd during hospitalization sliding scale coverage added 8. History of hyperlipidemia 9. History of chronic kidney disease 10. Ongoing nicotine dependence DVT prophylaxis heparin drip. GI prophylaxis Protonix Cardiology, infectious disease and pulmonary services consulted Patient started on IV heparin drip Patient started on IV antibiotic Blood and urine cultures ordered Repeat labs ordered Time with Patient: Greater than 30 (Greater than 60% of the total time spent in counseling and coordination of care)
[2024-07-14] MEDS: METOPROLOL TARTRATE 25 MG TAB PO SCH (09:50)
[2024-07-14] MEDS: SODIUM BICARBONATE TAB 650 MG TAB PO SCH (09:50)
[2024-07-14] MEDS: FUROSEMIDE 10 MG/ML 4 ML VIAL IV SCH (10:00)
[2024-07-14] MEDS: PREGABALIN 75 MG CAP PO SCH (10:01)
[2024-07-14] MEDS: carvediloL 12.5 MG TAB PO SCH (10:01)
[2024-07-14] MEDS: FENOFIBRATE 160 MG TAB PO SCH (10:02)
[2024-07-14] MEDS: DULoxetine HCL 60 MG CAPSULE.DR PO SCH (10:02)
[2024-07-14] MEDS: MAGNESIUM OXIDE 400 MG TAB PO SCH (10:02)
[2024-07-14] MEDS: ISOSORBIDE MONONITRATE ER 30 MG TAB.ER.24H PO SCH (10:02)
[2024-07-14] MEDS: DAPAGLIFLOZIN PROPANEDIOL 5 MG TABLET PO SCH (10:02)
[2024-07-14] MEDS: HEPARIN SODIUM,PORCINE 5,000 UNIT/ML 1 ML VIAL SQ SCH (10:03)
[2024-07-14] MEDS: CINACALCET 30 MG TAB PO SCH (10:03)
[2024-07-14] MEDS: ISOSORBIDE MONONITRATE ER 60 MG TAB.ER.24H PO SCH (10:17)
[2024-07-14 11:13] LABS: Chol/HDL Ratio 2.37 Ratio; LDL Cholesterol,Calculated 56.3 mg/dL (0.0-131.0); VLDL Calculation 18.18 mg/dL (5.00-40.00)
[2024-07-14 11:34] LABS: Appearance,Urine Clear (Clear); Bacteria,Urine Rare /hpf; Bilirubin,Urine Negative (Negative); Blood,Urine Negative (Negative); Color,Urine Light Yellow; Glucose,Urine (UA) 4+ (Negative); Ketones,Urine Negative (Negative); Leukocyte Esterase,Urine Negative (Negative); Nitrite,Urine Negative (Negative); Protein,Urine 3+ (Negative); Squamous Epithelial Cell,Urine 1 /hpf (0-4); Urobilinogen,Urine <2.0 mg/dL (<2.0); WBC,Urine 2 /hpf (0-5)
[2024-07-14 11:43] LABS: Glucose,Whole Blood 278 mg/dL (70-110)
[2024-07-14] MEDS: INSULIN ASPART (NovoLOG) 100 UNIT/ML VIAL SQ SCH (12:36)
--- NOTE | 2024-07-14 12:51 | P.CRDCN ---
History of Present Illness History of present illness: HISTORY OF PRESENT ILLNESS: This is a 53-year-old female with a past medical history significant for hypertension, hyperlipidemia, diabetes, CAD with previous multivessel stenting, chronic kidney disease, and bipolar disorder. Patient follows in the office with Dr. Jasso. We have been asked to see the patient in consultation for non-STEMI. Patient examined at the bedside. Patient spouse is at the bedside. Patient states she does not remember why she came to the hospital. Patient's spouse states that she has been feeling weak, dizzy, and tired for the past week. He states that she was unable to come down her stairs and he had to call EMS. The patient denies having any chest pain or pressure. At the time of examination she denies any shortness of breath. She is somewhat lethargic upon examination. She is currently on 8 L high flow nasal cannula. Blood pressures are currently soft with a recent reading of 90/52. She has a low-grade fever of 99.8. DIAGNOSTICS: - EKG reveals sinus mechanism with LVH, IVCD - Chest xray cardiomegaly - Laboratory data: WBC 25.1. Hemoglobin 11.1. Platelet count 342. Sodium 134. Potassium 4.2. BUN 20. Creatinine 1.59. Magnesium 1.5. Troponin 0.281. 0.274. 0.246. - Current home cardiac medications include aspirin 81 mg daily, Lipitor 40 mg at night, Plavix 75 mg daily, Jardiance 10 mg daily, Imdur 60 mg daily, losartan 25 mg daily, metoprolol tartrate 25 mg 3 times a day, hydralazine 50 mg twice a day - Most recent echocardiogram obtained in May 2024 revealed ejection fraction 55 to 60%, LVH, mild mitral and tricuspid regurgitation - Cardiac catheterization history: November 2023 revealing 60% mid RCA stenosis involving the previously stented segment. Patent stents within the RCA, LAD, and diagonal with moderate nonobstructive disease involving the LAD and the ostial portion of the diagonal branch. Patient underwent IFR of mid RCA by Dr. Mckeon which came to be an abnormal at 0.84. Given long area of prior stenting with increased long-term risk of restenosis, consider medical therapy. If patient having consistent angina would recommend staged PCI of RCA REVIEW OF SYSTEMS: At the time of my exam: CONSTITUTIONAL: Denies fever or chills. HEENT: Denies blurred vision, vision changes, or eye pain. Denies hemoptysis CARDIOVASCULAR: Denies chest pain. Denies orthopnea. Denies PND. Denies palpitations RESPIRATORY: Denies shortness of breath. GASTROINTESTINAL: Denies abdominal pain. Denies nausea or vomiting. HEMATOLOGIC: Denies bleeding disorders. GENITOURINARY: Denies any blood in urine. SKIN: Denies pruitis. Denies rash. PHYSICAL EXAM: VITAL SIGNS: Reviewed. GENERAL: Well-developed in no acute distress. HEENT: Head is normocephalic. Pupils are equal, round. Sclerae anicteric. Mucous membranes of the mouth are moist. Neck supple. No JVD or thyromegaly LUNGS: Respirations even and unlabored. Lungs with mild wheezing noted HEART: Regular rate and rhythm. S1 and S2 heard. ABDOMEN: Soft. Nondistended. Nontender. EXTREMITIES: Normal range of motion. No clubbing or cyanosis. Peripheral pulses intact. Right lower extremity with erythema noted. NEUROLOGIC: Awake and alert. Lethargic ASSESSMENT: Generalized weakness Recent admissions for syncope and TIA Right lower extremity cellulitis Sepsis with fever and leukocytosis Acute hypoxic respiratory failure requiring supplemental oxygen Coronary artery disease with previous multivessel stenting Chronic kidney disease History of TIA Left ventricular hypertrophy Chronically elevated troponins, flat, secondary to poor renal clearance/LVH, no evidence of myocardial injury or ischemia, no clinical significance Hypertension Hyperlipidemia PLAN: An acute coronary event has been ruled out No need to repeat echocardiogram as this was performed in May 2024 Discontinue IV heparin. Begin subcu heparin Discontinue metoprolol. Begin carvedilol 25 mg twice a day Decrease Imdur to 30 mg daily Discontinue hydralazine Discontinue sodium bicarb tablets Dr. Briones recommends eventual outpatient MRI Infectious disease has been consulted. Continue antibiotics per infectious disease. Further recommendations pending patient course Nurse practitioner note has been reviewed by physician. Signing provider agrees with the documented findings, assessment, and plan of care documented by [employer] as a scribe. 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 HAD [place] 10/27/23 Last Myocardial Infarction Date:: LAST ONE 10/27/23 History of Any Multi-Drug Resistant Organisms: None Reported Past Surgical History: Section, Cholecystectomy, Heart Catheterization With Stent, Hysterectomy, Tubal Ligation, Uterine Ablation Additional Past Surgical History / Comment(s): vein stripping right leg, radio frequency ablation of right back-02/22/2015, four stents on 04/03/16 and one on march 05, ovaries removed, colonscopy- polyp removal Past Anesthesia/Blood Transfusion Reactions: Motion Sickness Additional Past Anesthesia/Blood Transfusion Reaction / Comment(s): mild claustrophobia Date of Last Stent Placement:: 04/03/16 Past Psychological History: Anxiety, Depression Additional Psychological History / Comment(s): Pt resides with her spouse. She is mostly in her wheelchair. She has a walker and cane. She has a dexcom. Her spouse assists her with her medication organization. Spouse also drives pt. Smoking Status: Current every day smoker Past Alcohol Use History: None Reported Additional Past Alcohol Use History / Comment(s): Pt started smoking in 1988 and quit recently Past Drug Use History: None Reported - Past Family History Father Family Medical History: Congestive Heart Failure (CHF), Coronary Artery Disease (CAD), Diabetes Mellitus Mother Family Medical History: Cancer, COPD, Hypertension, Respiratory Disorder Additional Family Medical History / Comment(s): emphysema, colon CA Medications and Allergies Home Medications Medication Instructions Recorded Confirmed Type Aspirin [Adult Low Dose Aspirin EC] 81 mg PO HS 11/26/17 07/13/24 History DULoxetine HCL [Cymbalta] 60 mg PO DAILY 08/25/18 07/13/24 History Isosorbide Mononitrate ER [Imdur] 60 mg PO DAILY 09/08/18 07/13/24 History Empagliflozin [Jardiance] 10 mg PO DAILY 10/06/22 07/13/24 History Famotidine 20 mg PO BID PRN 10/06/22 07/13/24 History Nitroglycerin Sl Tabs [Nitrostat] 0.4 mg SL Q5M PRN 10/06/22 07/13/24 History Fenofibrate [Lofibra] 160 mg PO DAILY 01/25/23 07/13/24 History Pregabalin [Lyrica] 150 mg PO BID 02/05/23 07/13/24 History Budesonide/Formoterol Fumarate 2 puff INHALATION RT-BID PRN 07/17/23 07/13/24 History [Symbicort 160-4.5 Mcg Inhaler] INSULIN LISPRO (For Pump) [humaLOG 0.01 units SQ-PUMP CONTINUOUS 07/17/2307/13 History (For Pump)] Atorvastatin [Lipitor] 40 mg PO HS 12/11/23 07/13/24 History Magnesium Oxide [Mag-Ox] 400 mg PO BID 03/10/24 07/13/24 History ALPRAZolam [Xanax] 1 mg PO TID PRN 03/28/24 07/13/24 History Cinacalcet [Sensipar] 30 mg PO MOTUWETHFR 03/28/24 07/13/24 History ARIPiprazole [Abilify] 10 mg PO HS 05/04/24 07/13/24 History Ondansetron Odt [Zofran ODT] 8 mg PO Q12HR 05/04/24 07/13/24 History Clopidogrel [Plavix] 75 mg PO DAILY 30 Days #30 tab 05/13/24 07/13/24 Rx Losartan [Cozaar] 25 mg PO DAILY 30 Days #30 tab 06/21/24 07/13/24 Rx Metoprolol Tartrate [Lopressor] 25 mg PO TID 30 Days #90 tab 06/21/24 07/13/24 Rx Sodium Bicarbonate Tab 650 mg PO BID 30 Days #60 tab 06/21/24 07/13/24 Rx hydrALAZINE HCL [Apresoline] 50 mg PO BID 30 Days #60 tab 06/21/24 07/13/24 Rx Allergies Allergy/AdvReac Type Severity Reaction Status Date / Time Fish Containing Products Allergy Anaphylaxis Verified 07/13/24 15:17 Iodinated Contrast Media Allergy Anaphylaxis Verified 07/13/24 15:17 [Iodinated Contrast Media - IV Dye] Sulfa (Sulfonamide Allergy Anaphylaxis Verified 07/13/24 15:17 Antibiotics) sulfamethoxazole Allergy Anaphylaxis Verified 07/13/24 15:17 [From ] tree nut [Nut] Allergy Anaphylaxis Verified 07/13/24 15:17 trimethoprim [From ] Allergy Anaphylaxis Verified 07/13/24 15:17 Physical Exam Vitals: Vital Signs Temp Pulse Pulse Resp BP BP Pulse Ox 07/14/24 11:27 83 16 90/52 87 L 07/14/24 08:00 99.8 F H 104 H 22 129/83 92 L 07/14/24 04:09 07/14/24 03:49 99.1 F 89 23 108/72 96 07/14/24 03:09 99.1 F 92 23 113/53 94 L 07/14/24 00:31 100.0 F H 97 26 H 131/81 95 07/13/24 23:52 99 23 112/86 94 L 07/13/24 23:12 07/13/24 23:11 100.7 F H 98 20 120/92 91 L 07/13/24 22:21 07/13/24 21:38 99 20 144/93 90 L 07/13/24 20:37 101 H 23 141/86 90 L 07/13/24 20:36 90 L 07/13/24 20:10 90 L 07/13/24 20:09 87 L 07/13/24 19:56 96 14 119/71 92 L 07/13/24 18:13 99.2 F 97 18 126/70 94 L 07/13/24 16:23 97 18 146/88 92 L 07/13/24 14:15 91 18 120/78 93 L 07/13/24 13:33 98.4 F 94 18 146/81 92 L FiO2 07/14/24 11:27 07/14/24 08:00 07/14/24 04:09 50 07/14/24 03:49 50 07/14/24 03:09 50 07/14/24 00:31 50 07/13/24 23:52 07/13/24 23:12 50 07/13/24 23:11 07/13/24 22:21 50 07/13/24 21:38 07/13/24 20:37 07/13/24 20:36 07/13/24 20:10 07/13/24 20:09 07/13/24 19:56 07/13/24 18:13 07/13/24 16:23 07/13/24 14:15 07/13/24 13:33 Intake and Output 07/13/24 07/14/24 07/14/24 22:59 06:59 14:59 Intake Total 82.5 362.904 Output Total 450 900 Balance -367.5 -537.096 Intake: Intake, IV Titration 82.5 112.904 Amount Heparin Sod,Pork in 0.45% 82.5 112.904 NaCl 25,000 unit In 0.45 % NaCl 1 250ml.bag @ 10. 599 UNITS/KG/HR 10 mls/hr IV .Q24H [facility] Rx#: [id number] Oral 250 Output: Urine 450 900 Other: Voiding Method External Catheter External Catheter Weight 106.5 kg Results 07/14/24 07:09 07/13/24 13:49 Cardiac Enzymes 07/13/24 07/13/24 07/13/24 Range/Units 13:49 13:49 16:40 AST 27 (14-36) U/L Troponin I 0.281 H* 0.274 H* (0.000-0.034) ng/mL 07/13/24 Range/Units 19:27 AST (14-36) U/L Troponin I 0.246 H* (0.000-0.034) ng/mL Coagulation 07/13/24 07/13/24 07/14/24 Range/Units 13:49 21:57 07:09 PT 10.9 11.1 (10.0-12.5) sec APTT 26.7 28.6 31.0 H (22.0-30.0) sec Lipids 07/14/24 Range/Units 07:09 Triglycerides 90.90 (0.00-149.00) mg/dL Cholesterol 129.00 (0.00-200.00) mg/dL HDL Cholesterol 54.50 (40.00-60.00) mg/dL Cholesterol/HDL Ratio 2.37 Ratio CBC 07/13/24 07/14/24 Range/Units 13:49 07:09 WBC 14.7 H 25.1 H (3.8-10.6) k/uL RBC 3.75 L 3.60 L (3.80-5.40) m/uL Hgb 11.5 11.1 L (11.4-16.0) gm/dL Hct 36.3 35.3 (34.0-46.0) % Plt Count 283 342 (150-450) k/uL Comprehensive Metabolic Panel 07/13/24 Range/Units 13:49 Sodium 134 L (137-145) mmol/L Potassium 4.2 (3.5-5.1) mmol/L Chloride 107 (98-107) mmol/L Carbon Dioxide 21 L (22-30) mmol/L BUN 20 H (7-17) mg/dL Creatinine 1.59 H (0.52-1.04) mg/dL Glucose 279 H (74-99) mg/dL Calcium 7.8 L (8.4-10.2) mg/dL AST 27 (14-36) U/L ALT 13 (4-34) U/L Alkaline Phosphatase 124 (38-126) U/L Total Protein 4.4 L (6.3-8.2) g/dL Albumin 2.2 L (3.5-5.0) g/dL Current Medications Generic Name Dose Route Start Last Admin Trade Name Freq PRN Reason Stop Dose Admin Acetaminophen 500 mg 07/13/24 23:28 07/13/24 23:42 Acetaminophen Tab 500 Mg Tab PO 500 mg Q6HR PRN Administration Fever and/ or Pain Alprazolam 1 mg 07/14/24 08:29 Alprazolam 1 Mg Tab PO TID PRN Anxiety Aripiprazole 10 mg 07/14/24 21:00 Aripiprazole 10 Mg Tab PO HS [facility] Aspirin 81 mg 07/15/24 09:00 Aspirin 81 Mg PO DAILY [facility] Atorvastatin Calcium 40 mg 07/14/24 21:00 Atorvastatin 40 Mg Tab PO HS [facility] Budesonide/Formoterol Fumarate 2 puff 07/14/24 08:29 Symbicort 160-4.5 Mcg Inhaler INHALATION RT-BID PRN COPD Carvedilol 25 mg 07/14/24 10:00 07/14/24 10:01 Carvedilol 12.5 Mg Tab PO 25 mg BID-W/MEALS [facility] Administration Cinacalcet 30 mg 07/14/24 09:00 07/14/24 10:03 Cinacalcet 30 Mg Tab PO 30 mg MOTUWETHFR [facility] Administration Dapagliflozin 5 mg 07/14/24 09:00 07/14/24 10:02 Dapagliflozin Propanediol 5 Mg Tablet PO 5 mg DAILY [facility] Administration Dextrose/Water 25 ml 07/14/24 08:34 Dextrose 50% Syringe 50 Ml IVP PER PROTOCOL PRN Hypoglycemia Protocol Dextrose/Water 50 ml 07/14/24 08:34 Dextrose 50% Syringe 50 Ml IVP PER PROTOCOL PRN Hypoglycemia Protocol Duloxetine HCl 60 mg 07/14/24 09:00 07/14/24 10:02 Duloxetine Hcl 60 Mg Capsule.Dr PO 60 mg DAILY [facility] Administration Famotidine 20 mg 07/14/24 08:29 Famotidine 20 Mg Tab PO BID PRN acid reflux Fenofibrate 160 mg 07/14/24 09:00 07/14/24 10:02 Fenofibrate 160 Mg Tab PO 160 mg DAILY [facility] Administration Furosemide 40 mg 07/14/24 10:00 07/14/24 10:00 Furosemide 10 Mg/Ml 4 Ml Vial IV 40 mg DAILY [facility] Administration Heparin Sodium (Porcine) 5,000 unit 07/14/24 10:00 07/14/24 10:03 Heparin Sodium,Porcine 5,000 Unit/Ml 1 Ml Vial SQ Not Given Q8HR [facility] Cefazolin Sodium 1,000 mg/ 50 mls @ 100 mls/hr 07/14/24 16:00 Sodium Chloride IVPB Q8HR [facility] Protocol Insulin Aspart 0 unit 07/14/24 12:30 07/14/24 12:36 Insulin Aspart (Novolog) 100 Unit/Ml Vial SQ 3 unit ACHS SARAHY Administration Protocol Isosorbide Mononitrate 30 mg 07/14/24 10:00 07/14/24 10:02 Isosorbide Mononitrate Er 30 Mg Tab.Er.24h PO 30 mg DAILY [facility] Administration Magnesium Oxide 400 mg 07/14/24 09:00 07/14/24 10:02 Magnesium Oxide 400 Mg Tab PO 400 mg BID [facility] Administration Nitroglycerin 0.4 mg 07/13/24 15:11 Nitroglycerin Sl Tabs 0.4 Mg Tab SUBLINGUAL Q5M PRN Chest Pain Pantoprazole Sodium 40 mg 07/15/24 07:30 Pantoprazole 40 Mg Tablet PO AC-BRKFST [facility] Pregabalin 150 mg 07/14/24 09:00 07/14/24 10:01 Pregabalin 75 Mg Cap PO 150 mg BID SARAHY Administration Intake and Output 07/13/24 07/14/24 07/14/24 22:59 06:59 14:59 Intake Total 82.5 362.904 Output Total 450 900 Balance -367.5 -537.096 Intake: Intake, IV Titration 82.5 112.904 Amount Heparin Sod,Pork in 0.45% 82.5 112.904 NaCl 25,000 unit In 0.45 % NaCl 1 250ml.bag @ 10. 599 UNITS/KG/HR 10 mls/hr IV .Q24H [facility] Rx#: [id number] Oral 250 Output: Urine 450 900 Other: Voiding Method External Catheter External Catheter Weight 106.5 kg 07/14/24 07:09 07/13/24 13:49
--- NOTE | 2024-07-14 14:20 | P.CNPUL ---
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 She presented here to the emergency room yesterday with complaints of chest pain and shortness of breath. EKG reveals sinus rhythm with a left bundle branch block. X-ray reveals evidence of cardiomegaly. White count 25.1. Hemoglobin 11.1. Plate lets 342. Glucose 278. Troponins 0.281, 0.274, 0.246. She was initially on a heparin drip per cardiology. An echocardiogram from May 2024 revealed severe left ventricular hypertrophy, preserved left ventricular systolic function with an ejection fraction of 55 to 60%. No significant valvular abnormalities. She has been initiated on IV diuretics. Currently in a negative balance. Review of Systems REVIEW OF SYSTEMS: CONSTITUTIONAL: Denies any recent significant weight loss or weight gain. EYES: Denies change in vision. EARS, NOSE, MOUTH, THROAT: Denies headaches, denies sore throat. CARDIOVASCULAR: Positive for chest pain, no palpitations or syncopal episodes. RESPIRATORY: Positive for shortness of breath, no cough, congestion or hemoptysis. GASTROINTESTINAL: Denies change in appetite, denies abdominal pain GENITOURINARY: Denies hematuria, denies infections. MUSKULOSKELETAL: Denies pain, denies swelling. INTEGUMENTARY: Denies rash, denies eczema. NEUROLOGICAL: Denies recent memory loss, no recent seizure activity. PSYCHIATRIC: Denies anxiety, denies depression. HEMATOLOGIC/LYMPHATIC: Denies anemia, denies enlarged lymph nodes. Past Medical History Past Medical History: Blood Disorder, Coronary Artery Disease (CAD), Cancer, Chest Pain / Angina, CVA/TIA, Diabetes Mellitus, Deep Vein Thrombosis (DVT), Fi bromyalgia, GERD/Reflux, Hyperlipidemia, Hypertension, Myocardial Infarction ([place]), Musculoskeletal Disorder, Neurologic Disorder, Renal Disease, Sleep Apnea/CPAP/BIPAP, Vascular Disorder Additional Past Medical History / Comment(s): IDDM type II, uterine/cervical and ovarian cancer, restless leg, Factor V blood disorder, DVT R leg, 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 - slight foot drag when tired/neuropathies, MS, [place] X 5, ABIGAIL with Cpap use, PAD/legs, R leg edema, past pancreatitis. HAD NH 10/27/23 Last Myocardial Infarction Date:: LAST ONE 10/27/23 History of Any Multi-Drug Resistant Organisms: None Reported Past Surgical History: Section, Cholecystectomy, Heart Catheterization With Stent, Hysterectomy, Tubal Ligation, Uterine Ablation Additional Past Surgical History / Comment(s): vein stripping right leg, radio frequency ablation of right back-02/22/2015, four stents on 04/03/16 and one on march 05, ovaries removed, colonscopy- polyp removal Past Anesthesia/Blood Transfusion Reactions: Motion Sickness Additional Past Anesthesia/Blood Transfusion Reaction / Comment(s): mild claustrophobia Date of Last Stent Placement:: 04/03/16 Past Psychological History: Anxiety, Depression Additional Psychological History / Comment(s): Pt resides with her spouse. She is mostly in her wheelchair. She has a walker and cane. She has a dexcom. Her spouse assists her with her medication organization. Spouse also drives pt. Smoking Status: Current every day smoker Past Alcohol Use History: None Reported Additional Past Alcohol Use History / Comment(s): Pt started smoking in 1988 and quit recently Past Drug Use History: None Reported - Past Family History Father Family Medical History: Congestive Heart Failure (CHF), Coronary Artery Disease (CAD), Diabetes Mellitus Mother Family Medical History: Cancer, COPD, Hypertension, Respiratory Disorder Additional Family Medical History / Comment(s): emphysema, colon CA Medications and Allergies Home Medications Medication Instructions Recorded Confirmed Type Aspirin [Adult Low Dose Aspirin EC] 81 mg PO HS 11/26/17 07/13/24 History DULoxetine HCL [Cymbalta] 60 mg PO DAILY 08/25/18 07/13/24 History Isosorbide Mononitrate ER [Imdur] 60 mg PO DAILY 09/08/18 07/13/24 History Empagliflozin [Jardiance] 10 mg PO DAILY 10/06/22 07/13/24 History Famotidine 20 mg PO BID PRN 10/06/22 07/13/24 History Nitroglycerin Sl Tabs [Nitrostat] 0.4 mg SL Q5M PRN 10/06/22 07/13/24 History Fenofibrate [Lofibra] 160 mg PO DAILY 01/25/23 07/13/24 History Pregabalin [Lyrica] 150 mg PO BID 02/05/23 07/13/24 History Budesonide/Formoterol Fumarate 2 puff INHALATION RT-BID PRN 07/17/23 07/13/24 History [Symbicort 160-4.5 Mcg Inhaler] INSULIN LISPRO (For Pump) [humaLOG 0.01 units SQ-PUMP CONTINUOUS 07/17/23 07/13/24 History (For Pump)] Atorvastatin [Lipitor] 40 mg PO HS 12/11/23 07/13/24 History Magnesium Oxide [Mag-Ox] 400 mg PO BID 03/10/24 07/13/24 History ALPRAZolam [Xanax] 1 mg PO TID PRN 03/28/24 07/13/24 History Cinacalcet [Sensipar] 30 mg PO MOTUWETHFR 03/28/24 07/13/24 History ARIPiprazole [Abilify] 10 mg PO HS 05/04/24 07/13/24 History Ondansetron Odt [Zofran ODT] 8 mg PO Q12HR 05/04/24 07/13/24 History Clopidogrel [Plavix] 75 mg PO DAILY 30 Days #30 tab 05/13/24 07/13/24 Rx Losartan [Cozaar] 25 mg PO DAILY 30 Days #30 tab 06/21/24 07/13/24 Rx Metoprolol Tartrate [Lopressor] 25 mg PO TID 30 Days #90 tab 06/21/24 07/13/24 Rx Sodium Bicarbonate Tab 650 mg PO BID 30 Days #60 tab 06/21/24 07/13/24 Rx hydrALAZINE HCL [Apresoline] 50 mg PO BID 30 Days #60 tab 06/21/24 07/13/24 Rx Allergies Allergy/AdvReac Type Severity Reaction Status Date / Time Fish Containing Products Allergy Anaphylaxis Verified 07/13/24 15:17 Iodinated Contrast Media Allergy Anaphylaxis Verified 07/13/24 15:17 [Iodinated Contrast Media - IV Dye] Sulfa (Sulfonamide Allergy Anaphylaxis Verified 07/13/24 15:17 Antibiotics) sulfamethoxazole Allergy Anaphylaxis Verified 07/13/24 15:17 [From Septra] tree nut [Nut] Allergy Anaphylaxis Verified 07/13/24 15:17 trimethoprim [From ] Allergy Anaphylaxis Verified 07/13/24 15:17 Physical Exam Vitals: Vital Signs Temp Pulse Pulse Resp BP BP Pulse Ox 07/14/24 11:27 83 16 90/52 87 L 07/14/24 08:00 99.8 F H 104 H 22 129/83 92 L 07/14/24 04:09 07/14/24 03:49 99.1 F 89 23 108/72 96 07/14/24 03:09 99.1 F 92 23 113/53 94 L 07/14/24 00:31 100.0 F H 97 26 H 131/81 95 07/13/24 23:52 99 23 112/86 94 L 07/13/24 23:12 07/13/24 23:11 100.7 F H 98 20 120/92 91 L 07/13/24 22:21 07/13/24 21:38 99 20 144/93 90 L 07/13/24 20:37 101 H 23 141/86 90 L 07/13/24 20:36 90 L 07/13/24 20:10 90 L 07/13/24 20:09 87 L 07/13/24 19:56 96 14 119/71 92 L 07/13/24 18:13 99.2 F 97 18 126/70 94 L 07/13/24 16:23 97 18 146/88 92 L 07/13/24 14:15 91 18 120/78 93 L FiO2 07/14/24 11:27 07/14/24 08:00 07/14/24 04:09 50 07/14/24 03:49 50 07/14/24 03:09 50 07/14/24 00:31 50 07/13/24 23:52 07/13/24 23:12 50 07/13/24 23:11 07/13/24 22:21 50 07/13/24 21:38 07/13/24 20:37 07/13/24 20:36 07/13/24 20:10 07/13/24 20:09 07/13/24 19:56 07/13/24 18:13 07/13/24 16:23 07/13/24 14:15 Intake and Output 07/13/24 07/14/24 07/14/24 22:59 06:59 14:59 Intake Total 82.5 480.904 Output Total 450 900 Balance -367.5 -419.096 Intake: Intake, IV Titration 82.5 112.904 Amount Heparin Sod,Pork in 0.45% 82.5 112.904 NaCl 25,000 unit In 0.45 % NaCl 1 250ml.bag @ 10. 599 UNITS/KG/HR 10 mls/hr IV .Q24H [facility] Rx#: [id number] Oral 368 Output: Urine 450 900 Other: Voiding Method External Catheter External Catheter Weight 106.5 kg GENERAL EXAM: Alert,, slow to respond 53-year-old female, on 8 L high flow nasal cannula, comfortable in no apparent distress. HEAD: Normocephalic. EYES: Normal reaction of pupils, equal size. NOSE: Clear with pink turbinates. THROAT: No erythema or exudates. NECK: No masses, no JVD. CHEST: No chest wall deformity. LUNGS: Equal air entry with faint crackles in the posterior bases. CVS: S1 and S2 normal with no audible murmur, regular rhythm. ABDOMEN: No hepatosplenomegaly, normal bowel sounds, no guarding or rigidity. SPINE: No scoliosis or deformity SKIN: No rashes CENTRAL NERVOUS SYSTEM: Right sided weakness, tone is normal in all 4 extremities. EXTREMITIES: Right lower extremity with redness and warmth. There is 1+ peripheral edema. No clubbing, no cyanosis. Peripheral pulses are intact. Results - Laboratory Findings CBC and BMP: 07/14/24 07:09 07/13/24 13:49 PT/INR, D-dimer PT 11.1 sec (10.0-12.5) 07/14/24 07:09 INR 1.0 (<1.2) 07/14/24 07:09 Abnormal lab findings: Abnormal Labs 07/13/24 07/13/24 07/13/24 13:49 13:49 13:49 WBC 14.7 H RBC 3.75 L Hgb Neutrophils # 11.3 H Monocytes # APTT Sodium 134 L Carbon Dioxide 21 L BUN 20 H Creatinine 1.59 H Glucose 279 H POC Glucose (mg/dL) Calcium 7.8 L Magnesium 1.5 L Troponin I 0.281 H* Total Protein 4.4 L Albumin 2.2 L Urine Protein Urine Glucose (UA) Urine Bacteria 07/13/24 07/13/24 07/13/24 14:45 16:40 18:32 WBC RBC Hgb Neutrophils # Monocytes # APTT Sodium Carbon Dioxide BUN Creatinine Glucose POC Glucose (mg/dL) 262 H 173 H Calcium Magnesium Troponin I 0.274 H* Total Protein Albumin Urine Protein Urine Glucose (UA) Urine Bacteria 07/13/24 07/14/24 07/14/24 19:27 06:21 07:09 WBC 25.1 H RBC 3.60 L Hgb 11.1 L Neutrophils # 21.7 H Monocytes # 1.2 H APTT Sodium Carbon Dioxide BUN Creatinine Glucose POC Glucose (mg/dL) 266 H Calcium Magnesium Troponin I 0.246 H* Total Protein Albumin Urine Protein Urine Glucose (UA) Urine Bacteria 07/14/24 07/14/24 07/14/24 07:09 11:13 11:41 WBC RBC Hgb Neutrophils # Monocytes # APTT 31.0 H Sodium Carbon Dioxide BUN Creatinine Glucose POC Glucose (mg/dL) 278 H Calcium Magnesium Troponin I Total Protein Albumin Urine Protein 3+ H Urine Glucose (UA) 4+ H Urine Bacteria Rare H - Diagnostic Findings Chest x-ray: image reviewed Assessment and Plan Assessment: Chest pain in a patient with a known history of coronary artery disease, acute coronary syndrome ruled out Acute hypoxemic respiratory failure secondary to possible COPD exacerbation versus early pneumonia Right lower extremity cellulitis Febrile illness secondary to above Leukocytosis secondary to above Chronic and ongoing tobacco dependence Coronary artery disease with multiple stent placements Chronic kidney disease History of double TIA/CVAs with residual right sided weakness Diabetes mellitus History of anxiety/depression Fibromyalgia Hypertension Hyperlipidemia Obstructive sleep apnea utilizing CPAP History of uterine/ovarian cancer Factor V blood disorder Plan: The patient was seen and evaluated Chest x-ray, labs and medications reviewed Continue cefazolin for now Check a procalcitonin Continue Symbicort, add DuoNeb inhalations Add prednisone taper Continue IV diuretics Heparin for DVT prophylaxis Titrate down the FiO2 as tolerated We will continue to follow and make further recommendations based on her clinical status I have personally seen and examined the patient, performed the documentation and the assessment and plan as written. Number of minutes spent on the visit: 20.
[2024-07-14] MEDS ORDERED: IPRATROPIUM-ALBUTEROL 3 ML NEB INHALATION PRN (14:22)
[2024-07-14] MEDS: IPRATROPIUM-ALBUTEROL 3 ML NEB INHALATION SCH (15:30)
[2024-07-14] MEDS: PIPERACILLIN-TAZOBACTAM 3.375 GM in SODIUM CHLORIDE 0.9% 100 ML IVPB SCH (15:31)
[2024-07-14 16:28] LABS: Glucose,Whole Blood 283 mg/dL (70-110)
[2024-07-14] MEDS: ATORVASTATIN 40 MG TAB PO SCH (20:08)
[2024-07-14] MEDS: ARIPiprazole 10 MG TAB PO SCH (20:08)
[2024-07-14 20:15] LABS: Glucose,Whole Blood 328 mg/dL (70-110)
[2024-07-14] MEDS ORDERED: hydrALAZINE HCL 50 MG TAB PO SCH (21:00)
[2024-07-14] MEDS: SYMBICORT 160-4.5 MCG INHALER INHALATION SCH (21:19)
--- NOTE | 2024-07-14 22:33 | P.CONS ---
History of Present Illness - Reason for Consult Consult date: 07/14/24 Febrile illness Requesting physician: Evin Sanchez - Chief Complaint Chest pain and shortness of breath x few days - History of Present Illness Patient is a 53-year-old female with a past medical history significant for Blood Disorder, Coronary Artery Disease (CAD), Cancer, Chest Pain / Angina, CVA/TIA, Diabetes Mellitus, Deep Vein Thrombosis (DVT), Fibromyalgia, GERD/Reflux, Hyperlipidemia, Hypertension, Myocardial Infarction ([place]), also have residual right-sided weakness from the CVA patient has been brought into the hospital for the patient complaining of chest pain and shortness of breath apparently the night before patient presented to the hospital patient was describing chest pain to be mostly sharp mild to moderate intensity without any radiation patient did have a cough mild to moderate but not bring up any sputum patient denies having any headache or URI symptoms patient denies having any nausea vomiting no abdominal pain or any diarrhea on presentation to the hospital patient was afebrile subsequently she did spike a fever of 100.7 last night and 99.8 F this morning patient did have a tachycardia at 1 point and was mildly hypoxic requiring supplemental oxygen patient is not hypotensive or need for pressors she did have a white count of 14.7 that is up to 25.1 today creatinine has been 1.5 plan patient was started on cefazolin concerning for right lower extremity cellulitis infectious disease was consulted today for further management of antibiotic therapy Review of Systems Positive point and negatives has been mentioned in the HPI, complete review of systems was performed and all other systems are negative Past Medical History Past Medical History: Blood Disorder, Coronary Artery Disease (CAD), Cancer, Chest Pain / Angina, CVA/TIA, Diabetes Mellitus, Deep Vein Thrombosis (DVT), Fibromyalgia, GERD/Reflux, Hyperlipidemia, Hypertension, Myocardial Infarction (ME), Musculoskeletal Disorder, Neurologic Disorder, Renal Disease, Sleep Apnea/CPAP/BIPAP, Vascular Disorder Additional Past Medical History / Comment(s): IDDM type II, uterine/cervical and ovarian cancer, restless leg, Factor V blood disorder, DVT R leg, CVA 4 with so me residual right-sided weakness - slight foot drag when tired/neuropathies, MS, [place] X 5, ABIGAIL with Cpap use, PAD/legs, R leg edema, past pancreatitis. HAD ME 10/27/23 Last Myocardial Infarction Date:: LAST ONE 10/27/23 History of Any Multi-Drug Resistant Organisms: None Reported Past Surgical History: Section, Cholecystectomy, Heart Catheterization With Stent, Hysterectomy, Tubal Ligation, Uterine Ablation Additional Past Surgical History / Comment(s): vein stripping right leg, radio frequency ablation of right back-02/22/2015, four stents on 04/03/16 and one on march 05, ovaries removed, colonscopy- polyp removal Past Anesthesia/Blood Transfusion Reactions: Motion Sickness Additional Past Anesthesia/Blood Transfusion Reaction / Comm: mild claustrophobia Date of Last Stent Placement:: 04/03/16 Past Psychological History: Anxiety, Depression Additional Psychological History / Comment(s): Pt resides with her spouse. She is mostly in her wheelchair. She has a walker and cane. She has a dexcom. Her spouse assists her with her medication organization. Spouse also drives pt. Smoking Status: Current every day smoker Past Alcohol Use History: None Reported Additional Past Alcohol Use History / Comment(s): Pt started smoking in 1988 and quit recently Past Drug Use History: None Reported - Past Family History Father Family Medical History: Congestive Heart Failure (CHF), Coronary Artery Disease (CAD), Diabetes Mellitus Mother Family Medical History: Cancer, COPD, Hypertension, Respiratory Disorder Additional Family Medical History / Comment(s): emphysema, colon CA Medications and Allergies Home Medications Medication Instructions Recorded Confirmed Type Aspirin [Adult Low Dose Aspirin EC] 81 mg PO HS 11/26/17 07/13/24 History DULoxetine HCL [Cymbalta] 60 mg PO DAILY 08/25/18 07/13/24 History Isosorbide Mononitrate ER [Imdur] 60 mg PO DAILY 09/08/18 07/13/24 History Empagliflozin [Jardiance] 10 mg PO DAILY 10/06/22 07/13/24 History Famotidine 20 mg PO BID PRN 10/06/22 07/13/24 History Nitroglycerin Sl Tabs [Nitrostat] 0.4 mg SL Q5M PRN 10/06/22 07/13/24 History Fenofibrate [Lofibra] 160 mg PO DAILY 01/25/23 07/13/24 History Pregabalin [Lyrica] 150 mg PO BID 02/05/23 07/13/24 History Budesonide/Formoterol Fumarate 2 puff INHALATION RT-BID PRN 07/17/23 07/13/24 History [Symbicort 160-4.5 Mcg Inhaler] INSULIN LISPRO (For Pump) [humaLOG 0.01 units SQ-PUMP CONTINUOUS 07/17/23 07/13/24 History (For Pump)] Atorvastatin [Lipitor] 40 mg PO HS 12/11/23 07/13/24 History Magnesium Oxide [Mag-Ox] 400 mg PO BID 03/10/24 07/13/24 History ALPRAZolam [Xanax] 1 mg PO TID PRN 03/28/24 07/13/24 History Cinacalcet [Sensipar] 30 mg PO MOTUWETHFR 03/28/24 07/13/24 History ARIPiprazole [Abilify] 10 mg PO HS 05/04/24 07/13/24 History Ondansetron Odt [Zofran ODT] 8 mg PO Q12HR 05/04/24 07/13/24 History Clopidogrel [Plavix] 75 mg PO DAILY 30 Days #30 tab 05/13/24 07/13/24 Rx Losartan [Cozaar] 25 mg PO DAILY 30 Days #30 tab 06/21/24 07/13/24 Rx Metoprolol Tartrate [Lopressor] 25 mg PO TID 30 Days #90 tab 06/21/24 07/13/24 Rx Sodium Bicarbonate Tab 650 mg PO BID 30 Days #60 tab 06/21/24 07/13/24 Rx hydrALAZINE HCL [Apresoline] 50 mg PO BID 30 Days #60 tab 06/21/24 07/13/24 Rx Allergies Allergy/AdvReac Type Severity Reaction Status Date / Time Fish Containing Products Allergy Anaphylaxis Verified 07/13/24 15:17 Iodinated Contrast Media Allergy Anaphylaxis Verified 07/13/24 15:17 [Iodinated Contrast Media - IV Dye] Sulfa (Sulfonamide Allergy Anaphylaxis Verified 07/13/24 15:17 Antibiotics) sulfamethoxazole Allergy Anaphylaxis Verified 07/13/24 15:17 [From Septra] tree nut [Nut] Allergy Anaphylaxis Verified 07/13/24 15:17 trimethoprim [From Septra] Allergy Anaphylaxis Verified 07/13/24 15:17 Physical Exam Vitals: Vital Signs Temp Pulse Pulse Resp BP BP Pulse Ox 07/14/24 08:00 99.8 F H 104 H 22 129/83 92 L 07/14/24 04:09 07/14/24 03:49 99.1 F 89 23 108/72 96 07/14/24 03:09 99.1 F 92 23 113/53 94 L 07/14/24 00:31 100.0 F H 97 26 H 131/81 95 07/13/24 23:52 99 23 112/86 94 L 07/13/24 23:12 07/13/24 23:11 100.7 F H 98 20 120/92 91 L 07/13/24 22:21 07/13/24 21:38 99 20 144/93 90 L 07/13/24 20:37 101 H 23 141/86 90 L 07/13/24 20:36 90 L 07/13/24 20:10 90 L 07/13/24 20:09 87 L 07/13/24 19:56 96 14 119/71 92 L 07/13/24 18:13 99.2 F 97 18 126/70 94 L 07/13/24 16:23 97 18 146/88 92 L 07/13/24 14:15 91 18 120/78 93 L 07/13/24 13:33 98.4 F 94 18 146/81 92 L FiO2 07/14/24 08:00 07/14/24 04:09 50 07/14/24 03:49 50 07/14/24 03:09 50 07/14/24 00:31 50 07/13/24 23:52 07/13/24 23:12 50 07/13/24 23:11 07/13/24 22:21 50 07/13/24 21:38 07/13/24 20:37 07/13/24 20:36 07/13/24 20:10 07/13/24 20:09 07/13/24 19:56 07/13/24 18:13 07/13/24 16:23 07/13/24 14:15 07/13/24 13:33 Intake and Output 07/13/24 07/14/24 07/14/24 22:59 06:59 14:59 Intake Total 82.5 112.904 Output Total 450 Balance -367.5 112.904 Intake: Intake, IV Titration 82.5 112.904 Amount Heparin Sod,Pork in 0.45% 82.5 112.904 NaCl 25,000 unit In 0.45 % NaCl 1 250ml.bag @ 10. 599 UNITS/KG/HR 10 mls/hr IV .Q24H [facility] Rx#: [id number] Output: Urine 450 Other: Voiding Method External Catheter Weight 106.5 kg GENERAL DESCRIPTION: Middle-aged female lying in bed, no distress. No tachypnea or accessory muscle of respiration use. HEENT: Shows Pallor , no scleral icterus. Oral mucous membrane is dry. No pharyngeal erythema or thrush NECK: Trachea central, no thyromegaly. LUNGS: Unlabored breathing. Decreased breath sound at the base HEART: S1, S2, regular rate and rhythm. No loud murmur ABDOMEN: Soft, no tenderness , guarding or rigidity, no organomegaly EXTREMITIES: No edema of feet. SKIN: No rash, no masses palpable. NEUROLOGICAL: The patient is awake, alert, oriented x3, mood and affect normal. Results CBC & Chem 7: 07/14/24 07:09 07/13/24 13:49 Labs: Abnormal Lab Results - Last 24 Hours (Table) 07/13/24 07/13/24 07/13/24 Range/Units 13:49 13:49 13:49 WBC 14.7 H (3.8-10.6) k/uL RBC 3.75 L (3.80-5.40) m/uL Hgb (11.4-16.0) gm/dL Neutrophils # 11.3 H (1.3-7.7) k/uL Monocytes # (0-1.0) k/uL APTT (22.0-30.0) sec Sodium 134 L (137-145) mmol/L Carbon Dioxide 21 L (22-30) mmol/L BUN 20 H (7-17) mg/dL Creatinine 1.59 H (0.52-1.04) mg/dL Glucose 279 H (74-99) mg/dL POC Glucose (mg/dL) (70-110) mg/dL Calcium 7.8 L (8.4-10.2) mg/dL Magnesium 1.5 L (1.6-2.3) mg/dL Troponin I 0.281 H* (0.000-0.034) ng/mL Total Protein 4.4 L (6.3-8.2) g/dL Albumin 2.2 L (3.5-5.0) g/dL 07/13/24 07/13/24 07/13/24 Range/Units 14:45 16:40 18:32 WBC (3.8-10.6) k/uL RBC (3.80-5.40) m/uL Hgb (11.4-16.0) gm/dL Neutrophils # (1.3-7.7) k/uL Monocytes # (0-1.0) k/uL APTT (22.0-30.0) sec Sodium (137-145) mmol/L Carbon Dioxide (22-30) mmol/L BUN (7-17) mg/dL Creatinine (0.52-1.04) mg/dL Glucose (74-99) mg/dL POC Glucose (mg/dL) 262 H 173 H (70-110) mg/dL Calcium (8.4-10.2) mg/dL Magnesium (1.6-2.3) mg/dL Troponin I 0.274 H* (0.000-0.034) ng/mL Total Protein (6.3-8.2) g/dL Albumin (3.5-5.0) g/dL 07/13/24 07/14/24 07/14/24 Range/Units 19:27 06:21 07:09 WBC 25.1 H (3.8-10.6) k/uL RBC 3.60 L (3.80-5.40) m/uL Hgb 11.1 L (11.4-16.0) gm/dL Neutrophils # 21.7 H (1.3-7.7) k/uL Monocytes # 1.2 H (0-1.0) k/uL APTT (22.0-30.0) sec Sodium (137-145) mmol/L Carbon Dioxide (22-30) mmol/L BUN (7-17) mg/dL Creatinine (0.52-1.04) mg/dL Glucose (74-99) mg/dL POC Glucose (mg/dL) 266 H (70-110) mg/dL Calcium (8.4-10.2) mg/dL Magnesium (1.6-2.3) mg/dL Troponin I 0.246 H* (0.000-0.034) ng/mL Total Protein (6.3-8.2) g/dL Albumin (3.5-5.0) g/dL 07/14/24 Range/Units 07:09 WBC (3.8-10.6) k/uL RBC (3.80-5.40) m/uL Hgb (11.4-16.0) gm/dL Neutrophils # (1.3-7.7) k/uL Monocytes # (0-1.0) k/uL APTT 31.0 H (22.0-30.0) sec Sodium (137-145) mmol/L Carbon Dioxide (22-30) mmol/L BUN (7-17) mg/dL Creatinine (0.52-1.04) mg/dL Glucose (74-99) mg/dL POC Glucose (mg/dL) (70-110) mg/dL Calcium (8.4-10.2) mg/dL Magnesium (1.6-2.3) mg/dL Troponin I (0.000-0.034) ng/mL Total Protein (6.3-8.2) g/dL Albumin (3.5-5.0) g/dL Assessment and Plan (1) SIRS (systemic inflammatory response syndrome) Current Visit: Yes Status: Acute Code(s): R65.10 - SIRS OF NON-INFECTIOUS ORIGIN W/O ACUTE ORGAN DYSFUNCTION SNOMED Code(s): 377135859 Plan: 1patient with cirrhosis in this patient who did have a fever elevated white count in this patient with a predominantly respiratory symptoms concerning for possible pneumonia though initial chest x-ray shows only cardiomegaly patient did have mild erythema to the right lower extremity abdominal soft on clinical examination 2-we will obtain CRP procalcitonin repeat a chest x-ray PA and lateral 3-we will switch antibiotic to Zosyn keeping in mind worsening white count with the cefazolin while waiting for the workup to be completed We will follow on clinical condition and cultures to further adjust medication if needed Thank you for this consultation we will follow the patient along with you Dictation was produced using [employer] software. please excuse any grammatical, word or spelling errors. Time with Patient: Greater than 30
[2024-07-15 06:06] LABS: Glucose,Whole Blood 274 mg/dL (70-110)
[2024-07-15] MEDS: PANTOPRAZOLE 40 MG TABLET PO SCH (06:20)
--- NOTE | 2024-07-15 07:25 | XR ---
EXAMINATION TYPE: XR chest 2V DATE OF EXAM: 07/15/2024 COMPARISON: 07/13/2024 INDICATION: Fever, pneumonia TECHNIQUE: Frontal and lateral views of the chest are obtained. FINDINGS: The heart size is large. The pulmonary vasculature is normal. Left lower lobe infiltrate is present. There is silhouetting of the left diaphragm. Mild right perihi lar infiltrate is present. Findings developing from comparison. Correlate for atelectasis and pneumon ia. IMPRESSION: 1. Left lower lobe infiltrate. Correlate for atelectasis or pneumonia. Some mild atelectasis may be a t the right perihilar region. 2. Cardiomegaly [facility], , 07/15/2024 7:22 AM
[2024-07-15] MEDS: ASPIRIN 81 MG PO SCH (07:27)
[2024-07-15] MEDS: predniSONE 20 MG TAB PO SCH (07:28)
[2024-07-15] MEDS ORDERED: LOSARTAN 25 MG TAB PO SCH (09:00)
[2024-07-15 09:22] LABS: ALT 13 U/L (4-34); AST 20 U/L (14-36); African American GFR (CKD) 26 (>60 ml/min/1.73 sqM); Albumin 2.4 g/dL (3.5-5.0); Alkaline Phosphatase 157 U/L (38-126); Anion Gap 9 mmol/L; Blood Urea Nitrogen 37 mg/dL (7-17); Carbon Dioxide 23 mmol/L (22-30); Chloride 100 mmol/L (98-107); Glucose 330 mg/dL (74-99); Non-African American GFR(CKD) 22 (>60 ml/min/1.73 sqM); Potassium 4.8 mmol/L (3.5-5.1); Sodium 132 mmol/L (137-145); Total Bilirubin 0.6 mg/dL (0.2-1.3); Total Protein 4.4 g/dL (6.3-8.2)
[2024-07-15 09:25] LABS: Basophils # (A) 0.1 k/uL (0-0.2); Basophils % (A) 0 %; Eosinophils # (A) 0.1 k/uL (0-0.7); Eosinophils % (A) 1 %; HCT 29.8 % (34.0-46.0); HGB 9.7 gm/dL (11.4-16.0); Lymphocytes # (A) 1.7 k/uL (1.0-4.8); Lymphocytes % (A) 12 %; MCH 31.5 pg (25.0-35.0); MCHC 32.7 g/dL (31.0-37.0); MCV 96.4 fL (80.0-100.0); Mean Platelet Volume 10.8; Monocytes # (A) 0.6 k/uL (0-1.0); Monocytes % (A) 4 %; Neutrophils # (A) 11.6 k/uL (1.3-7.7); Neutrophils % (A) 82 %; Platelet Count 279 k/uL (150-450); RBC 3.09 m/uL (3.80-5.40); RDW 14.3 % (11.5-15.5); WBC 14.3 k/uL (3.8-10.6)
--- NOTE | 2024-07-15 09:33 | P.PN ---
Subjective Progress Note Date: 07/15/24 Leticia huff a 53-year-old female patient well-known to my services who presented with concerns of chest pain that started last night and increased shortness of breath. Patient has an extensive medical history including previous stent placement x 5, CVA, diabetes mellitus and ongoing nicotine depend ence. Chest x-ray completed showing cardiomegaly. EKG completed showing right bundle branch block. Patient negative for influenza, RSV and COVID-19. Troponin elevated at 0.246. White blood cell 14.7, sodium 134, creatinine 1.59 and bun 20. Patient was started on heparin drip due to elevated troponin. Patient also noted to have elevated temp at 100.1. Patient is also lethargic will wake up and answer questions but quickly fall back to sleep right lower extremity warm and redness noted concerns for cellulitis. At this time cardiology services have been consulted due to concerns of infection will order blood culture and UA. Patient started on IV Kefzol for lower extremity cellulitis. Infectious disease services consulted. Patient also requiring 8 L high flow nasal cannula. Will consult pulmonary services. Current vital signs temp 99.1, heart rate 89, respiratory rate 23, blood pressure 108/72 and a pulse ox of 96% on high flow 8 L patient denies any chest pain. Patient does report some shortness of breath. Patient denies any nausea vomiting or diarrhea. Patient denies any urinary burning or frequency On 07/15/2024 patient is alert and oriented x 3. Mentation significantly improved from yesterday. Two-view chest x-ray was completed showing left lower lobe infiltrate. Antibiotics adjusted to Zosyn per ID. Heparin drip DC'd per cardiology acute coronary event has been ruled out. Patient also started on p.o. prednisone per pulmonary. White blood cell improving to 14.3. Creatinine increasing to 2.44 bun 37 will consult nephrology services. Patient was started on IV Lasix per cardiology. At this time patient denies chest pain or shortness of breath. Patient denies nausea vomiting or diarrhea. Patient denies any urinary burning or frequency. Current vital signs temp 98.5, heart rate 71, respiratory rate 16, blood pressure 106/65 with a pulse ox of 93% on 8 L Objective - Vital Signs Vital signs: Vital Signs Temp 98.5 F 07/15/24 07:24 Pulse 68 07/15/24 09:01 Resp 16 07/15/24 07:24 BP 106/65 07/15/24 07:24 Pulse Ox 93 L 07/15/24 08:51 FiO2 50 07/14/24 04:09 Intake & Output 07/14/24 07/15/24 07/15/24 18:59 06:59 18:59 Intake Total 600.904 0 180 Output Total 1200 Balance -599.096 0 180 Weight 106.5 kg 107 kg Intake: Intake, IV Titration 112.904 Amount Heparin Sod,Pork in 0.45% 112.904 NaCl 25,000 unit In 0.45 % NaCl 1 250ml.bag @ 10. 599 UNITS/KG/HR 10 mls/hr IV .Q24H [facility] Rx#: [id number] Oral 488 0 180 Output: Urine 1200 Other: Voiding Method External Catheter External Catheter External Catheter # Voids 1 1 # Bowel Movements 1 - Exam Head normocephalic Neck supple Lungs diminished bilaterally with expiratory wheezing Heart regular rate and rhythm S1-S2, no rub or gallop Abdomen is soft nontender nondistended positive bowel sounds no hepatosplenomegaly Extremities right lower extremity erythema Neuro alert and orientated to 3 - Labs CBC & Chem 7: 07/15/24 08:46 07/15/24 08:46 Labs: Abnormal Lab Results - Last 24 Hours (Table) 07/14/24 07/14/24 07/14/24 Range/Units 10:53 11:13 11:41 WBC (3.8-10.6) k/uL RBC (3.80-5.40) m/uL Hgb (11.4-16.0) gm/dL Hct (34.0-46.0) % Neutrophils # (1.3-7.7) k/uL Sodium (137-145) mmol/L BUN (7-17) mg/dL Creatinine (0.52-1.04) mg/dL Glucose (74-99) mg/dL POC Glucose (mg/dL) 278 H (70-110) mg/dL Calcium (8.4-10.2) mg/dL Alkaline Phosphatase (38-126) U/L Total Protein (6.3-8.2) g/dL Albumin (3.5-5.0) g/dL Procalcitonin 0.78 H (0.02-0.50) ng/mL Urine Protein 3+ H (Negative) Urine Glucose (UA) 4+ H (Negative) Urine Bacteria Rare H (None) /hpf 07/14/24 07/14/24 07/15/24 Range/Units 16:26 20:13 06:05 WBC (3.8-10.6) k/uL RBC (3.80-5.40) m/uL Hgb (11.4-16.0) gm/dL Hct (34.0-46.0) % Neutrophils # (1.3-7.7) k/uL Sodium (137-145) mmol/L BUN (7-17) mg/dL Creatinine (0.52-1.04) mg/dL Glucose (74-99) mg/dL POC Glucose (mg/dL) 283 H 328 H 274 H (70-110) mg/dL Calcium (8.4-10.2) mg/dL Alkaline Phosphatase (38-126) U/L Total Protein (6.3-8.2) g/dL Albumin (3.5-5.0) g/dL Procalcitonin (0.02-0.50) ng/mL Urine Protein (Negative) Urine Glucose (UA) (Negative) Urine Bacteria (None) /hpf 07/15/24 07/15/24 Range/Units 08:46 08:46 WBC 14.3 H (3.8-10.6) k/uL RBC 3.09 L (3.80-5.40) m/uL Hgb 9.7 L (11.4-16.0) gm/dL Hct 29.8 L (34.0-46.0) % Neutrophils # 11.6 H (1.3-7.7) k/uL Sodium 132 L (137-145) mmol/L BUN 37 H (7-17) mg/dL Creatinine 2.44 H (0.52-1.04) mg/dL Glucose 330 H (74-99) mg/dL POC Glucose (mg/dL) (70-110) mg/dL Calcium 8.0 L (8.4-10.2) mg/dL Alkaline Phosphatase 157 H (38-126) U/L Total Protein 4.4 L (6.3-8.2) g/dL Albumin 2.4 L (3.5-5.0) g/dL Procalcitonin (0.02-0.50) ng/mL Urine Protein (Negative) Urine Glucose (UA) (Negative) Urine Bacteria (None) /hpf Assessment and Plan Assessment: 1. Chest pain with elevated troponin. Cardiology services following acute coronary event has been ruled out 2. Febrile and leukocytosis secondary to possible pneumonia. RSV COVID and influenza negative chest x-ray negative. Blood culture and urine cultures ordered 3. Right lower extremity cellulitis 4. Respiratory failure requiring 8 L nasal cannula. Pulmonary services consulted 5. History of coronary artery disease with previous stent placement x 5 6. History of CVA 7. History of insulin-dependent diabetes mellitus maintained on home insulin pump this was DC'd during hospitalization sliding scale coverage added 8. History of hyperlipidemia 9. History of chronic kidney disease 10. Ongoing nicotine dependence 11. Acute kidney injury. Nephrology services consulted DVT prophylaxis heparin drip. GI prophylaxis Protonix Cardiology, infectious disease and pulmonary services consulted Patient started on IV antibiotic Blood and urine cultures ordered Repeat labs ordered
--- NOTE | 2024-07-15 11:23 | P.PN ---
Subjective Progress Note Date: 07/15/24 Principal diagnosis: Shortness of breath. This is a 53-year-old female patient with a prior history of multiple strokes with residual right sided weakness, diabetes mellitus, coronary disease with multiple stent placements, uterine/cervical and ovarian cancer, sleep apnea utilizing CPAP chronic tobacco dependence, anxiety/depression. She presented here to the emergency room yesterday with complaints of chest pain and shortness of breath. EKG reveals sinus rhythm with a left bundle branch block. X-ray reveals evidence of cardiomegaly. White count 25.1. Hemoglobin 11.1. Platelets 342. Glucose 278. Troponins 0.281, 0.274, 0.246. She was initially on a heparin drip per cardiology. An echocardiogram from May 2024 revealed severe left ventricular hypertrophy, preserved left ventricular systolic function with an ejection fraction of 55 to 60%. No significant valvular abnormalities. She has been initiated on IV diuretics. Currently in a negative balance. Progress note dated July 15, 2024. 53-year-old female seen today in room 371. She continues on nasal O2 at 8 L. She apparently did use BiPAP, with settings of 10/5, and 50%. She is not receiving any IV fluids. Her procalcitonin level was 0.78. She continues on Zosyn. Clinically, she states that she is feeling better. White count was 14.3, hemoglobin 9.7, hematocrit 29.8, and platelet count 279,000. Sodium 132, potassium 4.8, chlorides 100, CO2 23, BUN 37, creatinine 2.44. Glucose is 330. Calcium is 8. Albumin is 2.4. Chest x-ray reveals a left lower lobe infiltrate, and some atelectasis, in the right midlung area. Objective - Vital Signs Vital signs: Vital Signs Temp 98.5 F 07/15/24 07:24 Pulse 68 07/15/24 09:01 Resp 16 07/15/24 07:24 BP 106/65 07/15/24 07:24 Pulse Ox 93 L 07/15/24 08:51 FiO2 50 07/14/24 04:09 Intake & Output 07/14/24 07/15/24 07/15/24 18:59 06:59 18:59 Intake Total 600.904 0 180 Output Total 1200 Balance -599.096 0 180 Weight 106.5 kg 107 kg Intake: Intake, IV Titration 112.904 Amount Heparin Sod,Pork in 0.45% 112.904 NaCl 25,000 unit In 0.45 % NaCl 1 250ml.bag @ 10. 599 UNITS/KG/HR 10 mls/hr IV .Q24H [facility] Rx#: [id number] Oral 488 0 180 Output: Urine 1200 Other: Voiding Method External Catheter External Catheter External Catheter # Voids 1 1 # Bowel Movements 1 - Exam No acute distress, oriented 3. No respiratory distress, despite being on 8 L nasal cannula. HEENT examination is grossly unremarkable. Mucous membranes are moist. No oral lesions. Neck supple. Full range of motion. No adenopathy thyromegaly or neck vein distention. Cardiovascular examination reveals regular rhythm rate. S1-S2 normal. No S3 or S4. No discernible murmur noted. Lungs reveal slight clear breath sounds. Few scattered rhonchi. No wheezes or crackles. Breath sounds equal. Saturations are 93%. Abdomen soft bowel sounds are heard. No masses or tenderness. Extremities are intact. No cyanosis clubbing or edema. Skin is without rash or lesion. Neurologic examination is brief but nonfocal. - Labs CBC & Chem 7: 07/15/24 08:46 07/15/24 08:46 Labs: Abnormal Lab Results - Last 24 Hours (Table) 07/14/24 07/14/24 07/14/24 Range/Units 10:53 11:13 11:41 WBC (3.8-10.6) k/uL RBC (3.80-5.40) m/uL Hgb (11.4-16.0) gm/dL Hct (34.0-46.0) % Neutrophils # (1.3-7.7) k/uL Sodium (137-145) mmol/L BUN (7-17) mg/dL Creatinine (0.52-1.04) mg/dL Glucose (74-99) mg/dL POC Glucose (mg/dL) 278 H (70-110) mg/dL Hemoglobin A1c (<=6.0) % Calcium (8.4-10.2) mg/dL Alkaline Phosphatase (38-126) U/L Total Protein (6.3-8.2) g/dL Albumin (3.5-5.0) g/dL Procalcitonin 0.78 H (0.02-0.50) ng/mL Urine Protein 3+ H (Negative) Urine Glucose (UA) 4+ H (Negative) Urine Bacteria Rare H (None) /hpf 07/14/24 07/14/24 07/15/24 Range/Units 16:26 20:13 05:51 WBC (3.8-10.6) k/uL RBC (3.80-5.40) m/uL Hgb (11.4-16.0) gm/dL Hct (34.0-46.0) % Neutrophils # (1.3-7.7) k/uL Sodium (137-145) mmol/L BUN (7-17) mg/dL Creatinine (0.52-1.04) mg/dL Glucose (74-99) mg/dL POC Glucose (mg/dL) 283 H 328 H (70-110) mg/dL Hemoglobin A1c 11.2 H (<=6.0) % Calcium (8.4-10.2) mg/dL Alkaline Phosphatase (38-126) U/L Total Protein (6.3-8.2) g/dL Albumin (3.5-5.0) g/dL Procalcitonin (0.02-0.50) ng/mL Urine Protein (Negative) Urine Glucose (UA) (Negative) Urine Bacteria (None) /hpf 07/15/24 07/15/24 07/15/24 Range/Units 06:05 08:46 08:46 WBC 14.3 H (3.8-10.6) k/uL RBC 3.09 L (3.80-5.40) m/uL Hgb 9.7 L (11.4-16.0) gm/dL Hct 29.8 L (34.0-46.0) % Neutrophils # 11.6 H (1.3-7.7) k/uL Sodium 132 L (137-145) mmol/L BUN 37 H (7-17) mg/dL Creatinine 2.44 H (0.52-1.04) mg/dL Glucose 330 H (74-99) mg/dL POC Glucose (mg/dL) 274 H (70-110) mg/dL Hemoglobin A1c (<=6.0) % Calcium 8.0 L (8.4-10.2) mg/dL Alkaline Phosphatase 157 H (38-126) U/L Total Protein 4.4 L (6.3-8.2) g/dL Albumin 2.4 L (3.5-5.0) g/dL Procalcitonin (0.02-0.50) ng/mL Urine Protein (Negative) Urine Glucose (UA) (Negative) Urine Bacteria (None) /hpf Assessment and Plan Assessment: Chest pain in a patient with a known history of coronary artery disease. Acute hypoxemic respiratory failure secondary to possible COPD exacerbation versus early pneumonia, LLL. Right lower extremity cellulitis. Febrile illness secondary to above. Leukocytosis secondary to above. Chronic and ongoing tobacco dependence. Coronary artery disease with multiple stent placements. Chronic kidney disease. History of double TIA/CVAs with residual right sided weakness. Diabetes mellitus. History of anxiety/depression. Fibromyalgia. Hypertension. Hyperlipidemia. Obstructive sleep apnea utilizing CPAP. History of uterine/ovarian cancer. Factor V blood disorder. Plan: Plan dated July 15, 2024. The patient is seen today in room 371. Her chest x-ray reveals a left lower lobe infiltrate. The patient continues on Zosyn. Her procalcitonin level was elevated 0.78. The patient is currently on nasal cannula high flow, 8 L. We will continue to follow make recommendations along the way. Labs, x-rays, and all medications are reviewed. Prognosis is certainly guarded. Time with Patient: Less than 30
[2024-07-15 11:35] LABS: Glucose,Whole Blood 354 mg/dL (70-110)
--- NOTE | 2024-07-15 12:19 | CDI ---
Documentation Clarification Form Date: 07/15/2024 11:48:44 AM From: Natasha Walker RN, CCDS Phone: [phone] Admit Date: 07/13/2024 03:13:00 PM Patient Name: Leticia Langley Visit Number: [id number] Discharge Date: ATTENTION: The Clinical Documentation Specialists (CDI) and [facility] Coding Staff appreciate your assistance in clarifying documentation. Please respond to the clarification below the line at the bottom and electronically sign. The CDI & [facility] Coding staff will review the response and follow-up if needed. Please note: Queries are made part of the Legal Health Record. If you have any questions, please contact the author of this message via ITS. Doctor/Provider: Evin Sanchez The patient has sepsis documented in the Cardiology consult on 07/14/27. Based on this information and the findings below, is there an additional diagnosis that is clinically appropriate for this patient? History/Risk Factors: Blood Disorder, Coronary Artery Disease, Cancer, Angina, CVA/TIA, Diabetes Mellitus, Deep Vein Thrombosis, Hyperlipidemia, Hypertension, Myocardial Infarction, 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 Clinical Indicators: 53-year-old female who presents to the ED complaining that she started having chest pain with shortness of breath. She had a cough no sputum. 07/13 VS: 120/92 98 20 100.7 91% 4/L Venti Mask 07/13 Labs WBC 14.7, Neutrophils 11.3, BUN20 CR 1.59, Ca+ 7.8, Mg+1.5 07/14 Procalcitonin 0.78 07/13: CXR: Cardiomegaly 07/14 Pulmonary consult: Acute hypoxemic respiratory failure secondary to possible COPD exacerbation versus early pneumonia Right lower extremity cellulitis 07/14 ID (1) SIRS (systemic inflammatory response syndrome) in this patient who did have a fever elevated white count in this patient with a predominantly respiratory symptoms concerning for possible pneumonia. Patient did have mild erythema to the right lower erythema. Treatment: Zosyn 3.375 GM IVPB Q 8 HRS Is there an additional diagnosis that is clinically appropriate for this patient? [ xxx] Sepsis, present on admission [ ] Severe Sepsis with organ failure [ ] No additional diagnosis/not clinically significant [ ] Other, please specify [ ] Unable to determine SIRS Criteria: 2 or more of the following may indicate SIRS Temperature < 96.8F (36C) or > 101.0F (38.3C) Heart Rate > 90 bpm Respiratory Rate > 20 breaths/min or PaCO2 < 32 mmHg White Blood Cell Count > 12,000 or < 4,000 cells/mm3 or > 10% bands (Template Last Reviewed: October 2022) MTDD
--- NOTE | 2024-07-15 13:12 | P.PN ---
Subjective HISTORY OF PRESENT ILLNESS: This is a 53-year-old female with a past medical history significant for hypertension, hyperlipidemia, diabetes, CAD with previous multivessel stenting, chronic kidney disease, and bipolar disorder. Patient follows in the office with Dr. Jasso. We have been asked to see the patient in consultation for non-STEMI. Patient examined at the bedside. Patient spouse is at the bedside. Patient states she does not remember why she came to the hospital. Patient's spouse states that she has been feeling weak, dizzy, and tired for the past week. He states that she was unable to come down her stairs and he had to call EMS. The patient denies having any chest pain or pressure. At the time of examination she denies any shortness of breath. She is somewhat lethargic upon examination. She is currently on 8 L high flow nasal cannula. Blood pressures are currently soft with a recent reading of 90/52. She has a low-grade fever of 99.8. DIAGNOSTICS: - EKG reveals sinus mechanism with LVH, IVCD - Chest xray cardiomegaly - Laboratory data: WBC 25.1. Hemoglobin 11.1. Platelet count 342. Sodium 134. Potassium 4.2. BUN 20. Creatinine 1.59. Magnesium 1.5. Troponin 0.281. 0.274. 0.246. - Current home cardiac medications include aspirin 81 mg daily, Lipitor 40 mg at night, Plavix 75 mg daily, Jardiance 10 mg daily, Imdur 60 mg daily, losartan 25 mg daily, metoprolol tartrate 25 mg 3 times a day, hydralazine 50 mg twice a day - Most recent echocardiogram obtained in May 2024 revealed ejection fraction 55 to 60%, LVH, mild mitral and tricuspid regurgitation - Cardiac catheterization history: November 2023 revealing 60% mid RCA stenosis involving the previously stented segment. Patent stents within the RCA, LAD, and diagonal with moderate nonobstructive disease involving the LAD and the ostial portion of the diagonal branch. Patient underwent IFR of mid RCA by Dr. Mckeon which came to be an abnormal at 0.84. Given long area of prior stenting with increased long-term risk of restenosis, consider medical therapy. If patient having consistent angina would recommend staged PCI of RCA 07/15/2024 Patient examined this morning at the bedside. Patient currently denies chest pain or pressure. She denies shortness of breath. Patient's erythema of right lower extremity is improving. She remains on 6 L high flow nasal cannula. Blood pressure 129/72. Telemetry reveals sinus mechanism. PHYSICAL EXAM: VITAL SIGNS: Reviewed. GENERAL: Well-developed in no acute distress. HEENT: Head is normocephalic. Pupils are equal, round. Sclerae anicteric. Mucous membranes of the mouth are moist. Neck supple. No JVD or thyromegaly LUNGS: Respirations even and unlabored. Lungs diminished bilaterally HEART: Regular rate and rhythm. S1 and S2 heard. ABDOMEN: Soft. Nondistended. Nontender. EXTREMITIES: Normal range of motion. No clubbing or cyanosis. Peripheral pulses intact. Right lower extremity with erythema noted, improved from yesterday. NEUROLOGIC: Awake and alert. Lethargic ASSESSMENT: Generalized weakness Recent admissions for syncope and TIA Right lower extremity cellulitis Left lower lobe pneumonia Sepsis with fever and leukocytosis Acute hypoxic respiratory failure requiring supplemental oxygen Coronary artery disease with previous multivessel stenting Chronic kidney disease History of TIA Left ventricular hypertrophy Chronically elevated troponins, flat, secondary to poor renal clearance/LVH, no evidence of myocardial injury or ischemia, no clinical significance Hypertension Hyperlipidemia PLAN: Continue current cardiac medications Patient is currently stable from a cardiac perspective Dr. Briones recommends eventual outpatient cardiac MRI Continue antibiotics per infectious disease Further recommendations pending patient course Nurse practitioner note has been reviewed by physician. Signing provider agrees with the documented findings, assessment, and plan of care documented by [employer] as a scribe. Objective - Vital Signs Vital signs: Vital Signs Temp 98.5 F 07/15/24 07:24 Pulse 72 07/15/24 11:32 Resp 18 07/15/24 11:32 BP 129/72 07/15/24 11:32 Pulse Ox 91 L 07/15/24 11:51 FiO2 50 07/14/24 04:09 Intake & Output 07/14/24 07/15/24 07/15/24 18:59 06:59 18:59 Intake Total 600.904 0 480 Output Total 1200 Balance -599.096 0 480 Weight 106.5 kg 107 kg Intake: IV 100 Piperacillin-Tazobactam 3 100 .375 gm In Sodium Chloride 0.9% 100 ml @ 25 mls/hr IVPB Q8HR [facility] Rx# :[id number] Intake, IV Titration 112.904 Amount Heparin Sod,Pork in 0.45% 112.904 NaCl 25,000 unit In 0.45 % NaCl 1 250ml.bag @ 10. 599 UNITS/KG/HR 10 mls/hr IV .Q24H [facility] Rx#: [id number] Oral 488 0 380 Output: Urine 1200 Other: Voiding Method External Catheter External Catheter External Catheter # Voids 1 1 # Bowel Movements 1 - Labs CBC & Chem 7: 07/15/24 08:46 07/15/24 08:46 Labs: Abnormal Lab Results - Last 24 Hours (Table) 07/14/24 07/14/24 07/14/24 Range/Units 10:53 16:26 20:13 WBC (3.8-10.6) k/uL RBC (3.80-5.40) m/uL Hgb (11.4-16.0) gm/dL Hct (34.0-46.0) % Neutrophils # (1.3-7.7) k/uL Sodium (137-145) mmol/L BUN (7-17) mg/dL Creatinine (0.52-1.04) mg/dL Glucose (74-99) mg/dL POC Glucose (mg/dL) 283 H 328 H (70-110) mg/dL Hemoglobin A1c (<=6.0) % Calcium (8.4-10.2) mg/dL Alkaline Phosphatase (38-126) U/L Total Protein (6.3-8.2) g/dL Albumin (3.5-5.0) g/dL Procalcitonin 0.78 H (0.02-0.50) ng/mL 07/15/24 07/15/24 07/15/24 Range/Units 05:51 06:05 08:46 WBC 14.3 H (3.8-10.6) k/uL RBC 3.09 L (3.80-5.40) m/uL Hgb 9.7 L (11.4-16.0) gm/dL Hct 29.8 L (34.0-46.0) % Neutrophils # 11.6 H (1.3-7.7) k/uL Sodium (137-145) mmol/L BUN (7-17) mg/dL Creatinine (0.52-1.04) mg/dL Glucose (74-99) mg/dL POC Glucose (mg/dL) 274 H (70-110) mg/dL Hemoglobin A1c 11.2 H (<=6.0) % Calcium (8.4-10.2) mg/dL Alkaline Phosphatase (38-126) U/L Total Protein (6.3-8.2) g/dL Albumin (3.5-5.0) g/dL Procalcitonin (0.02-0.50) ng/mL 07/15/24 07/15/24 Range/Units 08:46 11:30 WBC (3.8-10.6) k/uL RBC (3.80-5.40) m/uL Hgb (11.4-16.0) gm/dL Hct (34.0-46.0) % Neutrophils # (1.3-7.7) k/uL Sodium 132 L (137-145) mmol/L BUN 37 H (7-17) mg/dL Creatinine 2.44 H (0.52-1.04) mg/dL Glucose 330 H (74-99) mg/dL POC Glucose (mg/dL) 354 H (70-110) mg/dL Hemoglobin A1c (<=6.0) % Calcium 8.0 L (8.4-10.2) mg/dL Alkaline Phosphatase 157 H (38-126) U/L Total Protein 4.4 L (6.3-8.2) g/dL Albumin 2.4 L (3.5-5.0) g/dL Procalcitonin (0.02-0.50) ng/mL
[2024-07-15 16:54] LABS: Glucose,Whole Blood 408 mg/dL (70-110)
[2024-07-15 20:29] LABS: Glucose,Whole Blood 437 mg/dL (70-110)
[2024-07-16 06:32] LABS: Glucose,Whole Blood 409 mg/dL (70-110)
[2024-07-16 07:17] LABS: ALT 12 U/L (4-34); AST 16 U/L (14-36); African American GFR (CKD) 27 (>60 ml/min/1.73 sqM); Albumin 2.5 g/dL (3.5-5.0); Alkaline Phosphatase 144 U/L (38-126); Anion Gap 8 mmol/L; Blood Urea Nitrogen 43 mg/dL (7-17); Calcium 8.3 mg/dL (8.4-10.2); Carbon Dioxide 24 mmol/L (22-30); Chloride 99 mmol/L (98-107); Glucose 352 mg/dL (74-99); Non-African American GFR(CKD) 23 (>60 ml/min/1.73 sqM); Potassium 4.9 mmol/L (3.5-5.1); Sodium 131 mmol/L (137-145); Total Bilirubin 0.4 mg/dL (0.2-1.3); Total Protein 4.8 g/dL (6.3-8.2)
[2024-07-16 07:26] LABS: Basophils # (A) 0.1 k/uL (0-0.2); Basophils % (A) 0 %; Eosinophils # (A) 0.1 k/uL (0-0.7); Eosinophils % (A) 0 %; HCT 32.2 % (34.0-46.0); HGB 10.5 gm/dL (11.4-16.0); Hypochromasia Slight; Lymphocytes # (A) 1.5 k/uL (1.0-4.8); Lymphocytes % (A) 10 %; MCH 31.5 pg (25.0-35.0); MCHC 32.7 g/dL (31.0-37.0); MCV 96.4 fL (80.0-100.0); Monocytes # (A) 0.7 k/uL (0-1.0); Monocytes % (A) 5 %; Neutrophils # (A) 13.5 k/uL (1.3-7.7); Neutrophils % (A) 84 %; Platelet Count 292 k/uL (150-450); RBC 3.35 m/uL (3.80-5.40); RDW 14.2 % (11.5-15.5)
--- NOTE | 2024-07-16 11:24 | P.PN ---
Subjective Progress Note Date: 07/16/24 Principal diagnosis: Shortness of breath. This is a 53-year-old female patient with a prior history of multiple strokes with residual right sided weakness, diabetes mellitus, coronary disease with multiple stent placements, uterine/cervical and ovarian cancer, sleep apnea utilizing CPAP chronic tobacco dependence, anxiety/depression. She presented here to the emergency room yesterday with complaints of chest pain and shortness of breath. EKG reveals sinus rhythm with a left bundle branch block. X-ray reveals evidence of cardiomegaly. White count 25.1. Hemoglobin 11.1. Platelets 342. Glucose 278. Troponins 0.281, 0.274, 0.246. She was initially on a heparin drip per cardiology. An echocardiogram from May 2024 revealed severe left ventricular hypertrophy, preserved left ventricular systolic function with an ejection fraction of 55 to 60%. No significant valvular abnormalities. She has been initiated on IV diuretics. Currently in a negative balance. Progress note dated July 15, 2024. 53-year-old female seen today in room 371. She continues on nasal O2 at 8 L. She apparently did use BiPAP, with settings of 10/5, and 50%. She is not receiving any IV fluids. Her procalcitonin level was 0.78. She continues on Zosyn. Clinically, she states that she is feeling better. White count was 14.3, hemoglobin 9.7, hematocrit 29.8, and platelet count 279,000. Sodium 132, potassium 4.8, chlorides 100, CO2 23, BUN 37, creatinine 2.44. Glucose is 330. Calcium is 8. Albumin is 2.4. Chest x-ray reveals a left lower lobe infiltrate, and some atelectasis, in the right midlung area. Progress note dated July 16, 2024. The patient is seen again in room 371. She is down from 8 L to 5 L nasal cannula high flow. She is not receiving any IV fluids. She continues on Zosyn for suspected pneumonia. White count of 16, hemoglobin 10.5, hematocrit 32.2, and platelet count is normal. Sodium 131, potassium 4.9, chloride 99, CO2 24, BUN 43, and creatinine 2.36. Glucose is 409. Albumin is 2.5. Calcium is 8.3. Culture data is thus far negative. Procalcitonin was elevated at 0.78. Objective - Vital Signs Vital signs: Vital Signs Temp 97.9 F 07/16/24 11:19 Pulse 65 07/16/24 11:19 Resp 16 07/16/24 11:19 BP 163/72 07/16/24 11:19 Pulse Ox 94 L 07/16/24 11:19 FiO2 50 07/14/24 04:09 Intake & Output 07/15/24 07/16/24 07/16/24 18:59 06:59 18:59 Intake Total 373 320 6001 Output Total 1000 0 Balance -464 695 4422 Weight 109 kg Intake: IV 100 10 Invasive Line 3 10 Piperacillin-Tazobactam 3 100 .375 gm In Sodium Chloride 0.9% 100 ml @ 25 mls/hr IVPB Q8HR [facility] Rx# :[id number] Oral [id number] Output: Urine 1000 0 Other: Voiding Method External Catheter External Catheter External Catheter - Exam No acute distress, oriented 3. No respiratory distress, despite being on 5 L nasal cannula. HEENT examination is grossly unremarkable. Mucous membranes are moist. No oral lesions. Neck supple. Full range of motion. No adenopathy thyromegaly or neck vein distention. Cardiovascular examination reveals regular rhythm rate. S1-S2 normal. No S3 or S4. No discernible murmur noted. Lungs reveal slight clear breath sounds. Few scattered rhonchi. No wheezes or crackles. Breath sounds equal. Saturations are 94 %. Abdomen soft bowel sounds are heard. No masses or tenderness. Extremities are intact. No cyanosis clubbing or edema. Skin is without rash or lesion. Neurologic examination is brief but nonfocal. - Labs CBC & Chem 7: 07/16/24 06:20 07/16/24 06:20 Labs: Abnormal Lab Results - Last 24 Hours (Table) 07/15/24 07/15/24 07/15/24 Range/Units 11:30 16:53 20:25 WBC (3.8-10.6) k/uL RBC (3.80-5.40) m/uL Hgb (11.4-16.0) gm/dL Hct (34.0-46.0) % Neutrophils # (1.3-7.7) k/uL Sodium (137-145) mmol/L BUN (7-17) mg/dL Creatinine (0.52-1.04) mg/dL Glucose (74-99) mg/dL POC Glucose (mg/dL) 354 H 408 H 437 H (70-110) mg/dL Calcium (8.4-10.2) mg/dL Alkaline Phosphatase (38-126) U/L Total Protein (6.3-8.2) g/dL Albumin (3.5-5.0) g/dL 07/16/24 07/16/24 07/16/24 Range/Units 06:20 06:20 06:30 WBC 16.0 H (3.8-10.6) k/uL RBC 3.35 L (3.80-5.40) m/uL Hgb 10.5 L (11.4-16.0) gm/dL Hct 32.2 L (34.0-46.0) % Neutrophils # 13.5 H (1.3-7.7) k/uL Sodium 131 L (137-145) mmol/L BUN 43 H (7-17) mg/dL Creatinine 2.36 H (0.52-1.04) mg/dL Glucose 352 H (74-99) mg/dL POC Glucose (mg/dL) 409 H (70-110) mg/dL Calcium 8.3 L (8.4-10.2) mg/dL Alkaline Phosphatase 144 H (38-126) U/L Total Protein 4.8 L (6.3-8.2) g/dL Albumin 2.5 L (3.5-5.0) g/dL Microbiology - Last 24 Hours (Table) 07/14/24 11:13 Urine Culture - Final Urine,Voided 07/14/24 10:53 Blood Culture - Preliminary Blood Assessment and Plan Assessment: Chest pain in a patient with a known history of coronary artery disease. Acute hypoxemic respiratory failure secondary to possible COPD exacerbation versus early pneumonia, LLL. Right lower extremity cellulitis. Febrile illness secondary to above. Leukocytosis secondary to above. Chronic and ongoing tobacco dependence. Coronary artery disease with multiple stent placements. Chronic kidney disease. History of double TIA/CVAs with residual right sided weakness. Diabetes mellitus. History of anxiety/depression. Fibromyalgia. Hypertension. Hyperlipidemia. Obstructive sleep apnea utilizing CPAP. History of uterine/ovarian cancer. Factor V blood disorder. Plan: Plan dated July 15, 2024. The patient is seen today in room 371. Her chest x-ray reveals a left lower lobe infiltrate. The patient continues on Zosyn. Her procalcitonin level was elevated 0.78. The patient is currently on nasal cannula high flow, 8 L. We will continue to follow make recommendations along the way. Labs, x-rays, and all medications are reviewed. Prognosis is certainly guarded. Plan dated July 16, 2024. The patient has been weaned down from 8 L high flow oxygen to 5 L. Saturations are in the low to mid 90s. The patient continues on Zosyn. The procalcitonin level was elevated. Labs, x-rays, and medications are reviewed. Prognosis is guarded. We will continue to follow the patient, and make recommendations along the way. Time with Patient: Less than 30
[2024-07-16 11:46] LABS: Glucose,Whole Blood 355 mg/dL (70-110)
--- NOTE | 2024-07-16 11:52 | P.NPCON ---
History of Present Illness - Reason for Consult acute renal failure - History of Present Illness patient is a 53-year-old female with history of chronic kidney disease NKF stage IV with previous creatinine at 1.6-2.0 mg/dL secondary to biopsy-proven diabetic kidney disease.patient is admitted to the hospital with complaints of shortness of breath. She was noted to be febrile and chest x-ray on 07/15/2024 showed left lower lobe infiltrate. Patient is also being treated for right lower extremity cellulitis. One reading of low blood pressure noted on 07/14/2024 with blood pressure of 90/52 serum creatinine was 1.59 on 07/13 and increased to 2.4 yesterday and it is 2.3 today. Patient has an external catheter and 1000 mL of urine documented for 24 hours. overall feeling better. Review of Systems as per HPI Past Medical History Past Medical History: Blood Disorder, Coronary Artery Disease (CAD), Cancer, Chest Pain / Angina, CVA/TIA, Diabetes Mellitus, Deep Vein Thrombosis (DVT), Fibromyalgia, GERD/Reflux, Hyperlipidemia, Hypertension, Myocardial Infarction (DE), Musculoskeletal Disorder, Neurologic Disorder, Renal Disease, Sleep Apnea/CPAP/BIPAP, Vascular Disorder Additional Past Medical History / Comment(s): IDDM type II, uterine/cervical and ovarian cancer, restless leg, Factor V blood disorder, DVT R leg, 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 - slight foot drag when tired/neuropathies, MS, DE X 5, ABIGAIL with Cpap use, PAD/legs, R leg edema, past pancreatitis. HAD DE 10/27/23 Last Myocardial Infarction Date:: LAST ONE 10/27/23 History of Any Multi-Drug Resistant Organisms: None Reported Past Surgical History: Section, Cholecystectomy, Heart Catheterization With Stent, Hysterectomy, Tubal Ligation, Uterine Ablation Additional Past Surgical History / Comment(s): vein stripping right leg, radio frequency ablation of right back-02/22/2015, four stents on 04/03/16 and one on march 05, ovaries removed, colonscopy- polyp removal Past Anesthesia/Blood Transfusion Reactions: Motion Sickness Additional Past Anesthesia/Blood Transfusion Reaction / Comment(s): mild claustrophobia Date of Last Stent Placement:: 04/03/16 Past Psychological History: Anxiety, Depression Additional Psychological History / Comment(s): Pt resides with her spouse. She is mostly in her wheelchair. She has a walker and cane. She has a dexcom. Her spouse assists her with her medication organization. Spouse also drives pt. Smoking Status: Current every day smoker Past Alcohol Use History: None Reported Additional Past Alcohol Use History / Comment(s): Pt started smoking in 1988 and quit recently Past Drug Use History: None Reported - Past Family History Father Family Medical History: Congestive Heart Failure (CHF), Coronary Artery Disease (CAD), Diabetes Mellitus Mother Family Medical History: Cancer, COPD, Hypertension, Respiratory Disorder Additional Family Medical History / Comment(s): emphysema, colon CA Medications and Allergies Home Medications Medication Instructions Recorded Confirmed Type Aspirin [Adult Low Dose Aspirin EC] 81 mg PO HS 11/26/17 07/13/24 History DULoxetine HCL [Cymbalta] 60 mg PO DAILY 08/25/18 07/13/24 History Isosorbide Mononitrate ER [Imdur] 60 mg PO DAILY 09/08/18 07/13/24 History Empagliflozin [Jardiance] 10 mg PO DAILY 10/06/22 07/13/24 History Famotidine 20 mg PO BID PRN 10/06/22 07/13/24 History Nitroglycerin Sl Tabs [Nitrostat] 0.4 mg SL Q5M PRN 10/06/22 07/13/24 History Fenofibrate [Lofibra] 160 mg PO DAILY 01/25/23 07/13/24 History Pregabalin [Lyrica] 150 mg PO BID 02/05/23 07/13/24 History Budesonide/Formoterol Fumarate 2 puff INHALATION RT-BID PRN 07/17/23 07/13/24 History [Symbicort 160-4.5 Mcg Inhaler] INSULIN LISPRO (For Pump) [humaLOG 0.01 units SQ-PUMP CONTINUOUS 07/17/23 07/13/24 History (For Pump)] Atorvastatin [Lipitor] 40 mg PO HS 12/11/23 07/13/24 History Magnesium Oxide [Mag-Ox] 400 mg PO BID 03/10/24 07/13/24 History ALPRAZolam [Xanax] 1 mg PO TID PRN 03/28/24 07/13/24 History Cinacalcet [Sensipar] 30 mg PO MOTUWETHFR 03/28/24 07/13/24 History ARIPiprazole [Abilify] 10 mg PO HS 05/04/24 07/13/24 History Ondansetron Odt [Zofran ODT] 8 mg PO Q12HR 05/04/24 07/13/24 History Clopidogrel [Plavix] 75 mg PO DAILY 30 Days #30 tab 05/13/24 07/13/24 Rx Losartan [Cozaar] 25 mg PO DAILY 30 Days #30 tab 06/21/24 07/13/24 Rx Metoprolol Tartrate [Lopressor] 25 mg PO TID 30 Days #90 tab 06/21/24 07/13/24 Rx Sodium Bicarbonate Tab 650 mg PO BID 30 Days #60 tab 06/21/24 07/13/24 Rx hydrALAZINE HCL [Apresoline] 50 mg PO BID 30 Days #60 tab 06/21/24 07/13/24 Rx Allergies Allergy/AdvReac Type Severity Reaction Status Date / Time Fish Containing Products Allergy Anaphylaxis Verified 07/13/24 15:17 Iodinated Contrast Media Allergy Anaphylaxis Verified 07/13/24 15:17 [Iodinated Contrast Media - IV Dye] Sulfa (Sulfonamide Allergy Anaphylaxis Verified 07/13/24 15:17 Antibiotics) sulfamethoxazole Allergy Anaphylaxis Verified 07/13/24 15:17 [From Junra] tree nut [Nut] Allergy Anaphylaxis Verified 07/13/24 15:17 trimethoprim [From ] Allergy Anaphylaxis Verified 07/13/24 15:17 Physical Exam Vitals: Vital Signs Temp Pulse Resp BP Pulse Ox 07/16/24 11:19 97.9 F 65 16 163/72 94 L 07/16/24 08:19 97 07/16/24 07:43 97.6 F 63 14 142/67 94 L 07/16/24 04:00 97.9 F 62 16 121/72 94 L 07/15/24 23:56 60 18 138/84 93 L 07/15/24 20:51 98.1 F 67 18 110/73 92 L 07/15/24 16:05 93 L 07/15/24 16:00 79 16 125/62 95 07/15/24 11:51 91 L 07/15/24 11:50 91 L Intake and Output 07/15/24 07/16/24 07/16/24 22:59 06:59 14:59 Intake Total 540 1310 Output Total 1000 0 Balance -460 0 1310 Intake: IV 10 Invasive Line 3 10 Oral 540 1300 Output: Urine 1000 0 Other: Voiding Method External Catheter External Catheter External Catheter Weight 109 kg patient is awake, comfortable, no acute distress. Examination of the heart S1 and S2 Examination of the lungs bilateral breath sounds are heard Abdomen is examination of lower extremities shows trace edema right lower extremity [employer] REPRESENTATIVE exam grossly intact Results - Lab Results Most recent lab results Calcium 8.3 mg/dL (8.4-10.2) L 07/16/24 06:20 Magnesium 1.5 mg/dL (1.6-2.3) L 07/13/24 13:49 07/16/24 06:20 07/16/24 06:20 Assessment and Plan Assessment: 1. Acute kidney injury, ATN secondary to underlying infection and hypotension. UA is quite benign. 2. left lower lung pneumonia 3. Right lower extremity cellulitis 4. CKD NKF stage IIb-IV with baseline creatinine 1.6-2.0 mg/dL secondary to biopsy-proven diabetic kidney disease 5. History of CVA with residual right sided weakness 6. History of hypercalcemia with initiation off Sensipar as PTH was 154. Axel level was 66. Calcium is currently low therefore Sensipar will be discontinued. Plan: add gentle IV hydration DC Sensipar Repeat vitamin D level as patient may need supplementation since her 25-hydroxy vitamin D was only 6.3 in February. Repeat labs in a.m. May continue with [facility] Thank you for the consultation. We will continue to follow the patient with you during her hospitalization.
--- NOTE | 2024-07-16 13:10 | P.PN ---
Subjective HISTORY OF PRESENT ILLNESS: This is a 53-year-old female with a past medical history significant for hypertension, hyperlipidemia, diabetes, CAD with previous multivessel stenting, chronic kidney disease, and bipolar disorder. Patient follows in the office with Dr. Jasso. We have been asked to see the patient in consultation for non-STEMI. Patient examined at the bedside. Patient spouse is at the bedside. Patient states she does not remember why she came to the hospital. Patient's spouse states that she has been feeling weak, dizzy, and tired for the past week. He states that she was unable to come down her stairs and he had to call EMS. The patient denies having any chest pain or pressure. At the time of examination she denies any shortness of breath. She is somewhat lethargic upon examination. She is currently on 8 L high flow nasal cannula. Blood pressures are currently soft with a recent reading of 90/52. She has a low-grade fever of 99.8. DIAGNOSTICS: - EKG reveals sinus mechanism with LVH, IVCD - Chest xray cardiomegaly - Laboratory data: WBC 25.1. Hemoglobin 11.1. Platelet count 342. Sodium 134. Potassium 4.2. BUN 20. Creatinine 1.59. Magnesium 1.5. Troponin 0.281. 0.274. 0.246. - Current home cardiac medications include aspirin 81 mg daily, Lipitor 40 mg at night, Plavix 75 mg daily, Jardiance 10 mg daily, Imdur 60 mg daily, losartan 25 mg daily, metoprolol tartrate 25 mg 3 times a day, hydralazine 50 mg twice a day - Most recent echocardiogram obtained in May 2024 revealed ejection fraction 55 to 60%, LVH, mild mitral and tricuspid regurgitation - Cardiac catheterization history: November 2023 revealing 60% mid RCA stenosis involving the previously stented segment. Patent stents within the RCA, LAD, and diagonal with moderate nonobstructive disease involving the LAD and the ostial portion of the diagonal branch. Patient underwent IFR of mid RCA by Dr. Mckeon which came to be an abnormal at 0.84. Given long area of prior stenting with increased long-term risk of restenosis, consider medical therapy. If patient having consistent angina would recommend staged PCI of RCA 07/15/2024 Patient examined this morning at the bedside. Patient currently denies chest pain or pressure. She denies shortness of breath. Patient's erythema of right lower extremity is improving. She remains on 6 L high flow nasal cannula. Blood pressure 129/72. Telemetry reveals sinus mechanism. 07/16/2024 Patient examined this morning. She is sitting up in the chair. Patient currently denies chest pain or pressure. She denies shortness of breath. She continues on antibiotics. PHYSICAL EXAM: VITAL SIGNS: Reviewed. GENERAL: Well-developed in no acute distress. HEENT: Head is normocephalic. Pupils are equal, round. Sclerae anicteric. Mucous membranes of the mouth are moist. Neck supple. No JVD or thyromegaly LUNGS: Respirations even and unlabored. Lungs diminished bilaterally HEART: Regular rate and rhythm. S1 and S2 heard. ABDOMEN: Soft. Nondistended. Nontender. EXTREMITIES: Normal range of motion. No clubbing or cyanosis. Peripheral pulses intact. Right lower extremity with erythema noted, improved from yesterday. NEUROLOGIC: Awake and alert. Lethargic ASSESSMENT: Generalized weakness Recent admissions for syncope and TIA Right lower extremity cellulitis Left lower lobe pneumonia Sepsis with fever and leukocytosis Acute hypoxic respiratory failure requiring supplemental oxygen Coronary artery disease with previous multivessel stenting Chronic kidney disease History of TIA Left ventricular hypertrophy Chronically elevated troponins, flat, secondary to poor renal clearance/LVH, no evidence of myocardial injury or ischemia, no clinical significance Hypertension Hyperlipidemia PLAN: Continue current cardiac medications Patient is currently stable from a cardiac perspective Dr. Briones recommends eventual outpatient cardiac MRI Continue antibiotics per infectious disease We will sign off. Please reconsult if needed. Nurse practitioner note has been reviewed by physician. Signing provider agrees with the documented findings, assessment, and plan of care documented by MEAT COOLER as a scribe. Objective - Vital Signs Vital signs: Vital Signs Temp 97.9 F 07/16/24 11:19 Pulse 65 07/16/24 11:19 Resp 16 07/16/24 11:19 BP 163/72 07/16/24 11:19 Pulse Ox 94 L 07/16/24 11:19 FiO2 50 07/14/24 04:09 Intake & Output 07/15/24 07/16/24 07/16/24 18:59 06:59 18:59 Intake Total 717 926 7157 Output Total 1000 0 Balance -062 573 2841 Weight 109 kg Intake: IV 100 10 Invasive Line 3 10 Piperacillin-Tazobactam 3 100 .375 gm In Sodium Chloride 0.9% 100 ml @ 25 mls/hr IVPB Q8HR [facility] Rx# :[id number] Oral 726 [id number] 3847 Output: Urine 1000 0 Other: Voiding Method External Catheter External Catheter External Catheter - Labs CBC & Chem 7: 07/16/24 06:20 07/16/24 06:20 Labs: Abnormal Lab Results - Last 24 Hours (Table) 07/15/24 07/15/24 07/16/24 Range/Units 16:53 20:25 06:20 WBC 16.0 H (3.8-10.6) k/uL RBC 3.35 L (3.80-5.40) m/uL Hgb 10.5 L (11.4-16.0) gm/dL Hct 32.2 L (34.0-46.0) % Neutrophils # 13.5 H (1.3-7.7) k/uL Sodium (137-145) mmol/L BUN (7-17) mg/dL Creatinine (0.52-1.04) mg/dL Glucose (74-99) mg/dL POC Glucose (mg/dL) 408 H 437 H (70-110) mg/dL Calcium (8.4-10.2) mg/dL Alkaline Phosphatase (38-126) U/L Total Protein (6.3-8.2) g/dL Albumin (3.5-5.0) g/dL 07/16/24 07/16/24 07/16/24 Range/Units 06:20 06:30 11:44 WBC (3.8-10.6) k/uL RBC (3.80-5.40) m/uL Hgb (11.4-16.0) gm/dL Hct (34.0-46.0) % Neutrophils # (1.3-7.7) k/uL Sodium 131 L (137-145) mmol/L BUN 43 H (7-17) mg/dL Creatinine 2.36 H (0.52-1.04) mg/dL Glucose 352 H (74-99) mg/dL POC Glucose (mg/dL) 409 H 355 H (70-110) mg/dL Calcium 8.3 L (8.4-10.2) mg/dL Alkaline Phosphatase 144 H (38-126) U/L Total Protein 4.8 L (6.3-8.2) g/dL Albumin 2.5 L (3.5-5.0) g/dL Microbiology - Last 24 Hours (Table) 07/14/24 11:13 Urine Culture - Final Urine,Voided 07/14/24 10:53 Blood Culture - Preliminary Blood
--- NOTE | 2024-07-16 14:45 | P.PN ---
Subjective Progress Note Date: 07/15/24 Principal diagnosis: Reason for follow-up is fever/pneumonia/right leg cellulitis Patient is a 53-year-old female with a past medical history significant for Blood Disorder, Coronary Artery Disease (CAD), Cancer, Chest Pain / Angina, CVA/TIA, Diabetes Mellitus, Deep Vein Thrombosis (DVT), Fibromyalgia, GERD/Reflux, Hyperlipidemia, Hypertension, Myocardial Infarction (OR), also have residual right-sided weakness from the CVA patient has been brought into the hospital for the patient complaining of chest pain and shortness of breath, patient also have a fever concerning for pneumonia/right lower extremity cellulitis. On today's evaluation that is 07/15/2024,the patient did have resolution of her fever and denies any fever or any chills, patient is breathing slightly comfortably on 6 L nasal cannula oxygen the patient denies chest pain or worsening cough, patient denies abdominal pain, no nausea vomiting or diarrhea. Denies pain to the right lower extremity. Patient white count is down to 14.3, creatinine is 2.44 procalcitonin 0.78 UA was negative Objective - Vital Signs Vital signs: Vital Signs Temp 98.5 F 07/15/24 07:24 Pulse 72 07/15/24 11:32 Resp 18 07/15/24 11:32 BP 129/72 07/15/24 11:32 Pulse Ox 91 L 07/15/24 11:51 FiO2 50 07/14/24 04:09 Intake & Output 07/14/24 07/15/24 07/15/24 18:59 06:59 18:59 Intake Total 600.904 0 480 Output Total 1200 Balance -599.096 0 480 Weight 106.5 kg 107 kg Intake: IV 100 Piperacillin-Tazobactam 3 100 .375 gm In Sodium Chloride 0.9% 100 ml @ 25 mls/hr IVPB Q8HR [facility] Rx# :[id number] Intake, IV Titration 112.904 Amount Heparin Sod,Pork in 0.45% 112.904 NaCl 25,000 unit In 0.45 % NaCl 1 250ml.bag @ 10. 599 UNITS/KG/HR 10 mls/hr IV .Q24H [facility] Rx#: [id number] Oral 488 0 380 Output: Urine 1200 Other: Voiding Method External Catheter External Catheter External Catheter # Voids 1 1 # Bowel Movements 1 - Exam GENERAL DESCRIPTION: Middle-age female up n bed in no distress RESPIRATORY SYSTEM: Unlabored breathing , decreased breath sounds at bases HEART: S1 S2 regular rate and rhythm , ABDOMEN: Soft , no tenderness EXTREMITIES: Right leg swelling redness resolved - Labs CBC & Chem 7: 07/16/24 06:20 07/16/24 06:20 Labs: Abnormal Lab Results - Last 24 Hours (Table) 07/14/24 07/14/24 07/14/24 Range/Units 10:53 16:26 20:13 WBC (3.8-10.6) k/uL RBC (3.80-5.40) m/uL Hgb (11.4-16.0) gm/dL Hct (34.0-46.0) % Neutrophils # (1.3-7.7) k/uL Sodium (137-145) mmol/L BUN (7-17) mg/dL Creatinine (0.52-1.04) mg/dL Glucose (74-99) mg/dL POC Glucose (mg/dL) 283 H 328 H (70-110) mg/dL Hemoglobin A1c (<=6.0) % Calcium (8.4-10.2) mg/dL Alkaline Phosphatase (38-126) U/L Total Protein (6.3-8.2) g/dL Albumin (3.5-5.0) g/dL Procalcitonin 0.78 H (0.02-0.50) ng/mL 07/15/24 07/15/24 07/15/24 Range/Units 05:51 06:05 08:46 WBC 14.3 H (3.8-10.6) k/uL RBC 3.09 L (3.80-5.40) m/uL Hgb 9.7 L (11.4-16.0) gm/dL Hct 29.8 L (34.0-46.0) % Neutrophils # 11.6 H (1.3-7.7) k/uL Sodium (137-145) mmol/L BUN (7-17) mg/dL Creatinine (0.52-1.04) mg/dL Glucose (74-99) mg/dL POC Glucose (mg/dL) 274 H (70-110) mg/dL Hemoglobin A1c 11.2 H (<=6.0) % Calcium (8.4-10.2) mg/dL Alkaline Phosphatase (38-126) U/L Total Protein (6.3-8.2) g/dL Albumin (3.5-5.0) g/dL Procalcitonin (0.02-0.50) ng/mL 07/15/24 07/15/24 Range/Units 08:46 11:30 WBC (3.8-10.6) k/uL RBC (3.80-5.40) m/uL Hgb (11.4-16.0) gm/dL Hct (34.0-46.0) % Neutrophils # (1.3-7.7) k/uL Sodium 132 L (137-145) mmol/L BUN 37 H (7-17) mg/dL Creatinine 2.44 H (0.52-1.04) mg/dL Glucose 330 H (74-99) mg/dL POC Glucose (mg/dL) 354 H (70-110) mg/dL Hemoglobin A1c (<=6.0) % Calcium 8.0 L (8.4-10.2) mg/dL Alkaline Phosphatase 157 H (38-126) U/L Total Protein 4.4 L (6.3-8.2) g/dL Albumin 2.4 L (3.5-5.0) g/dL Procalcitonin (0.02-0.50) ng/mL Assessment and Plan (1) SIRS (systemic inflammatory response syndrome) Current Visit: Yes Status: Acute Code(s): R65.10 - SIRS OF NON-INFECTIOUS ORIGIN W/O ACUTE ORGAN DYSFUNCTION SNOMED Code(s): 740972078 (2) Bilateral pneumonia Current Visit: No Status: Acute Code(s): J18.9 - PNEUMONIA, UNSPECIFIED ORG ANISM SNOMED Code(s): 345935253 Plan: 1patient with cirrhosis in this patient who did have a fever elevated white count in this patient with a predominantly respiratory symptoms concerning for possible pneumonia though initial chest x-ray shows only cardiomegaly patient did have mild erythema to the right lower extremity abdominal soft on clinical examination 2-Patient did have elevated procalcitonin of 0.78 chest x-ray with a left lower lobe infiltrate suggestive of pneumonia 3-patient white count is trending down continue with Zosyn try to obtain sputum and monitor clinical course closely Dictation was produced using [employer] dictation software. please excuse any grammatical, word or spelling errors. Time with Patient: Less than 30
--- NOTE | 2024-07-16 14:46 | P.PN ---
Subjective Progress Note Date: 07/16/24 Principal diagnosis: Reason for follow-up is fever/pneumonia/right leg cellulitis Patient is a 53-year-old female with a past medical history significant for Blood Disorder, Coronary Artery Disease (CAD), Cancer, Chest Pain / Angina, CVA/TIA, Diabetes Mellitus, Deep Vein Thrombosis (DVT), Fibromyalgia, GERD/Reflux, Hyperlipidemia, Hypertension, Myocardial Infarction ([place]), also have residual right-sided weakness from the CVA patient has been brought into the hospital for the patient complaining of chest pain and shortness of breath, patient also have a fever concerning for pneumonia/right lower extremity cellulitis. On today's evaluation that is 07/16/2024,the patient remains to be afebrile, patient is on 6 L nasal cannula oxygen supplemental oxygen however the patient denies any shortness of breath no chest pain or any worsening cough.Patient denies having any nausea or vomiting, no abdominal pain and no diarrhea has been reported. Patient white count is up to 16,000, creatinine is 2.36 Objective - Vital Signs Vital signs: Vital Signs Temp 97.9 F 07/16/24 11:19 Pulse 65 07/16/24 11:19 Resp 16 07/16/24 11:19 BP 163/72 07/16/24 11:19 Pulse Ox 94 L 07/16/24 11:19 FiO2 50 07/14/24 04:09 Intake & Output 07/15/24 07/16/24 07/16/24 18:59 06:59 18:59 Intake Total 194 843 2916 Output Total 1000 0 Balance -184 530 4882 Weight 109 kg Intake: IV 100 10 Invasive Line 3 10 Piperacillin-Tazobactam 3 100 .375 gm In Sodium Chloride 0.9% 100 ml @ 25 mls/hr IVPB Q8HR [facility] Rx# :[id number] Oral [id number] Output: Urine 1000 0 Other: Voiding Method External Catheter External Catheter External Catheter - Exam GENERAL DESCRIPTION: Middle-age female up n bed in no distress RESPIRATORY SYSTEM: Unlabored breathing , decreased breath sounds at bases HEART: S1 S2 regular rate and rhythm , ABDOMEN: Soft , no tenderness EXTREMITIES: Right leg swelling redness resolved - Labs CBC & Chem 7: 07/16/24 06:20 07/16/24 06:20 Labs: Abnormal Lab Results - Last 24 Hours (Table) 07/15/24 07/15/24 07/16/24 Range/Units 16:53 20:25 06:20 WBC 16.0 H (3.8-10.6) k/uL RBC 3.35 L (3.80-5.40) m/uL Hgb 10.5 L (11.4-16.0) gm/dL Hct 32.2 L (34.0-46.0) % Neutrophils # 13.5 H (1.3-7.7) k/uL Sodium (137-145) mmol/L BUN (7-17) mg/dL Creatinine (0.52-1.04) mg/dL Glucose (74-99) mg/dL POC Glucose (mg/dL) 408 H 437 H (70-110) mg/dL Calcium (8.4-10.2) mg/dL Alkaline Phosphatase (38-126) U/L Total Protein (6.3-8.2) g/dL Albumin (3.5-5.0) g/dL 07/16/24 07/16/24 07/16/24 Range/Units 06:20 06:30 11:44 WBC (3.8-10.6) k/uL RBC (3.80-5.40) m/uL Hgb (11.4-16.0) gm/dL Hct (34.0-46.0) % Neutrophils # (1.3-7.7) k/uL Sodium 131 L (137-145) mmol/L BUN 43 H (7-17) mg/dL Creatinine 2.36 H (0.52-1.04) mg/dL Glucose 352 H (74-99) mg/dL POC Glucose (mg/dL) 409 H 355 H (70-110) mg/dL Calcium 8.3 L (8.4-10.2) mg/dL Alkaline Phosphatase 144 H (38-126) U/L Total Protein 4.8 L (6.3-8.2) g/dL Albumin 2.5 L (3.5-5.0) g/dL Microbiology - Last 24 Hours (Table) 07/14/24 11:13 Urine Culture - Final Urine,Voided 07/14/24 10:53 Blood Culture - Preliminary Blood Assessment and Plan (1) SIRS (systemic inflammatory response syndrome) Current Visit: Yes Status: Acute Code(s): R65.10 - SIRS OF NON-INFECTIOUS ORIGIN W/O ACUTE ORGAN DYSFUNCTION SNOMED Code(s): 619862748 (2) Bilateral pneumonia Current Visit: No Status: Acute Code(s): J18.9 - PNEUMONIA, UNSPECIFIED ORGANISM SNOMED Code(s): 779260211 Plan: 1patient with cirrhosis in this patient who did have a fever elevated white count in this patient with a predominantly respiratory symptoms concerning for possible pneumonia though initial chest x-ray shows only cardiomegaly patient did have mild erythema to the right lower extremity abdominal soft on clinical examination 2-Patient did have elevated procalcitonin of 0.78 chest x-ray with a left lower lobe infiltrate suggestive of pneumonia 3-patient did have resolution of her fever white count is slightly up today need to be monitored closely we will continue Zosyn try to obtain a sputum repeat CBC with a.m. lab Dictation was produced using [employer] dictation software. please excuse any grammatical, word or spelling errors. Time with Patient: Less than 30
[2024-07-16 17:01] LABS: Glucose,Whole Blood 471 mg/dL (70-110)
--- NOTE | 2024-07-16 18:12 | P.PN ---
Subjective Progress Note Date: 07/16/24 Leticia huff a 53-year-old female patient well-known to my services who presented with concerns of chest pain that started last night and increased shortness of breath. Patient has an extensive medical history including previous stent placement x 5, CVA, diabetes mellitus and ongoing nicotine depend ence. Chest x-ray completed showing cardiomegaly. EKG completed showing right bundle branch block. Patient negative for influenza, RSV and COVID-19. Troponin elevated at 0.246. White blood cell 14.7, sodium 134, creatinine 1.59 and bun 20. Patient was started on heparin drip due to elevated troponin. Patient also noted to have elevated temp at 100.1. Patient is also lethargic will wake up and answer questions but quickly fall back to sleep right lower extremity warm and redness noted concerns for cellulitis. At this time cardiology services have been consulted due to concerns of infection will order blood culture and UA. Patient started on IV Kefzol for lower extremity cellulitis. Infectious disease services consulted. Patient also requiring 8 L high flow nasal cannula. Will consult pulmonary services. Current vital signs temp 99.1, heart rate 89, respiratory rate 23, blood pressure 108/72 and a pulse ox of 96% on high flow 8 L patient denies any chest pain. Patient does report some shortness of breath. Patient denies any nausea vomiting or diarrhea. Patient denies any urinary burning or frequency On 07/15/2024 patient is alert and oriented x 3. Mentation significantly improved from yesterday. Two-view chest x-ray was completed showing left lower lobe infiltrate. Antibiotics adjusted to Zosyn per ID. Heparin drip DC'd per cardiology acute coronary event has been ruled out. Patient also started on p.o. prednisone per pulmonary. White blood cell improving to 14.3. Creatinine increasing to 2.44 bun 37 will consult nephrology services. Patient was started on IV Lasix per cardiology. At this time patient denies chest pain or shortness of breath. Patient denies nausea vomiting or diarrhea. Patient denies any urinary burning or frequency. Current vital signs temp 98.5, heart rate 71, respiratory rate 16, blood pressure 106/65 with a pulse ox of 93% on 8 L On 07/16/2024 patient was seen and examined on the medical floor she is alert and oriented x 3 in no apparent distress there is no fever or chills she is still complaining of cough no chest pain she has shortness of breath with activity no nausea or vomiting no abdominal pain no diarrhea no urinary symptoms. Patient is maintained on steroids, her glucose is elevated, will add Levemir 15 units at bedtime and continue to monitor closely. Objective - Vital Signs Vital signs: Vital Signs Temp 97.8 F 07/16/24 16:00 Pulse 95 07/16/24 16:00 Resp 16 07/16/24 16:00 BP 162/70 07/16/24 16:00 Pulse Ox 93 L 07/16/24 16:00 FiO2 50 07/14/24 04:09 Intake & Output 07/15/24 07/16/24 07/16/24 18:59 06:59 18:59 Intake Total 335 874 0872 Output Total 1000 0 2000 Balance -520 540 -320 Weight 109 kg Intake: IV 100 20 Invasive Line 3 20 Piperacillin-Tazobactam 3 100 .375 gm In Sodium Chloride 0.9% 100 ml @ 25 mls/hr IVPB Q8HR [facility] Rx# :[id number] Oral [id number] Output: Urine 1000 0 2000 Other: Voiding Method External Catheter External Catheter External Catheter - Exam Head normocephalic Neck supple Lungs diminished bilaterally with expiratory wheezing Heart regular rate and rhythm S1-S2, no rub or gallop Abdomen is soft nontender nondistended positive bowel sounds no hepatosplenomegaly Extremities right lower extremity erythema Neuro alert and orientated to 3 - Labs CBC & Chem 7: 07/16/24 06:20 07/16/24 06:20 Labs: Abnormal Lab Results - Last 24 Hours (Table) 07/15/24 07/16/24 07/16/24 Range/Units 20:25 06:20 06:20 WBC 16.0 H (3.8-10.6) k/uL RBC 3.35 L (3.80-5.40) m/uL Hgb 10.5 L (11.4-16.0) gm/dL Hct 32.2 L (34.0-46.0) % Neutrophils # 13.5 H (1.3-7.7) k/uL Sodium 131 L (137-145) mmol/L BUN 43 H (7-17) mg/dL Creatinine 2.36 H (0.52-1.04) mg/dL Glucose 352 H (74-99) mg/dL POC Glucose (mg/dL) 437 H (70-110) mg/dL Calcium 8.3 L (8.4-10.2) mg/dL Alkaline Phosphatase 144 H (38-126) U/L Total Protein 4.8 L (6.3-8.2) g/dL Albumin 2.5 L (3.5-5.0) g/dL 07/16/24 07/16/24 07/16/24 Range/Units 06:30 11:44 16:59 WBC (3.8-10.6) k/uL RBC (3.80-5.40) m/uL Hgb (11.4-16.0) gm/dL Hct (34.0-46.0) % Neutrophils # (1.3-7.7) k/uL Sodium (137-145) mmol/L BUN (7-17) mg/dL Creatinine (0.52-1.04) mg/dL Glucose (74-99) mg/dL POC Glucose (mg/dL) 409 H 355 H 471 H (70-110) mg/dL Calcium (8.4-10.2) mg/dL Alkaline Phosphatase (38-126) U/L Total Protein (6.3-8.2) g/dL Albumin (3.5-5.0) g/dL Microbiology - Last 24 Hours (Table) 07/14/24 10:53 Blood Culture - Preliminary Blood 07/14/24 11:13 Urine Culture - Final Urine,Voided Assessment and Plan Assessment: 1. Chest pain with elevated troponin. Cardiology services following acute coronary event has been ruled out 2. Febrile and leukocytosis secondary to possible pneumonia. RSV COVID and influenza negative chest x-ray negative. Blood culture and urine cultures ordered 3. Right lower extremity cellulitis 4. Respiratory failure requiring 8 L nasal cannula. Pulmonary services consulted 5. History of coronary artery disease with previous stent placement x 5 6. History of CVA 7. History of insulin-dependent diabetes mellitus maintained on home insulin pump this was DC'd during hospitalization sliding scale coverage added 8. History of hyperlipidemia 9. History of chronic kidney disease 10. Ongoing nicotine dependence 11. Acute kidney injury. Nephrology services consulted DVT prophylaxis heparin drip. GI prophylaxis Protonix Cardiology, infectious disease and pulmonary services consulted Patient started on IV antibiotic Blood and urine cultures ordered Repeat labs ordered
[2024-07-16] MEDS: INSULIN DETEMIR (LEVEMIR) 100 UNIT/ML SYR SQ SCH (20:24)
[2024-07-16 20:48] LABS: Glucose,Whole Blood 539 mg/dL (70-110)
[2024-07-17 06:05] LABS: Glucose,Whole Blood 342 mg/dL (70-110)
--- NOTE | 2024-07-17 09:19 | P.PN ---
Subjective Progress Note Date: 07/17/24 Leticia huff a 53-year-old female patient well-known to my services who presented with concerns of chest pain that started last night and increased shortness of breath. Patient has an extensive medical history including previous stent placement x 5, CVA, diabetes mellitus and ongoing nicotine depend ence. Chest x-ray completed showing cardiomegaly. EKG completed showing right bundle branch block. Patient negative for influenza, RSV and COVID-19. Troponin elevated at 0.246. White blood cell 14.7, sodium 134, creatinine 1.59 and bun 20. Patient was started on heparin drip due to elevated troponin. Patient also noted to have elevated temp at 100.1. Patient is also lethargic will wake up and answer questions but quickly fall back to sleep right lower extremity warm and redness noted concerns for cellulitis. At this time cardiology services have been consulted due to concerns of infection will order blood culture and UA. Patient started on IV Kefzol for lower extremity cellulitis. Infectious disease services consulted. Patient also requiring 8 L high flow nasal cannula. Will consult pulmonary services. Current vital signs temp 99.1, heart rate 89, respiratory rate 23, blood pressure 108/72 and a pulse ox of 96% on high flow 8 L patient denies any chest pain. Patient does report some shortness of breath. Patient denies any nausea vomiting or diarrhea. Patient denies any urinary burning or frequency On 07/15/2024 patient is alert and oriented x 3. Mentation significantly improved from yesterday. Two-view chest x-ray was completed showing left lower lobe infiltrate. Antibiotics adjusted to Zosyn per ID. Heparin drip DC'd per cardiology acute coronary event has been ruled out. Patient also started on p.o. prednisone per pulmonary. White blood cell improving to 14.3. Creatinine increasing to 2.44 bun 37 will consult nephrology services. Patient was started on IV Lasix per cardiology. At this time patient denies chest pain or shortness of breath. Patient denies nausea vomiting or diarrhea. Patient denies any urinary burning or frequency. Current vital signs temp 98.5, heart rate 71, respiratory rate 16, blood pressure 106/65 with a pulse ox of 93% on 8 L On 07/16/2024 patient was seen and examined on the medical floor she is alert and oriented x 3 in no apparent distress there is no fever or chills she is still complaining of cough no chest pain she has shortness of breath with activity no nausea or vomiting no abdominal pain no diarrhea no urinary symptoms. Patient is maintained on steroids, her glucose is elevated, will add Levemir 15 units at bedtime and continue to monitor closely. On 07/17/2024 patient is alert and oriented x 3. Patient still having elevated blood sugars Levemir will be increased to 25 units. Patient was placed on prednisone. Patient remains on 5 L nasal cannula. Patient denies chest pain or shortness of breath. Patient denies nausea vomiting or diarrhea. Patient denies any urinary burning or frequency Objective - Vital Signs Vital signs: Vital Signs Temp 97.6 F 07/17/24 07:24 Pulse 71 07/17/24 08:12 Resp 16 07/17/24 08:12 BP 189/83 07/17/24 07:24 Pulse Ox 96 07/17/24 07:24 FiO2 50 07/14/24 04:09 Intake & Output 07/16/24 07/17/24 07/17/24 18:59 06:59 18:59 Intake Total 2460 20 370 Output Total 2000 0 Balance 460 20 370 Weight 111.5 kg Intake: IV 20 20 10 Invasive Line 3 20 20 10 Oral 2440 360 Output: Gastric Drainage 0 Urine 2000 0 Stool 0 Urine/Stool Mix 0 Emesis 0 Oral Regurgitation 0 Other 0 Other: Voiding Method External Catheter External Catheter External Catheter # Voids 0 # Bowel Movements 0 - Exam Head normocephalic Neck supple Lungs diminished bilaterally with expiratory wheezing Heart regular rate and rhythm S1-S2, no rub or gallop Abdomen is soft nontender nondistended positive bowel sounds no hepatosplenomegaly Extremities right lower extremity erythema Neuro alert and orientated to 3 - Labs CBC & Chem 7: 07/16/24 06:20 07/16/24 06:20 Labs: Abnormal Lab Results - Last 24 Hours (Table) 07/16/24 07/16/24 07/16/24 Range/Units 11:44 16:59 20:46 POC Glucose (mg/dL) 355 H 471 H 539 H* (70-110) mg/dL 07/17/24 Range/Units 06:04 POC Glucose (mg/dL) 342 H (70-110) mg/dL Microbiology - Last 24 Hours (Table) 07/14/24 10:53 Blood Culture - Preliminary Blood Assessment and Plan Assessment: 1. Chest pain with elevated troponin. Cardiology services following acute coronary event has been ruled out 2. Febrile and leukocytosis secondary to possible pneumonia. RSV COVID and influenza negative chest x-ray negative. Blood culture and urine cultures orde red 3. Right lower extremity cellulitis 4. Respiratory failure requiring 8 L nasal cannula. Pulmonary services consulted 5. History of coronary artery disease with previous stent placement x 5 6. History of CVA 7. History of insulin-dependent diabetes mellitus maintained on home insulin p ump this was DC'd during hospitalization sliding scale coverage added 8. History of hyperlipidemia 9. History of chronic kidney disease 10. Ongoing nicotine dependence 11. Acute kidney injury. Nephrology services consulted DVT prophylaxis heparin drip. GI prophylaxis Protonix Cardiology, infectious disease and pulmonary services consulted Patient started on IV antibiotic Blood and urine cultures ordered Repeat labs ordered
[2024-07-17 11:42] LABS: Glucose,Whole Blood 366 mg/dL (70-110)
[2024-07-17 12:05] VITALS: BMI 39.6
--- NOTE | 2024-07-17 12:53 | P.PN ---
Subjective Progress Note Date: 07/17/24 Principal diagnosis: Reason for follow-up is fever/pneumonia/right leg cellulitis Patient is a 53-year-old female with a past medical history significant for Blood Disorder, Coronary Artery Disease (CAD), Cancer, Chest Pain / Angina, CVA/TIA, Diabetes Mellitus, Deep Vein Thrombosis (DVT), Fibromyalgia, GERD/Reflux, Hyperlipidemia, Hypertension, Myocardial Infarction ([place]), also have residual right-sided weakness from the CVA patient has been brought into the hospital for the patient complaining of chest pain and shortness of breath, patient also have a fever concerning for pneumonia/right lower extremity cellulitis. On today's evaluation that is 07/17/2024, the patient continues to be afebrile, the patient is on 5 L nasal cannula oxygen and breathing comfortably, the Pt denies having any chest pain and coughing decrease in intensity , the patient denies having any abdominal pain no vomiting or any diarrhea, denies pain to the right lower extremity. No new lab has been repeated today blood cultures so far negative urine is negative sputum not collected Objective - Vital Signs Vital signs: Vital Signs Temp 97.8 F 07/17/24 11:35 Pulse 67 07/17/24 12:37 Resp 16 07/17/24 12:37 BP 169/75 07/17/24 11:35 Pulse Ox 95 07/17/24 11:35 FiO2 50 07/14/24 04:09 Intake & Output 07/16/24 07/17/24 07/17/24 18:59 06:59 18:59 Intake Total 2460 20 380 Output Total 2000 600 Balance 460 20 -220 Weight 111.5 kg 111.5 kg Intake: IV 20 20 20 Invasive Line 3 20 20 20 Oral 2440 360 Output: Gastric Drainage 0 Urine 2000 600 Stool 0 Urine/Stool Mix 0 Emesis 0 Oral Regurgitation 0 Other 0 Other: Voiding Method External Catheter External Catheter External Catheter # Voids 0 # Bowel Movements 0 - Exam GENERAL DESCRIPTION: Middle-age female up n bed in no distress RESPIRATORY SYSTEM: Unlabored breathing , decreased breath sounds at bases HEART: S1 S2 regular rate and rhythm , ABDOMEN: Soft , no tenderness EXTREMITIES: Right leg swelling redness resolved - Labs CBC & Chem 7: 07/16/24 06:20 07/16/24 06:20 Labs: Abnormal Lab Results - Last 24 Hours (Table) 07/16/24 07/16/24 07/16/24 Range/Units 06:20 16:59 20:46 POC Glucose (mg/dL) 471 H 539 H* (70-110) mg/dL Vitamin D 25-Hydroxy <5.0 L (30.0-100.0) ng/mL 07/17/24 07/17/24 Range/Units 06:04 11:40 POC Glucose (mg/dL) 342 H 366 H (70-110) mg/dL Vitamin D 25-Hydroxy (30.0-100.0) ng/mL Microbiology - Last 24 Hours (Table) 07/14/24 10:53 Blood Culture - Preliminary Blood Assessment and Plan (1) SIRS (systemic inflammatory response syndrome) Current Visit: Yes Status: Acute Code(s): R65.10 - SIRS OF NON-INFECTIOUS ORIGIN W/O ACUTE ORGAN DYSFUNCTION SNOMED Code(s): 477848910 (2) Bilateral pneumonia Current Visit: No Status: Acute Code(s): J18.9 - PNEUMONIA, UNSPECIFIED ORGANISM SNOMED Code(s): 341300538 Plan: 1patient with cirrhosis in this patient who did have a fever elevated white count in this patient with a predominantly respiratory symptoms concerning for possible pneumonia though initial chest x-ray shows only cardiomegaly patient did have mild erythema to the right lower extremity abdominal soft on clinical examination 2-Patient did have elevated procalcitonin of 0.78 chest x-ray with a left lower lobe infiltrate suggestive of pneumonia 3-patient did have resolution of her fever white count is slightly up yesterday no CBC was done today we will repeat a CBC with a.m. lab and continue with Zosyn in view of clinical response Dictation was produced using [employer] dictation software. please excuse any grammatical, word or spelling errors. Time with Patient: Less than 30
--- NOTE | 2024-07-17 14:11 | P.PN ---
Subjective Progress Note Date: 07/17/24 Principal diagnosis: Shortness of breath. This is a 53-year-old female patient with a prior history of multiple strokes with residual right sided weakness, diabetes mellitus, coronary disease with multiple stent placements, uterine/cervical and ovarian cancer, sleep apnea utilizing CPAP chronic tobacco dependence, anxiety/depression. She presented here to the emergency room yesterday with complaints of chest pain and shortness of breath. EKG reveals sinus rhythm with a left bundle branch block. X-ray reveals evidence of cardiomegaly. White count 25.1. Hemoglobin 11.1. Platelets 342. Glucose 278. Troponins 0.281, 0.274, 0.246. She was initially on a heparin drip per cardiology. An echocardiogram from May 2024 revealed severe left ventricular hypertrophy, preserved left ventricular systolic function with an ejection fraction of 55 to 60%. No significant valvular abnormalities. She has been initiated on IV diuretics. Currently in a negative balance. Progress note dated July 15, 2024. 53-year-old female seen today in room 371. She continues on nasal O2 at 8 L. She apparently did use BiPAP, with settings of 10/5, and 50%. She is not receiving any IV fluids. Her procalcitonin level was 0.78. She continues on Zosyn. Clinically, she states that she is feeling better. White count was 14.3, hemoglobin 9.7, hematocrit 29.8, and platelet count 279,000. Sodium 132, potassium 4.8, chlorides 100, CO2 23, BUN 37, creatinine 2.44. Glucose is 330. Calcium is 8. Albumin is 2.4. Chest x-ray reveals a left lower lobe infiltrate, and some atelectasis, in the right midlung area. Progress note dated July 16, 2024. The patient is seen again in room 371. She is down from 8 L to 5 L nasal cannula high flow. She is not receiving any IV fluids. She continues on Zosyn for suspected pneumonia. White count of 16, hemoglobin 10.5, hematocrit 32.2, and platelet count is normal. Sodium 131, potassium 4.9, chloride 99, CO2 24, BUN 43, and creatinine 2.36. Glucose is 409. Albumin is 2.5. Calcium is 8.3. Culture data is thus far negative. Procalcitonin was elevated at 0.78. Progress note dated July 17, 2024. 53-year-old female seen in room 371. She is currently on nasal O2 at 5 L. She denies any shortness of breath. She states that her breathing is improved. The only lab today was a glucose of 366. She is laying nearly flat in bed without any respiratory distress or difficulty. Urine and blood cultures are thus far negative. The patient continues on Zosyn. Objective - Vital Signs Vital signs: Vital Signs Temp 97.8 F 07/17/24 11:35 Pulse 67 07/17/24 12:37 Resp 16 07/17/24 12:37 BP 169/75 07/17/24 11:35 Pulse Ox 95 07/17/24 11:35 FiO2 50 07/14/24 04:09 Intake & Output 07/16/24 07/17/24 07/17/24 18:59 06:59 18:59 Intake Total 2460 20 380 Output Total 2000 1100 Balance 460 20 -720 Weight 111.5 kg 111.5 kg Intake: IV 20 20 20 Invasive Line 3 20 20 20 Oral 2440 360 Output: Gastric Drainage 0 Urine 2000 1100 Stool 0 Urine/Stool Mix 0 Emesis 0 Oral Regurgitation 0 Other 0 Other: Voiding Method External Catheter External Catheter External Catheter # Voids 0 # Bowel Movements 0 - Exam No acute distress, oriented 3. No respiratory distress, despite being on 5 L nasal cannula. HEENT examination is grossly unremarkable. Mucous membranes are moist. No oral lesions. Neck supple. Full range of motion. No adenopathy thyromegaly or neck vein distention. Cardiovascular examination reveals regular rhythm rate. S1-S2 normal. No S3 or S4. No discernible murmur noted. Lungs reveal slight clear breath sounds. Few scattered rhonchi. No wheezes or crackles. Breath sounds equal. Saturations are 96 %. Abdomen soft bowel sounds are heard. No masses or tenderness. Extremities are intact. No cyanosis clubbing or edema. Skin is without rash or lesion. Neurologic examination is brief but nonfocal. - Labs CBC & Chem 7: 07/16/24 06:20 07/16/24 06:20 Labs: Abnormal Lab Results - Last 24 Hours (Table) 07/16/24 07/16/24 07/16/24 Range/Units 06:20 16:59 20:46 POC Glucose (mg/dL) 471 H 539 H* (70-110) mg/dL Vitamin D 25-Hydroxy <5.0 L (30.0-100.0) ng/mL 07/17/24 07/17/24 Range/Units 06:04 11:40 POC Glucose (mg/dL) 342 H 366 H (70-110) mg/dL Vitamin D 25-Hydroxy (30.0-100.0) ng/mL Microbiology - Last 24 Hours (Table) 07/14/24 10:53 Blood Culture - Preliminary Blood Assessment and Plan Assessment: Chest pain in a patient with a known history of coronary artery disease. Acute hypoxemic respiratory failure secondary to possible COPD exacerbation versus early pneumonia, LLL. Right lower extremity cellulitis. Febrile illness secondary to above. Leukocytosis secondary to above. Chronic and ongoing tobacco dependence. Coronary artery disease with multiple stent placements. Chronic kidney disease. History of double TIA/CVAs with residual right sided weakness. Diabetes mellitus. History of anxiety/depression. Fibromyalgia. Hypertension. Hyperlipidemia. Obstructive sleep apnea utilizing CPAP. History of uterine/ovarian cancer. Factor V blood disorder. Plan: Plan dated July 15, 2024. The patient is seen today in room 371. Her chest x-ray reveals a left lower lobe infiltrate. The patient continues on Zosyn. Her procalcitonin level was elevated 0.78. The patient is currently on nasal cannula high flow, 8 L. We will continue to follow make recommendations along the way. Labs, x-rays, and all medications are reviewed. Prognosis is certainly guarded. Plan dated July 16, 2024. The patient has been weaned down from 8 L high flow oxygen to 5 L. Saturations are in the low to mid 90s. The patient continues on Zosyn. The procalcitonin level was elevated. Labs, x-rays, and medications are reviewed. Prognosis is guarded. We will continue to follow the patient, and make recommendations along the way. Plan dated July 17, 2024. The patient is again seen in room 371. Her nasal O2 has been weaned down from 8 L to 5. Her saturations are excellent. She is in no acute distress. She is nearly laying flat in bed. Labs, x-rays, medications are reviewed. The patient continues on Zosyn. She is being followed by infectious diseases. No additional recommendations are made. The patient's overall prognosis remains guarded. We will continue to follow the patient, and make recommendations along the way. Time with Patient: Less than 30
[2024-07-17] MEDS: HYDROcodone/APAP 5-325MG 1 EACH TAB PO PRN (15:48)
[2024-07-17 16:04] LABS: Glucose,Whole Blood 533 mg/dL (70-110)
[2024-07-17 16:04] LABS: Glucose,Whole Blood 522 mg/dL (70-110)
[2024-07-17] MEDS: INSULIN ASPART (NovoLOG) 100 UNIT/ML VIAL SQ ONE (16:19)
--- NOTE | 2024-07-17 18:46 | P.PN ---
Subjective Patient is seen for follow-up for acute kidney injury and chronic kidney disease. Diuretics and angiotensin receptor blockers on hold. Patient is being treated for right lower extremity cellulitis and pneumonia. No significant complaints today. Labs are pending. Objective - Vital Signs Vital signs: Vital Signs Temp 97.8 F 07/17/24 15:03 Pulse 70 07/17/24 15:03 Resp 16 07/17/24 15:03 BP 163/68 07/17/24 15:03 Pulse Ox 97 07/17/24 15:03 FiO2 50 07/14/24 04:09 Intake & Output 07/16/24 07/17/24 07/17/24 18:59 06:59 18:59 Intake Total 2460 20 860 Output Total 1999 1650 Balance 460 20 -790 Weight 111.5 kg 111.5 kg Intake: IV 20 20 20 Invasive Line 3 20 20 20 Oral 2440 840 Output: Gastric Drainage 0 Urine 1999 1650 Stool 0 Urine/Stool Mix 0 Emesis 0 Oral Regurgitation 0 Other 0 Other: Voiding Method External Catheter External Catheter External Catheter # Voids 0 # Bowel Movements 0 - Exam patient is awake, comfortable, no acute distress. Examination of the heart S1 and S2 Examination of the lungs bilateral breath sounds are heard Abdomen is examination of lower extremities shows trace edema right lower extremity [employer] exam grossly intact - Labs CBC & Chem 7: 07/16/24 06:20 07/16/24 06:20 Labs: Abnormal Lab Results - Last 24 Hours (Table) 07/16/24 07/16/24 07/17/24 Range/Units 06:20 20:46 06:04 POC Glucose (mg/dL) 539 H* 342 H (70-110) mg/dL Vitamin D 25-Hydroxy <5.0 L (30.0-100.0) ng/mL 07/17/24 07/17/24 07/17/24 Range/Units 11:40 16:02 16:03 POC Glucose (mg/dL) 366 H 533 H* 522 H* (70-110) mg/dL Vitamin D 25-Hydroxy (30.0-100.0) ng/mL Microbiology - Last 24 Hours (Table) 07/14/24 10:53 Blood Culture - Preliminary Blood Assessment and Plan Assessment: 1. Acute kidney injury, ATN secondary to underlying infection and hypotension. UA is quite benign. Diuretics and angiotensin receptor blockers on hold. 2. left lower lung pneumonia 3. Right lower extremity cellulitis 4. CKD NKF stage IIb-IV with baseline creatinine 1.6-2.0 mg/dL secondary to biopsy-proven diabetic kidney disease 5. History of CVA with residual right sided weakness 6. History of hypercalcemia with initiation off Sensipar as PTH was 154. Axel level was 66. Calcium is currently low therefore Sensipar will be discontinued. 7. Severe nutritional vitamin D deficiency with 25-hydroxy vitamin D of less than 5 Plan: add gentle IV hydration if renal function not improved. Continue off of Sensipar. Control blood sugars Replace vitamin D Repeat labs in a.m. May continue with [facility]
[2024-07-17] MEDS ORDERED: ERGOCALCIFEROL 1,250 MCG (50,000 IU) CAPSULE PO SCH (19:00)
[2024-07-17 20:07] LABS: Glucose,Whole Blood 516 mg/dL (70-110)
[2024-07-17] MEDS: INSULIN DETEMIR (LEVEMIR) 100 UNIT/ML SYR SQ SCH (20:27)
[2024-07-17] MEDS: CHOLECALCIFEROL 125 MCG (5000 IU) TABLET PO SCH (20:28)
[2024-07-18 06:34] LABS: Glucose,Whole Blood 306 mg/dL (70-110)
[2024-07-18 06:47] LABS: Basophils # (A) 0.1 k/uL (0-0.2); Basophils % (A) 0 %; Eosinophils % (A) 0 %; HCT 34.4 % (34.0-46.0); HGB 11.1 gm/dL (11.4-16.0); Lymphocytes # (A) 2.1 k/uL (1.0-4.8); Lymphocytes % (A) 12 %; MCH 30.6 pg (25.0-35.0); MCHC 32.2 g/dL (31.0-37.0); MCV 94.9 fL (80.0-100.0); Monocytes # (A) 0.7 k/uL (0-1.0); Monocytes % (A) 4 %; Neutrophils % (A) 83 %; Platelet Count 444 k/uL (150-450); RBC 3.62 m/uL (3.80-5.40); RDW 14.2 % (11.5-15.5); WBC 16.9 k/uL (3.8-10.6)
[2024-07-18 07:09] LABS: ALT 11 U/L (4-34); AST 13 U/L (14-36); African American GFR (CKD) 31 (>60 ml/min/1.73 sqM); Albumin 3.1 g/dL (3.5-5.0); Alkaline Phosphatase 175 U/L (38-126); Anion Gap 7 mmol/L; Blood Urea Nitrogen 60 mg/dL (7-17); Calcium 9.5 mg/dL (8.4-10.2); Carbon Dioxide 23 mmol/L (22-30); Chloride 97 mmol/L (98-107); Glucose 313 mg/dL (74-99); Non-African American GFR(CKD) 26 (>60 ml/min/1.73 sqM); Sodium 127 mmol/L (137-145); Total Bilirubin 0.4 mg/dL (0.2-1.3); Total Protein 5.5 g/dL (6.3-8.2)
--- NOTE | 2024-07-18 10:32 | P.PN ---
Subjective Progress Note Date: 07/18/24 Principal diagnosis: Shortness of breath. This is a 53-year-old female patient with a prior history of multiple strokes with residual right sided weakness, diabetes mellitus, coronary disease with multiple stent placements, uterine/cervical and ovarian cancer, sleep apnea utilizing CPAP chronic tobacco dependence, anxiety/depression. She presented here to the emergency room yesterday with complaints of chest pain and shortness of breath. EKG reveals sinus rhythm with a left bundle branch block. X-ray reveals evidence of cardiomegaly. White count 25.1. Hemoglobin 11.1. Platelets 342. Glucose 278. Troponins 0.281, 0.274, 0.246. She was initially on a heparin drip per cardiology. An echocardiogram from May 2024 revealed severe left ventricular hypertrophy, preserved left ventricular systolic function with an ejection fraction of 55 to 60%. No significant valvular abnormalities. She has been initiated on IV diuretics. Currently in a negative balance. Progress note dated July 15, 2024. 53-year-old female seen today in room 371. She continues on nasal O2 at 8 L. She apparently did use BiPAP, with settings of 10/5, and 50%. She is not receiving any IV fluids. Her procalcitonin level was 0.78. She continues on Zosyn. Clinically, she states that she is feeling better. White count was 14.3, hemoglobin 9.7, hematocrit 29.8, and platelet count 279,000. Sodium 132, potassium 4.8, chlorides 100, CO2 23, BUN 37, creatinine 2.44. Glucose is 330. Calcium is 8. Albumin is 2.4. Chest x-ray reveals a left lower lobe infiltrate, and some atelectasis, in the right midlung area. Progress note dated July 16, 2024. The patient is seen again in room 371. She is down from 8 L to 5 L nasal cannula high flow. She is not receiving any IV fluids. She continues on Zosyn for suspected pneumonia. White count of 16, hemoglobin 10.5, hematocrit 32.2, and platelet count is normal. Sodium 131, potassium 4.9, chloride 99, CO2 24, BUN 43, and creatinine 2.36. Glucose is 409. Albumin is 2.5. Calcium is 8.3. Culture data is thus far negative. Procalcitonin was elevated at 0.78. Progress note dated July 17, 2024. 53-year-old female seen in room 371. She is currently on nasal O2 at 5 L. She denies any shortness of breath. She states that her breathing is improved. The only lab today was a glucose of 366. She is laying nearly flat in bed without any respiratory distress or difficulty. Urine and blood cultures are thus far negative. The patient continues on Zosyn. Progress note dated July 18, 2024. 53-year-old female seen in room 371. The patient has been weaned down to 5 L nasal cannula. She is not receiving any IV fluids other than saline at 10 cc an hour. She is getting Zosyn for presumed infection. She did smoke for 35 years, at 1 pack of cigarettes a day. Current labs include a white count of 16.9, hemoglobin 11.1, hematocrit 34.4, platelet count 444,000. Sodium 127, potassium 5, chloride 97, CO2 23, BUN 60, creatinine 2.10. Glucose is 306. Albumin is 3.1. Blood and urine cultures are thus far negative. Objective - Vital Signs Vital signs: Vital Signs Temp 97.6 F 07/18/24 08:21 Pulse 64 07/18/24 08:22 Resp 17 07/18/24 08:24 BP 188/85 07/18/24 08:21 Pulse Ox 97 07/18/24 08:24 FiO2 50 07/14/24 04:09 Intake & Output 07/17/24 07/18/24 07/18/24 18:59 06:59 18:59 Intake Total 860 20 128 Output Total 1650 700 Balance -790 -680 128 Weight 111.5 kg 103.7 kg Intake: IV 20 20 10 Invasive Line 3 20 20 10 Oral 840 118 Output: Gastric Drainage 0 Urine 1650 700 Stool 0 Urine/Stool Mix 0 Emesis 0 Oral Regurgitation 0 Other 0 Other: Voiding Method External Catheter External Catheter External Catheter # Voids 0 2 # Bowel Movements 0 - Exam No acute distress, oriented 3. No respiratory distress, despite being on 5 L nasal cannula. HEENT examination is grossly unremarkable. Mucous membranes are moist. No oral lesions. Neck supple. Full range of motion. No adenopathy thyromegaly or neck vein distention. Cardiovascular examination reveals regular rhythm rate. S1-S2 normal. No S3 or S4. No discernible murmur noted. Lungs reveal slight clear breath sounds. Few scattered rhonchi. No wheezes or crackles. Breath sounds equal. Saturations are 98 %. Abdomen soft bowel sounds are heard. No masses or tenderness. Extremities are intact. No cyanosis clubbing or edema. Skin is without rash or lesion. Neurologic examination is brief but nonfocal. - Labs CBC & Chem 7: 07/18/24 05:59 07/18/24 05:59 Labs: Abnormal Lab Results - Last 24 Hours (Table) 07/17/24 07/17/24 07/17/24 Range/Units 11:40 16:02 16:03 WBC (3.8-10.6) k/uL RBC (3.80-5.40) m/uL Hgb (11.4-16.0) gm/dL Neutrophils # (1.3-7.7) k/uL Sodium (137-145) mmol/L Chloride (98-107) mmol/L BUN (7-17) mg/dL Creatinine (0.52-1.04) mg/dL Glucose (74-99) mg/dL POC Glucose (mg/dL) 366 H 533 H* 522 H* (70-110) mg/dL AST (14-36) U/L Alkaline Phosphatase (38-126) U/L Total Protein (6.3-8.2) g/dL Albumin (3.5-5.0) g/dL 07/17/24 07/18/24 07/18/24 Range/Units 20:06 05:59 05:59 WBC 16.9 H (3.8-10.6) k/uL RBC 3.62 L (3.80-5.40) m/uL Hgb 11.1 L (11.4-16.0) gm/dL Neutrophils # 14.0 H (1.3-7.7) k/uL Sodium 127 L (137-145) mmol/L Chloride 97 L (98-107) mmol/L BUN 60 H (7-17) mg/dL Creatinine 2.10 H (0.52-1.04) mg/dL Glucose 313 H (74-99) mg/dL POC Glucose (mg/dL) 516 H* (70-110) mg/dL AST 13 L (14-36) U/L Alkaline Phosphatase 175 H (38-126) U/L Total Protein 5.5 L (6.3-8.2) g/dL Albumin 3.1 L (3.5-5.0) g/dL 07/18/24 Range/Units 06:33 WBC (3.8-10.6) k/uL RBC (3.80-5.40) m/uL Hgb (11.4-16.0) gm/dL Neutrophils # (1.3-7.7) k/uL Sodium (137-145) mmol/L Chloride (98-107) mmol/L BUN (7-17) mg/dL Creatinine (0.52-1.04) mg/dL Glucose (74-99) mg/dL POC Glucose (mg/dL) 306 H (70-110) mg/dL AST (14-36) U/L Alkaline Phosphatase (38-126) U/L Total Protein (6.3-8.2) g/dL Albumin (3.5-5.0) g/dL Microbiology - Last 24 Hours (Table) 07/14/24 10:53 Blood Culture - Preliminary Blood Assessment and Plan Assessment: Chest pain in a patient with a known history of coronary artery disease. Acute hypoxemic respiratory failure secondary to possible COPD exacerbation versus early pneumonia, LLL. Right lower extremity cellulitis. Febrile illness secondary to above. Leukocytosis secondary to above. Chronic and ongoing tobacco dependence. Coronary artery disease with multiple stent placements. Chronic kidney disease. History of double TIA/CVAs with residual right sided weakness. Diabetes mellitus. History of anxiety/depression. Fibromyalgia. Hypertension. Hyperlipidemia. Obstructive sleep apnea utilizing CPAP. History of uterine/ovarian cancer. Factor V blood disorder. Plan: Plan dated July 15, 2024. The patient is seen today in room 371. Her chest x-ray reveals a left lower lobe infiltrate. The patient continues on Zosyn. Her procalcitonin level was elevated 0.78. The patient is currently on nasal cannula high flow, 8 L. We will continue to follow make recommendations along the way. Labs, x-rays, and all medications are reviewed. Prognosis is certainly guarded. Plan dated July 16, 2024. The patient has been weaned down from 8 L high flow oxygen to 5 L. Saturations are in the low to mid 90s. The patient continues on Zosyn. The procalcitonin level was elevated. Labs, x-rays, and medications are reviewed. Prognosis is guarded. We will continue to follow the patient, and make recommendations along the way. Plan dated July 17, 2024. The patient is again seen in room 371. Her nasal O2 has been weaned down from 8 L to 5. Her saturations are excellent. She is in no acute distress. She is nearly laying flat in bed. Labs, x-rays, medications are reviewed. The patient continues on Zosyn. She is being followed by infectious diseases. No additional recommendations are made. The patient's overall prognosis remains guarded. We will continue to follow the patient, and make recommendations along the way. Plan dated July 18, 2024. The patient is seen in room 371. Her saturations are excellent and the oxygen can likely be titrated down. She continues on Zosyn. She is getting saline at 10 cc an hour. We will continue to follow. Labs, x-rays, and medications are reviewed. Clinically she is doing well. She feels much improved. She would like to be discharged if possible. Will leave that up to the primary service. Time with Patient: Less than 30
[2024-07-18 11:34] LABS: Glucose,Whole Blood 242 mg/dL (70-110)
[2024-07-18 12:05] VITALS: BP 151/80; TEMP 98.2
--- NOTE | 2024-07-18 12:40 | P.DS ---
Providers Date of admission: 07/13/24 15:13 Expected date of discharge: 07/18/24 Attending physician: Evin Sanchez Consults: 07/14/24 08:33 Consult Physician Routine Consulting Provider: Rolo Pickens Consult Reason/Comments: febrile, leukocytosis Do you want consulting provider notified?: Yes 07/14/24 09:25 Consult Physician Routine Consulting Provider: Jose Figueredo Consult Reason/Comments: resp failure, critical care consult Do you want consulting provider notified?: Yes 07/15/24 09:30 Consult Physician Routine Consulting Provider: Marlyn Kirkland Consult Reason/Comments: SAIRA Do you want consulting provider notified?: Yes Primary care physician: Dagmar Hennessy Hospital Course: Diagnosis on discharge: 1. Chest pain with elevated troponin. Cardiology services following acute coronary event has been ruled out 2. Febrile and leukocytosis secondary to possible pneumonia. RSV COVID and influenza negative chest x-ray negative. Blood culture and urine cultures ordered 3. Right lower extremity cellulitis 4. Respiratory failure requiring 8 L nasal cannula. Pulmonary services consulted 5. History of coronary artery disease with previous stent placement x 5 6. History of CVA 7. History of insulin-dependent diabetes mellitus maintained on home insulin pump this was DC'd during hospitalization sliding scale coverage added 8. History of hyperlipidemia 9. History of chronic kidney disease 10. Ongoing nicotine dependence 11. Acute kidney injury. Nephrology services consulted Hospital course: Leticia huff a 53-year-old female patient well-known to my services who presented with concerns of chest pain that started last night and increased shortness of breath. Patient has an extensive medical history including previous stent placement x 5, CVA, diabetes mellitus and ongoing nicotine dependence. Chest x-ray completed showing cardiomegaly. EKG completed showing right bundle branch block. Patient negative for influenza, RSV and COVID-19. Troponin elevated at 0.246. White blood cell 14.7, sodium 134, creatinine 1.59 and bun 20. Patient was started on heparin drip due to elevated troponin. Patient also noted to have elevated temp at 100.1. Patient is also lethargic will wake up and answer questions but quickly fall back to sleep right lower extremity warm and redness noted concerns for cellulitis. At this time cardiology services have been consulted due to concerns of infection will order blood culture and UA. Patient started on IV Kefzol for lower extremity cellulitis. Infectious disease services consulted. Patient also requiring 8 L high flow nasal cannula. Will consult pulmonary services. Current vital signs temp 99.1, heart rate 89, respiratory rate 23, blood pressure 108/72 and a pulse ox of 96% on high flow 8 L patient denies any chest pain. Patient does report some shortness of breath. Patient denies any nausea vomiting or diarrhea. Patient denies any urinary burning or frequency On 07/15/2024 patient is alert and oriented x 3. Mentation significantly improved from yesterday. Two-view chest x-ray was completed showing left lower lobe infiltrate. Antibiotics adjusted to Zosyn per ID. Heparin drip DC'd per cardiology acute coronary event has been ruled out. Patient also started on p.o. prednisone per pulmonary. White blood cell improving to 14.3. Creatinine increasing to 2.44 bun 37 will consult nephrology services. Patient was started on IV Lasix per cardiology. At this time patient denies chest pain or shortness of breath. Patient denies nausea vomiting or diarrhea. Patient denies any urinary burning or frequency. Current vital signs temp 98.5, heart rate 71, respiratory rate 16, blood pressure 106/65 with a pulse ox of 93% on 8 L On 07/16/2024 patient was seen and examined on the medical floor she is alert and oriented x 3 in no apparent distress there is no fever or chills she is still complaining of cough no chest pain she has shortness of breath with activity no nausea or vomiting no abdominal pain no diarrhea no urinary symptoms. Patient is maintained on steroids, her glucose is elevated, will add Levemir 15 units at bedtime and continue to monitor closely. On 07/17/2024 patient is alert and oriented x 3. Patient still having elevated blood sugars Levemir will be increased to 25 units. Patient was placed on prednisone. Patient remains on 5 L nasal cannula. Patient denies chest pain or shortness of breath. Patient denies nausea vomiting or diarrhea. Patient denies any urinary burning or frequency On 07/18/2024 patient was seen and examined on the medical floor she is alert and oriented x 3 in no apparent distress there is no fever or chills no headache or dizziness, no chest pain she has occasional cough and shortness of breath with activity no nausea or vomiting no abdominal pain no diarrhea and no urinary symptoms. At this time patient has improved significantly, will discontinue IV antibiotic and start a course of oral Augmentin, patient can be discharged to home today follow-up with primary care within 1 week, and follow-up with cardiology in 1 to 2 weeks. Plan - Discharge Summary Discharge Rx Participant: No New Discharge Prescriptions: New predniSONE 10 mg PO DIRECTED 8 Days #12 tab Cholecalciferol [Vitamin D3 (125 Mcg = 5000 Iu)] 125 mcg PO DAILY 30 Days #30 tab Amoxic-Pot Clav 500-125 mg [Augmentin 500-125 mg] 1 tab PO Q12HR 7 Days #14 tab carvediloL [Coreg*] 25 mg PO BID-W/MEALS 30 Days #60 tab Continue Aspirin [Adult Low Dose Aspirin EC] 81 mg PO HS DULoxetine HCL [Cymbalta] 60 mg PO DAILY Isosorbide Mononitrate ER [Imdur] 60 mg PO DAILY Famotidine 20 mg PO BID PRN PRN Reason: acid reflux Nitroglycerin Sl Tabs [Nitrostat] 0.4 mg SL Q5M PRN PRN Reason: Chest Pain Pregabalin [Lyrica] 150 mg PO BID INSULIN LISPRO (For Pump) [humaLOG (For Pump)] 0.01 units SQ-PUMP CONTINUOUS Atorvastatin [Lipitor] 40 mg PO HS ALPRAZolam [Xanax] 1 mg PO TID PRN PRN Reason: Anxiety Ondansetron Odt [Zofran ODT] 8 mg PO Q12HR Empagliflozin [Jardiance] 10 mg PO DAILY Fenofibrate [Lofibra] 160 mg PO DAILY Budesonide/Formoterol Fumarate [Symbicort 160-4.5 Mcg Inhaler] 2 puff INHALATION RT-BID PRN PRN Reason: COPD Magnesium Oxide [Mag-Ox] 400 mg PO BID Cinacalcet [Sensipar] 30 mg PO MOTUWETHFR ARIPiprazole [Abilify] 10 mg PO HS Clopidogrel [Plavix] 75 mg PO DAILY 30 Days #30 tab Discontinued Losartan [Cozaar] 25 mg PO DAILY 30 Days #30 tab Metoprolol Tartrate [Lopressor] 25 mg PO TID 30 Days #90 tab hydrALAZINE HCL [Apresoline] 50 mg PO BID 30 Days #60 tab Sodium Bicarbonate Tab 650 mg PO BID 30 Days #60 tab Discharge Medication List Aspirin [Adult Low Dose Aspirin EC] 81 mg PO HS 11/26/17 [History] DULoxetine HCL [Cymbalta] 60 mg PO DAILY 08/25/18 [History] Isosorbide Mononitrate ER [Imdur] 60 mg PO DAILY 09/08/18 [History] Empagliflozin [Jardiance] 10 mg PO DAILY 10/06/22 [History] Famotidine 20 mg PO BID PRN 10/06/22 [History] Nitroglycerin Sl Tabs [Nitrostat] 0.4 mg SL Q5M PRN 10/06/22 [History] Fenofibrate [Lofibra] 160 mg PO DAILY 01/25/23 [History] Pregabalin [Lyrica] 150 mg PO BID 02/05/23 [History] Budesonide/Formoterol Fumarate [Symbicort 160-4.5 Mcg Inhaler] 2 puff INHALATION RT-BID PRN 07/17/23 [History] INSULIN LISPRO (For Pump) [humaLOG (For Pump)] 0.01 units SQ-PUMP CONTINUOUS 07/17/23 [History] Atorvastatin [Lipitor] 40 mg PO HS 12/11/23 [History] Magnesium Oxide [Mag-Ox] 400 mg PO BID 03/10/24 [History] ALPRAZolam [Xanax] 1 mg PO TID PRN 03/28/24 [History] Cinacalcet [Sensipar] 30 mg PO MOTUWETHFR 03/28/24 [History] ARIPiprazole [Abilify] 10 mg PO HS 05/04/24 [History] Ondansetron Odt [Zofran ODT] 8 mg PO Q12HR 05/04/24 [History] Clopidogrel [Plavix] 75 mg PO DAILY 30 Days #30 tab 05/13/24 [Rx] Amoxic-Pot Clav 500-125 mg [Augmentin 500-125 mg] 1 tab PO Q12HR 7 Days #14 tab 07/18/24 [Rx] Cholecalciferol [Vitamin D3 (125 Mcg = 5000 Iu)] 125 mcg PO DAILY 30 Days #30 tab 07/18/24 [Rx] carvediloL [Coreg*] 25 mg PO BID-W/MEALS 30 Days #60 tab 07/18/24 [Rx] predniSONE 10 mg PO DIRECTED 8 Days #12 tab 07/18/24 [Rx] Follow up Appointment(s)/Referral(s): Dagmar Hennessy MD [Primary Care Provider] - 1-2 days
[2024-07-18 12:48] VITALS: PULSE 68; RESP 18
--- NOTE | 2024-07-18 13:57 | P.PN ---
Subjective Progress Note Date: 07/18/24 Patient is seen for follow-up for acute kidney injury and chronic kidney disease. Diuretics and angiotensin receptor blockers on hold. Patient is being treated for right lower extremity cellulitis and pneumonia. No significant complaints today. patient is awake, comfortable, no acute distress. 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 Objective - Vital Signs Vital signs: Vital Signs Temp 97.6 F 07/18/24 08:21 Pulse 64 07/18/24 08:22 Resp 17 07/18/24 08:24 BP 188/85 07/18/24 08:21 Pulse Ox 97 07/18/24 08:24 FiO2 50 07/14/24 04:09 Intake & Output 07/17/24 07/18/24 07/18/24 18:59 06:59 18:59 Intake Total 860 20 128 Output Total 1650 700 Balance -790 -680 128 Weight 111.5 kg 103.7 kg Intake: IV 20 20 10 Invasive Line 3 20 20 10 Oral 840 118 Output: Gastric Drainage 0 Urine 1650 700 Stool 0 Urine/Stool Mix 0 Emesis 0 Oral Regurgitation 0 Other 0 Other: Voiding Method External Catheter External Catheter External Catheter # Voids 0 2 # Bowel Movements 0 - Labs CBC & Chem 7: 07/18/24 05:59 07/18/24 05:59 Labs: Abnormal Lab Results - Last 24 Hours (Table) 07/17/24 07/17/24 07/17/24 Range/Units 11:40 16:02 16:03 WBC (3.8-10.6) k/uL RBC (3.80-5.40) m/uL Hgb (11.4-16.0) gm/dL Neutrophils # (1.3-7.7) k/uL Sodium (137-145) mmol/L Chloride (98-107) mmol/L BUN (7-17) mg/dL Creatinine (0.52-1.04) mg/dL Glucose (74-99) mg/dL POC Glucose (mg/dL) 366 H 533 H* 522 H* (70-110) mg/dL AST (14-36) U/L Alkaline Phosphatase (38-126) U/L Total Protein (6.3-8.2) g/dL Albumin (3.5-5.0) g/dL 07/17/24 07/18/24 07/18/24 Range/Units 20:06 05:59 05:59 WBC 16.9 H (3.8-10.6) k/uL RBC 3.62 L (3.80-5.40) m/uL Hgb 11.1 L (11.4-16.0) gm/dL Neutrophils # 14.0 H (1.3-7.7) k/uL Sodium 127 L (137-145) mmol/L Chloride 97 L (98-107) mmol/L BUN 60 H (7-17) mg/dL Creatinine 2.10 H (0.52-1.04) mg/dL Glucose 313 H (74-99) mg/dL POC Glucose (mg/dL) 516 H* (70-110) mg/dL AST 13 L (14-36) U/L Alkaline Phosphatase 175 H (38-126) U/L Total Protein 5.5 L (6.3-8.2) g/dL Albumin 3.1 L (3.5-5.0) g/dL 07/18/24 Range/Units 06:33 WBC (3.8-10.6) k/uL RBC (3.80-5.40) m/uL Hgb (11.4-16.0) gm/dL Neutrophils # (1.3-7.7) k/uL Sodium (137-145) mmol/L Chloride (98-107) mmol/L BUN (7-17) mg/dL Creatinine (0.52-1.04) mg/dL Glucose (74-99) mg/dL POC Glucose (mg/dL) 306 H (70-110) mg/dL AST (14-36) U/L Alkaline Phosphatase (38-126) U/L Total Protein (6.3-8.2) g/dL Albumin (3.5-5.0) g/dL Microbiology - Last 24 Hours (Table) 07/14/24 10:53 Blood Culture - Preliminary Blood Assessment and Plan Assessment: 1. Acute kidney injury, ATN secondary to underlying infection and hypotension. UA is quite benign. Diuretics and angiotensin receptor blockers on hold. 2. left lower lung pneumonia 3. Right lower extremity cellulitis 4. CKD NKF stage IIb-IV with baseline creatinine 1.6-2.0 mg/dL secondary to biopsy-proven diabetic kidney disease 5. History of CVA with residual right sided weakness 6. History of hypercalcemia with initiation off Sensipar as PTH was 154. Axel level was 66. Calcium is currently low therefore Sensipar will be discontinued. 7. Severe nutritional vitamin D deficiency with 25-hydroxy vitamin D of less than 5 8. Hyponatremia, suspect hypovolemia 9. HTN with CKD uncontrolled. Plan: Continue off of Sensipar. Control blood sugars Hold ARB, will add amlodipine. May continue with Farxiga
[2024-07-18] MEDS ORDERED: INSULIN DETEMIR (LEVEMIR) 100 UNIT/ML SYR SQ SCH (21:00)
[2024-07-19] MEDS ORDERED: predniSONE 10 MG TAB PO SCH (09:00)
--- NOTE | 2024-08-02 22:30 | CDI ---
Documentation Clarification Form Date: 08/02/2024 10:19:29 PM From: Katia Hyde Phone: Admit Date: 07/13/2024 03:13:00 PM Patient Name: Leticia Langley Visit Number: [id number] Discharge Date: 07/18/2024 01:16:00 PM ATTENTION: The Clinical Documentation Specialists (CDI) and [facility] Coding Staff appreciate your assistance in clarifying documentation. Please respond to the clarification below the line at the bottom and electronically sign. The CDI & [facility] Coding staff will review the response and follow-up if needed. Please note: Queries are made part of the Legal Health Record. If you have any questions, please contact the author of this message via ITS. Doctor/Provider: Marlyn Kirkland CKDstage IIb-Naomy documented per Consult 07/16 and Progress Notes. Clarification regarding the stage of CKD is requested. History/Risk Factors: 53yo F, ATN on CKD, sepsis, PNA, AECOPD, RLW cellulitis, DMII, Hx CVA w RT weakness, hypercalcemia, severe nutritionalvitamin D Baseline creatinine 1.6-2.0 mg/dL Clinical Indicators: BUN: 07/13 20 07/15 37 07/16 43 07/18 60 CR: 07/14 1.59 07/15 2.44 07/16 2.36 07/18 2.10 GFR: 37-43 Treatment: add gentle IV hydration if renal function not improved. Continue off of Sensipar. Control blood sugars. Replacevitamin D. Repeat labs in a.m. May continue with Farxiga. Please clarify the stage of the CKD, if known: [ x] CKD Stage 3b [ ] CKD Stage 4 [ ] Other, please specify [ ] Unable to determine Reference: National Kid[employer] Foundation Stage 1 eGFR = 90 and kidney damage for =3 months Stage 2 eGFR 60-89 and kidney damage for =3 months Stage 3a eGFR 45-59 and kidney damage for =3 months Stage 3b eGFR 30-44 and kidney damage for =3 months Stage 4 eGFR 15-29 r and kidney damage for =3 months Stage 5 eGFR <15 and kidney damage for =3 months (Template last revised: October 2023) MTDD
--- NOTE | 2024-08-02 22:41 | CDI ---
Documentation Clarification Form Date: 08/02/2024 10:32:03 PM From: Katia Hyde Phone: Admit Date: 07/13/2024 03:13:00 PM Patient Name: Leticia Langley Visit Number: [id number] Discharge Date: 07/18/2024 01:16:00 PM ATTENTION: The Clinical Documentation Specialists (CDI) and [facility] Coding Staff appreciate your assistance in clarifying documentation. Please respond to the clarification below the line at the bottom and electronically sign. The CDI & [facility] Coding staff will review the response and follow-up if needed. Please note: Queries are made part of the Legal Health Record. If you have any questions, please contact the author of this message via ITS. Doctor/Provider: Evin Sanchez Cellulitis is documented per H&P and Progress Notes. Additional clarification regarding the type of cellulitis is requested. History/risk factors: 53yo F, sepsis, AHRF, AECOPD, blood disorder, CAD, DMII w CKD, Hx IL, Hx DVT, HLD, HTN, Hx CVA w RT weakness, smoker Clinical Indicators: RLE warm and redness. Culture data is thus far negative. Treatment: Patient started on IV Kefzol for lower extremitycellulitis. Please clarify the type of cellulitis, if known: [ xxxx ] Diabetic cellulitis [ ] Bacterial cellulitis (please specify bacteria): [ ] Unspecified cellulitis [ ] Other, please specify: [ ] Unable to determine (Template Last Revised: October 2022) MTDD
== END 2024-07-18 13:16 | disposition home health service (06) | DRG 720 ==
LOC: EC 13:31 → 3SCARD 15:13
PROVIDERS: ADMIT Internal Medicine; ATTEND Internal Medicine
DX: A41.9 Sepsis, unspecified organism (principal); J96.01 Acute respiratory failure with hypoxia; N17.0 Acute kidney failure with tubular necrosis; I69.351 Hemiplegia and hemiparesis following cerebral infarction affecting right dominant side; J44.0 Chronic obstructive pulmonary disease with (acute) lower respiratory infection; J44.1 Chronic obstructive pulmonary disease with (acute) exacerbation; E11.22 Type 2 diabetes mellitus with diabetic chronic kidney disease; E11.42 Type 2 diabetes mellitus with diabetic polyneuropathy; E11.51 Type 2 diabetes mellitus with diabetic peripheral angiopathy without gangrene; E11.69 Type 2 diabetes mellitus with other specified complication; F31.9 Bipolar disorder, unspecified; E11.65 Type 2 diabetes mellitus with hyperglycemia; Z79.4 Long term (current) use of insulin; N18.32 Chronic kidney disease, stage 3b; J18.9 Pneumonia, unspecified organism; E87.1 Hypo-osmolality and hyponatremia; I13.10 Hypertensive heart and chronic kidney disease without heart failure, with stage 1 through stage 4 chronic kidney disease, or unspecified chronic kidney disease; Z95.820 Peripheral vascular angioplasty status with implants and grafts; M79.7 Fibromyalgia; T38.0X5A Adverse effect of glucocorticoids and synthetic analogues, initial encounter; I25.10 Atherosclerotic heart disease of native coronary artery without angina pectoris; L03.115 Cellulitis of right lower limb; G47.33 Obstructive sleep apnea (adult) (pediatric); F17.210 Nicotine dependence, cigarettes, uncomplicated; E86.1 Hypovolemia; E55.9 Vitamin D deficiency, unspecified; F41.9 Anxiety disorder, unspecified; E78.5 Hyperlipidemia, unspecified; Z96.41 Presence of insulin pump (external) (internal); Z79.02 Long term (current) use of antithrombotics/antiplatelets; Z79.84 Long term (current) use of oral hypoglycemic drugs; Z79.82 Long term (current) use of aspirin; Z79.899 Other long term (current) drug therapy; I25.2 Old myocardial infarction; Z85.43 Personal history of malignant neoplasm of ovary; Z79.51 Long term (current) use of inhaled steroids; Z95.5 Presence of coronary angioplasty implant and graft; Z86.718 Personal history of other venous thrombosis and embolism; Z11.52 Encounter for screening for COVID-19
CPT/HCPCS: 36415; 71046; 80053; 80061; 81001; 82306; 83036; 83605; 83735; 83880; 84145; 84484; 85025; 85610; 85730; 87040; 87086; 87636; 93005; 94640; 94660; 94760; 96365; 96366; 96368; 96375; 99291

== ENCOUNTER 2024-07-28 17:18 | Observation (INO) | payer OTHER ==
--- NOTE | 2024-07-28 17:40 | ED ---
General Adult HPI - General Chief complaint: Chest Pain Stated complaint: chest pain Time Seen by Provider: 07/28/24 17:22 Source: patient, EMS, RN notes reviewed Mode of arrival: EMS Limitations: no limitations - History of Present Illness Initial comments: Patient is a 53-year-old female present to the emergency department with concerns with chest discomfort. Onset of symptoms was around 12 hours ago. Discomfort feels like tightness. Patient does have associated sweating. No dyspnea. Patient does feel a bit nauseated. Patient was in the hospital with generalized weakness a week ago and diagnosed with a heart attack. Patient states she did not have the symptoms at that time. Discomfort is rated 6/10. Discomfort at its worst was 8/10. - Related Data Home Medications Medication Instructions Recorded Confirmed Aspirin [Adult Low Dose Aspirin EC] 81 mg PO HS 11/26/17 07/13/24 DULoxetine HCL [Cymbalta] 60 mg PO DAILY 08/25/18 07/13/24 Isosorbide Mononitrate ER [Imdur] 60 mg PO DAILY 09/08/18 07/13/24 Empagliflozin [Jardiance] 10 mg PO DAILY 10/06/22 07/13/24 Famotidine 20 mg PO BID PRN 10/06/22 07/13/24 Nitroglycerin Sl Tabs [Nitrostat] 0.4 mg SL Q5M PRN 10/06/22 07/13/24 Fenofibrate [Lofibra] 160 mg PO DAILY 01/25/23 07/13/24 Pregabalin [Lyrica] 150 mg PO BID 02/05/23 07/13/24 Budesonide/Formoterol Fumarate 2 puff INHALATION RT-BID PRN 07/17/23 07/13/24 [Symbicort 160-4.5 Mcg Inhaler] INSULIN LISPRO (For Pump) [humaLOG 0.01 units SQ-PUMP CONTINUOUS 07/17/23 07/13/24 (For Pump)] Atorvastatin [Lipitor] 40 mg PO HS 12/11/23 07/13/24 Magnesium Oxide [Mag-Ox] 400 mg PO BID 03/10/24 07/13/24 ALPRAZolam [Xanax] 1 mg PO TID PRN 03/28/24 07/13/24 Cinacalcet [Sensipar] 30 mg PO MOTUWETHFR 03/28/24 07/13/24 ARIPiprazole [Abilify] 10 mg PO HS 05/04/24 07/13/24 Ondansetron Odt [Zofran ODT] 8 mg PO Q12HR 05/04/24 07/13/24 Previous Rx's Medication Instructions Recorded Clopidogrel [Plavix] 75 mg PO DAILY 30 Days #30 tab 05/13/24 Amoxic-Pot Clav 500-125 mg 1 tab PO Q12HR 7 Days #14 tab 07/18/24 [Augmentin 500-125 mg] Cholecalciferol [Vitamin D3 (125 125 mcg PO DAILY 30 Days #30 tab 07/18/24 Mcg = 5000 Iu)] carvediloL [Coreg*] 25 mg PO BID-W/MEALS 30 Days #60 07/18/24 tab predniSONE 10 mg PO DIRECTED 8 Days #12 tab 07/18/24 Allergies Allergy/AdvReac Type Severity Reaction Status Date / Time Fish Containing Products Allergy Anaphylaxis Verified 07/13/24 15:17 Iodinated Contrast Media Allergy Anaphylaxis Verified 07/13/24 15:17 [Iodinated Contrast Media - IV Dye] Sulfa (Sulfonamide Allergy Anaphylaxis Verified 07/13/24 15:17 Antibiotics) sulfamethoxazole Allergy Anaphylaxis Verified 07/13/24 15:17 [From Septra] tree nut [Nut] Allergy Anaphylaxis Verified 07/13/24 15:17 trimethoprim [From Junra] Allergy Anaphylaxis Verified 07/13/24 15:17 Review of Systems ROS Statement: Those systems with pertinent positive or pertinent negative responses have been documented in the HPI. ROS Other: All systems not noted in ROS Statement are negative. Constitutional: Denies: fever Eyes: Denies: eye pain ENT: Denies: ear pain Respiratory: Denies: cough Cardiovascular: Reports: as per HPI, chest pain, palpitations Gastrointestinal: Reports: nausea Musculoskeletal: Denies: back pain Past Medical History Past Medical History: Blood Disorder, Coronary Artery Disease (CAD), Cancer, Chest Pain / Angina, CVA/TIA, Diabetes Mellitus, Deep Vein Thrombosis (DVT), Fibromyalgia, GERD/Reflux, Hyperlipidemia, Hypertension, Myocardial Infarction (GA), Musculoskeletal Disorder, Neurologic Disorder, Renal Disease, Sleep Apnea/CPAP/BIPAP, Vascular Disorder Additional Past Medical History / Comment(s): IDDM type II, uterine/cervical and ovarian cancer, restless leg, Factor V blood disorder, DVT R leg, 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 HAD GA 10/27/23 Last Myocardial Infarction Date:: LAST ONE 10/27/23 History of Any Multi-Drug Resistant Organisms: None Reported Past Surgical History: Section, Cholecystectomy, Heart Catheterization With Stent, Hysterectomy, Tubal Ligation, Uterine Ablation Additional Past Surgical History / Comment(s): vein stripping right leg, radio frequency ablation of right back-02/22/2015, four stents on 04/03/16 and one on march 05, ovaries removed, colonscopy- polyp removal Past Anesthesia/Blood Transfusion Reactions: Motion Sickness Additional Past Anesthesia/Blood Transfusion Reaction / Comment(s): mild claustrophobia Date of Last Stent Placement:: 04/03/16 Past Psychological History: Anxiety, Depression Smoking Status: Current every day smoker Past Alcohol Use History: None Reported Past Drug Use History: None Reported - Past Family History Father Family Medical History: Congestive Heart Failure (CHF), Coronary Artery Disease (CAD), Diabetes Mellitus Mother Family Medical History: Cancer, COPD, Hypertension, Respiratory Disorder Additional Family Medical History / Comment(s): emphysema, colon CA General Exam Limitations: no limitations General appearance: alert, in no apparent distress Head exam: Present: normocephalic Eye exam: Present: normal appearance Neck exam: Present: normal inspection Respiratory exam: Present: normal lung sounds bilaterally Cardiovascular Exam: Present: regular rate, normal rhythm, normal heart sounds Expanded Peripheral pulses: 2+: Radial (R), Radial (L), Dorsalis Pedis (R), Dorsalis Pedis (L) GI/Abdominal exam: Present: soft. Absent: tenderness Extremities exam: Present: pedal edema (Patient states chronic). Absent: calf tenderness Back exam: Present: normal inspection Neurological exam: Present: alert Psychiatric exam: Present: normal affect, normal mood Skin exam: Present: normal color Course Vital Signs 07/28/24 07/28/24 07/28/24 17:23 17:25 19:28 Temperature 98.6 F 98.3 F Pulse Rate 85 82 Pulse Rate [ 65 Patient Coordinator ] Respiratory 18 20 Rate Blood Pressure 167/75 143/82 O2 Sat by Pulse 95 94 L Oximetry EKG Findings - EKG Results: EKG: interpreted by ERMD ([place]. Right bundle branch block. LVH. Nonspecific ST-T), sinus rhythm Medical Decision Making - Medical Decision Making MDM back was pt. sent in by a medical professional or institution (, PA, MEDICAL ESTHETICIAN, urgent care, hospital, or penitentiary...) When possible be specific @ -No Did you speak to anyone other than the patient for history (EMS, parent, family, police, friend...)? What history was obtained from this source @ -No Did you review nursing and triage notes (agree or disagree)? Why? @ -I reviewed and agree with nursing and triage notes Were old charts reviewed (outside hosp., previous admission, EMS record, old EKG, old radiological studies, urgent care reports/EKG's, penitentiary records)? Report findings @ -Previous admission reviewed including troponin which is increased today Differential Diagnosis (chest pain, altered mental status, abdominal pain women, abdominal pain men, vaginal bleeding, weakness, fever, dyspnea, syncope, hea dache, dizziness, GI bleed, back pain, seizure, CVA, palpatations, mental health, musculoskeletal)? @ -Differential Chest Pain: Stable Angina, Unstable Angina, STEMI, NSTEMI Aortic Dissection, Pneumothorax, Musculoskeletal, Esophageal Spasm GERD, Cholecystitis, Pancreatitis, Zoster, this is not meant to be an all-inclusive list. EKG interpreted by me (3pts min.). @ -As above X-rays interpreted by me (1pt min.). @ -Chest x-ray shows no acute process CT interpreted by me (1pt min.). @ -None done U/S interpreted by me (1pt. min.). @ -None done What testing was considered but not performed or refused? (CT, X-rays, U/S, labs)? Why? @ -None What meds were considered but not given or refused? Why? @ -None Did you discuss the management of the patient with other professionals (professionals i.e. , PA, MEDICAL ESTHETICIAN, lab, RT, psych nurse, director of social media marketing, coding specialist home health, teacher, sheriff's officer, caser shoe parts)? Give summary @ -Dr. Sanchez to admit for Dr. Lantigua Was smoking cessation discussed for >3mins.? @ -No Was critical care preformed (if so, how long)? @ -31 minutes critical care Were there social determinants of health that impacted care today? How? (Homelessness, low income, unemployed, alcoholism, drug addiction, transportation, low edu. Level, literacy, decrease access to med. care, half-way, rehab)? @ -No Was there de-escalation of care discussed even if they declined (Discuss DNR or withdrawal of care, Hospice)? DNR status @ -No What co-morbidities impacted this encounter? (DM, HTN, Smoking, COPD, CAD, Cancer, CVA, ARF, Chemo, Hep., AIDS, mental health diagnosis, sleep apnea, morbid obesity)? @ -None Was patient admitted / discharged? Hospital course, mention meds given and route , prescriptions, significant lab abnormalities, going to OR and other pertinent info. @ -Patient presents with chest discomfort. Troponin is increased from previous. Patient will be admitted with cardiac consult. Heparin was started Undiagnosed new problem with uncertain prognosis? @ -No Drug Therapy requiring intensive monitoring for toxicity (Heparin, Nitro, Insulin, Cardizem)? @ -Heparin drip Were any procedures done? @ -No Diagnosis/symptom? @ -Non-ST elevation myocardial infarct Acute, or Chronic, or Acute on Chronic? @ -Acute Uncomplicated (without systemic symptoms) or Complicated (systemic symptoms)? @ -Default Side effects of treatment? @ -No Exacerbation, Progression, or Severe Exacerbation? @ -No Poses a threat to life or bodily function? How? (Chest pain, USA, GA, pneumonia, PE, COPD, DKA, ARF, appy, cholecystitis, CVA, Diverticulitis, Homicidal, Suicidal, threat to staff... and all critical care pts) @ -Threat to cardiac function - Lab Data Result diagrams: 07/28/24 18:04 07/28/24 18:04 Lab Results 07/28/24 07/28/24 07/28/24 Range/Units 18:04 18:04 18:04 WBC 13.9 H (3.8-10.6) k/uL RBC 3.48 L (3.80-5.40) m/uL Hgb 11.0 L (11.4-16.0) gm/dL Hct 34.2 (34.0-46.0) % MCV 98.1 (80.0-100.0) fL MCH 31.6 (25.0-35.0) pg MCHC 32.2 (31.0-37.0) g/dL RDW 16.6 H (11.5-15.5) % Plt Count 267 (150-450) k/uL MPV 10.0 Neutrophils % 74 % Lymphocytes % 19 % Monocytes % 4 % Eosinophils % 1 % Basophils % 0 % Neutrophils # 10.3 H (1.3-7.7) k/uL Lymphocytes # 2.6 (1.0-4.8) k/uL Monocytes # 0.5 (0-1.0) k/uL Eosinophils # 0.2 (0-0.7) k/uL Basophils # 0.1 (0-0.2) k/uL Hypochromasia Slight Anisocytosis Slight Macrocytosis Slight PT 10.6 (10.0-12.5) sec INR 1.0 (<1.2) APTT 25.0 (22.0-30.0) sec Sodium 138 (137-145) mmol/L Potassium 4.1 (3.5-5.1) mmol/L Chloride 105 (98-107) mmol/L Carbon Dioxide 22 (22-30) mmol/L Anion Gap 11 mmol/L BUN 49 H (7-17) mg/dL Creatinine 2.06 H (0.52-1.04) mg/dL Est GFR (CKD-EPI)AfAm 31 (>60 ml/min/1.73 sqM) Est GFR (CKD-EPI)NonAf 27 (>60 ml/min/1.73 sqM) Glucose 206 H (74-99) mg/dL Calcium 8.8 (8.4-10.2) mg/dL Magnesium 1.6 (1.6-2.3) mg/dL Total Bilirubin 0.4 (0.2-1.3) mg/dL AST 22 (14-36) U/L ALT 21 (4-34) U/L Alkaline Phosphatase 173 H (38-126) U/L Troponin I (0.000-0.034) ng/mL Total Protein 5.4 L (6.3-8.2) g/dL Albumin 3.1 L (3.5-5.0) g/dL 07/28/24 Range/Units 18:04 WBC (3.8-10.6) k/uL RBC (3.80-5.40) m/uL Hgb (11.4-16.0) gm/dL Hct (34.0-46.0) % MCV (80.0-100.0) fL MCH (25.0-35.0) pg MCHC (31.0-37.0) g/dL RDW (11.5-15.5) % Plt Count (150-450) k/uL MPV Neutrophils % % Lymphocytes % % Monocytes % % Eosinophils % % Basophils % % Neutrophils # (1.3-7.7) k/uL Lymphocytes # (1.0-4.8) k/uL Monocytes # (0-1.0) k/uL Eosinophils # (0-0.7) k/uL Basophils # (0-0.2) k/uL Hypochromasia Anisocytosis Macrocytosis PT (10.0-12.5) sec INR (<1.2) APTT (22.0-30.0) sec Sodium (137-145) mmol/L Potassium (3.5-5.1) mmol/L Chloride (98-107) mmol/L Carbon Dioxide (22-30) mmol/L Anion Gap mmol/L BUN (7-17) mg/dL Creatinine (0.52-1.04) mg/dL Est GFR (CKD-EPI)AfAm (>60 ml/min/1.73 sqM) Est GFR (CKD-EPI)NonAf (>60 ml/min/1.73 sqM) Glucose (74-99) mg/dL Calcium (8.4-10.2) mg/dL Magnesium (1.6-2.3) mg/dL Total Bilirubin (0.2-1.3) mg/dL AST (14-36) U/L ALT (4-34) U/L Alkaline Phosphatase (38-126) U/L Troponin I 0.644 H* (0.000-0.034) ng/mL Total Protein (6.3-8.2) g/dL Albumin (3.5-5.0) g/dL Disposition Clinical Impression: Non-STEMI (non-ST elevated myocardial infarction) Disposition: ADMITTED IP TO THIS HOSP Is patient prescribed a controlled substance at d/c from ED?: No Referrals: Dagmar Hennessy MD [Primary Care Provider] - 1-2 days Time of Disposition: 19:41
[2024-07-28] MEDS: ASPIRIN 81 MG PO STA (17:45)
[2024-07-28] MEDS: NITROGLYCERIN SL TABS 0.4 MG TAB SUBLINGUAL STA ×3 (17:52)
[2024-07-28 18:20] LABS: Anisocytosis Slight; Basophils # (A) 0.1 k/uL (0-0.2); Basophils % (A) 0 %; Eosinophils # (A) 0.2 k/uL (0-0.7); Eosinophils % (A) 1 %; HCT 34.2 % (34.0-46.0); Hypochromasia Slight; Lymphocytes # (A) 2.6 k/uL (1.0-4.8); Lymphocytes % (A) 19 %; MCH 31.6 pg (25.0-35.0); MCHC 32.2 g/dL (31.0-37.0); MCV 98.1 fL (80.0-100.0); Macrocytosis Slight; Monocytes # (A) 0.5 k/uL (0-1.0); Monocytes % (A) 4 %; Neutrophils # (A) 10.3 k/uL (1.3-7.7); Neutrophils % (A) 74 %; Platelet Count 267 k/uL (150-450); RBC 3.48 m/uL (3.80-5.40); RDW 16.6 % (11.5-15.5); WBC 13.9 k/uL (3.8-10.6)
[2024-07-28 18:30] LABS: Prothrombin Time 10.6 sec (10.0-12.5)
[2024-07-28 18:47] LABS: ALT 21 U/L (4-34); AST 22 U/L (14-36); African American GFR (CKD) 31 (>60 ml/min/1.73 sqM); Albumin 3.1 g/dL (3.5-5.0); Alkaline Phosphatase 173 U/L (38-126); Anion Gap 11 mmol/L; Blood Urea Nitrogen 49 mg/dL (7-17); Calcium 8.8 mg/dL (8.4-10.2); Carbon Dioxide 22 mmol/L (22-30); Chloride 105 mmol/L (98-107); Glucose 206 mg/dL (74-99); Magnesium 1.6 mg/dL (1.6-2.3); Non-African American GFR(CKD) 27 (>60 ml/min/1.73 sqM); Potassium 4.1 mmol/L (3.5-5.1); Sodium 138 mmol/L (137-145); Total Bilirubin 0.4 mg/dL (0.2-1.3); Total Protein 5.4 g/dL (6.3-8.2)
--- NOTE | 2024-07-28 19:26 | XR ---
EXAMINATION TYPE: XR chest 2V DATE OF EXAM: 07/28/2024 COMPARISON: None at 1024 INDICATION: Chest pain TECHNIQUE: Frontal and lateral views of the chest are obtained. FINDINGS: The heart size is normal. The pulmonary vasculature is normal. The lungs are clear. IMPRESSION: 1. No acute pulmonary process. [facility], Workstation: [facility], 07/28/2024 7:24 PM
[2024-07-28] MEDS: HEPARIN SOD,PORK IN 0.45% NACL 25,000 UNIT in 0.45% NACL 1 250ML.BAG IV SCH (20:13)
[2024-07-28] MEDS: HEPARIN SODIUM 1,000 UN/ML (10ML VL) IV ONE (20:13)
[2024-07-29] MEDS: NITROGLYCERIN OINT 1 INCH/GM PACKET TOPICAL SCH (00:04)
[2024-07-29] MEDS: HEPARIN SODIUM 1,000 UN/ML (10ML VL) IVP ONE (03:34)
[2024-07-29 08:50] LABS: Platelet Count 255 k/uL (150-450)
[2024-07-29] MEDS: ASPIRIN 325 MG TAB PO SCH (09:33)
[2024-07-29] MEDS: HEPARIN SODIUM 1,000 UN/ML (10ML VL) IV PRN (09:53)
[2024-07-29 11:18] LABS: Chol/HDL Ratio 3.33 Ratio; LDL Cholesterol,Calculated 97.1 mg/dL (0.0-131.0)
--- NOTE | 2024-07-29 12:22 | P.CRDCN ---
History of Present Illness History of present illness: HISTORY OF PRESENT ILLNESS: This is a 53-year-old female with a past medical history significant for hypertension, hyperlipidemia, diabetes, CAD with previous multivessel stenting, chronic kidney disease and bipolar disorder. Patient follows in the office with Dr. Jasso. We have been asked to see the patient in consultation for elevated troponins. Patient examined at the bedside in the emergency room. Patient was recently hospitalized secondary to sepsis and right lower extremity cellulitis and pneumonia. Patient presented back to the hospital with a chief complaint of chest discomfort. She states that she woke up yesterday around 5:00 in the morning with chest pain. She states the pain was in the middle of her chest. She also reports feeling nauseated at that time. She states that she waited about 1 hour and then took a nitro which did not help her pain. She states that her whole body felt tingly. She states that the pain is improved with various stretching exercises. She continues to report mild chest discomfort but states it is improving from yesterday. Patient's blood pressures were found to be elevated with a systolic 2 and [id number]. She does report her blood pressures at home have been running on the higher side. DIAGNOSTICS: - EKG reveals sinus mechanism with right bundle branch block - Chest xray negative for acute process - Laboratory data: WBC 13.9. Hemoglobin 11.0. Platelet count 255. Sodium 138. Potassium 4.1. BUN 49. Creatinine 2.06. Troponin 0.644. 0.637. 0.639. - Current home cardiac medications include aspirin 81 mg daily, atorvastatin 40 mg at night, Plavix 75 mg daily, Jardiance 10 mg daily, Imdur 60 mg daily, carvedilol 25 mg twice a day - Most recent echocardiogram obtained in May 2024 revealing ejection fraction 55 to 60%, severe LVH, mild mitral regurgitation, mild tricuspid regurgitation, mildly dilated aortic root. - Cardiac catheterization history: November 2023 revealing 60% mid RCA stenosis involving the previously stented segment. Patent stents within the RCA, LAD, and diagonal with moderate nonobstructive disease involving the LAD and the ostial portion of the diagonal branch. Patient underwent IFR of mid RCA by Dr. Mckeon which came to be an abnormal at 0.84. Given long area of prior stenti ng with increased long-term risk of restenosis, consider medical therapy. If patient having consistent angina would recommend staged PCI of RCA REVIEW OF SYSTEMS: At the time of my exam: CONSTITUTIONAL: Denies fever or chills. HEENT: Denies blurred vision, vision changes, or eye pain. Denies hemoptysis CARDIOVASCULAR: Denies chest pain. Denies orthopnea. Denies PND. Denies palpitations RESPIRATORY: Denies shortness of breath. GASTROINTESTINAL: Denies abdominal pain. Denies nausea or vomiting. HEMATOLOGIC: Denies bleeding disorders. GENITOURINARY: Denies any blood in urine. SKIN: Denies pruitis. Denies rash. PHYSICAL EXAM: VITAL SIGNS: Reviewed. GENERAL: Well-developed in no acute distress. HEENT: Head is normocephalic. Pupils are equal, round. Sclerae anicteric. Mucous membranes of the mouth are moist. Neck supple. No JVD or thyromegaly LUNGS: Respirations even and unlabored. Lungs essentially clear to auscultation bilaterally. HEART: Regular rate and rhythm. S1 and S2 heard. ABDOMEN: Soft. Nondistended. Nontender. EXTREMITIES: Normal range of motion. No clubbing or cyanosis. Peripheral pulses intact. 2+ bilateral lower extremity edema NEUROLOGIC: Awake and alert. Oriented x 3. ASSESSMENT: Chest pain, appears musculoskeletal, with flat troponin pattern Hypertension, uncontrolled Acute on chronic heart failure with preserved EF Recent hospitalization for right lower extremity cellulitis pneumonia and sepsis Coronary artery disease with previous multivessel stenting Chronic kidney disease History of TIA Severe left ventricular hypertrophy Chronically elevated troponins, flat, secondary to poor renal clearance/LVH, no evidence of myocardial injury or ischemia Hyperlipidemia Recent admissions for syncope and TIA PLAN: No need to repeat echocardiogram as this was performed in May 2024 Continue IV heparin for 24 hours Resume home cardiac medications Add losartan 25 mg daily for optimal blood pressure control Begin IV Lasix 80 mg daily Daily weights, accurate intake and output, and monitoring of kidney function N.p.o. at midnight Patient to undergo Lexiscan stress test tomorrow Further recommendations pending patient course Nurse practitioner note has been reviewed by physician. Signing provider agrees with the documented findings, assessment, and plan of care documented by [employer] as a scribe. 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 HAD OH 10/27/23 Last Myocardial Infarction Date:: LAST ONE 10/27/23 History of Any Multi-Drug Resistant Organisms: None Reported Past Surgical History: Section, Cholecystectomy, Heart Catheterization With Stent, Hysterectomy, Tubal Ligation, Uterine Ablation Additional Past Surgical History / Comment(s): vein stripping right leg, radio frequency ablation of right back-02/22/2015, four stents on 04/03/16 and one on march 05, ovaries removed, colonscopy- polyp removal Past Anesthesia/Blood Transfusion Reactions: Motion Sickness Additional Past Anesthesia/Blood Transfusion Reaction / Comment(s): mild claustrophobia Date of Last Stent Placement:: 04/03/16 Past Psychological History: Anxiety, Depression Smoking Status: Current every day smoker Past Alcohol Use History: None Reported Past Drug Use History: None Reported - Past Family History Father Family Medical History: Congestive Heart Failure (CHF), Coronary Artery Disease (CAD), Diabetes Mellitus Mother Family Medical History: Cancer, COPD, Hypertension, Respiratory Disorder Additional Family Medical History / Comment(s): emphysema, colon CA Medications and Allergies Home Medications Medication Instructions Recorded Confirmed Type Aspirin [Adult Low Dose Aspirin EC] 81 mg PO HS 11/26/17 07/28/24 History DULoxetine HCL [Cymbalta] 60 mg PO DAILY 08/25/18 07/28/24 History Isosorbide Mononitrate ER [Imdur] 60 mg PO DAILY 09/08/18 07/28/24 History Empagliflozin [Jardiance] 10 mg PO DAILY 10/06/22 07/28/24 History Famotidine 20 mg PO BID PRN 10/06/22 07/28/24 History Nitroglycerin Sl Tabs [Nitrostat] 0.4 mg SL Q5M PRN 10/06/22 07/28/24 History Fenofibrate [Lofibra] 160 mg PO DAILY 01/25/23 07/28/24 History Pregabalin [Lyrica] 150 mg PO BID 02/05/23 07/28/24 History Budesonide/Formoterol Fumarate 2 puff INHALATION RT-BID PRN 07/17/23 07/28/24 History [Symbicort 160-4.5 Mcg Inhaler] INSULIN LISPRO (For Pump) [humaLOG 0.01 units SQ-PUMP CONTINUOUS 07/17/23 07/28/24 History (For Pump)] Atorvastatin [Lipitor] 40 mg PO HS 12/11/23 07/28/24 History Magnesium Oxide [Mag-Ox] 400 mg PO BID 03/10/24 07/28/24 History ALPRAZolam [Xanax] 1 mg PO TID PRN 03/28/24 07/28/24 History Cinacalcet [Sensipar] 30 mg PO MOTUWETHFR 03/28/24 07/28/24 History ARIPiprazole [Abilify] 10 mg PO HS 05/04/24 07/28/24 History Ondansetron Odt [Zofran ODT] 8 mg PO Q12HR 05/04/24 07/28/24 History Clopidogrel [Plavix] 75 mg PO DAILY 30 Days #30 tab 05/13/24 07/28/24 Rx Cholecalciferol [Vitamin D3 (125 125 mcg PO DAILY 30 Days #30 tab 07/18/24 07/28/24 Rx Mcg = 5000 Iu)] carvediloL [Coreg*] 25 mg PO BID-W/MEALS 30 Days #60 07/18/24 07/28/24 Rx tab Allergies Allergy/AdvReac Type Severity Reaction Status Date / Time Fish Containing Products Allergy Anaphylaxis Verified 07/28/24 19:40 Iodinated Contrast Media Allergy Anaphylaxis Verified 07/28/24 19:40 [Iodinated Contrast Media - IV Dye] Sulfa (Sulfonamide Allergy Anaphylaxis Verified 07/28/24 19:40 Antibiotics) sulfamethoxazole Allergy Anaphylaxis Verified 07/28/24 19:40 [From Septra] tree nut [Nut] Allergy Anaphylaxis Verified 07/28/24 19:40 trimethoprim [From Septra] Allergy Anaphylaxis Verified 07/28/24 19:40 Physical Exam Vitals: Vital Signs Temp Pulse Pulse Resp BP Pulse Ox 07/29/24 08:16 80 18 161/83 07/29/24 06:06 98.8 F 78 18 175/88 93 L 07/29/24 04:25 77 20 165/79 95 07/29/24 00:02 80 18 136/77 94 L 07/28/24 23:54 80 17 125/66 95 07/28/24 23:00 79 16 121/70 95 07/28/24 19:28 98.3 F 82 20 143/82 94 L 07/28/24 17:25 65 07/28/24 17:23 98.6 F 85 18 167/75 95 Intake and Output 07/28/24 07/29/24 07/29/24 22:59 06:59 14:59 Intake Total 73 Balance 73 Intake: Intake, IV Titration 73 Amount Heparin Sod,Pork in 0.45% 73 NaCl 25,000 unit In 0.45 % NaCl 1 250ml.bag @ 10. 599 UNITS/KG/HR 10 mls/hr IV .Q24H [facility] Rx#: [id number] Other: Weight 94.347 kg Results 07/29/24 08:27 07/28/24 18:04 Cardiac Enzymes 07/28/24 07/28/24 07/28/24 Range/Units 18:04 18:04 20:45 AST 22 (14-36) U/L Troponin I 0.644 H* 0.637 H* (0.000-0.034) ng/mL 07/29/24 Range/Units 02:05 AST (14-36) U/L Troponin I 0.639 H* (0.000-0.034) ng/mL Coagulation 07/28/24 07/29/24 Range/Units 18:04 02:05 PT 10.6 (10.0-12.5) sec APTT 25.0 31.9 H (22.0-30.0) sec CBC 07/28/24 07/29/24 Range/Units 18:04 08:27 WBC 13.9 H (3.8-10.6) k/uL RBC 3.48 L (3.80-5.40) m/uL Hgb 11.0 L (11.4-16.0) gm/dL Hct 34.2 (34.0-46.0) % Plt Count 267 255 (150-450) k/uL Comprehensive Metabolic Panel 07/28/24 Range/Units 18:04 Sodium 138 (137-145) mmol/L Potassium 4.1 (3.5-5.1) mmol/L Chloride 105 (98-107) mmol/L Carbon Dioxide 22 (22-30) mmol/L BUN 49 H (7-17) mg/dL Creatinine 2.06 H (0.52-1.04) mg/dL Glucose 206 H (74-99) mg/dL Calcium 8.8 (8.4-10.2) mg/dL AST 22 (14-36) U/L ALT 21 (4-34) U/L Alkaline Phosphatase 173 H (38-126) U/L Total Protein 5.4 L (6.3-8.2) g/dL Albumin 3.1 L (3.5-5.0) g/dL Current Medications Generic Name Dose Route Start Last Admin Trade Name Freq PRN Reason Stop Dose Admin Aspirin 325 mg 07/29/24 09:00 Aspirin 325 Mg Tab PO DAILY [facility] Heparin Sodium/Sodium Chloride 250 mls @ 10 mls/hr 07/28/24 19:45 07/29/24 03:31 25,000 unit/ Sodium Chloride IV 13.599 units/kg/hr .Q24H SARAHY 12.83 mls/hr Titration Protocol 10.599 UNITS/KG/HR Nitroglycerin 0.4 mg 07/28/24 19:42 Nitroglycerin Sl Tabs 0.4 Mg Tab SUBLINGUAL Q5M PRN Chest Pain Nitroglycerin 1 inch 07/29/24 00:00 07/29/24 05:16 Nitroglycerin Oint 1 Inch/Gm Packet TOPICAL 1 inch Q6HR SARAHY Administration Sodium Chloride 10 ml 07/28/24 21:00 07/28/24 20:16 Sodium Chloride 0.9% Flush 10 Ml Syringe IV 10 ml BID SARAHY Administration Intake and Output 07/28/24 07/29/24 07/29/24 22:59 06:59 14:59 Intake Total 73 Balance 73 Intake: Intake, IV Titration 73 Amount Heparin Sod,Pork in 0.45% 73 NaCl 25,000 unit In 0.45 % NaCl 1 250ml.bag @ 10. 599 UNITS/KG/HR 10 mls/hr IV .Q24H [facility] Rx#: [id number] Other: Weight 94.347 kg 07/29/24 08:27 07/28/24 18:04
[2024-07-29] MEDS ORDERED: FAMOTIDINE 20 MG TAB PO PRN (12:47)
[2024-07-29] MEDS ORDERED: DEXTROSE 50% SYRINGE 50 ML IVP PRN ×2 (12:48)
--- NOTE | 2024-07-29 12:50 | P.HPIM ---
History of Present Illness H&P Date: 07/29/24 Leticia Langley is a 53-year-old female patient who presented with complaints of chest pain. This patient is well-known to my services with frequent admissions for similar episodes. Patient has a significant past medical history of hypertension, hyperlipidemia, diabetes, coronary artery disease with previous multivessel vessel stenting, chronic kidney disease, bipolar disorder and stroke with left-sided deficit. Patient reports that pain started yesterday around 5:00 in the morning in the middle of her chest associated with nausea patient reports that she took another nitro with minimal improvement. Patient denies any recent illness. Patient reports she has been taking her medication as prescribed. Chest x-ray completed showing no acute pulmonary process. EKG completed showing right bundle branch block. Lab work revealing elevated troponin level 0.644, 0.637 and 0.639. Creatinine 2.06 and bun 49 this does appear patient's baseline. White blood cell 13.9. Patient recently admitted on 07/18/2024 white blood cell at that time 16.4 at this time patient will be admitted patient started on heparin drip and cardiology services consulted. Patient denies chest pain or shortness of breath. Patient denies nausea vomiting or diarrhea. Patient denies any urinary burning or frequency Review of Systems Please refer to HPI otherwise unremarkable Past Medical History Past Medical History: Blood Disorder, Coronary Artery Disease (CAD), Cancer, Chest Pain / Angina, CVA/TIA, Diabetes Mellitus, Deep Vein Thrombosis (DVT), Fibromyalgia, GERD/Reflux, Hyperlipidemia, Hypertension, Myocardial Infarction ([place]), Musculoskeletal Disorder, Neurologic Disorder, Renal Disease, Sleep Apnea/CPAP/BIPAP, Vascular Disorder Additional Past Medical History / Comment(s): IDDM type II, uterine/cervical and ovarian cancer, restless leg, Factor V blood disorder, DVT R leg, 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 HAD [place] 10/27/23 Last Myocardial Infarction Date:: LAST ONE 10/27/23 History of Any Multi-Drug Resistant Organisms: None Reported Past Surgical History: Section, Cholecystectomy, Heart Catheterization With Stent, Hysterectomy, Tubal Ligation, Uterine Ablation Additional Past Surgical History / Comment(s): vein stripping right leg, radio frequency ablation of right back-02/22/2015, four stents on 04/03/16 and one on march 05, ovaries removed, colonscopy- polyp removal Past Anesthesia/Blood Transfusion Reactions: Motion Sickness Additional Past Anesthesia/Blood Transfusion Reaction / Comment(s): mild chet strophobia Date of Last Stent Placement:: 04/03/16 Past Psychological History: Anxiety, Depression Smoking Status: Current every day smoker Past Alcohol Use History: None Reported Past Drug Use History: None Reported - Past Family History Father Family Medical History: Congestive Heart Failure (CHF), Coronary Artery Disease (CAD), Diabetes Mellitus Mother Family Medical History: Cancer, COPD, Hypertension, Respiratory Disorder Additional Family Medical History / Comment(s): emphysema, colon CA Medications and Allergies Home Medications Medication Instructions Recorded Confirmed Type Aspirin [Adult Low Dose Aspirin EC] 81 mg PO HS 11/26/17 07/28/24 History DULoxetine HCL [Cymbalta] 60 mg PO DAILY 08/25/18 07/28/24 History Isosorbide Mononitrate ER [Imdur] 60 mg PO DAILY 09/08/18 07/28/24 History Empagliflozin [Jardiance] 10 mg PO DAILY 10/06/22 07/28/24 History Famotidine 20 mg PO BID PRN 10/06/22 07/28/24 History Nitroglycerin Sl Tabs [Nitrostat] 0.4 mg SL Q5M PRN 10/06/22 07/28/24 History Fenofibrate [Lofibra] 160 mg PO DAILY 01/25/23 07/28/24 History Pregabalin [Lyrica] 150 mg PO BID 02/05/23 07/28/24 History Budesonide/Formoterol Fumarate 2 puff INHALATION RT-BID PRN 07/17/23 07/28/24 History [Symbicort 160-4.5 Mcg Inhaler] INSULIN LISPRO (For Pump) [humaLOG 0.01 units SQ-PUMP CONTINUOUS 07/17/23 07/28/24 History (For Pump)] Atorvastatin [Lipitor] 40 mg PO HS 12/11/23 07/28/24 History Magnesium Oxide [Mag-Ox] 400 mg PO BID 03/10/24 07/28/24 History ALPRAZolam [Xanax] 1 mg PO TID PRN 03/28/24 07/28/24 History Cinacalcet [Sensipar] 30 mg PO MOTUWETHFR 03/28/24 07/28/24 History ARIPiprazole [Abilify] 10 mg PO HS 05/04/24 07/28/24 History Ondansetron Odt [Zofran ODT] 8 mg PO Q12HR 05/04/24 07/28/24 History Clopidogrel [Plavix] 75 mg PO DAILY 30 Days #30 tab 05/13/24 07/28/24 Rx Cholecalciferol [Vitamin D3 (125 125 mcg PO DAILY 30 Days #30 tab 07/18/24 07/28/24 Rx Mcg = 5000 Iu)] carvediloL [Coreg*] 25 mg PO BID-W/MEALS 30 Days #60 07/18/24 07/28/24 Rx tab Allergies Allergy/AdvReac Type Severity Reaction Status Date / Time Fish Containing Products Allergy Anaphylaxis Verified 07/28/24 19:40 Iodinated Contrast Media Allergy Anaphylaxis Verified 07/28/24 19:40 [Iodinated Contrast Media - IV Dye] Sulfa (Sulfonamide Allergy Anaphylaxis Verified 07/28/24 19:40 Antibiotics) sulfamethoxazole Allergy Anaphylaxis Verified 07/28/24 19:40 [From Septra] tree nut [Nut] Allergy Anaphylaxis Verified 07/28/24 19:40 trimethoprim [From Junra] Allergy Anaphylaxis Verified 07/28/24 19:40 Physical Exam Vitals: Vital Signs Temp Pulse Pulse Resp BP Pulse Ox 07/29/24 09:40 86 18 169/83 98 07/29/24 08:16 80 18 161/83 07/29/24 06:06 98.8 F 78 18 175/88 93 L 07/29/24 04:25 77 20 165/79 95 07/29/24 00:02 80 18 136/77 94 L 07/28/24 23:54 80 17 125/66 95 07/28/24 23:00 79 16 121/70 95 07/28/24 19:28 98.3 F 82 20 143/82 94 L 07/28/24 17:25 65 07/28/24 17:23 98.6 F 85 18 167/75 95 Intake and Output 07/28/24 07/29/24 07/29/24 22:59 06:59 14:59 Intake Total 73 80.615 Balance 73 80.615 Intake: Intake, IV Titration 73 80.615 Amount Heparin Sod,Pork in 0.45% 73 80.615 NaCl 25,000 unit In 0.45 % NaCl 1 250ml.bag @ 10. 599 UNITS/KG/HR 10 mls/hr IV .Q24H [facility] Rx#: [id number] Other: Weight 94.347 kg Head normocephalic Neck supple Lungs clear to auscultation bilaterally no wheezing or crackles Heart regular rate and rhythm S1-S2, no rub or gallop Abdomen is soft nontender nondistended positive bowel sounds no hepatosplenomegaly Extremities no edema Neuro alert and orientated to 3 Results CBC & Chem 7: 07/29/24 08:27 07/28/24 18:04 Labs: Abnormal Lab Results - Last 24 Hours (Table) 07/28/24 07/28/24 07/28/24 Range/Units 18:04 18:04 18:04 WBC 13.9 H (3.8-10.6) k/uL RBC 3.48 L (3.80-5.40) m/uL Hgb 11.0 L (11.4-16.0) gm/dL RDW 16.6 H (11.5-15.5) % Neutrophils # 10.3 H (1.3-7.7) k/uL APTT (22.0-30.0) sec BUN 49 H (7-17) mg/dL Creatinine 2.06 H (0.52-1.04) mg/dL Glucose 206 H (74-99) mg/dL Alkaline Phosphatase 173 H (38-126) U/L Troponin I 0.644 H* (0.000-0.034) ng/mL Total Protein 5.4 L (6.3-8.2) g/dL Albumin 3.1 L (3.5-5.0) g/dL Triglycerides (0.00-149.00) mg/dL 07/28/24 07/29/24 07/29/24 Range/Units 20:45 02:05 02:05 WBC (3.8-10.6) k/uL RBC (3.80-5.40) m/uL Hgb (11.4-16.0) gm/dL RDW (11.5-15.5) % Neutrophils # (1.3-7.7) k/uL APTT 31.9 H (22.0-30.0) sec BUN (7-17) mg/dL Creatinine (0.52-1.04) mg/dL Glucose (74-99) mg/dL Alkaline Phosphatase (38-126) U/L Troponin I 0.637 H* 0.639 H* (0.000-0.034) ng/mL Total Protein (6.3-8.2) g/dL Albumin (3.5-5.0) g/dL Triglycerides (0.00-149.00) mg/dL 07/29/24 07/29/24 Range/Units 08:27 08:27 WBC (3.8-10.6) k/uL RBC (3.80-5.40) m/uL Hgb (11.4-16.0) gm/dL RDW (11.5-15.5) % Neutrophils # (1.3-7.7) k/uL APTT 39.4 H (22.0-30.0) sec BUN (7-17) mg/dL Creatinine (0.52-1.04) mg/dL Glucose (74-99) mg/dL Alkaline Phosphatase (38-126) U/L Troponin I (0.000-0.034) ng/mL Total Protein (6.3-8.2) g/dL Albumin (3.5-5.0) g/dL Triglycerides 190.00 H (0.00-149.00) mg/dL Assessment and Plan Assessment: 1. Chest pain 2. Elevated troponins. Per cardiology services this is a chronic issue no evidence of myocardial injury or ischemia 3. Leukocytosis patient was recently discharged on prednisone and Augmentin 4. History of coronary artery disease with previous stent placement x 5 5. History of CVA 6. History of insulin-dependent diabetes mellitus maintained on home insulin pump 7. History of hyperlipidemia 8. History of chronic kidney disease 9. History of ongoing nicotine dependence Patient started on heparin drip Cardiology services consulted Stress test has been ordered Repeat labs ordered Time with Patient: Greater than 30 (Greater than 60% of the total time spent in counseling and coordination of care)
[2024-07-29] MEDS: CLOPIDOGREL 75 MG TAB PO SCH (13:10)
[2024-07-29] MEDS: LOSARTAN 25 MG TAB PO SCH (13:11)
[2024-07-29] MEDS: FENOFIBRATE 160 MG TAB PO SCH (13:11)
[2024-07-29] MEDS: ISOSORBIDE MONONITRATE ER 60 MG TAB.ER.24H PO SCH (13:11)
[2024-07-29] MEDS: FUROSEMIDE 10 MG/ML 10 ML VIAL IV SCH (13:22)
[2024-07-29] MEDS: carvediloL 12.5 MG TAB PO SCH (15:44)
[2024-07-29] MEDS: INSULIN ASPART (NovoLOG) 100 UNIT/ML VIAL SQ SCH (18:19)
[2024-07-29] MEDS: SYMBICORT 160-4.5 MCG INHALER INHALATION SCH (19:43)
[2024-07-29] MEDS: PREGABALIN 75 MG CAP PO SCH (23:01)
[2024-07-29] MEDS: MAGNESIUM OXIDE 400 MG TAB PO SCH (23:01)
[2024-07-29] MEDS: ATORVASTATIN 40 MG TAB PO SCH (23:01)
[2024-07-29] MEDS: ASPIRIN 81 MG PO SCH (23:01)
[2024-07-29] MEDS: ARIPiprazole 10 MG TAB PO SCH (23:03)
[2024-07-30] MEDS: NITROGLYCERIN SL TABS 0.4 MG TAB SUBLINGUAL PRN (02:59)
[2024-07-30] MEDS: ALPRAZolam 1 MG TAB PO PRN (03:07)
[2024-07-30 03:32] LABS: Anisocytosis Slight; Basophils % (A) 0 %; Eosinophils # (A) 0.1 k/uL (0-0.7); Eosinophils % (A) 1 %; HCT 30.1 % (34.0-46.0); HGB 9.9 gm/dL (11.4-16.0); Hypochromasia Slight; Lymphocytes # (A) 2.4 k/uL (1.0-4.8); Lymphocytes % (A) 19 %; MCH 32.1 pg (25.0-35.0); MCHC 32.8 g/dL (31.0-37.0); MCV 97.8 fL (80.0-100.0); Macrocytosis Slight; Monocytes # (A) 0.6 k/uL (0-1.0); Monocytes % (A) 5 %; Neutrophils # (A) 9.2 k/uL (1.3-7.7); Neutrophils % (A) 74 %; Platelet Count 229 k/uL (150-450); RBC 3.08 m/uL (3.80-5.40); RDW 17.1 % (11.5-15.5); WBC 12.5 k/uL (3.8-10.6)
[2024-07-30 04:30] LABS: ALT 16 U/L (4-34); AST 17 U/L (14-36); African American GFR (CKD) 27 (>60 ml/min/1.73 sqM); Albumin 2.7 g/dL (3.5-5.0); Alkaline Phosphatase 152 U/L (38-126); Anion Gap 3 mmol/L; Blood Urea Nitrogen 48 mg/dL (7-17); Calcium 8.8 mg/dL (8.4-10.2); Carbon Dioxide 24 mmol/L (22-30); Chloride 109 mmol/L (98-107); Glucose 266 mg/dL (74-99); Non-African American GFR(CKD) 24 (>60 ml/min/1.73 sqM); Potassium 4.8 mmol/L (3.5-5.1); Sodium 136 mmol/L (137-145); Total Bilirubin 0.3 mg/dL (0.2-1.3); Total Protein 4.7 g/dL (6.3-8.2)
[2024-07-30] MEDS: ISOSORBIDE MONONITRATE ER 30 MG TAB.ER.24H PO STA (04:43)
[2024-07-30] MEDS ORDERED: CAFFEINE CITRATE 60 MG/3 ML VIAL IV PRN (06:00)
[2024-07-30] MEDS ORDERED: AMINOPHYLLINE 500 MG/20 ML VIAL IV PRN (06:00)
[2024-07-30] MEDS ORDERED: REGADENOSON 0.4 MG/5 ML SYRINGE IV PRN (06:00)
[2024-07-30 08:36] VITALS: RESP 18
[2024-07-30] MEDS: CHOLECALCIFEROL 125 MCG (5000 IU) TABLET PO SCH (08:41)
[2024-07-30] MEDS: DULoxetine HCL 60 MG CAPSULE.DR PO SCH (08:42)
[2024-07-30] MEDS: DAPAGLIFLOZIN PROPANEDIOL 5 MG TABLET PO SCH (08:42)
--- NOTE | 2024-07-30 10:17 | CA ---
Lexiscan Nuclear Stress Test Report Name: Leticia Langley Exam Date: 07/30/2024 09:22 Exam Location: [place] Stress Ht (in): 66 Wt (lb): 235 BSA: 2.14 Ordering Phys: Perla Farr Referring Phys: PAOLA Technologist: Balaji Marquez Age: 53 Gender: F : 1970 Procedure CPT: Indications: Reflex order-Stress test ICD-10 Codes: Patient History: Medications: SEE CHART Meds past 24 hrs: Pretest Chest Pain: STRESS TEST Lexiscan Protocol Exercise Duration (min:sec): 01:[address] Depressions (mm): Angina Score: Warner Score: Resting HR (bpm): 78 Peak HR (bpm): 87 Resting BP (mmHg): 124 / 77 Peak BP (mmHg): 109 / 71 MPHR: 168 Target HR: 143 % MPHR: 52 METS: 1.0 Total Dose: Peak Dose: Atropine: Double Product: 9483 BP Response: Stress Termination: INFUSION COMPLETE Stress Symptoms: NO SYMPTOMS Stress Summary: ECG ANALYSIS Resting ECG: Normal sinus rhythm with right bundle branch block Stress ECG: Patient was given intravenous Lexiscan as a protocol did not have chest pain or diagnostic ST segment depression CONCLUSIONS Negative stress test by EKG criteria Cardiolite portion of the stress test will be reported separately Dr. Curt Jasso MD (Electronically Signed) Final Date: 30 July 2024 10:15
[2024-07-30 11:11] VITALS: BP 123/62; PULSE 76; TEMP 97.1
--- NOTE | 2024-07-30 11:38 | NM ---
EXAMINATION TYPE: NM stress lexiscan cardiolite DATE OF EXAM: 07/30/2024 COMPARISON: NONE CLINICAL INDICATION: Female, 53 years old with history of CP; TECHNIQUE: After the intravenous administration of 10.4 mCi Tc 99m Sestamibi - Cardiolite resting SP ECT images acquired 45 minutes post injection. The patient received 0.4mg Lexiscan, 26.4 mCi Tc 99m Sestamibi - Stress images obtained [address] injection FINDINGS: Review of stress and rest SPECT images demonstrates reversible ischemia involving the inferior wall s urrounded by a remote insult. Gated analysis shows normal wall motion with an estimated left ventricu lar ejection fraction of 38 %. IMPRESSION: SPECT images demonstrates reversible ischemia involving the inferior wall surrounded by remote insul t. [facility], , 07/30/2024 11:36 AM
[2024-07-30] MEDS: CINACALCET 30 MG TAB PO SCH (12:25)
[2024-07-30] MEDS: FUROSEMIDE 40 MG TAB PO SCH (13:13)
--- NOTE | 2024-07-30 13:28 | P.PN ---
Subjective HISTORY OF PRESENT ILLNESS: This is a 53-year-old female with a past medical history significant for hypertension, hyperlipidemia, diabetes, CAD with previous multivessel stenting, chronic kidney disease and bipolar disorder. Patient follows in the office with Dr. Jasso. We have been asked to see the patient in consultation for elevated troponins. Patient examined at the bedside in the emergency room. Patient was recently hospitalized secondary to sepsis and right lower extremity cellulitis and pneumonia. Patient presented back to the hospital with a chief complaint of chest discomfort. She states that she woke up yesterday around 5:00 in the morning with chest pain. She states the pain was in the middle of her chest. She also reports feeling nauseated at that time. She states that she waited about 1 hour and then took a nitro which did not help her pain. She states that her whole body felt tingly. She states that the pain is improved with various stretching exercises. She continues to report mild chest discomfort but states it is improving from yesterday. Patient's blood pressures were found to be elevated with a systolic 2 and [id number]. She does report her blood pressures at home have been running on the higher side. DIAGNOSTICS: - EKG reveals sinus mechanism with right bundle branch block - Chest xray negative for acute process - Laboratory data: WBC 13.9. Hemoglobin 11.0. Platelet count 255. Sodium 138. Potassium 4.1. BUN 49. Creatinine 2.06. Troponin 0.644. 0.637. 0.639. - Current home cardiac medications include aspirin 81 mg daily, atorvastatin 40 mg at night, Plavix 75 mg daily, Jardiance 10 mg daily, Imdur 60 mg daily, carvedilol 25 mg twice a day - Most recent echocardiogram obtained in May 2024 revealing ejection fraction 55 to 60%, severe LVH, mild mitral regurgitation, mild tricuspid regurgitation, mildly dilated aortic root. - Cardiac catheterization history: November 2023 revealing 60% mid RCA stenosis involving the previously stented segment. Patent stents within the RCA, LAD, and diagonal with moderate nonobstructive disease involving the LAD and the ostial portion of the diagonal branch. Patient underwent IFR of mid RCA by Dr. Mckeon which came to be an abnormal at 0.84. Given long area of prior stenting with increased long-term risk of restenosis, consider medical therapy. If patient having consistent angina would recommend staged PCI of RCA 07/30/2024 Patient examined this afternoon at bedside. Patient is somewhat sleepy at the time of examination. She denies any further episodes of chest pain or pressure. She denies any shortness of breath. Lexiscan stress test reported as reversible ischemia involving inferior wall surrounded by remote insult. Dr. Mckeon independently reviewed Lexiscan images and no reversible ischemia noted per his interpretation; likely diaphragmatic attenuation. PHYSICAL EXAM: VITAL SIGNS: Reviewed. GENERAL: Well-developed in no acute distress. HEENT: Head is normocephalic. Pupils are equal, round. Sclerae anicteric. Mucous membranes of the mouth are moist. Neck supple. No JVD or thyromegaly LUNGS: Respirations even and unlabored. Lungs essentially clear to auscultation bilaterally. HEART: Regular rate and rhythm. S1 and S2 heard. ABDOMEN: Soft. Nondistended. Nontender. EXTREMITIES: Normal range of motion. No clubbing or cyanosis. Peripheral pulses intact. 2+ bilateral lower extremity edema NEUROLOGIC: Awake and alert. Oriented x 3. ASSESSMENT: Chest pain, appears musculoskeletal, with flat troponin pattern Hypertension, uncontrolled Acute on chronic heart failure with preserved EF Recent hospitalization for right lower extremity cellulitis pneumonia and sepsis Coronary artery disease with previous multivessel stenting Chronic kidney disease History of TIA Severe left ventricular hypertrophy Chronically elevated troponins, flat, secondary to poor renal clearance/LVH, no evidence of myocardial injury or ischemia Hyperlipidemia Recent admissions for syncope and TIA PLAN: Discontinue IV heparin Discontinue IV Lasix. Begin oral Lasix [address] Mckeon independently reviewed Lexiscan images and no reversible ischemia noted per his interpretation; likely diaphragmatic attenuation. Given patient's chest pain was atypical and appear to be musculoskeletal with improvement and stretching exercises in addition to patient's chronic kidney disease and the fact that patient has had no further episodes of chest discomfort, do not recommend cardiac catheterization at this time unless patient has continued episodes of angina. Patient is stable for discharge home today from a cardiac standpoint She is to follow-up postdischarge in the office Nurse practitioner note has been reviewed by physician. Signing provider agrees with the documented findings, assessment, and plan of care documented by AUDIO/VISUAL MANAGER as a scribe. Objective - Vital Signs Vital signs: Vital Signs Temp 97.1 F L 07/30/24 11:08 Pulse 76 07/30/24 11:08 Resp 18 07/30/24 11:08 BP 123/62 07/30/24 11:08 Pulse Ox 92 L 07/30/24 11:08 FiO2 Intake & Output 07/29/24 07/30/24 07/30/24 18:59 06:59 18:59 Intake Total 177.000 247.139 Balance 177.000 247.139 Weight 106.6 kg Intake: IV 10 Invasive Line 1 10 Intake, IV Titration 177.000 237.139 Amount Heparin Sod,Pork in 0.45% 177.000 237.139 NaCl 25,000 unit In 0.45 % NaCl 1 250ml.bag @ 10. 599 UNITS/KG/HR 10 mls/hr IV .Q24H [facility] Rx#: [id number] Other: Voiding Method Toilet - Labs CBC & Chem 7: 07/30/24 03:15 07/30/24 03:15 Labs: Abnormal Lab Results - Last 24 Hours (Table) 07/29/24 07/29/24 07/30/24 Range/Units 14:08 19:43 03:15 WBC (3.8-10.6) k/uL RBC (3.80-5.40) m/uL Hgb (11.4-16.0) gm/dL Hct (34.0-46.0) % RDW (11.5-15.5) % Neutrophils # (1.3-7.7) k/uL APTT 44.1 H 34.7 H (22.0-30.0) sec Sodium (137-145) mmol/L Chloride (98-107) mmol/L BUN (7-17) mg/dL Creatinine (0.52-1.04) mg/dL Glucose (74-99) mg/dL Hemoglobin A1c 11.6 H (<=6.0) % Alkaline Phosphatase (38-126) U/L Total Protein (6.3-8.2) g/dL Albumin (3.5-5.0) g/dL 07/30/24 07/30/24 07/30/24 Range/Units 03:15 03:15 03:15 WBC 12.5 H (3.8-10.6) k/uL RBC 3.08 L (3.80-5.40) m/uL Hgb 9.9 L (11.4-16.0) gm/dL Hct 30.1 L (34.0-46.0) % RDW 17.1 H (11.5-15.5) % Neutrophils # 9.2 H (1.3-7.7) k/uL APTT 41.2 H (22.0-30.0) sec Sodium 136 L (137-145) mmol/L Chloride 109 H (98-107) mmol/L BUN 48 H (7-17) mg/dL Creatinine 2.32 H (0.52-1.04) mg/dL Glucose 266 H (74-99) mg/dL Hemoglobin A1c (<=6.0) % Alkaline Phosphatase 152 H (38-126) U/L Total Protein 4.7 L (6.3-8.2) g/dL Albumin 2.7 L (3.5-5.0) g/dL
--- NOTE | 2024-07-30 16:11 | P.DS ---
Providers Date of admission: 07/28/24 19:44 Expected date of discharge: 07/30/24 Attending physician: Evin Sanchez Consults: 07/28/24 19:42 Consult Physician Urgent Consulting Provider: Eligio Mckeon Reason/Comments: nstemi Do you want consulting provider notified?: Yes Primary care physician: Dagmar Hennessy Hospital Course: Diagnosis on discharge: 1. Chest pain 2. Elevated troponins. Per cardiology services this is a chronic issue no evidence of myocardial injury or ischemia 3. Leukocytosis patient was recently discharged on prednisone and Augmentin 4. History of coronary artery disease with previous stent placement x 5 5. History of CVA 6. History of insulin-dependent diabetes mellitus maintained on home insulin pump 7. History of hyperlipidemia 8. History of chronic kidney disease 9. History of ongoing nicotine dependence Hospital course: Leticia Langley is a 53-year-old female patient who presented with complaints of chest pain. This patient is well-known to my services with frequent admissions for similar episodes. Patient has a significant past medical history of hypertension, hyperlipidemia, diabetes, coronary artery disease with previous multivessel vessel stenting, chronic kidney disease, bipolar disorder and stroke with left-sided deficit. Patient reports that pain started yesterday around 5:00 in the morning in the middle of her chest associated with nausea patient reports that she took another nitro with minimal improvement. Patient denies any recent illness. Patient reports she has been taking her medication as prescribed. Chest x-ray completed showing no acute pulmonary process. EKG completed showing right bundle branch block. Lab work revealing elevated troponin level 0.644, 0.637 and 0.639. Creatinine 2.06 and bun 49 this does appear patient's baseline. White blood cell 13.9. Patient recently admitted on 07/18/2024 white blood cell at that time 16.4 at this time patient will be admitted patient started on heparin drip and cardiology services consulted. Patient denies chest pain or shortness of breath. Patient denies nausea vomiting or diarrhea. Patient denies any urinary burning or frequency. On 07/30/2024 patient was seen and examined on the medical floor she is alert and oriented x 3 in no apparent distress she denies any new episodes of chest pain. She was evaluated by cardiology, she underwent a stress test, this was initially read by radiology as an area of reversibility, however it was reevaluated by Dr. Mckeon qc analyst and it was felt to be an artifact from breast attenuation. Patient was cleared for discharge by cardiology, she will be discharged to home today she will follow-up with her primary care physician Dr. Hennessy and with cardiology in the next 1 to 2 weeks Plan - Discharge Summary Discharge Rx Participant: No New Discharge Prescriptions: New Losartan [Cozaar] 25 mg PO DAILY 30 Days #30 tab Continue Aspirin [Adult Low Dose Aspirin EC] 81 mg PO HS DULoxetine HCL [Cymbalta] 60 mg PO DAILY Isosorbide Mononitrate ER [Imdur] 60 mg PO DAILY Famotidine 20 mg PO BID PRN PRN Reason: acid reflux Nitroglycerin Sl Tabs [Nitrostat] 0.4 mg SL Q5M PRN PRN Reason: Chest Pain Pregabalin [Lyrica] 150 mg PO BID INSULIN LISPRO (For Pump) [humaLOG (For Pump)] 0.01 units SQ-PUMP CONTINUOUS Atorvastatin [Lipitor] 40 mg PO HS ALPRAZolam [Xanax] 1 mg PO TID PRN PRN Reason: Anxiety Ondansetron Odt [Zofran ODT] 8 mg PO Q12HR Cholecalciferol [Vitamin D3 (125 Mcg = 5000 Iu)] 125 mcg PO DAILY 30 Days #30 tab Empagliflozin [Jardiance] 10 mg PO DAILY Fenofibrate [Lofibra] 160 mg PO DAILY Budesonide/Formoterol Fumarate [Symbicort 160-4.5 Mcg Inhaler] 2 puff INHALATION RT-BID PRN PRN Reason: COPD Magnesium Oxide [Mag-Ox] 400 mg PO BID Cinacalcet [Sensipar] 30 mg PO MOTUWETHFR ARIPiprazole [Abilify] 10 mg PO HS Clopidogrel [Plavix] 75 mg PO DAILY 30 Days #30 tab carvediloL [Coreg*] 25 mg PO BID-W/MEALS 30 Days #60 tab Discharge Medication List Aspirin [Adult Low Dose Aspirin EC] 81 mg PO HS 11/26/17 [History] DULoxetine HCL [Cymbalta] 60 mg PO DAILY 08/25/18 [History] Isosorbide Mononitrate ER [Imdur] 60 mg PO DAILY 09/08/18 [History] Empagliflozin [Jardiance] 10 mg PO DAILY 10/06/22 [History] Famotidine 20 mg PO BID PRN 10/06/22 [History] Nitroglycerin Sl Tabs [Nitrostat] 0.4 mg SL Q5M PRN 10/06/22 [History] Fenofibrate [Lofibra] 160 mg PO DAILY 01/25/23 [History] Pregabalin [Lyrica] 150 mg PO BID 02/05/23 [History] Budesonide/Formoterol Fumarate [Symbicort 160-4.5 Mcg Inhaler] 2 puff INHALATION RT-BID PRN 07/17/23 [History] INSULIN LISPRO (For Pump) [humaLOG (For Pump)] 0.01 units SQ-PUMP CONTINUOUS 07/17/23 [History] Atorvastatin [Lipitor] 40 mg PO HS 12/11/23 [History] Magnesium Oxide [Mag-Ox] 400 mg PO BID 03/10/24 [History] ALPRAZolam [Xanax] 1 mg PO TID PRN 03/28/24 [History] Cinacalcet [Sensipar] 30 mg PO MOTUWETHFR 03/28/24 [History] ARIPiprazole [Abilify] 10 mg PO HS 05/04/24 [History] Ondansetron Odt [Zofran ODT] 8 mg PO Q12HR 05/04/24 [History] Clopidogrel [Plavix] 75 mg PO DAILY 30 Days #30 tab 05/13/24 [Rx] Cholecalciferol [Vitamin D3 (125 Mcg = 5000 Iu)] 125 mcg PO DAILY 30 Days #30 tab 07/18/24 [Rx] carvediloL [Coreg*] 25 mg PO BID-W/MEALS 30 Days #60 tab 07/18/24 [Rx] Losartan [Cozaar] 25 mg PO DAILY 30 Days #30 tab 07/30/24 [Rx] Follow up Appointment(s)/Referral(s): Dagmar Hennessy MD [Primary Care Provider] - 1-2 days
[2024-07-30 16:39] LABS: Glucose,Whole Blood 346 mg/dL (70-110)
[2024-07-31 06:59] LABS: Glucose,Whole Blood 235 mg/dL (70-110)
[2024-07-31 06:59] LABS: Glucose,Whole Blood 282 mg/dL (70-110)
[2024-07-31 07:00] LABS: Glucose,Whole Blood 287 mg/dL (70-110)
[2024-07-31] MEDS ORDERED: FUROSEMIDE 40 MG TAB PO SCH (09:00)
== END 2024-07-30 17:55 | disposition home health service (06) ==
LOC: EC 17:18 → 3SCARD 19:44
PROVIDERS: ADMIT Internal Medicine; ATTEND Internal Medicine
DX: R07.89 Other chest pain (principal); R79.89 Other specified abnormal findings of blood chemistry; I13.0 Hypertensive heart and chronic kidney disease with heart failure and stage 1 through stage 4 chronic kidney disease, or unspecified chronic kidney disease; I50.33 Acute on chronic diastolic (congestive) heart failure; N18.9 Chronic kidney disease, unspecified; I25.10 Atherosclerotic heart disease of native coronary artery without angina pectoris; I25.2 Old myocardial infarction; I69.351 Hemiplegia and hemiparesis following cerebral infarction affecting right dominant side; I45.10 Unspecified right bundle-branch block; D72.829 Elevated white blood cell count, unspecified; E11.22 Type 2 diabetes mellitus with diabetic chronic kidney disease; E78.5 Hyperlipidemia, unspecified; F17.200 Nicotine dependence, unspecified, uncomplicated; F31.9 Bipolar disorder, unspecified; G47.33 Obstructive sleep apnea (adult) (pediatric); Z79.899 Other long term (current) drug therapy; Z79.82 Long term (current) use of aspirin; Z79.84 Long term (current) use of oral hypoglycemic drugs; Z79.51 Long term (current) use of inhaled steroids; Z79.4 Long term (current) use of insulin; Z96.41 Presence of insulin pump (external) (internal); Z79.02 Long term (current) use of antithrombotics/antiplatelets; Z95.5 Presence of coronary angioplasty implant and graft; Z86.718 Personal history of other venous thrombosis and embolism; Z88.2 Allergy status to sulfonamides; Z91.041 Radiographic dye allergy status
CPT/HCPCS: 96376 ×3; 96366 ×4; 96375; 96365; 99291; 36415; 94640; 93005 ×2; 93017; 80061; 80053 ×2; 83735; 84484 ×2; 85025 ×2; 85049; 85610; 85730 ×3; 83036; 71046; 78452; G0378 ×3; A9500; J1940; J1644 ×6; J2785; 96374

== ENCOUNTER 2024-08-16 07:58 | Emergency (ER) | payer OTHER ==
[2024-08-16 08:16] VITALS: RESP 18; TEMP 98.2
--- NOTE | 2024-08-16 08:58 | ED ---
Abdominal Pain HPI - General Chief Complaint: Abdominal Pain Stated Complaint: vomiting Time Seen by Provider: 08/16/24 08:12 Source: patient, family, RN notes reviewed Mode of arrival: wheelchair Limitations: no limitations - History of Present Illness Initial Comments: This is a 53-year-old female is well-known to emergency department who presents emergency department for chief complaint of diffuse abdominal pain, nausea and vomiting. States that over the past 2 weeks she has been having difficulty keeping down foods and liquids in addition to her medications. States that abdominal pain is diffuse. She denies chest pain, worsening shortness of breath, difficulty breathing, hematemesis, coffee-ground emesis. States that there has been a mild odor and has had some dysuria over the past few weeks as well. She denies back pain, changes in bowel habits. - Related Data Home Medications Medication Instructions Recorded Confirmed Aspirin [Adult Low Dose Aspirin EC] 81 mg PO HS 11/26/17 07/28/24 DULoxetine HCL [Cymbalta] 60 mg PO DAILY 08/25/18 07/28/24 Isosorbide Mononitrate ER [Imdur] 60 mg PO DAILY 09/08/18 07/28/24 Empagliflozin [Jardiance] 10 mg PO DAILY 10/06/22 07/28/24 Famotidine 20 mg PO BID PRN 10/06/22 07/28/24 Nitroglycerin Sl Tabs [Nitrostat] 0.4 mg SL Q5M PRN 10/06/22 07/28/24 Fenofibrate [Lofibra] 160 mg PO DAILY 01/25/23 07/28/24 Pregabalin [Lyrica] 150 mg PO BID 02/05/23 07/28/24 Budesonide/Formoterol Fumarate 2 puff INHALATION RT-BID PRN 07/17/23 07/28/24 [Symbicort 160-4.5 Mcg Inhaler] INSULIN LISPRO (For Pump) [humaLOG 0.01 units SQ-PUMP CONTINUOUS 07/17/23 07/28/24 (For Pump)] Atorvastatin [Lipitor] 40 mg PO HS 12/11/23 07/28/24 Magnesium Oxide [Mag-Ox] 400 mg PO BID 03/10/24 07/28/24 ALPRAZolam [Xanax] 1 mg PO TID PRN 03/28/24 07/28/24 Cinacalcet [Sensipar] 30 mg PO MOTUWETHFR 03/28/24 07/28/24 ARIPiprazole [Abilify] 10 mg PO HS 05/04/24 07/28/24 Ondansetron Odt [Zofran ODT] 8 mg PO Q12HR 05/04/24 07/28/24 Previous Rx's Medication Instructions Recorded Clopidogrel [Plavix] 75 mg PO DAILY 30 Days #30 tab 05/13/24 Cholecalciferol [Vitamin D3 (125 125 mcg PO DAILY 30 Days #30 tab 07/18/24 Mcg = 5000 Iu)] carvediloL [Coreg*] 25 mg PO BID-W/MEALS 30 Days #60 07/18/24 tab Losartan [Cozaar] 25 mg PO DAILY 30 Days #30 tab 07/30/24 Allergies Allergy/AdvReac Type Severity Reaction Status Date / Time Fish Containing Products Allergy Anaphylaxis Verified 08/16/24 08:13 Iodinated Contrast Media Allergy Anaphylaxis Verified 08/16/24 08:13 [Iodinated Contrast Media - IV Dye] Sulfa (Sulfonamide Allergy Anaphylaxis Verified 08/16/24 08:13 Antibiotics) sulfamethoxazole Allergy Anaphylaxis Verified 08/16/24 08:13 [From Septra] tree nut [Nut] Allergy Anaphylaxis Verified 08/16/24 08:13 trimethoprim [From Septra] Allergy Anaphylaxis Verified 08/16/24 08:13 Review of Systems ROS Statement: Those systems with pertinent positive or pertinent negative responses have been documented in the HPI. ROS Other: All systems not noted in ROS Statement are negative. 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 - slight foot drag when tired/neuropathies, MS, CO X 5, ABIGAIL with CPAP use, PAD/legs, R leg edema, past pancreatitis, CO 10/27/23 Last Myocardial Infarction Date:: LAST ONE 10/27/23 History of Any Multi-Drug Resistant Organisms: None Reported Past Surgical History: Section, Cholecystectomy, Heart Catheterization With Stent, Hysterectomy, Tubal Ligation, Uterine Ablation Additional Past Surgical History / Comment(s): vein stripping right leg, radio frequency ablation of right back-02/22/2015, four stents on 04/03/16 and one on march 05, ovaries removed, colonscopy- polyp removal Past Anesthesia/Blood Transfusion Reactions: Motion Sickness Additional Past Anesthesia/Blood Transfusion Reaction / Comment(s): mild claustrophobia Date of Last Stent Placement:: 04/03/16 Past Psychological History: Anxiety, Depression Smoking Status: Current some day smoker - Past Family History Father Family Medical History: Congestive Heart Failure (CHF), Coronary Artery Disease (CAD), Diabetes Mellitus Mother Family Medical History: Cancer, COPD, Hypertension, Respiratory Disorder Additional Family Medical History / Comment(s): emphysema, colon CA General Exam Limitations: no limitations General appearance: alert, in no apparent distress Eye exam: Present: normal appearance, PERRL, EOMI. Absent: scleral icterus, conjunctival injection, periorbital swelling ENT exam: Present: normal exam, mucous membranes moist Neck exam: Present: normal inspection. Absent: tenderness, meningismus, lymphadenopathy Respiratory exam: Present: normal lung sounds bilaterally. Absent: respiratory distress, wheezes, rales, rhonchi, stridor Cardiovascular Exam: Present: regular rate, normal rhythm, normal heart sounds. Absent: systolic murmur, diastolic murmur, rubs, gallop, clicks GI/Abdominal exam: Present: soft, tenderness (diffuse), normal bowel sounds. Absent: distended, guarding, rebound, rigid Extremities exam: Present: normal inspection, full ROM, normal capillary refill. Absent: tenderness, pedal edema, joint swelling, calf tenderness Back exam: Present: normal inspection Neurological exam: Present: alert, oriented X3, CN II-XII intact Skin exam: Present: warm, dry, intact, normal color. Absent: rash Course Vital Signs 08/16/24 08/16/24 08:13 11:09 Temperature 98.2 F Pulse Rate 86 78 Respiratory 18 18 Rate Blood Pressure 174/92 178/94 O2 Sat by Pulse 98 97 Oximetry Medical Decision Making - Medical Decision Making Was pt. sent in by a medical professional or institution (DENNIS Mayo, SENIOR CARE SPECIALIST, urgent care, hospital, or halfway...) When possible be specific @ -No Did you speak to anyone other than the patient for history (EMS, parent, family, police, friend...)? What history was obtained from this source @ -No Did you review nursing and triage notes (agree or disagree)? Why? @ -I reviewed and agree with nursing and triage notes Were old charts reviewed (outside hosp., previous admission, EMS record, old EKG, old radiological studies, urgent care reports/EKG's, halfway records)? Report findings @ -Reviewed the patient's previous laboratory results. Differential Diagnosis (chest pain, altered mental status, abdominal pain women, abdominal pain men, vaginal bleeding, weakness, fever, dyspnea, syncope, headache, dizziness, GI bleed, back pain, seizure, CVA, palpatations, mental health, musculoskeletal)? @ -Differential Abdominal Pain Women: Appendicitis, Cholecystitis, diverticulosis, ischemic bowel, pancreatitis, hepatitis, UTI, gastroenteritis, AAA, incarcerated hernia, bowel obstruction, constipation, inflammatory bowel, hepatitis, peptic ulcer disease, splenic infarction, perforated viscus, vulvitis, ovarian torsion, PID, kidney stone, placenta abruption, this is not meant to be an all-inclusive list EKG interpreted by me (3pts min.). @ -completed at 0855 sinus rhythm with ventricular rate of 84 QR interval 156, QRS 22, QTc 44. No acute ischemia. X-rays interpreted by me (1pt min.). @ -None done CT interpreted by me (1pt min.). @ -None done U/S interpreted by me (1pt. min.). @ -None done What testing was considered but not performed or refused? (CT, X-rays, U/S, labs)? Why? @ -None What meds were considered but not given or refused? Why? @ -None Did you discuss the management of the patient with other professionals (professionals i.e. DENNIS Mayo, SENIOR CARE SPECIALIST, lab, RT, psych nurse, foster care social worker, typing office worker, teacher, staff electronic warfare officer, caser up)? Give summary @ -No Was smoking cessation discussed for >3mins.? @ -No Was critical care preformed (if so, how long)? @ -No Were there social determinants of health that impacted care today? How? (Homelessness, low income, unemployed, alcoholism, drug addiction, transportation, low edu. Level, literacy, decrease access to med. care, care home, rehab)? @ -No Was there de-escalation of care discussed even if they declined (Discuss DNR or withdrawal of care, Hospice)? DNR status @ -No What co-morbidities impacted this encounter? (DM, HTN, Smoking, COPD, CAD, Cancer, CVA, ARF, Chemo, Hep., AIDS, mental health diagnosis, sleep apnea, morbid obesity)? @ -None Was patient admitted / discharged? Hospital course, mention meds given and route, prescriptions, significant lab abnormalities, going to OR and other pertinent info. @ -Discharged. 53-year-old female with nausea vomiting. on my evaluation the patient she is resting comfortably no signs acute distress. She is noted to be mildly hypertensive however very states that this is her baseline blood pressure. She is noted to have diffuse abdominal pain to palpation over all quadrants. Bowel sounds are equal. Patient is requesting pain medication before history is completed. Patient will be provided with pain medication pend ing laboratory works and urinalysis. She is in agreement with this plan. CBC reveals mild leukocytosis 11.5 which is likely reactive secondary to emesis, neutrophils mildly bumped to 8.0, CMP reveals hyperglycemia 365, pancreatic enzymes within normal limits, troponin not elevated at 0.027, urinalysis remarkable for glucose. EKG sinus rhythm with no changes as compared to previous. On reevaluation, patient states that she is feeling better. She is provided with 8 unit insulin bolus and instructed to follow-up with her primary care provider outpatient for further evaluation. All questions answered at bedside and strict return parameters have been discussed with the patient she is verbalized understanding. Case discussed with Dr. Ortega Undiagnosed new problem with uncertain prognosis? @ -No Drug Therapy requiring intensive monitoring for toxicity (Heparin, Nitro, Insulin, Cardizem)? @ -No Were any procedures done? @ -No Diagnosis/symptom? @ -Nausea, vomiting, unspecified abdominal pain Acute, or Chronic, or Acute on Chronic? @ -Acute Uncomplicated (without systemic symptoms) or Complicated (systemic symptoms)? @ -uncomplicated Side effects of treatment? @ -No Exacerbation, Progression, or Severe Exacerbation? @ -No Poses a threat to life or bodily function? How? (Chest pain, USA, CO, pneumonia, PE, COPD, DKA, ARF, appy, cholecystitis, CVA, Diverticulitis, Homicidal, Suicidal, threat to staff... and all critical care pts) @ -No - Lab Data Result diagrams: 08/16/24 09:19 08/16/24 09:19 Lab Results 08/16/24 08/16/24 08/16/24 Range/Units 09:19 09:19 09:19 WBC 11.5 H (3.8-10.6) k/uL RBC 4.11 (3.80-5.40) m/uL Hgb 12.0 (11.4-16.0) gm/dL Hct 39.1 (34.0-46.0) % MCV 95.0 (80.0-100.0) fL MCH 29.2 (25.0-35.0) pg MCHC 30.7 L (31.0-37.0) g/dL RDW 16.0 H (11.5-15.5) % Plt Count 591 H D (150-450) k/uL MPV 8.6 Neutrophils % 70 % Lymphocytes % 23 % Monocytes % 3 % Eosinophils % 2 % Basophils % 1 % Neutrophils # 8.0 H (1.3-7.7) k/uL Lymphocytes # 2.6 (1.0-4.8) k/uL Monocytes # 0.4 (0-1.0) k/uL Eosinophils # 0.2 (0-0.7) k/uL Basophils # 0.1 (0-0.2) k/uL Hypochromasia Marked Anisocytosis Slight Sodium 136 L (137-145) mmol/L Potassium 4.1 (3.5-5.1) mmol/L Chloride 106 (98-107) mmol/L Carbon Dioxide 20 L (22-30) mmol/L Anion Gap 10 mmol/L BUN 22 H (7-17) mg/dL Creatinine 1.87 H (0.52-1.04) mg/dL Est GFR (CKD-EPI)AfAm 35 (>60 ml/min/1.73 sqM) Est GFR (CKD-EPI)NonAf 30 (>60 ml/min/1.73 sqM) Glucose 365 H (74-99) mg/dL POC Glucose (mg/dL) (70-110) mg/dL POC Glu Eyeglass Lens Generator ID Plasma Lactic Acid Faheem 1.1 (0.7-2.0) mmol/L Calcium 10.1 (8.4-10.2) mg/dL Total Bilirubin 0.3 (0.2-1.3) mg/dL AST 19 (14-36) U/L ALT 15 (4-34) U/L Alkaline Phosphatase 190 H (38-126) U/L Troponin I (0.000-0.034) ng/mL Total Protein 5.6 L (6.3-8.2) g/dL Albumin 3.4 L (3.5-5.0) g/dL Amylase 33 (30-110) U/L Lipase 69 (23-300) U/L Urine Color Urine Appearance (Clear) Urine pH (5.0-8.0) Ur Specific Atwood (1.001-1.035) Urine Protein (Negative) Urine Glucose (UA) (Negative) Urine Ketones (Negative) Urine Blood (Negative) Urine Nitrite (Negative) Urine Bilirubin (Negative) Urine Urobilinogen (<2.0) mg/dL Ur Leukocyte Esterase (Negative) Urine RBC (0-5) /hpf Urine WBC (0-5) /hpf Ur Squamous Epith Cells (0-4) /hpf Urine Bacteria (None) /hpf Hyaline Casts (0-2) /lpf Urine Mucus (None) /hpf 08/16/24 08/16/24 08/16/24 Range/Units 09:19 09:27 11:41 WBC (3.8-10.6) k/uL RBC (3.80-5.40) m/uL Hgb (11.4-16.0) gm/dL Hct (34.0-46.0) % MCV (80.0-100.0) fL MCH (25.0-35.0) pg MCHC (31.0-37.0) g/dL RDW (11.5-15.5) % Plt Count (150-450) k/uL MPV Neutrophils % % Lymphocytes % % Monocytes % % Eosinophils % % Basophils % % Neutrophils # (1.3-7.7) k/uL Lymphocytes # (1.0-4.8) k/uL Monocytes # (0-1.0) k/uL Eosinophils # (0-0.7) k/uL Basophils # (0-0.2) k/uL Hypochromasia Anisocytosis Sodium (137-145) mmol/L Potassium (3.5-5.1) mmol/L Chloride (98-107) mmol/L Carbon Dioxide (22-30) mmol/L Anion Gap mmol/L BUN (7-17) mg/dL Creatinine (0.52-1.04) mg/dL Est GFR (CKD-EPI)AfAm (>60 ml/min/1.73 sqM) Est GFR (CKD-EPI)NonAf (>60 ml/min/1.73 sqM) Glucose (74-99) mg/dL POC Glucose (mg/dL) 256 H (70-110) mg/dL POC Glu Eyeglass Lens Generator ID Ramos Goodman Plasma Lactic Acid Faheem (0.7-2.0) mmol/L Calcium (8.4-10.2) mg/dL Total Bilirubin (0.2-1.3) mg/dL AST (14-36) U/L ALT (4-34) U/L Alkaline Phosphatase (38-126) U/L Troponin I 0.027 (0.000-0.034) ng/mL Total Protein (6.3-8.2) g/dL Albumin (3.5-5.0) g/dL Amylase (30-110) U/L Lipase (23-300) U/L Urine Color Yellow Urine Appearance Cloudy H (Clear) Urine pH 6.0 (5.0-8.0) Ur Specific [place] 1.031 (1.001-1.035) Urine Protein 4+ H (Negative) Urine Glucose (UA) 4+ H (Negative) Urine Ketones Negative (Negative) Urine Blood Trace H (Negative) Urine Nitrite Negative (Negative) Urine Bilirubin Negative (Negative) Urine Urobilinogen <2.0 (<2.0) mg/dL Ur Leukocyte Esterase Negative (Negative) Urine RBC 1 (0-5) /hpf Urine WBC 3 (0-5) /hpf Ur Squamous Epith Cells 4 (0-4) /hpf Urine Bacteria Rare H (None) /hpf Hyaline Casts 1 (0-2) /lpf Urine Mucus Rare H (None) /hpf Disposition Clinical Impression: Hyperglycemia, Abdominal pain Disposition: HOME SELF-CARE Condition: Stable Instructions (If sedation given, give patient instructions): Abdominal Pain (ED), Diabetic Hyperglycemia (ED) Additional Instructions: Please return to the Emergency Department if symptoms worsen or any other concerns. Is patient prescribed a controlled substance at d/c from ED?: No Referrals: Dagmar Hennessy MD [Primary Care Provider] - 1-2 days Time of Disposition: 10:57
[2024-08-16] MEDS: MORPHINE SULFATE 4 MG/ML SYRINGE IVP STA (09:27)
[2024-08-16 09:39] LABS: Anisocytosis Slight; Basophils # (A) 0.1 k/uL (0-0.2); Basophils % (A) 1 %; Eosinophils # (A) 0.2 k/uL (0-0.7); Eosinophils % (A) 2 %; HCT 39.1 % (34.0-46.0); Hypochromasia Marked; Lymphocytes # (A) 2.6 k/uL (1.0-4.8); Lymphocytes % (A) 23 %; MCH 29.2 pg (25.0-35.0); MCHC 30.7 g/dL (31.0-37.0); Mean Platelet Volume 8.6; Monocytes # (A) 0.4 k/uL (0-1.0); Monocytes % (A) 3 %; Neutrophils % (A) 70 %; RBC 4.11 m/uL (3.80-5.40); WBC 11.5 k/uL (3.8-10.6)
[2024-08-16 09:54] LABS: Appearance,Urine Cloudy (Clear); Bacteria,Urine Rare /hpf; Bilirubin,Urine Negative (Negative); Blood,Urine Trace (Negative); Color,Urine Yellow; Glucose,Urine (UA) 4+ (Negative); Hyaline Casts,Urine 1 /lpf (0-2); Ketones,Urine Negative (Negative); Leukocyte Esterase,Urine Negative (Negative); Mucus,Urine Rare /hpf; Nitrite,Urine Negative (Negative); Protein,Urine 4+ (Negative); RBC,Urine 1 /hpf (0-5); Specific Gravity,Urine 1.031 (1.001-1.035); Squamous Epithelial Cell,Urine 4 /hpf (0-4); Urobilinogen,Urine <2.0 mg/dL (<2.0); WBC,Urine 3 /hpf (0-5)
[2024-08-16 10:00] LABS: ALT 15 U/L (4-34); AST 19 U/L (14-36); African American GFR (CKD) 35 (>60 ml/min/1.73 sqM); Albumin 3.4 g/dL (3.5-5.0); Alkaline Phosphatase 190 U/L (38-126); Amylase 33 U/L (30-110); Anion Gap 10 mmol/L; Blood Urea Nitrogen 22 mg/dL (7-17); Calcium 10.1 mg/dL (8.4-10.2); Carbon Dioxide 20 mmol/L (22-30); Chloride 106 mmol/L (98-107); Glucose 365 mg/dL (74-99); Lipase 69 U/L (23-300); Non-African American GFR(CKD) 30 (>60 ml/min/1.73 sqM); Potassium 4.1 mmol/L (3.5-5.1); Sodium 136 mmol/L (137-145); Total Bilirubin 0.3 mg/dL (0.2-1.3); Total Protein 5.6 g/dL (6.3-8.2)
[2024-08-16 10:41] LABS: Platelet Count 591 k/uL (150-450)
[2024-08-16] MEDS: INSULIN REGULAR 100 UNIT/ML VIAL (IV) IV ONE (11:06)
[2024-08-16 11:10] VITALS: BP 178/94; PULSE 78
[2024-08-16 11:45] LABS: Glucose,Whole Blood 256 mg/dL (70-110)
== END 2024-08-16 11:52 | disposition home or self-care (01) ==
LOC: EC 07:58
CPT/HCPCS: 36415; 80053; 81001; 82150; 83605; 83690; 84484; 85025; 93005; 96374; 99284

== ENCOUNTER 2024-08-26 16:37 | Observation (INO) | payer OTHER ==
--- NOTE | 2024-08-26 17:02 | ED ---
General Adult HPI - General Chief complaint: Chest Pain Stated complaint: chest pain Time Seen by Provider: 08/26/24 16:41 Source: patient, EMS Mode of arrival: EMS - History of Present Illness Initial comments: Dictation was produced using [employer] dictation software. please excuse any grammatical, word or spelling errors. Chief Complaint: 54-year-old female chest pain History of Present Illness: Patient is 54-year-old female presents to the emergency department chest pain. Patient extensive cardiac history. States that she was at the [facility] office for routine visit. She was given eyedrops and immediately started to have some chest pressure. States that feels similar to heart attack she has had before. States that it is a pressure nondraining not associate diaphoresis or nausea. The ROS documented in this emergency department record has been reviewed and confirmed by me. Those systems with pertinent positive or negative responses have been documented in the HPI. All other systems are other negative and/or noncontributory. - Related Data Home Medications Medication Instructions Recorded Confirmed Aspirin [Adult Low Dose Aspirin EC] 81 mg PO HS 11/26/17 07/28/24 DULoxetine HCL [Cymbalta] 60 mg PO DAILY 08/25/18 07/28/24 Isosorbide Mononitrate ER [Imdur] 60 mg PO DAILY 09/08/18 07/28/24 Empagliflozin [Jardiance] 10 mg PO DAILY 10/06/22 07/28/24 Famotidine 20 mg PO BID PRN 10/06/22 07/28/24 Nitroglycerin Sl Tabs [Nitrostat] 0.4 mg SL Q5M PRN 10/06/22 07/28/24 Fenofibrate [Lofibra] 160 mg PO DAILY 01/25/23 07/28/24 Pregabalin [Lyrica] 150 mg PO BID 02/05/23 07/28/24 Budesonide/Formoterol Fumarate 2 puff INHALATION RT-BID PRN 07/17/23 07/28/24 [Symbicort 160-4.5 Mcg Inhaler] INSULIN LISPRO (For Pump) [humaLOG 0.01 units SQ-PUMP CONTINUOUS 07/17/23 07/28/24 (For Pump)] Atorvastatin [Lipitor] 40 mg PO HS 12/11/23 07/28/24 Magnesium Oxide [Mag-Ox] 400 mg PO BID 03/10/24 07/28/24 ALPRAZolam [Xanax] 1 mg PO TID PRN 03/28/24 07/28/24 Cinacalcet [Sensipar] 30 mg PO MOTUWETHFR 03/28/24 07/28/24 ARIPiprazole [Abilify] 10 mg PO HS 05/04/24 07/28/24 Ondansetron Odt [Zofran ODT] 8 mg PO Q12HR 05/04/24 07/28/24 Previous Rx's Medication Instructions Recorded Clopidogrel [Plavix] 75 mg PO DAILY 30 Days #30 tab 05/13/24 Cholecalciferol [Vitamin D3 (125 125 mcg PO DAILY 30 Days #30 tab 07/18/24 Mcg = 5000 Iu)] carvediloL [Coreg*] 25 mg PO BID-W/MEALS 30 Days #60 07/18/24 tab Losartan [Cozaar] 25 mg PO DAILY 30 Days #30 tab 07/30/24 Allergies Allergy/AdvReac Type Severity Reaction Status Date / Time Fish Containing Products Allergy Anaphylaxis Verified 08/26/24 16:55 Iodinated Contrast Media Allergy Anaphylaxis Verified 08/26/24 16:55 [Iodinated Contrast Media - IV Dye] Sulfa (Sulfonamide Allergy Anaphylaxis Verified 08/26/24 16:55 Antibiotics) sulfamethoxazole Allergy Anaphylaxis Verified 08/26/24 16:55 [From Septra] tree nut [Nut] Allergy Anaphylaxis Verified 08/26/24 16:55 trimethoprim [From Junra] Allergy Anaphylaxis Verified 08/26/24 16:55 Review of Systems ROS Statement: Those systems with pertinent positive or pertinent negative responses have been documented in the HPI. ROS Other: All systems not noted in ROS Statement are negative. 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 - slight foot drag when tired/neuropathies, MS, NV X 5, ABIGAIL with CPAP use, PAD/legs, R leg edema, past pancreatitis, NV 10/27/23 Last Myocardial Infarction Date:: LAST ONE 10/27/23 History of Any Multi-Drug Resistant Organisms: None Reported Past Surgical History: Section, Cholecystectomy, Heart Catheterization With Stent, Hysterectomy, Tubal Ligation, Uterine Ablation Additional Past Surgical History / Comment(s): vein stripping right leg, radio frequency ablation of right back-02/22/2015, four stents on 04/03/16 and one on march 05, ovaries removed, colonscopy- polyp removal Past Anesthesia/Blood Transfusion Reactions: Motion Sickness Additional Past Anesthesia/Blood Transfusion Reaction / Comment(s): mild claustrophobia Date of Last Stent Placement:: 04/03/16 Past Psychological History: Anxiety, Depression Smoking Status: Current some day smoker Past Alcohol Use History: None Reported Past Drug Use History: None Reported - Past Family History Father Family Medical History: Congestive Heart Failure (CHF), Coronary Artery Disease (CAD), Diabetes Mellitus Mother Family Medical History: Cancer, COPD, Hypertension, Respiratory Disorder Additional Family Medical History / Comment(s): emphysema, colon CA General Exam - General Exam Comments Initial Comments: PHYSICAL EXAM: General Impression: Alert and oriented x3, not in acute distress HEENT: Normocephalic atraumatic, extra-ocular movements intact, pupils equal and reactive to light bilaterally, mucous membranes moist. Cardiovascular: Heart regular rate and rhythm Chest: Able to complete full sentences, no retractions, no tachypnea Abdomen: abdomen soft, non-tender, non-distended, no organomegaly Musculoskeletal: Pulses present and equal in all extremities, no peripheral edema Motor: no focal deficits noted Neurological: CN II-XII grossly intact, no focal motor or sensory deficits noted Skin: Intact with no visualized rashes Psych: Normal affect and mood Course Vital Signs 08/26/24 08/26/24 16:50 18:30 Temperature 98.9 F Pulse Rate 89 87 Respiratory 18 18 Rate Blood Pressure 154/104 179/93 O2 Sat by Pulse 98 97 Oximetry EKG Findings - EKG Comments: EKG Findings:: My EKG interpretation: Ventricular rate 89, sinus rhythm, MO interval 175, cures 163, QTc 454. No MO prolongation, no QTC prolongation, no ST or T-wave changes noted. EKG compared to August 16 2024 showing no changes. Overall, this EKG is unremarkable Medical Decision Making - Medical Decision Making Was pt. sent in by a medical professional or institution (, PA, DISH MAKER, urgent care, hospital, or fdc...) When possible be specific @ -No Did you speak to anyone other than the patient for history (EMS, parent, family, police, friend...)? What history was obtained from this source @ -No Did you review nursing and triage notes (agree or disagree)? Why? @ -I reviewed and agree with nursing and triage notes Were old charts reviewed (outside hosp., previous admission, EMS record, old EKG, old radiological studies, urgent care reports/EKG's, fdc records)? Report findings @ -No old charts were reviewed Differential Diagnosis (chest pain, altered mental status, abdominal pain women, abdominal pain men, vaginal bleeding, musculoskeletal, weakness, fever, dyspnea, syncope, headache, dizziness, GI bleed, back pain, seizure, CVA, palpatations, mental health)? @ -Differential Chest Pain: Stable Angina, Unstable Angina, STEMI, NSTEMI Aortic Dissection, Pneumothorax, Musculoskeletal, Esophageal Spasm GERD, Cholecystitis, Pancreatitis, Zoster, th is is not meant to be an all-inclusive list. EKG interpreted by me (3pts min.). @ -See above X-rays interpreted by me (1pt min.). @ -Chest x-ray is unremarkable CT interpreted by me (1pt min.). @ -None done U/S interpreted by me (1pt. min.). @ -None done What testing was considered but not performed or refused? (CT, X-rays, U/S, labs)? Why? @ -None What meds were considered but not given or refused? Why? @ -None Was smoking cessation discussed for >3mins.? @ -No Were there social determinants of health that impacted care today? How? (Homelessness, low income, unemployed, alcoholism, drug addiction, transportation, low edu. Level, literacy, decrease access to med. care, nursing home, rehab)? @ -No Was there de-escalation of care discussed even if they declined (Discuss DNR or withdrawal of care, Hospice)? DNR status @ -No What co-morbidities impacted this encounter? (DM, HTN, Smoking, COPD, CAD, Cancer, CVA, ARF, Chemo, Hep., AIDS, mental health diagnosis, sleep apnea, morbid obesity)? @ -None Was patient admitted / discharged? Hospital course, mention meds given and route, prescriptions, significant lab abnormalities, going to OR and other pertinent info. @ -64-year-old female presents to the emergency department chest pain. Her symptoms are atypical typical features. Vital signs stable. Patient has significant risk. Laboratory evaluation obtained. Hyperglycemia 522 without any acidosis. Troponin 0.039 which is lower than her recent baseline. Did you discuss the management of the patient with other professionals (professionals i.e. , PA, DISH MAKER, lab, RT, psych nurse, social media intern, book agent, teacher, strike operations officer, rehabilitation caseworker)? Give summary @ -No Was critical care preformed (if so, how long)? @ -No Undiagnosed new problem with uncertain prognosis? @ -No Drug Therapy requiring intensive monitoring for toxicity (Heparin, Nitro, Insulin, Cardizem)? @ -No Were any procedures done? @ -No Diagnosis/symptom? Acute, or Chronic, or Acute on Chronic? Uncomplicated (without systemic symptoms) or Complicated (systemic symptoms)? @ -Chest pain Side effects of treatment? @ -No Exacerbation, Progression, or Severe Exacerbation? @ -No Poses a threat to life or bodily function? How? (Chest pain, USA, NV, pneumonia, PE, COPD, DKA, ARF, appy, cholecystitis, CVA, Diverticulitis, Homicidal, Suicidal, threat to staff... and all critical care pts) @ -yes - Lab Data Result diagrams: 08/26/24 17:19 08/26/24 17:19 Lab Results 08/26/24 08/26/24 08/26/24 Range/Units 17:19 17:19 17:19 WBC 12.8 H (3.8-10.6) k/uL RBC 4.23 (3.80-5.40) m/uL Hgb 12.3 (11.4-16.0) gm/dL Hct 39.2 (34.0-46.0) % MCV 92.6 (80.0-100.0) fL MCH 29.1 (25.0-35.0) pg MCHC 31.4 (31.0-37.0) g/dL RDW 16.3 H (11.5-15.5) % Plt Count 340 (150-450) k/uL MPV 9.8 Neutrophils % 70 % Lymphocytes % 24 % Monocytes % 4 % Eosinophils % 0 % Basophils % 1 % Neutrophils # 9.0 H (1.3-7.7) k/uL Lymphocytes # 3.1 (1.0-4.8) k/uL Monocytes # 0.5 (0-1.0) k/uL Eosinophils # 0.0 (0-0.7) k/uL Basophils # 0.1 (0-0.2) k/uL Hypochromasia Moderate Anisocytosis Slight PT 10.9 (10.0-12.5) sec INR 1.0 (<1.2) APTT 26.7 (22.0-30.0) sec Sodium 128 L (137-145) mmol/L Potassium 4.0 (3.5-5.1) mmol/L Chloride 101 (98-107) mmol/L Carbon Dioxide 20 L (22-30) mmol/L Anion Gap 7 mmol/L BUN 19 H (7-17) mg/dL Creatinine 1.65 H (0.52-1.04) mg/dL Est GFR (CKD-EPI)AfAm 41 (>60 ml/min/1.73 sqM) Est GFR (CKD-EPI)NonAf 35 (>60 ml/min/1.73 sqM) Glucose 522 H* (74-99) mg/dL POC Glucose (mg/dL) (70-110) mg/dL POC Glu Manager Billing ID Calcium 9.5 (8.4-10.2) mg/dL Magnesium 1.5 L (1.6-2.3) mg/dL Total Bilirubin 0.4 (0.2-1.3) mg/dL AST 14 (14-36) U/L ALT 12 (4-34) U/L Alkaline Phosphatase 212 H (38-126) U/L Troponin I (0.000-0.034) ng/mL Total Protein 5.1 L (6.3-8.2) g/dL Albumin 2.8 L (3.5-5.0) g/dL 08/26/24 08/26/24 Range/Units 17:19 18:38 WBC (3.8-10.6) k/uL RBC (3.80-5.40) m/uL Hgb (11.4-16.0) gm/dL Hct (34.0-46.0) % MCV (80.0-100.0) fL MCH (25.0-35.0) pg MCHC (31.0-37.0) g/dL RDW (11.5-15.5) % Plt Count (150-450) k/uL MPV Neutrophils % % Lymphocytes % % Monocytes % % Eosinophils % % Basophils % % Neutrophils # (1.3-7.7) k/uL Lymphocytes # (1.0-4.8) k/uL Monocytes # (0-1.0) k/uL Eosinophils # (0-0.7) k/uL Basophils # (0-0.2) k/uL Hypochromasia Anisocytosis PT (10.0-12.5) sec INR (<1.2) APTT (22.0-30.0) sec Sodium (137-145) mmol/L Potassium (3.5-5.1) mmol/L Chloride (98-107) mmol/L Carbon Dioxide (22-30) mmol/L Anion Gap mmol/L BUN (7-17) mg/dL Creatinine (0.52-1.04) mg/dL Est GFR (CKD-EPI)AfAm (>60 ml/min/1.73 sqM) Est GFR (CKD-EPI)NonAf (>60 ml/min/1.73 sqM) Glucose (74-99) mg/dL POC Glucose (mg/dL) 435 H (70-110) mg/dL POC Glu Manager Billing ID Merritt Avery Calcium (8.4-10.2) mg/dL Magnesium (1.6-2.3) mg/dL Total Bilirubin (0.2-1.3) mg/dL AST (14-36) U/L ALT (4-34) U/L Alkaline Phosphatase (38-126) U/L Troponin I 0.039 H* (0.000-0.034) ng/mL Total Protein (6.3-8.2) g/dL Albumin (3.5-5.0) g/dL Disposition Clinical Impression: Chest pain Disposition: ADMITTED IP TO THIS HOSP Condition: Fair Referrals: Dagmar Hennessy MD [Primary Care Provider] - 1-2 days Decision Time: 18:47
[2024-08-26] MEDS: ASPIRIN 81 MG PO STA (17:13)
[2024-08-26 17:29] LABS: Anisocytosis Slight; Basophils # (A) 0.1 k/uL (0-0.2); Basophils % (A) 1 %; Eosinophils % (A) 0 %; HCT 39.2 % (34.0-46.0); HGB 12.3 gm/dL (11.4-16.0); Hypochromasia Moderate; Lymphocytes # (A) 3.1 k/uL (1.0-4.8); Lymphocytes % (A) 24 %; MCH 29.1 pg (25.0-35.0); MCHC 31.4 g/dL (31.0-37.0); MCV 92.6 fL (80.0-100.0); Mean Platelet Volume 9.8; Monocytes # (A) 0.5 k/uL (0-1.0); Monocytes % (A) 4 %; Neutrophils % (A) 70 %; Platelet Count 340 k/uL (150-450); RBC 4.23 m/uL (3.80-5.40); RDW 16.3 % (11.5-15.5); WBC 12.8 k/uL (3.8-10.6)
[2024-08-26 17:39] LABS: ALT 12 U/L (4-34); AST 14 U/L (14-36); African American GFR (CKD) 41 (>60 ml/min/1.73 sqM); Albumin 2.8 g/dL (3.5-5.0); Alkaline Phosphatase 212 U/L (38-126); Anion Gap 7 mmol/L; Blood Urea Nitrogen 19 mg/dL (7-17); Calcium 9.5 mg/dL (8.4-10.2); Carbon Dioxide 20 mmol/L (22-30); Chloride 101 mmol/L (98-107); Magnesium 1.5 mg/dL (1.6-2.3); Non-African American GFR(CKD) 35 (>60 ml/min/1.73 sqM); Sodium 128 mmol/L (137-145); Total Bilirubin 0.4 mg/dL (0.2-1.3); Total Protein 5.1 g/dL (6.3-8.2)
[2024-08-26 17:45] LABS: Glucose 522 mg/dL (74-99); Partial Thromboplastin Time 26.7 sec (22.0-30.0); Prothrombin Time 10.9 sec (10.0-12.5)
--- NOTE | 2024-08-26 18:07 | XR ---
EXAMINATION TYPE: XR chest 2V DATE OF EXAM: 08/26/2024 COMPARISON: 07/28/2024 INDICATION: Chest pain TECHNIQUE: Frontal and lateral views of the chest are obtained. FINDINGS: The heart size is normal. The pulmonary vasculature is normal. The lungs are clear. IMPRESSION: 1. No acute pulmonary process. [facility], Workstation: [facility], 08/26/2024 6:04 PM
[2024-08-26] MEDS: SODIUM CHLORIDE 0.9% 1,000 ML IV STA (18:34)
[2024-08-26] MEDS: INSULIN REGULAR 100 UNIT/ML VIAL (IV) IV ONE (18:34)
[2024-08-26] MEDS ORDERED: NITROGLYCERIN SL TABS 0.4 MG TAB SUBLINGUAL PRN (18:39)
[2024-08-26 18:40] LABS: Glucose,Whole Blood 435 mg/dL (70-110)
[2024-08-26] MEDS: HYDROcodone/APAP 5-325MG 1 EACH TAB PO STA (20:15)
[2024-08-27 05:47] LABS: Glucose,Whole Blood 317 mg/dL (70-110)
[2024-08-27] MEDS ORDERED: ALPRAZolam 1 MG TAB PO PRN (07:09)
[2024-08-27] MEDS ORDERED: ALBUTEROL NEBULIZED 2.5 MG/3 ML INHALATION PRN (07:09)
[2024-08-27] MEDS ORDERED: FAMOTIDINE 20 MG TAB PO PRN (07:09)
[2024-08-27] MEDS ORDERED: NITROGLYCERIN SL TABS 0.4 MG TAB SUBLINGUAL PRN (07:09)
[2024-08-27] MEDS ORDERED: SYMBICORT 160-4.5 MCG INHALER INHALATION PRN (07:09)
[2024-08-27 07:22] LABS: Glucose,Whole Blood 336 mg/dL (70-110)
[2024-08-27 08:26] VITALS: PULSE 87; TEMP 97.6
[2024-08-27] MEDS: carvediloL 12.5 MG TAB PO SCH (08:26)
[2024-08-27] MEDS: CHOLECALCIFEROL 125 MCG (5000 IU) TABLET PO SCH (08:27)
[2024-08-27] MEDS: CLOPIDOGREL 75 MG TAB PO SCH (08:27)
[2024-08-27] MEDS: CINACALCET 30 MG TAB PO SCH (08:27)
[2024-08-27] MEDS: MAGNESIUM OXIDE 400 MG TAB PO SCH (08:28)
[2024-08-27] MEDS: ISOSORBIDE MONONITRATE ER 60 MG TAB.ER.24H PO SCH (08:28)
[2024-08-27] MEDS: DAPAGLIFLOZIN PROPANEDIOL 5 MG TABLET PO SCH (08:28)
[2024-08-27] MEDS: DULoxetine HCL 60 MG CAPSULE.DR PO SCH (08:28)
[2024-08-27] MEDS: FENOFIBRATE 160 MG TAB PO SCH (08:28)
[2024-08-27] MEDS: ONDANSETRON ODT 8 MG TAB.RAPDIS PO SCH (08:29)
[2024-08-27] MEDS: LOSARTAN 25 MG TAB PO SCH (08:29)
[2024-08-27] MEDS: PREGABALIN 75 MG CAP PO SCH (08:32)
[2024-08-27] MEDS ORDERED: ASPIRIN 325 MG TAB PO SCH (09:00)
[2024-08-27 09:17] LABS: Chol/HDL Ratio 6.53 Ratio; HDL Cholesterol 40.3 mg/dL (40.00-60.00); VLDL Calculation 85.6 mg/dL (5.00-40.00)
[2024-08-27] MEDS: INSULIN LISPRO (For Pump) 100 UNIT/ML VIAL SQ-PUMP SCH (11:21)
[2024-08-27 11:33] VITALS: BP 187/94; RESP 20
--- NOTE | 2024-08-27 11:43 | P.HPIM ---
History of Present Illness H&P Date: 08/27/24 Leticia Langley, is a 54-year-old female who presented to [facility] emergency room with a chief complaint of chest pain. She was evaluated in the emergency room vital examination on presentation revealed a temperature of 98.9 pulse 89 respiration 18 blood pressure 154/104 pulse ox 98% on room air Laboratory data revealed a white blood count of 12.8 hemoglobin 12.3 platelet count 340 sodium 128 potassium 4.0 chloride 101 CO2 20 BUN 19 creatinine 1.65 glucose level was 522 troponin level was 0.039 Testing in the emergency room revealed chest x-ray done in the emergency room r evealed no acute pulmonary process, EKG done in the emergency room revealed sinus rhythm with right bundle branch block and right anterior fascicular block Patient was admitted to medical floor for further evaluation and treatment Past medical history is significant for history of coronary artery disease, history of diabetes mellitus, history of chronic kidney disease, history of gastroesophageal reflux disease, history of hypertension, history of hyperlipidemia, previous history of DVT, history of peripheral arterial disease On review of systems patient is alert and oriented x 3 in no apparent distress she complains of episodes of chest pain on and off otherwise she denies any complaints at this time there is no fever or chills no headache or dizziness no palpitation no shortness of breath no cough no nausea or vomiting no abdominal pain no diarrhea no blood in the stools no burning with urination no frequency or urgency and no hematuria Past Medical History Past Medical History: Blood Disorder, Coronary Artery Disease (CAD), Cancer, Chest Pain / Angina, CVA/TIA, Diabetes Mellitus, Deep Vein Thrombosis (DVT), Fibromyalgia, GERD/Reflux, Hyperlipidemia, Hypertension, Myocardial Infarction (HI), Musculoskeletal Disorder, Neurologic Disorder, Renal Disease, Sleep Apnea/CPAP/BIPAP, Vascular Disorder Additional Past Medical History / Comment(s): IDDM type II, uterine/cervical and ovarian cancer, restless leg, Factor V blood disorder, DVT R leg, 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 - slight foot drag when tired/neuropathies, MS, HI X 5, ABIGAIL with CPAP use, PAD/legs, R leg edema, past pancreatitis, HI 09/29 11/19 Last Myocardial Infarction Date:: LAST ONE 10/27/23 History of Any Multi-Drug Resistant Organisms: None Reported Past Surgical History: Section, Cholecystectomy, Heart Catheterization With Stent, Hysterectomy, Tubal Ligation, Uterine Ablation Additional Past Surgical History / Comment(s): vein stripping right leg, radio frequency ablation of right back-02/22/2015, four stents on 04/03/16 and one on march 05, ovaries removed, colonscopy- polyp removal Past Anesthesia/Blood Transfusion Reactions: Motion Sickness Additional Past Anesthesia/Blood Transfusion Reaction / Comment(s): mild claustrophobia Date of Last Stent Placement:: 04/03/16 Past Psychological History: Anxiety, Depression Additional Psychological History / Comment(s): Pt resides with her spouse. She is mostly in her wheelchair. She has a walker and cane. She has a dexcom. Her spouse assists her with her medication organization. Spouse also drives pt. Smoking Status: Current some day smoker Past Alcohol Use History: None Reported Additional Past Alcohol Use History / Comment(s): Pt started smoking in 1988 and quit recently Past Drug Use History: None Reported - Past Family History Father Family Medical History: Congestive Heart Failure (CHF), Coronary Artery Disease (CAD), Diabetes Mellitus Mother Family Medical History: Cancer, COPD, Hypertension, Respiratory Disorder Additional Family Medical History / Comment(s): emphysema, colon CA Medications and Allergies Home Medications Medication Instructions Recorded Confirmed Type Aspirin [Adult Low Dose Aspirin EC] 81 mg PO HS 11/26/17 08/26/24 History DULoxetine HCL [Cymbalta] 60 mg PO DAILY 08/25/18 08/26/24 History Isosorbide Mononitrate ER [Imdur] 60 mg PO DAILY 09/08/18 08/26/24 History Empagliflozin [Jardiance] 10 mg PO DAILY 10/06/22 08/26/24 History Famotidine 20 mg PO BID PRN 10/06/22 08/26/24 History Nitroglycerin Sl Tabs [Nitrostat] 0.4 mg SL Q5M PRN 10/06/22 08/26/24 History Fenofibrate [Lofibra] 160 mg PO DAILY 01/25/23 08/26/24 History Pregabalin [Lyrica] 150 mg PO BID 02/05/23 08/26/24 History Budesonide/Formoterol Fumarate 2 puff INHALATION RT-BID PRN 07/17/23 08/26/24 History [Symbicort 160-4.5 Mcg Inhaler] INSULIN LISPRO (For Pump) [humaLOG 0.01 units SQ-PUMP CONTINUOUS 07/17/23 08/26/24 History (For Pump)] Atorvastatin [Lipitor] 40 mg PO HS 12/11/23 08/26/24 History Magnesium Oxide [Mag-Ox] 400 mg PO BID 03/10/24 08/26/24 History ALPRAZolam [Xanax] 1 mg PO TID PRN 03/28/24 08/26/24 History Cinacalcet [Sensipar] 30 mg PO MOTUWETHFR 03/28/24 08/26/24 History ARIPiprazole [Abilify] 10 mg PO HS 05/04/24 08/26/24 History Ondansetron Odt [Zofran ODT] 8 mg PO Q12HR 05/04/24 08/26/24 History Clopidogrel [Plavix] 75 mg PO DAILY 30 Days #30 tab 05/13/24 08/26/24 Rx Cholecalciferol [Vitamin D3 (125 125 mcg PO DAILY 30 Days #30 tab 07/18/24 08/26/24 Rx Mcg = 5000 Iu)] Losartan [Cozaar] 25 mg PO DAILY 30 Days #30 tab 07/30/24 08/26/24 Rx Albuterol Inhaler [Ventolin Hfa 2 puff INHALATION RT-Q6H PRN 08/26/24 08/26/24 History Inhaler] carvediloL [Coreg] 25 mg PO BID-W/MEALS 08/26/24 08/26/24 History Allergies Allergy/AdvReac Type Severity Reaction Status Date / Time Fish Containing Products Allergy Anaphylaxis Verified 08/26/24 16:55 Iodinated Contrast Media Allergy Anaphylaxis Verified 08/26/24 16:55 [Iodinated Contrast Media - IV Dye] Sulfa (Sulfonamide Allergy Anaphylaxis Verified 08/26/24 16:55 Antibiotics) sulfamethoxazole Allergy Anaphylaxis Verified 08/26/24 16:55 [From Septra] tree nut [Nut] Allergy Anaphylaxis Verified 08/26/24 16:55 trimethoprim [From Septra] Allergy Anaphylaxis Verified 08/26/24 16:55 Physical Exam Vitals: Vital Signs Temp Pulse Pulse Resp BP BP Pulse Ox 08/27/24 04:50 73 16 184/87 98 08/27/24 00:10 75 16 167/88 98 10/30/24 23:00 98.3 F 85 18 183/82 99 08/26/24 18:30 87 18 179/93 97 08/26/24 16:50 98.9 F 89 18 154/104 98 Intake and Output 08/26/24 08/27/24 08/27/24 22:59 06:59 14:59 Other: Voiding Method Bedside Commode Weight 92.986 kg In general patient is alert and oriented x 3 in no distress HEENT head normocephalic and atraumatic Neck is supple no JVD no goiter no lymphadenopathy no carotid bruit Chest examination is clear to auscultation no crackles no wheezing Cardiac exam reveals regular heart sounds S1 and S2 no gallops no murmurs Abdomen is soft nontender no organomegaly with normal bowel sounds Extremity exam reveals no edema no cyanosis or clubbing Neurological examination reveals no gross focal deficits Results CBC & Chem 7: 08/26/24 17:19 08/26/24 17:19 Labs: Abnormal Lab Results - Last 24 Hours (Table) 08/26/24 08/26/24 08/26/24 Range/Units 17:19 17:19 17:19 WBC 12.8 H (3.8-10.6) k/uL RDW 16.3 H (11.5-15.5) % Neutrophils # 9.0 H (1.3-7.7) k/uL Sodium 128 L (137-145) mmol/L Carbon Dioxide 20 L (22-30) mmol/L BUN 19 H (7-17) mg/dL Creatinine 1.65 H (0.52-1.04) mg/dL Glucose 522 H* (74-99) mg/dL POC Glucose (mg/dL) (70-110) mg/dL Magnesium 1.5 L (1.6-2.3) mg/dL Alkaline Phosphatase 212 H (38-126) U/L Troponin I 0.039 H* (0.000-0.034) ng/mL Total Protein 5.1 L (6.3-8.2) g/dL Albumin 2.8 L (3.5-5.0) g/dL 08/26/24 08/26/24 08/27/24 Range/Units 18:38 21:10 00:26 WBC (3.8-10.6) k/uL RDW (11.5-15.5) % Neutrophils # (1.3-7.7) k/uL Sodium (137-145) mmol/L Carbon Dioxide (22-30) mmol/L BUN (7-17) mg/dL Creatinine (0.52-1.04) mg/dL Glucose (74-99) mg/dL POC Glucose (mg/dL) 435 H (70-110) mg/dL Magnesium (1.6-2.3) mg/dL Alkaline Phosphatase (38-126) U/L Troponin I 0.039 H* 0.042 H* (0.000-0.034) ng/mL Total Protein (6.3-8.2) g/dL Albumin (3.5-5.0) g/dL 08/27/24 Range/Units 05:46 WBC (3.8-10.6) k/uL RDW (11.5-15.5) % Neutrophils # (1.3-7.7) k/uL Sodium (137-145) mmol/L Carbon Dioxide (22-30) mmol/L BUN (7-17) mg/dL Creatinine (0.52-1.04) mg/dL Glucose (74-99) mg/dL POC Glucose (mg/dL) 317 H (70-110) mg/dL Magnesium (1.6-2.3) mg/dL Alkaline Phosphatase (38-126) U/L Troponin I (0.000-0.034) ng/mL Total Protein (6.3-8.2) g/dL Albumin (3.5-5.0) g/dL Assessment and Plan Plan: Episode of chest pain Mildly elevated troponin level however patient had chronically elevated troponin level on multiple previous admissions Underlying history of diabetes mellitus type 2 Severe hyperglycemia on presentation with history of poor compliance with medication Hyponatremia on presentation Underlying history of coronary artery disease Underlying history of hypertension Underlying history of hyperlipidemia History of chronic tobacco abuse Previous history of DVT Underlying history of depression with anxiety disorder Underlying history of obstructive sleep apnea At this time patient was seen and examined Home medications reviewed and reordered Cardiology consultation requested Patient was counseled regarding smoking cessation Will follow closely
--- NOTE | 2024-08-27 12:08 | P.CRDCN ---
History of Present Illness History of present illness: HISTORY OF PRESENT ILLNESS: This is a 53-year-old female with a past medical history significant for hypertension, hyperlipidemia, diabetes, CAD with previous multivessel stenting, chronic kidney disease and bipolar disorder. Patient follows in the office with Dr. Jasso. We have been asked to see the patient in consultation for chest pain. Patient examined at the bedside in the emergency room. States she was at the eye doctor yesterday when she began to have chest discomfort. Patient states the pain is on the left side of her chest underneath her breast. However when she points to the pain she is pointing directly to her epigastric region. She denied any radiation of the pain. She also reports that she feels short of breath. She states that this feels different than the discomfort that she had in the past when she required stenting. Patient also gives history that she has been nauseated and vomiting for the past 2 weeks and has been unable to keep down any medications. The patient states that she has not sought any treatment for this. She is a current cigarette smoker. She reports smoking 1 pack of cigarettes every 2 weeks. It is noted that the patient was hospitalized in the beginning of July 2024 for chest discomfort. She underwent Lexiscan which revealed reversible ischemia involving inferior wall surrounded by remote insult. Dr. Mckeon evaluated patient at that time and reviewed Lexiscan images himself which he did not believe demonstrated reversible ischemia but did demonstrate diaphragmatic attenuation. No heart catheterization was recommended at that time. DIAGNOSTICS: - EKG reveals sinus mechanism with right bundle branch block. LVH. - Chest xray negative for acute process - Laboratory data: WBC 12.8. Hemoglobin 12.3. Platelet count 340. Sodium 128. Potassium 4.0. BUN 19. Creatinine 1.65. Glucose 522. Troponin 0.039. 0.039. 0.042. - Current home cardiac medications include carvedilol 25 mg twice a day, losartan 25 mg daily, Jardiance 10 mg daily, Plavix 75 mg daily, Lipitor 40 mg at night, aspirin 81 mg daily - Most recent echocardiogram obtained in May 2024 revealing ejection fraction 55 to 60%, severe LVH, mild mitral regurgitation, mild tricuspid regurgitation, mildly dilated aortic root. - Cardiac catheterization history: November 2023 revealing 60% mid RCA stenosis involving the previously stented segment. Patent stents within the RCA, LAD, and diagonal with moderate nonobstructive disease involving the LAD and the ostial portion of the diagonal branch. Patient underwent IFR of mid RCA by Dr. Mckeon which came to be an abnormal at 0.84. Given long area of prior stenting with increased long-term risk of restenosis, consider medical therapy. If patient having consistent angina would recommend staged PCI of RCA REVIEW OF SYSTEMS: At the time of my exam: CONSTITUTIONAL: Denies fever or chills. HEENT: Denies blurred vision, vision changes, or eye pain. Denies hemoptysis CARDIOVASCULAR: Denies chest pain. Denies orthopnea. Denies PND. Denies palpitations RESPIRATORY: Denies shortness of breath. GASTROINTESTINAL: Denies abdominal pain. Denies nausea or vomiting. HEMATOLOGIC: Denies bleeding disorders. GENITOURINARY: Denies any blood in urine. SKIN: Denies pruitis. Denies rash. PHYSICAL EXAM: VITAL SIGNS: Reviewed. GENERAL: Well-developed in no acute distress. HEENT: Head is normocephalic. Pupils are equal, round. Sclerae anicteric. Mucous membranes of the mouth are moist. Neck supple. No JVD or thyromegaly LUNGS: Respirations even and unlabored. Lungs essentially clear to auscultation bilaterally. HEART: Regular rate and rhythm. S1 and S2 heard. ABDOMEN: Soft. Nondistended. Tenderness with palpation EXTREMITIES: Normal range of motion. No clubbing or cyanosis. Peripheral pulses intact. No lower extremity edema NEUROLOGIC: Awake and alert. Oriented x 3. ASSESSMENT: Chest pain, more epigastric pain versus chest pain, appears GI related Nausea and vomiting x 2 weeks with ability to keep medications down, etiology unclear Hypertension Acute on chronic heart failure with preserved EF Recent hospitalization for right lower extremity cellulitis pneumonia and sepsis Coronary artery disease with previous multivessel stenting Chronic kidney disease History of TIA Severe left ventricular hypertrophy Chronically elevated troponins, flat, secondary to poor renal clearance/LVH, no evidence of myocardial injury or ischemia Hyperlipidemia Recent admissions for syncope and TIA PLAN: Resume home cardiac medications Patient with nausea and vomiting for 2 weeks with inability to keep any medications down Patient's pain is located in the upper abdomen and epigastric region, rather than chest pain Recommend GI workup before proceeding with any invasive cardiac procedures Further recommendations pending patient course Nurse practitioner note has been reviewed by physician. Signing provider agrees with the documented findings, assessment, and plan of care documented by MEDICAL TYPIST as a scribe. 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 - slight foot drag when tired/neuropathies, MS, UT X 5, ABIGAIL with CPAP use, PAD/legs, R leg edema, past pancreatitis, UT 10/27/23 Last Myocardial Infarction Date:: LAST ONE 10/27/23 History of Any Multi-Drug Resistant Organisms: None Reported Past Surgical History: Section, Cholecystectomy, Heart Catheterization With Stent, Hysterectomy, Tubal Ligation, Uterine Ablation Additional Past Surgical History / Comment(s): vein stripping right leg, radio frequency ablation of right back-02/22/2015, four stents on 04/03/16 and one on march 05, ovaries removed, colonscopy- polyp removal Past Anesthesia/Blood Transfusion Reactions: Motion Sickness Additional Past Anesthesia/Blood Transfusion Reaction / Comment(s): mild claustrophobia Date of Last Stent Placement:: 04/03/16 Past Psychological History: Anxiety, Depression Additional Psychological History / Comment(s): Pt resides with her spouse. She is mostly in her wheelchair. She has a walker and cane. She has a dexcom. Her spouse assists her with her medication organization. Spouse also drives pt. Smoking Status: Current some day smoker Past Alcohol Use History: None Reported Additional Past Alcohol Use History / Comment(s): Pt started smoking in 1988 and quit recently Past Drug Use History: None Reported - Past Family History Father Family Medical History: Congestive Heart Failure (CHF), Coronary Artery Disease (CAD), Diabetes Mellitus Mother Family Medical History: Cancer, COPD, Hypertension, Respiratory Disorder Additional Family Medical History / Comment(s): emphysema, colon CA Medications and Allergies Home Medications Medication Instructions Recorded Confirmed Type Aspirin [Adult Low Dose Aspirin EC] 81 mg PO HS 11/26/17 08/26/24 History DULoxetine HCL [Cymbalta] 60 mg PO DAILY 08/25/18 08/26/24 History Isosorbide Mononitrate ER [Imdur] 60 mg PO DAILY 09/08/18 08/26/24 History Empagliflozin [Jardiance] 10 mg PO DAILY 10/06/22 08/26/24 History Famotidine 20 mg PO BID PRN 10/06/22 08/26/24 History Nitroglycerin Sl Tabs [Nitrostat] 0.4 mg SL Q5M PRN 10/06/22 08/26/24 History Fenofibrate [Lofibra] 160 mg PO DAILY 01/25/23 08/26/24 History Pregabalin [Lyrica] 150 mg PO BID 02/05/23 08/26/24 History Budesonide/Formoterol Fumarate 2 puff INHALATION RT-BID PRN 07/17/23 08/26/24 History [Symbicort 160-4.5 Mcg Inhaler] INSULIN LISPRO (For Pump) [humaLOG 0.01 units SQ-PUMP CONTINUOUS 07/17/23 08/26/24 History (For Pump)] Atorvastatin [Lipitor] 40 mg PO HS 12/11/23 08/26/24 History Magnesium Oxide [Mag-Ox] 400 mg PO BID 03/10/24 08/26/24 History ALPRAZolam [Xanax] 1 mg PO TID PRN 03/28/24 08/26/24 History Cinacalcet [Sensipar] 30 mg PO MOTUWETHFR 03/28/24 08/26/24 History ARIPiprazole [Abilify] 10 mg PO HS 05/04/24 08/26/24 History Ondansetron Odt [Zofran ODT] 8 mg PO Q12HR 05/04/24 08/26/24 History Clopidogrel [Plavix] 75 mg PO DAILY 30 Days #30 tab 05/13/24 08/26/24 Rx Cholecalciferol [Vitamin D3 (125 125 mcg PO DAILY 30 Days #30 tab 07/18/24 08/26/24 Rx Mcg = 5000 Iu)] Losartan [Cozaar] 25 mg PO DAILY 30 Days #30 tab 07/30/24 08/26/24 Rx Albuterol Inhaler [Ventolin Hfa 2 puff INHALATION RT-Q6H PRN 08/26/24 08/26/24 History Inhaler] carvediloL [Coreg] 25 mg PO BID-W/MEALS 08/26/24 08/26/24 History Allergies Allergy/AdvReac Type Severity Reaction Status Date / Time Fish Containing Products Allergy Anaphylaxis Verified 08/26/24 16:55 Iodinated Contrast Media Allergy Anaphylaxis Verified 08/26/24 16:55 [Iodinated Contrast Media - IV Dye] Sulfa (Sulfonamide Allergy Anaphylaxis Verified 08/26/24 16:55 Antibiotics) sulfamethoxazole Allergy Anaphylaxis Verified 08/26/24 16:55 [From Junra] tree nut [Nut] Allergy Anaphylaxis Verified 08/26/24 16:55 trimethoprim [From ] Allergy Anaphylaxis Verified 08/26/24 16:55 Physical Exam Vitals: Vital Signs Temp Pulse Pulse Resp BP BP Pulse Ox 08/27/24 08:23 97.6 F 87 16 175/100 99 08/27/24 04:50 73 16 184/87 98 08/27/24 00:10 75 16 167/88 98 08/26/24 23:00 98.3 F 85 18 183/82 99 08/26/24 18:30 87 18 179/93 97 08/26/24 16:50 98.9 F 89 18 154/104 98 Intake and Output 08/26/24 08/27/24 08/27/24 22:59 06:59 14:59 Other: Voiding Method Bedside Commode Weight 92.986 kg Results 08/26/24 17:19 08/26/24 17:19 Cardiac Enzymes 08/26/24 08/26/24 08/26/24 Range/Units 17:19 17:19 21:10 AST 14 (14-36) U/L Troponin I 0.039 H* 0.039 H* (0.000-0.034) ng/mL 08/27/24 Range/Units 00:26 AST (14-36) U/L Troponin I 0.042 H* (0.000-0.034) ng/mL Coagulation 08/26/24 Range/Units 17:19 PT 10.9 (10.0-12.5) sec APTT 26.7 (22.0-30.0) sec CBC 08/26/24 Range/Units 17:19 WBC 12.8 H (3.8-10.6) k/uL RBC 4.23 (3.80-5.40) m/uL Hgb 12.3 (11.4-16.0) gm/dL Hct 39.2 (34.0-46.0) % Plt Count 340 (150-450) k/uL Comprehensive Metabolic Panel 08/26/24 Range/Units 17:19 Sodium 128 L (137-145) mmol/L Potassium 4.0 (3.5-5.1) mmol/L Chloride 101 (98-107) mmol/L Carbon Dioxide 20 L (22-30) mmol/L BUN 19 H (7-17) mg/dL Creatinine 1.65 H (0.52-1.04) mg/dL Glucose 522 H* (74-99) mg/dL Calcium 9.5 (8.4-10.2) mg/dL AST 14 (14-36) U/L ALT 12 (4-34) U/L Alkaline Phosphatase 212 H (38-126) U/L Total Protein 5.1 L (6.3-8.2) g/dL Albumin 2.8 L (3.5-5.0) g/dL Current Medications Generic Name Dose Route Start Last Admin Trade Name Freq PRN Reason Stop Dose Admin Albuterol Sulfate 2.5 mg 08/27/24 07:09 Albuterol Nebulized 2.5 Mg/3 Ml INHALATION RT-Q6H PRN Shortness Of Breath Alprazolam 1 mg 08/27/24 07:09 Alprazolam 1 Mg Tab PO TID PRN Anxiety Aripiprazole 10 mg 08/27/24 21:00 Aripiprazole 10 Mg Tab PO HS SARAHY Aspirin 81 mg 08/27/24 21:00 Aspirin 81 Mg PO HS SARAHY Atorvastatin Calcium 40 mg 08/27/24 21:00 Atorvastatin 40 Mg Tab PO HS SARAHY Budesonide/Formoterol Fumarate 2 puff 08/27/24 07:09 Symbicort 160-4.5 Mcg Inhaler INHALATION RT-BID PRN COPD Carvedilol 25 mg 08/27/24 07:30 08/27/24 08:26 Carvedilol 12.5 Mg Tab PO 25 mg BID-W/MEALS SARAHY Administration Cholecalciferol 125 mcg 08/27/24 09:00 08/27/24 08:27 Cholecalciferol 125 Mcg (5000 Iu) Tablet PO 125 mcg DAILY SARAHY Administration Cinacalcet 30 mg 08/27/24 09:00 08/27/24 08:27 Cinacalcet 30 Mg Tab PO 30 mg MOTUWETHFR [facility] Administration Clopidogrel Bisulfate 75 mg 08/27/24 09:00 08/27/24 08:27 Clopidogrel 75 Mg Tab PO 75 mg DAILY SARAHY Administration Dapagliflozin 5 mg 08/27/24 09:00 08/27/24 08:28 Dapagliflozin Propanediol 5 Mg Tablet PO 5 mg DAILY SARAHY Administration Duloxetine HCl 60 mg 08/27/24 09:00 08/27/24 08:28 Duloxetine Hcl 60 Mg Capsule.Dr PO 60 mg DAILY SARAHY Administration Famotidine 20 mg 08/27/24 07:09 Famotidine 20 Mg Tab PO BID PRN acid reflux Fenofibrate 160 mg 08/27/24 09:00 08/27/24 08:28 Fenofibrate 160 Mg Tab PO 160 mg DAILY SARAHY Administration Insulin Human Lispro 0.01 unit 08/27/24 07:15 Insulin Lispro (For Pump) 100 Unit/Ml Vial SQ-PUMP CONTINUOUS [facility] Isosorbide Mononitrate 60 mg 08/27/24 09:00 08/27/24 08:28 Isosorbide Mononitrate Er 60 Mg Tab.Er.24h PO 60 mg DAILY SARAHY Administration Losartan Potassium 25 mg 08/27/24 09:00 08/27/24 08:29 Losartan 25 Mg Tab PO 25 mg DAILY [facility] Administration Magnesium Oxide 400 mg 08/27/24 09:00 08/27/24 08:28 Magnesium Oxide 400 Mg Tab PO 400 mg BID SARAHY Administration Nitroglycerin 0.4 mg 08/26/24 18:39 Nitroglycerin Sl Tabs 0.4 Mg Tab SUBLINGUAL Q5M PRN Chest Pain Nitroglycerin 0.4 mg 08/27/24 07:09 Nitroglycerin Sl Tabs 0.4 Mg Tab SUBLINGUAL Q5M PRN Chest Pain Ondansetron HCl 8 mg 08/27/24 09:00 08/27/24 08:29 Ondansetron Odt 8 Mg Tab.Rapdis PO 8 mg Q12HR SARAHY Administration Pregabalin 150 mg 08/27/24 09:00 08/27/24 08:32 Pregabalin 75 Mg Cap PO 150 mg BID [facility] Administration Intake and Output 08/26/24 08/27/24 08/27/24 22:59 06:59 14:59 Other: Voiding Method Bedside Commode Weight 92.986 kg 08/26/24 17:19 08/26/24 17:19
[2024-08-27] MEDS ORDERED: ARIPiprazole 10 MG TAB PO SCH (21:00)
[2024-08-27] MEDS ORDERED: ATORVASTATIN 40 MG TAB PO SCH (21:00)
[2024-08-27] MEDS ORDERED: ASPIRIN 81 MG PO SCH (21:00)
--- NOTE | 2024-09-02 12:26 | P.DS ---
Providers Date of admission: 08/26/24 18:46 Expected date of discharge: 08/27/24 Attending physician: Evin Sanchez Consults: 08/26/24 18:39 Consult Physician Urgent Consulting Provider: Javon Cano Consult Reason/Comments: chest pain Do you want consulting provider notified?: Yes Primary care physician: Dagmar Hennessy [facility] Course: Discharge diagnosis Episode of chest pain Mildly elevated troponin level however patient had chronically elevated troponin level on multiple previous admissions Underlying history of diabetes mellitus type 2 Severe hyperglycemia on presentation with history of poor compliance with medication Hyponatremia on presentation Underlying history of coronary artery disease Underlying history of hypertension Underlying history of hyperlipidemia History of chronic tobacco abuse Previous history of DVT Underlying history of depression with anxiety disorder Underlying history of obstructive sleep apnea Hospital course Leticia Langley, is a 54-year-old female who presented to [facility] emergency room with a chief complaint of chest pain. She was evaluated in the emergency room vital examination on presentation revealed a temperature of 98.9 pulse 89 respiration 18 blood pressure 154/104 pulse ox 98% on room air Laboratory data revealed a white blood count of 12.8 hemoglobin 12.3 platelet count 340 sodium 128 potassium 4.0 chloride 101 CO2 20 BUN 19 creatinine 1.65 glucose level was 522 troponin level was 0.039 Testing in the emergency room revealed chest x-ray done in the emergency room revealed no acute pulmonary process, EKG done in the emergency room revealed sinus rhythm with right bundle branch block and right anterior fascicular block Patient was admitted to medical floor for further evaluation and treatment Past medical history is significant for history of coronary artery disease, history of diabetes mellitus, history of chronic kidney disease, history of gastroesophageal reflux disease, history of hypertension, history of hyperlipidemia, previous history of DVT, history of peripheral arterial disease On review of systems patient is alert and oriented x 3 in no apparent distress she complains of episodes of chest pain on and off otherwise she denies any complaints at this time there is no fever or chills no headache or dizziness no palpitation no shortness of breath no cough no nausea or vomiting no abdominal pain no diarrhea no blood in the stools no burning with urination no frequency or urgency and no hematuria According to records patient left AGAINST MEDICAL ADVICE Plan - Discharge Summary New Discharge Prescriptions: No Action Aspirin [Adult Low Dose Aspirin EC] 81 mg PO HS DULoxetine HCL [Cymbalta] 60 mg PO DAILY Isosorbide Mononitrate ER [Imdur] 60 mg PO DAILY Famotidine 20 mg PO BID PRN PRN Reason: acid reflux Nitroglycerin Sl Tabs [Nitrostat] 0.4 mg SL Q5M PRN PRN Reason: Chest Pain Pregabalin [Lyrica] 150 mg PO BID INSULIN LISPRO (For Pump) [humaLOG (For Pump)] 0.01 units SQ-PUMP CONTINUOUS Atorvastatin [Lipitor] 40 mg PO HS ALPRAZolam [Xanax] 1 mg PO TID PRN PRN Reason: Anxiety Ondansetron Odt [Zofran ODT] 8 mg PO Q12HR Cholecalciferol [Vitamin D3 (125 Mcg = 5000 Iu)] 125 mcg PO DAILY 30 Days #30 tab Losartan [Cozaar] 25 mg PO DAILY 30 Days #30 tab Albuterol Inhaler [Ventolin Hfa Inhaler] 2 puff INHALATION RT-Q6H PRN PRN Reason: Shortness Of Breath Empagliflozin [Jardiance] 10 mg PO DAILY Fenofibrate [Lofibra] 160 mg PO DAILY Budesonide/Formoterol Fumarate [Symbicort 160-4.5 Mcg Inhaler] 2 puff INHALATION RT-BID PRN PRN Reason: COPD Magnesium Oxide [Mag-Ox] 400 mg PO BID Cinacalcet [Sensipar] 30 mg PO MOTUWETHFR ARIPiprazole [Abilify] 10 mg PO HS Clopidogrel [Plavix] 75 mg PO DAILY 30 Days #30 tab carvediloL [Coreg] 25 mg PO BID-W/MEALS Discharge Medication List Aspirin [Adult Low Dose Aspirin EC] 81 mg PO HS 11/26/17 [History] DULoxetine HCL [Cymbalta] 60 mg PO DAILY 08/25/18 [History] Isosorbide Mononitrate ER [Imdur] 60 mg PO DAILY 09/08/18 [History] Empagliflozin [Jardiance] 10 mg PO DAILY 10/06/22 [History] Famotidine 20 mg PO BID PRN 10/06/22 [History] Nitroglycerin Sl Tabs [Nitrostat] 0.4 mg SL Q5M PRN 10/06/22 [History] Fenofibrate [Lofibra] 160 mg PO DAILY 01/25/23 [History] Pregabalin [Lyrica] 150 mg PO BID 02/05/23 [History] Budesonide/Formoterol Fumarate [Symbicort 160-4.5 Mcg Inhaler] 2 puff INHALATION RT-BID PRN 07/17/23 [History] INSULIN LISPRO (For Pump) [humaLOG (For Pump)] 0.01 units SQ-PUMP CONTINUOUS 07/17/23 [History] Atorvastatin [Lipitor] 40 mg PO HS 12/11/23 [History] Magnesium Oxide [Mag-Ox] 400 mg PO BID 03/10/24 [History] ALPRAZolam [Xanax] 1 mg PO TID PRN 03/28/24 [History] Cinacalcet [Sensipar] 30 mg PO MOTUWETHFR 03/28/24 [History] ARIPiprazole [Abilify] 10 mg PO HS 05/04/24 [History] Ondansetron Odt [Zofran ODT] 8 mg PO Q12HR 05/04/24 [History] Clopidogrel [Plavix] 75 mg PO DAILY 30 Days #30 tab 05/13/24 [Rx] Cholecalciferol [Vitamin D3 (125 Mcg = 5000 Iu)] 125 mcg PO DAILY 30 Days #30 tab 07/18/24 [Rx] Losartan [Cozaar] 25 mg PO DAILY 30 Days #30 tab 07/30/24 [Rx] Albuterol Inhaler [Ventolin Hfa Inhaler] 2 puff INHALATION RT-Q6H PRN 08/26/24 [History] carvediloL [Coreg] 25 mg PO BID-W/MEALS 08/26/24 [History] Follow up Appointment(s)/Referral(s): Dagmar Hennessy MD [Primary Care Provider] - 1-2 days Discharge Disposition: LEFT AGAINST MEDICAL ADVICE
== END 2024-08-27 11:30 | disposition left against medical advice (07) ==
LOC: EC 16:37 → 6NMEDSUR 18:46 → 3SCARD 22:14
PROVIDERS: ADMIT Internal Medicine; ATTEND Internal Medicine
DX: R07.89 Other chest pain (principal); R79.89 Other specified abnormal findings of blood chemistry; E11.65 Type 2 diabetes mellitus with hyperglycemia; I13.0 Hypertensive heart and chronic kidney disease with heart failure and stage 1 through stage 4 chronic kidney disease, or unspecified chronic kidney disease; I50.33 Acute on chronic diastolic (congestive) heart failure; N18.9 Chronic kidney disease, unspecified; I45.0 Right fascicular block; I45.10 Unspecified right bundle-branch block; E87.1 Hypo-osmolality and hyponatremia; K21.9 Gastro-esophageal reflux disease without esophagitis; E78.5 Hyperlipidemia, unspecified; I25.10 Atherosclerotic heart disease of native coronary artery without angina pectoris; I08.1 Rheumatic disorders of both mitral and tricuspid valves; E11.51 Type 2 diabetes mellitus with diabetic peripheral angiopathy without gangrene; F17.210 Nicotine dependence, cigarettes, uncomplicated; E11.22 Type 2 diabetes mellitus with diabetic chronic kidney disease; G47.33 Obstructive sleep apnea (adult) (pediatric); F41.9 Anxiety disorder, unspecified; F31.9 Bipolar disorder, unspecified; Z53.29 Procedure and treatment not carried out because of patient's decision for other reasons; I25.2 Old myocardial infarction; Z79.82 Long term (current) use of aspirin; Z79.84 Long term (current) use of oral hypoglycemic drugs; Z79.4 Long term (current) use of insulin; Z79.899 Other long term (current) drug therapy; Z79.02 Long term (current) use of antithrombotics/antiplatelets; Z88.2 Allergy status to sulfonamides; Z88.1 Allergy status to other antibiotic agents; Z91.041 Radiographic dye allergy status; Z91.018 Allergy to other foods; Z86.19 Personal history of other infectious and parasitic diseases; Z96.41 Presence of insulin pump (external) (internal); Z86.73 Personal history of transient ischemic attack (TIA), and cerebral infarction without residual deficits; Z86.718 Personal history of other venous thrombosis and embolism; Z95.5 Presence of coronary angioplasty implant and graft; Z71.6 Tobacco abuse counseling
CPT/HCPCS: 96360; 96361; 99285; 36415; 93005; 80061; 80053; 83735; 84484 ×2; 85025; 85610; 85730; 83721; 71046; G0378 ×3

== ENCOUNTER 2024-10-18 11:16 | Emergency (ER) | payer OTHER ==
[2024-10-18 11:25] VITALS: TEMP 98.9
--- NOTE | 2024-10-18 11:48 | ED ---
Extremity Problem HPI - General Chief complaint: Extremity Problem,Nontraumatic Stated complaint: R knee pain Time Seen by Provider: 10/18/24 11:47 Source: patient, family, RN notes reviewed, old records reviewed Mode of arrival: wheelchair Limitations: physical limitation - History of Present Illness Initial comments: 54-year-old female presented to the ER for evaluation of right lateral knee pain. Patient reports she was recently released from rehabilitation due to CVAs. She states for the past 5 days she has been endorsing a posterolateral right knee pain. She states the pain is so bad she is having difficulty bearing weight and ambulating. She denies any known injuries or traumas. She does state the past couple days she has been walking more than normal. At rehab patient was given Leon 7.5 for pain control. Patient reports a history of blood clots but is not currently on any blood thinning medications. She denies any chest pain, shortness of breath, fevers or other complaints. No paresthesias to right lower extremity. - Related Data Home Medications Medication Instructions Recorded Confirmed Aspirin [Adult Low Dose Aspirin EC] 81 mg PO HS 11/26/17 08/26/24 DULoxetine HCL [Cymbalta] 60 mg PO DAILY 08/25/18 08/26/24 Isosorbide Mononitrate ER [Imdur] 60 mg PO DAILY 09/08/18 08/26/24 Empagliflozin [Jardiance] 10 mg PO DAILY 10/06/22 08/26/24 Famotidine 20 mg PO BID PRN 10/06/22 08/26/24 Nitroglycerin Sl Tabs [Nitrostat] 0.4 mg SL Q5M PRN 10/06/22 08/26/24 Fenofibrate [Lofibra] 160 mg PO DAILY 01/25/23 08/26/24 Pregabalin [Lyrica] 150 mg PO BID 02/05/23 08/26/24 Budesonide/Formoterol Fumarate 2 puff INHALATION RT-BID PRN 07/17/23 08/26/24 [Symbicort 160-4.5 Mcg Inhaler] INSULIN LISPRO (For Pump) [humaLOG 0.01 units SQ-PUMP CONTINUOUS 07/17/23 08/26/24 (For Pump)] Atorvastatin [Lipitor] 40 mg PO HS 12/11/23 08/26/24 Magnesium Oxide [Mag-Ox] 400 mg PO BID 03/10/24 08/26/24 ALPRAZolam [Xanax] 1 mg PO TID PRN 03/28/24 08/26/24 Cinacalcet [Sensipar] 30 mg PO MOTUWETHFR 03/28/24 08/26/24 ARIPiprazole [Abilify] 10 mg PO HS 05/04/24 08/26/24 Ondansetron Odt [Zofran ODT] 8 mg PO Q12HR 05/04/24 08/26/24 Albuterol Inhaler [Ventolin Hfa 2 puff INHALATION RT-Q6H PRN 08/26/24 08/26/24 Inhaler] carvediloL [Coreg] 25 mg PO BID-W/MEALS 08/26/24 08/26/24 Previous Rx's Medication Instructions Recorded Clopidogrel [Plavix] 75 mg PO DAILY 30 Days #30 tab 05/13/24 Cholecalciferol [Vitamin D3 (125 125 mcg PO DAILY 30 Days #30 tab 07/18/24 Mcg = 5000 Iu)] Losartan [Cozaar] 25 mg PO DAILY 30 Days #30 tab 07/30/24 Allergies Allergy/AdvReac Type Severity Reaction Status Date / Time Fish Containing Products Allergy Anaphylaxis Verified 10/18/24 11:19 Iodinated Contrast Media Allergy Anaphylaxis Verified 10/18/24 11:19 [Iodinated Contrast Media - IV Dye] Sulfa (Sulfonamide Allergy Anaphylaxis Verified 10/18/24 11:19 Antibiotics) sulfamethoxazole Allergy Anaphylaxis Verified 10/18/24 11:19 [From Septra] tree nut [Nut] Allergy Anaphylaxis Verified 10/18/24 11:19 trimethoprim [From Septra] Allergy Anaphylaxis Verified 10/18/24 11:19 Review of Systems ROS Statement: Those systems with pertinent positive or pertinent negative responses have been documented in the HPI. ROS Other: All systems not noted in ROS Statement are negative. 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 - slight foot drag when tired/neuropathies, MS, IA X 5, ABIGAIL with CPAP use, PAD/legs, R leg edema, past pancreatitis, IA 10/27/23 Last Myocardial Infarction Date:: LAST ONE 10/27/23 History of Any Multi-Drug Resistant Organisms: None Reported Past Surgical History: Section, Cholecystectomy, Heart Catheterization With Stent, Hysterectomy, Tubal Ligation, Uterine Ablation Additional Past Surgical History / Comment(s): vein stripping right leg, radio frequency ablation of right back-02/22/2015, four stents on 04/03/16 and one on march 05, ovaries removed, colonscopy- polyp removal Past Anesthesia/Blood Transfusion Reactions: Motion Sickness Additional Past Anesthesia/Blood Transfusion Reaction / Comment(s): mild claustrophobia Date of Last Stent Placement:: 04/03/16 Past Psychological History: Anxiety, Depression Smoking Status: Current every day smoker Past Alcohol Use History: None Reported Past Drug Use History: None Reported - Past Family History Father Family Medical History: Congestive Heart Failure (CHF), Coronary Artery Disease (CAD), Diabetes Mellitus Mother Family Medical History: Cancer, COPD, Hypertension, Respiratory Disorder Additional Family Medical History / Comment(s): emphysema, colon CA General Exam Limitations: physical limitation General appearance: alert, in no apparent distress Respiratory exam: Present: normal lung sounds bilaterally. Absent: respiratory distress, wheezes, rales, rhonchi, stridor Cardiovascular Exam: Present: regular rate, normal rhythm, normal heart sounds. Absent: systolic murmur, diastolic murmur, rubs, gallop, clicks Extremities exam: Present: calf tenderness (Bilateral calfs are tight and tender. The right is mildly erythematous. No wounds. Patient has full range of motion of right lower extremity. DP and PT pulse heard with Doppler bilaterally) Neurological exam: Present: alert, oriented X3, CN II-XII intact Skin exam: Present: warm, dry, intact, normal color. Absent: rash Course Vital Signs 10/18/24 10/18/24 11:20 13:14 Temperature 98.9 F Pulse Rate 89 95 Respiratory 18 16 Rate Blood Pressure 201/85 185/87 O2 Sat by Pulse 97 92 L Oximetry Medical Decision Making - Medical Decision Making Was pt. sent in by a medical professional or institution (, DENNIS, SYSTEMS TEST TECHNICIAN, urgent care, hospital, or skilled nursing...) When possible be specific @ -No Did you speak to anyone other than the patient for history (EMS, parent, family, police, friend...)? What history was obtained from this source @ -Patient's , at bedside, aiding in HPI and past medical history. Did you review nursing and triage notes (agree or disagree)? Why? @ -I reviewed and agree with nursing and triage notes Were old charts reviewed (outside hosp., previous admission, EMS record, old EKG, old radiological studies, urgent care reports/EKG's, skilled nursing records)? Report findings @ -No old charts were reviewed Differential Diagnosis (chest pain, altered mental status, abdominal pain women, abdominal pain men, vaginal bleeding, weakness, fever, dyspnea, syncope, headache, dizziness, GI bleed, back pain, seizure, CVA, palpatations, mental health, musculoskeletal)? @ -Differential Musculoskeletal: Muscular strain, contusion, ligament sprain, fracture, arthritis, septic arthritis, bursitis, cellulitis, muscle spasm, nerve compression, DVT, arterial occlusion, herpes zoster, electrolyte abnormality, tumor.... This is not meant to be in all inclusive list EKG interpreted by me (3pts min.). @ -None done X-rays interpreted by me (1pt min.). @ -Right knee x-ray interpreted by me negative for acute fractures or dislocations. CT interpreted by me (1pt min.). @ -None done U/S interpreted by me (1pt. min.). @ -Ultrasound venous Doppler right lower extremity negative for acute evidence of DVT. What testing was considered but not performed or refused? (CT, X-rays, U/S, labs)? Why? @ -None What meds were considered but not given or refused? Why? @ -None Did you discuss the management of the patient with other professionals (professionals i.e. DENNIS Mayo, SYSTEMS TEST TECHNICIAN, lab, RT, psych nurse, long term care social worker, parish visitor, teacher, deputy probation officer, continuous pillowcase cutter)? Give summary @ -No Was smoking cessation discussed for >3mins.? @ -No Was critical care preformed (if so, how long)? @ -No Were there social determinants of health that impacted care today? How? (Homelessness, low income, unemployed, alcoholism, drug addiction, transportation, low edu. Level, literacy, decrease access to med. care, [facility], rehab)? @ -No Was there de-escalation of care discussed even if they declined (Discuss DNR or withdrawal of care, Hospice)? DNR status @ -No What co-morbidities impacted this encounter? (DM, HTN, Smoking, COPD, CAD, Cancer, CVA, ARF, Chemo, Hep., AIDS, mental health diagnosis, sleep apnea, morbid obesity)? @ -History of CVA, obese, diabetic, hypertension Was patient admitted / discharged? Hospital course, mention meds given and route, prescriptions, significant lab abnormalities, going to OR and other pertinent info. @ -Discharge. 54-year-old female presented to ER for evaluation of right knee pain. History and physical exam completed. Upon evaluation, patient is hypertensive at 201/85 but states she has not taken her blood pressure medications this morning. Vitals otherwise stable. Patient is neuro vastly intact. There is a tight cast with mild erythema to the right noted. Ultrasound will be obtained to rule out DVT given these findings. Ultrasound negative for acute evidence of DVT. X-ray negative for acute evidence of fractures or dislocations. Patient received p.o. Leon 7.5 for pain control in the ER, with improvement. Patient is stable for discharge upon reevaluation. I instructed her to take blood pressure medications as soon as she get home. Conservative treatment options discussed. Strict return parameters discussed. Patient discharged in stable condition with follow-up to PCP. Patient verbally expressed understanding and agreement with care plan. Case discussed with ED attending, Dr. Sena. Undiagnosed new problem with uncertain prognosis? @ -No Drug Therapy requiring intensive monitoring for toxicity (Heparin, Nitro, Insulin, Cardizem)? @ -No Were any procedures done? @ -No Diagnosis/symptom? @ -Knee pain Acute, or Chronic, or Acute on Chronic? @ -Acute Uncomplicated (without systemic symptoms) or Complicated (systemic symptoms)? @ -Uncomplicated Side effects of treatment? @ -No Exacerbation, Progression, or Severe Exacerbation? @ -No Poses a threat to life or bodily function? How? (Chest pain, USA, IA, pneumonia, PE, COPD, DKA, ARF, appy, cholecystitis, CVA, Diverticulitis, Homicidal, Suicidal, threat to staff... and all critical care pts) @ -No - Radiology Data Radiology results: report reviewed, image reviewed Disposition Clinical Impression: Knee pain Disposition: HOME SELF-CARE Condition: Stable Instructions (If sedation given, give patient instructions): Knee Pain (ED) Additional Instructions: Take your prescribed blood pressure medications as soon as you get home. Follow-up with PCP. Recommending [id number] ibuprofen and Tylenol for pain control. Return to the ER for any new or worsening concerns. Is patient prescribed a controlled substance at d/c from ED?: No Referrals: Dagmar Hennessy MD [Primary Care Provider] - 1-2 days Time of Disposition: 13:35
[2024-10-18] MEDS: HYDROcodone/APAP 7.5-325MG 1 EACH TAB PO ONE (11:50)
--- NOTE | 2024-10-18 13:13 | US ---
EXAMINATION TYPE: US venous doppler duplex LE RT DATE OF EXAM: 10/18/2024 12:44 PM COMPARISON: NONE CLINICAL INDICATION: Female, 54 years old with history of posterior knee pain atraumatic; Pain, Pain TECHNIQUE: The lower extremity deep venous system is examined utilizing real time linear array sonog mahsa with graded compression, color doppler sonography, and spectral doppler. SIDE PERFORMED: Right FINDINGS: VESSELS IMAGED: Common Femoral Vein Deep Femoral Vein Greater Saphenous Vein * Femoral Vein Popliteal Vein Small Saphenous Vein * Proximal Calf Veins (* superficial vessels) Right Leg: Negative for DVT, Color Doppler imaging shows patency of the vessels. Spectral waveforms are within normal limits. IMPRESSION: No ultrasound evidence for deep venous thrombosis. [facility], , 10/18/2024 1:11 PM
[2024-10-18 13:15] VITALS: BP 185/87; PULSE 95; RESP 16
--- NOTE | 2024-10-18 13:28 | XR ---
EXAMINATION TYPE: XR knee complete RT DATE OF EXAM: 10/18/2024 1:24 PM COMPARISON: None CLINICAL INDICATION: Female, 54 years old with history of lateral pain; PHH, pain TECHNIQUE: XR knee complete RT XX views submitted. FINDINGS: No evidence of any acute osseous pathology, soft tissue swelling, or joint effusion is no madelyn. Tricompartmental osteophyte formation involving the femoral condyles, tibial plateau and patella . Mild joint space narrowing. Atherosclerosis of the arterial vasculature. A fabella is present. IMPRESSION: 1. No acute osseous pathology. 2. Mild to moderate tricompartmental osteoarthritic changes. [facility], , 10/18/2024 1:26 PM
== END 2024-10-18 13:47 | disposition home or self-care (01) ==
LOC: EC 11:16
DX: M25.561 Pain in right knee (principal); E11.9 Type 2 diabetes mellitus without complications; I10 Essential (primary) hypertension; Z86.73 Personal history of transient ischemic attack (TIA), and cerebral infarction without residual deficits; E66.9 Obesity, unspecified; F17.200 Nicotine dependence, unspecified, uncomplicated; Z88.2 Allergy status to sulfonamides; Z91.013 Allergy to seafood; Z91.041 Radiographic dye allergy status; Z88.8 Allergy status to other drugs, medicaments and biological substances
CPT/HCPCS: 99284

== ENCOUNTER → 2024-11-02 | Outpatient (CLI) | payer OTHER ==
[2024-11-02 22:35] LABS: ALT 13 U/L (8-44); AST 16 U/L (13-35); Albumin 3.5 g/dL (3.8-4.9); Albumin/Globulin Ratio 1.59 Ratio (1.60-3.17); Alkaline Phosphatase 160 U/L (41-126); BUN/Creat Ratio 13.11 Ratio (12.00-20.00); Blood Urea Nitrogen 24.9 mg/dL (9.0-27.0); Calcium 10.4 mg/dL (8.7-10.3); Carbon Dioxide 23.3 mmol/L (21.6-31.8); Chloride 102 mmol/L (96-109); Globulin 2.2 g/dL (1.6-3.3); Glucose 154 mg/dL (70-110); Magnesium 1.7 mg/dL (1.5-2.4); Phosphorus 3.7 mg/dL (2.4-5.1); Potassium 4.4 mmol/L (3.5-5.5); Sodium 137 mmol/L (135-145); Total Bilirubin <0.2 mg/dL (0.3-1.2); Total Protein 5.7 g/dL (6.2-8.2)
[2024-11-02 23:14] LABS: % Iron Saturation 14.24 (12.00-45.00); HCT 37.8 % (37.2-46.3); HGB 11.6 g/dL (12.0-15.0); Iron 49 UG/DL (50-170); MCH 26.5 pg (27.0-32.0); MCHC 30.7 g/dL (32.0-37.0); MCV 86.3 FL (80.0-97.0); NRBC Per 100 WBC 0 X 10*3/uL (0.00-0.01); Platelet Count 511 X 10*3/uL (140-440); RBC 4.38 X 10*6/uL (4.10-5.20); RDW 17.3 % (11.5-14.5); Total Iron Binding Capacity 344 UG/DL (228-460); WBC 15.09 X 10*3/uL (4.50-10.00)
[2024-11-02 23:15] LABS: Ferritin 34.2 ng/mL (10.0-291.0)
== END | disposition home or self-care (01) ==
LOC: LABWHC1 16:13
PROVIDERS: ATTEND Internal Medicine Nephrology
DX: E55.9 Vitamin D deficiency, unspecified (principal); D64.9 Anemia, unspecified; N25.81 Secondary hyperparathyroidism of renal origin; N18.32 Chronic kidney disease, stage 3b; R80.9 Proteinuria, unspecified
CPT/HCPCS: 36415; 80053; 82306; 82728; 83540; 83550; 83735; 83970; 84100; 85027

== ENCOUNTER 2024-11-08 01:58 | Emergency (ER) | payer OTHER ==
[2024-11-08 02:02] VITALS: TEMP 98.9
--- NOTE | 2024-11-08 02:08 | ED ---
Female Urogenital HPI - General Source: patient Mode of arrival: wheelchair Limitations: no limitations <Jean-Claude Cavanaugh - Last Filed: 11/08/24 16:19> - General Source: patient, RN notes reviewed, old records reviewed Mode of arrival: wheelchair Limitations: no limitations - History of Present Illness MD Complaint: other (Pain) Severity: moderate Severity scale (1-10): 4 Quality: sharp Consistency: constant <Sudhir Chowdary - Last Filed: 11/08/24 21:42> - General Chief complaint: Urogenital Stated complaint: Urogenital Time Seen by Provider: 11/08/24 02:07 - History of Present Illness Initial comments: 54-year-old female presenting with chief complaint of urinary incontinence. This started this evening. As she was falling asleep she felt herself urinating. She is having some discomfort in her right sided lower back. No left-sided discomfort. No loss of bowel control. Patient states that she has history of a stroke and has diminished sensation to the right leg at baseline. She does not notice any numbness over the left inner thigh or genitals. No nausea, vomiting, abdominal pain, fever, chills, dysuria, hematuria. (Jean-Claude Escamilla) 54-year-old female to ER with urinary incontinence and back pain (Sudhir Chowdary) - Related Data Home Medications Medication Instructions Recorded Confirmed Aspirin [Adult Low Dose Aspirin EC] 81 mg PO HS 11/26/17 08/26/24 DULoxetine HCL [Cymbalta] 60 mg PO DAILY 08/25/18 08/26/24 Isosorbide Mononitrate ER [Imdur] 60 mg PO DAILY 09/08/18 08/26/24 Empagliflozin [Jardiance] 10 mg PO DAILY 10/06/22 08/26/24 Famotidine 20 mg PO BID PRN 10/06/22 08/26/24 Nitroglycerin Sl Tabs [Nitrostat] 0.4 mg SL Q5M PRN 10/06/22 08/26/24 Fenofibrate [Lofibra] 160 mg PO DAILY 01/25/23 08/26/24 Pregabalin [Lyrica] 150 mg PO BID 02/05/23 08/26/24 Budesonide/Formoterol Fumarate 2 puff INHALATION RT-BID PRN 07/17/23 08/26/24 [Symbicort 160-4.5 Mcg Inhaler] INSULIN LISPRO (For Pump) [humaLOG 0.01 units SQ-PUMP CONTINUOUS 07/17/23 08/26/24 (For Pump)] Atorvastatin [Lipitor] 40 mg PO HS 12/11/23 08/26/24 Magnesium Oxide [Mag-Ox] 400 mg PO BID 03/10/24 08/26/24 ALPRAZolam [Xanax] 1 mg PO TID PRN 03/28/24 08/26/24 Cinacalcet [Sensipar] 30 mg PO MOTUWETHFR 03/28/24 08/26/24 ARIPiprazole [Abilify] 10 mg PO HS 05/04/24 08/26/24 Ondansetron Odt [Zofran ODT] 8 mg PO Q12HR 05/04/24 08/26/24 Albuterol Inhaler [Ventolin Hfa 2 puff INHALATION RT-Q6H PRN 08/26/24 08/26/24 Inhaler] carvediloL [Coreg] 25 mg PO BID-W/MEALS 08/26/24 08/26/24 Previous Rx's Medication Instructions Recorded Clopidogrel [Plavix] 75 mg PO DAILY 30 Days #30 tab 05/13/24 Cholecalciferol [Vitamin D3 (125 125 mcg PO DAILY 30 Days #30 tab 07/18/24 Mcg = 5000 Iu)] Losartan [Cozaar] 25 mg PO DAILY 30 Days #30 tab 07/30/24 Allergies Allergy/AdvReac Type Severity Reaction Status Date / Time Fish Containing Products Allergy Anaphylaxis Verified 11/08/24 02:02 Iodinated Contrast Media Allergy Anaphylaxis Verified 11/08/24 02:02 [Iodinated Contrast Media - IV Dye] Sulfa (Sulfonamide Allergy Anaphylaxis Verified 11/08/24 02:02 Antibiotics) sulfamethoxazole Allergy Anaphylaxis Verified 11/08/24 02:02 [From Septra] tree nut [Nut] Allergy Anaphylaxis Verified 11/08/24 02:02 trimethoprim [From Septra] Allergy Anaphylaxis Verified 11/08/24 02:02 Review of Systems ROS Other: All systems not noted in ROS Statement are negative. <Jean-Claude Cavanaugh - Last Filed: 11/08/24 16:19> ROS Other: All systems not noted in ROS Statement are negative. <Sudhir Chowdary - Last Filed: 11/08/24 21:42> ROS Statement: Those systems with pertinent positive or pertinent negative responses have been documented in the HPI. 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 - slight foot drag when tired/neuropathies, MS, OR X 5, ABIGAIL with CPAP use, PAD/legs, R leg edema, past pancreatitis, OR 10/27/23 Last Myocardial Infarction Date:: LAST ONE 10/27/23 History of Any Multi-Drug Resistant Organisms: None Reported Past Surgical History: Section, Cholecystectomy, Heart Catheterization With Stent, Hysterectomy, Tubal Ligation, Uterine Ablation Additional Past Surgical History / Comment(s): vein stripping right leg, radio frequency ablation of right back-02/22/2015, four stents on 04/03/16 and one on march 05, ovaries removed, colonscopy- polyp removal Past Anesthesia/Blood Transfusion Reactions: Motion Sickness Additional Past Anesthesia/Blood Transfusion Reaction / Comment(s): mild claustrophobia Date of Last Stent Placement:: 04/03/16 Past Psychological History: Anxiety, Depression Smoking Status: Current every day smoker Past Alcohol Use History: None Reported Past Drug Use History: None Reported - Past Family History Father Family Medical History: Congestive Heart Failure (CHF), Coronary Artery Disease (CAD), Diabetes Mellitus Mother Family Medical History: Cancer, COPD, Hypertension, Respiratory Disorder Additional Family Medical History / Comment(s): emphysema, colon CA <Jean-Claude Cavanaugh - Last Filed: 11/08/24 16:19> General Exam Limitations: no limitations General appearance: alert, in no apparent distress Head exam: Present: atraumatic, normocephalic, normal inspection Eye exam: Present: normal appearance, EOMI Neck exam: Present: normal inspection. Absent: meningismus Respiratory exam: Absent: respiratory distress Cardiovascular Exam: Present: regular rate Rectal exam: Present: decreased rectal tone Extremities exam: Present: normal inspection Back exam: Present: normal inspection, tenderness Neurological exam: Present: alert, oriented X3 Psychiatric exam: Present: normal affect, normal mood Skin exam: Present: warm, dry <Jean-Claude Cavanaugh - Last Filed: 11/08/24 16:19> General appearance: alert, in no apparent distress Head exam: Present: atraumatic, normocephalic, normal inspection Eye exam: Present: normal appearance, PERRL, EOMI. Absent: scleral icterus, conjunctival injection, periorbital swelling ENT exam: Present: normal exam, mucous membranes moist Neck exam: Present: normal inspection. Absent: tenderness, meningismus, lymphadenopathy Respiratory exam: Present: normal lung sounds bilaterally. Absent: respiratory distress, wheezes, rales, rhonchi, stridor Cardiovascular Exam: Present: regular rate, normal rhythm, normal heart sounds. Absent: systolic murmur, diastolic murmur, rubs, gallop, clicks GI/Abdominal exam: Present: soft, normal bowel sounds. Absent: distended, tende rness, guarding, rebound, rigid Extremities exam: Present: normal inspection, full ROM, normal capillary refill. Absent: tenderness, pedal edema, joint swelling, calf tenderness Back exam: Present: normal inspection Neurological exam: Present: alert, oriented X3, CN II-XII intact Psychiatric exam: Present: normal affect, normal mood Skin exam: Present: warm, dry, intact, normal color. Absent: rash <Sudhir Chowdary - Last Filed: 11/08/24 21:42> - General Exam Comments Initial Comments: Visual Physical Exam Vital signs reviewed General: Well-appearing, nontoxic, no acute distress. Head: Normocephalic, atraumatic Eyes: PERRLA, EOMI ENT: Airway patent Chest: Nonlabored breathing Skin: No visual rash, normal skin tone Neuro: Alert and oriented 3 Musculoskeletal: No gross abnormalities (Jean-Claude Cavanaugh) Course <Sudhir Chowdary - Last Filed: 11/08/24 21:42> Vital Signs 11/08/24 11/08/24 02:00 06:30 Temperature 98.9 F Pulse Rate 92 73 Respiratory 16 17 Rate Blood Pressure 151/88 159/81 O2 Sat by Pulse 99 90 L Oximetry - Reevaluation(s) Reevaluation #1: 11/08/24 06:22 Medical records reviewed (Sudhir Chowdary) Reevaluation #2: 11/08/24 06:22 Patient's pain is controlled Is able to ambulate without difficulty, no significant neurological deficit noted prior to discharge (Sudhir Chowdary) Medical Decision Making - Lab Data Result diagrams: 11/08/24 03:15 11/08/24 03:15 <Jean-Claude Cavanaugh - Last Filed: 11/08/24 16:19> - Lab Data Result diagrams: 11/08/24 03:15 11/08/24 03:15 - Radiology Data Radiology results: report reviewed (CT pelvis CT sacrum negative for acute disease), image reviewed <Sudhir Chowdary - Last Filed: 11/08/24 21:42> - Medical Decision Making Was pt. sent in by a medical professional or institution (, PA, APARTMENT LEASING CONSULTANT, urgent care, hospital, or [facility]...) When possible be specific @ -No Did you speak to anyone other than the patient for history (EMS, parent, family, police, friend...)? What history was obtained from this source @ -No Did you review nursing and triage notes (agree or disagree)? Why? @ -I reviewed and agree with nursing and triage notes Were old charts reviewed (outside hosp., previous admission, EMS record, old EKG, old radiological studies, urgent care reports/EKG's, [facility] records)? Report findings @ -No old charts were reviewed Differential Diagnosis (chest pain, altered mental status, abdominal pain women, abdominal pain men, vaginal bleeding, weakness, fever, dyspnea, syncope, headache, dizziness, GI bleed, back pain, seizure, CVA, palpatations, mental health, musculoskeletal)? @ -Differential includes age-related changes, cauda equina, UTI, this is not an all-inclusive list EKG interpreted by me (3pts min.). @ -As above X-rays interpreted by me (1pt min.). @ -None done CT interpreted by me (1pt min.). @ -None done U/S interpreted by me (1pt. min.). @ -None done What testing was considered but not performed or refused? (CT, X-rays, U/S, labs)? Why? @ -None What meds were considered but not given or refused? Why? @ -None Did you discuss the management of the patient with other professionals (professionals i.e. , PA, APARTMENT LEASING CONSULTANT, lab, RT, psych nurse, social worker masters, casting inspector, teacher, escrow officer, case work aide)? Give summary @ -No Was smoking cessation discussed for >3mins.? @ -No Was critical care preformed (if so, how long)? @ -No Were there social determinants of health that impacted care today? How? (Homelessness, low income, unemployed, alcoholism, drug addiction, transportation, low edu. Level, literacy, decrease access to med. care, assisted, rehab)? @ -No Was there de-escalation of care discussed even if they declined (Discuss DNR or withdrawal of care, Hospice)? DNR status @ -No What co-morbidities impacted this encounter? (DM, HTN, Smoking, COPD, CAD, Cancer, CVA, ARF, Chemo, Hep., AIDS, mental health diagnosis, sleep apnea, morbid obesity)? @ -None Was patient admitted / discharged? Hospital course, mention meds given and route, prescriptions, significant lab abnormalities, going to OR and other p ertinent info. @ -54-year-old female presenting with chief complaint of urinary incontinence that started this evening. She is complaining of some right-sided back pain as well. History and physical examination are conducted. WBC 10.8. BUN 28 creatinine 2.07, this is chronic for the patient. CRP is WNL. Urine negative for UTI. CT of the lumbar spine and pelvis are obtained, report is pending. Patient is signed out to my attending Dr. Chowdary Undiagnosed new problem with uncertain prognosis? @ -No Drug Therapy requiring intensive monitoring for toxicity (Heparin, Nitro, Insulin, Cardizem)? @ -No Were any procedures done? @ -No Diagnosis/symptom? @ -Default Acute, or Chronic, or Acute on Chronic? @ -Default Uncomplicated (without systemic symptoms) or Complicated (systemic symptoms)? @ -Default Side effects of treatment? @ -No Exacerbation, Progression, or Severe Exacerbation? @ -No Poses a threat to life or bodily function? How? (Chest pain, USA, OR, pneumonia, PE, COPD, DKA, ARF, appy, cholecystitis, CVA, Diverticulitis, Homicidal, Suicidal, threat to staff... and all critical care pts) @ -No (Jean-Claude Cavanaugh) 54 female to the ER for evaluation of back pain urinary incontinence, no acute cause found patient can be discharged home (Sudhir Chowdary) - Lab Data Lab Results 11/08/24 11/08/24 11/08/24 Range/Units 02:34 03:15 03:15 WBC 10.8 H (3.8-10.6) k/uL RBC 3.96 (3.80-5.40) m/uL Hgb 10.9 L (11.4-16.0) gm/dL Hct 33.7 L (34.0-46.0) % MCV 85.1 (80.0-100.0) fL MCH 27.6 (25.0-35.0) pg MCHC 32.4 (31.0-37.0) g/dL RDW 17.4 H (11.5-15.5) % Plt Count 324 (150-450) k/uL MPV 9.1 Neutrophils % 61 % Lymphocytes % 31 % Monocytes % 4 % Eosinophils % 2 % Basophils % 1 % Neutrophils # 6.6 (1.3-7.7) k/uL Lymphocytes # 3.3 (1.0-4.8) k/uL Monocytes # 0.4 (0-1.0) k/uL Eosinophils # 0.2 (0-0.7) k/uL Basophils # 0.1 (0-0.2) k/uL Anisocytosis Slight Sodium 134 L (137-145) mmol/L Potassium 4.3 (3.5-5.1) mmol/L Chloride 100 (98-107) mmol/L Carbon Dioxide 24 (22-30) mmol/L Anion Gap 10 mmol/L BUN 28 H (7-17) mg/dL Creatinine 2.07 H (0.52-1.04) mg/dL Est GFR (CKD-EPI)AfAm 31 (>60 ml/min/1.73 sqM) Est GFR (CKD-EPI)NonAf 27 (>60 ml/min/1.73 sqM) Glucose 280 H (74-99) mg/dL Calcium 10.1 (8.4-10.2) mg/dL Total Bilirubin 0.2 (0.2-1.3) mg/dL AST 17 (14-36) U/L ALT 14 (4-34) U/L Alkaline Phosphatase 180 H (38-126) U/L C-Reactive Protein 0.9 (<1.0) mg/dL Total Protein 5.4 L (6.3-8.2) g/dL Albumin 3.2 L (3.5-5.0) g/dL Urine Color Colorless Urine Appearance Clear (Clear) Urine pH 6.5 (5.0-8.0) Ur Specific [place] 1.019 (1.001-1.035) Urine Protein 3+ H (Negative) Urine Glucose (UA) 4+ H (Negative) Urine Ketones Negative (Negative) Urine Blood Small H (Negative) Urine Nitrite Negative (Negative) Urine Bilirubin Negative (Negative) Urine Urobilinogen <2.0 (<2.0) mg/dL Ur Leukocyte Esterase Negative (Negative) Urine WBC 2 (0-5) /hpf Ur Squamous Epith Cells 1 (0-4) /hpf Urine Mucus Rare H (None) /hpf Disposition <Jean-Claude Cavanaugh - Last Filed: 11/08/24 16:19> Is patient prescribed a controlled substance at d/c from ED?: No Time of Disposition: 06:15 <Sudhir Chowdary - Last Filed: 11/08/24 21:42> Clinical Impression: Weakness, Back pain Disposition: HOME SELF-CARE Condition: Fair Instructions (If sedation given, give patient instructions): Back Pain (ED) Referrals: Dagmar Hennessy MD [Primary Care Provider] - 1-2 days
[2024-11-08 02:52] LABS: Appearance,Urine Clear (Clear); Bilirubin,Urine Negative (Negative); Blood,Urine Small (Negative); Color,Urine Colorless; Glucose,Urine (UA) 4+ (Negative); Ketones,Urine Negative (Negative); Leukocyte Esterase,Urine Negative (Negative); Mucus,Urine Rare /hpf; Nitrite,Urine Negative (Negative); PH, Urine 6.5 (5.0-8.0); Protein,Urine 3+ (Negative); Specific Gravity,Urine 1.019 (1.001-1.035); Squamous Epithelial Cell,Urine 1 /hpf (0-4); Urobilinogen,Urine <2.0 mg/dL (<2.0); WBC,Urine 2 /hpf (0-5)
[2024-11-08 03:32] LABS: Anisocytosis Slight; Basophils # (A) 0.1 k/uL (0-0.2); Basophils % (A) 1 %; Eosinophils # (A) 0.2 k/uL (0-0.7); Eosinophils % (A) 2 %; HCT 33.7 % (34.0-46.0); HGB 10.9 gm/dL (11.4-16.0); Lymphocytes # (A) 3.3 k/uL (1.0-4.8); Lymphocytes % (A) 31 %; MCH 27.6 pg (25.0-35.0); MCHC 32.4 g/dL (31.0-37.0); MCV 85.1 fL (80.0-100.0); Mean Platelet Volume 9.1; Monocytes # (A) 0.4 k/uL (0-1.0); Monocytes % (A) 4 %; Neutrophils # (A) 6.6 k/uL (1.3-7.7); Neutrophils % (A) 61 %; Platelet Count 324 k/uL (150-450); RBC 3.96 m/uL (3.80-5.40); RDW 17.4 % (11.5-15.5); WBC 10.8 k/uL (3.8-10.6)
[2024-11-08 03:36] LABS: ALT 14 U/L (4-34); AST 17 U/L (14-36); African American GFR (CKD) 31 (>60 ml/min/1.73 sqM); Albumin 3.2 g/dL (3.5-5.0); Alkaline Phosphatase 180 U/L (38-126); Anion Gap 10 mmol/L; Blood Urea Nitrogen 28 mg/dL (7-17); C Reactive Protein 0.9 mg/dL (<1.0); Calcium 10.1 mg/dL (8.4-10.2); Carbon Dioxide 24 mmol/L (22-30); Chloride 100 mmol/L (98-107); Glucose 280 mg/dL (74-99); Non-African American GFR(CKD) 27 (>60 ml/min/1.73 sqM); Potassium 4.3 mmol/L (3.5-5.1); Sodium 134 mmol/L (137-145); Total Bilirubin 0.2 mg/dL (0.2-1.3); Total Protein 5.4 g/dL (6.3-8.2)
--- NOTE | 2024-11-08 04:45 | CT ---
EXAM: CT Lumbar Spine Without Intravenous Contrast CLINICAL HISTORY: ITS.REASON CT Reason: back pain, loss of bladder control TECHNIQUE: Axial computed tomography images of the lumbar spine without intravenous contrast. CTDI is 30 mGy and DLP is 1095 mGy-cm. This CT exam was performed using one or more of the following dose reduction techniques: automated exposure control, adjustment of the mA and/or kV according to patient size, and/or use of iterative reconstruction technique. COMPARISON: No relevant prior studies available. FINDINGS: Vertebrae: No acute fracture. No sagittal subluxation. Discs/spinal canal/neural foramina: No significant spinal canal stenosis. Soft tissues: No hydronephrosis or nephrolithiasis. IMPRESSION: No acute fracture.
[2024-11-08] MEDS: DEXAMETHASONE SOD PHOSPHATE 10 MG/ML 1 ML VIAL IV STA (04:57)
[2024-11-08] MEDS: HYDROmorphone 1 MG/ML 1 ML SYRINGE IVP STA (04:58)
[2024-11-08 06:31] VITALS: BP 159/81; PULSE 73; RESP 17
--- NOTE | 2024-11-08 08:05 | CT ---
EXAMINATION TYPE: CT pelvis wo con DATE OF EXAM: 11/08/2024 4:12 AM COMPARISON: 10/29/2023 CLINICAL INDICATION: Female, 54 years old with history of back pain, incontinence, incontinence TECHNIQUE: Contrast used: mL of , (none if empty) Oral contrast used: (none if empty) Axial images 3 mm thick sections. Reconstructed images in the coronal and sagittal plane. FINDINGS: Vascular calcifications within the distal aorta within the iliac vessels. The bowel without contrast appear unremarkable. Appendix is normal. No suspicious ureteral or urinary bladder calcifications nico ntified. Urinary bladder appears normal. Uterus and ovaries are not identified. The lower lumbar spine including the L3-4 disc level through L5-S1 appears normal. No spinal canal st enosis is evident. Consider follow-up MRI lumbar spine with contrast. IMPRESSION: 1. NO SUSPICIOUS ABNORMALITY TO ACCOUNT FOR LOW BACK PAIN OR INCONTINENCE. [facility], , 11/08/2024 8:03 AM
== END 2024-11-08 06:55 | disposition home or self-care (01) ==
LOC: EC 01:58
DX: R53.1 Weakness (principal); M54.9 Dorsalgia, unspecified; F17.200 Nicotine dependence, unspecified, uncomplicated; Z86.73 Personal history of transient ischemic attack (TIA), and cerebral infarction without residual deficits; Z88.2 Allergy status to sulfonamides; Z91.041 Radiographic dye allergy status; Z91.018 Allergy to other foods; Z91.013 Allergy to seafood
CPT/HCPCS: 36415; 80053; 85025; 86140; 81001; 72192; 72131; 99284; 96374; 96375; J1100; J1171

== ENCOUNTER 2024-11-20 12:38 | Emergency (ER) | payer OTHER ==
[2024-11-20 12:44] VITALS: PULSE 76; RESP 20; TEMP 97.8
[2024-11-20 12:55] LABS: Glucose,Whole Blood 309 mg/dL (70-110)
--- NOTE | 2024-11-20 12:59 | ED ---
General Adult HPI - General Chief complaint: Weakness Stated complaint: weakness Time Seen by Provider: 11/20/24 12:47 Source: patient, EMS Mode of arrival: EMS Limitations: no limitations - History of Present Illness Initial comments: Dictation was produced using [email or web address] dictation software. please excuse any grammatical, word or spelling errors. Chief Complaint: 54-year-old female presents with weakness History of Present Illness: Patient is a 54-year-old female brought in to the emergency department by EMS. EMS was called by patient's who presents at the bedside. states that patient was really weak today. States that she feels weak all over. She has a history of stroke with right-sided flaccid paralysis and paresthesias. States that that feels about normal. Denies any fever, chills or night sweats. Patient states that she just feels sleepy. No obvious sick contacts. No pain complaints. The ROS documented in this emergency department record has been reviewed and confirmed by me. Those systems with pertinent positive or negative responses have been documented in the HPI. All other systems are other negative and/or noncontributory. - Related Data Home Medications Medication Instructions Recorded Confirmed Aspirin [Adult Low Dose Aspirin EC] 81 mg PO HS 11/26/17 08/26/24 DULoxetine HCL [Cymbalta] 60 mg PO DAILY 08/25/18 08/26/24 Isosorbide Mononitrate ER [Imdur] 60 mg PO DAILY 09/08/18 08/26/24 Empagliflozin [Jardiance] 10 mg PO DAILY 10/06/22 08/26/24 Famotidine 20 mg PO BID PRN 10/06/22 08/26/24 Nitroglycerin Sl Tabs [Nitrostat] 0.4 mg SL Q5M PRN 10/06/22 08/26/24 Fenofibrate [Lofibra] 160 mg PO DAILY 01/25/23 08/26/24 Pregabalin [Lyrica] 150 mg PO BID 02/05/23 08/26/24 Budesonide/Formoterol Fumarate 2 puff INHALATION RT-BID PRN 07/17/23 08/26/24 [Symbicort 160-4.5 Mcg Inhaler] INSULIN LISPRO (For Pump) [humaLOG 0.01 units SQ-PUMP CONTINUOUS 07/17/23 08/26/24 (For Pump)] Atorvastatin [Lipitor] 40 mg PO HS 12/11/23 08/26/24 Magnesium Oxide [Mag-Ox] 400 mg PO BID 03/10/24 08/26/24 ALPRAZolam [Xanax] 1 mg PO TID PRN 03/28/24 08/26/24 Cinacalcet [Sensipar] 30 mg PO MOTUWETHFR 03/28/24 08/26/24 ARIPiprazole [Abilify] 10 mg PO HS 05/04/24 08/26/24 Ondansetron Odt [Zofran ODT] 8 mg PO Q12HR 05/04/24 08/26/24 Albuterol Inhaler [Ventolin Hfa 2 puff INHALATION RT-Q6H PRN 08/26/24 08/26/24 Inhaler] carvediloL [Coreg] 25 mg PO BID-W/MEALS 08/26/24 08/26/24 Previous Rx's Medication Instructions Recorded Clopidogrel [Plavix] 75 mg PO DAILY 30 Days #30 tab 05/13/24 Cholecalciferol [Vitamin D3 (125 125 mcg PO DAILY 30 Days #30 tab 07/18/24 Mcg = 5000 Iu)] Losartan [Cozaar] 25 mg PO DAILY 30 Days #30 tab 07/30/24 Allergies Allergy/AdvReac Type Severity Reaction Status Date / Time Fish Containing Products Allergy Anaphylaxis Verified 11/20/24 12:43 Iodinated Contrast Media Allergy Anaphylaxis Verified 11/20/24 12:43 [Iodinated Contrast Media - IV Dye] Sulfa (Sulfonamide Allergy Anaphylaxis Verified 11/20/24 12:43 Antibiotics) sulfamethoxazole Allergy Anaphylaxis Verified 11/20/24 12:43 [From Septra] tree nut [Nut] Allergy Anaphylaxis Verified 11/20/24 12:43 trimethoprim [From Septra] Allergy Anaphylaxis Verified 11/20/24 12:43 Review of Systems ROS Statement: Those systems with pertinent positive or pertinent negative responses have been documented in the HPI. ROS Other: All systems not noted in ROS Statement are negative. Past Medical History Past Medical History: Blood Disorder, Coronary Artery Disease (CAD), Cancer, Chest Pain / Angina, CVA/TIA, Diabetes Mellitus, Deep Vein Thrombosis (DVT), Fibromyalgia, GERD/Reflux, Hyperlipidemia, Hypertension, Myocardial Infarction (VA), Musculoskeletal Disorder, Neurologic Disorder, Renal Disease, Sleep Apne a/CPAP/BIPAP, Vascular Disorder Additional Past Medical History / Comment(s): IDDM type II, uterine/cervical and ovarian cancer, restless leg, Factor V blood disorder, DVT R leg, 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 - slight foot drag when tired/neuropathies, MS, VA X 5, ABIGAIL with CPAP use, PAD/legs, R leg edema, past pancreatitis, VA 10/27/23 Last Myocardial Infarction Date:: LAST ONE 10/27/23 History of Any Multi-Drug Resistant Organisms: None Reported Past Surgical History: Section, Cholecystectomy, Heart Catheterization With Stent, Hysterectomy, Tubal Ligation, Uterine Ablation Additional Past Surgical History / Comment(s): vein stripping right leg, radio frequency ablation of right back-02/22/2015, four stents on 04/03/16 and one on march 05, ovaries removed, colonscopy- polyp removal Past Anesthesia/Blood Transfusion Reactions: Motion Sickness Additional Past Anesthesia/Blood Transfusion Reaction / Comment(s): mild claustrophobia Date of Last Stent Placement:: 04/03/16 Past Psychological History: Anxiety, Depression Smoking Status: Current every day smoker Past Alcohol Use History: None Reported Past Drug Use History: None Reported - Past Family History Father Family Medical History: Congestive Heart Failure (CHF), Coronary Artery Disease (CAD), Diabetes Mellitus Mother Family Medical History: Cancer, COPD, Hypertension, Respiratory Disorder Additional Family Medical History / Comment(s): emphysema, colon CA General Exam - General Exam Comments Initial Comments: PHYSICAL EXAM: General Impression: Alert and oriented x3, not in acute distress HEENT: Normocephalic atraumatic, extra-ocular movements intact, pupils equal and reactive to light bilaterally, mucous membranes moist. Cardiovascular: Heart regular rate and rhythm Chest: Able to complete full sentences, no retractions, no tachypnea Abdomen: abdomen soft, non-tender, non-distended, no organomegaly Musculoskeletal: Pulses present and equal in all extremities, no peripheral edema Motor: no focal deficits noted Neurological: Slurred speech, flaccid right-sided paralysis, intact motor and sensory of the left upper extremity left lower extremity. Skin: Intact with no visualized rashes Psych: Normal affect and mood Limitations: no limitations Course Vital Signs 11/20/24 12:39 Temperature 97.8 F Pulse Rate 76 Respiratory 20 Rate Blood Pressure 166/85 O2 Sat by Pulse 95 Oximetry EKG Findings - EKG Comments: EKG Findings:: My EKG interpretation: Ventricular rate 74, sinus rhythm,. 155, QRS 157, QTc 464. No SD prolongation, no QTC prolongation, no ST or T-wave changes noted. EKG compared to August 27, 2024 showing no changes. Overall, this EKG is unremarkable Medical Decision Making - Medical Decision Making Was pt. sent in by a medical professional or institution (, PA, GAS SHOVEL OPERATOR, urgent ca re, hospital, or longterm...) When possible be specific @ -No Did you speak to anyone other than the patient for history (EMS, parent, family, police, friend...)? What history was obtained from this source @ - at the bedside states that patient was weak this morning Did you review nursing and triage notes (agree or disagree)? Why? @ -I reviewed and agree with nursing and triage notes Were old charts reviewed (outside hosp., previous admission, EMS record, old EKG, old radiological studies, urgent care reports/EKG's, longterm records)? Report findings @ -No old charts were reviewed Differential Diagnosis (chest pain, altered mental status, abdominal pain women, abdominal pain men, vaginal bleeding, musculoskeletal, weakness, fever, dyspnea, syncope, headache, dizziness, GI bleed, back pain, seizure, CVA, palpatations, mental health)? @ -Differential Weakness: Hypoglycemia, shock, sepsis, hyponatremia, anemia, infection, VA, ETOH, adverse medicine reaction, overdose, stroke, this is not meant to be an all-inclusive list. EKG interpreted by me (3pts min.). @ -None done X-rays interpreted by me (1pt min.). @ -Chest x-ray is nonacute CT interpreted by me (1pt min.). @ -None done U/S interpreted by me (1pt. min.). @ -None done What testing was considered but not performed or refused? (CT, X-rays, U/S, labs)? Why? @ -None What meds were considered but not given or refused? Why? @ -None Was smoking cessation discussed for >3mins.? @ -No Were there social determinants of health that impacted care today? How? (Homelessness, low income, unemployed, alcoholism, drug addiction, transportation, low edu. Level, literacy, decrease access to med. care, assisted, rehab)? @ -No Was there de-escalation of care discussed even if they declined (Discuss DNR or withdrawal of care, Hospice)? DNR status @ -No What co-morbidities impacted this encounter? (DM, HTN, Smoking, COPD, CAD, Cancer, CVA, ARF, Chemo, Hep., AIDS, mental health diagnosis, sleep apnea, morb id obesity)? @ -None Was patient admitted / discharged? Hospital course, mention meds given and rou te, prescriptions, significant lab abnormalities, going to OR and other pertinent info. @ -54-year-old female presents emergency department with generalized weakness she has a history of CVA. Patient denies any new focal neurologic issues. Vital signs are stable. Laboratory evaluation obtained found to be within acceptable limits. Slightly hyperglycemic. Patient given 10 units of IV insulin for blood glucose control. Viral testing is negative. Patient observed emergency department for 1 hour 53 minutes. Reevaluated bedside at 2:31 PM found to be stable to condition. Urine studies sent for eval and culture. Denies any urinary symptoms. Disposition options were discussed he would prefer discharge. Advise close follow-up with primary care doctor. Did you discuss the management of the patient with other professionals (professionals i.e. , PA, GAS SHOVEL OPERATOR, lab, RT, psych nurse, social science professor, back up worker, teacher, chief revenue officer, child welfare caseworker)? Give summary @ -No Was critical care preformed (if so, how long)? @ -No Undiagnosed new problem with uncertain prognosis? @ -No Drug Therapy requiring intensive monitoring for toxicity (Heparin, Nitro, Insulin, Cardizem)? @ -No Were any procedures done? @ -No Diagnosis/symptom? Acute, or Chronic, or Acute on Chronic? Uncomplicated (wit hout systemic symptoms) or Complicated (systemic symptoms)? @ -Generalized weakness Side effects of treatment? @ -No Exacerbation, Progression, or Severe Exacerbation? @ -No Poses a threat to life or bodily function? How? (Chest pain, USA, VA, pneumonia, PE, COPD, DKA, ARF, appy, cholecystitis, CVA, Diverticulitis, Homicidal, Suicidal, threat to staff... and all critical care pts) @ -No - Lab Data Result diagrams: 11/20/24 13:01 11/20/24 13:01 Lab Results 11/20/24 11/20/24 11/20/24 Range/Units 12:53 13:01 13:01 WBC 13.2 H (3.8-10.6) k/uL RBC 3.77 L (3.80-5.40) m/uL Hgb 10.7 L (11.4-16.0) gm/dL Hct 32.6 L (34.0-46.0) % MCV 86.4 (80.0-100.0) fL MCH 28.4 (25.0-35.0) pg MCHC 32.9 (31.0-37.0) g/dL RDW 17.5 H (11.5-15.5) % Plt Count 292 (150-450) k/uL MPV 9.1 Neutrophils % 76 % Lymphocytes % 17 % Monocytes % 4 % Eosinophils % 2 % Basophils % 0 % Neutrophils # 10.0 H (1.3-7.7) k/uL Lymphocytes # 2.3 (1.0-4.8) k/uL Monocytes # 0.6 (0-1.0) k/uL Eosinophils # 0.2 (0-0.7) k/uL Basophils # 0.0 (0-0.2) k/uL Anisocytosis Slight Sodium 132 L (137-145) mmol/L Potassium 4.3 (3.5-5.1) mmol/L Chloride 105 (98-107) mmol/L Carbon Dioxide 20 L (22-30) mmol/L Anion Gap 7 mmol/L BUN 26 H (7-17) mg/dL Creatinine 1.73 H (0.52-1.04) mg/dL Est GFR (CKD-EPI)AfAm 38 (>60 ml/min/1.73 sqM) Est GFR (CKD-EPI)NonAf 33 (>60 ml/min/1.73 sqM) Glucose 298 H (74-99) mg/dL POC Glucose (mg/dL) 309 H (70-110) mg/dL POC Glu Synchro Assembler ID [facility] Calcium 9.5 (8.4-10.2) mg/dL Total Bilirubin 0.3 (0.2-1.3) mg/dL AST 16 (14-36) U/L ALT 11 (4-34) U/L Alkaline Phosphatase 220 H (38-126) U/L Total Protein 4.7 L (6.3-8.2) g/dL Albumin 2.6 L (3.5-5.0) g/dL Influenza Type A (PCR) (Not Detectd) Influenza Type B (PCR) (Not Detectd) RSV (PCR) (Not Detectd) SARS-CoV-2 (PCR) (Not Detectd) 11/20/24 Range/Units 13:01 WBC (3.8-10.6) k/uL RBC (3.80-5.40) m/uL Hgb (11.4-16.0) gm/dL Hct (34.0-46.0) % MCV (80.0-100.0) fL MCH (25.0-35.0) pg MCHC (31.0-37.0) g/dL RDW (11.5-15.5) % Plt Count (150-450) k/uL MPV Neutrophils % % Lymphocytes % % Monocytes % % Eosinophils % % Basophils % % Neutrophils # (1.3-7.7) k/uL Lymphocytes # (1.0-4.8) k/uL Monocytes # (0-1.0) k/uL Eosinophils # (0-0.7) k/uL Basophils # (0-0.2) k/uL Anisocytosis Sodium (137-145) mmol/L Potassium (3.5-5.1) mmol/L Chloride (98-107) mmol/L Carbon Dioxide (22-30) mmol/L Anion Gap mmol/L BUN (7-17) mg/dL Creatinine (0.52-1.04) mg/dL Est GFR (CKD-EPI)AfAm (>60 ml/min/1.73 sqM) Est GFR (CKD-EPI)NonAf (>60 ml/min/1.73 sqM) Glucose (74-99) mg/dL POC Glucose (mg/dL) (70-110) mg/dL POC Glu Synchro Assembler ID Calcium (8.4-10.2) mg/dL Total Bilirubin (0.2-1.3) mg/dL AST (14-36) U/L ALT (4-34) U/L Alkaline Phosphatase (38-126) U/L Total Protein (6.3-8.2) g/dL Albumin (3.5-5.0) g/dL Influenza Type A (PCR) Not Detected (Not Detectd) Influenza Type B (PCR) Not Detected (Not Detectd) RSV (PCR) Not Detected (Not Detectd) SARS-CoV-2 (PCR) Not Detected (Not Detectd) Disposition Clinical Impression: Generalized weakness Disposition: HOME SELF-CARE Condition: Fair Instructions (If sedation given, give patient instructions): Weakness (ED) Is patient prescribed a controlled substance at d/c from ED?: No Referrals: Dagmar Hennessy MD [Primary Care Provider] - 1-2 days Time of Disposition: 14:32
[2024-11-20 13:33] LABS: Anisocytosis Slight; Basophils % (A) 0 %; Eosinophils # (A) 0.2 k/uL (0-0.7); Eosinophils % (A) 2 %; HCT 32.6 % (34.0-46.0); HGB 10.7 gm/dL (11.4-16.0); Lymphocytes # (A) 2.3 k/uL (1.0-4.8); Lymphocytes % (A) 17 %; MCH 28.4 pg (25.0-35.0); MCHC 32.9 g/dL (31.0-37.0); MCV 86.4 fL (80.0-100.0); Mean Platelet Volume 9.1; Monocytes # (A) 0.6 k/uL (0-1.0); Monocytes % (A) 4 %; Neutrophils % (A) 76 %; Platelet Count 292 k/uL (150-450); RBC 3.77 m/uL (3.80-5.40); RDW 17.5 % (11.5-15.5); WBC 13.2 k/uL (3.8-10.6)
[2024-11-20 13:41] LABS: ALT 11 U/L (4-34); AST 16 U/L (14-36); African American GFR (CKD) 38 (>60 ml/min/1.73 sqM); Albumin 2.6 g/dL (3.5-5.0); Alkaline Phosphatase 220 U/L (38-126); Anion Gap 7 mmol/L; Blood Urea Nitrogen 26 mg/dL (7-17); Calcium 9.5 mg/dL (8.4-10.2); Carbon Dioxide 20 mmol/L (22-30); Chloride 105 mmol/L (98-107); Glucose 298 mg/dL (74-99); Non-African American GFR(CKD) 33 (>60 ml/min/1.73 sqM); Potassium 4.3 mmol/L (3.5-5.1); Sodium 132 mmol/L (137-145); Total Bilirubin 0.3 mg/dL (0.2-1.3); Total Protein 4.7 g/dL (6.3-8.2)
--- NOTE | 2024-11-20 13:42 | XR ---
EXAMINATION TYPE: XR chest 2V DATE OF EXAM: 11/20/2024 1:38 PM COMPARISON: Chest x-ray August 26, 2024 CLINICAL INDICATION: Female, 54 years old with history of weakness, TECHNIQUE: Frontal and lateral views of the chest are obtained. FINDINGS: There is no focal air space opacity, pleural effusion, or pneumothorax seen. Cardiomegaly is redemonstrated. The osseous structures are intact. IMPRESSION: Cardiomegaly without acute pulmonary process. [facility], , 11/20/2024 1:39 PM
[2024-11-20 13:50] LABS: Influenza A Not Detected (Not Detectd); Influenza B Not Detected (Not Detectd); RSV Not Detected (Not Detectd)
[2024-11-20] MEDS: SODIUM CHLORIDE 0.9% 1,000 ML IV STA (14:02)
[2024-11-20 14:42] LABS: Appearance,Urine Clear (Clear); Bilirubin,Urine Negative (Negative); Blood,Urine Negative (Negative); Color,Urine Light Yellow; Glucose,Urine (UA) 4+ (Negative); Ketones,Urine Negative (Negative); Leukocyte Esterase,Urine Negative (Negative); Mucus,Urine Rare /hpf; Nitrite,Urine Negative (Negative); PH, Urine 6.5 (5.0-8.0); Protein,Urine 3+ (Negative); RBC,Urine <1 /hpf (0-5); Specific Gravity,Urine 1.017 (1.001-1.035); Squamous Epithelial Cell,Urine <1 /hpf (0-4); Urobilinogen,Urine <2.0 mg/dL (<2.0); WBC,Urine 2 /hpf (0-5)
[2024-11-20 14:43] LABS: Glucose,Whole Blood 292 mg/dL (70-110)
[2024-11-20] MEDS: INSULIN REGULAR 100 UNIT/ML VIAL (IV) IV ONE (14:50)
[2024-11-20 14:54] VITALS: BP 146/84
== END 2024-11-20 14:55 | disposition home or self-care (01) ==
LOC: EC 12:38
DX: R53.1 Weakness (principal); Z88.2 Allergy status to sulfonamides; Z88.1 Allergy status to other antibiotic agents; Z91.041 Radiographic dye allergy status; Z91.013 Allergy to seafood; F17.200 Nicotine dependence, unspecified, uncomplicated
CPT/HCPCS: 36415; 51701; 71046; 80053; 81001; 85025; 87636; 93005; 96360; 99285

== ENCOUNTER 2024-11-21 09:37 | Observation (INO) | payer OTHER ==
--- NOTE | 2024-11-21 09:58 | ED ---
General Adult HPI - General Chief complaint: Neuro Symptoms/Deficit Stated complaint: NUMBNESS LEFT SIDE Time Seen by Provider: 11/21/24 09:39 Source: patient, family, EMS, RN notes reviewed Mode of arrival: EMS Limitations: no limitations - History of Present Illness Initial comments: Patient is a 54-year-old female present to the emergency department with concern for left leg paresthesia. Onset of symptoms was around 24 hours ago. Symptoms have been intermittent. Patient states it does feel a little bit heavy. Patient does have history of previous right sided stroke with right hemiparesis. Patient states that has been difficult to concentrate. Mild headache. - Related Data Home Medications Medication Instructions Recorded Confirmed Aspirin [Adult Low Dose Aspirin EC] 81 mg PO HS 11/26/17 11/20/24 Isosorbide Mononitrate ER [Imdur] 60 mg PO DAILY 09/08/18 11/20/24 Empagliflozin [Jardiance] 10 mg PO DAILY 10/06/22 11/20/24 Nitroglycerin Sl Tabs [Nitrostat] 0.4 mg SL Q5M PRN 10/06/22 11/20/24 INSULIN LISPRO (For Pump) [humaLOG 0.01 units SQ-PUMP CONTINUOUS 07/17/23 11/20/24 (For Pump)] Atorvastatin [Lipitor] 40 mg PO HS 12/11/23 11/20/24 ALPRAZolam [Xanax] 1 mg PO TID PRN 03/28/24 11/20/24 Cinacalcet [Sensipar] 30 mg PO FR 03/28/24 11/20/24 Ondansetron Odt [Zofran ODT] 8 mg PO Q12HR 05/04/24 11/20/24 Albuterol Inhaler [Ventolin Hfa 2 puff INHALATION RT-Q6H PRN 08/26/24 11/20/24 Inhaler] carvediloL [Coreg] 25 mg PO BID-W/MEALS 08/26/24 11/20/24 HYDROcodone/APAP 7.5-325MG [[place] 1 tab PO TID PRN 11/20/24 11/20/24 7.5-325] Losartan [Cozaar] 12.5 mg PO DAILY 11/20/24 11/20/24 Allergies Allergy/AdvReac Type Severity Reaction Status Date / Time Fish Containing Products Allergy Anaphylaxis Verified 11/21/24 09:43 Iodinated Contrast Media Allergy Anaphylaxis Verified 11/21/24 09:43 [Iodinated Contrast Media - IV Dye] Sulfa (Sulfonamide Allergy Anaphylaxis Verified 11/21/24 09:43 Antibiotics) sulfamethoxazole Allergy Anaphylaxis Verified 11/21/24 09:43 [From ] tree nut [Nut] Allergy Anaphylaxis Verified 11/21/24 09:43 trimethoprim [From ] Allergy Anaphylaxis Verified 11/21/24 09:43 Review of Systems ROS Statement: Those systems with pertinent positive or pertinent negative responses have been documented in the HPI. ROS Other: All systems not noted in ROS Statement are negative. Constitutional: Denies: fever Eyes: Denies: eye pain ENT: Denies: ear pain Respiratory: Denies: cough Cardiovascular: Denies: chest pain Endocrine: Denies: fatigue Gastrointestinal: Denies: abdominal pain Musculoskeletal: Denies: back pain Neurological: Reports: as per HPI Past Medical History Past Medical History: Blood Disorder, Coronary Artery Disease (CAD), Cancer, Chest Pain / Angina, CVA/TIA, Diabetes Mellitus, Deep Vein Thrombosis (DVT), Fibromyalgia, GERD/Reflux, Hyperlipidemia, Hypertension, Myocardial Infarction (MT), Musculoskeletal Disorder, Neurologic Disorder, Renal Disease, Sleep Apnea/CPAP/BIPAP, Vascular Disorder Additional Past Medical History / Comment(s): IDDM type II, uterine/cervical and ovarian cancer, restless leg, Factor V blood disorder, DVT R leg, 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 - slight foot drag when tired/neuropathies, MS, MT X 5, ABIGAIL with CPAP use, PAD/legs, R leg edema, past pancreatitis, MT 10/27/23 Last Myocardial Infarction Date:: LAST ONE 10/27/23 History of Any Multi-Drug Resistant Organisms: None Reported Past Surgical History: Section, Cholecystectomy, Heart Catheterization With Stent, Hysterectomy, Tubal Ligation, Uterine Ablation Additional Past Surgical History / Comment(s): vein stripping right leg, radio frequency ablation of right back-02/22/2015, four stents on 04/03/16 and one on march 05, ovaries removed, colonscopy- polyp removal Past Anesthesia/Blood Transfusion Reactions: Motion Sickness Additional Past Anesthesia/Blood Transfusion Reaction / Comment(s): mild claustrophobia Date of Last Stent Placement:: 04/03/16 Past Psychological History: Anxiety, Depression Smoking Status: Current some day smoker Past Alcohol Use History: None Reported Past Drug Use History: None Reported - Past Family History Father Family Medical History: Congestive Heart Failure (CHF), Coronary Artery Disease (CAD), Diabetes Mellitus Mother Family Medical History: Cancer, COPD, Hypertension, Respiratory Disorder Additional Family Medical History / Comment(s): emphysema, colon CA General Exam Limitations: no limitations General appearance: alert, in no apparent distress Head exam: Present: atraumatic Eye exam: Present: normal appearance, PERRL, EOMI ENT exam: Present: normal oropharynx Neck exam: Present: normal inspection Respiratory exam: Present: normal lung sounds bilaterally Cardiovascular Exam: Present: regular rate, normal rhythm GI/Abdominal exam: Present: soft. Absent: tenderness Extremities exam: Present: normal inspection Back exam: Present: normal inspection Neurological exam: Present: alert, oriented X3 Expanded Neurological exam: Present: protecting the airway Speech: Present: fluid speech Cranial nerves: EOM's Intact: Normal, Facial Sensation: Normal, Facial Palsy with Forehead Movement: Abnormal Right (Minimal) Sensory exam: Upper Extremity Light Touch: Abnormal Right (Patient feels this is new on her right side), Lower Extremity Light Touch: Abnormal Right (Patient feels like this is new on her right side) Motor strength exam: RUE: 2/1, LUE: 5, RLE: 2/1, LLE: 4 (Patient is concerned this is new, minimal drift) Eye Response: (4) open spontaneously Motor Response: (6) obeys commands Verbal Response: (5) oriented Psychiatric exam: Present: normal affect, normal mood Skin exam: Present: normal color Course Vital Signs 11/21/24 11/21/24 09:39 11:30 Temperature 98.3 F Pulse Rate 74 74 Respiratory 18 20 Rate Blood Pressure 190/87 192/81 O2 Sat by Pulse 100 98 Oximetry EKG Findings - EKG Results: EKG: interpreted by ERMD (Left axis. Right bundle branch block. LVH.), sinus rhythm, normal ST/T Medical Decision Making - Medical Decision Making Was pt. sent in by a medical professional or institution (, PA, TONAL REGULATOR, urgent care, hospital, or usp...) When possible be specific @ -No Did you speak to anyone other than the patient for history (EMS, parent, family, police, friend...)? What history was obtained from this source @ -No Did you review nursing and triage notes (agree or disagree)? Why? @ -I reviewed and agree with nursing and triage notes Were old charts reviewed (outside hosp., previous admission, EMS record, old EKG, old radiological studies, urgent care reports/EKG's, usp records)? Report findings @ -No old charts were reviewed Differential Diagnosis (chest pain, altered mental status, abdominal pain women, abdominal pain men, vaginal bleeding, weakness, fever, dyspnea, syncope, headache, dizziness, GI bleed, back pain, seizure, CVA, palpatations, mental health, musculoskeletal)? @ -Differential Weakness: Hypoglycemia, shock, sepsis, hyponatremia, anemia, infection, MT, ETOH, adverse medicine reaction, overdose, stroke, this is not meant to be an all-inclusive list. EKG interpreted by me (3pts min.). @ -As above X-rays interpreted by me (1pt min.). @ -Chest x-ray shows no acute process CT interpreted by me (1pt min.). @ -CT scan of the brain shows old infarct U/S interpreted by me (1pt. min.). @ -None done What testing was considered but not performed or refused? (CT, X-rays, U/S, labs)? Why? @ -None What meds were considered but not given or refused? Why? @ -None Did you discuss the management of the patient with other professionals (professionals i.e. , PA, TONAL REGULATOR, lab, RT, psych nurse, manager social services, test deck supervisor, teacher, global chief experience officer, pillowcase sewer)? Give summary @ -Case discussed with Dr. Sanchez who will admit covering Dr. Mireles Was smoking cessation discussed for >3mins.? @ -No Was critical care preformed (if so, how long)? @ -No Were there social determinants of health that impacted care today? How? (Homelessness, low income, unemployed, alcoholism, drug addiction, transp ortation, low edu. Level, literacy, decrease access to med. care, usp, rehab)? @ -No Was there de-escalation of care discussed even if they declined (Discuss DNR or withdrawal of care, Hospice)? DNR status @ -No What co-morbidities impacted this encounter? (DM, HTN, Smoking, COPD, CAD, Cancer, CVA, ARF, Chemo, Hep., AIDS, mental health diagnosis, sleep apnea, morbid obesity)? @ -History of previous stroke Was patient admitted / discharged? Hospital course, mention meds given and route, prescriptions, significant lab abnormalities, going to OR and other pertinent info. @ -Patient presents with concerns for paresthesias left leg and later admits to having some heaviness. There is minimal drift on exam which patient feels is new. Patient also has some decreased sensation on the right side that she feels is new. Patient will be admitted with neurology consult with concern for potential small TIA. Patient reevaluated. Patient and family updated. Admission orders written. Undiagnosed new problem with uncertain prognosis? @ -No Drug Therapy requiring intensive monitoring for toxicity (Heparin, Nitro, Insulin, Cardizem)? @ -No Were any procedures done? @ -No Diagnosis/symptom? @ -Leg weakness Acute, or Chronic, or Acute on Chronic? @ -Acute Uncomplicated (without systemic symptoms) or Complicated (systemic symptoms)? @ -Default Side effects of treatment? @ -No Exacerbation, Progression, or Severe Exacerbation? @ -No Poses a threat to life or bodily function? How? (Chest pain, USA, MT, pneumonia, PE, COPD, DKA, ARF, appy, cholecystitis, CVA, Diverticulitis, Homicidal, Suicidal, threat to staff... and all critical care pts) @ -No - Lab Data Result diagrams: 11/21/24 10:00 11/21/24 10:00 Lab Results 11/21/24 11/21/24 11/21/24 Range/Units 10:00 10:00 10:00 WBC 13.0 H (3.8-10.6) k/uL RBC 3.85 (3.80-5.40) m/uL Hgb 10.7 L (11.4-16.0) gm/dL Hct 33.3 L (34.0-46.0) % MCV 86.4 (80.0-100.0) fL MCH 27.8 (25.0-35.0) pg MCHC 32.2 (31.0-37.0) g/dL RDW 17.2 H (11.5-15.5) % Plt Count 298 (150-450) k/uL MPV 8.7 Neutrophils % 72 % Lymphocytes % 20 % Monocytes % 4 % Eosinophils % 2 % Basophils % 0 % Neutrophils # 9.4 H (1.3-7.7) k/uL Lymphocytes # 2.6 (1.0-4.8) k/uL Monocytes # 0.5 (0-1.0) k/uL Eosinophils # 0.3 (0-0.7) k/uL Basophils # 0.0 (0-0.2) k/uL Hypochromasia Slight Anisocytosis Slight PT 10.6 (10.0-12.5) sec INR 0.9 (<1.2) APTT 21.0 L (22.0-30.0) sec Sodium 136 L (137-145) mmol/L Potassium 4.2 (3.5-5.1) mmol/L Chloride 108 H (98-107) mmol/L Carbon Dioxide 22 (22-30) mmol/L Anion Gap 6 mmol/L BUN 24 H (7-17) mg/dL Creatinine 1.67 H (0.52-1.04) mg/dL Est GFR (CKD-EPI)AfAm 40 (>60 ml/min/1.73 sqM) Est GFR (CKD-EPI)NonAf 35 (>60 ml/min/1.73 sqM) Glucose 179 H (74-99) mg/dL Calcium 9.8 (8.4-10.2) mg/dL Total Bilirubin 0.4 (0.2-1.3) mg/dL AST 16 (14-36) U/L ALT 11 (4-34) U/L Alkaline Phosphatase 159 H (38-126) U/L Creatine Kinase 118 (30-135) U/L Total Protein 4.7 L (6.3-8.2) g/dL Albumin 2.5 L (3.5-5.0) g/dL Disposition Clinical Impression: Leg weakness Disposition: ADMITTED IP TO THIS HOSP Is patient prescribed a controlled substance at d/c from ED?: No Referrals: Dagmar Hennessy MD [Primary Care Provider] - 1-2 days Time of Disposition: 12:38
[2024-11-21 10:16] LABS: Anisocytosis Slight; Basophils % (A) 0 %; Eosinophils # (A) 0.3 k/uL (0-0.7); Eosinophils % (A) 2 %; HCT 33.3 % (34.0-46.0); HGB 10.7 gm/dL (11.4-16.0); Hypochromasia Slight; Lymphocytes # (A) 2.6 k/uL (1.0-4.8); Lymphocytes % (A) 20 %; MCH 27.8 pg (25.0-35.0); MCHC 32.2 g/dL (31.0-37.0); MCV 86.4 fL (80.0-100.0); Mean Platelet Volume 8.7; Monocytes # (A) 0.5 k/uL (0-1.0); Monocytes % (A) 4 %; Neutrophils # (A) 9.4 k/uL (1.3-7.7); Neutrophils % (A) 72 %; Platelet Count 298 k/uL (150-450); RBC 3.85 m/uL (3.80-5.40); RDW 17.2 % (11.5-15.5)
--- NOTE | 2024-11-21 10:17 | XR ---
Chest, 2 view. HISTORY: Altered mental status COMPARISON: 11/20/2024 TECHNIQUE: PA and lateral views the chest are obtained. FINDINGS: The lungs are clear and there is no consolidative or interstitial opacity. There is no pleural effusion or pneumothorax. There is persistent mild cardiomegaly. The pulmonary vasculature does not appear congested. The osseous structures are intact. IMPRESSION: Stable mild cardiomegaly without acute cardiopulmonary disease.. [facility], , 11/21/2024 10:15 AM
--- NOTE | 2024-11-21 10:31 | CT ---
EXAMINATION TYPE: CT brain wo con DATE OF EXAM: 11/21/2024 COMPARISON: 06/19/2024 CLINICAL INDICATION: Female, 54 years old with history of Neuro deficit, acute, stroke suspected; PHH , AMS CT DLP: 1095.9 mGycm Automated exposure control for dose reduction was used. FINDINGS: There is a remote lacunar infarct in the region of the anterior limb of the internal capsule on the l eft. There is a remote infarct in the region of posterior limb of the internal capsule on the left an d within the white matter of the left centrum semiovale. There is no mass effect or shift of midline structures. The CSF spaces are within normal limits for the patient's age. There is no acute intra or extra-axial hemorrhage. The posterior fossa is grossly normal. The intraorbital contents appear normal and symmetric. Visualized paranasal sinuses and mastoid air c ells are well aerated. IMPRESSION: 1. Remote ischemic changes of the anterior and posterior limbs of the internal capsule on the left an d within the left centrum semiovale. 2. No acute bleed or mass effect. [facility], , 11/21/2024 10:29 AM
[2024-11-21 10:32] LABS: INR 0.9 (<1.2); Prothrombin Time 10.6 sec (10.0-12.5)
[2024-11-21 10:51] LABS: ALT 11 U/L (4-34); AST 16 U/L (14-36); African American GFR (CKD) 40 (>60 ml/min/1.73 sqM); Albumin 2.5 g/dL (3.5-5.0); Alkaline Phosphatase 159 U/L (38-126); Anion Gap 6 mmol/L; Blood Urea Nitrogen 24 mg/dL (7-17); Calcium 9.8 mg/dL (8.4-10.2); Carbon Dioxide 22 mmol/L (22-30); Chloride 108 mmol/L (98-107); Creatine Kinase 118 U/L (30-135); Glucose 179 mg/dL (74-99); Non-African American GFR(CKD) 35 (>60 ml/min/1.73 sqM); Potassium 4.2 mmol/L (3.5-5.1); Sodium 136 mmol/L (137-145); Total Bilirubin 0.4 mg/dL (0.2-1.3); Total Protein 4.7 g/dL (6.3-8.2)
[2024-11-21] MEDS: HYDROcodone/APAP 7.5-325MG 1 EACH TAB PO ONE (10:57)
[2024-11-21] MEDS: SODIUM CHLORIDE 0.9% 1,000 ML IV SCH (13:40)
[2024-11-21] MEDS: ASPIRIN 325 MG TAB PO STA (13:40)
--- NOTE | 2024-11-21 15:13 | US ---
EXAMINATION TYPE: US carotid duplex BILAT DATE OF EXAM: 11/21/2024 COMPARISON: 06/26/2015 CLINICAL INDICATION: Female, 54 years old with history of Stenosis; Additional History: G45.9 Transient Ischemic Attack (TIA) various Most positive vascular findings of extracranial vessels; specified laterality eye & ear disorders TECHNIQUE: Grayscale, color Doppler and spectral Doppler evaluation of the bilateral carotid systems and vertebral arteries. Indirect Doppler criteria was utilized. FINDINGS: EXAM MEASUREMENTS: RIGHT: Peak Systolic Velocity (PSV) cm/sec ----- Right CCA: 56 ----- Right ICA: 68 ----- Right ECA: 121 ICA/CCA ratio: 1.2 RIGHT: End Diastole cm/sec ----- Right CCA: 14 ----- Right ICA: 15 ----- Right ECA: 17 LEFT: Peak Systolic Velocity (PSV) cm/sec ----- Left CCA: 70 ----- Left ICA: 68 ----- Left ECA: 128 ICA/CCA ratio: 1.0 LEFT: End Diastole cm/sec ----- Left CCA: 11 ----- Left ICA: 15 ----- Left ECA: 9 VERTEBRALS (direction of flow): Right Vertebral: Antegrade Left Vertebral: Antegrade Rhythm: Normal MORTGAGE LOAN SPECIALIST NOTES: Intimal thickening and plaque seen throughout bilateral CCAs extending into the IC . Elevated velocities within the left ECA Color Doppler imaging shows patency with blood flow throughout the carotid artery. Spectral waveforms are within normal limits. IMPRESSION: Right: No evidence of hemodynamically significant stenosis in the CCA or ICA. Left: No evidence of hemodynamically significant stenosis in the CCA or ICA. Criteria for Assigning % of Stenosis / Diameter reduction (Estimation based on the indirect measurements of the internal carotid artery velocities (ICA PSV). 1. Normal (no stenosis)=ICA PSV < 125 cm/s: ratio < 2.0: ICA EDV<40 cm/s. 2. Less than 50% stenosis=ICA PSV < 125 cm/s: ratio < 2.0: ICA EDV<40 cm/s. 3. 50 to 69% stenosis=ICA PSV of 125 to 230 cm/s: ration 2.0 ? 4.0: ICA EDV 40-100 cm/s. 4. Greater than 70% stenosis to near occlusion= ICA PSV > 230 cm/s: ratio > 4.0: ICA EDV > 100 cm/s. 5. Near occlusion= ICA PSV velocities may be low or undetectable: variable ratio and ICA EDV. 6. Total occlusion=unable to detect flow. [facility], , 11/21/2024 3:11 PM
[2024-11-21] MEDS ORDERED: INSPUCOR MISCELLANE PRN (16:21)
[2024-11-21] MEDS ORDERED: INSULIN ASPART (NovoLOG) 100 UNIT/ML VIAL SQ PRN (16:21)
[2024-11-21] MEDS ORDERED: INSULIN PUMP BASAL RATES 1 EACH MISC MISCELLANE PRN (16:21)
[2024-11-21 16:48] LABS: Glucose,Whole Blood 226 mg/dL (70-110)
[2024-11-21] MEDS: INSULIN PUMP MEAL BOLUS 1 UNIT MISC MISCELLANE SCH (17:11)
[2024-11-21] MEDS: CLOPIDOGREL 75 MG TAB PO SCH (17:11)
[2024-11-21] MEDS ORDERED: ALPRAZolam 1 MG TAB PO PRN (18:29)
[2024-11-21] MEDS ORDERED: NITROGLYCERIN SL TABS 0.4 MG TAB SUBLINGUAL PRN (18:29)
[2024-11-21] MEDS ORDERED: ALBUTEROL NEBULIZED 2.5 MG/3 ML INHALATION PRN (18:29)
[2024-11-21] MEDS: INSULIN LISPRO (For Pump) 100 UNIT/ML VIAL SQ-PUMP SCH (18:47)
[2024-11-21] MEDS: carvediloL 12.5 MG TAB PO SCH (18:52)
[2024-11-21 20:18] LABS: Glucose,Whole Blood 283 mg/dL (70-110)
[2024-11-21] MEDS: ONDANSETRON ODT 8 MG TAB.RAPDIS PO SCH (20:32)
[2024-11-21] MEDS: ISOSORBIDE MONONITRATE ER 60 MG TAB.ER.24H PO SCH (20:33)
[2024-11-21] MEDS: LOSARTAN 25 MG TAB PO SCH (20:33)
[2024-11-21] MEDS: HYDROcodone/APAP 7.5-325MG 1 EACH TAB PO PRN (20:33)
[2024-11-21] MEDS: ATORVASTATIN 40 MG TAB PO SCH (20:33)
[2024-11-21] MEDS ORDERED: NON FORMULARY DRUG (Aspirin [Adult Low Dose Aspirin Ec] 81 MG Tablet.Dr) PO SCH (21:00)
[2024-11-21 23:27] LABS: Appearance,Urine Clear (Clear); Bilirubin,Urine Negative (Negative); Blood,Urine Negative (Negative); Color,Urine Colorless; Glucose,Urine (UA) 2+ (Negative); Ketones,Urine Negative (Negative); Leukocyte Esterase,Urine Negative (Negative); Mucus,Urine Rare /hpf; Nitrite,Urine Negative (Negative); Protein,Urine 3+ (Negative); RBC,Urine <1 /hpf (0-5); Specific Gravity,Urine 1.011 (1.001-1.035); Squamous Epithelial Cell,Urine <1 /hpf (0-4); Urobilinogen,Urine <2.0 mg/dL (<2.0); WBC,Urine <1 /hpf (0-5)
--- NOTE | 2024-11-22 00:15 | P.CNNES ---
History of Present Illness Consult date: 11/21/24 Requesting physician: Myron Saeed Reason for Consult: leg weakness History of Present Illness: Patient is a 54-year-old left-handed female, with history of previous strokes, possible MS, hypertension, came to the hospital by ambulance today at 9:37 AM for acute onset of weakness in the legs. Patient states that this morning she woke up at 7:30 AM, could not move to go to the bathroom. She couldn't get up. Waist down she couldn't feel anything. Patient's was also present at the bedside. They mentioned that patient came in to the hospital yesterday for the same reason,. They underwent some testing, scanning and then was sent home. Patient's right leg has always been weak from previous stroke, but the left leg felt the same way. She says that the symptoms are improving. Patient states h er leg still feels "kind of weird". However for the most part she can feel them. Patient denied any slurred speech or facial droop or any other focal symptoms. As per EMS flowsheet when they arrived, patient was complaining of numbness in the left side. Patient was alert and orient x 4 and able to answer questions appropriately in a timely manner. Pupils are equal round and reacting. Lung sounds were clear bilaterally. Patient has mentioned that she went to the hospital yesterday due to numbness in her left side and states that the doctors could not figure it out and discharged her. Patient states that the numbness has gone away. She states that she got up at 6:15 AM to use the bathroom and noticed that she felt numb again. The numbness was not subsiding so she called EMS. Patient has history of strokes with the last 1 in 2015. There was no facial droop. No slurred speech. Normal left-sided chief port director strength and patient has paralysis in her right arm and leg from previous stroke. EKG showed sinus rhythm. Blood pressure at the scene was 154/98, pulse rate 74 respiration 18 saturation 98%. Blood sugar 214 mg/dL. CT head showed remote ischemic changes of the anterior and posterior limbs of the internal capsule on the left and within the left centrum semiovale. No ac [place] bleed or mass effect. I personally reviewed CT head and agree with the findings. Very asymmetric small vessel disease of the left and evidence of old ischemia in the left basal ganglia. Some mild ex vacuo dilation of the left lateral ventricle indicating chronic changes. Patient has been seen by neurology service numerous times in the past. The last time I saw her was on 01/29/2023 when she had presented with altered mental status likely due to metabolic encephalopathy, possible medication side effect. most recent admission to the hospital was on 05/10/2024 when she was seen by Dr. Carolyn viera, and subsequently by me in the Dr. Figueredo. She had presented with TIA. Patient was recommended dual antiplatelet therapy for 21 days then to stop aspirin and continue Plavix. Patient's home medications include aspirin 81 mg, Lipitor 40 mg, Coreg, losartan, insulin, Jardiance and isosorbide. Apparently patient is not taking Plavix at this time. Patient at present smoking tobacco half pack per day. She has been smoking half pack per day for last 30 years. Her diabetes last time checked was poorly controlled with A1c 11.6. She has insulin pump which is controlling her diabetes better. Denies any alcohol use. Patient has history of an acute stroke confirmed on MRI from 03/03/2015, which involve the left centrum semiovale and periventricular white matter region. Patient states she has history of multiple strokes in the past. She has diabetes for last 13 years which is not controlled. She has hypertension. She has been diagnosed with MS by Dr. Brooks since last 4-5 years. She is currently on Ocrevus. Her last infusion was in July 2024 and the next dose is due in February 2025. Review of Systems All pertinent positive and negative review of systems mentioned in the HPI, otherwise unremarkable. Past Medical History Past Medical History: Blood Disorder, Coronary Artery Disease (CAD), Cancer, Chest Pain / Angina, CVA/TIA, Diabetes Mellitus, Deep Vein Thrombosis (DVT), Fibromyalgia, GERD/Reflux, Hyperlipidemia, Hypertension, Myocardial Infarction ([place]), Musculoskeletal Disorder, Neurologic Disorder, Renal Disease, Sleep Apnea/CPAP/BIPAP, Vascular Disorder Additional Past Medical History / Comment(s): IDDM type II, uterine/cervical and ovarian cancer, restless leg, Factor V blood disorder, DVT R leg, 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 - slight foot drag when tired/neuropathies, MS, [place] X 5, ABIGAIL with CPAP use, PAD/legs, R leg edema, past pancreatitis, [place] 10/27/23 Last Myocardial Infarction Date:: LAST ONE 10/27/23 History of Any Multi-Drug Resistant Organisms: None Reported Past Surgical History: Section, Cholecystectomy, Heart Catheterization With Stent, Hysterectomy, Tubal Ligation, Uterine Ablation Additional Past Surgical History / Comment(s): vein stripping right leg, radio frequency ablation of right back-02/22/2015, four stents on 04/03/16 and one on march 05, ovaries removed, colonscopy- polyp removal Past Anesthesia/Blood Transfusion Reactions: No Reported Reaction, Motion Sickness Additional Past Anesthesia/Blood Transfusion Reaction / Comment(s): mild claustrophobia Date of Last Stent Placement:: 04/03/16 Past Psychological History: Anxiety, Depression Additional Psychological History / Comment(s): Pt resides with her spouse. She is mostly in her wheelchair. She has a walker and cane. She has a dexcom. Her spouse assists her with her medication organization. Spouse also drives pt. Smoking Status: Current some day smoker Past Alcohol Use History: None Reported Additional Past Alcohol Use History / Comment(s): Pt started smoking in 1988 and quit recently Past Drug Use History: None Reported - Past Family History Father History Unknown: Yes Family Medical History: Congestive Heart Failure (CHF), Coronary Artery Disease (CAD), Diabetes Mellitus Mother History Unknown: Yes Family Medical History: Cancer, COPD, Hypertension, Respiratory Disorder Additional Family Medical History / Comment(s): emphysema, colon CA Medications and Allergies Home Medications Medication Instructions Recorded Confirmed Type Aspirin [Adult Low Dose Aspirin EC] 81 mg PO HS 11/26/17 11/21/24 History Isosorbide Mononitrate ER [Imdur] 60 mg PO HS 09/08/18 11/21/24 History Empagliflozin [Jardiance] 10 mg PO DAILY 10/06/22 11/21/24 History Nitroglycerin Sl Tabs [Nitrostat] 0.4 mg SL Q5M PRN 10/06/22 11/21/24 History INSULIN LISPRO (For Pump) [humaLOG 0.01 units SQ-PUMP CONTINUOUS 07/17/23 11/21/24 History (For Pump)] Atorvastatin [Lipitor] 40 mg PO HS 12/11/23 11/21/24 History ALPRAZolam [Xanax] 1 mg PO TID PRN 03/28/24 11/21/24 History Cinacalcet [Sensipar] 30 mg PO FR@2100 03/28/24 11/21/24 History Ondansetron Odt [Zofran ODT] 8 mg PO Q12HR 05/04/24 11/21/24 History Albuterol Inhaler [Ventolin Hfa 2 puff INHALATION RT-QID PRN 08/26/24 11/21/24 History Inhaler] carvediloL [Coreg] 25 mg PO BID-W/MEALS 08/26/24 11/21/24 History HYDROcodone/APAP 7.5-325MG [[place] 1 tab PO TID PRN 11/20/24 11/21/24 History 7.5-325] Losartan [Cozaar] 12.5 mg PO HS 11/20/24 11/21/24 History Allergies Allergy/AdvReac Type Severity Reaction Status Date / Time Fish Containing Products Allergy Anaphylaxis Verified 11/21/24 13:03 Iodinated Contrast Media Allergy Anaphylaxis Verified 11/21/24 13:03 [Iodinated Contrast Media - IV Dye] Sulfa (Sulfonamide Allergy Anaphylaxis Verified 11/21/24 13:03 Antibiotics) sulfamethoxazole Allergy Anaphylaxis Verified 11/21/24 13:03 [From Junra] tree nut [Nut] Allergy Anaphylaxis Verified 11/21/24 13:03 trimethoprim [From ] Allergy Anaphylaxis Verified 11/21/24 13:03 Physical Examination - Vital Signs Vital Signs: Vital Signs Temp Pulse Pulse Resp BP BP Pulse Ox 11/21/24 14:53 96.1 F L 69 18 203/94 97 11/21/24 14:45 69 18 11/21/24 14:44 96.1 F L 69 18 203/94 97 11/21/24 13:37 98.2 F 63 18 182/85 95 11/21/24 11:30 74 20 192/81 98 11/21/24 09:39 98.3 F 74 18 190/87 100 Intake and Output 11/21/24 11/21/24 11/21/24 06:59 14:59 22:59 Other: Voiding Method Toilet # Voids 2 # Bowel Movements 1 Weight 84.822 kg Patient is a middle aged female, in no acute distress. Patient is alert awake oriented to time place and person. Speech and language functions are normal. Patient can name and repeat very well. No aphasia or dysarthria. She has slightly hoarse voice. Attention, concentration and fund of knowledge is adequate. On cranial nerve examination, pupils are equal, round and reacting to light, visual li are full on confrontation, with no neglect on double simultaneous stimulation. Extraocular muscles are intact with no nystagmus. Face is symmetric, tongue protrudes to the midline. Palatal elevation and sensation normal, hearing and shoulder shrug normal, facial sensation normal. On muscle strength testing, the strength is normal in the left arm and left leg. On the right side, her deltoid is 2-3+, biceps 4-5-, triceps 4+5-, chief port director 2-3. Her right arm is very spastic, with decreased range of motion in general. Hip flexion 4, ankle dorsiflexion 4+ there is no pronator drift and the strength is normal in arms and legs distally and proximally. Deep tendon reflexes are asymmetric (right/left) biceps 3/2, brachioradialis 3/2, knees 3/2, plantar is up on the right, down left. Sensory to touch is equal with no neglect on double simultaneous stimulation. Cerebellar function showed no ataxia for [id number] testing with the left upper extremity, cannot perform with the right upper extremity. No dysdiadochokinesia. No ataxia for [id number] testing on either side. Tone is much increase in the right arm and bulk of muscles normal. Gait deferred.. On general examination, there is no carotid bruit or murmur, S1-S2 audible. Chest is clear on consultation. Abdomen is soft nontender. No organomegaly, bowel sounds present. Peripheral pulses are present. No peripheral edema. Results - Laboratory Findings CBC and BMP: 11/21/24 10:00 11/21/24 10:00 Abnormal Lab Findings: Abnormal Labs 11/21/24 11/21/24 11/21/24 10:00 10:00 10:00 WBC 13.0 H Hgb 10.7 L Hct 33.3 L RDW 17.2 H Neutrophils # 9.4 H APTT 21.0 L Sodium 136 L Chloride 108 H BUN 24 H Creatinine 1.67 H Glucose 179 H Alkaline Phosphatase 159 H Total Protein 4.7 L Albumin 2.5 L Assessment and Plan Assessment: * Possible TIA manifesting with numbness of the left leg, and difficulty with ambulation. Symptoms have significantly improved. Patient continues to have multiple stroke risk factors as mentioned below. 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 She had history of multiple strokes/TIA in the past. Patient has multiple vascular factors. * Recommend continuing dual antiplatelet medication therapy because of high risk for recurrent strokes. Patient currently on aspirin 81 mg daily. We will also add Plavix 75 mg daily. Continue DAPT. * Carotid Doppler revealed no evidence of hemodynamically significant stenosis in the CCA or ICA on either side. Antegrade flow in both vertebral arteries. * Patient had a 2-D echo performed 06/16/2022 for, in which LVEF is 55-60%. No obvious regional wall motion abnormalities. Severely increased left ventricular wall thickness. Normal left and right atrial size. Mildly dilated aortic root. * Check hemoglobin A1c. Last A1c 11.6 on 07/30/2024. * Fasting lipid panel. Continue Lipitor 40 mg daily. * Check B12, folate, B6, vitamin D. * Recommended complete tobacco cessation. * Neurology will follow. Thank you for the consult.
[2024-11-22 01:57] LABS: Glucose,Whole Blood 113 mg/dL (70-110)
[2024-11-22 04:01] VITALS: RESP 16
[2024-11-22 06:00] LABS: Glucose,Whole Blood 128 mg/dL (70-110)
[2024-11-22 07:40] LABS: Anisocytosis Slight; Basophils % (A) 0 %; Eosinophils # (A) 0.2 k/uL (0-0.7); Eosinophils % (A) 2 %; HCT 32.2 % (34.0-46.0); HGB 10.1 gm/dL (11.4-16.0); Hypochromasia Moderate; Lymphocytes # (A) 3.3 k/uL (1.0-4.8); Lymphocytes % (A) 29 %; MCH 27.7 pg (25.0-35.0); MCHC 31.4 g/dL (31.0-37.0); Mean Platelet Volume 8.9; Monocytes # (A) 0.6 k/uL (0-1.0); Monocytes % (A) 5 %; Neutrophils # (A) 7.1 k/uL (1.3-7.7); Neutrophils % (A) 62 %; Platelet Count 310 k/uL (150-450); RBC 3.66 m/uL (3.80-5.40); RDW 17.3 % (11.5-15.5); WBC 11.4 k/uL (3.8-10.6)
[2024-11-22 08:05] LABS: ALT 10 U/L (4-34); AST 15 U/L (14-36); African American GFR (CKD) 41 (>60 ml/min/1.73 sqM); Albumin 2.3 g/dL (3.5-5.0); Alkaline Phosphatase 126 U/L (38-126); Anion Gap 5 mmol/L; Blood Urea Nitrogen 25 mg/dL (7-17); Calcium 9.8 mg/dL (8.4-10.2); Carbon Dioxide 20 mmol/L (22-30); Chloride 113 mmol/L (98-107); Glucose 122 mg/dL (74-99); Non-African American GFR(CKD) 36 (>60 ml/min/1.73 sqM); Potassium 4.5 mmol/L (3.5-5.1); Sodium 138 mmol/L (137-145); Total Bilirubin 0.3 mg/dL (0.2-1.3); Total Protein 4.3 g/dL (6.3-8.2)
[2024-11-22] MEDS: DAPAGLIFLOZIN PROPANEDIOL 5 MG TABLET PO SCH (08:37)
[2024-11-22] MEDS: ASPIRIN 81 MG PO SCH (08:38)
[2024-11-22] MEDS ORDERED: ERGOCALCIFEROL 1,250 MCG (50,000 IU) CAPSULE PO SCH (09:00)
[2024-11-22] MEDS ORDERED: ASPIRIN 325 MG TAB PO SCH (09:00)
--- NOTE | 2024-11-22 09:28 | P.HPIM ---
History of Present Illness H&P Date: 11/21/24 Leticia Langley, is a 54-year-old female who presented to [facility] emergency room with a chief complaint of generalized weakness, patient stated that she was having severe weakness in bilateral lower extremities from the waist down she was unable to get up and stand up and EMS were called and she was brought into emergency room. She was evaluated in the emergency room vital examination on presentation revealed a temperature of 98.3 pulse 74 respiration 18 blood pressure 190/87 pulse ox 100% on room air Laboratory data revealed a white blood count of 13.0 hemoglobin 10.7 platelet count 298 sodium 136 potassium 4.2 chloride 108 CO2 22 BUN 24 creatinine 1.67 Testing in the emergency room revealed chest x-ray done in the emergency room revealed no acute abnormality, CT scan of the brain revealed remote ischemic changes of the anterior and posterior limbs of the internal capsule on the left and within the left centrum semiovale, no acute bleed or mass effect. Patient was admitted to medical floor for further evaluation and treatment Past medical history is significant for previous history of stroke, history of hypertension, history of coronary artery disease, history of diabetes mellitus, devious history of DVT, history of hyperlipidemia, history of obstructive sleep apnea, history of gastroesophageal reflux disease On review of systems patient is alert and oriented x 3 in no apparent distress there is no fever or chills no headache or dizziness no chest pain no shortness of breath no cough no nausea or vomiting no abdominal pain no diarrhea no blood in the stools no burning with urination no frequency or urgency and no hematuria, she is still complaining of weakness in bilateral lower extremities but states that it has improved since her initial presentation. Past Medical History Past Medical History: Blood Disorder, Coronary Artery Disease (CAD), Cancer, Chest Pain / Angina, CVA/TIA, Diabetes Mellitus, Deep Vein Thrombosis (DVT), Fibromyalgia, GERD/Reflux, Hyperlipidemia, Hypertension, Myocardial Infarction ([place]), Musculoskeletal Disorder, Neurologic Disorder, Renal Disease, Sleep Apnea/CPAP/BIPAP, Vascular Disorder Additional Past Medical History / Comment(s): IDDM type II, uterine/cervical and ovarian cancer, restless leg, Factor V blood disorder, DVT R leg, 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 - slight foot drag when tired/neuropathies, MS, [place] X 5, ABIGAIL with CPAP use, PAD/legs, R leg edema, past pancreatitis, [place] 10/27/23 Last Myocardial Infarction Date:: LAST ONE 10/27/23 History of Any Multi-Drug Resistant Organisms: None Reported Past Surgical History: Section, Cholecystectomy, Heart Catheterization With Stent, Hysterectomy, Tubal Ligation, Uterine Ablation Additional Past Surgical History / Comment(s): vein stripping right leg, radio frequency ablation of right back-02/22/2015, four stents on 04/03/16 and one on march 05, ovaries removed, colonscopy- polyp removal Past Anesthesia/Blood Transfusion Reactions: No Reported Reaction, Motion Sickness Additional Past Anesthesia/Blood Transfusion Reaction / Comment(s): mild claustrophobia Date of Last Stent Placement:: 04/03/16 Past Psychological History: Anxiety, Depression Additional Psychological History / Comment(s): Pt resides with her spouse. She is mostly in her wheelchair. She has a walker and cane. She has a dexcom. Her spouse assists her with her medication organization. Spouse also drives pt. Smoking Status: Current some day smoker Past Alcohol Use History: None Reported Additional Past Alcohol Use History / Comment(s): Pt started smoking in 1988 and quit recently Past Drug Use History: None Reported - Past Family History Father History Unknown: Yes Family Medical History: Congestive Heart Failure (CHF), Coronary Artery Disease (CAD), Diabetes Mellitus Mother History Unknown: Yes Family Medical History: Cancer, COPD, Hypertension, Respiratory Disorder Additional Family Medical History / Comment(s): emphysema, colon CA Medications and Allergies Home Medications Medication Instructions Recorded Confirmed Type Aspirin [Adult Low Dose Aspirin EC] 81 mg PO HS 11/26/17 11/21/24 History Isosorbide Mononitrate ER [Imdur] 60 mg PO HS 09/08/18 11/21/24 History Empagliflozin [Jardiance] 10 mg PO DAILY 10/06/22 11/21/24 History Nitroglycerin Sl Tabs [Nitrostat] 0.4 mg SL Q5M PRN 10/06/22 11/21/24 History INSULIN LISPRO (For Pump) [humaLOG 0.01 units SQ-PUMP CONTINUOUS 07/17/23 11/21/24 History (For Pump)] Atorvastatin [Lipitor] 40 mg PO HS 12/11/23 11/21/24 History ALPRAZolam [Xanax] 1 mg PO TID PRN 03/28/24 11/21/24 History Cinacalcet [Sensipar] 30 mg PO FR@2100 03/28/24 11/21/24 History Ondansetron Odt [Zofran ODT] 8 mg PO Q12HR 05/04/24 11/21/24 History Albuterol Inhaler [Ventolin Hfa 2 puff INHALATION RT-QID PRN 08/26/24 11/21/24 History Inhaler] carvediloL [Coreg] 25 mg PO BID-W/MEALS 08/26/24 11/21/24 History HYDROcodone/APAP 7.5-325MG [[place] 1 tab PO TID PRN 11/20/24 11/21/24 History 7.5-325] Losartan [Cozaar] 12.5 mg PO HS 11/20/24 11/21/24 History Allergies Allergy/AdvReac Type Severity Reaction Status Date / Time Fish Containing Products Allergy Anaphylaxis Verified 11/21/24 13:03 Iodinated Contrast Media Allergy Anaphylaxis Verified 11/21/24 13:03 [Iodinated Contrast Media - IV Dye] Sulfa (Sulfonamide Allergy Anaphylaxis Verified 11/21/24 13:03 Antibiotics) sulfamethoxazole Allergy Anaphylaxis Verified 11/21/24 13:03 [From Septra] tree nut [Nut] Allergy Anaphylaxis Verified 11/21/24 13:03 trimethoprim [From ] Allergy Anaphylaxis Verified 11/21/24 13:03 Physical Exam Vitals: Vital Signs Temp Pulse Pulse Resp BP BP Pulse Ox 11/21/24 14:53 96.1 F L 69 18 203/94 97 11/21/24 14:45 69 18 11/21/24 14:44 96.1 F L 69 18 203/94 97 11/21/24 13:37 98.2 F 63 18 182/85 95 11/21/24 11:30 74 20 192/81 98 11/21/24 09:39 98.3 F 74 18 190/87 100 Intake and Output 11/21/24 11/21/24 11/21/24 06:59 14:59 22:59 Intake Total 350 Balance 350 Intake: Oral 350 Other: Voiding Method Toilet # Voids 2 # Bowel Movements 1 Weight 84.822 kg In general patient is alert and oriented x 3 in no distress HEENT head normocephalic and atraumatic Neck is supple no JVD no goiter no lymphadenopathy no carotid bruit Chest examination is clear to auscultation no crackles no wheezing Cardiac exam reveals regular heart sounds S1 and S2 no gallops no murmurs Abdomen is soft nontender no organomegaly with normal bowel sounds Extremity exam reveals no edema no cyanosis or clubbing Neurological examination reveals no motor weakness in the right upper extremity and the right lower extremity as compared to the left, however this is a chronic finding per patient there is also right upper extremity spasticity. Results CBC & Chem 7: 11/22/24 07:01 11/22/24 07:01 Labs: Abnormal Lab Results - Last 24 Hours (Table) 11/21/24 11/21/24 11/21/24 Range/Units 10:00 10:00 10:00 WBC 13.0 H (3.8-10.6) k/uL Hgb 10.7 L (11.4-16.0) gm/dL Hct 33.3 L (34.0-46.0) % RDW 17.2 H (11.5-15.5) % Neutrophils # 9.4 H (1.3-7.7) k/uL APTT 21.0 L (22.0-30.0) sec Sodium 136 L (137-145) mmol/L Chloride 108 H (98-107) mmol/L BUN 24 H (7-17) mg/dL Creatinine 1.67 H (0.52-1.04) mg/dL Glucose 179 H (74-99) mg/dL POC Glucose (mg/dL) (70-110) mg/dL Alkaline Phosphatase 159 H (38-126) U/L Total Protein 4.7 L (6.3-8.2) g/dL Albumin 2.5 L (3.5-5.0) g/dL 11/21/24 Range/Units 16:47 WBC (3.8-10.6) k/uL Hgb (11.4-16.0) gm/dL Hct (34.0-46.0) % RDW (11.5-15.5) % Neutrophils # (1.3-7.7) k/uL APTT (22.0-30.0) sec Sodium (137-145) mmol/L Chloride (98-107) mmol/L BUN (7-17) mg/dL Creatinine (0.52-1.04) mg/dL Glucose (74-99) mg/dL POC Glucose (mg/dL) 226 H (70-110) mg/dL Alkaline Phosphatase (38-126) U/L Total Protein (6.3-8.2) g/dL Albumin (3.5-5.0) g/dL Thrombosis Risk Factor Assmnt - Choose All That Apply Any of the Below Risk Factors Present?: Yes Each Factor Represents 1 point: Age 41-60 years, Obesity (BMI >25) Other Risk Factors: Yes Each Risk Factor Represents 3 Points: Family history of DVT/PE, History of DVT/PE Other congenital or acquired thrombophilia - If yes, enter type in comment: No Thrombosis Risk Factor Assessment Total Risk Factor Score: 8 Thrombosis Risk Factor Assessment Level: High Risk Assessment and Plan Plan: Bilateral lower extremity weakness and left lower extremity numbness, possible new ischemic stroke Hypertensive emergency on presentation Leukocytosis on presentation, no clear source of infection, with normal chest x- ray and urine analysis Underlying history of hypertension Underlying history of hyperlipidemia Underlying history of diabetes mellitus type 2 insulin-dependent, maintained on insulin pump Previous history of ischemic stroke in 2014 with residual right hemiplegia Underlying history of chronic kidney disease Underlying history of COPD Underlying history of tobacco abuse Underlying history of multiple sclerosis Underlying history of fibromyalgia At this time patient was seen and examined Home medications reviewed and reordered Neurology consultation requested For DVT prophylaxis subcu Lovenox For GI prophylaxis Protonix Will follow closely
[2024-11-22 11:25] LABS: Glucose,Whole Blood 146 mg/dL (70-110)
[2024-11-22] MEDS: ENOXAPARIN 40 MG/0.4 ML SYRINGE SQ SCH (12:04)
[2024-11-22 12:29] VITALS: BP 207/86; PULSE 67; TEMP 98.4
[2024-11-22 13:10] LABS: Chol/HDL Ratio 4.65 Ratio; LDL Cholesterol,Calculated 96.3 mg/dL (0.0-131.0)
[2024-11-22] MEDS ORDERED: CYANOCOBALAMIN 1,000 MCG/ML 1 ML VIAL IM SCH (15:00)
[2024-11-22] MEDS ORDERED: PYRIDOXINE 50 MG TAB PO SCH (15:15)
[2024-11-22] MEDS ORDERED: FOLIC ACID 1 MG TAB PO SCH (15:15)
--- NOTE | 2024-11-22 23:27 | P.PN ---
Subjective Progress Note Date: 11/22/24 Patient was seen for a follow-up. Patient states she is doing better. She walked with a quad cane. Her speech is better. No new concerns. Her symptoms have not quite resolved, but much improved. Objective - Vital Signs Vital signs: Vital Signs Temp 98.4 F 11/22/24 12:28 Pulse 67 11/22/24 14:00 Resp 16 11/22/24 14:00 BP 207/86 11/22/24 12:28 Pulse Ox 99 11/22/24 12:28 FiO2 Intake & Output 11/21/24 11/22/24 11/22/24 18:59 06:59 18:59 Intake Total 350 1500 720 Output Total 500 600 Balance 350 1000 120 Weight 84.822 kg Intake: Intake, IV Titration 1500 Amount Sodium Chloride 0.9% 1, 1500 000 ml @ 100 mls/hr IV . Q10H SARAHY Rx#:[id number] Oral 350 720 Output: Urine 500 600 Other: Voiding Method Toilet Toilet Toilet # Voids 2 0 1 # Bowel Movements 1 - Exam Her speech is better. Rest of the examination is unchanged. - Labs CBC & Chem 7: 11/22/24 07:01 11/22/24 07:01 Labs: Abnormal Lab Results - Last 24 Hours (Table) 11/21/24 11/21/24 11/21/24 Range/Units 10:00 16:47 20:17 WBC (3.8-10.6) k/uL RBC (3.80-5.40) m/uL Hgb (11.4-16.0) gm/dL Hct (34.0-46.0) % RDW (11.5-15.5) % Chloride (98-107) mmol/L Carbon Dioxide (22-30) mmol/L BUN (7-17) mg/dL Creatinine (0.52-1.04) mg/dL Glucose (74-99) mg/dL POC Glucose (mg/dL) 226 H 283 H (70-110) mg/dL Hemoglobin A1c 8.8 H (<=6.0) % Total Protein (6.3-8.2) g/dL Albumin (3.5-5.0) g/dL Triglycerides (0.00-149.00) mg/dL VLDL Cholesterol, Calc (5.00-40.00) mg/dL Vitamin D 25-Hydroxy (30.0-100.0) ng/mL Urine Protein (Negative) Urine Glucose (UA) (Negative) Urine Mucus (None) /hpf 11/21/24 11/22/24 11/22/24 Range/Units 22:00 01:55 05:59 WBC (3.8-10.6) k/uL RBC (3.80-5.40) m/uL Hgb (11.4-16.0) gm/dL Hct (34.0-46.0) % RDW (11.5-15.5) % Chloride (98-107) mmol/L Carbon Dioxide (22-30) mmol/L BUN (7-17) mg/dL Creatinine (0.52-1.04) mg/dL Glucose (74-99) mg/dL POC Glucose (mg/dL) 113 H 128 H (70-110) mg/dL Hemoglobin A1c (<=6.0) % Total Protein (6.3-8.2) g/dL Albumin (3.5-5.0) g/dL Triglycerides (0.00-149.00) mg/dL VLDL Cholesterol, Calc (5.00-40.00) mg/dL Vitamin D 25-Hydroxy (30.0-100.0) ng/mL Urine Protein 3+ H (Negative) Urine Glucose (UA) 2+ H (Negative) Urine Mucus Rare H (None) /hpf 11/22/24 11/22/24 11/22/24 Range/Units 07:01 07:01 11:24 WBC 11.4 H (3.8-10.6) k/uL RBC 3.66 L (3.80-5.40) m/uL Hgb 10.1 L (11.4-16.0) gm/dL Hct 32.2 L (34.0-46.0) % RDW 17.3 H (11.5-15.5) % Chloride 113 H (98-107) mmol/L Carbon Dioxide 20 L (22-30) mmol/L BUN 25 H (7-17) mg/dL Creatinine 1.64 H (0.52-1.04) mg/dL Glucose 122 H (74-99) mg/dL POC Glucose (mg/dL) 146 H (70-110) mg/dL Hemoglobin A1c (<=6.0) % Total Protein 4.3 L (6.3-8.2) g/dL Albumin 2.3 L (3.5-5.0) g/dL Triglycerides 268.00 H (0.00-149.00) mg/dL VLDL Cholesterol, Calc 53.60 H (5.00-40.00) mg/dL Vitamin D 25-Hydroxy <5.0 L (30.0-100.0) ng/mL Urine Protein (Negative) Urine Glucose (UA) (Negative) Urine Mucus (None) /hpf Assessment and Plan Assessment: * Possible TIA manifesting with numbness of the left leg, and difficulty with ambulation. Symptoms have significantly improved. Patient continues to have multiple stroke risk factors as mentioned below. 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 She had history of multiple s trokes/TIA in the past. Patient has multiple vascular factors. * Recommend continuing dual antiplatelet medication therapy because of high risk for recurrent strokes. Patient currently on aspirin 81 mg daily. We will also add Plavix 75 mg daily. Continue DAPT. * Carotid Doppler revealed no evidence of hemodynamically significant stenosis in the CCA or ICA on either side. Antegrade flow in both vertebral arteries. * Patient had a 2-D echo performed 05/12/2024, in which LVEF is 55-60%. No obvious regional wall motion abnormalities. Severely increased left ventricul ar wall thickness. Normal left and right atrial size. Mildly dilated aortic root. Negative bubble study. * Hemoglobin A1c 8.8, much improved. Last A1c 11.6 on 07/30/2024. * Fasting lipid panel cholesterol 191, LDL 96, HDL 41 and triglycerides 268. Continue Lipitor 40 mg daily. * B12 273, folate 9.30, B6, vitamin D < 5.0. We will start B12, folate, B6 and vitamin D replacement. * Recommended complete tobacco cessation. * Dr. Joni Figueredo to resume neurology service in the morning. Addendum: Found out patient shortly after I saw her, signed out [facility] [employer] [employer]ICE at 4:01 PM.
[2024-11-24] MEDS ORDERED: CYANOCOBALAMIN 500 MCG TAB PO SCH (09:00)
[2024-11-27] MEDS ORDERED: CINACALCET 30 MG TAB PO SCH (21:00)
== END 2024-11-22 15:53 | disposition left against medical advice (07) ==
LOC: EC 09:37 → 6NMEDSUR 12:38 → 3SCARD 13:07
PROVIDERS: ADMIT Internal Medicine; ATTEND Internal Medicine
DX: R20.0 Anesthesia of skin (principal); R26.2 Difficulty in walking, not elsewhere classified; R53.1 Weakness; Z53.29 Procedure and treatment not carried out because of patient's decision for other reasons; I25.10 Atherosclerotic heart disease of native coronary artery without angina pectoris; K21.9 Gastro-esophageal reflux disease without esophagitis; E78.5 Hyperlipidemia, unspecified; I16.1 Hypertensive emergency; I12.9 Hypertensive chronic kidney disease with stage 1 through stage 4 chronic kidney disease, or unspecified chronic kidney disease; N18.9 Chronic kidney disease, unspecified; E11.22 Type 2 diabetes mellitus with diabetic chronic kidney disease; G47.33 Obstructive sleep apnea (adult) (pediatric); E11.51 Type 2 diabetes mellitus with diabetic peripheral angiopathy without gangrene; G35 Multiple sclerosis; J44.9 Chronic obstructive pulmonary disease, unspecified; E53.1 Pyridoxine deficiency; E55.9 Vitamin D deficiency, unspecified; D72.829 Elevated white blood cell count, unspecified; M79.7 Fibromyalgia; E53.8 Deficiency of other specified B group vitamins; F32.A Depression, unspecified; F41.9 Anxiety disorder, unspecified; I69.351 Hemiplegia and hemiparesis following cerebral infarction affecting right dominant side; I25.2 Old myocardial infarction; F17.200 Nicotine dependence, unspecified, uncomplicated; Z85.41 Personal history of malignant neoplasm of cervix uteri; Z85.42 Personal history of malignant neoplasm of other parts of uterus; Z85.43 Personal history of malignant neoplasm of ovary; Z86.718 Personal history of other venous thrombosis and embolism; Z95.5 Presence of coronary angioplasty implant and graft; Z79.82 Long term (current) use of aspirin; Z79.84 Long term (current) use of oral hypoglycemic drugs; Z79.899 Other long term (current) drug therapy; Z79.4 Long term (current) use of insulin; Z96.41 Presence of insulin pump (external) (internal); Z88.2 Allergy status to sulfonamides
CPT/HCPCS: 96360; 96361; 96372; 99285; 36415; 93005; 84207; 80061; 80053 ×2; 82607; 82550; 82746; 85025 ×2; 85610; 85730; 81001; 82306; 87086; 83036; 71046; 93880; 70450; G0378 ×2; J1650

== ENCOUNTER → 2025-01-19 | Outpatient (CLI) | payer OTHER ==
--- NOTE | 2025-01-20 07:42 | MR ---
INDICATION: Patient age:Female; 54 years old; Reason for study: G35; [facility]. COMPARISON: MR thoracic spine 11/28/2022. History uterine, cervical and ovarian cancer. TECHNIQUE: Multi planar, multi sequence imaging was performed of the thoracic spine before and after the uneventful administration of 9 mL of Gadobutrol intravenously. FINDINGS: Motion degradation due to patient leg spasms. Mild wedging at T11 redemonstrated with increased kyphosis. The thoracic vertebral bodies have preser delmi heights. The osseous structure have normal signal intensity. No abnormal STIR signal. Thoracic sp inal cord appears unremarkable. There is no evidence of extradural defects or central spinal canal na rrowing at any thoracic vertebral body level. Intervertebral discs demonstrate normal signal intensit y. Significant motion degradation on postcontrast sequences without gross evidence of abnormality. IMPRESSION: Motion degraded examination without definitive evidence of demyelination or abnormal enha ncement. No evidence for significant spinal canal or neural foraminal stenosis. [facility], , 01/20/2025 7:39 AM
== END | disposition home or self-care (01) ==
LOC: RADMRIMAIN 20:25
PROVIDERS: ATTEND Psychiatry & Neurology Neurology
DX: G35 Multiple sclerosis (principal); M40.294 Other kyphosis, thoracic region
CPT/HCPCS: 72157; A9585

== ENCOUNTER → 2025-01-20 | Outpatient (CLI) | payer OTHER ==
--- NOTE | 2025-01-21 09:13 | MR ---
EXAMINATION TYPE: MR brain/cspine wo/w DATE OF EXAM: 01/20/2025 9:52 PM COMPARISON: Prior MRI brain and cervical spine December 10, 2022. CLINICAL INDICATION: Female, 54 years old with history of G35, MS IV Contrast: 9 cc Gadobutrol (None if empty) TECHNIQUE: Multiplanar, multisequence images of the brain and brainstem and cervical spine are all performed wit hout and with IV contrast, utilizing 9 mL intravenous Gadobutrol . Demyelinating disease protocol. FINDINGS: BRAIN: T2 Lesions Present : Yes Approximate Number of Lesions: Difficult to accurately count due to confluent appearance Locations Identified : Predominantly deep and periventricular. Most prominent findings on the left re demonstrated extending superiorly are stable. Size of Reference Lesion(s): 1. Stable 6 x 4 millimeter anterior left frontal lesion axial image 23 Enhancing Lesion(s) Present: No T1 Hypointense Lesion(s) Present: Yes Change from Prior: Stable Diffusion weighted images demonstrate no evidence of a recent infarct or other diffusion abnormality. There is no worrisome extra-axial fluid collection. The ventricular system and cisternal spaces ar e normal in size and appearance. The brain volume is age appropriate. Midline structures demonstrate normal morphology. The craniocervical junction appears within normal limits. Post contrast images demonstrate no abnormal enhancement. The dural venous sinuses appear pa tent. The visualized sinuses are clear and the globes are intact. IMPRESSION: Persistent moderate to severe white matter changes likely on basis of known multiple scle rosis. No significant change from most recent MRI. No enhancing lesions are seen. C-SPINE: Sagittal images of the cervical spine show the craniocervical junction to remain within normal limits . The cervical and upper thoracic spinal cord is normal in course, caliber, and signal. Vertebral a lignment is stable and satisfactory. The vertebral body and intravertebral disk heights remain rene l. The bone marrow signal intensity is within normal limits. No abnormal postcontrast enhancement is seen. Axial images show C2-C3 through C4-C5 levels remain within normal limits. Axial images at C5-C6 level shows broad-based left paracentral disc protrusion effacing anterolateral thecal sac and causing asymmetric mild/moderate left-sided neural foraminal narrowing. Axial images at C6-C7 level shows central disc protrusion effacing anterior thecal sac and causing mi ld left-sided neural foraminal narrowing. Axial images at C7-T1 level remain within normal limits. IMPRESSION: No MRI evidence for demyelinating disease involvement in the cervical spinal cord. Multil evel degenerative change at C5-C6 and C6-C7 level is redemonstrated and fairly stable as detailed abo ve. [facility], , 01/21/2025 9:11 AM
== END | disposition home or self-care (01) ==
LOC: RADMRIMAIN 20:45
PROVIDERS: ATTEND Psychiatry & Neurology Neurology
DX: G35 Multiple sclerosis (principal); R90.82 White matter disease, unspecified; M47.812 Spondylosis without myelopathy or radiculopathy, cervical region; M50.322 Other cervical disc degeneration at C5-C6 level; M99.71 Connective tissue and disc stenosis of intervertebral foramina of cervical region
CPT/HCPCS: 70553; 72156; A9585

== ENCOUNTER → 2025-01-22 | Outpatient (CLI) | payer OTHER ==
[2025-01-23 01:56] LABS: Basophils # (A) 0.07 X 10*3/uL (0.00-0.10); Basophils % (A) 0.5 %; Eosinophils # (A) 0.17 X 10*3/uL (0.04-0.35); Eosinophils % (A) 1.2 %; HCT 37.4 % (37.2-46.3); HGB 11.7 g/dL (12.0-15.0); Lymphocytes # (A) 3.39 X 10*3/uL (0.90-5.00); MCH 28.5 pg (27.0-32.0); MCHC 31.3 g/dL (32.0-37.0); MCV 91.2 FL (80.0-97.0); Mean Platelet Volume 12.1 FL (9.5-12.2); Monocytes # (A) 0.56 X 10*3/uL (0.20-1.00); NRBC Per 100 WBC 0 X 10*3/uL (0.00-0.01); Neutrophils # (A) 9.83 X 10*3/uL (1.80-7.70); Neutrophils % (A) 69.6 %; Platelet Count 348 X 10*3/uL (140-440); RDW 17.1 % (11.5-14.5); WBC 14.12 X 10*3/uL (4.50-10.00)
[2025-01-23 03:03] LABS: BUN/Creat Ratio 11.19 Ratio (12.00-20.00); Blood Urea Nitrogen 35.8 mg/dL (9.0-27.0); Carbon Dioxide 20.7 mmol/L (21.6-31.8); Chloride 105 mmol/L (96-109); Glucose 332 mg/dL (70-110); Potassium 5.2 mmol/L (3.5-5.5); Sodium 136 mmol/L (135-145)
[2025-01-23 03:04] LABS: ALT 10 U/L (8-44); AST 12 U/L (13-35); Albumin 2.9 g/dL (3.8-4.9); Albumin/Globulin Ratio 1.61 Ratio (1.60-3.17); Alkaline Phosphatase 111 U/L (41-126); Bilirubin, Conjugated <0.20 mg/dL (0.20-0.40); Calcium 9.6 mg/dL (8.7-10.3); Globulin 1.8 g/dL (1.6-3.3); Total Bilirubin <0.2 mg/dL (0.3-1.2); Total Protein 4.7 g/dL (6.2-8.2)
[2025-01-23 05:36] LABS: HIV 2 AB Non-Reactive (Non-Reactive); HIV AB P24 Non-Reactive (Non-Reactive); HIV P24 AG Non-Reactive (Non-Reactive)
== END | disposition home or self-care (01) ==
LOC: LABWHC1 15:32
PROVIDERS: ATTEND Psychiatry & Neurology Pain Medicine
DX: G35 Multiple sclerosis (principal)
CPT/HCPCS: 36415; 80053; 82248; 82306; 82607; 83036; 84207; 84445; 84591; 85025; 87390

== ENCOUNTER 2025-04-10 23:20 | Inpatient (IN) | payer OTHER ==
[2025-04-11] MEDS: ONDANSETRON 4 MG/2 ML VIAL IVP STA (00:04)
[2025-04-11] MEDS: SODIUM CHLORIDE 0.9% 1,000 ML IV ONE (00:04)
[2025-04-11] MEDS: MORPHINE SULFATE 4 MG/ML SYRINGE IVP STA (00:06)
--- NOTE | 2025-04-11 00:18 | ED ---
General Adult HPI - General Chief complaint: Weakness Stated complaint: Weakness Time Seen by Provider: 04/10/25 23:35 Source: family Mode of arrival: wheelchair - History of Present Illness Initial comments: 54-year-old female presenting with chief complaint of diarrhea and abdominal pain. Patient states this has been ongoing for 1 week. States that she is having multiple liquid bowel movements daily. She states that in the middle of eating a meal she regularly has to stop to use the bathroom. She does get abdominal pain that starts in the epigastric region and radiates down the left side. No hematochezia or melena. Admits to nausea and vomiting. No chest pain or difficulty breathing. No fever or chills. No urinary symptoms. - Related Data Home Medications Medication Instructions Recorded Confirmed Aspirin [Adult Low Dose Aspirin EC] 81 mg PO DAILY 11/26/17 04/11/25 Isosorbide Mononitrate ER [Imdur] 60 mg PO DAILY 09/08/18 04/11/25 Empagliflozin [Jardiance] 10 mg PO DAILY 10/06/22 04/11/25 Nitroglycerin Sl Tabs [Nitrostat] 0.4 mg SL Q5M PRN 10/06/22 04/11/25 ALPRAZolam [Xanax] 1 mg PO DAILY 03/28/24 04/11/25 Cinacalcet [Sensipar] 30 mg PO FR 03/28/24 04/11/25 Albuterol Inhaler [Ventolin Hfa 2 puff INHALATION RT-QID PRN 08/26/24 04/11/25 Inhaler] carvediloL [Coreg] 25 mg PO BID-W/MEALS 08/26/24 04/11/25 HYDROcodone/APAP 7.5-325MG [[place]olt 1 tab PO TID PRN 11/20/24 04/11/25 7.5-325] Losartan [Cozaar] 12.5 mg PO MOTUWETHFR 11/20/24 04/11/25 Citalopram Hydrobromide [CeleXA] 40 mg PO DAILY 04/11/25 04/11/25 Clopidogrel [Plavix] 75 mg PO DAILY 04/11/25 04/11/25 Ergocalciferol (Vitamin D2) 1,250 mcg PO TU 04/11/25 04/11/25 [Drisdol (GEQ) 1,250 MCG (50,000 IU)] Insulin Glargine,Hum.rec.anlog 30 - 35 units SQ DAILY 04/11/25 04/11/25 [Lantus Solostar Pen] Insulin Lispro [humaLOG Kwikpen] See Protocol SQ TID-W/MEALS 04/11/25 04/11/25 Lacosamide [Vimpat] 50 mg PO BID 04/11/25 04/11/25 Sodium Bicarbonate Tab 650 mg PO BID 04/11/25 04/11/25 amLODIPine [Norvasc] 10 mg PO DAILY 04/11/25 04/11/25 carvediloL [Coreg] 6.25 mg PO BID 04/11/25 04/11/25 hydrALAZINE HCL [Apresoline] 50 mg PO TID 04/11/25 04/11/25 Allergies Allergy/AdvReac Type Severity Reaction Status Date / Time Fish Containing Products Allergy Anaphylaxis Verified 04/11/25 10:23 Iodinated Contrast Media Allergy Anaphylaxis Verified 04/11/25 10:23 [Iodinated Contrast Media - IV Dye] Sulfa (Sulfonamide Allergy Anaphylaxis Verified 04/11/25 10:23 Antibiotics) sulfamethoxazole Allergy Anaphylaxis Verified 04/11/25 10:23 [From Septra] tree nut [Nut] Allergy Anaphylaxis Verified 04/11/25 10:23 trimethoprim [From Junra] Allergy Anaphylaxis Verified 04/11/25 10:23 Review of Systems ROS Statement: Those systems with pertinent positive or pertinent negative responses have been documented in the HPI. ROS Other: All systems not noted in ROS Statement are negative. 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 - slight foot drag when tired/neuropathies, MS, [place] X 5, ABIGAIL with CPAP use, PAD/legs, R leg edema, past pancreatitis, [place] 10/27/23 Last Myocardial Infarction Date:: LAST ONE 10/27/23 History of Any Multi-Drug Resistant Organisms: None Reported Past Surgical History: Section, Cholecystectomy, Heart Catheterization With Stent, Hysterectomy, Tubal Ligation, Uterine Ablation Additional Past Surgical History / Comment(s): vein stripping right leg, radio frequency ablation of right back-02/22/2015, four stents on 04/03/16 and one on march 05, ovaries removed, colonscopy- polyp removal Past Anesthesia/Blood Transfusion Reactions: No Reported Reaction, Motion Sickness Additional Past Anesthesia/Blood Transfusion Reaction / Comment(s): mild claustrophobia Date of Last Stent Placement:: 04/03/16 Past Psychological History: Anxiety, Depression Smoking Status: Current some day smoker Past Alcohol Use History: None Reported Past Drug Use History: None Reported - Past Family History Father History Unknown: Yes Family Medical History: Congestive Heart Failure (CHF), Coronary Artery Disease (CAD), Diabetes Mellitus Mother History Unknown: Yes Family Medical History: Cancer, COPD, Hypertension, Respiratory Disorder Additional Family Medical History / Comment(s): emphysema, colon CA General Exam General appearance: alert, in no apparent distress Head exam: Present: atraumatic, normocephalic, normal inspection Eye exam: Present: normal appearance, EOMI Neck exam: Present: normal inspection. Absent: meningismus Respiratory exam: Present: normal lung sounds bilaterally. Absent: respiratory distress, wheezes, rales, rhonchi, stridor Cardiovascular Exam: Present: regular rate, normal rhythm, normal heart sounds. Absent: systolic murmur, diastolic murmur, rubs, gallop, clicks GI/Abdominal exam: Present: soft, tenderness. Absent: distended, guarding, rebound, rigid Neurological exam: Present: alert, oriented X3 Psychiatric exam: Present: normal affect, normal mood Skin exam: Present: warm, dry, normal color Course Vital Signs 04/10/25 04/11/25 04/11/25 23:27 00:35 01:15 Temperature 97.9 F Pulse Rate 77 79 88 Respiratory 18 18 18 Rate Blood Pressure 210/81 213/83 216/104 O2 Sat by Pulse 99 96 96 Oximetry 04/11/25 04/11/25 04/11/25 02:10 03:45 05:57 Temperature Pulse Rate 76 83 72 Respiratory 16 18 16 Rate Blood Pressure 148/75 144/62 124/75 O2 Sat by Pulse 96 96 96 Oximetry 04/11/25 04/11/25 04/11/25 06:54 11:02 12:00 Temperature Pulse Rate 70 81 Respiratory 18 16 Rate Blood Pressure 132/74 148/66 162/79 O2 Sat by Pulse 96 96 Oximetry 04/11/25 04/11/25 04/11/25 12:18 15:13 16:59 Temperature Pulse Rate 82 78 Respiratory 18 16 Rate Blood Pressure 162/79 119/54 111/55 O2 Sat by Pulse 92 L 94 L Oximetry Medical Decision Making - Medical Decision Making Was pt. sent in by a medical professional or institution (, PA, MANAGER CODING, urgent care, hospital, or correction...) When possible be specific @ -No Did you speak to anyone other than the patient for history (EMS, parent, family, police, friend...)? What history was obtained from this source @ -No Did you review nursing and triage notes (agree or disagree)? Why? @ -I reviewed and agree with nursing and triage notes Were old charts reviewed (outside hosp., previous admission, EMS record, old EKG, old radiological studies, urgent care reports/EKG's, correction records)? Report findings @ -No old charts were reviewed Differential Diagnosis (chest pain, altered mental status, abdominal pain women, abdominal pain men, vaginal bleeding, weakness, fever, dyspnea, syncope, headache, dizziness, GI bleed, back pain, seizure, CVA, palpatations, mental health, musculoskeletal)? @ -MDM Differential Abdominal Pain Men: Appendicitis, cholecystitis, diverticulosis, ischemic bowel, pancreatitis, hepatitis, UTI, gastroenteritis, AAA, incarcerated hernia, bowel obstruction, constipation, inflammatory bowel, hepatitis, peptic ulcer disease, splenic infarction, perforated viscus, testicular torsion... This is not meant to be an all-inclusive list EKG interpreted by me (3pts min.). @ -EKG shows sinus rhythm ventricular rate 77 CO interval 153 QRS 165 QT 443 QTc 475 X-rays interpreted by me (1pt min.). @ -None done CT interpreted by me (1pt min.). @ -CT shows nonobstructing bilateral renal calculi versus vascular calcifications. No hydronephrosis of either kidney. Nonspecific hepatomegaly. Fecalization of the small bowel is noted without obstruction. This could relate to slow transit or bacterial overgrowth. Severe U/S interpreted by me (1pt. min.). @ -None done What testing was considered but not performed or refused? (CT, X-rays, U/S, labs)? Why? @ -None What meds were considered but not given or refused? Why? @ -None Did you discuss the management of the patient with other professionals (professionals i.e. DrYamile, PA, MANAGER CODING, lab, RT, psych nurse, manager social services, manager business information, teacher, chief learning officer, showcase trimmer)? Give summary @ -My attending spoke with Dr. Sanchez who accepts admission Was smoking cessation discussed for >3mins.? @ -No Was critical care preformed (if so, how long)? @ -No Were there social determinants of health that impacted care today? How? (Homelessness, low income, unemployed, alcoholism, drug addiction, transportation, low edu. Level, literacy, decrease access to med. care, nursing home, rehab)? @ -No Was there de-escalation of care discussed even if they declined (Discuss DNR or withdrawal of care, Hospice)? DNR status @ -No What co-morbidities impacted this encounter? (DM, HTN, Smoking, COPD, CAD, Cancer, CVA, ARF, Chemo, Hep., AIDS, mental health diagnosis, sleep apnea, morbid obesity)? @ -CAD, CKD, diabetes Was patient admitted / discharged? Hospital course, mention meds given and rou te, prescriptions, significant lab abnormalities, going to OR and other pertinent info. @ -54-year-old female presenting with chief complaint of abdominal pain and diarrhea ongoing for 1 week. History and physical examination are conducted. White count 15.68. Hemoglobin 11. BUN 22 creatinine 2.58 consistent with the patient's baseline. Glucose is 604, patient was given 8 units of insulin and sugar improved to 367. No ketones in the urine and anion gap is normal at 11. Lactic acid 2.6, patient is receiving IV fluids. Troponin 0.182. Patient does have a chronically elevated troponin likely secondary to her CKD. However this is quite a jump from her most recent value on 12/05 of 0.071. May be worsened secondary to dehydration. She is having no chest pain. Does not seem to align clinically with ACS. Patient is still feeling unwell and having abdominal pain. She will be admitted for observation with consult to cardiology for her elevated troponin. C. difficile testing is ordered. Patient is educated on today's findings and she is agreeable with this plan. I discussed this case with my attending Dr. Lewis Undiagnosed new problem with uncertain prognosis? @ -No Drug Therapy requiring intensive monitoring for toxicity (Heparin, Nitro, Insulin, Cardizem)? @ -No Were any procedures done? @ -No Diagnosis/symptom? @ -Elevated troponin, gastroenteritis, weakness Acute, or Chronic, or Acute on Chronic? @ -Acute Uncomplicated (without systemic symptoms) or Complicated (systemic symptoms)? @ -Complicated Side effects of treatment? @ -No Exacerbation, Progression, or Severe Exacerbation? @ -No Poses a threat to life or bodily function? How? (Chest pain, [place], [place], pneumonia, PE, COPD, DKA, ARF, appy, cholecystitis, CVA, Diverticulitis, Homicidal, Suicidal, threat to staff... and all critical care pts) @ -Yes - Lab Data Result diagrams: 04/12/25 05:23 04/12/25 05:23 Lab Results 04/11/25 04/11/25 04/11/25 Range/Units 00:01 00:01 00:01 WBC 15.68 H (4.50-10.00) 10*3/uL RBC 3.63 L (4.10-5.20) 10*6/uL Hgb 11.0 L (12.0-15.0) g/dL Hct 33.3 L (37.2-46.3) % MCV 91.7 (80.0-97.0) fL MCH 30.3 (27.0-32.0) pg MCHC 33.0 (32.0-37.0) g/dL Plt Count 267 (140-440) 10*3/uL MPV 12.1 (9.5-12.2) fL Immature Gran % (Auto) 0.5 % Neutrophils % 76.3 % Lymphocytes % 17.3 % Monocytes % 4.7 % Eosinophils % 0.8 % Basophils % 0.4 % Immature Gran # 0.08 H (0.00-0.04) 10*3/uL Neutrophils # 11.97 H (1.80-7.70) 10*3/uL Lymphocytes # 2.71 (0.90-5.00) 10*3/uL Monocytes # 0.74 (0.20-1.00) 10*3/uL Eosinophils # 0.12 (0.04-0.35) 10*3/uL Basophils # 0.06 (0.00-0.10) 10*3/uL Sodium 131 L (137-145) mmol/L Potassium 4.3 (3.5-5.1) mmol/L Chloride 105 (98-107) mmol/L Carbon Dioxide 15 L (22-30) mmol/L Anion Gap 11 mmol/L BUN 22 H (7-17) mg/dL Creatinine 2.58 H (0.52-1.04) mg/dL Est GFR (CKD-EPI)AfAm 24 (>60 ml/min/1.73 sqM) Est GFR (CKD-EPI)NonAf 21 (>60 ml/min/1.73 sqM) Glucose 604 H* (74-99) mg/dL POC Glucose (mg/dL) (70-110) mg/dL POC Glu Staking [employer] Operator ID Estimated Ave Glu mg/dL mg/dL Hemoglobin A1c (<=6.0) % Lactic Ac Sepsis Rflx Plasma Lactic Acid Faheem 2.6 H* (0.7-2.0) mmol/L Calcium 9.9 (8.4-10.2) mg/dL Total Bilirubin 0.3 (0.2-1.3) mg/dL AST 19 (14-36) U/L ALT 12 (4-34) U/L Alkaline Phosphatase 205 H (38-126) U/L Troponin I (0.000-0.034) ng/mL Total Protein 5.2 L (6.3-8.2) g/dL Albumin 3.0 L (3.5-5.0) g/dL Amylase 39 (30-110) U/L Lipase 91 (23-300) U/L Urine Color Urine Appearance (Clear) Urine pH (5.0-8.0) Ur Specific Vaughn (1.001-1.035) Urine Protein (Negative) Urine Glucose (UA) (Negative) Urine Ketones (Negative) Urine Blood (Negative) Urine Nitrite (Negative) Urine Bilirubin (Negative) Urine Urobilinogen (<2.0) mg/dL Ur Leukocyte Esterase (Negative) Urine WBC (0-5) /hpf Ur Squamous Epith Cells (0-4) /hpf Amorphous Sediment (None) /hpf Urine Bacteria (None) /hpf Urine Mucus (None) /hpf 04/11/25 04/11/25 04/11/25 Range/Units 00:01 00:01 00:10 WBC (4.50-10.00) 10*3/uL RBC (4.10-5.20) 10*6/uL Hgb (12.0-15.0) g/dL Hct (37.2-46.3) % MCV (80.0-97.0) fL MCH (27.0-32.0) pg MCHC (32.0-37.0) g/dL Plt Count (140-440) 10*3/uL MPV (9.5-12.2) fL Immature Gran % (Auto) % Neutrophils % % Lymphocytes % % Monocytes % % Eosinophils % % Basophils % % Immature Gran # (0.00-0.04) 10*3/uL Neutrophils # (1.80-7.70) 10*3/uL Lymphocytes # (0.90-5.00) 10*3/uL Monocytes # (0.20-1.00) 10*3/uL Eosinophils # (0.04-0.35) 10*3/uL Basophils # (0.00-0.10) 10*3/uL Sodium (137-145) mmol/L Potassium (3.5-5.1) mmol/L Chloride (98-107) mmol/L Carbon Dioxide (22-30) mmol/L Anion Gap mmol/L BUN (7-17) mg/dL Creatinine (0.52-1.04) mg/dL Est GFR (CKD-EPI)AfAm (>60 ml/min/1.73 sqM) Est GFR (CKD-EPI)NonAf (>60 ml/min/1.73 sqM) Glucose (74-99) mg/dL POC Glucose (mg/dL) (70-110) mg/dL POC Glu Staking [employer] Operator ID Estimated Ave Glu mg/dL 212 mg/dL Hemoglobin A1c 9.0 H (<=6.0) % Lactic Ac Sepsis Rflx Plasma Lactic Acid Faheem (0.7-2.0) mmol/L Calcium (8.4-10.2) mg/dL Total Bilirubin (0.2-1.3) mg/dL AST (14-36) U/L ALT (4-34) U/L Alkaline Phosphatase (38-126) U/L Troponin I 0.182 H* (0.000-0.034) ng/mL Total Protein (6.3-8.2) g/dL Albumin (3.5-5.0) g/dL Amylase (30-110) U/L Lipase (23-300) U/L Urine Color Colorless Urine Appearance Cloudy H (Clear) Urine pH 6.5 (5.0-8.0) Ur Specific Vaughn 1.026 (1.001-1.035) Urine Protein 3+ H (Negative) Urine Glucose (UA) 4+ H (Negative) Urine Ketones Negative (Negative) Urine Blood Trace H (Negative) Urine Nitrite Negative (Negative) Urine Bilirubin Negative (Negative) Urine Urobilinogen <2.0 (<2.0) mg/dL Ur Leukocyte Esterase Negative (Negative) Urine WBC 6 H (0-5) /hpf Ur Squamous Epith Cells 4 (0-4) /hpf Amorphous Sediment Rare H (None) /hpf Urine Bacteria Rare H (None) /hpf Urine Mucus Rare H (None) /hpf 04/11/25 04/11/25 04/11/25 Range/Units 00:25 00:52 02:18 WBC (4.50-10.00) 10*3/uL RBC (4.10-5.20) 10*6/uL Hgb (12.0-15.0) g/dL Hct (37.2-46.3) % MCV (80.0-97.0) fL MCH (27.0-32.0) pg MCHC (32.0-37.0) g/dL Plt Count (140-440) 10*3/uL MPV (9.5-12.2) fL Immature Gran % (Auto) % Neutrophils % % Lymphocytes % % Monocytes % % Eosinophils % % Basophils % % Immature Gran # (0.00-0.04) 10*3/uL Neutrophils # (1.80-7.70) 10*3/uL Lymphocytes # (0.90-5.00) 10*3/uL Monocytes # (0.20-1.00) 10*3/uL Eosinophils # (0.04-0.35) 10*3/uL Basophils # (0.00-0.10) 10*3/uL Sodium (137-145) mmol/L Potassium (3.5-5.1) mmol/L Chloride (98-107) mmol/L Carbon Dioxide (22-30) mmol/L Anion Gap mmol/L BUN (7-17) mg/dL Creatinine (0.52-1.04) mg/dL Est GFR (CKD-EPI)AfAm (>60 ml/min/1.73 sqM) Est GFR (CKD-EPI)NonAf (>60 ml/min/1.73 sqM) Glucose (74-99) mg/dL POC Glucose (mg/dL) 576 H* 367 H (70-110) mg/dL POC Glu Staking [employer] Operator ID Zahida Pan Estimated Ave Glu mg/dL mg/dL Hemoglobin A1c (<=6.0) % Lactic Ac Sepsis Rflx Y Plasma Lactic Acid Faheem (0.7-2.0) mmol/L Calcium (8.4-10.2) mg/dL Total Bilirubin (0.2-1.3) mg/dL AST (14-36) U/L ALT (4-34) U/L Alkaline Phosphatase (38-126) U/L Troponin I (0.000-0.034) ng/mL Total Protein (6.3-8.2) g/dL Albumin (3.5-5.0) g/dL Amylase (30-110) U/L Lipase (23-300) U/L Urine Color Urine Appearance (Clear) Urine pH (5.0-8.0) Ur Specific Vaughn (1.001-1.035) Urine Protein (Negative) Urine Glucose (UA) (Negative) Urine Ketones (Negative) Urine Blood (Negative) Urine Nitrite (Negative) Urine Bilirubin (Negative) Urine Urobilinogen (<2.0) mg/dL Ur Leukocyte Esterase (Negative) Urine WBC (0-5) /hpf Ur Squamous Epith Cells (0-4) /hpf Amorphous Sediment (None) /hpf Urine Bacteria (None) /hpf Urine Mucus (None) /hpf 06/15/25 Range/Units 03:40 WBC (4.50-10.00) 10*3/uL RBC (4.10-5.20) 10*6/uL Hgb (12.0-15.0) g/dL Hct (37.2-46.3) % MCV (80.0-97.0) fL MCH (27.0-32.0) pg MCHC (32.0-37.0) g/dL Plt Count (140-440) 10*3/uL MPV (9.5-12.2) fL Immature Gran % (Auto) % Neutrophils % % Lymphocytes % % Monocytes % % Eosinophils % % Basophils % % Immature Gran # (0.00-0.04) 10*3/uL Neutrophils # (1.80-7.70) 10*3/uL Lymphocytes # (0.90-5.00) 10*3/uL Monocytes # (0.20-1.00) 10*3/uL Eosinophils # (0.04-0.35) 10*3/uL Basophils # (0.00-0.10) 10*3/uL Sodium (137-145) mmol/L Potassium (3.5-5.1) mmol/L Chloride (98-107) mmol/L Carbon Dioxide (22-30) mmol/L Anion Gap mmol/L BUN (7-17) mg/dL Creatinine (0.52-1.04) mg/dL Est GFR (CKD-EPI)AfAm (>60 ml/min/1.73 sqM) Est GFR (CKD-EPI)NonAf (>60 ml/min/1.73 sqM) Glucose (74-99) mg/dL POC Glucose (mg/dL) (70-110) mg/dL POC Glu Staking Press Operator ID Estimated Ave Glu mg/dL mg/dL Hemoglobin A1c (<=6.0) % Lactic Ac Sepsis Rflx Plasma Lactic Acid Faheem 1.5 (0.7-2.0) mmol/L Calcium (8.4-10.2) mg/dL Total Bilirubin (0.2-1.3) mg/dL AST (14-36) U/L ALT (4-34) U/L Alkaline Phosphatase (38-126) U/L Troponin I (0.000-0.034) ng/mL Total Protein (6.3-8.2) g/dL Albumin (3.5-5.0) g/dL Amylase (30-110) U/L Lipase (23-300) U/L Urine Color Urine Appearance (Clear) Urine pH (5.0-8.0) Ur Specific Vaughn (1.001-1.035) Urine Protein (Negative) Urine Glucose (UA) (Negative) Urine Ketones (Negative) Urine Blood (Negative) Urine Nitrite (Negative) Urine Bilirubin (Negative) Urine Urobilinogen (<2.0) mg/dL Ur Leukocyte Esterase (Negative) Urine WBC (0-5) /hpf Ur Squamous Epith Cells (0-4) /hpf Amorphous Sediment (None) /hpf Urine Bacteria (None) /hpf Urine Mucus (None) /hpf Disposition Clinical Impression: Weakness, Elevated troponin, Gastroenteritis Disposition: ADMITTED IP TO THIS HOSP Condition: Fair Time of Disposition: 03:10
[2025-04-11 00:25] LABS: Basophils # (A) 0.06 10*3/uL (0.00-0.10); Basophils % (A) 0.4 %; Eosinophils # (A) 0.12 10*3/uL (0.04-0.35); Eosinophils % (A) 0.8 %; HCT 33.3 % (37.2-46.3); Lymphocytes # (A) 2.71 10*3/uL (0.90-5.00); Lymphocytes % (A) 17.3 %; MCH 30.3 pg (27.0-32.0); MCV 91.7 fL (80.0-97.0); Mean Platelet Volume 12.1 fL (9.5-12.2); Monocytes # (A) 0.74 10*3/uL (0.20-1.00); Monocytes % (A) 4.7 %; Neutrophils # (A) 11.97 10*3/uL (1.80-7.70); Neutrophils % (A) 76.3 %; Platelet Count 267 10*3/uL (140-440); RBC 3.63 10*6/uL (4.10-5.20); RDW 15.3 % (11.5-14.5); WBC 15.68 10*3/uL (4.50-10.00)
[2025-04-11 00:27] LABS: Glucose,Whole Blood 576 mg/dL (70-110)
[2025-04-11 00:38] LABS: Amorphous Sediment,Urine Rare /hpf; Appearance,Urine Cloudy (Clear); Bacteria,Urine Rare /hpf; Bilirubin,Urine Negative (Negative); Blood,Urine Trace (Negative); Color,Urine Colorless; Glucose,Urine (UA) 4+ (Negative); Ketones,Urine Negative (Negative); Leukocyte Esterase,Urine Negative (Negative); Mucus,Urine Rare /hpf; Nitrite,Urine Negative (Negative); PH, Urine 6.5 (5.0-8.0); Protein,Urine 3+ (Negative); Specific Gravity,Urine 1.026 (1.001-1.035); Squamous Epithelial Cell,Urine 4 /hpf (0-4); Urobilinogen,Urine <2.0 mg/dL (<2.0); WBC,Urine 6 /hpf (0-5)
[2025-04-11] MEDS: INSULIN REGULAR 100 UNIT/ML VIAL (IV) IV ONE (00:39)
[2025-04-11 00:40] LABS: ALT 12 U/L (4-34); AST 19 U/L (14-36); African American GFR (CKD) 24 (>60 ml/min/1.73 sqM); Alkaline Phosphatase 205 U/L (38-126); Amylase 39 U/L (30-110); Anion Gap 11 mmol/L; Blood Urea Nitrogen 22 mg/dL (7-17); Calcium 9.9 mg/dL (8.4-10.2); Carbon Dioxide 15 mmol/L (22-30); Chloride 105 mmol/L (98-107); Lipase 91 U/L (23-300); Non-African American GFR(CKD) 21 (>60 ml/min/1.73 sqM); Potassium 4.3 mmol/L (3.5-5.1); Sodium 131 mmol/L (137-145); Total Bilirubin 0.3 mg/dL (0.2-1.3); Total Protein 5.2 g/dL (6.3-8.2)
[2025-04-11] MEDS: hydrALAZINE HCL 20 MG/ML 1 ML VIAL IVP STA ×2 (00:40→01:35)
[2025-04-11 00:51] LABS: Glucose 604 mg/dL (74-99)
[2025-04-11] MEDS: HYDROmorphone 1 MG/ML 1 ML SYRINGE IVP STA (01:35)
[2025-04-11 02:19] LABS: Glucose,Whole Blood 367 mg/dL (70-110)
--- NOTE | 2025-04-11 02:52 | CT ---
EXAM: CT Abdomen and Pelvis Without Intravenous Contrast CLINICAL HISTORY: Pain TECHNIQUE: Axial computed tomography images of the abdomen and pelvis without intravenous contrast. CTDI is 16.1 mGy and DLP is 931.7 mGy-cm. This CT exam was performed using one or more of the following dose reduction techniques: automated exposure control, adjustment of the mA and/or kV according to patient size, and/or use of iterative reconstruction technique. COMPARISON: CT abdomen and pelvis 12/02/2024 FINDINGS: Lung bases: Unremarkable. No mass. No consolidation. ABDOMEN: Liver: Nonspecific hepatomegaly. The liver measures 19.2 cm. No visualized mass. Gallbladder and bile ducts: Cholecystectomy. No ductal dilation. Pancreas: Unremarkable. No ductal dilation. Spleen: There are calcified granulomas of the spleen. Adrenals: Unremarkable. No mass. Kidneys and ureters: Nonobstructing bilateral renal calculi versus vascular calcifications. No hydronephrosis of either kidney. Stomach and bowel: Fecalization of the small bowel is noted without obstruction. No mucosal thickening. PELVIS: Appendix: Normal appendix. Bladder: Unremarkable. No stones. Reproductive: Unremarkable as visualized. ABDOMEN and PELVIS: Intraperitoneal space: Unremarkable. No free air. No significant fluid collection. Bones/joints: No acute fracture. No dislocation. Soft tissues: A small fat containing umbilical hernia is present. Vasculature: Ectatic abdominal aorta measuring 2.5 cm in maximum diameter. Severe atherosclerotic calcifications. No abdominal aortic aneurysm. Lymph nodes: Unremarkable. No enlarged lymph nodes. IMPRESSION: 1. Nonobstructing bilateral renal calculi versus vascular calcifications. No hydronephrosis of either kidney. 2. Nonspecific hepatomegaly. 3. Fecalization of the small bowel is noted without obstruction. This could relate to slow transit or bacterial overgrowth. 4. Severe atherosclerotic calcifications. 5. Ectatic abdominal aorta measuring 2.5 cm in maximum diameter. Recommend abdomen/pelvis CT or MR imaging follow-up in 5 years.
[2025-04-11] MEDS ORDERED: NALOXONE 0.4 MG/ML 1 ML VIAL IV PRN (03:13)
[2025-04-11] MEDS ORDERED: ACETAMINOPHEN TAB 325 MG TAB PO PRN (03:13)
[2025-04-11] MEDS: SODIUM CHLORIDE 0.9% 1,000 ML IV SCH (04:03)
[2025-04-11] MEDS ORDERED: DEXTROSE 50% SYRINGE 50 ML IVP PRN ×2 (08:49)
--- NOTE | 2025-04-11 10:07 | P.HPIM ---
History of Present Illness H&P Date: 04/11/25 Leticia Langley is a 54-year-old female patient of Dr. Lima who is well- known to my services due to frequent hospitalizations who presented with concerns of weakness and diarrhea over the past few days patent. Patient was recently discharged from [facility] secondary to C. difficile. Patient reports that she did have improvement of symptoms and completed course of antibiotics. Patient has past medical history of diabetes melitis, noncompliance with medication, coronary artery disease, CVA, chronic kidney disease, fibromyalgia, GERD, hyperlipidemia, hypertension, sleep apnea and anxiety and depression. Abdominal pelvis CT completed showing nonobstructing bilateral renal calculi no hydronephrosis nonspecific hepatomegaly fecalization of the small bowel is noted without obstruction. Lab work completed showing white blood cell 15.68, hemoglobin 11.0, sodium 131, creatinine 2.58, bun 22, glucose 604, troponin 0.150. At this time patient will be admitted patient started on IV fluid. Sliding scale insulin added. Consult placed for cardiology, nephrology and infectious disease services stool for C. 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 - slight foot drag when tired/neuropathies, MS, [place] X 5, ABIGAIL with CPAP use, PAD/legs, R leg edema, past pancreatitis, [place] 10/27/23 Last Myocardial Infarction Date:: LAST ONE 10/27/23 History of Any Multi-Drug Resistant Organisms: None Reported Past Surgical History: Section, Cholecystectomy, Heart Catheterization With Stent, Hysterectomy, Tubal Ligation, Uterine Ablation Additional Past Surgical History / Comment(s): vein stripping right leg, radio frequency ablation of right back-02/22/2015, four stents on 04/03/16 and one on march 05, ovaries removed, colonscopy- polyp removal Past Anesthesia/Blood Transfusion Reactions: No Reported Reaction, Motion Sickness Additional Past Anesthesia/Blood Transfusion Reaction / Comment(s): mild claustrophobia Date of Last Stent Placement:: 04/03/16 Past Psychological History: Anxiety, Depression Smoking Status: Current some day smoker Past Alcohol Use History: None Reported Past Drug Use History: None Reported - Past Family History Father History Unknown: Yes Family Medical History: Congestive Heart Failure (CHF), Coronary Artery Disease (CAD), Diabetes Mellitus Mother History Unknown: Yes Family Medical History: Cancer, COPD, Hypertension, Respiratory Disorder Additional Family Medical History / Comment(s): emphysema, colon CA Medications and Allergies Home Medications Medication Instructions Recorded Confirmed Type Aspirin [Adult Low Dose Aspirin EC] 81 mg PO HS 11/26/17 12/02/24 History Isosorbide Mononitrate ER [Imdur] 60 mg PO HS 09/08/18 12/02/24 History Empagliflozin [Jardiance] 10 mg PO DAILY 10/06/22 12/02/24 History Nitroglycerin Sl Tabs [Nitrostat] 0.4 mg SL Q5M PRN 10/06/22 12/02/24 History INSULIN LISPRO (For Pump) [humaLOG 0.01 units SQ-PUMP CONTINUOUS 07/17/23 12/02/24 History (For Pump)] Atorvastatin [Lipitor] 40 mg PO HS 12/11/23 12/02/24 History ALPRAZolam [Xanax] 1 mg PO TID PRN 03/28/24 12/02/24 History Cinacalcet [Sensipar] 30 mg PO FR@2100 03/28/24 12/02/24 History Ondansetron Odt [Zofran ODT] 8 mg PO Q12HR 05/04/24 12/02/24 History Albuterol Inhaler [Ventolin Hfa 2 puff INHALATION RT-QID PRN 08/26/24 12/02/24 History Inhaler] carvediloL [Coreg] 25 mg PO BID-W/MEALS 08/26/24 12/02/24 History HYDROcodone/APAP 7.5-325MG [Sterrett 1 tab PO TID PRN 11/20/24 12/02/24 History 7.5-325] Losartan [Cozaar] 12.5 mg PO HS 11/20/24 12/02/24 History Allergies Allergy/AdvReac Type Severity Reaction Status Date / Time Fish Containing Products Allergy Anaphylaxis Verified 12/02/24 09:08 Iodinated Contrast Media Allergy Anaphylaxis Verified 12/02/24 09:08 [Iodinated Contrast Media - IV Dye] Sulfa (Sulfonamide Allergy Anaphylaxis Verified 12/02/24 09:08 Antibiotics) sulfamethoxazole Allergy Anaphylaxis Verified 12/02/24 09:08 [From Septra] tree nut [Nut] Allergy Anaphylaxis Verified 12/02/24 09:08 trimethoprim [From ] Allergy Anaphylaxis Verified 12/02/24 09:08 Physical Exam Vitals: Vital Signs Temp Pulse Resp BP Pulse Ox 04/11/25 06:54 70 18 132/74 96 04/11/25 05:57 72 16 124/75 96 04/11/25 03:45 83 18 144/62 96 04/11/25 02:10 76 16 148/75 96 04/11/25 01:15 88 18 216/104 96 04/11/25 00:35 79 18 213/83 96 04/10/25 23:27 97.9 F 77 18 210/81 99 Intake and Output 04/10/25 04/11/25 04/11/25 22:59 06:59 14:59 Other: Weight 77.111 kg Head normocephalic Neck supple Lungs clear to auscultation bilaterally no wheezing or crackles Heart regular rate and rhythm S1-S2, no rub or gallop Abdomen is soft nontender nondistended positive bowel sounds no hepatosplenomegaly Extremities no edema Neuro alert and orientated to 3 Results CBC & Chem 7: 04/11/25 00:01 04/11/25 00:01 Labs: Abnormal Lab Results - Last 24 Hours (Table) 04/11/25 04/11/25 04/11/25 Range/Units 00:01 00:01 00:01 WBC 15.68 H (4.50-10.00) 10*3/uL RBC 3.63 L (4.10-5.20) 10*6/uL Hgb 11.0 L (12.0-15.0) g/dL Hct 33.3 L (37.2-46.3) % Immature Gran # 0.08 H (0.00-0.04) 10*3/uL Neutrophils # 11.97 H (1.80-7.70) 10*3/uL Sodium 131 L (137-145) mmol/L Carbon Dioxide 15 L (22-30) mmol/L BUN 22 H (7-17) mg/dL Creatinine 2.58 H (0.52-1.04) mg/dL Glucose 604 H* (74-99) mg/dL POC Glucose (mg/dL) (70-110) mg/dL Plasma Lactic Acid Faheem 2.6 H* (0.7-2.0) mmol/L Alkaline Phosphatase 205 H (38-126) U/L Troponin I (0.000-0.034) ng/mL Total Protein 5.2 L (6.3-8.2) g/dL Albumin 3.0 L (3.5-5.0) g/dL Urine Appearance (Clear) Urine Protein (Negative) Urine Glucose (UA) (Negative) Urine Blood (Negative) Urine WBC (0-5) /hpf Amorphous Sediment (None) /hpf Urine Bacteria (None) /hpf Urine Mucus (None) /hpf 04/11/25 04/11/25 04/11/25 Range/Units 00:01 00:10 00:25 WBC (4.50-10.00) 10*3/uL RBC (4.10-5.20) 10*6/uL Hgb (12.0-15.0) g/dL Hct (37.2-46.3) % Immature Gran # (0.00-0.04) 10*3/uL Neutrophils # (1.80-7.70) 10*3/uL Sodium (137-145) mmol/L Carbon Dioxide (22-30) mmol/L BUN (7-17) mg/dL Creatinine (0.52-1.04) mg/dL Glucose (74-99) mg/dL POC Glucose (mg/dL) 576 H* (70-110) mg/dL Plasma Lactic Acid Faheem (0.7-2.0) mmol/L Alkaline Phosphatase (38-126) U/L Troponin I 0.182 H* (0.000-0.034) ng/mL Total Protein (6.3-8.2) g/dL Albumin (3.5-5.0) g/dL Urine Appearance Cloudy H (Clear) Urine Protein 3+ H (Negative) Urine Glucose (UA) 4+ H (Negative) Urine Blood Trace H (Negative) Urine WBC 6 H (0-5) /hpf Amorphous Sediment Rare H (None) /hpf Urine Bacteria Rare H (None) /hpf Urine Mucus Rare H (None) /hpf 04/11/25 04/11/25 Range/Units 02:18 06:05 WBC (4.50-10.00) 10*3/uL RBC (4.10-5.20) 10*6/uL Hgb (12.0-15.0) g/dL Hct (37.2-46.3) % Immature Gran # (0.00-0.04) 10*3/uL Neutrophils # (1.80-7.70) 10*3/uL Sodium (137-145) mmol/L Carbon Dioxide (22-30) mmol/L BUN (7-17) mg/dL Creatinine (0.52-1.04) mg/dL Glucose (74-99) mg/dL POC Glucose (mg/dL) 367 H (70-110) mg/dL Plasma Lactic Acid Faheem (0.7-2.0) mmol/L Alkaline Phosphatase (38-126) U/L Troponin I 0.151 H* (0.000-0.034) ng/mL Total Protein (6.3-8.2) g/dL Albumin (3.5-5.0) g/dL Urine Appearance (Clear) Urine Protein (Negative) Urine Glucose (UA) (Negative) Urine Blood (Negative) Urine WBC (0-5) /hpf Amorphous Sediment (None) /hpf Urine Bacteria (None) /hpf Urine Mucus (None) /hpf Assessment and Plan Assessment: 1. Weakness with diarrhea 2. Recent treatment for C. difficile colitis 3. Elevated troponins 4. Uncontrolled diabetes mellitus with hyperglycemia 5. Acute on chronic kidney disease 6. History of noncompliance 7. History of essential hypertension 8. History of CVA 9. History of essential hypertension 10. History of hyperlipidemia DVT prophylaxis Lovenox. GI prophylax Protonix Continue normal saline at 75 Stool for C. difficile ordered Consult placed for nephrology, infectious disease and cardiology services Repeat labs in a.m. Time with Patient: Greater than 30 (Greater than 60% of the total time spent in counseling and coordination of care)
[2025-04-11 11:39] LABS: Glucose,Whole Blood 253 mg/dL (70-110)
--- NOTE | 2025-04-11 11:54 | P.CRDCN ---
History of Present Illness Consult date: 04/11/25 Reason for Consult (text): Elevated troponins History of present illness: This is a 54-year-old female patient of Dr. Jayjay Jasso with past medical history of coronary artery disease status post stent to the right coronary artery, LAD and diagonal, hypertension, dyslipidemia, chronic systolic heart failure, cardiomyopathy with EF of 40 to 45% with prior inferior wall myocardial infarction, right bundle branch block and left anterior fascicular block, history of ovarian cancer. We have been asked to evaluate the patient for elevated troponins. Patient states that she came into the hospital because of abdominal pain. She was recently hospitalized at [facility] 2 weeks ago for C. difficile colitis. She does have a follow-up appointment set with Dr. Serrano in the office on 04/26. On her last visit on 01/19, patient had no symptoms at that time. Patient denies chest pain chest pressure or chest tightness. No shortness of breath. Blood pressure 148/66, heart rate 81, pulse ox 96% on room air. Patient is status post 1 L of IV fluids and IV hydralazine for blood pressure. Patient is seen today in the emergency center waiting for a bed on the observation unit. -EKG: Sinus rhythm with left bundle branch block and left anterior fascicular block unchanged from previous. -CT abdomen and pelvis: Nonobstructing bilateral renal calculi versus vascular calcifications. No hydronephrosis. Nonspecific hepatomegaly. Fecalization of the small bowel without obstruction. Severe atherosclerotic calcifications. Ectatic abdominal aorta measuring 2.5 cm maximum diameter. -Laboratory studies: Troponin 0.182, 0.151, 0.149. WBC 15.6, hemoglobin 11, BUN 22 and creatinine 2.58 at baseline, glucose 604. Alkaline phosphatase 205. -Home cardiac medications: Amlodipine 10 mg daily, aspirin 81 mg daily, Coreg 25 mg twice daily, Plavix 75 mg daily, Jardiance 10 mg daily, hydralazine 50 mg 3 times daily, Imdur 60 mg daily, losartan 12.5 mg on Saturday. -Lexiscan Cardiolite stress test performed at [facility] on 07/30/2024 revealed reversible ischemia involving the inferior wall surrounded by remote insult. Films were reviewed at that time by Dr. Mckeon himself and he did not believe this demonstrated reversible ischemia but did demonstrate diaphragmatic attenuation. No cardiac catheterization was recommended at that time. -Echocardiogram performed 06/16/[address] [facility] revealed normal left ventricular size and systolic function with severe hypertrophy. Mild mitral and tricuspid regurgitation. Mildly dilated aortic root. Review Of Systems: At the time of my exam: CONSTITUTIONAL: Denies fever or chills. HEENT: Denies blurred vision, vision changes, or eye pain. Denies hemoptysis CARDIOVASCULAR: Denies chest pain. Denies orthopnea. Denies PND. Denies pa lpitations RESPIRATORY: Denies shortness of breath. GASTROINTESTINAL: Reports abdominal pain. Denies nausea or vomiting. HEMATOLOGIC: Denies bleeding disorders. GENITOURINARY: Denies any blood in urine. SKIN: Denies puritis. Denies rash. Physical examination: Gen: This is a 54-year-old female in no acute respiratory distress. VS: reviewed HEENT: Head is atraumatic, normocephalic. Pupils equal, round. Sclerae is anicteric. NECK: Supple. No JVD. LUNGS: Clear to auscultation. No wheezes or rhonchi. No intercostal retractions. HEART: Regular rate and rhythm. No murmur. ABDOMEN: Soft No tenderness. EXTREMITIES: No pedal edema. No calf tenderness. NEUROLOGICAL: Patient is awake, alert and oriented x3. Assessment: Elevated troponin secondary to chronic kidney disease Abdominal pain Recent hospitalization at [facility] for C. difficile colitis Chronic kidney disease Coronary artery disease status post stent to the right coronary artery, LAD and diagonal Hypertension Dyslipidemia Chronic systolic heart failure, stable Ischemic cardiomyopathy with a EF of 40 to 45% Right bundle branch block and left anterior fascicular block History of ovarian cancer Plan: Resume patient's home cardiac medications Obtain 2-D echocardiogram and Doppler study to assess cardiac structure and function No further cardiac workup is anticipated At the time of discharge, patient will follow up with Dr. Jasso as scheduled on 04/26. Thank you kindly for this consultation. Nurse practitioner note has been reviewed, I agree with documented findings and plan of care. Patient was seen and examined. 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 - slight foot drag when tired/neuropathies, MS, [place] X 5, ABIGAIL with CPAP use, PAD/legs, R leg edema, past pancreatitis, [place] 10/27/23 Last Myocardial Infarction Date:: LAST ONE 10/27/23 History of Any Multi-Drug Resistant Organisms: None Reported Past Surgical History: Section, Cholecystectomy, Heart Catheterization With Stent, Hysterectomy, Tubal Ligation, Uterine Ablation Additional Past Surgical History / Comment(s): vein stripping right leg, radio frequency ablation of right back-02/22/2015, four stents on 04/03/16 and one on march 05, ovaries removed, colonscopy- polyp removal Past Anesthesia/Blood Transfusion Reactions: No Reported Reaction, Motion Sickness Additional Past Anesthesia/Blood Transfusion Reaction / Comment(s): mild claustrophobia Date of Last Stent Placement:: 04/03/16 Past Psychological History: Anxiety, Depression Smoking Status: Current some day smoker Past Alcohol Use History: None Reported Past Drug Use History: None Reported - Past Family History Father History Unknown: Yes Family Medical History: Congestive Heart Failure (CHF), Coronary Artery Disease (CAD), Diabetes Mellitus Mother History Unknown: Yes Family Medical History: Cancer, COPD, Hypertension, Respiratory Disorder Additional Family Medical History / Comment(s): emphysema, colon CA Medications and Allergies Home Medications Medication Instructions Recorded Confirmed Type Aspirin [Adult Low Dose Aspirin EC] 81 mg PO DAILY 11/26/17 04/11/25 History Isosorbide Mononitrate ER [Imdur] 60 mg PO DAILY 09/08/18 04/11/25 History Empagliflozin [Jardiance] 10 mg PO DAILY 10/06/22 04/11/25 History Nitroglycerin Sl Tabs [Nitrostat] 0.4 mg SL Q5M PRN 10/06/22 04/11/25 History ALPRAZolam [Xanax] 1 mg PO DAILY 03/28/24 04/11/25 History Cinacalcet [Sensipar] 30 mg PO FR 03/28/24 04/11/25 History Albuterol Inhaler [Ventolin Hfa 2 puff INHALATION RT-QID PRN 08/26/24 04/11/25 History Inhaler] carvediloL [Coreg] 25 mg PO BID-W/MEALS 08/26/24 04/11/25 History HYDROcodone/APAP 7.5-325MG [Wink 1 tab PO TID PRN 11/20/24 04/11/25 History 7.5-325] Losartan [Cozaar] 12.5 mg PO MOTUWETHFR 11/20/24 04/11/25 History Citalopram Hydrobromide [CeleXA] 40 mg PO DAILY 04/11/25 04/11/25 History Clopidogrel [Plavix] 75 mg PO DAILY 04/11/25 04/11/25 History Ergocalciferol (Vitamin D2) 1,250 mcg PO TU 04/11/25 04/11/25 History [Drisdol (GEQ) 1,250 MCG (50,000 IU)] Insulin Glargine,Hum.rec.anlog 30 - 35 units SQ DAILY 04/11/25 04/11/25 History [Lantus Solostar Pen] Insulin Lispro [humaLOG Kwikpen] See Protocol SQ TID-W/MEALS 04/11/25 04/11/25 History Lacosamide [Vimpat] 50 mg PO BID 04/11/25 04/11/25 History Sodium Bicarbonate Tab 650 mg PO BID 04/11/25 04/11/25 History amLODIPine [Norvasc] 10 mg PO DAILY 04/11/25 04/11/25 History carvediloL [Coreg] 6.25 mg PO BID 04/11/25 04/11/25 History hydrALAZINE HCL [Apresoline] 50 mg PO TID 04/11/25 04/11/25 History Allergies Allergy/AdvReac Type Severity Reaction Status Date / Time Fish Containing Products Allergy Anaphylaxis Verified 04/11/25 10:23 Iodinated Contrast Media Allergy Anaphylaxis Verified 04/11/25 10:23 [Iodinated Contrast Media - IV Dye] Sulfa (Sulfonamide Allergy Anaphylaxis Verified 04/11/25 10:23 Antibiotics) sulfamethoxazole Allergy Anaphylaxis Verified 04/11/25 10:23 [From ] tree nut [Nut] Allergy Anaphylaxis Verified 04/11/25 10:23 trimethoprim [From Septra] Allergy Anaphylaxis Verified 04/11/25 10:23 Physical Exam Vitals: Vital Signs Temp Pulse Resp BP Pulse Ox 04/11/25 06:54 70 18 132/74 96 04/11/25 05:57 72 16 124/75 96 04/11/25 03:45 83 18 144/62 96 04/11/25 02:10 76 16 148/75 96 04/11/25 01:15 88 18 216/104 96 04/11/25 00:35 79 18 213/83 96 04/10/25 23:27 97.9 F 77 18 210/81 99 Intake and Output 04/10/25 04/11/25 04/11/25 22:59 06:59 14:59 Other: Weight 77.111 kg Results 04/11/25 00:01 04/11/25 00:01 Cardiac Enzymes 04/11/25 04/11/25 04/11/25 Range/Units 00:01 00:01 06:05 AST 19 (14-36) U/L Troponin I 0.182 H* 0.151 H* (0.000-0.034) ng/mL CBC 04/11/25 Range/Units 00:01 WBC 15.68 H (4.50-10.00) 10*3/uL RBC 3.63 L (4.10-5.20) 10*6/uL Hgb 11.0 L (12.0-15.0) g/dL Hct 33.3 L (37.2-46.3) % Plt Count 267 (140-440) 10*3/uL Comprehensive Metabolic Panel 04/11/25 Range/Units 00:01 Sodium 131 L (137-145) mmol/L Potassium 4.3 (3.5-5.1) mmol/L Chloride 105 (98-107) mmol/L Carbon Dioxide 15 L (22-30) mmol/L BUN 22 H (7-17) mg/dL Creatinine 2.58 H (0.52-1.04) mg/dL Glucose 604 H* (74-99) mg/dL Calcium 9.9 (8.4-10.2) mg/dL AST 19 (14-36) U/L ALT 12 (4-34) U/L Alkaline Phosphatase 205 H (38-126) U/L Total Protein 5.2 L (6.3-8.2) g/dL Albumin 3.0 L (3.5-5.0) g/dL Current Medications Generic Name Dose Route Start Last Admin Trade Name Freq PRN Reason Stop Dose Admin Acetaminophen 650 mg 04/11/25 03:13 Acetaminophen Tab 325 Mg Tab PO Q6HR PRN Mild Pain or Fever > 100.5 Dextrose/Water 25 ml 04/11/25 08:49 Dextrose 50% Syringe 50 Ml IVP PER PROTOCOL PRN Hypoglycemia Protocol Dextrose/Water 50 ml 04/11/25 08:49 Dextrose 50% Syringe 50 Ml IVP PER PROTOCOL PRN Hypoglycemia Protocol Sodium Chloride 1,000 mls @ 75 mls/hr 04/11/25 03:15 04/11/25 04:03 Saline 0.9% IV 75 mls/hr .[id number] SARAHY Administration Insulin Human Lispro 0 unit 04/11/25 12:30 Insulin Lispro (Humalog) 100 Unit/Ml 10 Ml Vl SQ ACHS [facility] Protocol Morphine Sulfate 4 mg 04/11/25 03:13 Morphine Sulfate 4 Mg/Ml Syringe IV Q4HR PRN Severe Pain (Scale 7 to 10) Naloxone HCl 0.2 mg 04/11/25 03:13 Naloxone 0.4 Mg/Ml 1 Ml Vial IV Q2M PRN Opioid Reversal Ondansetron HCl 4 mg 04/11/25 03:13 Ondansetron 4 Mg/2 Ml Vial IVP Q8HR PRN Nausea And Vomiting Intake and Output 04/10/25 04/11/25 04/11/25 22:59 06:59 14:59 Other: Weight 77.111 kg 04/11/25 00:01 04/11/25 00:01
[2025-04-11] MEDS: hydrALAZINE HCL 50 MG TAB PO SCH (12:11)
[2025-04-11] MEDS: amLODIPine 10 MG TAB PO SCH (12:11)
[2025-04-11] MEDS: MORPHINE SULFATE 4 MG/ML SYRINGE IV PRN (12:11)
[2025-04-11] MEDS: carvediloL 12.5 MG TAB PO SCH (12:11)
[2025-04-11] MEDS: INSULIN LISPRO (HumaLOG) 100 UNIT/ML 10 mL VL SQ SCH (12:12)
[2025-04-11] MEDS: ISOSORBIDE MONONITRATE ER 60 MG TAB.ER.24H PO SCH (12:16)
[2025-04-11 16:59] LABS: Glucose,Whole Blood 239 mg/dL (70-110)
[2025-04-11] MEDS: VANCOMYCIN 125 MG CAPSULE PO SCH (18:34)
[2025-04-11 20:13] LABS: Glucose,Whole Blood 227 mg/dL (70-110)
--- NOTE | 2025-04-11 20:44 | P.NPCON ---
History of Present Illness - Reason for Consult Consult date: 04/11/25 chronic renal failure - Chief Complaint weakness - History of Present Illness 54 years old female patient with PMHx of diabetes melitis, noncompliance with medication, coronary artery disease, CVA, chronic kidney disease, fibromyalgia, GERD, hyperlipidemia, hypertension, sleep apnea and anxiety and depression. she presented to ED c/o weakness and diarrhea, she was recently treated for C. Dif at [facility]. nephrology is consulted for CKD management. 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 - slight foot drag when tired/neuropathies, MS, PR X 5, ABIGAIL with CPAP use, PAD/legs, R leg edema, past pancreatitis, PR 09/29 11/19 Last Myocardial Infarction Date:: LAST ONE 10/27/23 History of Any Multi-Drug Resistant Organisms: None Reported Past Surgical History: Section, Cholecystectomy, Heart Catheterization With Stent, Hysterectomy, Tubal Ligation, Uterine Ablation Additional Past Surgical History / Comment(s): vein stripping right leg, radio frequency ablation of right back-02/22/2015, four stents on 04/03/16 and one on march 05, ovaries removed, colonscopy- polyp removal Past Anesthesia/Blood Transfusion Reactions: No Reported Reaction, Motion Sickness Additional Past Anesthesia/Blood Transfusion Reaction / Comment(s): mild claustrophobia Date of Last Stent Placement:: 04/03/16 Past Psychological History: Anxiety, Depression Smoking Status: Current some day smoker Past Alcohol Use History: None Reported Past Drug Use History: None Reported - Past Family History Father History Unknown: Yes Family Medical History: Congestive Heart Failure (CHF), Coronary Artery Disease (CAD), Diabetes Mellitus Mother History Unknown: Yes Family Medical History: Cancer, COPD, Hypertension, Respiratory Disorder Additional Family Medical History / Comment(s): emphysema, colon CA Medications and Allergies Home Medications Medication Instructions Recorded Confirmed Type Aspirin [Adult Low Dose Aspirin EC] 81 mg PO DAILY 11/26/17 04/11/25 History Isosorbide Mononitrate ER [Imdur] 60 mg PO DAILY 09/08/18 04/11/25 History Empagliflozin [Jardiance] 10 mg PO DAILY 10/06/22 04/11/25 History Nitroglycerin Sl Tabs [Nitrostat] 0.4 mg SL Q5M PRN 10/06/22 04/11/25 History ALPRAZolam [Xanax] 1 mg PO DAILY 03/28/24 04/11/25 History Cinacalcet [Sensipar] 30 mg PO FR 03/28/24 04/11/25 History Albuterol Inhaler [Ventolin Hfa 2 puff INHALATION RT-QID PRN 08/26/24 04/11/25 History Inhaler] carvediloL [Coreg] 25 mg PO BID-W/MEALS 08/26/24 04/11/25 History HYDROcodone/APAP 7.5-325MG [[place] 1 tab PO TID PRN 11/20/24 04/11/25 History 7.5-325] Losartan [Cozaar] 12.5 mg PO MOTUWETHFR 11/20/24 04/11/25 History Citalopram Hydrobromide [CeleXA] 40 mg PO DAILY 04/11/25 04/11/25 History Clopidogrel [Plavix] 75 mg PO DAILY 04/11/25 04/11/25 History Ergocalciferol (Vitamin D2) 1,250 mcg PO TU 04/11/25 04/11/25 History [Drisdol (GEQ) 1,250 MCG (50,000 IU)] Insulin Glargine,Hum.rec.anlog 30 - 35 units SQ DAILY 04/11/25 04/11/25 History [Lantus Solostar Pen] Insulin Lispro [humaLOG Kwikpen] See Protocol SQ TID-W/MEALS 04/11/25 04/11/25 History Lacosamide [Vimpat] 50 mg PO BID 04/11/25 04/11/25 History Sodium Bicarbonate Tab 650 mg PO BID 04/11/25 04/11/25 History amLODIPine [Norvasc] 10 mg PO DAILY 04/11/25 04/11/25 History carvediloL [Coreg] 6.25 mg PO BID 04/11/25 04/11/25 History hydrALAZINE HCL [Apresoline] 50 mg PO TID 04/11/25 04/11/25 History Allergies Allergy/AdvReac Type Severity Reaction Status Date / Time Fish Containing Products Allergy Anaphylaxis Verified 04/11/25 10:23 Iodinated Contrast Media Allergy Anaphylaxis Verified 04/11/25 10:23 [Iodinated Contrast Media - IV Dye] Sulfa (Sulfonamide Allergy Anaphylaxis Verified 04/11/25 10:23 Antibiotics) sulfamethoxazole Allergy Anaphylaxis Verified 04/11/25 10:23 [From Junra] tree nut [Nut] Allergy Anaphylaxis Verified 04/11/25 10:23 trimethoprim [From Junra] Allergy Anaphylaxis Verified 04/11/25 10:23 Physical Exam Vitals: Vital Signs Temp Pulse Resp BP Pulse Ox 04/11/25 11:02 81 16 148/66 96 04/11/25 06:54 70 18 132/74 96 04/11/25 05:57 72 16 124/75 96 04/11/25 03:45 83 18 144/62 96 04/11/25 02:10 76 16 148/75 96 04/11/25 01:15 88 18 216/104 96 04/11/25 00:35 79 18 213/83 96 04/10/25 23:27 97.9 F 77 18 210/81 99 Intake and Output 04/10/25 04/11/25 04/11/25 22:59 06:59 14:59 Other: Weight 77.111 kg General: No acute distress. HEENT: Head exam is unremarkable. LUNGS: No audible rhonchi or wheezes. HEART: Rate and Rhythm are regular. ABDOMEN: Nontender. EXTREMITITES: No edema. Results - Lab Results Most recent lab results Calcium 9.9 mg/dL (8.4-10.2) 04/11/25 00:01 04/11/25 00:01 04/11/25 00:01 Assessment and Plan Assessment: 1. Chronic kidney disease stage IV with baseline creatinine near 2.5 secondary to biopsy-proven diabetic kidney disease. 2. Diarrhea and weakness , recently treated for C. dif , started on vancomycin 3. Hyponatremia, likely due to hypovolemia, now on 0.9% saline 4. Metabolic acidosis secondary to CKD and diarrhea 5. History of CVA. 6. Uncontrolled diabetes mellitus 7. Anemia of CKD , Hb stable Plan: stable renal function around baseline, agree with maintain IV fluids @ 75 ml/hr start PO sodium bicarb. Avoid nephrotoxins. Continue to monitor renal function and urine output. Thank you for consulting nephrology, will continue to follow
[2025-04-11] MEDS: ONDANSETRON 4 MG/2 ML VIAL IVP PRN (21:47)
--- NOTE | 2025-04-11 22:38 | P.CONS ---
History of Present Illness - Reason for Consult Consult date: 04/11/25 Diarrhea, recent C. difficile Requesting physician: Evin Sanchez - Chief Complaint Diarrhea and abdominal pain x 1 week - History of Present Illness Patient is a 54-year-old female with a past medical history significant for multiple disorders including diabetes fibromyalgia hypertension hyperlipidemia CVA and TIA patient mention she was admitted at [facility] December 2024 and at that time she was diagnosed with C. difficile colitis for the patient has completed her treatment patient now presenting to [facility] ER concerning for diarrhea and abdominal pain which apparently has been getting worse over the last 1 week patient has been describing almost daily plus episode of loose stools for the and has been mostly mucus denies any blood in the stool. Crampy abdominal pain which is moderate intensity did have some nausea but no vomiting denies high-grade fever or recent antibiotic exposure on presentation to the hospital patient was afebrile and no fever have been called subsequently patient was not tachycardic or hypotensive n ot hypoxic no need for supplemental oxygen patient did have a white count of 15.68 urine currently has been elevated glucose was 604 troponin is elevated amylase lipase normal urine is negative patient did have abdominal pelvis CT nonobstructive bilateral renal calculi fecalization of the small bowel without obstruction patient has been admitted to the hospital infectious he was consulted because of diarrhea and recent diagnosis of C. difficile colitis, stool studies has not been collected Review of Systems Positive point and negatives has been mentioned in the HPI, complete review of systems was performed and all other systems are negative Past Medical History Past Medical History: Blood Disorder, Coronary Artery Disease (CAD), Cancer, Chest Pain / Angina, CVA/TIA, Diabetes Mellitus, Deep Vein Thrombosis (DVT), Fibromyalgia, GERD/Reflux, Hyperlipidemia, Hypertension, Myocardial Infarction ([place]), Musculoskeletal Disorder, Neurologic Disorder, Renal Disease, Sleep Apnea/CPAP/BIPAP, Vascular Disorder Additional Past Medical History / Comment(s): IDDM type II, uterine/cervical and ovarian cancer, restless leg, Factor V blood disorder, DVT R leg, 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 - slight foot drag when tired/neuropathies, MS, [place] X 5, ABIGAIL with CPAP use, PAD/legs, R leg edema, past pancreatitis, [place] 10/27/23 Last Myocardial Infarction Date:: LAST ONE 12/31/23 History of Any Multi-Drug Resistant Organisms: None Reported Past Surgical History: Section, Cholecystectomy, Heart Catheterization With Stent, Hysterectomy, Tubal Ligation, Uterine Ablation Additional Past Surgical History / Comment(s): vein stripping right leg, radio frequency ablation of right back-02/22/2015, four stents on 04/03/16 and one on march 05, ovaries removed, colonscopy- polyp removal Past Anesthesia/Blood Transfusion Reactions: No Reported Reaction, Motion Sickness Additional Past Anesthesia/Blood Transfusion Reaction / Comm: mild claustrop hobia Date of Last Stent Placement:: 04/03/16 Past Psychological History: Anxiety, Depression Smoking Status: Current some day smoker Past Alcohol Use History: None Reported Past Drug Use History: None Reported - Past Family History Father History Unknown: Yes Family Medical History: Congestive Heart Failure (CHF), Coronary Artery Disease (CAD), Diabetes Mellitus Mother History Unknown: Yes Family Medical History: Cancer, COPD, Hypertension, Respiratory Disorder Additional Family Medical History / Comment(s): emphysema, colon CA Medications and Allergies Home Medications Medication Instructions Recorded Confirmed Type Aspirin [Adult Low Dose Aspirin EC] 81 mg PO DAILY 11/26/17 04/11/25 History Isosorbide Mononitrate ER [Imdur] 60 mg PO DAILY 09/08/18 04/11/25 History Empagliflozin [Jardiance] 10 mg PO DAILY 10/06/22 04/11/25 History Nitroglycerin Sl Tabs [Nitrostat] 0.4 mg SL Q5M PRN 10/06/22 04/11/25 History ALPRAZolam [Xanax] 1 mg PO DAILY 03/28/24 04/11/25 History Cinacalcet [Sensipar] 30 mg PO FR 03/28/24 04/11/25 History Albuterol Inhaler [Ventolin Hfa 2 puff INHALATION RT-QID PRN 08/26/24 04/11/25 History Inhaler] carvediloL [Coreg] 25 mg PO BID-W/MEALS 08/26/24 04/11/25 History HYDROcodone/APAP 7.5-325MG [[place] 1 tab PO TID PRN 11/20/24 04/11/25 History 7.5-325] Losartan [Cozaar] 12.5 mg PO MOTUWETHFR 11/20/24 04/11/25 History Citalopram Hydrobromide [CeleXA] 40 mg PO DAILY 04/11/25 04/11/25 History Clopidogrel [Plavix] 75 mg PO DAILY 04/11/25 04/11/25 History Ergocalciferol (Vitamin D2) 1,250 mcg PO TU 04/11/25 04/11/25 History [Drisdol (GEQ) 1,250 MCG (50,000 IU)] Insulin Glargine,Hum.rec.anlog 30 - 35 units SQ DAILY 04/11/25 04/11/25 History [Lantus Solostar Pen] Insulin Lispro [humaLOG Kwikpen] See Protocol SQ TID-W/MEALS 04/11/25 04/11/25 History Lacosamide [Vimpat] 50 mg PO BID 04/11/25 04/11/25 History Sodium Bicarbonate Tab 650 mg PO BID 04/11/25 04/11/25 History amLODIPine [Norvasc] 10 mg PO DAILY 04/11/25 04/11/25 History carvediloL [Coreg] 6.25 mg PO BID 04/11/25 04/11/25 History hydrALAZINE HCL [Apresoline] 50 mg PO TID 04/11/25 04/11/25 History Allergies Allergy/AdvReac Type Severity Reaction Status Date / Time Fish Containing Products Allergy Anaphylaxis Verified 04/11/25 10:23 Iodinated Contrast Media Allergy Anaphylaxis Verified 04/11/25 10:23 [Iodinated Contrast Media - IV Dye] Sulfa (Sulfonamide Allergy Anaphylaxis Verified 04/11/25 10:23 Antibiotics) sulfamethoxazole Allergy Anaphylaxis Verified 04/11/25 10:23 [From Junra] tree nut [Nut] Allergy Anaphylaxis Verified 04/11/25 10:23 trimethoprim [From Junra] Allergy Anaphylaxis Verified 04/11/25 10:23 Physical Exam Vitals: Vital Signs Temp Pulse Resp BP Pulse Ox 04/11/25 12:18 162/79 04/11/25 12:00 162/79 04/11/25 11:02 81 16 148/66 96 04/11/25 06:54 70 18 132/74 96 04/11/25 05:57 72 16 124/75 96 04/11/25 03:45 83 18 144/62 96 04/11/25 02:10 76 16 148/75 96 04/11/25 01:15 88 18 216/104 96 04/11/25 00:35 79 18 213/83 96 04/10/25 23:27 97.9 F 77 18 210/81 99 Intake and Output 04/10/25 04/11/25 04/11/25 22:59 06:59 14:59 Other: Weight 77.111 kg GENERAL DESCRIPTION: Middle-age female lying in bed, no distress. No tachypnea or accessory muscle of respiration use. HEENT: Shows Pallor , no scleral icterus. Oral mucous membrane is dry. NECK: Trachea central, no thyromegaly. LUNGS: Unlabored breathing. Clear to auscultation anteriorly. No wheeze or crackle. HEART: S1, S2, regular rate and rhythm. No loud murmur ABDOMEN: Soft, mild tenderness EXTREMITIES: No edema of feet. SKIN: No rash, no masses palpable. NEUROLOGICAL: The patient is awake, alert, oriented x3, mood and affect normal. Results CBC & Chem 7: 04/11/25 00:01 04/11/25 00:01 Labs: Abnormal Lab Results - Last 24 Hours (Table) 04/11/25 04/11/25 04/11/25 Range/Units 00:01 00:01 00:01 WBC 15.68 H (4.50-10.00) 10*3/uL RBC 3.63 L (4.10-5.20) 10*6/uL Hgb 11.0 L (12.0-15.0) g/dL Hct 33.3 L (37.2-46.3) % Immature Gran # 0.08 H (0.00-0.04) 10*3/uL Neutrophils # 11.97 H (1.80-7.70) 10*3/uL Sodium 131 L (137-145) mmol/L Carbon Dioxide 15 L (22-30) mmol/L BUN 22 H (7-17) mg/dL Creatinine 2.58 H (0.52-1.04) mg/dL Glucose 604 H* (74-99) mg/dL POC Glucose (mg/dL) (70-110) mg/dL Plasma Lactic Acid Faheem 2.6 H* (0.7-2.0) mmol/L Alkaline Phosphatase 205 H (38-126) U/L Troponin I (0.000-0.034) ng/mL Total Protein 5.2 L (6.3-8.2) g/dL Albumin 3.0 L (3.5-5.0) g/dL Urine Appearance (Clear) Urine Protein (Negative) Urine Glucose (UA) (Negative) Urine Blood (Negative) Urine WBC (0-5) /hpf Amorphous Sediment (None) /hpf Urine Bacteria (None) /hpf Urine Mucus (None) /hpf 04/11/25 04/11/25 04/11/25 Range/Units 00:01 00:10 00:25 WBC (4.50-10.00) 10*3/uL RBC (4.10-5.20) 10*6/uL Hgb (12.0-15.0) g/dL Hct (37.2-46.3) % Immature Gran # (0.00-0.04) 10*3/uL Neutrophils # (1.80-7.70) 10*3/uL Sodium (137-145) mmol/L Carbon Dioxide (22-30) mmol/L BUN (7-17) mg/dL Creatinine (0.52-1.04) mg/dL Glucose (74-99) mg/dL POC Glucose (mg/dL) 576 H* (70-110) mg/dL Plasma Lactic Acid Faheem (0.7-2.0) mmol/L Alkaline Phosphatase (38-126) U/L Troponin I 0.182 H* (0.000-0.034) ng/mL Total Protein (6.3-8.2) g/dL Albumin (3.5-5.0) g/dL Urine Appearance Cloudy H (Clear) Urine Protein 3+ H (Negative) Urine Glucose (UA) 4+ H (Negative) Urine Blood Trace H (Negative) Urine WBC 6 H (0-5) /hpf Amorphous Sediment Rare H (None) /hpf Urine Bacteria Rare H (None) /hpf Urine Mucus Rare H (None) /hpf 04/11/25 04/11/25 04/11/25 Range/Units 02:18 06:05 09:31 WBC (4.50-10.00) 10*3/uL RBC (4.10-5.20) 10*6/uL Hgb (12.0-15.0) g/dL Hct (37.2-46.3) % Immature Gran # (0.00-0.04) 10*3/uL Neutrophils # (1.80-7.70) 10*3/uL Sodium (137-145) mmol/L Carbon Dioxide (22-30) mmol/L BUN (7-17) mg/dL Creatinine (0.52-1.04) mg/dL Glucose (74-99) mg/dL POC Glucose (mg/dL) 367 H (70-110) mg/dL Plasma Lactic Acid Faheem (0.7-2.0) mmol/L Alkaline Phosphatase (38-126) U/L Troponin I 0.151 H* 0.149 H* (0.000-0.034) ng/mL Total Protein (6.3-8.2) g/dL Albumin (3.5-5.0) g/dL Urine Appearance (Clear) Urine Protein (Negative) Urine Glucose (UA) (Negative) Urine Blood (Negative) Urine WBC (0-5) /hpf Amorphous Sediment (None) /hpf Urine Bacteria (None) /hpf Urine Mucus (None) /hpf / Range/Units 11:38 WBC (4.50-10.00) 10*3/uL RBC (4.10-5.20) 10*6/uL Hgb (12.0-15.0) g/dL Hct (37.2-46.3) % Immature Gran # (0.00-0.04) 10*3/uL Neutrophils # (1.80-7.70) 10*3/uL Sodium (137-145) mmol/L Carbon Dioxide (22-30) mmol/L BUN (7-17) mg/dL Creatinine (0.52-1.04) mg/dL Glucose (74-99) mg/dL POC Glucose (mg/dL) 253 H (70-110) mg/dL Plasma Lactic Acid Faheem (0.7-2.0) mmol/L Alkaline Phosphatase (38-126) U/L Troponin I (0.000-0.034) ng/mL Total Protein (6.3-8.2) g/dL Albumin (3.5-5.0) g/dL Urine Appearance (Clear) Urine Protein (Negative) Urine Glucose (UA) (Negative) Urine Blood (Negative) Urine WBC (0-5) /hpf Amorphous Sediment (None) /hpf Urine Bacteria (None) /hpf Urine Mucus (None) /hpf Assessment and Plan (1) Diarrhea Current Visit: Yes Status: Acute Code(s): R19.7 - DIARRHEA, UNSPECIFIED SNOMED Code(s): 24043470 (2) Leukocytosis Current Visit: No Status: Acute Code(s): D72.829 - ELEVATED WHITE BLOOD CELL COUNT, UNSPECIFIED SNOMED Code(s): 521315094 Plan: 1patient was in the hospital abdominal pain diarrhea with multiple loose stools per day in this patient who did have a recent history of C. difficile colitis about 2 months ago and high clinical suspicious for possible relapse/recurrence of C. difficile colitis 2-we will obtain stool for C. difficile and culture 3-empirically start the patient on oral vancomycin while waiting for the testing to be completed We will follow on clinical condition and cultures to further adjust medication if needed Thank you for this consultation we will follow the patient along with you Dictation was produced using [employer] dictation software. please excuse any grammatical, word or spelling errors. Time with Patient: Greater than 30
[2025-04-12 05:59] LABS: Glucose,Whole Blood 153 mg/dL (70-110)
[2025-04-12 08:15] LABS: Basophils # (A) 0.05 X 10*3/uL (0.00-0.10); Basophils % (A) 0.4 %; Eosinophils % (A) 0.7 %; HCT 29.4 % (37.2-46.3); HGB 9.2 g/dL (12.0-15.0); Lymphocytes # (A) 3.53 X 10*3/uL (0.90-5.00); Lymphocytes % (A) 25.7 %; MCH 29.7 pg (27.0-32.0); MCHC 31.3 g/dL (32.0-37.0); MCV 94.8 FL (80.0-97.0); Mean Platelet Volume 12.5 FL (9.5-12.2); Monocytes # (A) 0.76 X 10*3/uL (0.20-1.00); Monocytes % (A) 5.5 %; NRBC Per 100 WBC 0 X 10*3/uL (0.00-0.01); Neutrophils # (A) 9.17 X 10*3/uL (1.80-7.70); Platelet Count 236 X 10*3/uL (140-440); WBC 13.71 X 10*3/uL (4.50-10.00)
[2025-04-12 08:24] LABS: ALT 10 U/L (8-44); AST 14 U/L (13-35); Albumin 2.7 g/dL (3.8-4.9); Alkaline Phosphatase 143 U/L (41-126); BUN/Creat Ratio 7.06 Ratio (12.00-20.00); Blood Urea Nitrogen 23.3 mg/dL (9.0-27.0); Calcium 9.1 mg/dL (8.7-10.3); Carbon Dioxide 16.8 mmol/L (21.6-31.8); Chloride 112 mmol/L (96-109); Globulin 1.5 g/dL (1.6-3.3); Glucose 139 mg/dL (70-110); Potassium 4.2 mmol/L (3.5-5.5); Sodium 140 mmol/L (135-145); Total Bilirubin 0.2 mg/dL (0.3-1.2); Total Protein 4.2 g/dL (6.2-8.2)
--- NOTE | 2025-04-12 08:30 | P.PN ---
Subjective Patient is seen in follow-up for acute kidney injury on chronic kidney disease. Patient has chronic kidney disease stage IV baseline creatinine near 3. Creatinine 3.3 today. Has been voiding. Receiving IV fluids. Did not eat anything last night. No diarrhea overnight. Vital signs are stable. General: No acute distress. HEENT: Head exam is unremarkable. LUNGS: No audible rhonchi or wheezes. HEART: Rate and Rhythm are regular. ABDOMEN: Nontender. EXTREMITITES: No edema. Objective - Vital Signs Vital signs: Vital Signs Temp 98.2 F 04/12/25 07:50 Pulse 68 04/12/25 07:50 Resp 16 04/12/25 07:50 BP 146/65 04/12/25 07:50 Pulse Ox 93 L 04/12/25 07:50 FiO2 Intake & Output 04/11/25 04/12/25 04/12/25 18:59 06:59 18:59 Weight 77.111 kg Other: # Voids 2 - Labs CBC & Chem 7: 04/12/25 05:23 04/12/25 05:23 Labs: Abnormal Lab Results - Last 24 Hours (Table) 04/11/25 04/11/25 04/11/25 Range/Units 00:01 09:31 11:38 WBC (4.50-10.00) X 10*3/uL RBC (4.10-5.20) X 10*6/uL Hgb (12.0-15.0) g/dL Hct (37.2-46.3) % MCHC (32.0-37.0) g/dL RDW (11.5-14.5) % MPV (9.5-12.2) FL Immature Gran # (0.00-0.04) X 10*3/uL Neutrophils # (1.80-7.70) X 10*3/uL Chloride (96-109) mmol/L Carbon Dioxide (21.6-31.8) mmol/L Creatinine (0.6-1.5) mg/dL Est GFR (CKD-EPI) (>=60) BUN/Creatinine Ratio (12.00-20.00) Ratio Glucose (70-110) mg/dL POC Glucose (mg/dL) 253 H (70-110) mg/dL Hemoglobin A1c 9.0 H (<=6.0) % Total Bilirubin (0.3-1.2) mg/dL Alkaline Phosphatase (41-126) U/L Troponin I 0.149 H* (0.000-0.034) ng/mL Total Protein (6.2-8.2) g/dL Albumin (3.8-4.9) g/dL Globulin (1.6-3.3) g/dL 04/11/25 04/11/25 04/12/25 Range/Units 16:58 20:11 05:23 WBC 13.71 H (4.50-10.00) X 10*3/uL RBC 3.10 L (4.10-5.20) X 10*6/uL Hgb 9.2 L (12.0-15.0) g/dL Hct 29.4 L (37.2-46.3) % MCHC 31.3 L (32.0-37.0) g/dL RDW 16.0 H (11.5-14.5) % MPV 12.5 H (9.5-12.2) FL Immature Gran # 0.10 H (0.00-0.04) X 10*3/uL Neutrophils # 9.17 H (1.80-7.70) X 10*3/uL Chloride (96-109) mmol/L Carbon Dioxide (21.6-31.8) mmol/L Creatinine (0.6-1.5) mg/dL Est GFR (CKD-EPI) (>=60) BUN/Creatinine Ratio (12.00-20.00) Ratio Glucose (70-110) mg/dL POC Glucose (mg/dL) 239 H 227 H (70-110) mg/dL Hemoglobin A1c (<=6.0) % Total Bilirubin (0.3-1.2) mg/dL Alkaline Phosphatase (41-126) U/L Troponin I (0.000-0.034) ng/mL Total Protein (6.2-8.2) g/dL Albumin (3.8-4.9) g/dL Globulin (1.6-3.3) g/dL 04/12/25 04/12/25 Range/Units 05:23 05:57 WBC (4.50-10.00) X 10*3/uL RBC (4.10-5.20) X 10*6/uL Hgb (12.0-15.0) g/dL Hct (37.2-46.3) % MCHC (32.0-37.0) g/dL RDW (11.5-14.5) % MPV (9.5-12.2) FL Immature Gran # (0.00-0.04) X 10*3/uL Neutrophils # (1.80-7.70) X 10*3/uL Chloride 112 H (96-109) mmol/L Carbon Dioxide 16.8 L (21.6-31.8) mmol/L Creatinine 3.3 H (0.6-1.5) mg/dL Est GFR (CKD-EPI) 16 L (>=60) BUN/Creatinine Ratio 7.06 L (12.00-20.00) Ratio Glucose 139 H (70-110) mg/dL POC Glucose (mg/dL) 153 H (70-110) mg/dL Hemoglobin A1c (<=6.0) % Total Bilirubin 0.2 L (0.3-1.2) mg/dL Alkaline Phosphatase 143 H (41-126) U/L Troponin I (0.000-0.034) ng/mL Total Protein 4.2 L (6.2-8.2) g/dL Albumin 2.7 L (3.8-4.9) g/dL Globulin 1.5 L (1.6-3.3) g/dL Assessment and Plan Plan: Assessment: 1. Chronic kidney disease stage IV with baseline creatinine near 3 secondary to biopsy-proven diabetic kidney disease. 2. Diarrhea. Recent C. difficile colitis. On oral vancomycin. 3. Diabetes mellitus. 4. Hypertension with chronic kidney disease. 5. Metabolic acidosis secondary to IV fluids, GI losses. 6. Anemia of chronic kidney disease. Plan: Maintain IV fluids. Change to bicarb drip. Add Aranesp. Hold losartan. Avoid nephrotoxins. Continue to monitor renal function and urine output.
--- NOTE | 2025-04-12 08:35 | P.PN ---
Subjective This is a 54-year-old female patient of Dr. Jayjay Jasso with past medical history of coronary artery disease status post stent to the right coronary artery, LAD and diagonal, hypertension, dyslipidemia, chronic systolic heart failure, cardiomyopathy with EF of 40 to 45% with prior inferior wall myocardial infarction, right bundle branch block and left anterior fascicular block, history of ovarian cancer. We have been asked to evaluate the patient for elevated troponins. Patient states that she came into the hospital because of abdominal pain. She was recently hospitalized at [facility] 2 weeks ago for C. difficile colitis. She does have a follow-up appointment set with Dr. Serrano in the office on 04/26. On her last visit on 01/19, patient had no symptoms at that time. Patient denies chest pain chest pressure or chest tight ness. No shortness of breath. Blood pressure 148/66, heart rate 81, pulse ox 96% on room air. Patient is status post 1 L of IV fluids and IV hydralazine for blood pressure. Patient is seen today in the emergency center waiting for a bed on the observation unit. -EKG: Sinus rhythm with left bundle branch block and left anterior fascicular block unchanged from previous. -CT abdomen and pelvis: Nonobstructing bilateral renal calculi versus vascular calcifications. No hydronephrosis. Nonspecific hepatomegaly. Fecalization of the small bowel without obstruction. Severe atherosclerotic calcifications. Ectatic abdominal aorta measuring 2.5 cm maximum diameter. -Laboratory studies: Troponin 0.182, 0.151, 0.149. WBC 15.6, hemoglobin 11, BUN 22 and creatinine 2.58 at baseline, glucose 604. Alkaline phosphatase 205. -Home cardiac medications: Amlodipine 10 mg daily, aspirin 81 mg daily, Coreg 25 mg twice daily, Plavix 75 mg daily, Jardiance 10 mg daily, hydralazine 50 mg 3 times daily, Imdur 60 mg daily, losartan 12.5 mg on Saturday. -Lexiscan Cardiolite stress test performed at [facility] on 07/30/2024 revealed reversible ischemia involving the inferior wall surrounded by remote insult. Films were reviewed at that time by Dr. Mckeon himself and he did not believe this demonstrated reversible ischemia but did demonstrate diaphragmatic attenuation. No cardiac catheterization was recommended at that time. -Echocardiogram performed 06/16/2024 at [facility] revealed normal left ventricular size and systolic function with severe hypertrophy. Mild mitral and tricuspid regurgitation. Mildly dilated aortic root. 04/12 Patient seen and examined. Patient denies any chest pain or pressure. No significant shortness of breath. Still having some diarrhea however better than yesterday. Receiving IV fluids at 75 cc/h. Has some lightheadedness when she stands up. Blood pressures better in the 120s to 140s. Awaiting 2D echo. Physical examination: Gen: This is a 54-year-old female in no acute respiratory distress. VS: reviewed HEENT: Head is atraumatic, normocephalic. Pupils equal, round. Sclerae is anicteric. NECK: Supple. No JVD. LUNGS: Clear to auscultation. No wheezes or rhonchi. No intercostal retractions. HEART: Regular rate and rhythm. No murmur. ABDOMEN: Soft No tenderness. EXTREMITIES: No pedal edema. No calf tenderness. NEUROLOGICAL: Patient is awake, alert and oriented x3. Assessment: Elevated troponin secondary to chronic kidney disease Abdominal pain Recent hospitalization at [facility] for C. difficile colitis Chronic kidney disease Coronary artery disease status post stent to the right coronary artery, LAD and diagonal Hypertension Dyslipidemia Chronic systolic heart failure, stable Ischemic cardiomyopathy with a EF of 40 to 45% Right bundle branch block and left anterior fascicular block History of ovarian cancer Plan: Resume patient's home cardiac medications Obtain 2-D echocardiogram and Doppler study to assess cardiac structure and function If EF remains low may need further adjustments for heart failure regimen. At the time of discharge, patient will follow up with Dr. Jasso as scheduled on 04/26. Objective - Vital Signs Vital signs: Vital Signs Temp 98.2 F 04/12/25 07:50 Pulse 68 04/12/25 07:50 Resp 16 04/12/25 07:50 BP 146/65 04/12/25 07:50 Pulse Ox 93 L 04/12/25 07:50 FiO2 Intake & Output 04/11/25 04/12/25 04/12/25 18:59 06:59 18:59 Weight 77.111 kg Other: # Voids 2 - Labs CBC & Chem 7: 04/12/25 05:23 04/12/25 05:23 Labs: Abnormal Lab Results - Last 24 Hours (Table) 04/11/25 04/11/25 04/11/25 Range/Units 00:01 09:31 11:38 WBC (4.50-10.00) X 10*3/uL RBC (4.10-5.20) X 10*6/uL Hgb (12.0-15.0) g/dL Hct (37.2-46.3) % MCHC (32.0-37.0) g/dL RDW (11.5-14.5) % MPV (9.5-12.2) FL Immature Gran # (0.00-0.04) X 10*3/uL Neutrophils # (1.80-7.70) X 10*3/uL Chloride (96-109) mmol/L Carbon Dioxide (21.6-31.8) mmol/L Creatinine (0.6-1.5) mg/dL Est GFR (CKD-EPI) (>=60) BUN/Creatinine Ratio (12.00-20.00) Ratio Glucose (70-110) mg/dL POC Glucose (mg/dL) 253 H (70-110) mg/dL Hemoglobin A1c 9.0 H (<=6.0) % Total Bilirubin (0.3-1.2) mg/dL Alkaline Phosphatase (41-126) U/L Troponin I 0.149 H* (0.000-0.034) ng/mL Total Protein (6.2-8.2) g/dL Albumin (3.8-4.9) g/dL Globulin (1.6-3.3) g/dL 04/11/25 04/11/25 04/12/25 Range/Units 16:58 20:11 05:23 WBC 13.71 H (4.50-10.00) X 10*3/uL RBC 3.10 L (4.10-5.20) X 10*6/uL Hgb 9.2 L (12.0-15.0) g/dL Hct 29.4 L (37.2-46.3) % MCHC 31.3 L (32.0-37.0) g/dL RDW 16.0 H (11.5-14.5) % MPV 12.5 H (9.5-12.2) FL Immature Gran # 0.10 H (0.00-0.04) X 10*3/uL Neutrophils # 9.17 H (1.80-7.70) X 10*3/uL Chloride (96-109) mmol/L Carbon Dioxide (21.6-31.8) mmol/L Creatinine (0.6-1.5) mg/dL Est GFR (CKD-EPI) (>=60) BUN/Creatinine Ratio (12.00-20.00) Ratio Glucose (70-110) mg/dL POC Glucose (mg/dL) 239 H 227 H (70-110) mg/dL Hemoglobin A1c (<=6.0) % Total Bilirubin (0.3-1.2) mg/dL Alkaline Phosphatase (41-126) U/L Troponin I (0.000-0.034) ng/mL Total Protein (6.2-8.2) g/dL Albumin (3.8-4.9) g/dL Globulin (1.6-3.3) g/dL 04/12/25 04/12/25 Range/Units 05:23 05:57 WBC (4.50-10.00) X 10*3/uL RBC (4.10-5.20) X 10*6/uL Hgb (12.0-15.0) g/dL Hct (37.2-46.3) % MCHC (32.0-37.0) g/dL RDW (11.5-14.5) % MPV (9.5-12.2) FL Immature Gran # (0.00-0.04) X 10*3/uL Neutrophils # (1.80-7.70) X 10*3/uL Chloride 112 H (96-109) mmol/L Carbon Dioxide 16.8 L (21.6-31.8) mmol/L Creatinine 3.3 H (0.6-1.5) mg/dL Est GFR (CKD-EPI) 16 L (>=60) BUN/Creatinine Ratio 7.06 L (12.00-20.00) Ratio Glucose 139 H (70-110) mg/dL POC Glucose (mg/dL) 153 H (70-110) mg/dL Hemoglobin A1c (<=6.0) % Total Bilirubin 0.2 L (0.3-1.2) mg/dL Alkaline Phosphatase 143 H (41-126) U/L Troponin I (0.000-0.034) ng/mL Total Protein 4.2 L (6.2-8.2) g/dL Albumin 2.7 L (3.8-4.9) g/dL Globulin 1.5 L (1.6-3.3) g/dL
[2025-04-12] MEDS ORDERED: LOSARTAN 25 MG TAB PO SCH (09:00)
[2025-04-12] MEDS: ASPIRIN 81 MG PO SCH (09:55)
[2025-04-12] MEDS: ENOXAPARIN 30 MG/0.3 ML SYRINGE SQ SCH (09:55)
[2025-04-12] MEDS: PANTOPRAZOLE 40 MG/10 ML VIAL IVP SCH (09:57)
[2025-04-12] MEDS: DEXTROSE 5% IN WATER 1,000 ML with SODIUM BICARB (1 MEQ/ML) 150 ML IV SCH (10:13)
[2025-04-12] MEDS: DARBEPOETIN ALFA 40 MCG/0.4 ML SYRINGE SQ SCH (10:14)
[2025-04-12 12:15] LABS: Glucose,Whole Blood 308 mg/dL (70-110)
--- NOTE | 2025-04-12 13:10 | CA ---
Transthoracic Echo Report Name: Leticia Langley Age: 54 Gender: F : 1970 Exam Date: 04/12/2025 09:16 Exam Location: [facility] Ht (in): 66 Wt (lb): 170 Ordering Physician: Cori Caba Attending/Referring Phys: [id number], Gertrudis Angle Furnaceman Keyona Brenner RDCS Procedure CPT: Indications: LVF, elevated trops Cardiac Hx: Technical Quality: Fair Contrast 1: Total Dose (mL): Contrast 2: Total Dose (mL): MEASUREMENTS (Male / Female) Normal Values 2D ECHO LV Diastolic Diameter PLAX 5.7 cm 4.2 - 5.9 / 3.9 - 5.3 cm LV Systolic Diameter PLAX 3.5 cm IVS Diastolic Thickness 2.3 cm 0.6 - 1.0 / 0.6 - 0.9 cm LVPW Diastolic Thickness 2.0 cm 0.6 - 1.0 / 0.6 - 0.9 cm LV Relative Wall Thickness 0.8 RV Internal Dim ED PLAX 2.9 cm LVOT Diameter 2.2 cm LA Systolic Diameter LX 5.3 cm 3.0 - 4.0 / 2.7 - 3.8 cm LV Diastolic Volume MOD BP 85.9 cm??? 67 - 155 / 56 - 104 cm??? LV Systolic Volume MOD BP 37.5 cm??? 22 - 58 / 19 - 49 cm??? LV Ejection Fraction MOD BP 56.4 % >= 55 % LV Cardiac Index MOD BP 1773.0 cm???/min???m??? LV Diastolic Volume MOD 4C 109.1 cm??? LV Systolic Volume MOD 4C 40.0 cm??? LV Ejection Fraction MOD 4C 63.3 % LV Cardiac Index MOD 4C 2527.3 cm???/min???m??? LV Diastolic Length 4C 8.3 cm LV Systolic Length 4C 6.3 cm LV Diastolic Volume MOD 2C 66.2 cm??? LV Systolic Volume MOD 2C 34.3 cm??? LV Ejection Fraction MOD 2C 48.2 % LV Cardiac Index MOD 2C 1167.7 cm???/min???m??? LV Diastolic Length 2C 8.7 cm LV Systolic Length 2C 6.7 cm LA Volume 87.8 cm??? 18 - 58 / 22 - 52 cm??? LA Volume Index 45.9 cm???/m??? 16 - 28 cm???/m??? M-MODE Aortic Root Diameter MM 4.1 cm LA Systolic Diameter MM 4.8 cm LA Ao Ratio MM 1.2 AV Cusp Separation MM 2.7 cm DOPPLER AV Peak Velocity 166.2 cm/s AV Peak Gradient 11.0 mmHg AV Mean Velocity 116.5 cm/s AV Mean Gradient 6.1 mmHg AV Velocity Time Integral 34.6 cm LVOT Peak Velocity 158.3 cm/s LVOT Peak Gradient 10.0 mmHg LVOT Velocity Time Integral 31.2 cm LVOT Stroke Volume 120.6 cm??? LVOT Stroke Volume Index 64.6 ml/m??? LVOT Cardiac Index 4415.6 cm???/min???m??? AV Area Cont Eq vti 3.5 cm??? AV Area Cont Eq pk 3.7 cm??? MV Area PHT 2.4 cm??? Mitral E Point Velocity 89.3 cm/s Mitral A Point Velocity 121.0 cm/s Mitral E to A Ratio 0.7 MV Deceleration Time 313.0 ms FINDINGS Left Ventricle Left ventricular ejection fraction is estimated at 55-60%. Severely increased septal wall thickness. Severely increased posterior wall thickness. Mildly increased left ventricular diastolic diameter. No obvious regional wall motion abnormalities. Left ventricular cavity size normal. Right Ventricle Normal right ventricular size and function. Unable to estimate the right ventricular systolic pressure. Right Atrium Mild right atrial dilatation. Left Atrium Severely increased left atrial diameter. Severely increased left atrial volume. Mitral Valve Mitral valve thickened. Moderate mitral regurgitation. No mitral stenosis. Aortic Valve Trileaflet aortic valve. No aortic valve stenosis or regurgitation. Tricuspid Valve Structurally normal tricuspid valve. No tricuspid stenosis. Trace tricuspid regurgitation. Pulmonic Valve Structurally normal pulmonic valve. Trace to mild pulmonic regurgitation. No pulmonic stenosis. Pericardium No pericardial or pleural effusion. Aorta Mild aortic dilatation at the level of the sinuses of valsalva (root) 4.1cm CONCLUSIONS Left ventricular ejection fraction 55 to 60% Severely increased left ventricular wall thickness Moderate to severely dilated left atrium Moderate mitral regurgitation Trace tricuspid regurgitation No pericardial effusion Aortic root 4.1 cm Previewed by: Dr. Eligio Mckeon DO (Electronically Signed) Final Date: 12 April 2025 13:09
[2025-04-12 17:38] LABS: Glucose,Whole Blood 266 mg/dL (70-110)
--- NOTE | 2025-04-12 18:11 | P.PN ---
Subjective Progress Note Date: 04/12/25 Leticia Langley is a 54-year-old female patient of Dr. Lima who is well- known to my services due to frequent hospitalizations who presented with concerns of weakness and diarrhea over the past few days patent. Patient was recently discharged from [facility] secondary to C. difficile. Patient reports that she did have improvement of symptoms and completed course of antibiotics. Patient has past medical history of diabetes melitis, noncompliance with medication, coronary artery disease, CVA, chronic kidney disease, fibromyalgia, GERD, hyperlipidemia, hypertension, sleep apnea and anxiety and depression. Abdominal pelvis CT completed showing nonobstructing bilateral renal calculi no hydronephrosis nonspecific hepatomegaly fecalization of the small bowel is noted without obstruction. Lab work completed showing white blood cell 15.68, hemoglobin 11.0, sodium 131, creatinine 2.58, bun 22, glucose 604, troponin 0.150. At this time patient will be admitted patient started on IV fluid. Sliding scale insulin added. Consult placed for cardiology, nephrology and infectious disease services stool for C. difficile ordered On 04/12/2025 patient was seen and examined on the medical floor she is alert and oriented x 3 in no apparent distress she is still complaining of abdominal discomfort and occasional diarrhea otherwise she denies any complaints there is no fever or chills no headache or dizziness no chest pain no shortness of breath no cough no nausea or vomiting no blood in the stools and no urinary symptoms Objective - Vital Signs Vital signs: Vital Signs Temp 98.4 F 04/12/25 13:47 Pulse 68 04/12/25 13:47 Resp 16 04/12/25 13:47 BP 151/72 04/12/25 13:47 Pulse Ox 97 04/12/25 13:47 FiO2 Intake & Output 04/11/25 04/12/25 04/12/25 18:59 06:59 18:59 Intake Total 240 Balance 240 Weight 77.111 kg Intake: Oral 240 Other: # Voids 2 - Exam In general patient is alert and oriented x 3 in no distress HEENT head normocephalic and atraumatic Neck is supple no JVD no goiter no lymphadenopathy no carotid bruit Chest examination is clear to auscultation no crackles no wheezing Cardiac exam reveals regular heart sounds S1 and S2 no gallops no murmurs Abdomen is soft nontender no organomegaly with normal bowel sounds Extremity exam reveals no edema no cyanosis or clubbing Neurological examination reveals no gross focal deficits - Labs CBC & Chem 7: 04/12/25 05:23 04/12/25 05:23 Labs: Abnormal Lab Results - Last 24 Hours (Table) 04/11/25 04/11/25 04/11/25 Range/Units 00:01 16:58 20:11 WBC (4.50-10.00) X 10*3/uL RBC (4.10-5.20) X 10*6/uL Hgb (12.0-15.0) g/dL Hct (37.2-46.3) % MCHC (32.0-37.0) g/dL RDW (11.5-14.5) % MPV (9.5-12.2) FL Immature Gran # (0.00-0.04) X 10*3/uL Neutrophils # (1.80-7.70) X 10*3/uL Chloride (96-109) mmol/L Carbon Dioxide (21.6-31.8) mmol/L Creatinine (0.6-1.5) mg/dL Est GFR (CKD-EPI) (>=60) BUN/Creatinine Ratio (12.00-20.00) Ratio Glucose (70-110) mg/dL POC Glucose (mg/dL) 239 H 227 H (70-110) mg/dL Hemoglobin A1c 9.0 H (<=6.0) % Total Bilirubin (0.3-1.2) mg/dL Alkaline Phosphatase (41-126) U/L Total Protein (6.2-8.2) g/dL Albumin (3.8-4.9) g/dL Globulin (1.6-3.3) g/dL 04/12/25 04/12/25 04/12/25 Range/Units 05:23 05:23 05:57 WBC 13.71 H (4.50-10.00) X 10*3/uL RBC 3.10 L (4.10-5.20) X 10*6/uL Hgb 9.2 L (12.0-15.0) g/dL Hct 29.4 L (37.2-46.3) % MCHC 31.3 L (32.0-37.0) g/dL RDW 16.0 H (11.5-14.5) % MPV 12.5 H (9.5-12.2) FL Immature Gran # 0.10 H (0.00-0.04) X 10*3/uL Neutrophils # 9.17 H (1.80-7.70) X 10*3/uL Chloride 112 H (96-109) mmol/L Carbon Dioxide 16.8 L (21.6-31.8) mmol/L Creatinine 3.3 H (0.6-1.5) mg/dL Est GFR (CKD-EPI) 16 L (>=60) BUN/Creatinine Ratio 7.06 L (12.00-20.00) Ratio Glucose 139 H (70-110) mg/dL POC Glucose (mg/dL) 153 H (70-110) mg/dL Hemoglobin A1c (<=6.0) % Total Bilirubin 0.2 L (0.3-1.2) mg/dL Alkaline Phosphatase 143 H (41-126) U/L Total Protein 4.2 L (6.2-8.2) g/dL Albumin 2.7 L (3.8-4.9) g/dL Globulin 1.5 L (1.6-3.3) g/dL / Range/Units 12:14 WBC (4.50-10.00) X 10*3/uL RBC (4.10-5.20) X 10*6/uL Hgb (12.0-15.0) g/dL Hct (37.2-46.3) % MCHC (32.0-37.0) g/dL RDW (11.5-14.5) % MPV (9.5-12.2) FL Immature Gran # (0.00-0.04) X 10*3/uL Neutrophils # (1.80-7.70) X 10*3/uL Chloride (96-109) mmol/L Carbon Dioxide (21.6-31.8) mmol/L Creatinine (0.6-1.5) mg/dL Est GFR (CKD-EPI) (>=60) BUN/Creatinine Ratio (12.00-20.00) Ratio Glucose (70-110) mg/dL POC Glucose (mg/dL) 308 H (70-110) mg/dL Hemoglobin A1c (<=6.0) % Total Bilirubin (0.3-1.2) mg/dL Alkaline Phosphatase (41-126) U/L Total Protein (6.2-8.2) g/dL Albumin (3.8-4.9) g/dL Globulin (1.6-3.3) g/dL Assessment and Plan Assessment: 1. Weakness with diarrhea 2. Recent treatment for C. difficile colitis 3. Elevated troponins 4. Uncontrolled diabetes mellitus with hyperglycemia 5. Acute on chronic kidney disease 6. History of noncompliance 7. History of essential hypertension 8. History of CVA 9. History of essential hypertension 10. History of hyperlipidemia DVT prophylaxis Lovenox. GI prophylax Protonix Continue normal saline at 75 Stool for C. difficile ordered Consult placed for nephrology, infectious disease and cardiology services Repeat labs in a.m.
[2025-04-12 20:10] LABS: Glucose,Whole Blood 257 mg/dL (70-110)
[2025-04-12] MEDS: MELATONIN 5 MG TABLET PO PRN (22:32)
[2025-04-13 00:35] VITALS: RESP 16
[2025-04-13 05:54] LABS: Glucose,Whole Blood 207 mg/dL (70-110)
--- NOTE | 2025-04-13 06:22 | P.PN ---
Subjective Progress Note Date: 04/12/25 Principal diagnosis: Reason for follow-up is diarrhea with recent history of C. difficile Patient is a 54-year-old female with a past medical history significant for multiple disorders including diabetes fibromyalgia hypertension hyperlipidemia CVA and TIA patient mention she was admitted at [facility] December 2024 and at that time she was diagnosed with C. difficile colitis now presenting the hospital with abdominal pain and diarrhea. On today's evaluation that is 04/12/2025, patient has been afebrile, patient is breathing comfortably and is currently on room air, patient denies having any chest pain and cough, patient denies nausea vomiting circumventing some lower abdominal discomfort but no diarrhea today. Patient white count down to 13.71 creatinine 3.3 stool for C. difficile as well as culture not collected Objective - Vital Signs Vital signs: Vital Signs Temp 98.2 F 04/12/25 07:50 Pulse 68 04/12/25 07:50 Resp 16 04/12/25 07:50 BP 146/65 04/12/25 07:50 Pulse Ox 93 L 04/12/25 07:50 FiO2 Intake & Output 04/11/25 04/12/25 04/12/25 18:59 06:59 18:59 Intake Total 240 Balance 240 Weight 77.111 kg Intake: Oral 240 Other: # Voids 2 - Exam GENERAL DESCRIPTION: Middle-age female lying in bed in no distress RESPIRATORY SYSTEM: Unlabored breathing , decreased breath sounds at bases HEART: S1 S2 regular rate and rhythm , ABDOMEN: Soft , no tenderness EXTREMITIES: No edema feet - Labs CBC & Chem 7: 04/12/25 05:23 04/12/25 05:23 Labs: Abnormal Lab Results - Last 24 Hours (Table) 04/11/25 04/11/25 04/11/25 Range/Units 00:01 11:38 16:58 WBC (4.50-10.00) X 10*3/uL RBC (4.10-5.20) X 10*6/uL Hgb (12.0-15.0) g/dL Hct (37.2-46.3) % MCHC (32.0-37.0) g/dL RDW (11.5-14.5) % MPV (9.5-12.2) FL Immature Gran # (0.00-0.04) X 10*3/uL Neutrophils # (1.80-7.70) X 10*3/uL Chloride (96-109) mmol/L Carbon Dioxide (21.6-31.8) mmol/L Creatinine (0.6-1.5) mg/dL Est GFR (CKD-EPI) (>=60) BUN/Creatinine Ratio (12.00-20.00) Ratio Glucose (70-110) mg/dL POC Glucose (mg/dL) 253 H 239 H (70-110) mg/dL Hemoglobin A1c 9.0 H (<=6.0) % Total Bilirubin (0.3-1.2) mg/dL Alkaline Phosphatase (41-126) U/L Total Protein (6.2-8.2) g/dL Albumin (3.8-4.9) g/dL Globulin (1.6-3.3) g/dL 04/11/25 04/12/25 04/12/25 Range/Units 20:11 05:23 05:23 WBC 13.71 H (4.50-10.00) X 10*3/uL RBC 3.10 L (4.10-5.20) X 10*6/uL Hgb 9.2 L (12.0-15.0) g/dL Hct 29.4 L (37.2-46.3) % MCHC 31.3 L (32.0-37.0) g/dL RDW 16.0 H (11.5-14.5) % MPV 12.5 H (9.5-12.2) FL Immature Gran # 0.10 H (0.00-0.04) X 10*3/uL Neutrophils # 9.17 H (1.80-7.70) X 10*3/uL Chloride 112 H (96-109) mmol/L Carbon Dioxide 16.8 L (21.6-31.8) mmol/L Creatinine 3.3 H (0.6-1.5) mg/dL Est GFR (CKD-EPI) 16 L (>=60) BUN/Creatinine Ratio 7.06 L (12.00-20.00) Ratio Glucose 139 H (70-110) mg/dL POC Glucose (mg/dL) 227 H (70-110) mg/dL Hemoglobin A1c (<=6.0) % Total Bilirubin 0.2 L (0.3-1.2) mg/dL Alkaline Phosphatase 143 H (41-126) U/L Total Protein 4.2 L (6.2-8.2) g/dL Albumin 2.7 L (3.8-4.9) g/dL Globulin 1.5 L (1.6-3.3) g/dL 04/12/25 Range/Units 05:57 WBC (4.50-10.00) X 10*3/uL RBC (4.10-5.20) X 10*6/uL Hgb (12.0-15.0) g/dL Hct (37.2-46.3) % MCHC (32.0-37.0) g/dL RDW (11.5-14.5) % MPV (9.5-12.2) FL Immature Gran # (0.00-0.04) X 10*3/uL Neutrophils # (1.80-7.70) X 10*3/uL Chloride (96-109) mmol/L Carbon Dioxide (21.6-31.8) mmol/L Creatinine (0.6-1.5) mg/dL Est GFR (CKD-EPI) (>=60) BUN/Creatinine Ratio (12.00-20.00) Ratio Glucose (70-110) mg/dL POC Glucose (mg/dL) 153 H (70-110) mg/dL Hemoglobin A1c (<=6.0) % Total Bilirubin (0.3-1.2) mg/dL Alkaline Phosphatase (41-126) U/L Total Protein (6.2-8.2) g/dL Albumin (3.8-4.9) g/dL Globulin (1.6-3.3) g/dL Assessment and Plan (1) Diarrhea Current Visit: Yes Status: Acute Code(s): R19.7 - DIARRHEA, UNSPECIFIED SNOMED Code(s): 45723947 (2) Leukocytosis Current Visit: No Status: Acute Code(s): D72.829 - ELEVATED WHITE BLOOD CELL COUNT, UNSPECIFIED SNOMED Code(s): 476322083 Plan: 1patient was in the hospital abdominal pain diarrhea with multiple loose stools per day in this patient who did have a recent history of C. difficile colitis about 2 months ago and high clinical suspicious for possible relapse/recurrence of C. difficile colitis 2-unfortunately stool for C. difficile and culture not collected 3-patient mention improvement in the diarrhea white count is trending down to continue oral vancomycin while waiting for the testing to be completed Dictation was produced using [employer]ivo[employer] software. please excuse any grammatical, word or spelling errors. Time with Patient: Less than 30
[2025-04-13 08:24] LABS: Magnesium 1.4 mg/dL (1.5-2.4)
[2025-04-13 08:25] LABS: BUN/Creat Ratio 6.33 Ratio (12.00-20.00); Blood Urea Nitrogen 24.7 mg/dL (9.0-27.0); Carbon Dioxide 22.3 mmol/L (21.6-31.8); Chloride 105 mmol/L (96-109); Glucose 234 mg/dL (70-110); Potassium 4.6 mmol/L (3.5-5.5); Sodium 135 mmol/L (135-145)
--- NOTE | 2025-04-13 11:58 | P.PN ---
Subjective Patient is seen in follow-up for acute kidney injury on chronic kidney disease. Patient has chronic kidney disease stage IV baseline creatinine near 3. Renal function worsening with creatinine 3.9. Has been voiding. Receiving IV fluids. No diarrhea overnight. Vital signs are stable. General: No acute distress. HEENT: Head exam is unremarkable. LUNGS: No audible rhonchi or wheezes. HEART: Rate and Rhythm are regular. ABDOMEN: Nontender. EXTREMITITES: No edema. Objective - Vital Signs Vital signs: Vital Signs Temp 98.2 F 04/13/25 07:20 Pulse 61 04/13/25 07:20 Resp 16 04/13/25 07:20 BP 144/56 04/13/25 07:20 Pulse Ox 96 04/13/25 07:20 FiO2 Intake & Output 04/12/25 04/13/25 04/13/25 18:59 06:59 18:59 Intake Total 598 118 Balance 598 118 Intake: Oral 598 118 Other: # Voids 2 2 - Labs CBC & Chem 7: 04/12/25 05:23 04/13/25 05:12 Labs: Abnormal Lab Results - Last 24 Hours (Table) 04/12/25 04/12/25 04/12/25 Range/Units 12:14 17:36 20:08 Creatinine (0.6-1.5) mg/dL Est GFR (CKD-EPI) (>=60) BUN/Creatinine Ratio (12.00-20.00) Ratio Glucose (70-110) mg/dL POC Glucose (mg/dL) 308 H 266 H 257 H (70-110) mg/dL Magnesium (1.5-2.4) mg/dL 04/13/25 04/13/25 Range/Units 05:12 05:52 Creatinine 3.9 H (0.6-1.5) mg/dL Est GFR (CKD-EPI) 13 L (>=60) BUN/Creatinine Ratio 6.33 L (12.00-20.00) Ratio Glucose 234 H (70-110) mg/dL POC Glucose (mg/dL) 207 H (70-110) mg/dL Magnesium 1.4 L (1.5-2.4) mg/dL Assessment and Plan Plan: Assessment: 1. Chronic kidney disease stage IV with baseline creatinine near 3 secondary to biopsy-proven diabetic kidney disease. 2. Diarrhea. Recent C. difficile colitis. On oral vancomycin. 3. Diabetes mellitus. 4. Hypertension with chronic kidney disease. 5. Metabolic acidosis secondary to IV fluids, GI losses. Improved with bicarb drip. 6. Anemia of chronic kidney disease. On Aranesp. 7. Acute kidney injury secondary to ATN. Creatinine 3.9 today. Rule out urinary retention. No hydronephrosis noted on CT. 8. Chronic diastolic CHF with moderate mitral regurgitation. Plan: Change fluids back to normal saline. Add oral bicarb. Continue to hold losartan. Avoid nephrotoxins. Continue to monitor renal function and urine output. Check bladder scan for fluid or urinary retention.
--- NOTE | 2025-04-13 12:25 | P.PN ---
Subjective Progress Note Date: 04/13/25 Leticia Langley is a 54-year-old female patient of Dr. Lima who is well- known to my services due to frequent hospitalizations who presented with concerns of weakness and diarrhea over the past few days patent. Patient was recently discharged from [facility] secondary to C. difficile. Patient reports that she did have improvement of symptoms and completed course of antibiotics. Patient has past medical history of diabetes melitis, noncompliance with medication, coronary artery disease, CVA, chronic kidney disease, fibromyalgia, GERD, hyperlipidemia, hypertension, sleep apnea and anxiety and depression. Abdominal pelvis CT completed showing nonobstructing bilateral renal calculi no hydronephrosis nonspecific hepatomegaly fecalization of the small bowel is noted without obstruction. Lab work completed showing white blood cell 15.68, hemoglobin 11.0, sodium 131, creatinine 2.58, bun 22, glucose 604, troponin 0.150. At this time patient will be admitted patient started on IV fluid. Sliding scale insulin added. Consult placed for cardiology, nephrology and infectious disease services stool for C. difficile ordered On 04/12/2025 patient was seen and examined on the medical floor she is alert and oriented x 3 in no apparent distress she is still complaining of abdominal discomfort and occasional diarrhea otherwise she denies any complaints there is no fever or chills no headache or dizziness no chest pain no shortness of breath no cough no nausea or vomiting no blood in the stools and no urinary symptoms On 2024 patient is alert and oriented x 3. Patient denies any further episodes of diarrhea. Unable to do stool C. difficile due to formed stools. Creatinine increasing to 3.9 bun 24.7. Will continue to monitor patient. Patient denies chest pain. Patient denies shortness of breath. Patient denies any urinary burning or frequency Objective - Vital Signs Vital signs: Vital Signs Temp 98.2 F 04/13/25 07:20 Pulse 61 04/13/25 07:20 Resp 16 04/13/25 07:20 BP 144/56 04/13/25 07:20 Pulse Ox 96 04/13/25 07:20 FiO2 Intake & Output 04/12/25 04/13/25 04/13/25 18:59 06:59 18:59 Intake Total 598 118 Output Total 21 Balance 598 97 Intake: Oral 598 118 Output: Post Void Residual 21 Other: # Voids 2 2 - Exam In general patient is alert and oriented x 3 in no distress HEENT head normocephalic and atraumatic Neck is supple no JVD no goiter no lymphadenopathy no carotid bruit Chest examination is clear to auscultation no crackles no wheezing Cardiac exam reveals regular heart sounds S1 and S2 no gallops no murmurs Abdomen is soft nontender no organomegaly with normal bowel sounds Extremity exam reveals no edema no cyanosis or clubbing Neurological examination reveals no gross focal deficits - Labs CBC & Chem 7: 04/12/25 05:23 04/13/25 05:12 Labs: Abnormal Lab Results - Last 24 Hours (Table) 04/12/25 04/12/25 04/13/25 Range/Units 17:36 20:08 05:12 Creatinine 3.9 H (0.6-1.5) mg/dL Est GFR (CKD-EPI) 13 L (>=60) BUN/Creatinine Ratio 6.33 L (12.00-20.00) Ratio Glucose 234 H (70-110) mg/dL POC Glucose (mg/dL) 266 H 257 H (70-110) mg/dL Magnesium 1.4 L (1.5-2.4) mg/dL 04/13/25 Range/Units 05:52 Creatinine (0.6-1.5) mg/dL Est GFR (CKD-EPI) (>=60) BUN/Creatinine Ratio (12.00-20.00) Ratio Glucose (70-110) mg/dL POC Glucose (mg/dL) 207 H (70-110) mg/dL Magnesium (1.5-2.4) mg/dL Assessment and Plan Assessment: 1. Weakness with diarrhea 2. Recent treatment for C. difficile colitis 3. Elevated troponins 4. Uncontrolled diabetes mellitus with hyperglycemia 5. Acute on chronic kidney disease 6. History of noncompliance 7. History of essential hypertension 8. History of CVA 9. History of essential hypertension 10. History of hyperlipidemia DVT prophylaxis Lovenox. GI prophylax Protonix Continue normal saline at 75 Stool for C. difficile ordered Consult placed for nephrology, infectious disease and cardiology services Repeat labs in a.m.
[2025-04-13 12:33] LABS: Glucose,Whole Blood 318 mg/dL (70-110)
[2025-04-13] MEDS: SODIUM CHLORIDE 0.9% 1,000 ML IV SCH (12:50)
[2025-04-13] MEDS: SODIUM BICARBONATE TAB 650 MG TAB PO SCH (12:50)
--- NOTE | 2025-04-13 13:37 | P.PN ---
Subjective HISTORY OF PRESENT ILLNESS: This is a 54-year-old female patient of Dr. Jayjay Jasso with past medical history of coronary artery disease status post stent to the right coronary artery, LAD and diagonal, hypertension, dyslipidemia, chronic systolic heart failure, cardiomyopathy with EF of 40 to 45% with prior inferior wall myocardial infarction, right bundle branch block and left anterior fascicular block, history of ovarian cancer. We have been asked to evaluate the patient for elevated troponins. Patient states that she came into the hospital because of abdominal pain. She was recently hospitalized at [facility] 2 weeks ago for C. difficile colitis. She does have a follow-up appointment set with Dr. Serrano in the office on 04/26. On her last visit on 01/19, patient had no symptoms at that time. Patient denies chest pain chest pressure or chest tightness. No shortness of breath. Blood pressure 148/66, heart rate 81, pulse ox 96% on room air. Patient is status post 1 L of IV fluids and IV hydralazine for blood pressure. Patient is seen today in the emergency center waiting for a bed on the observation unit. -EKG: Sinus rhythm with left bundle branch block and left anterior fascicular block unchanged from previous. -CT abdomen and pelvis: Nonobstructing bilateral renal calculi versus vascular calcifications. No hydronephrosis. Nonspecific hepatomegaly. Fecalization of the small bowel without obstruction. Severe atherosclerotic calcifications. Ectatic abdominal aorta measuring 2.5 cm maximum diameter. -Laboratory studies: Troponin 0.182, 0.151, 0.149. WBC 15.6, hemoglobin 11, BUN 22 and creatinine 2.58 at baseline, glucose 604. Alkaline phosphatase 205. -Home cardiac medications: Amlodipine 10 mg daily, aspirin 81 mg daily, Coreg 25 mg twice daily, Plavix 75 mg daily, Jardiance 10 mg daily, hydralazine 50 mg 3 times daily, Imdur 60 mg daily, losartan 12.5 mg on Saturday. -Lexiscan Cardiolite stress test performed at [facility] on 07/30/2024 revealed reversible ischemia involving the inferior wall surrounded by remote insult. Films were reviewed at that time by Dr. Mckeon himself and he did not believe this demonstrated reversible ischemia but did demonstrate diaphragmatic attenuation. No cardiac catheterization was recommended at that time. -Echocardiogram performed 06/16/2024 at [facility] revealed normal left ventricular size and systolic function with severe hypertrophy. Mild mitral and tricuspid regurgitation. Mildly dilated aortic root. 04/12 Patient seen and examined. Patient denies any chest pain or pressure. No sign ificant shortness of breath. Still having some diarrhea however better than yesterday. Receiving IV fluids at 75 cc/h. Has some lightheadedness when she stands up. Blood pressures better in the 120s to 140s. Awaiting 2D echo. 04/13/2025 Patient examined this morning at bedside. Patient denies chest pain or pressure. Denies SOB. No abdominal pain or diarrhea. Echocardiogram completed revealing ejection fraction 55 to 60%, moderate mitral regurgitation, trace tricuspid regurgitation, aortic root 4.1 cm PHYSICAL EXAM: VITAL SIGNS: Reviewed. GENERAL: Well-developed in no acute distress. NECK: Supple. No JVD or thyromegaly LUNGS: Respirations even and unlabored. Lungs essentially clear to auscultation bilaterally. HEART: Regular rate and rhythm. S1 and S2 heard. EXTREMITIES: Normal range of motion. No clubbing or cyanosis. Peripheral pulses intact. No lower extremity edema ASSESSMENT: Elevated troponin secondary to chronic kidney disease/poor renal clearance, no myocardial injury or ischemia Abdominal pain Recent hospitalization at [facility] for C. difficile colitis Chronic kidney disease Coronary artery disease status post stent to the right coronary artery, LAD and diagonal Hypertension Dyslipidemia Chronic systolic heart failure, stable Ischemic cardiomyopathy with a EF of 40 to 45% Right bundle branch block and left anterior fascicular block History of ovarian cancer PLAN: Continue current cardiac medications Patient is stable from a cardiac standpoint with no further inpatient recommendations We will sign off. Please reconsult if needed. Nurse practitioner note has been reviewed by physician. Signing provider agrees with the documented findings, assessment, and plan of care documented by DIGITAL RESEARCH ANALYST as a scribe. Objective - Vital Signs Vital signs: Vital Signs Temp 98.2 F 04/13/25 07:20 Pulse 61 04/13/25 07:20 Resp 16 04/13/25 07:20 BP 144/56 04/13/25 07:20 Pulse Ox 96 04/13/25 07:20 FiO2 Intake & Output 04/12/25 04/13/25 04/13/25 18:59 06:59 18:59 Intake Total 598 118 Balance 598 118 Intake: Oral 598 118 Other: # Voids 2 2 - Labs CBC & Chem 7: 04/12/25 05:23 04/13/25 05:12 Labs: Abnormal Lab Results - Last 24 Hours (Table) 04/12/25 04/12/25 04/12/25 Range/Units 12:14 17:36 20:08 Creatinine (0.6-1.5) mg/dL Est GFR (CKD-EPI) (>=60) BUN/Creatinine Ratio (12.00-20.00) Ratio Glucose (70-110) mg/dL POC Glucose (mg/dL) 308 H 266 H 257 H (70-110) mg/dL Magnesium (1.5-2.4) mg/dL 04/13/25 04/13/25 Range/Units 05:12 05:52 Creatinine 3.9 H (0.6-1.5) mg/dL Est GFR (CKD-EPI) 13 L (>=60) BUN/Creatinine Ratio 6.33 L (12.00-20.00) Ratio Glucose 234 H (70-110) mg/dL POC Glucose (mg/dL) 207 H (70-110) mg/dL Magnesium 1.4 L (1.5-2.4) mg/dL
[2025-04-13] MEDS: HYDROcodone/APAP 7.5-325MG 1 EACH TAB PO PRN (13:39)
--- NOTE | 2025-04-13 14:29 | P.PN ---
Subjective Progress Note Date: 04/13/25 Principal diagnosis: Reason for follow-up is diarrhea with recent history of C. difficile Patient is a 54-year-old female with a past medical history significant for multiple disorders including diabetes fibromyalgia hypertension hyperlipidemia CVA and TIA patient mention she was admitted at [facility] December 2024 and at that time she was diagnosed with C. difficile colitis now presenting the hospital with abdominal pain and diarrhea. On today's evaluation that is 04/13/2025, Patient is afebrile this morning patient denies having any chest pain shortness of breath or cough, the patient is currently on room air, patient mention improvement abdominal pain no nausea vomiting no further diarrhea did have soft bowel movement. Patient did have a creatinine of 3.9 stool studies not completed Objective - Vital Signs Vital signs: Vital Signs Temp 98.2 F 04/13/25 07:20 Pulse 61 04/13/25 07:20 Resp 16 04/13/25 07:20 BP 144/56 04/13/25 07:20 Pulse Ox 96 04/13/25 07:20 FiO2 Intake & Output 04/12/25 04/13/25 04/13/25 18:59 06:59 18:59 Intake Total 598 118 Balance 598 118 Intake: Oral 598 118 Other: # Voids 2 2 - Exam GENERAL DESCRIPTION: Middle-age female lying in bed in no distress RESPIRATORY SYSTEM: Unlabored breathing , decreased breath sounds at bases HEART: S1 S2 regular rate and rhythm , ABDOMEN: Soft , no tenderness EXTREMITIES: No edema feet - Labs CBC & Chem 7: 04/12/25 05:23 04/13/25 05:12 Labs: Abnormal Lab Results - Last 24 Hours (Table) 04/12/25 04/12/25 04/13/25 Range/Units 17:36 20:08 05:12 Creatinine 3.9 H (0.6-1.5) mg/dL Est GFR (CKD-EPI) 13 L (>=60) BUN/Creatinine Ratio 6.33 L (12.00-20.00) Ratio Glucose 234 H (70-110) mg/dL POC Glucose (mg/dL) 266 H 257 H (70-110) mg/dL Magnesium 1.4 L (1.5-2.4) mg/dL 04/13/25 Range/Units 05:52 Creatinine (0.6-1.5) mg/dL Est GFR (CKD-EPI) (>=60) BUN/Creatinine Ratio (12.00-20.00) Ratio Glucose (70-110) mg/dL POC Glucose (mg/dL) 207 H (70-110) mg/dL Magnesium (1.5-2.4) mg/dL Assessment and Plan (1) Diarrhea Current Visit: Yes Status: Acute Code(s): R19.7 - DIARRHEA, UNSPECIFIED SNOMED Code(s): 05208021 (2) Leukocytosis Current Visit: No Status: Acute Code(s): D72.829 - ELEVATED WHITE BLOOD CELL COUNT, UNSPECIFIED SNOMED Code(s): 909503128 Plan: 1patient was in the hospital abdominal pain diarrhea with multiple loose stools per day in this patient who did have a recent history of C. difficile colitis about 2 months ago and high clinical suspicious for possible relapse/recurrence of C. difficile colitis 2-patient did have a formed bowel movement that required given C. difficile 3 recommend to discontinue oral vancomycin we will give Rocephin and Flagyl while inpatient transition to oral Ceftin and Flagyl on discharge this was discussed with the GARB[employer]POT WORKER for admitting team Dictation was produced using [employer] dictation software. please excuse any grammatical, word or spelling errors. Time with Patient: Less than 30
[2025-04-13 15:22] VITALS: BP 126/69; PULSE 65; TEMP 97.8
[2025-04-13] MEDS: metroNIDAZOLE 500 MG TAB PO SCH (16:45)
[2025-04-13 17:34] LABS: Glucose,Whole Blood 219 mg/dL (70-110)
[2025-04-13 20:04] LABS: Glucose,Whole Blood 276 mg/dL (70-110)
[2025-04-13] MEDS ORDERED: LACOSAMIDE 50 MG TABLET PO SCH (21:00)
[2025-04-14] MEDS ORDERED: CITALOPRAM HYDROBROMIDE 20 MG TAB PO SCH (09:00)
== END 2025-04-13 20:40 | disposition left against medical advice (07) | DRG 249 ==
LOC: EC 23:20 → 6NMEDSUR 04-11 04:22 → OBSVTOIN 04-11 04:23 → 6NMEDSUR 04-11 13:46
PROVIDERS: ADMIT Internal Medicine; ATTEND Internal Medicine
DX: R19.7 Diarrhea, unspecified (principal); N18.4 Chronic kidney disease, stage 4 (severe); I69.351 Hemiplegia and hemiparesis following cerebral infarction affecting right dominant side; Z53.29 Procedure and treatment not carried out because of patient's decision for other reasons; D63.1 Anemia in chronic kidney disease; E11.22 Type 2 diabetes mellitus with diabetic chronic kidney disease; E11.65 Type 2 diabetes mellitus with hyperglycemia; E78.5 Hyperlipidemia, unspecified; E86.1 Hypovolemia; E87.1 Hypo-osmolality and hyponatremia; E87.20 Acidosis, unspecified; F32.A Depression, unspecified; F40.240 Claustrophobia; G25.81 Restless legs syndrome; I13.0 Hypertensive heart and chronic kidney disease with heart failure and stage 1 through stage 4 chronic kidney disease, or unspecified chronic kidney disease; K21.9 Gastro-esophageal reflux disease without esophagitis; I25.10 Atherosclerotic heart disease of native coronary artery without angina pectoris; I25.2 Old myocardial infarction; I25.5 Ischemic cardiomyopathy; I45.2 Bifascicular block; I50.42 Chronic combined systolic (congestive) and diastolic (congestive) heart failure; I77.810 Thoracic aortic ectasia; M79.7 Fibromyalgia; N17.0 Acute kidney failure with tubular necrosis; N20.0 Calculus of kidney; Z79.02 Long term (current) use of antithrombotics/antiplatelets; Z79.4 Long term (current) use of insulin; Z79.82 Long term (current) use of aspirin; Z79.84 Long term (current) use of oral hypoglycemic drugs; Z79.899 Other long term (current) drug therapy; Z82.49 Family history of ischemic heart disease and other diseases of the circulatory system; Z85.43 Personal history of malignant neoplasm of ovary; Z86.19 Personal history of other infectious and parasitic diseases; Z90.710 Acquired absence of both cervix and uterus; Z91.148 Patient's other noncompliance with medication regimen for other reason; Z96.41 Presence of insulin pump (external) (internal); Z95.5 Presence of coronary angioplasty implant and graft; Z90.49 Acquired absence of other specified parts of digestive tract; Z98.51 Tubal ligation status
CPT/HCPCS: 36415; 74176; 80048; 80053; 81001; 82150; 83036; 83605; 83690; 83735; 84484; 85025; 93005; 93306; 96361; 96374; 96375; 96376; 99285